=== PATIENT | male | born 1940 | race Caucasian/White ===

== ENCOUNTER 2022-08-26 10:56 | Outpatient (OUT) | payer MEDICARE, SELFPAY | END 2022-08-26 10:57 | LOC: WC 10:56 | PROVIDERS: PCP Internal Medicine; Visit Provider Physician Assistant | DX: L60.3 Nail dystrophy (principal) | CPT/HCPCS: 11721 ==

== ENCOUNTER 2022-11-02 18:17 | Emergency (ER) | payer MEDICARE, SELFPAY ==
[2022-11-02 18:14] VITALS: BP 105/51; PULSE 68; RESP 20; TEMP 36.9; O2SAT 97; BMI 35.4
[2022-11-02 18:19] VITALS: O2SAT 98
--- NOTE | 2022-11-02 18:28 | CT_ITS ---
The [address] [address] Patient Name: NAT MOORE MRN: [id number] date: 1940 Sex: M Assigned Patient Location: ER Current Patient Location: ED.MAIN Accession/Order Number: [id number] Exam Date: 11/02/2022 18:40 Report Date: 11/02/2022 19:11 At the request of: SUJIT GR Procedure: CT lumbar spine wo con EXAM: CT lumbar spine wo con HISTORY: fall, low back pain COMPARISON: Lumbar spine CT 09/03/2021 TECHNIQUE: Axial CT imaging is performed. Sagittal and coronal reformatted/reconstructed sequences were additionally performed. FINDINGS: Again demonstrated is multilevel intervertebral disc space narrowing, endplate and facet arthrosis. Multilevel vacuum disc. Vertebral body heights and alignments are unremarkable with no acute change compared with the prior study. Age-related changes of the sacroiliac joints. No visualized prevertebral or paraspinal edema or collection. No visualized muscle hematoma. Age-related muscle atrophy. The superficial subcutaneous soft tissues are free of acute edema, hematoma, mass or cyst. Atherosclerosis of the vascular structures. No visualized intra-abdominal fluid. The kidneys are atrophic. CT/CT lumbar spine wo con IMPRESSION: No visualized acute abnormality Electronically authenticated by: ELIUD KAUR Date: 11/02/2022 19:11
--- NOTE | 2022-11-02 18:28 | ED.BACK1 ---
HPI - Back Pain/Injury General Chief Complaint: Back Pain/Injury Stated Complaint: BACK PAIN Time Seen by Provider: 11/02/22 18:17 Source: patient Mode of arrival: ambulance Limitations: no limitations History of Present Illness HPI Narrative: The patient was feeding the birds at his house, lost his footing and fell back, landing onto his buttocks and developing pain to the low back. No head injury or LOC. He could not get up so EMS was called. No injuries to any of the extremities. he denies any chesk pain, neck pain, headache, mid or upper back pain, pain in the hips or pelvis. Related Data Allergies Allergy/AdvReac Type Severity Reaction Status Date / Time Penicillins Allergy Intermediate Verified 11/02/22 18:13 Exam Narrative Exam Narrative: Nurses note and vital signs reviewed and patient is not hypoxic. General: The patient appears well and in no apparent distress. Patient is resting comfortably on cart. GCS = 15. Skin: Warm, dry, no pallor noted. Head: Normocephalic, atraumatic Neck: Supple, trachea mid-line. Full ROM and no cervical spinal tenderness. Eyes: PERRLA, EOMI ENT: TMs clear, no hemotympanum detected, no blood in posterior oropharynx Cardiovascular: Regular Rate and Rhythm Respiratory: Patient is in no distress, no accessory muscle use, lungs are clear to auscultation, no wheezing, rales or rhonchi Chest Wall: no tenderness, no flail chest, contusion, abrasion, or signs of trauma. Back: No thoracic tenderness to palpation. Midline lumbar tenderness to palpation without step-off. No abrasions or ecchymosis noted to the back or buttocks. Musculoskeletal: no sign of long bone fracture, no tenderness, no swelling. Pulses at femoral, DP, PT, and popliteal were 2+ bilaterally. Moves all four extremities in all modalities with 5/5 strength. 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 Psychiatric: Cooperative Constitutional Vital Signs, click to edit/add: Last Vital Signs Temp 98.5 F 11/02/22 18:14 Pulse 68 11/02/22 18:14 Resp 20 11/02/22 18:14 BP 105/51 11/02/22 18:14 Pulse Ox 98 11/02/22 18:19 O2 Del Method Room Air 11/02/22 18:19 Course Vital Signs Vital signs: Vital Signs Temperature 98.5 F 11/02/22 18:14 Pulse Rate 68 11/02/22 18:14 Respiratory Rate 20 11/02/22 18:14 Blood Pressure 105/51 11/02/22 18:14 Pulse Oximetry 97 11/02/22 18:14 Oxygen Delivery Method Room Air 11/02/22 18:14 Temperature 98.5 F 11/02/22 18:14 Pulse Rate 68 11/02/22 18:14 Respiratory Rate 20 11/02/22 18:14 Blood Pressure 105/51 11/02/22 18:14 Pulse Oximetry 98 11/02/22 18:19 Oxygen Delivery Method Room Air 11/02/22 18:19 MDM - Back Pain/Injury MDM Narrative Medical decision making narrative: Patient sent for CT scanning of the lumber spine. He was ordered to receive Tylenol for the pain. CT pending. Patient signed out to Dr Welch at shift change to review CT result and determine appropriate disposition. Discharge Plan Discharge Chief Complaint: Back Pain/Injury Clinical Impression: Low back pain Patient Disposition: Still a Patient Referrals: JASON CRUZ [Primary Care Provider] - 1 week
[2022-11-02] MEDS: ACETAMINOPHEN 500 MG TABLET 1000 MG PO (18:59)
--- NOTE | 2022-11-02 19:20 | PC.NURSE ---
States chronic back pain but today worse since fall. Tender with palpation at nap of neck and low sacral area.
[2022-11-02 19:22] VITALS: BP 130/54; PULSE 55; RESP 18; O2SAT 100
[2022-11-02 20:16] VITALS: BP 118/54; PULSE 58; RESP 20; O2SAT 100
== END 2022-11-02 23:25 | disposition home or self-care (01) ==
PROVIDERS: Emergency Provider Emergency Medicine; PCP Internal Medicine
DX: M54.50 Low back pain, unspecified (principal); Z91.81 History of falling
CPT/HCPCS: 72131; 99284

== ENCOUNTER 2022-11-04 12:54 | Outpatient (OUT) | payer MEDICARE, SELFPAY | END 2022-11-04 12:55 | disposition home or self-care (01) | LOC: WC 12:54 | PROVIDERS: PCP Internal Medicine; Visit Provider Physician Assistant | DX: L60.3 Nail dystrophy (principal) | CPT/HCPCS: 11721 ==

== ENCOUNTER 2023-01-21 13:59 | Outpatient (OUT) | payer MEDICARE, SELFPAY | END 2023-01-21 14:00 | disposition home or self-care (01) | LOC: WC 13:59 | PROVIDERS: PCP Internal Medicine; Visit Provider Physician Assistant | DX: E11.40 Type 2 diabetes mellitus with diabetic neuropathy, unspecified (principal); E11.65 Type 2 diabetes mellitus with hyperglycemia; L60.3 Nail dystrophy | CPT/HCPCS: 11721 ==

== ENCOUNTER 2023-04-09 13:29 | Outpatient (OUT) | payer MEDICARE, SELFPAY ==
--- OUTSIDE RECORDS SUMMARY | 2023-04-09 13:33 | XMS_ITS | CCD ---
Author Name Unknown Address [id number] [place] [address] Organization [facility] Team Providers Care Vp Platforms Name Role Phone JUAN PABLO ALANIZ Primary Care Physician DR JUAN PABLO ALANIZ Primary Care Unavailable LUCIAN ., AI Admitting Unavailable LUCIAN ., AI Attending Unavailable KOBY ., ADELAIDA MORGAN Consulting UnavailMANDIE Burdick Attending Unavailable MANDIE NOBLE Admitting Unavailable ANTHONY, DR GOMEZ Primary Care Unavailable MANDIE NOBLE Admitting Unavailable MANDIE NOBLE Attending Unavailable ANTHONY, DR GOMEZ Primary Care Unavailable OMAR, DR SPARKLE Schultz Consulting Unavailable MAILE ., DR BECKETT Admitting Unavailable MAILE ., DR BECKETT Attending Unavailable ANTHONY, DR GOMEZ Primary Care Unavailable ANTHONY, DR GOMEZ Primary Care Unavailable CARMINE, DR YAKELIN Lucas Consulting Unavailabl e CARMINE, DR YAKELIN Lucas Admitting Unavailabl e CARMINE, DR YAKELIN Lucas Attending Unavailabl e MAYITO ., CAROLIN Consulting Unavailable SHELLIE GIBSON Consulting Unavailable ZHANG ., DR VINH Freeman Attending Unavailable ANTHONY, DR GOMEZ Primary Care Unavailable ZHANG ., DR VINH Freeman Admitting Unavailable MANDIE NOBLE Attending Unavailable MANDIE NOBLE Admitting Unavailable ANTHONY, DR GOMEZ Primary Care Unavailable ZHANG ., DR VINH Freeman Attending Unavailable ANTHONY, DR GOMEZ Primary Care Unavailable ZHANG ., DR VINH Freeman Admitting Unavailable ZHANG ., DR VINH Freeman Consulting Unavailable ZHANG ., DR VINH Freeman Consulting Unavailable ZHANG ., DR VINH Freeman Admitting Unavailable HOLCOMB ., DR VINH Freeman Attending Unavailable ANTHONY, DR GOMEZ Primary Care Unavailable ZHANG ., DR VINH Freeman Admitting Unavailable ZHANG ., DR VINH Freeman Attending Unavailable SHELLIE GIBSON Consulting Unavailable ANTHONY, DR GOMEZ Primary Care Unavailable ALANIZ, DR GOMEZ Primary Care Unavailable HOLCOMB ., DR VINH Freeman Attending Unavailable HOLCOMB ., DR VINH Freeman Consulting Unavailable HOLCOMB ., DR VINH Freeman Admitting Unavailable ALANIZ, DR GOMEZ Primary Care Unavailable ROJAS ., SHELLIE Consulting Unavailable HOLCOMB ., DR VINH Freeman Admitting Unavailable HOLCOMB ., DR VINH Freeman Attending Unavailable HOLCOMB ., DR VINH Freeman Consulting Unavailable HOLCOMB ., DR VINH Freeman Admitting Unavailable HOLCOMB ., DR VINH Freeman Attending Unavailable ALANIZ, DR GOMEZ Primary Care Unavailable ALANIZ, DR GOMEZ Consulting Unavailable HOLCOMB ., DR VINH Freeman Admitting Unavailable HOLCOMB ., DR VINH Freeman Attending Unavailable ALANIZ, DR GOMEZ Primary Care Unavailable HOLCOMB ., DR VINH Freeman Consulting Unavailable ROJAS ., SHELLIE Consulting Unavailable HOLCOMB ., DR VINH Freeman Consulting Unavailable HOLCOMB ., DR VINH Freeman Admitting Unavailable HOLCOMB ., DR VINH Freeman Attending Unavailable ALANIZ, DR GOMEZ Primary Care Unavailable HAY ., DR BECKETT Consulting Unavailable HAY ., DR BECKETT Admitting Unavailable HAY ., DR BECKETT Attending Unavailable ALANIZ, DR GOMEZ Primary Care Unavailable HOLCOMB ., DR VINH Freeman Attending Unavailable ALANIZ, DR GOMEZ Primary Care Unavailable HOLCOMB ., DR VINH Freeman Admitting Unavailable ALANIZ, DR GOMEZ Primary Care Unavailable ALANIZ, DR GOMEZ Primary Care Unavailable LUCIAN ., AI Admitting Unavailable LUCIAN ., AI Attending Unavailable LUCIAN ., AI Consulting Unavailable ELIUD KAUR Consulting Unavailable ANTHONY, DR GOMEZ Primary Care Unavailable AIDE, MANDIE Goodman Admitting Unavailable AIDE, MANDIE Goodman Attending Unavailable ANTHONY, DR GOMEZ Primary Care Unavailable SAMANTHA, DR SAURABH Schultz Consulting Unavailable OMAR, DR SPARKLE Schultz Admitting Unavailable OMAR, DR SPARKLE Schultz Attending Unavailable LUCIAN ., AI Consulting Unavailable HOLCOMB ., DR VINH Freeman Admitting Unavailable HOLCOMB ., DR VINH Freeman Attending Unavailable ALANIZ, DR GOMEZ Primary Care Unavailable HOLCOMB ., DR VINH Freeman Attending Unavailable ALANIZ, DR GOMEZ Primary Care Unavailable HOLCOMB ., DR VINH Freeman Consulting Unavailable HOLCOMB ., DR VINH Freeman Admitting Unavailable ALANIZ, DR GOMEZ Primary Care Unavailable LAKSHMIPATHY ., NARENDRANATH Admitting Yasmeen vailable LAKSHMIPATHY ., NARANAATH Attending Yasmeen vailable ANTHONY, DR GOMEZ Primary Care Unavailable AIDE, MANDIE Goodman Admitting Unavailable AIDE, MANDIE Goodman Attending Unavailable ANTHONY, JUAN PABLO Basilio Attending Unavailable CHET SANDOVAL Attending Unavailable Umer RUFFIN Attending Unavailable Umer RUFFIN Attending Unavailable JONATHAN PINTO Attending Unavailable Umer RUFFIN Attending Unavailable JONATHAN PINTO Attending Unavailable Allergies Allergy Classification Reported Allergen(s) Allergy Type Date of Onset Reaction(s) Facility (7 sources) Penicillin; Translations: [penicillin] Drug Allergy 12-01-2021 Hives [facility] (2 sources) Penicillins Drug allergy (disorder) [facility] Repository Medications Current Medications Medication Drug Class(es) Dates Sig (Normalized) Sig (Original) allopurinol 300 mg oral tablet (5 sources) Xanthine Oxidase Inhibitor Start: 01-17-2021 take 1 mg by mouth once daily allopurinol 300 mg Tab mg tab(s), Oral, Daily, Refills(s) 0 Start Date: 01/17/21 Status: Ordered dicyclomine hydrochloride 20 mg oral tablet (5 sources) Anticholinergic Start: 01-17-2021 take 1 mg by mouth four times daily dicyclomine 20 mg Tab mg tab(s), Oral, QID, Refills(s) 0 Start Date: 01/17/21 Status: Ordered Docusate (5 sources) Start: 01-17-2021 docusate sodium Refills(s) 0 Start Date: 01/17/21 Status: Ordered donepezil hydrochloride 5 mg oral tablet (5 sources) Start: 01-17-2021 take 1 mg by mouth once daily at bedtime donepezil 5 mg Tab mg tab(s), Oral, Once a day (at bedtime), Refills(s) 0 Start Date: 01/17/21 Status: Ordered empagliflozin 10 mg / linagliptin 5 mg oral tablet (5 sources) Dipeptidyl Peptidase 4 Inhibitor, Sodium-Glucose Cotransporter 2 Inhibitor Start: 01-17-2021 take 1 tablet by mouth once daily in the morning Glyxambi 10 mg-5 mg oral tablet tab(s), Oral, qAM, Refill(s) 0 Start Date: 01/17/21 Status: Ordered gabapentin 100 mg oral capsule (5 sources) Anti-epileptic Agent Start: 01-17-2021 take 1 mg by mouth three times daily gabapentin 100 mg Cap mg cap(s), Oral, TID, Refills(s) 0 Start Date: 01/17/21 Status: Ordered glipiZIDE 10 mg oral tablet (5 sources) Sulfonylurea Start: 01-17-2021 take 1 mg by mouth once daily glipiZIDE 10 mg Tab mg tab(s), Oral, Daily, Refills(s) 0 Start Date: 01/17/21 Status: Ordered 24 hr metoprolol succinate 100 mg extended release oral tablet (5 sources) beta-Adrenergic Callum Start: 01-17-2021 take 1 mg by mouth once daily metoprolol 100 mg ER Tab mg tab(s), Oral, Daily, Refills(s) 0 Start Date: 01/17/21 Status: Ordered solifenacin succinate 10 mg oral tablet (2 sources) Cholinergic Muscarinic Antagonist Start: 09-16-2022 End: 09-11-2023 take 1 tablet by mouth once daily Vesicare 10 mg Tab 10 mg = 1 tab(s), Oral, Daily, X 30 day(s), # 30 tab(s), Refills(s) 11, Pharmacy: [facility], 167, cm, 09/16/22 15:10:00 EDT, Height/Length Dosing, 120, kg, 09/16/22 15:10:00 EDT, Weight Dosing Start Date: 09/16/22 Stop Date: 09/11/23 Status: Ordered Start: 04-26-2022 take 1 tablet by shannon th once daily Vesicare 5 mg Tab 5 mg = 1 tab(s), Oral, Daily, # 30 tab(s), Refills(s) 11, Pharmacy: [facility], 174, cm, 12/03/21 13:40:00 EDT, Height/Length Dosing, 112, kg, 12/03/21 13:40:00 EDT, Weight Dosing Start Date: 04/26/22 Status: Ordered tamsulosin hydrochloride 0.4 mg oral capsule (5 sources) alpha-Adrenergic Callum Start: 10-25-2021 take 1 capsule by mouth once daily Flomax 0.4 mg Cap 0.4 mg = 1 cap(s), Oral, Daily, # 90 cap(s), Refills(s) 3, Pharmacy: [facility], 174, cm, 09/03/21 13:40:00 EDT, Height/Length Dosing, 112.5, kg, 09/03/21 13:40:00 EDT, Weight Dosing Start Date: 10/25/21 Status: Ordered Start: 07-03-2021 take 1 capsule by mo uth once daily Flomax 0.4 mg Cap 0.4 mg = 1 cap(s), Oral, Daily, # 30 cap(s), Refills(s) 3, Pharmacy: [facility], 174, cm, 07/17/20 5:39:00 EDT, Height/Length Dosing, 112.5, kg, 07/17/20 5:39:00 EDT, Weight Dosing Start Date: 07/03/21 Status: Ordered 24 hr tolterodine tartrate 4 mg extended release oral capsule (4 sources) Cholinergic Muscarinic Antagonist Start: 01-17-2021 take 1 capsule by mouth once daily tolterodine 4 mg Cap-ER 4 mg = 1 cap(s), Oral, Daily, # 30 cap(s), Refills(s) 11, Pharmacy: [facility], 174, cm, 09/03/21 13:40:00 EDT, Height/Length Dosing, 112.5, kg, 09/03/21 13:40:00 EDT, Weight Dosing Start Date: 09/03/21 Status: Ordered Problems Active Problems Problem Classification Problem Date Documented Date Episodic/Chronic Acute and unspecified renal failure (1 source) Acute kidney failure, unspecified; Translations: [ACUTE KIDNEY FAILURE UNSPECIFIED] Onset: 07-31-2022 Episodic Chronic obstructive pulmonary disease and bronchiectasis (1 source) Chronic obstructive pulmonary disease, unspecified; Translations: [COPD UNSPECIFIED] Onset: 03-06-2022 Chronic Diabetes mellitus with complications (4 sources) Type 2 diabetes mellitus with diabetic neuropathy, unspecified; Translations: [Type 2 diabetes mellitus with other circulatory complications] Onset: 10-04-2021 Chronic Diabetes mellitus without complication (6 sources) Diabetes mellitus; Translations: [Type 2 diabetes mellitus without complications] Onset: 07-31-2022 07-17-2020 Chronic Diverticulosis and diverticulitis (5 sources) Diverticulitis 01-17-2021 Chronic Esophageal disorders (1 source) Gastro-esophageal reflux disease without esophagitis; Translations: [GERD WITHOUT ESOPHAGITIS] Onset: 12-11-2021 Chronic Essential hypertension (6 sources) Hypertensive disorder; Translations: [Essential (primary) hypertension] Onset: 03-06-2022 01-17-2021 Chronic Genitourinary symptoms and ill-defined conditions (8 sources) Urge incontinence; Translations: [Urge incontinence of urine] Onset: 12-03-2021 Chronic Genitourinary symptoms and ill-defined conditions (20 sources) Increased frequency of urination; Translations: [Frequency of micturition] Onset: 09-03-2021 Episodic Hyperplasia of prostate (13 sources) Benign prostatic hypertrophy with outflow obstruction; Translations: [Benign prostatic hyperplasia with lower urinary tract symptoms] Onset: 09-03-2021 Chronic Other aftercare (1 source) Other retirement (current) drug therapy; Translations: [OTH HALFWAY CURRENT DRUG THERAPY] Onset: 07-31-2022 Episodic Other aftercare (1 source) 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 terminal 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 controller (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) use of oral hypoglycemic drugs; Translations: [CERAMICS INSTRUCTOR USE ORAL HYPOGLYCEMIC DX] Onset: 07-31-2022 Episodic Other connective tissue disease (5 sources) Calcaneal spur 01-17-2021 Episodic Other connective tissue disease (4 sources) Other muscle spasm; Translations: [OTHER MUSCLE SPASM] Onset: 05-23-2022 Episodic Other diseases of veins and lymphatics (1 source) Lymphedema, not elsewhere classified; Translations: [LYMPHEDEMA NOT ELSEWHERE CLASSIFIED] Onset: 12-11-2021 Chronic Other lower respiratory disease (5 sources) Nodule of lung 01-17-2021 Episodic Other lower respiratory disease (1 source) Shortness of breath; Translations: [SHORTNESS OF BREATH] Onset: 07-31-2022 Episodic Other nervous system disorders (5 sources) Neuropathy 01-17-2021 Chronic Other nervous system disorders (1 source) Other chronic pain; Translations: [OTHER CHRONIC PAIN] Onset: 04-18-2022 Chronic Other skin disorders (5 sources) Nail dystrophy; Translations: [NAIL DYSTROPHY] Onset: 04-30-2022 Episodic Residual codes; unclassified (5 sources) Amnesia 01-17-2021 Episodic Residual codes; unclassified (5 sources) Swelling - edema - symptom 01-17-2021 Episodic Screening and history of mental health and substance abuse codes (1 source) Personal history of nicotine dependence; Translations: [PERSONAL HISTORY OF NICOTINE DEPEND] Onset: 07-31-2022 Episodic Spondylosis; intervertebral disc disorders; other back problems (10 sources) Other intervertebral disc degeneration, lumbar region; Translations: [Spondylosis without myelopathy or radiculopathy, lumbar region] Onset: 12-13-2021 Chronic Substance-related disorders (5 sources) Smoker 01-19-2021 Chronic Comment on above: Added secondary to d ocumentation in Social History. Unclassified (5 sources) Finding of sensation of bladder 01-19-2021 Unclassified (3 sources) COUGH, UNSPECIFIED; Translations: [COUGH, UNSPECIFIED] Onset: 07-31-2022 Unclassified (1 source) ACIDOSIS UNSPECIFIED; Translations: [ACIDOSIS UNSPECIFIED] Onset: 07-31-2022 Unclassified (1 source) CONTACT W/AND (SUSP) EXPOS COVID-19; Translations: [CONTACT W/AND (SUSP) EXPOS COVID-19] Onset: 07-31-2022 Unclassified (4 sources) LOW BACK PAIN, UNSPECIFIED; Translations: [LOW BACK PAIN, UNSPECIFIED] Onset: 01-25-2022 Unclassified (1 source) PERSONAL HISTORY OF COVID-19; Translations: [PERSONAL HISTORY OF COVID-19] Onset: 03-06-2022 Unclassified (1 source) CERAMICS INSTRUCTOR INJECT NONINSULN ANTIDIAB; Translations: [CERAMICS INSTRUCTOR INJECT NONINSULN ANTIDIAB] Onset: 03-02-2022 Past or Other Problems Problem Classification Problem Date Documented Date Episodic/Chronic Mycoses (5 sources) Tinea unguium; Translations: [TINEA UNGUIUM] Onset: 11-29-2021 Episodic Other connective tissue disease (1 source) Muscle wasting and atrophy, not elsewhere classified, unspecified site; Translations: [MUSCLE WASTING ATROPHY NEC UNS SITE] Onset: 10-04-2021 Episodic Other diseases of veins and lymphatics (1 source) Venous insufficiency (chronic) (peripheral); Translations: [VENOUS INSUFF CHRONIC PERIPHERAL] Onset: 12-11-2021 Episodic Other skin disorders (5 sources) Corns and callosities; Translations: [CORNS AND CALLOSITIES] Onset: 12-11-2021 Episodic Other skin disorders (1 source) Other specified disorders of the skin and subcutaneous tissue; Translations: [OTH SPEC D/O SKIN AND SUBQ TISSUE] Onset: 04-30-2022 Episodic Other skin disorders (1 source) Other nail disorders; Translations: [OTHER NAIL DISORDERS] Onset: 03-02-2022 Episodic Other skin disorders (1 source) Xerosis cutis; Translations: [XEROSIS CUTIS] Onset: 03-02-2022 Episodic Other skin disorders (1 source) Other disorders of skin and subcutaneous tissue in diseases classified elsewhere; Translations: [OTH D/O SKN SUBQ TISS DZ CLASS ELSW] Onset: 12-11-2021 Episodic Other upper respiratory infections (5 sources) Acute laryngitis; Translations: [Acute upper respiratory infection, unspecified] Onset: 03-03-2022 Episodic Residual codes; unclassified (1 source) Localized edema; Translations: [LOCALIZED EDEMA] Onset: 04-30-2022 Episodic Spondylosis; intervertebral disc disorders; other back problems (10 sources) Muscle spasm of back; Translations: [Intervertebral disc disorders with radiculopathy, lumbar region] Onset: 09-15-2021 Episodic Unclassified (1 source) COUGH, UNSPECIFIED; Translations: [COUGH, UNSPECIFIED] Onset: 07-26-2022 Unclassified (1 source) LOW BACK PAIN, UNSPECIFIED; Translations: [LOW BACK PAIN, UNSPECIFIED] Onset: 01-22-2022 Results Test Name Value Interpretation Reference Range Facility Ambulatory Visit Summaryon 0 09-16-2022 Ambulatory Visit Summary ANT MALONE :1940 Visit Date:09/16/2022 Ambulatory Visit Instructions Your Diagnosis Urge incontinence BPH with obstruction/lower urinary tract symptoms Your Care Team Attending Physician - ERIK MENG, Umer Schultz Primary Care Physician - ANTHONY MENG, JUAN PABLO Basilio This Is Your Medications List solifenacin (Vesicare 10 mg Tab) tamsulosin (Flomax 0.4 mg Cap) Contact prescribing physician if questions or concerns allopurinol (allopurinol 300 mg Tab) dicyclomine (dicyclomine 20 mg Tab) docusate (docusate sodium) donepezil (donepezil 5 mg Tab) empagliflozin-linaglipti n (Glyxambi 10 mg-5 mg oral tablet) gabapentin (gabapentin 100 mg Cap) glipiZIDE (glipiZIDE 10 mg Tab) metoprolol (metoprolol 100 mg ER Tab) Procedures Performed EGD - Esophagogastroduodenosco py. Discharge Vitals Heart Rate (Peripheral) 70 Respiratory Rate 16 Blood Pressure 130/74 Height 167 cm Height 66 in Weight 120 kg Weight 264 lb BMI 43.03 What to do next Scheduled Follow-Up Appointments Friday 8:30 AM EDT With: ERIK MENG, Umer Schultz Where: [facility] [place] [facility] Patient Educationon 09-17-19 Patient Education Obstetrics and Gynecology Overactive Bladder, Adult Overactive bladder is a condition in which a person has a sudden and frequent need to urinate. A person might also leak urine if he or she cannot get to the bathroom fast enough (urinary incontinence). Sometimes, symptoms can interfere with work or social activities. What are the causes? Overactive bladder is associated with poor nerve signals between your bladder and your brain. Your bladder may get the signal to empty before it is full. You may also have very sensitive muscles that make your bladder squeeze too soon. This condition may also be caused by other factors, such as: ? Medical conditions: ? Urinary tract infection. ? Infection of nearby tissues. ? Prostate enlargement. ? Bladder stones, inflammation, or tumors. ? Diabetes. ? Muscle or nerve weakness, especially from these conditions: ? A spinal cord injury. ? Stroke. ? Multiple sclerosis. ? Parkinson's disease. ? Other causes: ? Surgery on the uterus or urethra. ? Drinking too much caffeine or alcohol. ? Certain medicines, especially those that eliminate extra fluid in the body (diuretics). ? Constipation. What increases the risk? You may be at greater risk for overactive bladder if you: ? Are an older adult. ? Smoke. ? Are going through menopause. ? Have prostate problems. ? Have a neurological disease, such as stroke, dementia, Parkinson's disease, or multiple sclerosis (MS). ? Eat or drink alcohol, spicy food, caffeine, and other things that irritate the bladder. ? Are overweight or obese. What are the signs or symptoms? Symptoms of this condition include a sudden, strong urge to urinate. Other symptoms include: ? Leaking urine. ? Urinating 8 or more times a day. ? Waking up to urinate 2 or more times overnight. How is this diagnosed? This condition may be diagnosed based on: ? Your symptoms and medical history. ? A physical exam. ? Blood or urine tests to check for possible causes, such as infection. You may also need to see a health care provider who specializes in urinary tract problems. This is called a urologist. How is this treated? Treatment for overactive bladder depends on the cause of your condition and whether it is mild or severe. Treatment may include: ? Bladder training, such as: ? Learning to control the urge to urinate by following a schedule to urinate at regular intervals. ? Doing Kegel exercises to strengthen the pelvic floor muscles that support your bladder. ? Special devices, such as: ? Biofeedback. This uses sensors to help you become aware of your body's signals. ? Electrical stimulation. This uses electrodes placed inside the body (implanted) or outside the body. These electrodes send gentle pulses of electricity to strengthen the nerves or muscles that control the bladder. ? Women may use a plastic device, called a pessary, that fits into the vagina and supports the bladder. ? Medicines, such as: ? Antibiotics to treat bladder infection. ? Antispasmodics to stop the bladder from releasing urine at the wrong time. ? Tricyclic antidepressants to relax bladder muscles. ? Injections of botulinum toxin type A directly into the bladder tissue to relax bladder muscles. ? Surgery, such as: ? A device may be implanted to help manage the nerve signals that control urination. ? An electrode may be implanted to stimulate electrical signals in the bladder. ? A procedure may be done to change the shape of the bladder. This is done only in very severe cases. Follow these instructions at home: Eating and drinking ? Make diet or lifestyle changes recommended by your health care provider. These may include: ? Drinking fluids throughout the day and not only with meals. ? Cutting down on caffeine or alcohol. ? Eating a healthy and balanced diet to prevent constipation. This may include: ? Choosing foods that are high in fiber, such as beans, whole grains, and fresh fruits and vegetables. ? Limiting foods that are high in fat and processed sugars, such as fried and sweet foods. Lifestyle ? Lose weight if needed. ? Do not use any products that contain nicotine or tobacco. These include cigarettes, chewing tobacco, and vaping devices, such as e-cigarettes. If you need help quitting, ask your health care provider. General instructions ? Take [id number] and prescription medicines only as told by your health care provider. ? If you were prescribed an antibiotic medicine, take it as told by your health care provider. Do not stop taking the antibiotic even if you start to feel better. ? Use any implants or pessary as told by your health care provider. ? If needed, wear pads to absorb urine leakage. ? Keep a log to track how much and when you drink, and when you need to urinate. This will help your health care provider monitor yo (more content not included)... [facility] Urology Office/Clinic Noteon 09-16-2022 Urology Office/Clinic Note Chief Complaint 4 month f/u HPI Staff 4 month f/u. Previous dx of BPH with urinary obstruction, feeling of incomplete bladder emptying and urge incontinence. Pt continues taking Tamsulosin 0.4mg QD and Solifenacin 5mg QD. Dysuria: no Incomplete bladder emptying: states he feels empty Hematuria: no Frequency: states yes Urgency: no Nocturia: 2x Stream: good stream Leaking: no Post void dripping: yes Wearing pads/ Depends: no Urge incontinence: no Stress incontinence: no Incontinence without Sensory Awareness: no Abdominal pain: no Flank pain: no Sexual complaints: no History of Present Illness Tests reviewed: reviewed UA. I have reviewed the previous health record information and history for this patient from Dr. Ruffin. I have reviewed and verified the staff HPI to be accurate for this encounter. There have been no associated fever, chills, flank pain, or blood in the urine. Denies any urinary infections since last encounter. Review of Systems PHQ Score Initial Depression Screen Score: 0 ROS - Provider Constitutional: denies weight loss, denies hot flashes. Eyes: denies eye problems. Gastrointestinal: denies nausea, denies vomiting. Cardiovascular: denies chest pain or angina. Integumentary: no dryness Musculoskeletal: denies musculoskeletal symptoms. ENMT: denies otolaryngeal symptoms. Respiratory: no shortness of breath. Heme/Lymph: denies easy bleeding tendency, denies easy bruising tendency. Psychiatric: no confusion, no anxiety. Genitourinary: See HPI. Physical Exam Vitals & Measurements HR: 70(Peripheral) RR: 16 BP: 130/74 HT: 66 in HT: 167 cm WT: 120 kg WT: 264 lb BMI: 43.03 General Appearance: alert, no distress, well nourished, well developed male. Genitourinary: normal scrotum, normal testes, normal urethra, normal epididymis, normal vas deferens/spermatic cord. Flank Pain: none. Bladder: nonpalpable. Assessment/Plan Pt here with today. 1. Urge incontinence (N39.41: Urge incontinence) Tolterodine was cost prohibitive. Started Vesicare 5 mg qd at prior OV. Still having UUI. Does not feel he has had any improvement with med. States he has bad memory and does not recall what meds he is taking. Follow up 3 mos no labs or sooner if needed. Pt understands and agrees with plan. -Increase Vesicare from 5 mg to 10 mg qd. 2. BPH with obstruction/lower urinary tract symptoms (N40.1: Benign prostatic hyperplasia with lower urinary tract symptoms) No sample provided for UA today. Taking Flomax 0.4 mg qd. Typically does not have difficult with urination. Nocturia 1-2x/night. Follow-up With When Contact Information ERIK MENG, Umer Schultz, [facility] [address], [place] [address]- Additional Instructions: 3 mos to increasing vesicare Patient Education Overactive Bladder, Adult I, Fawn Yost, personally scribed for Dr. Ruffin on 09/16/2022 15:39:58. . Documentation recorded by the scribe, Fawn Yost, accurately reflects the services(s) I performed and decisions made by me. Authenticated by Dr. Ruffin on 09/16/2022 15:42:30. Problem List/Past Medical History Ongoing BPH with obstruction/lower urinary tract symptoms Calcaneal spur Diverticulitis Edema Feeling of incomplete bladder emptying Hypertension Lung nodule Memory loss Neuropathy Nocturia Smoker Urge incontinence Urinary frequency Urinary urgency Historical Diabetes mellitus Procedure/Surgical History EGD - Esophagogastroduodenosco py. Medications allopurinol 300 mg Tab, Oral, Daily dicyclomine 20 mg Tab, Oral, QID docusate sodium donepezil 5 mg Tab, Oral, Once a day (at bedtime) Flomax 0.4 mg Cap, 0.4 mg= 1 cap(s), Oral, Daily, 3 refills gabapentin 100 mg Cap, Oral, TID glipiZIDE 10 mg Tab, Oral, Daily Glyxambi 10 mg-5 mg oral tablet, Oral, qAM metoprolol 100 mg ER Tab, Oral, Daily Vesicare 5 mg Tab, 5 mg= 1 tab(s), Oral, Daily, 11 refills Allergies penicillin (Hives) Social History Alcohol - Denies Alcohol Use, 01/19/2021 Tobacco Never (less than 100 in lifetime), Former smoker, quit more than 30 days ago Tobacco Use:. Never Smokeless Tobacco Use:., 04/26/2022 Family History Primary malignant neoplasm of lung: Father. Immunizations Vaccine Date Status influenza virus vaccine, inactivated 02/22/2022 Recorded SARS-CoV-2 (COVID-19) mRNA BNT-162b2 vax 12/21/2020 Recorded SARS-CoV-2 (COVID-19) mRNA BNT-162b2 vax 11/30/2020 Recorded influenza virus vaccine, inactivated 01/24/2020 Recorded influenza virus vaccine, inactivated 03/04/2019 Recorded pneumococcal 23-valent vaccine 08/05/2018 Recorded influenza virus vaccine, inactivated 12/18/2016 Recorded influenza virus vaccine, inactivated 12/06/2015 Recorded influenza virus vaccine, inactivated 12/21/2014 Recorded Normal [facility] Comment on above: Result Comment: Elec tronically Signed By: Umer RUFFIN MD\.br\Date and Time Signed: 09/16/22 15:42 EDT\.br\Electronically Co-Signed By: Fawn Yost\.br\Date and Time Co-Signed: 09/16/22 15:41 EDT BNPon 07-27-2022 Natriuretic peptide B (Bld) [Mass/Vol] 178.0 pg/mL Normal <=1,800.0 [facility] Comment on above: Performed By: #### C MP, BNP, CMADM #### [facility] [address] [address] [address] Loyd Parks CARDIAC SPARKLE ADMITon 023 CK [Catalytic activity/Vol] 50 U/L Normal 39-308 [facility] Comment on above: Performed By: #### C MP, BNP, CMADM #### [facility] [address] [address] [address] Loyd Parks CK.MB [Mass/Vol] 0.83 ng/mL Normal <=3.60 [facility] Comment on above: Performed By: #### C MP, BNP, CMADM #### [facility] [address] [address] [address] Loyd Parks HSTROP 6.3 pg/mL Normal 4.0-76.1 [facility] Comment on above: Result Comment: CUT- OFF POINTS HAVE BEEN ESTABLISHED BASED ON THE FOURTH UNIVERSAL DEFINITIONS OF MYOCARDIAL INFARCTION. THE UPPER REFERENCE LIMIT (URL) OF TROPONIN, DEFINED THE 99TH PERCENTILE OF cTnI DISTRIBUTION IN A REFERENCE POPULATION, HAS BEEN CONFIRMED THE DECISION THRESHOLD FOR ID DIAGNOSIS. Performed By: #### C MP, BNP, CMADM #### [facility] [address] [place] [address] Dr. Loyd Parks WM 121 ng/mL Critically high 16-96 [facility] Comment on above: Performed By: #### C MP, BNP, CMADM #### [facility] [address] [address] [address] Loyd Parks CBC AUTO DIFFon 07-27-2022 BASO # 0.1 103/ul Normal 0.0-0.1 [facility] Comment on above: Performed By: #### C BC #### [facility] [address] [address] [address] Loyd Parks Basophils/100 WBC (Bld) 0.6 % Normal 0.2-2.0 [facility] Comment on above: Performed By: #### C BC #### [facility] [address] [address] [address] Loyd Parks EO # 0.5 103/ul Normal 0.0-0.7 [facility] Comment on above: Performed By: #### C BC #### [facility] [address] [address] [address] Loyd Parks Eosinophils/100 WBC (Bld) 4.8 % Normal 0.9-7.0 [facility] Comment on above: Performed By: #### C BC #### [facility] [address] [place] [address] Dr. Loyd Parks Erythrocyte distribution width (RBC) [Ratio] 13.5 % Normal 11.0-15.0 [facility] Comment on above: Performed By: #### C BC #### [facility] [address] [place] [address] Dr. Loyd Parks Hematocrit (Bld) [Volume fraction] 39.7 % Critically low 42.0-54.0 [facility] Comment on above: Performed By: #### C BC #### [facility] [address] [place] [address] Dr. Loyd Parks Hemoglobin (Bld) [Mass/Vol] 13.1 g/dL Critically low 14.0-18.0 [facility] Comment on above: Performed By: #### C BC #### [facility] [address] [place] [address] Dr. Loyd Parks IG # 0.05 10e3/ul Critically high 0.00-0.03 [facility] Comment on above: Performed By: #### C BC #### [facility] [address] [place] [address] Dr. Loyd Parks IG % 0.5 % Normal 0.0-0.5 [facility] Comment on above: Performed By: #### C BC #### [facility] [address] [place] [address] Dr. Loyd Parks LYMPH # 1.4 103/ul Normal 1.2-3.8 [facility] Comment on above: Performed By: #### C BC #### [facility] [address] [place] [address] Dr. Loyd Pakrs Lymphocytes/100 WBC (Bld) 14.1 % Critically low 20.5-60.0 [facility] Comment on above: Performed By: #### C BC #### [facility] [address] [place] [address] Dr. Loyd Parks MANUAL DIFF REQ NO Normal [facility] Comment on above: Performed By: #### C BC #### [facility] [address] [address] [address] Loyd Parks MCH (RBC) [Entitic mass] 31.6 pg Normal 25.9-34.0 [facility] Comment on above: Performed By: #### C BC #### [facility] [address] [place] [address] Dr. Loyd Parks MCHC (RBC) [Mass/Vol] 33.0 g/dL Normal 29.9-35.2 [facility] Comment on above: Performed By: #### C BC #### [facility] [address] [place] [address] Dr. Loyd Parks MCV (RBC) [Entitic vol] 95.7 fL Critically high 80.0-94.0 [facility] Comment on above: Performed By: #### C BC #### [facility] [address] [place] [address] Dr. Loyd Parks MONO # 1.0 103/ul Critically high 0.3-0.8 [facility] Comment on above: Performed By: #### C BC #### [facility] [address] [place] [address] Dr. Loyd Parks Monocytes/100 WBC (Bld) 9.7 % Normal 1.7-12.0 [facility] Comment on above: Performed By: #### C BC #### [facility] [address] [place] [address] Dr. Loyd Parks NEUT # 7.2 103/ul Critically high 1.4-6.5 [facility] Comment on above: Performed By: #### C BC #### [facility] [address] [place] [address] Dr. Loyd Parks Neutrophils/100 WBC (Bld) 70.3 % Normal 43.0-75.0 [facility] Comment on above: Performed By: #### C BC #### [facility] [address] [place] [address] Dr. Loyd Parks Platelet mean volume (Bld) [Entitic vol] 10.8 fL Normal 9.5-13.5 [facility] Comment on above: Performed By: #### C BC #### [facility] [address] [address] [address] Loyd Parks PLT 199 103/ul Normal 150-450 [facility] Comment on above: Performed By: #### C BC #### [facility] [address] [id number] Loyd Parks RBC 4.15 106/ul Critically low 4.70-6.10 [facility] Comment on above: Performed By: #### C BC #### [facility] [address] [address] [address] Loyd Parks WBC 10.2 103/ul Normal 4.0-11.0 [facility] Comment on above: Performed By: #### C BC #### [facility] [address] [place] [address] Dr. Loyd Parks CULTURE BLOODon 07-27-2022 Microscopic examination of blood, culture Culture Observations: NO GROWTH AT 5 DAYS. Normal [facility] Comment on above: Performed By: #### E RUR #### [facility] [address] [place] [address] Dr. Loyd Parks [facility]on SARS-CoV-2 (COVID-19) RNA SAUNDRA+probe Ql (Unsp spec) Not detected Normal NOT DETECTED [facility] Comment on above: Result Comment: This test is not yet approved or cleared by the [place] FDA. When there are no FDA-approved or cleared tests available, and other criteria are met, FDA can make tests available under an emergency access mechanism called an Emergency Use Authorization (EUA). The EUA for this test is supported by the [employer] of Health and Human Service's (HHS's) declaration that circumstances exist to justify the emergency use of in vitro diagnostics for the detection and/or diagnosis of the virus that causes COVID-19. This EUA will remain in effect (meaning this test can be used) for the duration of the COVID-19 declaration justifying emergency of IVDs, unless it is terminated or revoked by FDA (after which the test may no longer be used). When diagnostic testing is negative, the possibility of a false negative should be considered in the context of a patient's recent exposures and the presence of clinical signs and symptoms consistent with SARS-CoV-2. Performed By: #### E RUR #### [facility] [address] [place] [address] Dr. Loyd Parks LACTATE/LACTIC ACIDon 2022 Lactate [Moles/Vol] 2.2 mmol/L Critically high 0.4-2.0 [facility] Comment on above: Performed By: #### C MP, BNP, CMADM #### [facility] [address] [place] [address] Dr. Loyd Parks PROF 14(COMP METB)on 023 Albumin [Mass/Vol] 3.3 g/dL Critically low 3.4-5.0 [facility] Comment on above: Performed By: #### C MP, BNP, CMADM #### [facility] [address] [place] [address] Dr. Loyd Parks Albumin/Globulin [Mass ratio] 0.9 {ratio} Normal [facility] Comment on above: Performed By: #### C MP, BNP, CMADM #### [facility] [address] [place] [address] Dr. Loyd Parks ALP [Catalytic activity/Vol] 91 U/L Normal 46-116 [facility] Comment on above: Performed By: #### C MP, BNP, CMADM #### [facility] [address] [place] [address] Dr. Loyd Parks ALT [Catalytic activity/Vol] 18 U/L Normal 16-63 [facility] Comment on above: Performed By: #### C MP, BNP, CMADM #### [facility] [address] [place] [address] Dr. Loyd Parks Anion gap [Moles/Vol] 12.2 mmol/L Normal [facility] Comment on above: Performed By: #### C MP, BNP, CMADM #### [facility] [address] [place] [address] Dr. Loyd Parks AST [Catalytic activity/Vol] 15 U/L Normal 15-37 [facility] Comment on above: Performed By: #### C MP, BNP, CMADM #### [facility] [address] [address] [address] Loyd Parks Bilirubin [Mass/Vol] 0.4 mg/dL Normal 0.2-1.0 [facility] Comment on above: Performed By: #### C MP, BNP, CMADM #### [facility] [address] [place] [address] Dr. Loyd Parks Calcium [Mass/Vol] 8.7 mg/dL Normal 8.5-10.1 [facility] Comment on above: Performed By: #### C MP, BNP, CMADM #### [facility] [address] [place] [address] Dr. Loyd Parks Chloride [Moles/Vol] 105 mmol/L Normal 98-107 [facility] Comment on above: Performed By: #### C MP, BNP, CMADM #### [facility] [address] [place] [address] Dr. Loyd Parks CO2 [Moles/Vol] 28.0 mmol/L Normal 21.0-32.0 [facility] Comment on above: Performed By: #### C MP, BNP, CMADM #### [facility] [address] [place] [address] Dr. Loyd Parks Creatinine [Mass/Vol] 2.25 mg/dL Critically high 0.70-1.30 [facility] Comment on above: Performed By: #### C MP, BNP, CMADM #### [facility] [address] [place] [address] Dr. Loyd Parks EGFR-[place]IZ[place] 34 mL/min/1.73m2 Critically low >=60 [facility] Comment on above: Performed By: #### C MP, BNP, CMADM #### [facility] [address] [place] [address] Dr. Loyd Parks EGFR-NON AF CITIZEN [place] 28 mL/min/1.73m2 Critically low >=60 [facility] Comment on above: Performed By: #### C MP, BNP, CMADM #### [facility] [address] [address] [address] Loyd Parks Globulin (S) [Mass/Vol] 3.8 g/dL Normal [facility] Comment on above: Performed By: #### C MP, BNP, CMADM #### [facility] [address] [address] [address] Loyd Parks Glucose [Mass/Vol] 88 mg/dL Normal 74-106 [facility] Comment on above: Performed By: #### C MP, BNP, CMADM #### [facility] [address] [address] [address] Loyd Parks Potassium [Moles/Vol] 4.2 mmol/L Normal 3.5-5.1 [facility] Comment on above: Performed By: #### C MP, BNP, CMADM #### [facility] [address] [address] [address] Loyd Parks Protein [Mass/Vol] 7.1 g/dL Normal 6.4-8.2 [facility] Comment on above: Performed By: #### C MP, BNP, CMADM #### [facility] [address] [address] [address] Loyd Parks Sodium [Moles/Vol] 141 mmol/L Normal 136-145 [facility] Comment on above: Performed By: #### C MP, BNP, CMADM #### [facility] [address] [address] [address] Loyd Parks Urea nitrogen [Mass/Vol] 36.0 mg/dL Critically high 7.0-18.0 [facility] Comment on above: Performed By: #### C MP, BNP, CMADM #### [facility] [address] [address] [address] Loyd Parks Urea nitrogen/Creatinine [Mass ratio] 16.0 mg/mg Normal [facility] Comment on above: Performed By: #### C MP, BNP, CMADM #### [facility] [address] [address] [address] Loyd Parks PROTIMEon 07-27-2022 INR Coag (PPP) [Relative time] 0.95 {INR} Normal [facility] Comment on above: Performed By: #### P T, PTT #### [facility] [address] [place] [address] Dr. Loyd Parks INR GUIDELINES SEE BELOW Normal [facility] Comment on above: Result Comment: MARIE RED INR: 2.0 - 3.0 CONDITIONS NOT LISTED BELOW 2.5 - 3.5 FOR PROSTHETIC HEART VALVE REPLACEMENT 2.5 - 3.5 RECURRENT THROMBOSIS Performed By: #### P T, PTT #### [facility] [address] [place] [address] Dr. Loyd Parks PT Coag (PPP) [Time] 10.1 s Normal 9.0-11.6 [facility] Comment on above: Performed By: #### P T, PTT #### [facility] [address] [place] [address] Dr. Loyd Parks PTTon 07-27-2022 aPTT Coag (Bld) [Time] 27.3 s Normal 22.3-36.2 [facility] Comment on above: Performed By: #### P T, PTT #### [facility] [address] [place] [address] Dr. Loyd Parks SYMPTOMATIC COVID-19 ANTIGEN on 07-27-2022 EUA Statement SEE BELOW Normal [facility] Comment on above: Result Comment: This test has not been FDA cleared or approved, but has been authorized by the FDA under an Emergency Use Authorization (EUA) for use by authorized laboratories certified under CLIA that meet the requirements to perform moderate or high complexity testing. This test has been authorized only for the detection of proteins from SARS-CoV-2, not for any other viruses or pathogens. The emergency use of this test is authorized for the duration of the declaration that circumstances exist justifying the authorization of emergency use of in vitro diagnostic tests for detection and/or diagnosis of Covid-19 under section 564(b)(1) of the Act, 21 U.S.C. 360bbb-3(b)(1), unless the declaration is terminated or authorization is revoked sooner. Performed By: #### C VDAGS #### [facility] [address] [address] [address] Loyd Parks SARS-CoV-2 (COVID-19) RNA SAUNDRA+probe Ql (Unsp spec) Negative Normal NEGATIVE [facility] Comment on above: Performed By: #### C VDAGS #### [facility] [address] [address] [address] Loyd Parks XR CHEST 2 Von 07-27-2022 XR CHEST 2 V EXAMINATION: XR CHES T 2 V HISTORY: Productive cough for one month COMPARISON: Portable chest 04/09/2021 TECHNIQUE: PA and lateral chest x-rays FINDINGS: The lung parenchyma is free of consolidation or infiltrate. No pneumothorax or pleural effusion. The cardiac, mediastinal and hilar contours are normal. The visualized osseous structures exhibit no gross abnormality. IMPRESSION: No acute cardiopulmonary abnormality. Electronically authenticated by: ELIUD KAUR Date: 2022-07-26 22:19 Normal [facility] Provider Letteron 06-25-2022 Provider Letter (Inserted Image. Yasmeen ble to display) June 25, 2022 [address]ONE [address] [place] [address] NAT MALONE 1940 Dear Mr. Malone , We have been trying to reach you with no success. You have an appointment with Dr Ruffin on July 22 at 8:45am which will need to be rescheduled since he will be out of the office that day. Please contact the office at the number listed below to get this appointment rescheduled at your earliest convenience. Thank you for your prompt attention to this matter. Please call [phone] as soon as able. Sincerely, [facility] [address], [place] [address] Normal [facility] Ambulatory Visit Summaryon 0 04-26-2022 Ambulatory Visit Summary NAT MALONE :1940 Visit Date:04/26/2022 Ambulatory Visit Instructions Your Diagnosis BPH with obstruction/lower urinary tract symptoms Feeling of incomplete bladder emptying Urge incontinence Tests Performed Urnls Dip Stick Auto w/o Microscopy POC [address] Your Care Team Attending Physician - ERIK MENG, Umer R Primary Care Physician - JUAN PABLO ALANIZ MD This Is Your Medications List solifenacin (Vesicare 5 mg Tab) tamsulosin (Flomax 0.4 mg Cap) Contact prescribing physician if questions or concerns allopurinol (allopurinol 300 mg Tab) dicyclomine (dicyclomine 20 mg Tab) docusate (docusate sodium) donepezil (donepezil 5 mg Tab) empagliflozin-linaglipti n (Glyxambi 10 mg-5 mg oral tablet) gabapentin (gabapentin 100 mg Cap) glipiZIDE (glipiZIDE 10 mg Tab) metoprolol (metoprolol 100 mg ER Tab) [Image Removed: STOP]Stop taking these medications tolterodine (tolterodine 4 mg Cap-ER) Procedures Performed EGD - Esophagogastroduodenosco py. Discharge Vitals Heart Rate (Peripheral) 62 Respiratory Rate 16 Blood Pressure 134/78 What to do next Scheduled Follow-Up Appointments Friday. 2022 8:45 AM EDT With: Umer RUFFIN MD Where: [facility] Patient Educationon 04-26-19 Patient Education Urology Benign Prostatic Hyperplasia Benign prostatic hyperplasia (BPH) is an enlarged prostate gland that is caused by the normal aging process and not by cancer. The prostate is a walnut-sized gland that is involved in the production of semen. It is located in front of the rectum and below the bladder. The bladder stores urine and the urethra is the tube that carries the urine out of the body. The prostate may get bigger as a man gets older. An enlarged prostate can press on the urethra. This can make it harder to pass urine. The build-up of urine in the bladder can cause infection. Back pressure and infection may progress to bladder damage and kidney (renal) failure. What are the causes? This condition is part of a normal aging process. However, not all men develop problems from this condition. If the prostate enlarges away from the urethra, urine flow will not be blocked. If it enlarges toward the urethra and compresses it, there will be problems passing urine. What increases the risk? This condition is more likely to develop in men over the age of 50 years. What are the signs or symptoms? Symptoms of this condition include: ? Getting up often during the night to urinate. ? Needing to urinate frequently during the day. ? Difficulty starting urine flow. ? Decrease in size and strength of your urine stream. ? Leaking (dribbling) after urinating. ? Inability to pass urine. This needs immediate treatment. ? Inability to completely empty your bladder. ? Pain when you pass urine. This is more common if there is also an infection. ? Urinary tract infection (UTI). How is this diagnosed? This condition is diagnosed based on your medical history, a physical exam, and your symptoms. Tests will also be done, such as: ? A post-void bladder scan. This measures any amount of urine that may remain in your bladder after you finish urinating. ? A digital rectal exam. In a rectal exam, your health care provider checks your prostate by putting a lubricated, gloved finger into your rectum to feel the back of your prostate gland. This exam detects the size of your gland and any abnormal lumps or growths. ? An exam of your urine (urinalysis). ? A prostate specific antigen (PSA) screening. This is a blood test used to screen for prostate cancer. ? An ultrasound. This test uses sound waves to electronically produce a picture of your prostate gland. Your health care provider may refer you to a specialist in kidney and prostate diseases (urologist). How is this treated? Once symptoms begin, your health care provider will monitor your condition (active surveillance or watchful waiting). Treatment for this condition will depend on the severity of your condition. Treatment may include: ? Observation and yearly exams. This may be the only treatment needed if your condition and symptoms are mild. ? Medicines to relieve your symptoms, including: ? Medicines to shrink the prostate. ? Medicines to relax the muscle of the prostate. ? Surgery in severe cases. Surgery may include: ? Prostatectomy. In this procedure, the prostate tissue is removed completely through an open incision or with a laparoscope or robotics. ? Transurethral resection of the prostate (TURP). In this procedure, a tool is inserted through the opening at the tip of the penis (urethra). It is used to cut away tissue of the inner core of the prostate. The pieces are removed through the same opening of the penis. This removes the blockage. ? Transurethral incision (TUIP). In this procedure, small cuts are made in the prostate. This lessens the prostate's pressure on the urethra. ? Transurethral microwave thermotherapy (TUMT). This procedure uses microwaves to create heat. The heat destroys and removes a small amount of prostate tissue. ? Transurethral needle ablation (TUNA). This procedure uses radio frequencies to destroy and remove a small amount of prostate tissue. ? Interstitial laser coagulation (ILC). This procedure uses a laser to destroy and remove a small amount of prostate tissue. ? Transurethral electrovaporization (TUVP). This procedure uses electrodes to destroy and remove a small amount of prostate tissue. ? Prostatic urethral lift. This procedure inserts an implant to push the lobes of the prostate away from the urethra. Follow these instructions at home: ? Take lqht-jyp-hjtbjxa and prescription medicines only as told by your health care provider. ? Monitor your symptoms for any changes. Contact your health care provider with any changes. ? Avoid drinking large amounts of liquid before going to bed or out in public. ? Avoid or reduce how much caffeine or alcohol you drink. ? Give yourself time when you urinate. ? Keep all follow-up visits as told by your health care provider. This is important. Contact a health care provider if: ? You have unexplained back pain. ? Your symptoms do not get better with treatment. ? You d (more content not included)... [facility] Office/Clinic Noteon 04-26-2022 Urology Office/Clinic Note Chief Complaint 4m PVR HPI Staff 4m PVR due to Incomplete Bladder Emptying. Additional DX: BPH, Nocturia and Urge Incontinence. *Tamsulosin & Tolterodine therapy- pt thinks he is still taking. Getting up 2x during the night still. Voiding q2hrs during the day. Good stream, thinks he is done then starts to urinate again. Occasional post void dribbling. Urgency with occasional leaking. PVR today 50ml History of Present Illness Tests reviewed: reviewed UA. I have reviewed the previous health record information and history for this patient from Dr. Ruffin. I have reviewed and verified the staff HPI to be accurate for this encounter. There have been no associated fever, chills, flank pain, or blood in the urine. Denies any urinary infections since last encounter. Review of Systems PHQ Score Initial Depression Screen Score: 0 ROS - Provider Constitutional: denies weight loss, denies hot flashes. Eyes: denies eye problems. Gastrointestinal: denies nausea, denies vomiting. Cardiovascular: denies chest pain or angina. Integumentary: no dryness Musculoskeletal: denies musculoskeletal symptoms. ENMT: denies otolaryngeal symptoms. Respiratory: no shortness of breath. Heme/Lymph: denies easy bleeding tendency, denies easy bruising tendency. Psychiatric: no confusion, no anxiety. Genitourinary: denies dysuria, denies hematuria, denies discharge, denies urinary frequency, denies urinary hesitancy, denies nocturia, denies incontinence, denies genital sores, denies decreased libido, and denies erectile dysfunction. Physical Exam Vitals & Measurements HR: 62(Peripheral) RR: 16 BP: 134/78 General Appearance: alert, no distress, well nourished, well developed male. Genitourinary: normal scrotum, normal testes, normal urethra, normal epididymis, normal vas deferens/spermatic cord. Flank Pain: none. Bladder: nonpalpable. Assessment/Plan 1. BPH with obstruction/lower urinary tract symptoms (N40.1: Benign prostatic hyperplasia with lower urinary tract symptoms) Tamsulosin 0.4mg daily. phoned in recently stating Tolterodine was too expensive. Will start VESIcare 4mg daily. Discussed the medication side effects, and the patient will monitor closely for these, as well as for symptom improvement. If severe side effects occur, the medication should be stopped and the office notified.Pt shares he is experiencing post void dribbling. Advised pt to wick the end of his penis to absorb any remaining urine in the channel. Reports he is still getting up twice during the night. Follow up within 3 months. All questions/concerns were discussed. Pt. to call the office if heencounters any issues prior. Pt. acknowledges understanding. 2. Feeling of incomplete bladder emptying (R39.14: Feeling of incomplete bladder emptying) PVR today 50 mL. 3. Urge incontinence (N39.41: Urge incontinence) this is a problem for him daily. he is not on any med for this now due to high cost of previous med. Will start VESIcare 5mg daily. Follow-up With When Contact Information ERIK MENG, Umer Schultz, [address] [place] [address]- Additional Instructions: 3 months Patient Education Benign Prostatic Hyperplasia I, Jacquelyn Fontana, personally scribed for Dr. Ruffin on 04/26/2022 11:35:37. . Documentation recorded by the scribe, Jacquelyn Fontana, accurately reflects the services(s) I performed and decisions made by me. Authenticated by Dr. Ruffin on 04/26/2022 11:36:56. 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 Medications allopurinol 300 mg Tab, Oral, Daily, Unable to obtain dicyclomine 20 mg Tab, Oral, QID, Unable to obtain docusate sodium, Unable to obtain donepezil 5 mg Tab, Oral, Once a day (at bedtime), Unable to obtain Flomax 0.4 mg Cap, 0.4 mg= 1 cap(s), Oral, Daily, 3 refills, Unable to obtain gabapentin 100 mg Cap, Oral, TID, Unable to obtain glipiZIDE 10 mg Tab, Oral, Daily, Unable to obtain Glyxambi 10 mg-5 mg oral tablet, Oral, qAM, Unable to obtain metoprolol 100 mg ER Tab, Oral, Daily, Unable to obtain tolterodine 4 mg Cap-ER, 4 mg= 1 cap(s), Oral, Daily, 11 refills, Unable to obtain Allergies penicillin (Hives) Social History Alcohol - Denies Alcohol Use, 01/19/2021 Tobacco Never (less than 100 in lifetime), Former smoker, quit more than 30 days ago Tobacco Use:. Never Smokeless Tobacco Use:., 04/26/2022 Family History Primary malignant neoplasm of lung: Father. Immunizations Vaccine Date Status influenza virus vaccine, (more content not included)... [facility] Comment on above: Result Comment: Elec tronically Signed By: ERIK MENG, Umer Schultz\.georges\Date and Time Signed: 04/26/22 11:37 EST\.br\Electronically Co-Signed By: Jacquelyn Fontana\.br\Date and Time Co-Signed: 04/26/22 11:35 EST POINT OF CARE GLUCOSEon 03-25 Glucose [Mass/Vol] 102 mg/dL Normal 74-106 [facility] Comment on above: Performed By: #### C MP, BNP, CMADM #### [facility] [address] [address] [address] Loyd Parks Patient Educationon 04-08-19 Patient Education Urology Benign Prostatic Hyperplasia Benign prostatic hyperplasia (BPH) is an enlarged prostate gland that is caused by the normal aging process and not by cancer. The prostate is a walnut-sized gland that is involved in the production of semen. It is located in front of the rectum and below the bladder. The bladder stores urine and the urethra is the tube that carries the urine out of the body. The prostate may get bigger as a man gets older. An enlarged prostate can press on the urethra. This can make it harder to pass urine. The build-up of urine in the bladder can cause infection. Back pressure and infection may progress to bladder damage and kidney (renal) failure. What are the causes? This condition is part of a normal aging process. However, not all men develop problems from this condition. If the prostate enlarges away from the urethra, urine flow will not be blocked. If it enlarges toward the urethra and compresses it, there will be problems passing urine. What increases the risk? This condition is more likely to develop in men over the age of 50 years. What are the signs or symptoms? Symptoms of this condition include: ? Getting up often during the night to urinate. ? Needing to urinate frequently during the day. ? Difficulty starting urine flow. ? Decrease in size and strength of your urine stream. ? Leaking (dribbling) after urinating. ? Inability to pass urine. This needs immediate treatment. ? Inability to completely empty your bladder. ? Pain when you pass urine. This is more common if there is also an infection. ? Urinary tract infection (UTI). How is this diagnosed? This condition is diagnosed based on your medical history, a physical exam, and your symptoms. Tests will also be done, such as: ? A post-void bladder scan. This measures any amount of urine that may remain in your bladder after you finish urinating. ? A digital rectal exam. In a rectal exam, your health care provider checks your prostate by putting a lubricated, gloved finger into your rectum to feel the back of your prostate gland. This exam detects the size of your gland and any abnormal lumps or growths. ? An exam of your urine (urinalysis). ? A prostate specific antigen (PSA) screening. This is a blood test used to screen for prostate cancer. ? An ultrasound. This test uses sound waves to electronically produce a picture of your prostate gland. Your health care provider may refer you to a specialist in kidney and prostate diseases (urologist). How is this treated? Once symptoms begin, your health care provider will monitor your condition (active surveillance or watchful waiting). Treatment for this condition will depend on the severity of your condition. Treatment may include: ? Observation and yearly exams. This may be the only treatment needed if your condition and symptoms are mild. ? Medicines to relieve your symptoms, including: ? Medicines to shrink the prostate. ? Medicines to relax the muscle of the prostate. ? Surgery in severe cases. Surgery may include: ? Prostatectomy. In this procedure, the prostate tissue is removed completely through an open incision or with a laparoscope or robotics. ? Transurethral resection of the prostate (TURP). In this procedure, a tool is inserted through the opening at the tip of the penis (urethra). It is used to cut away tissue of the inner core of the prostate. The pieces are removed through the same opening of the penis. This removes the blockage. ? Transurethral incision (TUIP). In this procedure, small cuts are made in the prostate. This lessens the prostate's pressure on the urethra. ? Transurethral microwave thermotherapy (TUMT). This procedure uses microwaves to create heat. The heat destroys and removes a small amount of prostate tissue. ? Transurethral needle ablation (TUNA). This procedure uses radio frequencies to destroy and remove a small amount of prostate tissue. ? Interstitial laser coagulation (ILC). This procedure uses a laser to destroy and remove a small amount of prostate tissue. ? Transurethral electrovaporization (TUVP). This procedure uses electrodes to destroy and remove a small amount of prostate tissue. ? Prostatic urethral lift. This procedure inserts an implant to push the lobes of the prostate away from the urethra. Follow these instructions at home: ? Take pnus-ixf-ikdkcbj and prescription medicines only as told by your health care provider. ? Monitor your symptoms for any changes. Contact your health care provider with any changes. ? Avoid drinking large amounts of liquid before going to bed or out in public. ? Avoid or reduce how much caffeine or alcohol you drink. ? Give yourself time when you urinate. ? Keep all follow-up visits as told by your health care provider. This is important. Contact a health care provider if: ? You have unexplained back pain. ? Your symptoms do not get better with treatment. ? You d (more content not included)... [facility] ER URINE PROFILEon 2 Bilirubin Ql (U) Negative Normal NEGATIVE [facility] Comment on above: Performed By: #### E RUR #### [facility] [address] [place] [address] Dr. Loyd Parks Clarity (U) CLEAR Normal CLEAR [facility] Comment on above: Performed By: #### E RUR #### [facility] [address] [place] [address] Dr. Loyd Parks Color (U) LT. YELLOW Normal YELLOW [facility] Comment on above: Performed By: #### E RUR #### [facility] [address] [place] [address] Dr. Loyd Parks ERUAMARJITD A micrscopic examina tion will be performed if indicated. Normal [facility] Comment on above: Performed By: #### E RUR #### [facility] [address] [place] [address] Dr. Lody Parks Glucose Ql (U) 100 mg/dl Abnormal NEGATIVE [facility] Comment on above: Performed By: #### E RUR #### [facility] [address] [place] [address] Dr. Loyd Parks Hemoglobin Ql (U) Negative Normal NEGATIVE [facility] Comment on above: Performed By: #### E RUR #### [facility] [address] [place] [address] Dr. Loyd Parks Ketones Ql (U) Negative Normal NEGATIVE [facility] Comment on above: Performed By: #### E RUR #### [facility] [address] [place] [address] Dr. Loyd Parks LEUKOCYTES Negative Normal NEGATIVE [facility] Comment on above: Performed By: #### E RUR #### [facility] [address] [place] [address] Dr. Loyd Parks Nitrite Ql (U) Negative Normal NEGATIVE [facility] Comment on above: Performed By: #### E RUR #### [facility] [address] [place] [address] Dr. Loyd Parks pH (U) 5.5 [pH] Normal 5-9 [facility] Comment on above: Performed By: #### E RUR #### [facility] [address] [place] [address] Dr. Loyd Parks SPEC GRAVITY 1.015 Normal 1.005-<=1.025 [facility] Comment on above: Performed By: #### E RUR #### [facility] [address] [place] [address] Dr. Loyd Parks UA PROTEIN Negative Normal NEGATIVE/ TRACE [facility] Comment on above: Performed By: #### E RUR #### [facility] [address] [place] [address] Dr. Loyd Parks UR MICRO IND NOT INDICATED Normal [facility] Comment on above: Performed By: #### E RUR #### [facility] [address] [place] [address] Dr. Loyd Parks Urobilinogen Qn (U) 0.2 {Malcolm'U}/dL Normal 0.2 - 1. 0 [facility] Comment on above: Performed By: #### E RUR #### [facility] [address] [place] [address] Dr. Loyd Parks GROUP A STREP CULTUREon 02-21 S. pyogenes Ag Ql (Unsp spec) Culture Observations: NEGATIVE FOR GROUP A STREPTOCOCCUS. Normal [facility] Comment on above: Performed By: #### S SCRN, GRASTCX #### [facility] [address] [place] [address] Dr. Loyd Parks STREPT SCREENon 03-03-2022 STREP SCREEN A Negative Normal NEGATIVE [facility] Comment on above: Performed By: #### S SCRN GRASTCX #### [facility] [address] [place] [address] Dr. Loyd Parks [facility]on SARS-CoV-2 (COVID-19) RNA SAUNDRA+probe Ql (Unsp spec) Not detected Normal NOT DETECTED [facility] Comment on above: Result Comment: This test is not yet approved or cleared by the [place] FDA. When there are no FDA-approved or cleared tests available, and other criteria are met, FDA can make tests available under an emergency access mechanism called an Emergency Use Authorization (EUA). The EUA for this test is supported by the [place] of Health and Human Service's (HHS's) declaration that circumstances exist to justify the emergency use of in vitro diagnostics for the detection and/or diagnosis of the virus that causes COVID-19. This EUA will remain in effect (meaning this test can be used) for the duration of the COVID-19 declaration justifying emergency of IVDs, unless it is terminated or revoked by FDA (after which the test may no longer be used). When diagnostic testing is negative, the possibility of a false negative should be considered in the context of a patient's recent exposures and the presence of clinical signs and symptoms consistent with SARS-CoV-2. Performed By: #### C MP, BNP, CMADM #### [facility] [address] [place] [address] Dr. Loyd Parks POINT OF CARE GLUCOSEon 12-22 Glucose [Mass/Vol] 133 mg/dL Critically high 74-106 [facility] Comment on above: Performed By: #### E RUR #### [facility] [address] [place] [address] Dr. Loyd Parks POINT OF CARE GLUCOSEon - Glucose [Mass/Vol] 75 mg/dL Normal 74-106 [facility] Comment on above: Performed By: #### E RUR #### [facility] [id number] Loyd Parks CT ABD/PELVIS WO CONon 09-03 CT ABD/PELVIS WO CON EXAMINATION: CT ABD/PELVIS WO CON, CT LSPINE WO CON HISTORY: UNSPECIFIED ABDOMINAL PAIN , low back pain increasing in severity since exercising 5 days ago; difficulty walking COMPARISON: CT abdomen pelvis 05/03/2021, 02/28/2020, CT lumbar spine 05/04/2021 TECHNIQUE: Axial, Coronal, and Sagittal images were created without IV contrast. Dose reduction techniques were achieved by using automated exposure control and/or adjustment of mA and/or kV according to patient size and/or use of iterative reconstruction technique. FINDINGS: LUNG BASES: Stable 8 mm nodule within left posterior costophrenic angle. LIVER: No enlargement, atrophy, suspicious density, or significant focal lesion. BILIARY: A few tiny granular size stones within noninflamed gallbladder. PANCREAS: No lesion, fluid collection, or abnormal duct dilatation. SPLEEN: No enlargement or focal lesion. ADRENALS: No mass or enlargement. KIDNEYS: Grossly stable renal cysts and mild cortical thinning. No mass, obstruction, or calcification. BOWEL/MESENTERY: Marked diverticulosis of the sigmoid colon without acute inflammatory changes. No visible mass, obstruction, or bowel wall thickening. Normal appendix. AORTA/VASCULAR: No aneurysm or dissection. RETROPERITONEUM: No mass or adenopathy. LYMPH NODES: No adenopathy. URINARY BLADDER: No visible focal wall thickening, lesion, or calculus. PELVIC ORGANS: No visible mass. Pelvic organs appropriate for patient age. ABDOMINAL WALL: No mass or hernia. BONES: L2-L3: marked central canal and moderate-marked bilateral foramen narrowing bilaterally secondary to prominent posterior disc bulging and marked degenerative facet arthropathy. Moderate disc height reduction. L3-L4: moderate central canal and left foramen narrowing secondary to moderate diffuse disc bulging without disc height reduction. Mild degenerative facet arthropathy. L4-L5: marked central canal and bilateral foramen narrowing secondary to large posterior disc-osteophyte complex, complete loss of disc space, and marked degenerative facet arthropathy. L5-S1: Marked central canal and bilateral foramen narrowing secondary to large posterior disc-osteophyte complex and complete loss of disc space. Marked degenerative facet arthropathy. OTHER: Negative. IMPRESSION: 1. Multilevel marked central canal and foraminal narrowing of the lumbar spine secondary to advanced degenerative disc disease and marked degenerative facet arthropathy; stable to slightly progressed compared to prior study. 2. No compression fracture or appreciable acute abnormality. 3. Cholelithiasis. 4. Colonic diverticulosis. Electronically authenticated by: SAURABH SINGH Date: 2021-09-03 08:35 Normal [facility] ER URINE PROFILEon 2 Bilirubin Ql (U) Negative Normal NEGATIVE [facility] Comment on above: Performed By: #### E RUR #### [facility] [address] [place] [address] Dr. Loyd Parks Clarity (U) CLEAR Normal CLEAR [facility] Comment on above: Performed By: #### E RUR #### [facility] [address] [place] [address] Dr. Loyd Parks Color (U) LT. YELLOW Normal YELLOW [facility] Comment on above: Performed By: #### E RUR #### [facility] [address] [place] [address] Dr. Loyd Parks ERUAHD A micrscopic examina tion will be performed if indicated. Normal [facility] Comment on above: Performed By: #### E RUR #### [facility] [address] [place] [address] Dr. Loyd Parks Glucose Ql (U) >1000 Abnormal NEGATIVE [facility] Comment on above: Performed By: #### E RUR #### [facility] [address] [place] [address] Dr. Loyd Parks Hemoglobin Ql (U) Negative Normal NEGATIVE [facility] Comment on above: Performed By: #### E RUR #### [facility] [address] [place] [address] Dr. Loyd Parks Ketones Ql (U) Negative Normal NEGATIVE [facility] Comment on above: Performed By: #### E RUR #### [facility] [address] [place] [address] Dr. Loyd Parks LEUKOCYTES Negative Normal NEGATIVE [facility] Comment on above: Performed By: #### E RUR #### [facility] [address] [place] [address] Dr. Loyd Parks Nitrite Ql (U) Negative Normal NEGATIVE [facility] Comment on above: Performed By: #### E RUR #### [facility] [address] [place] [address] Dr. Loyd Parks pH (U) 6.0 [pH] Normal 5-9 [facility] Comment on above: Performed By: #### E RUR #### [facility] [address] [place] [address] Dr. Loyd Parks SPEC GRAVITY 1.010 Normal 1.005-<=1.025 [facility] Comment on above: Performed By: #### E RUR #### [facility] [address] [place] [address] Dr. Loyd Parks UA PROTEIN Negative Normal NEGATIVE/ TRACE [facility] Comment on above: Performed By: #### E RUR #### [facility] [address] [place] [address] Dr. Loyd Parks UR MICRO IND NOT INDICATED Normal [facility] Comment on above: Performed By: #### E RUR #### [facility] [address] [place] [address] Dr. Loyd Parks Urobilinogen Qn (U) 0.2 {Malcolm'U}/dL Normal 0.2 - 1. 0 [facility] Comment on above: Performed By: #### E RUR #### [facility] [address] [place] [address] Dr. Loyd Parks ALCOHOLon 07-31-2020 Ethanol [Mass/Vol] mg/dL Normal [facility] Comment on above: Result Comment: FOR MEDICAL USE ONLY. . REF VALUES <10 Performed By: #### A LC ####[facility] [place] [address] CBC AND DIFFERENTIALon 07-31 % AUTOMATED IMMATURE GRAN 0.4 % Normal 0.0 - 0.9 [facility] Comment on above: Result Comment: Rylie ture Granulocyte Count (IG) includes promyelocytes, myelocytes and metamyelocytes but does not include bands. Percent differential counts (%) should be interpreted in the context of the absolute cell counts (cells/L). Performed By: #### C BCDF #### [facility] [address] [address] [address] Basophils (Bld) [#/Vol] 0.05 10*3/uL Normal 0.00 - 0.10 [facility] Comment on above: Performed By: #### C BCDF #### [facility] [address] [place] [address] Basophils/100 WBC (Bld) 0.6 % Normal 0.0 - 2.0 [facility] Comment on above: Performed By: #### C BCDF #### [facility] [id number] [place] [address] Eosinophils (Bld) [#/Vol] 0.21 10*3/uL Normal 0.00 - 0.40 [facility] Comment on above: Performed By: #### C BCDF #### [facility] [id number] [place] [address] Eosinophils/100 WBC (Bld) 2.4 % Normal 0.0 - 6.0 [facility] Comment on above: Performed By: #### C BCDF #### [facility] [id number] [place] [address] Erythrocyte distribution width (RBC) [Ratio] 13.2 % Normal 11.5 - 14.5 [facility] Comment on above: Performed By: #### C BCDF #### [facility] [id number] [place] [address] Hematocrit (Bld) [Volume fraction] 50.0 % Normal 41.0 - 52.0 [facility] Comment on above: Performed By: #### C BCDF #### [facility] [address] [place] [address] Hemoglobin (Bld) [Mass/Vol] 17.3 g/dL Normal 13.5 - 17.5 [facility] Comment on above: Performed By: #### C BCDF #### [facility] [address] [place] [address] Lymphocytes (Bld) [#/Vol] 1.59 10*3/uL Normal 0.80 - 3.00 [facility] Comment on above: Performed By: #### C BCDF #### [facility] [address] [place] [address] Lymphocytes/100 WBC (Bld) 17.9 % Normal 13.0 - 44.0 [facility] Comment on above: Performed By: #### C BCDF #### [facility] [address] [place] [address] MCHC (RBC) [Mass/Vol] 34.6 g/dL Normal 32.0 - 36.0 [facility] Comment on above: Performed By: #### C BCDF #### [facility] [address] [place] [address] MCV (RBC) [Entitic vol] 89 fL Normal 80 - 100 [facility] Comment on above: Performed By: #### C BCDF #### [facility] [address] [place] [address] Monocytes (Bld) [#/Vol] 0.82 10*3/uL High 0.05 - 0.80 [facility] Comment on above: Performed By: #### C BCDF #### [facility] [address] [place] [address] Monocytes/100 WBC (Bld) 9.2 % Normal 2.0 - 10.0 [facility] Comment on above: Performed By: #### C BCDF #### [facility] [address] [place] [address] Neutrophils (Bld) [#/Vol] 6.18 10*3/uL High 1.60 - 5.50 [facility] Comment on above: Performed By: #### C BCDF #### [facility] [address] [place] [address] Neutrophils/100 WBC (Bld) 69.5 % Normal 40.0 - 80.0 [facility] Comment on above: Performed By: #### C BCDF #### [facility] [address] [place] [address] Platelets (Bld) [#/Vol] 215 10*3/uL Normal 150 - 450 [facility] Comment on above: Performed By: #### C BCDF #### [facility] [address] [place] [address] RBC 5.59 x10E12/L Normal 4.50 - 5.90 [facility] Comment on above: Performed By: #### C BCDF #### [facility] [address] [place] [address] WBC (Bld) [#/Vol] 8.9 10*3/uL Normal 4.4 - 11.3 [facility] Comment on above: Performed By: #### C BCDF #### [facility] [address] [place] [address] CHEST 1 VIEWon 07-31-2020 CHEST 1 VIEW STUDY: Chest Radiograph; 07/30/2020 10:53 PM INDICATION: Shortness of breath. COMPARISON: None available. ACCESSION NUMBER(S): [id number] ORDERING CLINICIAN: ZAID YU DO TECHNIQUE: Frontal chest was obtained at 2355 hours. FINDINGS: CARDIOMEDIASTINAL SILHOUETTE: Cardiomediastinal silhouette is normal in size and configuration. LUNGS: Lungs are clear. ABDOMEN: No remarkable upper abdominal findings. BONES: No acute osseous changes. IMPRESSION: No acute pulmonary abnormality. Signed by Rodrick Anna MD Electronically signed by: RODRICK ANNA MD Normal [facility] COMPREHENSIVE PANELon 2020 Albumin [Mass/Vol] 3.7 g/dL Normal 3.4 - 5.0 [facility] Comment on above: Performed By: #### C MP ####[facility] [place] [address] ALP [Catalytic activity/Vol] 80 U/L Normal 33 - 136 [facility] Comment on above: Performed By: #### C MP ####[facility] [place] [address] ALT [Catalytic activity/Vol] 12 U/L Normal 10 - 52 [facility] Comment on above: Result Comment: Jade ents treated with Sulfasalazine may generate falsely decreased results for ALT. Performed By: #### C MP ####[facility] [place] [address] Anion gap [Moles/Vol] 13 mmol/L Normal 10 - 20 [facility] Comment on above: Performed By: #### C MP ####[facility] [place] [address] AST [Catalytic activity/Vol] 12 U/L Normal 9 - 39 [facility] Comment on above: Performed By: #### C MP ####[facility] [place] [address] Bilirubin [Mass/Vol] 0.7 mg/dL Normal 0.0 - 1.2 [facility] Comment on above: Performed By: #### C MP ####[place] [id number] [facility] [address] Calcium [Mass/Vol] 9.2 mg/dL Normal 8.6 - 10.3 [facility] Comment on above: Performed By: #### C MP ####[facility] [facility] [address] Chloride [Moles/Vol] 101 mmol/L Normal 98 - 107 [facility] Comment on above: Performed By: #### C MP ####[facility] [place] [address] Creatinine [Mass/Vol] 1.36 mg/dL High 0.50 - 1.30 [facility] Comment on above: Performed By: #### C MP ####[facility] [place], [place] [address], [place] [address] GFR- AM. 61 mL/min/1.73m2 Normal >60 [facility] Comment on above: Result Comment: CALC ULATIONS OF ESTIMATED GFR ARE PERFORMED USING THE MDRD STUDY EQUATION FOR THE IDMS-TRACEABLE CREATININE METHODS. CLIN CHEM 2007;53:766-72 Performed By: #### C MP ####[facility] [place] [address] GFR-NON AM. 50 mL/min/1.73m2 Abnormal >60 [facility] Comment on above: Performed By: #### C MP ####[facility] [place] [address] Glucose [Mass/Vol] 390 mg/dL High 74 - 99 [facility] Comment on above: Performed By: #### C MP ####[facility] [place] [address] HCO3 (Bld) [Moles/Vol] 27 mmol/L Normal 21 - 32 [facility] Comment on above: Performed By: #### C MP ####[facility] [place] [address] Potassium [Moles/Vol] 4.1 mmol/L Normal 3.5 - 5.3 [facility] Comment on above: Performed By: #### C MP ####[facility] [place] [address] Protein [Mass/Vol] 6.8 g/dL Normal 6.4 - 8.2 [facility] Comment on above: Performed By: #### C MP ####[facility] [place] [address] Sodium [Moles/Vol] 137 mmol/L Normal 136 - 145 [facility] Comment on above: Performed By: #### C MP ####[facility] [place] [address] Urea nitrogen [Mass/Vol] 27 mg/dL High 6 - 23 [facility] Comment on above: Performed By: #### C MP ####[facility] [place] [address] CT HEAD WO CONTRASTon 2020 CT HEAD WO CONTRAST STUDY: CT Head without IV Contrast; 07/30/2020, 11:52 PM. INDICATION: Confusion, disorientation. COMPARISON: None Available. ACCESSION NUMBER(S): [id number] ORDERING CLINICIAN: ZAID YU DO TECHNIQUE: Noncontrast axial CT scan of head was performed. Angled reformats in brain and bone windows were generated. The images were reviewed in bone, brain, blood and soft tissue windows. Automated mA/kV exposure control was utilized and patient examination was performed in strict accordance with principles of ALARA. FINDINGS: CSF Spaces: The ventricles, sulci and basal cisterns are within normal limits for age. There is no extraaxial fluid collection. Mild patchy areas of low-attenuation are seen in the subcortical and deep periventricular white matter suggesting areas of chronic microvascular ischemia. Parenchyma: The mayen-white differentiation is intact. There is no mass effect or midline shift. There is no intracranial hemorrhage. Calvarium: The calvarium is unremarkable. Paranasal sinuses and mastoids: Visualized paranasal sinuses and mastoids are clear. IMPRESSION: No acute intracranial findings. Signed by Rodrick Anna MD Electronically signed by: RODRICK ANNA MD Normal [facility] MAGNESIUMon 07-31-2020 Magnesium [Mass/Vol] 2.04 mg/dL Normal 1.60 - 2.40 [facility] Comment on above: Performed By: #### M G #### [facility] [address] [place] [address] PT/INRon 07-31-2020 PT Coag (PPP) [Time] 12.0 s Normal 10.1 - 13.3 [facility] Comment on above: Performed By: #### P TINR #### [facility] [address] [place] [address] PT, INR 1.0 Normal 0.9 - 1.1 [facility] Comment on above: Performed By: #### P TINR #### [facility] [address] [place] [address] Provider Note - ED v2on 07-22 Provider Note - ED v2 Provider Note - ED v2: Chart Review: ED NOTES ED NOTES: History: This is an 80-year-old male presenting from the [facility] by [facility] for chief complaint of a medical evaluation. Patient left his home in [place] 3 days ago because he got into an argument with his and he has not been back since. He was finally located at a [facility] down the street when family called. 911 was somehow called the patient was brought here. He is not suicidal or homicidal. He remembers the events well. He states his and him do not get along and he wanted to get away for a little bit. Past Medical History Including but not limited to diabetes and gout Social Hx: denies smoking, alcohol, or street drugs. Family Hx: denies any pertinent family history. ROS: Review of systems is otherwise negative unless stated above or in history of present illness. Physical Exam Appearance: Alert, oriented , cooperative, in no acute distress. Well nourished & well hydrated. Skin: Intact, dry skin, no lesions, rash, petechiae or purpura. Eyes: PERRLA, EOMs intact, Conjunctiva pink with no redness or exudates. Eyelids without lesions. No scleral icterus. ENT: Hearing grossly intact. External auditory canals patent, tympanic membranes intact with visible landmarks. Nares patent, mucus membranes moist. Dentition without lesions. Pharynx clear, uvula midline. Neck: Supple, without meningismus. Thyroid not palpable. Trachea at midline. No lymphadenopathy. Pulmonary: Clear bilaterally with good chest wall excursion. No rales, rhonchi or wheezing. No accessory muscle use or stridor. Cardiac: Normal S1, S2 without murmur, rub, gallop or extrasystole. No JVD, Carotids without bruits. Abdomen: Soft, nontender, active bowel sounds. No palpable organomegaly. No rebound or guarding. No CVA tenderness. Genitourinary: Exam deferred. Musculoskeletal: Full range of motion. no pain, edema, or deformity. Pulses full and equal. No cyanosis, clubbing, or edema. Neurological: Cranial nerves II through XII are grossly intact, finger-nose touch is normal, normal sensation, no weakness, no focal findings identified. Psychiatric: Appropriate mood and affect. Medical Decision Making: Workup reveals no real acute process and patient's family is here to take him home. He is not confused, knows where he's at and what happened these last few days. He will be discharged with close pcp follow up. HISTORY OF PRESENTING ILLNESS NAT is a 80 year old Male and was seen by me at 30-Jul-2020 22:56 for a chief complaint of altered mental status . Triage Information: Most recent Vital Sign Value Date Temp (F): 96.8 07-30-2020 23:17 Temp (C): 36 07-30-2020 23:17 Heart Rate (beats/min): 94 07-30-2020 23:17 Respirations (breaths/min): 18 07-30-2020 23:17 SpO2 (%): 97 07-30-2020 23:17 BP Systolic (mm Hg): 166 07-30-2020 23:17 BP Diastolic (mm Hg): 103 07-30-2020 23:17 PAST MEDICAL HISTORY ATTESTATION: I have reviewed and confirmed nurse's/medic's notes for patient's medications, allergies, and medical, surgical, family and social history ALLERGIES/INTOLERANCES: Allergy Allergen: penicillin Type: Drug Reaction: Unknown HEALTH HISTORY: No documented data. OUTPATIENT MEDICATIONS: Home Medications Review Status for Reconciliation: N/A Med Status: N/A No documented data. SIGNIFICANT EVENTS: No documented data. RESULTS/VITAL SIGNS EKG INTERPRETATION #1: Impression: Heart rate is 94 normal sinus rhythm with a left axis deviation and normal intervals. CLINICAL IMPRESSION Diagnosis/Annotation: ED Dx Name:Normal exam Code:Z00.00 Disposition: discharged ATTESTATION CRITICAL CARE TIME Is this a critically ill patient: no Electronic Signatures: Zaid Yu () (Signed 11-Aug-2020 11:59) Authored: ED Notes, HPI, PMH, EKG, Clinical Impression, Attestation, Chart Review, Scores Last Updated: 11-Aug-2020 11:59 by Zaid Yu () References: 1. Data Referenced From Triage - ED 30-Jul-2020 23:17 Normal [facility] Risk Screen - Adult Emergenc yon 07-31-2020 Risk Screen - Adult Emergency Preferred Language: Preferred Language: Preferred Language for Discussing Health Care (patient/designee)Swati stewart Advanced Directives: Advance Directive/DNRno Advance Directive Information Givenpatient/family declined Family Violence Adult: Abuse Screen: Are you or have you been threatened or abused physically, emotionally, or sexually by anyoneno Learning Assessment (Patient): Learning Assessment (Patient): Patient is Able to be Assessed for Learningyes Factors Influencing Readiness to Learnacuteness of illness Factors that Impact Ability to Learnacuteness of illness Devices/Methods Used to Communicatenone Learning Preferencesverbal instruction; written material Cultural Considerationsnone Developmental Considerationsnone Episcopalian Considerationsnone Learning Assessment (Other Learner): Learning Assessment (Other Learner): Other learner availableno Pressure Injury/TB/Substance: Pressure Injury: Do you have a coughno Substance Use Current or Former Historynever: Cigarette/Tobacco, e-Cigarette/Vaping, Alcohol, Street Drugs Admission Risk Screen: Significant IndicatorsComplete CAGE: CAGE: Is this an injured patient at a Trauma Center ([facility]/[place] /[place]): no Electronic Signatures: Elizabeth Ivan (RN) (Signed 30-Jul-2020 23:24) Authored: Preferred Language, Advanced Directives, Family Violence Adult, Learning Assessment (Patient), Learning Assessment (Other Learner), Pressure Injury/TB/Substance, Pressure Injury, CAGE Last Updated: 30-Jul-2020 23:24 by Elizabeth Ivan (RN) Normal [facility] TROPONIN Ion 07-31-2020 Troponin I.cardiac [Mass/Vol] ng/mL Normal 0.00 - 0.03 [facility] Comment on above: Result Comment: LESS THAN 0.04 NG/ML: NEGATIVE REPEAT TESTING IN THREE TO SIX HOURS IF CLINICALLY INDICATED. 0.04 - 0.5 NG/ML: CONSISTENT WITH POSSIBLE CARDIAC DAMAGE AND POSSIBLE INCREASED CLINICAL RISK. SERIAL MEASUREMENTS MAY HELP ASSESS EXTENT OF MYOCARDIAL DAMAGE. >0.5 NG/ML: CONSISTENT WITH CARDIAC DAMAGE, INCREASED CLINICAL RISK AND MYOCARDIAL INFARCTION. SERIAL MEASUREMENTS MAY HELP ASSESS EXTENT OF MYOCARDIAL DAMAGE. . Note: Troponin I testing is performed using different testing methodology at [facility] than at other [facility]. Direct result comparisons should only be made within the same method. Performed By: #### T ROP2 #### [facility] [address] [place] [address] Triage - EDon 07-31-2020 Triage - ED Quick Triage: The patient and/or guardian verbally acknowledges placement for services into the following (when Urgent Care Service hours are operating):emergency department Chart Review: PRIMARY ASSESSMENT NAT MALONE's primary assessment is Within Defined Limits. The airway is open and patent. Breathing spontaneous and unlabored with clear breath sounds bilaterally. Circulation is normal with good peripheral pulses. Skin is warm and dry and color is normal for race. ARRIVAL INFORMATION Means of Arrival: stretcher Mode of Arrival: ambulance Agency: City Agency Name: [facility] Accompanied By: concession worker Language: Spoken Language Preferred: Tristanian Reading Language Preferred: Tristanian CHIEF COMPLAINT NAT MALONE is a Male patient with a chief complaint of altered mental status. Triage Date/Time: 30-Jul-2020 22:50 LAILA: 3 Pain Rating (0-10): 0 = None Vital Signs: Temperature: 96.8F ( 36.0C) taken temporal Blood Pressure: 166/103 Mean: Heart Rate: 94 Respiratory Rate: 18 Pulse Oximetry: 97% on room air, no respiratory support. Weight: 230.3 pounds. Calculated 104.5 kg. (stated) Rosamond Coma Scale: Best Eye Response: (E4) spontaneous Best Motor Response: (M6) obeys commands Best Verbal Response: (V5) oriented Peyton Score: 15 Allergies: yes Patient has homicidal thoughts: no Symptoms Are POSITIVE For: confusion. Symptoms Are Negative For: aphasia, ataxia, diaphoresis, facial droop, headache, numbness, seizure and vomiting. Last Known Well: known Time Last Known Well Date/Time: 30-Jul-2020 Risk Screens Suicide Risk Screen In the Past Month: Have you wished you were or wished you could go to sleep and not wake up no In the Past Month: Have you had any actual thoughts of killing yourself no In Your Lifetime: Have you ever done anything, started to do anything, or prepared to do anything to end your life no Matson Fall Scale Screening Has the patient fallen before (or is the patient in the ED as a result of a fall) has not had a fall Does the patient have an impaired gait has impaired gait Is the patient cognitively impaired cognitively impaired Matson Fall Scale History of falling (immediate or previous) no (0) Secondary Diagnosis yes (15) Intravenous Therapy/ Heparin/Saline Lock yes (20) Gait/Transferring weak (10) Ambulatory Aids crutches/walker/cane (15) Mental Status overestimates/forgets limitations (15) Matson Fall Risk Score: 75 Interventions: Matson Fall Interventions: HIGH INTERVENTIONS *Low and Moderate Interventions Plus: * supervised toileting at all times TRAVEL HISTORY Travel History Coronavirus Screening: no exposure or symptoms PAIN Pain Scale Used: MILES Pain Rating (0-10): 0 = None Past Medical History: Past Medical History Reviewedno Electronic Signatures: Elizabeth Ivan) (Signed 30-Jul-2020 23:23) Authored: Quick Triage, Risk Screens, Pain, Arrival, ABCD, Chart Review, Scores, Past Medical History Last Updated: 30-Jul-2020 23:23 by Elizabeth Ivan (RN) Normal [facility] UA MICROSCOPICon 07-31-2020 RBC 1 /HPF Normal 0-5 [facility] Comment on above: Performed By: #### U AMIC #### [facility] [address] [place] [address] SQUAMOUS EPITH. CELLS <1 Normal [facility] Comment on above: Performed By: #### U AMIC #### [facility] [address] [place] [address] WBC 22 /HPF Abnormal 0-5 [facility] Comment on above: Performed By: #### U AMIC #### [facility] [address] [place] [address] URINALYSISon 07-31-2020 Appearance (U) CLEAR Normal CLEAR [facility] Comment on above: Performed By: #### U A #### [facility] [address] [place] [address] Bilirubin Ql (U) Negative Normal NEGATIVE [facility] Comment on above: Performed By: #### U A #### [facility] [address] [place] [address] Color (U) STRAW Normal STRAW,YELLOW [facility] Comment on above: Performed By: #### U A #### [facility] [address] [place] [address] Glucose Ql (U) >=500(3+) Abnormal NEGATIVE [facility] Comment on above: Performed By: #### U A #### [facility] [address] [place] [address] Hemoglobin Ql (U) SMALL(1+) Abnormal NEGATIVE [facility] Comment on above: Performed By: #### U A #### [facility] [address] [place] [address] Ketones Ql (U) Negative Normal NEGATIVE [facility] Comment on above: Performed By: #### U A #### [facility] [address] [place] [address] Leukocyte esterase Test strip Ql (U) TRACE Abnormal NEGATIVE [facility] Comment on above: Performed By: #### U A #### [facility] [address] [facility] [place] [address] Nitrite Ql (U) Negative Normal NEGATIVE [facility] Comment on above: Performed By: #### U A #### [facility] [address] [facility] [place] [address] pH (U) 6.0 [pH] Normal 5.0 - 8.0 [facility] Comment on above: Performed By: #### U A #### [facility] [address] [place] [address] Protein Ql (U) 100(2+) Abnormal NEGATIVE [facility] Comment on above: Performed By: #### U A #### [facility] [address] [place] [address] Specific gravity (U) [Rel density] 1.025 Normal 1.005 - 1.035 [facility] Comment on above: Performed By: #### U A #### [facility] [address] [place] [address] Urobilinogen (U) [Mass/Vol] mg/dL Normal 0.0 - 1.9 [facility] Comment on above: Performed By: #### U A #### [facility] [address] [place] [address] Vital Signs Date Time Vital Sign Value Performing Clinician Dontae fuentes 09-16-2022 14:48-0400 Blood Pressure Location Umer RUFFIN [facility] 09-16-2022 14:48-0400 Diastolic blood pressure 74 mm[Hg] Umer RUFFIN [facility] 09-16-2022 14:48-0400 Heart rate 70 /min Umer RUFFIN [facility] 09-16-2022 14:48-0400 Respiratory rate 16 /min Umer RUFFIN [facility] 09-16-2022 14:48-0400 Systolic blood pressure 130 mm[Hg] Umer RUFFIN [facility] 04-26-2022 11:04-0500 Blood Pressure Location Umer RUFFIN [facility] 04-26-2022 11:04-0500 Diastolic blood pressure 78 mm[Hg] Umer RUFFIN [facility] 04-26-2022 11:04-0500 Heart rate 62 /min Umer RUFFIN [facility] 04-26-2022 11:04-0500 Respiratory rate 16 /min Uemr RUFFIN [facility] 04-26-2022 11:04-0500 Systolic blood pressure 134 mm[Hg] Umer RUFFIN [facility] 12-03-2021 13:08-0400 Blood Pressure Location Umer RUFFIN [facility] 12-03-2021 13:08-0400 Diastolic blood pressure 70 mm[Hg] Umer RUFFIN [facility] 12-03-2021 13:08-0400 Heart rate 65 /min Umer RUFFIN [facility] 12-03-2021 13:08-0400 Respiratory rate 16 /min Umer RUFFIN [facility] 12-03-2021 13:08-0400 Systolic blood pressure 109 mm[Hg] Umer RUFFIN [facility] 09-03-2021 13:39-0400 Blood Pressure Location Umer RUFFIN [facility] 09-03-2021 13:39-0400 Diastolic blood pressure 67 mm[Hg] [facility] 09-03-2021 13:39-0400 Heart rate 68 /min [facility] RUFF[facility] 09-03-2021 13:39-0400 Respiratory rate 16 /min [facility] RUFF[facility] 09-03-2021 13:39-0400 Systolic blood pressure 102 mm[Hg] [facility] En[facility]ters Encounter Date Encounter Type Care Provider Facility Start: 05-13-2023 ambulatory JONATHAN Louisi ty:[facility] Start: 03-26-2023 End: 03-26-2023 ambulatory JUAN PABLO ALANIZ Not Available Start: 02-27-2023 End: 02-27-2023 ambulatory CHET SANDOVAL Not Available Start: 12-18-2022 End: 12-19-2022 ambulatory JONATHAN PINTO Facility:[facility] [place] Start: 09-16-2022 End: 09-17-2022 ambulatory Umer RUFFIN Facility:[facility] Start: 09-16-2022 End: 09-16-2022 Patient encounter procedure Umer RUFFIN [facility] Start: 07-26-2022 End: 07-27-[address] JUAN PABLO ALANIZ Facility: Start: 06-26-2022 End: 06-27-[address] JUAN PABLO ALANIZ Facility:[facility] Start: 05-23-2022 End: 05-24-[address] JUAN PABLO ALANIZ Facility:[facility] Start: 04-26-2022 End: 04-27-2022 ambulatory Umer RUFFIN Facility:[facility] Start: 04-26-2022 End: 04-26-2022 Patient encounter procedure Umer RUFFIN [facility] Start: 04-22-2022 End: 04-23-[address] JUAN PABLO ALANIZ Facility:[facility] Start: 04-16-2022 End: 04-16-[address] JUAN PABLO ALANIZ Facility:[facility] Start: 04-08-2022 End: 04-09-2022 ambulatory Umer RUFFIN Facility:[facility] Start: 04-08-2022 End: 04-08-2022 Patient encounter procedure Umer RUFFIN [facility] Start: 04-04-2022 ambulatory SHELLIE ROJAS . Facility: 1 Start: 03-08-2022 End: 03-08-[address] JUAN PABLO ALANIZ Facility:[facility] Start: 03-04-2022 Encounter for preprocedural cardiovascular examination DR VINH HOLCOMB . [facility] Start: 03-04-2022 Encounter for preprocedural laboratory examination DR VINH HOLCOMB . [facility] Start: 03-03-2022 End: 03-03-[address] JUAN PABLO ALANIZ Facility:[facility] Start: 03-02-2022 Encounter for preprocedural cardiovascular examination DR VINH HOLCOMB . [facility] Start: 02-26-[address] VINH HOLCOMB . Faci lity:[facility]1 Start: 02-22-2022 End: 02-23-2022 Encounter for preprocedural cardiovascular examination DR VINH HOLCOMB . Facility:[facility] Start: 02-22-2022 End: 02-23-[address] VINH HOLCOMB . Facility:[facility] Start: 02-22-2022 End: 02-23-2022 Encounter for preprocedural laboratory examination DR VINH HOLCOMB . Facility:[facility] Start: 02-19-2022 End: 02-20-2022 ambulatory [facility] Maxine [facility] Facility:[facility] Start: 02-04-[address] VINH HOLCOMB . Faci lity:[facility]1 Start: 01-22-2022 End: 01-23-[address] JUAN PABLO ALANIZ Facility:[facility] Start: 01-01-2022 End: 01-01-[address] VINH HOLCOMB . Facility:[facility] Start: 12-13-2021 End: 12-14-[address] VINH HOLCOMB . Facility:[facility] Start: 12-03-2021 End: 12-03-2021 Patient encounter procedure Umer RUFFIN [facility] Start: 11-29-2021 End: 11-30-2021 ambulatory [facility] Facility:[facility] Start: 11-27-2021 End: 11-27-[address] VINH HOLCOMB . Facility:[facility] Start: 10-02-2021 End: 10-03-[address] VINH HOLCOMB . Facility:[facility] Start: 09-21-2021 End: 09-21-[address] SUJIT GR . Facility:[facility] Start: 09-19-2021 End: 09-20-2021 ambulatory [facility] Facility:[facility] Start: 09-15-2021 End: 09-16-[address] SPARKLE NELSON Facility:[facility] Start: 09-03-2021 End: 09-03-2021 Patient encounter procedure Umer RUFFIN [facility] Start: 09-03-2021 End: 09-03-[address] JUAN PALBO ALANIZ Facility:[facility] Procedures Date Procedure Procedure Detail Performing Clinician Esophagogastroduodenoscopy Goldie RUFFIN Plan of Treatment Date Care Activity Detail Author Start: 08-22-2022 ambulatory Ambulatory Facility:[facility] 1 Immunizations Immunization Date Immunization Notes Care Provider Fa cility 02-22-2022 influenza virus vacc ine, unspecified formulation Umer RUFFIN [facility] 12-21-2020 SARS-CoV-2 (COVID-19 ) mRNA BNT-162z1 vax Umer RUFFIN [facility] 11-30-2020 SARS-CoV-2 (COVID-19 ) mRNA BNT-162c6 vax Umer RUFFIN [facility] 01-24-2020 influenza virus vacc ine, unspecified formulation Umer [employer]clusively[facility] 03-04-2019 influenza virus vacc ine, unspecified formulation [place] [facility] 08-05-2018 pneumococcal polysaccharide vaccine, 23 valent Umer RUFFIN [facility] 12-18-2016 influenza virus vacc ine, unspecified formulation Umer [employer] 12-06-2015 influenza virus vacc ine, unspecified formulation Umer RUFFIN [facility] 12-21-2014 influenza virus vacc ine, unspecified formulation [place] [facility] Payers Date Payer Category Payer Unknown [id number] 1961 Unknown [id number] 1938 Unknown [id number] 2.16.84 0.1.846750.3.579.2.593 1938 Unknown [id number] 2.16.84 0.1.985674.3.579.2.593 1938 Unknown [id number] 2.16.84 0.1.745350.3.579.2.593 1938 Unknown [id number] 2.16.84 0.1.328679.3.579.2.593 1938 Unknown [id number] 2.16.84 0.1.610140.3.579.2.593 1938 Unknown [id number] 2.16.84 0.1.023418.3.579.2.593 1938 Unknown [id number] 2.16.84 0.1.206494.3.579.2.593 1938 Unknown [id number] 2.16.84 0.1.630561.3.579.2.593 1938 Unknown [id number] 2.16.84 0.1.206176.3.579.2.593 1938 Unknown [id number] 2.16.84 0.1.076447.3.579.2.593 1938 Unknown [id number] 2.16.84 0.1.394406.3.579.2.593 1938 Unknown [id number] 2.16.84 0.1.591173.3.579.2.593 1938 Unknown [id number] 2.16.84 0.1.119413.3.579.2.593 1938 Unknown [id number] 2.16.84 0.1.951226.3.579.2.593 1938 Unknown [id number] 2.16.84 0.1.733694.3.579.2.593 1938 Unknown [id number] 2.16.84 0.1.724259.3.579.2.593 1938 Unknown [id number] 2.16.84 0.1.488902.3.579.2.593 1938 Unknown [id number] 2.16.84 0.1.110142.3.579.2.593 1938 Unknown [id number] 2.16.84 0.1.414774.3.579.2.593 1938 Unknown [id number] 2.16.84 0.1.391003.3.579.2.593 1938 Unknown [id number] 2.16.84 0.1.642130.3.579.2.593 1938 Unknown [id number] 2.16.84 0.1.823007.3.579.2.593 1938 Unknown [id number] 2.16.84 0.1.329750.3.579.2.593 1938 Unknown [id number] 2.16.84 0.1.296811.3.579.2.593 1938 Unknown [id number] 2.16.840 .1.793436.3.579.2.1259 1938 Unknown [id number] 2.16.840 .1.666607.3.579.2.1259 1938 Unknown [id number] 2.16.8 40.1.200134.3.579.2.727 1938 Unknown [id number] 2.16.8 40.1.059870.3.579.2.727 1938 Unknown [id number] 2.16.8 40.1.715611.3.579.2.727 1938 Unknown [id number] 2.16.8 40.1.580741.3.579.2.727 1938 Unknown [id number] 2.16.8 40.1.842741.3.579.2.727 Social History Date Type Detail Facility Start: 09-03-2021 Tobacco smoking status Ex-smoker (fi nding) [facility] Sex Assigned At Male [facility] Start: 04-26-2022 Tobacco smoking status Never s moked tobacco (finding) [facility] Tobacco smoking status Never [facility] Functional Status Date Assessment Result Facility 09-16-2022 Functional Status N/A [facility] 04-26-2022 Functional Status N/A [facility] 12-03-2021 Functional Status N/A [facility] 09-03-2021 Functional Status N/A [facility] Clinical Notes 09-03-2021 to 09-16-2022 Note Date & Type Note Facility 09-16-2022 Hospital Discharge instructions Patient Education 09/16/2022 15:39:44 Overactive Bladder, Adult Overactive Bladder, Adult Overactive bladder is a condition in which a person has a sudden and frequent need to urinate. A person might also leak urine if he or she cannot get to the bathroom fast enough (urinary incontinence). Sometimes, symptoms can interfere with work or social activities. What are the causes? Overactive bladder is associated with poor nerve signals between your bladder and your brain. Your bladder may get the signal to empty before it is full. You may also have very sensitive muscles that make your bladder squeeze too soon. This condition may also be caused by other factors, such as: Medical conditions: ?Urinary tract infection. ?Infection of nearby tissues. ?Prostate enlargement. ?Bladder stones, inflammation, or tumors. ?Diabetes. ?Muscle or nerve weakness, especially from these conditions: ?A spinal cord injury. ?Stroke. ?Multiple sclerosis. ?Parkinson's disease. Other causes: ?Surgery on the uterus or urethra. ?Drinking too much caffeine or alcohol. ?Certain medicines, especially those that eliminate extra fluid in the body (diuretics). ?Constipation. What increases the risk? You may be at greater risk for overactive bladder if you: Are an older adult. Smoke. Are going through menopause. Have prostate problems. Have a neurological disease, such as stroke, dementia, Parkinson's disease, or multiple sclerosis (MS). Eat or drink alcohol, spicy food, caffeine, and other things that irritate the bladder. Are overweight or obese. What are the signs or symptoms? Symptoms of this condition include a sudden, strong urge to urinate. Other symptoms include: Leaking urine. Urinating 8 or more times a day. Waking up to urinate 2 or more times overnight. How is this diagnosed? This condition may be diagnosed based on: Your symptoms and medical history. A physical exam. Blood or urine tests to check for possible causes, such as infection. You may also need to see a health care provider who specializes in urinary tract problems. This is called a urologist. How is this treated? Treatment for overactive bladder depends on the cause of your condition and whether it is mild or severe. Treatment may include: Bladder training, such as: ?Learning to control the urge to urinate by following a schedule to urinate at regular intervals. ?Doing Kegel exercises to strengthen the pelvic floor muscles that support your bladder. Special devices, such as: ?Biofeedback. This uses sensors to help you become aware of your body's signals. ?Electrical stimulation. This uses electrodes placed inside the body (implanted) or outside the body. These electrodes send gentle pulses of electricity to strengthen the nerves or muscles that control the bladder. ?Women may use a plastic device, called a pessary, that fits into the vagina and supports the bladder. Medicines, such as: ?Antibiotics to treat bladder infection. ?Antispasmodics to stop the bladder from releasing urine at the wrong time. ?Tricyclic antidepressants to relax bladder muscles. ?Injections of botulinum toxin type A directly into the bladder tissue to relax bladder muscles. Surgery, such as: ?A device may be implanted to help manage the nerve signals that control urination. ?An electrode may be implanted to stimulate electrical signals in the bladder. ?A procedure may be done to change the shape of the bladder. This is done only in very severe cases. Follow these instructions at home: Eating and drinking Make diet or lifestyle changes recommended by your health care provider. These may include: ?Drinking fluids throughout the day and not only with meals. ?Cutting down on caffeine or alcohol. ?Eating a healthy and balanced diet to prevent constipation. This may include: ?Choosing foods that are high in fiber, such as beans, whole grains, and fresh fruits and vegetables. ?Limiting foods that are high in fat and processed sugars, such as fried and sweet foods. Lifestyle Lose weight if needed. Do not use any products that contain nicotine or tobacco. These include cigarettes, chewing tobacco, and vaping devices, such as e-cigarettes. If you need help quitting, ask your health care provider. General instructions Take rwwb-zcf-lfngsar and prescription medicines only as told by your health care provider. If you were prescribed an antibiotic medicine, take it as told by your health care provider. Do not stop taking the antibiotic even if you start to feel better. Use any implants or pessary as told by your health care provider. If needed, wear pads to absorb urine leakage. Keep a log to track how much and when you drink, and when you need to urinate. This will help your health care provider monitor your condition. Keep all follow-up visits. This is important. Contact a health care provider if: You have a fever or chills. Your symptoms do not get better with treatment. Your pain and discomfort get worse. You have more frequent urges to urinate. Get help right away if: You are not able to control your bladder. Summary Overactive bladder refers to a condition in which a person has a sudden and frequent need to urinate. Several conditions may lead to an overactive bladder. Treatment for overactive bladder depends on the cause and severity of your condition. Making lifestyle changes, doing Kegel exercises, keeping a log, and taking medicines can help with this condition. This information is not intended to replace advice given to you by your health care provider. Make sure you discuss any questions you have with your health care provider. Document Revised: 11/27/2020 Document Reviewed: 11/27/2020 [employer] Patient Education 2022 [employer]. Follow Up Care 04/26/2022 11:39:09 With:ERIK MENG, Umer Schultz, URL Address: [facility] [address], [place] [address]- When: Unknown [facility] 05-23-2022 Note CONSULTATION CONSULTATION DATE: 05/23/2022 HISTORY: This is a very pleasant, 82-year-old gentleman, accompanied by his to the clinic, status post bilateral RFA of L2, L3 and L4, L5 completed on 04/16/2022. Thus far, the patient states he has received 50% improvement. His pain today, he does rate 6/10. He states the pain wakes him up at night and he has trouble getting out of bed. He does have trouble bending forward to put on his socks and pants. He says he has a deep ache in his lower back, primarily to his left lumbar area. He currently does not use any heat, participate in stretches or use a topical heat rub. Other medications include Robaxin 250 mg q.h.s. and Tylenol #3 p.r.n. Patient's REVIEW OF SYSTEMS / PAST MEDICAL HISTORY / ALLERGIES and IMAGES have been reviewed and noted on the chart. PHYSICAL EXAM: VITAL SIGNS: Blood pressure is 164/76. Heart rate is 95. Temperature is 96.8. He is 5'9 and weighs 114 kg. GENERAL IMPRESSION: Pleasant, appropriate, in no acute distress. FOCUSED EXAM - BACK: Range of motion is guarded in lateral rotation and flexion/extension. Paravertebral muscles bilaterally are spasmodic with a trigger point identified to the left erector spinae muscle. Compression reproduces the patient's pain symptomatology. No spinal axial pain upon compression of the lumbar facets. Genny's point non-tender bilaterally. MUSCULOSKELETAL: Diffuse muscle atrophy noted bilateral lower extremities. He does walk unassisted with a slow, antalgic gait. 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 Patellar reflexes are blunted bilaterally. Patient is cognitively intact. DIAGNOSIS: Lumbar spasms, lumbar spondylosis, lumbar degenerative disc disease. PLAN: We discussed the patient's medication regimen with his pharmacy to square away exactly what he is taking. He is currently not on an anti-inflammatory and will be started on Mobic 15 mg daily. His Robaxin will be increased to 500 mg q.h.s. Education was given in regards to a topical heat rub and heat application up to three times a day. We will see him in three months' time, unless otherwise indicated. Patient agrees with this plan. [facility] 04-26-2022 Hospital Discharge instructions Patient Education 04/26/2022 11:21:01 Benign Prostatic Hyperplasia Benign Prostatic Hyperplasia Benign prostatic hyperplasia (BPH) is an enlarged prostate gland that is caused by the normal aging process and not by cancer. The prostate is a walnut-sized gland that is involved in the production of semen. It is located in front of the rectum and below the bladder. The bladder stores urine and the urethra is the tube that carries the urine out of the body. The prostate may get bigger as a man gets older. An enlarged prostate can press on the urethra. This can make it harder to pass urine. The build-up of urine in the bladder can cause infection. Back pressure and infection may progress to bladder damage and kidney (renal) failure. What are the causes? This condition is part of a normal aging process. However, not all men develop problems from this condition. If the prostate enlarges away from the urethra, urine flow will not be blocked. If it enlarges toward the urethra and compresses it, there will be problems passing urine. What increases the risk? This condition is more likely to develop in men over the age of 50 years. What are the signs or symptoms? Symptoms of this condition include: Getting up often during the night to urinate. Needing to urinate frequently during the day. Difficulty starting urine flow. Decrease in size and strength of your urine stream. Leaking (dribbling) after urinating. Inability to pass urine. This needs immediate treatment. Inability to completely empty your bladder. Pain when you pass urine. This is more common if there is also an infection. Urinary tract infection (UTI). How is this diagnosed? This condition is diagnosed based on your medical history, a physical exam, and your symptoms. Tests will also be done, such as: A post-void bladder scan. This measures any amount of urine that may remain in your bladder after you finish urinating. A digital rectal exam. In a rectal exam, your health care provider checks your prostate by putting a lubricated, gloved finger into your rectum to feel the back of your prostate gland. This exam detects the size of your gland and any abnormal lumps or growths. An exam of your urine (urinalysis). A prostate specific antigen (PSA) screening. This is a blood test used to screen for prostate cancer. An ultrasound. This test uses sound waves to electronically produce a picture of your prostate gland. Your health care provider may refer you to a specialist in kidney and prostate diseases (urologist). How is this treated? Once symptoms begin, your health care provider will monitor your condition (active surveillance or watchful waiting). Treatment for this condition will depend on the severity of your condition. Treatment may include: Observation and yearly exams. This may be the only treatment needed if your condition and symptoms are mild. Medicines to relieve your symptoms, including: ?Medicines to shrink the prostate. ?Medicines to relax the muscle of the prostate. Surgery in severe cases. Surgery may include: ?Prostatectomy. In this procedure, the prostate tissue is removed completely through an open incision or with a laparoscope or robotics. ?Transurethral resection of the prostate (TURP). In this procedure, a tool is inserted through the opening at the tip of the penis (urethra). It is used to cut away tissue of the inner core of the prostate. The pieces are removed through the same opening of the penis. This removes the blockage. ?Transurethral incision (TUIP). In this procedure, small cuts are made in the prostate. This lessens the prostate's pressure on the urethra. ?Transurethral microwave thermotherapy (TUMT). This procedure uses microwaves to create heat. The heat destroys and removes a small amount of prostate tissue. ?Transurethral needle ablation (TUNA). This procedure uses radio frequencies to destroy and remove a small amount of prostate tissue. ?Interstitial laser coagulation (ILC). This procedure uses a laser to destroy and remove a small amount of prostate tissue. ?Transurethral electrovaporization (TUVP). This procedure uses electrodes to destroy and remove a small amount of prostate tissue. ?Prostatic urethral lift. This procedure inserts an implant to push the lobes of the prostate away from the urethra. Follow these instructions at home: Take petb-lbz-bnspphz and prescription medicines only as told by your health care provider. Monitor your symptoms for any changes. Contact your health care provider with any changes. Avoid drinking large amounts of liquid before going to bed or out in public. Avoid or reduce how much caffeine or alcohol you drink. Give yourself time when you urinate. Keep all follow-up visits as told by your health care provider. This is important. Contact a health care provider if: You have unexplained back pain. Your symptoms do not get better with treatment. You develop side effects from the medicine you are taking. Your urine becomes very dark or has a bad smell. Your lower abdomen becomes distended and you have trouble passing your urine. Get help right away if: You have a fever or chills. You suddenly cannot urinate. You feel lightheaded, or very dizzy, or you faint. There are large amounts of blood or clots in the urine. Your urinary problems become hard to manage. You develop moderate to severe low back or flank pain. The flank is the side of your body between the ribs and the hip. These symptoms may represent a serious problem that is an emergency. Do not wait to see if the symptoms will go away. Get medical help right away. Call your local emergency services (911 in the [place] Do not drive yourself to the hospital. Summary Benign prostatic hyperplasia (BPH) is an enlarged prostate that is caused by the normal aging process and not by cancer. An enlarged prostate can press on the urethra. This can make it hard to pass urine. This condition is part of a normal aging process and is more likely to develop in men over the age of 50 years. Get help right away if you suddenly cannot urinate. This information is not intended to replace advice given to you by your health care provider. Make sure you discuss any questions you have with your health care provider. Document Released: 03/10/2006 Document Revised: 02/02/2019 Document Reviewed: 04/14/2017 [employer] Patient Education 2020 [employer]. Follow Up Care 04/08/2022 14:01:00 With:ERIK MENG, Umer Schultz, URL Address: [address] [place] [address]- When: Unknown [facility] 04-08-2022 Hospital Discharge instructions Patient Education 04/08/2022 08:30:52 Benign Prostatic Hyperplasia Benign Prostatic Hyperplasia Benign prostatic hyperplasia (BPH) is an enlarged prostate gland that is caused by the normal aging process and not by cancer. The prostate is a walnut-sized gland that is involved in the production of semen. It is located in front of the rectum and below the bladder. The bladder stores urine and the urethra is the tube that carries the urine out of the body. The prostate may get bigger as a man gets older. An enlarged prostate can press on the urethra. This can make it harder to pass urine. The build-up of urine in the bladder can cause infection. Back pressure and infection may progress to bladder damage and kidney (renal) failure. What are the causes? This condition is part of a normal aging process. However, not all men develop problems from this condition. If the prostate enlarges away from the urethra, urine flow will not be blocked. If it enlarges toward the urethra and compresses it, there will be problems passing urine. What increases the risk? This condition is more likely to develop in men over the age of 50 years. What are the signs or symptoms? Symptoms of this condition include: Getting up often during the night to urinate. Needing to urinate frequently during the day. Difficulty starting urine flow. Decrease in size and strength of your urine stream. Leaking (dribbling) after urinating. Inability to pass urine. This needs immediate treatment. Inability to completely empty your bladder. Pain when you pass urine. This is more common if there is also an infection. Urinary tract infection (UTI). How is this diagnosed? This condition is diagnosed based on your medical history, a physical exam, and your symptoms. Tests will also be done, such as: A post-void bladder scan. This measures any amount of urine that may remain in your bladder after you finish urinating. A digital rectal exam. In a rectal exam, your health care provider checks your prostate by putting a lubricated, gloved finger into your rectum to feel the back of your prostate gland. This exam detects the size of your gland and any abnormal lumps or growths. An exam of your urine (urinalysis). A prostate specific antigen (PSA) screening. This is a blood test used to screen for prostate cancer. An ultrasound. This test uses sound waves to electronically produce a picture of your prostate gland. Your health care provider may refer you to a specialist in kidney and prostate diseases (urologist). How is this treated? Once symptoms begin, your health care provider will monitor your condition (active surveillance or watchful waiting). Treatment for this condition will depend on the severity of your condition. Treatment may include: Observation and yearly exams. This may be the only treatment needed if your condition and symptoms are mild. Medicines to relieve your symptoms, including: ?Medicines to shrink the prostate. ?Medicines to relax the muscle of the prostate. Surgery in severe cases. Surgery may include: ?Prostatectomy. In this procedure, the prostate tissue is removed completely through an open incision or with a laparoscope or robotics. ?Transurethral resection of the prostate (TURP). In this procedure, a tool is inserted through the opening at the tip of the penis (urethra). It is used to cut away tissue of the inner core of the prostate. The pieces are removed through the same opening of the penis. This removes the blockage. ?Transurethral incision (TUIP). In this procedure, small cuts are made in the prostate. This lessens the prostate's pressure on the urethra. ?Transurethral microwave thermotherapy (TUMT). This procedure uses microwaves to create heat. The heat destroys and removes a small amount of prostate tissue. ?Transurethral needle ablation (TUNA). This procedure uses radio frequencies to destroy and remove a small amount of prostate tissue. ?Interstitial laser coagulation (ILC). This procedure uses a laser to destroy and remove a small amount of prostate tissue. ?Transurethral electrovaporization (TUVP). This procedure uses electrodes to destroy and remove a small amount of prostate tissue. ?Prostatic urethral lift. This procedure inserts an implant to push the lobes of the prostate away from the urethra. Follow these instructions at home: Take lfrq-cpi-cockgbe and prescription medicines only as told by your health care provider. Monitor your symptoms for any changes. Contact your health care provider with any changes. Avoid drinking large amounts of liquid before going to bed or out in public. Avoid or reduce how much caffeine or alcohol you drink. Give yourself time when you urinate. Keep all follow-up visits as told by your health care provider. This is important. Contact a health care provider if: You have unexplained back pain. Your symptoms do not get better with treatment. You develop side effects from the medicine you are taking. Your urine becomes very dark or has a bad smell. Your lower abdomen becomes distended and you have trouble passing your urine. Get help right away if: You have a fever or chills. You suddenly cannot urinate. You feel lightheaded, or very dizzy, or you faint. There are large amounts of blood or clots in the urine. Your urinary problems become hard to manage. You develop moderate to severe low back or flank pain. The flank is the side of your body between the ribs and the hip. These symptoms may represent a serious problem that is an emergency. Do not wait to see if the symptoms will go away. Get medical help right away. Call your local emergency services (911 in the [place] Do not drive yourself to the hospital. Summary Benign prostatic hyperplasia (BPH) is an enlarged prostate that is caused by the normal aging process and not by cancer. An enlarged prostate can press on the urethra. This can make it hard to pass urine. This condition is part of a normal aging process and is more likely to develop in men over the age of 50 years. Get help right away if you suddenly cannot urinate. This information is not intended to replace advice given to you by your health care provider. Make sure you discuss any questions you have with your health care provider. Document Released: 03/10/2006 Document Revised: 02/02/2019 Document Reviewed: 04/14/2017 [employer] Patient Education 2020 [employer]. Follow Up Care 12/03/2021 14:11:02 With:ERIK MENG, Umer Schultz, URL Address: [facility] [address], [place] [address]- When: Unknown [facility] 01-22-2022 Note CONSULTATION CONSULTATION DATE: 01/22/2022 CHIEF COMPLAINT: Low back pain. HISTORY OF PRESENT ILLNESS: This is a very pleasant, 81-year-old gentleman who is status post diagnostic #2 medial branch block at the level of L2-3 and L4-5. This afforded the patient 80+% improvement. Recently, the pain has been increasing, given the change in weather. He describes the pain as a 6/10. Sitting too long aggravates the patient's pain as does lying down too long. Climbing stairs, bending forward, ADLs, activities aggravate the patient's pain. The patient continues to do physical therapy and in-home exercises. The patient currently takes Tylenol #3 on a b.i.d basis, gabapentin 200 mg t.i.d., nabumetone 750 mg daily. The patient's daughter manages his medications. The patient's PAST MEDICAL HISTORY / SURGICAL HISTORY / REVIEW OF SYSTEMS are noted on the chart, along with the MEDICATION LIST / ALLERGIES and RADIOLOGICAL IMAGES. PHYSICAL EXAMINATION: Upon physical examination, this is a pleasant, cooperative gentleman, who does not appear to be in any acute distress. The patient uses a walking cane for ambulation. VITAL SIGNS: 106/65 with a heart rate of 92. At a height of 5'9 , the patient weighs 110 kg. HEAD: Atraumatic, normocephalic. NECK: Crepitus is present. HEART: No orthopnea. LUNGS: Non-labored breathing. ABDOMEN: Protuberant, distended. BACK: Tenderness is noted along the posterior elements. The patient has heavy dense musculatures; however, the patient has full muscles along the lumbar paravertebrals. The paravertebral spasming appears to have decreased. EXTREMITIES: Vasomotor changes are noted in the lower extremities bilaterally. Slight pedal edema. MUSCULOSKELETAL: Intact in the lower extremities. NEUROLOGICALLY: Polyneuropathy of the lower extremities bilaterally. PSYCHIATRICALLY: Affect is appropriate. IMPRESSION: Low back pain, lumbar degenerative disc disease, lumbar spondylosis. PLAN: Given that the patient has had successful diagnostic medial branch block on two separate occasions, we will look to proceed with a rhizotomy radiofrequency ablation of the dorsal rami at the level of L2-3 and L4-5. The patient will also attend aquatic therapy to help improve his functionality. The patient understands and would like to proceed. CC: Juan Pablo Alaniz M.D. [facility] 12-13-2021 Note CONSULTATION CONSULTATION DATE: 12/13/2021 HISTORY OF PRESENT ILLNESS: This is an 81-year-old gentleman who returns to the clinic status post #1 bilateral MBB of L2, L3 and L4, L5 completed on 11/27/2021 that afforded him 100% relief for two hours. During the time of greatest relief, the patient states he was able to walk around the yard and the house with less pain, and he felt he had a more upright posture. Today, he feels he is near baseline, rating 10/10 pain. Patient is visually in no acute distress. 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 He does not use heat or ice to his back at this time. Current medications include gabapentin 200 mg t.i.d., nabumetone 750 mg b.i.d., [place] 5/325 t.i.d. Patient does use a walking stick to ambulate as needed. He does have diffuse neuropathy bilateral lower extremities. He does not report any new vasomotor changes or recent falls. Patient's REVIEW OF SYSTEMS / PAST MEDICAL HISTORY / ALLERGIES and IMAGES have been reviewed and they are noted on the chart. PHYSICAL EXAM: VITAL SIGNS: Blood pressure is 153/81. Heart rate is 73. Temperature is 97.3. He is 5'9 and weighs 110 kg. GENERAL IMPRESSION: Pleasant, appropriate, no acute distress. FOCUSED EXAM - BACK: Range of motion is guarded in lateral rotation and flexion/extension. Paravertebral muscles are non-spasmodic. Genny's point is non-tender bilaterally with negative FABERs and compression test. Reproduction of patient's pain symptomatology to direct compression along the posterior elements of the lumbar facets that radiate below his knees. Fullness is palpated and indicative of facet arthropathy, lumbar spondylosis. MUSCULOSKELETAL: Diffuse muscle atrophy noted to bilateral lower extremities. Patient uses a walking stick and walks with a steady but antalgic gait. Lower extremity sclerosis noted as well. NEUROLOGICAL: Diffuse polyneuropathy bilateral lower extremities. Blunted patellar reflexes bilaterally. DIAGNOSIS: Lumbar spondylosis, lumbar degenerative disc disease and lumbar radiculitis, spinal axial lower back pain. PLAN: We will move forward with authorizing #2 bilateral MBB of L2, L3 and L4, L5. A refill for [place] 5/325 t.i.d. will be sent today. He will receive an oral U-Tox in the office today. Supportive measures such as stretching, a menthol heat rub and heat application to his back were discussed. I did recommend a Boost supplement daily. Patient will be followed up in the office post procedure and agrees to move forward. [facility] 12-03-2021 Hospital Discharge instructions Patient Education 12/03/2021 13:45:30 Benign Prostatic Hyperplasia Benign Prostatic Hyperplasia Benign prostatic hyperplasia (BPH) is an enlarged prostate gland that is caused by the normal aging process and not by cancer. The prostate is a walnut-sized gland that is involved in the production of semen. It is located in front of the rectum and below the bladder. The bladder stores urine and the urethra is the tube that carries the urine out of the body. The prostate may get bigger as a man gets older. An enlarged prostate can press on the urethra. This can make it harder to pass urine. The build-up of urine in the bladder can cause infection. Back pressure and infection may progress to bladder damage and kidney (renal) failure. What are the causes? This condition is part of a normal aging process. However, not all men develop problems from this condition. If the prostate enlarges away from the urethra, urine flow will not be blocked. If it enlarges toward the urethra and compresses it, there will be problems passing urine. What increases the risk? This condition is more likely to develop in men over the age of 50 years. What are the signs or symptoms? Symptoms of this condition include: Getting up often during the night to urinate. Needing to urinate frequently during the day. Difficulty starting urine flow. Decrease in size and strength of your urine stream. Leaking (dribbling) after urinating. Inability to pass urine. This needs immediate treatment. Inability to completely empty your bladder. Pain when you pass urine. This is more common if there is also an infection. Urinary tract infection (UTI). How is this diagnosed? This condition is diagnosed based on your medical history, a physical exam, and your symptoms. Tests will also be done, such as: A post-void bladder scan. This measures any amount of urine that may remain in your bladder after you finish urinating. A digital rectal exam. In a rectal exam, your health care provider checks your prostate by putting a lubricated, gloved finger into your rectum to feel the back of your prostate gland. This exam detects the size of your gland and any abnormal lumps or growths. An exam of your urine (urinalysis). A prostate specific antigen (PSA) screening. This is a blood test used to screen for prostate cancer. An ultrasound. This test uses sound waves to electronically produce a picture of your prostate gland. Your health care provider may refer you to a specialist in kidney and prostate diseases (urologist). How is this treated? Once symptoms begin, your health care provider will monitor your condition (active surveillance or watchful waiting). Treatment for this condition will depend on the severity of your condition. Treatment may include: Observation and yearly exams. This may be the only treatment needed if your condition and symptoms are mild. Medicines to relieve your symptoms, including: ?Medicines to shrink the prostate. ?Medicines to relax the muscle of the prostate. Surgery in severe cases. Surgery may include: ?Prostatectomy. In this procedure, the prostate tissue is removed completely through an open incision or with a laparoscope or robotics. ?Transurethral resection of the prostate (TURP). In this procedure, a tool is inserted through the opening at the tip of the penis (urethra). It is used to cut away tissue of the inner core of the prostate. The pieces are removed through the same opening of the penis. This removes the blockage. ?Transurethral incision (TUIP). In this procedure, small cuts are made in the prostate. This lessens the prostate's pressure on the urethra. ?Transurethral microwave thermotherapy (TUMT). This procedure uses microwaves to create heat. The heat destroys and removes a small amount of prostate tissue. ?Transurethral needle ablation (TUNA). This procedure uses radio frequencies to destroy and remove a small amount of prostate tissue. ?Interstitial laser coagulation (ILC). This procedure uses a laser to destroy and remove a small amount of prostate tissue. ?Transurethral electrovaporization (TUVP). This procedure uses electrodes to destroy and remove a small amount of prostate tissue. ?Prostatic urethral lift. This procedure inserts an implant to push the lobes of the prostate away from the urethra. Follow these instructions at home: Take gltz-cbu-persnfr and prescription medicines only as told by your health care provider. Monitor your symptoms for any changes. Contact your health care provider with any changes. Avoid drinking large amounts of liquid before going to bed or out in public. Avoid or reduce how much caffeine or alcohol you drink. Give yourself time when you urinate. Keep all follow-up visits as told by your health care provider. This is important. Contact a health care provider if: You have unexplained back pain. Your symptoms do not get better with treatment. You develop side effects from the medicine you are taking. Your urine becomes very dark or has a bad smell. Your lower abdomen becomes distended and you have trouble passing your urine. Get help right away if: You have a fever or chills. You suddenly cannot urinate. You feel lightheaded, or very dizzy, or you faint. There are large amounts of blood or clots in the urine. Your urinary problems become hard to manage. You develop moderate to severe low back or flank pain. The flank is the side of your body between the ribs and the hip. These symptoms may represent a serious problem that is an emergency. Do not wait to see if the symptoms will go away. Get medical help right away. Call your local emergency services (911 in the [place] Do not drive yourself to the hospital. Summary Benign prostatic hyperplasia (BPH) is an enlarged prostate that is caused by the normal aging process and not by cancer. An enlarged prostate can press on the urethra. This can make it hard to pass urine. This condition is part of a normal aging process and is more likely to develop in men over the age of 50 years. Get help right away if you suddenly cannot urinate. This information is not intended to replace advice given to you by your health care provider. Make sure you discuss any questions you have with your health care provider. Document Released: 03/10/2006 Document Revised: 02/02/2019 Document Reviewed: 04/14/2017 [employer] Patient Education 2020 [employer]. Follow Up Care 09/03/2021 14:17:23 With:ERIK MENG, Umer Schultz, URL Address: [facility] [address], [place] [address]- [phone] When:04/04/2022 Comments:PVR [facility] 10-02-2021 Note CONSULTATION PROCEDURE DATE: 10/02/2021 PREOPERATIVE DIAGNOSIS: Lumbar paravertebral spasm. POSTOPERATIVE DIAGNOSIS: Lumbar paravertebral spasm. PROCEDURE: Lumbar trigger point injection bilaterally x4. Subsequent to obtaining informed consent, the patient was placed in the prone position. Alcohol prep was used to sterilize the site. A 25 gauge needle was advanced and it comes to rest along trigger zones along the erector spinae muscle bilaterally. Marcaine 0.125% along with Kenalog 10 mg are placed on four separate sites. Negative heme. The patient tolerates the procedure well, without any overt complication. Post procedurally, he reports mitigation of his pain symptomatology. [facility] Signed and Approved by: DR VINH HOLCOMB . 10/09/2021 09:28:00 [facility] 10-02-2021 Note CONSULTATION CONSULTATION DATE: 10/02/2021 CHIEF COMPLAINT: Low back pain increasing over the last six months, bilateral lower extremity pain. HISTORY OF PRESENT ILLNESS: This is an 81-year-old gentleman who is referred to us by Dr. Alaniz. The patient has had chronic low back pain radiating into his legs bilaterally. The patient reports it a . The patient has had a CT of his lumbar spine which was reviewed in office today which shows significant degenerative disc disease, lumbar spondylosis, lumbar stenosis. The patient states any activity such as twisting, pushing, standing, walking, laying down aggravate the pain. The patient has difficulty in the evening compared to the daytime. The patient takes ibuprofen 1000 mg three times a day, gabapentin 200 mg three times a day, methocarbamol 75 mg q. 6 hours as per the patient, allopurinol 300 mg daily, oxybutynin and fluoxetine. The patient also is taking Jardiance and glipizide for diabetes. The patient's PAST MEDICAL HISTORY / SURGICAL HISTORY / REVIEW OF SYSTEMS are noted on the chart, along with the MEDICATION LIST / ALLERGIES and the CT mentioned above. The patient's report is noted. PHYSICAL EXAMINATION: GENERAL: Upon physical examination, this is a pleasant, cooperative gentleman who ambulates with a walking stick. VITAL SIGN: Stable at 118/67 with a heart rate of 76. At a height of 5'9 , the patient weighs 110 kg. FOCUSED EVALUATION OF THE LOWER EXTREMITIES: The patient has lymphedema in the lower extremities bilaterally. Polyneuropathy of the legs is present bilaterally. Poor muscle tone is present in his lower extremities. EXTREMITIES: Pedal edema/sarcopenia is present. MUSCULOSKELETAL: Intact; however, the quality of the muscles are poor. Iliopsoas, quads, anterior tibial, extensor hallucis, extensor digitorum are within functional limits. NEUROLOGICALLY: No radicular symptomatology. Polyneuropathy of the lower extremities are present to the knee. BACK: With regards to the low back, extension, compression, direct palpation along the lumbar spine. Significant jump response is noted concordant with facet arthropathy, lumbar spondylosis. The patient has lumbar paravertebral spasming. 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 PLAN: Education was done with regards to the patient decreasing his ibuprofen to 200 mg three times a day. We will re-prescribe [place] 5/325 t.i.d. which he had received from the emergency room. We will add Mirapex 0.25 mg q.p.m. The patient will be scheduled for a lumbar diagnostic medial branch block at the level of L2-3 and L4-5. In the interim, the patient will receive lumbar trigger point injections in the office today for his lumbar paravertebral spasm. The patient understands and would like to proceed. CC: Juan Pablo Alaniz M.D. [facility] Signed and Approved by: DR VINH HOLCOMB . 10/09/2021 09:28:00 [facility] 09-03-2021 Hospital Discharge instructions Patient Education 09/03/2021 13:53:17 Calorie Counting for Weight Loss Calorie Counting for Weight Loss Calories are units of energy. Your body needs a certain amount of calories from food to keep you going throughout the day. When you eat more calories than your body needs, your body stores the extra calories as fat. When you eat fewer calories than your body needs, your body tineo fat to get the energy it needs. Calorie counting means keeping track of how many calories you eat and drink each day. Calorie counting can be helpful if you need to lose weight. If you make sure to eat fewer calories than your body needs, you should lose weight. Ask your health care provider what a healthy weight is for you. For calorie counting to work, you will need to eat the right number of calories in a day in order to lose a healthy amount of weight per week. A dietitian can help you determine how many calories you need in a day and will give you suggestions on how to reach your calorie goal. A healthy amount of weight to lose per week is usually 1 2 lb (0.5 0.9 kg). This usually means that your daily calorie intake should be reduced by 500 750 calories. Eating 1,200 1,500 calories per day can help most women lose weight. Eating 1,500 1,800 calories per day can help most men lose weight. What is my plan? My goal is to have calories per day. If I have this many calories per day, I should lose around pounds per week. What do I need to know about calorie counting? In order to meet your daily calorie goal, you will need to: Find out how many calories are in each food you would like to eat. Try to do this before you eat. Decide how much of the food you plan to eat. Write down what you ate and how many calories it had. Doing this is called keeping a food log. To successfully lose weight, it is important to balance calorie counting with a healthy lifestyle that includes regular activity. Aim for 150 minutes of moderate exercise (such as walking) or 75 minutes of vigorous exercise (such as running) each week. Where do I find calorie information? The number of calories in a food can be found on a Nutrition Facts label. If a food does not have a Nutrition Facts label, try to look up the calories online or ask your dietitian for help. Remember that calories are listed per serving. If you choose to have more than one serving of a food, you will have to multiply the calories per serving by the amount of servings you plan to eat. For example, the label on a package of bread might say that a serving size is 1 slice and that there are 90 calories in a serving. If you eat 1 slice, you will have eaten 90 calories. If you eat 2 slices, you will have eaten 180 calories. How do I keep a food log? Immediately after each meal, record the following information in your food log: What you ate. Don't forget to include toppings, sauces, and other extras on the food. How much you ate. This can be measured in cups, ounces, or number of items. How many calories each food and drink had. The total number of calories in the meal. Keep your food log near you, such as in a small notebook in your pocket, or use a mobile fely or website. Some programs will calculate calories for you and show you how many calories you have left for the day to meet your goal. What are some calorie counting tips? Use your calories on foods and drinks that will fill you up and not leave you hungry: ?Some examples of foods that fill you up are nuts and nut butters, vegetables, lean proteins, and high-fiber foods like whole grains. High-fiber foods are foods with more than 5 g fiber per serving. ?Drinks such as sodas, specialty coffee drinks, alcohol, and juices have a lot of calories, yet do not fill you up. Eat nutritious foods and avoid empty calories. Empty calories are calories you get from foods or beverages that do not have many vitamins or protein, such as candy, sweets, and soda. It is better to have a nutritious high-calorie food (such as an avocado) than a food with few nutrients (such as a bag of chips). Know how many calories are in the foods you eat most often. This will help you calculate calorie counts faster. Pay attention to calories in drinks. Low-calorie drinks include water and unsweetened drinks. Pay attention to nutrition labels for low fat or fat free foods. These foods sometimes have the same amount of calories or more calories than the full fat versions. They also often have added sugar, starch, or salt, to make up for flavor that was removed with the fat. Find a way of tracking calories that works for you. Get creative. Try different apps or programs if writing down calories does not work for you. What are some portion control tips? Know how many calories are in a serving. This will help you know how many servings of a certain food you can have. Use a measuring cup to measure serving sizes. You could also try weighing out portions on a kitchen scale. With time, you will be able to estimate serving sizes for some foods. Take some time to put servings of different foods on your favorite plates, bowls, and cups so you know what a serving looks like. Try not to eat straight from a bag or box. Doing this can lead to overeating. Put the amount you would like to eat in a cup or on a plate to make sure you are eating the right portion. Use smaller plates, glasses, and bowls to prevent overeating. Try not to multitask (for example, watch TV or use your computer) while eating. If it is time to eat, sit down at a table and enjoy your food. This will help you to know when you are full. It will also help you to be aware of what you are eating and how much you are eating. What are tips for following this plan? Reading food labels Check the calorie count compared to the serving size. The serving size may be smaller than what you are used to eating. Check the source of the calories. Make sure the food you are eating is high in vitamins and protein and low in saturated and trans fats. Shopping Read nutrition labels while you shop. This will help you make healthy decisions before you decide to purchase your food. Make a grocery list and stick to it. Cooking Try to cook your favorite foods in a healthier way. For example, try baking instead of frying. Use low-fat dairy products. Meal planning Use more fruits and vegetables. Half of your plate should be fruits and vegetables. Include lean proteins like poultry and fish. How do I count calories when eating out? Ask for smaller portion sizes. Consider sharing an entree and sides instead of getting your own entree. If you get your own entree, eat only half. Ask for a box at the beginning of your meal and put the rest of your entree in it so you are not tempted to eat it. If calories are listed on the menu, choose the lower calorie options. Choose dishes that include vegetables, fruits, whole grains, low-fat dairy products, and lean protein. Choose items that are boiled, broiled, grilled, or steamed. Stay away from items that are buttered, battered, fried, or served with cream sauce. Items labeled crispy are usually fried, unless stated otherwise. Choose water, low-fat milk, unsweetened iced tea, or other drinks without added sugar. If you want an alcoholic beverage, choose a lower calorie option such as a glass of wine or light beer. Ask for dressings, sauces, and syrups on the side. These are usually high in calories, so you should limit the amount you eat. If you want a salad, choose a garden salad and ask for grilled meats. Avoid extra toppings like madrid, cheese, or fried items. Ask for the dressing on the side, or ask for olive oil and vinegar or lemon to use as dressing. Estimate how many servings of a food you are given. For example, a serving of cooked rice is cup or about the size of half a baseball. Knowing serving sizes will help you be aware of how much food you are eating at restaurants. The list below tells you how big or small some common portion sizes are based on everyday objects: ?1 oz 4 stacked dice. ?3 oz 1 deck of cards. ?1 tsp 1 . ?1 Tbsp a ping-pong ball. ?2 Tbsp 1 ping-pong ball. ? cup baseball. ?1 cup 1 baseball. Summary Calorie counting means keeping track of how many calories you eat and drink each day. If you eat fewer calories than your body needs, you should lose weight. A healthy amount of weight to lose per week is usually 1 2 lb (0.5 0.9 kg). This usually means reducing your daily calorie intake by 500 750 calories. The number of calories in a food can be found on a Nutrition Facts label. If a food does not have a Nutrition Facts label, try to look up the calories online or ask your dietitian for help. Use your calories on foods and drinks that will fill you up, and not on foods and drinks that will leave you hungry. Use smaller plates, glasses, and bowls to prevent overeating. This information is not intended to replace advice given to you by your health care provider. Make sure you discuss any questions you have with your health care provider. Document Released: 03/10/2006 Document Revised: 11/27/2018 Document Reviewed: 02/07/2017 [employer] Patient Education 2020 [employer] 09/03/2021 13:53:06 Benign Prostatic Hyperplasia Benign Prostatic Hyperplasia Benign prostatic hyperplasia (BPH) is an enlarged prostate gland that is caused by the normal aging process and not by cancer. The prostate is a walnut-sized gland that is involved in the production of semen. It is located in front of the rectum and below the bladder. The bladder stores urine and the urethra is the tube that carries the urine out of the body. The prostate may get bigger as a man gets older. An enlarged prostate can press on the urethra. This can make it harder to pass urine. The build-up of urine in the bladder can cause infection. Back pressure and infection may progress to bladder damage and kidney (renal) failure. What are the causes? This condition is part of a normal aging process. However, not all men develop problems from this condition. If the prostate enlarges away from the urethra, urine flow will not be blocked. If it enlarges toward the urethra and compresses it, there will be problems passing urine. What increases the risk? This condition is more likely to develop in men over the age of 50 years. What are the signs or symptoms? Symptoms of this condition include: Getting up often during the night to urinate. Needing to urinate frequently during the day. Difficulty starting urine flow. Decrease in size and strength of your urine stream. Leaking (dribbling) after urinating. Inability to pass urine. This needs immediate treatment. Inability to completely empty your bladder. Pain when you pass urine. This is more common if there is also an infection. Urinary tract infection (UTI). How is this diagnosed? This condition is diagnosed based on your medical history, a physical exam, and your symptoms. Tests will also be done, such as: A post-void bladder scan. This measures any amount of urine that may remain in your bladder after you finish urinating. A digital rectal exam. In a rectal exam, your health care provider checks your prostate by putting a lubricated, gloved finger into your rectum to feel the back of your prostate gland. This exam detects the size of your gland and any abnormal lumps or growths. An exam of your urine (urinalysis). A prostate specific antigen (PSA) screening. This is a blood test used to screen for prostate cancer. An ultrasound. This test uses sound waves to electronically produce a picture of your prostate gland. Your health care provider may refer you to a specialist in kidney and prostate diseases (urologist). How is this treated? Once symptoms begin, your health care provider will monitor your condition (active surveillance or watchful waiting). Treatment for this condition will depend on the severity of your condition. Treatment may include: Observation and yearly exams. This may be the only treatment needed if your condition and symptoms are mild. Medicines to relieve your symptoms, including: ?Medicines to shrink the prostate. ?Medicines to relax the muscle of the prostate. Surgery in severe cases. Surgery may include: ?Prostatectomy. In this procedure, the prostate tissue is removed completely through an open incision or with a laparoscope or robotics. ?Transurethral resection of the prostate (TURP). In this procedure, a tool is inserted through the opening at the tip of the penis (urethra). It is used to cut away tissue of the inner core of the prostate. The pieces are removed through the same opening of the penis. This removes the blockage. ?Transurethral incision (TUIP). In this procedure, small cuts are made in the prostate. This lessens the prostate's pressure on the urethra. ?Transurethral microwave thermotherapy (TUMT). This procedure uses microwaves to create heat. The heat destroys and removes a small amount of prostate tissue. ?Transurethral needle ablation (TUNA). This procedure uses radio frequencies to destroy and remove a small amount of prostate tissue. ?Interstitial laser coagulation (ILC). This procedure uses a laser to destroy and remove a small amount of prostate tissue. ?Transurethral electrovaporization (TUVP). This procedure uses electrodes to destroy and remove a small amount of prostate tissue. ?Prostatic urethral lift. This procedure inserts an implant to push the lobes of the prostate away from the urethra. Follow these instructions at home: Take [id number] and prescription medicines only as told by your health care provider. Monitor your symptoms for any changes. Contact your health care provider with any changes. Avoid drinking large amounts of liquid before going to bed or out in public. Avoid or reduce how much caffeine or alcohol you drink. Give yourself time when you urinate. Keep all follow-up visits as told by your health care provider. This is important. Contact a health care provider if: You have unexplained back pain. Your symptoms do not get better with treatment. You develop side effects from the medicine you are taking. Your urine becomes very dark or has a bad smell. Your lower abdomen becomes distended and you have trouble passing your urine. Get help right away if: You have a fever or chills. You suddenly cannot urinate. You feel lightheaded, or very dizzy, or you faint. There are large amounts of blood or clots in the urine. Your urinary problems become hard to manage. You develop moderate to severe low back or flank pain. The flank is the side of your body between the ribs and the hip. These symptoms may represent a serious problem that is an emergency. Do not wait to see if the symptoms will go away. Get medical help right away. Call your local emergency services (911 in the [place] Do not drive yourself to the hospital. Summary Benign prostatic hyperplasia (BPH) is an enlarged prostate that is caused by the normal aging process and not by cancer. An enlarged prostate can press on the urethra. This can make it hard to pass urine. This condition is part of a normal aging process and is more likely to develop in men over the age of 50 years. Get help right away if you suddenly cannot urinate. This information is not intended to replace advice given to you by your health care provider. Make sure you discuss any questions you have with your health care provider. Document Released: 03/10/2006 Document Revised: 02/02/2019 Document Reviewed: 04/14/2017 [employer] Patient Education 2020 [employer]. Follow Up Care 07/03/2021 15:21:16 With:ERIK MENG, KAYLYN Fox Address: [facility] [address] , [place] [phone]- [phone] When:Within 3 Month(s) Comments:f/u in 3 months with PVR scan [facility] Evaluation + Plan note Future Appointments Appointment Date:12/03/2021 01:15:00 PM Scheduled Provider:Umer RUFFIN MD Location:[facility] Appointment Type:URO Office Visit [facility] Evaluation + Plan note Future Appointments Appointment Date:04/08/2022 12:45:00 PM Scheduled Provider:Umer RUFFIN MD Location:[facility] Appointment Type:URO Office Visit [facility] Evaluation + Plan note Future Appointments Appointment Date:04/26/2022 10:15:00 AM Scheduled Provider:Umer RUFFIN MD Location:[facility] Appointment Type:URO Office Visit [facility] Evaluation + Plan note Future Appointments Appointment Date:07/22/2022 08:45:00 AM Scheduled Provider:Umer RUFFIN MD Location:[facility] Appointment Type:URO Office Visit [facility] Evaluation + Plan note Future Appointments Appointment Date:12/20/2022 08:30:00 AM Scheduled Provider:Umer RUFFIN MD Location:[facility] Appointment Type:URO Office Visit [facility] Hospital course Narrative No data available for this section [facility] Progress note No data available for this section [facility] Summary Purpose Family History No Family History Records FoundNo Family History Records FoundNo Family History Records FoundNo Family History Records Found Advance Directives No Advanced Directives Records FoundNo Advanced Directives Records FoundNo Advanced Directives Records FoundNo Advanced Directives Records Found Additional Source Comments (unrecognized sect ion and content) No Status Records FoundNo Status Records FoundNo Status Records FoundNo Status Records Found INFORMATION SOURCE (unrecogn ized section and content) DATE CREATED AUTHOR 11/14/2020 [facility] DATE CREATED AUTHOR AUTHOR'S ORGANIZ ATION 08/02/2022 [facility] DATE CREATED AUTHOR AUTHOR'S ORGANIZ ATION 03/27/2023 [facility] EPIC DATE CREATED AUTHOR AUTHOR'S ORGANIZ ATION 04/01/2023 [facility] Care Team (unrecognized sect ion and content) Personnel Name: JUAN PABLO ALANIZ MD Address: [address] [place] [address] Personnel Name: JUAN PABLO ALANIZ MD Address: [address] [place] [address] Personnel Name: JUAN PABLO ALANIZ MD Address: Address: [address] [place] [address] Personnel Name: JUAN PABLO ALANIZ MD Address: Address: [address] [place] [address] Personnel Name: JUAN PABLO ALANIZ MD Address: Address: [address] [place] [address] FOR RECORDS PERTAINING TO PATIENTS WHO ARE OR HAVE BEEN ENROLLED IN A CHEMICAL DEPENDENCY/SUBSTANCEABUSE PROGRAM, SOME INFORMATION MAY BE OMITTED. This clinical summary was aggregated from multiple sources. Caution should be exercised in using it in the provision of clinical care. This summary normalizes information from multiple sources, and as a consequence, information in this document may materially change the coding, format and clinical context of patient data. In addition, data may be omitted in some cases. CLINICAL DECISIONS SHOULD BE BASED ON THE PRIMARY CLINICAL RECORDS. [employer] provides no warranty or guarantee of the accuracy or completeness of information in this document.
== END 2023-04-09 13:30 | disposition home or self-care (01) ==
LOC: WC 13:29
PROVIDERS: PCP Internal Medicine; Visit Provider Podiatrist Foot & Ankle Surgery
DX: E11.40 Type 2 diabetes mellitus with diabetic neuropathy, unspecified (principal); E11.65 Type 2 diabetes mellitus with hyperglycemia; L60.3 Nail dystrophy; R60.0 Localized edema
CPT/HCPCS: 11721

== ENCOUNTER 2023-04-26 00:49 | Emergency (ER) | payer MEDICARE, SELFPAY ==
[2023-04-26 00:47] VITALS: BP 163/94; PULSE 61; RESP 20; TEMP 36.4; O2SAT 97
--- NOTE | 2023-04-26 00:51 | ED_ITS ---
HPI - Back Pain/Injury General Chief Complaint: Back Pain/Injury Stated Complaint: BACK PAIN Time Seen by Provider: 04/26/23 00:51 Source: patient Mode of arrival: ambulance Limitations: no limitations History of Present Illness HPI Narrative: has chronic back pain. Increasing pain over the past few days. Worsening pain tonight. pain of his lower back. Pain does not radiate to his lower extremities. No loss of control or bowel or bladder. Spasmodic pain. Given Fentanyl x 2 en route by [facility]. Denies injury MD elicited complaint: Reports back pain Related Data Allergies Allergy/AdvReac Type Severity Reaction Status Date / Time Penicillins Allergy Intermediate Verified 04/26/23 00:51 Review of Systems ROS Status of ROS 10 or more systems reviewed and unremark able except as noted in history and below Exam Constitutional Vital Signs, click to edit/add: Last Vital Signs Temp 97.6 F 04/26/23 00:47 Pulse 70 04/26/23 06:25 Resp 16 04/26/23 06:25 BP 150/75 H 04/26/23 06:25 Pulse Ox 96 04/26/23 06:25 O2 Del Method Room Air 04/26/23 00:47 Common normals: oriented x3, alert and well nourished Eye Common normals: EOMs intact bilaterally and conjunctivae normal Respiratory Common normals: normal respiratory effort, no retractions, no use of accessory muscles and clear to auscultation bilaterally Cardio Common normals: regular rate, regular rhythm, S1 normal heart sound and S2 normal heart sound GI Common normals: Normal to inspection, nondistended, normoactive bowel sounds present, soft to palpation and non-tender Back & Pelvis Other: tenderness L-spine Extremity Common normals: normal to inspection Other: edema bilat lower ext. Neuro Common normals: oriented x3, CN's II-XII intact bilaterally and moves all extremities Psych Appearance: grossly normal Course Vital Signs Vital signs: Vital Signs Temperature 97.6 F 04/26/23 00:47 Pulse Rate 61 04/26/23 00:47 Respiratory Rate 20 04/26/23 00:47 Blood Pressure 163/94 H 04/26/23 00:47 Pulse Oximetry 97 04/26/23 00:47 Oxygen Delivery Method Room Air 04/26/23 00:47 Temperature 97.6 F 04/26/23 00:47 Pulse Rate 70 04/26/23 06:25 Respiratory Rate 16 04/26/23 06:25 Blood Pressure 150/75 H 04/26/23 06:25 Pulse Oximetry 96 04/26/23 06:25 Oxygen Delivery Method Room Air 04/26/23 00:47 MDM - Back Pain/Injury MDM Narrative Medical decision making narrative: patient has past history of chronic back pain. Presents with acute on chronic lower back pain. Transferred to the ED via [facility]. Exam without neuro deficits. Pain improved and patient ambulatory with a cane in the department. Feeling better and discharged with a prescription of [place] and zanaflex Lab Data Labs: Lab Results 04/26/23 Range/Units 01:04 WBC 9.7 (4.0-11.0) 10^3/uL RBC 3.81 L (4.70-6.10) 10^6/uL Hgb 12.0 L (14.0-18.0) g/dL Hct 37.7 L (42.0-54.0) % MCV 99.0 H (80.0-94.0) fL MCH 31.5 (25.9-34.0) pg MCHC 31.8 (29.9-35.2) g/dL RDW 13.9 (11.0-15.0) % Plt Count 182 (150-450) 10^3/uL MPV 10.9 (9.5-13.5) fL Neut % (Auto) 74.7 (43.0-75.0) % Lymph % (Auto) 11.5 L (20.5-60.0) % [place] % (Auto) 8.0 (1.7-12.0) % Eos % (Auto) 4.7 (0.9-7.0) % Baso % (Auto) 0.8 (0.2-2.0) % Neut # (Auto) 7.2 H (1.4-6.5) 10^3/uL Lymph # (Auto) 1.1 L (1.2-3.8) 10^3/uL [place] # (Auto) 0.8 (0.3-0.8) 10^3/uL Eos # (Auto) 0.5 (0.0-0.7) 10^3/uL Baso # (Auto) 0.1 (0.0-0.1) 10^3/uL Abs Immat Gran (auto) 0.03 (0.00-0.03) 10^3/uL Imm/Tot Granulo (auto) 0.3 (0.0-0.5) % ESR 59 H (<=20) mm/hr Sodium 137 (136-145) mmol/L Potassium 4.8 (3.5-5.1) mmol/L Chloride 105 (98-107) mmol/L Carbon Dioxide 32.0 (21.0-32.0) mmol/L Anion Gap 4.8 BUN 38.0 H (7.0-18.0) mg/dL Creatinine 1.82 H (0.70-1.30) mg/dL Est GFR ( Amer) 43 L (>=60) Est GFR (Non-Af Amer) 36 L (>=60) BUN/Creatinine Ratio 20.9 Glucose 220 H (74-106) mg/dL Calcium 8.3 L (8.5-10.1) mg/dL C-Reactive Protein 0.65 H (<=0.50) mg/dL Imaging Data Chest x-ray: Radiologist's impression: ITS Impressions Lumbar Spine CT 04/26/23 00:54 IMPRESSION: 1. Multilevel degenerative changes superimposed upon a developmentally small canal with multilevel stenosis. Please see the detailed discussion of the individual levels in the body of this report. The appearance is similar to the prior examination. 2. No acute fracture or vertebral body collapse. Electronically authenticated by: RODRIGUEZ MATHEW Date: 04/26/2023 01:41 Discharge Plan Discharge Chief Complaint: Back Pain/Injury Clinical Impression: Low back pain Patient Disposition: Home, Self-Care Mode of Transportation: Private Vehicle Instructions: Acute Low Back Pain (ED) Additional Instructions: follow up with your doctor next week Stand Alone Forms: Portal Instructions Referrals: JASON CRUZ [Primary Care Provider] - 1 week Discharge Date/Time: 04/26/23 07:26
--- NOTE | 2023-04-26 00:54 | CT_ITS ---
The [address] [address] Patient Name: NAT MOORE MRN: [id number] date: 1940 Sex: M Assigned Patient Location: ER Current Patient Location: Accession/Order Number: [id number] Exam Date: 04/26/2023 01:10 Report Date: 04/26/2023 01:41 At the request of: LC VALLE Procedure: CT lumbar spine wo con CT lumbar spine wo con INDICATION: 82 years old; Male. Chronic back pain with recent worsening. Recent fall. TECHNIQUE: CT of the lumbar spine.Contrast None. Sagittal and coronal images as well as axial reconstructions through the disc spaces were produced. 3-D reformats were created and reviewed for better evaluation of the lumbar spine alignment. Ionizing radiation dose reduced via iterative reconstruction/FBP blend and body size kV/mA adjustment. COMPARISON: Lumbar CT dated 11/02/2022. FINDINGS: POSTOPERATIVE CHANGES: None ALIGNMENT AND LORDOSIS: Loss of normal lumbar lordosis. Scoliosis concave to the right centered at the L2-L3 level. VERTEBRAE: No fracture or vertebral body collapse is seen. No bone displacement is seen. No asymmetric widening of the facets. No spondylolysis or spondylolisthesis. No lytic or blastic lesions. DISC LEVELS: L1-L2: Disc space narrowing posteriorly. Endplate osteophyte formation and disc bulging. Facet degeneration. Central canal, neural foramina, and lateral recesses are patent. L2-L3: Vacuum disc degeneration. Disc space narrowing, disc bulging, endplate osteophyte formation, facet degeneration, ligamentous thickening. 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 There is severe circumferential compression of the thecal sac. Mild to moderate lateral recess stenosis is present. Moderate right-sided foraminal stenosis. L3-L4: Vacuum disc degeneration. Disc space narrowing posteriorly. Disc bulging and endplate osteophyte formation with facet degeneration ligamentous thickening superimposed upon a developmentally small canal. There is severe central canal stenosis. Neural foramina are patent. Lateral recesses are patent. L4-L5: Vacuum disc degeneration. Disc space narrowing, disc bulging, endplate osteophyte formation, vertebral endplate degeneration, and facet degeneration. Severe central canal stenosis is noted. Circumferential compression of the thecal sac is present. There is moderate to severe left and moderate right-sided foraminal stenosis. L5-S1: Disc space narrowing with xfbc-[id number]-wcan appearance and partial trabeculated fusion across the disc space. Endplate osteophyte formation and findings consistent with disc space height OPLL noted posteriorly. Moderate central canal stenosis. Facet degeneration. Moderate right and severe left foraminal stenosis. LOWER THORACIC DISCS: Disc space narrowing with anterior osteophyte formation at T11-T12 and T12-L1. The study does not visualize the distal cord or conus. The central canal is patent. OTHER: Posterior paraspinal muscle atrophy. Psoas muscles intact. Vascular calcifications. CT/CT lumbar spine wo con IMPRESSION: 1. Multilevel degenerative changes superimposed upon a developmentally small canal with multilevel stenosis. Please see the detailed discussion of the individual levels in the body of this report. The appearance is similar to the prior examination. 2. No acute fracture or vertebral body collapse. Electronically authenticated by: RODRIGUEZ MATHEW Date: 04/26/2023 01:41
--- OUTSIDE RECORDS SUMMARY | 2023-04-26 00:54 | XMS_ITS | CCD ---
Author Name Unknown Address [address] [place] [address] Organization [facility] Care Team Providers Care Song Writer Name Role Phone JUAN PABLO ALANIZ Primary [...] Unavailable ALANIZ, DR GOMEZ Primary Care Unavailable ROJSA ., SHELLIE Consulting Unavailable HOLCOMB ., DR [...] ANTHONY, DR GOMEZ Primary Care Unavailable AIDE, PETER D Admitting Unavailable EMILYANDER, MANDIE Goodman Attending Unavailable ERIK, Umer Schultz Attending Unavailable ERIKUmer Attending Unavailable JONATHAN PINTO Attending Unavailable Umer RUFFIN Attending Unavailable JONATHAN PINTO Attending Unavailable JUAN PABLO ALANIZ Attending Unavailable JUAN PABLO ALANIZ Attending Unavailable CHET SANDOVAL Attending Unavailable Allergies Allergy Classification Reported Allergen(s) Allergy Type Date of Onset Reaction(s) Facility (7 sources) Penicillin; Translations: [penicillin] Drug Allergy 12-01-2021 Hives [facility] (2 sources) Penicillins Drug allergy (disorder) [facility] Repository Medications Current Medications Medication Drug Class(es) [...] day(s), # 30 tab(s), Refills(s) 11, Pharmacy: FP Complete 1155, 167, cm, 09/16/22 15:10:00 EDT, Height/Length Dosing, 120, kg, 09/16/22 15:10:00 EDT, Weight Dosing Start Date: 09/16/22 Stop Date: 09/11/23 Status: Ordered Start: 04-26-2022 take 1 tablet by shannon th once daily Vesicare 5 mg Tab 5 mg = 1 tab(s), Oral, Daily, # 30 tab(s), Refills(s) 11, Pharmacy: [facility] Complete 1155, 174, cm, 12/03/21 13:40:00 EDT, Height/Length Dosing, 112, kg, 12/03/21 13:40:00 EDT, Weight Dosing Start Date: 04/26/22 Status: Ordered tamsulosin hydrochloride 0.4 mg oral capsule (5 sources) alpha-Adrenergic Callum Start: 10-25-2021 take 1 capsule by mouth once daily Flomax 0.4 mg Cap 0.4 mg = 1 cap(s), Oral, Daily, # 90 cap(s), Refills(s) 3, Pharmacy: FP Complete 1155, 174, cm, 09/03/21 13:40:00 EDT, Height/Length Dosing, 112.5, kg, 09/03/21 13:40:00 EDT, Weight Dosing Start Date: 10/25/21 Status: Ordered Start: 07-03-2021 take 1 capsule by mo uth once daily Flomax 0.4 mg Cap 0.4 mg = 1 cap(s), Oral, Daily, # 30 cap(s), Refills(s) 3, Pharmacy: FP Complete 1155, 174, cm, 07/17/20 5:39:00 EDT, Height/Length Dosing, 112.5, kg, 07/17/20 5:39:00 EDT, Weight Dosing Start Date: 07/03/21 Status: Ordered 24 hr tolterodine tartrate 4 mg extended release oral capsule (4 sources) Cholinergic Muscarinic Antagonist Start: 01-17-2021 take 1 capsule by mouth once daily tolterodine 4 mg Cap-ER 4 mg = 1 cap(s), Oral, Daily, # 30 cap(s), Refills(s) 11, Pharmacy: FP Complete 1155, 174, cm, 09/03/21 13:40:00 EDT, Height/Length [...] 09-03-2021 Chronic Other aftercare (1 source) Other manager wealth management (current) drug therapy; Translations: [OTH LONGTERM CURRENT DRUG THERAPY] Onset: 07-31-2022 Episodic Other aftercare (1 source) custodial (current) use of oral hypoglycemic drugs; Translations: [LONGTERM USE ORAL HYPOGLYCEMIC DX] Onset: 07-31-2022 Episodic [...] OF COVID-19] Onset: 03-06-2022 Unclassified (1 source) LONGTERM INJECT NONINSULN ANTIDIAB; Translations: [EVP [employer] LEADERSHIP INJECT NONINSULN ANTIDIAB] Onset: 03-02-2022 Past or [...] Visit Summaryon 0 09-16-2022 Ambulatory Visit Summary NAT MALONE :1940 Visit Date:09/16/2022 Ambulatory Visit Instructions Your Diagnosis Urge incontinence BPH with obstruction/lower urinary tract symptoms Your Care Team Attending Physician - ERIK MENG, Umer Schultz Primary Care Physician - JUAN PABLO ALANIZ [...] MENG, Umer Schultz Where: [facility] Normal [facility] Patient Educationon 09-17-19 23 Patient Education Obstetrics and Gynecology Overactive Bladder, [...] health care provider. General instructions ? Take depq-tnn-lospcey and prescription medicines only as told by [...] monitor yo (more content not included)... Normal [facility] Office/Clinic Noteon 09-16-2022 Urology Office/Clinic Note [...] Schultz, UR [facility] [address], [place] [address]- Additional Instructions: 3 mos to increasing vesicare Patient Education Overactive Bladder, Adult I, Fawn Yost, personally scribed for Dr. Ruffin on 09/16/2022 15:39:58. . Documentation recorded by the scribeFawn, accurately reflects the services(s) I performed and [...] virus vaccine, inactivated 12/21/2014 Recorded Normal [facility] Comment on above: Result Comment: Elec tronically Signed By: Umer RUFFIN MD\.br\Date and Time Signed: 09/16/22 15:42 EDT\.br\Electronically Co-Signed By: Fawn Yost\.br\Date and Time Co-Signed: 09/16/22 15:41 EDT BNPon 07-27-2022 Natriuretic peptide B (Bld) [Mass/Vol] 178.0 pg/mL Normal <=1,800.0 [facility] Comment on above: Performed By: #### C MP, BNP, CMADM #### [facility] [address] [place] [address] Dr. Loyd Parks CARDIAC SPARKLE ADMITon 023 CK [Catalytic activity/Vol] 50 U/L Normal 39-308 [facility] Comment on above: Performed By: #### C MP, BNP, CMADM #### [facility] [address] [address] [address] Loyd Parks CK.MB [Mass/Vol] 0.83 ng/mL Normal <=3.60 [facility] Comment on above: Performed By: #### C MP, BNP, CMADM #### [facility] [address] [address] [address] Loyd Parks HSTROP 6.3 pg/mL Normal 4.0-76.1 [facility] Comment on above: Result Comment: CUT- OFF POINTS HAVE BEEN ESTABLISHED BASED ON THE FOURTH UNIVERSAL DEFINITIONS OF MYOCARDIAL INFARCTION. THE UPPER REFERENCE LIMIT (URL) OF TROPONIN, DEFINED THE 99TH PERCENTILE OF cTnI DISTRIBUTION IN A REFERENCE POPULATION, HAS BEEN CONFIRMED THE DECISION THRESHOLD FOR ME DIAGNOSIS. Performed By: #### C MP, BNP, CMADM #### [facility] [address] [address] [address] Loyd Parks WM 121 ng/mL Critically high 16-96 [facility] Comment on above: Performed By: #### C MP, BNP, CMADM #### [facility] [address] [address] [address] Loyd Parks CBC AUTO DIFFon 07-27-2022 BASO # 0.1 103/ul Normal 0.0-0.1 [facility] Comment on above: Performed By: #### C BC #### [facility] [address] [address] [address] Loyd Parks Basophils/100 WBC (Bld) 0.6 % Normal 0.2-2.0 [facility] Comment on above: Performed By: #### C BC #### [facility] [address] [address] [address] Loyd Parks EO # 0.5 103/ul Normal 0.0-0.7 [facility] Comment on above: Performed By: #### C BC #### [facility] [address] [address] [address] Loyd Parks Eosinophils/100 WBC (Bld) 4.8 % Normal 0.9-7.0 [facility] Comment on above: Performed By: #### C BC #### [facility] [address] [place] [address] Dr. Loyd Parks Erythrocyte distribution width (RBC) [Ratio] 13.5 % Normal 11.0-15.0 [facility] Comment on above: Performed By: #### C BC #### [facility] [address] [place] [address] Dr. Loyd Parks Hematocrit (Bld) [Volume fraction] 39.7 % Critically low 42.0-54.0 [facility] Comment on above: Performed By: #### C BC #### [facility] [address] [place] [address] Dr. Loyd Parks Hemoglobin (Bld) [Mass/Vol] 13.1 g/dL Critically low 14.0-18.0 [facility] Comment on above: Performed By: #### C BC #### [facility] [address] [place] [address] Dr. Loyd Parks IG # 0.05 10e3/ul Critically high 0.00-0.03 [facility] Comment on above: Performed By: #### C BC #### [facility] [address] [place] [address] Dr. Loyd Parks IG % 0.5 % Normal 0.0-0.5 [facility] Comment on above: Performed By: #### C BC #### [facility] [address] [place] [address] Dr. Loyd Parks LYMPH # 1.4 103/ul Normal 1.2-3.8 [facility] Comment on above: Performed By: #### C BC #### [facility] [address] [place] [address] Dr. Loyd Parks Lymphocytes/100 WBC (Bld) 14.1 % Critically low 20.5-60.0 [facility] Comment on above: Performed By: #### C BC #### [facility] [address] [place] [address] Dr. Loyd Parks MANUAL DIFF REQ NO Normal [facility] Comment on above: Performed By: #### C BC #### [facility] [address] [address] [address] Loyd Parks MCH (RBC) [Entitic mass] 31.6 pg Normal 25.9-34.0 [facility] Comment on above: Performed By: #### C BC #### [facility] [address] [place] [address] Dr. Loyd Parks MCHC (RBC) [Mass/Vol] 33.0 g/dL Normal 29.9-35.2 [facility] Comment on above: Performed By: #### C BC #### [facility] [address] [place] [address] Dr. Loyd Parks MCV (RBC) [Entitic vol] 95.7 fL Critically high 80.0-94.0 [facility] Comment on above: Performed By: #### C BC #### [facility] [address] [place] [address] Dr. Loyd Parks MONO # 1.0 103/ul Critically high 0.3-0.8 [facility] Comment on above: Performed By: #### C BC #### [facility] [address] [place] [address] Dr. Loyd Parks Monocytes/100 WBC (Bld) 9.7 % Normal 1.7-12.0 [facility] Comment on above: Performed By: #### C BC #### [facility] [address] [place] [address] Dr. Loyd Parks NEUT # 7.2 103/ul Critically high 1.4-6.5 [facility] Comment on above: Performed By: #### C BC #### [facility] [address] [place] [address] Dr. Loyd Parks Neutrophils/100 WBC (Bld) 70.3 % Normal 43.0-75.0 [facility] Comment on above: Performed By: #### C BC #### [facility] [address] [place] [address] Dr. Loyd Parks Platelet mean volume (Bld) [Entitic vol] 10.8 fL Normal 9.5-13.5 [facility] Comment on above: Performed By: #### C BC #### [facility] [address] [address] [address] Loyd Parks PLT 199 103/ul Normal 150-450 [facility] Comment on above: Performed By: #### C BC #### [facility] [address] [id number] [address] Loyd Parks RBC 4.15 106/ul Critically low 4.70-6.10 [facility] Comment on above: Performed By: #### C BC #### [facility] [address] [address] [address] Loyd Parks WBC 10.2 103/ul Normal 4.0-11.0 [facility] Comment on above: Performed By: #### C BC #### [facility] [address] [place] [address] Dr. Loyd Parks CULTURE BLOODon 07-27-2022 Microscopic examination of blood, culture Culture Observations: NO GROWTH AT 5 DAYS. Normal [facility] Comment on above: Performed By: #### E RUR #### [facility] [address] [address] [address] Loyd Parks [facility]on SARS-CoV-2 (COVID-19) RNA SAUNDRA+probe Ql (Unsp spec) Not detected Normal NOT DETECTED [facility] Comment on above: Result Comment: This test is not yet approved or cleared by the [place] FDA. When there are no FDA-approved or cleared tests available, and other criteria are met, FDA can make tests available under an emergency access mechanism called an Emergency Use Authorization (EUA). The EUA for this test is supported by the [place] of Health and Human Service's (HHS's) declaration [...] SARS-CoV-2. Performed By: #### E RUR #### [facility] [address] [place] [address] Dr. Loyd Parks LACTATE/LACTIC ACIDon 2022 Lactate [Moles/Vol] 2.2 mmol/L Critically high 0.4-2.0 [facility] Comment on above: Performed By: #### C MP, BNP, CMADM #### [facility] [address] [place] [address] Dr. Loyd Parks PROF 14(COMP METB)on 023 Albumin [Mass/Vol] 3.3 g/dL Critically low 3.4-5.0 [facility] Comment on above: Performed By: #### C MP, BNP, CMADM #### [facility] [address] [place] [address] Dr. Loyd Parks Albumin/Globulin [Mass ratio] 0.9 {ratio} Normal [facility] Comment on above: Performed By: #### C MP, BNP, CMADM #### [facility] [address] [place] [address] Dr. Loyd Parks ALP [Catalytic activity/Vol] 91 U/L Normal 46-116 [facility] Comment on above: Performed By: #### C MP, BNP, CMADM #### [facility] [address] [place] [address] Dr. Loyd Parks ALT [Catalytic activity/Vol] 18 U/L Normal 16-63 [facility] Comment on above: Performed By: #### C MP, BNP, CMADM #### [facility] [address] [place] [address] Dr. Loyd Parks Anion gap [Moles/Vol] 12.2 mmol/L Normal [facility] Comment on above: Performed By: #### C MP, BNP, CMADM #### [facility] [address] [place] [address] Dr. Loyd Parks AST [Catalytic activity/Vol] 15 U/L Normal 15-37 [facility] Comment on above: Performed By: #### C MP, BNP, CMADM #### [facility] [address] [place] [address] Dr. Loyd Parks Bilirubin [Mass/Vol] 0.4 mg/dL Normal 0.2-1.0 [facility] Comment on above: Performed By: #### C MP, BNP, CMADM #### [facility] [address] [place] [address] Dr. Loyd Parks Calcium [Mass/Vol] 8.7 mg/dL Normal 8.5-10.1 [facility] Comment on above: Performed By: #### C MP, BNP, CMADM #### [facility] [address] [place] [address] Dr. Loyd Parks Chloride [Moles/Vol] 105 mmol/L Normal 98-107 [facility] Comment on above: Performed By: #### C MP, BNP, CMADM #### [facility] [address] [place] [address] Dr. Loyd Parks CO2 [Moles/Vol] 28.0 mmol/L Normal 21.0-32.0 [facility] Comment on above: Performed By: #### C MP, BNP, CMADM #### [facility] [address] [place] [address] Dr. Loyd Parks Creatinine [Mass/Vol] 2.25 mg/dL Critically high 0.70-1.30 [facility] Comment on above: Performed By: #### C MP, BNP, CMADM #### [facility] [address] [place] [address] Dr. Loyd Parks EGFR-AF IRAQI 34 mL/min/1.73m2 Critically low >=60 [facility] Comment on above: Performed By: #### C MP, BNP, CMADM #### [facility] [address] [place] [address] Dr. Loyd Parks EGFR-NON AF IRAQI 28 mL/min/1.73m2 Critically low >=60 [facility] Comment on above: Performed By: #### C MP, BNP, CMADM #### [facility] [address] [address] [address] Loyd Parks Globulin (S) [Mass/Vol] 3.8 g/dL Normal [facility] Comment on above: Performed By: #### C MP, BNP, CMADM #### [facility] [address] [address] [address] Loyd Parks Glucose [Mass/Vol] 88 mg/dL Normal 74-106 [facility] Comment on above: Performed By: #### C MP, BNP, CMADM #### [facility] [address] [address] [address] Loyd Parks Potassium [Moles/Vol] 4.2 mmol/L Normal 3.5-5.1 [facility] Comment on above: Performed By: #### C MP, BNP, CMADM #### [facility] [address] [address] [address] Loyd Parks Protein [Mass/Vol] 7.1 g/dL Normal 6.4-8.2 [facility] Comment on above: Performed By: #### C MP, BNP, CMADM #### [facility] [address] [address] [address] Loyd Parks Sodium [Moles/Vol] 141 mmol/L Normal 136-145 [facility] Comment on above: Performed By: #### C MP, BNP, CMADM #### [facility] [address] [address] [address] Loyd Parks Urea nitrogen [Mass/Vol] 36.0 mg/dL Critically high 7.0-18.0 [facility] Comment on above: Performed By: #### C MP, BNP, CMADM #### [facility] [address] [address] [address] Loyd Parks Urea nitrogen/Creatinine [Mass ratio] 16.0 mg/mg Normal [facility] Comment on above: Performed By: #### C MP, BNP, CMADM #### [facility] [address] [address] [address] Loyd Parks PROTIMEon 05-06-2023 INR Coag (PPP) [Relative time] 0.95 {INR} Normal [facility] Comment on above: Performed By: #### P T, PTT #### [facility] [address] [place] [address] Dr. Loyd Parks INR GUIDELINES SEE BELOW Normal [facility] Comment on above: Result Comment: MARIE RED INR: 2.0 - 3.0 CONDITIONS NOT LISTED BELOW 2.5 - 3.5 FOR PROSTHETIC HEART VALVE REPLACEMENT 2.5 - 3.5 RECURRENT THROMBOSIS Performed By: #### P T, PTT #### [facility] [address] [place] [address] Dr. Loyd Parks PT Coag (PPP) [Time] 10.1 s Normal 9.0-11.6 [facility] Comment on above: Performed By: #### P T, PTT #### [facility] [address] [place] [address] Dr. Loyd Parks PTTon 07-27-2022 aPTT Coag (Bld) [Time] 27.3 s Normal 22.3-36.2 [facility] Comment on above: Performed By: #### P T, PTT #### [facility] [address] [place] [address] Dr. Loyd Parks SYMPTOMATIC COVID-19 ANTIGEN on 07-27-2022 EUA Statement SEE BELOW Normal [facility] Comment on above: Result Comment: This test [...] sooner. Performed By: #### C VDAGS #### [facility] [address] [address] [address] Loyd Parks SARS-CoV-2 (COVID-19) RNA SAUNDRA+probe Ql (Unsp spec) Negative Normal NEGATIVE [facility] Comment on above: Performed By: #### C VDAGS #### [facility] [address] [address] [address] Loyd Parks XR CHEST 2 Von [...] ELIUD KAUR Date: 2022-07-26 22:19 Normal [facility] Provider Letteron 06-25-2022 Provider Letter (Inserted Image. Yasmeen ble to display) June 25, 2022 NAT MALONE [address] [place] [address] NAT MALONE 1940 Dear Mr. Malone , [...] prompt attention to this matter. Please call [phone] as soon as able. Sincerely, [facility] [address], [place] [address] Normal [facility] Ambulatory Visit Summaryon 0 04-26-2022 Ambulatory Visit Summary NAT MALONE :1940 Visit Date:04/26/2022 Ambulatory Visit Instructions Your Diagnosis BPH with obstruction/lower urinary tract symptoms Feeling of incomplete bladder emptying Urge incontinence Tests Performed Urnls Dip Stick Auto w/o Microscopy POC 10824 Your Care Team Attending Physician - Umer RUFFIN MD Primary Care Physician - JUAN PABLO ALANIZ [...] Umer RUFFIN MD Where: [facility] Patient Educationon 04-26-19 Patient Education Urology Benign [...] Follow these instructions at home: ? Take sruc-byw-hkffyru and prescription medicines only as told by [...] You d (more content not included)... Normal [facility] Office/Clinic Noteon 04-26-2022 Urology Office/Clinic Note [...] Contact Information ERIK MENG, Umer Schultz, [address] [place] [address]- Additional Instructions: 3 months Patient Education Benign [...] virus vaccine, (more content not included)... Normal [facility] Comment on above: Result Comment: Elec tronically Signed By: ERIK MENG, Umer Powell\Date and Time Signed: 04/26/22 11:37 EST\.br\Electronically Co-Signed By: Jacquelyn Fontana\.br\Date and Time Co-Signed: 04/26/22 11:35 EST POINT OF CARE GLUCOSEon 03-25 Glucose [Mass/Vol] 102 mg/dL Normal 74-106 [facility] Comment on above: Performed By: #### C MP, BNP, CMADM #### [facility] [address] [address] [address] Loyd Parks Patient Educationon 04-08-19 Patient [...] Follow these instructions at home: ? Take jkde-zyr-xacawsk and prescription medicines only as told by [...] You d (more content not included)... Normal [facility] ER URINE PROFILEon 2 Bilirubin Ql (U) Negative Normal NEGATIVE [facility] Comment on above: Performed By: #### E RUR #### [facility] [address] [place] [address] Dr. Loyd Parks Clarity (U) CLEAR Normal CLEAR [facility] Comment on above: Performed By: #### E RUR #### [facility] [address] [place] [address] Dr. Loyd Parks Color (U) LT. YELLOW Normal YELLOW [facility] Comment on above: Performed By: #### E RUR #### [facility] [address] [place] [address] Dr. Loyd CONWAY A micrscopic examina tion will be performed if indicated. Normal [facility] Comment on above: Performed By: #### E RUR #### [facility] [address] [place] [address] Dr. Loyd Parks Glucose Ql (U) 100 mg/dl Abnormal NEGATIVE [facility] Comment on above: Performed By: #### E RUR #### [facility] [address] [place] [address] Dr. Loyd Parks Hemoglobin Ql (U) Negative Normal NEGATIVE [facility] Comment on above: Performed By: #### E RUR #### [facility] [address] [place] [address] Dr. Loyd Parks Ketones Ql (U) Negative Normal NEGATIVE [facility] Comment on above: Performed By: #### E RUR #### [facility] [address] [place] [address] Dr. Loyd Parks LEUKOCYTES Negative Normal NEGATIVE [facility] Comment on above: Performed By: #### E RUR #### [facility] [address] [place] [address] Dr. Loyd Parks Nitrite Ql (U) Negative Normal NEGATIVE [facility] Comment on above: Performed By: #### E RUR #### [facility] [address] [place] [address] Dr. Loyd Parks pH (U) 5.5 [pH] Normal 5-9 [facility] Comment on above: Performed By: #### E RUR #### [facility] [address] [place] [address] Dr. Loyd Parks SPEC GRAVITY 1.015 Normal 1.005-<=1.025 [facility] Comment on above: Performed By: #### E RUR #### [facility] [address] [place] [address] Dr. Loyd Parks UA PROTEIN Negative Normal NEGATIVE/ TRACE [facility] Comment on above: Performed By: #### E RUR #### [facility] [address] [place] [address] Dr. Loyd Parks UR MICRO IND NOT INDICATED Normal [facility] Comment on above: Performed By: #### E RUR #### [facility] [address] [place] [address] Dr. Loyd Parks Urobilinogen Qn (U) 0.2 {Malcolm'U}/dL Normal 0.2 - 1. 0 [facility] Comment on above: Performed By: #### E RUR #### [facility] [address] [place] [address] Dr. Loyd Parks GROUP A STREP CULTUREon 02-21 S. pyogenes Ag Ql (Unsp spec) Culture Observations: NEGATIVE FOR GROUP A STREPTOCOCCUS. Normal [facility] Comment on above: Performed By: #### S SCRN, GRASTCX #### [facility] [address] [place] [address] Dr. Loyd Parks STREPT SCREENon 03-03-2022 STREP SCREEN A Negative Normal NEGATIVE [facility] Comment on above: Performed By: #### S SCRN GRASTCX #### [facility] [address] [address] [address] Loyd Parks [facility]on SARS-CoV-2 (COVID-19) RNA SAUNDRA+probe Ql (Unsp spec) Not detected Normal NOT DETECTED [facility] Comment on above: Result Comment: This test is not yet approved or cleared by the [place] FDA. When there are no FDA-approved or cleared tests available, and other criteria are met, FDA can make tests available under an emergency access mechanism called an Emergency Use Authorization (EUA). The EUA for this test is supported by the Silver Service Waiter of Health and Human Service's (HHS's) declaration [...] By: #### C MP, BNP, CMADM #### [facility] [address] [address] [address] Loyd Parks POINT OF CARE GLUCOSEon 10- Glucose [Mass/Vol] 133 mg/dL Critically high 74-106 [facility] Comment on above: Performed By: #### E RUR #### [facility] [address] [place] [address] Dr. Loyd Parks POINT OF CARE GLUCOSEon 09-0 Glucose [Mass/Vol] 75 mg/dL Normal 74-106 [facility] Comment on above: Performed By: #### E RUR #### [facility] [address] ABD/PELVIS WO CONon 09-03 CT [...] SAURABH SINGH Date: 2021-09-03 08:35 Normal [facility] ER URINE PROFILEon 2 Bilirubin Ql (U) Negative Normal NEGATIVE [facility] Comment on above: Performed By: #### E RUR #### [facility] [address] [place] [address] Dr. Loyd Parks Clarity (U) CLEAR Normal CLEAR [facility] Comment on above: Performed By: #### E RUR #### [facility] [address] [place] [address] Dr. Loyd Parks Color (U) LT. YELLOW Normal YELLOW [facility] Comment on above: Performed By: #### E RUR #### [facility] [address] [place] [address] Dr. Lyod Parks ERUAHD A micrscopic examina tion will be performed if indicated. Normal [facility] Comment on above: Performed By: #### E RUR #### [facility] [address] [place] [address] Dr. Loyd Parks Glucose Ql (U) >1000 Abnormal NEGATIVE [facility] Comment on above: Performed By: #### E RUR #### [facility] [address] [place] [address] Dr. Loyd Parks Hemoglobin Ql (U) Negative Normal NEGATIVE [facility] Comment on above: Performed By: #### E RUR #### [facility] [address] [place] [address] Dr. Loyd Parks Ketones Ql (U) Negative Normal NEGATIVE [facility] Comment on above: Performed By: #### E RUR #### [facility] [address] [place] [address] Dr. Loyd Parks LEUKOCYTES Negative Normal NEGATIVE [facility] Comment on above: Performed By: #### E RUR #### [facility] [address] [place] [address] Dr. Loyd Parks Nitrite Ql (U) Negative Normal NEGATIVE [facility] Comment on above: Performed By: #### E RUR #### [facility] [address] [place] [address] Dr. Loyd Parks pH (U) 6.0 [pH] Normal 5-9 [facility] Comment on above: Performed By: #### E RUR #### [facility] [address] [place] [address] Dr. Loyd Parks SPEC GRAVITY 1.010 Normal 1.005-<=1.025 [facility] Comment on above: Performed By: #### E RUR #### [facility] [address] [place] [address] Dr. Loyd Parks UA PROTEIN Negative Normal NEGATIVE/ TRACE [facility] Comment on above: Performed By: #### E RUR #### [facility] [address] [place] [address] Dr. Loyd Parks UR MICRO IND NOT INDICATED Normal [facility] Comment on above: Performed By: #### E RUR #### [facility] [address] [place] [address] Dr. Loyd Parks Urobilinogen Qn (U) 0.2 {Malclom'U}/dL Normal 0.2 - 1. 0 [facility] Comment on above: Performed By: #### E RUR #### [facility] [address] [place] [address] Dr. Loyd Parks ALCOHOLon 07-31-2020 Ethanol [Mass/Vol] mg/dL Normal [facility] Comment on above: Result Comment: FOR MEDICAL USE ONLY. . REF VALUES <10 Performed By: #### A LC ####[facility] [place] [address] CBC AND DIFFERENTIALon 07-31 % AUTOMATED IMMATURE GRAN 0.4 % Normal 0.0 - 0.9 [facility] Comment on above: Result Comment: Rylie ture Granulocyte Count (IG) includes promyelocytes, myelocytes and metamyelocytes but does not include bands. Percent differential counts (%) should be interpreted in the context of the absolute cell counts (cells/L). Performed By: #### C BCDF #### [facility] [address] [place] [address] Basophils (Bld) [#/Vol] 0.05 10*3/uL Normal 0.00 - 0.10 [facility] Comment on above: Performed By: #### C BCDF #### [facility] [id number] [place] [address] Basophils/100 WBC (Bld) 0.6 % Normal 0.0 - 2.0 [facility] Comment on above: Performed By: #### C BCDF #### [facility] [id number] [place] [address] Eosinophils (Bld) [#/Vol] 0.21 10*3/uL Normal 0.00 - 0.40 [facility] Comment on above: Performed By: #### C BCDF #### [address] [address] Eosinophils/100 WBC (Bld) 2.4 % Normal 0.0 - 6.0 [facility] Comment on above: Performed By: #### C BCDF #### [facility] [id number] [place] [address] Erythrocyte distribution width (RBC) [Ratio] 13.2 % Normal 11.5 - 14.5 [facility] Comment on above: Performed By: #### C BCDF #### [facility] [id number] [place] [address] Hematocrit (Bld) [Volume fraction] 50.0 % Normal 41.0 - 52.0 [facility] Comment on above: Performed By: #### C BCDF #### [facility] [id number] [place] [address] Hemoglobin (Bld) [Mass/Vol] 17.3 g/dL Normal 13.5 - 17.5 [facility] Comment on above: Performed By: #### C BCDF #### [facility] [id number] [place] [address] Lymphocytes (Bld) [#/Vol] 1.59 10*3/uL Normal 0.80 - 3.00 [facility] Comment on above: Performed By: #### C BCDF #### [facility] [address] [place] [address] Lymphocytes/100 WBC (Bld) 17.9 % Normal 13.0 - 44.0 [facility] Comment on above: Performed By: #### C BCDF #### [facility] [address] [place] [address] MCHC (RBC) [Mass/Vol] 34.6 g/dL Normal 32.0 - 36.0 [facility] Comment on above: Performed By: #### C BCDF #### [facility] [address] [place] [address] MCV (RBC) [Entitic vol] 89 fL Normal 80 - 100 [facility] Comment on above: Performed By: #### C BCDF #### [facility] [address] [facility] [place] [address] Monocytes (Bld) [#/Vol] 0.82 10*3/uL High 0.05 - 0.80 [facility] Comment on above: Performed By: #### C BCDF #### [facility] [address] [facility] [place] [place] [address] Monocytes/100 WBC (Bld) 9.2 % Normal 2.0 - 10.0 [facility] Comment on above: Performed By: #### C BCDF #### [facility] [address] [facility] [place] [place] [address] Neutrophils (Bld) [#/Vol] 6.18 10*3/uL High 1.60 - 5.50 [facility] Comment on above: Performed By: #### C BCDF #### [facility] [address] [facility] [place] [place] [address] Neutrophils/100 WBC (Bld) 69.5 % Normal 40.0 - 80.0 [facility] Comment on above: Performed By: #### C BCDF #### [facility] [address] [facility] [place] [place] [address] Platelets (Bld) [#/Vol] 215 10*3/uL Normal 150 - 450 [facility] Comment on above: Performed By: #### C BCDF #### [facility] [address] [facility] [place] [place] [address] RBC 5.59 x10E12/L Normal 4.50 - 5.90 [facility] Comment on above: Performed By: #### C BCDF #### [facility] [address] [facility] [place] [place] [address] WBC (Bld) [#/Vol] 8.9 10*3/uL Normal 4.4 - 11.3 [facility] Comment on above: Performed By: #### C BCDF #### [facility] [address] [place] [address] CHEST 1 VIEWon 07-31-2020 CHEST 1 VIEW STUDY: Chest Radiograph; 07/30/2020 10:53 PM INDICATION: Shortness of breath. COMPARISON: None available. ACCESSION NUMBER(S): [id number] ORDERING CLINICIAN: ZAID YU DO TECHNIQUE: Frontal chest was obtained at 2355 hours. FINDINGS: CARDIOMEDIASTINAL SILHOUETTE: Cardiomediastinal silhouette is normal in size and configuration. LUNGS: Lungs are clear. ABDOMEN: No remarkable upper abdominal findings. BONES: No acute osseous changes. IMPRESSION: No acute pulmonary abnormality. Signed by Rodrick Anna MD Electronically signed by: RODRICK ANNA MD Normal [facility] COMPREHENSIVE PANELon 2020 Albumin [Mass/Vol] 3.7 g/dL Normal 3.4 - 5.0 [facility] Comment on above: Performed By: #### C MP ####[facility] [place] [address] ALP [Catalytic activity/Vol] 80 U/L Normal 33 - 136 [facility] Comment on above: Performed By: #### C MP ####[facility] [facility] [place] [address] ALT [Catalytic activity/Vol] 12 U/L Normal 10 - 52 [facility] Comment on above: Result Comment: Jade ents treated with Sulfasalazine may generate falsely decreased results for ALT. Performed By: #### C MP ####[facility] [place] [address] Anion gap [Moles/Vol] 13 mmol/L Normal 10 - 20 [facility] Comment on above: Performed By: #### C MP ####[facility] [place] [address] AST [Catalytic activity/Vol] 12 U/L Normal 9 - 39 [facility] Comment on above: Performed By: #### C MP ####[facility] [place] [address] Bilirubin [Mass/Vol] 0.7 mg/dL Normal 0.0 - 1.2 [facility] Comment on above: Performed By: #### C MP ####[facility] [place] [address] Calcium [Mass/Vol] 9.2 mg/dL Normal 8.6 - 10.3 [facility] Comment on above: Performed By: #### C MP ####[facility] [place] [address] Chloride [Moles/Vol] 101 mmol/L Normal 98 - 107 [facility] Comment on above: Performed By: #### C MP ####[facility] [place] [address] Creatinine [Mass/Vol] 1.36 mg/dL High 0.50 - 1.30 [facility] Comment on above: Performed By: #### C MP ####[facility] [place] [address] GFR- AM. 61 mL/min/1.73m2 Normal >60 [facility] Comment on above: Result Comment: CALC ULATIONS OF ESTIMATED GFR ARE PERFORMED USING THE MDRD STUDY EQUATION FOR THE IDMS-TRACEABLE CREATININE METHODS. CLIN CHEM 2007;53:766-72 Performed By: #### C MP ####[facility] [place] [address] GFR-NON AM. 50 mL/min/1.73m2 Abnormal >60 [facility] Comment on above: Performed By: #### C MP ####[facility] [place] [address] Glucose [Mass/Vol] 390 mg/dL High 74 - 99 [facility] Comment on above: Performed By: #### C MP ####[facility] [place] [address] HCO3 (Bld) [Moles/Vol] 27 mmol/L Normal 21 - 32 [facility] Comment on above: Performed By: #### C MP ####[facility] [place] [address] Potassium [Moles/Vol] 4.1 mmol/L Normal 3.5 - 5.3 [facility] Comment on above: Performed By: #### C MP ####[facility] [place] [address] Protein [Mass/Vol] 6.8 g/dL Normal 6.4 - 8.2 [facility] Comment on above: Performed By: #### C MP ####[facility] [place] [address] Sodium [Moles/Vol] 137 mmol/L Normal 136 - 145 [facility] Comment on above: Performed By: #### C MP ####[facility] [place] [address] Urea nitrogen [Mass/Vol] 27 mg/dL High 6 - 23 [facility] Comment on above: Performed By: #### C MP ####[facility] [place] [address] CT HEAD WO CONTRASTon 2020 CT HEAD WO CONTRAST STUDY: CT Head without IV Contrast; 07/30/2020, 11:52 PM. INDICATION: Confusion, disorientation. COMPARISON: None Available. ACCESSION NUMBER(S): [id number] ORDERING CLINICIAN: ZAID YU DO TECHNIQUE: Noncontrast [...] Electronically signed by: RODRICK ANNA MD Normal [facility] MAGNESIUMon 07-31-2020 Magnesium [Mass/Vol] 2.04 mg/dL Normal 1.60 - 2.40 [facility] Comment on above: Performed By: #### M G #### [facility] [address] [place] [address] PT/INRon 07-31-2020 PT Coag (PPP) [Time] 12.0 s Normal 10.1 - 13.3 [facility] Comment on above: Performed By: #### P TINR #### [facility] [address] [place] [address] PT, INR 1.0 Normal 0.9 - 1.1 [facility] Comment on above: Performed By: #### P TINR #### [facility] [address] [place] [address] Provider Note - ED v2on 07-22 Provider Note - ED v2 Provider Note - ED v2: Chart Review: ED NOTES ED NOTES: History: This is an 80-year-old male presenting from the [facility] by [facility] for chief complaint of a medical evaluation. Patient left his home in [place] 3 days ago because he got into an argument with his and he has not been back since. He was finally located at a [facility] down the street when family called. 911 [...] From Triage - ED 30-Jul-2020 23:17 Normal [facility] Risk Screen - Adult Emergenc yon [...] instruction; written material Cultural Considerationsnone Developmental Considerationsnone Jehovah'S Witness Considerationsnone Learning Assessment (Other Learner): Learning Assessment (Other Learner): Other learner availableno Pressure Injury/TB/Substance: Pressure Injury: Do you have a coughno Substance Use Current or Former Historynever: Cigarette/Tobacco, e-Cigarette/Vaping, Alcohol, Street Drugs Admission Risk Screen: Significant IndicatorsComplete CAGE: CAGE: Is this an injured patient at a Trauma Center ([facility]): no Electronic Signatures: Elizabeth Ivan (RN) (Signed 30-Jul-2020 23:24) Authored: Preferred Language, Advanced Directives, Family Violence Adult, Learning Assessment (Patient), Learning Assessment (Other Learner), Pressure Injury/TB/Substance, Pressure Injury, CAGE Last Updated: 30-Jul-2020 23:24 by Elizabeth Ivan (RN) Normal [facility] TROPONIN Ion 07-31-2020 Troponin I.cardiac [Mass/Vol] ng/mL Normal 0.00 - 0.03 [facility] Comment on above: Result Comment: LESS [...] is performed using different testing methodology at [facility] than at other [facility] hospital. Direct result comparisons should only be made within the same method. Performed By: #### T ROP2 #### [facility] [address] [place] [address] Triage - EDon 07-31-2020 Triage - ED Quick Triage: The patient and/or guardian verbally acknowledges placement for services into the following (when Urgent Care Service hours are operating):emergency department Chart Review: PRIMARY ASSESSMENT NAT MALONE'tyson primary assessment is Within Defined Limits. The airway is open and patent. Breathing spontaneous and unlabored with clear breath sounds bilaterally. Circulation is normal with good peripheral pulses. Skin is warm and dry and color is normal for race. ARRIVAL INFORMATION Means of Arrival: stretcher Mode of Arrival: ambulance Agency: City Agency Name: [facility] Accompanied By: deputy fire chief Language: Spoken Language Preferred: Danish Reading Language Preferred: Danish CHIEF COMPLAINT NAT MALONE is a Male patient with a chief complaint of altered mental status. Triage Date/Time: 30-Jul-2020 22:50 LAILA: 3 Pain Rating (0-10): 0 = None Vital Signs: Temperature: 96.8F ( 36.0C) taken temporal Blood Pressure: 166/103 Mean: Heart Rate: 94 Respiratory Rate: 18 Pulse Oximetry: 97% on room air, no respiratory support. Weight: 230.3 pounds. Calculated 104.5 kg. (stated) [place] Coma Scale: Best Eye Response: (E4) spontaneous Best Motor Response: (M6) obeys commands Best Verbal Response: (V5) oriented [place] Score: 15 Allergies: yes Patient has homicidal [...] Is the patient cognitively impaired cognitively impaired Mtason Fall Scale History of falling (immediate or [...] 30-Jul-2020 23:23 by Elizabeth Ivan (RN) Normal [facility] UA MICROSCOPICon 07-31-2020 RBC 1 /HPF Normal 0-5 [facility] Comment on above: Performed By: #### U AMIC #### [facility] [address] [place] [address] SQUAMOUS EPITH. CELLS <1 Normal [facility] Comment on above: Performed By: #### U AMIC #### [facility] [address] [place] [address] WBC 22 /HPF Abnormal 0-5 [facility] Comment on above: Performed By: #### U AMIC #### [facility] [address] [place] [address] URINALYSISon 07-31-2020 Appearance (U) CLEAR Normal CLEAR [facility] Comment on above: Performed By: #### U A #### [facility] [address] [place] [address] Bilirubin Ql (U) Negative Normal NEGATIVE [facility] Comment on above: Performed By: #### U A #### [facility] [address] [place] [address] Color (U) STRAW Normal STRAW,YELLOW [facility] Comment on above: Performed By: #### U A #### [facility] [address] [place] [address] Glucose Ql (U) >=500(3+) Abnormal NEGATIVE [facility] Comment on above: Performed By: #### U A #### [facility] [address] [place] [address] Hemoglobin Ql (U) SMALL(1+) Abnormal NEGATIVE [facility] Comment on above: Performed By: #### U A #### [facility] [address] [place] [address] Ketones Ql (U) Negative Normal NEGATIVE [facility] Comment on above: Performed By: #### U A #### [facility] [address] [place] [address] Leukocyte esterase Test strip Ql (U) TRACE Abnormal NEGATIVE [facility] Comment on above: Performed By: #### U A #### [facility] [address] [place] [address] Nitrite Ql (U) Negative Normal NEGATIVE [facility] Comment on above: Performed By: #### U A #### [facility] [address] [place] [address] pH (U) 6.0 [pH] Normal 5.0 - 8.0 [facility] Comment on above: Performed By: #### U A #### [facility] [address] [place] [address] Protein Ql (U) 100(2+) Abnormal NEGATIVE [facility] Comment on above: Performed By: #### U A #### [facility] [address] [place] [address] Specific gravity (U) [Rel density] 1.025 Normal 1.005 - 1.035 [facility] Comment on above: Performed By: #### U A #### [facility] [address] [place] [address] Urobilinogen (U) [Mass/Vol] mg/dL Normal 0.0 - 1.9 [facility] Comment on above: Performed By: #### U A #### [facility] [address] [place] [address] Vital Signs Date Time Vital Sign Value Performing Clinician Dontae fuentes 09-16-2022 14:48-0400 Blood Pressure Location Umer RUFFIN [facility] 09-16-2022 14:48-0400 Diastolic blood pressure 74 mm[Hg] Umer RUFFIN [facility] 09-16-2022 14:48-0400 Heart rate 70 /min Umer RUFFIN [facility] 09-16-2022 14:48-0400 Respiratory rate 16 /min Umer RUFFIN [facility] 09-16-2022 14:48-0400 Systolic blood pressure 130 mm[Hg] Umer RUFFIN [facility] 04-26-2022 11:04-0500 Blood Pressure Location Umer RUFFIN [facility] 04-26-2022 11:04-0500 Diastolic blood pressure 78 mm[Hg] Umer RUFFIN [facility] 04-26-2022 11:04-0500 Heart rate 62 /min Umer RUFFIN [facility] 04-26-2022 11:04-0500 Respiratory rate 16 /min Umer RUFFIN [facility] 04-26-2022 11:04-0500 Systolic blood pressure 134 mm[Hg] Umer RUFFIN [facility] 12-03-2021 13:08-0400 Blood Pressure Location Umer RUFFIN [facility] 12-03-2021 13:08-0400 Diastolic blood pressure 70 mm[Hg] Umer RUFFIN [facility] 12-03-2021 13:08-0400 Heart rate 65 /min Umer RUFFIN [facility] 12-03-2021 13:08-0400 Respiratory rate 16 /min Umer RUFFIN [facility] 12-03-2021 13:08-0400 Systolic blood pressure 109 mm[Hg] Umer RUFFIN [facility] 09-03-2021 13:39-0400 Blood Pressure Location [facility]FF[facility] 09-03-2021 13:39-0400 Diastolic blood pressure 67 mm[Hg] Umer RUFFIN [facility] [place] 09-03-2021 13:39-0400 Heart rate 68 /min [facility] RUFF[facility] 09-03-2021 13:39-0400 Respiratory rate 16 /min Umer RUFFIN [facility] [place] 09-03-2021 13:39-0400 Systolic blood pressure 102 mm[Hg] Umer RUFFIN [facility] [place] Encounters Encounter Date Encounter Type Care Provider Facility Start: 05-13-2023 ambulatory JONATHAN PINTO [facility] ty:[facility] [place] Start: 04-23-2023 End: 04-23-2023 ambulatory JUAN PABLO ALANIZ Not Available Start: 03-26-2023 End: 03-26-2023 ambulatory JUAN PABLO ALANIZ Not Available Start: 02-27-2023 End: 02-27-2023 ambulatory CHET SANDOVAL Not Available Start: 12-18-2022 End: 12-19-2022 ambulatory JONATHAN PINTO Facility:[facility] Start: 09-16-2022 End: 09-17-2022 ambulatory Umer RUFFIN Facility:[facility] Start: 09-16-2022 End: 09-16-2022 Patient encounter procedure Umer RUFFIN [facility] Start: 07-26-2022 End: 07-27-[address] JUAN PABLO ALANIZ Facility:[facility] Start: 06-26-2022 End: 06-27-[address] JUAN PABLO ALANIZ Facility:[facility] Start: 05-23-2022 End: 05-24-[address] JUAN PABLO ALANIZ Facility:[facility] Start: 04-26-2022 End: 04-27-2022 ambulatory Umer RUFFIN Facility:[facility] Start: 04-26-2022 End: 04-26-2022 Patient encounter procedure Umer RUFFIN [facility] Start: 04-22-2022 End: 04-23-[address] JUAN PABLO ALANIZ Facility:[facility] Start: 04-16-2022 End: 04-16-[address] JUAN PABLO ALANIZ Facility:[facility] Start: 04-08-2022 End: 04-09-2022 ambulatory Umer RUFFIN Facility:[facility] Start: 04-08-2022 End: 04-08-2022 Patient encounter procedure Umer Schultz RUFF[facility] Start: 04-04-2022 ambulatory SHELLIE ROJAS . Facility:[facility] Start: 03-08-2022 End: 03-08-[address] JUAN PABLO ALANIZ Facility:[facility] Start: 03-04-2022 Encounter for preprocedural cardiovascular examination DR VINH HOLCOMB . [facility] Start: 03-04-2022 Encounter for preprocedural laboratory examination DR VINH HOLCOMB . [facility] Start: 03-03-2022 End: 03-03-[address] JUAN PABLO ALANIZ Facility:H1 Start: 03-02-2022 Encounter for preprocedural cardiovascular examination DR VINH HOLCOMB . [facility] Start: 02-26-[address] VINH HOLCOMB . Faci lity:H1 Start: 02-22-2022 End: 02-23-2022 Encounter for preprocedural cardiovascular examination DR VINH HOLCOMB . Facility:[facility]1 Start: 02-22-2022 End: 02-23-[address] VINH HOLCOMB . Facility:[facility]1 Start: 02-22-2022 End: 02-23-2022 Encounter for preprocedural laboratory examination DR VINH HOLCOMB . Facility:[facility]1 Start: 02-19-2022 End: 02-20-2022 ambulatory [facility] Facility:[facility]1 Start: 02-04-[address] VINH HOLCOMB . Faci lity:H1 Start: 01-22-2022 End: 01-23-[address] JUAN PABLO ALANIZ Facility:[facility]1 Start: 01-01-2022 End: 01-01-[address] VINH HOLCOMB . Facility:[facility]1 Start: 12-13-2021 End: 12-14-[address] VINH HOLCOMB . Facility:[facility]1 Start: 12-03-2021 End: 12-03-2021 Patient encounter procedure Umer RUFFIN [facility] Start: 11-29-2021 End: 11-30-2021 ambulatory [facility] Facility:[facility]1 Start: 11-27-2021 End: 11-27-[address] VINH HOLCOMB . Facility:[facility]1 Start: 10-02-2021 End: 10-03-[address] VINH HOLCOMB . Facility:[facility]1 Start: 09-21-2021 End: 09-21-[address] USJIT GR . Facility:[facility]1 Start: 09-19-2021 End: 09-20-2021 ambulatory [facility] Facility:[facility]1 Start: 09-15-2021 End: 09-16-[address] SPARKLE NELSON Facility:[facility]1 Start: 09-03-2021 End: 09-03-2021 Patient encounter procedure Umer RUFFIN [facility] Start: 09-03-2021 End: 09-03-[address] JUAN PABLO ALANIZ Facility:[facility]1 Procedures Date Procedure Procedure Detail Performing Clinician Esophagogastroduodenoscopy Goldie RUFFIN Plan of Treatment Date Care Activity Detail Author Start: 08-22-2022 ambulatory Ambulatory Facility:H 1 Immunizations Immunization Date Immunization Notes Care Provider Fa elity 02-22-2022 influenza virus vacc ine, unspecified formulation Umer RUFFIN [facility] 12-21-2020 SARS-CoV-2 (COVID-19 ) mRNA BNT-162b2 vax ROBA[facility]O [facility] 11-30-2020 SARS-CoV-2 (COVID-19 ) mRNA BNT-162u7 vax [facility] 01-24-2020 influenza virus vacc ine, unspecified formulation [facility] 03-04-2019 influenza virus vacc ine, unspecified formulation [facility] 08-05-2018 pneumococcal polysaccharide vaccine, 23 valent [facility]O [facility] 12-18-2016 influenza virus vacc ine, unspecified formulation [facility] 12-06-2015 influenza virus vacc ine, unspecified formulation [facility] 12-21-2014 influenza virus vacc ine, unspecified formulation [facility] Payers Date Payer Category Payer Unknown [id number] 1961 Unknown [id number] 1940 Unknown [id number] 2.16.84 0.1.505703.3.579.2.593 1940 Unknown [id number] 2.16.84 0.1.512280.3.579.2.593 1938 Unknown [id number] 2.16.84 0.1.744817.3.579.2.593 1938 Unknown [id number] 2.16.84 0.1.379003.3.579.2.593 1938 Unknown [id number] 2.16.84 0.1.298028.3.579.2.593 1938 Unknown [id number] 2.16.84 0.1.138005.3.579.2.593 1938 Unknown [id number] 2.16.84 0.1.719254.3.579.2.593 1938 Unknown [id number] 2.16.84 0.1.486571.3.579.2.593 1938 Unknown [id number] 2.16.84 0.1.643148.3.579.2.593 1938 Unknown [id number] 2.16.84 0.1.363498.3.579.2.593 1938 Unknown [id number] 2.16.84 0.1.534509.3.579.2.593 1938 Unknown [id number] 2.16.84 0.1.571969.3.579.2.593 1938 Unknown [id number] 2.16.84 0.1.134856.3.579.2.593 1938 Unknown [id number] 2.16.84 0.1.067749.3.579.2.593 1938 Unknown [id number] 2.16.84 0.1.375548.3.579.2.593 1938 Unknown [id number] 2.16.84 0.1.255595.3.579.2.593 1938 Unknown [id number] 2.16.84 0.1.773871.3.579.2.593 1938 Unknown [id number] 2.16.84 0.1.842365.3.579.2.593 1938 Unknown [id number] 2.16.84 0.1.352464.3.579.2.593 1938 Unknown [id number] 2.16.84 0.1.508272.3.579.2.593 1938 Unknown [id number] 2.16.84 0.1.583806.3.579.2.593 1938 Unknown [id number] 2.16.84 0.1.827076.3.579.2.593 1938 Unknown [id number] 2.16.84 0.1.526495.3.579.2.593 1938 Unknown [id number] 2.16.84 0.1.955859.3.579.2.593 1938 Unknown [id number] 2.16.8 40.1.845152.3.579.2.727 1938 Unknown [id number] 2.16.8 40.1.143959.3.579.2.727 1938 Unknown [id number] 2.16.8 40.1.748155.3.579.2.727 1938 Unknown [id number] 2.16.8 40.1.086957.3.579.2.727 1938 Unknown [id number] 2.16.8 40.1.127485.3.579.2.727 1938 Unknown [id number] 2.16.84 0.1.514622.3.579.2.1259 1938 Unknown [id number] 2.16.840 .1.197200.3.579.2.1259 1938 Unknown [id number] 2.16.840 .1.698853.3.579.2.1259 Social History Date Type Detail Facility Start: 09-03-2021 Tobacco smoking status Ex-smoker (fi nding) [facility] Sex Assigned At Male [facility] Start: 04-26-2022 Tobacco smoking status Never s moked tobacco (finding) [facility] Tobacco smoking status Never [facility] Functional Status Date Assessment Result Facility 09-16-2022 Functional Status N/A [facility] 04-26-2022 Functional Status N/A [facility] 12-03-2021 Functional Status N/A [facility] 09-03-2021 Functional Status N/A [facility] Clinical Notes 09-03-2021 to 09-16-2022 Note Date [...] your health care provider. General instructions Take mmsu-sms-vaedqiz and prescription medicines only as told by [...] provider. Document Revised: 11/27/2020 Document Reviewed: 11/27/2020 [employer] Patient Education 2022 [employer]. Follow Up Care 04/26/2022 11:39:09 With:ERIK MENG, Umer Schultz, URL Address: [facility] [address] , [place] [address]- When: Unknown [facility] 05-23-2022 Note CONSULTATION CONSULTATION DATE: 05/23/2022 [...] indicated. Patient agrees with this plan. [facility] 04-26-2022 Hospital Discharge instructions Patient Education 04/26/2022 [...] urethra. Follow these instructions at home: Take gdme-vjj-tdpzyld and prescription medicines only as told by [...] 03/10/2006 Document Revised: 02/02/2019 Document Reviewed: 04/14/2017 [employer] Patient Education 2020 [employer]. Follow Up Care 04/08/2022 14:01:00 With:ERIK MENG, Umer Schultz, URL Address: [address] [place], [place] [id number]- When: Unknown [facility] 04-08-2022 Hospital Discharge instructions Patient Education [...] urethra. Follow these instructions at home: Take eclt-wvp-ylkdigw and prescription medicines only as told by [...] 03/10/2006 Document Revised: 02/02/2019 Document Reviewed: 04/14/2017 [employer] Patient Education Age of Learning. Follow Up Care 12/03/2021 14:11:02 With:ERIK MENG, Umer Schultz, URL Address: [facility] [address] , [place] [address]- When: Unknown [facility] 01-22-2022 Note CONSULTATION CONSULTATION DATE: 01/22/2022 [...] proceed. CC: Juan Pablo Alaniz M.D. 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 He does not use heat or ice to his back at this time. Current medications include gabapentin 200 mg t.i.d., nabumetone 750 mg b.i.d., Kevin 5/325 t.i.d. Patient does use a walking [...] L3 and L4, L5. A refill for Kevin 5/325 t.i.d. will be sent today. He will receive an oral U-Tox in the office today. Supportive measures such as stretching, a menthol heat rub and heat application to his back were discussed. I did recommend a Boost supplement daily. Patient will be followed up in the office post procedure and agrees to move forward. [facility] 12-03-2021 Hospital Discharge instructions Patient Education 12/03/2021 [...] urethra. Follow these instructions at home: Take dads-zan-sbvzewb and prescription medicines only as told by [...] 03/10/2006 Document Revised: 02/02/2019 Document Reviewed: 04/14/2017 [employer] Patient Education 2020 [employer]. Follow Up Care 09/03/2021 14:17:23 With:ERIK MENG, Umer Schultz, URL Address: [facility] [address] [place] [phone] When:04/04/2022 Comments:PVR [facility] 10-02-2021 Note CONSULTATION PROCEDURE DATE: 10/02/2021 [...] he reports mitigation of his pain symptomatology. [facility] Signed and Approved by: DR VINH HOLCOMB . 10/09/2021 09:28:00 [facility] 10-02-2021 Note CONSULTATION CONSULTATION DATE: 10/02/2021 CHIEF [...] three times a day. We will re-prescribe Kevin 5/325 t.i.d. which he had received from [...] to proceed. CC: Juan Pablo Alaniz M.D. [facility] Signed and Approved by: DR VINH HOLCOMB . 10/09/2021 09:28:00 [facility] 09-03-2021 Hospital Discharge instructions Patient Education 09/03/2021 [...] 03/10/2006 Document Revised: 11/27/2018 Document Reviewed: 02/07/2017 [employer] Patient Education 2020 [employer]. 09/03/2021 13:53:06 Benign Prostatic Hyperplasia Benign Prostatic [...] urethra. Follow these instructions at home: Take vqbk-jsw-ezgyrws and prescription medicines only as told by [...] 03/10/2006 Document Revised: 02/02/2019 Document Reviewed: 04/14/2017 [employer] Patient Education 2020 [employer] Follow Up Care 07/03/2021 15:21:16 With:Umer RUFFIN MD, URL Address: [facility] [address], [place] [phone] When:Within 3 Month(s) Comments:f/u in 3 months with PVR scan [facility] Evaluation + Plan note Future Appointments Appointment Date:12/03/2021 01:15:00 PM Scheduled Provider:Umer RUFFIN MD Location:[facility] Appointment Type:URO Office Visit [facility] Evaluation + Plan note Future Appointments Appointment Date:04/08/2022 12:45:00 PM Scheduled Provider:Umer RUFFIN MD Location:[facility] Appointment Type:URO Office Visit [facility] Evaluation + Plan note Future Appointments Appointment Date:04/26/2022 10:15:00 AM Scheduled Provider:Umer RUFFIN MD Location:[facility] Appointment Type:URO Office Visit [facility] Evaluation + Plan note Future Appointments Appointment Date:07/22/2022 08:45:00 AM Scheduled Provider:Umer RUFFIN MD Location:[facility] Appointment Type:URO Office Visit [facility] Evaluation + Plan note Future Appointments Appointment Date:12/20/2022 08:30:00 AM Scheduled Provider:Umer RUFFIN MD Location:[facility] Appointment Type:URO Office Visit [facility] Hospital course Narrative No data available for this section [facility] Progress note No data available for this section [facility] Summary Purpose Family History No Family History [...] section and content) DATE CREATED AUTHOR 11/14/2020 [facility] DATE CREATED AUTHOR AUTHOR'S ORGANIZ ATION 08/02/2022 [facility] DATE CREATED AUTHOR AUTHOR'S ORGANIZ ATION 04/01/2023 [facility] DATE CREATED AUTHOR AUTHOR'S ORGANIZ ATION 04/24/2023 [facility] EPIC Care Team (unrecognized sect ion and content) Personnel Name: JUAN PABLO ALANIZ MD Address: [address] [place] [address] Personnel Name: JUAN PABLO ALANIZ MD Address: [address] [place] [address] Personnel Name: JUAN PABLO ALANIZ MD Address: Address: [address] [place] [address] Personnel Name: JUAN PABLO ALANIZ MD Address: Address: [address] [place] [address] Personnel Name: JUAN PABLO ALANIZ MD Address: Address: [address] [place] [address] FOR RECORDS PERTAINING TO PATIENTS WHO ARE [...] BE BASED ON THE PRIMARY CLINICAL RECORDS. [facility] [employer] provides no warranty or guarantee of the accuracy or completeness of information in this document.
[2023-04-26 01:10] LABS: Basophils Absolute Auto 0.1 10^3/uL (0.0-0.1); Basophils Percent Auto 0.8 % (0.2-2.0); Eosinophils Absolute Auto 0.5 10^3/uL (0.0-0.7); Eosinophils Percent Auto 4.7 % (0.9-7.0); Hematocrit 37.7 % (42.0-54.0); Immature Granulocytes Abs Auto 0.03 10^3/uL (0.00-0.03); Immature Granulocytes Pct Auto 0.3 % (0.0-0.5); Lymphocytes Absolute Auto 1.1 10^3/uL (1.2-3.8); Lymphocytes Percent Auto 11.5 % (20.5-60.0); Mean Corpuscular HGB Conc 31.8 g/dL (29.9-35.2); Mean Corpuscular Hemoglobin 31.5 pg (25.9-34.0); Mean Platelet Volume 10.9 fL (9.5-13.5); Monocytes Absolute Auto 0.8 10^3/uL (0.3-0.8); Neutrophils Absolute Auto 7.2 10^3/uL (1.4-6.5); Neutrophils Percent Auto 74.7 % (43.0-75.0); Platelet Count 182 10^3/uL (150-450); Red Blood Count 3.81 10^6/uL (4.70-6.10); Red Cell Distribution Width 13.9 % (11.0-15.0); White Blood Count 9.7 10^3/uL (4.0-11.0)
--- NOTE | 2023-04-26 01:10 | PC.NURSE ---
patient arrived via ems for home for uncontrollable back pain. patient states he has chronic back pain but it has been increasing for approx 1 week. patient has been taken an unknown medication for pain at home with no relief. patient his poor hx states he is very forgetful. alert and oriented x3. unable to state what year it is or what medications he takes. patient has seen in ER last october for a backwards fall onto back and buttocks. patient given 4zofran and 100mcg of fentanyl in route. states pain is much better. patient was writhing in bed prior to fentanyl administration. lives at home with . ems states is not coming in, did not appear to ambulate well.
[2023-04-26 01:15] LABS: Erythrocyte Sedimentation Rate 59 mm/hr (<=20)
[2023-04-26 01:22] LABS: Anion Gap 4.8; BUN Creatinine Ratio 20.9; C Reactive Protein 0.65 mg/dL (<=0.50); Calcium 8.3 mg/dL (8.5-10.1); Chloride 105 mmol/L (98-107); Estimated GFR (African America 43 (>=60); Estimated GFR (Non-African Ame 36 (>=60); Glucose 220 mg/dL (74-106); Potassium 4.8 mmol/L (3.5-5.1); Sodium 137 mmol/L (136-145)
[2023-04-26] MEDS: METHYLPREDNISOLONE SOD SUCC PF 125 MG/2 ML VIAL IVP (01:23)
[2023-04-26] MEDS: LORAZEPAM 2 MG/ML 1 ML VIAL 1 MG IV (01:24)
[2023-04-26] MEDS: MAGNESIUM SULFATE IN WATER 2 GM/50 ML PREMIX IV (01:24)
[2023-04-26 02:17] VITALS: BP 128/71; PULSE 71; RESP 20; O2SAT 94
[2023-04-26] MEDS: HYDROCODONE/ACET 5-325 MG TABLET 2 TAB PO (03:23)
[2023-04-26 03:32] VITALS: BP 141/74; PULSE 77; RESP 16; O2SAT 96
[2023-04-26 06:25] VITALS: BP 150/75; PULSE 70; RESP 16; O2SAT 96
== END 2023-04-26 07:26 | disposition home or self-care (01) ==
PROVIDERS: Internal Medicine; Emergency Provider Emergency Medicine; PCP Internal Medicine
DX: M54.50 Low back pain, unspecified (principal); G89.29 Other chronic pain; S39.92XA Unspecified injury of lower back, initial encounter; X58.XXXA Exposure to other specified factors, initial encounter; M51.36 Other intervertebral disc degeneration, lumbar region; M48.061 Spinal stenosis, lumbar region without neurogenic claudication
CPT/HCPCS: 36415; 72131; 80048; 85025; 85652; 86140; 96365; 96375; 99284; J2060; J2930; J3475

== ENCOUNTER 2023-07-14 14:51 | Outpatient (OUT) | payer MEDICARE, SELFPAY | END 2023-07-14 14:52 | disposition home or self-care (01) | LOC: WC 14:51 | PROVIDERS: PCP Internal Medicine; Visit Provider Podiatrist Foot & Ankle Surgery | DX: E11.40 Type 2 diabetes mellitus with diabetic neuropathy, unspecified (principal); E11.65 Type 2 diabetes mellitus with hyperglycemia; L60.3 Nail dystrophy | CPT/HCPCS: 11721 ==

== ENCOUNTER 2023-07-26 06:28 | Observation (INO) | payer MEDICARE, SELFPAY ==
[2023-07-26 06:33] VITALS: BP 177/72; PULSE 69; TEMP 36.6; O2SAT 99; BMI 38.4
--- NOTE | 2023-07-26 06:42 | CT_ITS ---
The [address] [address] Patient Name: NAT MOORE MRN: [id number] date: 1940 Sex: M Assigned Patient Location: ED.MAIN Current Patient Location: ER Accession/Order Number: [id number] Exam Date: 07/26/2023 07:26 Report Date: 07/26/2023 08:15 At the request of: LALO CHANEY Procedure: CT head/brain wo con HEAD CT WITHOUT CONTRAST: 07/26/2023 7:26 AM EDT Clinical Data: Altered mental status Comparison: No previous Unenhanced axial data from base to vertex. INTRA-AXIAL: No acute hemorrhage. No distinct evidence of acute infarction. Symmetric moderate supratentorial white matter disease EXTRA-AXIAL: No acute hemorrhage. No focal fluid collection. BRAIN VOLUME: Modest cerebral atrophy. VENTRICLES: No hydrocephalus PARANASAL SINUSES: Significant opacification of the ethmoids bilaterally. Some disease inferior aspects both frontal sinuses. Included aspects maxillary antra are clear. Sphenoids are clear. MASTOIDS: Clear. CALVARIUM: No acute finding. EXTRACALVARIAL: No acute findings CT/CT head/brain wo con IMPRESSION: 1. No evidence of acute intracranial process on this unenhanced study as described. 2. Significant bilateral ethmoid sinus opacification. All CT scans at this facility use dose modulation, iterative reconstruction, and/or weight based dosing when appropriate to reduce radiation dose to as low as reasonably achievable. Electronically authenticated by: NATALI RHOADES Date: 07/26/2023 08:15
--- NOTE | 2023-07-26 06:42 | XR_ITS ---
The [address] [address] Patient Name: NAT MOORE MRN: [id number] date: 1940 Sex: M Assigned Patient Location: ER Current Patient Location: ER Accession/Order Number: [id number] Exam Date: 07/26/2023 07:24 Report Date: 07/26/2023 07:45 At the request of: LALO CHANEY Procedure: XR chest 1V EXAM: XR chest 1V , 07/12/2023 HISTORY: Altered mental status COMPARISON: Previous x-ray from 07/26/2022 TECHNIQUE: Portable AP view x-ray of the chest. FINDINGS: Mild enlargement of the cardiac silhouette. Low lung volumes. Mild left basal atelectasis. No focal consolidation or pulmonary. Mild sclerotic calcification of the aortic arch. No hilar enlargement. Right lung is clear. No acute osseous findings. XR/XR chest 1V IMPRESSION: Mild cardiac silhouette enlargement. No focal consolidation or pulmonary edema. Electronically authenticated by: VINEET GORDON Date: 07/26/2023 07:45
--- NOTE | 2023-07-26 06:42 | ECG_ITS ---
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
--- NOTE | 2023-07-26 06:43 | ED.AMS1 ---
HPI - Altered Mental Status General Chief Complaint: Altered Mental Status Stated Complaint: confusion Time Seen by Provider: 07/26/23 06:42 Source: patient Mode of arrival: ambulance Limitations: no limitations History of Present Illness HPI narrative: 83-year-old male presents to the emergency department for altered mental status. He is unable to provide any history but he does not seem to have any physical complaints such as headache. The paramedics brought him in from home, his did not accompany him. They had limited information. The patient is talking about a former boss that wanted him to come back to work but this does not appear to actually be true Related Data Allergies Allergy/AdvReac Type Severity Reaction Status Date / Time Penicillins Allergy Intermediate Verified 07/26/23 06:38 Review of Systems ROS Narrative Not obtainable, altered mental status Exam Narrative Exam Narrative: Nurses note and vital signs reviewed and patient is not hypoxic. General: The patient appears well and in no apparent distress. Patient is resting comfortably on cart. Skin: Warm, dry, no pallor noted. There is no rash noted. Head: Normocephalic, atraumatic Eye: Normal conjunctiva, no drainage, EOMI. PERRL Ears, Nose, Mouth, and Throat: oral mucosa is moist. Nares patent. Cardiovascular: Regular Rate and Rhythm Respiratory: Patient is in no distress, no accessory muscle use, lungs are clear to auscultation, no wheezing, rales or rhonchi Back: non-tender GI: Soft and nontender Musculoskeletal: The patient has no evidence of calf tenderness, no pitting edema, symmetrical pulses noted bilaterally Neurological: Awake and alert. He can tell me his name and that he is in the hospital but does not know the name of the hospital. He does not know the current year or why he is here. Psychiatric: Cooperative Constitutional Vital Signs, click to edit/add: Last Vital Signs Temp 97.8 F 07/26/23 06:33 Pulse 69 07/26/23 06:33 Resp 20 07/26/23 06:33 BP 177/72 H 07/26/23 06:33 Pulse Ox 99 07/26/23 06:33 O2 Del Method Room Air 07/26/23 06:33 Course Vital Signs Vital signs: Vital Signs Temperature 97.8 F 07/26/23 06:33 Pulse Rate 69 07/26/23 06:33 Respiratory Rate 20 07/26/23 06:33 Blood Pressure 177/72 H 07/26/23 06:33 Pulse Oximetry 99 07/26/23 06:33 Oxygen Delivery Method Room Air 07/26/23 06:33 Temperature 97.8 F 07/26/23 06:33 Pulse Rate 69 07/26/23 06:33 Respiratory Rate 20 07/26/23 06:33 Blood Pressure 177/72 H 07/26/23 06:33 Pulse Oximetry 99 07/26/23 06:33 Oxygen Delivery Method Room Air 07/26/23 06:33 MDM - Altered Mental Status MDM Narrative Medical decision making narrative: Tests are ordered and the patient is signed out to Dr. Miranda. Differential Diagnosis Differential diagnosis: Likely alcoholic intoxication, altered mental status, delirium, dementia, hypoglycemia and hyponatremia Discharge Plan Discharge Chief Complaint: Altered Mental Status Print Language: Lebanese
--- OUTSIDE RECORDS SUMMARY | 2023-07-26 06:46 | XMS_ITS | CCD ---
Author Organization [facility] Care Team Providers Care Precision Instrument Maker Name Role Phone JUAN PABLO ALANIZ Primary Care Physician DR JUAN PABLO ALANIZ Primary Care Unavailable ULCIAN ., AI Admitting Unavailable LUCIAN ., AI Attending Unavailable KOBY ., ADELAIDA MORGAN Consulting UnavailMANDIE Burdick Attending Unavailable MANDIE NOBLE Admitting Unavailable ANTHONY, DR GOMEZ Primary Care Unavailable MANDIE NOBLE Admitting Unavailable MANDIE NOBLE Attending Unavailable ANTHONY, DR GOMEZ Primary Care Unavailable OMAR, DR SPARKLE Schultz Consulting Unavailable MAILE ., DR BECKETT Admitting Unavailable HAY ., DR BECKETT Attending Unavailable ANTHONY, DR GOMEZ Primary Care Unavailable ANTHONY, DR GOMEZ Primary Care Unavailable CARMINE, DR YAKELIN Lucas Consulting Unavailabl e CARMINE, DR YAKELIN Lucas Admitting Unavailabl e REINFAISAL, DR YAKELIN Lucas Attending Unavailabl e MAYITO ., CAROLIN Consulting Unavailable CRYSTAL .SHELLIE Consulting Unavailable ZHANG ., DR VINH Freeman Attending Unavailable ANTHONY, DR GOMEZ Primary Care Unavailable ZHANG ., DR VINH Freeman Admitting Unavailable MANDIE NOBLE Attending Unavailable MANDIE NOBLE Admitting Unavailable ANTHONY, DR GOMEZ Primary Care Unavailable ZHANG ., DR VINH Freeman Attending Unavailable ANTHONY, DR GOMEZ Primary Care Unavailable ZHANG ., DR VINH Freeman Admitting Unavailable HOLCOMB ., DR VINH Freeman Consulting Unavailable ZHANG ., DR VINH Freeman Consulting Unavailable HOLCOMB ., DR VINH Freeman Admitting Unavailable HOLCOMB ., DR VINH Freeman Attending Unavailable ANTHONY, DR GOMEZ Primary Care Unavailable HOLCOMB ., DR VINH Freeman Admitting Unavailable HOLCOMB ., DR VINH Freeman Attending Unavailable CRYSTAL .SHELLIE Consulting Unavailable ANTHONY, DR GOMEZ Primary Care Unavailable ANTHONY, DR GOMEZ Primary Care Unavailable HOLCOMB ., [...] VINH Freeman Admitting Unavailable HOLCOMB ., DR VNIH Freeman Attending Unavailable ALANIZ, DR GOMEZ Primary [...] Unavailable ANTHONY, DR GOMEZ Primary Care Unavailable HOLCOMB ., DR VINH Freeman Admitting Unavailable ALANIZ, DR GOMEZ Primary Care Unavailable ALANIZ, DR GOMEZ Primary Care Unavailable LUCIAN ., AI Admitting Unavailable LUCIAN ., AI Attending Unavailable LUCIAN ., AI Consulting Unavailable ELIUD KAUR Consulting Unavailable ANTHONY, DR GOMEZ Primary Care Unavailable AIDE, PETER D Admitting Unavailable HIGHLANDER, PETER D Attending Unavailable ALANIZ, DR GOMEZ Primary Care Unavailable ZIEBER, DR SAURABH Schultz Consulting Unavailable OMAR, DR SPARKLE Schultz Admitting Unavailable OMAR, DR SPARKLE Schultz Attending Unavailable LUCIAN ., AI Consulting Unavailable HOLCOMB ., DR VINH Freeman Admitting Unavailable HOLCOMB ., DR VINH Freeamn Attending Unavailable ALANIZ, DR GOMEZ Primary Care Unavailable HOLCOMB ., DR VINH Freeman Attending Unavailable ALANIZ, DR GOMEZ Primary Care Unavailable HOLCOMB ., DR VINH Freeman Consulting Unavailable HOLCOMB ., DR VINH Freeman Admitting Unavailable ANTHONY, DR GOMEZ Primary Care Unavailable LAKSHMIPATHY ., NARENDRANATH Admitting Yasmeen vailable LAKSHMIPATHY ., NARENDAMANDAATH Attending Yasmeen vailable ANTHONY, DR GOMEZ Primary Care Unavailable HIGHLANDER, PETER D Admitting Unavailable HIGHLANDER, PETER D Attending Unavailable RUFFIN, Umer Schultz Attending Unavailable BLAIR, CAIT Chang Attending Unavailable BLAIR, CAIT Chang Attending Unavailable JUAN PABLO ALANIZ Attending Unavailable JUAN PABLO ALANIZ Attending Unavailable CHET SANDOVAL Attending Unavailable JUAN PABLO ALANIZ Attending Unavailable Allergies Allergy Classification Reported Allergen(s) Allergy Type Date of Onset Reaction(s) Facility (8 sources) Penicillin; Translations: [penicillin] Drug Allergy 12-01-2021 Hives [facility] (2 sources) Penicillins Drug allergy (disorder) [facility] Medications Current Medications Medication Drug Class(es) Dates Sig (Normalized) Sig (Original) allopurinol 300 mg oral tablet (6 sources) Xanthine Oxidase Inhibitor Start: 01-17-2021 take 1 mg by mouth once daily allopurinol 300 mg Tab mg tab(s), Oral, Daily, Refills(s) 0 Start Date: 01/17/21 Status: Ordered dicyclomine hydrochloride 20 mg oral tablet (6 sources) Anticholinergic Start: 01-17-2021 take 1 mg by mouth four times daily dicyclomine 20 mg Tab mg tab(s), Oral, QID, Refills(s) 0 Start Date: 01/17/21 Status: Ordered Docusate (6 sources) Start: 01-17-2021 docusate sodium Refills(s) 0 Start Date: 01/17/21 Status: Ordered donepezil hydrochloride 5 mg oral tablet (6 sources) Start: 01-17-2021 take 1 mg by mouth once daily at bedtime donepezil 5 mg Tab mg tab(s), Oral, Once a day (at bedtime), Refills(s) 0 Start Date: 01/17/21 Status: Ordered empagliflozin 10 mg / linagliptin 5 mg oral tablet (6 sources) Dipeptidyl Peptidase 4 Inhibitor, Sodium-Glucose Cotransporter 2 Inhibitor Start: 01-17-2021 take 1 tablet by mouth once daily in the morning Glyxambi 10 mg-5 mg oral tablet tab(s), Oral, qAM, Refill(s) 0 Start Date: 01/17/21 Status: Ordered gabapentin 100 mg oral capsule (6 sources) Anti-epileptic Agent Start: 01-17-2021 take 1 mg by mouth three times daily gabapentin 100 mg Cap mg cap(s), Oral, TID, Refills(s) 0 Start Date: 01/17/21 Status: Ordered glipiZIDE 10 mg oral tablet (6 sources) Sulfonylurea Start: 01-17-2021 take 1 mg by mouth once daily glipiZIDE 10 mg Tab mg tab(s), Oral, Daily, Refills(s) 0 Start Date: 01/17/21 Status: Ordered 24 hr metoprolol succinate 100 mg extended release oral tablet (6 sources) beta-Adrenergic Callum Start: 01-17-2021 take 1 mg by mouth once daily metoprolol 100 mg ER Tab mg tab(s), Oral, Daily, Refills(s) 0 Start Date: 01/17/21 Status: Ordered solifenacin succinate 10 mg oral tablet (3 sources) Cholinergic Muscarinic Antagonist Start: 09-16-2022 End: 09-11-2023 take 1 tablet by mouth once daily Vesicare 10 mg Tab 10 mg = 1 tab(s), Oral, Daily, X 30 day(s), # 30 tab(s), Refills(s) 11, Pharmacy: [facility], 167, cm, 09/16/22 15:10:00 EDT, Height/Length Dosing, 120, kg, 09/16/22 15:10:00 EDT, Weight Dosing Start Date: 09/16/22 Stop Date: 09/11/23 Status: Ordered Start: 04-26-2022 take 1 tablet by [facility] once daily Vesicare 5 mg Tab 5 mg = 1 tab(s), Oral, Daily, # 30 tab(s), Refills(s) 11, Pharmacy: [facility], 174, cm, 12/03/21 13:40:00 EDT, Height/Length Dosing, 112, kg, 12/03/21 13:40:00 EDT, Weight Dosing Start Date: 04/26/22 Status: Ordered tamsulosin hydrochloride 0.4 mg oral capsule (6 sources) alpha-Adrenergic Callum Start: 10-09-2022 take 1 capsule by mouth once daily Flomax 0.4 mg Cap 0.4 mg = 1 cap(s), Oral, Daily, # 30 cap(s), Refills(s) 11, called to pharmacy (Rx) Start Date: 10/09/22 Status: Ordered Start: 10-25-2021 take 1 capsule by [facility] once daily Flomax 0.4 mg Cap 0.4 mg = 1 cap(s), Oral, Daily, # 90 cap(s), Refills(s) 3, Pharmacy: [facility], 174, cm, 09/03/21 13:40:00 EDT, Height/Length Dosing, 112.5, kg, 09/03/21 13:40:00 EDT, Weight Dosing Start Date: 10/25/21 Status: Ordered Start: 07-03-2021 take 1 capsule by mo [facility] once daily Flomax 0.4 mg Cap 0.4 mg = 1 cap(s), Oral, Daily, # 30 cap(s), Refills(s) 3, Pharmacy: [facility], 174, cm, 07/17/20 5:39:00 EDT, Height/Length Dosing, 112.5, kg, 07/17/20 5:39:00 EDT, Weight Dosing Start Date: 07/03/21 Status: Ordered 24 hr tolterodine tartrate 4 mg extended release oral capsule (4 sources) Cholinergic Muscarinic Antagonist Start: 01-17-2021 take 1 capsule by mouth once daily tolterodine 4 mg Cap-ER 4 mg = 1 cap(s), Oral, Daily, # 30 cap(s), Refills(s) 11, Pharmacy: [facility], 174, cm, 09/03/21 13:40:00 EDT, Height/Length [...] Onset: 10-04-2021 Chronic Diabetes mellitus without complication (7 sources) Diabetes mellitus; Translations: [Type 2 diabetes mellitus without complications] Onset: 07-31-2022 07-17-2020 Chronic Diverticulosis and diverticulitis (6 sources) Diverticulitis 01-17-2021 Chronic Esophageal disorders (1 source) Gastro-esophageal reflux disease without esophagitis; Translations: [GERD WITHOUT ESOPHAGITIS] Onset: 12-11-2021 Chronic Essential hypertension (7 sources) Hypertensive disorder; Translations: [Essential (primary) hypertension] Onset: 03-06-2022 01-17-2021 Chronic Genitourinary symptoms and ill-defined conditions (9 sources) Urge incontinence; Translations: [Urge incontinence of urine] Onset: 12-03-2021 Chronic Genitourinary symptoms and ill-defined conditions (20 sources) Increased frequency of urination; Translations: [Frequency of micturition] Onset: 09-03-2021 Episodic Hyperplasia of prostate (14 sources) Benign prostatic hypertrophy with outflow obstruction; Translations: [Benign prostatic hyperplasia with lower urinary tract symptoms] Onset: 09-03-2021 Chronic Other aftercare (1 source) Other continuous churn buttermaker (current) drug therapy; Translations: [OTH SENIOR LIVING CURRENT DRUG THERAPY] Onset: 07-31-2022 Episodic Other aftercare (1 source) buttermaker (current) use of oral hypoglycemic drugs; Translations: [CLINICAL ASST USE ORAL HYPOGLYCEMIC DX] Onset: 07-31-2022 Episodic Other connective tissue disease (6 sources) Calcaneal spur 01-17-2021 Episodic Other connective tissue disease (4 sources) Other muscle spasm; Translations: [OTHER MUSCLE SPASM] Onset: 05-23-2022 Episodic Other diseases of veins and lymphatics (1 source) Lymphedema, not elsewhere classified; Translations: [LYMPHEDEMA NOT ELSEWHERE CLASSIFIED] Onset: 12-11-2021 Chronic Other lower respiratory disease (6 sources) Nodule of lung 01-17-2021 Episodic Other lower respiratory disease (1 source) Shortness of breath; Translations: [SHORTNESS OF BREATH] Onset: 07-31-2022 Episodic Other nervous system disorders (6 sources) Neuropathy 01-17-2021 Chronic Other nervous system disorders (1 source) Other chronic pain; Translations: [OTHER CHRONIC PAIN] Onset: 04-18-2022 Chronic Other skin disorders (5 sources) Nail dystrophy; Translations: [NAIL DYSTROPHY] Onset: 04-30-2022 Episodic Residual codes; unclassified (6 sources) Amnesia 10-27-2021 Episodic Residual codes; unclassified (6 sources) Swelling - edema - symptom 01-17-2021 Episodic Screening and history of mental health and substance abuse codes (1 source) Personal history of nicotine dependence; Translations: [PERSONAL HISTORY OF NICOTINE DEPEND] Onset: 07-31-2022 Episodic Spondylosis; intervertebral disc disorders; other back problems (10 sources) Other intervertebral disc degeneration, lumbar region; Translations: [Spondylosis without myelopathy or radiculopathy, lumbar region] Onset: 12-13-2021 Chronic Substance-related disorders (6 sources) Smoker 01-19-2021 Chronic Comment on above: Added secondary to d ocumentation in Social History. Unclassified (6 sources) Finding of sensation of bladder 01-19-2021 [...] OF COVID-19] Onset: 03-06-2022 Unclassified (1 source) CLINICAL ASST INJECT NONINSULN ANTIDIAB; Translations: [SENIOR LIVING INJECT NONINSULN ANTIDIAB] Onset: 03-02-2022 Past or [...] Test Name Value Interpretation Reference Range [facility] (Inserted Image. Yasmeen ble to display) May 13, 2023 NAT MALONE [address] [place] [address] [address] [place] [address] : 1940 Dear Nat, You missed your scheduled appointment on April with Cait Pinto PA-C, . Please note our appointment slots fill quickly. When you fail to cancel or reschedule an appointment the office is unable to fill the appointment slot that was reserved for you. In the future, we ask that you call 24 hours in advance to cancel your appointment. Our current reminder system gives you the opportunity to cancel by responding to our reminder text, phone call or email. You can also call the office to reschedule during normal business hours or use our on-line scheduling portal at your convenience. Our goal is to provide convenient and quality care to all of our patients. We appreciate your consideration regarding any future cancellations. Sincerely, [facility] [address], [place] [address] [facility] Ambulatory Visit Summaryon 0 09-16-2022 Ambulatory Visit [...] (docusate sodium) donepezil (donepezil 5 mg Tab) empagliflozin-linaglipt in (Glyxambi 10 mg-5 mg oral tablet) gabapentin (gabapentin 100 mg Cap) glipiZIDE (glipiZIDE 10 mg Tab) metoprolol (metoprolol 100 mg ER Tab) Procedures Performed EGD - Esophagogastroduodenosc opy. Discharge Vitals Heart Rate (Peripheral) 70 Respiratory Rate 16 Blood Pressure 130/74 Height 167 cm Height 66 in Weight 120 kg Weight 264 lb BMI 43.03 What to do next Scheduled Follow-Up Appointments Friday 8:30 AM EDT With: ERIK MENG, Umer Schultz Where: [facility] Patient Educationon 09-17-19 23 Patient Education Obstetrics [...] health care provider. General instructions ? Take [id number] and prescription medicines only as told by [...] monitor yo (more content not included)... Normal [facility] Urology Office/Clinic Noteon 09-16-2022 Urology Office/Clinic Note [...] and history for this patient from Dr. Rfufin. I have reviewed and verified the staff [...] Contact Information ERIK MENG, Umer Schultz, URL [facility] [address], [place] [address]- Additional Instructions: 3 mos to increasing vesicare [...] Historical Diabetes mellitus Procedure/Surgical History EGD - Esophagogastroduodenosc opy. Medications allopurinol 300 mg Tab, Oral, Daily [...] influenza virus vaccine, inactivated 12/21/2014 Recorded Normal [facility] Comment on above: Result Comment: Elec tronically Signed By: ERIK MENG, Umer Schultz\.br\Date and Time Signed: 09/16/22 15:42 EDT\.br\Electronically Co-Signed By: Fawn Yost\.br\Date and Time Co-Signed: 09/16/22 15:41 EDT BNPon 07-27-2022 Natriuretic peptide B (Bld) [Mass/Vol] 178.0 pg/mL Normal <=1,800.0 [facility] Comment on above: Performed By: #### C MP, BNP, CMADM #### [facility] [address] [address] [address] Loyd Parks CARDIAC SPARKLE ADMITon 023 CK [Catalytic activity/Vol] 50 U/L Normal 39-308 [facility] Comment on above: Performed By: #### C MP, BNP, CMADM #### [facility] [address] [address] [address] Loyd Parks CK.MB [Mass/Vol] 0.83 ng/mL Normal <=3.60 [facility] Comment on above: Performed By: #### C MP, BNP, CMADM #### [facility] [address] [address] [address] Loyd Parks HSTROP 6.3 pg/mL Normal 4.0-76.1 [facility] Comment on above: Result Comment: CUT- OFF POINTS HAVE BEEN ESTABLISHED BASED ON THE FOURTH UNIVERSAL DEFINITIONS OF MYOCARDIAL INFARCTION. THE UPPER REFERENCE LIMIT (URL) OF TROPONIN, DEFINED THE 99TH PERCENTILE OF cTnI DISTRIBUTION IN A REFERENCE POPULATION, HAS BEEN CONFIRMED THE DECISION THRESHOLD FOR [place] DIAGNOSIS. Performed By: #### C MP, BNP, CMADM #### [facility] [address] [address] [address] Loyd Parks WM 121 ng/mL Critically high 16-96 [facility] Comment on above: Performed By: #### C MP, BNP, CMADM #### [facility] [address] [place] [address] Dr. Loyd Parks CBC AUTO DIFFon 07-27-2022 BASO # 0.1 103/ul Normal 0.0-0.1 [facility] Comment on above: Performed By: #### C BC #### [facility] [address] [address] [address] Loyd Parks Basophils/100 WBC (Bld) 0.6 % Normal 0.2-2.0 [facility] Comment on above: Performed By: #### C BC #### [facility] [address] [place] [address] Dr. Loyd Parks EO # 0.5 103/ul Normal 0.0-0.7 [facility] Comment on above: Performed By: #### C BC #### [facility] [address] [place] [address] Dr. Lody Parks Eosinophils/100 WBC (Bld) 4.8 % Normal 0.9-7.0 [facility] Comment on above: Performed By: #### C BC #### [facility] [address] [place] [address] Dr. Loyd Parks Erythrocyte distribution width (RBC) [Ratio] 13.5 % Normal 11.0-15.0 [facility] Comment on above: Performed By: #### C BC #### [facility] [address] [place] [address] Dr. Loyd Parks Hematocrit (Bld) [Volume fraction] 39.7 % Critically low 42.0-54.0 [facility] Comment on above: Performed By: #### C BC #### [facility] [address] [place] [address] Dr. Loyd Parks Hemoglobin (Bld) [Mass/Vol] 13.1 g/dL Critically low 14.0-18.0 [facility] Comment on above: Performed By: #### C BC #### [facility] [address] [address] [address] Loyd Parks IG # 0.05 10e3/ul Critically high 0.00-0.03 [facility] Comment on above: Performed By: #### C BC #### [facility] [address] [address] [address] Loyd Parks IG % 0.5 % Normal 0.0-0.5 [facility] Comment on above: Performed By: #### C BC #### [facility] [address] [place] [address] Dr. Loyd Parks LYMPH # 1.4 103/ul Normal 1.2-3.8 [facility] Comment on above: Performed By: #### C BC #### [facility] [address] [place] [address] Dr. Loyd Parks Lymphocytes/100 WBC (Bld) 14.1 % Critically low 20.5-60.0 [facility] Comment on above: Performed By: #### C BC #### [facility] [address] [place] [address] Dr. Loyd Parks MANUAL DIFF REQ NO Normal [facility] Comment on above: Performed By: #### C BC #### [facility] [address] [place] [address] Dr. Loyd Parks MCH (RBC) [Entitic mass] 31.6 pg Normal 25.9-34.0 [facility] Comment on above: Performed By: #### C BC #### [facility] [address] [place] [address] Dr. Loyd Parks MCHC (RBC) [Mass/Vol] 33.0 g/dL Normal 29.9-35.2 [facility] Comment on above: Performed By: #### C BC #### [facility] [address] [place] [address] Dr. Loyd Parks MCV (RBC) [Entitic vol] 95.7 fL Critically high 80.0-94.0 [facility] Comment on above: Performed By: #### C BC #### [facility] [id number] Loyd Parks MONO # 1.0 103/ul Critically high 0.3-0.8 [facility] Comment on above: Performed By: #### C BC #### [facility] [address] [place] [address] Dr. Loyd Parks Monocytes/100 WBC (Bld) 9.7 % Normal 1.7-12.0 [facility] Comment on above: Performed By: #### C BC #### [facility] [address] [place] [address] Dr. Loyd Parks NEUT # 7.2 103/ul Critically high 1.4-6.5 [facility] Comment on above: Performed By: #### C BC #### [facility] [address] [place] [address] Dr. Loyd Parks Neutrophils/100 WBC (Bld) 70.3 % Normal 43.0-75.0 [facility] Comment on above: Performed By: #### C BC #### [facility] [address] [place] [address] Dr. Loyd Parks Platelet mean volume (Bld) [Entitic vol] 10.8 fL Normal 9.5-13.5 [facility] Comment on above: Performed By: #### C BC #### [facility] [address] [place] [address] Dr. Loyd Parks PLT 199 103/ul Normal 150-450 [facility] Comment on above: Performed By: #### C BC #### [facility] [address] [place] [address] Dr. Loyd Parks RBC 4.15 106/ul Critically low 4.70-6.10 [facility] Comment on above: Performed By: #### C BC #### [facility] [address] [place] [address] Dr. Loyd Parks WBC 10.2 103/ul Normal 4.0-11.0 [facility] Comment on above: Performed By: #### C BC #### [facility] [address] [place] [address] Dr. Loyd Parks CULTURE BLOODon 07-27-2022 Microscopic examination of blood, culture Culture Observations: NO GROWTH AT 5 DAYS. Normal [facility] Comment on above: Performed By: #### E RUR #### [facility] [address] [place] [address] Dr. Loyd Parks [facility]on SARS-CoV-2 (COVID-19) RNA SAUNDRA+probe Ql (Unsp spec) Not detected Normal NOT DETECTED [facility] Comment on above: Result Comment: This test is not yet approved or cleared by the [place] FDA. When there are no FDA-approved or cleared tests available, and other criteria are met, FDA can make tests available under an emergency access mechanism called an Emergency Use Authorization (EUA). The EUA for this test is supported by the Supervisor Hand Silvering of Health and Human Service's (HHS's) declaration [...] SARS-CoV-2. Performed By: #### E RUR #### [facility] [address] [place] [address] Dr. Loyd Parks LACTATE/LACTIC ACIDon 2022 Lactate [Moles/Vol] 2.2 mmol/L Critically high 0.4-2.0 [facility] Comment on above: Performed By: #### C MP, BNP, CMADM #### [facility] [address] [place] [address] Dr. Loyd Parks PROF 14(COMP METB)on 023 Albumin [Mass/Vol] 3.3 g/dL Critically low 3.4-5.0 [facility] Comment on above: Performed By: #### C MP, BNP, CMADM #### [facility] [address] [address] [address] Loyd Parks Albumin/Globulin [Mass ratio] 0.9 {ratio} Normal [facility] Comment on above: Performed By: #### C MP, BNP, CMADM #### [facility] [address] [address] [address] Loyd Parks ALP [Catalytic activity/Vol] 91 U/L Normal 46-116 [facility] Comment on above: Performed By: #### C MP, BNP, CMADM #### [facility] [address] [address] [address] Loyd Parks ALT [Catalytic activity/Vol] 18 U/L Normal 16-63 [facility] Comment on above: Performed By: #### C MP, BNP, CMADM #### [facility] [address] [place] [address] Dr. Loyd Parks Anion gap [Moles/Vol] 12.2 mmol/L Normal [facility] Comment on above: Performed By: #### C MP, BNP, CMADM #### [facility] [address] [place] [address] Dr. Loyd Parks AST [Catalytic activity/Vol] 15 U/L Normal 15-37 [facility] Comment on above: Performed By: #### C MP, BNP, CMADM #### [facility] [address] [place] [address] Dr. Loyd Parks Bilirubin [Mass/Vol] 0.4 mg/dL Normal 0.2-1.0 [facility] Comment on above: Performed By: #### C MP, BNP, CMADM #### [facility] [address] [place] [address] Dr. Loyd Parks Calcium [Mass/Vol] 8.7 mg/dL Normal 8.5-10.1 [facility] Comment on above: Performed By: #### C MP, BNP, CMADM #### [facility] [address] [address] [address] Loyd Parks Chloride [Moles/Vol] 105 mmol/L Normal 98-107 [facility] Comment on above: Performed By: #### C MP, BNP, CMADM #### [facility] [address] [address] [address] Loyd Parks CO2 [Moles/Vol] 28.0 mmol/L Normal 21.0-32.0 [facility] Comment on above: Performed By: #### C MP, BNP, CMADM #### [facility] [address] [place] [address] Dr. Loyd Parks Creatinine [Mass/Vol] 2.25 mg/dL Critically high 0.70-1.30 [facility] Comment on above: Performed By: #### C MP, BNP, CMADM #### [facility] [address] [place] [address] Dr. Loyd Parks EGFR-AF GUYANESE 34 mL/min/1.73m2 Critically low >=60 [facility] Comment on above: Performed By: #### C MP, BNP, CMADM #### [facility] Laboratory [address] [place] [address] Dr. Loyd Parks EGFR-NON AF GUYANESE 28 mL/min/1.73m2 Critically low >=60 [facility] Comment on above: Performed By: #### C MP, BNP, CMADM #### [facility] [address] [place] [address] Dr. Loyd Parks Globulin (S) [Mass/Vol] 3.8 g/dL Normal [facility] Comment on above: Performed By: #### C MP, BNP, CMADM #### [facility] [address] [place] [address] Dr. Loyd Parks Glucose [Mass/Vol] 88 mg/dL Normal 74-106 [facility] Comment on above: Performed By: #### C MP, BNP, CMADM #### [facility] [address] [place] [address] Dr. Loyd Parks Potassium [Moles/Vol] 4.2 mmol/L Normal 3.5-5.1 [facility] Comment on above: Performed By: #### C MP, BNP, CMADM #### [facility] [address] [place] [address] Dr. Loyd Parks Protein [Mass/Vol] 7.1 g/dL Normal 6.4-8.2 [facility] Comment on above: Performed By: #### C MP, BNP, CMADM #### [facility] [address] [address] [address] Loyd Parks Sodium [Moles/Vol] 141 mmol/L Normal 136-145 [facility] Comment on above: Performed By: #### C MP, BNP, CMADM #### [facility] [address] [address] [address] Loyd Parks Urea nitrogen [Mass/Vol] 36.0 mg/dL Critically high 7.0-18.0 [facility] Comment on above: Performed By: #### C MP, BNP, CMADM #### [facility] [address] [place] [address] Dr. Loyd Parks Urea nitrogen/Creatinine [Mass ratio] 16.0 mg/mg Normal [facility] Comment on above: Performed By: #### C MP, BNP, CMADM #### [facility] [address] [place] [address] Dr. Loyd Parks PROTIMEon 07-27-2022 INR Coag (PPP) [Relative time] 0.95 {INR} Normal [facility] Comment on above: Performed By: #### P T, PTT #### [facility] [address] [place] [address] Dr. Loyd Parks INR GUIDELINES SEE BELOW Normal [facility] Comment on above: Result Comment: MARIE RED INR: 2.0 - 3.0 CONDITIONS NOT LISTED BELOW 2.5 - 3.5 FOR PROSTHETIC HEART VALVE REPLACEMENT 2.5 - 3.5 RECURRENT THROMBOSIS Performed By: #### P T, PTT #### [facility] [address] [place] [address] Dr. Loyd Parks PT Coag (PPP) [Time] 10.1 s Normal 9.0-11.6 [facility] Comment on above: Performed By: #### P T, PTT #### [facility] [address] [place] [address] Dr. Loyd Parks PTTon 07-27-2022 aPTT Coag (Bld) [Time] 27.3 s Normal 22.3-36.2 [facility] Comment on above: Performed By: #### P T, PTT #### [facility] [address] [place] [address] Dr. Loyd Parks SYMPTOMATIC COVID-19 ANTIGEN on 07-27-2022 EUA Statement SEE BELOW Normal [facility] Comment on above: Result Comment: This [...] sooner. Performed By: #### C VDAGS #### [facility] [address] [place] [address] Dr. Loyd Parks SARS-CoV-2 (COVID-19) RNA SAUNDRA+probe Ql (Unsp spec) Negative Normal NEGATIVE [facility] Comment on above: Performed By: #### C VDAGS #### [facility] [address] [address] [address] Loyd Parks XR CHEST 2 Von [...] ELIUD KAUR Date: 2022-07-26 22:19 Normal [facility] Provider Letteron 06-25-2022 Provider Letter (Inserted Image. Yasmeen ble to display) June 25, 20[address] NAT MALONE [address] [place] [address] [place] NAT Ramírez 1940 Dear Mr. Malone , We have [...] prompt attention to this matter. Please call [phone] as soon as able. Sincerely, [facility] [address], [place] [address] Normal [facility] POINT OF CARE GLUCOSEon 03-25 Glucose [Mass/Vol] 102 mg/dL Normal 74-106 [facility] Comment on above: Performed By: #### C MP, BNP, CMADM #### [facility] [address] [place] [address] Dr. Loyd Parks ER URINE PROFILEon 2 Bilirubin Ql (U) Negative Normal NEGATIVE [facility] Comment on above: Performed By: #### E RUR #### [facility] [address] [place] [address] Dr. Loyd Parks Clarity (U) CLEAR Normal CLEAR [facility] Comment on above: Performed By: #### E RUR #### [facility] [address] [place] [address] Dr. Loyd Parks Color (U) LT. YELLOW Normal YELLOW [facility] Comment on above: Performed By: #### E RUR #### [facility] [address] [place] [address] Dr. Loyd Parks ERUTHANG A micrscopic examination will be performed if indicated. Normal [facility] Comment on above: Performed By: #### E RUR #### [facility] [address] [place] [address] Dr. Loyd Parks Glucose Ql (U) 100 mg/dl Abnormal NEGATIVE [facility] Comment on above: Performed By: #### E RUR #### [facility] [address] [place] [address] Dr. Loyd Parks Hemoglobin Ql (U) Negative Normal NEGATIVE [facility] Comment on above: Performed By: #### E RUR #### [facility] [address] [place] [address] Dr. Loyd Parks Ketones Ql (U) Negative Normal NEGATIVE [facility] Comment on above: Performed By: #### E RUR #### [facility] [address] [place] [address] Dr. Loyd Parks LEUKOCYTES Negative Normal NEGATIVE [facility] Comment on above: Performed By: #### E RUR #### [facility] [address] [place] [address] Dr. Loyd Parks Nitrite Ql (U) Negative Normal NEGATIVE [facility] Comment on above: Performed By: #### E RUR #### [facility] [address] [place] [address] Dr. Loyd Parks pH (U) 5.5 [pH] Normal 5-9 [facility] Comment on above: Performed By: #### E RUR #### [facility] [address] [place] [address] Dr. Loyd Parks SPEC GRAVITY 1.015 Normal 1.005-<=1.025 [facility] Comment on above: Performed By: #### E RUR #### [facility] [address] [place] [address] Dr. Loyd Parks UA PROTEIN Negative Normal NEGATIVE/ TRACE [facility] Comment on above: Performed By: #### E RUR #### [facility] [address] [place] [address] Dr. Loyd Parks UR MICRO IND NOT INDICATED Normal [facility] Comment on above: Performed By: #### E RUR #### [facility] [address] [place] [address] Dr. Loyd Parks Urobilinogen Qn (U) 0.2 {Malcolm'U}/dL Normal 0.2 - 1. 0 [facility] Comment on above: Performed By: #### E RUR #### [facility] [address] [address] [address] Loyd Parks GROUP A STREP CULTUREon 02-21 S. pyogenes Ag Ql (Unsp spec) Culture Observations: NEGATIVE FOR GROUP A STREPTOCOCCUS. Normal [facility] Comment on above: Performed By: #### S SCRN, GRASTCX #### [facility] [address] [address] [address] Loyd Parks STREPT SCREENon 03-03-2022 STREP SCREEN A Negative Normal NEGATIVE [facility] Comment on above: Performed By: #### S SCRN, GRASTCX #### [facility] [address] [address] [address] Loyd Parks Covid-19 PCR ([facility])on SARS-CoV-2 (COVID-19) RNA SAUNDRA+probe Ql (Unsp spec) Not detected Normal NOT DETECTED [facility] Comment on above: Result Comment: This test is not yet approved or cleared by the [place] FDA. When there are no FDA-approved or cleared tests available, and other criteria are met, FDA can make tests available under an emergency access mechanism called an Emergency Use Authorization (EUA). The EUA for this test is supported by the Supervisor Hand Silvering of Health and Human Service's (HHS's) declaration [...] By: #### C MP, BNP, CMADM #### [facility] [address] [address] [address] Loyd Parks POINT OF CARE GLUCOSEon 12-22 Glucose [Mass/Vol] 133 mg/dL Critically high 74-106 [facility] Comment on above: Performed By: #### E RUR #### [facility] [address] [place], [place] [address] Dr. Loyd Parks POINT OF CARE GLUCOSEon 09-0 Glucose [Mass/Vol] 75 mg/dL Normal 74-106 [facility] Comment on above: Performed By: #### E RUR #### [facility] [address] [place], [place] [address] ABD/PELVIS WO CONon [...] SAURABH SINGH Date: 2021-09-03 08:35 Normal [facility] ER URINE PROFILEon 2 Bilirubin Ql (U) Negative Normal NEGATIVE [facility] Comment on above: Performed By: #### E RUR #### [facility] [address] [place] [address] Dr. Loyd Parks Clarity (U) CLEAR Normal CLEAR [facility] Comment on above: Performed By: #### E RUR #### [facility] [address] [place] [address] Dr. Loyd Parks Color (U) LT. YELLOW Normal YELLOW [facility] Comment on above: Performed By: #### E RUR #### [facility] [address] [place] [address] Dr. Loyd SNELLMaxine A micrscopic examination will be performed if indicated. Normal [facility] Comment on above: Performed By: #### E RUR #### [facility] [address] [place] [address] Dr. Loyd Parks Glucose Ql (U) >1000 Abnormal NEGATIVE [facility] Comment on above: Performed By: #### E RUR #### [facility] [address] [place] [address] Dr. Loyd Parks Hemoglobin Ql (U) Negative Normal NEGATIVE [facility] Comment on above: Performed By: #### E RUR #### [facility] [address] [address] [address] Loyd Parks Ketones Ql (U) Negative Normal NEGATIVE [facility] Comment on above: Performed By: #### E RUR #### [facility] [address] [place] [address] Dr. Loyd Parks LEUKOCYTES Negative Normal NEGATIVE [facility] Comment on above: Performed By: #### E RUR #### [facility] [address] [place] [address] Dr. Loyd Parks Nitrite Ql (U) Negative Normal NEGATIVE [facility] Comment on above: Performed By: #### E RUR #### [facility] [address] [place] [address] Dr. Loyd Parks pH (U) 6.0 [pH] Normal 5-9 [facility] Comment on above: Performed By: #### E RUR #### [facility] [address] [place] [address] Dr. Loyd Parks SPEC GRAVITY 1.010 Normal 1.005-<=1.025 [facility] Comment on above: Performed By: #### E RUR #### [facility] [address] [place] [address] Dr. Loyd Parks UA PROTEIN Negative Normal NEGATIVE/ TRACE [facility] Comment on above: Performed By: #### E RUR #### [facility] [address] [place] [address] Dr. Loyd Parks UR MICRO IND NOT INDICATED Normal [facility] Comment on above: Performed By: #### E RUR #### [facility] [address] [place] [address] Dr. Loyd Parks Urobilinogen Qn (U) 0.2 {Malcolm'U}/dL Normal 0.2 - 1. 0 [facility] Comment on above: Performed By: #### E RUR #### [facility] [address] [place] [address] Dr. Loyd Parks ALCOHOLon 07-31-2020 Ethanol [Mass/Vol] mg/dL Normal [facility] Comment on above: Result Comment: FOR MEDICAL USE ONLY. . REF VALUES <10 Performed By: #### A LC ####[facility] [facility] [place] [address] CBC AND DIFFERENTIALon 07-31 % AUTOMATED IMMATURE GRAN 0.4 % Normal 0.0 - 0.9 [facility] Comment on above: Result Comment: Rylie ture Granulocyte Count (IG) includes promyelocytes, myelocytes and metamyelocytes but does not include bands. Percent differential counts (%) should be interpreted in the context of the absolute cell counts (cells/L). Performed By: #### C BCDF #### [facility] [address] [place] [address] Basophils (Bld) [#/Vol] 0.05 10*3/uL Normal 0.00 - 0.10 [facility] Comment on above: Performed By: #### C BCDF #### [facility] [address] [place] [address] Basophils/100 WBC (Bld) 0.6 % Normal 0.0 - 2.0 [facility] Comment on above: Performed By: #### C BCDF #### [facility] [address] [place] [address] Eosinophils (Bld) [#/Vol] 0.21 10*3/uL Normal 0.00 - 0.40 [facility] Comment on above: Performed By: #### C BCDF #### [facility] [address] [place] [address] Eosinophils/100 WBC (Bld) 2.4 % Normal 0.0 - 6.0 [facility] Comment on above: Performed By: #### C BCDF #### [facility] [address] [place] [address] Erythrocyte distribution width (RBC) [Ratio] 13.2 % Normal 11.5 - 14.5 [facility] Comment on above: Performed By: #### C BCDF #### [facility] [address] [place] [address] Hematocrit (Bld) [Volume fraction] 50.0 % Normal 41.0 - 52.0 [facility] Comment on above: Performed By: #### C BCDF #### [facility] [address] [place] [address] Hemoglobin (Bld) [Mass/Vol] 17.3 g/dL Normal 13.5 - 17.5 [facility] Comment on above: Performed By: #### C BCDF #### [facility] [address] [place] [address] Lymphocytes (Bld) [#/Vol] 1.59 10*3/uL Normal 0.80 - 3.00 [facility] Comment on above: Performed By: #### C BCDF #### [facility] [address] [facility] [place] [address] Lymphocytes/100 WBC (Bld) 17.9 % Normal 13.0 - 44.0 [facility] Comment on above: Performed By: #### C BCDF #### [facility] [address] [facility] [place] [address] MCHC (RBC) [Mass/Vol] 34.6 g/dL Normal 32.0 - 36.0 [facility] Comment on above: Performed By: #### C BCDF #### [facility] [address] [facility] [place] [address] MCV (RBC) [Entitic vol] 89 fL Normal 80 - 100 [facility] Comment on above: Performed By: #### C BCDF #### [facility] [address] [place] [address] Monocytes (Bld) [#/Vol] 0.82 10*3/uL High 0.05 - 0.80 [facility] Comment on above: Performed By: #### C BCDF #### [facility] [address] [facility] [place] [address] Monocytes/100 WBC (Bld) 9.2 % Normal 2.0 - 10.0 [facility] Comment on above: Performed By: #### C BCDF #### [facility] [address] [facility] [place] [address] Neutrophils (Bld) [#/Vol] 6.18 10*3/uL High 1.60 - 5.50 [facility] Comment on above: Performed By: #### C BCDF #### [facility] [address] [facility] [place] [place] [address] Neutrophils/100 WBC (Bld) 69.5 % Normal 40.0 - 80.0 [facility] Comment on above: Performed By: #### C BCDF #### [facility] [address] [facility] [place] [address] Platelets (Bld) [#/Vol] 215 10*3/uL Normal 150 - 450 [facility] Comment on above: Performed By: #### C BCDF #### [facility] [address] [place] [address] RBC 5.59 x10E12/L Normal 4.50 - 5.90 [facility] Comment on above: Performed By: #### C BCDF #### [facility] [address] [place] [address] WBC (Bld) [#/Vol] 8.9 10*3/uL Normal 4.4 - 11.3 [facility] Comment on above: Performed By: #### C BCDF #### [facility] [address] [place] [address] CHEST 1 VIEWon 07-31-2020 CHEST 1 VIEW STUDY: Chest Radiograph; 07/30/2020 10:53 PM INDICATION: Shortness of breath. COMPARISON: None available. ACCESSION NUMBER(S): [id number] ORDERING CLINICIAN: ZAID CUELLAR DO TECHNIQUE: Frontal chest was obtained at 2355 hours. FINDINGS: CARDIOMEDIASTINAL SILHOUETTE: Cardiomediastinal silhouette is normal in size and configuration. LUNGS: Lungs are clear. ABDOMEN: No remarkable upper abdominal findings. BONES: No acute osseous changes. IMPRESSION: No acute pulmonary abnormality. Signed by Rodrick Anna MD Electronically signed by: RODRICK ANNA MD Normal [facility] COMPREHENSIVE PANELon 2020 Albumin [Mass/Vol] 3.7 g/dL Normal 3.4 - 5.0 [facility] Comment on above: Performed By: #### C MP ####[facility] [place] [address] ALP [Catalytic activity/Vol] 80 U/L Normal 33 - 136 [facility] Comment on above: Performed By: #### C MP ####[facility] [place] [address] ALT [Catalytic activity/Vol] 12 U/L Normal 10 - 52 [facility] Comment on above: Result Comment: Jade ents treated with Sulfasalazine may generate falsely decreased results for ALT. Performed By: #### C MP ####[facility] [place] [address] Anion gap [Moles/Vol] 13 mmol/L Normal 10 - 20 [facility] Comment on above: Performed By: #### C MP ####[facility] [place] [address] AST [Catalytic activity/Vol] 12 U/L Normal 9 - 39 [facility] Comment on above: Performed By: #### C MP ####[facility] [place] [address] Bilirubin [Mass/Vol] 0.7 mg/dL Normal 0.0 - 1.2 [facility] Comment on above: Performed By: #### C MP ####[facility] [place] [address] Calcium [Mass/Vol] 9.2 mg/dL Normal 8.6 - 10.3 [facility] Comment on above: Performed By: #### C MP ####[facility] [place] [address] Chloride [Moles/Vol] 101 mmol/L Normal 98 - 107 [facility] Comment on above: Performed By: #### C MP ####[facility] [place] [address] Creatinine [Mass/Vol] 1.36 mg/dL High 0.50 - 1.30 [facility] Comment on above: Performed By: #### C MP ####[facility] [place] [address] GFR- AM. 61 mL/min/1.73m2 Normal >60 [facility] Comment on above: Result Comment: CALC ULATIONS OF ESTIMATED GFR ARE PERFORMED USING THE MDRD STUDY EQUATION FOR THE IDMS-TRACEABLE CREATININE METHODS. CLIN CHEM 2007;53:766-72 Performed By: #### C MP ####[facility] [facility] [place] [place] [address] GFR-NON AM. 50 mL/min/1.73m2 Abnormal >60 [facility] Comment on above: Performed By: #### C MP ####[facility] [facility] [place] [address] Glucose [Mass/Vol] 390 mg/dL High 74 - 99 [facility] Comment on above: Performed By: #### C MP ####[facility] [place] [address] HCO3 (Bld) [Moles/Vol] 27 mmol/L Normal 21 - 32 [facility] Comment on above: Performed By: #### C MP ####[facility] [place] [address] Potassium [Moles/Vol] 4.1 mmol/L Normal 3.5 - 5.3 [facility] Comment on above: Performed By: #### C MP ####[facility] [place] [address] Protein [Mass/Vol] 6.8 g/dL Normal 6.4 - 8.2 [facility] Comment on above: Performed By: #### C MP ####[facility] [place] [address] Sodium [Moles/Vol] 137 mmol/L Normal 136 - 145 [facility] Comment on above: Performed By: #### C MP ####[facility] [place] [address] Urea nitrogen [Mass/Vol] 27 mg/dL High 6 - 23 [facility] Comment on above: Performed By: #### C MP ####[facility] [place] [address] CT HEAD WO CONTRASTon 2020 CT HEAD WO CONTRAST STUDY: CT Head without IV Contrast; 07/30/2020, 11:52 PM. INDICATION: Confusion, disorientation. COMPARISON: None Available. ACCESSION NUMBER(S): [id number] ORDERING CLINICIAN: ZAID CUELLAR DO TECHNIQUE: Noncontrast axial CT scan of [...] Electronically signed by: RODRICK ANNA MD Normal [facility] MAGNESIUMon 07-31-2020 Magnesium [Mass/Vol] 2.04 mg/dL Normal 1.60 - 2.40 [facility] Comment on above: Performed By: #### M G #### [facility] [address] [place] [address] PT/INRon 07-31-2020 PT Coag (PPP) [Time] 12.0 s Normal 10.1 - 13.3 [facility] Comment on above: Performed By: #### P TINR #### [facility] [address] [place] [address] PT, INR 1.0 Normal 0.9 - 1.1 [facility] Comment on above: Performed By: #### P TINR #### [facility] [address] [place] [address] Provider Note - ED v2on 07-22 Provider Note - ED v2 Provider Note - ED v2: Chart Review: ED NOTES ED NOTES: History: This is an 80-year-old male presenting from the [facility] by [facility] for chief complaint of a medical evaluation. Patient left his home in [place] 3 days ago because he got into an argument with his and he has not been back since. He was finally located at a [employer] down the street when family called. 911 [...] critically ill patient: no Electronic Signatures: Zaid Cuellar () (Signed 11-Aug-2020 11:59) Authored: ED Notes, HPI, PMH, EKG, Clinical Impression, Attestation, Chart Review, Scores Last Updated: 11-Aug-2020 11:59 by Zaid Cuellar () References: 1. Data Referenced From Triage - ED 30-Jul-2020 23:17 Normal [facility] Risk Screen - Adult Emergenc yon 07-31-2020 Risk Screen - Adult Emergency Preferred Language: Preferred Language: Preferred Language for Discussing Health Care (patient/designee)Lucina najera Advanced Directives: Advance Directive/DNRno Advance Directive Information [...] instruction; written material Cultural Considerationsnone Developmental Considerationsnone Religion Considerationsnone Learning Assessment (Other Learner): Learning Assessment (Other Learner): Other learner availableno Pressure Injury/TB/Substance: Pressure Injury: Do you have a coughno Substance Use Current or Former Historynever: Cigarette/Tobacco, e-Cigarette/Vaping, Alcohol, Street Drugs Admission Risk Screen: Significant IndicatorsComplete CAGE: CAGE: Is this an injured patient at a Trauma Center ([facility]/[place]/[facility]/[place]): no Electronic Signatures: Elizabeth Ivan (MIGUEL) (Signed 30-Jul-2020 23:24) Authored: Preferred Language, Advanced Directives, Family Violence Adult, Learning Assessment (Patient), Learning Assessment (Other Learner), Pressure Injury/TB/Substance, Pressure Injury, CAGE Last Updated: 30-Jul-2020 23:24 by Elizabeth Ivan (MIGUEL) Normal [facility] TROPONIN Ion 07-31-2020 Troponin I.cardiac [Mass/Vol] ng/mL Normal 0.00 - 0.03 [facility] Comment on above: Result Comment: LESS [...] is performed using different testing methodology at [facility] than at other [facility] hospitals. Direct result comparisons should only be made within the same method. Performed By: #### T ROP2 #### [facility] [address] [facility] [place] [address] Triage - EDon 07-31-2020 Triage - ED [...] Arrival: stretcher Mode of Arrival: ambulance Agency: [facility] Agency Name: Monica Accompanied By: buckle coverer Language: Spoken Language Preferred: Frisian Reading Language Preferred: Frisian CHIEF COMPLAINT NAT MALONE is a Male patient with a chief complaint of altered mental status. Triage Date/Time: 30-Jul-2020 22:50 LAILA: 3 Pain Rating (0-10): 0 = None Vital Signs: Temperature: 96.8F ( 36.0C) taken temporal Blood Pressure: 166/103 Mean: Heart Rate: 94 Respiratory Rate: 18 Pulse Oximetry: 97% on room air, no respiratory support. Weight: 230.3 pounds. Calculated 104.5 kg. (stated) Benson Coma Scale: Best Eye Response: (E4) spontaneous Best Motor Response: (M6) obeys commands Best Verbal Response: (V5) oriented Benson Score: 15 Allergies: yes Patient has homicidal [...] Past Medical History Reviewedno Electronic Signatures: Elizabeth Ivan (RN) (Signed 30-Jul-2020 23:23) Authored: Quick Triage, Risk Screens, Pain, Arrival, ABCD, Chart Review, Scores, Past Medical History Last Updated: 30-Jul-2020 23:23 by Elizabeth Ivan (RN) Normal [facility] UA MICROSCOPICon 07-31-2020 RBC 1 /HPF Normal 0-5 [facility] Comment on above: Performed By: #### U AMIC #### [facility] [address] [place] [address] SQUAMOUS EPITH. CELLS <1 Normal [facility] Comment on above: Performed By: #### U AMIC #### [facility] [address] [place] [address] WBC 22 /HPF Abnormal 0-5 [facility] Comment on above: Performed By: #### U AMIC #### [facility] [address] [place] [address] URINALYSISon 07-31-2020 Appearance (U) CLEAR Normal CLEAR [facility] Comment on above: Performed By: #### U A #### [facility] [address] [place] [address] Bilirubin Ql (U) Negative Normal NEGATIVE [facility] Comment on above: Performed By: #### U A #### [facility] [address] [place] [address] Color (U) STRAW Normal STRAW,YELLOW [facility] Comment on above: Performed By: #### U A #### [facility] [address] [place] [address] Glucose Ql (U) >=500(3+) Abnormal NEGATIVE [facility] Comment on above: Performed By: #### U A #### [facility] [address] [place] [address] Hemoglobin Ql (U) SMALL(1+) Abnormal NEGATIVE [facility] Comment on above: Performed By: #### U A #### [facility] [address] [place] [address] Ketones Ql (U) Negative Normal NEGATIVE [facility] Comment on above: Performed By: #### U A #### [facility] [address] [facility] [place] [address] Leukocyte esterase Test strip Ql (U) TRACE Abnormal NEGATIVE [facility] Comment on above: Performed By: #### U A #### [facility] [address] [facility] [place] [address] Nitrite Ql (U) Negative Normal NEGATIVE [facility] Comment on above: Performed By: #### U A #### [facility] [address] [facility] [place] [address] pH (U) 6.0 [pH] Normal 5.0 - 8.0 [facility] Comment on above: Performed By: #### U A #### [facility] [address] [place] [address] Protein Ql (U) 100(2+) Abnormal NEGATIVE [facility] Comment on above: Performed By: #### U A #### [facility] [address] [facility] [place] [address] Specific gravity (U) [Rel density] 1.025 Normal 1.005 - 1.035 [facility] Comment on above: Performed By: #### U A #### [facility] [address] [place] [address] Urobilinogen (U) [Mass/Vol] mg/dL Normal 0.0 - 1.9 [facility] Comment on above: Performed By: #### U A #### [facility] [address] [place] [address] Vital Signs Date Time Vital Sign Value Performing Clinician Dontae fuentes 09-16-2022 14:48-0400 Blood Pressure Location Umer RUFFIN [facility] 09-16-2022 14:48-0400 Diastolic blood pressure 74 mm[Hg] Umer RUFFIN [facility] 09-16-2022 14:48-0400 Heart rate 70 /min Umer RUFFIN [facility] 09-16-2022 14:48-0400 Respiratory rate 16 /min Umer RUFFIN [facility] 09-16-2022 14:48-0400 Systolic blood pressure 130 mm[Hg] Umer RUFFIN [facility] 04-26-2022 11:04-0500 Blood Pressure Location Umer RFUFIN [facility] 04-26-2022 11:04-0500 Diastolic blood pressure 78 mm[Hg] Umer RUFFIN [facility] 04-26-2022 11:04-0500 Heart rate 62 /min Umer RUFFIN [facility] 04-26-2022 11:04-0500 Respiratory rate 16 /min Umer RUFFIN [facility] 04-26-2022 11:04-0500 Systolic blood pressure 134 mm[Hg] Umer RUFFIN [facility] 12-03-2021 13:08-0400 Blood Pressure Location Umer RUFFIN [facility] 12-03-2021 13:08-0400 Diastolic blood pressure 70 mm[Hg] Umer RUFFIN [facility] 12-03-2021 13:08-0400 Heart rate 65 /min Umer RUFFIN [facility] 12-03-2021 13:08-0400 Respiratory rate 16 /min Umer RUFFIN [facility] 12-03-2021 13:08-0400 Systolic blood pressure 109 mm[Hg] Umer RUFFIN [facility] 09-03-2021 13:39-0400 Blood Pressure Location [employer] [facility] 09-03-2021 13:39-0400 Diastolic blood pressure 67 mm[Hg] Umer RUFFIN [facility] 09-03-2021 13:39-0400 Heart rate 68 /min Umer RUFFIN [facility] 09-03-2021 13:39-0400 Respiratory rate 16 /min [employer] [facility] 09-03-2021 13:39-0400 Systolic blood pressure 102 mm[Hg] [employer] [facility] Encounters Encounter Date Encounter Type Care Provider Facility Start: 06-19-2023 End: 06-19-2023 ambulatory JUAN PABLO ALANIZ Not Available Start: 05-13-2023 End: 05-14-2023 ambulatory CAIT PINTO Facility:[facility] Start: 05-13-2023 End: 05-13-2023 Patient encounter procedure CAIT PINTO [facility] Start: 04-23-2023 End: 04-23-2023 ambulatory JUAN PABLO ALANIZ Not Available Start: 03-26-2023 End: 03-26-2023 ambulatory JUAN PABLO ALANIZ Not Available Start: 02-27-2023 End: 02-27-2023 ambulatory CHET Burr LORI Not Available Start: 12-18-2022 End: 12-19-2022 ambulatory CAIT PINTO Facility:[facility] Start: 09-16-2022 End: 09-17-2022 ambulatory Umer RUFFIN Facility:[facility] Start: 09-16-2022 End: 09-16-2022 Patient encounter procedure Umer RUFFIN [facility] Start: 07-26-2022 End: 07-27-[address] JUAN PABLO ALANIZ Facility:[facility] Start: 06-26-2022 End: 06-27-[address] JUAN PABLO ALANIZ Facility:[facility] Start: 05-23-2022 End: 05-24-[address] JUAN PABLO ALANIZ Facility:[facility] Start: 04-26-2022 End: 04-26-2022 Patient encounter procedure Umer RUFFIN [facility] Start: 04-22-2022 End: 04-23-[address] JUAN PABLO ALANIZ Facility:[facility] Start: 04-16-2022 End: 04-16-[address] JUAN PABLO ALANIZ Facility:[facility] Start: 04-08-2022 End: 04-08-2022 Patient encounter procedure Umer RUFFIN [facility] Start: 04-04-2022 ambulatory SHELLIE ROJAS . Facility:[facility] Start: 03-08-2022 End: 03-08-[address] JUAN PABLO ALANIZ Facility:[facility] Start: 03-04-2022 Encounter for preprocedural cardiovascular examination DR VINH HOLCOMB . [facility] Start: 03-04-2022 Encounter for preprocedural laboratory examination DR VINH HOLCOMB . [facility] Start: 03-03-2022 End: 03-03-[address] JUAN PABLO ALANIZ Facility:[facility] Start: 03-02-2022 Encounter for preprocedural cardiovascular examination DR VINH HOLCOMB . [facility] Start: 02-26-[address] VINH HOLCOMB . Faci lity:[facility] Start: 02-22-2022 End: 02-23-2022 Encounter for preprocedural cardiovascular examination DR VINH HOLCOMB . Facility:[facility] Start: 02-22-2022 End: 02-23-[address] VINH HOLCOMB . Facility:[facility] Start: 02-22-2022 End: 02-23-2022 Encounter for preprocedural laboratory examination DR VINH HOLCOMB . Facility:[facility] Start: 02-19-2022 End: 02-20-2022 ambulatory MANDIE Goodman [facility] Facility:[facility] Start: 02-04-[address] VINH HOLCOMB . Faci lity:[facility] Start: 01-22-2022 End: 01-23-[address] JUAN PABLO ALANIZ Facility:[facility] Start: 01-01-2022 End: 01-01-[address] VINH HOLCOMB . Facility:[facility] Start: 12-13-2021 End: 12-14-[address] VINH HOLCOMB . Facility:[facility] Start: 12-03-2021 End: 12-03-2021 Patient encounter procedure Umer RUFFIN [facility] Start: 11-29-2021 End: 11-30-2021 ambulatory MANDIE Goodman [facility] Facility:[facility] Start: 11-27-2021 End: 11-27-[address] VINH HOLCOMB . Facility:[facility] Start: 10-02-2021 End: 10-03-[address] VINH HOLCOMB . Facility:[facility] Start: 09-21-2021 End: 09-21-[address] SUJIT GR . Facility:[facility] Start: 09-19-2021 End: 09-20-2021 ambulatory [facility] Maxine [facility] Facility:[facility] Start: 09-15-2021 End: 09-16-[address] SPARKLE NELSON Facility:[facility] Start: 09-03-2021 End: 09-03-2021 Patient encounter procedure Umer RUFFIN [facility] Start: 09-03-2021 End: 09-03-[address] JUAN PABLO ALANIZ Facility:[facility] Procedures Date Procedure Procedure Detail Performing Clinician Esophagogastroduodenoscopy Goldie RUFFIN Plan of Treatment Date Care Activity Detail Author Start: 08-22-2022 ambulatory Ambulatory Facility:[facility] Immunizations Immunization Date Immunization Notes Care Provider Fa liv 02-22-2022 influenza virus vacc ine, unspecified formulation Umer RUFFIN [facility] 12-21-2020 SARS-CoV-2 (COVID-19 ) mRNA BNT-162b2 vax Umer RUFFIN [facility] 11-30-2020 SARS-CoV-2 (COVID-19 ) mRNA BNT-162w4 vax Umer RUFFIN [facility] 01-24-2020 influenza virus vacc ine, unspecified formulation Umer RUFFIN [facility] 03-04-2019 influenza virus vacc ine, unspecified formulation Umer RUFFIN [facility] 08-05-2018 pneumococcal polysaccharide vaccine, 23 valent Umer RUFFIN [facility] 12-18-2016 influenza virus vacc ine, unspecified formulation Umer RUFFIN [facility] 12-06-2015 influenza virus vacc ine, unspecified formulation Umer RUFFIN [facility] 12-21-2014 influenza virus vacc ine, unspecified formulation Umer RUFFIN [facility] Payers Date Payer Category Payer Unknown [id number] 1959 Unknown [id number] 1938 Unknown [id number] 2.16.84 0.1.505358.3.579.2.593 1938 Unknown [id number] 2.16.84 0.1.013623.3.579.2.593 1938 Unknown [id number] 2.16.84 0.1.442781.3.579.2.593 1938 Unknown [id number] 2.16.84 0.1.593952.3.579.2.593 1938 Unknown [id number] 2.16.84 0.1.937726.3.579.2.593 1938 Unknown [id number] 2.16.84 0.1.396497.3.579.2.593 1938 Unknown [id number] 2.16.84 0.1.911814.3.579.2.593 1938 Unknown [id number] 2.16.84 0.1.216656.3.579.2.593 1938 Unknown [id number] 2.16.84 0.1.054063.3.579.2.593 1938 Unknown [id number] 2.16.84 0.1.902079.3.579.2.593 1938 Unknown [id number] 2.16.84 0.1.996271.3.579.2.593 1938 Unknown [id number] 2.16.84 0.1.477325.3.579.2.593 1938 Unknown [id number] 2.16.84 0.1.645038.3.579.2.593 1938 Unknown [id number] 2.16.84 0.1.433089.3.579.2.593 1938 Unknown [id number] 2.16.84 0.1.959902.3.579.2.593 1938 Unknown [id number] 2.16.84 0.1.863455.3.579.2.593 1938 Unknown [id number] 2.16.84 0.1.164283.3.579.2.593 1938 Unknown [id number] 2.16.84 0.1.338699.3.579.2.593 1938 Unknown [id number] 2.16.84 0.1.895276.3.579.2.593 1938 Unknown [id number] 2.16.84 0.1.981368.3.579.2.593 1938 Unknown [id number] 2.16.84 0.1.361856.3.579.2.593 1938 Unknown [id number] 2.16.84 0.1.960359.3.579.2.593 1938 Unknown [id number] 2.16.84 0.1.245539.3.579.2.593 1938 Unknown [id number] 2.16.84 0.1.799796.3.579.2.593 1938 Unknown [id number] 2.16.8 40.1.402626.3.579.2.727 1938 Unknown [id number] 2.16.8 40.1.705063.3.579.2.727 1938 Unknown [id number] 2.16.8 40.1.958295.3.579.2.727 1938 Unknown [id number] 2.16.84 0.1.655101.3.579.2.1259 1938 Unknown [id number] 2.16.84 0.1.459655.3.579.2.1259 1938 Unknown [id number] 2.16.840 .1.497577.3.579.2.1259 1938 Unknown [id number] 2.16.840 .1.304982.3.579.2.1259 Social History Date Type Detail Facility Start: 09-03-2021 Tobacco smoking status Ex-smoker (fi nding) [facility] Sex Assigned At Male [facility] Start: 04-26-2022 Tobacco smoking status Never s moked tobacco (finding) [facility] Tobacco smoking status Never [facility] Functional Status Date Assessment Result Facility 09-16-2022 Functional Status N/A [facility] 04-26-2022 Functional Status N/A [facility] 12-03-2021 Functional Status N/A [facility] 09-03-2021 Functional Status N/A [facility] Clinical Notes 09-03-2021 to 09-16-2022 Note [...] your health care provider. General instructions Take cntk-nnm-mhvmsjn and prescription medicines only as told by [...] provider. Document Revised: 11/27/2020 Document Reviewed: 11/27/2020 [employer] Patient Education 2022 [employer]. Follow Up Care 04/26/2022 11:39:09 With:ERIK MENG, Umer Schultz, URL Address: [facility] [address] , [place] [address]- When: Unknown [facility] [place] 05-23-2022 Note CONSULTATION CONSULTATION DATE: 05/23/2022 HISTORY: [...] indicated. Patient agrees with this plan. [facility] 04-26-2022 Hospital Discharge instructions Patient Education [...] urethra. Follow these instructions at home: Take olti-wfp-hnkbqqc and prescription medicines only as told by [...] 03/10/2006 Document Revised: 02/02/2019 Document Reviewed: 04/14/2017 [employer] Patient Education 2020 [employer] [facility] [employer] Follow Up Care 04/08/2022 14:01:00 With:ERIK MENG, Umer Schultz, URL Address: [address] [place] [address]- When: Unknown [facility] 04-08-2022 Hospital Discharge instructions Patient Education 04/08/2022 [...] urethra. Follow these instructions at home: Take ahea-anc-ykdrlug and prescription medicines only as told by [...] 03/10/2006 Document Revised: 02/02/2019 Document Reviewed: 04/14/2017 [employer] [facility] [employer] Patient Education 2020 [employer]. Follow Up Care 12/03/2021 14:11:02 With:ERIK MENG, Umer Schultz, URL Address: [facility] [address] , [place] [address]- When: Unknown [facility] 01-22-2022 Note CONSULTATION CONSULTATION DATE: 01/22/2022 CHIEF [...] proceed. CC: Juan Pablo Alaniz M.D. 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 He does not use heat or ice to his back at this time. Current medications include gabapentin 200 mg t.i.d., nabumetone 750 mg b.i.d., Calhoun 5/325 t.i.d. Patient does use a walking [...] L3 and L4, L5. A refill for Calhoun 5/325 t.i.d. will be sent today. He will receive an oral U-Tox in the office today. Supportive measures such as stretching, a menthol heat rub and heat application to his back were discussed. I did recommend a Boost supplement daily. Patient will be followed up in the office post procedure and agrees to move forward. [facility] 12-03-2021 Hospital Discharge instructions Patient Education [...] urethra. Follow these instructions at home: Take hyrx-gpu-lpwuxxv and prescription medicines only as told by [...] 03/10/2006 Document Revised: 02/02/2019 Document Reviewed: 04/14/2017 [employer] [facility] [employer] Patient Education 2020 [employer]. Follow Up Care 09/03/2021 14:17:23 With:ERIK MENG, Umer Schultz, EDDIEL Address: [facility] [address] , [place] [address]- [phone] When:04/04/2022 Comments:PVR [facility] [place] 10-02-2021 Note CONSULTATION PROCEDURE DATE: 10/02/2021 PREOPERATIVE [...] he reports mitigation of his pain symptomatology. [facility] Signed and Approved by: DR VINH HOLCOMB . 10/09/2021 09:28:00 [facility] 10-02-2021 Note CONSULTATION CONSULTATION DATE: 10/02/2021 CHIEF [...] three times a day. We will re-prescribe Calhoun 5/325 t.i.d. which he had received from [...] to proceed. CC: Juan Pablo Alaniz M.D. [facility] Signed and Approved by: DR VINH HOLCOMB . 10/09/2021 09:28:00 [facility] 09-03-2021 Hospital Discharge instructions Patient Education 09/03/2021 [...] 03/10/2006 Document Revised: 11/27/2018 Document Reviewed: 02/07/2017 [employer] Patient Education 2020 [employer]. 09/03/2021 13:53:06 Benign Prostatic Hyperplasia Benign Prostatic [...] urethra. Follow these instructions at home: Take omiu-die-nypgvfn and prescription medicines only as told by [...] 03/10/2006 Document Revised: 02/02/2019 Document Reviewed: 04/14/2017 [employer] Patient Education 2019 [employer]. Follow Up Care 07/03/2021 15:21:16 With:Umer RUFFIN MD, URL Address: [facility] [address], [place] [address]- [phone] When:Within 3 Month(s) Comments:f/u in 3 months with PVR scan [facility] Evaluation + Plan note Future Appointments Appointment Date:12/03/2021 01:15:00 PM Scheduled Provider:Umer RUFFIN MD Location:[facility] Appointment Type:URO Office Visit [facility] Evaluation + Plan note Future Appointments Appointment Date:04/08/2022 12:45:00 PM Scheduled Provider:Umer RUFFIN MD Location:[facility] Appointment Type:URO Office Visit [facility] Evaluation + Plan note Future Appointments Appointment Date:04/26/2022 10:15:00 AM Scheduled Provider:Umer RUFFIN MD [facility] Appointment Type:URO Office Visit [facility] Evaluation + Plan note Future Appointments Appointment Date:07/22/2022 08:45:00 AM Scheduled Provider:Umer RUFFIN MD [facility] Appointment Type:URO Office Visit [facility] Evaluation + Plan note Future Appointments Appointment Date:12/20/2022 08:30:00 AM Scheduled Provider:Umer RUFFIN MD Location:[facility] Appointment Type:URO Office Visit [facility] Hospital course Narrative No data available for this section [facility] Hospital Discharge instructions No data available for this section [facility] Progress note No data available for this section [facility] Summary Purpose Family History No Family History Records FoundNo Family History Records Found No data available for this section No Family History Records FoundNo Family History Records Found Advance Directives No Advanced Directives Records FoundNo Advanced Directives Records FoundNo Advanced Directives Records FoundNo Advanced Directives Records Found Additional Source Comments (unrecognized sect ion and content) No Status Records FoundNo Status Records FoundNo Status Records FoundNo Status Records Found INFORMATION SOURCE (unrecogn ized section and content) DATE CREATED AUTHOR 11/14/2020 [facility] DATE CREATED AUTHOR AUTHOR'S ORGANIZ ATION [facility]20[facility] DATE CREATED AUTHOR AUTHOR'S ORGANIZ ATION 05/20/2023 [facility] DATE CREATED AUTHOR AUTHOR'S ORGANIZ ATION 06/20/2023 [facility] EPIC Care Team (unrecognized sect ion and content) Personnel Name: JUAN PABLO ALANIZ MD Address: [address] [place] [address] Personnel Name: JUAN PABLO ALANIZ MD Address: [address] [place] [address] Personnel Name: JUAN PABLO ALANIZ MD Address: Address: [address] [place] [address] Personnel Name: JUAN PABLO ALANIZ MD Address: Address: [address] [place] [address] Personnel Name: JUAN PABLO ALANIZ MD Address: Address: [address] [place] [address] Personnel Name: JUAN PABLO ALANIZ MD Address: Address: [address] [place] [address] FOR RECORDS PERTAINING TO PATIENTS WHO ARE [...] BE BASED ON THE PRIMARY CLINICAL RECORDS. [facility] [employer] [facility]. provides no warranty or guarantee of the accuracy or completeness of information in this document.
[2023-07-26 06:49] LABS: Glucometer 129 mg/dL (74-106)
--- NOTE | 2023-07-26 07:01 | PC.NURSE ---
Per , she woke to find him dressed and when asked he stated he was going to work. She stated she told him he was retired but he still insisted his boss called him to work
[2023-07-26 07:09] LABS: Basophils Absolute Auto 0.1 10^3/uL (0.0-0.1); Basophils Percent Auto 0.8 % (0.2-2.0); Eosinophils Absolute Auto 0.6 10^3/uL (0.0-0.7); Eosinophils Percent Auto 6.6 % (0.9-7.0); Hematocrit 37.9 % (42.0-54.0); Hemoglobin 12.4 g/dL (14.0-18.0); Immature Granulocytes Abs Auto 0.02 10^3/uL (0.00-0.03); Immature Granulocytes Pct Auto 0.2 % (0.0-0.5); Lymphocytes Absolute Auto 1.7 10^3/uL (1.2-3.8); Lymphocytes Percent Auto 19.7 % (20.5-60.0); Mean Corpuscular HGB Conc 32.7 g/dL (29.9-35.2); Mean Corpuscular Volume 97.9 fL (80.0-94.0); Mean Platelet Volume 10.7 fL (9.5-13.5); Monocytes Absolute Auto 0.8 10^3/uL (0.3-0.8); Monocytes Percent Auto 9.4 % (1.7-12.0); Neutrophils Absolute Auto 5.4 10^3/uL (1.4-6.5); Neutrophils Percent Auto 63.3 % (43.0-75.0); Platelet Count 176 10^3/uL (150-450); Red Blood Count 3.87 10^6/uL (4.70-6.10); Red Cell Distribution Width 13.6 % (11.0-15.0); White Blood Count 8.6 10^3/uL (4.0-11.0)
[2023-07-26 07:31] LABS: Anion Gap 10.3; BUN Creatinine Ratio 20.9; Calcium 8.5 mg/dL (8.5-10.1); Carbon Dioxide 29.9 mmol/L (21.0-32.0); Chloride 106 mmol/L (98-107); Estimated GFR (African America 40 (>=60); Estimated GFR (Non-African Ame 33 (>=60); Ethanol <3 mg/dL; Glucose 139 mg/dL (74-106); Potassium 4.2 mmol/L (3.5-5.1); Sodium 142 mmol/L (136-145)
[2023-07-26 08:37] LABS: Bilirubin Urine NEGATIVE (NEGATIVE); Blood Urine SMALL (NEGATIVE); Clarity Urine CLEAR (CLEAR); Color Urine LT. YELLOW (YELLOW); Glucose Urine UA NEGATIVE (NEGATIVE); Ketones Urine NEGATIVE (NEGATIVE); Leukocyte Esterase Urine NEGATIVE (NEGATIVE); Nitrite Urine NEGATIVE (NEGATIVE); Protein Urine TRACE mg/dL (NEG/TRACE); Specific Gravity Urine 1.015 (1.005-1.025); Urobilinogen Urine 0.2 EU/dL (0.2-1.0)
[2023-07-26 08:46] LABS: Amphetamine Screen Urine NEGATIVE (NEGATIVE); Barbiturates Screen Urine NEGATIVE (NEGATIVE); Benzodiazepines Screen Urine NEGATIVE (NEGATIVE); Buprenorphine Screen Urine NEGATIVE (NEGATIVE); Cannabinoid Screen Urine NEGATIVE (NEGATIVE); Cocaine Screen Urine NEGATIVE (NEGATIVE); Methadone Screen Urine NEGATIVE (NEGATIVE); Methamphetamines Screen Urine NEGATIVE (NEGATIVE); Opiate Screen Urine NEGATIVE (NEGATIVE); Oxycodone Screen Urine NEGATIVE (NEGATIVE); Phencyclidine Screen Urine NEGATIVE (NEGATIVE); Tricyclic Antidepressant Urine NEGATIVE (NEGATIVE)
[2023-07-26 08:54] LABS: Bacteria Urine NONE SEEN #/HPF (NONE SEEN); Cast Seen? NONE SEEN #/LPF (NONE SEEN); Crystals Seen? None Seen #/HPF (None Seen); Mucus Urine NONE SEEN (NONE SEEN); RBC Urine 0-2 #/HPF (0-2); Squamous Epithelial Cell Urine NONE SEEN #/LPF (NONE/RARE); WBC Urine 0-2 #/HPF (NONE SEEN)
[2023-07-26 10:55] VITALS: BP 128/84; PULSE 84; O2SAT 99
[2023-07-26] MEDS: DIPHENHYDRAMINE HCL 50 MG/ML (1ML) VIAL 25 MG IM (11:52)
[2023-07-26] MEDS: HALOPERIDOL LACTATE 5 MG/ML VIAL IM (11:54)
[2023-07-26 11:59] VITALS: BP 175/67; PULSE 82; O2SAT 99
[2023-07-26 12:57] LABS: Glucometer 146 mg/dL (74-106)
--- OUTSIDE RECORDS SUMMARY | 2023-07-26 13:07 | XMS_ITS | CCD ---
Author Organization [facility] Care Team Providers Care Airfield Manager Name Role Phone JUAN PABLO ALANIZ Primary [...] ZHANG ., DR VINH Freeman Admitting Unavailable HLOCOMB ., DR VINH Freeman Consulting Unavailable ZHNAG ., DR VINH Freeman Consulting Unavailable HOLCOMB [...] BLAIR, CAIT Chang Attending Unavailable BLAIR, CAIT hCang Attending Unavailable JUAN PABLO ALANIZ Attending Unavailable JUAN PABLO ALANIZ Attending Unavailable CHET SANDOVAL Attending Unavailable JUAN PABLO ALANIZ Attending Unavailable Allergies Allergy Classification Reported Allergen(s) Allergy Type Date of Onset Reaction(s) Facility (8 sources) Penicillin; Translations: [penicillin] Drug Allergy 12-01-2021 Hives [facility] (2 sources) Penicillins Drug allergy (disorder) [facility] Medications Current Medications Medication Drug [...] # 30 tab(s), Refills(s) 11, Pharmacy: [facility], 167, cm, 09/16/22 15:10:00 EDT, Height/Length Dosing, 120, kg, 09/16/22 15:10:00 EDT, Weight Dosing Start Date: 09/16/22 Stop Date: 09/11/23 Status: Ordered Start: 04-26-2022 take 1 tablet by [facility] once daily Vesicare 5 mg Tab 5 mg = 1 tab(s), Oral, Daily, # 30 tab(s), Refills(s) 11, Pharmacy: [facility], 174, cm, 12/03/21 13:40:00 EDT, Height/Length [...] Start: 10-25-2021 take 1 capsule by mo [facility] once daily Flomax 0.4 mg Cap 0.4 mg = 1 cap(s), Oral, Daily, # 90 cap(s), Refills(s) 3, Pharmacy: [facility], 174, cm, 09/03/21 13:40:00 EDT, Height/Length Dosing, 112.5, kg, 09/03/21 13:40:00 EDT, Weight Dosing Start Date: 10/25/21 Status: Ordered Start: 07-03-2021 take 1 capsule by mo [facility] once daily Flomax 0.4 mg Cap 0.4 mg = 1 cap(s), Oral, Daily, # 30 cap(s), Refills(s) 3, Pharmacy: [facility], 174, cm, 07/17/20 5:39:00 EDT, Height/Length Dosing, 112.5, kg, 07/17/20 5:39:00 EDT, Weight Dosing Start Date: 07/03/21 Status: Ordered 24 hr tolterodine tartrate 4 mg extended release oral capsule (4 sources) Cholinergic Muscarinic Antagonist Start: 01-17-2021 take 1 capsule by mouth once daily tolterodine 4 mg Cap-ER 4 mg = 1 cap(s), Oral, Daily, # 30 cap(s), Refills(s) 11, Pharmacy: [facility], 174, cm, 09/03/21 13:40:00 EDT, Height/Length [...] 09-03-2021 Chronic Other aftercare (1 source) 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; Translations: [OTH [facility] CURRENT DRUG THERAPY] Onset: 07-31-2022 Episodic Other aftercare (1 source) 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 Yasmeen ble to display) May 13, 2023 NAT MALONE [address] [place] [address] [address] [place] [address] : 1940 Dear Nat, You missed your [...] [facility] [address], [place] [address] [facility] Ambulatory Visit Summaryon 0 09-16-2022 Ambulatory Visit [...] ERIK MENG, Umer Schultz Where: [facility] Patient Educationon 09-17-19 23 Patient Education Obstetrics [...] health care provider. General instructions ? Take [id number] and prescription medicines only as told by [...] monitor yo (more content not included)... Normal [facility] Urology Office/Clinic Noteon 09-16-2022 Urology Office/Clinic Note [...] [facility]rology [address], [place] [address]- Additional Instructions: 3 mos to increasing vesicare [...] influenza virus vaccine, inactivated 12/21/2014 Recorded Normal [facility] Comment on above: Result Comment: Elec tronically Signed By: ERIK MENG, Umer Schultz\.br\Date and Time Signed: 09/16/22 15:42 EDT\.br\Electronically Co-Signed By: Fawn Yost\.br\Date and Time Co-Signed: 09/16/22 15:41 EDT BNPon 07-27-2022 Natriuretic peptide B (Bld) [Mass/Vol] 178.0 pg/mL Normal <=1,800.0 [facility] Comment on above: Performed By: #### C MP, BNP, CMADM #### [facility] [address] [address] [address] Loyd Parks CARDIAC SPARKLE ADMITon 023 CK [Catalytic activity/Vol] 50 U/L Normal 39-308 [facility] Comment on above: Performed By: #### C MP, BNP, CMADM #### [facility] [address] [address] [address] Loyd Parks CK.MB [Mass/Vol] 0.83 ng/mL Normal <=3.60 [facility] Comment on above: Performed By: #### C MP, BNP, CMADM #### [facility] [address] [address] [address] Loyd Parks HSTROP 6.3 pg/mL Normal 4.0-76.1 [facility] Comment on above: Result Comment: CUT- OFF POINTS HAVE BEEN ESTABLISHED BASED ON THE FOURTH UNIVERSAL DEFINITIONS OF MYOCARDIAL INFARCTION. THE UPPER REFERENCE LIMIT (URL) OF TROPONIN, DEFINED THE 99TH PERCENTILE OF cTnI DISTRIBUTION IN A REFERENCE POPULATION, HAS BEEN CONFIRMED THE DECISION THRESHOLD FOR MO DIAGNOSIS. Performed By: #### C MP, BNP, CMADM #### [facility] [address] [address] [address] Loyd Parks WM 121 ng/mL Critically high 16-96 [facility] Comment on above: Performed By: #### C MP, BNP, CMADM #### [facility] [address] [place] [address] Dr. Loyd Parks CBC AUTO DIFFon 07-27-2022 BASO # 0.1 103/ul Normal 0.0-0.1 [facility] Comment on above: Performed By: #### C BC #### [facility] [address] [address] [address] Loyd Parks Basophils/100 WBC (Bld) 0.6 % Normal 0.2-2.0 [facility] Comment on above: Performed By: #### C BC #### [facility] [address] [place] [address] Dr. Lody Parks EO # 0.5 103/ul Normal 0.0-0.7 [facility] Comment on above: Performed By: #### C BC #### [facility] [address] [place] [address] Dr. Loyd Parks Eosinophils/100 WBC (Bld) 4.8 % Normal 0.9-7.0 [facility] Comment on above: Performed By: #### C BC #### [facility] [address] [place] [address] Dr. Loyd Parks Erythrocyte distribution width (RBC) [Ratio] 13.5 % Normal 11.0-15.0 [facility] Comment on above: Performed By: #### C BC #### [facility] [address] [place] [address] Dr. Loyd Parks Hematocrit (Bld) [Volume fraction] 39.7 % Critically low 42.0-54.0 [facility] Comment on above: Performed By: #### C BC #### [facility] [address] [place] [address] Dr. Loyd Parks Hemoglobin (Bld) [Mass/Vol] 13.1 g/dL Critically low 14.0-18.0 [facility] Comment on above: Performed By: #### C BC #### [facility] [address] [address] [address] Loyd Parks IG # 0.05 10e3/ul Critically high 0.00-0.03 [facility] Comment on above: Performed By: #### C BC #### [facility] [address] [address] [address] Loyd Parks IG % 0.5 % Normal 0.0-0.5 [facility] Comment on above: Performed By: #### C BC #### [facility] [address] [place] [address] Dr. Loyd Parks LYMPH # 1.4 103/ul Normal 1.2-3.8 [facility] Comment on above: Performed By: #### C BC #### [facility] [address] [place] [address] Dr. Loyd Parks Lymphocytes/100 WBC (Bld) 14.1 % Critically low 20.5-60.0 [facility] Comment on above: Performed By: #### C BC #### [facility] [address] [place] [address] Dr. Loyd Parks MANUAL DIFF REQ NO Normal [facility] Comment on above: Performed By: #### C BC #### [facility] [address] [place] [address] Dr. Loyd Parks MCH (RBC) [Entitic mass] 31.6 pg Normal 25.9-34.0 [facility] Comment on above: Performed By: #### C BC #### [facility] [address] [place] [address] Dr. Loyd Parks MCHC (RBC) [Mass/Vol] 33.0 g/dL Normal 29.9-35.2 [facility] Comment on above: Performed By: #### C BC #### [facility] [address] [place] [address] Dr. Loyd Parks MCV (RBC) [Entitic vol] 95.7 fL Critically high 80.0-94.0 [facility] Comment on above: Performed By: #### C BC #### [facility] [id number] Loyd Parks MONO # 1.0 103/ul Critically high 0.3-0.8 [facility] Comment on above: Performed By: #### C BC #### [facility] [address] [place] [address] Dr. Loyd Parks Monocytes/100 WBC (Bld) 9.7 % Normal 1.7-12.0 [facility] Comment on above: Performed By: #### C BC #### [facility] [address] [place] [address] Dr. Loyd Parks NEUT # 7.2 103/ul Critically high 1.4-6.5 [facility] Comment on above: Performed By: #### C BC #### [facility] [address] [place] [address] Dr. Loyd Parks Neutrophils/100 WBC (Bld) 70.3 % Normal 43.0-75.0 [facility] Comment on above: Performed By: #### C BC #### [facility] [address] [place] [address] Dr. Loyd Parks Platelet mean volume (Bld) [Entitic vol] 10.8 fL Normal 9.5-13.5 [facility] Comment on above: Performed By: #### C BC #### [facility] [address] [place] [address] Dr. Loyd Parks PLT 199 103/ul Normal 150-450 [facility] Comment on above: Performed By: #### C BC #### [facility] [address] [place] [address] Dr. Loyd Parks RBC 4.15 106/ul Critically low 4.70-6.10 [facility] Comment on above: Performed By: #### C BC #### [facility] [address] [place] [address] Dr. Loyd Parks WBC 10.2 103/ul Normal 4.0-11.0 [facility] Comment on above: Performed By: #### C BC #### [facility] [address] [place] [address] Dr. Loyd Parks CULTURE BLOODon 07-27-2022 Microscopic examination of blood, culture Culture Observations: NO GROWTH AT 5 DAYS. Normal [facility] Comment on above: Performed By: #### E RUR #### [facility] [address] [place] [address] Dr. Loyd Parks [facility] SARS-CoV-2 (COVID-19) RNA SAUNDRA+probe Ql (Unsp spec) Not detected Normal NOT DETECTED [facility] Comment on above: Result Comment: This test is not yet approved or cleared by the [place] FDA. When there are no FDA-approved or cleared tests available, and other criteria are met, FDA can make tests available under an emergency access mechanism called an Emergency Use Authorization (EUA). The EUA for this test is supported by the Associate Media Director of Health and Human Service's (HHS's) declaration [...] SARS-CoV-2. Performed By: #### E RUR #### [facility] [address] [place] [address] Dr. Loyd Parks LACTATE/LACTIC ACIDon 2022 Lactate [Moles/Vol] 2.2 mmol/L Critically high 0.4-2.0 [facility] Comment on above: Performed By: #### C MP, BNP, CMADM #### [facility] [address] [place] [address] Dr. Loyd Parks PROF 14(COMP METB)on 023 Albumin [Mass/Vol] 3.3 g/dL Critically low 3.4-5.0 [facility] Comment on above: Performed By: #### C MP, BNP, CMADM #### [facility] [address] [address] [address] Loyd Parks Albumin/Globulin [Mass ratio] 0.9 {ratio} Normal [facility] Comment on above: Performed By: #### C MP, BNP, CMADM #### [facility] [address] [address] [address] Loyd Parks ALP [Catalytic activity/Vol] 91 U/L Normal 46-116 [facility] Comment on above: Performed By: #### C MP, BNP, CMADM #### [facility] [address] [address] [address] Loyd Parks ALT [Catalytic activity/Vol] 18 U/L Normal 16-63 [facility] Comment on above: Performed By: #### C MP, BNP, CMADM #### [facility] [address] [place] [address] Dr. Loyd Parks Anion gap [Moles/Vol] 12.2 mmol/L Normal [facility] Comment on above: Performed By: #### C MP, BNP, CMADM #### [facility] [address] [place] [address] Dr. Loyd Parks AST [Catalytic activity/Vol] 15 U/L Normal 15-37 [facility] Comment on above: Performed By: #### C MP, BNP, CMADM #### [facility] [address] [place] [address] Dr. Loyd Parks Bilirubin [Mass/Vol] 0.4 mg/dL Normal 0.2-1.0 [facility] Comment on above: Performed By: #### C MP, BNP, CMADM #### [facility] [address] [place] [address] Dr. Loyd Parks Calcium [Mass/Vol] 8.7 mg/dL Normal 8.5-10.1 [facility] Comment on above: Performed By: #### C MP, BNP, CMADM #### [facility] [address] [address] [address] Loyd Parks Chloride [Moles/Vol] 105 mmol/L Normal 98-107 [facility] Comment on above: Performed By: #### C MP, BNP, CMADM #### [facility] [address] [address] [address] Loyd Parks CO2 [Moles/Vol] 28.0 mmol/L Normal 21.0-32.0 [facility] Comment on above: Performed By: #### C MP, BNP, CMADM #### [facility] [address] [place] [address] Dr. Loyd Parks Creatinine [Mass/Vol] 2.25 mg/dL Critically high 0.70-1.30 [facility] Comment on above: Performed By: #### C MP, BNP, CMADM #### [facility] [address] [place] [address] Dr. Loyd Parks EGFR-AF SRI LANKAN 34 mL/min/1.73m2 Critically low >=60 [facility] Comment on above: Performed By: #### C MP, BNP, CMADM #### [facility] [address] [place] [address] Dr. Loyd Parks EGFR-NON AF SRI LANKAN 28 mL/min/1.73m2 Critically low >=60 [facility] Comment on above: Performed By: #### C MP, BNP, CMADM #### [facility] [address] [place] [address] Dr. Loyd Parks Globulin (S) [Mass/Vol] 3.8 g/dL Normal [facility] Comment on above: Performed By: #### C MP, BNP, CMADM #### [facility] [address] [place] [address] Dr. Loyd Parks Glucose [Mass/Vol] 88 mg/dL Normal 74-106 [facility] Comment on above: Performed By: #### C MP, BNP, CMADM #### [facility] [address] [place] [address] Dr. Loyd Parks Potassium [Moles/Vol] 4.2 mmol/L Normal 3.5-5.1 [facility] Comment on above: Performed By: #### C MP, BNP, CMADM #### [facility] [address] [place] [address] Dr. Loyd Parks Protein [Mass/Vol] 7.1 g/dL Normal 6.4-8.2 [facility] Comment on above: Performed By: #### C MP, BNP, CMADM #### [facility] [address] [address] [address] Loyd Parks Sodium [Moles/Vol] 141 mmol/L Normal 136-145 [facility] Comment on above: Performed By: #### C MP, BNP, CMADM #### [facility] [address] [address] [address] Loyd Parks Urea nitrogen [Mass/Vol] 36.0 mg/dL Critically high 7.0-18.0 [facility] Comment on above: Performed By: #### C MP, BNP, CMADM #### [facility] [address] [place] [address] Dr. Loyd Parks Urea nitrogen/Creatinine [Mass ratio] 16.0 mg/mg Normal [facility] Comment on above: Performed By: #### C MP, BNP, CMADM #### [facility] [address] [place] [address] Dr. Loyd Parks PROTIMEon 07-27-2022 INR Coag (PPP) [Relative time] 0.95 {INR} Normal [facility] Comment on above: Performed By: #### P T, PTT #### [facility] [address] [place] [address] Dr. Loyd Parks INR GUIDELINES SEE BELOW Normal [facility] Comment on above: Result Comment: MARIE RED INR: 2.0 - 3.0 CONDITIONS NOT LISTED BELOW 2.5 - 3.5 FOR PROSTHETIC HEART VALVE REPLACEMENT 2.5 - 3.5 RECURRENT THROMBOSIS Performed By: #### P T, PTT #### [facility] [address] [place] [address] Dr. Loyd Parks PT Coag (PPP) [Time] 10.1 s Normal 9.0-11.6 [facility] Comment on above: Performed By: #### P T, PTT #### [facility] [address] [place] [address] Dr. Loyd Parks PTTon 07-27-2022 aPTT Coag (Bld) [Time] 27.3 s Normal 22.3-36.2 [facility] Comment on above: Performed By: #### P T, PTT #### [facility] [address] [place] [address] Dr. Loyd Parks SYMPTOMATIC COVID-19 ANTIGEN on 07-27-2022 EUA Statement SEE BELOW Normal [facility] Comment on above: Result Comment: [...] sooner. Performed By: #### C VDAGS #### [facility] [address] [place] [address] Dr. Loyd Parks SARS-CoV-2 (COVID-19) RNA SAUNDRA+probe Ql (Unsp spec) Negative Normal NEGATIVE [facility] Comment on above: Performed By: #### C VDAGS #### [facility] [address] [address] [address] Loyd Parks XR CHEST 2 Von [...] ELIUD KAUR Date: 2022-07-26 22:19 Normal [facility] Provider Letteron 06-25-2022 Provider Letter (Inserted Image. Yasmeen ble to display) June 25, 20[address] MALONE [address] [place] [address] [place] NAT Ramírez 1940 Dear Mr. Malone [...] prompt attention to this matter. Please call [phone] as soon as able. Sincerely, [facility] [address], [place] [address] Normal [facility] POINT OF CARE GLUCOSEon 03-25 Glucose [Mass/Vol] 102 mg/dL Normal 74-106 [facility] Comment on above: Performed By: #### C MP, BNP, CMADM #### [facility] [address] [place] [address] Dr. Loyd Parks ER URINE PROFILEon 2 Bilirubin Ql (U) Negative Normal NEGATIVE [facility] Comment on above: Performed By: #### E RUR #### [facility] [address] [place] [address] Dr. Loyd Parks Clarity (U) CLEAR Normal CLEAR [facility] Comment on above: Performed By: #### E RUR #### [facility] [address] [place] [address] Dr. Loyd Parks Color (U) LT. YELLOW Normal YELLOW [facility] Comment on above: Performed By: #### E RUR #### [facility] [address] [place] [address] Dr. Loyd Parks ERUTHANG A micrscopic examination will be performed if indicated. Normal [facility] Comment on above: Performed By: #### E RUR #### [facility] [address] [place] [address] Dr. Loyd Parks Glucose Ql (U) 100 mg/dl Abnormal NEGATIVE [facility] Comment on above: Performed By: #### E RUR #### [facility] [address] [place] [address] Dr. Loyd Parks Hemoglobin Ql (U) Negative Normal NEGATIVE [facility] Comment on above: Performed By: #### E RUR #### [facility] [address] [place] [address] Dr. Loyd Parks Ketones Ql (U) Negative Normal NEGATIVE [facility] Comment on above: Performed By: #### E RUR #### [facility] [address] [place] [address] Dr. Loyd Parks LEUKOCYTES Negative Normal NEGATIVE [facility] Comment on above: Performed By: #### E RUR #### [facility] [address] [place] [address] Dr. Loyd Parks Nitrite Ql (U) Negative Normal NEGATIVE [facility] Comment on above: Performed By: #### E RUR #### [facility] [address] [place] [address] Dr. Loyd Parks pH (U) 5.5 [pH] Normal 5-9 [facility] Comment on above: Performed By: #### E RUR #### [facility] [address] [place] [address] Dr. Loyd Parks SPEC GRAVITY 1.015 Normal 1.005-<=1.025 [facility] Comment on above: Performed By: #### E RUR #### [facility] [address] [place] [address] Dr. Loyd Parks UA PROTEIN Negative Normal NEGATIVE/ TRACE [facility] Comment on above: Performed By: #### E RUR #### [facility] [address] [place] [address] Dr. Loyd Parks UR MICRO IND NOT INDICATED Normal [facility] Comment on above: Performed By: #### E RUR #### [facility] [address] [place] [address] Dr. Loyd Parks Urobilinogen Qn (U) 0.2 {Malcolm'U}/dL Normal 0.2 - 1. 0 [facility] Comment on above: Performed By: #### E RUR #### [facility] [address] [address] [address] Loyd Parks GROUP A STREP CULTUREon 02-21 S. pyogenes Ag Ql (Unsp spec) Culture Observations: NEGATIVE FOR GROUP A STREPTOCOCCUS. Normal [facility] Comment on above: Performed By: #### S SCRN, GRASTCX #### [facility] [address] [address] [address] Loyd Parks STREPT SCREENon 03-03-2022 STREP SCREEN A Negative Normal NEGATIVE [facility] Comment on above: Performed By: #### S SCRN, GRASTCX #### [facility] [address] [address] [address] Loyd Parks Covid-19 PCR ([facility])on SARS-CoV-2 (COVID-19) RNA SAUNDRA+probe Ql (Unsp spec) Not detected Normal NOT DETECTED [facility] Comment on above: Result Comment: This test is not yet approved or cleared by the [place] FDA. When there are no FDA-approved or cleared tests available, and other criteria are met, FDA can make tests available under an emergency access mechanism called an Emergency Use Authorization (EUA). The EUA for this test is supported by the Associate Media Director of Health and Human Service's (HHS's) declaration [...] By: #### C MP, BNP, CMADM #### [facility] [address] [address] [address] Loyd Parks POINT OF CARE GLUCOSEon 12-22 Glucose [Mass/Vol] 133 mg/dL Critically high 74-[address] [facility] Comment on above: Performed By: #### E RUR #### [facility] [address] [place], [place] [address] Dr. Loyd Parks POINT OF CARE GLUCOSEon 09-0 Glucose [Mass/Vol] 75 mg/dL Normal 74-106 [facility] Comment on above: Performed By: #### E RUR #### [facility] [address] [place], [place] [address] ABD/PELVIS WO CONon [...] SAURABH SINGH Date: 2021-09-03 08:35 Normal [facility] ER URINE PROFILEon 2 Bilirubin Ql (U) Negative Normal NEGATIVE [facility] Comment on above: Performed By: #### E RUR #### [facility] [address] [place] [address] Dr. Loyd Parks Clarity (U) CLEAR Normal CLEAR [facility] Comment on above: Performed By: #### E RUR #### [facility] [address] [place] [address] Dr. Loyd Parks Color (U) LT. YELLOW Normal YELLOW [facility] Comment on above: Performed By: #### E RUR #### [facility] [address] [place] [address] Dr. Loyd SNELLMaxine A micrscopic examination will be performed if indicated. Normal [facility] Comment on above: Performed By: #### E RUR #### [facility] [address] [place] [address] Dr. Loyd Parks Glucose Ql (U) >1000 Abnormal NEGATIVE [facility] Comment on above: Performed By: #### E RUR #### [facility] [address] [place] [address] Dr. Loyd Parks Hemoglobin Ql (U) Negative Normal NEGATIVE [facility] Comment on above: Performed By: #### E RUR #### [facility] [address] [address] [address] Loyd Parks Ketones Ql (U) Negative Normal NEGATIVE [facility] Comment on above: Performed By: #### E RUR #### [facility] [address] [place] [address] Dr. Loyd Parks LEUKOCYTES Negative Normal NEGATIVE [facility] Comment on above: Performed By: #### E RUR #### [facility] [address] [place] [address] Dr. Loyd Parks Nitrite Ql (U) Negative Normal NEGATIVE [facility] Comment on above: Performed By: #### E RUR #### [facility] [address] [place] [address] Dr. Loyd Parks pH (U) 6.0 [pH] Normal 5-9 [facility] Comment on above: Performed By: #### E RUR #### [facility] [address] [place] [address] Dr. Loyd Parks SPEC GRAVITY 1.010 Normal 1.005-<=1.025 [facility] Comment on above: Performed By: #### E RUR #### [facility] [address] [place] [address] Dr. Loyd Parks UA PROTEIN Negative Normal NEGATIVE/ TRACE [facility] Comment on above: Performed By: #### E RUR #### [facility] [address] [place] [address] Dr. Loyd Parks UR MICRO IND NOT INDICATED Normal [facility] Comment on above: Performed By: #### E RUR #### [facility] [address] [place] [address] Dr. Loyd Parks Urobilinogen Qn (U) 0.2 {Malcolm'U}/dL Normal 0.2 - 1. 0 [facility] Comment on above: Performed By: #### E RUR #### [facility] [address] [place] [address] Dr. Loyd Parks ALCOHOLon 07-31-2020 Ethanol [Mass/Vol] mg/dL Normal [facility] Comment on above: Result Comment: FOR MEDICAL USE ONLY. . REF VALUES <10 Performed By: #### A LC ####[facility] [place] [address] CBC AND DIFFERENTIALon 07-31 % AUTOMATED IMMATURE GRAN 0.4 % Normal 0.0 - 0.9 [facility] Comment on above: Result Comment: Rylie ture Granulocyte Count (IG) includes promyelocytes, myelocytes and metamyelocytes but does not include bands. Percent differential counts (%) should be interpreted in the context of the absolute cell counts (cells/L). Performed By: #### C BCDF #### [facility] [address] [place] [address] Basophils (Bld) [#/Vol] 0.05 10*3/uL Normal 0.00 - 0.10 [facility] Comment on above: Performed By: #### C BCDF #### [facility] [address] [place] [address] Basophils/100 WBC (Bld) 0.6 % Normal 0.0 - 2.0 [facility] Comment on above: Performed By: #### C BCDF #### [facility] [address] [place] [address] Eosinophils (Bld) [#/Vol] 0.21 10*3/uL Normal 0.00 - 0.40 [facility] Comment on above: Performed By: #### C BCDF #### [facility] [address] [place] [address] Eosinophils/100 WBC (Bld) 2.4 % Normal 0.0 - 6.0 [facility] Comment on above: Performed By: #### C BCDF #### [facility] [address] [place] [address] Erythrocyte distribution width (RBC) [Ratio] 13.2 % Normal 11.5 - 14.5 [facility] Comment on above: Performed By: #### C BCDF #### [facility] [address] [place] [address] Hematocrit (Bld) [Volume fraction] 50.0 % Normal 41.0 - 52.0 [facility] Comment on above: Performed By: #### C BCDF #### [facility] [address] [place] [address] Hemoglobin (Bld) [Mass/Vol] 17.3 g/dL Normal 13.5 - 17.5 [facility] Comment on above: Performed By: #### C BCDF #### [facility] [address] [address] [place] [address] Lymphocytes (Bld) [#/Vol] 1.59 10*3/uL Normal 0.80 - 3.00 [facility] Comment on above: Performed By: #### C BCDF #### [facility] [address] [facility] [place] [address] Lymphocytes/100 WBC (Bld) 17.9 % Normal 13.0 - 44.0 [facility] Comment on above: Performed By: #### C BCDF #### [facility] [address] [facility] [place] [address] MCHC (RBC) [Mass/Vol] 34.6 g/dL Normal 32.0 - 36.0 [facility] Comment on above: Performed By: #### C BCDF #### [facility] [address] [facility] [place] [address] MCV (RBC) [Entitic vol] 89 fL Normal 80 - 100 [facility] Comment on above: Performed By: #### C BCDF #### [facility] [address] [place] [address] Monocytes (Bld) [#/Vol] 0.82 10*3/uL High 0.05 - 0.80 [facility] Comment on above: Performed By: #### C BCDF #### [facility] [address] [facility] [place] [address] Monocytes/100 WBC (Bld) 9.2 % Normal 2.0 - 10.0 [facility] Comment on above: Performed By: #### C BCDF #### [facility] [address] [facility] [place] [address] Neutrophils (Bld) [#/Vol] 6.18 10*3/uL High 1.60 - 5.50 [facility] Comment on above: Performed By: #### C BCDF #### [facility] [address] [facility] [place] [address] Neutrophils/100 WBC (Bld) 69.5 % Normal 40.0 - 80.0 [facility] Comment on above: Performed By: #### C BCDF #### [facility] [address] [facility] [place] [address] Platelets (Bld) [#/Vol] 215 10*3/uL Normal 150 - 450 [facility] Comment on above: Performed By: #### C BCDF #### [facility] [address] [address] [place] [address] RBC 5.59 x10E12/L Normal 4.50 - 5.90 [facility] Comment on above: Performed By: #### C BCDF #### [facility] [address] [address] [place] [address] WBC (Bld) [#/Vol] 8.9 10*3/uL Normal 4.4 - 11.3 [facility] Comment on above: Performed By: #### C BCDF #### [facility] [address] [address] [place] [address] CHEST 1 VIEWon 07-31-2020 CHEST 1 VIEW STUDY: Chest Radiograph; 07/30/2020 10:53 PM INDICATION: Shortness of breath. COMPARISON: None available. ACCESSION NUMBER(S): [id number] ORDERING CLINICIAN: ZAID CUELLAR DO TECHNIQUE: Frontal chest was obtained at 2355 hours. FINDINGS: CARDIOMEDIASTINAL SILHOUETTE: Cardiomediastinal silhouette is normal in size and configuration. LUNGS: Lungs are clear. ABDOMEN: No remarkable upper abdominal findings. BONES: No acute osseous changes. IMPRESSION: No acute pulmonary abnormality. Signed by Rodrick Anna MD Electronically signed by: RODRICK ANNA MD Normal [facility] COMPREHENSIVE PANELon 2020 Albumin [Mass/Vol] 3.7 g/dL Normal 3.4 - 5.0 [facility] Comment on above: Performed By: #### C MP ####[facility] [place] [address] ALP [Catalytic activity/Vol] 80 U/L Normal 33 - 136 [facility] Comment on above: Performed By: #### C MP ####[facility] [place] [address] ALT [Catalytic activity/Vol] 12 U/L Normal 10 - 52 [facility] Comment on above: Result Comment: Jade ents treated with Sulfasalazine may generate falsely decreased results for ALT. Performed By: #### C MP ####[facility] [place] [address] Anion gap [Moles/Vol] 13 mmol/L Normal 10 - 20 [facility] Comment on above: Performed By: #### C MP ####[facility] [place] [address] AST [Catalytic activity/Vol] 12 U/L Normal 9 - 39 [facility] Comment on above: Performed By: #### C MP ####[facility] [place] [address] Bilirubin [Mass/Vol] 0.7 mg/dL Normal 0.0 - 1.2 [facility] Comment on above: Performed By: #### C MP ####[facility] [place] [address] Calcium [Mass/Vol] 9.2 mg/dL Normal 8.6 - 10.3 [facility] Comment on above: Performed By: #### C MP ####[facility] [place] [address] Chloride [Moles/Vol] 101 mmol/L Normal 98 - 107 [facility] Comment on above: Performed By: #### C MP ####[facility] [place] [address] Creatinine [Mass/Vol] 1.36 mg/dL High 0.50 - 1.30 [facility] Comment on above: Performed By: #### C MP ####[facility] [place] [address] GFR- AM. 61 mL/min/1.73m2 Normal >60 [facility] Comment on above: Result Comment: CALC ULATIONS OF ESTIMATED GFR ARE PERFORMED USING THE MDRD STUDY EQUATION FOR THE IDMS-TRACEABLE CREATININE METHODS. CLIN CHEM 2007;53:766-72 Performed By: #### C MP ####[facility] [facility] [place] [address] GFR-NON AM. 50 mL/min/1.73m2 Abnormal >60 [facility] Comment on above: Performed By: #### C MP ####[facility] [place] [place] [address] Glucose [Mass/Vol] 390 mg/dL High 74 - 99 [facility] Comment on above: Performed By: #### C MP ####[facility] [place] [address] HCO3 (Bld) [Moles/Vol] 27 mmol/L Normal 21 - 32 [facility] Comment on above: Performed By: #### C MP ####[facility] [place] [address] Potassium [Moles/Vol] 4.1 mmol/L Normal 3.5 - 5.3 [facility] Comment on above: Performed By: #### C MP ####[facility] [place] [address] Protein [Mass/Vol] 6.8 g/dL Normal 6.4 - 8.2 [facility] Comment on above: Performed By: #### C MP ####[facility] [place] [address] Sodium [Moles/Vol] 137 mmol/L Normal 136 - 145 [facility] Comment on above: Performed By: #### C MP ####[facility] [place] [address] Urea nitrogen [Mass/Vol] 27 mg/dL High 6 - 23 [facility] Comment on above: Performed By: #### C MP ####[facility] [place] [address] CT HEAD WO CONTRASTon 2020 CT HEAD WO CONTRAST STUDY: CT Head without IV Contrast; 07/30/2020, 11:52 PM. INDICATION: Confusion, disorientation. COMPARISON: None Available. ACCESSION NUMBER(S): [id number] ORDERING CLINICIAN: ZAID CUELLAR DO TECHNIQUE: Noncontrast [...] Electronically signed by: RODRICK ANNA MD Normal [facility] MAGNESIUMon 07-31-2020 Magnesium [Mass/Vol] 2.04 mg/dL Normal 1.60 - 2.40 [facility] Comment on above: Performed By: #### M G #### [facility] [address] [place] [address] PT/INRon 07-31-2020 PT Coag (PPP) [Time] 12.0 s Normal 10.1 - 13.3 [facility] Comment on above: Performed By: #### P TINR #### [facility] [address] [place] [address] PT, INR 1.0 Normal 0.9 - 1.1 [facility] Comment on above: Performed By: #### P TINR #### [facility] [address] [place] [address] Provider Note - ED v2on 07-22 Provider Note - ED v2 Provider Note - ED v2: Chart Review: ED NOTES ED NOTES: History: This is an 80-year-old male presenting from the [facility] for chief complaint of a medical evaluation. Patient left his home in [place] 3 days ago because he got into [...] From Triage - ED 30-Jul-2020 23:17 Normal [facility] Risk Screen - Adult Emergenc yon 07-31-2020 [...] instruction; written material Cultural Considerationsnone Developmental Considerationsnone Yazdanism Considerationsnone Learning Assessment (Other Learner): Learning Assessment (Other Learner): Other learner availableno Pressure Injury/TB/Substance: Pressure Injury: Do you have a coughno Substance Use Current or Former Historynever: Cigarette/Tobacco, e-Cigarette/Vaping, Alcohol, Street Drugs Admission Risk Screen: Significant IndicatorsComplete CAGE: CAGE: Is this an injured patient at a Trauma Center ([facility]/[place]/[facility]/[place]): no Electronic Signatures: Elizabeth Ivan (MIGUEL) (Signed 30-Jul-2020 23:24) Authored: Preferred Language, Advanced Directives, Family Violence Adult, Learning Assessment (Patient), Learning Assessment (Other Learner), Pressure Injury/TB/Substance, Pressure Injury, CAGE Last Updated: 30-Jul-2020 23:24 by Elizabeth Ivan (MIGUEL) Normal [facility] TROPONIN Ion 07-31-2020 Troponin I.cardiac [Mass/Vol] ng/mL Normal 0.00 - 0.03 [facility] Comment on above: Result Comment: LESS THAN [...] is performed using different testing methodology at [facility] than at other [facility] hospitals. Direct result comparisons should only be made within the same method. Performed By: #### T ROP2 #### [facility] [address] [address] [facility] [address] Triage - EDon 07-31-2020 Triage - ED [...] Arrival: stretcher Mode of Arrival: ambulance Agency: [facility] Agency Name: Monica Accompanied By: tile trimmer Language: Spoken Language Preferred: Slovak Reading Language Preferred: Slovak CHIEF COMPLAINT NAT MALONE is a Male patient with a chief complaint of altered mental status. Triage Date/Time: 30-Jul-2020 22:50 LAILA: 3 Pain Rating (0-10): 0 = None Vital Signs: Temperature: 96.8F ( 36.0C) taken temporal Blood Pressure: 166/103 Mean: Heart Rate: 94 Respiratory Rate: 18 Pulse Oximetry: 97% on room air, no respiratory support. Weight: 230.3 pounds. Calculated 104.5 kg. (stated) [place] Coma Scale: Best Eye Response: (E4) spontaneous Best Motor Response: (M6) obeys commands Best Verbal Response: (V5) oriented [place] Score: 15 Allergies: yes Patient has homicidal [...] 30-Jul-2020 23:23 by Elizabeth Ivan (RN) Normal [facility] UA MICROSCOPICon 07-31-2020 RBC 1 /HPF Normal 0-5 [facility] Comment on above: Performed By: #### U AMIC #### [facility] [address] [place] [address] SQUAMOUS EPITH. CELLS <1 Normal [facility] Comment on above: Performed By: #### U AMIC #### [facility] [address] [place] [address] WBC 22 /HPF Abnormal 0-5 [facility] Comment on above: Performed By: #### U AMIC #### [facility] [address] [place] [address] URINALYSISon 07-31-2020 Appearance (U) CLEAR Normal CLEAR [facility] Comment on above: Performed By: #### U A #### [facility] [address] [place] [address] Bilirubin Ql (U) Negative Normal NEGATIVE [facility] Comment on above: Performed By: #### U A #### [facility] [address] [place] [address] Color (U) STRAW Normal STRAW,YELLOW [facility] Comment on above: Performed By: #### U A #### [facility] [address] [place] [address] Glucose Ql (U) >=500(3+) Abnormal NEGATIVE [facility] Comment on above: Performed By: #### U A #### [facility] [address] [place] [address] Hemoglobin Ql (U) SMALL(1+) Abnormal NEGATIVE [facility] Comment on above: Performed By: #### U A #### [facility] [address] [facility] [place] [address] Ketones Ql (U) Negative Normal NEGATIVE [facility] Comment on above: Performed By: #### U A #### [facility] [address] [facility] [place] [address] Leukocyte esterase Test strip Ql (U) TRACE Abnormal NEGATIVE [facility] Comment on above: Performed By: #### U A #### [facility] [address] [facility] [place] [address] Nitrite Ql (U) Negative Normal NEGATIVE [facility] Comment on above: Performed By: #### U A #### [facility] [address] [facility] [place] [address] pH (U) 6.0 [pH] Normal 5.0 - 8.0 [facility] Comment on above: Performed By: #### U A #### [facility] [address] [place] [address] Protein Ql (U) 100(2+) Abnormal NEGATIVE [facility] Comment on above: Performed By: #### U A #### [facility] [address] [facility] [place] [address] Specific gravity (U) [Rel density] 1.025 Normal 1.005 - 1.035 [facility] Comment on above: Performed By: #### U A #### [facility] [address] [place] [address] Urobilinogen (U) [Mass/Vol] mg/dL Normal 0.0 - 1.9 [facility] Comment on above: Performed By: #### U A #### [facility] [address] [place] [address] Vital Signs Date Time Vital Sign Value Performing Clinician Dontae fuentes 09-16-2022 14:48-0400 Blood Pressure Location Umer RUFFIN [facility] 09-16-2022 14:48-0400 Diastolic blood pressure 74 mm[Hg] Umer RUFFIN [facility] 09-16-2022 14:48-0400 Heart rate 70 /min Umer RUFFIN [facility] 09-16-2022 14:48-0400 Respiratory rate 16 /min Umer RUFFIN [facility] 09-16-2022 14:48-0400 Systolic blood pressure 130 mm[Hg] Umer RUFFIN [facility] 04-26-2022 11:04-0500 Blood Pressure Location Umer RUFFIN [facility] 04-26-2022 11:04-0500 Diastolic blood pressure 78 mm[Hg] Umer RUFFIN [facility] 04-26-2022 11:04-0500 Heart rate 62 /min Umer RUFFIN [facility] 04-26-2022 11:04-0500 Respiratory rate 16 /min Umer RUFFIN [facility] 04-26-2022 11:04-0500 Systolic blood pressure 134 mm[Hg] Umer RUFFIN [facility] 12-03-2021 13:08-0400 Blood Pressure Location Umer RUFFIN [facility] 12-03-2021 13:08-0400 Diastolic blood pressure 70 mm[Hg] Umer RUFFIN [facility] 12-03-2021 13:08-0400 Heart rate 65 /min Umer RUFFIN [facility] 12-03-2021 13:08-0400 Respiratory rate 16 /min Umer RUFFIN [facility] 12-03-2021 13:08-0400 Systolic blood pressure 109 mm[Hg] Umer RUFFIN [facility] 09-03-2021 13:39-0400 Blood Pressure Location Umer [employer] [facility] 09-03-2021 13:39-0400 Diastolic blood pressure 67 mm[Hg] Umer RUFFIN [facility] 09-03-2021 13:39-0400 Heart rate 68 /min Umer RUFFIN [facility] 09-03-2021 13:39-0400 Respiratory rate 16 /min [employer] [facility] 09-03-2021 13:39-0400 Systolic blood pressure 102 mm[Hg] [employer]mer [employer] [facility] Encounters Encounter Date Encounter Type Care Provider Facility Start: 06-19-2023 End: 06-19-2023 ambulatory JUAN PABLO ALANIZ Not Available Start: 05-13-2023 End: 05-14-2023 ambulatory CAIT PINTO Facility:[facility] Start: 05-13-2023 End: 05-13-2023 Patient encounter procedure CAIT PINTO [facility] Start: 04-23-2023 End: 04-23-2023 ambulatory JUAN PABLO ALANIZ Not Available Start: 03-26-2023 End: 03-26-2023 ambulatory JUAN PABLO ALANIZ Not Available Start: 02-27-2023 End: 02-27-2023 ambulatory CHET Burr LORI Not Available Start: 12-18-2022 End: 12-19-2022 ambulatory CAIT PINTO Facility:[facility] Start: 09-16-2022 End: 09-17-2022 ambulatory Umer RUFFIN Facility:[facility] Start: 09-16-2022 End: 09-16-2022 Patient encounter procedure Umer RUFFIN [facility] Start: 07-26-2022 End: 07-27-[address] JUAN PABLO ALANIZ Facility:[facility] Start: 06-26-2022 End: 06-27-[address] JUAN PABLO ALANIZ Facility:[facility] Start: 05-23-2022 End: 05-24-[address] JUAN PABLO ALANIZ Facility:[facility] Start: 04-26-2022 End: 04-26-2022 Patient encounter procedure Umer RUFFIN [facility] Start: 04-22-2022 End: 04-23-[address] JUAN PABLO ALANIZ Facility:[facility] Start: 04-16-2022 End: 04-16-[address] JUAN PABLO ALANIZ Facility:[facility] Start: 04-08-2022 End: 04-08-2022 Patient encounter procedure Umer RUFFIN [facility] Start: 04-04-2022 ambulatory SHELLIE ROJAS . Facility:[facility] Start: 03-08-2022 End: 03-08-[address] JUAN PABLO ALANIZ Facility:[facility] Start: 03-04-2022 Encounter for preprocedural cardiovascular examination DR VINH HOLCOMB . [facility] Start: 03-04-2022 Encounter for preprocedural laboratory examination DR VINH HOLCOMB . [facility] Start: 03-03-2022 End: 03-03-[address] JUAN PABLO ALANIZ Facility:[facility] Start: 03-02-2022 Encounter for preprocedural cardiovascular examination DR VINH HOLCOMB . [facility] Start: 02-26-[address] VINH HOLCOMB . Faci lity:[facility] Start: 02-22-2022 End: 02-23-2022 Encounter for preprocedural cardiovascular examination DR VINH HOLCOMB . Facility:[facility] Start: 02-22-2022 End: 02-23-[address] VINH HOLCOMB . Facility:[facility] Start: 02-22-2022 End: 02-23-2022 Encounter for preprocedural laboratory examination DR VINH HOLCOMB . Facility:[facility] Start: 02-19-2022 End: 02-20-2022 ambulatory MANDIE Goodman [facility] Facility:[facility] Start: 02-04-[address] VINH HOLCOMB . Faci lity:[facility] Start: 01-22-2022 End: 01-23-[address] JUAN PABLO ALANIZ Facility:[facility] Start: 01-01-2022 End: 01-01-[address] VINH HOLCOMB . Facility:[facility] Start: 12-13-2021 End: 12-14-[address] VINH HOLCOMB . Facility:[facility] Start: 12-03-2021 End: 12-03-2021 Patient encounter procedure Umer RUFFIN [facility] Start: 11-29-2021 End: 11-30-2021 ambulatory MANDIE Goodman [facility] Facility:[facility] Start: 11-27-2021 End: 11-27-[address] VINH HOLCOMB . Facility:[facility] Start: 10-02-2021 End: 10-03-[address] VINH HOLCOMB . Facility:[facility] Start: 09-21-2021 End: 09-21-[address] SUJIT GR . Facility:[facility] Start: 09-19-2021 End: 09-20-2021 ambulatory [facility] [facility] Maxine [facility] Facility:H1 Start: 09-15-2021 End: 09-16-[address] SPARKLE NELSON Facility:H1 Start: 09-03-2021 End: 09-03-2021 Patient encounter procedure Umer RUFFIN [facility] Start: 09-03-2021 End: 09-03-[address] JUAN PABLO ALANIZ Facility:H1 Procedures Date Procedure Procedure Detail Performing Clinician Esophagogastroduodenoscopy Goldie RUFFIN Plan of Treatment Date Care Activity Detail Author Start: 08-22-2022 ambulatory Ambulatory Facility:H 1 Immunizations Immunization Date Immunization Notes Care Provider Fa liv 02-22-2022 influenza virus vacc ine, unspecified formulation Umre RUFFIN [facility] 12-21-2020 SARS-CoV-2 (COVID-19 ) mRNA BNT-162b2 vax Umer RUFFIN [facility] 11-30-2020 SARS-CoV-2 (COVID-19 ) mRNA BNT-162b5 vax Umer RUFFIN [facility] 01-24-2020 influenza virus vacc ine, unspecified formulation Umer RUFFIN [facility] 03-04-2019 influenza virus vacc ine, unspecified formulation Umer RUFFIN [facility] 08-05-2018 pneumococcal polysaccharide vaccine, 23 valent Umer RUFFIN [facility] 12-18-2016 influenza virus vacc ine, unspecified formulation Umer RUFFIN [facility] 12-06-2015 influenza virus vacc ine, unspecified formulation Umer RUFFIN [facility] 12-21-2014 influenza virus vacc ine, unspecified formulation Umer RUFFIN [facility] Payers Date Payer Category Payer Unknown [id number] 1961 Unknown [id number] 1940 Unknown [id number] 2.16.84 0.1.350912.3.579.2.593 1940 Unknown [id number] 2.16.84 0.1.998035.3.579.2.593 1940 Unknown [id number] 2.16.84 0.1.161857.3.579.2.593 1938 Unknown [id number] 2.16.84 0.1.801414.3.579.2.593 1938 Unknown [id number] 2.16.84 0.1.974112.3.579.2.593 1938 Unknown [id number] 2.16.84 0.1.214801.3.579.2.593 1938 Unknown [id number] 2.16.84 0.1.202070.3.579.2.593 1940 Unknown [id number] 2.16.84 0.1.565228.3.579.2.593 1938 Unknown [id number] 2.16.84 0.1.996821.3.579.2.593 1938 Unknown [id number] 2.16.84 0.1.690242.3.579.2.593 1938 Unknown [id number] 2.16.84 0.1.849239.3.579.2.593 1938 Unknown [id number] 2.16.84 0.1.784498.3.579.2.593 1938 Unknown [id number] 2.16.84 0.1.354455.3.579.2.593 1938 Unknown [id number] 2.16.84 0.1.395037.3.579.2.593 1938 Unknown [id number] 2.16.84 0.1.298157.3.579.2.593 1938 Unknown [id number] 2.16.84 0.1.877088.3.579.2.593 1938 Unknown [id number] 2.16.84 0.1.377003.3.579.2.593 1938 Unknown [id number] 2.16.84 0.1.694346.3.579.2.593 1938 Unknown [id number] 2.16.84 0.1.698406.3.579.2.593 1938 Unknown [id number] 2.16.84 0.1.901718.3.579.2.593 1938 Unknown [id number] 2.16.84 0.1.699236.3.579.2.593 1938 Unknown [id number] 2.16.84 0.1.429298.3.579.2.593 1938 Unknown [id number] 2.16.84 0.1.444785.3.579.2.593 1938 Unknown [id number] 2.16.84 0.1.778873.3.579.2.593 1938 Unknown [id number] 2.16.8 40.1.801721.3.579.2.727 1938 Unknown [id number] 2.16.8 40.1.607141.3.579.2.727 1938 Unknown [id number] 2.16.8 40.1.460429.3.579.2.727 1938 Unknown [id number] 2.16.84 0.1.138042.3.579.2.1259 1938 Unknown [id number] 2.16.84 0.1.700287.3.579.2.1259 1938 Unknown [id number] 2.16.840 .1.693066.3.579.2.1259 1938 Unknown [id number] 2.16.840 .1.259544.3.579.2.1259 Social History Date Type Detail Facility Start: 09-03-2021 Tobacco smoking status Ex-smoker (fi nding) [facility] Sex Assigned At Male [facility] Start: 04-26-2022 Tobacco smoking status Never s moked tobacco (finding) [facility] Tobacco smoking status Never [facility] Functional Status Date Assessment Result Facility 09-16-2022 Functional Status N/A [facility] 04-26-2022 Functional Status N/A [facility] 12-03-2021 Functional Status N/A [facility] 09-03-2021 Functional Status N/A [facility] Clinical Notes 09-03-2021 to 09-16-2022 Note Date [...] your health care provider. General instructions Take drrx-ede-vkosytg and prescription medicines only as told by [...] provider. Document Revised: 11/27/2020 Document Reviewed: 11/27/2020 [employer] Patient Education 2022 [employer]. Follow Up Care 04/26/2022 11:39:09 With:ERIK MENG, Umer Schultz, URL Address: [facility] [address] , [place] [address]- When: Unknown [facility] [place] 05-23-2022 Note CONSULTATION CONSULTATION DATE: 05/23/2022 [...] indicated. Patient agrees with this plan. [facility] 04-26-2022 Hospital Discharge instructions Patient Education [...] urethra. Follow these instructions at home: Take bena-slv-grsxqak and prescription medicines only as told by [...] Document Reviewed: 04/14/2017 Elsevier Patient Education 2020 [employer] Follow Up Care 04/08/2022 14:01:00 With:ERIK MENG, Umer Schultz, URL Address: [address] [place] [address]- When: Unknown [facility] 04-08-2022 Hospital Discharge instructions Patient Education 04/08/2022 [...] urethra. Follow these instructions at home: Take rvqx-fxt-tklqzjz and prescription medicines only as told by [...] 03/10/2006 Document Revised: 02/02/2019 Document Reviewed: 04/14/2017 [employer] Patient Education 2020 [employer]. Follow Up Care 12/03/2021 14:11:02 With:ERIK MENG, Umer Schultz, URL Address: [facility] [address] , [place] [address]- When: Unknown [facility] 01-22-2022 Note CONSULTATION CONSULTATION DATE: 01/22/2022 CHIEF [...] proceed. CC: Juan Pablo Alaniz M.D. 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 He does not use heat or ice to his back at this time. Current medications include gabapentin 200 mg t.i.d., nabumetone 750 mg b.i.d., [place] 5/325 t.i.d. Patient does use a walking [...] L3 and L4, L5. A refill for [place] 5/325 t.i.d. will be sent today. He will receive an oral U-Tox in the office today. Supportive measures such as stretching, a menthol heat rub and heat application to his back were discussed. I did recommend a Boost supplement daily. Patient will be followed up in the office post procedure and agrees to move forward. [facility] 12-03-2021 Hospital Discharge instructions Patient Education [...] urethra. Follow these instructions at home: Take qhke-upo-qsdbapq and prescription medicines only as told by [...] 03/10/2006 Document Revised: 02/02/2019 Document Reviewed: 04/14/2017 [employer] Patient Education 2020 [employer]. Follow Up Care 09/03/2021 14:17:23 With:ERIK MENG, Umer Schultz, EDDIEL Address: [facility] [address] , [place] [address]- [phone] When:04/04/2022 Comments:PVR [facility] [place] 10-02-2021 Note CONSULTATION PROCEDURE DATE: 10/02/2021 [...] he reports mitigation of his pain symptomatology. [facility] Signed and Approved by: DR VINH HOLCOMB . 10/09/2021 09:28:00 [facility] 10-02-2021 Note CONSULTATION CONSULTATION DATE: 10/02/2021 CHIEF [...] three times a day. We will re-prescribe [place] 5/325 t.i.d. which he had received from [...] to proceed. CC: Juan Pablo Alaniz M.D. [facility] Signed and Approved by: DR VINH HOLCOMB . 10/09/2021 09:28:00 [facility] 09-03-2021 Hospital Discharge instructions Patient Education 09/03/2021 [...] 03/10/2006 Document Revised: 11/27/2018 Document Reviewed: 02/07/2017 [employer] Patient Education 2020 [employer]. 09/03/2021 13:53:06 Benign Prostatic Hyperplasia Benign Prostatic [...] urethra. Follow these instructions at home: Take oxpv-ryb-qlobmya and prescription medicines only as told by [...] 03/10/2006 Document Revised: 02/02/2019 Document Reviewed: 04/14/2017 [employer] Patient Education 2019 [employer]. Follow Up Care 07/03/2021 15:21:16 With:Umer RUFFIN MD, URL Address: [facility] [address], [place] [phone] When:Within 3 Month(s) Comments:f/u in 3 months with PVR scan [facility] Evaluation + Plan note Future Appointments Appointment Date:12/03/2021 01:15:00 PM Scheduled Provider:Umer RUFFIN MD Location:[facility] Appointment Type:URO Office Visit [facility] Evaluation + Plan note Future Appointments Appointment Date:04/08/2022 12:45:00 PM Scheduled Provider:Umer RUFFIN MD Location:[facility] Appointment Type:URO Office Visit [facility] Evaluation + Plan note Future Appointments Appointment Date:04/26/2022 10:15:00 AM Scheduled Provider:[facility]mer [facility]FFIN [facility] Type[facility] Office Visit [facility] Evaluation + Plan note Future Appointments Appointment Date:07/22/2022 08:45:00 AM Scheduled Provider:Umer RUFFIN [facility] Type:[facility] Office Visit [facility] Evaluation + Plan note Future Appointments Appointment Date:12/20/2022 08:30:00 AM Scheduled Provider:Umer RUFFIN MD Location:[facility] Appointment Type:URO Office Visit [facility] Hospital course Narrative No data available for this section [facility] Hospital Discharge instructions No data available for this section [facility] Progress note No data available for this section [facility] Summary Purpose Family History No Family History [...] section and content) DATE CREATED AUTHOR 11/14/2020 [facility] DATE CREATED AUTHOR AUTHOR'S ORGANIZ ATION [facility]/02/20[facility] DATE CREATED AUTHOR AUTHOR'S ORGANIZ ATION 05/20/2023 [facility] Center DATE CREATED AUTHOR AUTHOR'S ORGANIZ ATION 06/20/2023 [facility] Special[facility] EPIC Care Team (unrecognized sect ion and content) Personnel Name: JUAN PABLO ALANIZ MD Address: [address] [place] [address] Personnel Name: JUAN PABLO ALANIZ MD Address: [address] [place] [address] Personnel Name: JUAN PABLO ALANIZ MD Address: Address: [address] [place] [address] Personnel Name: JUAN PABLO ALANIZ MD Address: Address: [address] [place] [address] Personnel Name: JUAN PABLO ALANIZ MD Address: Address: [address] [place] [address] Personnel Name: JUAN PABLO ALANIZ MD Address: Address: [address] [place] [address] FOR RECORDS PERTAINING TO PATIENTS WHO ARE [...] BE BASED ON THE PRIMARY CLINICAL RECORDS. [facility] [employer] [facility]. provides no warranty or guarantee of the accuracy or completeness of information in this document.
[2023-07-26 13:25] VITALS: BP 181/81; PULSE 57; TEMP 36.6; O2SAT 97
--- NOTE | 2023-07-26 14:52 | PM.HP ---
HPI H&P: HPI History of Present Illness Chief complaint: confusion, ALTERED MENTAL STATUS Narrative: HPI and Hospital Course 83 y o male with hx of dementia was brought over by EMS for change in mental status. He was admitted for observation. W/u in ED was unremarkable with no metabolic or infectious etiology noted on work up except for sinusitis noted on CTH. He apparently believed that his old boss wanted him to return to work and this was not true. His and daughter were present during exam and his said that patient is experiencing depressive symptoms. Denies SI/HI. Patient still drives and manages bills and bank accounts. He seemed to be at his baseline and had no active complaints to offer. I feel he is medically stable for discharge and does not require inpatient w/u and can be followed up as outpatient by his PCP who he has has an appt with in 3 days Opioid HPI Opioid Management Most Recent Opioid Data: Last Pain Scale 3 04/26/23 06:44 Ur Phencyclidine Scrn Negative (NEGATIVE) 07/26/23 08:10 Review of Systems ROS Status of ROS 10 or more systems reviewed and unremarkable except as noted in history and below PFSH PFSH Medical History (Updated 07/26/23 @ 14:58 by Shaikh Maritza MD) Dementia ?F03.90 - Unspecified dementia, unspecified severity, without behavioral disturbance, psychotic disturbance, mood disturbance, and anxiety (ICD-10) Depression ?F32.A - Depression, unspecified (ICD-10) Hyperuricemia ?E79.0 - Hyperuricemia without signs of inflammatory arthritis and tophaceous disease (ICD-10) HLD (hyperlipidemia) ?E78.5 - Hyperlipidemia, unspecified (ICD-10) Type 2 diabetes mellitus ?E11.9 - Type 2 diabetes mellitus without complications (ICD-10) HTN (hypertension) ?I10 - Essential (primary) hypertension (ICD-10) Social History (Updated 07/26/23 @ 14:57 by Shaikh Maritza MD) Within the past year, how often did you have a drink containing alcohol: never Within the past year, how many standard drinks containing alcohol did you have on a typical day: 1 or 2 Within the past year, how often did you have six or more drinks on one occasion: never Total score: 0 Score interpretation: A score less than 4 is consistent with normal alcohol consumption. Smoking status: Never smoker Non-prescribed substance use: denies use Meds Home Medications and Allergies Home Medications ?Medication ?Instructions ?Recorded ?Confirmed ?Type allopurinol 300 mg tablet 300 mg PO DAILY 07/26/23 07/26/23 History candesartan 32 1 tab PO DAILY 07/26/23 07/26/23 History mg-hydrochlorothiazide 25 mg tablet docusate sodium 100 mg capsule 100 mg PO DAILY PRN constipation 07/26/23 07/26/23 History donepezil 10 mg tablet 10 mg PO BEDTIME 07/26/23 07/26/23 History fluoxetine 20 mg capsule 20 mg PO DAILY 07/26/23 07/26/23 History furosemide 20 mg tablet 20 mg PO DAILY PRN edema 07/26/23 07/26/23 History gabapentin 100 mg capsule 200 mg PO TID 07/26/23 07/26/23 History glipizide 10 mg tablet 10 mg PO BID 07/26/23 07/26/23 History lidocaine 5 % topical patch 1 patch topical Q24H 07/26/23 07/26/23 History meloxicam 15 mg tablet 15 mg PO BEDTIME 07/26/23 07/26/23 History methocarbamol 500 mg tablet 500 mg PO BEDTIME 07/26/23 07/26/23 History omeprazole 40 mg capsule,delayed 40 mg PO DAILY 07/26/23 07/26/23 History release solifenacin 10 mg tablet 10 mg PO DAILY 07/26/23 07/26/23 History tamsulosin 0.4 mg capsule 0.4 mg PO DAILY 07/26/23 07/26/23 History Allergies Allergy/AdvReac Type Severity Reaction Status Date / Time Penicillins Allergy Intermediate Verified 07/26/23 06:38 Exam Constitutional Vital Signs, click to edit/add: Last Vital Signs Temp 97.9 F 07/26/23 13:25 Pulse 57 L 07/26/23 13:25 Resp 18 07/26/23 13:25 BP 181/81 H 07/26/23 13:25 Pulse Ox 97 07/26/23 13:25 O2 Del Method Room Air 07/26/23 13:25 Documenting provider has reviewed patient's vital signs: yes Common normals: no apparent distress and oriented x3 General appearance: cooperative HENMT Common normals: normocephalic and head/scalp atraumatic Head and scalp: normocephalic and atraumatic Eye Common normals: conjunctivae normal and no scleral icterus Conjunctiva: conjunctiva(e) normal Respiratory Common normals: normal respiratory effort and clear to auscultation bilaterally Effort & inspection: able to speak in complete sentences Auscultation: clear to auscultation bilaterally Cardio Common normals: regular rate, S1 normal heart sound and S2 normal heart sound Rate: regular rate Heart sounds: S1 normal and S2 normal GI Common normals: Normal to inspection, nondistended, normoactive bowel sounds present, soft to palpation, non-tender and no hepatosplenomegaly Palpation: soft and no hepatosplenomegaly Extremity Common normals: no clubbing, cyanosis or edema Neuro Common normals: oriented x3, moves all extremities and no focal motor deficits Psych Common normals: mental status grossly normal, denies hallucinations, denies homicidal ideation and denies suicidal ideation Results Labs Labs: Short CBC 07/26/23 Range/Units 07:03 WBC 8.6 (4.0-11.0) 10^3/uL Hgb 12.4 L (14.0-18.0) g/dL Hct 37.9 L (42.0-54.0) % Plt Count 176 (150-450) 10^3/uL BMP 07/26/23 07:03 Sodium 142 Potassium 4.2 Chloride 106 Carbon Dioxide 29.9 BUN 41.0 H Creatinine 1.96 H Glucose 139 H Calcium 8.5 Urine 07/26/23 Range/Units 08:10 Urine Color Lt. yellow (YELLOW) Urine Clarity Clear (CLEAR) Urine pH 6.0 (5.0-9.0) Ur Specific [place] 1.015 (1.005-1.025) Urine Protein Trace (NEG/TRACE) mg/dL Urine Glucose (UA) Negative (NEGATIVE) mg/dL Assessment and Plan Assessment and Plan (1) Delirium: Assessment and Plan: Acute confusional state - resolved. Likely due to dementia. No reversible metabolic/infectious etiology noted. No active complaints to offer. Work up unremarkable except for ethmoid sinusitis. Will call in PO azithromycin (2) Dementia: Assessment and Plan: Dementia with depression and behavioral disturbances. 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 Will need adjustment in his meds. 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 Defer to PCP Qualifiers: Hyperlipidemia type: unspecified Qualified Code(s): E78.5 - Hyperlipidemia, unspecified Plan Stable for discharge. No medical reason to require inpatient work up or treatment. Patient will follow up with PCP next week. Will treat for sinusitis with oral azithromycin. Normal CTH otherwise. Normal CXR and UA
== END 2023-07-26 15:54 | disposition home or self-care (01) ==
LOC: ER 11:49 → MS 13:19
PROVIDERS: Emergency Medicine; Admitting Provider Internal Medicine; Emergency Provider Student in an Organized Health Care Education/Training Program; PCP Internal Medicine; Visit Provider Internal Medicine
DX: R41.0 Disorientation, unspecified (principal); G30.1 Alzheimer's disease with late onset; F02.A3 Dementia in other diseases classified elsewhere, mild, with mood disturbance; E11.9 Type 2 diabetes mellitus without complications; I10 Essential (primary) hypertension; F32.A Depression, unspecified; E78.5 Hyperlipidemia, unspecified; J32.2 Chronic ethmoidal sinusitis; Z79.899 Other long term (current) drug therapy; Z79.4 Long term (current) use of insulin
CPT/HCPCS: 36415; 70450; 71045; 80048; 80307; 80320; 81001; 85025; 93005; 96372; 99285; G0378

== ENCOUNTER 2023-10-06 13:29 | Observation (INO) | payer MEDICARE, SELFPAY ==
[2023-10-06] VITALS (13 sets, daily range): BP systolic 108–150; BP diastolic 57–95; PULSE 60–74; TEMP 36.4–36.6; O2SAT 94–97; BMI 33.0; BMI 38.5
--- NOTE | 2023-10-06 13:43 | ECG_ITS ---
The [facility] Test Date: 2023-10-06 Pat Name: NAT MOORE Department: Room: - Gender: Male Search Lead: : 1940 Requested By: JASON CRUZ Order Number: [id number] Reading MD: GUY KAPOOR Measurements Intervals [place] Rate: 69 P: 30 SD: 250 QRS: -51 QRSD: 98 T: 30 QT: 400 QTc: 419 Interpretive Statements 1100 Sinus rhythm 2231 First degree AV block 3634 Inferior myocardial infarction, age undetermined 8102 Low QRS voltage in chest leads 9150 abnormal ECG Compared to ECG 07/26/2023 06:34:59 No significant changes Electronically Signed On 10-07-2023 5:25:12 EDT by GUY KAPOOR
--- NOTE | 2023-10-06 13:43 | XR_ITS ---
The [address] [address] Patient Name: NAT MOORE MRN: [id number] date: 1940 Sex: M Assigned Patient Location: ER Current Patient Location: ER Accession/Order Number: [id number] Exam Date: 10/06/2023 13:58 Report Date: 10/06/2023 14:24 At the request of: DANNY VIDAL Procedure: XR chest 1V EXAM: XR chest 1V HISTORY: AMS COMPARISON: 07/26/2023 TECHNIQUE: AP portable FINDINGS: LUNGS: Low lung volumes. The lungs are clear VASCULATURE: No increased pulmonary vasculature. PLEURA: No pneumothorax, effusion, or pleural thickening. CARDIAC: No cardiomegaly or cardiac silhouette abnormality. MEDIASTINUM: No visible mass or adenopathy. BONES: No fracture or visible bone lesion. OTHER: Negative. XR/XR chest 1V IMPRESSION: Low volume exam, grossly clear lungs Electronically authenticated by: ELIUD PIERSON Date: 10/06/2023 14:24
--- NOTE | 2023-10-06 13:44 | CT_ITS ---
[address] [address] Patient Name: NAT MOORE MRN: [facility]:[id number] date: 1940 Sex: M Assigned Patient Location: ER Current Patient Location: .[facility] Accession/Order Number: [id number] Exam Date: 10/06/2023 14:02 Report Date: 10/06/2023 14:48 At the request of: DANNY VIDAL Procedure: CT stroke head/brain wo con EXAM: CT stroke head/brain wo con, CT facial bones wo con, CT cervical spine wo con HISTORY: Altered Mental Status COMPARISON: None available at the time of dictation. TECHNIQUE: Axial unenhanced CT images were obtained through the brain. Individualized dose optimization technique was used for the performed procedure by employing the following: Automated exposure control, adjustment of the mA and/or kV according to patient's size, and/or the use of the iterative construction technique. Coronal and sagittal reformats were performed. Noncontrast CT images of the facial bones and cervical spine were obtained. FINDINGS: No acute intracranial abnormality. No acute infarct, hemorrhage or mass. Moderate cerebral volume loss. 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 Mild cerebral volume loss. No acute osseous abnormality. Mucosal thickening of the bilateral maxillary sinuses. Mucosal thickening of the ethmoid air cells. Mild mucosal thickening of the sphenoid sinus. Mastoid air cells are open. Orbits are normal. No acute fracture of the facial bones. CERVICAL SPINE: Moderate to advanced degeneration at the atlantodental interval. Moderate to advanced degeneration at C4-C5, C5-C6 and C6-C7 disc spaces. Mild posterior disc ossific complex at C4-C5, C5-C6 and C6-C7. Thyroid gland is normal. CT/CT stroke head/brain wo con IMPRESSION: 1. No acute intracranial abnormality. No acute intracranial infarct visualized by this modality. (MRI is more sensitive). No acute intracranial hemorrhage 2. No acute fractures of the facial bones. 3. No acute fracture of the cervical spine. Electronically authenticated by: JOAO DIALLO Date: 10/06/2023 14:48
--- NOTE | 2023-10-06 13:45 | CT_ITS ---
[address] [address] Patient Name: NAT MOORE MRN: [id number] date: 1940 Sex: M Assigned Patient Location: ER Current Patient Location: .[facility] Accession/Order Number: [id number] Exam Date: 10/06/2023 14:02 Report Date: 10/06/2023 14:48 At the request of: DANNY VIDAL Procedure: CT facial bones wo con EXAM: CT stroke head/brain wo con, CT facial bones wo con, CT cervical spine wo con HISTORY: Altered Mental Status COMPARISON: None available at the time of dictation. TECHNIQUE: Axial unenhanced CT images were obtained through the brain. Individualized dose optimization technique was used for the performed procedure by employing the following: Automated exposure control, adjustment of the mA and/or kV according to patient's size, and/or the use of the iterative construction technique. Coronal and sagittal reformats were performed. Noncontrast CT images of the facial bones and cervical spine were obtained. FINDINGS: No acute intracranial abnormality. No acute infarct, hemorrhage or mass. Moderate cerebral volume loss. 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 Mild cerebral volume loss. No acute osseous abnormality. Mucosal thickening of the bilateral maxillary sinuses. Mucosal thickening of the ethmoid air cells. Mild mucosal thickening of the sphenoid sinus. Mastoid air cells are open. Orbits are normal. No acute fracture of the facial bones. CERVICAL SPINE: Moderate to advanced degeneration at the atlantodental interval. Moderate to advanced degeneration at C4-C5, C5-C6 and C6-C7 disc spaces. Mild posterior disc ossific complex at C4-C5, C5-C6 and C6-C7. Thyroid gland is normal. CT/CT facial bones wo con IMPRESSION: 1. No acute intracranial abnormality. No acute intracranial infarct visualized by this modality. (MRI is more sensitive). No acute intracranial hemorrhage 2. No acute fractures of the facial bones. 3. No acute fracture of the cervical spine. Electronically authenticated by: JOAO DIALLO Date: 10/06/2023 14:48
--- NOTE | 2023-10-06 13:45 | CT_ITS ---
[address] [address] Patient Name: NAT MOORE MRN: [id number] date: 1940 Sex: M Assigned Patient Location: ER Current Patient Location: .[facility] Accession/Order Number: [id number] Exam Date: 10/06/2023 14:02 Report Date: 10/06/2023 14:48 At the request of: DANNY VIDAL Procedure: CT cervical spine wo con EXAM: CT stroke head/brain wo con, CT facial bones wo con, CT cervical spine wo con HISTORY: Altered Mental Status COMPARISON: None available at the time of dictation. TECHNIQUE: Axial unenhanced CT images were obtained through the brain. Individualized dose optimization technique was used for the performed procedure by employing the following: Automated exposure control, adjustment of the mA and/or kV according to patient's size, and/or the use of the iterative construction technique. Coronal and sagittal reformats were performed. Noncontrast CT images of the facial bones and cervical spine were obtained. FINDINGS: No acute intracranial abnormality. No acute infarct, hemorrhage or mass. Moderate cerebral volume loss. 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 Mild cerebral volume loss. No acute osseous abnormality. Mucosal thickening of the bilateral maxillary sinuses. Mucosal thickening of the ethmoid air cells. Mild mucosal thickening of the sphenoid sinus. Mastoid air cells are open. Orbits are normal. No acute fracture of the facial bones. CERVICAL SPINE: Moderate to advanced degeneration at the atlantodental interval. Moderate to advanced degeneration at C4-C5, C5-C6 and C6-C7 disc spaces. Mild posterior disc ossific complex at C4-C5, C5-C6 and C6-C7. Thyroid gland is normal. CT/CT cervical spine wo con IMPRESSION: 1. No acute intracranial abnormality. No acute intracranial infarct visualized by this modality. (MRI is more sensitive). No acute intracranial hemorrhage 2. No acute fractures of the facial bones. 3. No acute fracture of the cervical spine. Electronically authenticated by: JOAO DIALLO Date: 10/06/2023 14:48
--- NOTE | 2023-10-06 13:45 | CT_ITS ---
[address] [address] Patient Name: NAT MOORE MRN: [id number] date: 1940 Sex: M Assigned Patient Location: ER Current Patient Location: ED.MAIN Accession/Order Number: [id number] Exam Date: 10/06/2023 14:15 Report Date: 10/06/2023 14:57 At the request of: DANNY VIDAL Procedure: CT abdomen pelvis w con EXAMINATION: CT abdomen pelvis w con HISTORY: AMS, Pain, Vomiting COMPARISON: 09/03/2021 TECHNIQUE: CT images were created with IV contrast. Axial, Coronal, and Sagittal images. Dose reduction techniques were achieved by using automated exposure control and/or adjustment of mA and/or kV according to patient size and/or use of iterative reconstruction technique. FINDINGS: LUNG BASES: No visible pulmonary or pleural disease. LIVER: No enlargement, atrophy, abnormal density, or significant focal lesion. BILIARY: Minimal gallbladder sludge/cholelithiasis without evidence of acute cholecystitis PANCREAS: Diffuse pancreatic atrophy SPLEEN: No enlargement or focal lesion. ADRENALS: No mass or enlargement. KIDNEYS: Bilateral renal cortical atrophy.] Renal cortical cyst. No hydronephrosis or obstructing nephrolithiasis BOWEL/MESENTERY: Moderate colonic diverticulosis. Nonobstructive bowel gas pattern. Normal appendix AORTA/VASCULAR: No aortic aneurysm. Moderate calcific atherosclerosis RETROPERITONEUM: No mass or adenopathy. LYMPH NODES: No adenopathy. URINARY BLADDER: No visible focal wall thickening, lesion, or calculus. PELVIC ORGANS: Mildly prominent prostate gland ABDOMINAL WALL: No mass or hernia. BONES: No bony lesion or fracture. OTHER: Negative. CT/CT abdomen pelvis w con IMPRESSION: No acute intraperitoneal abnormality Electronically authenticated by: ELIUD PIERSON Date: 10/06/2023 14:57
[2023-10-06 13:51] LABS: Glucometer 258 mg/dL (74-106)
[2023-10-06 13:58] LABS: Basophils Percent Auto 0.2 % (0.2-2.0); Eosinophils Percent Auto 0.1 % (0.9-7.0); Hematocrit 37.3 % (42.0-54.0); Hemoglobin 12.7 g/dL (14.0-18.0); Immature Granulocytes Abs Auto 0.03 10^3/uL (0.00-0.03); Immature Granulocytes Pct Auto 0.3 % (0.0-0.5); Lymphocytes Absolute Auto 0.9 10^3/uL (1.2-3.8); Lymphocytes Percent Auto 8.3 % (20.5-60.0); Mean Corpuscular Hemoglobin 32.5 pg (25.9-34.0); Mean Corpuscular Volume 95.4 fL (80.0-94.0); Mean Platelet Volume 11.7 fL (9.5-13.5); Monocytes Absolute Auto 0.6 10^3/uL (0.3-0.8); Monocytes Percent Auto 5.4 % (1.7-12.0); Neutrophils Absolute Auto 8.8 10^3/uL (1.4-6.5); Neutrophils Percent Auto 85.7 % (43.0-75.0); Platelet Count 168 10^3/uL (150-450); Red Blood Count 3.91 10^6/uL (4.70-6.10); Red Cell Distribution Width 13.7 % (11.0-15.0); White Blood Count 10.3 10^3/uL (4.0-11.0)
[2023-10-06 14:19] LABS: INR 1.03; Prothrombin Time 10.9 sec (9.0-11.6)
[2023-10-06 14:24] LABS: Alanine Aminotransferase 16 U/L (16-63); Albumin Globulin Ratio 0.9; Albumin Level 3.2 g/dL (3.4-5.0); Alkaline Phosphatase 87 U/L (46-116); Anion Gap 12.4; Aspartate Amino Transferase 13 U/L (15-37); BUN Creatinine Ratio 23.8; Bilirubin Total 0.7 mg/dL (0.2-1.0); Calcium 8.8 mg/dL (8.5-10.1); Carbon Dioxide 25.5 mmol/L (21.0-32.0); Chloride 105 mmol/L (98-107); Estimated GFR (African America 37 (>=60); Estimated GFR (Non-African Ame 30 (>=60); Ethanol <3 mg/dL; Globulin 3.4 g/dL; Glucose 254 mg/dL (74-106); Potassium 3.9 mmol/L (3.5-5.1); Sodium 139 mmol/L (136-145); Total Protein 6.6 g/dL (6.4-8.2); Troponin I High Sensitivity 7.3 pg/mL (4.0-76.1)
[2023-10-06 14:47] LABS: Lactate/Lactic Acid 2.7 mmol/L (0.4-2.0)
[2023-10-06 15:43] LABS: Bilirubin Urine NEGATIVE (NEGATIVE); Blood Urine TRACE-I (NEGATIVE); Clarity Urine CLEAR (CLEAR); Color Urine LT. YELLOW (YELLOW); Glucose Urine UA NEGATIVE (NEGATIVE); Ketones Urine NEGATIVE (NEGATIVE); Leukocyte Esterase Urine NEGATIVE (NEGATIVE); Nitrite Urine NEGATIVE (NEGATIVE); Protein Urine NEGATIVE (NEG/TRACE); Urobilinogen Urine 0.2 EU/dL (0.2-1.0); pH Urine 5.5 (5.0-9.0)
[2023-10-06 15:46] LABS: Urine Microscopic Indicated NO
[2023-10-06] MEDS: 0.9 % SODIUM CHLORIDE 1,000 ML 100 ML IV (17:08)
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
[2023-10-06 17:39] LABS: Lactate/Lactic Acid 2.1 mmol/L (0.4-2.0)
--- NOTE | 2023-10-06 18:18 | PC.NURSE ---
1745 dr wray made aware of admission and need for orders. pts at bedside, pt confused, poor historian. pts does not drive and does not have a ride home. bed alarm activated. meals at bedside.
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
[2023-10-06 19:12] LABS: Basophils Percent Auto 0.3 % (0.2-2.0); Eosinophils Percent Auto 0.2 % (0.9-7.0); Hematocrit 38.8 % (42.0-54.0); Hemoglobin 12.7 g/dL (14.0-18.0); Immature Granulocytes Abs Auto 0.03 10^3/uL (0.00-0.03); Immature Granulocytes Pct Auto 0.3 % (0.0-0.5); Lymphocytes Absolute Auto 1.2 10^3/uL (1.2-3.8); Lymphocytes Percent Auto 11.8 % (20.5-60.0); Mean Corpuscular HGB Conc 32.7 g/dL (29.9-35.2); Mean Corpuscular Hemoglobin 31.6 pg (25.9-34.0); Mean Corpuscular Volume 96.5 fL (80.0-94.0); Mean Platelet Volume 11.4 fL (9.5-13.5); Monocytes Absolute Auto 0.7 10^3/uL (0.3-0.8); Monocytes Percent Auto 6.6 % (1.7-12.0); Neutrophils Absolute Auto 8.1 10^3/uL (1.4-6.5); Neutrophils Percent Auto 80.8 % (43.0-75.0); Platelet Count 166 10^3/uL (150-450); Red Blood Count 4.02 10^6/uL (4.70-6.10); Red Cell Distribution Width 13.8 % (11.0-15.0)
[2023-10-06 19:25] LABS: ABG PCO2 43.5 mmHg (35.0-45.0); PO2 ABG 75.8 mmHg (80.0-100.0); pH ABG 7.384 (7.350-7.450)
[2023-10-06 19:26] LABS: Allen Test POSITIVE (POSITIVE); Base Excess ABG 0.9 mmol/L (-2.0-2.0); Oxygen Saturation ABG 94.7 %
[2023-10-06 19:27] LABS: O2 Mode ROOM AIR; Puncture Site RR
[2023-10-06 19:33] LABS: Alanine Aminotransferase 17 U/L (16-63); Albumin Globulin Ratio 0.9; Albumin Level 3.2 g/dL (3.4-5.0); Alkaline Phosphatase 86 U/L (46-116); Aspartate Amino Transferase 12 U/L (15-37); BUN Creatinine Ratio 23.7; Bilirubin Total 0.6 mg/dL (0.2-1.0); Calcium 8.7 mg/dL (8.5-10.1); Chloride 104 mmol/L (98-107); Estimated GFR (African America 37 (>=60); Estimated GFR (Non-African Ame 31 (>=60); Globulin 3.5 g/dL; Glucose 208 mg/dL (74-106); Sodium 139 mmol/L (136-145); Total Protein 6.7 g/dL (6.4-8.2)
[2023-10-06 19:39] LABS: Amylase 82 U/L (25-115)
[2023-10-06 19:47] LABS: Glucometer 245 mg/dL (74-106)
[2023-10-06] MEDS: LACTATED RINGER'S SOLUTION 1,000 ML 100 ML IV (22:05)
[2023-10-06] MEDS: PANTOPRAZOLE SODIUM 40 MG VIAL IV (22:05)
[2023-10-06] MEDS: ONDANSETRON PF 4 MG/2 ML VIAL IV (22:06)
[2023-10-06] MEDS: HYOSCYAMINE SULFATE 0.125 MG TAB.SUBL SL (22:06)
[2023-10-06] MEDS: TEMAZEPAM 15 MG CAPSULE PO (22:06)
[2023-10-06] MEDS: GABAPENTIN 100 MG CAPSULE 200 MG PO (22:06)
[2023-10-06] MEDS: DONEPEZIL HCL 10 MG TABLET PO (22:06)
[2023-10-06] MEDS: METHOCARBAMOL 500 MG TABLET PO (22:06)
[2023-10-06] MEDS: MELOXICAM 7.5 MG TABLET 15 MG PO (22:06)
[2023-10-06] MEDS: INSULIN ASPART 300 UNIT/3 ML PEN SUBQ (22:58)
[2023-10-07] VITALS (7 sets, daily range): BP systolic 111–170; BP diastolic 64–82; PULSE 48–60; TEMP 36.4–36.5; O2SAT 94–99
[2023-10-07] MEDS: CEFTRIAXONE 1,000 MG in 0.9 % SODIUM CHLORIDE 50 ML 100 MG IV (03:39)
[2023-10-07 07:57] LABS: Glucometer 76 mg/dL (74-106)
--- NOTE | 2023-10-07 08:41 | CM.NOTE ---
Rounds made with Dr. Anglin. Potential discharge later today if tolerates a diet. Follow up with PCP in ~1 week.
--- NOTE | 2023-10-07 08:42 | P.DS_ITS ---
DS: Providers Provider Date of admission: 10/06/23 17:38 Primary care physician: JASON CRUZ Consults: 10/06/23 18:18 Occupational Therapy Eval and Treat Routine Reason for consultation: Only if needed for Rehab Has provider been notified: No Physical Therapy Eval and Treat Routine Reason for consultation: Eval and Treat Has provider been notified: No DS: Diagnosis Discharge Diagnosis (1) Vomiting: (2) Acute metabolic encephalopathy: (3) Ethmoidal sinusitis: (4) Low back pain: Plan Acute elevation in creatinine, 125% above baseline, positive lactate consistent with dehydration. Improving at the time of discharge Iron deficiency anemia-stable at the time of discharge Altered mental status secondary to metabolic encephalopathy secondary to the above with dehydration versus sinusitis as the etiology. [place] Hypertension by history-stable at the time of discharge Dementia-continue with home medications BPH-continue with home medications GERD-IV Protonix Inpatient status: Patient only finding really is dehydration. IV hydration overnight. Medically necessary treatment likely only span 1 midnight. Observation status. ? DS: Summary Hospital Course Hospital Course: Patient mated with current nausea vomiting and some mild alteration in his mental status. When I saw him up on the medical surgical floor, he was back to his baseline from a mental status standpoint per his . At that point also he was eating dinner, without any difficulties. So far he has tolerated breakfast, lab results essentially unchanged, kidney function slightly improved, if maintains back to baseline from a mental status and point, he can be discharged home in improved condition. Medications see list. Follow-up with his PCP in the next week. Will hold off on diuretics as kidney function not back to baseline Time Spent with Patient Time attestation: Total time spent providing and/or coordinating discharge services: Exam Constitutional Vital Signs, click to edit/add: Last Vital Signs Temp 97.6 F 10/07/23 08:14 Pulse 60 10/07/23 08:14 Resp 18 10/07/23 08:14 BP 152/82 H 10/07/23 08:14 Pulse Ox 99 07/16/24 08:14 O2 Del Method Room Air 10/07/23 08:14 Documenting provider has reviewed patient's vital signs: yes Common normals: no apparent distress HENMT Common normals: normocephalic; oropharynx not normal (Dry mucous membranes) Chest Common normals: inspection of chest normal and palpation of chest normal Respiratory Common normals: normal respiratory effort, no retractions, no use of accessory muscles and clear to auscultation bilaterally Cardio Common normals: regular rate and regular rhythm GI Common normals: Normal to inspection, nondistended, normoactive bowel sounds present, soft to palpation and non-tender Neuro Common normals: moves all extremities and no focal motor deficits; not oriented x3 (Not oriented to place) DS: Data Data Completed and Pending Labs on day of discharge: Labs from last 24 hours 10/07/23 10/06/23 10/06/23 07:55 19:31 19:07 WBC RBC Hgb Hct MCV MCH MCHC RDW Plt Count MPV Neut % (Auto) Lymph % (Auto) [place] % (Auto) Eos % (Auto) Baso % (Auto) Neut # (Auto) Lymph # (Auto) [place] # (Auto) Eos # (Auto) Baso # (Auto) Abs Immat Gran (auto) Imm/Tot Granulo (auto) PT INR Puncture Site Rr ABG pH 7.384 ABG pCO2 43.5 ABG pO2 75.8 L ABG HCO3 26.0 ABG O2 Saturation 94.7 ABG Base Excess 0.9 Bobby Test Positive Sodium Potassium Chloride Carbon Dioxide Anion Gap BUN Creatinine Est GFR ( Amer) Est GFR (Non-Af Amer) BUN/Creatinine Ratio Glucose Lactate Calcium Total Bilirubin AST ALT Alkaline Phosphatase Troponin I High Sens NT-Pro-B Natriuret Pep Total Protein Albumin Globulin Albumin/Globulin Ratio Amylase Lipase Urine Color Urine Clarity Urine pH Ur Specific [place] Urine Protein Urine Glucose (UA) Urine Ketones Urine Occult Blood Urine Nitrite Urine Bilirubin Urine Urobilinogen Ur Leukocyte Esterase Ethanol Quant POC Glucose 76 245 H 10/06/23 10/06/23 10/06/23 18:50 16:49 15:25 WBC 10.0 RBC 4.02 L Hgb 12.7 L Hct 38.8 L MCV 96.5 H MCH 31.6 MCHC 32.7 RDW 13.8 Plt Count 166 MPV 11.4 Neut % (Auto) 80.8 H Lymph % (Auto) 11.8 L [place] % (Auto) 6.6 Eos % (Auto) 0.2 L Baso % (Auto) 0.3 Neut # (Auto) 8.1 H Lymph # (Auto) 1.2 [place] # (Auto) 0.7 Eos # (Auto) 0.0 Baso # (Auto) 0.0 Abs Immat Gran (auto) 0.03 Imm/Tot Granulo (auto) 0.3 PT INR Puncture Site ABG pH ABG pCO2 ABG pO2 ABG HCO3 ABG O2 Saturation ABG Base Excess Bobby Test Sodium 139 Potassium 4.0 Chloride 104 Carbon Dioxide 30.0 Anion Gap 9.0 BUN 49.0 H Creatinine 2.07 H Est GFR ( Amer) 37 L Est GFR (Non-Af Amer) 31 L BUN/Creatinine Ratio 23.7 Glucose 208 H Lactate 2.1 H Calcium 8.7 Total Bilirubin 0.6 AST 12 L ALT 17 Alkaline Phosphatase 86 Troponin I High Sens 8.0 NT-Pro-B Natriuret Pep 429.0 Total Protein 6.7 Albumin 3.2 L Globulin 3.5 Albumin/Globulin Ratio 0.9 Amylase 82 Lipase 14.0 L Urine Color Lt. yellow Urine Clarity Clear Urine pH 5.5 Ur Specific [place] 1.010 Urine Protein Negative Urine Glucose (UA) Negative Urine Ketones Negative Urine Occult Blood Trace-i Urine Nitrite Negative Urine Bilirubin Negative Urine Urobilinogen 0.2 Ur Leukocyte Esterase Negative Ethanol Quant POC Glucose 10/06/23 10/06/23 13:47 13:45 WBC 10.3 RBC 3.91 L Hgb 12.7 L Hct 37.3 L MCV 95.4 H MCH 32.5 MCHC 34.0 RDW 13.7 Plt Count 168 MPV 11.7 Neut % (Auto) 85.7 H Lymph % (Auto) 8.3 L [place] % (Auto) 5.4 Eos % (Auto) 0.1 L Baso % (Auto) 0.2 Neut # (Auto) 8.8 H Lymph # (Auto) 0.9 L [place] # (Auto) 0.6 Eos # (Auto) 0.0 Baso # (Auto) 0.0 Abs Immat Gran (auto) 0.03 Imm/Tot Granulo (auto) 0.3 PT 10.9 INR 1.03 Puncture Site ABG pH ABG pCO2 ABG pO2 ABG HCO3 ABG O2 Saturation ABG Base Excess Bobby Test Sodium 139 Potassium 3.9 Chloride 105 Carbon Dioxide 25.5 Anion Gap 12.4 BUN 50.0 H Creatinine 2.10 H Est GFR ( Amer) 37 L Est GFR (Non-Af Amer) 30 L BUN/Creatinine Ratio 23.8 Glucose 254 H Lactate 2.7 H* Calcium 8.8 Total Bilirubin 0.7 AST 13 L ALT 16 Alkaline Phosphatase 87 Troponin I High Sens 7.3 NT-Pro-B Natriuret Pep Total Protein 6.6 Albumin 3.2 L Globulin 3.4 Albumin/Globulin Ratio 0.9 Amylase Lipase Urine Color Urine Clarity Urine pH Ur Specific [place] Urine Protein Urine Glucose (UA) Urine Ketones Urine Occult Blood Urine Nitrite Urine Bilirubin Urine Urobilinogen Ur Leukocyte Esterase Ethanol Quant <3 POC Glucose 258 H Discharge Plan Discharge Disposition: Home, Self-Care Condition: Fair Discharge Medications: New candesartan [Atacand] 32 mg tablet 32 mg PO DAILY Qty: 30 11RF Continued allopurinol 300 mg tablet 300 mg PO DAILY docusate sodium 100 mg capsule 100 mg PO DAILY PRN (Reason: constipation) donepezil 10 mg tablet 10 mg PO BEDTIME fluoxetine 20 mg capsule 20 mg PO DAILY gabapentin 100 mg capsule 200 mg PO TID glipizide 10 mg tablet 10 mg PO BID lidocaine 5 % adhesive patch,medicated 1 patch topical Q24H Rx Instructions: BACK meloxicam 15 mg tablet 15 mg PO BEDTIME methocarbamol 500 mg tablet 500 mg PO BEDTIME omeprazole 40 mg capsule,delayed release(DR/EC) 40 mg PO DAILY solifenacin 10 mg tablet 10 mg PO DAILY tamsulosin 0.4 mg capsule 0.4 mg PO DAILY Discontinued candesartan-hydrochlorothiazid 32-25 mg tablet 1 tab PO DAILY furosemide 20 mg tablet 20 mg PO DAILY PRN (Reason: edema) Print Language: German Forms: Portal Instructions Follow Up Appointments: October 13 @ 10am with Darcy Gandhi NP at Dr. Cruz's office [phone]
--- NOTE | 2023-10-07 09:36 | SWNOTE1 ---
SW spoke with pt's on the phone. Pt does have intermittent confusion. Pt does drive still, and the gives him directions. Pt's is aware he is returning home today and has no concerns about discharge at this time. Pt has his car here, but is not able to get here to help drive home. Pt's is alright with SW setting up trips. will figure out how to get the car home later. Pt was walking halls with therapy, unsure if she uses a walker or not. SW reviewed Medicare Outpatient Observation Notice reviewed and discussed with patient's . Pt's verbalized understanding and signed the form. Original placed in patient's room and copy placed in patient?s chart.
--- NOTE | 2023-10-07 09:41 | SWNOTE1 ---
SW called and set up trips and they will be here between 11&11:30. SW to call back and let her know time. SW notified nurse of time.
[2023-10-07] MEDS: GLIPIZIDE 10 MG TABLET PO (09:44)
[2023-10-07] MEDS: ALLOPURINOL 300 MG TABLET PO (09:44)
[2023-10-07] MEDS: SOLIFENACIN SUCCINATE 10 MG TABLET PO (09:44)
[2023-10-07] MEDS: FLUOXETINE HCL 20 MG CAPSULE PO (09:44)
[2023-10-07] MEDS: TAMSULOSIN HCL 0.4 MG CAPSULE PO (09:44)
[2023-10-07] MEDS: GABAPENTIN 100 MG CAPSULE 200 MG PO (09:45)
[2023-10-07 09:48] LABS: Basophils Absolute Auto 0.1 10^3/uL (0.0-0.1); Basophils Percent Auto 0.5 % (0.2-2.0); Eosinophils Absolute Auto 0.4 10^3/uL (0.0-0.7); Eosinophils Percent Auto 3.7 % (0.9-7.0); Hematocrit 38.2 % (42.0-54.0); Hemoglobin 12.7 g/dL (14.0-18.0); Immature Granulocytes Abs Auto 0.02 10^3/uL (0.00-0.03); Immature Granulocytes Pct Auto 0.2 % (0.0-0.5); Lymphocytes Absolute Auto 1.8 10^3/uL (1.2-3.8); Mean Corpuscular HGB Conc 33.2 g/dL (29.9-35.2); Mean Corpuscular Hemoglobin 32.2 pg (25.9-34.0); Mean Corpuscular Volume 96.7 fL (80.0-94.0); Mean Platelet Volume 11.4 fL (9.5-13.5); Monocytes Absolute Auto 0.8 10^3/uL (0.3-0.8); Monocytes Percent Auto 8.4 % (1.7-12.0); Neutrophils Absolute Auto 6.9 10^3/uL (1.4-6.5); Neutrophils Percent Auto 69.2 % (43.0-75.0); Platelet Count 154 10^3/uL (150-450); Red Blood Count 3.95 10^6/uL (4.70-6.10); Red Cell Distribution Width 13.9 % (11.0-15.0)
[2023-10-07] MEDS: LOSARTAN POTASSIUM 50 MG TABLET 100 MG PO (09:48)
[2023-10-07] MEDS: HYDROCHLOROTHIAZIDE 25 MG TABLET PO (09:48)
[2023-10-07 10:12] LABS: Alanine Aminotransferase 17 U/L (16-63); Albumin Globulin Ratio 0.9; Albumin Level 3.1 g/dL (3.4-5.0); Alkaline Phosphatase 78 U/L (46-116); Anion Gap 11.8; Aspartate Amino Transferase 16 U/L (15-37); BUN Creatinine Ratio 23.6; Bilirubin Total 0.5 mg/dL (0.2-1.0); Calcium 8.5 mg/dL (8.5-10.1); Carbon Dioxide 28.3 mmol/L (21.0-32.0); Chloride 106 mmol/L (98-107); Estimated GFR (African America 40 (>=60); Estimated GFR (Non-African Ame 33 (>=60); Globulin 3.3 g/dL; Glucose 119 mg/dL (74-106); Potassium 4.1 mmol/L (3.5-5.1); Sodium 142 mmol/L (136-145); Total Protein 6.4 g/dL (6.4-8.2)
--- NOTE | 2023-10-07 10:18 | SWNOTE1 ---
SW called and let know time and that a script was sent to [facility] to be picked up.
--- NOTE | 2023-10-08 11:26 | CM.DCFOLLOWU ---
1st attemt 10/08/23
--- NOTE | 2023-10-10 11:35 | CM.DCFOLLOWU ---
2nd attempt 10/10/23
--- NOTE | 2023-10-13 13:07 | CM.DCFOLLOWU ---
3rd attempt 10/13/23
== END 2023-10-07 10:33 | disposition home or self-care (01) ==
LOC: ER 16:47 → MS 17:45
PROVIDERS: Admitting Provider Family Medicine; Emergency Provider Student in an Organized Health Care Education/Training Program; PCP Internal Medicine; Visit Provider Family Medicine
DX: E86.0 Dehydration (principal); D50.9 Iron deficiency anemia, unspecified; G93.41 Metabolic encephalopathy; R41.82 Altered mental status, unspecified; I10 Essential (primary) hypertension; F03.90 Unspecified dementia, unspecified severity, without behavioral disturbance, psychotic disturbance, mood disturbance, and anxiety; N40.0 Benign prostatic hyperplasia without lower urinary tract symptoms; K21.9 Gastro-esophageal reflux disease without esophagitis; J32.2 Chronic ethmoidal sinusitis; M54.50 Low back pain, unspecified; R79.89 Other specified abnormal findings of blood chemistry; Z79.899 Other long term (current) drug therapy
CPT/HCPCS: 36415; 36600; 70450; 70486; 71045; 72125; 74177; 80053; 80320; 81003; 82150; 82805; 82948; 83605; 83690; 83880; 84484; 85025; 85610; 87040; 93005; 94667; 94761; 96361; 96365; 96375; 97161; 97165; 99285; G0378; J0696; J2405; Q9966

== ENCOUNTER 2023-10-11 13:58 | Emergency (ER) | payer MEDICARE, SELFPAY ==
[2023-10-11 14:04] VITALS: BP 144/86; PULSE 67; TEMP 36.8; O2SAT 98; BMI 32.9
--- OUTSIDE RECORDS SUMMARY | 2023-10-11 14:05 | XMS_ITS | CCD ---
Author Organization [facility] Care Team Providers Care Certified Dietary Manager Name Role Phone JUAN PABLO ALANIZ Primary Care Physician [phone] DR JUAN PABLO ALANIZ Primary Care Unavailable [...] DR GOMEZ Primary Care Unavailable ANTHONY, DR GOEMZ Primary Care Unavailable CARMINE, DR YAKELIN Lucas Consulting Unavailabl e CARMINE, DR YAKELIN Lucas Admitting Unavailabl e REINFAISAL, DR YAKELIN Lucas Attending Unavailabl e MAYITO ., CAROLIN Consulting Unavailable ROJAS .SHELLIE Consulting Unavailable ZHANG ., DR VINH [...] ZHANG ., DR VINH Freeman Attending Unavailable HOLCOMB [...] DR BECKETT Consulting Unavailable HAY ., DR BCEKETT Admitting Unavailable HAY ., DR BECKETT Attending [...] Unavailable ANTHONY, DR GOMEZ Primary Care Unavailable EMILYANDER, PETER D Admitting Unavailable HIGHLANDER, PETER D Attending Unavailable ALANIZ, DR GOMEZ Primary Care Unavailable ZIEBDEMARCUS, DR SAURABH Schultz Consulting Unavailable OMAR, DR [...] ., NARENDRANATH Admitting Yasmeen vailable LAKSHMIPATHY ., NARENDRANATH Attending Yasmeen vailable ANTHONY, DR GOMEZ Primary Care Unavailable HIGHLANDER, PETER D Admitting Unavailable HIGHLANDER, PETER D Attending Unavailable ANTHONY, JUAN PABLO Basilio Attending Unavailable ANTHONY, JUAN PABLO Basilio Attending Unavailable CHET SANDOVAL Attending Unavailable JUAN PABLO ALANIZ Attending Unavailable JUAN PABLO ALANIZ Attending Unavailable Marianela Ingram Attending Unavailable CAIT PINTO Attending Unavailable CAIT PINTO Attending Unavailable Allergies Allergy Classification Reported Allergen(s) Allergy Type Date of Onset Reaction(s) Facility (8 sources) Penicillin; Translations: [penicillin] Drug Allergy 12-01-2021 Hives [facility] (2 sources) Penicillins Drug allergy (disorder) [facility] Repository Medications Current Medications Medication Drug [...] day(s), # 30 tab(s), Refills(s) 11, Pharmacy: [facility], 167, cm, 09/16/22 15:10:00 EDT, Height/Length Dosing, 120, kg, 09/16/22 15:10:00 EDT, Weight Dosing Start Date: 09/16/22 Stop Date: 09/11/23 Status: Ordered Start: 04-26-2022 take 1 tablet by [facility] once daily Vesicare 5 mg Tab 5 mg = 1 tab(s), Oral, Daily, # 30 tab(s), Refills(s) 11, Pharmacy: [facility], 174, cm, 12/03/21 13:40:00 EDT, Height/Length [...] Start: 10-25-2021 take 1 capsule by [facility] once daily Flomax 0.4 mg Cap 0.4 mg = 1 cap(s), Oral, Daily, # 90 cap(s), Refills(s) 3, Pharmacy: [facility], 174, cm, 09/03/21 13:40:00 EDT, Height/Length Dosing, 112.5, kg, 09/03/21 13:40:00 EDT, Weight Dosing Start Date: 10/25/21 Status: Ordered Start: 07-03-2021 take 1 capsule by [facility] once daily Flomax 0.4 mg Cap 0.4 mg = 1 cap(s), Oral, Daily, # 30 cap(s), Refills(s) 3, Pharmacy: [facility]5, 174, cm, 07/17/20 5:39:00 EDT, Height/Length Dosing, 112.5, kg, 07/17/20 5:39:00 EDT, Weight Dosing Start Date: 07/03/21 Status: Ordered 24 hr tolterodine tartrate 4 mg extended release oral capsule (4 sources) Cholinergic Muscarinic Antagonist Start: 01-17-2021 take 1 capsule by mouth once daily tolterodine 4 mg Cap-ER 4 mg = 1 cap(s), Oral, Daily, # 30 cap(s), Refills(s) 11, Pharmacy: [facility], 174, cm, 09/03/21 13:40:00 EDT, Height/Length [...] 09-03-2021 Chronic Other aftercare (1 source) Other [employer] (current) drug therapy; Translations: [OTH CUSTOMER SUCCESS ADVOCATE CURRENT DRUG THERAPY] Onset: 07-31-2022 Episodic Other aftercare (1 source) [facility] (current) use of oral hypoglycemic drugs; Translations: [CUSTOMER SUCCESS ADVOCATE USE ORAL HYPOGLYCEMIC DX] Onset: 07-31-2022 Episodic [...] Episodic Residual codes; unclassified (6 sources) Amnesia 01-17-2021 Episodic Residual codes; unclassified (6 sources) Swelling [...] OF COVID-19] Onset: 03-06-2022 Unclassified (1 source) CUSTOMER SUCCESS ADVOCATE INJECT NONINSULN ANTIDIAB; Translations: [USP INJECT NONINSULN ANTIDIAB] Onset: 03-02-2022 Past or [...] Value Interpretation Reference Range Facility [facility] (Inserted Image. Yasmeen ble to display) May 13, 2023 NAT MOORE [address] [address] [address] [place] [address] : 1940 Dear Nat, You missed your [...] [facility] [address], [place] [address] Normal [facility] BNPon 07-27-2022 Natriuretic peptide B (Bld) [Mass/Vol] 178.0 pg/mL Normal <=1,800.0 [facility] Comment on above: Performed By: #### C MP, BNP, CMADM #### [facility] [address] [place] [address] Dr. Loyd Parks CARDIAC SPARKLE ADMITon 023 CK [Catalytic activity/Vol] 50 U/L Normal 39-308 [facility] Comment on above: Performed By: #### C MP, BNP, CMADM #### [facility] [address] [place] [address] Dr. Loyd Parks CK.MB [Mass/Vol] 0.83 ng/mL Normal <=3.60 [facility] Comment on above: Performed By: #### C MP, BNP, CMADM #### [facility] [address] [place] [address] Dr. Loyd Parks HSTROP 6.3 pg/mL Normal 4.0-76.1 [facility] Comment on above: Result Comment: CUT- OFF POINTS HAVE BEEN ESTABLISHED BASED ON THE FOURTH UNIVERSAL DEFINITIONS OF MYOCARDIAL INFARCTION. THE UPPER REFERENCE LIMIT (URL) OF TROPONIN, DEFINED THE 99TH PERCENTILE OF cTnI DISTRIBUTION IN A REFERENCE POPULATION, HAS BEEN CONFIRMED THE DECISION THRESHOLD FOR DE DIAGNOSIS. Performed By: #### C MP, BNP, CMADM #### [facility] [address] [place] [address] Dr. Loyd Parks WM 121 ng/mL Critically high 16-96 [facility] Comment on above: Performed By: #### C MP, BNP, CMADM #### [facility] [address] [place] [address] Dr. Loyd Parks CBC AUTO DIFFon 07-27-2022 BASO # 0.1 103/ul Normal 0.0-0.1 [facility] Comment on above: Performed By: #### C BC #### [facility] [address] [address] [address] Loyd Parks Basophils/100 WBC (Bld) 0.6 % Normal 0.2-2.0 [facility] Comment on above: Performed By: #### C BC #### [facility] [address] [address] [address] Loyd Parks EO # 0.5 103/ul Normal 0.0-0.7 [facility] Comment on above: Performed By: #### C BC #### [facility] [address] [place] [address] Dr. Loyd Parks Eosinophils/100 WBC (Bld) 4.8 % Normal 0.9-7.0 [facility] Comment on above: Performed By: #### C BC #### [facility] [address] [place] [address] Dr. Loyd Parks Erythrocyte distribution width (RBC) [Ratio] 13.5 % Normal 11.0-15.0 [facility] Comment on above: Performed By: #### C BC #### [facility] [address] [place] [address] Dr. Loyd Parks Hematocrit (Bld) [Volume fraction] 39.7 % Critically low 42.0-54.0 [facility] Comment on above: Performed By: #### C BC #### [facility] [address] [place] [address] Dr. Loyd Parks Hemoglobin (Bld) [Mass/Vol] 13.1 g/dL Critically low 14.0-18.0 [facility] Comment on above: Performed By: #### C BC #### [facility] [address] [place] [address] Dr. Loyd Parks IG # 0.05 10e3/ul Critically high 0.00-0.03 [facility] Comment on above: Performed By: #### C BC #### [facility] [address] [place] [address] Dr. Loyd Parks IG % 0.5 % Normal 0.0-0.5 [facility] Comment on above: Performed By: #### C BC #### [facility] [address] [place] [address] Dr. Loyd Parks LYMPH # 1.4 103/ul Normal 1.2-3.8 [facility] Comment on above: Performed By: #### C BC #### [facility] [address] [place] [address] Dr. Loyd Parks Lymphocytes/100 WBC (Bld) 14.1 % Critically low 20.5-60.0 [facility] Comment on above: Performed By: #### C BC #### [facility] [address] [place] [address] Dr. Loyd Parks MANUAL DIFF REQ NO Normal [facility] Comment on above: Performed By: #### C BC #### [facility] [address] [place] [address] Dr. Loyd Parks MCH (RBC) [Entitic mass] 31.6 pg Normal 25.9-34.0 [facility] Comment on above: Performed By: #### C BC #### [facility] [address] [place] [address] Dr. Loyd Parks MCHC (RBC) [Mass/Vol] 33.0 g/dL Normal 29.9-35.2 [facility] Comment on above: Performed By: #### C BC #### [facility] [address] [place] [address] Dr. Loyd Parks MCV (RBC) [Entitic vol] 95.7 fL Critically high 80.0-94.0 [facility] Comment on above: Performed By: #### C BC #### [facility] [address] [place] [address] Dr. Loyd Parks MONO # 1.0 103/ul Critically high 0.3-0.8 [facility] Comment on above: Performed By: #### C BC #### [facility] [address] [place] [address] Dr. Loyd Parks Monocytes/100 WBC (Bld) 9.7 % Normal 1.7-12.0 [facility] Comment on above: Performed By: #### C BC #### [facility] [address] [place] [address] Dr. Loyd Parks NEUT # 7.2 103/ul Critically high 1.4-6.5 [facility] Comment on above: Performed By: #### C BC #### [facility] [address] [place] [address] Dr. Loyd Parks Neutrophils/100 WBC (Bld) 70.3 % Normal 43.0-75.0 [facility] Comment on above: Performed By: #### C BC #### [facility] [address] [place] [address] Dr. Loyd Parks Platelet mean volume (Bld) [Entitic vol] 10.8 fL Normal 9.5-13.5 [facility] Comment on above: Performed By: #### C BC #### [facility] [address] [place] [address] Dr. Loyd Parks PLT 199 103/ul Normal 150-450 [facility] Comment on above: Performed By: #### C BC #### [facility] [address] [place] [address] Dr. Loyd Parks RBC 4.15 106/ul Critically low 4.70-6.10 [facility] Comment on above: Performed By: #### C BC #### [facility] [address] [place] [address] Dr. Loyd Parks WBC 10.2 103/ul Normal 4.0-11.0 [facility] Comment on above: Performed By: #### C BC #### [facility] [address] [place] [address] Dr. Loyd Parks CULTURE BLOODon 07-27-2022 Microscopic examination of blood, culture Culture Observations: NO GROWTH AT 5 DAYS. Normal [facility] Comment on above: Performed By: #### E RUR #### [facility] [address] [place] [address] Dr. Loyd Parks Covid-19 PCR (CVDTBH)on SARS-CoV-2 (COVID-19) RNA SAUNDRA+probe Ql (Unsp spec) Not detected Normal NOT DETECTED [facility] Comment on above: Result Comment: This test is not yet approved or cleared by the [place] FDA. When there are no FDA-approved or cleared tests available, and other criteria are met, FDA can make tests available under an emergency access mechanism called an Emergency Use Authorization (EUA). The EUA for this test is supported by the [place] of Health and Human Service's (HHS's) declaration [...] SARS-CoV-2. Performed By: #### E RUR #### [facility] [address] [place] [address] Dr. Loyd Parks LACTATE/LACTIC ACIDon 2022 Lactate [Moles/Vol] 2.2 mmol/L Critically high 0.4-2.0 [facility] Comment on above: Performed By: #### C MP, BNP, CMADM #### [facility] [address] [place] [address] Dr. Loyd Parks PROF 14(COMP METB)on 023 Albumin [Mass/Vol] 3.3 g/dL Critically low 3.4-5.0 [facility] Comment on above: Performed By: #### C MP, BNP, CMADM #### [facility] [address] [place] [address] Dr. Loyd Parks Albumin/Globulin [Mass ratio] 0.9 {ratio} Normal [facility] Comment on above: Performed By: #### C MP, BNP, CMADM #### [facility] [address] [address] [address] Loyd Parks ALP [Catalytic activity/Vol] 91 U/L Normal 46-116 [facility] Comment on above: Performed By: #### C MP, BNP, CMADM #### [facility] [address] [place] [address] Dr. Loyd Parks ALT [Catalytic activity/Vol] 18 U/L Normal 16-63 [facility] Comment on above: Performed By: #### C MP, BNP, CMADM #### [facility] [address] [place] [address] Dr. Loyd Parks Anion gap [Moles/Vol] 12.2 mmol/L Normal [facility] Comment on above: Performed By: #### C MP, BNP, CMADM #### [facility] [address] [place] [address] Dr. Loyd Parks AST [Catalytic activity/Vol] 15 U/L Normal 15-37 [facility] Comment on above: Performed By: #### C MP, BNP, CMADM #### [facility] [address] [place] [address] Dr. Loyd Parks Bilirubin [Mass/Vol] 0.4 mg/dL Normal 0.2-1.0 [facility] Comment on above: Performed By: #### C MP, BNP, CMADM #### [facility] [address] [place] [address] Dr. Loyd Parks Calcium [Mass/Vol] 8.7 mg/dL Normal 8.5-10.1 [facility] Comment on above: Performed By: #### C MP, BNP, CMADM #### [facility] [address] [place] [address] Dr. Loyd Parks Chloride [Moles/Vol] 105 mmol/L Normal 98-107 [facility] Comment on above: Performed By: #### C MP, BNP, CMADM #### [facility] [address] [place] [address] Dr. Loyd Parks CO2 [Moles/Vol] 28.0 mmol/L Normal 21.0-32.0 [facility] Comment on above: Performed By: #### C MP, BNP, CMADM #### [facility] [address] [place] [address] Dr. Loyd Parks Creatinine [Mass/Vol] 2.25 mg/dL Critically high 0.70-1.30 [facility] Comment on above: Performed By: #### C MP, BNP, CMADM #### [facility] [address] [place] [address] Dr. Loyd Parks EGFR-AF [place]ER 34 mL/min/1.73m2 Critically low >=60 [facility] Comment on above: Performed By: #### C MP, BNP, CMADM #### [facility] [address] [place] [address] Dr. Loyd Parks EGFR-NON AF [place] 28 mL/min/1.73m2 Critically low >=60 [facility] Comment on above: Performed By: #### C MP, BNP, CMADM #### [facility] [address] [place] [address] Dr. Loyd Parks Globulin (S) [Mass/Vol] 3.8 g/dL Normal [facility] Comment on above: Performed By: #### C MP, BNP, CMADM #### [facility] [address] [place] [address] Dr. Loyd Parks Glucose [Mass/Vol] 88 mg/dL Normal 74-106 [facility] Comment on above: Performed By: #### C MP, BNP, CMADM #### [facility] [address] [place] [address] Dr. Loyd Parks Potassium [Moles/Vol] 4.2 mmol/L Normal 3.5-5.1 [facility] Comment on above: Performed By: #### C MP, BNP, CMADM #### [facility] [address] [place] [address] Dr. Loyd Parks Protein [Mass/Vol] 7.1 g/dL Normal 6.4-8.2 [facility] Comment on above: Performed By: #### C MP, BNP, CMADM #### [facility] [address] [place] [address] Dr. Loyd Parks Sodium [Moles/Vol] 141 mmol/L Normal 136-145 [facility] Comment on above: Performed By: #### C MP, BNP, CMADM #### [facility] [address] [place] [address] Dr. Loyd Parks Urea nitrogen [Mass/Vol] 36.0 mg/dL Critically high 7.0-18.0 [facility] Comment on above: Performed By: #### C MP, BNP, CMADM #### [facility] [address] [place] [address] Dr. Loyd Parks Urea nitrogen/Creatinine [Mass ratio] 16.0 mg/mg Normal [facility] Comment on above: Performed By: #### C MP, BNP, CMADM #### [facility] [address] [place] [address] Dr. Loyd Parks PROTIMEon 07-27-2022 INR Coag (PPP) [Relative time] 0.95 {INR} Normal [facility] Comment on above: Performed By: #### P T, PTT #### [facility] [address] [place] [address] Dr. Loyd Parks INR GUIDELINES SEE BELOW Normal [facility] Comment on above: Result Comment: MARIE RED INR: 2.0 - 3.0 CONDITIONS NOT LISTED BELOW 2.5 - 3.5 FOR PROSTHETIC HEART VALVE REPLACEMENT 2.5 - 3.5 RECURRENT THROMBOSIS Performed By: #### P T, PTT #### [facility] [address] [place] [address] Dr. Loyd Parks PT Coag (PPP) [Time] 10.1 s Normal 9.0-11.6 [facility] Comment on above: Performed By: #### P T, PTT #### [facility] [address] [place] [address] Dr. Loyd Parks PTTon 07-27-2022 aPTT Coag (Bld) [Time] 27.3 s Normal 22.3-36.2 [facility] Comment on above: Performed By: #### P T, PTT #### [facility] [address] [place] [address] Dr. Loyd Parks SYMPTOMATIC COVID-19 ANTIGEN on 07-27-2022 EUA Statement SEE BELOW Normal [facility] Comment on above: Result Comment: This [...] sooner. Performed By: #### C VDAGS #### [facility] [address] [place] [address] Dr. Loyd Parks SARS-CoV-2 (COVID-19) RNA SAUNDRA+probe Ql (Unsp spec) Negative Normal NEGATIVE [facility] Comment on above: Performed By: #### C VDAGS #### [facility] [address] [place] [address] Dr. Loyd Parks XR CHEST 2 Von [...] ELIUD KAUR Date: 2022-07-26 22:19 Normal [facility] POINT OF CARE GLUCOSEon 03-25 Glucose [Mass/Vol] 102 mg/dL Normal 74-106 [facility] Comment on above: Performed By: #### C MP, BNP, CMADM #### [facility] [address] [place] [address] [address] [address] Loyd Parks ER URINE PROFILEon 2 Bilirubin Ql (U) Negative Normal NEGATIVE [facility] Comment on above: Performed By: #### E RUR #### [facility] [address] [place] [address] Dr. Loyd Parks Clarity (U) CLEAR Normal CLEAR [facility] Comment on above: Performed By: #### E RUR #### [facility] [address] [place] [address] Dr. Loyd Parks Color (U) LT. YELLOW Normal YELLOW [facility] Comment on above: Performed By: #### E RUR #### [facility] [address] [place] [address] Dr. Loyd CONWAY A micrscopic examination will be performed if indicated. Normal [facility] Comment on above: Performed By: #### E RUR #### [facility] [address] [place] [address] Dr. Loyd Parks Glucose Ql (U) 100 mg/dl Abnormal NEGATIVE [facility] Comment on above: Performed By: #### E RUR #### [facility] [address] [place] [address] Dr. Loyd Parks Hemoglobin Ql (U) Negative Normal NEGATIVE [facility] Comment on above: Performed By: #### E RUR #### [facility] [address] [place] [address] Dr. Loyd Parks Ketones Ql (U) Negative Normal NEGATIVE [facility] Comment on above: Performed By: #### E RUR #### [facility] [address] [place] [address] Dr. Loyd Parks LEUKOCYTES Negative Normal NEGATIVE [facility] Comment on above: Performed By: #### E RUR #### [facility] [address] [place] [address] Dr. Loyd Parks Nitrite Ql (U) Negative Normal NEGATIVE [facility] Comment on above: Performed By: #### E RUR #### [facility] [address] [place] [address] Dr. Loyd Parks pH (U) 5.5 [pH] Normal 5-9 [facility] Comment on above: Performed By: #### E RUR #### [facility] [address] [place] [address] Dr. Loyd Parks SPEC GRAVITY 1.015 Normal 1.005-<=1.025 [facility] Comment on above: Performed By: #### E RUR #### [facility] [address] [place] [address] Dr. Loyd Parks UA PROTEIN Negative Normal NEGATIVE/ TRACE [facility] Comment on above: Performed By: #### E RUR #### [facility] [address] [place] [address] Dr. Loyd Parks UR MICRO IND NOT INDICATED Normal [facility] Comment on above: Performed By: #### E RUR #### [facility] [address] [place] [address] Dr. Loyd Parks Urobilinogen Qn (U) 0.2 {Malcolm'U}/dL Normal 0.2 - 1. 0 [facility] Comment on above: Performed By: #### E RUR #### [facility] [address] [place] [address] Dr. Loyd Parks GROUP A STREP CULTUREon 02-21 S. pyogenes Ag Ql (Unsp spec) Culture Observations: NEGATIVE FOR GROUP A STREPTOCOCCUS. Normal [facility] Comment on above: Performed By: #### S SCRN, GRASTCX #### [facility] [address] [place] [id number] Dr. Loyd Parks STREPT SCREENon 03-03-2022 STREP SCREEN A Negative Normal NEGATIVE [facility] Comment on above: Performed By: #### S SCRN, GRASTCX #### [facility] [address] [place] [address] Dr. Loyd Parks Covid-19 PCR ([facility])on SARS-CoV-2 (COVID-19) RNA SAUNDRA+probe Ql (Unsp spec) Not detected Normal NOT DETECTED [facility] Comment on above: Result Comment: This test is not yet approved or cleared by the [place] FDA. When there are no FDA-approved or cleared tests available, and other criteria are met, FDA can make tests available under an emergency access mechanism called an Emergency Use Authorization (EUA). The EUA for this test is supported by the [place] of Health and Human Service's (HHS's) declaration [...] By: #### C MP, BNP, CMADM #### [facility] [address] [place] [address] Dr. Loyd Parks POINT OF CARE GLUCOSEon 12-22 Glucose [Mass/Vol] 133 mg/dL Critically high 74-106 [facility] Comment on above: Performed By: #### E RUR #### [facility] [address] [place] [address] Dr. Loyd Parks POINT OF CARE GLUCOSEon 09-0 Glucose [Mass/Vol] 75 mg/dL Normal 74-106 [facility] Comment on above: Performed By: #### E RUR #### [facility] [address] [place] [address] ABD/PELVIS WO CONon [...] 4. Colonic diverticulosis. Electronically authenticated by: SAURABH SIGNH Date: 2021-09-03 08:35 Normal [facility] ER URINE PROFILEon 2 Bilirubin Ql (U) Negative Normal NEGATIVE The [facility] Comment on above: Performed By: #### E RUR #### [facility] [address] [place] [address] Dr. Loyd Parks Clarity (U) CLEAR Normal CLEAR [facility] Comment on above: Performed By: #### E RUR #### [facility] [address] [place] [address] Dr. Loyd Parks Color (U) LT. YELLOW Normal YELLOW [facility] Comment on above: Performed By: #### E RUR #### [facility] [address] [place] [address] Dr. Loyd CONWAY A micrscopic examination will be performed if indicated. Normal [facility] Comment on above: Performed By: #### E RUR #### [facility] [address] [place] [address] Dr. Loyd Parks Glucose Ql (U) >1000 Abnormal NEGATIVE [facility] Comment on above: Performed By: #### E RUR #### [facility] [address] [place] [address] Dr. Loyd Parks Hemoglobin Ql (U) Negative Normal NEGATIVE [facility] Comment on above: Performed By: #### E RUR #### [facility] [address] [place] [address] Dr. Loyd Parks Ketones Ql (U) Negative Normal NEGATIVE [facility] Comment on above: Performed By: #### E RUR #### [facility] [address] [place] [address] Dr. Loyd Parks LEUKOCYTES Negative Normal NEGATIVE [facility] Comment on above: Performed By: #### E RUR #### [facility] [address] [place] [address] Dr. Loyd Parks Nitrite Ql (U) Negative Normal NEGATIVE [facility] Comment on above: Performed By: #### E RUR #### [facility] [address] [place] [address] Dr. Loyd Parks pH (U) 6.0 [pH] Normal 5-9 [facility] Comment on above: Performed By: #### E RUR #### [facility] [address] [place] [address] Dr. Loyd Parks SPEC GRAVITY 1.010 Normal 1.005-<=1.025 [facility] Comment on above: Performed By: #### E RUR #### [facility] [address] [place] [address] Dr. Loyd Parks UA PROTEIN Negative Normal NEGATIVE/ TRACE [facility] Comment on above: Performed By: #### E RUR #### [facility] [address] [place] [address] Dr. Loyd Parks UR MICRO IND NOT INDICATED Normal [facility] Comment on above: Performed By: #### E RUR #### [facility] [address] [place] [address] Dr. Loyd Parks Urobilinogen Qn (U) 0.2 {Malcolm'U}/dL Normal 0.2 - 1. 0 [facility] Comment on above: Performed By: #### E RUR #### [facility] [address] [place] [address] Dr. Loyd Parks ALCOHOLon 07-31-2020 Ethanol [Mass/Vol] mg/dL Normal [facility] Comment on above: Result Comment: FOR MEDICAL USE ONLY. . REF VALUES <10 Performed By: #### A LC ####[facility] [place] [address] CBC AND DIFFERENTIALon 07-31 % AUTOMATED IMMATURE GRAN 0.4 % Normal 0.0 - 0.9 [facility] Comment on above: Result Comment: Rylie ture Granulocyte Count (IG) includes promyelocytes, myelocytes and metamyelocytes but does not include bands. Percent differential counts (%) should be interpreted in the context of the absolute cell counts (cells/L). Performed By: #### C BCDF #### [facility] [address] [place] [address] Basophils (Bld) [#/Vol] 0.05 10*3/uL Normal 0.00 - 0.10 [facility] Comment on above: Performed By: #### C BCDF #### [facility] [address] [place] [address] Basophils/100 WBC (Bld) 0.6 % Normal 0.0 - 2.0 [facility] Comment on above: Performed By: #### C BCDF #### [facility] [address] [place] [address] Eosinophils (Bld) [#/Vol] 0.21 10*3/uL Normal 0.00 - 0.40 [facility] Comment on above: Performed By: #### C BCDF #### [facility] [address] [place] [address] Eosinophils/100 WBC (Bld) 2.4 % Normal 0.0 - 6.0 [facility] Comment on above: Performed By: #### C BCDF #### [facility] [address] [place] [address] Erythrocyte distribution width (RBC) [Ratio] 13.2 % Normal 11.5 - 14.5 [facility] Comment on above: Performed By: #### C BCDF #### [facility] [id number] [place] [address] Hematocrit (Bld) [Volume fraction] 50.0 % Normal 41.0 - 52.0 [facility] Comment on above: Performed By: #### C BCDF #### [facility] [id number] [place] [address] Hemoglobin (Bld) [Mass/Vol] 17.3 g/dL Normal 13.5 - 17.5 [facility] Comment on above: Performed By: #### C BCDF #### [facility] [id number] [place] [address] Lymphocytes (Bld) [#/Vol] 1.59 10*3/uL Normal 0.80 - 3.00 [facility] Comment on above: Performed By: #### C BCDF #### [facility] [id number] [place] [address] Lymphocytes/100 WBC (Bld) 17.9 % Normal 13.0 - 44.0 [facility] Comment on above: Performed By: #### C BCDF #### [facility] [address] [place] [address] MCHC (RBC) [Mass/Vol] 34.6 g/dL Normal 32.0 - 36.0 [facility] Comment on above: Performed By: #### C BCDF #### [facility] [address] [place] [address] MCV (RBC) [Entitic vol] 89 fL Normal 80 - 100 [facility] Comment on above: Performed By: #### C BCDF #### [facility] [address] [place] [address] Monocytes (Bld) [#/Vol] 0.82 10*3/uL High 0.05 - 0.80 [facility] Comment on above: Performed By: #### C BCDF #### [facility] [id number] [place] [address] [place] [address] Monocytes/100 WBC (Bld) 9.2 % Normal 2.0 - 10.0 [facility] Comment on above: Performed By: #### C BCDF #### [facility] [id number] [place] [address] [place] [address] Neutrophils (Bld) [#/Vol] 6.18 10*3/uL High 1.60 - 5.50 [facility] Comment on above: Performed By: #### C BCDF #### [facility] [id number] [place] [address] [place] [address] Neutrophils/100 WBC (Bld) 69.5 % Normal 40.0 - 80.0 [facility] Comment on above: Performed By: #### C BCDF #### [facility] [id number] [place] [address] [place] [address] Platelets (Bld) [#/Vol] 215 10*3/uL Normal 150 - 450 [facility] Comment on above: Performed By: #### C BCDF #### [facility] [id number] [place] [address] [place] [address] RBC 5.59 x10E12/L Normal 4.50 - 5.90 [facility] Comment on above: Performed By: #### C BCDF #### [facility] [id number] [place] [address] [place] [address] WBC (Bld) [#/Vol] 8.9 10*3/uL Normal 4.4 - 11.3 [facility] Comment on above: Performed By: #### C BCDF #### [facility] [id number] [place] [address] [place] [address] CHEST 1 VIEWon 07-31-2020 CHEST 1 VIEW STUDY: Chest Radiograph; 07/30/2020 10:53 PM INDICATION: Shortness of breath. COMPARISON: None available. ACCESSION NUMBER(S): [id number] ORDERING CLINICIAN: ZAID CUELLAR DO TECHNIQUE: Frontal chest was obtained at 2355 hours. FINDINGS: CARDIOMEDIASTINAL SILHOUETTE: Cardiomediastinal silhouette is normal in size and configuration. LUNGS: Lungs are clear. ABDOMEN: No remarkable upper abdominal findings. BONES: No acute osseous changes. IMPRESSION: No acute pulmonary abnormality. Signed by Rodrick Anna MD Electronically signed by: RODRICK ANNA MD Normal [facility] COMPREHENSIVE PANELon 2020 Albumin [Mass/Vol] 3.7 g/dL Normal 3.4 - 5.0 [facility] Comment on above: Performed By: #### C MP ####[facility] [place] [address] ALP [Catalytic activity/Vol] 80 U/L Normal 33 - 136 [facility] Comment on above: Performed By: #### C MP ####[facility] [place] [address] ALT [Catalytic activity/Vol] 12 U/L Normal 10 - 52 [facility] Comment on above: Result Comment: Jade ents treated with Sulfasalazine may generate falsely decreased results for ALT. Performed By: #### C MP ####[facility] [place] [address] Anion gap [Moles/Vol] 13 mmol/L Normal 10 - 20 [facility] Comment on above: Performed By: #### C MP ####[facility] [place] [address] AST [Catalytic activity/Vol] 12 U/L Normal 9 - 39 [facility] Comment on above: Performed By: #### C MP ####[facility] [place] [address] Bilirubin [Mass/Vol] 0.7 mg/dL Normal 0.0 - 1.2 [facility] Comment on above: Performed By: #### C MP ####[facility] [place] [address] Calcium [Mass/Vol] 9.2 mg/dL Normal 8.6 - 10.3 [facility] Comment on above: Performed By: #### C MP ####[facility] [place] [address] Chloride [Moles/Vol] 101 mmol/L Normal 98 - 107 [facility] Comment on above: Performed By: #### C MP ####[facility] [place] [address] Creatinine [Mass/Vol] 1.36 mg/dL High 0.50 - 1.30 [facility] Comment on above: Performed By: #### C MP ####[facility] [place] [address] GFR- AM. 61 mL/min/1.73m2 Normal >60 [facility] Comment on above: Result Comment: CALC ULATIONS OF ESTIMATED GFR ARE PERFORMED USING THE MDRD STUDY EQUATION FOR THE IDMS-TRACEABLE CREATININE METHODS. CLIN CHEM 2007;53:766-72 Performed By: #### C MP ####[facility] [place] [address] GFR-NON AM. 50 mL/min/1.73m2 Abnormal >60 [facility] Comment on above: Performed By: #### C MP ####[facility] [place] [address] Glucose [Mass/Vol] 390 mg/dL High 74 - 99 [facility] Comment on above: Performed By: #### C MP ####[facility] [place] [address] HCO3 (Bld) [Moles/Vol] 27 mmol/L Normal 21 - 32 [facility] Comment on above: Performed By: #### C MP ####[facility] [place] [address] Potassium [Moles/Vol] 4.1 mmol/L Normal 3.5 - 5.3 [facility] Comment on above: Performed By: #### C MP ####[facility] [place] [address] Protein [Mass/Vol] 6.8 g/dL Normal 6.4 - 8.2 [facility] Comment on above: Performed By: #### C MP ####[facility] [place] [address] Sodium [Moles/Vol] 137 mmol/L Normal 136 - 145 [facility] Comment on above: Performed By: #### C MP ####[facility] [place] [address] Urea nitrogen [Mass/Vol] 27 mg/dL High 6 - 23 [facility] Comment on above: Performed By: #### C MP ####[facility] [place] [address] CT HEAD WO CONTRASTon 2020 CT HEAD WO CONTRAST STUDY: CT Head without IV Contrast; 07/30/2020, 11:52 PM. INDICATION: Confusion, disorientation. COMPARISON: None Available. ACCESSION NUMBER(S): [id number] ORDERING CLINICIAN: ZAID CUELLAR DO TECHNIQUE: Noncontrast [...] Electronically signed by: RODRICK ANNA MD Normal [facility] MAGNESIUMon 07-31-2020 Magnesium [Mass/Vol] 2.04 mg/dL Normal 1.60 - 2.40 [facility] Comment on above: Performed By: #### M G #### [facility] [address] [place] [address] PT/INRon 07-31-2020 PT Coag (PPP) [Time] 12.0 s Normal 10.1 - 13.3 [facility] Comment on above: Performed By: #### P TINR #### [facility] [address] [place] [address] PT, INR 1.0 Normal 0.9 - 1.1 [facility] Comment on above: Performed By: #### P TINR #### [facility] [address] [place] [address] Provider Note - ED v2on 07-22 Provider Note - ED v2 Provider Note - ED v2: Chart Review: ED NOTES ED NOTES: History: This is an 80-year-old male presenting from the [facility] by [facility] for chief complaint of a medical evaluation. Patient left his home in [place] 3 days ago because he got into an argument with his and he has not been back since. He was finally located at a [facility] down the street when family called. [...] From Triage - ED 30-Jul-2020 23:17 Normal [facility] Risk Screen - Adult Emergenc yon 07-31-2020 [...] instruction; written material Cultural Considerationsnone Developmental Considerationsnone Yazidi Considerationsnone Learning Assessment (Other Learner): Learning Assessment (Other Learner): Other learner availableno Pressure Injury/TB/Substance: Pressure Injury: Do you have a coughno Substance Use Current or Former Historynever: Cigarette/Tobacco, e-Cigarette/Vaping, Alcohol, Street Drugs Admission Risk Screen: Significant IndicatorsComplete CAGE: CAGE: Is this an injured patient at a Trauma Center ([facility]/[place]): no Electronic Signatures: Elizabeth Ivan) (Signed 30-Jul-2020 23:24) Authored: Preferred Language, Advanced Directives, Family Violence Adult, Learning Assessment (Patient), Learning Assessment (Other Learner), Pressure Injury/TB/Substance, Pressure Injury, CAGE Last Updated: 30-Jul-2020 23:24 by Elizabeth Ivan) Normal [facility] TROPONIN Ion 07-31-2020 Troponin I.cardiac [Mass/Vol] ng/mL Normal 0.00 - 0.03 [facility] Comment on above: Result Comment: LESS THAN [...] is performed using different testing methodology at [facility] than at other [facility]. Direct result comparisons should only be made within the same method. Performed By: #### T ROP2 #### [facility] [address] [place] [address] Triage - EDon 07-31-2020 Triage - ED Quick Triage: The patient and/or guardian verbally acknowledges placement for services into the following (when Urgent Care Service hours are operating):emergency department Chart Review: PRIMARY ASSESSMENT NAT MOORE's primary assessment is Within Defined Limits. The airway is open and patent. Breathing spontaneous and unlabored with clear breath sounds bilaterally. Circulation is normal with good peripheral pulses. Skin is warm and dry and color is normal for race. ARRIVAL INFORMATION Means of Arrival: stretcher Mode of Arrival: ambulance Agency: 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 [address] [place] [address] SQUAMOUS EPITH. CELLS <1 Normal [facility] Comment on above: Performed By: #### U AMIC #### [facility] [address] [place] [address] WBC 22 /HPF Abnormal 0-5 [facility] Comment on above: Performed By: #### U AMIC #### [facility] [address] [place] [address] URINALYSISon 07-31-2020 Appearance (U) CLEAR Normal CLEAR [facility] Comment on above: Performed By: #### U A #### [facility] [address] [place] [address] Bilirubin Ql (U) Negative Normal NEGATIVE [facility] Comment on above: Performed By: #### U A #### [facility] [address] [place] [address] Color (U) STRAW Normal STRAW,YELLOW [facility] Comment on above: Performed By: #### U A #### [facility] [address] [place] [address] Glucose Ql (U) >=500(3+) Abnormal NEGATIVE [facility] Comment on above: Performed By: #### U A #### [facility] [address] [place] [address] Hemoglobin Ql (U) SMALL(1+) Abnormal NEGATIVE [facility] Comment on above: Performed By: #### U A #### [facility] [address] [place] [address] Ketones Ql (U) Negative Normal NEGATIVE [facility] Comment on above: Performed By: #### U A #### [facility] [address] [place] [address] Leukocyte esterase Test strip Ql (U) TRACE Abnormal NEGATIVE [facility] Comment on above: Performed By: #### U A #### [facility] [address] [place] [address] Nitrite Ql (U) Negative Normal NEGATIVE [facility] Comment on above: Performed By: #### U A #### [facility] [address] [place] [address] pH (U) 6.0 [pH] Normal 5.0 - 8.0 [facility] Comment on above: Performed By: #### U A #### [facility] [address] [place] [address] Protein Ql (U) 100(2+) Abnormal NEGATIVE [facility] Comment on above: Performed By: #### U A #### [facility] [address] [place] [address] Specific gravity (U) [Rel density] 1.025 Normal 1.005 - 1.035 [facility] Comment on above: Performed By: #### U A #### [facility] [address] [place] [address] Urobilinogen (U) [Mass/Vol] mg/dL Normal 0.0 - 1.9 [facility] Comment on above: Performed By: #### U A #### [facility] [address] [place] [address] Vital Signs Date Time Vital Sign Value Performing Clinician Dontae fuentes 09-16-2022 14:48-0400 Blood Pressure Location Umer VALENCIA [facility] 09-16-2022 14:48-0400 Diastolic blood pressure 74 mm[Hg] Umer VALENCIA [facility] 09-16-2022 14:48-0400 Heart rate 70 /min Umer VALENCIA [facility] 09-16-2022 14:48-0400 Respiratory rate 16 /min Umer VALENCIA [facility] 09-16-2022 14:48-0400 Systolic blood pressure 130 mm[Hg] Umer VALENCIA [facility] 04-26-2022 11:04-0500 Blood Pressure Location Umer VALENCIA [facility] 04-26-2022 11:04-0500 Diastolic blood pressure 78 mm[Hg] Umer VALENCIA [facility] 04-26-2022 11:04-0500 Heart rate 62 /min Umer VALENCIA [facility] 04-26-2022 11:04-0500 Respiratory rate 16 /min Umer VALENCIA [facility] 04-26-2022 11:04-0500 Systolic blood pressure 134 mm[Hg] Umer VALENCIA [facility] 12-03-2021 13:08-0400 Blood Pressure Location Umer VALENCIA [facility] 12-03-2021 13:08-0400 Diastolic blood pressure 70 mm[Hg] Umer VALENCIA [facility] 12-03-2021 13:08-0400 Heart rate 65 /min Umer VALENCIA [facility] 12-03-2021 13:08-0400 Respiratory rate 16 /min Umer VALENCIA [facility] 12-03-2021 13:08-0400 Systolic blood pressure 109 mm[Hg] Umer VALENCIA [facility] 09-03-2021 13:39-0400 Blood Pressure Location Umer VALENCIA [facility] 09-03-2021 13:39-0400 Diastolic blood pressure 67 mm[Hg] Umer VALENCIA [facility] 09-03-2021 13:39-0400 Heart rate 68 /min Umer VALENCIA [facility] 09-03-2021 13:39-0400 Respiratory rate 16 /min Umer VALENCIA [facility] 09-03-2021 13:39-0400 Systolic blood pressure 102 mm[Hg] Umer VALENCIA [facility] Encounters Encounter Date Encounter Type Care Provider Facility Start: 10-14-2023 ambulatory Marianela X Orzech Facilit y:[facility] Start: 08-01-2023 End: 08-01-2023 ambulatory JUAN PABLO ALANIZ Not Available Start: 06-19-2023 End: 06-19-2023 ambulatory JUAN PABLO ALANIZ Not Available Start: 05-13-2023 End: 05-13-2023 ambulatory CAIT PINTO Facility:[facility] Start: 05-13-2023 End: 05-13-2023 Patient encounter procedure CAIT PINTO [facility] Start: 04-23-2023 End: 04-23-2023 ambulatory JUAN PABLO ALANIZ Not Available Start: 03-26-2023 End: 03-26-2023 ambulatory JUAN PABLO ALANIZ Not Available Start: 02-27-2023 End: 02-27-2023 ambulatory CHET SANDOVAL Not Available Start: 12-18-2022 End: 12-18-2022 ambulatory CAIT PINTO Facility:[facility] Start: 09-16-2022 End: 09-16-2022 Patient encounter procedure Umer VALENCIA [facility] Start: 07-26-2022 End: 07-27-[address] JUAN PABLO ALANIZ Facility:[facility] Start: 06-26-2022 End: 06-27-[address] JUAN PABLO ALANIZ Facility:[facility] Start: 05-23-2022 End: 05-24-[address] JUAN PABLO ALANIZ Facility:[facility] Start: 04-26-2022 End: 04-26-2022 Patient encounter procedure Umer VALENCIA [facility] Start: 04-22-2022 End: 04-23-[address] JUAN PABLO ALANIZ Facility:[facility] Start: 04-16-2022 End: 04-16-[address] JUAN PABLO ALANIZ Facility:[facility] Start: 04-08-2022 End: 04-08-2022 Patient encounter procedure Umer VALENCIA [facility] Start: 04-04-2022 ambulatory SHELLIE ROJAS . Facility:[facility] 1 Start: 03-08-2022 End: 03-08-[address] JUAN PABLO ALANIZ Facility:[facility] Start: 03-04-2022 Encounter for preprocedural cardiovascular examination DR VINH HOLCOMB . [facility] Start: 03-04-2022 Encounter for preprocedural laboratory examination DR VINH HOLCOMB . [facility] Start: 03-03-2022 End: 03-03-[address] JUAN PABLO ALANIZ Facility:[facility] Start: 03-02-2022 Encounter for preprocedural cardiovascular examination DR VINH HOLCOMB . [facility] Start: 02-26-[address] VINH HOLCOMB . Faci lity:[facility]1 Start: 02-22-2022 End: 02-23-2022 Encounter for preprocedural cardiovascular examination DR VINH HOLCOMB . Facility:[facility] Start: 02-22-2022 End: 02-23-[address] VINH HOLCOMB . Facility:[facility] Start: 02-22-2022 End: 02-23-2022 Encounter for preprocedural laboratory examination DR VINH HOLCOMB . Facility:[facility] Start: 02-19-2022 End: 02-20-2022 ambulatory MANDIE NOBLE Facility:[facility] Start: 02-04-[address] VINH HOLCOMB . Faci lity:[facility]1 Start: 01-22-2022 End: 01-23-[address] JUAN PABLO ALANIZ Facility:[facility] Start: 01-01-2022 End: 01-01-[address] VINH HOLCOMB . Facility:[facility] Start: 12-13-2021 End: 12-14-[address] VINH HOLCOMB . Facility:[facility] Start: 12-03-2021 End: 12-03-2021 Patient encounter procedure Umer VALENCIA [facility] Start: 11-29-2021 End: 11-30-2021 ambulatory MANDIE Goodman [facility] Facility:[facility]1 Start: 11-27-2021 End: 11-27-[address] VINH HOLCOMB . Facility:[facility] Start: 10-02-2021 End: 10-03-[address] VINH HOLCOMB . Facility:[facility] Start: 09-21-2021 End: 09-21-[address] SUJIT GR . Facility:[facility] Start: 09-19-2021 End: 09-20-2021 ambulatory MANDIE Goodman [facility] Facility:[facility] Start: 09-15-2021 End: 09-16-[address] SPARKLE NELSON Facility:[facility] Start: 09-03-2021 End: 09-03-2021 Patient encounter procedure Umer VALENCIA [facility] Start: 09-03-2021 End: 09-03-[address] JUAN PABLO ALANIZ Facility:[facility] Procedures Date Procedure Procedure Detail Performing Clinician Esophagogastroduodenoscopy P federico VALENCIA Plan of Treatment Date Care Activity Detail Author Start: 08-22-2022 ambulatory Ambulatory Facility:[facility] Immunizations Immunization Date Immunization Notes Care Provider Fa cility 02-22-2022 influenza virus vacc ine, unspecified formulation Umer VALENCIA [facility] 12-21-2020 SARS-CoV-2 (COVID-19 ) mRNA BNT-162b2 vax Umer VALENCIA [facility] 11-30-2020 SARS-CoV-2 (COVID-19 ) mRNA BNT-162b2 vax Umer VALENCIA [facility] 01-24-2020 influenza virus vacc ine, unspecified formulation Umer VALENCIA [facility] 03-04-2019 influenza virus vacc ine, unspecified formulation Umer VALENCIA [facility] 08-05-2018 pneumococcal polysaccharide vaccine, 23 valent Umer VALENCIA [facility] 12-18-2016 influenza virus vacc ine, unspecified formulation Umer VALENCIA [facility] 12-06-2015 influenza virus vacc ine, unspecified formulation Umer VALENCIA [facility] 12-21-2014 influenza virus vacc ine, unspecified formulation Umer VALENCIA [facility] Payers Date Payer Category Payer Unknown [id number] 1961 Unknown [id number] 1938 Unknown [id number] 2.16.84 0.1.851336.3.579.2.593 1938 Unknown [id number] 2.16.84 0.1.456697.3.579.2.593 1938 Unknown [id number] 2.16.84 0.1.591505.3.579.2.593 1938 Unknown [id number] 2.16.84 0.1.852701.3.579.2.593 1938 Unknown [id number] 2.16.84 0.1.892209.3.579.2.593 1938 Unknown [id number] 2.16.84 0.1.592307.3.579.2.593 1938 Unknown [id number] 2.16.84 0.1.619018.3.579.2.593 1938 Unknown [id number] 2.16.84 0.1.846251.3.579.2.593 1938 Unknown [id number] 2.16.84 0.1.124062.3.579.2.593 1938 Unknown [id number] 2.16.84 0.1.020716.3.579.2.593 1938 Unknown [id number] 2.16.84 0.1.868388.3.579.2.593 1938 Unknown [id number] 2.16.84 0.1.621963.3.579.2.593 1938 Unknown [id number] 2.16.84 0.1.287841.3.579.2.593 1938 Unknown [id number] 2.16.84 0.1.913916.3.579.2.593 1938 Unknown [id number] 2.16.84 0.1.238251.3.579.2.593 1938 Unknown [id number] 2.16.84 0.1.882512.3.579.2.593 1938 Unknown [id number] 2.16.84 0.1.293325.3.579.2.593 1938 Unknown [id number] 2.16.84 0.1.159552.3.579.2.593 1938 Unknown [id number] 2.16.84 0.1.746982.3.579.2.593 1938 Unknown [id number] 2.16.84 0.1.052035.3.579.2.593 1938 Unknown [id number] 2.16.84 0.1.497620.3.579.2.593 1938 Unknown [id number] 2.16.84 0.1.220712.3.579.2.593 1938 Unknown [id number] 2.16.84 0.1.147346.3.579.2.593 1938 Unknown [id number] 2.16.84 0.1.164675.3.579.2.593 1938 Unknown [id number] 2.16.84 0.1.212710.3.579.2.1259 1938 Unknown [id number] 2.16.84 0.1.973268.3.579.2.1259 1938 Unknown [id number] 2.16.84 0.1.914762.3.579.2.1259 1938 Unknown [id number] 2.16.840 .1.458586.3.579.2.1259 1938 Unknown [id number] 2.16.840 .1.366444.3.579.2.1259 1938 Unknown [id number] 2.16.8 40.1.779406.3.579.2.727 1938 Unknown [id number] 2.16.8 40.1.364162.3.579.2.727 1938 Unknown [id number] 2.16.8 40.1.851846.3.579.2.727 Social History Date Type Detail Facility Start: 09-03-2021 Tobacco smoking status Ex-smoker (fi nding) [facility] Sex Assigned At Male [facility] Start: 04-26-2022 Tobacco smoking status Never s moked tobacco (finding) [facility] Tobacco smoking status Never [facility] Functional Status Date Assessment Result Facility 09-16-2022 Functional Status N/A [facility] 04-26-2022 Functional Status N/A [facility] 12-03-2021 Functional Status N/A [facility] 09-03-2021 Functional Status N/A [facility] Clinical Notes 09-03-2021 to 09-16-2022 Note [...] your health care provider. General instructions Take aucq-eha-hobohgp and prescription medicines only as told by [...] provider. Document Revised: 11/27/2020 Document Reviewed: 11/27/2020 [employer] Patient Education 2022 Mindie. Follow Up Care 04/26/2022 11:39:09 With:ERIK MENG, Umer Schultz, URL Address: [facility] [address] , [place] [address]- When: Unknown [facility] 05-23-2022 Note CONSULTATION CONSULTATION DATE: 05/23/2022 [...] indicated. Patient agrees with this plan. [facility] 04-26-2022 Hospital Discharge instructions Patient Education [...] urethra. Follow these instructions at home: Take fmuc-wfz-drzjmsh and prescription medicines only as told by [...] 03/10/2006 Document Revised: 02/02/2019 Document Reviewed: 04/14/2017 [employer] Patient Education [employer]. Follow Up Care 04/08/2022 14:01:00 With:ERIK MENG, Umer Schultz, URL Address: [address] [place] [address]- When: Unknown [facility] 04-08-2022 Hospital Discharge instructions Patient Education [...] urethra. Follow these instructions at home: Take jfbv-fpw-sskxupa and prescription medicines only as told by [...] 03/10/2006 Document Revised: 02/02/2019 Document Reviewed: 04/14/2017 [employer] Patient Education 2020 Mindie. Follow Up Care 12/03/2021 14:11:02 With:ERIK MENG, Umer Schultz, URL Address: [facility] [address], [place] [address]- When: Unknown [facility] 01-22-2022 Note CONSULTATION CONSULTATION DATE: 01/22/2022 CHIEF [...] proceed. CC: Juan Pablo Alaniz M.D. 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 He does not use heat or ice to his back at this time. Current medications include gabapentin 200 mg t.i.d., nabumetone 750 mg b.i.d., [place] 5/325 t.i.d. Patient does use a walking [...] L3 and L4, L5. A refill for [place] 5/325 t.i.d. will be sent today. He will receive an oral U-Tox in the office today. Supportive measures such as stretching, a menthol heat rub and heat application to his back were discussed. I did recommend a Boost supplement daily. Patient will be followed up in the office post procedure and agrees to move forward. [facility] 12-03-2021 Hospital Discharge instructions Patient Education [...] urethra. Follow these instructions at home: Take ywzx-jqf-aqxxptg and prescription medicines only as told by [...] 03/10/2006 Document Revised: 02/02/2019 Document Reviewed: 04/14/2017 [employer] Patient Education 2020 Mindie. Follow Up Care 09/03/2021 14:17:23 With:ERIK MENG, KAYLYN Fox Address: [facility] [address], [place] [address]- [phone] When:04/04/2022 Comments:PVR [facility] 10-02-2021 Note CONSULTATION PROCEDURE DATE: 10/02/2021 [...] he reports mitigation of his pain symptomatology. [facility] Signed and Approved by: DR VINH HOLCOMB . 10/09/2021 09:28:00 [facility] 10-02-2021 Note CONSULTATION CONSULTATION DATE: 10/02/2021 [...] three times a day. We will re-prescribe [place] 5/325 t.i.d. which he had received from [...] to proceed. CC: Juan Pablo Alaniz M.D. [facility] Signed and Approved by: DR VINH HOLCOMB . 10/09/2021 09:28:00 [facility] 09-03-2021 Hospital Discharge instructions Patient Education [...] 03/10/2006 Document Revised: 11/27/2018 Document Reviewed: 02/07/2017 [employer] Patient Education 2020 Mindie. 09/03/2021 13:53:06 Benign Prostatic Hyperplasia Benign Prostatic [...] urethra. Follow these instructions at home: Take ztvq-qlv-mpqkydh and prescription medicines only as told by [...] 03/10/2006 Document Revised: 02/02/2019 Document Reviewed: 04/14/2017 [employer] Patient Education 2020 Mindie. Follow Up Care 07/03/2021 15:21:16 With:Umer VALENCIA MD, URL Address: [facility] [address] , [place] [address]- [phone] When:Within 3 Month(s) Comments:f/u in 3 months with PVR scan [facility] Evaluation + Plan note Future Appointments Appointment Date:12/03/2021 01:15:00 PM Scheduled Provider:Umer VALENCIA MD Location:[facility] Appointment Type:URO Office Visit [facility] Evaluation + Plan note Future Appointments Appointment Date:04/08/2022 12:45:00 PM Scheduled Provider:Umer VALENCIA MD Location:[facility] Appointment Type:URO Office Visit [facility] Evaluation + Plan note Future Appointments Appointment Date:04/26/2022 10:15:00 AM Scheduled Provider:Umer VALENCIA MD Location:[facility] Appointment Type:URO Office Visit [facility] Evaluation + Plan note Future Appointments Appointment Date:07/22/2022 08:45:00 AM Scheduled Provider:Umer VALENCIA MD Location:[facility] Appointment Type:URO Office Visit [facility] Evaluation + Plan note Future Appointments Appointment Date:12/20/2022 08:30:00 AM Scheduled Provider:Umer VALENCIA MD Location:[facility] Appointment Type:URO Office Visit [facility] Hospital course Narrative No data available for this section [facility] Hospital Discharge instructions No data available for this section [facility] Progress note No data available for this section [facility] picoChip Summary Purpose Family History No Family History [...] section and content) DATE CREATED AUTHOR [facility]/14/2020 [facility] DATE CREATED AUTHOR AUTHOR'S ORGANIZ ATION 08/02/2022 [facility] [place] [facility] DATE CREATED AUTHOR AUTHOR'S ORGANIZ ATION 08/03/2023 [facility] EPIC DATE CREATED AUTHOR AUTHOR'S ORGANIZ ATION 10/07/2023 [facility] Care Team (unrecognized sect ion and content) Personnel Name: JUAN PABLO ALANIZ MD Address: [address] [place] [address] Personnel Name: JUAN PABLO ALANIZ MD Address: [address] [place] [address] Personnel Name: JUAN PABLO ALANIZ MD Address: Address: [address] [place] [address] Personnel Name: JUAN PABLO ALANIZ MD Address: Address: [address] [place] [address] Personnel Name: JUAN PABLO ALANIZ MD Address: Address: [address] [place] [address] Personnel Name: JUAN PABLO ALANIZ MD Address: Address: [address] [place] [address] FOR RECORDS PERTAINING TO PATIENTS WHO ARE [...] THE PRIMARY CLINICAL RECORDS. [facility] [employer] provides no warranty or guarantee of the accuracy or completeness of information in this document.
[2023-10-11 14:32] LABS: Basophils Absolute Auto 0.1 10^3/uL (0.0-0.1); Basophils Percent Auto 0.6 % (0.2-2.0); Eosinophils Absolute Auto 0.3 10^3/uL (0.0-0.7); Eosinophils Percent Auto 3.1 % (0.9-7.0); Hematocrit 36.6 % (42.0-54.0); Hemoglobin 11.9 g/dL (14.0-18.0); Immature Granulocytes Abs Auto 0.04 10^3/uL (0.00-0.03); Immature Granulocytes Pct Auto 0.4 % (0.0-0.5); Lymphocytes Absolute Auto 1.4 10^3/uL (1.2-3.8); Lymphocytes Percent Auto 14.3 % (20.5-60.0); Mean Corpuscular HGB Conc 32.5 g/dL (29.9-35.2); Mean Corpuscular Hemoglobin 31.9 pg (25.9-34.0); Mean Corpuscular Volume 98.1 fL (80.0-94.0); Mean Platelet Volume 11.1 fL (9.5-13.5); Monocytes Absolute Auto 0.7 10^3/uL (0.3-0.8); Monocytes Percent Auto 7.1 % (1.7-12.0); Neutrophils Absolute Auto 7.2 10^3/uL (1.4-6.5); Neutrophils Percent Auto 74.5 % (43.0-75.0); Platelet Count 157 10^3/uL (150-450); Red Blood Count 3.73 10^6/uL (4.70-6.10); White Blood Count 9.6 10^3/uL (4.0-11.0)
--- NOTE | 2023-10-11 14:39 | ED_ITS ---
HPI HPI - General Adult General Chief complaint: Wound/Laceration Stated complaint: bruising Time Seen by Provider: 10/11/23 14:14 Source: patient and family Mode of arrival: Wheelchair Limitations: no limitations History of Present Illness HPI narrative: Patient is coming to the ER concern for this ecchymosis for the left side of the neck that he noticed when he was in the hospital 4 days ago before getting discharged, after he was admitted for hepatic encephalopathy, the at the bedside mentioned that she is here today because nobody addressed it when he was in the hospital, but the patient right now does not have any complain no dizziness no headache no nausea no vomiting no difficulty swallowing or any other concerns of weakness or fall At that time the patient had nausea and vomiting when he was in the hospital, but he just came from the restaurant he have no symptoms Related Data Home Medications ?Medication ?Instructions ?Recorded ?Confirmed allopurinol 300 mg tablet 300 mg PO DAILY 07/26/23 10/06/23 docusate sodium 100 mg capsule 100 mg PO DAILY PRN constipation 07/26/23 10/06/23 donepezil 10 mg tablet 10 mg PO BEDTIME 07/26/23 10/06/23 fluoxetine 20 mg capsule 20 mg PO DAILY 07/26/23 10/06/23 gabapentin 100 mg capsule 200 mg PO TID 07/26/23 10/06/23 glipizide 10 mg tablet 10 mg PO BID 07/26/23 10/06/23 lidocaine 5 % topical patch 1 patch topical Q24H 07/26/23 10/06/23 meloxicam 15 mg tablet 15 mg PO BEDTIME 07/26/23 10/06/23 methocarbamol 500 mg tablet 500 mg PO BEDTIME 07/26/23 10/06/23 omeprazole 40 mg capsule,delayed 40 mg PO DAILY 07/26/23 10/06/23 release solifenacin 10 mg tablet 10 mg PO DAILY 07/26/23 10/06/23 tamsulosin 0.4 mg capsule 0.4 mg PO DAILY 07/26/23 10/06/23 Previous Rx's ?Medication ?Instructions ?Recorded candesartan 32 mg tablet (Atacand) 32 mg PO DAILY #30 tabs 10/07/23 Allergies Allergy/AdvReac Type Severity Reaction Status Date / Time Penicillins Allergy Intermediate Unknown Verified 10/06/23 13:41 Opioid HPI Opioid Management Most Recent Opioid Data: Last Pain Scale 0 10/07/23 08:14 Last Pain Assessment 10/07/23 10:17 Last ORT Total Score 0 10/06/23 17:50 Last ORT Risk Category Low Risk 10/06/23 17:50 Ur Phencyclidine Scrn Negative (NEGATIVE) 07/26/23 08:10 Review of Systems ROS Status of ROS 10 or more systems reviewed and unremark able except as noted in history and below 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 (ICD-10) Low back pain ?M54.50 - Low back pain, unspecified (ICD-10) Dementia ?F03.90 - Unspecified dementia, unspecified severity, without behavioral disturbance, psychotic disturbance, mood disturbance, and anxiety (ICD-10) Depression ?F32.A - Depression, unspecified (ICD-10) Hyperuricemia ?E79.0 - Hyperuricemia without signs of inflammatory arthritis and tophaceous disease (ICD-10) HLD (hyperlipidemia) ?E78.5 - Hyperlipidemia, unspecified (ICD-10) Type 2 diabetes mellitus ?E11.9 - Type 2 diabetes mellitus without complications (ICD-10) HTN (hypertension) ?I10 - Essential (primary) hypertension (ICD-10) Social History (Updated 07/26/23 @ 14:57 by Shaikh Maritza MD) Within the past year, how often did you have a drink containing alcohol: never Within the past year, how many standard drinks containing alcohol did you have on a typical day: 1 or 2 Within the past year, how often did you have six or more drinks on one occasion: never Total score: 0 Score interpretation: A score less than 4 is consistent with normal alcohol consumption. Smoking status: Never smoker Non-prescribed substance use: denies use Highest level of school completed/degree received: high school graduate Exam Narrative Exam Narrative: Nurses notes and vital signs reviewed and patient is not hypoxic. General: Well-appearing and in no apparent distress. Skin: Warm, dry, no pallor noted. No rash. Head: Normocephalic, atraumatic. Neck: Supple, non-tender. The patient have ecchymosis to the left side of the neck there is fluctuation and there is no specific skin induration but there is a hematoma extending from the mid anterior cervical line to almost the jugular area mostly external jugular, with discoloration that is between green and purple, there is no open wound there is no pulsation , and there is no thrill Eye: Pupils are equal, round and EOMI. No scleral icterus. Ears, Nose, Mouth, and Throat: TM are clear, no nasal mucosal hypertrophy. Oral mucosa is moist, no posterior oropharynx erythema, uvula is mid-line Cardiovascular: Regular Rate and Rhythm without murmur, gallop or rub. Respiratory: No accessory muscle use or respiratory distress. Lungs are clear to auscultation, no wheezing, rales or rhonchi Chest Wall: no tenderness Back: No midline thoracic or lumbar vertebral tenderness. No CVA tenderness Musculoskeletal: normal ROM, no calf or popliteal tenderness, no lower extremity edema/swelling GI: Abdomen is soft, non-distended. Normal bowel sounds. No masses appreciated. No tenderness to palpation. No rebound, guarding, or rigidity noted. Neurological: A&O x4. No cranial nerve dysfunction observed. No truncal ataxia. Moves all extremities. Sensation intact. Psychiatric: Cooperative and interactive. Normal mood and affect. Skin examination showed that the patient have multiple ecchymosis to his right forearm due to IV access few days ago when he was in the hospital Constitutional Vital Signs, click to edit/add: Last Vital Signs Temp 98.2 F 10/11/23 14:04 Pulse 60 10/11/23 16:55 Resp 14 10/11/23 16:55 BP 152/75 H 10/11/23 16:55 Pulse Ox 99 10/11/23 16:55 O2 Del Method Room Air 10/11/23 16:55 Course Vital Signs Vital signs: Vital Signs Temperature 98.2 F 10/11/23 14:04 Pulse Rate 67 10/11/23 14:04 Respiratory Rate 18 10/11/23 14:04 Blood Pressure 144/86 H 10/11/23 14:04 Pulse Oximetry 98 10/11/23 14:04 Temperature 98.2 F 10/11/23 14:04 Pulse Rate 60 10/11/23 16:55 Respiratory Rate 14 10/11/23 16:55 Blood Pressure 152/75 H 10/11/23 16:55 Pulse Oximetry 99 10/11/23 16:55 Oxygen Delivery Method Room Air 10/11/23 16:55 Medical Decision Making MDM Narrative Medical decision making narrative: The patient CBC and chemistry showed no acute pathology and a CAT scan that was done without contrast with a history of kidney disease that was resolving showed no acute pathology that is significant for the patient current presentation The patient bruises mostly resolving and right now there is no further finding on the CAT scan the patient will just continue supportive care The patient is to follow up with primary care physician in next 2-3 days or to return to the emergency department should any of the signs or symptoms worsen or new symptoms develop. The patient agrees with the following Diagnosis and Treatment plan and the patient will be discharged home. Lab Data Labs: Lab Results 10/11/23 Range/Units 14:25 WBC 9.6 (4.0-11.0) 10^3/uL RBC 3.73 L (4.70-6.10) 10^6/uL Hgb 11.9 L (14.0-18.0) g/dL Hct 36.6 L (42.0-54.0) % MCV 98.1 H (80.0-94.0) fL MCH 31.9 (25.9-34.0) pg MCHC 32.5 (29.9-35.2) g/dL RDW 14.0 (11.0-15.0) % Plt Count 157 (150-450) 10^3/uL MPV 11.1 (9.5-13.5) fL Neut % (Auto) 74.5 (43.0-75.0) % Lymph % (Auto) 14.3 L (20.5-60.0) % [place] % (Auto) 7.1 (1.7-12.0) % Eos % (Auto) 3.1 (0.9-7.0) % Baso % (Auto) 0.6 (0.2-2.0) % Neut # (Auto) 7.2 H (1.4-6.5) 10^3/uL Lymph # (Auto) 1.4 (1.2-3.8) 10^3/uL [place] # (Auto) 0.7 (0.3-0.8) 10^3/uL Eos # (Auto) 0.3 (0.0-0.7) 10^3/uL Baso # (Auto) 0.1 (0.0-0.1) 10^3/uL Abs Immat Gran (auto) 0.04 H (0.00-0.03) 10^3/uL Imm/Tot Granulo (auto) 0.4 (0.0-0.5) % PT 10.8 (9.0-11.6) sec INR 1.02 Sodium 142 (136-145) mmol/L Potassium 4.0 (3.5-5.1) mmol/L Chloride 107 (98-107) mmol/L Carbon Dioxide 31.4 (21.0-32.0) mmol/L Anion Gap 7.6 BUN 30.0 H (7.0-18.0) mg/dL Creatinine 1.63 H (0.70-1.30) mg/dL Est GFR ( Amer) 49 L (>=60) Est GFR (Non-Af Amer) 40 L (>=60) BUN/Creatinine Ratio 18.4 Glucose 199 H (74-106) mg/dL Calcium 8.1 L (8.5-10.1) mg/dL Total Bilirubin 0.7 (0.2-1.0) mg/dL AST 12 L (15-37) U/L ALT 24 (16-63) U/L Alkaline Phosphatase 82 (46-116) U/L Total Protein 6.1 L (6.4-8.2) g/dL Albumin 2.9 L (3.4-5.0) g/dL Globulin 3.2 g/dL Albumin/Globulin Ratio 0.9 Discharge Plan Discharge Stand Alone Forms: Portal Instructions Chief Complaint: Wound/Laceration Clinical Impression: Ecchymosis Patient Disposition: Home, Self-Care Time of Disposition Decision: 16:34 Condition: Good Prescriptions / Home Meds: No Action allopurinol 300 mg tablet 300 mg PO DAILY docusate sodium 100 mg capsule 100 mg PO DAILY PRN (Reason: constipation) donepezil 10 mg tablet 10 mg PO BEDTIME fluoxetine 20 mg capsule 20 mg PO DAILY gabapentin 100 mg capsule 200 mg PO TID glipizide 10 mg tablet 10 mg PO BID lidocaine 5 % adhesive patch,medicated 1 patch topical Q24H Rx Instructions: BACK meloxicam 15 mg tablet 15 mg PO BEDTIME methocarbamol 500 mg tablet 500 mg PO BEDTIME omeprazole 40 mg capsule,delayed release(DR/EC) 40 mg PO DAILY solifenacin 10 mg tablet 10 mg PO DAILY tamsulosin 0.4 mg capsule 0.4 mg PO DAILY candesartan [Atacand] 32 mg tablet 32 mg PO DAILY Qty: 30 11RF Print Language: Lithuanian Instructions: Ecchymosis (ED) Referrals: JASON CRUZ [Primary Care Provider] - 1 week Discharge Date/Time: 10/11/23 17:07
[2023-10-11 14:47] LABS: Alanine Aminotransferase 24 U/L (16-63); Albumin Globulin Ratio 0.9; Albumin Level 2.9 g/dL (3.4-5.0); Alkaline Phosphatase 82 U/L (46-116); Anion Gap 7.6; Aspartate Amino Transferase 12 U/L (15-37); BUN Creatinine Ratio 18.4; Bilirubin Total 0.7 mg/dL (0.2-1.0); Calcium 8.1 mg/dL (8.5-10.1); Carbon Dioxide 31.4 mmol/L (21.0-32.0); Chloride 107 mmol/L (98-107); Estimated GFR (African America 49 (>=60); Estimated GFR (Non-African Ame 40 (>=60); Globulin 3.2 g/dL; Glucose 199 mg/dL (74-106); Sodium 142 mmol/L (136-145); Total Protein 6.1 g/dL (6.4-8.2)
[2023-10-11 14:48] LABS: INR 1.02; Prothrombin Time 10.8 sec (9.0-11.6)
--- NOTE | 2023-10-11 15:08 | CT_ITS ---
[address] [address] Patient Name: NAT MOORE MRN: [id number] date: 1940 Sex: M Assigned Patient Location: ER Current Patient Location: Accession/Order Number: [id number] Exam Date: 10/11/2023 15:16 Report Date: 10/11/2023 16:25 At the request of: NOEL LAINEZ Procedure: CT soft tissue neck wo con EXAM: CT soft tissue neck wo con HISTORY: left neck ecchymosis COMPARISON: CT C-spine 10/06/2023. TECHNIQUE: CT soft tissue neck without contrast. Axial scans with reformatted coronal sagittal images. Individualized dose reduction used for this exam. FINDINGS: [Left parotid gland slightly larger right and there is stranding of the adjacent subcutaneous tissues without discrete subcutaneous fluid collection or hematoma. No calcification within the gland or along the course of the duct. Thickening of the adjacent skin and muscle noted. Findings most likely inflammatory, correlate clinically. Could be parotiditis. Soft tissues otherwise unremarkable including tongue, nasopharynx and right neck. Normal-appearing epiglottis. No prevertebral edema or airway encroachment. Normal-appearing submandibular glands. Small lymph nodes without adenopathy. Lower neck including larynx and thyroid unremarkable. Apices and upper mediastinum unremarkable. Degenerative changes throughout the cervical spine most prominent C4-5 C5-6 C6-7 unchanged. No suspicious bone lesion. Mild carotid arterial vascular calcification. Visualized brain unremarkable. Mastoid middle ear cavities clear. Small amount of mucosal thickening in the inferior anterior left maxillary sinus is new. Ethmoid thickening unchanged. CT/CT soft tissue neck wo con IMPRESSION: 1. Subcutaneous stranding superficial to left parotid gland which is mildly prominent and heterogeneous. Nonspecific but could be due to parotiditis. I do not see calcification within the gland or along the duct. There is no dominant fluid collection or hematoma. 2. Other soft tissue findings unremarkable. No adenopathy. Normal-appearing submandibular gland and right parotid gland. Electronically authenticated by: ESPERANZA COLON Date: 10/11/2023 16:25
[2023-10-11 16:55] VITALS: BP 152/75; PULSE 60; O2SAT 99
== END 2023-10-11 17:07 | disposition home or self-care (01) ==
PROVIDERS: Emergency Provider Emergency Medicine; PCP Internal Medicine
DX: R58 Hemorrhage, not elsewhere classified (principal)
CPT/HCPCS: 36415; 70490; 80053; 85025; 85610; 99284

== ENCOUNTER 2023-10-26 13:11 | Emergency (ER) | payer MEDICARE, SELFPAY ==
[2023-10-26] VITALS (15 sets, daily range): BP systolic 150–190; BP diastolic 72–85; PULSE 51–68; TEMP 36.4; O2SAT 98–100; BMI 36.9
--- OUTSIDE RECORDS SUMMARY | 2023-10-26 13:22 | XMS_ITS | CCD ---
Author Organization [facility] Care Team Providers Care Marketing Administrator Name Role Phone JUAN PABLO ALANIZ Primary Care Physician [phone] DR JUAN PABLO ALANIZ Primary Care Unavailable [...] VINH Freeman Admitting Unavailable HOLCOMB ., DR VIHN Freeman Attending Unavailable ALANIZ, DR GOMEZ Primary [...] Unavailable ANTHONY, DR GOMEZ Primary Care Unavailable HIGHLANDER, PETER D Admitting Unavailable HIGHLANDER, PETER D Attending Unavailable ALANIZ, DR GOMEZ Primary Care Unavailable ZIAMOL, DR SAURABH Schultz Consulting Unavailable OMAR, DR [...] Admitting Unavailable HIGHLANDER, PETER D Attending Unavailable Orzefausto, Marianela Rodriguez Attending Unavailable Orzech, Marianela X Attending Unavailable CAIT PINOT Attending Unavailable CAIT PINTO Attending Unavailable JUAN PABLO ALANIZ Attending Unavailable JUAN PABLO ALANIZ Attending Unavailable JUAN PABLO ALANIZ Attending Unavailable JUAN PABLO ALANIZ Attending Unavailable JEFFREY GABRIEL Attending Unavailable CHET SANDOVAL Attending Unavailable CHET SANDOVAL Attending Unavailable Allergies Allergy Classification Reported Allergen(s) Allergy Type Date of Onset Reaction(s) Facility (9 sources) Penicillin; Translations: [penicillin] Drug Allergy 12-01-2021 Hives [facility] (2 sources) Penicillins Drug allergy (disorder) [facility] Repository Medications Current Medications Medication Drug Class(es) Dates Sig (Normalized) Sig (Original) allopurinol 300 mg oral tablet (7 sources) Xanthine Oxidase Inhibitor Start: 01-17-2021 take 1 mg by mouth once daily allopurinol 300 mg Tab mg tab(s), Oral, Daily, Refills(s) 0 Start Date: 01/17/21 Status: Ordered dicyclomine hydrochloride 20 mg oral tablet (6 sources) Anticholinergic Start: 01-17-2021 take 1 mg by mouth four times daily dicyclomine 20 mg Tab mg tab(s), Oral, QID, Refills(s) 0 Start Date: 01/17/21 Status: Ordered Docusate (7 sources) Start: 01-17-2021 docusate sodium Refills(s) 0 Start Date: 01/17/21 Status: Ordered donepezil hydrochloride 5 mg oral tablet (7 sources) Start: 01-17-2021 take 1 mg by mouth once daily at bedtime donepezil 5 mg Tab mg tab(s), Oral, Once a day (at bedtime), Refills(s) 0 Start Date: 01/17/21 Status: Ordered empagliflozin 10 mg / linagliptin 5 mg oral tablet (7 sources) Dipeptidyl Peptidase 4 Inhibitor, Sodium-Glucose Cotransporter 2 Inhibitor Start: 01-17-2021 take 1 tablet by mouth once daily in the morning Glyxambi 10 mg-5 mg oral tablet tab(s), Oral, qAM, Refill(s) 0 Start Date: 01/17/21 Status: Ordered gabapentin 100 mg oral capsule (7 sources) Anti-epileptic Agent Start: 01-17-2021 take 1 mg by mouth three times daily gabapentin 100 mg Cap mg cap(s), Oral, TID, Refills(s) 0 Start Date: 01/17/21 Status: Ordered glipiZIDE 10 mg oral tablet (7 sources) Sulfonylurea Start: 01-17-2021 take 1 mg by mouth once daily glipiZIDE 10 mg Tab mg tab(s), Oral, Daily, Refills(s) 0 Start Date: 01/17/21 Status: Ordered 24 hr metoprolol succinate 100 mg extended release oral tablet (7 sources) beta-Adrenergic Callum Start: 01-17-2021 take 1 mg by mouth once daily metoprolol 100 mg ER Tab mg tab(s), Oral, Daily, Refills(s) 0 Start Date: 01/17/21 Status: Ordered solifenacin succinate 10 mg oral tablet (4 sources) Cholinergic Muscarinic Antagonist Start: 10-01-2023 take 1 tablet by mouth once daily solifenacin 10 mg Tab 10 mg = 1 tab(s), Oral, Daily, # 30 tab(s), Refills(s) 11, Pharmacy: [email or web address], 167, cm, 09/16/22 15:10:00 EDT, Height/Length Dosing, 120, kg, 09/16/22 15:10:00 EDT, Weight Dosing Start Date: 10/01/23 Status: Ordered Start: 09-16-2022 End: 09-11-2023 take 1 tablet by mouth once daily Vesicare 10 mg Tab 10 mg = 1 tab(s), Oral, Daily, X 30 day(s), # 30 tab(s), Refills(s) 11, Pharmacy: [email or web address], 167, cm, 09/16/22 15:10:00 EDT, Height/Length Dosing, 120, kg, 09/16/22 15:10:00 EDT, Weight Dosing Start Date: 09/16/22 Stop Date: 09/11/23 Status: Ordered Start: 04-26-2022 take 1 tablet by shannon th once daily Vesicare 5 mg Tab 5 mg = 1 tab(s), Oral, Daily, # 30 tab(s), Refills(s) 11, Pharmacy: [email or web address], 174, cm, 12/03/21 13:40:00 EDT, Height/Length Dosing, 112, kg, 12/03/21 13:40:00 EDT, Weight Dosing Start Date: 04/26/22 Status: Ordered tamsulosin hydrochloride 0.4 mg oral capsule (7 sources) alpha-Adrenergic Callum Start: 10-01-2023 take 1 capsule by mouth once daily Flomax 0.4 mg Cap 0.4 mg = 1 cap(s), Oral, Daily, # 30 cap(s), Refills(s) 11, Pharmacy: [facility], 167, cm, 09/16/22 15:10:00 EDT, Height/Length Dosing, 120, kg, 09/16/22 15:10:00 EDT, Weight Dosing Start Date: 10/01/23 Status: Ordered Start: 10-09-2022 take 1 capsule by [facility] once daily Flomax 0.4 mg Cap 0.4 mg = 1 cap(s), Oral, Daily, # 30 cap(s), Refills(s) 11, called to pharmacy (Rx) Start Date: 10/09/22 Status: Ordered Start: 10-25-2021 take 1 capsule by [facility] once daily Flomax 0.4 mg Cap 0.4 mg = 1 cap(s), Oral, Daily, # 90 cap(s), Refills(s) 3, Pharmacy: [facility], 174, cm, 09/03/21 13:40:00 EDT, Height/Length Dosing, 112.5, kg, 09/03/21 13:40:00 EDT, Weight Dosing Start Date: 10/25/21 Status: Ordered Start: 07-03-2021 take 1 capsule by [facility] once daily Flomax 0.4 mg Cap 0.4 mg = 1 cap(s), Oral, Daily, # 30 cap(s), Refills(s) 3, Pharmacy: [facility], 174, cm, 07/17/20 5:39:00 EDT, Height/Length Dosing, 112.5, kg, 07/17/20 5:39:00 EDT, Weight Dosing Start Date: 07/03/21 Status: Ordered 24 hr tolterodine tartrate 4 mg extended release oral capsule (4 sources) Cholinergic Muscarinic Antagonist Start: 01-17-2021 take 1 capsule by mouth once daily tolterodine 4 mg Cap-ER 4 mg = 1 cap(s), Oral, Daily, # 30 cap(s), Refills(s) 11, Pharmacy: [facility], 174, cm, 09/03/21 13:40:00 EDT, Height/Length [...] Onset: 10-04-2021 Chronic Diabetes mellitus without complication (8 sources) Diabetes mellitus; Translations: [Type 2 diabetes mellitus without complications] Onset: 07-31-2022 07-17-2020 Chronic Diverticulosis and diverticulitis (7 sources) Diverticulitis 01-17-2021 Chronic Esophageal disorders (1 source) Gastro-esophageal reflux disease without esophagitis; Translations: [GERD WITHOUT ESOPHAGITIS] Onset: 12-11-2021 Chronic Essential hypertension (8 sources) Hypertensive disorder; Translations: [Essential (primary) hypertension] Onset: 03-06-2022 01-17-2021 Chronic Genitourinary symptoms and ill-defined conditions (10 sources) Urge incontinence; Translations: [Urge incontinence of urine] Onset: 12-03-2021 Chronic Genitourinary symptoms and ill-defined conditions (20 sources) Increased frequency of urination; Translations: [Frequency of micturition] Onset: 09-03-2021 Episodic Hyperplasia of prostate (15 sources) Benign prostatic hypertrophy with outflow obstruction; Translations: [Benign prostatic hyperplasia with lower urinary tract symptoms] Onset: 09-03-2021 Chronic Other aftercare (1 source) Other halfway (current) drug therapy; Translations: [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] Onset: 07-31-2022 Episodic Other aftercare (1 source) 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; Translations: [RESIDENTIAL USE ORAL HYPOGLYCEMIC DX] Onset: 07-31-2022 Episodic Other connective tissue disease (7 sources) Calcaneal spur 01-17-2021 Episodic Other connective tissue disease (4 sources) Other muscle spasm; Translations: [OTHER MUSCLE SPASM] Onset: 05-23-2022 Episodic Other diseases of veins and lymphatics (1 source) Lymphedema, not elsewhere classified; Translations: [LYMPHEDEMA NOT ELSEWHERE CLASSIFIED] Onset: 12-11-2021 Chronic Other lower respiratory disease (7 sources) Nodule of lung 01-17-2021 Episodic Other lower respiratory disease (1 source) Shortness of breath; Translations: [SHORTNESS OF BREATH] Onset: 07-31-2022 Episodic Other nervous system disorders (7 sources) Neuropathy 01-17-2021 Chronic Other nervous system disorders (1 source) Other chronic pain; Translations: [OTHER CHRONIC PAIN] Onset: 04-18-2022 Chronic Other skin disorders (5 sources) Nail dystrophy; Translations: [NAIL DYSTROPHY] Onset: 04-30-2022 Episodic Residual codes; unclassified (7 sources) Amnesia 01-17-2021 Episodic Residual codes; unclassified (7 sources) Swelling - edema - symptom 01-17-2021 Episodic Screening and history of mental health and substance abuse codes (1 source) Personal history of nicotine dependence; Translations: [PERSONAL HISTORY OF NICOTINE DEPEND] Onset: 07-31-2022 Episodic Spondylosis; intervertebral disc disorders; other back problems (10 sources) Other intervertebral disc degeneration, lumbar region; Translations: [Spondylosis without myelopathy or radiculopathy, lumbar region] Onset: 12-13-2021 Chronic Substance-related disorders (7 sources) Smoker 01-19-2021 Chronic Comment on above: Added secondary to d ocumentation in Social History. Unclassified (7 sources) Finding of sensation of bladder 01-19-2021 [...] OF COVID-19] Onset: 03-06-2022 Unclassified (1 source) RESIDENTIAL INJECT NONINSULN ANTIDIAB; Translations: [RESIDENTIAL INJECT NONINSULN ANTIDIAB] Onset: 03-02-2022 Past or [...] Value Interpretation Reference Range Facility Patient Letter FTon 2023 Patient Letter FT Patient Letter FT October 14, [address] [place] [address] : 1940 Dear Nat, You missed your scheduled appointment on: October 14, 2023. Please note our appointment slots fill quickly. [...] any future cancellations. Sincerely, [facility] [address], [place] [address] [facility] Patient Letter FTon 2023 Patient Letter [facility] (Inserted Image. Yasmeen ble to display) May 13, 2023 NAT Tran [facility] [address] [place] [address] : 1940 Dear Nat, You missed your [...] [facility] [address], [place] [address] Normal [facility] BNPon 07-27-2022 Natriuretic peptide B (Bld) [Mass/Vol] 178.0 pg/mL Normal <=1,800.0 [facility] Comment on above: Performed By: #### C MP, BNP, CMADM #### [facility] [address] [address] [address] Loyd Parks CARDIAC SPARKLE ADMITon 023 CK [Catalytic activity/Vol] 50 U/L Normal 39-308 [facility] Comment on above: Performed By: #### C MP, BNP, CMADM #### [facility] [address] [place] [address] Dr. Loyd Parks CK.MB [Mass/Vol] 0.83 ng/mL Normal <=3.60 [facility] Comment on above: Performed By: #### C MP, BNP, CMADM #### [facility] [address] [place] [address] Dr. Loyd Parks HSTROP 6.3 pg/mL Normal 4.0-76.1 [facility] Comment on above: Result Comment: CUT- OFF POINTS HAVE BEEN ESTABLISHED BASED ON THE FOURTH UNIVERSAL DEFINITIONS OF MYOCARDIAL INFARCTION. THE UPPER REFERENCE LIMIT (URL) OF TROPONIN, DEFINED THE 99TH PERCENTILE OF cTnI DISTRIBUTION IN A REFERENCE POPULATION, HAS BEEN CONFIRMED THE DECISION THRESHOLD FOR CT DIAGNOSIS. Performed By: #### C MP, BNP, CMADM #### [facility] [address] [place] [address] Dr. Loyd Parks WM 121 ng/mL Critically high 16-96 [facility] Comment on above: Performed By: #### C MP, BNP, CMADM #### [facility] [address] [place] [address] Dr. Loyd Parks CBC AUTO DIFFon 07-27-2022 BASO # 0.1 103/ul Normal 0.0-0.1 [facility] Comment on above: Performed By: #### C BC #### [facility] [address] [place] [address] Dr. Loyd Parks Basophils/100 WBC (Bld) 0.6 % Normal 0.2-2.0 [facility] Comment on above: Performed By: #### C BC #### [facility] [address] [place] [address] Dr. Loyd Parks EO # 0.5 103/ul Normal 0.0-0.7 [facility] Comment on above: Performed By: #### C BC #### [facility] [address] [place] [address] Dr. Loyd Parks Eosinophils/100 WBC (Bld) 4.8 % Normal 0.9-7.0 [facility] Comment on above: Performed By: #### C BC #### [facility] [address] [place] [address] Dr. Loyd Parks Erythrocyte distribution width (RBC) [Ratio] 13.5 % Normal 11.0-15.0 [facility] Comment on above: Performed By: #### C BC #### [facility] [address] [place] [address] Dr. Loyd Parks Hematocrit (Bld) [Volume fraction] 39.7 % Critically low 42.0-54.0 [facility] Comment on above: Performed By: #### C BC #### [facility] [address] [place] [address] Dr. Loyd Parks Hemoglobin (Bld) [Mass/Vol] 13.1 g/dL Critically low 14.0-18.0 [facility] Comment on above: Performed By: #### C BC #### [facility] [address] [place] [address] Dr. Loyd Parks IG # 0.05 10e3/ul Critically high 0.00-0.03 [facility] Comment on above: Performed By: #### C BC #### [facility] [address] [place] [address] Dr. Loyd Parks IG % 0.5 % Normal 0.0-0.5 [facility] Comment on above: Performed By: #### C BC #### [facility] [address] [place] [address] Dr. Loyd Parks LYMPH # 1.4 103/ul Normal 1.2-3.8 [facility] Comment on above: Performed By: #### C BC #### [facility] [address] [place] [address] Dr. oLyd Parks Lymphocytes/100 WBC (Bld) 14.1 % Critically low 20.5-60.0 [facility] Comment on above: Performed By: #### C BC #### [facility] [address] [place] [address] Dr. Loyd Parks MANUAL DIFF REQ NO Normal [facility] Comment on above: Performed By: #### C BC #### [facility] [address] [place] [address] Dr. Loyd Parks MCH (RBC) [Entitic mass] 31.6 pg Normal 25.9-34.0 [facility] Comment on above: Performed By: #### C BC #### [facility] [address] [place] [address] Dr. Loyd Parks MCHC (RBC) [Mass/Vol] 33.0 g/dL Normal 29.9-35.2 [facility] Comment on above: Performed By: #### C BC #### [facility] [address] [place] [address] Dr. Loyd Parks MCV (RBC) [Entitic vol] 95.7 fL Critically high 80.0-94.0 [facility] Comment on above: Performed By: #### C BC #### [facility] [address] [place] [address] Dr. Loyd Parks MONO # 1.0 103/ul Critically high 0.3-0.8 [facility] Comment on above: Performed By: #### C BC #### [facility] [address] [place] [address] Dr. Loyd Parks Monocytes/100 WBC (Bld) 9.7 % Normal 1.7-12.0 [facility] Comment on above: Performed By: #### C BC #### [facility] [address] [place] [address] Dr. Loyd Parks NEUT # 7.2 103/ul Critically high 1.4-6.5 [facility] Comment on above: Performed By: #### C BC #### [facility] [address] [place] [address] Dr. Loyd Parks Neutrophils/100 WBC (Bld) 70.3 % Normal 43.0-75.0 [facility] Comment on above: Performed By: #### C BC #### [facility] [address] [place] [address] Dr. Loyd Parks Platelet mean volume (Bld) [Entitic vol] 10.8 fL Normal 9.5-13.5 [facility] Comment on above: Performed By: #### C BC #### [facility] [address] [place] [address] Dr. Loyd Parks PLT 199 103/ul Normal 150-450 [facility] Comment on above: Performed By: #### C BC #### [facility] [address] [place] [address] Dr. Loyd Parks RBC 4.15 106/ul Critically low 4.70-6.10 [facility] Comment on above: Performed By: #### C BC #### [facility] [address] [place] [address] Dr. Loyd Parks WBC 10.2 103/ul Normal 4.0-11.0 [facility] Comment on above: Performed By: #### C BC #### [facility] [address] [place] [address] Dr. Loyd Parks CULTURE BLOODon 07-27-2022 Microscopic examination of blood, culture Culture Observations: NO GROWTH AT 5 DAYS. Normal [facility] Comment on above: Performed By: #### E RUR #### [facility] [address] [place] [address] Dr. Loyd Parks [facility]on SARS-CoV-2 (COVID-19) RNA SAUNDRA+probe Ql (Unsp spec) Not detected Normal NOT DETECTED [facility] Comment on above: Result Comment: This test is not yet approved or cleared by the [place] FDA. When there are no FDA-approved or cleared tests available, and other criteria are met, FDA can make tests available under an emergency access mechanism called an Emergency Use Authorization (EUA). The EUA for this test is supported by the Senior Market Research Analyst of Health and Human Service's (HHS's) declaration [...] SARS-CoV-2. Performed By: #### E RUR #### [facility] [address] [place] [address] Dr. Loyd Parks LACTATE/LACTIC ACIDon 2022 Lactate [Moles/Vol] 2.2 mmol/L Critically high 0.4-2.0 [facility] Comment on above: Performed By: #### C MP, BNP, CMADM #### [facility] [address] [place] [address] Dr. Loyd Parks PROF 14(COMP METB)on 023 Albumin [Mass/Vol] 3.3 g/dL Critically low 3.4-5.0 [facility] Comment on above: Performed By: #### C MP, BNP, CMADM #### [facility] [address] [place] [address] Dr. Loyd Parks Albumin/Globulin [Mass ratio] 0.9 {ratio} Normal [facility] Comment on above: Performed By: #### C MP, BNP, CMADM #### [facility] [address] [place] [address] Dr. Loyd Parks ALP [Catalytic activity/Vol] 91 U/L Normal 46-116 [facility] Comment on above: Performed By: #### C MP, BNP, CMADM #### [facility] [address] [place] [address] Dr. Loyd Parks ALT [Catalytic activity/Vol] 18 U/L Normal 16-63 [facility] Comment on above: Performed By: #### C MP, BNP, CMADM #### [facility] [address] [place] [address] Dr. Loyd Parks Anion gap [Moles/Vol] 12.2 mmol/L Normal [facility] Comment on above: Performed By: #### C MP, BNP, CMADM #### [facility] [address] [place] [address] Dr. Loyd Parks AST [Catalytic activity/Vol] 15 U/L Normal 15-37 [facility] Comment on above: Performed By: #### C MP, BNP, CMADM #### [facility] [address] [place] [address] Dr. Loyd Parks Bilirubin [Mass/Vol] 0.4 mg/dL Normal 0.2-1.0 [facility] Comment on above: Performed By: #### C MP, BNP, CMADM #### [facility] [address] [place] [address] Dr. Loyd Parks Calcium [Mass/Vol] 8.7 mg/dL Normal 8.5-10.1 [facility] Comment on above: Performed By: #### C MP, BNP, CMADM #### [facility] [address] [place] [address] Dr. Loyd Parks Chloride [Moles/Vol] 105 mmol/L Normal 98-107 [facility] Comment on above: Performed By: #### C MP, BNP, CMADM #### [facility] [address] [place] [address] Dr. Loyd Parks CO2 [Moles/Vol] 28.0 mmol/L Normal 21.0-32.0 [facility] Comment on above: Performed By: #### C MP, BNP, CMADM #### [facility] [address] [address] [address] Loyd Parks Creatinine [Mass/Vol] 2.25 mg/dL Critically high 0.70-1.30 [facility] Comment on above: Performed By: #### C MP, BNP, CMADM #### [facility] [address] [address] [address] Loyd Parks EGFR-AF OMANI 34 mL/min/1.73m2 Critically low >=60 [facility] Comment on above: Performed By: #### C MP, BNP, CMADM #### [facility] [address] [address] [address] Loyd Parks EGFR-NON AF OMANI 28 mL/min/1.73m2 Critically low >=60 [facility] Comment on above: Performed By: #### C MP, BNP, CMADM #### [facility] [address] [address] [address] Loyd Parks Globulin (S) [Mass/Vol] 3.8 g/dL Normal [facility] Comment on above: Performed By: #### C MP, BNP, CMADM #### [facility] [address] [address] [address] Loyd Parks Glucose [Mass/Vol] 88 mg/dL Normal 74-106 [facility] Comment on above: Performed By: #### C MP, BNP, CMADM #### [facility] [address] [address] [address] Loyd Parks Potassium [Moles/Vol] 4.2 mmol/L Normal 3.5-5.1 [facility] Comment on above: Performed By: #### C MP, BNP, CMADM #### [facility] [address] [address] [address] Loyd Parks Protein [Mass/Vol] 7.1 g/dL Normal 6.4-8.2 [facility] Comment on above: Performed By: #### C MP, BNP, CMADM #### [facility] [address] [address] [address] Loyd Parks Sodium [Moles/Vol] 141 mmol/L Normal 136-145 [facility] Comment on above: Performed By: #### C MP, BNP, CMADM #### [facility] [address] [place] [address] Dr. Loyd Parks Urea nitrogen [Mass/Vol] 36.0 mg/dL Critically high 7.0-18.0 [facility] Comment on above: Performed By: #### C MP, BNP, CMADM #### [facility] [address] [place] [address] Dr. Loyd Parks Urea nitrogen/Creatinine [Mass ratio] 16.0 mg/mg Normal [facility] Comment on above: Performed By: #### C MP, BNP, CMADM #### [facility] [address] [place] [address] Dr. Loyd Parks PROTIMEon 07-27-2022 INR Coag (PPP) [Relative time] 0.95 {INR} Normal [facility] Comment on above: Performed By: #### P T, PTT #### [facility] [address] [place] [address] Dr. Loyd Parks INR GUIDELINES SEE BELOW Normal [facility] Comment on above: Result Comment: MARIE RED INR: 2.0 - 3.0 CONDITIONS NOT LISTED BELOW 2.5 - 3.5 FOR PROSTHETIC HEART VALVE REPLACEMENT 2.5 - 3.5 RECURRENT THROMBOSIS Performed By: #### P T, PTT #### [facility] [facility] [address] [place] [address] Dr. Loyd Parks PT Coag (PPP) [Time] 10.1 s Normal 9.0-11.6 [facility] Comment on above: Performed By: #### P T, PTT #### [facility] [address] [place] [address] Dr. Loyd Parks PTTon 07-27-2022 aPTT Coag (Bld) [Time] 27.3 s Normal 22.3-36.2 [facility] Comment on above: Performed By: #### P T, PTT #### [facility] [address] [place] [address] Dr. Loyd Parks SYMPTOMATIC COVID-19 ANTIGEN on 07-27-2022 EUA Statement SEE BELOW Normal [facility] Comment on above: Result Comment: This [...] sooner. Performed By: #### C VDAGS #### [facility] [address] [place] [address] Dr. Loyd Parks SARS-CoV-2 (COVID-19) RNA SAUNDRA+probe Ql (Unsp spec) Negative Normal NEGATIVE [facility] Comment on above: Performed By: #### C VDAGS #### [facility] [address] [address] [address] Loyd Parks XR CHEST 2 Von [...] ELIUD KAUR Date: 2022-07-26 22:19 Normal [facility] POINT OF CARE GLUCOSEon 03-25 Glucose [Mass/Vol] 102 mg/dL Normal 74-106 [facility] Comment on above: Performed By: #### C MP, BNP, CMADM #### [facility] [address] [place], [place] [address] Dr. Loyd Parks ER URINE PROFILEon 2 Bilirubin Ql (U) Negative Normal NEGATIVE [facility] Comment on above: Performed By: #### E RUR #### [facility] [address] [place] [address] Dr. Loyd Parks Clarity (U) CLEAR Normal CLEAR [facility] Comment on above: Performed By: #### E RUR #### [facility] [address] [place] [address] Dr. Loyd Parks Color (U) LT. YELLOW Normal YELLOW [facility] Comment on above: Performed By: #### E RUR #### [facility] [address] [place] [address] Dr. Loyd CONWAY A micrscopic examination will be performed if indicated. Normal [facility] Comment on above: Performed By: #### E RUR #### [facility] [address] [place] [address] Dr. Loyd Parks Glucose Ql (U) 100 mg/dl Abnormal NEGATIVE [facility] Comment on above: Performed By: #### E RUR #### [facility] [address] [place] [address] Dr. Loyd Parks Hemoglobin Ql (U) Negative Normal NEGATIVE [facility] Comment on above: Performed By: #### E RUR #### [facility] [address] [place] [address] Dr. Loyd Parks Ketones Ql (U) Negative Normal NEGATIVE [facility] Comment on above: Performed By: #### E RUR #### [facility] [address] [place] [address] Dr. Loyd Parks LEUKOCYTES Negative Normal NEGATIVE [facility] Comment on above: Performed By: #### E RUR #### [facility] [address] [place] [address] Dr. Loyd Parks Nitrite Ql (U) Negative Normal NEGATIVE [facility] Comment on above: Performed By: #### E RUR #### [facility] [address] [place] [address] Dr. Loyd Parks pH (U) 5.5 [pH] Normal 5-9 [facility] Comment on above: Performed By: #### E RUR #### [facility] [address] [place] [address] Dr. Loyd Parks SPEC GRAVITY 1.015 Normal 1.005-<=1.025 [facility] Comment on above: Performed By: #### E RUR #### [facility] [address] [place] [address] Dr. Loyd Parks UA PROTEIN Negative Normal NEGATIVE/ TRACE [facility] Comment on above: Performed By: #### E RUR #### [facility] [address] [place] [address] Dr. Loyd Parks UR MICRO IND NOT INDICATED Normal [facility] Comment on above: Performed By: #### E RUR #### [facility] [address] [place] [address] Dr. Loyd Parks Urobilinogen Qn (U) 0.2 {Malcolm'U}/dL Normal 0.2 - 1. 0 [facility] Comment on above: Performed By: #### E RUR #### [facility] [address] [place] [address] Dr. Loyd Parks GROUP A STREP CULTUREon 02-21 S. pyogenes Ag Ql (Unsp spec) Culture Observations: NEGATIVE FOR GROUP A STREPTOCOCCUS. Normal [facility] Comment on above: Performed By: #### S SCRN, GRASTCX #### [facility] [address] [place] [address] Dr. Loyd Parks STREPT SCREENon 03-03-2022 STREP SCREEN A Negative Normal NEGATIVE [facility] Comment on above: Performed By: #### S SCRN, GRASTCX #### [facility] [address] [place] [address] Dr. Loyd Parks [facility]on SARS-CoV-2 (COVID-19) RNA SAUNDRA+probe Ql (Unsp spec) Not detected Normal NOT DETECTED [facility] Comment on above: Result Comment: This test is not yet approved or cleared by the [place] FDA. When there are no FDA-approved or cleared tests available, and other criteria are met, FDA can make tests available under an emergency access mechanism called an Emergency Use Authorization (EUA). The EUA for this test is supported by the Senior Market Research Analyst of Health and Human Service's (HHS's) declaration [...] By: #### C MP, BNP, CMADM #### [facility] [address] [place] [address] Dr. Loyd Parks POINT OF CARE GLUCOSEon - Glucose [Mass/Vol] 133 mg/dL Critically high 74-106 [facility] Comment on above: Performed By: #### E RUR #### [facility] [address] [address] [address] Loyd Parks POINT OF CARE GLUCOSEon 09-0 Glucose [Mass/Vol] 75 mg/dL Normal 74-106 [facility] Comment on above: Performed By: #### E RUR #### [facility] [address] [place] [address] ABD/PELVIS WO CONon [...] SAURABH SINGH Date: 2021-09-03 08:35 Normal [facility] ER URINE PROFILEon 2 Bilirubin Ql (U) Negative Normal NEGATIVE [facility] Comment on above: Performed By: #### E RUR #### [facility] [address] [place], [place] [address] Dr. Loyd Parks Clarity (U) CLEAR Normal CLEAR [facility] Comment on above: Performed By: #### E RUR #### [facility] [address] [address] [address] Loyd Parks Color (U) LT. YELLOW Normal YELLOW [facility] Comment on above: Performed By: #### E RUR #### [facility] [address] [place] [address] Dr. Loyd CONWAY A micrscopic examination will be performed if indicated. Normal [facility] Comment on above: Performed By: #### E RUR #### [facility] [address] [place] [address] Dr. Loyd Parks Glucose Ql (U) >1000 Abnormal NEGATIVE [facility] Comment on above: Performed By: #### E RUR #### [facility] [address] [place] [address] Dr. Loyd Parks Hemoglobin Ql (U) Negative Normal NEGATIVE [facility] Comment on above: Performed By: #### E RUR #### [facility] [address] [place] [address] Dr. Loyd Parks Ketones Ql (U) Negative Normal NEGATIVE [facility] Comment on above: Performed By: #### E RUR #### [facility] [address] [place] [address] Dr. Loyd Parks LEUKOCYTES Negative Normal NEGATIVE [facility] Comment on above: Performed By: #### E RUR #### [facility] [address] [place] [address] Dr. Loyd Parks Nitrite Ql (U) Negative Normal NEGATIVE [facility] Comment on above: Performed By: #### E RUR #### [facility] [address] [place] [address] Dr. Loyd Parks pH (U) 6.0 [pH] Normal 5-9 [facility] Comment on above: Performed By: #### E RUR #### [facility] [address] [place] [address] Dr. Loyd Parks SPEC GRAVITY 1.010 Normal 1.005-<=1.025 [facility] Comment on above: Performed By: #### E RUR #### [facility] [address] [place] [address] Dr. Loyd Parks UA PROTEIN Negative Normal NEGATIVE/ TRACE [facility] Comment on above: Performed By: #### E RUR #### [facility] [address] [place] [address] Dr. Loyd Parks UR MICRO IND NOT INDICATED Normal [facility] Comment on above: Performed By: #### E RUR #### [facility] [address] [address] [address] Loyd Parks Urobilinogen Qn (U) 0.2 {Malcolm'U}/dL Normal 0.2 - 1. 0 [facility] Comment on above: Performed By: #### E RUR #### [facility] [address] [place] [address] Dr. Loyd Parks ALCOHOLon 07-31-2020 Ethanol [Mass/Vol] mg/dL Normal [facility] Comment on above: Result Comment: FOR MEDICAL USE ONLY. . REF VALUES <10 Performed By: #### A LC ####[facility] [place] [address] CBC AND DIFFERENTIALon 07-31 % AUTOMATED IMMATURE GRAN 0.4 % Normal 0.0 - 0.9 [facility] Comment on above: Result Comment: Rylie ture Granulocyte Count (IG) includes promyelocytes, myelocytes and metamyelocytes but does not include bands. Percent differential counts (%) should be interpreted in the context of the absolute cell counts (cells/L). Performed By: #### C BCDF #### [facility] [address] [place] [address] Basophils (Bld) [#/Vol] 0.05 10*3/uL Normal 0.00 - 0.10 [facility] Comment on above: Performed By: #### C BCDF #### [facility] [address] [place] [address] Basophils/100 WBC (Bld) 0.6 % Normal 0.0 - 2.0 [facility] Comment on above: Performed By: #### C BCDF #### [facility] [address] [place] [address] Eosinophils (Bld) [#/Vol] 0.21 10*3/uL Normal 0.00 - 0.40 [facility] Comment on above: Performed By: #### C BCDF #### [facility] [address] [facility] [address] Eosinophils/100 WBC (Bld) 2.4 % Normal 0.0 - 6.0 [facility] Comment on above: Performed By: #### C BCDF #### [facility] [address] [place] [address] Erythrocyte distribution width (RBC) [Ratio] 13.2 % Normal 11.5 - 14.5 [facility] Comment on above: Performed By: #### C BCDF #### [facility] [id number] [place] [address] [place] [address] Hematocrit (Bld) [Volume fraction] 50.0 % Normal 41.0 - 52.0 [facility] Comment on above: Performed By: #### C BCDF #### [facility] [id number] [place] [address] [place] [address] Hemoglobin (Bld) [Mass/Vol] 17.3 g/dL Normal 13.5 - 17.5 [facility] Comment on above: Performed By: #### C BCDF #### [facility] [id number] [place] [address] [place] [address] Lymphocytes (Bld) [#/Vol] 1.59 10*3/uL Normal 0.80 - 3.00 [facility] Comment on above: Performed By: #### C BCDF #### [facility] [address] [place] [address] Lymphocytes/100 WBC (Bld) 17.9 % Normal 13.0 - 44.0 [facility] Comment on above: Performed By: #### C BCDF #### [facility] [address] [place] [address] MCHC (RBC) [Mass/Vol] 34.6 g/dL Normal 32.0 - 36.0 [facility] Comment on above: Performed By: #### C BCDF #### [facility] [address] [place] [address] MCV (RBC) [Entitic vol] 89 fL Normal 80 - 100 [facility] Comment on above: Performed By: #### C BCDF #### [facility] [address] [facility] [address] Monocytes (Bld) [#/Vol] 0.82 10*3/uL High 0.05 - 0.80 [facility] Comment on above: Performed By: #### C BCDF #### [facility] [address] [place] [address] Monocytes/100 WBC (Bld) 9.2 % Normal 2.0 - 10.0 [facility] Comment on above: Performed By: #### C BCDF #### [facility] [address] [place] [address] Neutrophils (Bld) [#/Vol] 6.18 10*3/uL High 1.60 - 5.50 [facility] Comment on above: Performed By: #### C BCDF #### [facility] [id number] [place] [address] [place] [address] Neutrophils/100 WBC (Bld) 69.5 % Normal 40.0 - 80.0 [facility] Comment on above: Performed By: #### C BCDF #### [facility] [id number] [place] [address] [place] [address] Platelets (Bld) [#/Vol] 215 10*3/uL Normal 150 - 450 [facility] Comment on above: Performed By: #### C BCDF #### [facility] [id number] [place] [address] [place] [address] RBC 5.59 x10E12/L Normal 4.50 - 5.90 [facility] Comment on above: Performed By: #### C BCDF #### [facility] [address] [facility] [place] [address] WBC (Bld) [#/Vol] 8.9 10*3/uL Normal 4.4 - 11.3 [facility] Comment on above: Performed By: #### C BCDF #### [facility] [address] [facility] [place] [address] CHEST 1 VIEWon 07-31-2020 CHEST 1 VIEW STUDY: Chest Radiograph; 07/30/2020 10:53 PM INDICATION: Shortness of breath. COMPARISON: None available. ACCESSION NUMBER(S): [id number] ORDERING CLINICIAN: ZAID CUELLAR DO TECHNIQUE: Frontal chest was obtained at 2355 hours. FINDINGS: CARDIOMEDIASTINAL SILHOUETTE: Cardiomediastinal silhouette is normal in size and configuration. LUNGS: Lungs are clear. ABDOMEN: No remarkable upper abdominal findings. BONES: No acute osseous changes. IMPRESSION: No acute pulmonary abnormality. Signed by Rodrick Anna MD Electronically signed by: RODRICK ANNA MD Normal [facility] COMPREHENSIVE PANELon 2020 Albumin [Mass/Vol] 3.7 g/dL Normal 3.4 - 5.0 [facility] Comment on above: Performed By: #### C MP ####[facility] [facility] [place] [address] ALP [Catalytic activity/Vol] 80 U/L Normal 33 - 136 [facility] Comment on above: Performed By: #### C MP ####[facility] [place] [address] ALT [Catalytic activity/Vol] 12 U/L Normal 10 - 52 [facility] Comment on above: Result Comment: Jade ents treated with Sulfasalazine may generate falsely decreased results for ALT. Performed By: #### C MP ####[facility] [place] [address] Anion gap [Moles/Vol] 13 mmol/L Normal 10 - 20 [facility] Comment on above: Performed By: #### C MP ####[facility] [place] [address] AST [Catalytic activity/Vol] 12 U/L Normal 9 - 39 [facility] Comment on above: Performed By: #### C MP ####[facility] [place] [address] Bilirubin [Mass/Vol] 0.7 mg/dL Normal 0.0 - 1.2 [facility] Comment on above: Performed By: #### C MP ####[facility] [place] [address] Calcium [Mass/Vol] 9.2 mg/dL Normal 8.6 - 10.3 [facility] Comment on above: Performed By: #### C MP ####[facility] [place] [address] Chloride [Moles/Vol] 101 mmol/L Normal 98 - 107 [facility] Comment on above: Performed By: #### C MP ####[facility] [place] [address] Creatinine [Mass/Vol] 1.36 mg/dL High 0.50 - 1.30 [facility] Comment on above: Performed By: #### C MP ####[facility] [place] [address] GFR- AM. 61 mL/min/1.73m2 Normal >60 [facility] Comment on above: Result Comment: CALC ULATIONS OF ESTIMATED GFR ARE PERFORMED USING THE MDRD STUDY EQUATION FOR THE IDMS-TRACEABLE CREATININE METHODS. CLIN CHEM 2007;53:766-72 Performed By: #### C MP ####[facility] [place] [address] GFR-NON AM. 50 mL/min/1.73m2 Abnormal >60 [facility] Comment on above: Performed By: #### C MP ####[facility] [place] [address] Glucose [Mass/Vol] 390 mg/dL High 74 - 99 [facility] Comment on above: Performed By: #### C MP ####[facility] [place] [address] HCO3 (Bld) [Moles/Vol] 27 mmol/L Normal 21 - 32 [facility] Comment on above: Performed By: #### C MP ####[facility] [place] [address] Potassium [Moles/Vol] 4.1 mmol/L Normal 3.5 - 5.3 [facility] Comment on above: Performed By: #### C MP ####[facility] [place] [address] Protein [Mass/Vol] 6.8 g/dL Normal 6.4 - 8.2 [facility] Comment on above: Performed By: #### C MP ####[facility] [place] [address] Sodium [Moles/Vol] 137 mmol/L Normal 136 - 145 [facility] Comment on above: Performed By: #### C MP ####[facility] [place] [address] Urea nitrogen [Mass/Vol] 27 mg/dL High 6 - 23 [facility] Comment on above: Performed By: #### C MP ####[facility] [place] [address] CT HEAD WO CONTRASTon 2020 CT HEAD WO CONTRAST STUDY: CT Head without IV Contrast; 07/30/2020, 11:52 PM. INDICATION: Confusion, disorientation. COMPARISON: None Available. ACCESSION NUMBER(S): [id number] ORDERING CLINICIAN: ZAID CUELLAR DO TECHNIQUE: Noncontrast [...] Electronically signed by: RODRICK ANNA MD Normal [facility] MAGNESIUMon 07-31-2020 Magnesium [Mass/Vol] 2.04 mg/dL Normal 1.60 - 2.40 [facility] Comment on above: Performed By: #### M G #### [facility] [address] [place] [address] PT/INRon 07-31-2020 PT Coag (PPP) [Time] 12.0 s Normal 10.1 - 13.3 [facility] Comment on above: Performed By: #### P TINR #### [facility] [address] [place] [address] PT, INR 1.0 Normal 0.9 - 1.1 [facility] Comment on above: Performed By: #### P TINR #### [facility] [address] [place] [address] Provider Note - ED v2on 07-22 Provider Note - ED v2 Provider Note - ED v2: Chart Review: ED NOTES ED NOTES: History: This is an 80-year-old male presenting from the [facility] by [facility] for chief complaint of a medical evaluation. Patient left his home in [place] 3 days ago because he got into an argument with his and he has not been back since. He was finally located at a [facility] down the street when family called. [...] From Triage - ED 30-Jul-2020 23:17 Normal [facility] Risk Screen - Adult Emergenc yon 07-31-2020 [...] instruction; written material Cultural Considerationsnone Developmental Considerationsnone Anabaptist Considerationsnone Learning Assessment (Other Learner): Learning Assessment (Other Learner): Other learner availableno Pressure Injury/TB/Substance: Pressure Injury: Do you have a coughno Substance Use Current or Former Historynever: Cigarette/Tobacco, e-Cigarette/Vaping, Alcohol, Street Drugs Admission Risk Screen: Significant IndicatorsComplete CAGE: CAGE: Is this an injured patient at a Trauma Center ([facility]/[place] a/[place]): no Electronic Signatures: Elizabeth Ivan) (Signed 30-Jul-2020 23:24) Authored: Preferred Language, Advanced Directives, Family Violence Adult, Learning Assessment (Patient), Learning Assessment (Other Learner), Pressure Injury/TB/Substance, Pressure Injury, CAGE Last Updated: 30-Jul-2020 23:24 by Elizabeth Ivan) Normal [facility] TROPONIN Ion 07-31-2020 Troponin I.cardiac [Mass/Vol] ng/mL Normal 0.00 - 0.03 [facility] Comment on above: Result Comment: LESS THAN [...] is performed using different testing methodology at [facility] than at other [facility]. Direct result comparisons should only be made within the same method. Performed By: #### T ROP2 #### 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 Language: Spoken Language Preferred: Armenian Reading Language Preferred: Armenian CHIEF COMPLAINT NAT MOORE is a Male [...] obeys commands Best Verbal Response: (V5) oriented Foley Score: 15 Allergies: yes Patient has homicidal [...] Medical History Reviewedno Electronic Signatures: Elizabeth Ivan (MIGUEL) (Signed 30-Jul-2020 23:23) Authored: Quick Triage, Risk Screens, Pain, Arrival, ABCD, Chart Review, Scores, Past Medical History Last Updated: 30-Jul-2020 23:23 by Elizabeth Ivan (MIGUEL) Normal [facility] UA MICROSCOPICon 07-31-2020 RBC 1 /HPF Normal 0-5 [facility] Comment on above: Performed By: #### U AMIC #### [facility] [address] [place] [address] SQUAMOUS EPITH. CELLS <1 Normal [facility] Comment on above: Performed By: #### U AMIC #### [facility] [address] [place] [address] WBC 22 /HPF Abnormal 0-5 [facility] Comment on above: Performed By: #### U AMIC #### [facility] [address] [place] [place] [address] URINALYSISon 07-31-2020 Appearance (U) CLEAR Normal CLEAR [facility] Comment on above: Performed By: #### U A #### [facility] [address] [facility] [place] [address] Bilirubin Ql (U) Negative Normal NEGATIVE [facility] Comment on above: Performed By: #### U A #### [facility] [address] [facility] [place] [address] Color (U) STRAW Normal STRAW,YELLOW [facility] Comment on above: Performed By: #### U A #### [facility] [id number] [place] [address] Glucose Ql (U) >=500(3+) Abnormal NEGATIVE [facility] Comment on above: Performed By: #### U A #### [facility] [id number] [place] [address] Hemoglobin Ql (U) SMALL(1+) Abnormal NEGATIVE [facility] Comment on above: Performed By: #### U A #### [facility] [address] [place] [address] Ketones Ql (U) Negative Normal NEGATIVE [facility] Comment on above: Performed By: #### U A #### [facility] [address] [place] [address] Leukocyte esterase Test strip Ql (U) TRACE Abnormal NEGATIVE [facility] Comment on above: Performed By: #### U A #### [facility] [id number] [place] [address] Nitrite Ql (U) Negative Normal NEGATIVE [facility] Comment on above: Performed By: #### U A #### [facility] [address] [place] [address] pH (U) 6.0 [pH] Normal 5.0 - 8.0 [facility] Comment on above: Performed By: #### U A #### [facility] [address] [place] [address] Protein Ql (U) 100(2+) Abnormal NEGATIVE [facility] Comment on above: Performed By: #### U A #### [facility] [address] [place] [address] Specific gravity (U) [Rel density] 1.025 Normal 1.005 - 1.035 [facility] Comment on above: Performed By: #### U A #### [facility] [address] [place] [address] Urobilinogen (U) [Mass/Vol] mg/dL Normal 0.0 - 1.9 [facility] Comment on above: Performed By: #### U A #### [facility] [address] [place] [address] Vital Signs Date Time Vital Sign Value Performing Clinician Dontae fuentes 09-16-2022 14:48-0400 Blood Pressure Location Umer VALENCIA [facility] 09-16-2022 14:48-0400 Diastolic blood pressure 74 mm[Hg] Umer VALENCIA [facility] 09-16-2022 14:48-0400 Heart rate 70 /min Umer VALENCIA [facility] 09-16-2022 14:48-0400 Respiratory rate 16 /min Umer VALENCIA [facility] 09-16-2022 14:48-0400 Systolic blood pressure 130 mm[Hg] Umer VALENCIA [facility] 04-26-2022 11:04-0500 Blood Pressure Location Umer VALENCIA [facility] 04-26-2022 11:04-0500 Diastolic blood pressure 78 mm[Hg] Umer VALENCIA [facility] 04-26-2022 11:04-0500 Heart rate 62 /min Umer VALENCIA [facility] 04-26-2022 11:04-0500 Respiratory rate 16 /min Umer VALENCIA [facility] 04-26-2022 11:04-0500 Systolic blood pressure 134 mm[Hg] Umer VALENCIA [facility] 12-03-2021 13:08-0400 Blood Pressure Location Umer VALENCIA [facility] 12-03-2021 13:08-0400 Diastolic blood pressure 70 mm[Hg] Umer VALENCIA [facility] 12-03-2021 13:08-0400 Heart rate 65 /min Umer VALENCIA [facility] 12-03-2021 13:08-0400 Respiratory rate 16 /min Umer VALENCIA [facility] 12-03-2021 13:08-0400 Systolic blood pressure 109 mm[Hg] Umer VALENCIA [facility] 09-03-2021 13:39-0400 Blood Pressure Location Umer VALENCIA [facility] 09-03-2021 13:39-0400 Diastolic blood pressure 67 mm[Hg] Umer VALENCIA [facility] 09-03-2021 13:39-0400 Heart rate 68 /min Umer VALENCIA [facility] 09-03-2021 13:39-0400 Respiratory rate 16 /min Umer VALENCIA [facility] [place] 09-03-2021 13:39-0400 Systolic blood pressure 102 mm[Hg] Umer VALENCIA [facility] Encounters Encounter Date Encounter Type Care Provider Facility Start: 11-11-2023 ambulatory Marianela X Orzech Facilit y:MANUEL [place] Start: 10-23-2023 End: 10-23-2023 ambulatory CHET SANDOVAL Not Available Start: 10-14-2023 End: 10-14-2023 ambulatory Marianela X Orzech Facility: [place] Start: 10-14-2023 End: 10-14-2023 Patient encounter procedure Marianela X Orzech [facility] Start: 10-09-2023 End: 10-09-2023 ambulatory JEFFREY GABRIEL Not Available Start: 08-01-2023 End: 08-01-2023 ambulatory JUAN PABLO B ALANIZ Not Available Start: 06-19-2023 End: 06-19-2023 ambulatory JUAN PABLO B ALANIZ Not Available Start: 05-13-2023 End: 05-13-2023 ambulatory CAIT PINTO Facility:[facility] Start: 05-13-2023 End: 05-13-2023 Patient encounter procedure CAIT PINTO [facility] [place] Start: 04-23-2023 End: 04-23-2023 ambulatory JUAN PABLO B ALANIZ Not Available Start: 03-26-2023 End: 03-26-2023 ambulatory JUNA PABLO B ALANIZ Not Available Start: 02-27-2023 End: 02-27-2023 ambulatory CHET SANDOVAL Not Available Start: 12-18-2022 End: 12-18-2022 ambulatory CIAT PINTO Facility:[facility] Start: 09-16-2022 End: 09-16-2022 Patient encounter procedure Umer VALENCIA [facility] Start: 07-26-2022 End: 07-27-[address] JUAN PABLO ALANIZ Facility:[facility] Start: 06-26-2022 End: 06-27-[address] JUAN PABLO ALANIZ Facility:[facility] Start: 05-23-2022 End: 05-24-[address] JUAN PABLO ALANIZ Facility:[facility] Start: 04-26-2022 End: 04-26-2022 Patient encounter procedure Umer VALENCIA [facility] Start: 04-22-2022 End: 04-23-[address] JUAN PABLO ALANIZ Facility:[facility] Start: 04-16-2022 End: 04-16-[address] JUAN PALBO ALANIZ Facility:[facility] Start: 04-08-2022 End: 04-08-2022 Patient encounter procedure Umer VALENCIA [facility] Start: 04-04-2022 ambulatory SHELLIEVANESSA OLIVASIS . Facility:[facility] Start: 03-08-2022 End: 03-08-[address] JUAN PABLO ALANIZ Facility:[facility] Start: 03-04-2022 Encounter for preprocedural cardiovascular examination DR VINH HOLCOMB . [facility] Start: 03-04-2022 Encounter for preprocedural laboratory examination DR VINH HOLCOMB . [facility] Start: 03-03-2022 End: 03-03-[address] JUAN PABLO ALANIZ Facility:[facility] Start: 03-02-2022 Encounter for preprocedural cardiovascular examination DR VINH HOLCOMB . [facility] Start: 02-26-[address] VINH HOLCOMB . Faci lity:[facility] Start: 02-22-2022 End: 02-23-2022 Encounter for preprocedural cardiovascular examination DR VINH HOLCOMB . Facility:[facility] Start: 02-22-2022 End: 02-23-[address] VINH HOLCOMB . Facility:[facility] Start: 02-22-2022 End: 02-23-2022 Encounter for preprocedural laboratory examination DR VINH HOLCOMB . Facility:[facility] Start: 02-19-2022 End: 02-20-2022 ambulatory [facility] Facility:[facility] Start: 02-04-[address] VINH HOLCOMB . Faci lity:[facility] Start: 01-22-2022 End: 01-23-[address] JUAN PABLO ALANIZ Facility:[facility] Start: 01-01-2022 End: 01-01-[address] VINH HOLCOMB . Facility:[facility] Start: 12-13-2021 End: 12-14-[address] VINH HOLCOMB . Facility:[facility] Start: 12-03-2021 End: 12-03-2021 Patient encounter procedure Umer VALENCIA [facility] Start: 11-29-2021 End: 11-30-2021 ambulatory [facility] Facility:[facility] Start: 11-27-2021 End: 11-27-[address] VINH HOLCOMB . Facility:[facility] Start: 10-02-2021 End: 10-03-[address] VINH HOLCOMB . Facility:[facility] Start: 09-21-2021 End: 09-21-[address] SUJIT GR . Facility:[facility] Start: 09-19-2021 End: 09-20-2021 ambulatory [facility] Facility:[facility] Start: 09-15-2021 End: 09-16-[address] SPARKLE NELSON Facility:[facility] Start: 09-03-2021 End: 09-03-2021 Patient encounter procedure Umer VALENCIA [facility] Start: 09-03-2021 End: 09-03-[address] JUAN PABLO ALANIZ Facility:[facility] Procedures Date Procedure Procedure Detail Performing Clinician Esophagogastroduodenoscopy Goldie VALENCIA Plan of Treatment Date Care Activity Detail Author Start: 08-22-2022 ambulatory Ambulatory Facility:[facility] 1 Immunizations Immunization Date Immunization Notes Care Provider Walt peck 01-13-2023 influenza virus vacc ine, unspecified formulation Marianela Ingram [facility] 02-22-2022 influenza virus vacc ine, unspecified formulation Umer [employer] [facility] 12-21-2020 SARS-CoV-2 (COVID-19 ) mRNA [id number] vax [employer] [facility] 11-30-2020 SARS-CoV-2 (COVID-19 ) mRNA [id number] vax [employer] [facility] 01-24-2020 influenza virus vacc ine, unspecified formulation [employer]mer [employer] [facility] 03-04-2019 influenza virus vacc ine, unspecified formulation [employer] [facility] 08-05-2018 pneumococcal polysaccharide vaccine, 23 valent [employer] [facility] 12-18-2016 influenza virus vacc ine, unspecified formulation [employer]mer [employer] [facility] 12-06-2015 influenza virus vacc ine, unspecified formulation [employer] [facility] 12-21-2014 influenza virus vacc ine, unspecified formulation [employer] [facility] Payers Date Payer Category Payer Unknown [id number] 1961 Unknown [id number] 1940 Unknown [id number] 2.16.84 0.1.112511.3.579.2.593 1940 Unknown [id number] 2.16.84 0.1.983328.3.579.2.593 1938 Unknown [id number] 2.16.84 0.1.902116.3.579.2.593 1938 Unknown [id number] 2.16.84 0.1.695942.3.579.2.593 1938 Unknown [id number] 2.16.84 0.1.947979.3.579.2.593 1938 Unknown [id number] 2.16.84 0.1.244286.3.579.2.593 1938 Unknown [id number] 2.16.84 0.1.519582.3.579.2.593 1938 Unknown [id number] 2.16.84 0.1.582296.3.579.2.593 1938 Unknown [id number] 2.16.84 0.1.404385.3.579.2.593 1938 Unknown [id number] 2.16.84 0.1.963675.3.579.2.593 1938 Unknown [id number] 2.16.84 0.1.212886.3.579.2.593 1938 Unknown [id number] 2.16.84 0.1.503103.3.579.2.593 1938 Unknown [id number] 2.16.84 0.1.559788.3.579.2.593 1938 Unknown [id number] 2.16.84 0.1.117779.3.579.2.593 1938 Unknown [id number] 2.16.84 0.1.486418.3.579.2.593 1938 Unknown [id number] 2.16.84 0.1.073070.3.579.2.593 1938 Unknown [id number] 2.16.84 0.1.109861.3.579.2.593 1938 Unknown [id number] 2.16.84 0.1.727573.3.579.2.593 1938 Unknown [id number] 2.16.84 0.1.572713.3.579.2.593 1938 Unknown [id number] 2.16.84 0.1.639894.3.579.2.593 1938 Unknown [id number] 2.16.84 0.1.653933.3.579.2.593 1938 Unknown [id number] 2.16.84 0.1.225384.3.579.2.593 1938 Unknown [id number] 2.16.84 0.1.087441.3.579.2.593 1938 Unknown [id number] 2.16.84 0.1.554491.3.579.2.593 1938 Unknown [id number] 2.16.8 40.1.856835.3.579.2.727 1938 Unknown [id number] 2.16.8 40.1.705523.3.579.2.727 1938 Unknown [id number] 2.16.8 40.1.848850.3.579.2.727 1938 Unknown [id number] 2.16.8 40.1.721011.3.579.2.727 1938 Unknown [id number] 2.16.84 0.1.802874.3.579.2.1259 1938 Unknown [id number] 2.16.84 0.1.253896.3.579.2.1259 1938 Unknown [id number] 2.16.84 0.1.516520.3.579.2.1259 1938 Unknown [id number] 2.16.84 0.1.885474.3.579.2.1259 1938 Unknown [id number] 2.16.84 0.1.480265.3.579.2.1259 1938 Unknown [id number] 2.16.840 .1.950021.3.579.2.1259 1938 Unknown [id number] 2.16.840 .1.505475.3.579.2.1259 Social History Date Type Detail Facility Start: 09-03-2021 Tobacco smoking status Ex-smoker (fi nding) [facility] Sex Assigned At Male [facility] Start: 04-26-2022 Tobacco smoking status Never s moked tobacco (finding) [facility] Tobacco smoking status Never [facility] Functional Status Date Assessment Result Facility 09-16-2022 Functional Status N/A [facility] 04-26-2022 Functional Status N/A [facility] 12-03-2021 Functional Status N/A [facility] 09-03-2021 Functional Status N/A [facility] Clinical Notes 09-03-2021 to 09-16-2022 [...] your health care provider. General instructions Take jklc-lqr-ejbznmv and prescription medicines only as told by [...] provider. Document Revised: 11/27/2020 Document Reviewed: 11/27/2020 [employer] Patient Education 2022 [place]. Follow Up Care 04/26/2022 11:39:09 With:ERIK MENG, Umer Schultz, URL Address: [facility] [address], [place] [address]- When: Unknown [facility] [place] 05-23-2022 Note CONSULTATION CONSULTATION DATE: 05/23/2022 HISTORY: [...] indicated. Patient agrees with this plan. [facility] 04-26-2022 Hospital Discharge instructions Patient Education 04/26/2022 [...] urethra. Follow these instructions at home: Take nqyt-gcn-oiewoqx and prescription medicines only as told by [...] 03/10/2006 Document Revised: 02/02/2019 Document Reviewed: 04/14/2017 [employer] Patient Education 2020 [employer] [place]. Follow Up Care 04/08/2022 14:01:00 With:ERIK MENG, Umer Schultz, URL Address: [address] [place] [address]- When: Unknown [facility] [place] 04-08-2022 Hospital Discharge instructions Patient Education 04/08/2022 [...] urethra. Follow these instructions at home: Take vpnb-jwh-wrucqfy and prescription medicines only as told by [...] 03/10/2006 Document Revised: 02/02/2019 Document Reviewed: 04/14/2017 [employer] Patient Education 2020 [place]. Follow Up Care 12/03/2021 14:11:02 With:ERIK MENG, Umer Schultz, URL Address: [facility] [address] , [place] [address]- When: Unknown [facility] 01-22-2022 Note CONSULTATION CONSULTATION DATE: 01/22/2022 CHIEF [...] to proceed. CC: Juan Pablo Alaniz M.D. 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 He does not use heat or ice to his back at this time. Current medications include gabapentin 200 mg t.i.d., nabumetone 750 mg b.i.d., [place] 5/325 t.i.d. Patient does use a walking [...] L3 and L4, L5. A refill for [place] 5/325 t.i.d. will be sent today. He will receive an oral U-Tox in the office today. Supportive measures such as stretching, a menthol heat rub and heat application to his back were discussed. I did recommend a Boost supplement daily. Patient will be followed up in the office post procedure and agrees to move forward. [facility] 12-03-2021 Hospital Discharge instructions Patient Education 12/03/2021 [...] urethra. Follow these instructions at home: Take yeyg-ekg-fkqhbmx and prescription medicines only as told by [...] 03/10/2006 Document Revised: 02/02/2019 Document Reviewed: 04/14/2017 [employer] Patient Education 2019 [place]. Follow Up Care 09/03/2021 14:17:23 With:ERIK MENG, Umer Schultz, URL Address: [facility] [address] [place] [address]- [phone] When:04/04/2022 Comments:PVR [facility] [place] 10-02-2021 Note CONSULTATION PROCEDURE DATE: [...] he reports mitigation of his pain symptomatology. [facility] Signed and Approved by: DR VINH HOLCOMB . 10/09/2021 09:28:00 [facility] 10-02-2021 Note CONSULTATION CONSULTATION DATE: 10/02/2021 CHIEF [...] three times a day. We will re-prescribe [place] 5/325 t.i.d. which he had received from [...] to proceed. CC: Juan Pablo Alaniz M.D. [facility] Signed and Approved by: DR VINH HOLCOMB . 10/09/2021 09:28:00 [facility] 09-03-2021 Hospital Discharge instructions Patient [...] 03/10/2006 Document Revised: 11/27/2018 Document Reviewed: 02/07/2017 [employer] Patient Education 2020 [place]. 09/03/2021 13:53:06 Benign Prostatic Hyperplasia Benign Prostatic [...] urethra. Follow these instructions at home: Take oprd-cxj-fqvzsjg and prescription medicines only as told by [...] 03/10/2006 Document Revised: 02/02/2019 Document Reviewed: 04/14/2017 [employer] Patient Education 2020 [place]. Follow Up Care 07/03/2021 15:21:16 With:Umer VALENCIA MD, URL Address: [facility] [address], [place] [phone] When:Within 3 Month(s) Comments:f/u in 3 months with PVR scan [facility] Evaluation + Plan note Future Appointments Appointment Date:12/03/2021 01:15:00 PM Scheduled Provider:Umer VALENCIA MD Location:[facility] Appointment Type:URO Office Visit [facility] Evaluation + Plan note Future Appointments Appointment Date:04/08/2022 12:45:00 PM Scheduled Provider:Umer VALENCIA MD Location:[facility] Appointment Type:URO Office Visit [facility] Evaluation + Plan note Future Appointments Appointment Date:04/26/2022 10:15:00 AM Scheduled Provider:Umer VALENCIA MD Location:[facility] Appointment Type:URO Office Visit [facility] Evaluation + Plan note Future Appointments Appointment Date:07/22/2022 08:45:00 AM Scheduled Provider:Umer VALENCIA MD Location:[facility] Appointment Type:URO Office Visit [facility] Evaluation + Plan note Future Appointments Appointment Date:12/20/2022 08:30:00 AM Scheduled Provider:Umer VALENCIA MD Location:[facility] Appointment Type:URO Office Visit [facility] Evaluation + Plan note Future Appointments Appointment Date:11/11/2023 01:00:00 PM Scheduled Provider:RAUL Ingram APRN, [place] [facility] Location:[facility] Appointment Type:URO Office Visit [facility] Hospital course Narrative No data available for this section [facility] Hospital Discharge instructions No data available for this section [facility] Progress note No data available for this section [facility] Summary Purpose Family History No Family History Records FoundNo Family History Records Found No data available for this section No data available for this section No [...] section and content) DATE CREATED AUTHOR 11/14/2020 [facility] DATE CREATED AUTHOR AUTHOR'S ORGANIZ ATION 08/02/2022 [facility] DATE CREATED AUTHOR AUTHOR'S ORGANIZ ATION 10/17/2023 [facility] DATE CREATED AUTHOR AUTHOR'S ORGANIZ ATION 10/26/2023 [facility] EPIC Care Team (unrecognized sect ion and content) Personnel Name: JUAN PABLO ALANIZ MD Address: [address] [place] [address] Personnel Name: JUAN PABLO ALANIZ MD Address: [address] [place] [address] Personnel Name: JUAN PABLO ALANIZ MD Address: Address: [address] [place] [address] Personnel Name: JUAN PABLO ALANIZ MD Address: Address: [address] [place] [address] Personnel Name: JUAN PABLO ALANIZ MD Address: Address: [address] [place] [address] Personnel Name: JUAN PABLO ALANIZ MD Address: Address: [address] [place] [address] Personnel Name: JUAN PABLO ALANIZ MD Address: Address: [address] [place] [address] FOR RECORDS PERTAINING TO PATIENTS WHO ARE [...] BE BASED ON THE PRIMARY CLINICAL RECORDS. [facility]. provides no warranty or guarantee of the accuracy or completeness of information in this document.
--- NOTE | 2023-10-26 13:32 | XR_ITS ---
The [address] [address] Patient Name: NAT MOORE MRN: [id number] date: 1940 Sex: M Assigned Patient Location: ER Current Patient Location: ED.MAIN Accession/Order Number: [id number] Exam Date: 10/26/2023 14:25 Report Date: 10/26/2023 15:05 At the request of: MAGED SANDOVAL Procedure: XR chest 1V EXAM: XR chest 1V HISTORY: sob COMPARISON: 10/06/2023 TECHNIQUE: Chest X-ray AP, 1 view FINDINGS: Support devices: None. Lungs/pleura: Right basilar opacity, may represent atelectasis and/or consolidation. No effusion, or pneumothorax. Heart and mediastinum: Normal contours. Bones: No acute abnormality identified. XR/XR chest 1V Impression: Right basilar opacity, may represent atelectasis and/or consolidation. Electronically authenticated by: GOVIND KURTZ Date: 10/26/2023 15:05
--- NOTE | 2023-10-26 13:32 | ECG_ITS ---
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
[2023-10-26] MEDS: 0.9 % SODIUM CHLORIDE 500 ML IV (13:43)
[2023-10-26 13:54] LABS: Basophils Percent Auto 0.6 % (0.2-2.0); Eosinophils Absolute Auto 0.2 10^3/uL (0.0-0.7); Eosinophils Percent Auto 3.3 % (0.9-7.0); Hematocrit 37.7 % (42.0-54.0); Hemoglobin 12.3 g/dL (14.0-18.0); Immature Granulocytes Abs Auto 0.03 10^3/uL (0.00-0.03); Immature Granulocytes Pct Auto 0.4 % (0.0-0.5); Lymphocytes Absolute Auto 0.9 10^3/uL (1.2-3.8); Lymphocytes Percent Auto 13.1 % (20.5-60.0); Mean Corpuscular HGB Conc 32.6 g/dL (29.9-35.2); Mean Corpuscular Hemoglobin 32.1 pg (25.9-34.0); Mean Corpuscular Volume 98.4 fL (80.0-94.0); Monocytes Absolute Auto 0.5 10^3/uL (0.3-0.8); Monocytes Percent Auto 7.5 % (1.7-12.0); Neutrophils Absolute Auto 5.3 10^3/uL (1.4-6.5); Neutrophils Percent Auto 75.1 % (43.0-75.0); Platelet Count 168 10^3/uL (150-450); Red Blood Count 3.83 10^6/uL (4.70-6.10); Red Cell Distribution Width 14.6 % (11.0-15.0)
--- NOTE | 2023-10-26 14:09 | ED_ITS ---
HPI HPI - General Adult General Chief complaint: Nausea/Vomiting/Diarrhea Stated complaint: GENERAL WEAKNESS Time Seen by Provider: 10/26/23 13:13 Source: patient, family and medical record Mode of arrival: ambulance Limitations: no limitations History of Present Illness HPI narrative: Patient presents ED complaining of not feeling well. When asked what is wrong to bring him into the emergency room today he just says a lot of things are wrong. He said he is just feeling weak and rundown and slightly dizzy and just overall not well. He says he feels like his age is catching up to him. No chest pain but he does report some shortness of breath. He does have leg swelling which is chronic but he says it seems a little bit worse. He denies any UTI symptoms. He denies any confusion but his reports that maybe he has been a little bit confused. He is alert and oriented here in no acute distress. Vital signs are stable. He denies any cough Related Data Home Medications ?Medication ?Instructions ?Recorded ?Confirmed allopurinol 300 mg tablet 300 mg PO DAILY 07/26/23 10/06/23 docusate sodium 100 mg capsule 100 mg PO DAILY PRN constipation 07/26/23 10/06/23 donepezil 10 mg tablet 10 mg PO BEDTIME 07/26/23 10/06/23 fluoxetine 20 mg capsule 20 mg PO DAILY 07/26/23 10/06/23 gabapentin 100 mg capsule 200 mg PO TID 07/26/23 10/06/23 glipizide 10 mg tablet 10 mg PO BID 07/26/23 10/06/23 lidocaine 5 % topical patch 1 patch topical Q24H 07/26/23 10/06/23 meloxicam 15 mg tablet 15 mg PO BEDTIME 07/26/23 10/06/23 methocarbamol 500 mg tablet 500 mg PO BEDTIME 07/26/23 10/06/23 omeprazole 40 mg capsule,delayed 40 mg PO DAILY 07/26/23 10/06/23 release solifenacin 10 mg tablet 10 mg PO DAILY 07/26/23 10/06/23 tamsulosin 0.4 mg capsule 0.4 mg PO DAILY 07/26/23 10/06/23 Previous Rx's ?Medication ?Instructions ?Recorded candesartan 32 mg tablet (Atacand) 32 mg PO DAILY #30 tabs 10/07/23 Allergies Allergy/AdvReac Type Severity Reaction Status Date / Time Penicillins Allergy Intermediate Unknown Verified 10/26/23 13:16 Opioid HPI Opioid Management Most Recent Opioid Data: Last Pain Scale 0 10/07/23 08:14 Last ORT Total Score 0 10/06/23 17:50 Last ORT Risk Category Low Risk 10/06/23 17:50 Ur Phencyclidine Scrn Negative (NEGATIVE) 07/26/23 08:10 Review of Systems ROS Status of ROS 10 or more systems reviewed and unremark able except as noted in history and below PFSH PFS Medical History (Updated 10/26/23 @ 15:35 by Lianne Lieberman DO) Vomiting ?R11.10 - Vomiting, unspecified (ICD-10) Acute metabolic encephalopathy ?G93.41 - Metabolic encephalopathy (ICD-10) 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 (ICD-10) Low back pain ?M54.50 - Low back pain, unspecified (ICD-10) Dementia ?F03.90 - Unspecified dementia, unspecified severity, without behavioral disturbance, psychotic disturbance, mood disturbance, and anxiety (ICD-10) Depression ?F32.A - Depression, unspecified (ICD-10) Hyperuricemia ?E79.0 - Hyperuricemia without signs of inflammatory arthritis and tophaceous disease (ICD-10) HLD (hyperlipidemia) ?E78.5 - Hyperlipidemia, unspecified (ICD-10) Type 2 diabetes mellitus ?E11.9 - Type 2 diabetes mellitus without complications (ICD-10) HTN (hypertension) ?I10 - Essential (primary) hypertension (ICD-10) Social History (Updated 07/26/23 @ 14:57 by Shaikh Maritza MD) Within the past year, how often did you have a drink containing alcohol: never Within the past year, how many standard drinks containing alcohol did you have on a typical day: 1 or 2 Within the past year, how often did you have six or more drinks on one occasion: never Total score: 0 Score interpretation: A score less than 4 is consistent with normal alcohol consumption. Smoking status: Never smoker Non-prescribed substance use: denies use Highest level of school completed/degree received: high school graduate Exam Narrative Exam Narrative: Time Seen: [] Vital Signs: [Per nurse's notes.] General: [Alert] Skin: [Warm, dry, no rash.] Head: [Normocephalic, atraumatic.] Neck: [Supple, trachea midline.] Eye: [Pupils are equal, round and reactive to light, extraocular movements are intact, normal conjunctiva.] Ears, nose, mouth and throat: oral mucosa moist. Cardiovascular: [Regular rate and rhythm, no murmur.] Respiratory: [Lungs are clear to auscultation, respirations are non-labored, breath sounds are equal.] Chest wall: [No tenderness, no deformity.] Gastrointestinal: [Soft, nontender, non distended, normal bowel sounds.] MSK: 5 out of 5 muscle strength x 4 extremities Mild tenderness bilateral lower extremities with edema Lymphatics: [No lymphadenopathy.] Psychiatric: [Cooperative, appropriate mood & affect.] Neurological: [Alert and oriented to person, place, time, and situation, no focal neurological deficit observed.] Constitutional Vital Signs, click to edit/add: Last Vital Signs Temp 97.5 F L 10/26/23 13:13 Pulse 52 L 10/26/23 15:40 Resp 16 10/26/23 15:40 BP 150/84 H 10/26/23 15:53 Pulse Ox 99 10/26/23 15:40 O2 Del Method Room Air 10/26/23 13:13 Course Vital Signs Vital signs: Vital Signs Temperature 97.5 F L 10/26/23 13:13 Pulse Rate 68 10/26/23 13:13 Respiratory Rate 18 10/26/23 13:13 Blood Pressure 190/81 H 10/26/23 13:13 Pulse Oximetry 98 10/26/23 13:13 Oxygen Delivery Method Room Air 10/26/23 13:13 Temperature 97.5 F L 10/26/23 13:13 Pulse Rate 52 L 10/26/23 15:40 Respiratory Rate 16 10/26/23 15:40 Blood Pressure 150/84 H 10/26/23 15:53 Pulse Oximetry 99 10/26/23 15:40 Oxygen Delivery Method Room Air 10/26/23 13:13 Medical Decision Making MDM Narrative Medical decision making narrative: Patient's labs are relatively nonacute. He is alert and in no acute distress. Chest x-ray shows questionable pneumonia however he is not tachypneic tachycardic febrile, he does not have an elevated white blood cell count or cough. No UTI. Labs are otherwise stable. I do not see an indication for admission at this time to the Hospital. Patient and are comfortable with care plan for home. Return to ED if worsening symptoms or any further concerns. Differential Diagnosis Differential Diagnosis: Viral syndrome, UTI, electrolyte abnormality, congestive heart failure Medical Records Medical records reviewed: Yes I reviewed the patient's medical records Lab Data Lab results reviewed: Yes I reviewed the patient's lab results Labs: Lab Results 10/26/23 10/26/23 Range/Units 13:47 14:55 WBC 7.0 (4.0-11.0) 10^3/uL RBC 3.83 L (4.70-6.10) 10^6/uL Hgb 12.3 L (14.0-18.0) g/dL Hct 37.7 L (42.0-54.0) % MCV 98.4 H (80.0-94.0) fL MCH 32.1 (25.9-34.0) pg MCHC 32.6 (29.9-35.2) g/dL RDW 14.6 (11.0-15.0) % Plt Count 168 (150-450) 10^3/uL MPV 11.0 (9.5-13.5) fL Neut % (Auto) 75.1 H (43.0-75.0) % Lymph % (Auto) 13.1 L (20.5-60.0) % [place] % (Auto) 7.5 (1.7-12.0) % Eos % (Auto) 3.3 (0.9-7.0) % Baso % (Auto) 0.6 (0.2-2.0) % Neut # (Auto) 5.3 (1.4-6.5) 10^3/uL Lymph # (Auto) 0.9 L (1.2-3.8) 10^3/uL [place] # (Auto) 0.5 (0.3-0.8) 10^3/uL Eos # (Auto) 0.2 (0.0-0.7) 10^3/uL Baso # (Auto) 0.0 (0.0-0.1) 10^3/uL Abs Immat Gran (auto) 0.03 (0.00-0.03) 10^3/uL Imm/Tot Granulo (auto) 0.4 (0.0-0.5) % Sodium 142 (136-145) mmol/L Potassium 4.1 (3.5-5.1) mmol/L Chloride 107 (98-107) mmol/L Carbon Dioxide 31.2 (21.0-32.0) mmol/L Anion Gap 7.9 BUN 29.0 H (7.0-18.0) mg/dL Creatinine 1.48 H (0.70-1.30) mg/dL Est GFR ( Amer) 55 L (>=60) Est GFR (Non-Af Amer) 45 L (>=60) BUN/Creatinine Ratio 19.6 Glucose 66 L (74-106) mg/dL Lactate 0.7 (0.4-2.0) mmol/L Calcium 8.4 L (8.5-10.1) mg/dL Total Bilirubin 0.6 (0.2-1.0) mg/dL AST 17 (15-37) U/L ALT 16 (16-63) U/L Alkaline Phosphatase 87 (46-116) U/L Troponin I High Sens <4.0 L (4.0-76.1) pg/mL NT-Pro-B Natriuret Pep 248.0 (<=1800.0) pg/mL Total Protein 6.2 L (6.4-8.2) g/dL Albumin 2.9 L (3.4-5.0) g/dL Globulin 3.3 g/dL Albumin/Globulin Ratio 0.9 Urine Color Yellow (YELLOW) Urine Clarity Clear (CLEAR) Urine pH 6.0 (5.0-9.0) Ur Specific [place] 1.020 (1.005-1.025) Urine Protein 30 A (NEG/TRACE) mg/dL Urine Glucose (UA) Negative (NEGATIVE) mg/dL Urine Ketones Trace A (NEGATIVE) mg/dL Urine Occult Blood Small A (NEGATIVE) Urine Nitrite Negative (NEGATIVE) Urine Bilirubin Negative (NEGATIVE) Urine Urobilinogen 1.0 (0.2-1.0) EU/dL Ur Leukocyte Esterase Negative (NEGATIVE) Urine RBC 0-2 (0-2) #/HPF Urine WBC 0-2 A (NONE SEEN) #/HPF Ur Squamous Epith Cells Few A (NONE/RARE) #/LPF Urine Crystals None seen (None Seen) #/HPF Urine Bacteria Trace A (NONE SEEN) #/HPF Urine Casts None seen (NONE SEEN) #/LPF Urine Mucus Trace A (NONE SEEN) Ur Culture Indicated? No Imaging Data Chest x-ray: Radiologist's impression: ITS Impressions Chest X-Ray 10/26/23 13:32 Impression: Right basilar opacity, may represent atelectasis and/or consolidation. Electronically authenticated by: GOVIND KURTZ Date: 10/26/2023 15:05 ECG Data Attestation: I personally reviewed and interpreted this ECG as follows: Interpretation: EKG INTERPRETATION Time: []1321 Rate: []60 Rhythm: _ []Sinus rhythm with first-degree AV block ST segments: _ []No acute ST elevation or depression T waves: _ [] Ectopy: _ [] P wave/DE interval: _ [] QRS interval: _ [] QT interval: _ [] Comparison: _ [] Comparison EKG date: [] Performed by: [self] Discharge Plan Discharge Stand Alone Forms: Portal Instructions Chief Complaint: Nausea/Vomiting/Diarrhea Clinical Impression: Acute viral syndrome Patient Disposition: Home, Self-Care Time of Disposition Decision: 15:35 Condition: Fair Mode of Transportation: Private Vehicle Prescriptions / Home Meds: No Action allopurinol 300 mg tablet 300 mg PO DAILY docusate sodium 100 mg capsule 100 mg PO DAILY PRN (Reason: constipation) donepezil 10 mg tablet 10 mg PO BEDTIME fluoxetine 20 mg capsule 20 mg PO DAILY gabapentin 100 mg capsule 200 mg PO TID glipizide 10 mg tablet 10 mg PO BID lidocaine 5 % adhesive patch,medicated 1 patch topical Q24H Rx Instructions: BACK meloxicam 15 mg tablet 15 mg PO BEDTIME methocarbamol 500 mg tablet 500 mg PO BEDTIME omeprazole 40 mg capsule,delayed release(DR/EC) 40 mg PO DAILY solifenacin 10 mg tablet 10 mg PO DAILY tamsulosin 0.4 mg capsule 0.4 mg PO DAILY candesartan [Atacand] 32 mg tablet 32 mg PO DAILY Qty: 30 11RF Print Language: Estonian Instructions: Viral Syndrome (ED) Referrals: JASON CRUZ [Primary Care Provider] - 1 week
[2023-10-26 14:20] LABS: Lactate/Lactic Acid 0.7 mmol/L (0.4-2.0)
[2023-10-26 14:36] LABS: Alanine Aminotransferase 16 U/L (16-63); Albumin Globulin Ratio 0.9; Albumin Level 2.9 g/dL (3.4-5.0); Alkaline Phosphatase 87 U/L (46-116); Anion Gap 7.9; Aspartate Amino Transferase 17 U/L (15-37); BUN Creatinine Ratio 19.6; Bilirubin Total 0.6 mg/dL (0.2-1.0); Calcium 8.4 mg/dL (8.5-10.1); Carbon Dioxide 31.2 mmol/L (21.0-32.0); Chloride 107 mmol/L (98-107); Estimated GFR (African America 55 (>=60); Estimated GFR (Non-African Ame 45 (>=60); Globulin 3.3 g/dL; Glucose 66 mg/dL (74-106); Potassium 4.1 mmol/L (3.5-5.1); Sodium 142 mmol/L (136-145); Total Protein 6.2 g/dL (6.4-8.2); Troponin I High Sensitivity <4.0 pg/mL (4.0-76.1)
[2023-10-26] MEDS: ACETAMINOPHEN 325 MG TABLET 650 MG PO (15:09)
[2023-10-26 15:21] LABS: Bilirubin Urine NEGATIVE (NEGATIVE); Blood Urine SMALL (NEGATIVE); Clarity Urine CLEAR (CLEAR); Color Urine YELLOW (YELLOW); Glucose Urine UA NEGATIVE (NEGATIVE); Ketones Urine TRACE mg/dL (NEGATIVE); Leukocyte Esterase Urine NEGATIVE (NEGATIVE); Nitrite Urine NEGATIVE (NEGATIVE); Protein Urine 30 mg/dL (NEG/TRACE)
[2023-10-26 15:30] LABS: Urine Microscopic Indicated YES
[2023-10-26 15:38] LABS: Bacteria Urine TRACE #/HPF (NONE SEEN); Cast Seen? NONE SEEN #/LPF (NONE SEEN); Crystals Seen? None Seen #/HPF (None Seen); Mucus Urine TRACE (NONE SEEN); RBC Urine 0-2 #/HPF (0-2); Squamous Epithelial Cell Urine FEW #/LPF (NONE/RARE); WBC Urine 0-2 #/HPF (NONE SEEN)
[2023-10-26 15:39] LABS: Urine Culture Indicated NO
== END 2023-10-26 16:06 | disposition home or self-care (01) ==
PROVIDERS: Emergency Provider Emergency Medicine; PCP Internal Medicine
DX: B34.9 Viral infection, unspecified (principal); R06.02 Shortness of breath
CPT/HCPCS: 36415; 71045; 80053; 81001; 83605; 83880; 84484; 85025; 93005; 99285

== ENCOUNTER 2023-11-15 08:56 | Emergency (ER) | payer MEDICARE, SELFPAY ==
[2023-11-15] VITALS (37 sets, daily range): BP systolic 156–202; BP diastolic 64–95; PULSE 63–156; TEMP 36.4; O2SAT 94–100; BMI 35.9
--- NOTE | 2023-11-15 09:02 | ECG_ITS ---
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
--- NOTE | 2023-11-15 09:05 | CT_ITS ---
[address] [address] Patient Name: NAT MOORE MRN: [id number] date: 1940 Sex: M Assigned Patient Location: ER Current Patient Location: ED.MAIN Accession/Order Number: [id number] Exam Date: 11/15/2023 09:27 Report Date: 11/15/2023 10:15 At the request of: NOEL LAINEZ Procedure: CT abdomen pelvis wo con EXAM: CT abdomen pelvis wo con HISTORY: small bowel obstruction symptoms COMPARISON: CT abdomen/pelvis dated 10/06/[address] abdomen/pelvis dated 09/03/2021. TECHNIQUE: Routine CT abdomen/pelvis without intravenous contrast. Dose reduction techniques were achieved by using automated exposure control and/or adjustment of mA and/or kV according to patient size and/or use of iterative reconstruction technique. FINDINGS: Lung bases: Stable 7.2 mm noncalcified left lower lobe nodule (series 3 image 12). Liver: Unremarkable. Gallbladder/biliary tree: Cholelithiasis without secondary findings of acute cholecystitis or biliary dilatation. Pancreas: Fatty infiltrated however otherwise unremarkable. Spleen: Unremarkable. Adrenal glands: Unremarkable. Kidneys: Mild cortical scarring along the contour of both kidneys. Stable right renal cysts measuring 2.1 cm and 1.5 cm. Stable mild to moderate stranding density within both perinephric spaces. Bowel: Nonobstructive bowel gas pattern with a small amount of stool within the colon. There are colonic diverticula, most numerous along the sigmoid colon and descending colon without diverticulitis. The appendix is unremarkable. The distal esophagus and stomach are unremarkable. The small bowel is normal caliber. Inflammation: There is no free air, free fluid or abscess. Vasculature: Moderate atheromatous calcification descending thoracic and abdominal aorta. Moderately severe atheromatous calcification iliac, common femoral, femoral and profunda femoral arteries. Mild atheromatous calcification at the origin of both main renal arteries and a small atheromatous calcification along the distal splenic artery. The IVC is unremarkable. Lymphadenopathy: There are no pathologically enlarged lymph nodes within the abdomen/pelvis. Pelvis: The urinary bladder is unopacified and underdistended with resultant mild circumferential wall thickening. No other abnormality of the urinary bladder is seen. The prostate gland is moderately enlarged. There are pelvic phleboliths. Musculoskeletal: There is a small amount of fat extending into the umbilicus. The bony structures are osteopenic. There are discogenic degenerative changes and facet arthritis at numerous levels along the spine. There is spinal canal stenosis along the lumbar spine. There are mild degenerative changes at both hip joints. CT/CT abdomen pelvis wo con IMPRESSION: Nonobstructive bowel gas pattern with a small amount of stool within the colon. Numerous diverticula along the sigmoid and descending colon without diverticulitis. There is no free air, free fluid or abscess. Stable 7.2 mm noncalcified left lower lobe nodule (series 3 image 12). Cholelithiasis without secondary findings of acute cholecystitis or biliary dilatation. Stable right renal cysts measuring 2.1 cm and 1.5 cm. Atherosclerotic disease as described in the body the report. The urinary bladder is unopacified and underdistended with resultant mild circumferential wall thickening. The prostate gland is moderately enlarged. Additional findings as described in the body the report. Electronically authenticated by: MANDIE POSADA Date: 11/15/2023 10:15
--- NOTE | 2023-11-15 09:10 | ED.GENADUL1 ---
HPI HPI - General Adult General Chief complaint: Nausea/Vomiting/Diarrhea Stated complaint: NAUSEA Time Seen by Provider: 11/15/23 09:01 Source: patient, medical record and other Source information: EMS Mode of arrival: ambulance Limitations: no limitations History of Present Illness HPI narrative: The patient is coming to us with nausea vomiting and left lower abdominal pain that started at night, mentioned that he went to sleep with no acute complaint but he woke up in the middle of the night throwing up, he had to be provided with Zofran twice by the EMS before arrival to resolve his symptoms, the patient had diarrhea yesterday once according to his symptoms he did not have any bowel movement today, he also denies any chest pain, The patient denies any fever When asked about abdominal surgery the patient mentioned that he have a history of surgeries but he did not mention in details what are the surgeries done Related Data Home Medications ?Medication ?Instructions ?Recorded ?Confirmed allopurinol 300 mg tablet 300 mg PO DAILY 07/26/23 11/15/23 docusate sodium 100 mg capsule 100 mg PO DAILY PRN constipation 07/26/23 11/15/23 donepezil 10 mg tablet 10 mg PO BEDTIME 07/26/23 11/15/23 fluoxetine 20 mg capsule 20 mg PO DAILY 07/26/23 11/15/23 gabapentin 100 mg capsule 200 mg PO TID 07/26/23 11/15/23 glipizide 10 mg tablet 10 mg PO BID 07/26/23 11/15/23 meloxicam 15 mg tablet 15 mg PO BEDTIME 07/26/23 11/15/23 methocarbamol 500 mg tablet 500 mg PO BEDTIME 07/26/23 11/15/23 omeprazole 40 mg capsule,delayed 40 mg PO DAILY 07/26/23 11/15/23 release solifenacin 10 mg tablet 10 mg PO DAILY 07/26/23 11/15/23 tamsulosin 0.4 mg capsule 0.4 mg PO DAILY 07/26/23 11/15/23 furosemide 20 mg tablet 20 mg PO DAILY 11/15/23 11/15/23 furosemide 40 mg tablet 40 mg PO DAILY 11/15/23 11/15/23 potassium chloride 20 mEq 20 meq PO DAILY 11/15/23 11/15/23 tablet,extended release(part/cryst) trospium 60 mg capsule,extended 60 mg PO DAILY 11/15/23 11/15/23 release 24 hr Previous Rx's ?Medication ?Instructions ?Recorded candesartan 32 mg tablet (Atacand) 32 mg PO DAILY #30 tabs 10/07/23 Allergies Allergy/AdvReac Type Severity Reaction Status Date / Time Penicillins Allergy Intermediate Unknown Verified 11/15/23 09:03 Opioid HPI Opioid Management Most Recent Opioid Data: Last Pain Scale 0 10/07/23 08:14 Last ORT Total Score 0 10/06/23 17:50 Last ORT Risk Category Low Risk 10/06/23 17:50 Ur Phencyclidine Scrn Negative (NEGATIVE) 07/26/23 08:10 Review of Systems ROS Status of ROS 10 or more systems reviewed and unremarkable except as noted in history and below [facility] Medical History (Updated 11/15/23 @ 11:54 by Charo Welch MD) Vomiting ?R11.10 - Vomiting, unspecified (ICD-10) Acute metabolic encephalopathy ?G93.41 - Metabolic encephalopathy (ICD-10) 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 (ICD-10) Low back pain ?M54.50 - Low back pain, unspecified (ICD-10) Dementia ?F03.90 - Unspecified dementia, unspecified severity, without behavioral disturbance, psychotic disturbance, mood disturbance, and anxiety (ICD-10) Depression ?F32.A - Depression, unspecified (ICD-10) Hyperuricemia ?E79.0 - Hyperuricemia without signs of inflammatory arthritis and tophaceous disease (ICD-10) HLD (hyperlipidemia) ?E78.5 - Hyperlipidemia, unspecified (ICD-10) Type 2 diabetes mellitus ?E11.9 - Type 2 diabetes mellitus without complications (ICD-10) HTN (hypertension) ?I10 - Essential (primary) hypertension (ICD-10) Social History (Updated 07/26/23 @ 14:57 by Shaikh Maritza MD) Within the past year, how often did you have a drink containing alcohol: never Within the past year, how many standard drinks containing alcohol did you have on a typical day: 1 or 2 Within the past year, how often did you have six or more drinks on one occasion: never Total score: 0 Score interpretation: A score less than 4 is consistent with normal alcohol consumption. Smoking status: Never smoker Non-prescribed substance use: denies use Highest level of school completed/degree received: high school graduate Exam Narrative Exam Narrative: Nurses notes and vital signs reviewed and patient is not hypoxic. General: Well-appearing and in no apparent distress. Skin: Warm, dry, no pallor noted. No rash. Head: Normocephalic, atraumatic. Neck: Supple, non-tender. Eye: Pupils are equal, round and EOMI. No scleral icterus. Ears, Nose, Mouth, and Throat: TM are clear, no nasal mucosal hypertrophy. Oral mucosa is moist, no posterior oropharynx erythema, uvula is mid-line Cardiovascular: Regular Rate and Rhythm without murmur, gallop or rub. Respiratory: No accessory muscle use or respiratory distress. Lungs are clear to auscultation, no wheezing, rales or rhonchi Chest Wall: no tenderness Back: No midline thoracic or lumbar vertebral tenderness. No CVA tenderness Musculoskeletal: normal ROM, no calf or popliteal tenderness, no lower extremity edema/swelling GI: Abdomen is soft, non-distended. Normal bowel sounds. There is a reducible abdominal wall hernia that is large with a large neck and also noted left lower quadrant abdominal pain Neurological: A&O x4. No cranial nerve dysfunction observed. No truncal ataxia. Moves all extremities. Sensation intact. Psychiatric: Cooperative and interactive. Normal mood and affect. Constitutional Vital Signs, click to edit/add: Last Vital Signs Temp 97.6 F 11/15/23 09:01 Pulse 70 11/15/23 11:10 Resp 14 11/15/23 11:10 BP 178/82 H 11/15/23 11:00 Pulse Ox 100 11/15/23 11:10 O2 Del Method Room Air 11/15/23 09:01 Course Vital Signs Vital signs: Vital Signs Temperature 97.6 F 11/15/23 09:01 Pulse Rate 75 11/15/23 09:01 Respiratory Rate 18 11/15/23 09:01 Blood Pressure 167/71 H 11/15/23 09:01 Pulse Oximetry 98 11/15/23 09:01 Oxygen Delivery Method Room Air 11/15/23 09:01 Temperature 97.6 F 11/15/23 09:01 Pulse Rate 70 11/15/23 11:10 Respiratory Rate 14 11/15/23 11:10 Blood Pressure 178/82 H 11/15/23 11:00 Pulse Oximetry 100 11/15/23 11:10 Oxygen Delivery Method Room Air 11/15/23 09:01 Medical Decision Making [facility] Narrative Medical decision making narrative: EKG showing sinus rhythm with a heart rate of [address] elevation or depression The patient CBC and chemistry showed no acute significant pathology with history of chronic kidney disease creatinine is 1.5 around his baseline and GFR is 43 The patient while awaiting the workup to be done had an episode during which the telemonitor was showing a systolic and epic pause of almost 20 seconds, by the time the patient was started to be evaluated he was pale not responding by the time the effort for CPR started the patient woke up. He was nauseous and vomiting again The patient EKG is sinus rhythm after the episode but the tracing showing a pause almost 20 seconds preceded by bradycardia CT abdomen pelvis showed no acute pathology The patient case was discussed with Dr. Alcaraz in cardiology service and she recommended the patient get CT PE I did explain to her that the patient have a chronic kidney disease and he will be provided with IV fluid as his GFR is above 40 and then will do the CT PE and she is agreeable with the plan The patient did not have any shortness of breath although he does have bilateral leg edema The patient CAT scan is pending and after discussing the case with Dr. Alcaraz she recommended that the patient be transferred for possible pacemaker in [facility] Dr Zimmer accepted the patient to be transferred to [facility] Meanwhile the patient being on potline monitor he does not have any episodes after that 1 episode that he had initially Lab Data Labs: Lab Results 11/15/23 11/15/23 Range/Units 09:12 10:38 WBC 6.8 (4.0-11.0) 10^3/uL RBC 3.79 L (4.70-6.10) 10^6/uL Hgb 12.3 L (14.0-18.0) g/dL Hct 37.1 L (42.0-54.0) % MCV 97.9 H (80.0-94.0) fL MCH 32.5 (25.9-34.0) pg MCHC 33.2 (29.9-35.2) g/dL RDW 14.6 (11.0-15.0) % Plt Count 165 (150-450) 10^3/uL MPV 11.0 (9.5-13.5) fL Seg Neuts % (Manual) 88.0 H (43.0-75.0) Lymphocytes % (Manual) 8.0 L (20.5-60.0) % Monocytes % (Manual) 3.0 (1.7-12.0) % Eosinophils % (Manual) 1.0 (0.9-7.0) % Basophils % (Manual) 0.0 L (0.2-2.0) % Neutrophils # (Manual) 5.98 (1.4-6.5) 10^3/uL Lymphocytes # (Manual) 0.54 L (1.20-3.80) 10^3/uL Monocytes # (Manual) 0.20 L (0.30-0.80) 10^3/uL Eosinophils # (Manual) 0.06 (0.00-0.70) 10^3/uL Basophils # (Manual) 0.00 (0.00-0.10) 10^3/uL VBG pH 7.338 (7.330-7.430) VBG pCO2 52.5 H (40.0-52.0) mmHg Sodium 141 (136-145) mmol/L Potassium 4.3 (3.5-5.1) mmol/L Chloride 105 (98-107) mmol/L Carbon Dioxide 30.4 (21.0-32.0) mmol/L Anion Gap 9.9 BUN 27.0 H (7.0-18.0) mg/dL Creatinine 1.53 H (0.70-1.30) mg/dL Est GFR ( Amer) 53 L (>=60) Est GFR (Non-Af Amer) 43 L (>=60) BUN/Creatinine Ratio 17.6 Glucose 146 H (74-106) mg/dL Calcium 8.3 L (8.5-10.1) mg/dL Magnesium 1.8 (1.8-2.4) mg/dL Total Bilirubin 0.5 (0.2-1.0) mg/dL AST 11 L (15-37) U/L ALT 14 L (16-63) U/L Alkaline Phosphatase 83 (46-116) U/L Troponin I High Sens 6.2 (4.0-76.1) pg/mL Total Protein 6.2 L (6.4-8.2) g/dL Albumin 2.9 L (3.4-5.0) g/dL Globulin 3.3 g/dL Albumin/Globulin Ratio 0.9 Lipase 13.0 L (16.0-77.0) U/L Discharge Plan Discharge Chief Complaint: Nausea/Vomiting/Diarrhea Clinical Impression: Sinus pause Syncope Qualifiers: Syncope type: unspecified Qualified Code(s): R55 - Syncope and collapse Patient Disposition: [facility] Time of Disposition Decision: 11:54 Discharge location: [facility]
--- OUTSIDE RECORDS SUMMARY | 2023-11-15 09:22 | XMS_ITS | CCD ---
Author Organization [facility] Care Team Providers Care Punch Out Crew Member Name Role Phone JUAN PABLO ALANIZ Primary [...] Unavailable EMILYANDER, PETER D Admitting Unavailable HIGHLANDER, MANDIE D Attending Unavailable LAANIZ, DR GOMEZ Primary Care Unavailable ZIEBER, DR [...] Admitting Unavailable HIGHLANDER, PETER D Attending Unavailable JUAN PABLO ALANIZ B Attending Unavailable ANTHONY, JUAN PABLO Basilio Attending Unavailable JUAN PABLO ALANIZ Attending Unavailable ALANIZJUAN PABLO Attending Unavailable JEFFREY GABRIEL Attending Unavailable CHET SANDOVAL Attending Unavailable CHET SANDOVAL Attending Unavailable CAIT PINTO Attending Unavailable CAIT PINTO Attending Unavailable Marianela Ingram Attending Unavailable Marianela Ingram Attending Unavailable Marianela Ingram Attending Unavailable Allergies Allergy Classification Reported Allergen(s) Allergy Type Date of Onset Reaction(s) Facility (10 sources) Penicillin; Translations: [penicillin] Drug Allergy 12-01-2021 Hives [facility] (2 sources) Penicillins Drug allergy (disorder) [facility] Repository Medications Current Medications Medication Drug Class(es) Dates Sig (Normalized) Sig (Original) allopurinol 300 mg oral tablet (8 sources) Xanthine Oxidase Inhibitor Start: 01-17-2021 take 1 mg by mouth once daily allopurinol 300 mg Tab mg tab(s), Oral, Daily, Refills(s) 0 Start Date: 01/17/21 Status: Ordered dicyclomine hydrochloride 20 mg oral tablet (6 sources) Anticholinergic Start: 01-17-2021 take 1 mg by mouth four times daily dicyclomine 20 mg Tab mg tab(s), Oral, QID, Refills(s) 0 Start Date: 01/17/21 Status: Ordered Docusate (8 sources) Start: 01-17-2021 docusate sodium Refills(s) 0 Start Date: 01/17/21 Status: Ordered donepezil hydrochloride 5 mg oral tablet (8 sources) Start: 01-17-2021 take 1 mg by mouth once daily at bedtime donepezil 5 mg Tab mg tab(s), Oral, Once a day (at bedtime), Refills(s) 0 Start Date: 01/17/21 Status: Ordered empagliflozin 10 mg / linagliptin 5 mg oral tablet (8 sources) Dipeptidyl Peptidase 4 Inhibitor, Sodium-Glucose Cotransporter 2 Inhibitor Start: 01-17-2021 take 1 tablet by mouth once daily in the morning Glyxambi 10 mg-5 mg oral tablet tab(s), Oral, qAM, Refill(s) 0 Start Date: 01/17/21 Status: Ordered gabapentin 100 mg oral capsule (8 sources) Anti-epileptic Agent Start: 01-17-2021 take 1 mg by mouth three times daily gabapentin 100 mg Cap mg cap(s), Oral, TID, Refills(s) 0 Start Date: 01/17/21 Status: Ordered glipiZIDE 10 mg oral tablet (8 sources) Sulfonylurea Start: 01-17-2021 take 1 mg by mouth once daily glipiZIDE 10 mg Tab mg tab(s), Oral, Daily, Refills(s) 0 Start Date: 01/17/21 Status: Ordered 24 hr metoprolol succinate 100 mg extended release oral tablet (8 sources) beta-Adrenergic Callum Start: 01-17-2021 take 1 [...] Daily, # 30 tab(s), Refills(s) 11, Pharmacy: [facility], 167, cm, 09/16/22 15:10:00 EDT, Height/Length Dosing, 120, kg, 09/16/22 15:10:00 EDT, Weight Dosing Start Date: 10/01/23 Status: Ordered Start: 09-16-2022 End: 09-11-2023 take 1 tablet by mouth once daily Vesicare 10 mg Tab 10 mg = 1 tab(s), Oral, Daily, X 30 day(s), # 30 tab(s), Refills(s) 11, Pharmacy: [facility], 167, cm, 09/16/22 15:10:00 EDT, Height/Length Dosing, 120, kg, 09/16/22 15:10:00 EDT, Weight Dosing Start Date: 09/16/22 Stop Date: 09/11/23 Status: Ordered Start: 04-26-2022 take 1 tablet by shannon th once daily Vesicare 5 mg Tab 5 mg = 1 tab(s), Oral, Daily, # 30 tab(s), Refills(s) 11, Pharmacy: [facility], 174, cm, 12/03/21 13:40:00 EDT, Height/Length Dosing, 112, kg, 12/03/21 13:40:00 EDT, Weight Dosing Start Date: 04/26/22 Status: Ordered tamsulosin hydrochloride 0.4 mg oral capsule (8 sources) alpha-Adrenergic Callum Start: 10-01-2023 take 1 capsule by mouth once daily Flomax 0.4 mg Cap 0.4 mg = 1 cap(s), Oral, Daily, # 30 cap(s), Refills(s) 11, Pharmacy: [facility], 167, cm, 09/16/22 15:10:00 EDT, Height/Length Dosing, 120, kg, 09/16/22 15:10:00 EDT, Weight Dosing Start Date: 10/01/23 Status: Ordered Start: 10-09-2022 take 1 capsule by [facility] once daily Flomax 0.4 mg Cap 0.4 mg = 1 cap(s), Oral, Daily, # 30 cap(s), Refills(s) 11, called to pharmacy (Rx) Start Date: 10/09/22 Status: Ordered Start: 10-25-2021 take 1 capsule by [facility] once daily Flomax 0.4 mg Cap 0.4 mg = 1 cap(s), Oral, Daily, # 90 cap(s), Refills(s) 3, Pharmacy: [facility], 174, cm, 09/03/21 13:40:00 EDT, Height/Length Dosing, 112.5, kg, 09/03/21 13:40:00 EDT, Weight Dosing Start Date: 10/25/21 Status: Ordered Start: 07-03-2021 take 1 capsule by [facility] once daily Flomax 0.4 mg Cap 0.4 mg = 1 cap(s), Oral, Daily, # 30 cap(s), Refills(s) 3, Pharmacy: [facility], 174, cm, 07/17/20 5:39:00 EDT, Height/Length Dosing, 112.5, kg, 07/17/20 5:39:00 EDT, Weight Dosing Start Date: 07/03/21 Status: Ordered 24 hr tolterodine tartrate 4 mg extended release oral capsule (4 sources) Cholinergic Muscarinic Antagonist Start: 01-17-2021 take 1 capsule by mouth once daily tolterodine 4 mg Cap-ER 4 mg = 1 cap(s), Oral, Daily, # 30 cap(s), Refills(s) 11, Pharmacy: [facility], 174, cm, 09/03/21 13:40:00 EDT, Height/Length Dosing, 112.5, kg, 09/03/21 13:40:00 EDT, Weight Dosing Start Date: 09/03/21 Status: Ordered vibegron 75 MG Oral Tablet [Gemtesa] (1 source) Start: 11-11-2023 take 1 tablet by mouth once daily Gemtesa 75 mg oral tablet 75 mg = 1 tab(s), Oral, Daily, # 30 tab(s), Refills(s) 3, Pharmacy: [facility], 167, cm, 11/11/23 13:29:00 EDT, Height/Length Dosing, 120, kg, 11/11/23 13:29:00 EDT, Weight Dosing Start Date: 11/11/23 Status: Ordered Problems Active Problems Problem Classification [...] Onset: 10-04-2021 Chronic Diabetes mellitus without complication (9 sources) Diabetes mellitus; Translations: [Type 2 diabetes mellitus without complications] Onset: 07-31-2022 07-17-2020 Chronic Diverticulosis and diverticulitis (8 sources) Diverticulitis 01-17-2021 Chronic Esophageal disorders (1 source) Gastro-esophageal reflux disease without esophagitis; Translations: [GERD WITHOUT ESOPHAGITIS] Onset: 12-11-2021 Chronic Essential hypertension (9 sources) Hypertensive disorder; Translations: [Essential (primary) hypertension] Onset: 03-06-2022 01-17-2021 Chronic Genitourinary symptoms and ill-defined conditions (12 sources) Urge incontinence; Translations: [Urge incontinence of urine] Onset: 12-03-2021 Chronic Genitourinary symptoms and ill-defined conditions (20 sources) Increased frequency of urination; Translations: [Frequency of micturition] Onset: 09-03-2021 Episodic Hyperplasia of prostate (17 sources) Benign prostatic hypertrophy with outflow obstruction; Translations: [Benign prostatic hyperplasia with lower urinary tract symptoms] Onset: 09-03-2021 Chronic Other aftercare (1 source) Other joint terminal attack controller (current) drug therapy; Translations: [OTH RIGGING MAN CURRENT DRUG THERAPY] Onset: 07-31-2022 Episodic Other aftercare (1 source) intermediate (current) use of oral hypoglycemic drugs; Translations: [NURSING HOME USE ORAL HYPOGLYCEMIC DX] Onset: 07-31-2022 Episodic Other connective tissue disease (8 sources) Calcaneal spur 01-17-2021 Episodic Other connective tissue disease (4 sources) Other muscle spasm; Translations: [OTHER MUSCLE SPASM] Onset: 05-23-2022 Episodic Other diseases of veins and lymphatics (1 source) Lymphedema, not elsewhere classified; Translations: [LYMPHEDEMA NOT ELSEWHERE CLASSIFIED] Onset: 12-11-2021 Chronic Other lower respiratory disease (8 sources) Nodule of lung 01-17-2021 Episodic Other lower respiratory disease (1 source) Shortness of breath; Translations: [SHORTNESS OF BREATH] Onset: 07-31-2022 Episodic Other nervous system disorders (8 sources) Neuropathy 01-17-2021 Chronic Other nervous system disorders (1 source) Other chronic pain; Translations: [OTHER CHRONIC PAIN] Onset: 04-18-2022 Chronic Other skin disorders (5 sources) Nail dystrophy; Translations: [NAIL DYSTROPHY] Onset: 04-30-2022 Episodic Residual codes; unclassified (8 sources) Amnesia 01-17-2021 Episodic Residual codes; unclassified (8 sources) Swelling - edema - symptom 01-17-2021 Episodic Screening and history of mental health and substance abuse codes (1 source) Personal history of nicotine dependence; Translations: [PERSONAL HISTORY OF NICOTINE DEPEND] Onset: 07-31-2022 Episodic Spondylosis; intervertebral disc disorders; other back problems (10 sources) Other intervertebral disc degeneration, lumbar region; Translations: [Spondylosis without myelopathy or radiculopathy, lumbar region] Onset: 12-13-2021 Chronic Substance-related disorders (8 sources) Smoker 01-19-2021 Chronic Comment on above: Added secondary to d ocumentation in Social History. Unclassified (8 sources) Finding of sensation of bladder 01-19-2021 [...] OF COVID-19] Onset: 03-06-2022 Unclassified (1 source) NURSING HOME INJECT NONINSULN ANTIDIAB; Translations: [RIGGING MAN INJECT NONINSULN ANTIDIAB] Onset: 03-02-2022 Past or [...] Test Name Value Interpretation Reference Range Facility Urology Office/Clinic Noteon 11-12-2023 Urology Office/Clinic Note Urology Office/Clinic Note Chief Complaint 1 year HPI Staff 83 year old male here for 1 f/u DX: urge incontinence and BPH with obstruction/LUTS Flomax 0.4mg qd and VESIcare 10mg qd Dysuria: no Incomplete bladder emptying: no, PVR 113mL Hematuria: no Frequency: every 2 hours or longer Urgency: yes Nocturia: 2-3x's Stream: good stream Post void dripping: mild Wearing pads/ Depends: yes, Pt. wears Depends Urge incontinence: no Stress incontinence: no Incontinence without Sensory Awareness: mild Abdominal pain: no Flank pain: no History of Present Illness Tests reviewed: reviewed UA I have reviewed the previous health record information and history for this patient from Dr. Ruffin. I have reviewed and verified the staff HPI to be accurate for this encounter. Review of Systems PHQ Score Initial Depression Screen Score: 0 SCORE ROS - Provider Constitutional: denies weight loss, denies hot flashes. Eyes: denies eye problems. Gastrointestinal: denies nausea, denies vomiting. Cardiovascular: denies chest pain or angina. Integumentary: no dryness Musculoskeletal: denies musculoskeletal symptoms. ENMT: denies otolaryngeal symptoms. Respiratory: no shortness of breath. Heme/Lymph: denies easy bleeding tendency, denies easy bruising tendency. Psychiatric: no confusion, no anxiety. Genitourinary: See HPI. Physical Exam Vitals & Measurements HT: 66 in HT: 167 cm WT: 120 kg WT: 264 lb BMI: 43.03 General Appearance: alert, no distress, well nourished, well developed male. assists in providing much of pt's hx, as she states he tends to be very forgetful. Assessment/Plan Pt is accompanied by his today. 1. Urge incontinence (N39.41: Urge incontinence) Tolterodine was cost prohibitive. Increased Vesicare to 10mg qd at last OV. Pt & states they are not sure he has had any improvement with increasing the dosage of Vesicare. Admits to having to change his depends about once per day. Feels the urgency is still the same. Admits to drinking about 2-3 cups of coffee per day and decaf at night. Denies drinking water, minimal other fluids. Educated pt and his how this can contribute to UUI sxs being a bladder irritant. Offered pt to try a different medication, like Myrbetriq or Gemtesa to help improve urinary sxs. SEs dicussed with pt and his . -d/c Vesicare -Initiate Gemtesa 75mg daily, pt is to call if too cost prohibitive, [facility] -f/up in 3 mos 2. BPH with obstruction/lower urinary tract symptoms (N40.1: Benign prostatic hyperplasia with lower urinary tract symptoms) PVR (cc): 11/11/23 - 110 (last voided approx 1 hr before appt) IPSS 17. Pt unable to provide urine sample today. Taking Flomax 0.4 mg qd. States he goes to the restroom every 2 hours or more, nocturia 2-3x per night & wears a depends. -See #1 -Cont flomax 0.4mg daily wo changes Follow-up With When Contact Information RAUL Ingram APRN, RIANNA Abad, URL Additional Instructions: f/up in 3 mos Patient Education Overactive Bladder, Adult I, Absity White, personally scribed for RAUL Salmon on 11/11/2023 13:54:07. . Documentation recorded by the triston Cordova accurately reflects the services(s) I performed and decisions made by me. Authenticated by Marianela Ingram APRN, FNP-C on 11/12/2023 21:45:44. Problem List/Past Medical History Ongoing BPH with obstruction/lower urinary tract symptoms Calcaneal spur Diverticulitis Edema Feeling of incomplete bladder emptying Hypertension Lung nodule Memory loss Neuropathy Nocturia Smoker Urge incontinence Urinary frequency Urinary urgency Historical Diabetes mellitus Procedure/Surgical History EGD - Esophagogastroduodenosc opy. Medications allopurinol 300 mg Tab, Oral, Daily docusate sodium donepezil 5 mg Tab, Oral, Once a day (at bedtime) Flomax 0.4 mg Cap, 0.4 mg= 1 cap(s), Oral, Daily, 11 refills gabapentin 100 mg Cap, Oral, TID glipiZIDE 10 mg Tab, Oral, Daily Glyxambi 10 mg-5 mg oral tablet, Oral, qAM metoprolol 100 mg ER Tab, Oral, Daily solifenacin 10 mg Tab, 10 mg= 1 tab(s), Oral, Daily, 11 refills Allergies penicillin (Hives) Social History Alcohol - Denies Alcohol Use, 01/19/2021 Tobacco Never (less than 100 in lifetime), Former smoker, quit more than 30 days ago Tobacco Use:. Never Smokeless Tobacco Use:., 11/11/2023 Family History Primary malignant neoplasm of lung: Father. Immunizations Vaccine Date Status influenza virus vaccine, inactivated 01/13/2023 Recorded influenza virus vaccine, inactivated 02/22/2022 Recorded SARS-CoV-2 (COVID-19) mRNA BNT-162b2 vax 12/21/2020 Recorded SARS-CoV-2 (COVID-19) mRNA BNT-162b2 vax 11/30/2020 Recorded influenza virus vaccine, inactivated 01/24/2020 Recorded influenza virus vaccine, inactivated 03/04/2019 Recorded pneumococcal 23-valent vac (more content not included)... Normal [place] Comment on above: Result Comment: Elec tronically Signed By: RAUL Ingram APRN, Marianela Rodriguez\.br\Date and Time Signed: 11/12/23 21:46 EDT\.br\Electronically Co-Signed By: Bob Cordova\.br\Date and Time Co-Signed: 11/11/23 13:54 EDT Ambulatory Visit Summaryon 0 11-11-2023 Ambulatory Visit Summary Ambulatory Visit Summary NAT MOORE :1940 Visit Date:11/11/2023 Ambulatory Visit Instructions Your Diagnosis Urge incontinence BPH with obstruction/lower urinary tract symptoms Your Care Team Attending Physician - RAUL Ingram APRN, [place] X Primary Care Physician - JUAN PABLO ALANIZ MD This Is Your Medications List solifenacin (solifenacin 10 mg Tab) Contact prescribing physician if questions or concerns allopurinol (allopurinol 300 mg Tab) docusate (docusate sodium) donepezil (donepezil 5 mg Tab) empagliflozin-linaglipt in (Glyxambi 10 mg-5 mg oral tablet) gabapentin (gabapentin 100 mg Cap) glipiZIDE (glipiZIDE 10 mg Tab) metoprolol (metoprolol 100 mg ER Tab) tamsulosin (Flomax 0.4 mg Cap) Procedures Performed EGD - Esophagogastroduodenosc opy. Discharge Vitals Height 167 cm Height 66 in Weight 120 kg Weight 264 lb BMI 43.03 What to do next Scheduled Follow-Up Appointments Friday 12:30 PM EST With: RAUL Ingram APRN, [place] X Where: [facility] [address] [place] [address]- You Need to Schedule the Following Appointments Follow Up with RAUL Ingram APRN, [place] X, RIANNA, URL When: Comments: f/up in 3 mos Where: Medications What How Much When Instructions Unchanged solifenacin (solifenacin 10 mg Tab) 1 Tablets By Mouth Every day Unchanged allopurinol (allopurinol 300 mg Tab) By Mouth Every day Contact prescribing physician if questions or concerns Unchanged docusate (docusate sodium) Contact prescribing physician if questions or concerns Unchanged donepezil (donepezil 5 mg Tab) By Mouth Once a day (at bedtime) Contact prescribing physician if questions or concerns Unchanged empagliflozin-linaglipt in (Glyxambi 10 mg-5 mg oral tablet) By Mouth Once a day (in the morning) Contact prescribing physician if questions or concerns Unchanged gabapentin (gabapentin 100 mg Cap) By Mouth 3 times a day Contact prescribing physician if questions or concerns Unchanged glipiZIDE (glipiZIDE 10 mg Tab) By Mouth Every day Contact prescribing physician if questions or concerns Unchanged metoprolol (metoprolol 100 mg ER Tab) By Mouth Every day Contact prescribing physician if questions or concerns Unchanged tamsulosin (Flomax 0.4 mg Cap) 1 Capsules By Mouth Every day Contact prescribing physician if questions or concerns Allergies penicillin (Hives) Problems Ongoing - Any problem that you are currently receiving treatment for. BPH with obstruction/lower urinary tract symptoms Calcaneal spur Diverticulitis Edema Feeling of incomplete bladder emptying Hypertension Lung nodule Memory loss Neuropathy Nocturia Smoker Urge incontinence Urinary frequency Urinary urgency Historical - Any problem that you are no longer receiving treatment for. Diabetes mellitus Patient Survey You may receive a survey via text or e-mail asking about your office visit. Please share your experience with us by completing your survey. We appreciate your feedback and thank you for choosing us for your care. Education Materials Overactive Bladder, Adult Overactive bladder is a [...] to urinate. Other symptoms include: ? Leaking ur (more content not included)... [facility] Patient Letter FTon 2023 Patient Letter [facility] Patient Letter FT October 14, 2023 NAT Tran [facility] [address] [place] [address] : 1940 Dear Nat, You missed your [...] any future cancellations. Sincerely, [facility] [address], [place] [address] [facility] Patient Letter FTon 2023 Patient Letter [facility] (Inserted Image. Yasmeen ble to display) May 13, 2023 NAT Tran [facility] [address] [place] [address] : 1940 Dear Nat, You missed your [...] [facility] [address], [place] [address] Normal [place] BNPon 07-27-2022 Natriuretic peptide B (Bld) [Mass/Vol] 178.0 pg/mL Normal <=1,800.[address] [facility] Comment on above: Performed By: #### C MP, BNP, CMADM #### [facility] [address] [place] [address] Dr. Loyd Parks CARDIAC SPARKLE ADMITon 023 CK [Catalytic activity/Vol] 50 U/L Normal 39-[address] [facility] Comment on above: Performed By: #### C MP, BNP, CMADM #### [facility] [address] [address] [address] Loyd Parks CK.MB [Mass/Vol] 0.83 ng/mL Normal <=3.60 [facility] Comment on above: Performed By: #### C MP, BNP, CMADM #### [facility] [address] [place] [address] Dr. Loyd Parks HSTROP 6.3 pg/mL Normal 4.0-76.[address] [facility] Comment on above: Result Comment: CUT- OFF POINTS HAVE BEEN ESTABLISHED BASED ON THE FOURTH UNIVERSAL DEFINITIONS OF MYOCARDIAL INFARCTION. THE UPPER REFERENCE LIMIT (URL) OF TROPONIN, DEFINED THE 99TH PERCENTILE OF cTnI DISTRIBUTION IN A REFERENCE POPULATION, HAS BEEN CONFIRMED THE DECISION THRESHOLD FOR OR DIAGNOSIS. Performed By: #### C MP, BNP, CMADM #### [facility] [address] [place] [address] Dr. Loyd Parks WM 121 ng/mL Critically high 16-96 [facility] Comment on above: Performed By: #### C MP, BNP, CMADM #### [facility] [address] [address] [address] Loyd Parks CBC AUTO DIFFon 07-27-2022 BASO # 0.1 103/ul Normal 0.0-0.[address] [facility] Comment on above: Performed By: #### C BC #### [facility] [address] [address] [address] Loyd Parks Basophils/100 WBC (Bld) 0.6 % Normal 0.2-2.[address] [facility] Comment on above: Performed By: #### C BC #### [facility] [address] [address] [address] Loyd Parks EO # 0.5 103/ul Normal 0.0-0.[address] [facility] Comment on above: Performed By: #### C BC #### [facility] [address] [place] [address] Dr. Loyd Parks Eosinophils/100 WBC (Bld) 4.8 % Normal 0.9-7.[address] [facility] Comment on above: Performed By: #### C BC #### [facility] [address] [place] [address] Dr. Loyd Parks Erythrocyte distribution width (RBC) [Ratio] 13.5 % Normal 11.0-15.[address] [facility] Comment on above: Performed By: #### C BC #### [facility] [address] [place] [address] Dr. Loyd Parks Hematocrit (Bld) [Volume fraction] 39.7 % Critically low 42.0-54.[address] [facility] Comment on above: Performed By: #### C BC #### [facility] [address] [place] [address] Dr. Loyd Parks Hemoglobin (Bld) [Mass/Vol] 13.1 g/dL Critically low 14.0-18.[address] [facility] Comment on above: Performed By: #### C BC #### [facility] [address] [place] [address] Dr. Loyd Parks IG # 0.05 10e3/ul Critically high 0.00-0.03 [facility] Comment on above: Performed By: #### C BC #### [facility] [address] [place] [address] Dr. Loyd Parks IG % 0.5 % Normal 0.0-0.[address] [facility] Comment on above: Performed By: #### C BC #### [facility] [address] [place] [address] Dr. Loyd Parks LYMPH # 1.4 103/ul Normal 1.2-3.[address] [facility] Comment on above: Performed By: #### C BC #### [facility] [address] [place] [address] Dr. Loyd Parks Lymphocytes/100 WBC (Bld) 14.1 % Critically low 20.5-60.[address] [facility] Comment on above: Performed By: #### C BC #### [facility] [address] [place] [address] Dr. Loyd Parks MANUAL DIFF REQ NO Normal [facility] Comment on above: Performed By: #### C BC #### [facility] [address] [place] [address] Dr. Loyd Parks MCH (RBC) [Entitic mass] 31.6 pg Normal 25.9-34.[address] [facility] Comment on above: Performed By: #### C BC #### [facility] [address] [place] [address] Dr. Loyd Parks MCHC (RBC) [Mass/Vol] 33.0 g/dL Normal 29.9-35.[address] [facility] Comment on above: Performed By: #### C BC #### [facility] [address] [place] [address] Dr. Loyd Parks MCV (RBC) [Entitic vol] 95.7 fL Critically high 80.0-94.[address] [facility] Comment on above: Performed By: #### C BC #### [facility] [address] [place] [address] Dr. Loyd Parks MONO # 1.0 103/ul Critically high 0.3-0.[address] [facility] Comment on above: Performed By: #### C BC #### [facility] [address] [address] [address] Loyd Parks Monocytes/100 WBC (Bld) 9.7 % Normal 1.7-12.[address] [facility] Comment on above: Performed By: #### C BC #### [facility] [address] [address] [address] Loyd Parks NEUT # 7.2 103/ul Critically high 1.4-6.5 [facility] Comment on above: Performed By: #### C BC #### [facility] [address] [address] [address] Loyd Parks Neutrophils/100 WBC (Bld) 70.3 % Normal 43.0-75.[address] [facility] Comment on above: Performed By: #### C BC #### [facility] [address] [place] [address] Dr. Loyd Parks Platelet mean volume (Bld) [Entitic vol] 10.8 fL Normal 9.5-13.[address] [facility] Comment on above: Performed By: #### C BC #### [facility] [address] [place] [address] Dr. Loyd Parks PLT 199 103/ul Normal 150-[address] [facility] [address] [facility] Comment on above: Performed By: #### C BC #### [facility] [address] [address] [address] Loyd Parks RBC 4.15 106/ul Critically low 4.70-6.10 [facility] Comment on above: Performed By: #### C BC #### [facility] [address] [place] [address] Dr. Loyd Parks WBC 10.2 103/ul Normal 4.0-11.[address] [facility] Comment on above: Performed By: #### C BC #### [facility] [address] [place] [address] Dr. Loyd Parks CULTURE BLOODon 07-27-2022 Microscopic examination of blood, culture Culture Observations: NO GROWTH AT 5 DAYS. Normal [facility] Comment on above: Performed By: #### E RUR #### [facility] [address] [place] [address] Dr. Loyd Parks Covid-19 PCR (CVDTB)on SARS-CoV-2 (COVID-19) RNA SAUNDRA+probe Ql (Unsp spec) Not detected Normal NOT DETECTED [facility] Comment on above: Result Comment: This test is not yet approved or cleared by the [place] FDA. When there are no FDA-approved or cleared tests available, and other criteria are met, FDA can make tests available under an emergency access mechanism called an Emergency Use Authorization (EUA). The EUA for this test is supported by the [place] of Health and Human Service's (HHS's) declaration [...] SARS-CoV-2. Performed By: #### E RUR #### [facility] [address] [place] [address] Dr. Loyd Parks LACTATE/LACTIC ACIDon 2022 Lactate [Moles/Vol] 2.2 mmol/L Critically high 0.4-2.[address] [facility] Comment on above: Performed By: #### C MP, BNP, CMADM #### [facility] [address] [place] [address] Dr. Loyd Parks PROF 14(COMP METB)on 023 Albumin [Mass/Vol] 3.3 g/dL Critically low 3.4-5.0 [facility] Comment on above: Performed By: #### C MP, BNP, CMADM #### [facility] [address] [place] [address] Dr. Loyd Parks Albumin/Globulin [Mass ratio] 0.9 {ratio} Normal [facility] Comment on above: Performed By: #### C MP, BNP, CMADM #### [facility] [address] [address] [address] Loyd Parks ALP [Catalytic activity/Vol] 91 U/L Normal 46-[address] [facility] Comment on above: Performed By: #### C MP, BNP, CMADM #### [facility] [address] [address] [address] Loyd Parks ALT [Catalytic activity/Vol] 18 U/L Normal 16-[address] [facility] Comment on above: Performed By: #### C MP, BNP, CMADM #### [facility] [address] [address] [address] Loyd Parks Anion gap [Moles/Vol] 12.2 mmol/L Normal [facility] Comment on above: Performed By: #### C MP, BNP, CMADM #### [facility] [address] [address] [address] Loyd Parks AST [Catalytic activity/Vol] 15 U/L Normal 15-[address] [facility] Comment on above: Performed By: #### C MP, BNP, CMADM #### [facility] [address] [address] [address] Loyd Parks Bilirubin [Mass/Vol] 0.4 mg/dL Normal 0.2-1.[address] [facility] Comment on above: Performed By: #### C MP, BNP, CMADM #### [facility] [address] [address] [address] Loyd Parks Calcium [Mass/Vol] 8.7 mg/dL Normal 8.5-10.1 [facility] Comment on above: Performed By: #### C MP, BNP, CMADM #### [facility] [address] [address] [address] Loyd Parks Chloride [Moles/Vol] 105 mmol/L Normal 98-[address] [facility] Comment on above: Performed By: #### C MP, BNP, CMADM #### [facility] [address] [address] [address] Loyd Parks CO2 [Moles/Vol] 28.0 mmol/L Normal 21.0-32.0 [facility] Comment on above: Performed By: #### C MP, BNP, CMADM #### [facility] [address] [place] [address] Dr. Loyd Parks Creatinine [Mass/Vol] 2.25 mg/dL Critically high 0.70-1.[address] [facility] Comment on above: Performed By: #### C MP, BNP, CMADM #### [facility] [address] [place] [address] Dr. Loyd Parks EGFR-AF BURMESE 34 mL/min/1.73m2 Critically low >=[address] [facility] Comment on above: Performed By: #### C MP, BNP, CMADM #### [facility] [address] [place] [address] Dr. Loyd Parks EGFR-NON AF BURMESE 28 mL/min/1.73m2 Critically low >=[address] [facility] Comment on above: Performed By: #### C MP, BNP, CMADM #### [facility] [address] [place] [address] Dr. Loyd Parks Globulin (S) [Mass/Vol] 3.8 g/dL Normal [facility] Comment on above: Performed By: #### C MP, BNP, CMADM #### [facility] [address] [place] [address] Dr. Loyd Parks Glucose [Mass/Vol] 88 mg/dL Normal 74-106 [facility] Comment on above: Performed By: #### C MP, BNP, CMADM #### [facility] [address] [place] [address] Dr. Loyd Parks Potassium [Moles/Vol] 4.2 mmol/L Normal 3.5-5.[address] [facility] Comment on above: Performed By: #### C MP, BNP, CMADM #### [facility] [address] [place] [address] Dr. Loyd Parks Protein [Mass/Vol] 7.1 g/dL Normal 6.4-8.2 [facility] Comment on above: Performed By: #### C MP, BNP, CMADM #### [facility] [address] [place] [address] Dr. Loyd Parks Sodium [Moles/Vol] 141 mmol/L Normal 136-145 [facility] Comment on above: Performed By: #### C MP, BNP, CMADM #### [facility] [address] [place] [address] Dr. Loyd Parks Urea nitrogen [Mass/Vol] 36.0 mg/dL Critically high 7.0-18.[address] [facility] Comment on above: Performed By: #### C MP, BNP, CMADM #### [facility] [address] [place] [address] Dr. Loyd Parks Urea nitrogen/Creatinine [Mass ratio] 16.0 mg/mg Normal [facility] Comment on above: Performed By: #### C MP, BNP, CMADM #### [facility] [address] [place] [address] Dr. Loyd Parks PROTIMEon 07-27-2022 INR Coag (PPP) [Relative time] 0.95 {INR} Normal [facility] Comment on above: Performed By: #### P T, PTT #### [facility] [address] [place] [address] Dr. Loyd Parks INR GUIDELINES SEE BELOW Normal [facility] Comment on above: Result Comment: MARIE RED INR: 2.0 - 3.0 CONDITIONS NOT LISTED BELOW 2.5 - 3.5 FOR PROSTHETIC HEART VALVE REPLACEMENT 2.5 - 3.5 RECURRENT THROMBOSIS Performed By: #### P T, PTT #### [facility] [address] [place] [address] Dr. Loyd Parks PT Coag (PPP) [Time] 10.1 s Normal 9.0-11.[address] [facility] Comment on above: Performed By: #### P T, PTT #### [facility] [address] [place] [address] Dr. Loyd Parks PTTon 07-27-2022 aPTT Coag (Bld) [Time] 27.3 s Normal 22.3-36.[address] [facility] Comment on above: Performed By: #### P T, PTT #### [facility] [address] [place] [address] Dr. Loyd Parks SYMPTOMATIC COVID-19 ANTIGEN on 07-27-2022 EUA Statement SEE BELOW Normal [facility] Comment on above: Result Comment: This test [...] sooner. Performed By: #### C VDAGS #### [facility] [address] [place] [address] Dr. Loyd Parks SARS-CoV-2 (COVID-19) RNA SAUNDRA+probe Ql (Unsp spec) Negative Normal NEGATIVE [facility] Comment on above: Performed By: #### C VDAGS #### [facility] [address] [place] [address] Dr. Loyd Parks XR CHEST 2 Von [...] ELIUD KAUR Date: 2022-07-26 22:19 Normal [facility] POINT OF CARE GLUCOSEon - Glucose [Mass/Vol] 102 mg/dL Normal 74-106 [facility] Comment on above: Performed By: #### C MP, BNP, CMADM #### [facility] [address] [place] [address] Dr. Loyd Parks ER URINE PROFILEon 2 Bilirubin Ql (U) Negative Normal NEGATIVE [facility] Comment on above: Performed By: #### E RUR #### [facility] [address] [place] [address] Dr. Loyd Parks Clarity (U) CLEAR Normal CLEAR [facility] Comment on above: Performed By: #### E RUR #### [facility] [address] [place] [address] Dr. Loyd Parks Color (U) LT. YELLOW Normal YELLOW [facility] Comment on above: Performed By: #### E RUR #### [facility] [address] [place] [address] Dr. Loyd CONWAY A micrscopic examination will be performed if indicated. Normal [facility] Comment on above: Performed By: #### E RUR #### [facility] [address] [place] [address] Dr. Loyd Parks Glucose Ql (U) 100 mg/dl Abnormal NEGATIVE [facility] Comment on above: Performed By: #### E RUR #### [facility] [address] [place] [address] Dr. Loyd Parks Hemoglobin Ql (U) Negative Normal NEGATIVE [facility] Comment on above: Performed By: #### E RUR #### [facility] [address] [place] [address] Dr. Loyd Parks Ketones Ql (U) Negative Normal NEGATIVE [facility] Comment on above: Performed By: #### E RUR #### [facility] [address] [place] [address] Dr. Loyd Parks LEUKOCYTES Negative Normal NEGATIVE [facility] Comment on above: Performed By: #### E RUR #### [facility] [address] [place] [address] Dr. Loyd Parks Nitrite Ql (U) Negative Normal NEGATIVE [facility] Comment on above: Performed By: #### E RUR #### [facility] [address] [place] [address] Dr. Loyd Parks pH (U) 5.5 [pH] Normal 5-[address] [facility] Comment on above: Performed By: #### E RUR #### [facility] [address] [place] [address] Dr. Loyd Parks SPEC GRAVITY 1.015 Normal 1.005-<=1.025 [facility] Comment on above: Performed By: #### E RUR #### [facility] [address] [place] [address] Dr. Loyd Parks UA PROTEIN Negative Normal NEGATIVE/ TRACE [facility] Comment on above: Performed By: #### E RUR #### [facility] [address] [place] [address] Dr. Loyd Parks UR MICRO IND NOT INDICATED Normal [facility] Comment on above: Performed By: #### E RUR #### [facility] [address] [place] [address] Dr. Loyd Parks Urobilinogen Qn (U) 0.2 {Malcolm'U}/dL Normal 0.2 - 1. [address] [facility] Comment on above: Performed By: #### E RUR #### [facility] [address] [place] [address] Dr. Loyd Parks GROUP A STREP CULTUREon 02-21 S. pyogenes Ag Ql (Unsp spec) Culture Observations: NEGATIVE FOR GROUP A STREPTOCOCCUS. Normal [facility] Comment on above: Performed By: #### S IGNACIA GRASTCX #### [facility] [address] [place] [address] Dr. Loyd Parks STREPT SCREENon 03-03-2022 STREP SCREEN A Negative Normal NEGATIVE [facility] Comment on above: Performed By: #### S IGNACIA GRASTCX #### [facility] [address] [place] [address] Dr. Loyd Parks Covid-19 PCR (CVDTB)on SARS-CoV-2 (COVID-19) RNA SAUNDRA+probe Ql (Unsp spec) Not detected Normal NOT DETECTED [facility] Comment on above: Result Comment: This test is not yet approved or cleared by the [place] FDA. When there are no FDA-approved or cleared tests available, and other criteria are met, FDA can make tests available under an emergency access mechanism called an Emergency Use Authorization (EUA). The EUA for this test is supported by the [place] of Health and Human Service's (HHS's) declaration [...] By: #### C MP, BNP, CMADM #### [facility] [address] [place] [address] Dr. Loyd Parks POINT OF CARE GLUCOSEon 10- Glucose [Mass/Vol] 133 mg/dL Critically high 74-106 [facility] Comment on above: Performed By: #### E RUR #### [facility] [address] [address] [address] Loyd Parks POINT OF CARE GLUCOSEon 09-0 Glucose [Mass/Vol] 75 mg/dL Normal 74-106 [facility] Comment on above: Performed By: #### E RUR #### [facility] [address] [place] [address] ABD/PELVIS WO CONon [...] SAURABH SINGH Date: 2021-09-03 08:35 Normal [facility] ER URINE PROFILEon 2 Bilirubin Ql (U) Negative Normal NEGATIVE [facility] Comment on above: Performed By: #### E RUR #### [facility] [address] [place] [address] Dr. Loyd Parks Clarity (U) CLEAR Normal CLEAR [facility] Comment on above: Performed By: #### E RUR #### [facility] [address] [place] [address] Dr. Loyd Parks Color (U) LT. YELLOW Normal YELLOW [facility] Comment on above: Performed By: #### E RUR #### [facility] [address] [place] [address] Dr. Loyd Parks ERUAHD A micrscopic examination will be performed if indicated. Normal [facility] Comment on above: Performed By: #### E RUR #### [facility] [address] [place] [address] Dr. Loyd Parks Glucose Ql (U) >1000 Abnormal NEGATIVE [facility] Comment on above: Performed By: #### E RUR #### [facility] [address] [place] [address] Dr. Loyd Parks Hemoglobin Ql (U) Negative Normal NEGATIVE [facility] Comment on above: Performed By: #### E RUR #### [facility] [address] [place] [address] Dr. Loyd Parks Ketones Ql (U) Negative Normal NEGATIVE [facility] Comment on above: Performed By: #### E RUR #### [facility] [address] [place] [address] Dr. Loyd Parks LEUKOCYTES Negative Normal NEGATIVE [facility] Comment on above: Performed By: #### E RUR #### [facility] [address] [place] [address] Dr. Loyd Parks Nitrite Ql (U) Negative Normal NEGATIVE [facility] Comment on above: Performed By: #### E RUR #### [facility] [address] [place] [address] Dr. Loyd Parks pH (U) 6.0 [pH] Normal 5-[address] [facility] Comment on above: Performed By: #### E RUR #### [facility] [address] [place] [address] Dr. Loyd Parks SPEC GRAVITY 1.010 Normal 1.005-<=1.[address] [facility] Comment on above: Performed By: #### E RUR #### [facility] [address] [address] [address] Loyd Parks UA PROTEIN Negative Normal NEGATIVE/ TRACE [facility] Comment on above: Performed By: #### E RUR #### [facility] [address] [address] [address] Loyd Parks UR MICRO IND NOT INDICATED Normal [facility] Comment on above: Performed By: #### E RUR #### [facility] [address] [address] [address] Loyd Parks Urobilinogen Qn (U) 0.2 {Malcolm'U}/dL Normal 0.2 - 1. [address] [facility] Comment on above: Performed By: #### E RUR #### [facility] [address] [place] [address] Dr. Loyd Parks ALCOHOLon 07-31-2020 Ethanol [Mass/Vol] mg/dL Normal [facility] Comment on above: Result Comment: FOR MEDICAL USE ONLY. . REF VALUES <10 Performed By: #### A LC ####[facility] [place] [address] CBC AND DIFFERENTIALon 07-31 % AUTOMATED IMMATURE GRAN 0.4 % Normal 0.0 - 0.9 [facility] Comment on above: Result Comment: Rylie ture Granulocyte Count (IG) includes promyelocytes, myelocytes and metamyelocytes but does not include bands. Percent differential counts (%) should be interpreted in the context of the absolute cell counts (cells/L). Performed By: #### C BCDF #### [facility] [address] [place] [address] Basophils (Bld) [#/Vol] 0.05 10*3/uL Normal 0.00 - 0.10 [facility] Comment on above: Performed By: #### C BCDF #### [facility] [address] [place] [address] Basophils/100 WBC (Bld) 0.6 % Normal 0.0 - 2.0 [facility] Comment on above: Performed By: #### C BCDF #### [facility] [address] [place] [address] Eosinophils (Bld) [#/Vol] 0.21 10*3/uL Normal 0.00 - 0.40 [facility] Comment on above: Performed By: #### C BCDF #### [facility] [address] [place] [address] Eosinophils/100 WBC (Bld) 2.4 % Normal 0.0 - 6.0 [facility] Comment on above: Performed By: #### C BCDF #### [facility] [address] [facility] [place] [place] [address] Erythrocyte distribution width (RBC) [Ratio] 13.2 % Normal 11.5 - 14.5 [facility] Comment on above: Performed By: #### C BCDF #### [facility] [address] [place] [address] Hematocrit (Bld) [Volume fraction] 50.0 % Normal 41.0 - 52.0 [facility] Comment on above: Performed By: #### C BCDF #### [facility] [address] [facility] [place] [address] Hemoglobin (Bld) [Mass/Vol] 17.3 g/dL Normal 13.5 - 17.5 [facility] Comment on above: Performed By: #### C BCDF #### [facility] [address] [place] [address] Lymphocytes (Bld) [#/Vol] 1.59 10*3/uL Normal 0.80 - 3.00 [facility] Comment on above: Performed By: #### C BCDF #### [facility] [address] [place] [address] Lymphocytes/100 WBC (Bld) 17.9 % Normal 13.0 - 44.0 [facility] Comment on above: Performed By: #### C BCDF #### [facility] [address] [place] [address] MCHC (RBC) [Mass/Vol] 34.6 g/dL Normal 32.0 - 36.0 [facility] Comment on above: Performed By: #### C BCDF #### [facility] [address] [place] [address] MCV (RBC) [Entitic vol] 89 fL Normal 80 - 100 [facility] Comment on above: Performed By: #### C BCDF #### [facility] [address] [place] [address] Monocytes (Bld) [#/Vol] 0.82 10*3/uL High 0.05 - 0.80 [facility] Comment on above: Performed By: #### C BCDF #### [facility] [address] [place] [address] Monocytes/100 WBC (Bld) 9.2 % Normal 2.0 - 10.0 [facility] Comment on above: Performed By: #### C BCDF #### [facility] [address] [place] [address] Neutrophils (Bld) [#/Vol] 6.18 10*3/uL High 1.60 - 5.50 [facility] Comment on above: Performed By: #### C BCDF #### [facility] [address] [place] [address] Neutrophils/100 WBC (Bld) 69.5 % Normal 40.0 - 80.0 [facility] Comment on above: Performed By: #### C BCDF #### [facility] [address] [place] [address] Platelets (Bld) [#/Vol] 215 10*3/uL Normal 150 - 450 [facility] Comment on above: Performed By: #### C BCDF #### [facility] [address] [place] [address] RBC 5.59 x10E12/L Normal 4.50 - 5.90 [facility] Comment on above: Performed By: #### C BCDF #### [facility] [address] [place] [address] WBC (Bld) [#/Vol] 8.9 10*3/uL Normal 4.4 - 11.3 [facility] Comment on above: Performed By: #### C BCDF #### [facility] [address] [place] [address] CHEST 1 VIEWon 07-31-2020 CHEST 1 VIEW STUDY: Chest Radiograph; 07/30/2020 10:53 PM INDICATION: Shortness of breath. COMPARISON: None available. ACCESSION NUMBER(S): [id number] ORDERING CLINICIAN: ZAID CUELLAR DO TECHNIQUE: Frontal chest was obtained at 2355 hours. FINDINGS: CARDIOMEDIASTINAL SILHOUETTE: Cardiomediastinal silhouette is normal in size and configuration. LUNGS: Lungs are clear. ABDOMEN: No remarkable upper abdominal findings. BONES: No acute osseous changes. IMPRESSION: No acute pulmonary abnormality. Signed by Rodrick Anna MD Electronically signed by: RODRICK ANNA MD Normal [facility] COMPREHENSIVE PANELon 2020 Albumin [Mass/Vol] 3.7 g/dL Normal 3.4 - 5.0 [facility] Comment on above: Performed By: #### C MP ####[facility] [place] [address] ALP [Catalytic activity/Vol] 80 U/L Normal 33 - 136 [facility] Comment on above: Performed By: #### C MP ####[facility] [place] [address] ALT [Catalytic activity/Vol] 12 U/L Normal 10 - 52 [facility] Comment on above: Result Comment: Jade ents treated with Sulfasalazine may generate falsely decreased results for ALT. Performed By: #### C MP ####[facility] [place] [address] Anion gap [Moles/Vol] 13 mmol/L Normal 10 - 20 [facility] Comment on above: Performed By: #### C MP ####[facility] [place] [address] AST [Catalytic activity/Vol] 12 U/L Normal 9 - 39 [facility] Comment on above: Performed By: #### C MP ####[facility] [facility] [place] [address] Bilirubin [Mass/Vol] 0.7 mg/dL Normal 0.0 - 1.2 [facility] Comment on above: Performed By: #### C MP ####[facility] [place] [address] Calcium [Mass/Vol] 9.2 mg/dL Normal 8.6 - 10.3 [facility] Comment on above: Performed By: #### C MP ####[facility] [place] [address] Chloride [Moles/Vol] 101 mmol/L Normal 98 - 107 [facility] Comment on above: Performed By: #### C MP ####[facility] [facility] [place] [address] Creatinine [Mass/Vol] 1.36 mg/dL High 0.50 - 1.30 [facility] Comment on above: Performed By: #### C MP ####[id number] [place] [address] GFR- AM. 61 mL/min/1.73m2 Normal >60 [facility] Hospital Comment on above: Result Comment: CALC ULATIONS OF ESTIMATED GFR ARE PERFORMED USING THE MDRD STUDY EQUATION FOR THE IDMS-TRACEABLE CREATININE METHODS. CLIN CHEM 2007;53:766-72 Performed By: #### C MP ####[facility] [place] [address] GFR-NON AM. 50 mL/min/1.73m2 Abnormal >60 [facility] Comment on above: Performed By: #### C MP ####[facility] [place] [address] Glucose [Mass/Vol] 390 mg/dL High 74 - 99 [facility] Comment on above: Performed By: #### C MP ####[facility] [place] [address] HCO3 (Bld) [Moles/Vol] 27 mmol/L Normal 21 - 32 [facility] Comment on above: Performed By: #### C MP ####[facility] [place] [address] Potassium [Moles/Vol] 4.1 mmol/L Normal 3.5 - 5.3 [facility] Comment on above: Performed By: #### C MP ####[facility] [facility] [address] Protein [Mass/Vol] 6.8 g/dL Normal 6.4 - 8.2 [facility] Comment on above: Performed By: #### C MP ####[facility] [facility] [address] Sodium [Moles/Vol] 137 mmol/L Normal 136 - 145 [facility] Comment on above: Performed By: #### C MP ####[facility] [facility] [place] [address] Urea nitrogen [Mass/Vol] 27 mg/dL High 6 - 23 [facility] Comment on above: Performed By: #### C MP ####[facility] [facility] [place] [address] CT HEAD WO CONTRASTon 2020 CT HEAD WO CONTRAST STUDY: CT Head without IV Contrast; 07/30/2020, 11:52 PM. INDICATION: Confusion, disorientation. COMPARISON: None Available. ACCESSION NUMBER(S): [id number] ORDERING CLINICIAN: ZAID CUELLAR DO TECHNIQUE: Noncontrast [...] MD Electronically signed by: RODRICK ANNA MD [facility] MAGNESIUMon 07-31-2020 Magnesium [Mass/Vol] 2.04 mg/dL Normal 1.60 - 2.40 [facility] Comment on above: Performed By: #### M G #### [facility] [address] [place] [address] PT/INRon 07-31-2020 PT Coag (PPP) [Time] 12.0 s Normal 10.1 - 13.3 [facility] Comment on above: Performed By: #### P TINR #### [facility] [address] [place] [address] PT, INR 1.0 Normal 0.9 - 1.1 [facility] Comment on above: Performed By: #### P TINR #### [facility] [address] [place] [address] Provider Note - ED v2on 07-22 Provider Note - ED v2 Provider Note - ED v2: Chart Review: ED NOTES ED NOTES: History: This is an 80-year-old male presenting from the [facility] by [facility] for chief complaint of a medical evaluation. Patient left his home in [place] 3 days ago because he got into an argument with his and he has not been back since. He was finally located at a [facility] down the street when family called. [...] From Triage - ED 30-Jul-2020 23:17 Normal [facility] Risk Screen - Adult Emergenc yon [...] instruction; written material Cultural Considerationsnone Developmental Considerationsnone Mandaeism Considerationsnone Learning Assessment (Other Learner): Learning Assessment (Other Learner): Other learner availableno Pressure Injury/TB/Substance: Pressure Injury: Do you have a coughno Substance Use Current or Former Historynever: Cigarette/Tobacco, e-Cigarette/Vaping, Alcohol, Street Drugs Admission Risk Screen: Significant IndicatorsComplete CAGE: CAGE: Is this an injured patient at a Trauma Center ([facility]/[place]/[place]): no Electronic Signatures: Elizabeth Ivan (MIGUEL) (Signed 30-Jul-2020 23:24) Authored: Preferred Language, Advanced Directives, Family Violence Adult, Learning Assessment (Patient), Learning Assessment (Other Learner), Pressure Injury/TB/Substance, Pressure Injury, CAGE Last Updated: 30-Jul-2020 23:24 by Elizabeth Ivan (RN) Normal [facility] TROPONIN Ion 07-31-2020 Troponin I.cardiac [Mass/Vol] ng/mL Normal 0.00 - 0.03 [facility] Comment on above: Result Comment: LESS [...] is performed using different testing methodology at [facility] than at other [facility]. Direct result comparisons should only be made within the same method. Performed By: #### T ROP2 #### [facility] [address] [place] [address] Triage - EDon 07-31-2020 Triage - ED [...] Arrival: stretcher Mode of Arrival: ambulance Agency: [facility] Agency Name: Monica Accompanied By: engagement director Language: Spoken Language Preferred: Tongan Reading Language Preferred: Tongan CHIEF COMPLAINT NAT MOORE is a Male [...] obeys commands Best Verbal Response: (V5) oriented [place] Score: 15 Allergies: yes Patient has homicidal [...] 30-Jul-2020 23:23 by Elizabeth Ivan (MIGUEL) Normal [facility] UA MICROSCOPICon 07-31-2020 RBC 1 /HPF Normal 0-5 [facility] Comment on above: Performed By: #### U AMIC #### [facility] [address] [place] [address] SQUAMOUS EPITH. CELLS <1 Normal [facility] Comment on above: Performed By: #### U AMIC #### [facility] [address] [place] [address] WBC 22 /HPF Abnormal 0-5 [facility] Comment on above: Performed By: #### U AMIC #### [facility] [address] [place] [address] URINALYSISon 07-31-2020 Appearance (U) CLEAR Normal CLEAR [facility] Comment on above: Performed By: #### U A #### [facility] [address] [place] [address] Bilirubin Ql (U) Negative Normal NEGATIVE [facility] Comment on above: Performed By: #### U A #### [facility] [address] [place] [address] Color (U) STRAW Normal STRAW,YELLOW [facility] Comment on above: Performed By: #### U A #### [facility] [address] [place] [address] Glucose Ql (U) >=500(3+) Abnormal NEGATIVE [facility] Comment on above: Performed By: #### U A #### [facility] [address] [place] [address] Hemoglobin Ql (U) SMALL(1+) Abnormal NEGATIVE [facility] Comment on above: Performed By: #### U A #### [facility] [address] [place] [address] Ketones Ql (U) Negative Normal NEGATIVE [facility] Comment on above: Performed By: #### U A #### [facility] [address] [place] [address] Leukocyte esterase Test strip Ql (U) TRACE Abnormal NEGATIVE [facility] Comment on above: Performed By: #### U A #### [facility] [address] [place] [address] Nitrite Ql (U) Negative Normal NEGATIVE [facility] Comment on above: Performed By: #### U A #### [facility] [address] [place] [address] pH (U) 6.0 [pH] Normal 5.0 - 8.0 [facility] Comment on above: Performed By: #### U A #### [facility] [address] [place] [address] Protein Ql (U) 100(2+) Abnormal NEGATIVE [facility] Comment on above: Performed By: #### U A #### [facility] [address] [place] [address] Specific gravity (U) [Rel density] 1.025 Normal 1.005 - 1.035 [facility] Comment on above: Performed By: #### U A #### [facility] [address] [place] [address] Urobilinogen (U) [Mass/Vol] mg/dL Normal 0.0 - 1.9 [facility] Comment on above: Performed By: #### U A #### [facility] [address] [place] [address] Vital Signs Date Time Vital Sign Value Performing Clinician Dontae fuentes 09-16-2022 14:48-0400 Blood Pressure Location Umer RUFFIN [facility] 09-16-2022 14:48-0400 Diastolic blood pressure 74 mm[Hg] Umer RUFFIN [facility] 09-16-2022 14:48-0400 Heart rate 70 /min Umer RUFFIN [facility] 09-16-2022 14:48-0400 Respiratory rate 16 /min Umer RUFFIN [facility] 09-16-2022 14:48-0400 Systolic blood pressure 130 mm[Hg] Umer RUFFIN [facility] 04-26-2022 11:04-0500 Blood Pressure Location Umer RUFFIN [facility] 04-26-2022 11:04-0500 Diastolic blood pressure 78 mm[Hg] Umer RUFFIN [facility] 04-26-2022 11:04-0500 Heart rate 62 /min Umer RUFFIN [facility] 04-26-2022 11:04-0500 Respiratory rate 16 /min Umer RUFFIN [facility] 04-26-2022 11:04-0500 Systolic blood pressure 134 mm[Hg] Umer RUFFIN [facility] 12-03-2021 13:08-0400 Blood Pressure Location Umer RUFFIN [facility] 12-03-2021 13:08-0400 Diastolic blood pressure 70 mm[Hg] Umer RUFFIN [facility] 12-03-2021 13:08-0400 Heart rate 65 /min Umer RUFFIN [facility] 12-03-2021 13:08-0400 Respiratory rate 16 /min Umer RUFFIN [facility] 12-03-2021 13:08-0400 Systolic blood pressure 109 mm[Hg] Umer RUFFIN [facility] 09-03-2021 13:39-0400 Blood Pressure Location Umer RUFFIN [facility] 09-03-2021 13:39-0400 Diastolic blood pressure 67 mm[Hg] Umer RUFFIN [facility] 09-03-2021 13:39-0400 Heart rate 68 /min [facility] RUFFIN [facility] 09-03-2021 13:39-0400 Respiratory rate 16 /min Umer RUFFIN [facility] [place] 09-03-2021 13:39-0400 Systolic blood pressure 102 mm[Hg] [facility]mer RUFFIN [facility] En[facility] Encounter Date Encounter Type Care Provider Facility Start: 02-10-2024 ambulatory Marianela X Orzech Facilit y:[facility] Start: 11-11-2023 End: 11-11-2023 ambulatory Marianela X Orzech Facility: [facility] Start: 11-11-2023 End: 11-11-2023 Patient encounter procedure [facility]zech [facility] Start: 10-23-2023 End: 10-23-2023 ambulatory CHET SANDOVAL Not Available Start: 10-14-2023 End: 10-14-2023 ambulatory Marianela X Orzech Facility: [facility] Start: 10-14-2023 End: 10-14-2023 Patient encounter procedure Marianela X Orzech [facility] Start: 10-09-2023 End: 10-09-2023 ambulatory JEFFREY GABRIEL Not Available Start: 08-01-2023 End: 08-01-2023 ambulatory JUAN PABLO ALANIZ Not Available Start: 06-19-2023 End: 06-19-2023 ambulatory JUAN PABLO ALANIZ Not Available Start: 05-13-2023 End: 05-13-2023 ambulatory CAIT PINTO Facility: [place] Start: 05-13-2023 End: 05-13-2023 Patient encounter procedure CAIT PINTO [facility] Start: 04-23-2023 End: 04-23-2023 ambulatory JUAN PABLO ALANIZ Not Available Start: 03-26-2023 End: 03-26-2023 ambulatory JUAN PABLO ALANIZ Not Available Start: 02-27-2023 End: 02-27-2023 ambulatory CHET SANDOVAL Not Available Start: 12-18-2022 End: 12-18-2022 ambulatory CAIT PINTO Facility:[facility] Start: 09-16-2022 End: 09-16-2022 Patient encounter procedure Umer RUFFIN [facility] Start: 07-26-2022 End: 07-27-[address] JUAN PABLO ALANIZ Facility:[facility] Start: 06-26-2022 End: 06-27-[address] JUAN PABLO ALANIZ Facility:[facility] Start: 05-23-2022 End: 05-24-[address] JUAN PABLO ALANIZ Facility:[facility] Start: 04-26-2022 End: 04-26-2022 Patient encounter procedure Umer RUFFIN [facility] Start: 04-22-2022 End: 04-23-[address] JUAN PABLO ALANIZ Facility:[facility] Start: 04-16-2022 End: 04-16-[address] JUAN PABLO ALANIZ Facility:[facility] Start: 04-08-2022 End: 04-08-2022 Patient encounter procedure Umer RUFFIN [facility] Start: 04-04-2022 ambulatory SHELLIE ROJAS . Facility:[facility] Start: 03-08-2022 End: 03-08-[address] JUAN PABLO ALANIZ Facility:[facility] Start: 03-04-2022 Encounter for preprocedural cardiovascular examination DR VINH HOLCOMB . [facility] Start: 03-04-2022 Encounter for preprocedural laboratory examination DR VINH HOLCOMB . [facility] Start: 03-03-2022 End: 03-03-[address] JUAN PABLO ALANIZ Facility:[facility] Start: 03-02-2022 Encounter for preprocedural cardiovascular examination DR VINH HOLCOMB . [facility] Start: 02-26-[address] VINH HOLCOMB . Faci lity:[facility] Start: 02-22-2022 End: 02-23-2022 Encounter for preprocedural cardiovascular examination DR VINH HOLCOMB . Facility:[facility] Start: 02-22-2022 End: 02-23-[address] VINH HOLCOMB . Facility:[facility] Start: 02-22-2022 End: 02-23-2022 Encounter for preprocedural laboratory examination DR VINH HOLCOMB . Facility:[facility] Start: 02-19-2022 End: 02-20-2022 ambulatory MANDIE Goodman [facility] Facility:[facility] Start: 02-04-[address] VINH HOLCOMB . Faci lity:[facility] Start: 01-22-2022 End: 01-23-[address] JUAN PABLO ALANIZ Facility:[facility] Start: 01-01-2022 End: 01-01-[address] VINH HOLCOMB . Facility:[facility] Start: 12-13-2021 End: 12-14-[address] VINH HOLCOMB . Facility:[facility] Start: 12-03-2021 End: 12-03-2021 Patient encounter procedure Umer RUFFIN [facility] Start: 11-29-2021 End: 11-30-2021 ambulatory MANDIE Goodman [facility] Facility:[facility] Start: 11-27-2021 End: 11-27-[address] VINH HOLCOMB . Facility:[facility] Start: 10-02-2021 End: 10-03-[address] VINH HOLCOMB . Facility:[facility] Start: 09-21-2021 End: 09-21-[address] SUJIT GR . Facility:[facility] Start: 09-19-2021 End: 09-20-2021 ambulatory MANDIE Goodman [facility] Facility:[facility] Start: 09-15-2021 End: 09-16-[address] SPARKLE NELSON Facility:[facility] Start: 09-03-2021 End: 09-03-2021 Patient encounter procedure Umer RUFFIN [facility] Start: 09-03-2021 End: 09-03-[address] JUAN PABLO ALANIZ Facility:[facility] Procedures Date Procedure Procedure Detail Performing Clinician Esophagogastroduodenoscopy Goldie RUFFIN Plan of Treatment Date Care Activity Detail Author Start: 08-22-2022 ambulatory Ambulatory Facility:[facility] 1 Immunizations Immunization Date Immunization Notes Care Provider Fa [facility] 01-13-2023 influenza virus vacc ine, unspecified formulation Marianela Ingram [facility] 02-22-2022 influenza virus vacc ine, unspecified formulation Umer RUFFIN [facility] 12-21-2020 SARS-CoV-2 (COVID-19 ) mRNA BNT-162b2 vax Umer RUFFIN [facility] 11-30-2020 SARS-CoV-2 (COVID-19 ) mRNA BNT-162b2 vax Umer RUFFIN [facility] 01-24-2020 influenza virus vacc ine, unspecified formulation Umer RUFFIN [facility] 03-04-2019 influenza virus vacc ine, unspecified formulation Umer RUFFIN [facility] 08-05-2018 pneumococcal polysaccharide vaccine, 23 valent Umer RUFFIN [facility] 12-18-2016 influenza virus vacc ine, unspecified formulation Umer RUFFIN [facility] 12-06-2015 influenza virus vacc ine, unspecified formulation Umer RUFFIN [facility] 12-21-2014 influenza virus vacc ine, unspecified formulation Umer RUFFIN [facility] Payers Date Payer Category Payer Unknown [id number] 1959 Unknown [id number] 1938 Unknown [id number] 2.16.84 0.1.863886.3.579.2.593 1938 Unknown [id number] 2.16.84 0.1.909413.3.579.2.593 1938 Unknown [id number] 2.16.84 0.1.061297.3.579.2.593 1938 Unknown [id number] 2.16.84 0.1.863370.3.579.2.593 1938 Unknown [id number] 2.16.84 0.1.489563.3.579.2.593 1938 Unknown [id number] 2.16.84 0.1.219692.3.579.2.593 1938 Unknown [id number] 2.16.84 0.1.149075.3.579.2.593 1938 Unknown [id number] 2.16.84 0.1.214615.3.579.2.593 1938 Unknown [id number] 2.16.84 0.1.961559.3.579.2.593 1938 Unknown [id number] 2.16.84 0.1.841980.3.579.2.593 1938 Unknown [id number] 2.16.84 0.1.471591.3.579.2.593 1938 Unknown [id number] 2.16.84 0.1.712708.3.579.2.593 1938 Unknown [id number] 2.16.84 0.1.878632.3.579.2.593 1938 Unknown [id number] 2.16.84 0.1.793626.3.579.2.593 1938 Unknown [id number] 2.16.84 0.1.748786.3.579.2.593 1938 Unknown [id number] 2.16.84 0.1.761465.3.579.2.593 1938 Unknown [id number] 2.16.84 0.1.747946.3.579.2.593 1938 Unknown [id number] 2.16.84 0.1.575368.3.579.2.593 1938 Unknown [id number] 2.16.84 0.1.694813.3.579.2.593 1938 Unknown [id number] 2.16.84 0.1.276078.3.579.2.593 1938 Unknown [id number] 2.16.84 0.1.717118.3.579.2.593 1938 Unknown [id number] 2.16.84 0.1.357501.3.579.2.593 1938 Unknown [id number] 2.16.84 0.1.274009.3.579.2.593 1938 Unknown [id number] 2.16.84 0.1.793065.3.579.2.593 1938 Unknown [id number] 2.16.84 0.1.411197.3.579.2.1259 1938 Unknown [id number] 2.16.84 0.1.141400.3.579.2.1259 1938 Unknown [id number] 2.16.84 0.1.194090.3.579.2.1259 1938 Unknown [id number] 2.16.84 0.1.103536.3.579.2.1259 1938 Unknown [id number] 2.16.84 0.1.268901.3.579.2.1259 1938 Unknown [id number] 2.16.840 .1.710723.3.579.2.1259 1938 Unknown [id number] 2.16.840 .1.323221.3.579.2.1259 1938 Unknown [id number] 2.16.8 40.1.843817.3.579.2.727 1938 Unknown [id number] 2.16.8 40.1.263236.3.579.2.727 1938 Unknown [id number] 2.16.8 40.1.723961.3.579.2.727 1938 Unknown [id number] 2.16.8 40.1.166539.3.579.2.727 1938 Unknown [id number] 2.16.8 40.1.885052.3.579.2.727 Social History Date Type Detail Facility Start: 09-03-2021 Tobacco smoking status Ex-smoker (fi nding) [facility] Sex Assigned At Male [facility] Start: 04-26-2022 End: 11-11-2023 Tobacco smoking status Never smoked tobacco (finding) [facility] Tobacco smoking status Never [facility] Functional Status Date Assessment Result Facility 11-11-2023 Functional Status N/A [facility] 09-16-2022 Functional Status N/A [facility] 04-26-2022 Functional Status N/A [facility] 12-03-2021 Functional Status N/A [facility] 09-03-2021 Functional Status N/A [facility] Clinical Notes 09-03-2021 to 11-11-2023 Note Date & Type Note Facility 11-11-2023 Hospital Discharge instructions Patient Education 11/11/2023 13:51:14 Overactive Bladder, Adult Overactive Bladder, Adult Overactive [...] your health care provider. General instructions Take egux-nqx-idczifl and prescription medicines only as told by [...] provider. Document Revised: 11/27/2020 Document Reviewed: 11/27/2020 [employer] Patient Education 2022 ezCater. Follow Up Care 10/14/2023 13:29:56 With:RAUL Ingram APRN, RIANNA Abad, URL Address: When: Unknown Comments:f/up in 3 mos [facility] 11-11-2023 Note Patient Education Obstetrics and Gynecology Overactive Bladder, [...] health care provider. General instructions ? Take sxro-gsz-afydduu and prescription medicines only as told by [...] urinate. This will help your health care (more content not included)... [place] 09-16-2022 Hospital Discharge instructions Patient Education 09/16/2022 [...] your health care provider. General instructions Take lgpe-ryf-oofcgzr and prescription medicines only as told by [...] provider. Document Revised: 11/27/2020 Document Reviewed: 11/27/2020 [employer] Patient Education 2022 [employer]ater. Follow Up Care 04/26/2022 11:39:09 With:ERIK MENG, Umer Schultz, URL Address: [facility] [address], [place] [address]- When: Unknown [facility] [place] 05-23-2022 Note CONSULTATION CONSULTATION DATE: 05/23/2022 [...] indicated. Patient agrees with this plan. [facility] 04-26-2022 Hospital Discharge instructions Patient Education [...] urethra. Follow these instructions at home: Take fovw-khk-fwblpbs and prescription medicines only as told by [...] 03/10/2006 Document Revised: 02/02/2019 Document Reviewed: 04/14/2017 [employer] Patient Education 2020 [employer]ater. Follow Up Care 04/08/2022 14:01:00 With:ERIK MENG, Umer Schultz, URL Address: [address] [place] [address]- When: Unknown [facility] 04-08-2022 Hospital Discharge instructions Patient Education 04/08/2022 [...] urethra. Follow these instructions at home: Take honh-apl-idrsfhn and prescription medicines only as told by [...] 03/10/2006 Document Revised: 02/02/2019 Document Reviewed: 04/14/2017 [employer] Patient Education 2020 e[employer]Cater. Follow Up Care 12/03/2021 14:11:02 With:ERIK MENG, Umer Schultz, EDDIEL Address: [facility] [address] , [place] [address]- When: Unknown [facility] 01-22-2022 Note CONSULTATION CONSULTATION DATE: 01/22/2022 CHIEF [...] proceed. CC: Juan Pablo Alaniz M.D. 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 He does not use heat or ice to his back at this time. Current medications include gabapentin 200 mg t.i.d., nabumetone 750 mg b.i.d., [place] 5/325 t.i.d. Patient does use a walking [...] L3 and L4, L5. A refill for Joel[place] 5/325 t.i.d. will be sent today. He will receive an oral U-Tox in the office today. Supportive measures such as stretching, a menthol heat rub and heat application to his back were discussed. I did recommend a Boost supplement daily. Patient will be followed up in the office post procedure and agrees to move forward. [facility] 12-03-2021 Hospital Discharge instructions Patient Education [...] urethra. Follow these instructions at home: Take etzf-mfx-fieyjqz and prescription medicines only as told by [...] 03/10/2006 Document Revised: 02/02/2019 Document Reviewed: 04/14/2017 [employer] Patient Education 2020 [employer]ater. Follow Up Care 09/03/2021 14:17:23 With:ERIK MENG, Umer Schultz, URL Address: [facility] [address] [place] [address]- [phone] When:04/04/2022 Comments:PVR [facility] [place] 10-02-2021 Note CONSULTATION PROCEDURE DATE: 10/02/2021 [...] he reports mitigation of his pain symptomatology. [facility] Signed and Approved by: DR VINH HOLCOMB . 10/09/2021 09:28:[address] [facility] 10-02-2021 Note CONSULTATION CONSULTATION DATE: 10/02/2021 [...] three times a day. We will re-prescribe [place] 5/325 t.i.d. which he had received from [...] to proceed. CC: Juan Pablo Alaniz M.D. [facility] Signed and Approved by: DR VINH HOLCOMB . 10/09/2021 09:28:[address] [facility] 09-03-2021 Hospital Discharge instructions Patient Education [...] 03/10/2006 Document Revised: 11/27/2018 Document Reviewed: 02/07/2017 [employer] Patient Education 2020 [employer]. 09/03/2021 13:53:06 Benign Prostatic Hyperplasia Benign Prostatic [...] urethra. Follow these instructions at home: Take iida-iyx-lcfllej and prescription medicines only as told by [...] 03/10/2006 Document Revised: 02/02/2019 Document Reviewed: 04/14/2017 [employer] Patient Education 2020 [employer]. Follow Up Care 07/03/2021 15:21:16 With:Umer RUFFIN MD, URL Address: [facility] [address], [place] [address]- [phone] When:Within 3 Month(s) Comments:f/u in 3 months with PVR scan [facility] Evaluation + Plan note Future Appointments Appointment Date:12/03/2021 01:15:00 PM Scheduled Provider:Umer RUFFIN MD Location:[facility] Appointment Type:URO Office Visit [facility] Evaluation + Plan note Future Appointments Appointment Date:04/08/2022 12:45:00 PM Scheduled Provider:Umer RUFFIN MD [facility] Appointment Type:URO Office Visit [facility] Evaluation + Plan note Future Appointments Appointment Date:04/26/2022 10:15:00 AM Scheduled Provider:Umer RUFFIN MD Location:[facility] Appointment Type:URO Office Visit [facility] Evaluation + Plan note Future Appointments Appointment Date:07/22/2022 08:45:00 AM Scheduled Provider:Umer RUFFIN MD [facility] Appointment Type:URO Office Visit [facility] Evaluation + Plan note Future Appointments Appointment Date:12/20/2022 08:30:00 AM Scheduled Provider:Umer RUFFIN MD Location[facility] Appointment Type:URO Office Visit [facility] Evaluation + Plan note Future Appointments Appointment Date:11/11/2023 01:00:00 PM Scheduled Provider:RAUL Ingram APRN, [place] [facility] Location:[facility] Appointment Type:URO Office Visit [facility] Evaluation + Plan note Future Appointments Appointment Date:02/10/2024 12:30:00 PM Scheduled Provider:RAUL Ingram APRN, [place] [facility] Location:[facility] Appointment Type:URO Office Visit [facility] Hospital course Narrative No data available for this section [facility] Discharge instructions No data available for this section [facility] Progress note No data available for this section [facility] Summary Purpose Family History No Family History Records FoundNo Family History Records Found No data available for this section No data available for this section No Family History Records Found No data available for this section No Family History Records Found Advance Directives No Advanced Directives Records FoundNo Advanced Directives Records FoundNo Advanced Directives Records FoundNo Advanced Directives Records Found Additional Source Comments (unrecognized sect ion and content) No Status Records FoundNo Status Records FoundNo Status Records FoundNo Status Records Found INFORMATION SOURCE (unrecogn ized section and content) DATE CREATED AUTHOR [facility]14/2020 [facility] DATE CREATED AUTHOR AUTHOR'S ORGANIZ ATION 08/02/2022 [facility] DATE CREATED AUTHOR AUTHOR'S ORGANIZ ATION 10/26/2023 [facility] EPIC DATE CREATED AUTHOR AUTHOR'S ORGANIZ ATION 11/13/2023 [facility] Care Team (unrecognized sect ion and content) Personnel Name: JUAN PABLO ALANIZ MD Address: [address] [place] [address] Personnel Name: JUAN PABLO ALANIZ MD Address: [address] [place] [address] Personnel Name: JUAN PABLO ALANIZ MD Address: Address: [address] [place] [address] Personnel Name: JUAN PABLO ALANIZ MD Address: Address: [address] [place] [address] Personnel Name: JUAN PABLO ALANIZ MD Address: Address: [address] [place] [address] Personnel Name: JUAN PABLO ALANIZ MD Address: Address: [address] [place] [address] Personnel Name: JUAN PABLO ALANIZ MD Address: Address: [address] [place] [address] Personnel Name: JUAN PABLO ALANIZ MD Address: Address: [address] [place] [address] FOR RECORDS PERTAINING TO PATIENTS WHO ARE [...] BE BASED ON THE PRIMARY CLINICAL RECORDS. [employer] provides no warranty or guarantee of the accuracy or completeness of information in this document.
[2023-11-15 09:33] LABS: Hematocrit 37.1 % (42.0-54.0); Hemoglobin 12.3 g/dL (14.0-18.0); Mean Corpuscular HGB Conc 33.2 g/dL (29.9-35.2); Mean Corpuscular Hemoglobin 32.5 pg (25.9-34.0); Mean Corpuscular Volume 97.9 fL (80.0-94.0); Platelet Count 165 10^3/uL (150-450); Red Blood Count 3.79 10^6/uL (4.70-6.10); Red Cell Distribution Width 14.6 % (11.0-15.0); White Blood Count 6.8 10^3/uL (4.0-11.0)
[2023-11-15 09:46] LABS: Alanine Aminotransferase 14 U/L (16-63); Albumin Globulin Ratio 0.9; Albumin Level 2.9 g/dL (3.4-5.0); Alkaline Phosphatase 83 U/L (46-116); Anion Gap 9.9; Aspartate Amino Transferase 11 U/L (15-37); BUN Creatinine Ratio 17.6; Bilirubin Total 0.5 mg/dL (0.2-1.0); Calcium 8.3 mg/dL (8.5-10.1); Carbon Dioxide 30.4 mmol/L (21.0-32.0); Chloride 105 mmol/L (98-107); Estimated GFR (African America 53 (>=60); Estimated GFR (Non-African Ame 43 (>=60); Globulin 3.3 g/dL; Glucose 146 mg/dL (74-106); Potassium 4.3 mmol/L (3.5-5.1); Sodium 141 mmol/L (136-145); Total Protein 6.2 g/dL (6.4-8.2); Troponin I High Sensitivity 6.2 pg/mL (4.0-76.1)
[2023-11-15 10:22] LABS: Eosinophils Absolute Manual 0.06 10^3/uL (0.00-0.70); Lymphocytes Absolute Manual 0.54 10^3/uL (1.20-3.80); Segmented Neut Absolute Manual 5.98 10^3/uL (1.4-6.5)
--- NOTE | 2023-11-15 10:26 | ECG_ITS ---
The 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
--- NOTE | 2023-11-15 10:27 | XR_ITS ---
The [address] [address] Patient Name: NAT MOORE MRN: [id number] date: 1940 Sex: M Assigned Patient Location: ER Current Patient Location: ED.MAIN Accession/Order Number: [id number] Exam Date: 11/15/2023 10:40 Report Date: 11/15/2023 11:56 At the request of: NOEL LAINEZ Procedure: XR chest 1V FRONTAL CHEST; 11/15/2023 10:40 AM EDT Clinical History:syncope Comparison: 10/26/2023 . AP portable upright film. External pacemaking/defibrillating pads are present obscures some detail. Osseous structures are without significant change. No significant change cardiac and mediastinal silhouettes or nevaeh. No interval failure pattern. Again, mild increased peribronchial markings at the right base. No pleural effusion. XR/XR chest 1V IMPRESSION: 1. No significant interval change as described. Electronically authenticated by: NATALI RHOADES Date: 11/15/2023 11:56
--- NOTE | 2023-11-15 10:28 | ECG_ITS ---
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
[2023-11-15] MEDS: PROCHLORPERAZINE 10 MG/2 ML VIAL 5 MG IV (10:31)
--- NOTE | 2023-11-15 10:32 | PC.NURSE ---
Pt became chioma cardiac, then asystole, pt was pale and diaphoretic and appeared not breathing nurse yelled his name and tried stimulating, pt opened eyes and rhythm returned, pt moved to rm 5 and quick patched in place. pt became nauseated and vomited. Pt states something happened . Dr byrd and orders received.
[2023-11-15] MEDS: 0.9 % SODIUM CHLORIDE 1,000 ML 1000 ML IV (10:41)
[2023-11-15 10:51] LABS: PCO2 VBG 52.5 mmHg (40.0-52.0); pH VBG 7.338 (7.330-7.430)
--- NOTE | 2023-11-15 11:03 | PC.NURSE ---
spoke to pt's , Donna, and informed her of pt's plan of care. She states she doesn't drive anymore so she will be finding a ride to hospital
[2023-11-15 11:22] LABS: Magnesium 1.8 mg/dL (1.8-2.4)
--- NOTE | 2023-11-15 11:54 | CT_ITS ---
The [address] [address] Patient Name: NAT MOORE MRN: [id number] date: 1940 Sex: M Assigned Patient Location: ER Current Patient Location: Accession/Order Number: [id number] Exam Date: 11/15/2023 11:40 Report Date: 11/15/2023 13:06 At the request of: NOEL LAINEZ Procedure: CT angio chest EXAM: CT angio chest HISTORY: syncope hypoxemia COMPARISON: Chest x-ray 11/15/2023 and earlier. No prior chest CT. CT abdomen pelvis including the lung bases 11/15/2023 and earlier. TECHNIQUE: CTA chest axial scans with reformatted coronal and sagittal images including MIP images. Individualized dose reduction used for this exam. Contrast: 100 mL Visipaque [id number] FINDINGS: Pulmonary arteries: Normal enhancement without thrombus or embolus. Normal sized pulmonary outflow tract. Lungs/pleura: No consolidation or edema or other acute process. Peripheral linear densities felt to be mild scarring. 7.7 mm circumscribed nodule left lung base lower lobe posteriorly pleural base chronic and unchanged felt to be benign. No new or suspicious focal lung lesion. Negative for pleural effusion or pneumothorax. Cardiac/vascular: Normal aortic enhancement with minor plaque. No dissection seen. Normal branches off the arch with minor plaque. Minimal aortic valve calcification. Coronary artery calcification. Normal heart size. No evidence of right ventricular strain. No pericardial effusion. No lower neck or axillary mass or adenopathy. No acute upper abdominal abnormality. No suspicious bone lesion. CT/CT angio chest IMPRESSION: Next line 1. Negative for pulmonary embolus or other acute abnormality. 2. Minor peripheral scarring in the lungs. Chronic stable benign-appearing nodule left lung base. Electronically authenticated by: ESPERANZA COLON Date: 11/15/2023 13:06
[2023-11-15] MEDS: HYDRALAZINE HCL 20 MG/ML VIAL 10 MG IVP (12:06)
[2023-11-15] MEDS: ONDANSETRON PF 4 MG/2 ML VIAL IV (12:58)
--- NOTE | 2023-11-15 13:04 | ECG_ITS ---
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
--- NOTE | 2023-11-15 13:30 | PC.NURSE ---
called pt Donna to let her know pt's going to be life-flighted. tried calling pt's son, Otis, and he did not answer. ANGELICA.
== END 2023-11-15 14:11 | disposition short-term general hospital (02) ==
PROVIDERS: Emergency Provider Emergency Medicine; PCP Internal Medicine
DX: I45.5 Other specified heart block (principal); R55 Syncope and collapse; N18.9 Chronic kidney disease, unspecified
CPT/HCPCS: 36415; 71045; 71275; 74176; 80053; 82800; 83690; 83735; 84484; 85007; 85027; 93005; 96361; 96374; 96375; 99285; J0360; J0780; J2405; Q9966

== ENCOUNTER 2023-12-26 21:55 | Emergency (ER) | payer MEDICARE, SELFPAY ==
[2023-12-26 22:00] VITALS: BP 148/75; PULSE 75; TEMP 36.3; O2SAT 99
[2023-12-26 22:02] VITALS: PULSE 73
--- OUTSIDE RECORDS SUMMARY | 2023-12-26 22:03 | XMS_ITS | CCD ---
Author Organization [facility] Care Team Providers Care Manager Civil Name Role Phone JUAN PABLO ALANIZ Primary Care Physician [phone] DR JUAN PABLO ALANIZ Primary Care Unavailable LUCIAN ., AI Admitting Unavailable LUCIAN ., AI Attending Unavailable KOBY ., ADELAIDA MORGAN Consulting UnavailMANDIE Burdick Attending Unavailable MANDIE NOBLE Admitting Unavailable CORBIN, DR GOMEZ Primary Care Unavailable MANDIE NOBLE Admitting Unavailable MANDIE NOBLE Attending Unavailable CORBIN, DR GOMEZ Primary Care Unavailable OMAR, DR SPARKLE Schultz Consulting Unavailable MAILE ., DR BECKETT Admitting Unavailable HAY ., DR BECKETT Attending Unavailable CORBIN, DR GOMEZ Primary Care Unavailable CORBIN, DR GOMEZ Primary Care Unavailable CARMINE, DR YAKELIN Lucas Consulting Unavailabl e CARMINE, DR YAKELIN Lucas Admitting Unavailabl e CARMINE, DR YAKELIN Lucas Attending Unavailabl e MAYITO ., CAROLIN Consulting Unavailable CRYSTAL .SHELLIE Consulting Unavailable ZHANG ., DR VINH Freeman Attending Unavailable CORBIN, DR GOMEZ Primary Care Unavailable ZHANG ., DR VINH Freeman Admitting Unavailable MANDIE NOBLE Attending Unavailable MANDIE NOBLE Admitting Unavailable CORBIN, DR GOMEZ Primary Care Unavailable ZHANG ., DR VINH Freeman Attending Unavailable CORBIN, DR GOMEZ Primary Care Unavailable ZHANG ., DR VINH Freeman Admitting Unavailable ZHANG ., DR VINH Freeman Consulting Unavailable HOLCOMB ., DR VINH Freeman Consulting Unavailable HOLCOMB ., DR VINH Freeman Admitting Unavailable HOLCOMB ., DR VINH Freeman Attending Unavailable CORBIN, DR GOMEZ Primary Care Unavailable HOLCOMB ., DR VINH Freeman Admitting Unavailable HOLCOMB ., DR VINH Freeman Attending Unavailable ROJAS .SHELLIE Consulting Unavailable CORBIN, DR GOMEZ Primary Care Unavailable CORBIN, DR GOMEZ Primary Care Unavailable HOLCOMB ., [...] Unavailable ALANIZ, DR GOMEZ Primary Care Unavailable HOLOCMB ., DR VINH Freeman Attending Unavailable ALANIZ, DR GOMEZ Primary Care Unavailable HOLCOMB ., DR VINH Freeman Admitting Unavailable ALANIZ, DR GOMEZ Primary Care Unavailable ALANIZ, DR GOMEZ Primary Care Unavailable LUCIAN ., AI Admitting Unavailable LUCIAN ., AI Attending Unavailable LUCIAN ., AI Consulting Unavailable ELIUD KAUR Consulting Unavailable CORBIN, DR GOMEZ Primary Care Unavailable EMILYANDER, PETER D Admitting Unavailable HIGHLANDER, PETER D Attending Unavailable ALANIZ, DR GOMEZ Primary Care Unavailable ZIAMOL, DR SAURABH Schultz Consulting Unavailable OMAR, DR SPARKLE Schultz Admitting Unavailable NELSON, DR SPARKLE Schultz Attending Unavailable LUCIAN ., AI Consulting Unavailable HOLCOMB ., DR VINH Freeman Admitting Unavailable HOLCOMB ., DR VINH Freeman Attending Unavailable ALANIZ, DR GOMEZ Primary Care Unavailable HOLCOMB ., DR VINH Freeman Attending Unavailable ALANIZ, DR GOMEZ Primary Care Unavailable HOLCOMB ., DR VINH Freeman Consulting Unavailable HOLCOMB ., DR VINH Freeman Admitting Unavailable CORBIN, DR GOMEZ Primary Care Unavailable LAKSHMIPATHY ., NARENDRANATH Admitting Yasmeen vailable LAKSHMIPATHY ., NARENDRANATH Attending Yasmeen vailable ALANIZ, DR GOMEZ Primary Care Unavailable HIGHLANDER, PETER D Admitting Unavailable HIGHLANDER, PETER D Attending Unavailable CAIT DUNHAM Attending Unavailable BLAIR, CAIT Chang Attending Unavailable Orzech, Marianela X Attending Unavailable Orzech, Marianela X Attending Unavailable Orzech, Marianela X Attending Unavailable JUAN PABLO ALANIZ Attending Unavailable JUAN PABLO ALANIZ Attending Unavailable JUAN PABLO ALANIZ Attending Unavailable JUAN PABLO ALANIZ Attending Unavailable JEFFREY GABRIEL Attending Unavailable CHET SANDOVAL Attending Unavailable LORI, CHET Burr Attending Unavailable LORICHET Attending Unavailable PROVIDER, UNKNOWN Admitting Unavailable PROVIDER, UNKNOWN Attending Unavailable GERARDO, ART Referring Unavailable GARCIA, SAM Referring Unavailable DIAB, CHAKA Referring Unavailable HORANI, GILES Admitting Unavailable GILES, BANG Attending Unavailable HORANI, GILES Referring Unavailable HORANI, GILES Referring Unavailable PIRKL, ANUEL Referring Unavailable HORANI, GILES Referring Unavailable HORANI, GILES Referring Unavailable GERARDO, ART Referring Unavailable GERARDO, ART Referring Unavailable RAJRENE M Referring Unavailable AHMED, IRFAN Primary Care Unavailable LORI, CHET Referring Unavailable AHMED, IRFAN Primary Care Unavailable JUAN DAVID LUI Attending Unavailable [facility] Unavailable Allergies Allergy Classification Reported Allergen(s) Allergy Type Date of Onset Reaction(s) Facility (10 sources) Penicillin; Translations: [penicillin] Drug Allergy 12-01-2021 [facility] (3 sources) Penicillins; Translations: [PENICILLINS] Drug allergy (disorder) 11-15-2023 [facility] Medications Current Medications Medication Drug Class(es) [...] extended release oral tablet (8 sources) beta-Adrenergic Levi Start: 01-17-2021 take 1 mg by mouth once daily metoprolol 100 mg ER Tab mg tab(s), Oral, Daily, Refills(s) 0 Start Date: 01/17/21 Status: Ordered solifenacin succinate 10 mg oral tablet (4 sources) Cholinergic Muscarinic Antagonist Start: 10-01-2023 take 1 tablet by mouth once daily solifenacin 10 mg Tab 10 mg = 1 tab(s), Oral, Daily, # 30 tab(s), Refills(s) 11, Pharmacy: [facility], 167, cm, 09/16/22 15:10:00 EDT, Height/Length Dosing, 120, kg, 09/16/22 15:10:00 EDT, Weight Dosing Start Date: 10/01/23 Status: Ordered Start: 09-16-2022 End: 09-11-2023 take 1 tablet by mouth once daily Vesicare 10 mg Tab 10 mg = 1 tab(s), Oral, Daily, X 30 day(s), # 30 tab(s), Refills(s) 11, Pharmacy: [facility], 167, cm, 09/16/22 15:10:00 EDT, Height/Length Dosing, 120, kg, 09/16/22 15:10:00 EDT, Weight Dosing Start Date: 09/16/22 Stop Date: 09/11/23 Status: Ordered Start: 04-26-2022 take 1 tablet by [facility] once daily Vesicare 5 mg Tab 5 mg = 1 tab(s), Oral, Daily, # 30 tab(s), Refills(s) 11, Pharmacy: [facility], 174, cm, 12/03/21 13:40:00 EDT, Height/Length Dosing, 112, kg, 12/03/21 13:40:00 EDT, Weight Dosing Start Date: 04/26/22 Status: Ordered tamsulosin hydrochloride 0.4 mg oral capsule (8 sources) alpha-Adrenergic Levi Start: 10-01-2023 take 1 capsule by mouth once daily Flomax 0.4 mg Cap 0.4 mg = 1 cap(s), Oral, Daily, # 30 cap(s), Refills(s) 11, Pharmacy: [facility], 167, cm, 09/16/22 15:10:00 EDT, Height/Length Dosing, 120, kg, 09/16/22 15:10:00 EDT, Weight Dosing Start Date: 10/01/23 Status: Ordered Start: 10-09-2022 take 1 capsule by [facility] once daily Flomax 0.4 mg Cap 0.4 mg = 1 cap(s), Oral, Daily, # 30 cap(s), Refills(s) 11, called to pharmacy (Rx) Start Date: 10/09/22 Status: Ordered Start: 10-25-2021 take 1 capsule by [facility] once daily Flomax 0.4 mg Cap 0.4 mg = 1 cap(s), Oral, Daily, # 90 cap(s), Refills(s) 3, Pharmacy: [facility], 174, cm, 09/03/21 13:40:00 EDT, Height/Length Dosing, 112.5, kg, 09/03/21 13:40:00 EDT, Weight Dosing Start Date: 10/25/21 Status: Ordered Start: 07-03-2021 take 1 capsule by [facility] once daily Flomax 0.4 mg Cap 0.4 mg = 1 cap(s), Oral, Daily, # 30 cap(s), Refills(s) 3, Pharmacy: [facility], 174, cm, 07/17/20 5:39:00 EDT, Height/Length Dosing, 112.5, kg, 07/17/20 5:39:00 EDT, Weight Dosing Start Date: 07/03/21 Status: Ordered 24 hr tolterodine tartrate 4 mg extended release oral capsule (4 sources) Cholinergic Muscarinic Antagonist Start: 01-17-2021 take 1 capsule by mouth once daily tolterodine 4 mg Cap-ER 4 mg = 1 cap(s), Oral, Daily, # 30 cap(s), Refills(s) 11, Pharmacy: [facility], 174, cm, 09/03/21 13:40:00 EDT, Height/Length Dosing, 112.5, kg, 09/03/21 13:40:00 EDT, Weight Dosing Start Date: 09/03/21 Status: Ordered vibegron 75 MG Oral Tablet [Gemtesa] (1 source) Start: 11-11-2023 take 1 tablet by mouth once daily Gemtesa 75 mg oral tablet 75 mg = 1 tab(s), Oral, Daily, # 30 tab(s), Refills(s) 3, Pharmacy: [facility], 167, cm, 11/11/23 13:29:00 EDT, Height/Length [...] unspecified; Translations: [COPD UNSPECIFIED] Onset: 03-06-2022 Chronic Conduction disorders (4 sources) Other specified heart block; Translations: [Presence of cardiac pacemaker] Onset: 11-15-2023 Chronic Coronary atherosclerosis and other heart disease (2 sources) Atherosclerotic heart disease of [place] coronary artery with unspecified angina pectoris; Translations: [Atherosclerotic heart disease of [place] coronary artery with unspecified angina pectoris] Onset: 11-15-2023 Chronic Diabetes mellitus with complications (4 sources) [...] WITHOUT ESOPHAGITIS] Onset: 12-11-2021 Chronic Essential hypertension (11 sources) Hypertensive disorder; Translations: [Essential (primary) hypertension] [...] 09-03-2021 Chronic Other aftercare (1 source) Other usp (current) drug therapy; Translations: [OTH NURSING HOME CURRENT DRUG THERAPY] Onset: 07-31-2022 Episodic Other aftercare (1 source) terminologist (current) use of oral hypoglycemic drugs; Translations: [NURSING HOME USE ORAL HYPOGLYCEMIC DX] Onset: 07-31-2022 Episodic Other connective tissue disease (8 sources) Calcaneal spur 01-17-2021 Episodic Other connective tissue disease (4 sources) Other muscle spasm; Translations: [OTHER MUSCLE SPASM] Onset: 05-23-2022 Episodic Other diseases of bladder and urethra (2 sources) Other specified disorders of bladder; Translations: [Other specified disorders of bladder] Onset: 11-15-2023 Chronic Other diseases of veins and lymphatics (1 source) Lymphedema, not elsewhere classified; Translations: [LYMPHEDEMA NOT ELSEWHERE CLASSIFIED] Onset: 12-11-2021 Chronic Other injuries and conditions due to external causes (1 source) Unspecified injury of head, initial encounter; Translations: [Unspecified injury of head, initial encounter] Onset: 11-28-2023 Episodic Other lower respiratory disease (8 sources) Nodule [...] Swelling - edema - symptom 01-17-2021 Episodic Residual codes; unclassified (2 sources) Edema, unspecified; Translations: [Edema, unspecified] Onset: 12-05-2023 Episodic Screening and history of mental health [...] secondary to d ocumentation in Social History. 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 [address] Hydrology Technician: Eliud Leonard MD BUN/CRE Ratio 20 Normal - [facility] Comment on above: Performed By: #### B MP #### [facility] [address] [place], [place] [id number] Hydrology Technician: Eliud Leonard MD Calcium [Mass/Vol] 8.5 mg/dL Low 8.6-10.4 [facility] Comment on above: Performed By: #### B MP #### [facility] [address] [place], [place] [id number] Hydrology Technician: Eliud Leonard MD Chloride [Moles/Vol] 108 mmol/L High 98-107 [facility] Comment on above: Performed By: #### B MP #### [facility] [address] [place] [address] Hydrology Technician: Eliud Leonard MD CO2 [Moles/Vol] 26 mmol/L Normal - [facility] Comment on above: Performed By: #### B MP #### [facility] [address] [place] [address] Hydrology Technician: Eliud Leonard MD Creatinine [Mass/Vol] 1.6 mg/dL High 0.70-1.20 [facility] Comment on above: Performed By: #### B MP #### [facility] [address] [place] [address] Hydrology Technician: Eliud Leonard MD GFR/1.73 sq M.predicted among non-blacks MDRD (S/P/Bld) [Vol rate/Area] 41 mL/min/{1.73_m2} Low >60 [facility] Comment on above: Result Comment: These results are not intended for use in patients <18 years of age. eGFR results are calculated without a race factor using the 2020 CKD-EPI equation. Careful clinical correlation is recommended, particularly when comparing to results calculated using previous equations. The CKD-EPI equation is less accurate in patients with extremes of muscle mass, extra-renal metabolism of creatine, excessive creatine ingestion, or following therapy that affects renal tubular secretion. Performed By: #### B MP #### [facility] [address] [place], [place] [id number] Hydrology Technician: Eliud Leonard MD Glucose [Mass/Vol] 66 mg/dL Low 74-99 [facility] Comment on above: Performed By: #### B MP #### [address] [place], [place] [id number] Hydrology Technician: Eliud Leonard MD Potassium [Moles/Vol] 4.3 mmol/L Normal 3.7-5.3 [facility] Comment on above: Performed By: #### B MP #### [facility] [address] [place], [place] [id number] Hydrology Technician: Eliud Leonard MD Sodium [Moles/Vol] 143 mmol/L Normal 136-145 [facility] Comment on above: Performed By: #### B MP #### [facility] [address] [place], [place] [id number] Hydrology Technician: Eliud Leonard MD Urea nitrogen [Mass/Vol] 32 mg/dL High 8-23 [facility] Comment on above: Performed By: #### B MP #### [facility] [address] [place] [address] Hydrology Technician: Eliud Leonard MD Cult,Urineon 12-01-2023 Cult,Urine Specimen Description .CLEAN CATCH URINE Culture NO SIGNIFICANT GROWTH Report Status FINAL 12/01/2023 Normal [facility] Comment on above: Performed By: #### U RC #### [facility] [address] [place], [place] [id number] Hydrology Technician: Darien Colorado MD [facility] [address] [place] [address] [place] [address] Hydrology Technician: Eliud Leonard MD Urinalysis, Routineon 2023 Bilirubin, SemiQt,Ur Negative Normal NEG [facility] Comment on above: Performed By: #### U A #### [address] [place], [facility] Hydrology Technician: Eliud Leonard MD Blood, Urine Negative Normal NEG [facility] Comment on above: Performed By: #### U A #### [address] [place] [address] Hydrology Technician: Eliud Leonard MD Clarity (U) Clear Normal CLEAR [facility] Comment on above: Performed By: #### U A #### [facility] [address] [place] [address] Dr. [place], [facility] Hydrology Technician: Eliud Leonard MD Color (U) Yellow Normal YEL [facility] Comment on above: Performed By: #### U A #### [facility] [address] [place] [address] [place] [address] Hydrology Technician: Eliud Leonard MD Glucose Ql (U) Negative Normal NEG [facility] Comment on above: Performed By: #### U A #### [facility] [address] [place] [address] [place], [place] [id number] Hydrology Technician: Eliud Leonard MD Ketones Ql (U) Negative Normal NEG [facility] Comment on above: Performed By: #### U A #### [facility] [address] [place] [address] Dr[place], [place] [id number] Hydrology Technician: Eliud Leonard MD Leukocyte esterase Test strip Ql (U) Negative Normal NEG [facility] Comment on above: Performed By: #### U A #### [facility] [address] [place] [address] [place], [place] [id number] Hydrology Technician: lEiud Leonard MD Nitrite,Ur Negative Normal NEG [facility] Comment on above: Performed By: #### U A #### [facility] [address] [place] [address] [place], [place] [id number] Hydrology Technician: Eliud Leonard MD PH,Ur 6.0 Normal 5.0-9.0 [facility] Comment on above: Performed By: #### U A #### [facility] [address] [place] [address] Dr. [place], [facility] Hydrology Technician: Eliud Leonard MD Protein Ql (U) Negative Normal NEG [facility] Comment on above: Performed By: #### U A #### [facility] [address] [place] [address] Dr. [place], [place] [id number] Hydrology Technician: Eliud Leonard MD Spec. [place],Ur 1.020 Normal 1.010-1.020 [facility] Comment on above: Performed By: #### U A #### [facility] [address] [place] [address] Dr. [place], [place] [id number] Hydrology Technician: Eliud Leonard MD Urobilinogen,Ur Normal Normal 0.0-1.0 [facility] Comment on above: Performed By: #### U A #### [facility] [address] [place] [address] [place] [address] Hydrology Technician: Eliud Leonard MD CT CERVICAL SPINE WO CONTRAS Ton 11-28-2023 CT CERVICAL SPINE WO CONTRAST EXAMINATION: CT OF THE HEAD WITHOUT CONTRAST; CT OF THE CERVICAL SPINE WITHOUT CONTRAST 11/28/2023 1:23 pm; 11/28/2023 1:28 pm TECHNIQUE: CT of the head was performed without the administration of intravenous contrast. Automated exposure control, iterative reconstruction, and/or weight based adjustment of the mA/kV was utilized to reduce the radiation dose to as low as reasonably achievable.; CT of the cervical spine was performed without the administration of intravenous contrast. Multiplanar reformatted images are provided for review. Automated exposure control, iterative reconstruction, and/or weight based adjustment of the mA/kV was utilized to reduce the radiation dose to as low as reasonably achievable. COMPARISON: None. HISTORY: ORDERING SYSTEM PROVIDED HISTORY: fall; head injury TECHNOLOGIST PROVIDED HISTORY: fall; head injury Decision Support Exception - unselect if not a suspected or confirmed emergency medical condition->Emergency Medical Condition (MA); ORDERING SYSTEM PROVIDED HISTORY: fall TECHNOLOGIST PROVIDED HISTORY: fall Decision Support Exception - unselect if not a suspected or confirmed emergency medical condition->Emergency Medical Condition ([place]) CT BRAIN FINDINGS: BRAIN/VENTRICLES: The cerebral hemispheres, brainstem, and cerebellum have a normal appearance for the patient's age. The falx is midline. The ventricles and peripheral sulci are [id number] dilated. There is decreased attenuation in the periventricular white matter. There is no sign of a space occupying lesion, infarction, or hemorrhage. Orbits: Portion of the orbits demonstrate no acute abnormality. SINUSES: . The imaged portions of the paranasal sinuses are clear. The mastoids and the middle ear chambers are clear. SOFT TISSUES/SKULL: No acute abnormality of the visualized skull or soft tissues.Vascular calcifications are seen compatible with atherosclerotic disease. CT CERVICAL SPINE FINDINGS: The cervical spine demonstrates decreased mineralization with straightening of the cervical lordosis. There is no evidence of fracture or subluxation. There is loss of disc height with erosive changes of the vertebral endplates at the C3-4, C4-5, C5-6, C6-7 levels. There are anterior and posterior marginal osteophytes at multiple levels. Mild spinal stenosis at C3-4 and C4-5. There is mild facet hypertrophy at multiple levels throughout the cervical spine. The pedicles and posterior elements are otherwise intact. The prevertebral and paravertebral soft tissues are unremarkable. The atlanto-dens interval and dens are intact. The visualized lung apices are clear. Vascular calcifications are seen compatible with atherosclerotic disease. IMPRESSION: Mild to moderate central and cortical cerebral atrophy. Moderate chronic deep white matter ischemic changes No acute intracranial abnormalities are noted. Multilevel cervical spondylosis and degenerative disc disease. Evidence of paracervical spasm. No acute bony abnormalities are noted in the cervical spine RECOMMENDATIONS: Further evaluation of the cervical spine should be obtained with MR imaging if clinically indicated. Interpreted by: Deacon Justice MD Signed by: Deacon Justice MD 11/28/23 Final result Normal [facility] CT HEAD WO CONTRASTon 2023 CT HEAD WO CONTRAST EXAMINATION: CT OF THE HEAD WITHOUT CONTRAST; CT OF THE CERVICAL SPINE WITHOUT CONTRAST 11/28/2023 1:23 pm; 11/28/2023 1:28 pm TECHNIQUE: CT of the head was performed without the administration of intravenous contrast. Automated exposure control, iterative reconstruction, and/or weight based adjustment of the mA/kV was utilized to reduce the radiation dose to as low as reasonably achievable.; CT of the cervical spine was performed without the administration of intravenous contrast. Multiplanar reformatted images are provided for review. Automated exposure control, iterative reconstruction, and/or weight based adjustment of the mA/kV was utilized to reduce the radiation dose to as low as reasonably achievable. COMPARISON: None. HISTORY: ORDERING SYSTEM PROVIDED HISTORY: fall; head injury TECHNOLOGIST PROVIDED HISTORY: fall; head injury Decision Support Exception - unselect if not a suspected or confirmed emergency medical condition->Emergency Medical Condition (MA); ORDERING SYSTEM PROVIDED HISTORY: fall TECHNOLOGIST PROVIDED HISTORY: fall Decision Support Exception - unselect if not a suspected or confirmed emergency medical condition->Emergency Medical Condition ([place]) CT BRAIN FINDINGS: BRAIN/VENTRICLES: The cerebral hemispheres, brainstem, and cerebellum have a normal appearance for the patient's age. The falx is midline. The ventricles and peripheral sulci are [id number] dilated. There is decreased attenuation in the periventricular white matter. There is no sign of a space occupying lesion, infarction, or hemorrhage. Orbits: Portion of the orbits demonstrate no acute abnormality. SINUSES: . The imaged portions of the paranasal sinuses are clear. The mastoids and the middle ear chambers are clear. SOFT TISSUES/SKULL: No acute abnormality of the visualized skull or soft tissues.Vascular calcifications are seen compatible with atherosclerotic disease. CT CERVICAL SPINE FINDINGS: The cervical spine demonstrates decreased mineralization with straightening of the cervical lordosis. There is no evidence of fracture or subluxation. There is loss of disc height with erosive changes of the vertebral endplates at the C3-4, C4-5, C5-6, C6-7 levels. There are anterior and posterior marginal osteophytes at multiple levels. Mild spinal stenosis at C3-4 and C4-5. There is mild facet hypertrophy at multiple levels throughout the cervical spine. The pedicles and posterior elements are otherwise intact. The prevertebral and paravertebral soft tissues are unremarkable. The atlanto-dens interval and dens are intact. The visualized lung apices are clear. Vascular calcifications are seen compatible with atherosclerotic disease. IMPRESSION: Mild to moderate central and cortical cerebral atrophy. Moderate chronic deep white matter ischemic changes No acute intracranial abnormalities are noted. Multilevel cervical spondylosis and degenerative disc disease. Evidence of paracervical spasm. No acute bony abnormalities are noted in the cervical spine RECOMMENDATIONS: Further evaluation of the cervical spine should be obtained with MR imaging if clinically indicated. Interpreted by: Deacon Justice MD Signed by: Deacon Justice MD 11/28/23 Final result Normal [facility] 30on 11-22-2023 30 The patient is Moderately Stable - Low risk of patient condition declining or worsening The patient's goals for the shift include rest/comfort The clinical goals for the shift include VSS Over the shift, the patient did not make progress toward the following goals. Barriers to progression include confusion. Recommendations to address these barriers include reorientation. Problem: Safety - Adult Goal: Free from fall injury Outcome: Progressing Problem: Chronic Conditions and Co-morbidities Goal: Patient's chronic conditions and co-morbidity symptoms are monitored and maintained or improved Outcome: Progressing Normal [facility] BASIC METABOLIC PANELon 08-3 Anion gap [Moles/Vol] 10 mmol/L Normal 7-20 [facility] Comment on above: Performed By: #### L [id number] ####[facility] (BEAKER)[address] [place] [address] Calcium [Mass/Vol] 8.0 mg/dL Low 8.6-10.3 [facility] Comment on above: Performed By: #### L [id number] ####[facility] (BEAKER)[address] [place] [address] Chloride [Moles/Vol] 111 mmol/L High 98-107 [facility] Comment on above: Performed By: #### L [id number] ####[facility] (BEAKER)[address] [place] [address] CO2 [Moles/Vol] 29 mmol/L Normal 21-31 [facility] Comment on above: Performed By: #### L [id number] ####[facility] [place] [address] Creatinine [Mass/Vol] 1.36 mg/dL High 0.70-1.30 [facility] Comment on above: Performed By: #### L [id number] ####[facility] ([facility] [place] [address] GLOMERULAR FILTRATION RATE ML/MIN/1.73 SQ M.PREDICTED 51.0 mL/min/1.73m*2 Low >60.0 [facility] Comment on above: Result Comment: The [facility]???s estimated glomerular filtration rate (eGFR) will no longer include consideration of race in its calculation. The National Kidney Foundation???s eGFR Task Force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 #### [facility] ([facility]) [address] [place] [address] PLATELETS (10*3/UL) IN BLOOD AUTOMATED COUNT 148 10*3/uL Low 150-400 [facility] Comment on above: Performed By: #### L [id number] #### [facility] ([facility]) [address] [place] [address] RBC (Bld) [#/Vol] 3.99 10*6/uL Low 4.20-5.70 [facility] Comment on above: Performed By: #### L [id number] #### [facility] ([facility]) [address] [place] [address] WBC (Bld) [#/Vol] 7.82 10*3/uL Normal 4.00-10.60 [facility] Comment on above: Performed By: #### L [id number] #### [facility] ([facility]) [address] [place] [address] Marian 11-17-2023 ANES -- Attestation signed by Sam Zelaya MD at 11/18/2023 7:19 AM By using the attestations below, the signing clinician agrees that I have read and verify that the documentation has been personally reviewed by me and ensure that the documentation accurately reflects the encounter. GC: I personally saw this patient on the day of the encounter, performed the ba portion(s) of the service and participated in the management and confirm the resident's documentation. Please note there may be an additional personal documentation from me. Patient: Nat Moore Procedure Information Date: 11/17/23 Procedure: Implant PPM Location: [facility] (Cath) Providers: Nora Rivera MD Clinical information reviewed: Allergies Meds Physical Exam Airway Mallampati: III Cardiovascular Rhythm: regular Rate: normal Dental Pulmonary Breath sounds clear to auscultation Abdominal Abdomen: soft Anesthesia Plan Additional Equipment Requests Normal [facility] BASIC METABOLIC PANELon 10-23 Anion gap [Moles/Vol] 11 mmol/L Normal 7-20 [facility] Comment on above: Performed By: #### L [id number] #### [facility] (BEAKER) [address] [place] [address] Calcium [Mass/Vol] 8.0 mg/dL Low 8.6-10.3 [facility] Comment on above: Performed By: #### L [id number] #### [facility] (BEAKER) [address] [place] [address] Chloride [Moles/Vol] 109 mmol/L High 98-107 [facility] Comment on above: Performed By: #### L [id number] #### [facility] (BEAKER) [address] [place] [address] CO2 [Moles/Vol] 25 mmol/L Normal 21-31 [facility] Comment on above: Performed By: #### L [id number] #### [facility] (BEAKER) [address] [place] [address] Creatinine [Mass/Vol] 1.42 mg/dL High 0.70-1.30 [facility] Comment on above: Performed By: #### L [id number] #### [facility] (BEAKER) [address] [place] [address] GLOMERULAR FILTRATION RATE ML/MIN/1.73 SQ M.PREDICTED 48.4 mL/min/1.73m*2 Low >60.0 [facility] Comment on above: Result Comment: The [facility]???s estimated glomerular filtration rate (eGFR) will no longer include consideration of race in its calculation. The National Kidney Foundation???s eGFR Task Force developed new recommendations for the estimation of the glomerular filtration rate in the [place] They recommend immediate implementation of the new equation refit without the race variable in all laboratories because the calculation does not include race. In addition to not including race in the calculation and reporting, it included diversity in its development, and has acceptable performance characteristics and potential consequences that do not disproportionately affect any one group of individuals. Performed By: #### L [id number] #### [facility] ([facility]) [address] [place] [address] Glucose [Mass/Vol] 169 mg/dL High 70-100 [facility] Comment on above: Performed By: #### L [id number] #### [facility] ([facility]) [address] [place] [address] Potassium [Moles/Vol] 4.3 mmol/L Normal 3.5-5.1 [facility] Comment on above: Performed By: #### L [id number] #### [facility] ([facility]) [address] [place] [address] Sodium [Moles/Vol] 141 mmol/L Normal 136-145 [facility] Comment on above: Performed By: #### L [id number] #### [facility] ([facility]) [address] [place] [address] Urea nitrogen [Mass/Vol] 33 mg/dL High 7-25 [facility] Comment on above: Performed By: #### L [id number] #### [facility] ([facility]) [address] [place] [address] UREA NITROGEN/CREATININ E (MASS RATIO) IN SER/PLAS 23.2 Normal [facility] Comment on above: Performed By: #### L [id number] #### [facility] ([facility]) [address] [facility] [place] [address] CBCon 11-17-2023 Erythrocyte distribution width (RBC) [Ratio] 14.9 % Normal 11.5-15.0 [facility] Comment on above: Performed By: #### L [id number] #### [facility] ([facility] [address] [place] [address] ERYTHROCYTE MEAN CORPUSCULAR HEMOGLOBIN CONCENTRATION (G/DL) BY AUTOMATED 32.2 g/dL Normal 32.0-35.0 [facility] Comment on above: Performed By: #### L [id number] #### [facility] ([facility]) [address] [place] [address] Hematocrit (Bld) [Volume fraction] 39.5 % Normal 39.0-55.0 [facility] Comment on above: Performed By: #### L [id number] #### [facility] ([facility]) [address] [place] [address] Hemoglobin (Bld) [Mass/Vol] 12.7 g/dL Low 13.0-17.0 [facility] Comment on above: Performed By: #### L [id number] #### [facility] ([facility]) [address] [place] [address] MCH (RBC) [Entitic mass] 31.8 pg Normal 27.0-33.0 [facility] Comment on above: Performed By: #### L [id number] #### [facility] (BEAKER) [address] [place] [address] MCV (RBC) [Entitic vol] 99.0 fL High 82.0-98.0 [facility] Comment on above: Performed By: #### L [id number] #### [facility] (BEAKER) [address] [place] [address] PLATELETS (10*3/UL) IN BLOOD AUTOMATED COUNT 157 10*3/uL Normal 150-400 [facility] Comment on above: Performed By: #### L [id number] #### [facility] (BEAKER) [address] [place] [address] RBC (Bld) [#/Vol] 3.99 10*6/uL Low 4.20-5.70 [facility] Comment on above: Performed By: #### L [id number] #### [facility] ([facility]) [address] [place] [address] WBC (Bld) [#/Vol] 9.04 10*3/uL Normal 4.00-10.60 [facility] Comment on above: Performed By: #### L [id number] #### [facility] ([facility]) [address] [place] [address] HEMOGLOBIN A1Con 11-17-2023 Glucose [Mass/Vol] 114 mg/dL Normal [facility] Comment on above: Order Comment: NO VA RIANT Performed By: #### L [id number] ####[facility] ([facility])[address] [place] [address] HbA1c (Bld) [Mass fraction] 5.6 % Normal 4.0-6.0 [facility] Comment on above: Order Comment: NO VA RIANT Performed By: #### L [id number] ####[facility] ([facility])[address] [place] [address] HPon 11-17-2023 HP -- Attestation signed by Sam Zelaya MD at 11/18/2023 7:18 AM I discussed the procedure in length with figures to the patient and went over the risks, benefits and alternatives of the PPM implantation procedure. I stated to the patient that the risk can be classified as major and minor complications. The minor include discomfort over the incision site, erythema. The major complications include pneumothorax, hemothorax, thromboembolism including DVT stroke systemic emboli endorgan damage and even . We also discussed the possibility of lead perforation leading to pericardial effusion or tamponade which may or may not require surgical intervention as well as the possibility of valve damage. Overall the risk of these complications ranged anywhere from 1-5%. Patient verbalized understanding and have agreed to proceed with the procedure. H&P reviewed. The patient was examined and there are no changes to the H&P. Proceed with placement of PPM in the AM. Normal [facility] LIPID PANELon 11-17-2023 CHOL/HDL 3.8 mg/dL Normal [facility] Comment on above: Performed By: #### L [id number] ####[facility] ([facility])[address] [place] [address] Cholesterol [Mass/Vol] 127 mg/dL Normal 120-200 [facility] Comment on above: Performed By: #### L [id number] ####[facility] ([facility])[address] [place] [address] Magnesium [Mass/Vol] 81 mg/dL Normal 40-149 [facility] Comment on above: Result Comment: TRIG LYCERIDE REFERENCE RANGE: 20 YEARS AND OLDER CARDIOVASCULAR RISK LESS THAN 150 mg/dL LOW RISK 150 TO 199 mg/dL BORDERLINE RISK 200 mg/dL AND GREATER HIGH RISK Performed By: #### L [id number] ####[facility] ([facility])[address] [facility] [place] [address] Magnesium [Mass/Vol] 78 mg/dL Normal 0-160 [facility] Comment on above: Performed By: #### L [id number] ####[facility] ([facility])[address] [facility] [place] [address] Magnesium [Mass/Vol] 33 mg/dL Normal 23-92 [facility] Comment on above: Performed By: #### L [id number] ####[facility] ([facility])[address] [place] [address] NON HDL CHOL. (LDL+VLDL) 94 Normal [facility] Comment on above: Performed By: #### L [id number] ####[facility] ([facility])[address] [place] [address] TOTAL VLDL-C 16 mg/dL Normal 0-40 [facility] Comment on above: Performed By: #### L [id number] ####[facility] ([facility])[address] [place] [address] LIPOPROTEIN A (LPA)on 2023 Magnesium [Mass/Vol] 23 mg/dL Normal <=29 [facility] Comment on above: Result Comment: Perf ormed By: [facility] [address] [place] [id number] Direct Marketing Specialist: Rivas Castillo MD, PhD CLIA Number: [id number] Performed By: #### L [id number] #### [facility] ([facility]) [address] [facility] [place] [address] MAGNESIUMon 11-17-2023 Magnesium [Mass/Vol] 2.0 mg/dL Normal 1.9-2.7 [facility] Comment on above: Performed By: #### L [id number] ####[facility] ([facility])[address] [place] [address] PHOSPHORUSon 11-17-2023 Magnesium [Mass/Vol] 3.1 mg/dL Normal 2.5-5.0 [facility] Comment on above: Performed By: #### L [id number] #### [facility] ([facility]) [address] [facility] [place] [address] 30on 11-16-2023 30 The patient is Moderately Unstable - Medium risk of patient condition declining or worsening The patient's goals for the shift include get restraints off The clinical goals for the shift include HR /needing less pacing Over the shift, the patient did not make progress toward the following goals. Barriers to progression include cont periods of low HR requiring pacing. Recommendations to address these barriers include cont plan of care. Problem: Cardiovascular - Adult Goal: Absence of cardiac dysrhythmias or at baseline Outcome: Not Progressing Normal [facility] ANESon 11-16-2023 ANES Patient: Nat Moore Choose an anesthesia record to view details Clinical information reviewed: Allergies Meds Physical Exam Airway Mallampati: III TM distance: >3 FB Neck ROM: full Cardiovascular Rhythm: regular Rate: normal Dental Pulmonary Breath sounds clear to auscultation Abdominal (+) obese Anesthesia Plan (Conscious sedation) Anesthetic plan and risks discussed with patient. Use of blood products discussed with patient who. Additional Equipment Requests Jovita Sanchez MD, MPH, [facility], [facility], [facility] Interventional Cardiology Pager Email: [email or web address] Normal [facility] B-TYPE NATRIURETIC PEPTIDEon 11-16-2023 Natriuretic peptide B (Bld) [Mass/Vol] 103 pg/mL High 0-100 [facility] Comment on above: Performed By: #### L [id number] #### [facility] (BEAKER) [address] [place] [address] BASIC METABOLIC PANELon 10-23 Anion gap [Moles/Vol] 10 mmol/L Normal 7-20 [facility] Comment on above: Performed By: #### L [id number] #### [facility] (BEAKER) [address] [place] [address] Calcium [Mass/Vol] 8.2 mg/dL Low 8.6-10.3 [facility] Comment on above: Performed By: #### L [id number] #### [facility] (BEAKER) [address] [place] [address] Chloride [Moles/Vol] 108 mmol/L High 98-107 [facility] Comment on above: Performed By: #### L [id number] #### [facility] (BEAKER) [address] [place] [address] CO2 [Moles/Vol] 27 mmol/L Normal 21-31 [facility] Comment on above: Performed By: #### L [id number] #### [facility] (BEAKER) [address] [place] [address] Creatinine [Mass/Vol] 1.53 mg/dL High 0.70-1.30 [facility] Comment on above: Performed By: #### L [id number] #### [facility] ([facility]) [address] [place] [address] GLOMERULAR FILTRATION RATE ML/MIN/1.73 SQ M.PREDICTED 44.3 mL/min/1.73m*2 Low >60.0 [facility] Comment on above: Result Comment: [facility]???s estimated glomerular filtration rate (eGFR) will no longer include consideration of race in its calculation. The National Kidney Foundation???s eGFR Task Force developed new recommendations for the estimation of the glomerular filtration rate in the [place] They recommend immediate implementation of the new equation refit without the race variable in all laboratories because the calculation does not include race. In addition to not including race in the calculation and reporting, it included diversity in its development, and has acceptable performance characteristics and potential consequences that do not disproportionately affect any one group of individuals. Performed By: #### L [id number] #### [facility] ([facility]) [address] [place] [address] Glucose [Mass/Vol] 124 mg/dL High 70-100 [facility] Comment on above: Performed By: #### L [id number] #### [facility] ([facility]) [address] [place] [address] Potassium [Moles/Vol] 4.3 mmol/L Normal 3.5-5.1 [facility] Comment on above: Performed By: #### L [id number] #### [facility] ([facility]) [address] [place] [address] Sodium [Moles/Vol] 141 mmol/L Normal 136-145 [facility] Comment on above: Performed By: #### L [id number] #### [facility] ([facility]) [address] [facility] [place] [address] Urea nitrogen [Mass/Vol] 31 mg/dL High 7-25 [facility] Comment on above: Performed By: #### L [id number] #### [facility] ([facility]) [address] [facility] [place] [address] UREA NITROGEN/CREATININ E (MASS RATIO) IN SER/PLAS 20.3 Normal [facility] Comment on above: Performed By: #### L [id number] #### [facility] [address] [place] [address] Anion gap [Moles/Vol] 10 mmol/L Normal 7-20 [facility] Comment on above: Performed By: #### L [id number] #### [facility] [address] [place] [address] Calcium [Mass/Vol] 8.1 mg/dL Low 8.6-10.3 [facility] Comment on above: Performed By: #### L [id number] #### [facility] (BEAKER) [address] [place] [address] Chloride [Moles/Vol] 108 mmol/L High 98-107 [facility] Comment on above: Performed By: #### L [id number] #### [facility] (BEAKER) [address] [place] [address] CO2 [Moles/Vol] 27 mmol/L Normal 21-31 [facility] Comment on above: Performed By: #### L [id number] #### [facility] (BEAKER) [address] [place] [address] Creatinine [Mass/Vol] 1.40 mg/dL High 0.70-1.30 [facility] Comment on above: Performed By: #### L [id number] #### [facility] ([facility] [address] [place] [address] GLOMERULAR FILTRATION RATE ML/MIN/1.73 SQ M.PREDICTED 49.3 mL/min/1.73m*2 Low >60.0 [facility] Comment on above: Result Comment: [facility]???s estimated glomerular filtration rate (eGFR) will no longer include consideration of race in its calculation. The National Kidney Foundation???s eGFR Task Force developed new recommendations for the estimation of the glomerular filtration rate in the [place] They recommend immediate implementation of the new equation refit without the race variable in all laboratories because the calculation does not include race. In addition to not including race in the calculation and reporting, it included diversity in its development, and has acceptable performance characteristics and potential consequences that do not disproportionately affect any one group of individuals. Performed By: #### L [id number] #### [facility] ([facility]) [address] [place] [address] Glucose [Mass/Vol] 136 mg/dL High 70-100 [facility] Comment on above: Performed By: #### L [id number] #### [facility] ([facility]) [address] [place] [address] Potassium [Moles/Vol] 4.3 mmol/L Normal 3.5-5.1 [facility] Comment on above: Performed By: #### L [id number] #### [facility] ([facility]) [address] [place] [address] Sodium [Moles/Vol] 141 mmol/L Normal 136-145 [facility] Comment on above: Performed By: #### L [id number] #### [facility] ([facility]) [address] [place] [address] Urea nitrogen [Mass/Vol] 27 mg/dL High 7-25 [facility] Comment on above: Performed By: #### L [id number] #### [facility] ([facility]) [address] [place] [address] UREA NITROGEN/CREATININ E (MASS RATIO) IN SER/PLAS 19.3 Normal [facility] Comment on above: Performed By: #### L [id number] #### [facility] ([facility]) [address] [place] [address] CBCon 11-16-2023 Erythrocyte distribution width (RBC) [Ratio] 15.1 % High 11.5-15.0 [facility] Comment on above: Performed By: #### L [id number] #### [facility] ([facility]) [address] [place] [address] ERYTHROCYTE MEAN CORPUSCULAR HEMOGLOBIN CONCENTRATION (G/DL) BY AUTOMATED 32.4 g/dL Normal 32.0-35.0 [facility] Comment on above: Performed By: #### L [id number] #### [facility] ([facility]) [address] [place] [address] Hematocrit (Bld) [Volume fraction] 36.7 % Low 39.0-55.0 [facility] Comment on above: Performed By: #### L [id number] #### [facility] ([facility]) [address] [place] [address] Hemoglobin (Bld) [Mass/Vol] 11.9 g/dL Low 13.0-17.0 [facility] Comment on above: Performed By: #### L [id number] #### [facility] ([facility]) [address] [place] [address] MCH (RBC) [Entitic mass] 32.0 pg Normal 27.0-33.0 [facility] Comment on above: Performed By: #### L [id number] #### [facility] ([facility]) [address] [place] [address] MCV (RBC) [Entitic vol] 98.7 fL High 82.0-98.0 [facility] Comment on above: Performed By: #### L [id number] #### [facility] ([facility]) [address] [place] [address] PLATELETS (10*3/UL) IN BLOOD AUTOMATED COUNT 157 10*3/uL Normal 150-400 [facility] Comment on above: Performed By: #### L [id number] #### [facility] ([facility]) [address] [place] [address] RBC (Bld) [#/Vol] 3.72 10*6/uL Low 4.20-5.70 [facility] Comment on above: Performed By: #### L [id number] #### [facility] [address] [place] [address] WBC (Bld) [#/Vol] 8.83 10*3/uL Normal 4.00-10.60 [facility] Comment on above: Performed By: #### L [id number] #### [facility] ([facility]) [address] [place] [address] on 11-16-2023 H&P reviewed. Apparently this morning, the patient continued to have long pauses of up to 7 seconds with seizure-like activity. He required transcutaneous pacing at 40 bpm multiple times. Given the above, and the original plan, we will proceed with temporary transvenous pacemaker placement. In addition, given his risk factor profile and complaints of chest pain, we will perform coronary angiography via the left radial approach. Risks, benefits, and alternatives were discussed with the patient; he understands and wishes to proceed. Jovita Sanchez MD, MPH, FACC, [facility], [facility] Interventional Cardiology Pager Email: [email or web address] .[facility] HP -- Attestation signed by Art Mckoy MD at 11/24/2023 1:40 PM (Updated) I reviewed the salient portions of the patient history. I have seen and examined the patient during rounds with the resident/fellow MICU team on 11/15. I repeated the ba components of the exam. Agree with the noted assessment and plan of Dr. Alcantar. Heart block/bradyarrhythmias causing hemodynamic instability requiring external transcutaneous pacing, coordination of care with cardiology, planned for transvenous pacing followed by PPM, monitored vital signs very closely in the ICU. Metabolic encephalopathy, use antipsychotics with caution and avoid QT prolonging medications The patient is critically ill and requires high complexity decision making for assessment and support including: frequent evaluation and titration of therapies; extensive interpretation of multiple databases; application of advanced monitoring technologies and assessment and treatment of complex metabolic derangement. Time spent in providing critical care services was 35 minutes excluding updating family members and performing procedures which are billed separately. Art Mckoy MD [facility] Pulmonary and Critical Care Medicine Adult ICU History & Physical Patient - Nat Moore Age - 83 y[facility]. [facility] 1940 [id number] Date of Admission - 11/15/2023 2:42 PM Chief Complaint Syncope History of Present Illness Nat Moore is a an 83-year-old gentleman with PMH significant for type 2 diabetes mellitus, essential hypertension, hyperlipidemia, CKD stage IIIa, bilateral lower extremity edema on diuretic therapy, osteoarthritis, depression and mild cognitive impairment was initially admitted to the hospitalist service from [place] due to recurrent episodes of syncope secondary to spontaneous prolonged sinus pauses. Over the last 3 hours the patient had progressively increasing sinus pauses and a CODE BLUE was called. By the time ICU team went to evaluate the patient and the patient had regained consciousness and was noted to be in first-degree AV block with heart rate in the 70s. The patient however was nauseated and confused unable to answer most questions appropriately hence remaining HPI has been collected through chart review. Over the past few months he has been having bilateral lower extremity edema for which he was started on diuretic therapy with only minimal improvement. Per ED note he had an episode of diarrhea last night and also had some intractable nausea with the left lower abdominal pain as a part of his presenting complaints. During his stay in [place] ED he suddenly developed bradycardia prolonged sinus pause up to 18 seconds and became unresponsive. Code was activated and at the beginning of CPR he had regained his consciousness. He had another episode of sinus pause of about 12 seconds prior to transfer, however did not lose his consciousness at this time. On arrival to this facility blood pressure was 158/72 mmHg, pulse rate 78 bpm, regular, SpO2 100% on room air, respiratory rate 20/min, temperature 97.2. 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 CT of the abdomen with contrast done at [place] ED showed nonobstructive bowel gas pattern with a small amount of stool within the colon, numerous diverticula along the sigmoid and descending colon without diverticulitis, no free air or free fluid or abscess noted. CTA of the chest was done which showed no evidence of PE or dissection. Basic labs notable for WBC 6.8, hemoglobin 12.3 g/dL, platelet 165. Showed a pH of 7.33, VBG pCO2 52. BMP showed sodium 141 mEq percent, potassium 4.3 mEq per 3, chloride 105, bicarb 30, creatinine 1.53 mg/dL, glucose 146, calcium 8.3, magnesium 1.8,, high sensitive troponin normal, albumin low lipase normal. Cardiology evaluated the patient on arrival. A stat transthoracic echocardiogram was done which showed normal LV function with a EF 60%, no wall motion abnormalities noted, no significant valvular abnormalities except for mild calcified aortic valve.. Today's event cardiology was reached out over the phone and they are currently planning on taking the patient to the Assistant Financial Accountant tomorrow for possible transvenous pacemaker placement. PMH: Patient has no past medical history on file. PSH: Patient has no past surgical history on file. SH: Patient reports that he has never smoked. He has never used smokeless tobacco. Alc/Tobacco/Drug: Patient has no history on file for alcohol use. reports that he has never smoked. He has never used smokeless tobacco. has no history on file for drug use. Medications: Patient Current Facility-Administered Medications: docusate sodium (C (more content not included)... Normal [facility] LACTIC ACID WITH 4 HOUR REFL EXon 11-16-2023 LACTATE (MMOL/L) IN SER/PLAS 1.2 mmol/L Normal 0.5-2.2 [facility] Comment on above: Performed By: #### L [id number] #### [facility] ([facility]) [address] [place] [address] MAGNESIUMon 11-16-2023 Magnesium [Mass/Vol] 2.1 mg/dL Normal 1.9-2.7 [facility] Comment on above: Performed By: #### L [id number] #### [facility] ([facility]) [address] [place] [address] Magnesium [Mass/Vol] 1.7 mg/dL Low 1.9-2.7 [facility] Comment on above: Performed By: #### L [id number] #### [facility] ([facility]) [address] [place] [address] PRO-BNPon 11-16-2023 Natriuretic peptide B (Bld) [Mass/Vol] 576 pg/mL High 0-300 [facility] Comment on above: Result Comment: An a ge-independent cutoff point of 300 pg/ml has a 98% negative predictive value excluding acute heart failure. Test Performed by [facility] [address] [place] [address] - Released 11/16/2023 20:27 Performed By: #### L [id number] ####[employer] [id number] [place] [address] TSH3 REFLEX TO FT4on 024 THYROTROPIN (MIU/L) IN SER/PLAS BY DETECTION LIMIT <= 0.05 MIU/L 1.67 mIU/L Normal 0.34-5.60 [facility] Comment on above: Performed By: #### L [id number] #### [facility] ([facility]) [address] [place] [address] 30on 11-15-2023 30 The patient is Moderately Stable - Low risk of patient condition declining or worsening The patient's goals for the shift include The clinical goals for the shift include Problem: Pain - Adult Goal: Verbalizes/displays adequate comfort level or baseline comfort level Outcome: Progressing Problem: Safety - Adult Goal: Free from fall injury Outcome: Progressing Problem: Chronic Conditions and Co-morbidities Goal: Patient's chronic conditions and co-morbidity symptoms are monitored and maintained or improved Outcome: Progressing Normal [facility] CBCon 11-15-2023 Erythrocyte distribution width (RBC) [Ratio] 15.2 % High 11.5-15.0 [facility] Comment on above: Performed By: #### L [id number] ####[facility] ([facility])[address] [place] [address] ERYTHROCYTE MEAN CORPUSCULAR HEMOGLOBIN CONCENTRATION (G/DL) BY AUTOMATED 32.8 g/dL Normal 32.0-35.0 [facility] Comment on above: Performed By: #### L [id number] ####[facility] ([facility])[address] [place] [address] Hematocrit (Bld) [Volume fraction] 37.8 % Low 39.0-55.0 [facility] Comment on above: Performed By: #### L [id number] ####[facility] ([facility] [place] [address] Hemoglobin (Bld) [Mass/Vol] 12.4 g/dL Low 13.0-17.0 [facility] Comment on above: Performed By: #### L [id number] ####[facility] ([facility] [place] [address] MCH (RBC) [Entitic mass] 31.9 pg Normal 27.0-33.0 [facility] Comment on above: Performed By: #### L [id number] ####[facility] ([facility] [place] [address] MCV (RBC) [Entitic vol] 97.2 fL Normal 82.0-98.0 [facility] Comment on above: Performed By: #### L [id number] ####[facility] ([facility])[address] [place] [address] PLATELETS (10*3/UL) IN BLOOD AUTOMATED COUNT 172 10*3/uL Normal 150-400 [facility] Comment on above: Performed By: #### L [id number] ####[facility] ([facility])[address] [place] [address] RBC (Bld) [#/Vol] 3.89 10*6/uL Low 4.20-5.70 [facility] Comment on above: Performed By: #### L [id number] ####[facility] ([facility])[address] [place] [address] WBC (Bld) [#/Vol] 8.89 10*3/uL Normal 4.00-10.60 [facility] Comment on above: Performed By: #### L [id number] ####[facility] ([facility])[address] [place] [address] COMPREHENSIVE METABOLIC PANE Dmitri 11-15-2023 Albumin [Mass/Vol] 3.7 g/dL Normal 3.5-5.7 [facility] Comment on above: Performed By: #### L [id number] #### [facility] ([facility]) [address] [place] [address] ALP [Catalytic activity/Vol] 70 U/L Normal 34-104 [facility] Comment on above: Performed By: #### L [id number] #### [facility] ([facility]) [address] [place] [address] ALT [Catalytic activity/Vol] 7 U/L Normal 7-52 [facility] Comment on above: Performed By: #### L [id number] #### [facility] ([facility]) [address] [place] [address] Anion gap [Moles/Vol] 9 mmol/L Normal 7-20 [facility] Comment on above: Performed By: #### L [id number] #### [facility] ([facility]) [address] [place] [address] AST [Catalytic activity/Vol] 11 U/L Low 13-39 [facility] Comment on above: Performed By: #### L [id number] #### [facility] ([facility]) [address] [place] [address] Bilirubin [Mass/Vol] 0.6 mg/dL Normal 0.3-1.0 [facility] Comment on above: Performed By: #### L [id number] #### [facility] ([facility]) [address] [place] [address] Calcium [Mass/Vol] 8.2 mg/dL Low 8.6-10.3 [facility] Comment on above: Performed By: #### L [id number] #### [facility] ([facility]) [address] [place] [address] Chloride [Moles/Vol] 107 mmol/L Normal 98-107 [facility] Comment on above: Performed By: #### L [id number] #### [facility] ([facility]) [address] [place] [address] CO2 [Moles/Vol] 29 mmol/L Normal 21-31 [facility] Comment on above: Performed By: #### L [id number] #### [facility] ([facility]) [address] [place] [address] Creatinine [Mass/Vol] 1.37 mg/dL High 0.70-1.30 [facility] Comment on above: Performed By: #### L [id number] #### [facility] ([facility]) [address] [place] [address] GLOMERULAR FILTRATION RATE ML/MIN/1.73 SQ M.PREDICTED 50.6 mL/min/1.73m*2 Low >60.0 [facility] Comment on above: Result Comment: The [facility]???s estimated glomerular filtration rate (eGFR) will no longer include consideration of race in its calculation. The [employer]???s eGFR Task Force developed new recommendations for the estimation of the glomerular filtration rate in the [place] They recommend immediate implementation of the new equation refit without the race variable in all laboratories because the calculation does not include race. In addition to not including race in the calculation and reporting, it included diversity in its development, and has acceptable performance characteristics and potential consequences that do not disproportionately affect any one group of individuals. Performed By: #### L [id number] #### [facility] ([facility]) [address] [place] [address] Glucose [Mass/Vol] 120 mg/dL High 70-100 [facility] Comment on above: Performed By: #### L [id number] #### [facility] ([facility]) [address] [place] [address] Potassium [Moles/Vol] 4.1 mmol/L Normal 3.5-5.1 [facility] Comment on above: Performed By: #### L [id number] #### [facility] ([facility]) [address] [place] [address] Protein [Mass/Vol] 6.0 g/dL Normal 6.0-8.3 [facility] Comment on above: Performed By: #### L [id number] #### [facility] ([facility]) [address] [place] [address] Sodium [Moles/Vol] 141 mmol/L Normal 136-145 [facility] Comment on above: Performed By: #### L [id number] #### [facility] ([facility]) [address] [place] [address] Urea nitrogen [Mass/Vol] 26 mg/dL High 7-25 [facility] Comment on above: Performed By: #### L [id number] #### [facility] ([facility]) [address] [place] [address] UREA NITROGEN/CREATININ E (MASS RATIO) IN SER/PLAS 19.0 Normal [facility] Comment on above: Performed By: #### L [id number] #### [facility] ([facility]) [address] [facility] [place] [address] CONSULTon 11-15-2023 CONSULT Division of Cardiovascular Medicine Interventional Cardiology Consult Chief Complaint: Transfer from [place] HPI: 83 yo with h/o HTN, CKD, dyslipidemia presented to [facility] with c/o chest and back pain. While being evaluated he had episodes of prolonged sinus pauses (12-18 sec?) with loss of consciousness and vomiting. He was Life flighted to [facility]. On arrival , I evaluated him at around 3pm; he was asymptomatic. His vital signs were normal. Telemetry showed sinus rhythm. He has been complaining of lighheadedness recently. Denies syncope. He also complains of chest pain with exertion and at rest. He denies orthopnea, or PND but has had worsening lower extremity edema. No know h/o CAD, prior myocardial infarctions or CHF. Does not see a pump rebuilder. Patient Active Problem List Diagnosis Syncope and collapse No family history on file. Social History Tobacco Use Smoking status: Never Smokeless tobacco: Never Past Medical History He has no past medical history on file. Surgical History He has no past surgical history on file. Family History No family history on file. Allergies Penicillins Medications Current Facility-Administered Medications: docusate sodium (Colace) capsule 100 mg, 100 mg, oral, Daily, Nils Zimmer MD, 100 mg at 11/15/231824 FLUoxetine (PROzac) capsule 20 mg, 20 mg, oral, Daily, Nils Zimmer MD, 20 mg at 11/15/231824 melatonin tablet 5 mg, 5 mg, oral, Nightly PRN, Nils Zimmer MD methocarbamol (Robaxin) tablet 500 mg, 500 mg, oral, Nightly, Nils Zimmer MD nystatin (Mycostatin) 100,000 unit/gram powder, , Topical, BID, Giles Altman MD ondansetron ODT (Zofran-ODT) disintegrating tablet 4 mg, 4 mg, oral, q8h PRN OR ondansetron HCl (PF) (Zofran) injection 4 mg, 4 mg, intravenous, q6h PRN, Nils Zimmer MD oxybutynin XL (Ditropan-XL) 24 hr tablet 5 mg, 5 mg, oral, Nightly, Nils Zimmer MD pantoprazole (ProtoNix) EC tablet 40 mg, 40 mg, oral, Daily, Nils Zimmer MD, 40 mg at 11/15/231824 sennosides-docusate sodium (Brittney-Colace) 8.6-50 mg per tablet 1 tablet, 1 tablet, oral, Daily PRN, Nils Zimmer MD sodium chloride 0.9 % infusion, 50 mL/hr, intravenous, Continuous, Nils Zimmer MD, Last Rate: 50 mL/hr at 11/15/23 1800, 50 mL/hr at 11/15/23 1800 Insert peripheral IV, , , Once AND Saline lock IV, , , Once AND sodium chloride flush 10 mL, 10 mL, intravenous, q8h PRN, Nils Zimmer MD sulfur hexafluoride microsphr (Lumason) injection 24.28 mg, 2 mL, intravenous, Once in imaging, Giles Altman MD tamsulosin (Flomax) 24 hr capsule 0.4 mg, 0.4 mg, oral, Daily, Nils Zimmer MD, 0.4 mg at 11/15/23 1825 Last Recorded Vitals Patient Vitals for the past 24 hrs: BP Temp Temp src Pulse Resp SpO2 Height Weight 11/15/23 1500 158/72 36.2 ???C (97.2 ???F) Temporal 78 22 100 % 1.651 m (5' 5 ) 108 kg (238 lb) Physical Examination: GENERAL: alert and oriented x3, well developed, in no acute distress. HEAD: atraumatic, normocephalic. EYES: JOE, EOMI. NECK: trachea midline, no JVD present, no carotid bruits present. CARDIAC: S1, S2 present. RRR. No murmur, rubs, or gallops. RESPIRATORY: CTAB, no increased effort of breathing, no rales, rhonchi, or wheezing. ABDOMEN: soft, nontender, nondistended. EXTREMITIES: no lower extremity edema, peripheral pulses are 2+ bilaterally. No rash/skin discoloration present. NEURO: strength/sensation equal and symmetric in bilateral upper and lower extremities. PSYCH: appropriate mood, affect, and judgement. 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) Anterior infarct (cited on or before 06-AUG-2012) Abnormal ECG When compared with ECG of 15-NOV-2023 15:06, (unconfirmed) No significant change was found Assessment: Prolonged sinus pauses Syncopal episodes Abnormal EKG: bifascicular block Coronary calcification on chest CT scan Chest pain - tenderness on palpation Exertional chest pain Chronic kidney disease stage IIIb Intractable nausea Essential hypertension Mixed hyperlipidemia Chronic osteoarthritis Plan: Investigations for potential causes for bradyarrhythmias; TSH, free T4, check electrolytes, trend Troponins, rule out abdominal or cranial etiologies for increased vagal tone Given current hemodynamic stability, and no further sinus pauses will defer any urgent interventions including temporary transvenous pacemaker Transcutaneous pacemaker in place to be utilized as needed Should the patient experience further sinus pauses with hemodynamic instability, will place a temporary transvenous pacemaker If remains stable, will likely plan on (more content not included)... Normal [facility] CT HEAD WO IV CONTRASTon CT HEAD WO IV CONTRAST Nonenhanced CT of the brain dated 11/15/2023 INDICATION: Nausea and vomiting, dizziness, arrhythmia. PROCEDURE: Automatic radiation exposure lowering techniques were utilized. All CT scans in this facility use dose modulation, iterative reconstruction, and/or weight based dosing when appropriate to reduce radiation dose to as low as reasonably achievable. An unenhanced CT of the brain and sagittal and coronal reformats obtained. FINDINGS: Comparison is 07/21/2012. No intracranial bleed. No mass, mass effect, or midline shift. No abnormal extra-axial fluid collections. The ventricles and sulci are within normal limits. Patchy low attenuation in the periventricular white matter, likely due to chronic small vessel ischemic disease. No CT evidence of acute stroke, if this is clinically suspected, an MRI could be obtained. IMPRESSION: 1. Chronic small vessel ischemic disease. 2. No acute intracranial abnormality seen. Electronically signed: GAGANDEEP CLAUDIO MD. 3 Invalid Interpretation Code [facility] HPon 11-15-2023 Division of Cardiovascular Medicine Interventional Cardiology Consult Chief Complaint: Transfer from [place] HPI: 83 yo with h/o HTN, CKD, dyslipidemia presented to [facility] with c/o chest and back pain. While being evaluated he had episodes of prolonged sinus pauses (12-18 sec?) with loss of consciousness and vomiting. He was Life flighted to [facility]. On arrival , I evaluated him at around 3pm; he was asymptomatic. His vital signs were normal. Telemetry showed sinus rhythm. He has been complaining of lighheadedness recently. Denies syncope. He also complains of chest pain with exertion and at rest. He denies orthopnea, or PND but has had worsening lower extremity edema. No know h/o CAD, prior myocardial infarctions or CHF. Does not see a pump rebuilder. Patient Active Problem List Diagnosis Syncope and collapse No family history on file. Social History Tobacco Use Smoking status: Never Smokeless tobacco: Never Past Medical History He has no past medical history on file. Surgical History He has no past surgical history on file. Family History No family history on file. Allergies Penicillins Medications Current Facility-Administered Medications: docusate sodium (Colace) capsule 100 mg, 100 mg, oral, Daily, Nils Zimmer MD, 100 mg at 11/15/231824 FLUoxetine (PROzac) capsule 20 mg, 20 mg, oral, Daily, Nils Zimmer MD, 20 mg at 11/15/231824 melatonin tablet 5 mg, 5 mg, oral, Nightly PRN, Nils Zimmer MD methocarbamol (Robaxin) tablet 500 mg, 500 mg, oral, Nightly, Nils Zimmer MD nystatin (Mycostatin) 100,000 unit/gram powder, , Topical, BID, Giles Altman MD ondansetron ODT (Zofran-ODT) disintegrating tablet 4 mg, 4 mg, oral, q8h PRN OR ondansetron HCl (PF) (Zofran) injection 4 mg, 4 mg, intravenous, q6h PRN, Nils Zimmer MD oxybutynin XL (Ditropan-XL) 24 hr tablet 5 mg, 5 mg, oral, Nightly, Nils Zimmer MD pantoprazole (ProtoNix) EC tablet 40 mg, 40 mg, oral, Daily, Nils Zimmer MD, 40 mg at 11/15/231824 sennosides-docusate sodium (Brittney-Colace) 8.6-50 mg per tablet 1 tablet, 1 tablet, oral, Daily PRN, Nils Zimmer MD sodium chloride 0.9 % infusion, 50 mL/hr, intravenous, Continuous, Nils Zimmer MD, Last Rate: 50 mL/hr at 11/15/23 1800, 50 mL/hr at 11/15/23 1800 Insert peripheral IV, , , Once AND Saline lock IV, , , Once AND sodium chloride flush 10 mL, 10 mL, intravenous, q8h PRN, Nils Zimmer MD sulfur hexafluoride microsphr (Lumason) injection 24.28 mg, 2 mL, intravenous, Once in imaging, Giles Altman MD tamsulosin (Flomax) 24 hr capsule 0.4 mg, 0.4 mg, oral, Daily, Nils Zimmer MD, 0.4 mg at 11/15/23 1825 Last Recorded Vitals Patient Vitals for the past 24 hrs: BP Temp Temp src Pulse Resp SpO2 Height Weight 11/15/23 1500 158/72 36.2 ???C (97.2 ???F) Temporal 78 22 100 % 1.651 m (5' 5 ) 108 kg (238 lb) Physical Examination: GENERAL: alert and oriented x3, well developed, in no acute distress. HEAD: atraumatic, normocephalic. EYES: JOE, EOMI. NECK: trachea midline, no JVD present, no carotid bruits present. CARDIAC: S1, S2 present. RRR. No murmur, rubs, or gallops. RESPIRATORY: CTAB, no increased effort of breathing, no rales, rhonchi, or wheezing. ABDOMEN: soft, nontender, nondistended. EXTREMITIES: no lower extremity edema, peripheral pulses are 2+ bilaterally. No rash/skin discoloration present. NEURO: strength/sensation equal and symmetric in bilateral upper and lower extremities. PSYCH: appropriate mood, affect, and judgement. 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) Anterior infarct (cited on or before 06-AUG-2012) Abnormal ECG When compared with ECG of 15-NOV-2023 15:06, (unconfirmed) No significant change was found Assessment: Prolonged sinus pauses Syncopal episodes Abnormal EKG: bifascicular block Coronary calcification on chest CT scan Chest pain - tenderness on palpation Exertional chest pain Chronic kidney disease stage IIIb Intractable nausea Essential hypertension Mixed hyperlipidemia Chronic osteoarthritis Plan: Investigations for potential causes for bradyarrhythmias; TSH, free T4, check electrolytes, trend Troponins, rule out abdominal or cranial etiologies for increased vagal tone Given current hemodynamic stability, and no further sinus pauses will defer any urgent interventions including temporary transvenous pacemaker Transcutaneous pacemaker in place to be utilized as needed Should the patient experience further sinus pauses with hemodynamic instability, will place a temporary transvenous pacemaker If remains stable, will likely plan on (more content not included)... Normal [facility] MAGNESIUMon 11-15-2023 Magnesium [Mass/Vol] 1.7 mg/dL Low 1.9-2.7 [facility] Comment on above: Performed By: #### L [id number] #### [facility] ([facility]) [address] [place] [address] NURSNOTEon 11-15-2023 ELIEL Factorer reach out to Cardiology (Dr. Figueroa) to notify her of the pt transferring to MICU due to change in condition and code blue being called. She asked if the patient was paced at bedside and nurse replied no but pt was transferred and will be paced in MICU. Normal [facility] ELIEL Factorer attempted to reach out to family via home number in chart and it wasn't in service. Charge nurse MIGUEL Lloyd was notified and MICU was notified as well by MIGUEL Lloyd. Normal [facility] ELIEL Bedside report given to MIGUEL Ghosh prior to transfer to MICU due to change in condition and code blue being called for asystole lasting 10.19 seconds. Normal [facility] ELIEL Spoke with Dr. Wendy dominguez via telephone about patient having asystole for 7.72 seconds accompanied with nausea and vomiting and she stated no interventions to be done at this time but would like a CT head w/o contrast and labs. Orders from Hospitalist were placed while on the phone with Sofia. Sofia stated get lab work and imaging done and we'll go from there. Normal [facility] TROPONIN Ion 11-15-2023 Troponin I.cardiac [Mass/Vol] 0.01 ng/mL Normal 0.00-0.04 [facility] Comment on above: Performed By: #### L [id number] #### [facility] ([facility]) [address] [place] [address] Urology Office/Clinic Noteon 11-12-2023 Urology Office/Clinic Note [...] and history for this patient from Dr. Valencia. I have reviewed and verified the staff [...] or Gemtesa to help improve urinary sxs. Antonio dicussed with pt and his . -d/c Vesicare -Initiate Gemtesa 75mg daily, pt is to call if too cost prohibitive, sent to [facility] Jillian Hutchins -f/up in 3 mos 2. BPH with [...] With When Contact Information RAUL Ingram APRN, Marianela Rodriguez, RIANNA, URL Additional Instructions: f/up in 3 mos Patient Education Overactive Bladder, Adult I, Bob Cordova, personally scribed for RAUL Salmon on 11/11/2023 [...] Historical Diabetes mellitus Procedure/Surgical History EGD - Esophagogastroduodenos copy. Medications allopurinol 300 mg Tab, Oral, Daily [...] 23-valent vac (more content not included)... Normal [facility] Comment on above: Result Comment: Elec tronically Signed By: RAUL Ingram APRN, Aurora X\.br\Date and Time Signed: 11/12/23 21:46 EDT\.br\Electronically Co-Signed By: Bob Cordova\.br\Date and Time Co-Signed: 11/11/23 13:54 EDT Ambulatory Visit Summaryon 0 11-11-2023 Ambulatory Visit Summary Ambulatory Visit Summary HUGOYESSYFelix NAT Ramírez :1940 Visit Date:11/11/2023 Ambulatory Visit Instructions Your Diagnosis Urge incontinence BPH with obstruction/lower urinary tract symptoms Your Care Team Attending Physician - RAUL nIgram APRN, [place] X Primary Care Physician - JUAN PABLO ALANIZ MD This Is Your Medications List solifenacin (solifenacin 10 mg Tab) Contact prescribing physician if questions or concerns allopurinol (allopurinol 300 mg Tab) docusate (docusate sodium) donepezil (donepezil 5 mg Tab) empagliflozin-linaglip tin (Glyxambi 10 mg-5 mg oral tablet) gabapentin (gabapentin 100 mg Cap) glipiZIDE (glipiZIDE 10 mg Tab) metoprolol (metoprolol 100 mg ER Tab) tamsulosin (Flomax 0.4 mg Cap) Procedures Performed EGD - Esophagogastroduodenos copy. Discharge Vitals Height 167 cm Height 66 in Weight 120 kg Weight 264 lb BMI 43.03 What to do next Scheduled Follow-Up Appointments Friday 12:30 PM EST With: RAUL Ingram APRN, [facility] X Where: [facility] [address] [address]- You Need to Schedule the Following Appointments Follow Up with RAUL Ingram APRN, [place] X, KAYLYN BLANCA When: Comments: f/up in 3 mos Where: [...] prescribing physician if questions or concerns Unchanged empagliflozin-linaglip tin (Glyxambi 10 mg-5 mg oral tablet) By [...] ? Leaking ur (more content not included)... Normal [facility] October 14, 2023 NAT MOORE [address] [place] [address] [address] [place] [address] : 1940 Dear Nat, You missed your [...] your consideration regarding any future cancellations. Sincerely, [facility] [address] [facility], [place] [address] [facility] Patient Letter FTon 2023 Patient Letter [facility] May 13, 2023 NAT NATARAJANFelix [address] [facility] [address] [place] [address] : 1940 Dear Nat, You missed your scheduled appointment on April with Cait Dunham PA-C, . Please note our appointment slots [...] your consideration regarding any future cancellations. Sincerely, [facility] [address] [facility], [place] [address] [facility] BNPon 07-27-2022 Natriuretic peptide B (Bld) [Mass/Vol] 178.0 pg/mL Normal <=1,800.0 [facility] Comment on above: Performed By: #### C MP, BNP, CMADM #### [facility] [address] [place], [place] [address] Dr. Loyd Parks CARDIAC SPARKLE ADMITon 023 CK [Catalytic activity/Vol] 50 U/L Normal 39-308 [facility] Comment on above: Performed By: #### C MP, BNP, CMADM #### [facility] [address] [place] [address] [address] Loyd Parks CK.MB [Mass/Vol] 0.83 ng/mL Normal <=3.60 [facility] Comment on above: Performed By: #### C MP, BNP, CMADM #### [facility] [address] [place] [address] [address] Loyd Parks HSTROP 6.3 pg/mL Normal 4.0-76.1 [facility] Comment on above: Result Comment: CUT- OFF POINTS HAVE BEEN ESTABLISHED BASED ON THE FOURTH UNIVERSAL DEFINITIONS OF MYOCARDIAL INFARCTION. THE UPPER REFERENCE LIMIT (URL) OF TROPONIN, DEFINED THE 99TH PERCENTILE OF cTnI DISTRIBUTION IN A REFERENCE POPULATION, HAS BEEN CONFIRMED THE DECISION THRESHOLD FOR FL DIAGNOSIS. Performed By: #### C MP, BNP, CMADM #### [facility] [address] [place] [address] [address] Loyd Parks WM 121 ng/mL Critically high 16-96 [facility] Comment on above: Performed By: #### C MP, BNP, CMADM #### [facility] [address] [place] [address] Dr. Loyd Parks CBC AUTO DIFFon 07-27-2022 BASO # 0.1 103/ul Normal 0.0-0.1 [facility] Comment on above: Performed By: #### C BC #### [facility] [address] [place] [address] Dr. Loyd Parks Basophils/100 WBC (Bld) 0.6 % Normal 0.2-2.0 [facility] Comment on above: Performed By: #### C BC #### [facility] [address] [place] [address] Dr. Loyd Parks EO # 0.5 103/ul Normal 0.0-0.7 [facility] Comment on above: Performed By: #### C BC #### [facility] [address] [place] [address] Dr. Loyd Parks Eosinophils/100 WBC (Bld) 4.8 % Normal 0.9-7.0 [facility] Comment on above: Performed By: #### C BC #### [facility] [address] [place] [address] Dr. Loyd Parks Erythrocyte distribution width (RBC) [Ratio] 13.5 % Normal 11.0-15.0 [facility] Comment on above: Performed By: #### C BC #### [facility] [address] [place] [address] Dr. Loyd Parks Hematocrit (Bld) [Volume fraction] 39.7 % Critically low 42.0-54.0 [facility] Comment on above: Performed By: #### C BC #### [facility] [address] [place] [address] Dr. Loyd Parks Hemoglobin (Bld) [Mass/Vol] 13.1 g/dL Critically low 14.0-18.0 [facility] Comment on above: Performed By: #### C BC #### [facility] [address] [place] [address] Dr. Loyd Parks IG # 0.05 10e3/ul Critically high 0.00-0.03 [facility] Comment on above: Performed By: #### C BC #### [facility] [address] [place] [address] Dr. Loyd Parks IG % 0.5 % Normal 0.0-0.5 [facility] Comment on above: Performed By: #### C BC #### [facility] [address] [place] [address] Dr. Loyd Parks LYMPH # 1.4 103/ul Normal 1.2-3.8 [facility] Comment on above: Performed By: #### C BC #### [facility] [address] [place] [address] Dr. Loyd Parks Lymphocytes/100 WBC (Bld) 14.1 % Critically low 20.5-60.0 [facility] Comment on above: Performed By: #### C BC #### [facility] [address] [place] [address] Dr. Loyd Parks MANUAL DIFF REQ NO Normal [facility] Comment on above: Performed By: #### C BC #### [facility] [address] [place] [address] [address] Loyd Parks MCH (RBC) [Entitic mass] 31.6 pg Normal 25.9-34.0 [facility] Comment on above: Performed By: #### C BC #### [facility] [address] [place] [address] Dr. Loyd Parks MCHC (RBC) [Mass/Vol] 33.0 g/dL Normal 29.9-35.2 [facility] Comment on above: Performed By: #### C BC #### [facility] [address] [place] [address] Dr. Loyd Parks MCV (RBC) [Entitic vol] 95.7 fL Critically high 80.0-94.0 [facility] Comment on above: Performed By: #### C BC #### [facility] [address] [place] [address] Dr. Loyd Parks MONO # 1.0 103/ul Critically high 0.3-0.8 [facility] Comment on above: Performed By: #### C BC #### [facility] [address] [place] [address] Dr. Loyd Parks Monocytes/100 WBC (Bld) 9.7 % Normal 1.7-12.0 [facility] Comment on above: Performed By: #### C BC #### [facility] [address] [place] [address] Dr. Loyd Parks NEUT # 7.2 103/ul Critically high 1.4-6.[address] [facility] Comment on above: Performed By: #### C BC #### [facility] [address] [place] [address] Dr. Loyd Parks Neutrophils/100 WBC (Bld) 70.3 % Normal 43.0-75.0 [facility] Comment on above: Performed By: #### C BC #### [facility] [address] [place] [address] Dr. Loyd Parks Platelet mean volume (Bld) [Entitic vol] 10.8 fL Normal 9.5-13.5 [facility] Comment on above: Performed By: #### C BC #### [facility] [address] [place] [address] [address] Loyd Parks PLT 199 103/ul Normal 150-450 [facility] Comment on above: Performed By: #### C BC #### [facility] [address] [address] [address] Loyd Parks RBC 4.15 106/ul Critically low 4.70-6.10 [facility] Comment on above: Performed By: #### C BC #### [facility] [address] [place] [address] [address] Loyd Parks WBC 10.2 103/ul Normal 4.0-11.0 [facility] Comment on above: Performed By: #### C BC #### [facility] [address] [place] [address] Dr. Loyd Parks CULTURE BLOODon 07-27-2022 Microscopic examination of blood, culture Culture Observations: NO GROWTH AT 5 DAYS. Normal [facility] Comment on above: Performed By: #### E RUR #### [facility] [address] [place] [address] [address] Loyd Parks [facility] SARS-CoV-2 (COVID-19) RNA SAUNDRA+probe Ql (Unsp spec) Not detected Normal NOT DETECTED [facility] Comment on above: Result Comment: This test is not yet approved or cleared by the [place] FDA. When there are no FDA-approved or cleared tests available, and other criteria are met, FDA can make tests available under an emergency access mechanism called an Emergency Use Authorization (EUA). The EUA for this test is supported by the [employer] Supervisor of Health and Human Service's (HHS's) declaration [...] SARS-CoV-2. Performed By: #### E RUR #### [facility] [address] [place] [address] Dr. Loyd Parks LACTATE/LACTIC ACIDon 2022 Lactate [Moles/Vol] 2.2 mmol/L Critically high 0.4-2.0 [facility] Comment on above: Performed By: #### C MP, BNP, CMADM #### [facility] [address] [place] [address] Dr. Loyd Parks PROF 14(COMP METB)on 023 Albumin [Mass/Vol] 3.3 g/dL Critically low 3.4-5.0 [facility] Comment on above: Performed By: #### C MP, BNP, CMADM #### [facility] [address] [place] [address] Dr. Loyd Parks Albumin/Globulin [Mass ratio] 0.9 {ratio} Normal [facility] Comment on above: Performed By: #### C MP, BNP, CMADM #### [facility] [address] [place] [address] Dr. Loyd Parks ALP [Catalytic activity/Vol] 91 U/L Normal 46-116 [facility] Comment on above: Performed By: #### C MP, BNP, CMADM #### [facility] [address] [place] [address] Dr. Loyd Parks ALT [Catalytic activity/Vol] 18 U/L Normal 16-63 [facility] Comment on above: Performed By: #### C MP, BNP, CMADM #### [facility] [address] [place] [address] Dr. Loyd Parks Anion gap [Moles/Vol] 12.2 mmol/L Normal [facility] Comment on above: Performed By: #### C MP, BNP, CMADM #### [facility] [address] [place] [address] Dr. Lody Parks AST [Catalytic activity/Vol] 15 U/L Normal 15-37 [facility] Comment on above: Performed By: #### C MP, BNP, CMADM #### [facility] [address] [place] [address] Dr. Loyd Parks Bilirubin [Mass/Vol] 0.4 mg/dL Normal 0.2-1.0 [facility] Comment on above: Performed By: #### C MP, BNP, CMADM #### [facility] [address] [place] [address] [address] Loyd Parks Calcium [Mass/Vol] 8.7 mg/dL Normal 8.5-10.1 [facility] Comment on above: Performed By: #### C MP, BNP, CMADM #### [facility] [address] [place] [address] Dr. Loyd Parks Chloride [Moles/Vol] 105 mmol/L Normal 98-107 [facility] Comment on above: Performed By: #### C MP, BNP, CMADM #### [facility] [address] [place] [address] Dr. Loyd Parks CO2 [Moles/Vol] 28.0 mmol/L Normal 21.0-32.0 [facility] Comment on above: Performed By: #### C MP, BNP, CMADM #### [facility] [address] [place] [address] Dr. Loyd Parks Creatinine [Mass/Vol] 2.25 mg/dL Critically high 0.70-1.30 [facility] Comment on above: Performed By: #### C MP, BNP, CMADM #### [facility] [address] [place] [address] Dr. Loyd Parks EGFR-AF LIBYAN 34 mL/min/1.73m2 Critically low >=60 [facility] Comment on above: Performed By: #### C MP, BNP, CMADM #### [facility] [address] [place] [address] Dr. Loyd Parks EGFR-NON AF LIBYAN 28 mL/min/1.73m2 Critically low >=60 [facility] Comment on above: Performed By: #### C MP, BNP, CMADM #### [facility] [address] [place] [address] [address] Loyd Parks Globulin (S) [Mass/Vol] 3.8 g/dL Normal [facility] Comment on above: Performed By: #### C MP, BNP, CMADM #### [facility] [address] [place] [address] [address] Loyd Parks Glucose [Mass/Vol] 88 mg/dL Normal 74-106 [facility] Comment on above: Performed By: #### C MP, BNP, CMADM #### [facility] [address] [address] [address] Loyd Parks Potassium [Moles/Vol] 4.2 mmol/L Normal 3.5-5.1 [facility] Comment on above: Performed By: #### C MP, BNP, CMADM #### [facility] [address] [place] [address] Dr. Loyd Parks Protein [Mass/Vol] 7.1 g/dL Normal 6.4-8.2 [facility] Comment on above: Performed By: #### C MP, BNP, CMADM #### [facility] [address] [address] [address] Loyd Parks Sodium [Moles/Vol] 141 mmol/L Normal 136-145 [facility] Comment on above: Performed By: #### C MP, BNP, CMADM #### [facility] [address] [address] [address] Loyd Parks Urea nitrogen [Mass/Vol] 36.0 mg/dL Critically high 7.0-18.0 [facility] Comment on above: Performed By: #### C MP, BNP, CMADM #### [facility] [address] [place] [address] Dr. Loyd Parks Urea nitrogen/Creatinin e [Mass ratio] 16.0 mg/mg Normal [facility] Comment on above: Performed By: #### C MP, BNP, CMADM #### [facility] [address] [address] [address] Loyd Parks PROTIMEon 07-27-2022 INR Coag (PPP) [Relative time] 0.95 {INR} Normal [facility] Comment on above: Performed By: #### P T, PTT #### [facility] [address] [place] [address] Dr. Loyd Parks INR GUIDELINES SEE BELOW Normal The [facility] Comment on above: Result Comment: MARIE RED INR: 2.0 - 3.0 CONDITIONS NOT LISTED BELOW 2.5 - 3.5 FOR PROSTHETIC HEART VALVE REPLACEMENT 2.5 - 3.5 RECURRENT THROMBOSIS Performed By: #### P T, PTT #### [facility] [address] [place] [address] Dr. Loyd Parks PT Coag (PPP) [Time] 10.1 s Normal 9.0-11.6 [facility] Comment on above: Performed By: #### P T, PTT #### [facility] [address] [place] [address] Dr. Loyd Parks PTTon 07-27-2022 aPTT Coag (Bld) [Time] 27.3 s Normal 22.3-36.2 [facility] Comment on above: Performed By: #### P T, PTT #### [facility] [address] [place] [address] Dr. Loyd Parks SYMPTOMATIC COVID-19 ANTIGEN on 07-27-2022 EUA Statement SEE BELOW Normal [facility] [place] Comment on above: Result Comment: This test [...] sooner. Performed By: #### C VDAGS #### [facility] [address] [place] [address] Dr. Loyd Parks SARS-CoV-2 (COVID-19) RNA SAUNDRA+probe Ql (Unsp spec) Negative Normal NEGATIVE [facility] Comment on above: Performed By: #### C VDAGS #### [facility] [address] [place] [address] Dr. Loyd Parks XR CHEST 2 Von [...] ELIUD KAUR Date: 2022-07-26 22:19 Normal [facility] POINT OF CARE GLUCOSEon 03-25 Glucose [Mass/Vol] 102 mg/dL Normal 74-106 [facility] Comment on above: Performed By: #### C MP, BNP, CMADM #### [facility] [address] [place] [address] Dr. Loyd Parks ER URINE PROFILEon 2 Bilirubin Ql (U) Negative Normal NEGATIVE [facility] Comment on above: Performed By: #### E RUR #### [facility] [address] [place] [address] Dr. Loyd Parks Clarity (U) CLEAR Normal CLEAR [facility] Comment on above: Performed By: #### E RUR #### [facility] [address] [place] [address] Dr. Loyd Parks Color (U) LT. YELLOW Normal YELLOW [facility] Comment on above: Performed By: #### E RUR #### [facility] [address] [place] [address] Dr. Loyd Parks ERUAHD A micrscopic examination will be performed if indicated. Normal [facility] Comment on above: Performed By: #### E RUR #### [facility] [address] [place] [address] Dr. Loyd Parks Glucose Ql (U) 100 mg/dl Abnormal NEGATIVE [facility] Comment on above: Performed By: #### E RUR #### [facility] [address] [place] [address] Dr. Loyd Parks Hemoglobin Ql (U) Negative Normal NEGATIVE [facility] Comment on above: Performed By: #### E RUR #### [facility] [address] [place] [address] Dr. Loyd Parks Ketones Ql (U) Negative Normal NEGATIVE [facility] Comment on above: Performed By: #### E RUR #### [facility] [address] [place] [address] Dr. Loyd Parks LEUKOCYTES Negative Normal NEGATIVE [facility] Comment on above: Performed By: #### E RUR #### [facility] [address] [place] [address] Dr. Loyd Parks Nitrite Ql (U) Negative Normal NEGATIVE [facility] Comment on above: Performed By: #### E RUR #### [facility] [address] [place] [address] Dr. Loyd Parks pH (U) 5.5 [pH] Normal 5-9 [facility] Comment on above: Performed By: #### E RUR #### [facility] [address] [place] [address] Dr. Loyd Parks SPEC GRAVITY 1.015 Normal 1.005-<=1.[address] [facility] Comment on above: Performed By: #### E RUR #### [facility] [address] [place] [address] Dr. Loyd Parks UA PROTEIN Negative Normal NEGATIVE/ TRACE [facility] Comment on above: Performed By: #### E RUR #### [facility] [address] [place] [address] Dr. Loyd Parks UR MICRO IND NOT INDICATED Normal [facility] Comment on above: Performed By: #### E RUR #### [facility] [address] [place] [address] Dr. Loyd Parks Urobilinogen Qn (U) 0.2 {Malcolm'U}/dL Normal 0.2 - 1.0 [facility] Comment on above: Performed By: #### E RUR #### [facility] [address] [place] [address] Dr. Loyd Parks GROUP A STREP CULTUREon 02-21 S. pyogenes Ag Ql (Unsp spec) Culture Observations: NEGATIVE FOR GROUP A STREPTOCOCCUS. Normal [facility] Comment on above: Performed By: #### S SCRN, GRASTCX #### [facility] [address] [address] [address] Loyd Parks STREPT SCREENon 03-03-2022 STREP SCREEN A Negative Normal NEGATIVE [facility] Comment on above: Performed By: #### S SCRN, GRASTCX #### [facility] [address] [place] [address] Dr. Loyd Parks Covid-19 PCR ([facility])on SARS-CoV-2 (COVID-19) RNA SAUNDRA+probe Ql (Unsp spec) Not detected Normal NOT DETECTED [facility] Comment on above: Result Comment: This test is not yet approved or cleared by the [place] FDA. When there are no FDA-approved or cleared tests available, and other criteria are met, FDA can make tests available under an emergency access mechanism called an Emergency Use Authorization (EUA). The EUA for this test is supported by the [place] of Health and Human Service's (HHS's) declaration [...] By: #### C MP, BNP, CMADM #### [facility] [address] [address] [address] Loyd Parks POINT OF CARE GLUCOSEon 10-1 Glucose [Mass/Vol] 133 mg/dL Critically high 74-106 [facility] Comment on above: Performed By: #### E RUR #### [facility] [address] [place], [place] [address] Dr. Loyd Parks POINT OF CARE GLUCOSEon 09-0 Glucose [Mass/Vol] 75 mg/dL Normal 74-106 [facility] Comment on above: Performed By: #### E RUR #### [facility] [address] ABD/PELVIS WO CONon [...] SAURABH SINGH Date: 2021-09-03 08:35 Normal [facility] ER URINE PROFILEon 2 Bilirubin Ql (U) Negative Normal NEGATIVE [facility] Comment on above: Performed By: #### E RUR #### [facility] [address] [place] [address] Dr. Loyd Parks Clarity (U) CLEAR Normal CLEAR [facility] Comment on above: Performed By: #### E RUR #### [facility] [address] [place] [address] Dr. Loyd Parks Color (U) LT. YELLOW Normal YELLOW [facility] Comment on above: Performed By: #### E RUR #### [facility] [address] [place] [address] Dr. Loyd SNELLMaxine A micrscopic examination will be performed if indicated. Normal [facility] Comment on above: Performed By: #### E RUR #### [facility] [address] [place] [address] Dr. Loyd Parks Glucose Ql (U) >1000 Abnormal NEGATIVE [facility] Comment on above: Performed By: #### E RUR #### [facility] [address] [place] [address] Dr. Loyd Parks Hemoglobin Ql (U) Negative Normal NEGATIVE [facility] Comment on above: Performed By: #### E RUR #### [facility] [address] [place] [address] Dr. Loyd Parks Ketones Ql (U) Negative Normal NEGATIVE [facility] Comment on above: Performed By: #### E RUR #### [facility] [address] [place] [address] Dr. Loyd Parks LEUKOCYTES Negative Normal NEGATIVE [facility] Comment on above: Performed By: #### E RUR #### [facility] [address] [place] [address] Dr. Loyd Parks Nitrite Ql (U) Negative Normal NEGATIVE [facility] Comment on above: Performed By: #### E RUR #### [facility] [address] [place] [address] Dr. Loyd Parks pH (U) 6.0 [pH] Normal 5-9 [facility] Comment on above: Performed By: #### E RUR #### [facility] [address] [place] [address] Dr. Loyd Parks SPEC GRAVITY 1.010 Normal 1.005-<=1.025 [facility] Comment on above: Performed By: #### E RUR #### [facility] [address] [place] [address] Dr. Loyd Parks UA PROTEIN Negative Normal NEGATIVE/ TRACE [facility] Comment on above: Performed By: #### E RUR #### [facility] [address] [place] [address] Dr. Loyd Parks UR MICRO IND NOT INDICATED Normal [facility] Comment on above: Performed By: #### E RUR #### [facility] [address] [place] [address] Dr. Loyd Parks Urobilinogen Qn (U) 0.2 {Malcolm'U}/dL Normal 0.2 - 1.0 [facility] Comment on above: Performed By: #### E RUR #### [facility] [address] [place] [address] Dr. Loyd Parks ALCOHOLon 07-31-2020 Ethanol [Mass/Vol] mg/dL Normal [facility] Comment on above: Result Comment: FOR MEDICAL USE ONLY. . REF VALUES <10 Performed By: #### A LC ####[facility] [place] [address] CBC AND DIFFERENTIALon 07-31 % AUTOMATED IMMATURE GRAN 0.4 % Normal 0.0 - 0.9 [facility] Comment on above: Result Comment: Rylie ture Granulocyte Count (IG) includes promyelocytes, myelocytes and metamyelocytes but does not include bands. Percent differential counts (%) should be interpreted in the context of the absolute cell counts (cells/L). Performed By: #### C BCDF #### [facility] [address] [place] [address] Basophils (Bld) [#/Vol] 0.05 10*3/uL Normal 0.00 - 0.10 [facility] Comment on above: Performed By: #### C BCDF #### [facility] [id number] [place] [address] Basophils/100 WBC (Bld) 0.6 % Normal 0.0 - 2.0 [facility] Comment on above: Performed By: #### C BCDF #### [facility] [address] [place] [address] Eosinophils (Bld) [#/Vol] 0.21 10*3/uL Normal 0.00 - 0.40 [facility] Comment on above: Performed By: #### C BCDF #### [facility] [id number] [place] [address] Eosinophils/100 WBC (Bld) 2.4 % Normal 0.0 - 6.0 [facility] Comment on above: Performed By: #### C BCDF #### [facility] [address] [place] [address] Erythrocyte distribution width (RBC) [Ratio] 13.2 % Normal 11.5 - 14.5 [facility] Comment on above: Performed By: #### C BCDF #### [facility] [address] [place] [address] Hematocrit (Bld) [Volume fraction] 50.0 % Normal 41.0 - 52.0 [facility] Comment on above: Performed By: #### C BCDF #### [facility] [address] [facility] [place] [address] Hemoglobin (Bld) [Mass/Vol] 17.3 g/dL Normal 13.5 - 17.5 [facility] Comment on above: Performed By: #### C BCDF #### [facility] [address] [place] [place] [address] Lymphocytes (Bld) [#/Vol] 1.59 10*3/uL Normal 0.80 - 3.00 [facility] Comment on above: Performed By: #### C BCDF #### [facility] [id number] [place], [place] [address] [address] Lymphocytes/100 WBC (Bld) 17.9 % Normal 13.0 - 44.0 [facility] Comment on above: Performed By: #### C BCDF #### [facility] [address] [place] [address] MCHC (RBC) [Mass/Vol] 34.6 g/dL Normal 32.0 - 36.0 [facility] Comment on above: Performed By: #### C BCDF #### [facility] [id number] [place], [place] [address] [address] MCV (RBC) [Entitic vol] 89 fL Normal 80 - 100 [facility] Comment on above: Performed By: #### C BCDF #### [facility] [id number] [place] [address] Monocytes (Bld) [#/Vol] 0.82 10*3/uL High 0.05 - 0.80 [facility] Comment on above: Performed By: #### C BCDF #### [facility] [id number] [place] [address] Monocytes/100 WBC (Bld) 9.2 % Normal 2.0 - 10.0 [facility] Comment on above: Performed By: #### C BCDF #### [facility] [id number] [place] [address] Neutrophils (Bld) [#/Vol] 6.18 10*3/uL High 1.60 - 5.50 [facility] Comment on above: Performed By: #### C BCDF #### [facility] [address] [place] [address] Neutrophils/100 WBC (Bld) 69.5 % Normal 40.0 - 80.0 [facility] Comment on above: Performed By: #### C BCDF #### [facility] [address] [place] [address] Platelets (Bld) [#/Vol] 215 10*3/uL Normal 150 - 450 [facility] Comment on above: Performed By: #### C BCDF #### [facility] [address] [facility] [address] RBC 5.59 x10E12/L Normal 4.50 - 5.90 [facility] Comment on above: Performed By: #### C BCDF #### [facility] [address] [facility] [place] [address] WBC (Bld) [#/Vol] 8.9 10*3/uL Normal 4.4 - 11.3 [facility] Comment on above: Performed By: #### C BCDF #### [facility] [address] [place] [address] CHEST 1 VIEWon 07-31-2020 CHEST 1 VIEW STUDY: Chest Radiograph; 07/30/2020 10:53 PM INDICATION: Shortness of breath. COMPARISON: None available. ACCESSION NUMBER(S): [id number] ORDERING CLINICIAN: ZAID CUELLAR DO TECHNIQUE: Frontal chest was obtained at 2355 hours. FINDINGS: CARDIOMEDIASTINAL SILHOUETTE: Cardiomediastinal silhouette is normal in size and configuration. LUNGS: Lungs are clear. ABDOMEN: No remarkable upper abdominal findings. BONES: No acute osseous changes. IMPRESSION: No acute pulmonary abnormality. Signed by Rodrick Anna MD Electronically signed by: RODRICK ANNA MD Normal [facility] COMPREHENSIVE PANELon 2020 Albumin [Mass/Vol] 3.7 g/dL Normal 3.4 - 5.0 [facility] Comment on above: Performed By: #### C MP ####[facility] [place] [address] ALP [Catalytic activity/Vol] 80 U/L Normal 33 - 136 [facility] Comment on above: Performed By: #### C MP ####[facility] [place] [address] ALT [Catalytic activity/Vol] 12 U/L Normal 10 - 52 [facility] Comment on above: Result Comment: Jade ents treated with Sulfasalazine may generate falsely decreased results for ALT. Performed By: #### C MP ####[facility] [place] [address] Anion gap [Moles/Vol] 13 mmol/L Normal 10 - 20 [facility] Comment on above: Performed By: #### C MP ####[facility] [place] [address] AST [Catalytic activity/Vol] 12 U/L Normal 9 - 39 [facility] Comment on above: Performed By: #### C MP ####[facility] [place] [address] Bilirubin [Mass/Vol] 0.7 mg/dL Normal 0.0 - 1.2 [facility] Comment on above: Performed By: #### C MP ####[facility] [place] [address] Calcium [Mass/Vol] 9.2 mg/dL Normal 8.6 - 10.3 [facility] Comment on above: Performed By: #### C MP ####[facility] [place] [address] Chloride [Moles/Vol] 101 mmol/L Normal 98 - 107 [facility] Comment on above: Performed By: #### C MP ####[facility] [place] [address] Creatinine [Mass/Vol] 1.36 mg/dL High 0.50 - 1.30 [facility] Comment on above: Performed By: #### C MP ####[facility] [place] [address] GFR- AM. 61 mL/min/1.73m2 Normal >60 [facility] Comment on above: Result Comment: CALC ULATIONS OF ESTIMATED GFR ARE PERFORMED USING THE MDRD STUDY EQUATION FOR THE IDMS-TRACEABLE CREATININE METHODS. CLIN CHEM 2007;53:766-72 Performed By: #### C MP ####[facility] [place] [address] GFR-NON AM. 50 mL/min/1.73m2 Abnormal >60 [facility] Comment on above: Performed By: #### C MP ####[facility] [facility] [place] [address] Glucose [Mass/Vol] 390 mg/dL High 74 - 99 [facility] Comment on above: Performed By: #### C MP ####[facility] [place] [address] HCO3 (Bld) [Moles/Vol] 27 mmol/L Normal 21 - 32 [facility] Comment on above: Performed By: #### C MP ####[facility] [place] [address] Potassium [Moles/Vol] 4.1 mmol/L Normal 3.5 - 5.3 [facility] Comment on above: Performed By: #### C MP ####[facility] [facility] [place] [address] Protein [Mass/Vol] 6.8 g/dL Normal 6.4 - 8.2 [facility] Comment on above: Performed By: #### C MP ####[facility] [place] [address] Sodium [Moles/Vol] 137 mmol/L Normal 136 - 145 [facility] Comment on above: Performed By: #### C MP ####[facility] [place] [address] Urea nitrogen [Mass/Vol] 27 mg/dL High 6 - 23 [facility] Comment on above: Performed By: #### C MP ####[facility] [place] [address] CT HEAD WO CONTRASTon 05-10- 2021 CT HEAD WO CONTRAST STUDY: CT Head without IV Contrast; 07/30/2020, 11:52 PM. INDICATION: Confusion, disorientation. COMPARISON: None Available. ACCESSION NUMBER(S): [id number] ORDERING CLINICIAN: ZAID CUELLAR DO TECHNIQUE: Noncontrast [...] Electronically signed by: RODRICK ANNA MD Normal [facility] MAGNESIUMon 07-31-2020 Magnesium [Mass/Vol] 2.04 mg/dL Normal 1.60 - 2.40 [facility] Comment on above: Performed By: #### M G #### [facility] [address] [place] [address] PT/INRon 07-31-2020 PT Coag (PPP) [Time] 12.0 s Normal 10.1 - 13.3 [facility] Comment on above: Performed By: #### P TINR #### [facility] [address] [place] [address] PT, INR 1.0 Normal 0.9 - 1.1 [facility] Comment on above: Performed By: #### P TINR #### [facility] [address] [facility] [place] [address] Provider Note - ED v2on 07-22 Provider Note - ED v2 Provider Note - ED v2: Chart Review: ED NOTES ED NOTES: History: This is an 80-year-old male presenting from the [facility] by [facility] for chief complaint of a medical evaluation. Patient left his home in [place] 3 days ago because he got into an argument with his and he has not been back since. He was finally located at a [facility] down the street when family called. [...] and medical, surgical, family and social history ALLERGIES/INTOLERANCES : Allergy Allergen: penicillin Type: Drug Reaction: Unknown [...] From Triage - ED 30-Jul-2020 23:17 Normal [facility] Risk Screen - Adult Emergenc yon 07-31-2020 Risk Screen - Adult Emergency Preferred Language: Preferred Language: Preferred Language for Discussing Health Care (patient/designee)Engl vance Advanced Directives: Advance Directive/DNRno Advance Directive Information [...] instruction; written material Cultural Considerationsnone Developmental Considerationsnone Holiness Considerationsnone Learning Assessment (Other Learner): Learning Assessment (Other Learner): Other learner availableno Pressure Injury/TB/Substance: Pressure Injury: Do you have a coughno Substance Use Current or Former Historynever: Cigarette/Tobacco, e-Cigarette/Vaping, Alcohol, Street Drugs Admission Risk Screen: Significant IndicatorsComplete CAGE: CAGE: Is this an injured patient at a Trauma Center ([facility] [place] [place]/[facility]/[place]/[place]): no Electronic Signatures: Elizabeth Ivan (MIGUEL) (Signed 30-Jul-2020 23:24) Authored: Preferred Language, Advanced Directives, Family Violence Adult, Learning Assessment (Patient), Learning Assessment (Other Learner), Pressure Injury/TB/Substance, Pressure Injury, CAGE Last Updated: 30-Jul-2020 23:24 by Elizabeth Ivan (MIGUEL) Normal [facility] TROPONIN Ion 07-31-2020 Troponin I.cardiac [Mass/Vol] ng/mL Normal 0.00 - 0.03 [facility] Comment on above: Result Comment: LESS THAN [...] is performed using different testing methodology at [facility] than at other [facility]. Direct result comparisons should only be made within the same method. Performed By: #### T ROP2 #### [facility] [address] [place] [address] Triage - EDon 07-31-2020 Triage - ED [...] Arrival: stretcher Mode of Arrival: ambulance Agency: [facility] Agency Name: Monica Accompanied By: physical optics teacher Language: Spoken Language Preferred: Uzbek Reading Language Preferred: Uzbek CHIEF COMPLAINT NAT MOORE is a Male patient with a chief complaint of altered mental status. Triage Date/Time: 30-Jul-2020 22:50 LAILA: 3 Pain Rating (0-10): 0 = None Vital Signs: Temperature: 96.8F ( 36.0C) taken temporal Blood Pressure: 166/103 Mean: Heart Rate: 94 Respiratory Rate: 18 Pulse Oximetry: 97% on room air, no respiratory support. Weight: 230.3 pounds. Calculated 104.5 kg. (stated) Brewster Coma Scale: Best Eye Response: (E4) spontaneous [...] 30-Jul-2020 23:23 by Elizabeth Ivan (RN) Normal [facility] UA MICROSCOPICon 07-31-2020 RBC 1 /HPF Normal 0-5 [facility] Comment on above: Performed By: #### U AMIC #### [facility] [address] [place] [address] SQUAMOUS EPITH. CELLS <1 Normal [facility] Comment on above: Performed By: #### U AMIC #### [facility] [address] [place] [address] WBC 22 /HPF Abnormal 0-5 [facility] Comment on above: Performed By: #### U AMIC #### [facility] [address] [place] [address] URINALYSISon 07-31-2020 Appearance (U) CLEAR Normal CLEAR [facility] Comment on above: Performed By: #### U A #### [facility] [address] [place] [address] Bilirubin Ql (U) Negative Normal NEGATIVE [facility] Comment on above: Performed By: #### U A #### [facility] [address] [place] [address] Color (U) STRAW Normal STRAW,YELLOW [facility] Comment on above: Performed By: #### U A #### [facility] [address] [place] [address] Glucose Ql (U) >=500(3+) Abnormal NEGATIVE [facility] Comment on above: Performed By: #### U A #### [facility] [address] [facility] [address] Hemoglobin Ql (U) SMALL(1+) Abnormal NEGATIVE [facility] Comment on above: Performed By: #### U A #### [facility] [address] [place] [address] Ketones Ql (U) Negative Normal NEGATIVE [facility] Comment on above: Performed By: #### U A #### [facility] [address] [place] [address] Leukocyte esterase Test strip Ql (U) TRACE Abnormal NEGATIVE [facility] Comment on above: Performed By: #### U A #### [facility] [address] [place] [address] Nitrite Ql (U) Negative Normal NEGATIVE [facility] Comment on above: Performed By: #### U A #### [facility] [address] [place] [address] pH (U) 6.0 [pH] Normal 5.0 - 8.0 [facility] Comment on above: Performed By: #### U A #### [facility] [address] [place] [address] Protein Ql (U) 100(2+) Abnormal NEGATIVE [facility] Comment on above: Performed By: #### U A #### [facility] [address] [place] [address] Specific gravity (U) [Rel density] 1.025 Normal 1.005 - 1.035 [facility] Comment on above: Performed By: #### U A #### [facility] [address] [place] [address] Urobilinogen (U) [Mass/Vol] mg/dL Normal 0.0 - 1.9 [facility] Comment on above: Performed By: #### U A #### [facility] [address] [place] [address] Vital Signs Date Time Vital Sign Value Performing Clinician Dontae fuentes 09-16-2022 14:48-0400 Blood Pressure Location Umer VALENCIA [facility] 09-16-2022 14:48-0400 Diastolic blood pressure 74 mm[Hg] Umer VALENCIA [facility] 09-16-2022 14:48-0400 Heart rate 70 /min Umer VALENCIA [facility] 09-16-2022 14:48-0400 Respiratory rate 16 /min Umer VALENCIA [facility] 09-16-2022 14:48-0400 Systolic blood pressure 130 mm[Hg] Umer VALENCIA [facility] 04-26-2022 11:04-0500 Blood Pressure Location Umer VALENCIA [facility] 04-26-2022 11:04-0500 Diastolic blood pressure 78 mm[Hg] Umer VALENCIA [facility] 04-26-2022 11:04-0500 Heart rate 62 /min Umer VALENCIA [facility] 04-26-2022 11:04-0500 Respiratory rate 16 /min Umer VALENCIA [facility] 04-26-2022 11:04-0500 Systolic blood pressure 134 mm[Hg] Umer VALENCIA [facility] 12-03-2021 13:08-0400 Blood Pressure Location Umer VALENCIA [facility] 12-03-2021 13:08-0400 Diastolic blood pressure 70 mm[Hg] Umer VALENCIA [facility] 12-03-2021 13:08-0400 Heart rate 65 /min Umer VALENCIA [facility] 12-03-2021 13:08-0400 Respiratory rate 16 /min Umer VALENCIA [facility] 12-03-2021 13:08-0400 Systolic blood pressure 109 mm[Hg] Umer VALENCIA [facility] 09-03-2021 13:39-0400 Blood Pressure Location [employer] [facility] 09-03-2021 13:39-0400 Diastolic blood pressure 67 mm[Hg] Umer VALENCIA [facility] 09-03-2021 13:39-0400 Heart rate 68 /min Umer VALENCIA [facility] 09-03-2021 13:39-0400 Respiratory rate 16 /min Umer VALENCIA [facility] 09-03-2021 13:39-0400 Systolic blood pressure 102 mm[Hg] [employer] [facility] Encounters Encounter Date Encounter Type Care Provider Facility Start: 02-10-2024 ambulatory Marianela X Nataly Sorensen y:MANUEL Walsh Start: 12-05-2023 End: 12-05-2023 ambulatory CHET SANDOVAL [facility] Start: 11-30-2023 End: 11-30-2023 ambulatory RENE ANTHONY [facility] Start: 11-28-2023 End: 11-28-2023 Emergency department patient visit JUAN DAVID Ramírez [facility] Start: 11-21-2023 Evaluation and manag ement of inpatient SAM ZELAYA [facility] Start: 11-18-2023 Evaluation and manag ement of inpatient ART [facility] Start: 11-17-2023 Evaluation and manag ement of inpatient ART [facility] Start: 11-15-2023 Evaluation and manag ement of inpatient [facility] Start: 11-15-2023 Evaluation and manag ement of inpatient [facility] Start: 11-15-2023 [facility]: 11-15-2023 Evaluation and manag ement of inpatient [facility] Start: 11-15-2023 End: 11-15-2023 ambulatory UNKNOWN PROVIDER Facility:[facility] Start: 11-15-2023 End: 11-22-2023 Evaluation and management of inpatient CHAKA [facility] Start: 11-13-2023 End: 11-13-2023 ambulatory CHET SANDOVAL Not Available Start: 11-11-2023 End: 11-11-2023 ambulatory Marianela X Orzech Facility:MANUEL [facility] Start: 11-11-2023 End: 11-11-2023 Patient encounter procedure Marianela X Orzech [facility] Start: 10-23-2023 End: 10-23-2023 ambulatory CHET SANDOVAL Not Available Start: 10-14-2023 End: 10-14-2023 ambulatory Marianela X Orzech [facility] Start: 10-14-2023 End: 10-14-2023 Patient encounter procedure [facility]ela X Orzech [facility] Start: 10-09-2023 End: 10-09-2023 ambulatory JEFFREY GABRIEL Not Available Start: 08-01-2023 End: 08-01-2023 ambulatory JUAN PABLO ALANIZ Not Available Start: 06-19-2023 End: 06-19-2023 ambulatory JUAN PABLO ALANIZ Not Available Start: 05-13-2023 End: 05-13-2023 ambulatory CAIT DUNHAM Facility:[facility] Start: 05-13-2023 End: 05-13-2023 Patient encounter procedure CAIT DUNHAM [facility] Start: 04-23-2023 End: 04-23-2023 ambulatory JUAN PABLO ALANIZ Not Available Start: 03-26-2023 End: 03-26-2023 ambulatory JUAN PABLO ALANIZ Not Available Start: 02-27-2023 End: 02-27-2023 ambulatory CHET SANDOVAL Not Available Start: 12-18-2022 End: 12-18-2022 ambulatory CAIT DUNHAM Facility:[facility] Start: 09-16-2022 End: 09-16-2022 Patient encounter procedure Umer VALENCIA [facility] Start: 07-26-2022 End: 07-27-[address] JUAN PABLO ALANIZ Facility:[facility] Start: 06-26-2022 End: 06-27-[address] JUAN PABLO ALANIZ Facility:[facility] Start: 05-23-2022 End: 05-24-[address] JUAN PABLO ALANIZ Facility:[facility] Start: 04-26-2022 End: 04-26-2022 Patient encounter procedure Umer VALENCIA [facility] Start: 04-22-2022 End: 04-23-[address] JUAN PABLO ALANIZ Facility:[facility] Start: 04-16-2022 End: 04-16-[address] JUAN PABLO ALANIZ Facility:[facility] Start: 04-08-2022 End: 04-08-2022 Patient encounter procedure Umer VALENCIA [facility] Start: 04-04-2022 ambulatory SHELLIE ROJAS . Facility:[facility] Start: 03-08-2022 End: 03-08-[address] JUAN PABLO ALANIZ Facility:[facility] Start: 03-04-2022 Encounter for preprocedural cardiovascular examination DR VINH HOLCOMB . [facility] Start: 03-04-2022 Encounter for preprocedural laboratory examination DR VINH HOLCOMB . [facility] Start: 03-03-2022 End: 03-03-[address] JUAN PABLO ALANIZ Facility:[facility] Start: 03-02-2022 Encounter for preprocedural cardiovascular examination DR VINH HOLCOMB . [facility] Start: 02-26-[address] VINH HOLCOMB . [...] 12-03-2021 End: 12-03-2021 Patient encounter procedure Umer Schultz VALENCIA [facility] Start: 11-29-2021 End: 11-30-2021 ambulatory MANDIE NOBLE Facility:[facility] Start: 11-27-2021 End: 11-27-[address] VINH HOLCOMB . Facility:[facility] Start: 10-02-2021 End: 10-03-[address] VINH HOLCOMB . Facility:[facility] Start: 09-21-2021 End: 09-21-[address] SUJIT GR . Facility:[facility] Start: 09-19-2021 End: 09-20-2021 ambulatory MANDIE NOBLE Facility:[facility] Start: 09-15-2021 End: 09-16-[address] SPARKLE NELSON Facility:[facility] Start: 09-03-2021 End: 09-03-2021 Patient encounter procedure Umer VALENCIA [facility] Start: 09-03-2021 End: 09-03-[address] JUAN PABLO ALANIZ Facility:[facility] Procedures Date Procedure Procedure Detail Performing Clinician Esophagogastroduodenoscopy Goldie VALENCIA Plan of Treatment Date Care Activity Detail Author Start: 08-22-2022 ambulatory Ambulatory Facility:[facility] Immunizations Immunization Date Immunization Notes Care Provider Fa [facility] 01-13-2023 influenza virus vacc ine, unspecified formulation Marianela Ingram [facility] 02-22-2022 influenza virus vacc ine, unspecified formulation Umer VALENCIA [facility] 12-21-2020 SARS-CoV-2 (COVID-19 ) mRNA BNT-162b2 vax Umer VALENCIA [facility] 11-30-2020 SARS-CoV-2 (COVID-19 ) mRNA BNT-162q8 vax Umer VALENCIA [facility] 01-24-2020 influenza virus vacc ine, unspecified formulation Umer VALENCIA [facility] 03-04-2019 influenza virus vacc ine, unspecified formulation Umer VALENCIA [facility] 08-05-2018 pneumococcal polysaccharide vaccine, 23 valent Umer ERIK [facility] 12-18-2016 influenza virus vacc ine, unspecified formulation Umer VALENCIA [facility] 12-06-2015 influenza virus vacc ine, unspecified formulation Umer VALENCIA [facility] 12-21-2014 influenza virus vacc ine, unspecified formulation Umer VALENCIA [facility] Payers Date Payer Category Payer Unknown [id number] 1961 Unknown [id number] 1940 Unknown [id number] 2.16.84 0.1.264995.3.579.2.593 1940 Unknown [id number] 2.16.84 0.1.040911.3.579.2.593 1940 Unknown [id number] 2.16.84 0.1.090172.3.579.2.593 1938 Unknown [id number] 2.16.84 0.1.182147.3.579.2.593 1938 Unknown [id number] 2.16.84 0.1.120783.3.579.2.593 1938 Unknown [id number] 2.16.84 0.1.373760.3.579.2.593 1938 Unknown [id number] 2.16.84 0.1.587924.3.579.2.593 1938 Unknown [id number] 2.16.84 0.1.612850.3.579.2.593 1938 Unknown [id number] 2.16.84 0.1.892060.3.579.2.593 1938 Unknown [id number] 2.16.84 0.1.970377.3.579.2.593 1938 Unknown [id number] 2.16.84 0.1.186497.3.579.2.593 1938 Unknown [id number] 2.16.84 0.1.197359.3.579.2.593 1938 Unknown [id number] 2.16.84 0.1.750230.3.579.2.593 1938 Unknown [id number] 2.16.84 0.1.694892.3.579.2.593 1938 Unknown [id number] 2.16.84 0.1.124103.3.579.2.593 1938 Unknown [id number] 2.16.84 0.1.850014.3.579.2.593 1938 Unknown [id number] 2.16.84 0.1.831258.3.579.2.593 1938 Unknown [id number] 2.16.84 0.1.519852.3.579.2.593 1938 Unknown [id number] 2.16.84 0.1.554743.3.579.2.593 1938 Unknown [id number] 2.16.84 0.1.045614.3.579.2.593 1938 Unknown [id number] 2.16.84 0.1.181183.3.579.2.593 1938 Unknown [id number] 2.16.84 0.1.750218.3.579.2.593 1938 Unknown [id number] 2.16.84 0.1.026875.3.579.2.593 1938 Unknown [id number] 2.16.84 0.1.785593.3.579.2.593 1938 Unknown [id number] 2.16.8 40.1.822386.3.579.2.727 1938 Unknown [id number] 2.16.8 40.1.119383.3.579.2.727 1938 Unknown [id number] 2.16.8 40.1.136168.3.579.2.727 1938 Unknown [id number] 2.16.8 40.1.607258.3.579.2.727 1938 Unknown [id number] 2.16.8 40.1.199287.3.579.2.727 1938 Unknown [id number] 2.16.84 0.1.072872.3.579.2.1259 1938 Unknown [id number] 2.16.84 0.1.542970.3.579.2.1259 1938 Unknown [id number] 2.16.84 0.1.884794.3.579.2.1259 1938 Unknown [id number] 2.16.84 0.1.027313.3.579.2.1259 1938 Unknown [id number] 2.16.84 0.1.647924.3.579.2.1259 1938 Unknown [id number] 2.16.84 0.1.276374.3.579.2.1259 1938 Unknown [id number] 2.16.840 .1.911268.3.579.2.1259 1938 Unknown [id number] 2.16.840 .1.466873.3.579.2.1259 1938 Unknown [id number] 2.16. 840.1.854886.3.579.2.732 1938 Unknown [id number] 2.16.8 40.1.030352.3.579.2.173 Social History Date Type Detail Facility Start: 09-03-2021 Tobacco smoking status Ex-smoker (fi nding) [facility] Sex Assigned At Male [facility] Start: 04-26-2022 End: 11-11-2023 Tobacco smoking status Never smoked tobacco (finding) [facility] Tobacco smoking status Never [facility] Functional Status Date Assessment Result Facility 11-11-2023 Functional Status N/A [facility] 09-16-2022 Functional Status N/A [facility] 04-26-2022 Functional Status N/A [facility] 12-03-2021 Functional Status N/A [facility] 09-03-2021 Functional Status N/A [facility] Clinical Notes 09-03-2021 to 11-22-2023 Note Date & Type Note Facility 11-22-2023 Note Hospital Medicine Discharge Summary Final Discharge Diagnosis: Episodes of sinus pauses/asystole requiring external pacing maker s/p permanent dual-chamber pacemaker on 11/18/2023 Recurrent syncope Acute encephalopathy Coronary artery disease, Coronary calcification, [facility] 11/15 LAD: prox 40%, mid 60-70%. 80% D1, 70% ostium D2 LCX: 50% RCA: mid 30%, prox PDA 70-80% Chronic kidney disease stage III Essential hypertension Hyperlipidemia Chronic osteoarthritis Obesity Hyponatremia Hypokalemia normocytic anemia Admission Diagnosis: Syncope and collapse [R55] Hospital course: Nat Moore is a an 83-year-old gentleman with PMH significant for type 2 diabetes mellitus, essential hypertension, hyperlipidemia, CKD stage IIIa, bilateral lower extremity edema on diuretic therapy, osteoarthritis, depression and mild cognitive impairment was initially admitted to the hospitalist service from [place] due to recurrent episodes of syncope secondary to spontaneous prolonged sinus pauses. He had progressively increasing sinus pauses and a CODE BLUE was called. By the time ICU team went to evaluate the patient and the patient had regained consciousness and was noted to be in first-degree AV block with heart rate in the 70s. Over the past few months he has been having bilateral lower extremity edema for which he was started on diuretic therapy with only minimal improvement. Per ED note he had an episode of diarrhea last night and also had some intractable nausea with the left lower abdominal pain as a part of his presenting complaints. During his stay in [place] ED he suddenly developed bradycardia prolonged sinus pause up to 18 seconds and became unresponsive. Code was activated and at the beginning of CPR he had regained his consciousness. He had another episode of sinus pause of about 12 seconds prior to transfer, however did not lose his consciousness at this time. On arrival to [facility] blood pressure was 158/72 mmHg, pulse rate 78 bpm, regular, SpO2 100% on room air, respiratory rate 20/min, temperature 97.2. 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 CT of the abdomen with contrast done at [place] ED showed nonobstructive bowel gas pattern with a small amount of stool within the colon, numerous diverticula along the sigmoid and descending colon without diverticulitis, no free air or free fluid or abscess noted. CTA of the chest was done which showed no evidence of PE or dissection. Basic labs notable for WBC 6.8, hemoglobin 12.3 g/dL, platelet 165. Showed a pH of 7.33, VBG pCO2 52. BMP showed sodium 141 mEq percent, potassium 4.3 mEq per 3, chloride 105, bicarb 30, creatinine 1.53 mg/dL, glucose 146, calcium 8.3, magnesium 1.8, high sensitive troponin normal, albumin low lipase normal. Cardiology evaluated the patient on arrival. A stat transthoracic echocardiogram was done which showed normal LV function with a EF 60%, no wall motion abnormalities noted, no significant valvular abnormalities except for mild calcified aortic valve. Patient underwent permanent pacemaker on 11/18/2023. He was deemed safe to be discharged out of the ICU by Cardiology. Patient also had a left heart cath on 825:C 11/15 LAD: prox 40%, mid 60-70%. 80% D1, 70% ostium D2 LCX: 50% RCA: mid 30%, prox PDA 70-80% They opted for medical management at this time. If patient becomes symptomatic may need intervention. Recommended to continue aspirin and statin. LDL was 78 A1c was 5.6. During the hospital course, he was delirious requiring scheduled Seroquel, hydroxyzine, and haloperidol as need. This could be secondary to hospital acquired delirium. Psychiatry also saw the patient during the hospitalization. Patient improved significantly. Daily evaluated the patient on 11/21/2023. [place] slip was removed and they deemed patient safe to transfer to SNF. No psychiatric admission was deemed necessary Patient's blood pressure was elevated, amlodipine 10 mg was added on discharge. Patient needs to be followed up in the SNF to adjust blood pressure medications if needed. He is also being discharged on doxycycline 100 mg twice daily for 14 days Surgical, Invasive or Diagnostic Procedures Done During Admission: Coronary angiogram, permanent pacemaker placement Consultations During Admission: cardiology, ICU, psychiatry Dear Dr. Corbin MD, Nat is advised to follow up with you within 1-2 weeks. Follow-up with: primary care, electrophysiology Scheduled appointments: Future Appointments Date Time Provider Department Center 12/02/2023 2:20 PM Liu Henning MD [facility] Your medication list START taking these medications Instructions Last Dose Given Next Dose Due amLODIPine 10 mg tablet Commonly known as: Norvasc Start taking on: November 23, 2023 Take 1 tablet (10 mg) by mouth in the morning. Do not start bef (more content not included)... [facility] 11-22-2023 Note Physical Therapy Name: Nat Moore Date of : 1940 Today's Date: 11/22/23 Pt is unable to be seen for therapy at this time secondary to pt to discharge @ 2:00 PM today. Check No Charge Time attempted: 1405 [facility] 11-22-2023 Note Pt originally set fo r 9am BLS transport to [facility] but per MD we will push back to 2pm transport due to high blood pressures. UPDATE 1:15PM- Per pt can still discharge today. Transport set for 2pm via [facility]. Assembled transfer packet and placed by chart. Sent final AVS and discharge orders via [facility]. Notified RN and pt's is aware of transport time. [facility] 11-21-2023 Note Attestation signed by Juan Pablo Liz MD at 11/24/2023 11:13 AM Documentation as noted above. Plan of Care: This afternoon the patient's (Donna Tony) and Daughter (Aye) were at the patient's bedside. We discussed that the patient's agitation has greatly improved, however he remains confused. Patient is alert and oriented x 1 to self and this is reported to be his baseline. Patient has diagnosed major neurocognitive disorder. Clarified who has been making the patient's medical decisions. Patient's , Donna Tony, is making his medical decisions while he is hospitalized. Her preference that she discussed with the primary team is for the patient to go to [facility] Discussed with the family that our strong recommendation is to make arrangements for the patient to have a medical POA and/or legal guardian for future decisions. The family confirmed their preferences for disposition plans to SNF. The Loxapine (10 mg nightly) has helped the patient with his agitation. Discussed with family and primary team that this will be discontinued once he is discharged, as he is back to his baseline. Patient's (Donna Tony) and daughter (Aye) understood and voiced their agreement with the current plan. Risks, alternatives and benefits were discussed. The patient's emergency application was removed. Psychiatry will sign off now. Thank you for the consult. Discussed with Dr. Liz. Melva Recinos MD PGY2 [facility] 11-21-2023 Note Hospital Medicine Daily Progress Note - 11/21/2023 2:13 PM; Room: [facility]/3102-01 Admission: 11/15/2023 2:42 PM; Length of stay: 6 days THE HOSPITALIST TEAM PREFERS TO USE [employer] CHAT FOR COMMUNICATION 7AM-7PM. IF I DO NOT RESPOND WITHIN 15 MINUTES, PLEASE PAGE ME/CALL THROUGH THE PAINTER SHIPYARD. FROM 7PM-7AM, PLEASE PAGE [phone](COVR) Code Status: Full Code Barriers to Discharge: SNF placement Expected Discharge Date: Today Discharge Destination: [facility]pc facility Overview Patient is seen for evaluation and management of syncope secondary to heart block. Status post permanent pacemaker placement.. Subjective Patient was seen and evaluated at bedside. He was transferred out of the ICU yesterday. He appears comfortable. Denies headache vision changes chest pain nausea vomiting. He was able to hold a normal conversation. He is oriented to self only. He is not sure where he is what month or what the president is. Otherwise he denies lower extremity swelling tenderness. He does not know why he is in the hospital Physical Exam Visit Vitals BP 169/74 (BP Location: Right arm, Patient Position: Lying) Pulse 81 Temp 36.8 ???C (98.2 ???F) (Temporal) Resp 20 Intake/Output Summary (Last 24 hours) at 11/21/2023 1413 Last data filed at 11/20/2023 1854 Gross per 24 hour Intake 367.5 ml Output 225 ml Net 142.5 ml Estimated body mass index is 45.49 kg/m??? as calculated from the following: Height as of this encounter: 1.651 m (5' 5 ). Weight as of this encounter: 124 kg (273 lb 5.9 oz). GENERAL: The patient is well developed and nontoxic. Sittng in bed. No apparent distress. VITAL SIGNS: Reviewed in the EMR. HEENT: Nonicteric sclerae, EOMI. Oropharynx clear. Moist mucous membranes. Conjunctivae appear well perfused. Chest: Pacemaker pocket looks fine no overlying tenderness HEART: Regular rate and rhythm without murmurs. LUNGS: Clear to auscultation bilaterally. No wheezing and crackles. ABDOMEN: Soft, positive bowel sounds, nontender, no organomegaly. SKIN: No rash, no excessive bruising, petechiae, or purpura. NEUROLOGIC: Cranial nerves II-XII intact without motor/sensory deficit. MSK: 1+ lower extremity edema Active Inpatient Problems Principal Problem: Syncope and collapse Active Problems: Status post cardiac pacemaker procedure Primary hypertension Acute metabolic encephalopathy Coronary artery disease involving [place] coronary artery of [place] heart with angina pectoris (CMS/HCC) Hypokalemia Hypernatremia Obesity due to excess calories without serious comorbidity Sinus pause Assessment and Plan Episodes of sinus pauses/asystole requiring external pacing maker s/p permanent dual-chamber pacemaker on 11/18/2023 Recurrent syncope Acute encephalopathy Coronary artery disease Chronic kidney disease stage III Essential hypertension Hyperlipidemia Chronic osteoarthritis Obesity Hyponatremia Hypokalemia normocytic anemia Plan Continue inpatient cares Psych following. [place] slip removed. No need for psych admission. Discussed with them For blood pressure continue amlodipine 5 mg daily, Lasix 40 mg daily, Cozaar 50 mg daily. Blood pressure running on the higher side. Continue aspirin 81 mg 40 mg. Doxycycline twice daily for 14 days post pacemaker procedure. Continue rest of the medications. Will discontinue Protonix. Will discontinue normal saline, encourage oral intake. Replace electrolytes as needed. Daily labs DVT prophylaxis with subcu heparin. Patient is full code. Scheduled Meds amLODIPine, 5 mg, oral, Daily aspirin, 81 mg, oral, Daily atorvastatin, 40 mg, oral, Nightly docusate sodium, 100 mg, oral, Daily donepezil, 10 mg, oral, Nightly doxycycline, 100 mg, oral, BID FLUoxetine, 20 mg, oral, Daily furosemide, 40 mg, oral, Daily heparin (porcine), 5,000 Units, subcutaneous, BID losartan, 50 mg, oral, Daily methocarbamol, 500 mg, oral, Nightly nystatin, , Topical, BID oxybutynin XL, 5 mg, oral, Nightly Oxygen Therapy, , inhalation, Continuous pantoprazole, 40 mg, intravenous, q AM Or pantoprazole, 40 mg, oral, q AM sulfur hexafluoride microsphr, 2 mL, intravenous, Once in imaging tamsulosin, 0.4 mg, oral, Daily sodium chloride, 75 mL/hr, Last Rate: 75 mL/hr (11/20/23 4922) Pertinent Investigations Hematology: Results from last 7 days Lab Units 11/21/23 0904 11/19/23 1756 WBC AUTO 10*3/uL 9.67 7.82 HEMOGLOBIN g/dL 12.6* 12.7* HEMATOCRIT % 38.5* 38.7* MCV fL 98.2* 97.0 PLATELETS AUTO 10*3/uL 172 148* Chemistry: Results from last 7 days Lab Units 11/21/23 0904 11/19/23 1756 11/17/23 0603 11/16/23 2146 SODIUM mmol/L 146* 145 141 141 POTASSIUM mmol/L 3.3* 3.5 4.3 4.3 CHLORIDE mmol/L 113* 112* 109* 108* CO2 mmol/L 27 26 25 27 BUN mg/dL 35* 49* 33* 31* CREATININE mg/dL 1.47* 1.69* 1.42* 1.53* GLUCOSE mg/dL 135* 122* 169* 124* MAGNESIUM mg/dL -- -- 2.0 2.1 CALCIUM mg/dL 8. (more content not included)... [facility] 11-21-2023 Note Physical Therapy Physical Therapy Treatment Patient Name: Nat Moore : 1940 Today's Date: 11/21/2023 Patient Active Problem List Diagnosis Syncope and collapse Sinus pause Objective General Visit Information: PT Last Visit PT Received On: 11/21/23 Response to Previous Treatment: Patient with no complaints from previous session. General Family/Caregiver Present: No Subjective: Pt. seen bedside for PT session this a.m. Upon entry, pt in bed. This ECG TECHNICIAN introduces herself and intention for session. Per MIGUEL Jones pt is pleasant but overall confused. She okays session, including up to bedside chair with chair alarm, he no longer has roll belt. Pt. currently denies pain and is agreeable to activities as able. Activity Tolerance Activity Tolerance Ambulation comments: Pt. ambulates within his room and sits in bedside chair. Pt. ambulates ~14' with Min. A x 2, no AD used. (Please see Ambulation Section for further details). Endurance: Stage II Activity Tolerance Comments: Pt. limited at this time by overall confusion. Increased fatigue is noted during ambulation, but no SOB. Precautions Precautions UE Weight Bearing Status: (S) Left (Pacer precautions, pt requires frequent reminders during session regarding precautions) Medical Precautions: fall risk, bed/chair alarm, telemetry, condom cath Post-Surgical Precautions: pacer precautions Pain Pain Assessment Pain Assessment: No/denies pain Cognition Cognition Overall Cognitive Status: Impaired Arousal/Alertness: Generalized responses Orientation Level: Oriented to person, Disoriented to time, Disoriented to situation (Stated month to be April and year to be 2029 . He was unable to state President. Did state he was at [facility] .) Following Commands: Follows one step commands with increased time, Follows one step commands with repetition Safety Judgment: Decreased awareness of need for assistance, Decreased awareness of need for safety, Impulsive Awareness of Errors: Decreased awareness of errors Deficits: Decreased awareness of deficits Attention Span: Attends with cues to redirect Memory: Decreased short term memory, Decreased recall of biographical information Problem Solving: Assistance required to identify errors made, Assistance required to generate solutions, Assistance required to implement solutions Communication: Intact General Assessment General Assessment Hearing: Hard of hearing - hearing aides not present Hand Dominance: Right Static Sitting Balance Static Sitting Balance Static Sitting-Balance Support: No upper extremity supported, Feet supported Static Sitting-Level of Assistance: Close supervision Dynamic Sitting Balance Dynamic Sitting Balance Dynamic Sitting-Balance Support: Feet supported, Right upper extremity supported Dynamic Sitting Balance-Level of Assistance: Minimum assistance Dynamic Sitting-Comments: scooting forward to EOB Static Standing Balance Static Standing Balance Static Standing-Balance Support: Right upper extremity supported Static Standing-Level of Assistance: Minimum assistance Static Standing-Comment/Number of Minutes: static stand at EOB Dynamic Standing Balance Dynamic Standing Balance Dynamic Standing-Balance Support: Right upper extremity supported Dynamic Standing Balance-Level of Assistance: (Min. A x 2) Dynamic Standing-Comments: during ambulation Treatment: Ambulation Ambulation: Yes Ambulation 1 Surface 1: Level tile Device 1: No device Assistance 1: (Min. A x 2) Quality of Gait 1: Due to overall confusion, unilateral device is not attempted instead A x 2 is given. Gait belt is donned, CHANNEL SALES MANAGER is given on the right side and gait belt is used on the left . Pt. with short, shuffling steps to advance gait. Mild to moderate instability is noted, but no LOB. Fwd flexed posture persists with fwd head requiring verbal cues to increase upright gaze. Comments/Distance (ft) 1: ~14' Stairs Stairs: No Bed Mobility Bed Mobility: Yes Bed Mobility 1 Bed Mobility From 1: Supine Bed Mobility Type 1: To Bed Mobility to 1: Short sit Level of Assistance 1: Minimum assistance Bed Mobility Comments 1: HOB elevated, bedrail raised. Pt. exits bed on left side. He was able to advance BLEs to EOB but uses ECG TECHNICIAN's hand with his right hand to assist in raising upper body from bed. Bed Mobility 2 Bed Mobility From 2: Scooting Bed Mobility Type 2: To Bed Mobility to 2: (EOB in sitting) Level of Assistance 2: Minimum assistance Bed Mobility Comments 2: Pt uses ECG TECHNICIAN's hand with his right hand to assist in scooting hips to EOB Transfers Transfer: Yes Transfer 1 Transfer From 1: Sit Transfer Type 1: To and from Transfer to 1: Stand Transfer Device 1: none (ECG TECHNICIAN and aide on either side of pt) Transfer Level of Assistance 1: Minimum assistance, x2 Trials/Comments 1: Pt. instructed to (more content not included)... [facility] 11-21-2023 Note Attestation signed by Juan Pablo Liz MD at 11/21/2023 12:47 PM Very pleasant moderately demented elderly man. He is cooperative now and has no complaints. His family will need to be involved in determining his disposition plans. The Loxapine has helped considerably and may not be needed once he is discharged. It can always be restarted if he becomes delusional, aggressive or otherwise psychotic. Psychiatry Service - Followup Note Patient Name: Nat Moore MRN / CSN: [id number] Date of / Age: 2 1940 / 83 y.o. / male Encounter Date: 11/21/23 Primary Care Physician: Juan Pablo Alaniz MD Nat Moore is an 83 y.o. male with psychiatric diagnoses of: major depressive disorder and pertinent medical history of type 2 diabetes mellitus, essential hypertension, hyperlipidemia, CKD stage IIIa, bilateral lower extremity edema on diuretic therapy, osteoarthritis, coronary calcifications, and mild cognitive impairment originally presenting to the [facility] Emergency Room on 11/15/2023 for evaluation of recurrent episodes of syncope secondary to spontaneous prolonged sinus pause. The patient was transferred via air ambulance from the [facility]. Psychiatry was consulted for management of agitation secondary to dementia . Summary Medical Course: The patient was admitted medically for management of syncope and collapse. Other medical conditions include prolonged sinus pauses, abnormal EKG: bifascicular block, coronary calcification on chest CT scan, chest pain - tenderness on palpation, exertional chest pain, chronic kidney disease stage IIIb, intractable nausea, essential hypertension, mixed hyperlipidemia, and chronic osteoarthritis. 11/16/2023 - Per Intensive Care note, the patient had progressively increasing sinus pauses and a CODE BLUE was called. By the time ICU team went to evaluate the patient and the patient had regained consciousness and was noted to be in first-degree AV block with heart rate in the 70s. Episodes of sinus pauses/asystole required temporary transvenous pacemaker placement on 11/16/2023 and permanent pacemaker placed on 11/18/2023. Psychiatric Course: Per the nursing staff, the patient has been agitated, paranoid and physically combative for the past few days. The patient constantly tries to get out of bed and has needed restraints. The primary team started the patient on Seroquel and the dose was increased over the past couple of days because of increased confusion and agitation. The patient has become physical with the staff and reportedly ripped the monitor off the wall. The patient has reportedly been better on the higher doses of Seroquel, but still requires restraints. The patient is stable to transfer out of ICU but is still too agitated to do so. The agitation is reported to occur at all times of the day and at night. Psychiatry was consulted on 11/20/2023 for agitation and confusion overnight. The patient has dementia, depression, and cognitive decline at baseline. The patient was laying peacefully in bed with wrist restraints intact. The patient was not agitated throughout the encounter. The patient reports he is doing rough and feels dreary. He describes himself as being depressed with feelings of helplessness and hopelessness with decreased energy. He also reports feeling anxious but not about anything specific. He also reports feeling frustrated and angry at times that he attributes to having headaches. The patient does not recall any agitated episodes. The patient describes his memory as bad and at one point claimed I don't know what's right and wrong. Throughout the encounter, the patient would constantly bring up the weather and how it looked outside. He describes his mood like the weather was today, dreary. 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 The patient reports being to his , Donna, and having 4 children. He reports he came from [place] where he lives, but was not able to describe why he came to hospital or where he is now. 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 Reported Behavior: Combative and agitated PRN Medications Administered: Seroquel 25 mg, PRN, oral, q8h last dose 11/20/2023 @ 1000 Current Psychiatric Medications: Fluoxetine 20 mg, every day, oral Donepezil 10 mg, nightly, oral Previous Psychiatric Medications while hospitalized: Seroquel 50 mg, nightly, oral Seroquel 25 mg, oral, nightly Seroquel 25 mg, oral, BID Vistaril 25 mg, oral, every day Haloperidol 1 mg, IV, every day Midazolam injection PRN 8/ (more content not included)... [facility] 11-20-2023 Note 11/20/23 7146 Referral Data Referral Source Physician Referral Reason Placement Patient Information Primary Caregiver Self Accompanied by/Relationship Phone call with via phone Activities of Daily Living Assistive Device Cane Living Arrangement (Current/Prior to Hospitalization) Private residence (mobile home with ramp) Ambulation Independent Dressing Independent Feeding Independent Behavior Oriented (oreinted at baseline per however delium/confused here in ICU.) Discharge Planning Support Systems Spouse/significant other Type of Residence [facility] facility Will patient need Precert for Post Acute needs? Yes Patient's goal for discharge would like the facility in [place] for rehab 1. [facility] 2. [facility] 3. (if not accepted in [place]) she is ok with [facility]. Does the patient need discharge transport arranged? Yes SW called patient to discuss consult for SNF placement for rehab. Patient is currently confused and not able to answer questions. SW discussed network provider list. would like provider in [place] with [facility] [place] as 1st choice. She would [facility] as 2nd and she is ok if neither can accept for [facility] as 3rd choice. Referrals made as requested. Precert will be needed. SW following. [facility] 11-20-2023 Note Attestation signed by William Feldman MD at 11/20/2023 2:20 PM I reviewed the salient portions of the patient history. I have seen and examined the patient during rounds with the resident/fellow .. I repeated the ba components of the exam. Agree with the noted assessment and plan. Severe delirium likely multifactorial including ICU psychosis, low cardiac output state however patient had placement of functional pacemaker however the patient was placed on dopamine for 24 hours before the pacemaker was placed. No evidence of active infection patient currently is on Seroquel which was increased suggest psych consult William Feldman MD Pulmonary Progress Note Patient - Nat Moore Age - 83 y.o. - 1940 [facility] # - [id number] Date of Admission - 11/15/2023 2:42 PM HPI/Hospital Course Nat Moore is a an 83-year-old gentleman with PMH significant for type 2 diabetes mellitus, essential hypertension, hyperlipidemia, CKD stage IIIa, bilateral lower extremity edema on diuretic therapy, osteoarthritis, depression and mild cognitive impairment was initially admitted to the hospitalist service from [place] due to recurrent episodes of syncope secondary to spontaneous prolonged sinus pauses. Over the last 3 hours the patient had progressively increasing sinus pauses and a CODE BLUE was called. By the time ICU team went to evaluate the patient and the patient had regained consciousness and was noted to be in first-degree AV block with heart rate in the 70s. The patient however was nauseated and confused unable to answer most questions appropriately hence remaining HPI has been collected through chart review. Over the past few months he has been having bilateral lower extremity edema for which he was started on diuretic therapy with only minimal improvement. Per ED note he had an episode of diarrhea last night and also had some intractable nausea with the left lower abdominal pain as a part of his presenting complaints. During his stay in [place] ED he suddenly developed bradycardia prolonged sinus pause up to 18 seconds and became unresponsive. Code was activated and at the beginning of CPR he had regained his consciousness. He had another episode of sinus pause of about 12 seconds prior to transfer, however did not lose his consciousness at this time. On arrival to this facility blood pressure was 158/72 mmHg, pulse rate 78 bpm, regular, SpO2 100% on room air, respiratory rate 20/min, temperature 97.2. 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 CT of the abdomen with contrast done at [place] ED showed nonobstructive bowel gas pattern with a small amount of stool within the colon, numerous diverticula along the sigmoid and descending colon without diverticulitis, no free air or free fluid or abscess noted. CTA of the chest was done which showed no evidence of PE or dissection. Basic labs notable for WBC 6.8, hemoglobin 12.3 g/dL, platelet 165. Showed a pH of 7.33, VBG pCO2 52. BMP showed sodium 141 mEq percent, potassium 4.3 mEq per 3, chloride 105, bicarb 30, creatinine 1.53 mg/dL, glucose 146, calcium 8.3, magnesium 1.8, high sensitive troponin normal, albumin low lipase normal. Cardiology evaluated the patient on arrival. A stat transthoracic echocardiogram was done which showed normal LV function with a EF 60%, no wall motion abnormalities noted, no significant valvular abnormalities except for mild calcified aortic valve. Patient underwent permanent pacemaker on 11/18/2023. He was deemed safe to be discharged out of the ICU by Cardiology. During the hospital course, he was delirious requiring scheduled Seroquel, hydroxyzine, and haloperidol as need. This could be secondary to hospital acquired delirium SUBJECTIVE Patient was seen and examined at bedside this morning. Overnight, he received Hydroxyzine 25 mg. He was alert, oriented to person only. He kept saying 'want to make sure I am covered'. He denies chest pain, shortness of breath, abdominal pain, nausea, or vomiting. OBJECTIVE Vitals height is 1.651 m (5' 5 ) and weight is 121 kg (267 lb 13.7 oz). His temporal temperature is 36.4 ???C (97.5 ???F). His blood pressure is 171/68 and his pulse is 65. His respiration is 12 and oxygen saturation is 95%. Temp: [36 ???C (96.8 ???F)-36.5 ???C (97.7 ???F)] 36.4 ???C (97.5 ???F) Heart Rate: [65-110] 65 Resp: [7-20] 12 BP: (139-184)/(55-169) 171/68 Physical Exam: General: alert, oriented to person HEENT: Atraumatic, normocephalic, PERRLA Neck: Supple neck. Respiratory: Clear breathing sound bilaterally, no crackles, bilateral rales Heart: Regular rhythm, no murmur, no rub. Neurology: Can move all extremities, no focal deficit (more content not included)... 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 Crush meds in puree 1:1 direct supervision at meals Baseline Assessment Temperature Spikes Noted: Not applicable Respiratory Status: Room air History of Intubation: No Behavior/Cognition: Alert, Confused, Distractible, Doesn't follow directions Dentition: Adequate Vision: Functional for self-feeding Patient Positioning: Upright in bed (but was constantly wiggling to try to get out of bed) Baseline Vocal Quality: Normal Volitional Cough: Strong Volitional Swallow: Within Functional Limits Diet level prior to exam: Dyspahgia II with thin liquids No family present Order received per MIGUEL Feliciano with concerns that pt had increased pocketing while eating soft foods and was concerned for choking per his confusion. SUBJECTIVE HPI: Nat Moore is a 83 y.o. male with PMHx significant for HTN/HLD, CKD 3A, dementia, obesity, coronary calcifications who presented via air ambulance from [facility] due to recurrent episodes of syncope secondary to spontaneous prolonged sinus pause. He had initially presented for worsening midsternal chest pain lower back pain located in his mid chest aching in nature, 6 out of 10 on intensity scale, nonradiating associated with SOB. During his stay at [place] he developed bradycardia prolonged sinus pause up to 18 seconds and became unresponsive. A CODE BLUE was called however at the beginning of CPR he had regained consciousness. Prior to transfer he had another sinus pause of about 12 seconds however did not lose consciousness. Laryngeal Function Vocal Quality: Within Functional Limits Vocal Intensity: No impairment Apraxia: None present Intelligibility: Intelligible Intelligibility Ratin%-99% Dysarthria : Unable to assess Consistencies Assessed Consistencies Assessed: Yes Thin Presentation: Straw (pt not able to follow the directions) Oral: Within functional limits Pharyngeal: Within Functional Limits Puree Presentation: Spoon Oral: Within functional limits Pharyngeal: Within Functional Limits Solid Presentation: Spoon (noodles, bread and butter and peaches) Oral: Impaired Mastication, Pocketing Left, Pocketing Right, Increased Anterior to Posterior Transit (pt had a difficult time chewing the solid bolus and required max assist to ensure he chewed and swallowed it- there was noted oral stasis on tongue and both sides of cheeks. His decreased cognition prevented him from being aware of oral stasis.) Pharyngeal: Within Functional Limits Aspiration Risk Risk for Aspiration: Yes (at high risk for choking due to confusion while eating) Diet Solids Recommendation: Pureed Diet Liquids Recommendations: Thin liquids Compensatory Swallowing Strategies: Upright as possible for all oral intake, Full supervision with meals, One to one assist with meals Recommended Form of Medications: Crushed (in puree) Recommendations Duration of Treatment: 15 [facility] 11-19-2023 Note Attestation signed by William Feldman MD at 11/19/2023 5:04 PM I reviewed the salient portions of the patient history. I have seen and examined the patient during rounds with the resident/fellow Tahira . I repeated the ba components of the exam. Agree with the noted assessment and plan. Patient became perfused the reason why was started on Seroquel and now increased the Seroquel 25 twice daily. Dopamine was weaned and currently is discontinued. Pacemaker is in place and functioning William Feldman MD Pulmonary Progress Note Patient - Nat Moore Age - 83 y.o. - 1940 Date of Admission - 11/15/2023 2:42 PM HPI/Hospital Course Nat Moore is a an 83-year-old gentleman with PMH significant for type 2 diabetes mellitus, essential hypertension, hyperlipidemia, CKD stage IIIa, bilateral lower extremity edema on diuretic therapy, osteoarthritis, depression and mild cognitive impairment was initially admitted to the hospitalist service from [place] due to recurrent episodes of syncope secondary to spontaneous prolonged sinus pauses. Over the last 3 hours the patient had progressively increasing sinus pauses and a CODE BLUE was called. By the time ICU team went to evaluate the patient and the patient had regained consciousness and was noted to be in first-degree AV block with heart rate in the 70s. The patient however was nauseated and confused unable to answer most questions appropriately hence remaining HPI has been collected through chart review. Over the past few months he has been having bilateral lower extremity edema for which he was started on diuretic therapy with only minimal improvement. Per ED note he had an episode of diarrhea last night and also had some intractable nausea with the left lower abdominal pain as a part of his presenting complaints. During his stay in [place] ED he suddenly developed bradycardia prolonged sinus pause up to 18 seconds and became unresponsive. Code was activated and at the beginning of CPR he had regained his consciousness. He had another episode of sinus pause of about 12 seconds prior to transfer, however did not lose his consciousness at this time. On arrival to this facility blood pressure was 158/72 mmHg, pulse rate 78 bpm, regular, SpO2 100% on room air, respiratory rate 20/min, temperature 97.2. 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 CT of the abdomen with contrast done at [place] ED showed nonobstructive bowel gas pattern with a small amount of stool within the colon, numerous diverticula along the sigmoid and descending colon without diverticulitis, no free air or free fluid or abscess noted. CTA of the chest was done which showed no evidence of PE or dissection. Basic labs notable for WBC 6.8, hemoglobin 12.3 g/dL, platelet 165. Showed a pH of 7.33, VBG pCO2 52. BMP showed sodium 141 mEq percent, potassium 4.3 mEq per 3, chloride 105, bicarb 30, creatinine 1.53 mg/dL, glucose 146, calcium 8.3, magnesium 1.8, high sensitive troponin normal, albumin low lipase normal. Cardiology evaluated the patient on arrival. A stat transthoracic echocardiogram was done which showed normal LV function with a EF 60%, no wall motion abnormalities noted, no significant valvular abnormalities except for mild calcified aortic valve. Patient underwent permanent pacemaker on 11/18/2023. SUBJECTIVE Patient was seen and examined at bedside this morning. He remains hemodynamically stable, saturating well on room air. He remains off vasopressors and sedation. He was alert, oriented to place only. OBJECTIVE Vitals height is 1.651 m (5' 5 ) and weight is 121 kg (267 lb 13.7 oz). His temperature is 36 ???C (96.8 ???F). His blood pressure is 150/63 and his pulse is 80. His respiration is 18 and oxygen saturation is 99%. Temp: [35.9 ???C (96.6 ???F)-36.2 ???C (97.2 ???F)] 36 ???C (96.8 ???F) Heart Rate: [60-102] 80 Resp: [4-23] 18 BP: (124-158)/(54-113) 150/63 Physical Exam: General: alert, oriented to place HEENT: Atraumatic, normocephalic, PERRLA Neck: Supple neck. Respiratory: Clear breathing sound bilaterally, no crackles, bilateral rales Heart: Regular rhythm, no murmur, no rub. Neurology: Can move all extremities, no focal deficit. Abdomen: Soft, not distended, not tender, Alford sign is negative. Extremities: No cyanosis, no edema. Skin: Warm and dry. Weight: Admission weight: 108 kg (238 lb) Wt Readings from Last 1 Encounters: 11/17/23 121 kg (267 lb 13.7 oz) Input/Output: Intake/Output Summary (Last 24 hours) at 11/19/2023 1449 Last data filed at 11/18/2023 1623 Gross per 24 hour Intake 19.02 ml Output -- Net 19.02 ml Lab Results CBC: Result (more content not included)... [facility] 11-19-2023 Note Attestation signed by Nora Rivera MD at 11/19/2023 3:06 PM GC: I saw this patient. I personally performed the critical/ba portions that determines the level of service. I was directly involved in the management and treatment plan of the patient. I reviewed fellow Dr. Sims's note and agree with the documentation Cardiology Progress Note REASON FOR CONSULT Reason for Consult: Sinus Pauses SUBJECTIVE HPI: Nat Moore is a 83 y.o. male with PMHx significant for HTN/HLD, CKD 3A, dementia, obesity, coronary calcifications who presented via air ambulance from [facility] due to recurrent episodes of syncope secondary to spontaneous prolonged sinus pause. He had initially presented for worsening midsternal chest pain lower back pain located in his mid chest aching in nature, 6 out of 10 on intensity scale, nonradiating associated with SOB. During his stay at [place] he developed bradycardia prolonged sinus pause up to 18 seconds and became unresponsive. A CODE BLUE was called however at the beginning of CPR he had regained consciousness. Prior to transfer he had another sinus pause of about 12 seconds however did not lose consciousness. Upon arrival, HR 78, BP 158/72, 100% on room air, stat EKG showed SR with first-degree AV block, and left anterior fascicular block. Cardiology consulted for bradycardia/sinus pauses Interval History: Patient seen and examined at bedside. In NAD. Resting comfortably. Still in restraints. S/p [employer] DC-PPM yesterday, tolerated well. OBJECTIVE Objective Objective: Visit Vitals BP (!) 140/113 Pulse 83 Temp 36.2 ???C (97.2 ???F) (Temporal) Resp 18 Physical Examination: Physical Exam Vitals reviewed. Constitutional: Appearance: Normal appearance. He is obese. He is ill-appearing. HENT: Head: Normocephalic and atraumatic. Eyes: General: No scleral icterus. Extraocular Movements: Extraocular movements intact. Cardiovascular: Rate and Rhythm: Normal rate and regular rhythm. Pulses: Normal pulses. Heart sounds: Normal heart sounds. No murmur heard. No friction rub. No gallop. Comments: Paced intermittent 60bpm Pulmonary: Effort: Pulmonary effort is normal. Breath sounds: Normal breath sounds. No stridor. No wheezing, rhonchi or rales. Abdominal: General: Bowel sounds are normal. Palpations: Abdomen is soft. There is no mass. Tenderness: There is no abdominal tenderness. There is no guarding. Hernia: No hernia is present. Musculoskeletal: Right lower leg: Edema present. Left lower leg: Edema present. Skin: Capillary Refill: Capillary refill takes less than 2 seconds. Neurological: Mental Status: He is disoriented. Psychiatric: Mood and Affect: Mood normal. Behavior: Behavior normal. Current Meds: Current Facility-Administered Medications: aspirin EC tablet 81 mg, 81 mg, oral, Daily, Kulwinder Figueroa MD, 81 mg at 11/19/23 1007 atorvastatin (Lipitor) tablet 40 mg, 40 mg, oral, Nightly, Kulwinder Figueroa MD, 40 mg at 11/18/23 2101 dexmedeTOMIDine (Precedex) 4 mcg/mL in sodium chloride 0.9 % 250 mL infusion, 0.2-1.5 mcg/kg/hr, intravenous, Continuous, Art Mckoy MD, Stopped at 11/18/23 1623 docusate sodium (Colace) capsule 100 mg, 100 mg, oral, Daily, Nils Zimmer MD, 100 mg at 11/18/23 1106 donepezil (Aricept) tablet 10 mg, 10 mg, oral, Nightly, Gurdeep Obrien MD FLUoxetine (PROzac) capsule 20 mg, 20 mg, oral, Daily, Nils Zimmer MD, 20 mg at 11/19/23 1007 heparin (porcine) injection 5,000 Units, 5,000 Units, subcutaneous, BID, Watson Alcantar MD, 5,000 Units at 11/19/23 1007 hydrALAZINE (Apresoline) injection 10 mg, 10 mg, intravenous, q6h PRN, Gurdeep Obrien MD, 10 mg at 11/18/23 0911 HYDROmorphone (Dilaudid) injection 0.5 mg, 0.5 mg, intravenous, q3h PRN, Gurdeep Obrien MD, 0.5 mg at 11/19/23 0347 melatonin tablet 5 mg, 5 mg, oral, Nightly PRN, Nils Zimmer MD methocarbamol (Robaxin) tablet 500 mg, 500 mg, oral, Nightly, Nils Zimmer MD, 500 mg at 11/18/232100 nystatin (Mycostatin) 100,000 unit/gram powder, , Topical, BID, Giles Altman MD, Given at 11/19/23 1007 oxybutynin XL (Ditropan-XL) 24 hr tablet 5 mg, 5 mg, oral, Nightly, Nils Zimmer MD, 5 mg at 11/18/23 2100 Oxygen Therapy, , inhalation, Continuous, Art Mckoy MD, Stopped at 11/19/23 0905 pantoprazole (ProtoNix) injection 40 mg, 40 mg, intravenous, Daily, Watson Alcantar MD, 40 mg at 11/19/23 1007 QUEtiapine (SEROquel) tablet 25 mg, 25 mg, oral, BID, Suzanna Hoffmann MD sennosides-docusate sodium (Brittney-Colace) 8.6-50 mg per tablet 1 tablet, 1 tablet, oral, Daily PRN, Nils Zimmer MD Insert peripheral IV, , , Once (more content not included)... [facility] 11-19-2023 Note 11/19/23 1125 Admission Assessment Questions Verify insurance with patient Yes (with family) Do you understand medical disease or what brought you into the hospital? No Who is your current PCP? Juan Pablo Alaniz MD Can I schedule a follow up appointment for you at the time of discharge? Yes Do you understand why you are taking your current medications? No Are you taking your medications as prescribed? Yes Did patient provide teach back? No Pharmacy Bedside Delivery Status Interested Does the patient have a child welfare caseworker assigned to them through their insurance? No Living Arrangement (Current/Prior to Hospitalization) Private residence (with ) Does the patient have history of HHC or SNF? No Assistive Device Cane Patient's goal for discharge likely snf Was patient reminded that goal for discharge is 11am? No Does the patient have transportation at discharge? No Type of Residence [facility] facility Is PT/OT appropriate? Yes Is PT/OT ordered? Yes Is SW consult appropriate? Yes Is SW consult ordered? Yes Do you understand the benefits of MyChart? No Were you able to send link and activate MyChart? No [facility] 11-19-2023 Note Consult rec'd for SN F. PT/OT recommend SNF. No family at bedside at this time. SW to try again later. [facility] 11-19-2023 Note Physical Therapy Physical Therapy Evaluation Patient Name: Nat Moore : 1940 Today's Date: 11/19/2023 Patient is a 83 y/o male presenting from OSH with syncope and sinus pauses. Noted to be in first-degree AV block. Underwent pacemaker placement 11/18/23. Noted significant increased confusion this morning, unable to provide home set up for insight into PLOF. Max (A) for most mobility, difficulty maintaining pacer precautions due to cognition Discharge: SNF General Subjective: RN approved PT session and OOB activity. Patient sitting EOB with nursing staff upon arrival. Upon completion, patient left in chair with alarm ON, roll belt in place, BLE feet elevated. PT Diagnosis: Impaired functional independence/activity tolerance Patient Active Problem List Diagnosis Syncope and collapse Sinus pause No past medical history on file. No past surgical history on file. Precautions Precautions UE Weight Bearing Status: Left (Pacer Precautions) Medical Precautions: pacemaker, telemetry, fall risk, chair alarm (roll belt) Pain Pain Assessment Pain Assessment: No/denies pain Pain Score: 0 - No pain Cognition Cognition Overall Cognitive Status: Impaired Arousal/Alertness: Generalized responses Orientation Level: Oriented to person, Disoriented to place, Disoriented to time, Disoriented to situation Following Commands: Follows one step commands with increased time, Follows one step commands with repetition General Assessment General Assessment Hearing: Hard of hearing - hearing aides not present Skin Integrity: Pacemaker siite not visualized Home Living Home Living Lives With: Spouse (Lives with - unable to obtain further home set-up from patient at this time.) Home Adaptive Equipment: Cane (Unknown if patient has other DME - unable to state) Prior Level of Function Prior Function Level of [place]: Independent with ADLs and functional transfers, Needs assistance with homemaking Prior Functional Mobility: Independent with cane (RN reports that family states patient was fairly independent with use of cane at home. Patient unable to provide intel on PLOF) Vision Basic Assessment Vision - Basic Assessment Current Vision: Wears glasses all the time Activity Tolerance Activity Tolerance Endurance: Stage II General Assessments Activity Tolerance Endurance: Stage II Sensation Light Touch: No apparent deficits Coordination Movements are Fluid and Coordinated: Yes Postural Control Postural Control: Deficits on evaluation Static Sitting Balance Static Sitting-Balance Support: Feet supported Static Sitting-Level of Assistance: Close supervision Dynamic Sitting Balance Dynamic Sitting-Balance Support: Feet supported, Right upper extremity supported, Left upper extremity supported Dynamic Sitting-Balance: Forward lean, Lateral lean Dynamic Sitting Balance-Level of Assistance: Moderate assistance Static Standing Balance Static Standing-Balance Support: With device (RW) Static Standing-Level of Assistance: Maximum assistance Dynamic Standing Balance Dynamic Standing-Balance Support: With device (RW) Dynamic Standing Balance-Level of Assistance: Maximum assistance Functional Assessments Bed Mobility Bed Mobility: No (No bed mobilitiy observed this session - patient EOB upon arrival) Transfers Transfer: Yes Transfer 1 Transfer From 1: Bed Transfer Type 1: To Transfer to 1: Toilet Technique 1: Stand pivot, Sit to stand, Stand to sit Transfer Device 1: rolling walker Transfer Level of Assistance 1: Maximum assistance, x2 Trials/Comments 1: Patient completed sit to stand from EOB with Max (A) x1, 2nd person assist required to take steps to toilet with RW as well as max verbal cues for sequencingn. Then able to pivot from toilet to bedside chair without RW, Max (A) X2 as well. . Ambulation Ambulation: Yes Ambulation 1 Surface 1: Level tile Device 1: Rolling walker Assistance 1: Maximum assistance Quality of Gait 1: Fwd flexed posture throughout standing/attempted ambulation, fwd flexed BLE, max verbal cues for adequate sequencing. Comments/Distance (ft) 1: 7 ft Extremity Assessments RUE Assessment RUE Assessment: Exceptions to WFL (BUE observed grossly antigravity though not following commands well enough for accurate assessment) LUE Assessment LUE Assessment: Exceptions to WFL (BUE observed grossly antigravity though not following commands well enough for accurate assessment) RLE Assessment RLE Assessment: Exceptions to WFL (Not following commands well enough for MMT - grossly leg strength observed to be antigravity though patient with difficulty standing upright with flexed knees/hips in standing) LLE Assessment LLE Assessment: Exceptions to WFL (Not following commands well enough for MMT - grossly leg strength observed to be antigravity though patient with difficul (more content not included)... [facility] 11-19-2023 Note Occupational Therapy Occupational Therapy Evaluation Patient Name: Nat Moore : 1940 Today's Date: 11/19/2023 Time In: 941 Time Out: 1005 admitted to the hospitalist service from [place] due to recurrent episodes of syncope secondary to spontaneous prolonged sinus pauses. Episodes of sinus pauses/asystole requiring external pacing status post transvenous pacemaker on 11/16/2023 and permanent dual chamber pacemaker on 11/18/2023 Symptomatic 1st degree AV block bradycardia Bifascicular block noted on EKG Recurrent syncope Acute encephalopathy (CT is without contrast negative) General Subjective: cooperative with gentle encouragement Patient Active Problem List Diagnosis Syncope and collapse Sinus pause No past medical history on file. No past surgical history on file. Precautions Precautions Medical Precautions: chair alarm, fall risk, pacemaker (nsg to order new sling/no sling ON at time of eval, nursing applied waist belt restraint, poor ability to follow pacer precautions) Pain Pain Assessment Pain Score: (unable to answer when asked) Cognition Cognition Overall Cognitive Status: Impaired Arousal/Alertness: Generalized responses Orientation Level: Oriented to person, Disoriented to place, Disoriented to time, Disoriented to situation Following Commands: Follows one step commands with increased time, Follows one step commands with repetition (with mod VC/PC) Safety Judgment: Decreased awareness of need for safety Attention Span: Difficulty attending to directions Memory: Decreased short term memory, 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 helper 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, Decreased recall of precautions, Decreased recall of biographical information, Decreased recall of recent events Communication: (labored , dysarthic) General Assessment General Assessment Hearing: ([place], hearing aids not observed but has them per nsg) Hand Dominance: Right Home Living Home Living Type of Home: (patient unable to report consistantly) Prior Level of Function Prior Function Level of [place]: (reports indep and drives) Prior Functional Mobility: Independent with cane Static Sitting Balance Static Sitting Balance Static Sitting-Level of Assistance: Independent Dynamic Sitting Balance Dynamic Sitting Balance Dynamic Sitting Balance-Level of Assistance: Moderate assistance Static Standing Balance Static Standing Balance Static Standing-Level of Assistance: Maximum assistance ADL ADL LE Dressing Assistance: Total Toileting Assistance with Device: Total Transfers Transfers Transfer: (max A Supine to sit EOB, max A X2:: sit to stand , eight feet to toilet/sit/stand , pivot to chair and sit) Objective General Assessments Activity Tolerance Endurance: Stage II Vision - Basic Assessment Current Vision: No visual deficits Sensation Light Touch: No apparent deficits (BUE) Coordination Movements are Fluid and Coordinated: No Coordination and Movement Description: (decrease speed and accuracy) Hand Function Gross Grasp: Functional Extremity Assessments RUE Assessment RUE Assessment: (BUE observed antigravity to 3// MMT deferred) Outcome Assessments AM-PAC 6 Clicks Putting on and taking off regular lower body clothing?: Unable (Total Assist) Bathing(Including washing,rinsing,drying)?: Unable (Total Assist) Toileting, which includes using the toilet,bedpan,or urinal?: Unable (Total Assist) Putting on and taking off regular upper body clothing?: Unable (Total Assist) Taking care of personal grooming such as brushing teeth?: Unable (Total Assist) Eating meals?: A Little (Min Assist/Contact Guard/Supervision) Total Score OT [facility]: 8 Assessment/Plan OT Assessment OT Impairments: Decreased ADL status, Decreased cognition, Decreased endurance, Decreased functional mobility OT Assessment/HEAD LOADER Summary: (needs skilled OT due to weakness and fatigue) Prognosis: Good Evaluation/Treatment Tolerance: Patient limited by fatigue, Other (Comment) (cognition) Medical Staff Made Aware: Yes OT Education/Comments: (bed mob , adl transfers, pacer handout issued and discussed all with poor return demo) Plan Level of assist: 2 assist Treatment Interventions: ADL retraining, Functional transfer training, Endurance training, Patient/family training, Neuromuscular reeducation, Compensatory technique education OT Plan: Skilled OT OT Frequency: 5 times per week until discharge & PRN OT Discharge Recommendations: [facility] facility placement OT - Discharge Recommendations Placed: Yes OT Goals Multi-Disciplinary Problems (from Occupational Therapy) Active Problems Problem: Balance Start Date: 11/19/23 Goal Start Date Expected End Date End Date LTG - Patient will maintain stand balance to allow for safe mobility 11/19/23 12/17/23 -- Problem: Bathing Start Date: 11/19/23 Goal Start Date Expected End Date End Date LTG (more content not included)... [facility] 11-18-2023 Note Attestation signed by William Feldman MD at 11/18/2023 6:35 PM I reviewed the salient portions of the patient history. I have seen and examined the patient during rounds with the resident/fellow Robin. I repeated the ba components of the exam. Agree with the noted assessment and plan. William Feldman MD Pulmonary Progress Note Patient - Nat Moore Age - 83 y.o. - 1940 Date of Admission - 11/15/2023 2:42 PM HPI/Hospital Course Nat Moore is a an 83-year-old gentleman with PMH significant for type 2 diabetes mellitus, essential hypertension, hyperlipidemia, CKD stage IIIa, bilateral lower extremity edema on diuretic therapy, osteoarthritis, depression and mild cognitive impairment was initially admitted to the hospitalist service from [place] due to recurrent episodes of syncope secondary to spontaneous prolonged sinus pauses. Over the last 3 hours the patient had progressively increasing sinus pauses and a CODE BLUE was called. By the time ICU team went to evaluate the patient and the patient had regained consciousness and was noted to be in first-degree AV block with heart rate in the 70s. The patient however was nauseated and confused unable to answer most questions appropriately hence remaining HPI has been collected through chart review. Over the past few months he has been having bilateral lower extremity edema for which he was started on diuretic therapy with only minimal improvement. Per ED note he had an episode of diarrhea last night and also had some intractable nausea with the left lower abdominal pain as a part of his presenting complaints. During his stay in [place] ED he suddenly developed bradycardia prolonged sinus pause up to 18 seconds and became unresponsive. Code was activated and at the beginning of CPR he had regained his consciousness. He had another episode of sinus pause of about 12 seconds prior to transfer, however did not lose his consciousness at this time. On arrival to this facility blood pressure was 158/72 mmHg, pulse rate 78 bpm, regular, SpO2 100% on room air, respiratory rate 20/min, temperature 97.2. 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 CT of the abdomen with contrast done at [place] ED showed nonobstructive bowel gas pattern with a small amount of stool within the colon, numerous diverticula along the sigmoid and descending colon without diverticulitis, no free air or free fluid or abscess noted. CTA of the chest was done which showed no evidence of PE or dissection. Basic labs notable for WBC 6.8, hemoglobin 12.3 g/dL, platelet 165. Showed a pH of 7.33, VBG pCO2 52. BMP showed sodium 141 mEq percent, potassium 4.3 mEq per 3, chloride 105, bicarb 30, creatinine 1.53 mg/dL, glucose 146, calcium 8.3, magnesium 1.8, high sensitive troponin normal, albumin low lipase normal. Cardiology evaluated the patient on arrival. A stat transthoracic echocardiogram was done which showed normal LV function with a EF 60%, no wall motion abnormalities noted, no significant valvular abnormalities except for mild calcified aortic valve. Patient underwent permanent pacemaker on 11/18/2023. SUBJECTIVE Patient was seen and examined at bedside this morning. No acute overnight events. He was sedated with Precedex 1.4 mcg/kg/hr. He did not respond to commands. Patient underwent permanent dual pacemaker placement earlier today. OBJECTIVE Vitals height is 1.651 m (5' 5 ) and weight is 121 kg (267 lb 13.7 oz). His temporal temperature is 35.9 ???C (96.6 ???F). His blood pressure is 153/76 and his pulse is 60. His respiration is 8 (abnormal) and oxygen saturation is 100%. Temp: [35.9 ???C (96.6 ???F)-36.7 ???C (98.1 ???F)] 35.9 ???C (96.6 ???F) Heart Rate: [60] 60 Resp: [8-19] 8 BP: (114-190)/(65-101) 153/76 Physical Exam: General: Not responding to commands HEENT: Atraumatic, normocephalic, PERRLA Neck: Supple neck. Respiratory: Clear breathing sound bilaterally, no crackles, bilateral rales Heart: Regular rhythm, no murmur, no rub. Neurology: Can move all extremities, no focal deficit. Abdomen: Soft, not distended, not tender, Alford sign is negative. Extremities: No cyanosis, no edema. Skin: Warm and dry. Weight: Admission weight: 108 kg (238 lb) Wt Readings from Last 1 Encounters: 11/17/23 121 kg (267 lb 13.7 oz) Input/Output: Intake/Output Summary (Last 24 hours) at 11/18/2023 1249 Last data filed at 11/18/2023 1200 Gross per 24 hour Intake 1073.57 ml Output 1460 ml Net -386.43 ml Lab Results CBC: Results from last 7 days Lab Units 11/17/23 0603 11/16/23 0356 11/15/23 2125 WBC AUTO 10*3/uL 9.04 8.83 8.89 HEMOGLOBIN g/dL 12.7* 11.9* 12.4* HE (more content not included)... [facility] 11-18-2023 Note Attestation signed by Nora Rivera MD at 11/18/2023 3:43 PM GC: I saw this patient. I personally performed the critical/ba portions that determines the level of service. I was directly involved in the management and treatment plan of the patient. I reviewed resident Dr Amato's note and agree with the documentation Cardiology Progress Note REASON FOR CONSULT Reason for Consult: Sinus Pauses SUBJECTIVE HPI: Nat Moore is a 83 y.o. male with PMHx significant for HTN/HLD, CKD 3A, dementia, obesity, coronary calcifications who presented via air ambulance from [facility] due to recurrent episodes of syncope secondary to spontaneous prolonged sinus pause. He had initially presented for worsening midsternal chest pain lower back pain located in his mid chest aching in nature, 6 out of 10 on intensity scale, nonradiating associated with SOB. During his stay at [place] he developed bradycardia prolonged sinus pause up to 18 seconds and became unresponsive. A CODE BLUE was called however at the beginning of CPR he had regained consciousness. Prior to transfer he had another sinus pause of about 12 seconds however did not lose consciousness. Upon arrival, HR 78, BP 158/72, 100% on room air, stat EKG showed SR with first-degree AV block, and left anterior fascicular block. Cardiology consulted for bradycardia/sinus pauses Interval History: Patient seen and examined at bedside. In NAD. Resting comfortably. Still in restraints. S/p [employer] DC-PPM this morning, tolerated well. OBJECTIVE Objective Objective: Visit Vitals BP 153/76 Pulse 60 Temp 35.9 ???C (96.6 ???F) (Temporal) Resp 10 Physical Examination: Physical Exam Vitals reviewed. Constitutional: Appearance: Normal appearance. He is obese. He is ill-appearing. HENT: Head: Normocephalic and atraumatic. Eyes: General: No scleral icterus. Extraocular Movements: Extraocular movements intact. Cardiovascular: Rate and Rhythm: Normal rate and regular rhythm. Pulses: Normal pulses. Heart sounds: Normal heart sounds. No murmur heard. No friction rub. No gallop. Comments: Paced intermittent 60bpm Pulmonary: Effort: Pulmonary effort is normal. Breath sounds: Normal breath sounds. No stridor. No wheezing, rhonchi or rales. Abdominal: General: Bowel sounds are normal. Palpations: Abdomen is soft. There is no mass. Tenderness: There is no abdominal tenderness. There is no guarding. Hernia: No hernia is present. Musculoskeletal: Right lower leg: Edema present. Left lower leg: Edema present. Skin: Capillary Refill: Capillary refill takes less than 2 seconds. Neurological: Mental Status: He is disoriented. Psychiatric: Mood and Affect: Mood normal. Behavior: Behavior normal. Current Meds: Current Facility-Administered Medications: aspirin EC tablet 81 mg, 81 mg, oral, Daily, Kulwinder Figueroa MD, 81 mg at 11/18/23 1107 atorvastatin (Lipitor) tablet 40 mg, 40 mg, oral, Nightly, Kulwinder Figueroa MD, 40 mg at 11/17/232123 dexmedeTOMIDine (Precedex) 4 mcg/mL in sodium chloride 0.9 % 250 mL infusion, 0.2-1.5 mcg/kg/hr, intravenous, Continuous, Art Mckoy MD, Last Rate: 21.5 mL/hr at 11/18/23 1201, 0.7 mcg/kg/hr at 11/18/23 1201 docusate sodium (Colace) capsule 100 mg, 100 mg, oral, Daily, Nils Zimmer MD, 100 mg at 11/18/23 1106 FLUoxetine (PROzac) capsule 20 mg, 20 mg, oral, Daily, Nils Zimmer MD, 20 mg at 11/18/23 1106 heparin (porcine) injection 5,000 Units, 5,000 Units, subcutaneous, BID, Watson Alcantar MD, 5,000 Units at 11/18/23 1000 hydrALAZINE (Apresoline) injection 10 mg, 10 mg, intravenous, q6h PRN, Gurdeep Obrien MD, 10 mg at 11/18/23 0911 melatonin tablet 5 mg, 5 mg, oral, Nightly PRN, Nils Zimmer MD methocarbamol (Robaxin) tablet 500 mg, 500 mg, oral, Nightly, Nils Zimmer MD, 500 mg at 11/17/23 2124 nystatin (Mycostatin) 100,000 unit/gram powder, , Topical, BID, Giles Altman MD, Given at 11/18/23 1156 oxybutynin XL (Ditropan-XL) 24 hr tablet 5 mg, 5 mg, oral, Nightly, Nils Zmimer MD, 5 mg at 11/17/232123 Oxygen Therapy, , inhalation, Continuous, Art Mckoy MD, Given at 11/18/23 0900 pantoprazole (ProtoNix) injection 40 mg, 40 mg, intravenous, Daily, Watson Alcantar MD, 40 mg at 11/18/23 1107 QUEtiapine (SEROquel) tablet 25 mg, 25 mg, oral, Nightly, Gurdeep Obrien MD, 25 mg at 11/17/232123 sennosides-docusate sodium (Brittney-Colace) 8.6-50 mg per tablet 1 tablet, 1 tablet, oral, Daily PRN, Nils Zimmer MD Insert peripheral IV, , , Once AND Saline lock IV, , , Once AND sodium chloride flush 10 mL, 10 mL, intravenous, q8h PRN, Nils Lam (more content not included)... [facility] 11-18-2023 Note DUAL CHAMBER PACEMAK ER IMPLANT PROCEDURE NOTE DATE OF PROCEDURE: 11/18/23 PERFORMING PHYSICIAN: Dr. Sam Zelaya CONSENT: Patient LOCATION: EP Lab PROCEDURE PERFORMED: 1. Implantation of pacemaker ([employer]) 2. Ultrasound guided venous access INDICATIONS: 1. Sinus node dysfunction. 2. Sinus pause leading to syncope PROCEDURAL SEDATION: Versed and Fentanyl. Moderate sedation was administered by the sedation nurse under my supervision and noted in the CVL log. Intraprocedural face to face sedation time: 53min. Monitoring: Cardiac telemetry, Blood pressure, continuous pulse oxymetry. FLUOROSCOPY TIME: 2.6min/ 15mGray. EBL: 15cc SPECIMEN REMOVED: None PROCEDURAL DETAILS: Patient was placed in trendelenberg position and ultrasound was used to evaluate the patency of left axillary vein and for venous access. Left axillary venous access was obtained using modified seldinger technique using a 5 [place] micro-puncture needle on two occasions and 0.35 wires were placed. Local infiltration of 1% Lidocaine was performed, and an incision was created in the left upper chest. Dissection was then performed using cautery down to the fascial plane above the muscle. The belly of the pectoralis was identified and with gentle blunt dissection a small pocket was created for the device above the muscle. 6 [place] Safesheaths were placed over the wire. An active fixation [employer] pacing lead was then delivered through the 6Fsheath to the right ventricle. After confirmation of lead position on orthogonal views (WILKINSON and SINHALA) to confirm septal position, the screw was activated, and the lead was placed in the right ventricular mid cavity towards the septum. After confirmation of good sensing parameters, injury pattern and pacing thresholds, 10V pacing was done and no diaphragmatic stimulation was noted. It was then secured in the pocket using three 1-0 Silk sutures. Under fluoroscopy, the temporary lead was then removed. Then an active fixation [employer] lead was delivered through the 6Fsheath to the right atrial appendage. After confirmation of lead position on orthogonal views (WILKINSON and SINHALA), the screw was activated. Good sensing parameters, injury pattern and pacing thresholds, the lead was then tested using Lambert's maneuver. 10V pacing was done and no diaphragmatic stimulation was noted. It was then secured in the pocket using three 1-0 Silk sutures. Pocket hemostasis was secured, and it was then copiously and vigorously irrigated with antibiotic solution. The leads were attached to the generator and then wrapped under the device and the device was tacked to underlying muscle and placed in the pocket. The pocket was closed in layers: subcutaneous layer using 2-0 Vicryl; skin using 3-0 absorbable monofilament suture. Glue was applied and Tegaderm dressing was placed on top. Lead parameters were then rechecked through the device as noted below. The patient was returned to the short stay room for post procedural observation. No immediate procedural complications were noted. POST PROCEDURE EXAM: Patient was hemodynamically stable. COMPLICATIONS: None. IMPRESSION: 1. Successful dual chamber pacemaker with excellent pacing and sensing parameters. RECOMMENDATIONS: 1. Occlusive dressing to be removed after 2 weeks. 2. Do not wet the incision for 7 days. 3. No lifting heavy weights using arm on the same side x 3weeks 4. Do not lift elbow above the shoulder on the same side for 4-6 weeks. 5. No driving for 1 month. 6. F/u in device clinic 1 week from discharge or sooner for any concerns. Sam Zelaya MD Cardiac Electrophysiology [facility] 11-17-2023 Note Attestation signed by Nora Rivera MD at 11/17/2023 5:59 PM GC: I saw this patient. I personally performed the critical/ba portions that determines the level of service. I was directly involved in the management and treatment plan of the patient. I reviewed resident Dr. mAato's note and agree with the documentation Cardiology Progress Note REASON FOR CONSULT Reason for Consult: Sinus Pauses SUBJECTIVE HPI: Nat Moore is a 83 y.o. male with PMHx significant for HTN/HLD, CKD 3A, dementia, obesity, coronary calcifications who presented via air ambulance from [facility] due to recurrent episodes of syncope secondary to spontaneous prolonged sinus pause. He had initially presented for worsening midsternal chest pain lower back pain located in his mid chest aching in nature, 6 out of 10 on intensity scale, nonradiating associated with SOB. During his stay at [facility] he developed bradycardia prolonged sinus pause up to 18 seconds and became unresponsive. A CODE BLUE was called however at the beginning of CPR he had regained consciousness. Prior to transfer he had another sinus pause of about 12 seconds however did not lose consciousness. Upon arrival, HR 78, BP 158/72, 100% on room air, stat EKG showed SR with first-degree AV block, and left anterior fascicular block. Cardiology consulted for bradycardia/sinus pauses Interval History: Patient seen and examined at bedside. In NAD. S/p Temp Transvenous PPM placement. He is in restraints due to agitation on precedex. He is AAOx1. Delirious. OBJECTIVE Objective Objective: Visit Vitals BP (!) 149/93 Pulse 60 Temp 36.8 ???C (98.2 ???F) Resp 21 Physical Examination: Physical Exam Vitals reviewed. Constitutional: Appearance: Normal appearance. He is obese. He is ill-appearing. HENT: Head: Normocephalic and atraumatic. Eyes: General: No scleral icterus. Extraocular Movements: Extraocular movements intact. Cardiovascular: Rate and Rhythm: Normal rate and regular rhythm. Pulses: Normal pulses. Heart sounds: Normal heart sounds. No murmur heard. No friction rub. No gallop. Comments: Paced intermittent 60bpm Pulmonary: Effort: Pulmonary effort is normal. Breath sounds: Normal breath sounds. No stridor. No wheezing, rhonchi or rales. Abdominal: General: Bowel sounds are normal. Palpations: Abdomen is soft. There is no mass. Tenderness: There is no abdominal tenderness. There is no guarding. Hernia: No hernia is present. Musculoskeletal: Right lower leg: Edema present. Left lower leg: Edema present. Skin: Capillary Refill: Capillary refill takes less than 2 seconds. Neurological: Mental Status: He is disoriented. Psychiatric: Mood and Affect: Mood normal. Behavior: Behavior normal. Current Meds: Current Facility-Administered Medications: aspirin EC tablet 81 mg, 81 mg, oral, Daily, Kulwinder Figueroa MD, 81 mg at 11/17/23 1009 atorvastatin (Lipitor) tablet 40 mg, 40 mg, oral, Nightly, Kulwinder Figueroa MD dexmedeTOMIDine (Precedex) 4 mcg/mL in sodium chloride 0.9 % 250 mL infusion, 0.2-1.5 mcg/kg/hr, intravenous, Continuous, Art Mckoy MD, Last Rate: 33.8 mL/hr at 11/17/23 1200, 1.1 mcg/kg/hr at 11/17/23 1200 docusate sodium (Colace) capsule 100 mg, 100 mg, oral, Daily, Nils Zimmer MD, 100 mg at 11/17/23 1008 FLUoxetine (PROzac) capsule 20 mg, 20 mg, oral, Daily, Nils Zimmer MD, 20 mg at 11/16/23 1052 heparin (porcine) injection 5,000 Units, 5,000 Units, subcutaneous, BID, Watson Alcantar MD, 5,000 Units at 11/17/23 1009 hydrALAZINE (Apresoline) injection 10 mg, 10 mg, intravenous, q6h PRN, Gurdeep Obrien MD melatonin tablet 5 mg, 5 mg, oral, Nightly PRN, Nils Zimmer MD methocarbamol (Robaxin) tablet 500 mg, 500 mg, oral, Nightly, Nils Zimmer MD nystatin (Mycostatin) 100,000 unit/gram powder, , Topical, BID, Giles Altman MD, Given at 11/16/23 2154 oxybutynin XL (Ditropan-XL) 24 hr tablet 5 mg, 5 mg, oral, Nightly, Nils Zimmer MD Oxygen Therapy, , inhalation, Continuous, Art Mckoy MD, Given at 11/17/23 1000 pantoprazole (ProtoNix) injection 40 mg, 40 mg, intravenous, Daily, Watson Alcantar MD, 40 mg at 11/17/23 1009 sennosides-docusate sodium (Brittney-Colace) 8.6-50 mg per tablet 1 tablet, 1 tablet, oral, Daily PRN, Nils Zimmer MD Insert peripheral IV, , , Once AND Saline lock IV, , , Once AND sodium chloride flush 10 mL, 10 mL, intravenous, q8h PRN, Nils Zimmer MD sulfur hexafluoride microsphr (Lumason) injection 24.28 mg, 2 mL, intravenous, Once in imaging, Giles Altman MD tamsulosin (Flomax) 24 hr capsule 0.4 mg, 0.4 mg, oral, Daily, [place] (more content not included)... [facility] 11-17-2023 Note Attestation signed by William Feldman MD at 11/18/2023 5:36 PM I reviewed the salient portions of the patient history. I have seen and examined the patient during rounds with the resident/fellow Gurdeep. I repeated the ba components of the exam. Agree with the noted assessment and plan And add patient admitted with symptomatic bradycardia with multiple syncope was found to have sick sinus disease requiring pacemaker. Patient is scheduled to have his pacemaker in the morning meanwhile patient patient is on transvenous pacer until the permanent wound is replaced. William Feldman MD Pulmonary Progress Note Patient - Nat Moore Age - 83 y.o. - 1940 Date of Admission - 11/15/2023 2:42 PM HPI/Hospital Course Nat Moore is a an 83-year-old gentleman with PMH significant for type 2 diabetes mellitus, essential hypertension, hyperlipidemia, CKD stage IIIa, bilateral lower extremity edema on diuretic therapy, osteoarthritis, depression and mild cognitive impairment was initially admitted to the hospitalist service from [place] due to recurrent episodes of syncope secondary to spontaneous prolonged sinus pauses. Over the last 3 hours the patient had progressively increasing sinus pauses and a CODE BLUE was called. By the time ICU team went to evaluate the patient and the patient had regained consciousness and was noted to be in first-degree AV block with heart rate in the 70s. The patient however was nauseated and confused unable to answer most questions appropriately hence remaining HPI has been collected through chart review. Over the past few months he has been having bilateral lower extremity edema for which he was started on diuretic therapy with only minimal improvement. Per ED note he had an episode of diarrhea last night and also had some intractable nausea with the left lower abdominal pain as a part of his presenting complaints. During his stay in [place] ED he suddenly developed bradycardia prolonged sinus pause up to 18 seconds and became unresponsive. Code was activated and at the beginning of CPR he had regained his consciousness. He had another episode of sinus pause of about 12 seconds prior to transfer, however did not lose his consciousness at this time. On arrival to this facility blood pressure was 158/72 mmHg, pulse rate 78 bpm, regular, SpO2 100% on room air, respiratory rate 20/min, temperature 97.2. 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 CT of the abdomen with contrast done at [facility] ED showed nonobstructive bowel gas pattern with a small amount of stool within the colon, numerous diverticula along the sigmoid and descending colon without diverticulitis, no free air or free fluid or abscess noted. CTA of the chest was done which showed no evidence of PE or dissection. Basic labs notable for WBC 6.8, hemoglobin 12.3 g/dL, platelet 165. Showed a pH of 7.33, VBG pCO2 52. BMP showed sodium 141 mEq percent, potassium 4.3 mEq per 3, chloride 105, bicarb 30, creatinine 1.53 mg/dL, glucose 146, calcium 8.3, magnesium 1.8,, high sensitive troponin normal, albumin low lipase normal. Cardiology evaluated the patient on arrival. A stat transthoracic echocardiogram was done which showed normal LV function with a EF 60%, no wall motion abnormalities noted, no significant valvular abnormalities except for mild calcified aortic valve.. Today's event cardiology was reached out over the phone and they are currently planning on taking the patient to the [facility] tomorrow for possible transvenous pacemaker placement SUBJECTIVE Patient seen and examined at bedside. S/p transvenous PM placement yesterday. Plan for PPM tomorrow. Remains altered. Has mittens on. OBJECTIVE Vitals height is 1.651 m (5' 5 ) and weight is 121 kg (267 lb 13.7 oz). His temporal temperature is 36.3 ???C (97.3 ???F). His blood pressure is 170/90 and his pulse is 60. His respiration is 13 and oxygen saturation is 100%. Temp: [36.3 ???C (97.3 ???F)-36.8 ???C (98.2 ???F)] 36.3 ???C (97.3 ???F) Heart Rate: [60-67] 60 Resp: [8-21] 13 BP: (114-187)/(72-101) 170/90 Physical Exam: General: AAOx1 HEENT: Atraumatic, normocephalic, PERRLA Neck: Supple neck. Respiratory: Clear breathing sound bilaterally, no wheezing no crackles. Heart: Regular rhythm, no murmur, no rub. Neurology: Can move all extremities, no focal deficit. Abdomen: Soft, not distended, not tender, Alford sign is negative. Extremities: No cyanosis, no edema. Skin: Warm and dry. Weight: Admission weight: 108 kg (238 lb) Wt Readings from Last 1 Encounters: 11/17/23 121 kg (267 lb 13.7 oz) Input/Output: Intake/Output Summary (Last 24 hours) at 11/17/2023 (more content not included)... [facility] 11-16-2023 Note Cardiovascular Labor atory Report FINAL IMPRESSIONS: Successful, percutaneous placement of a temporary transvenous pacemaker via right internal jugular approach Moderate to severe disease of the mid left anterior descending coronary artery Severe disease of the first and second diagonal branches of the left anterior descending coronary artery Severe disease of the proximal portion of the posterior descending branch of the right coronary Moderate disease of the left circumflex coronary artery Normal global left ventricular systolic function by noninvasive imaging RECOMMENDATIONS: Close monitoring for development of postprocedural complications Pacemaker settings may be adjusted as needed to assure appropriate capture and an appropriate rate Given the prolonged, symptomatic sinus pauses, and evidence of conduction disease, a permanent pacemaker is indicated Aggressive cardiovascular risk factor modification Optimal medical therapy for coronary artery disease should include aspirin, moderate intensity statin therapy, beta-levi as tolerated +/- a RAAS inhibitor Given his age, comorbidities, and paucity of anginal symptoms, would recommend a conservative approach for his coronary artery disease at this juncture; should the patient experience significant angina, revascularization of the posterior descending branch and/or mid left anterior descending may be considered Further recommendations deferred to the inpatient services PROCEDURES: Ultrasound-guided access to the right internal jugular vein, placement of a temporary transvenous pacemaker, ultrasound-guided access to the left radial artery, bilateral selective coronary angiography METHODS: After risks, benefits, and alternatives were explained, written informed consent was obtained. The patient was prepped and draped in usual sterile fashion over the right neck and left radial regions. Using 1% lidocaine solution, local infiltration anesthesia was achieved. Using a modified Seldinger technique, a micropuncture kit, and under ultrasound guidance, access to the right internal jugular vein was obtained. Difficulty advancing the venous sheath was encountered; therefore an Amplatz Super Stiff wire was used through the dilator. A transvenous pacemaker sheath was inserted without difficulty. The balloontipped transvenous pacemaker was advanced through the sheath, and advanced into the right ventricle. When opposed to the interventricular septum, the balloon was deflated. Capture was assured; the pacer was set at 70 bpm with a threshold of 5 mA. The sheath was sutured in place and a Tegaderm used to secure the pacemaker wire. Local infiltration anesthesia was achieved of the left wrist. Using a micropuncture kit, and under ultrasound-guided access of the left radial artery was obtained. A 6 [place] glide sheath was inserted without difficulty. Difficulty advancing the Ramachandran wire was encountered. Therefore this was removed and angiography via the JR catheter revealed significant tortuosity. A soft angled Glidewire was used to traverse the tortuosity Bilateral selective coronary angiography was performed using JL4 and JR4 catheters. After reviewing the images, it was elected to conclude the procedure. All catheters were removed. The radial sheath was removed with application of a TR band per protocol to achieve optimal hemostasis. Overall the patient tolerated the procedure well. There were no overt complications. He was to be transferred to the holding area in stable condition. FINDINGS: Hemodynamics: AO 138/85 [98] TRANSVENOUS PACEMAKER: This appears to be positioned against the interventricular septum. Capture was assured. LEFT VENTRICULOGRAPHY: This was not performed; ejection fraction is normal by echocardiography. CORONARY ARTERIES: Left main coronary artery: This arises from the left coronary cusp and bifurcates into the left anterior descending and left circumflex coronary arteries. It is free of significant stenoses. Left anterior descending coronary artery: This shows significant calcific plaque throughout particular in the proximal portion. There is a proximal 40% stenosis. The midportion shows a 60 to 70% stenosis adjacent to a small to moderate-sized first diagonal that shows an ostial to proximal 80% stenosis. A second diagonal branch shows an ostial 60 to 70% stenosis. Left circumflex coronary artery: This gives rise to a large branching first obtuse marginal. The inferior branch shows a 50% stenosis. The superior branch shows luminal irregularities and a mid vessel 30% stenosis. The circumflex continues as a relatively small caliber AV groove branch with diffuse disease and caliber reduction. Right coronary artery: This arises from the right coronary cusp and is a dominant vessel giving rise to the posterior descending and posterolateral branches. It shows calcific plaque throughout with a mid v (more content not included)... [facility] 11-16-2023 Note Attestation signed by Salena Alcaraz MD at 11/16/2023 4:24 PM I personally saw and examined the patient on the same date of service as resident/fellow Dr Figueroa. I discussed the findings and therapeutic plan with the resident/fellow Dr Figueroa. I agree with the documentation, except for any edits/updates below. Teaching Physician's Revisions: None Patient had many episodes of asystole during the night required external pacing, he was symptomatic with those episodes. That was discussed with Dr. Sanchez and the patient is going to have a temporary pacemaker placed today. At the same time he will undergo coronary angiogram to evaluate for underlying coronary artery disease. Hopefully permanent pacemaker implantation tomorrow Salena Alcaraz MD, [facility] Cardiology Progress Note Subjective Subjective: Patient had a sinus pause of 7sec, transferred to the ICU for external pacing. Patient was seen and examined today. He denies any dizziness or chest pain. Objective Objective: Patient Vitals for the past 24 hrs: BP Temp Temp src Pulse Resp SpO2 Height Weight 11/16/23 1000 147/63 -- -- 66 12 100 % -- -- 11/16/23 0900 (!) 155/91 -- -- 75 16 99 % -- -- 11/16/23 0800 148/65 36.6 ???C (97.9 ???F) -- 92 23 95 % -- -- 11/16/23 0742 -- -- -- -- -- 96 % -- -- 11/16/23 0700 152/65 -- -- 84 15 97 % -- -- 11/16/23 0600 (!) 143/98 -- -- 65 16 99 % -- 123 kg (270 lb 4.5 oz) 11/16/23 0500 126/53 -- -- 61 16 95 % -- -- 11/16/23 0400 153/75 -- -- 89 15 99 % -- -- 11/16/23 0300 149/55 -- -- 77 13 93 % -- -- 11/16/23 0200 (!) 105/37 -- -- 59 17 97 % -- -- 11/16/23 0100 129/51 -- -- 89 13 91 % -- -- 11/16/23 0000 141/69 36.5 ???C (97.7 ???F) Temporal 65 15 -- -- -- 11/15/23 2339 143/57 -- -- 69 15 96 % -- -- 11/15/23 2308 139/51 36.5 ???C (97.7 ???F) Temporal 74 17 98 % -- -- 11/15/232244 (!) 130/99 -- -- 78 15 96 % -- -- 11/15/232229 -- -- -- 68 12 100 % -- -- 11/15/232214 -- -- -- 72 12 97 % -- -- 11/15/232199 -- -- -- 79 15 100 % -- -- 11/15/232144 -- -- -- 73 12 97 % -- -- 11/15/232129 -- -- -- 73 18 99 % -- -- 11/15/232114 -- -- -- 73 13 99 % -- -- 11/15/232014 165/78 -- -- 81 17 99 % -- -- 11/15/231999 154/69 -- -- 85 15 98 % -- -- 11/15/231944 154/66 -- -- 82 13 100 % -- -- 11/15/23 193 157/77 36.9 ???C (98.4 ???F) Temporal 75 16 100 % -- -- 11/15/231929 -- -- -- 73 14 100 % -- -- 11/15/231914 -- -- -- 77 12 99 % -- -- 11/15/231899 -- -- -- 72 17 100 % -- -- 11/15/23 1500 158/72 36.2 ???C (97.2 ???F) Temporal 78 22 100 % 1.651 m (5' 5 ) 108 kg (238 lb) Physical Examination: GENERAL: AOx3, in no acute distress. HEAD: Atraumatic, normocephalic. EYES: JOE, EOMI. NECK: No JVD present. CARDIAC: RRR. No murmur, rubs, or gallops. RESPIRATORY: CTAB, no increased effort of breathing. ABDOMEN: Soft, nontender, nondistended. EXTREMITIES: No lower extremity edema, peripheral pulses are 2+ bilaterally. Relevant Lab Results Encounter Date: 11/15/23 ECG 12 lead Result Value Ventricular Rate 85 Atrial Rate 85 NC Interval 266 QRS DURATION 104 QT Interval 390 QTC CALCULATION(BAZETT) 464 P [place] 71 R-[place] -60 T Wave [place] 49 Impression Sinus rhythm with 1st degree A-V block Left axis deviation Inferior infarct (cited on or before 21-JUL-2012) Cannot rule out Anterior infarct (cited on or before 15-NOV-2023) Abnormal ECG When compared with ECG of 15-NOV-2023 19:56, (unconfirmed) No significant change was found Lab Results Component Value Date TROPONINI 0.01 11/15/2023 Transthoracic echo (TTE) complete Result Date: 11/15/2023 1 1 [facility] Heart [facility] [address] [place] [address] [phone] (fax) Echocardiogram-[facility] Name: NAT MOORE Study Date: 11/15/2023 05:06 PM B/P: 158 mmHg/72 mmHg HR: Date of : 1940 Location: [facility] Height: 65 in. Age: 83 year(s) Patient Room: 3225 Weight: 238 lb. Gender: Male Patient Status: InPt BSA: 2.13 m2 Indication: Dizziness, Bradycardia, leg edema Examination: Echocardiogram (Complete), Lumason Contrast Image Quality: Technically Difficult study Patient Consent: Procedure explained to patient Exam Details Contrast: I.V. dose of Lumason Conclusions Left Ventricle: The left ventricle is normal size. Global left ventricular systolic function is normal. The EF is 65 % visually. Left ventricular wall thickness is normal. No regional wall motion abnormality. Normal diastolic function. Right Ventricle: The right ventricle appears normal in size. Right ventricular systolic function appears normal. Unable to assess right sided pressures due to lack of measurable tricuspid regurgitation. Left Atrium: The left atrium is normal in sizeNo significant v (more content not included)... [facility] 11-15-2023 Note CODE BLUE was called on this patient after he sustained a 10 the second sinus pause and then a 7-second sinus pause. Patient with brief LOC. Patient with multiple episodes of nausea and vomiting. MICU fellow at bedside who states he will transfer patient to MICU for transcutaneous pacing. [facility] 11-15-2023 Note Hospital Medicine History and Physical 11/15/2023 5:58 PM THE HOSPITALIST TEAM PREFERS TO USE [employer] CH[employer] FOR COMMUNICATION 7AM-7PM. IF I DO NOT RESPOND WITHIN 15 MINUTES, PLEASE PAGE ME/CALL THROUGH THE PAINTER SHIPYARD. FROM 7PM-7AM, PLEASE PAGE [phone](COVR) Chief Complaint No chief complaint on file. History of Present Illness Nat Moore is an 83 y.o. severely obese male with a medical history significant for type 2 diabetes mellitus, essential hypertension, hyperlipidemia, CKD stage IIIa, bilateral lower extremity edema on diuretic therapy, osteoarthritis, coronary calcifications, depression, mild cognitive impairment, who was transferred via air ambulance from the [facility] due to recurrent episodes of syncope secondary to spontaneous prolonged sinus pause. Patient states that he presented to the [place] ED due to worsening midsternal chest pain and lower back pain. His pain is located over the mid chest, aching in nature, intensity 6/10, nonradiating, associated with some shortness of breath. He also felt a worsening of his chronic back pain. Over the past few months he has been having bilateral lower extremity edema for which he was started on diuretic therapy with only minimal improvement. Per ED note he had an episode of diarrhea last night and also had some intractable nausea with the left lower abdominal pain as a part of his presenting complaints. During his stay in [place] ED he suddenly developed bradycardia prolonged sinus pause up to 18 seconds and became unresponsive. Code was activated and at the beginning of CPR he had regained his consciousness. He had another episode of sinus pause of about 12 seconds prior to transfer, however did not lose his consciousness at this time. On arrival here his blood pressure was 158/72 mmHg, pulse rate 78 bpm, regular, SpO2 100% on room air, respiratory rate 20/min, temperature 97.2. 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 CT of the abdomen with contrast done at [facility] ED showed nonobstructive bowel gas pattern with a small amount of stool within the colon, numerous diverticula along the sigmoid and descending colon without diverticulitis, no free air or free fluid or abscess noted. CTA of the chest was done which showed no evidence of PE or dissection. Basic labs notable for WBC 6.8, hemoglobin 12.3 g/dL, platelet 165. Showed a pH of 7.33, VBG pCO2 52. BMP showed sodium 141 mEq percent, potassium 4.3 mEq per 3, chloride 105, bicarb 30, creatinine 1.53 mg/dL, glucose 146, calcium 8.3, magnesium 1.8,, high sensitive troponin normal, albumin low lipase normal. Cardiology evaluated the patient on arrival. A stat transthoracic echocardiogram was done which showed normal LV function with a EF 60%, no wall motion abnormalities noted, no significant valvular abnormalities except for mild calcified aortic valve. Review of System and Physical Exam Temp: [36.2 ???C (97.2 ???F)] 36.2 ???C (97.2 ???F) Heart Rate: [78] 78 Resp: [22] 22 BP: (158)/(72) 158/72 Physical Exam: Constitutional: General: He is obese male lying supine in the bed, Eyes: bilateral pupils equally reacting to light and accommodation, extraocular movements intact, bilateral conjunctiva clear, no pallor, HENT: Head: Normocephalic and atraumatic. Right Ear: External ear normal. Left Ear: External ear normal. Nose: Nose normal. Mouth/Throat: Dentition regular Mouth: Mucous membranes are moist. Neck: No tenderness on C spine, thyroid normal, trachea midline, no carotid bruit Cardiovascular: Rate and Rhythm: Normal rate and regular rhythm. Pulses: Normal pulses. JVD not visible, Heart sounds: S1S2 heard, Normal heart sounds. 2+ edema noted in both legs Peripheral pulses: 2+ bilateral radial, 2+ dorsalis pedis/posterior tibial, carotid pulse volume good bilaterally Pulmonary: Effort: Pulmonary effort is normal. No respiratory distress. Breath sounds: Normal breath sounds. Abdomen: Soft, no tenderness, bowel sounds active, no masses palpable, Musculoskeletal: General: Normal range of motion. Cervical back: Normal range of motion Lymphadenopathy: Cervical: No cervical adenopathy. Neurological: Mental Status: He is alert. Clinically no focal deficits, no change in sensation Psychiatric: Mood and Affect: Mood normal. Behavior: Behavior normal. Thought Content: Thought content normal. Review of Systems: Constitutional: no fever, no night sweats, no significant weight changes, no chills, fatigue Eyes: No change in vision, photophobia, no recent eye infection ENMT- Ears: no difficulty hearing, no ear pain, no tinnitus Nose: no frequent nosebleeds, no nose/sinus problems, no sinus problems, no nasal discharge, no change in taste, no change in voice Mouth/Throat: no sore throat, no bleeding gums, no snoring, no dry mouth, no mouth ulcers, no oral abnorma (more content not included)... [facility] 11-11-2023 Hospital Discharge instructions Patient Education 11/11/2023 [...] your health care provider. General instructions Take brwh-kfw-vzeworc and prescription medicines only as told by [...] provider. Document Revised: 11/27/2020 Document Reviewed: 11/27/2020 [employer] Patient Education 2022 [employer]. Follow Up Care 10/14/2023 13:29:56 With:RAUL Ingram APRN, Marianela Rodriguez, RIANNA, URL Address: When: Unknown Comments:f/up in 3 mos [facility] 11-11-2023 Note Patient Education Obstetrics and Gynecology [...] health care provider. General instructions ? Take xcfm-wyx-birxwiq and prescription medicines only as told by [...] your health care (more content not included)... [facility] 09-16-2022 Hospital Discharge instructions Patient Education 09/16/2022 [...] your health care provider. General instructions Take konv-klx-nbqffrg and prescription medicines only as told by [...] provider. Document Revised: 11/27/2020 Document Reviewed: 11/27/2020 [employer] Patient Education 2022 [employer]. Follow Up Care 04/26/2022 11:39:09 With:ERIK MENG, Umer Schultz, URL Address: [facility] [address], [place] [address]- When: Unknown [facility] 05-23-2022 Note CONSULTATION CONSULTATION DATE: 05/23/2022 [...] indicated. Patient agrees with this plan. [facility] 04-26-2022 Hospital Discharge instructions Patient Education 04/26/2022 [...] urethra. Follow these instructions at home: Take vriy-vlp-hjjibae and prescription medicines only as told by [...] 03/10/2006 Document Revised: 02/02/2019 Document Reviewed: 04/14/2017 [employer] Patient Education [employer] Follow Up Care 04/08/2022 14:01:00 With:ERIK MENG, Umer Schultz, URL Address: [address] [place] [address]- When: Unknown [facility] 04-08-2022 Hospital Discharge instructions Patient Education [...] urethra. Follow these instructions at home: Take mxpw-sqc-rvbsceo and prescription medicines only as told by [...] [place] Do not drive yourself to the [facility]. Summary Benign prostatic hyperplasia (BPH) is [...] 03/10/2006 Document Revised: 02/02/2019 Document Reviewed: 04/14/2017 [employer] Patient Education 2020 [employer]. Follow Up Care 12/03/2021 14:11:02 With:ERIK MENG, Umer Schultz, URL Address: [facility] [address], [place] [address]- When: Unknown [facility] 01-22-2022 Note CONSULTATION CONSULTATION DATE: 01/22/2022 [...] proceed. CC: Juan Pablo Alaniz M.D. 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 He does not use heat or ice to his back at this time. Current medications include gabapentin 200 mg t.i.d., nabumetone 750 mg b.i.d., Warsaw 5/325 t.i.d. Patient does use a walking [...] L3 and L4, L5. A refill for Warsaw 5/325 t.i.d. will be sent today. He will receive an oral U-Tox in the office today. Supportive measures such as stretching, a menthol heat rub and heat application to his back were discussed. I did recommend a Boost supplement daily. Patient will be followed up in the office post procedure and agrees to move forward. [facility] 12-03-2021 Hospital Discharge instructions Patient Education 12/03/2021 [...] urethra. Follow these instructions at home: Take ylbi-kib-admlgzj and prescription medicines only as told by [...] 03/10/2006 Document Revised: 02/02/2019 Document Reviewed: 04/14/2017 [employer] Patient Education [employer] Follow Up Care 09/03/2021 14:17:23 With:ERIK MENG, Umer Schultz, URL Address: [facility] [address] [place] [address]- [phone] When:04/04/2022 Comments:PVR [facility] 10-02-2021 Note CONSULTATION PROCEDURE DATE: 10/02/2021 [...] he reports mitigation of his pain symptomatology. [facility] Signed and Approved by: DR VINH HOLCOMB . 10/09/2021 09:28:00 [facility] 10-02-2021 Note CONSULTATION CONSULTATION DATE: 10/02/2021 CHIEF [...] three times a day. We will re-prescribe Warsaw 5/325 t.i.d. which he had received from [...] to proceed. CC: Juan Pablo Alaniz M.D. [facility] Signed and Approved by: DR VINH HOLCOMB . 10/09/2021 09:28:00 [facility] 09-03-2021 Hospital Discharge instructions Patient Education [...] 03/10/2006 Document Revised: 11/27/2018 Document Reviewed: 02/07/2017 [employer] Patient Education 2020 [employer]. 09/03/2021 13:53:06 Benign Prostatic Hyperplasia Benign Prostatic [...] urethra. Follow these instructions at home: Take crnw-nio-mtjcgad and prescription medicines only as told by [...] 03/10/2006 Document Revised: 02/02/2019 Document Reviewed: 04/14/2017 [employer] Patient Education 2020 [employer]. Follow Up Care 07/03/2021 15:21:16 With:ERIK MENG, Umer Schultz, EDDIEL Address: [facility] [address] , [place] [address]- [phone] When:Within 3 Month(s) Comments:f/u in 3 months with PVR scan [facility] Evaluation + Plan note Future Appointments Appointment Date:12/03/2021 01:15:00 PM Scheduled Provider:Umer VALENCIA MD Location:[facility] Appointment Type:URO Office Visit [facility] [employer] Evaluation + Plan note Future Appointments Appointment Date:04/08/2022 12:45:00 PM Scheduled Provider:Umer VALENCIA MD Location:[facility] Appointment Type:URO Office Visit [facility] Evaluation + Plan note Future Appointments Appointment Date:04/26/2022 10:15:00 AM Scheduled Provider:Umer VALENCIA MD Location:[facility] Appointment Type:URO Office Visit [facility] Evaluation + Plan note Future Appointments Appointment Date:07/22/2022 08:45:00 AM Scheduled Provider:Umer VALENCIA MD Location:[facility] Appointment Type:URO Office Visit [facility] [employer] Evaluation + Plan note Future Appointments Appointment Date:12/20/2022 08:30:00 AM Scheduled Provider:Umer VALENCIA MD Location:[facility] Appointment Type:URO Office Visit [facility] Evaluation + Plan note Future Appointments Appointment Date:11/11/2023 01:00:00 PM Scheduled Provider:RAUL Ingram APRN Marianela X Location:[facility] Appointment Type:URO Office Visit [facility] Evaluation + Plan note Future Appointments Appointment Date:02/10/2024 12:30:00 PM Scheduled Provider:RAUL Ingram APRN, Marianela X Location:[facility] Appointment Type:URO Office Visit [facility] Hospital course Narrative No data available for this section [facility] Hospital Discharge instructions No data available for this section [facility] Progress note No data available for this section [facility] Summary Purpose Family History No Family [...] and content) DATE CREATED AUTHOR [facility]14/2020 [facility] DATE CREATED AUTHOR AUTHOR'S ORGANIZ ATION 08/02/2022 [facility] DATE CREATED AUTHOR AUTHOR'S ORGANIZ ATION 11/13/2023 [facility] DATE CREATED AUTHOR AUTHOR'S ORGANIZ ATION 11/15/2023 [facility] DATE CREATED AUTHOR AUTHOR'S ORGANIZ ATION 11/17/2023 [facility] DATE CREATED AUTHOR AUTHOR'S ORGANIZ ATION 11/24/2023 [facility] DATE CREATED AUTHOR AUTHOR'S ORGANIZ ATION 12/07/2023 [facility] pital Care Team (unrecognized sect ion and content) Personnel Name: JUAN PABLO ALANIZ MD Address: [address] [place] [address] Personnel Name: JUAN PABLO ALANIZ MD Address: [address] [place] [address] Personnel Name: JUAN PABLO ALANIZ MD Address: Address: [address] [place] [address] Personnel Name: JUAN PABLO ALANIZ MD Address: Address: [address] [place] [address] Personnel Name: JUAN PABLO ALANIZ MD Address: Address: [address] [place] [address] Personnel Name: JUAN PABLO ALANIZ MD Address: Address: [address] [place] [address] Personnel Name: JUAN PABLO ALANIZ MD Address: Address: [address] [place] [address] Personnel Name: JUAN PABLO ALANIZ MD Address: Address: [address] [place] [address] FOR RECORDS PERTAINING TO PATIENTS WHO ARE [...] BE BASED ON THE PRIMARY CLINICAL RECORDS. [facility] [email or web address] [facility]. provides no warranty or guarantee of the accuracy or completeness of information in this document.
--- NOTE | 2023-12-26 22:29 | ED.FALL1 ---
HPI HPI - Fall General Chief Complaint: Fall Stated Complaint: FALL Time Seen by Provider: 12/26/23 22:25 Source: patient Mode of arrival: ambulance Limitations: no limitations History of Present Illness HPI Narrative: patient presents after head injury. Believes he lost his balance and fell backwards. Struck the back of his head. Believes he may have possibly loss consciousness. Denies injury to his back or hip. no complaint of injury to his upper or lower extremities. No dizziness or nausea. Transferred to the ER via Squad Related Data Home Medications ?Medication ?Instructions ?Recorded ?Confirmed allopurinol 300 mg tablet 300 mg PO DAILY 07/26/23 11/15/23 docusate sodium 100 mg capsule 100 mg PO DAILY PRN constipation 07/26/23 11/15/23 donepezil 10 mg tablet 10 mg PO BEDTIME 07/26/23 11/15/23 fluoxetine 20 mg capsule 20 mg PO DAILY 07/26/23 11/15/23 gabapentin 100 mg capsule 200 mg PO TID 07/26/23 11/15/23 glipizide 10 mg tablet 10 mg PO BID 07/26/23 11/15/23 meloxicam 15 mg tablet 15 mg PO BEDTIME 07/26/23 11/15/23 methocarbamol 500 mg tablet 500 mg PO BEDTIME 07/26/23 11/15/23 omeprazole 40 mg capsule,delayed 40 mg PO DAILY 07/26/23 11/15/23 release solifenacin 10 mg tablet 10 mg PO DAILY 07/26/23 11/15/23 tamsulosin 0.4 mg capsule 0.4 mg PO DAILY 07/26/23 11/15/23 furosemide 20 mg tablet 20 mg PO DAILY 11/15/23 11/15/23 furosemide 40 mg tablet 40 mg PO DAILY 11/15/23 11/15/23 potassium chloride 20 mEq 20 meq PO DAILY 11/15/23 11/15/23 tablet,extended release(part/cryst) trospium 60 mg capsule,extended 60 mg PO DAILY 11/15/23 11/15/23 release 24 hr Previous Rx's ?Medication ?Instructions ?Recorded candesartan 32 mg tablet (Atacand) 32 mg PO DAILY #30 tabs 10/07/23 Allergies Allergy/AdvReac Type Severity Reaction Status Date / Time Penicillins Allergy Intermediate Unknown Verified 11/15/23 09:03 Opioid HPI Opioid Management Most Recent Pain and Opioid Data: Last Pain Scale 0 10/07/23 08:14 Last ORT Total Score 0 10/06/23 17:50 Last ORT Risk Category Low Risk 10/06/23 17:50 Ur Phencyclidine Scrn Negative (NEGATIVE) 07/26/23 08:10 Review of Systems ROS Status of ROS 10 or more systems reviewed and unremarkable except as noted in history and below [facility] Medical History (Updated 12/27/23 @ 00:19 by Ryan Prasad MD) Vomiting ?R11.10 - Vomiting, unspecified (ICD-10) Acute metabolic encephalopathy ?G93.41 - Metabolic encephalopathy (ICD-10) 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 (ICD-10) Low back pain ?M54.50 - Low back pain, unspecified (ICD-10) Dementia ?F03.90 - Unspecified dementia, unspecified severity, without behavioral disturbance, psychotic disturbance, mood disturbance, and anxiety (ICD-10) Depression ?F32.A - Depression, unspecified (ICD-10) Hyperuricemia ?E79.0 - Hyperuricemia without signs of inflammatory arthritis and tophaceous disease (ICD-10) HLD (hyperlipidemia) ?E78.5 - Hyperlipidemia, unspecified (ICD-10) Type 2 diabetes mellitus ?E11.9 - Type 2 diabetes mellitus without complications (ICD-10) HTN (hypertension) ?I10 - Essential (primary) hypertension (ICD-10) Social History (Updated 07/26/23 @ 14:57 by Shaikh Maritza MD) Within the past year, how often did you have a drink containing alcohol: never Within the past year, how many standard drinks containing alcohol did you have on a typical day: 1 or 2 Within the past year, how often did you have six or more drinks on one occasion: never Total score: 0 Score interpretation: A score less than 4 is consistent with normal alcohol consumption. Smoking status: Never smoker Non-prescribed substance use: denies use Highest level of school completed/degree received: high school graduate Exam Constitutional Vital Signs, click to edit/add: Last Vital Signs Temp 97.4 F L 12/26/23 22:00 Pulse 73 12/26/23 23:32 Resp 16 12/26/23 23:32 BP 145/72 H 12/26/23 23:32 Pulse Ox 98 12/26/23 23:32 O2 Del Method Room Air 12/26/23 23:32 Common normals: no apparent distress, average body habitus, healthy appearing, alert and well nourished [facility] Head images: 1. mild occipital contusion Eye Common normals: EOMs intact bilaterally and conjunctivae normal Respiratory Common normals: normal respiratory effort, no retractions, no use of accessory muscles and clear to auscultation bilaterally Cardio Common normals: regular rate, regular rhythm, S1 normal heart sound and S2 normal heart sound GI Common normals: Normal to inspection, nondistended, normoactive bowel sounds present, soft to palpation and non-tender Back & Pelvis Common normals: thoracic and lumbar spine normal to inspection and no thoracic nor lumbar tenderness Extremity Common normals: normal to inspection Other: hips nontender Neuro Common normals: CN's II-XII intact bilaterally, moves all extremities and no focal motor deficits Psych Appearance: grossly normal Course Vital Signs Vital signs: Vital Signs Temperature 97.4 F L 12/26/23 22:00 Pulse Rate 75 12/26/23 22:00 Respiratory Rate 18 12/26/23 22:00 Blood Pressure 148/75 H 12/26/23 22:00 Pulse Oximetry 99 12/26/23 22:00 Oxygen Delivery Method Room Air 12/26/23 22:00 Temperature 97.4 F L 12/26/23 22:00 Pulse Rate 73 12/26/23 23:32 Respiratory Rate 16 12/26/23 23:32 Blood Pressure 145/72 H 12/26/23 23:32 Pulse Oximetry 98 12/26/23 23:32 Oxygen Delivery Method Room Air 12/26/23 23:32 MDM - Fall MDM Narrative Medical decision making narrative: patient loss his balance and fell back striking his head. ? LOC. No neuro deficits. CT C-spine and brain without acute findings. Patient discharged home Discharge Plan Discharge Chief Complaint: Fall Clinical Impression: Concussion with loss of consciousness Patient Disposition: Home, Self-Care Prescriptions / Home Meds: No Action allopurinol 300 mg tablet 300 mg PO DAILY docusate sodium 100 mg capsule 100 mg PO DAILY PRN (Reason: constipation) donepezil 10 mg tablet 10 mg PO BEDTIME fluoxetine 20 mg capsule 20 mg PO DAILY gabapentin 100 mg capsule 200 mg PO TID glipizide 10 mg tablet 10 mg PO BID meloxicam 15 mg tablet 15 mg PO BEDTIME methocarbamol 500 mg tablet 500 mg PO BEDTIME omeprazole 40 mg capsule,delayed release(DR/EC) 40 mg PO DAILY solifenacin 10 mg tablet 10 mg PO DAILY tamsulosin 0.4 mg capsule 0.4 mg PO DAILY furosemide 20 mg tablet 20 mg PO DAILY furosemide 40 mg tablet 40 mg PO DAILY potassium chloride 20 mEq tablet,ER particles/crystals 20 meq PO DAILY trospium 60 mg capsule,extended release 24hr 60 mg PO DAILY candesartan [Atacand] 32 mg tablet 32 mg PO DAILY Qty: 30 11RF Print Language: Slovenian Instructions: Concussion (ED) Referrals: JASON CRUZ [Primary Care Provider] - 1 week
--- NOTE | 2023-12-26 22:32 | CT_ITS ---
The [address] [address] Patient Name: NAT MOORE MRN: [id number] date: 1940 Sex: M Assigned Patient Location: ER Current Patient Location: ER Accession/Order Number: [id number] Exam Date: 12/26/2023 23:16 Report Date: 12/26/2023 23:44 At the request of: LC VALLE Procedure: CT head/brain wo con EXAM: CT head/brain wo con HISTORY: injury COMPARISON: CT brain 10/06/2023. TECHNIQUE: Axial CT scans through the head were obtained without IV contrast administration. Dose reduction techniques were achieved by using: automated exposure control and/or adjustment of mA and /or kV according to patient size and/or use of iterative reconstruction technique. FINDINGS: There is no evidence of acute intracranial hemorrhage or abnormal extra-axial fluid collection. No mass effect or midline shift is seen. There is no evidence of large acute territorial infarction. There is no hydrocephalus. There is moderate cerebral atrophy. Moderate decreased attenuation of the supratentorial white matter, likely represents chronic microvascular ischemia. To the limit of CT, the posterior fossa appears unremarkable. There are atherosclerotic calcifications of anterior and posterior circulations. No definite acute fracture is identified. Soft tissues are unremarkable. The visualized orbits show no abnormality. The visualized paranasal sinuses show no air-fluid level. Mastoid air cells are clear. CT/CT head/brain wo con IMPRESSION: No CT evidence of acute intracranial abnormality. Stable chronic changes, as described. Electronically authenticated by: RICHAR FERREIRA Date: 12/26/2023 23:44
--- NOTE | 2023-12-26 22:32 | CT_ITS ---
[address] [address] Patient Name: NAT MOORE MRN: [id number] date: 1940 Sex: M Assigned Patient Location: ER Current Patient Location: Accession/Order Number: [id number] Exam Date: 12/26/2023 23:16 Report Date: 12/27/2023 00:06 At the request of: LC VALLE Procedure: CT cervical spine wo con EXAMINATION: CT Cervical Spine without IV Contrast TECHNIQUE: Standard protocol axial Cervical spine CT was performed without intravenous contrast. Multiplanar reformatted images were created according to the routine protocol. QPP DOCUMENTATION: At least one of the following dose reduction techniques was utilized: Iterative reconstruction, and/or Automatic Exposure Control, and/or mA/kV adjustment based on body size. INDICATION: . fall. head injury COMPARISON: 10/06/2023 FINDINGS: Segmentation: There are 7 cervical vertebrae. Alignment: There is grade 1 anterolisthesis of C7 on T1 and T1 on T2. Vertebrae: No fractures or significant losses of vertebral body heights. Intervertebral Discs: Multilevel degenerative disc disease. This is most notable at C4-C5 through C7-T1. C2-C3: There is bilateral facet arthropathy. No spinal canal stenosis. Mild foraminal narrowing. C3-C4: Small disc bulge. Mild spinal canal narrowing. Mild uncovertebral facet arthropathy. Mild narrowing of the left neural foramen. Right neural foramen is patent. C4-C5: There is a posterior disc osteophyte complex that mildly to moderately narrows the spinal canal. Mild uncovertebral facet joint arthropathy. Mild foraminal narrowing. C5-C6: There is a posterior disc osteophyte complex that effaces the thecal sac and moderately narrows the spinal canal. Bilateral uncovertebral and facet joint arthropathy. Moderate foraminal narrowing. C6-C7: Posterior disc osteophyte complex. Mild spinal canal narrowing. Mild uncovertebral and facet joint arthropathy. Mild foraminal narrowing. C7-T1: Bilateral facet arthropathy. Minimal anterolisthesis of C7 on T1. No spinal canal stenosis. Mild narrowing of the left neural foramen. The right neural foramen is patent. Paraspinal Tissues: Unremarkable. Additional Findings: None. CT/CT cervical spine wo con IMPRESSION: 1. No CT evidence of acute abnormalities throughout the cervical spine. 2. Multilevel degenerative changes. Electronically authenticated by: JC DUPONT Date: 12/27/2023 00:06
--- NOTE | 2023-12-26 23:22 | ECG_ITS ---
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
[2023-12-26 23:32] VITALS: BP 145/72; PULSE 73; O2SAT 98
[2023-12-27 01:05] VITALS: BP 130/58; PULSE 73; O2SAT 99
== END 2023-12-27 01:09 | disposition home or self-care (01) ==
PROVIDERS: Emergency Provider Internal Medicine; PCP Internal Medicine
DX: S06.0X9A Concussion with loss of consciousness of unspecified duration, initial encounter (principal); W19.XXXA Unspecified fall, initial encounter
CPT/HCPCS: 70450; 72125; 93005; 99285

== ENCOUNTER 2024-01-22 14:49 | Observation (INO) | payer MEDICARE, SELFPAY ==
[2024-01-22] VITALS (16 sets, daily range): BP systolic 80–138; BP diastolic 48–75; PULSE 76–100; TEMP 36.4–36.7; O2SAT 93–99; BMI 42.3; BMI 35.8
--- NOTE | 2024-01-22 14:59 | XR_ITS ---
The [address] [address] Patient Name: NAT MOORE MRN: [id number] date: 1940 Sex: M Assigned Patient Location: ED.MAIN Current Patient Location: ER Accession/Order Number: [id number] Exam Date: 01/22/2024 15:51 Report Date: 01/22/2024 17:12 At the request of: CATHY WHALEN Procedure: XR chest 1V EXAM: XR chest 1V HISTORY: Syncope/unresponsive COMPARISON: 11/15/2023. TECHNIQUE: AP view. FINDINGS: Stable mild cardiac enlargement. Left subclavian pacer leads extend into the right atrium and right ventricle. Atherosclerotic calcification of the thoracic aorta. Pulmonary vascularity is within normal limits. The lungs and the costophrenic angles are clear. XR/XR chest 1V IMPRESSION: Stable mild cardiac enlargement. No acute cardiopulmonary disease. Electronically authenticated by: GT LIZ Date: 01/22/2024 17:12
--- NOTE | 2024-01-22 14:59 | CT_ITS ---
The [address] [address] Patient Name: NAT MOORE MRN: [id number] date: 1940 Sex: M Assigned Patient Location: ER Current Patient Location: Accession/Order Number: [id number] Exam Date: 01/22/2024 15:51 Report Date: 01/22/2024 16:45 At the request of: CATHY WHALEN Procedure: CT head/brain wo con CT HEAD WITHOUT CONTRAST, 01/22/2024. HISTORY: CVA. Unresponsive. COMPARISON: CT head without contrast, 12/26/2023. TECHNIQUE: Noncontrast axial CT images obtained through the head. Reconstructions obtained in the sagittal and coronal planes. Dose reduction techniques were achieved by using automated exposure control and/or adjustment of mA and/or kV according to patient size and/or use of iterative reconstruction technique. FINDINGS: The paranasal sinuses are clear. The middle ear cavities and mastoid air cells are clear. The skull base is intact. Prior cataract surgery. Nasopharynx normal. Teacher Lip Reading spaces normal. Moderate brain atrophy. No hydrocephalus. No mass effect. No shift of midline. Large amount of chronic microvascular ischemic changes. No extra-axial fluid collection. No acute hemorrhage. No masses. CT/CT head/brain wo con IMPRESSION: Stable CT of the head. No acute findings. No hemorrhage. Brain atrophy and chronic microvascular ischemic changes stable. No hydrocephalus. Electronically authenticated by: STEPHANIE CHINO Date: 01/22/2024 16:45
--- NOTE | 2024-01-22 14:59 | ECG_ITS ---
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
--- NOTE | 2024-01-22 15:00 | CT_ITS ---
The [address] [address] Patient Name: NAT MOORE MRN: [id number] date: 1940 Sex: M Assigned Patient Location: ER Current Patient Location: [facility] Accession/Order Number: [id number] Exam Date: 01/22/2024 15:51 Report Date: 01/22/2024 17:38 At the request of: CATHY WHALEN Procedure: CT cervical spine wo con EXAM: CT cervical spine wo con HISTORY: The patient is an 83-year-old male, Syncope COMPARISON: 12/26/2023. TECHNIQUE: CT images were obtained through the cervical spine without intravenous contrast and reformatted in 2 dimensions. Dose reduction techniques were achieved by using automated exposure control and/or adjustment of mA and/or kV according to patient size and/or use of iterative reconstruction technique. FINDINGS: The axial images demonstrate no fractures or cortical discontinuities throughout the cervical spine. The coronal and sagittal reformatted images demonstrate no fractures or loss of vertebral body height throughout the cervical line. There is no significant malalignment. There is severe disc space narrowing at all levels between C4 and C7, and this is unchanged since the prior CT scan from 12/26/2023. The soft tissue images demonstrate a disc herniation at the C4-C5 level and disc osteophyte complexes at the C5-C6 and C6-C7 levels. These appear to contact the ventral spinal cord and are unchanged since the recent CT scan from 12/26/2023. There is no new findings. CT/CT cervical spine wo con IMPRESSION: 1. No fractures or loss of vertebral body height throughout the cervical spine. 2. 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 Electronically authenticated by: JESSY PENA Date: 01/22/2024 17:38
--- NOTE | 2024-01-22 15:02 | ED_ITS ---
HPI HPI - General Adult General Chief complaint: Altered Mental Status Stated complaint: UNRESPONSIVE Time Seen by Provider: 01/22/24 14:56 Source: patient Mode of arrival: ambulance Limitations: altered mental status History of Present Illness HPI narrative: Patient is an 83-year-old male who presents to the emergency department for the evaluation of an unresponsive episode in his home. EMS reports that the patient's found him sitting in a chair unresponsive, she was not sure if he was breathing so she called 911. Patient was breathing and arousable to painful stimuli on police arrival, awake and alert by the time EMS arrived. He did not require any CPR or Narcan. Patient is well-known to this emergency department, he was recently seen in this ER for head injury and at the end of October was seen in this ER and found to have sick sinus syndrome with a syncopal episode and was sent to tertiary care for pacemaker placement. Today the patient denies any focal medical complaints other than chronic neck pain. He denies any recent illness or chest pain. He states he is feeling well at this time. He is awake and alert to person and place on arrival to the ER. He is confused to month and year. Related Data Home Medications ?Medication ?Instructions ?Recorded ?Confirmed allopurinol 300 mg tablet 300 mg PO DAILY 07/26/23 01/22/24 docusate sodium 100 mg capsule 100 mg PO DAILY PRN constipation 07/26/23 01/22/24 donepezil 10 mg tablet 10 mg PO BEDTIME 07/26/23 01/22/24 fluoxetine 20 mg capsule 20 mg PO DAILY 07/26/23 01/22/24 gabapentin 100 mg capsule 200 mg PO TID 07/26/23 01/22/24 glipizide 10 mg tablet 10 mg PO BID 07/26/23 01/22/24 meloxicam 15 mg tablet 15 mg PO BEDTIME 07/26/23 01/22/24 methocarbamol 500 mg tablet 500 mg PO BEDTIME 07/26/23 01/22/24 omeprazole 40 mg capsule,delayed 40 mg PO DAILY 07/26/23 01/22/24 release tamsulosin 0.4 mg capsule 0.4 mg PO DAILY 07/26/23 01/22/24 furosemide 40 mg tablet 40 mg PO DAILY 11/15/23 01/22/24 potassium chloride 20 mEq 20 meq PO DAILY 11/15/23 01/22/24 tablet,extended release(part/cryst) trospium 60 mg capsule,extended 60 mg PO DAILY 11/15/23 01/22/24 release 24 hr fluoxetine 10 mg capsule 10 mg PO DAILY 01/22/24 01/22/24 oxybutynin chloride 5 mg 5 mg PO DAILY 01/22/24 01/22/24 tablet,extended release 24 hr quetiapine 25 mg tablet 25 mg PO BID 01/22/24 01/22/24 trazodone 100 mg tablet 100 mg PO DAILY 01/22/24 01/22/24 Previous Rx's ?Medication ?Instructions ?Recorded candesartan 32 mg tablet (Atacand) 32 mg PO DAILY #30 tabs 10/07/23 Allergies Allergy/AdvReac Type Severity Reaction Status Date / Time Penicillins Allergy Intermediate Unknown Verified 11/15/23 09:03 Opioid HPI Opioid Management Most Recent Opioid Data: Last Pain Scale 0 10/07/23 08:14 10/07/23 Last ORT Total Score 0 10/06/23 17:50 10/06/23 Last ORT Risk Category Low Risk 10/06/23 17:50 10/06/23 Ur Phencyclidine Scrn Negative (NEGATIVE) 07/26/23 08:10 05/0 07/15 Review of Systems ROS Constitutional Denies: fever or chills Ears, nose, mouth, and throat Denies: throat pain or nasal congestion Cardiovascular Denies: chest pain Respiratory Denies: shortness of breath Gastrointestinal Denies: nausea or vomiting Musculoskeletal Reports: neck pain and extremity swelling; Denies: back pain or extremity pain Integumentary/Breast Denies: rash Neurological Denies: numbness in extremities or weakness in extremities Hematologic/Lymphatic Denies: easy bruising or easy bleeding [facility] Medical History (Updated 01/22/24 @ 17:22 by ADELAIDA Paredes) History of pacemaker ?Z95.0 - Presence of cardiac pacemaker (ICD-10) Vomiting ?R11.10 - Vomiting, unspecified (ICD-10) Acute metabolic encephalopathy ?G93.41 - Metabolic encephalopathy (ICD-10) 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 (ICD-10) Low back pain ?M54.50 - Low back pain, unspecified (ICD-10) Dementia ?F03.90 - Unspecified dementia, unspecified severity, without behavioral disturbance, psychotic disturbance, mood disturbance, and anxiety (ICD-10) Depression ?F32.A - Depression, unspecified (ICD-10) Hyperuricemia ?E79.0 - Hyperuricemia without signs of inflammatory arthritis and tophaceous disease (ICD-10) HLD (hyperlipidemia) ?E78.5 - Hyperlipidemia, unspecified (ICD-10) Type 2 diabetes mellitus ?E11.9 - Type 2 diabetes mellitus without complications (ICD-10) HTN (hypertension) ?I10 - Essential (primary) hypertension (ICD-10) Social History Within the past year, how often did you have a drink containing alcohol: never Within the past year, how many standard drinks containing alcohol did you have on a typical day: 1 or 2 Within the past year, how often did you have six or more drinks on one occasion: never Total score: 0 Score interpretation: A score less than 4 is consistent with normal alcohol consumption. Smoking status: Never smoker Non-prescribed substance use: denies use Highest level of school completed/degree received: high school graduate Exam Narrative Exam Narrative: Gen.: Awake, alert, in no distress Head: Normocephalic, atraumatic ENT: Moist mucous membranes, no facial or dental injury Respiratory: No respiratory distress, lungs clear bilaterally Cardio: Regular rate and rhythm Gastrointestinal: Abdomen is soft, nondistended and nontender to palpation Extremities: Moves extremities equally, no injuries noted Psych: Normal mood and affect Neuro: No focal neuro deficit Skin: Warm, dry, intact Constitutional Vital Signs, click to edit/add: Last Vital Signs Temp 98.1 F 01/22/24 14:52 Pulse 76 01/22/24 16:33 Resp 14 01/22/24 16:33 BP 127/66 01/22/24 16:33 Pulse Ox 96 01/22/24 15:31 O2 Del Method Room Air 01/22/24 14:52 Course Vital Signs Vital signs: Vital Signs Temperature 98.1 F 01/22/24 14:52 Pulse Rate 86 01/22/24 14:52 Respiratory Rate 16 01/22/24 14:52 Blood Pressure 80/50 L 01/22/24 14:52 Pulse Oximetry 97 01/22/24 14:52 Oxygen Delivery Method Room Air 01/22/24 14:52 Temperature 98.1 F 01/22/24 14:52 Pulse Rate 76 01/22/24 16:33 Respiratory Rate 14 01/22/24 16:33 Blood Pressure 127/66 01/22/24 16:33 Pulse Oximetry 96 01/22/24 15:31 Oxygen Delivery Method Room Air 01/22/24 14:52 Medical Decision Making MDM Narrative Medical decision making narrative: Patient was treated with IV fluids, he was found to have stable cardiac monitoring, unremarkable EKG and blood pressure improved with IV fluid bolus. BNP is normal so the patient is not fluid overloaded at this time. His blood pressure responded and he rested comfortably in the ER. CT of the brain and chest x-ray are unremarkable, CT of the cervical spine was also obtained although the patient did not have any fall or injury. He is at his mental baseline at this time with no focal neurodeficits other than some baseline confusion. He will be admitted for IV fluids, dehydration and monitoring with a syncopal episode. Stable at time of admission to the hospitalist. SUPERVISED APC VISIT, PHYSICIAN ATTESTATION: Based on the medical record the care appears appropriate. ? Medical Records Medical records reviewed: Yes I reviewed the patient's medical records Lab Data Lab results reviewed: Yes I reviewed the patient's lab results Labs: Lab Results 01/22/24 01/22/24 Range/Units 14:57 16:46 WBC 9.3 (4.0-11.0) 10^3/uL RBC 3.41 L (4.70-6.10) 10^6/uL Hgb 11.0 L (14.0-18.0) g/dL Hct 33.6 L (42.0-54.0) % MCV 98.5 H (80.0-94.0) fL MCH 32.3 (25.9-34.0) pg MCHC 32.7 (29.9-35.2) g/dL RDW 14.1 (11.0-15.0) % Plt Count 145 L (150-450) 10^3/uL MPV 11.2 (9.5-13.5) fL Neut % (Auto) 75.0 (43.0-75.0) % Lymph % (Auto) 14.9 L (20.5-60.0) % [place] % (Auto) 4.9 (1.7-12.0) % Eos % (Auto) 4.7 (0.9-7.0) % Baso % (Auto) 0.3 (0.2-2.0) % Neut # (Auto) 7.0 H (1.4-6.5) 10^3/uL Lymph # (Auto) 1.4 (1.2-3.8) 10^3/uL [place] # (Auto) 0.5 (0.3-0.8) 10^3/uL Eos # (Auto) 0.4 (0.0-0.7) 10^3/uL Baso # (Auto) 0.0 (0.0-0.1) 10^3/uL Abs Immat Gran (auto) 0.02 (0.00-0.03) 10^3/uL Imm/Tot Granulo (auto) 0.2 (0.0-0.5) % PT 11.7 H (9.0-11.6) sec INR 1.12 Sodium 147 H (136-145) mmol/L Potassium 3.8 (3.5-5.1) mmol/L Chloride 109 H (98-107) mmol/L Carbon Dioxide 26.5 (21.0-32.0) mmol/L Anion Gap 15.3 BUN 34.0 H (7.0-18.0) mg/dL Creatinine 2.31 H (0.70-1.30) mg/dL Est GFR ( Amer) 33 L (>=60 mL/min/1.73m^2) Est GFR (Non-Af Amer) 27 L (>=60 mL/min/1.73m^2) BUN/Creatinine Ratio 14.7 Glucose 116 H (74-106) mg/dL Lactate 3.5 H* (0.4-2.0) mmol/L Calcium 8.9 (8.5-10.1) mg/dL Magnesium 1.4 L (1.8-2.4) mg/dL Total Bilirubin 0.6 (0.2-1.0) mg/dL AST 14 L (15-37) U/L ALT 13 L (16-63) U/L Alkaline Phosphatase 82 (46-116) U/L Troponin I High Sens 6.9 (4.0-76.1) pg/mL NT-Pro-B Natriuret Pep 218.0 (<=1800.0) pg/mL Total Protein 6.4 (6.4-8.2) g/dL Albumin 3.0 L (3.4-5.0) g/dL Globulin 3.4 g/dL Albumin/Globulin Ratio 0.9 TSH 1.870 (0.358-3.740) uIU/mL Urine Color Lt. yellow (YELLOW) Urine Clarity Clear (CLEAR) Urine pH 5.5 (5.0-9.0) Ur Specific [place] 1.010 (1.005-1.025) Urine Protein Negative (NEG/TRACE) mg/dL Urine Glucose (UA) Negative (NEGATIVE) mg/dL Urine Ketones Negative (NEGATIVE) mg/dL Urine Occult Blood Negative (NEGATIVE) Urine Nitrite Negative (NEGATIVE) Urine Bilirubin Negative (NEGATIVE) Urine Urobilinogen 0.2 (0.2-1.0) EU/dL Ur Leukocyte Esterase Negative (NEGATIVE) Imaging Data Chest x-ray: Attestation: I have reviewed the pertinent imaging results. Radiologist's impression: ITS Impressions Chest X-Ray 01/22/24 14:59 IMPRESSION: Stable mild cardiac enlargement. No acute cardiopulmonary disease. Electronically authenticated by: GT LIZ Date: 01/22/2024 17:[address] 01/22/24 14:59 IMPRESSION: Stable CT of the head. No acute findings. No hemorrhage. Brain atrophy and chronic microvascular ischemic changes stable. No hydrocephalus. Electronically authenticated by: STEPHANIE CHINO Date: 01/22/2024 16:45 ECG Data Attestation: I personally reviewed and interpreted this ECG as follows: (Normal sinus rhythm at a rate of 84, occasional PVC with no acute ST elevation. EKG reviewed by attending physician) Discharge Plan Discharge Chief Complaint: Altered Mental Status Patient Disposition: Admitted as Observation Time of Disposition Decision: 17:22 Prescriptions / Home Meds: No Action allopurinol 300 mg tablet 300 mg PO DAILY docusate sodium 100 mg capsule 100 mg PO DAILY PRN (Reason: constipation) donepezil 10 mg tablet 10 mg PO BEDTIME fluoxetine 20 mg capsule 20 mg PO DAILY gabapentin 100 mg capsule 200 mg PO TID glipizide 10 mg tablet 10 mg PO BID meloxicam 15 mg tablet 15 mg PO BEDTIME methocarbamol 500 mg tablet 500 mg PO BEDTIME omeprazole 40 mg capsule,delayed release(DR/EC) 40 mg PO DAILY tamsulosin 0.4 mg capsule 0.4 mg PO DAILY furosemide 40 mg tablet 40 mg PO DAILY potassium chloride 20 mEq tablet,ER particles/crystals 20 meq PO DAILY trospium 60 mg capsule,extended release 24hr 60 mg PO DAILY candesartan [Atacand] 32 mg tablet 32 mg PO DAILY Qty: 30 11RF fluoxetine 10 mg capsule 10 mg PO DAILY oxybutynin chloride 5 mg tablet extended release 24hr 5 mg PO DAILY quetiapine 25 mg tablet 25 mg PO BID trazodone 100 mg tablet 100 mg PO DAILY Print Language: Tunisian Referrals: JASON CRUZ [Primary Care Provider] - 1 week
[2024-01-22 15:07] LABS: Basophils Percent Auto 0.3 % (0.2-2.0); Eosinophils Absolute Auto 0.4 10^3/uL (0.0-0.7); Eosinophils Percent Auto 4.7 % (0.9-7.0); Hematocrit 33.6 % (42.0-54.0); Immature Granulocytes Abs Auto 0.02 10^3/uL (0.00-0.03); Immature Granulocytes Pct Auto 0.2 % (0.0-0.5); Lymphocytes Absolute Auto 1.4 10^3/uL (1.2-3.8); Lymphocytes Percent Auto 14.9 % (20.5-60.0); Mean Corpuscular HGB Conc 32.7 g/dL (29.9-35.2); Mean Corpuscular Hemoglobin 32.3 pg (25.9-34.0); Mean Corpuscular Volume 98.5 fL (80.0-94.0); Mean Platelet Volume 11.2 fL (9.5-13.5); Monocytes Absolute Auto 0.5 10^3/uL (0.3-0.8); Monocytes Percent Auto 4.9 % (1.7-12.0); Platelet Count 145 10^3/uL (150-450); Red Blood Count 3.41 10^6/uL (4.70-6.10); Red Cell Distribution Width 14.1 % (11.0-15.0); White Blood Count 9.3 10^3/uL (4.0-11.0)
--- OUTSIDE RECORDS SUMMARY | 2024-01-22 15:17 | XMS_ITS | CCD ---
Author Organization [facility] Care Team Providers Care Business Development Engineer Name Role Phone JUAN PABLO ALANIZ Primary Care Physician DR JUAN PABLO ALANIZ Primary Care Unavailable LUCIAN ., AI Admitting Unavailable LUCIAN ., AI Attending Unavailable KOBY ., ADELAIDA MORGAN Consulting Unavailabl e MANDIE NOBLE Attending Unavailable MANDIE NOBLE Admitting [...] Freeman Attending Unavailable CRYSTAL .SHELLIE Consulting Unavailable CORBIN, DR GOMEZ Primary [...] Unavailable CORBIN, DR GOMEZ Primary Care Unavailable AIDE, PETER D Admitting Unavailable HIGHLANDER, PETER Maxine Attending Unavailable ALANIZ, DR GOMEZ Primary Care [...] vailable LAKSHMIPATHY ., NARENDAMANDAATH Attending Yasmeen vailable CORBIN, DR GOMEZ Primary Care Unavailable HIGHLANDER, PETER D Admitting Unavailable HIGHLANDER, PETER D Attending Unavailable BLAIR, CAIT Chang Attending Unavailable BLAIR, CAIT Chang Attending Unavailable Orzech, Marianela Rodriguez Attending Unavailable Orzech, Marianela X Attending Unavailable Orzech, Marianela X Attending Unavailable PROVIDER, UNKNOWN Admitting Unavailable PROVIDER, UNKNOWN Attending Unavailable GERARDO, ART Referring Unavailable SAM ZELAYA Referring Unavailable DIAB, CHAKA Referring Unavailable HORANI, GILES Admitting Unavailable GILESLUPILLOD Attending Unavailable HORANI, GILES Referring Unavailable HORANI, GILES Referring Unavailable PIRKLANUEL Referring Unavailable HORANI, GILES Referring Unavailable HORANI, GILES Referring Unavailable GERARDO, ART Referring Unavailable GERARDO, ART Referring Unavailable RENE ANTHONY M Referring Unavailable AHMED, IRFAN Primary Care Unavailable LORI DARCY Referring Unavailable AHMED, IRFAN Primary Care Unavailable JUAN DAVID LUI Attending Unavailable AHMED, IRFAN Primary Care Unavailable Juan Pablo Alaniz MD Unavailable [phone] Juan Pablo Alaniz MD Primary Care Provider JUAN PABLO ALANIZ Attending Unavailable JUAN PABLO ALANIZ Attending Unavailable JUAN PABLO ALANIZ Attending Unavailable JUAN PABLO ALANIZ Attending Unavailable TOMMY GABRIEL Attending Unavailable DARCY SANDOVAL Attending Unavailable LORIDARCY Attending Unavailable LORIDARCY Attending Unavailable LORIDARCY Attending Unavailable LORIDARCY Attending Unavailable Allergies Allergy Classification Reported Allergen(s) Allergy Type Date of Onset Reaction(s) Facility (10 sources) Penicillin; Translations: [penicillin] Drug Allergy 12-01-2021 [facility] [place] (3 sources) Penicillins; Translations: [PENICILLINS] Drug allergy (disorder) 11-15-2023 [facility] (6 sources) Penicillin G Drug Allergy 11-01-2022 Unknown [facility] Work Phone: (5 sources) Codeine Drug Allergy 12-25-2023 [facility] Medications Current Medications Medication Drug Class(es) Dates Sig (Normalized) Sig (Original) allopurinol 300 mg oral tablet (14 sources) Xanthine Oxidase Inhibitor Start: 01-17-2021 take 1 tablet by mouth once daily allopurinol (Zyloprim) 300 MG tablet Indications: Essential hypertension (CMS/HCC) TAKE ONE TABLET BY MOUTH DAILY 100 tablet 3 03/13/2023 Active amLODIPine 5 mg oral tablet (5 sources) Dihydropyridine Calcium Channel Levi take 1 tablet by mouth once daily for hypertension amLODIPine (Norvasc) 5 MG tablet TAKE ONE TABLET BY MOUTH DAILY FOR HYPERTENSION Active aspirin 81 mg delayed release oral tablet (5 sources) Platelet Aggregation Inhibitor, Nonsteroidal Anti-inflammatory Drug take 1 tablet by mouth once daily aspirin 81 MG EC tablet Take 1 tablet by mouth Daily Active atorvastatin 40 mg oral tablet (5 sources) HMG-CoA Reductase Inhibitor take 1 capsule by mouth at bedtime for hyperlipidemia atorvastatin (Lipitor) 40 MG tablet TAKE ONE CAPSULE BY MOUTH AT BEDTIME FOR CHOLESTEROL CONTROL Active candesartan cilexetil 32 mg oral tablet (6 sources) Angiotensin 2 Receptor Levi Start: 10-07-2023 take 1 tablet by mouth once daily candesartan (Atacand) 32 MG tablet Take 32 mg by mouth Daily 10/07/2023 Active dicyclomine hydrochloride 20 mg oral tablet (6 sources) Anticholinergic Start: 01-17-2021 take 1 mg by mouth four times daily dicyclomine 20 mg Tab mg tab(s), Oral, QID, Refills(s) 0 Start Date: 01/17/21 Status: Ordered docusate sodium 100 mg oral capsule (14 sources) Start: 01-16-2023 take 1 capsule by mouth once daily as needed docusate sodium (Colace) 100 MG capsule Indications: Constipation, unspecified constipation type TAKE ONE CAPSULE BY MOUTH DAILY NEEDED 28 capsule 11 01/16/2023 Active Start: 01-17-2021 docusate sodiu m Refills(s) 0 Start Date: 01/17/21 Status: Ordered donepezil hydrochloride 10 mg oral tablet (14 sources) Start: 10-23-2023 take 1 tablet by mouth once daily at bedtime donepezil (Aricept) 10 MG tablet Indications: Cognitive impairment TAKE ONE TABLET BY MOUTH DAILY AT BEDTIME 28 tablet 11 10/23/2023 Active Start: 01-17-2021 take 1 mg by mouth o nce daily at bedtime donepezil 5 mg Tab mg tab(s), Oral, Once a day (at bedtime), Refills(s) 0 Start Date: 01/17/21 Status: Ordered doxycycline hyclate 100 mg oral tablet (5 sources) Tetracycline-class Drug take 1 tablet by mouth in the morning doxycycline (Vibra-Tabs) 100 MG tablet Take 1 tablet by mouth in the morning and 1 tablet before bedtime. Active empagliflozin 10 mg / linagliptin 5 mg oral tablet (8 sources) Dipeptidyl Peptidase 4 Inhibitor, Sodium-Glucose Cotransporter 2 Inhibitor Start: 2020 take 1 tablet by mouth once daily in the morning Glyxambi 10 mg-5 mg oral tablet tab(s), Oral, qAM, Refill(s) 0 Start Date: 01/17/21 Status: Ordered FLUoxetine 10 mg oral capsule (11 sources) Serotonin Reuptake Inhibitor Start: 2023 take 1 capsule by mouth once daily for depression FLUoxetine (PROzac) 10 MG capsule TAKE ONE CAPSULE BY MOUTH DAILY FOR DEPRESSION WITH 20MG TO EQUAL 30MG TOTAL 12/08/2023 Active Start: 11-28-2022 take 1 capsule by [facility] once daily FLUoxetine (PROzac) 20 MG capsule Indications: Seasonal affective disorder (CMS/HCC) TAKE ONE CAPSULE BY MOUTH ONCE DAILY 28 capsule 11 11/28/2022 Active furosemide 40 mg oral tablet (6 sources) Loop Diuretic Start: 11-13-2023 End: 11-12-2024 take 1 tablet by mouth once daily furosemide (Lasix) 40 MG tablet Indications: Bilateral lower extremity edema Take 1 tablet (40 mg) by mouth Daily 30 tablet 11 11/13/2023 11/12/2024 Active gabapentin 100 mg oral capsule (14 sources) Anti-epileptic Agent Start: 10-01-2023 take 2 capsules by mouth in the morning, then take 2 capsules by mouth in the evening, then take 2 capsules by mouth at bedtime gabapentin (Neurontin) 100 MG capsule Indications: Chronic low back pain with right-sided sciatica, unspecified back pain laterality TAKE 2 CAPSULES BY MOUTH IN THE MORNING, 2 CAPSULES IN THE EVENING, AND 2 CAPSULES BEFORE BEDTIME 168 capsule 11 10/01/2023 Active Start: 01-17-2021 take 1 mg by mouth t hree times daily gabapentin 100 mg Cap mg cap(s), Oral, TID, Refills(s) 0 Start Date: 01/17/21 Status: Ordered glipiZIDE 10 mg oral tablet (14 sources) Sulfonylurea Start: 03-13-2023 take 1 tablet by mouth twice daily glipiZIDE (Glucotrol) 10 MG tablet Indications: Type 2 diabetes mellitus with other specified complication, without long-term current use of insulin (CMS/HCC) TAKE ONE TABLET BY MOUTH TWICE A DAY 200 tablet 3 03/13/2023 Active Start: 01-17-2021 take 1 mg by mouth once daily glipiZIDE 10 mg Tab mg tab(s), Oral, Daily, Refills(s) 0 Start Date: 01/17/21 Status: Ordered hydrOXYzine hydrochloride 25 mg oral tablet (5 sources) Antihistamine Start: 12-08-2023 take 1 tablet by mouth every eight hours as needed for anxiety hydrOXYzine HCl (Atarax) 25 MG tablet Take 25 mg by mouth every 8 (eight) hours if needed for anxiety 12/08/2023 Active lidocaine 0.05 mg/mg medicated patch (6 sources) Antiarrhythmic, Amide Local Anesthetic Start: 01-13-2023 End: 01-13-2024 apply 1 dose transdermal route every twelve hours in the morning, then apply 1 dose transdermal route every twelve hours lidocaine (Lidoderm) 5 % patch Indications: Spinal stenosis of lumbar region with neurogenic claudication Apply 1 patch over 12 hours topically in the morning. Remove & discard patch within 12 hours or as directed by MD.. 30 patch 11 01/13/2023 01/13/2024 Active meloxicam 15 mg oral tablet (6 sources) Nonsteroidal Anti-inflammatory Drug Start: 10-23-2023 take 1 tablet by mouth at bedtime meloxicam (Mobic) 15 MG tablet Indications: Spinal stenosis of lumbar region, unspecified whether neurogenic claudication present TAKE ONE TABLET BY MOUTH AT BEDTIME 28 tablet 11 10/23/2023 Active methocarbamol 500 mg oral tablet (6 sources) Muscle Relaxant Start: 12-30-2023 take 1 tablet by mouth once daily at bedtime methocarbamol (Robaxin) 500 MG tablet Indications: Spinal stenosis of lumbar region, unspecified whether neurogenic claudication present TAKE ONE TABLET BY MOUTH DAILY AT BEDTIME 28 tablet 11 12/30/2023 Active Start: 01-16-2023 take 1 tablet by shannon th at bedtime methocarbamol (Robaxin) 500 MG tablet Indications: Spinal stenosis of lumbar region, unspecified whether neurogenic claudication present TAKE 1 TABLET (500 MG) BY MOUTH AT BEDTIME. 28 tablet 11 01/16/2023 Active metOLazone 5 mg oral tablet (5 sources) Thiazide-like Diuretic Start: 12-25-2023 End: 12-30-2023 take 1 tablet by mouth once daily metOLazone (Zaroxolyn) 5 MG tablet Indications: Localized edema Take 1 tablet (5 mg) by mouth Daily for 5 days Give 1/2 hour before Lasix 5 tablet 12/25/2023 Active 24 hr metoprolol succinate 100 mg extended release oral tablet (8 sources) beta-Adrenergic Levi Start: 01-17-2021 take 1 mg by mouth once daily metoprolol 100 mg ER Tab mg tab(s), Oral, Daily, Refills(s) 0 Start Date: 01/17/21 Status: Ordered omeprazole 40 mg delayed release oral capsule (6 sources) Proton Pump Inhibitor Start: 12-30-2023 take 1 capsule by mouth once daily at breakfast omeprazole (PriLOSEC) [address] capsule Indications: GERD without esophagitis TAKE ONE CAPSULE BY MOUTH DAILY BEFORE MORNING MEAL 28 capsule 11 12/30/2023 Active Start: 01-16-2023 omeprazole (Pr iLOSEC) [address] capsule Indications: GERD without esophagitis TAKE ONE CAPSULE BY MOUTH ONCE DAILY 30 MINUTES BEFORE MORNING MEAL 90 28 capsule 11 01/16/2023 Active 24 hr oxybutynin chloride 5 mg extended release oral tablet (5 sources) Cholinergic Muscarinic Antagonist take 1 tablet by mouth every twenty-four hours at bedtime oxybutynin XL (Ditropan-XL) 5 MG 24 hr tablet TAKE ONE TABLET BY MOUTH AT BEDTIME FOR OVERACTIVE BLADDER Active microencapsulated potassium chloride 20 meq extended release oral tablet (6 sources) Start: 2023 End: 2024 take 1 tablet by mouth once daily potassium chloride CR (Klor-Con M20) 20 MEQ ER tablet Indications: Hypokalemia Take 1 tablet (20 mEq) by mouth Daily Do not crush or chew. 30 tablet 11 11/13/2023 11/12/2024 Active QUEtiapine 25 mg oral tablet (5 sources) Atypical Antipsychotic take 1 tablet by mouth twice daily QUEtiapine (SEROquel) 25 MG tablet TAKE ONE TABLET BY MOUTH TWICE A DAY FOR DELUSIONS Active solifenacin succinate 10 mg oral tablet (10 sources) Cholinergic Muscarinic Antagonist Start: 2023 take 1 tablet by mouth once daily solifenacin 10 mg Tab 10 mg = 1 tab(s), Oral, Daily, # 30 tab(s), Refills(s) 11, Pharmacy: [facility], 167, cm, 09/16/22 15:10:00 EDT, Height/Length Dosing, 120, kg, 09/16/22 15:10:00 EDT, Weight Dosing Start Date: 10/01/23 Status: Ordered Start: 09-16-2022 End: 09-11-2023 take 1 tablet by mouth once daily Vesicare 10 mg Tab 10 mg = 1 tab(s), Oral, Daily, X 30 day(s), # 30 tab(s), Refills(s) 11, Pharmacy: [facility], 167, cm, 09/16/22 15:10:00 EDT, Height/Length Dosing, 120, kg, 09/16/22 15:10:00 EDT, Weight Dosing Start Date: 09/16/22 Stop Date: 09/11/23 Status: Ordered Start: 04-26-2022 take 1 tablet [facility] once daily Vesicare 5 mg Tab 5 mg = 1 tab(s), Oral, Daily, # 30 tab(s), Refills(s) 11, Pharmacy: [facility], 174, cm, 12/03/21 13:40:00 EDT, Height/Length Dosing, 112, kg, 12/03/21 13:40:00 EDT, Weight Dosing Start Date: 04/26/22 Status: Ordered tamsulosin hydrochloride 0.4 mg oral capsule (14 sources) alpha-Adrenergic Levi Start: 10-01-2023 take 1 capsule by mouth once daily Flomax 0.4 mg Cap 0.4 mg = 1 cap(s), Oral, Daily, # 30 cap(s), Refills(s) 11, Pharmacy: [facility], 167, cm, 09/16/22 15:10:00 EDT, Height/Length Dosing, 120, kg, 09/16/22 15:10:00 EDT, Weight Dosing Start Date: 10/01/23 Status: Ordered Start: 10-31-2022 take 1 capsule by [facility] every twenty-four hours in the morning tamsulosin (Flomax) 0.4 MG 24 hr capsule Take 0.4 mg by mouth in the morning. 10/31/2022 Active Start: 10-09-2022 take 1 capsule by mouth once d aily Flomax 0.4 mg Cap 0.4 mg = 1 cap(s), Oral, Daily, # 30 cap(s), Refills(s) 11, called to pharmacy (Rx) Start Date: 10/09/22 Status: Ordered Start: 10-25-2021 take 1 capsule by mouth once d aily Flomax 0.4 mg Cap 0.4 mg = 1 cap(s), Oral, Daily, # 90 cap(s), Refills(s) 3, Pharmacy: [facility], 174, cm, 09/03/21 13:40:00 EDT, Height/Length Dosing, 112.5, kg, 09/03/21 13:40:00 EDT, Weight Dosing Start Date: 10/25/21 Status: Ordered Start: 07-03-2021 take 1 capsule by mouth once d aily Flomax 0.4 mg Cap 0.4 mg = 1 cap(s), Oral, Daily, # 30 cap(s), Refills(s) 3, Pharmacy: [facility], 174, cm, 07/17/20 5:39:00 EDT, Height/Length Dosing, 112.5, kg, 07/17/20 5:39:00 EDT, Weight Dosing Start Date: 07/03/21 Status: Ordered 24 hr tolterodine tartrate 4 mg extended release oral capsule (4 sources) Cholinergic Muscarinic Antagonist Start: 01-17-2021 take 1 capsule by mouth once daily tolterodine 4 mg Cap-ER 4 mg = 1 cap(s), Oral, Daily, # 30 cap(s), Refills(s) 11, Pharmacy: [facility], 174, cm, 09/03/21 13:40:00 EDT, Height/Length Dosing, 112.5, kg, 09/03/21 13:40:00 EDT, Weight Dosing Start Date: 09/03/21 Status: Ordered traZODone hydrochloride 100 mg oral tablet (5 sources) Serotonin Reuptake Inhibitor take 1 capsule by mouth at bedtime for depression traZODone (Desyrel) 100 MG tablet TAKE ONE CAPSULE BY MOUTH AT BEDTIME FOR DEPRESSION Active 24 hr trospium chloride 60 mg extended release oral capsule (5 sources) Cholinergic Muscarinic Antagonist Start: 12-08-2023 trospium (Sanctura XR) 60 MG 24 hour capsule Take by mouth Daily 12/08/2023 Active vibegron 75 MG Oral Tablet [Gemtesa] (1 source) Start: 11-11-2023 take 1 tablet by mouth once daily Gemtesa 75 mg oral tablet 75 mg = 1 tab(s), Oral, Daily, # 30 tab(s), Refills(s) 3, Pharmacy: [facility], 167, cm, 11/11/23 13:29:00 EDT, Height/Length Dosing, 120, kg, 11/11/23 13:29:00 EDT, Weight Dosing Start Date: 11/11/23 Status: Ordered Completed/Discontinued Medications Medication Drug Class(es) Dates Sig (Normalized) Sig (Original) candesartan cilexetil 32 mg / hydroCHLOROthiazide 25 mg oral tablet (3 sources) Thiazide Diuretic, Angiotensin 2 Receptor Levi Start: 05-13-2023 End: 12-25-2023 take 1 tablet by mouth in the morning Candesartan Cilexetil-HCTZ 32-25 MG tablet Indications: Essential hypertension (CMS/HCC) Take 1 tablet by mouth in the morning. 100 tablet 2 05/13/2023 12/25/2023 Discontinued Problems Active Problems Problem Classification Problem Date Documented Date Episodic/Chronic Acute and unspecified renal failure (1 source) Acute kidney failure, unspecified; Translations: [ACUTE KIDNEY FAILURE UNSPECIFIED] Onset: 07-31-2022 Episodic Chronic kidney disease (6 sources) Chronic kidney disease stage 3A ; Translations: [Stage 3a chronic kidney disease (HCC)] Onset: 11-21-2023 12-02-2023 Chronic Chronic obstructive pulmonary disease and bronchiectasis (1 source) Chronic obstructive pulmonary disease, unspecified; Translations: [COPD UNSPECIFIED] Onset: 03-06-2022 Chronic Conduction disorders (16 sources) Other specified heart block; Translations: [Presence of cardiac pacemaker] Onset: 11-15-2023 Chronic Coronary atherosclerosis and other heart disease (8 sources) Atherosclerotic heart disease of [place] coronary artery with unspecified angina pectoris; Translations: [Coronary arteriosclerosis] Onset: 11-15-2023 Chronic Diabetes mellitus with complications (20 sources) Type 2 diabetes mellitus with diabetic neuropathy, unspecified; Translations: [Type 2 diabetes mellitus with other circulatory complications] Onset: 09-04-2016 Resolved: 11-19-2022 11-19-2022 Chronic Diabetes mellitus without complication (15 sources) Diabetes mellitus; Translations: [Type 2 diabetes mellitus without complications] Onset: 07-31-2022 07-17-2020 Chronic Diverticulosis and diverticulitis (14 sources) Diverticulitis; Translations: [Diverticulosis of sigmoid colon] Onset: 10-07-2022 01-17-2021 Chronic Esophageal disorders (7 sources) Gastro-esophageal reflux disease without esophagitis; Translations: [Gastroesophageal reflux disease without esophagitis] Onset: 12-11-2021 10-07-2022 Chronic Essential hypertension (17 sources) Hypertensive disorder; Translations: [Essential (primary) hypertension] Onset: 03-06-2022 01-17-2021 Chronic Fluid and electrolyte disorders (12 sources) Hypernatremia; Translations: [Hyperosmolality and hypernatremia] Onset: 11-21-2023 12-02-2023 Episodic Gastritis and duodenitis (6 sources) Atrophic gastritis; 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] Onset: 10-07-2022 10-07-2022 Chronic Genitourinary symptoms and ill-defined conditions (12 sources) Urge incontinence; Translations: [Urge incontinence of urine] Onset: 12-03-2021 Chronic Genitourinary symptoms and ill-defined conditions (20 sources) Increased frequency of urination; Translations: [Frequency of micturition] Onset: 09-03-2021 Episodic Hyperplasia of prostate (17 sources) Benign prostatic hypertrophy with outflow obstruction; Translations: [Benign prostatic hyperplasia with lower urinary tract symptoms] Onset: 09-03-2021 Chronic Mood disorders (6 sources) Seasonal affective disorder; Translations: [Other recurrent depressive disorders] Onset: 10-07-2022 10-07-2022 Chronic Mycoses (11 sources) Tinea unguium; Translations: [Onychomycosis due to dermatophyte ] Onset: 11-29-2021 Episodic Other aftercare (1 source) Other long-term (current) drug therapy; Translations: [OTH SHELTER CURRENT DRUG THERAPY] Onset: 07-31-2022 Episodic Other aftercare (1 source) terminal clerk (current) use of oral hypoglycemic drugs; Translations: [SHELTER USE ORAL HYPOGLYCEMIC DX] Onset: 07-31-2022 Episodic Other connective tissue disease (4 sources) Other muscle spasm; Translations: [OTHER MUSCLE SPASM] Onset: 05-23-2022 Episodic Other connective tissue disease (6 sources) Pain in toe; Translations: [Pain in unspecified toe(s)] Onset: 12-02-2023 12-02-2023 Episodic Other connective tissue disease (6 sources) Swelling of bilateral feet; Translations: [Other specified soft tissue disorders] Onset: 12-02-2023 12-02-2023 Episodic Other diseases of bladder and urethra (2 sources) Other specified disorders of bladder; Translations: [Other specified disorders of bladder] Onset: 11-15-2023 Chronic Other diseases of bladder and urethra (6 sources) Overactive bladder; Translations: [Overactive bladder] Onset: 10-07-2022 10-07-2022 Chronic Other diseases of veins and lymphatics (1 source) Lymphedema, not elsewhere classified; Translations: [LYMPHEDEMA NOT ELSEWHERE CLASSIFIED] Onset: 12-11-2021 Chronic Other injuries and conditions due to external causes (1 source) Unspecified injury of head, initial encounter; Translations: [Unspecified injury of head, initial encounter] Onset: 11-28-2023 Episodic Other lower respiratory disease (1 source) Shortness of breath; Translations: [SHORTNESS OF BREATH] Onset: 07-31-2022 Episodic Other lower respiratory disease (2 sources) Cough; Translations: [Acute cough] 12-25-2023 Episodic Other male genital disorders (6 sources) Secondary erectile dysfunction; Translations: [Male erectile dysfunction, unspecified] Onset: 09-30-2017 11-19-2022 Chronic Other nervous system disorders (8 sources) Neuropathy 01-17-2021 Chronic Other nervous system disorders (1 source) Other chronic pain; Translations: [OTHER CHRONIC PAIN] Onset: 04-18-2022 Chronic Other nervous system disorders (6 sources) Metabolic encephalopathy; Translations: [Metabolic encephalopathy] Onset: 11-21-2023 12-02-2023 Chronic Other nutritional; endocrine; and metabolic disorders (6 sources) Obesity caused by energy imbalance; Translations: [Other obesity due to excess calories] Onset: 11-21-2023 12-02-2023 Chronic Other skin disorders (5 sources) Nail dystrophy; Translations: [NAIL DYSTROPHY] Onset: 04-30-2022 Episodic Residual codes; unclassified (8 sources) Amnesia 01-17-2021 Episodic Residual codes; unclassified (8 sources) Swelling - edema - symptom 01-17-2021 Episodic Residual codes; unclassified (2 sources) Edema, unspecified; Translations: [Edema, unspecified] Onset: 12-05-2023 Episodic Residual codes; unclassified (2 sources) Edema; Translations: [Edema, unspecified] 01-08-2024 Episodic Residual codes; unclassified (2 sources) Altered mental status; Translations: [Altered mental status, unspecified] 01-08-2024 Episodic Screening and history of mental health and substance abuse codes (1 source) Personal history of nicotine dependence; Translations: [PERSONAL HISTORY OF NICOTINE DEPEND] Onset: 07-31-2022 Episodic Spondylosis; intervertebral disc disorders; other back problems (16 sources) Other intervertebral disc degeneration, lumbar region; Translations: [Spondylosis without myelopathy or radiculopathy, lumbar region] Onset: 12-13-2021 Chronic Substance-related disorders (8 sources) Smoker 01-19-2021 Chronic Comment on above: Added secondary to d ocumentation in Social History. Syncope (8 sources) Syncope and collapse; Translations: [Syncope and [...] OF COVID-19] Onset: 03-06-2022 Unclassified (1 source) YARN WEIGHER INJECT NONINSULN ANTIDIAB; Translations: [YARN WEIGHER INJECT NONINSULN ANTIDIAB] Onset: 03-02-2022 Unclassified (2 sources) Admission Requirement; Translations: [Admission Requirement] Onset: 11-30-2023 Past or Other Problems Problem Classification Problem Date Documented Da te Episodic/Chronic Biliary tract disease (6 sources) Cholelithiasis without obstruction; Translations: [Calculus of gallbladder without cholecystitis without obstruction] Onset: 10-07-2022 10-07-2022 Episodic Mood disorders (6 sources) Mood disorders Onset: 04-23-2023 04-23-2023 Other aftercare (6 sources) Long-term current use of insulin; Translations: [terminal clerk (current) use of insulin] Onset: 07-23-2017 Resolved: 04-23-2023 04-23-2023 Episodic Other connective tissue disease (14 sources) Calcaneal spur; Translations: [Calcaneal spur, unspecified foot] Onset: 09-04-2016 01-17-2021 Episodic Other connective tissue disease (1 source) Muscle wasting and atrophy, not elsewhere classified, unspecified site; Translations: [MUSCLE WASTING ATROPHY NEC UNS SITE] Onset: 10-04-2021 Episodic Other diseases of veins and lymphatics (1 source) Venous insufficiency (chronic) (peripheral); Translations: [VENOUS INSUFF CHRONIC PERIPHERAL] Onset: 12-11-2021 Episodic Other gastrointestinal disorders (6 sources) Constipation; Translations: [Constipation, unspecified] Onset: 01-31-2020 11-19-2022 Episodic Other lower respiratory disease (14 sources) Nodule of lung; Translations: [Solitary pulmonary nodule] Onset: 10-07-2022 01-17-2021 Episodic Other nervous system disorders (6 sources) Impaired cognition; Translations: [Other symptoms and signs involving cognitive functions and awareness] Onset: 10-07-2022 10-07-2022 Episodic Other nervous system disorders (6 sources) Ataxic gait; Translations: [Ataxic gait] Onset: 10-07-2022 10-07-2022 Episodic Other skin disorders (5 sources) Corns [...] edema; Translations: [LOCALIZED EDEMA] Onset: 04-30-2022 Episodic Residual codes; unclassified (6 sources) Insomnia; Translations: [Insomnia, unspecified] Onset: 10-07-2022 10-07-2022 Episodic Residual codes; unclassified (8 sources) Localized edema; Translations: [Localized edema] Onset: 10-07-2022 10-07-2022 Episodic Spondylosis; intervertebral disc disorders; other back problems (20 sources) Muscle spasm of back; Translations: [Intervertebral disc disorders with radiculopathy, lumbar region] Onset: 09-15-2021 Episodic Unclassified (1 source) COUGH, UNSPECIFIED; Translations: [COUGH, UNSPECIFIED] Onset: 07-26-2022 Unclassified (1 source) LOW BACK PAIN, UNSPECIFIED; Translations: [LOW BACK PAIN, UNSPECIFIED] Onset: 01-22-2022 Results Test Name Value Interpretation Reference Range Facility Basic Metabolic Profon 12-04 Anion gap [Moles/Vol] 9 mmol/L Normal 12-07 [facility] Comment on above: Performed By: #### B MP #### [facility] [address] [place] [address] Credit Card Specialist: Eliud Leonard MD BUN/CRE Ratio 20 Normal 12-11 [facility] Comment on above: Performed By: #### B MP #### [facility] [address] [place] [address] Credit Card Specialist: Eliud Leonard MD Calcium [Mass/Vol] 8.5 mg/dL Low 8.6-10.4 [facility] Comment on above: Performed By: #### B MP #### [facility] [address] [place] [address] Credit Card Specialist: Eliud Leonard MD Chloride [Moles/Vol] 108 mmol/L High 98-107 [facility] Comment on above: Performed By: #### B MP #### [facility] [address] [place], [place] [id number] Credit Card Specialist: Eliud Leonard MD CO2 [Moles/Vol] 26 mmol/L Normal 20-31 [facility] Comment on above: Performed By: #### B MP #### [facility] [address] [place] [address] Credit Card Specialist: Eliud Leonard MD Creatinine [Mass/Vol] 1.6 mg/dL High 0.70-1.20 [facility] Comment on above: Performed By: #### B MP #### [facility] [address] [place] [address] Credit Card Specialist: Eliud Leonard MD GFR/1.73 sq M.predicted among non-blacks MDRD (S/P/Bld) [Vol rate/Area] 41 mL/min/{1.73_m2} Low >60 [facility] Comment on above: Result Comment: These [...] secretion. Performed By: #### B MP #### [facility] [address] [place] [address] Credit Card Specialist: Eliud Leonard MD Glucose [Mass/Vol] 66 mg/dL Low 74-99 [facility] Comment on above: Performed By: #### B MP #### [facility] [address] [place] [address] Credit Card Specialist: Eliud Leonard MD Potassium [Moles/Vol] 4.3 mmol/L Normal 3.7-5.3 [facility] Comment on above: Performed By: #### B MP #### [facility] [address] [place] [address] Credit Card Specialist: Eliud Leonard MD Sodium [Moles/Vol] 143 mmol/L Normal 136-145 [facility] Comment on above: Performed By: #### B MP #### [address] [place] [address] Credit Card Specialist: Eliud Leonard MD Urea nitrogen [Mass/Vol] 32 mg/dL High 8-23 [facility] Comment on above: Performed By: #### B MP #### [facility] [address] [place] [address] [place] [address] Credit Card Specialist: Eliud Leonard MD Cult,Urineon 12-01-2023 Cult,Urine Specimen Description .CLEAN CATCH URINE Culture NO SIGNIFICANT GROWTH Report Status FINAL 12/01/2023 Normal [facility] Comment on above: Performed By: #### U RC #### [address] [id number] Credit Card Specialist: [place] MD [facility] [address] [place] [address] [place] [address] Credit Card Specialist: Eliud Leonard MD Urinalysis, Routineon 2023 Bilirubin, SemiQt,Ur Negative Normal NEG [facility] Comment on above: Performed By: #### U A #### [address] [place] [address] Credit Card Specialist: Eliud Leonard MD Blood, Urine Negative Normal NEG [facility] Comment on above: Performed By: #### U A #### [facility] [address] [place] [address] Credit Card Specialist: lEiud Leonard MD Clarity (U) Clear Normal CLEAR [facility] Comment on above: Performed By: #### U A #### [facility] [address] [place] [address] Credit Card Specialist: Eliud Leonard MD Color (U) Yellow Normal YEL [facility] Comment on above: Performed By: #### U A #### [facility] [address] [place], [place] [id number] Credit Card Specialist: Eliud Leonard MD Glucose Ql (U) Negative Normal NEG [facility] Comment on above: Performed By: #### U A #### [facility] [address] [place] [address] [place] [address] Credit Card Specialist: Eliud Leonard MD Ketones Ql (U) Negative Normal NEG [facility] Comment on above: Performed By: #### U A #### [facility] [address] [place] [address] [place], [place] [id number] Credit Card Specialist: Eliud Leonard MD Leukocyte esterase Test strip Ql (U) Negative Normal NEG [facility] Comment on above: Performed By: #### U A #### [facility] [address] [place] [address] [place] [address] Credit Card Specialist: Eliud Leonard MD Nitrite,Ur Negative Normal NEG [facility] Comment on above: Performed By: #### U A #### [facility] [address] [place], [place] [id number] Credit Card Specialist: Eliud Leonard MD PH,Ur 6.0 Normal 5.0-9.0 [facility] Comment on above: Performed By: #### U A #### [facility] [address] [place], [place] [id number] Credit Card Specialist: Eliud Leonard MD Protein Ql (U) Negative Normal NEG [facility] Comment on above: Performed By: #### U A #### [facility] [address] [place], [place] [address]83 Credit Card Specialist: Eliud Leonard MD Spec. [place],Ur 1.020 Normal 1.010-1.020 [facility] Comment on above: Performed By: #### U A #### [facility] [address] [place], [place] 127[address]83 Credit Card Specialist: Eliud Leonard MD Urobilinogen,Ur Normal Normal 0.0-1.0 [facility] Comment on above: Performed By: #### U A #### [facility] [address] [place], [place] [id number] Credit Card Specialist: Eliud Leonard MD CT CERVICAL SPINE WO [...] midline. The ventricles and peripheral sulci are boiq-to-xqzamneeqb dilated. There is decreased attenuation in the [...] Deacon Justice MD 11/28/23 Final result Normal [facility] CT HEAD WO CONTRASTon 2023 CT [...] midline. The ventricles and peripheral sulci are jccg-zn-mzykmrdjzz dilated. There is decreased attenuation in the [...] Deacon Justice MD 11/28/23 Final result Normal [facility] 30on 11-22-2023 30 The patient is [...] and maintained or improved Outcome: Progressing Normal [facility] BASIC METABOLIC PANELon 08-3 Anion gap [Moles/Vol] 10 mmol/L Normal 7-20 [facility] Comment on above: Performed By: #### L [id number] ####[facility] ([facility])[address] [place] [address] Calcium [Mass/Vol] 8.0 mg/dL Low 8.6-10.3 [facility] Comment on above: Performed By: #### L [id number] ####[facility] ([facility])[address] [facility] [place] [address] Chloride [Moles/Vol] 111 mmol/L High 98-107 [facility] Comment on above: Performed By: #### L [id number] ####[facility] ([facility])[address] [facility] [place] [address] CO2 [Moles/Vol] 29 mmol/L Normal 21-31 [facility] Comment on above: Performed By: #### L [id number] ####[facility] ([facility])[address] [facility] [place] [address] Creatinine [Mass/Vol] 1.36 mg/dL High 0.70-1.30 [facility] Comment on above: Performed By: #### L [id number] ####[facility] ([facility])[address] [address] GLOMERULAR FILTRATION RATE ML/MIN/1.73 SQ M.PREDICTED 51.0 mL/min/1.73m*2 Low >60.0 [facility] Comment on above: Result Comment: The [facility]???s estimated glomerular filtration rate (eGFR) will [...] of individuals. Performed By: #### L [id number] ####[facility] ([facility])[address] [facility] [place] [address] Glucose [Mass/Vol] 150 mg/dL High 70-100 [facility] Comment on above: Performed By: #### L [id number] ####[facility] ([facility])[address] [address] Potassium [Moles/Vol] 3.3 mmol/L Low 3.5-5.1 [facility] Comment on above: Performed By: #### L [id number] ####[facility] ([facility])[address] [facility] [place] [address] Sodium [Moles/Vol] 147 mmol/L High 136-145 [facility] Comment on above: Performed By: #### L [id number] ####[facility] ([facility])[address] [place] [address] Urea nitrogen [Mass/Vol] 25 mg/dL Normal 7-25 [facility] Comment on above: Performed By: #### L [id number] ####[facility] ([facility])[address] [place] [address] UREA NITROGEN/CREATININ E (MASS RATIO) IN SER/PLAS 18.4 Normal [facility] Comment on above: Performed By: #### L [id number] ####[facility] ([facility])[address] [address] CBC WITH AUTO DIFFERENTIALon 11-22-2023 Basophils (Bld) [#/Vol] 0.06 10*3/uL Normal 0.00-0.20 [facility] Comment on above: Performed By: #### L [id number] ####[facility] ([facility])[address] [place] [address] Basophils/100 WBC (Bld) 0.7 % Normal 0.0-1.0 [facility] Comment on above: Performed By: #### L [id number] ####[facility] ([facility])[address] [place] [address] Eosinophils (Bld) [#/Vol] 0.37 10*3/uL Normal 0.00-0.50 [facility] Comment on above: Performed By: #### L [id number] ####[facility] ([facility])[address] [place] [address] Eosinophils/100 WBC (Bld) 4.2 % Normal 0.0-6.0 [facility] Comment on above: Performed By: #### L [id number] ####[facility] ([facility])[address] [place] [address] Erythrocyte distribution width (RBC) [Ratio] 15.2 % High 11.5-15.0 [facility] Comment on above: Performed By: #### L [id number] ####[facility] ([facility])[address] [place] [address] ERYTHROCYTE MEAN CORPUSCULAR HEMOGLOBIN CONCENTRATION (G/DL) BY AUTOMATED 32.6 g/dL Normal 32.0-35.0 [facility] Comment on above: Performed By: #### L [id number] ####[facility] ([facility])[address] [place] [address] Hematocrit (Bld) [Volume fraction] 38.3 % Low 39.0-55.0 [facility] Comment on above: Performed By: #### L [id number] ####[facility] ([facility])[address] [place] [address] Hemoglobin (Bld) [Mass/Vol] 12.5 g/dL Low 13.0-17.0 [facility] Comment on above: Performed By: #### L [id number] ####[facility] ([facility])[address] [place] [address] Immature granulocytes (Bld) [#/Vol] 0.15 10*3/uL Normal 0.00-0.20 [facility] Comment on above: Performed By: #### L [id number] ####[facility] ([facility])[address] [place] [address] Immature granulocytes/100 WBC (Bld) 1.7 % High 0.0-1.0 [facility] Comment on above: Performed By: #### L [id number] ####[facility] ([facility])[address] [place] [address] Lymphocytes (Bld) [#/Vol] 1.19 10*3/uL Low 1.20-4.00 [facility] Comment on above: Performed By: #### L [id number] ####[facility] ([facility])[address] [place] [address] Lymphocytes/100 WBC (Bld) 13.6 % Low 20.0-45.0 [facility] Comment on above: Performed By: #### L [id number] ####[facility] ([facility])[address] [place] [address] MCH (RBC) [Entitic mass] 32.4 pg Normal 27.0-33.0 [facility] Comment on above: Performed By: #### L [id number] ####[facility] ([facility])[address] [place] [address] MCV (RBC) [Entitic vol] 99.2 fL High 82.0-98.0 [facility] Comment on above: Performed By: #### L [id number] ####[facility] ([facility])[address] [place] [address] Monocytes (Bld) [#/Vol] 0.93 10*3/uL Normal 0.10-1.00 [facility] Comment on above: Performed By: #### L [id number] ####[facility] ([facility])[address] [place] [address] Monocytes/100 WBC (Bld) 10.6 % Normal 5.0-12.0 [facility] Comment on above: Performed By: #### L [id number] ####[facility] [place] [address] Neutrophils (Bld) [#/Vol] 6.06 10*3/uL Normal 1.60-7.60 [facility] Comment on above: Performed By: #### L [id number] ####[facility] [place] [address] Neutrophils/100 WBC (Bld) 69.2 % Normal 40.0-72.0 [facility] Comment on above: Performed By: #### L [id number] ####[facility] [place] [address] NRBC (PER 100 WBCS) BY AUTOMATED COUNT 0.0 % Normal 0 [facility] Comment on above: Performed By: #### L [id number] ####[facility] ([facility])[address] [place] [address] PLATELETS (10*3/UL) IN BLOOD AUTOMATED COUNT 167 10*3/uL Normal 150-400 [facility] Comment on above: Performed By: #### L [id number] ####[facility] [place] [address] RBC (Bld) [#/Vol] 3.86 10*6/uL Low 4.20-5.70 [facility] Comment on above: Performed By: #### L [id number] ####[facility] ([facility])[address] [place] [address] WBC (Bld) [#/Vol] 8.76 10*3/uL Normal 4.00-10.60 [facility] Comment on above: Performed By: #### L [id number] ####[facility] ([facility])[address] [place] [address] 30on 11-21-2023 30 The patient is Moderately Stable - Low risk of patient condition declining or worsening The patient's goals for the shift include rest/comfort The clinical goals for the shift include VSS Problem: Pain - Adult Goal: Verbalizes/displays adequate comfort level or baseline comfort level Outcome: Progressing Problem: Safety - Adult Goal: Free from fall injury Outcome: Progressing Normal [facility] 30 The patient is Moderately Stable [...] and maintained or improved Outcome: Progressing Normal [facility] BASIC METABOLIC PANELon 08-3 Anion gap [Moles/Vol] 9 mmol/L Normal 7- [facility] Comment on above: Performed By: #### L [id number] ####[facility] ([facility])[address] [facility] [place] [address] Calcium [Mass/Vol] 8.0 mg/dL Low 8.6-10.3 [facility] Comment on above: Performed By: #### L [id number] ####[facility] ([facility])[address] [facility] [place] [address] Chloride [Moles/Vol] 113 mmol/L High 98-107 [facility] Comment on above: Performed By: #### L [id number] ####[facility] ([facility])[address] [facility] [place] [address] CO2 [Moles/Vol] 27 mmol/L Normal - [facility] Comment on above: Performed By: #### L [id number] ####[facility] ([facility])[address] [facility] [place] [address] Creatinine [Mass/Vol] 1.47 mg/dL High 0.70-1.30 [facility] Comment on above: Performed By: #### L [id number] ####[facility] ([facility])[address] [place] [address] GLOMERULAR FILTRATION RATE ML/MIN/1.73 SQ M.PREDICTED 46.5 mL/min/1.73m*2 Low >60.0 [facility] Comment on above: Result Comment: The [facility]???s estimated glomerular filtration rate (eGFR) will [...] of individuals. Performed By: #### L [id number] ####[facility] ([facility])[address] [place] [address] Glucose [Mass/Vol] 135 mg/dL High 70-100 [facility] Comment on above: Performed By: #### L [id number] ####[facility] ([facility])[address] [place] [address] Potassium [Moles/Vol] 3.3 mmol/L Low 3.5-5.1 [facility] Comment on above: Performed By: #### L [id number] ####[facility] ([facility])[address] [place] [address] Sodium [Moles/Vol] 146 mmol/L High 136-145 [facility] Comment on above: Performed By: #### L [id number] ####[facility] ([facility])[address] [facility] [place] [address] Urea nitrogen [Mass/Vol] 35 mg/dL High 7-25 [facility] Comment on above: Performed By: #### L [id number] ####[facility] ([facility])[address] [facility] [place] [address] UREA NITROGEN/CREATININ E (MASS RATIO) IN SER/PLAS 23.8 Normal [facility] Comment on above: Performed By: #### L [id number] ####[facility] [place] [address] CBCon 11-21-2023 Erythrocyte distribution width (RBC) [Ratio] 15.3 % High 11.5-15.0 [facility] Comment on above: Performed By: #### L [id number] ####[facility] ([facility])[address] [place] [address] ERYTHROCYTE MEAN CORPUSCULAR HEMOGLOBIN CONCENTRATION (G/DL) BY AUTOMATED 32.7 g/dL Normal 32.0-35.0 [facility] Comment on above: Performed By: #### L [id number] ####[facility] ([facility])[address] [place] [address] Hematocrit (Bld) [Volume fraction] 38.5 % Low 39.0-55.0 [facility] Comment on above: Performed By: #### L [id number] ####[facility] [place] [address] Hemoglobin (Bld) [Mass/Vol] 12.6 g/dL Low 13.0-17.0 [facility] Comment on above: Performed By: #### L [id number] ####[facility] ([facility])[address] [place] [address] MCH (RBC) [Entitic mass] 32.1 pg Normal 27.0-33.0 [facility] Comment on above: Performed By: #### L [id number] ####[facility] ([facility])[address] [place] [address] MCV (RBC) [Entitic vol] 98.2 fL High 82.0-98.0 [facility] Comment on above: Performed By: #### L [id number] ####[facility] ([facility])[address] [place] [address] PLATELETS (10*3/UL) IN BLOOD AUTOMATED COUNT 172 10*3/uL Normal 150-400 [facility] Comment on above: Performed By: #### L [id number] ####[facility] ([facility])[address] [place] [address] RBC (Bld) [#/Vol] 3.92 10*6/uL Low 4.20-5.70 [facility] Comment on above: Performed By: #### L [id number] ####[facility] ([facility])[address] [place] [address] WBC (Bld) [#/Vol] 9.67 10*3/uL Normal 4.00-10.60 [facility] Comment on above: Performed By: #### L [id number] ####[facility] ([facility])[address] [place] [address] 30on 11-20-2023 30 The patient is Moderately Stable - Low risk of patient condition declining or worsening The patient's goals for the shift include restraints off The clinical goals for the shift include stable hemodynamics Over the shift, the patient did not make progress toward the following goals. Normal [facility] 30 Daily Case Managemen t Update [...] OT Six Click Score: 8 PT Recommendations: residential facility placement OT Recommendations: residential facility placement New Consults: Ancillary Consults (From admission, onward) Start Ordered 11/19/23 0924 Inpatient consult to Social Work Once Provider: (Not yet assigned) Question Answer Comment Select all services needed for the patient [facility] (30 day convalescent stay) Please indicate [...] OT? Answer: eval and treat 11/19/[address] [facility] CONSULTon 11-20-2023 CONSULT -- Attestation signed by Juan Pablo Liz MD at 11/21/2023 12:08 PM As noted. Patient to be staffed in person on 11/20 Psychiatry Consultation Service - New Assessment Patient Name: Nat Moore MRN / CSN: [id number] Date of / Age: 2 1940 / [...] mild cognitive impairment originally presenting to the [facility] Emergency Room on 11/15/2023 for evaluation of recurrent episodes of syncope secondary to spontaneous prolonged sinus pause. The patient was transferred via air ambulance from the [facility]. Psychiatry was consulted for management of agitation secondary to dementia . Emergency Room Course: Imaging/Workup: On arrival to [facility] the patient's blood pressure was 158/72 mmHg, pulse rate 78 bpm, regular, SpO2 100% on room air, respiratory rate 20/min, temperature 97.2. 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 CT of the abdomen with contrast done at [place] [facility] showed nonobstructive bowel gas pattern with [...] would con (more content not included)... Normal [facility] NURSNOTEon 11-20-2023 NURSNOTE Patient Name: Nat [...] voiced no concerns at this time. The commercial insurance underwriter urged the primary RN to call the rapid team if any concerns arise overnight. Chevy Hines RN Rapid Response Team Nurse [phone] 11/20/2023 11:34 PM Normal [facility] 30on 11-19-2023 30 Daily Case Managemen t Update Multidisciplinary rounds have been completed. Barriers to Discharge: 11/18- patient here from [facility] for recurrent episodes of syncope secondary to spontaneous prolonged sinus pauses. During his stay in [place] ED he suddenly developed bradycardia prolonged sinus [...] Select all services needed for the patient [facility] (30 day convalescent stay) Please indicate your approval for this care by adding your name here: REBECAKINGSTONGURDEEP [place] 11/19/23 0924 Therapy Orders (From admission, onward) Start Ordered 11/19/23 0757 PT eval and treat Until therapy completed Question: Reason for PT? Answer: eval and treat 11/19/23 0756 11/19/23 0757 OT eval and treat Until therapy completed Question: Reason for OT? Answer: eval and treat 11/19/23 0756 Normal [facility] BASIC METABOLIC PANELon 10-23 Anion gap [Moles/Vol] 11 mmol/L Normal 7-20 [facility] Comment on above: Performed By: #### L [id number] ####[facility] [place] [address] Calcium [Mass/Vol] 8.0 mg/dL Low 8.6-10.3 [facility] Comment on above: Performed By: #### L [id number] ####[facility] [place] [address] Chloride [Moles/Vol] 112 mmol/L High 98-107 [facility] Comment on above: Performed By: #### L [id number] ####[facility] [place] [address] CO2 [Moles/Vol] 26 mmol/L Normal 21-31 [facility] [facility] Comment on above: Performed By: #### L [id number] ####[facility] ([facility] [place] [address] Creatinine [Mass/Vol] 1.69 mg/dL High 0.70-1.30 [facility] Comment on above: Performed By: #### L [id number] ####[facility] ([facility])[address] [place] [address] GLOMERULAR FILTRATION RATE ML/MIN/1.73 SQ M.PREDICTED 39.3 mL/min/1.73m*2 Low >60.0 [facility] Comment on above: Result Comment: The [facility]???s estimated glomerular filtration rate (eGFR) will [...] of individuals. Performed By: #### L [id number] ####[facility] ([facility] [place] [address] Glucose [Mass/Vol] 122 mg/dL High 70-100 [facility] Comment on above: Performed By: #### L [id number] ####[facility] ([facility])[address] [place] [address] Potassium [Moles/Vol] 3.5 mmol/L Normal 3.5-5.1 [facility] Comment on above: Performed By: #### L [id number] ####[facility] ([facility])[address] [place] [address] Sodium [Moles/Vol] 145 mmol/L Normal 136-145 [facility] Comment on above: Performed By: #### L [id number] ####[facility] ([facility])[address] [place] [address] Urea nitrogen [Mass/Vol] 49 mg/dL High 7-25 [facility] Comment on above: Performed By: #### L [id number] ####[facility] ([facility])[address] [place] [address] UREA NITROGEN/CREATININ E (MASS RATIO) IN SER/PLAS 29.0 Normal [facility] Comment on above: Performed By: #### L [id number] ####[facility] ([facility])[address] [place] [address] CBCon 11-19-2023 Erythrocyte distribution width (RBC) [Ratio] 15.0 % Normal 11.5-15.0 [facility] Comment on above: Performed By: #### L [id number] #### [facility] ([facility]) [address] [place] [address] ERYTHROCYTE MEAN CORPUSCULAR HEMOGLOBIN CONCENTRATION (G/DL) BY AUTOMATED 32.8 g/dL Normal 32.0-35.0 [facility] Comment on above: Performed By: #### L [id number] #### [facility] ([facility] [address] [place] [address] Hematocrit (Bld) [Volume fraction] 38.7 % Low 39.0-55.0 [facility] Comment on above: Performed By: #### L [id number] #### [facility] ([facility]) [address] [place] [address] Hemoglobin (Bld) [Mass/Vol] 12.7 g/dL Low 13.0-17.0 [facility] Comment on above: Performed By: #### L [id number] #### [facility] ([facility]) [address] [place] [address] MCH (RBC) [Entitic mass] 31.8 pg Normal 27.0-33.0 [facility] Comment on above: Performed By: #### L [id number] #### [facility] ([facility]) [address] [address] MCV (RBC) [Entitic vol] 97.0 fL Normal 82.0-98.0 [facility] Comment on above: Performed By: #### L [id number] #### [facility] ([facility]) [address] [place] [address] PLATELETS (10*3/UL) IN BLOOD AUTOMATED COUNT 148 10*3/uL Low 150-400 [facility] Comment on above: Performed By: #### L [id number] #### [facility] ([facility]) [address] [place] [address] RBC (Bld) [#/Vol] 3.99 10*6/uL Low 4.20-5.70 [facility] Comment on above: Performed By: #### L [id number] #### [facility] ([facility]) [address] [place] [address] WBC (Bld) [#/Vol] 7.82 10*3/uL Normal 4.00-10.60 [facility] Comment on above: Performed By: #### L [id number] #### [facility] ([facility]) [address] [address] Marian 11-17-2023 ANES -- Attestation signed by [...] Information Date: 11/17/23 Procedure: Implant PPM Location: [facility] (Cath) Providers: Nora Rivera MD Clinical information reviewed: Allergies Meds Physical Exam Airway Mallampati: III Cardiovascular Rhythm: regular Rate: normal Dental Pulmonary Breath sounds clear to auscultation Abdominal Abdomen: soft Anesthesia Plan Additional Equipment Requests Normal [facility] BASIC METABOLIC PANELon - Anion gap [Moles/Vol] 11 mmol/L Normal 7-20 [facility] Comment on above: Performed By: #### L [id number] #### [facility] ([facility]) [address] [place] [address] Calcium [Mass/Vol] 8.0 mg/dL Low 8.6-10.3 [facility] Comment on above: Performed By: #### L [id number] #### [facility] ([facility]) [address] [place] [address] Chloride [Moles/Vol] 109 mmol/L High 98-107 [facility] Comment on above: Performed By: #### L [id number] #### [facility] ([facility]) [address] [place] [address] CO2 [Moles/Vol] 25 mmol/L Normal 21-31 [facility] Comment on above: Performed By: #### L [id number] #### [facility] ([facility]) [address] [place] [address] Creatinine [Mass/Vol] 1.42 mg/dL High 0.70-1.30 [facility] Comment on above: Performed By: #### L [id number] #### [facility] ([facility]) [address] [place] [address] GLOMERULAR FILTRATION RATE ML/MIN/1.73 SQ M.PREDICTED 48.4 mL/min/1.73m*2 Low >60.0 [facility] Comment on above: Result Comment: The [facility]???s estimated glomerular filtration rate (eGFR) will [...] individuals. Performed By: #### L [id number] #### [facility] ([facility]) [address] [place] [address] Glucose [Mass/Vol] 169 mg/dL High 70-100 [facility] Comment on above: Performed By: #### L [id number] #### [facility] ([facility]) [address] [place] [address] Potassium [Moles/Vol] 4.3 mmol/L Normal 3.5-5.1 [facility] Comment on above: Performed By: #### L [id number] #### [facility] ([facility]) [address] [place] [address] Sodium [Moles/Vol] 141 mmol/L Normal 136-145 [facility] Comment on above: Performed By: #### L [id number] #### [facility] ([facility]) [address] [place] [address] Urea nitrogen [Mass/Vol] 33 mg/dL High 7-25 [facility] Comment on above: Performed By: #### L [id number] #### [facility] ([facility]) [address] [place] [address] UREA NITROGEN/CREATININ E (MASS RATIO) IN SER/PLAS 23.2 Normal [facility] Comment on above: Performed By: #### L [id number] #### [facility] ([facility]) [address] [place] [address] CBCon 11-17-2023 Erythrocyte distribution width (RBC) [Ratio] 14.9 % Normal 11.5-15.0 [facility] Comment on above: Performed By: #### L [id number] #### [facility] ([facility]) [address] [place] [address] ERYTHROCYTE MEAN CORPUSCULAR HEMOGLOBIN CONCENTRATION (G/DL) BY AUTOMATED 32.2 g/dL Normal 32.0-35.0 [facility] Comment on above: Performed By: #### L [id number] #### [facility] ([facility]) [address] [place] [address] Hematocrit (Bld) [Volume fraction] 39.5 % Normal 39.0-55.0 [facility] Comment on above: Performed By: #### L [id number] #### [facility] ([facility]) [address] [place] [address] Hemoglobin (Bld) [Mass/Vol] 12.7 g/dL Low 13.0-17.0 [facility] Comment on above: Performed By: #### L [id number] #### [facility] ([facility]) [address] [place] [address] MCH (RBC) [Entitic mass] 31.8 pg Normal 27.0-33.0 [facility] Comment on above: Performed By: #### L [id number] #### [facility] ([facility]) [address] [place] [address] MCV (RBC) [Entitic vol] 99.0 fL High 82.0-98.0 [facility] Comment on above: Performed By: #### L [id number] #### [facility] ([facility]) [address] [place] [address] PLATELETS (10*3/UL) IN BLOOD AUTOMATED COUNT 157 10*3/uL Normal 150-400 [facility] Comment on above: Performed By: #### L [id number] #### [facility] ([facility]) [address] [place] [address] RBC (Bld) [#/Vol] 3.99 10*6/uL Low 4.20-5.70 [facility] Comment on above: Performed By: #### L [id number] #### [facility] ([facility]) [address] [place] [address] WBC (Bld) [#/Vol] 9.04 10*3/uL Normal 4.00-10.60 [facility] Comment on above: Performed By: #### L [id number] #### [facility] ([facility]) [address] [place] [address] HEMOGLOBIN A1Con 11-17-2023 Glucose [Mass/Vol] 114 mg/dL Normal [facility] Comment on above: Order Comment: NO [facility]ANT Performed By: #### L [id number] ####[facility] ([facility])[address] [place] [address] HbA1c (Bld) [Mass fraction] 5.6 % Normal 4.0-6.0 [facility] Comment on above: Order Comment: NO [facility] RIANT Performed By: #### L [id number] ####[facility] ([facility])[address] [place] [address] HPon 11-17-2023 HP -- Attestation signed by [...] placement of PPM in the AM. Normal [facility] LIPID PANELon 11-17-2023 CHOL/HDL 3.8 mg/dL Normal [facility] Comment on above: Performed By: #### L [id number] ####[facility] ([employer])[address] [place] [address] Cholesterol [Mass/Vol] 127 mg/dL Normal 120-200 [facility] Comment on above: Performed By: #### L [id number] ####[facility] [employer])[address] [place] [address] Magnesium [Mass/Vol] 81 mg/dL Normal 40-149 [facility] Comment on above: Result Comment: TRIG LYCERIDE REFERENCE RANGE: 20 YEARS AND OLDER CARDIOVASCULAR RISK LESS THAN 150 mg/dL LOW RISK 150 TO 199 mg/dL BORDERLINE RISK 200 mg/dL AND GREATER HIGH RISK Performed By: #### L [id number] ####[facility] (BEAKER)[address] [place] [address] Magnesium [Mass/Vol] 78 mg/dL Normal 0-160 [facility] Comment on above: Performed By: #### L [id number] ####[facility] ([facility] [place] [address] Magnesium [Mass/Vol] 33 mg/dL Normal 23-92 [facility] Comment on above: Performed By: #### L [id number] ####[facility] ([facility] [place] [address] NON HDL CHOL. (LDL+VLDL) 94 Normal [facility] Comment on above: Performed By: #### L [id number] ####[facility] ([facility])[address] [facility] [place] [address] TOTAL VLDL-C 16 mg/dL Normal 0-40 [facility] Comment on above: Performed By: #### L [id number] ####[facility] ([facility])[address] [place] [address] LIPOPROTEIN A (LPA)on 2023 Magnesium [Mass/Vol] 23 mg/dL Normal <=29 [facility] Comment on above: Result Comment: Perf ormed By: [employer] [address] [place] [id number] Plasterer Spot: Rivas Castillo MD, PhD CLIA Number: [id number] Performed By: #### L [id number] #### [facility] ([facility]) [address] [place] [address] MAGNESIUMon 11-17-2023 Magnesium [Mass/Vol] 2.0 mg/dL Normal 1.9-2.7 [facility] Comment on above: Performed By: #### L [id number] ####[facility] ([facility] [place] [address] PHOSPHORUSon 11-17-2023 Magnesium [Mass/Vol] 3.1 mg/dL Normal 2.5-5.0 [facility] Comment on above: Performed By: #### L [id number] #### [facility] ([facility]) [address] [place] [address] 30on 11-16-2023 30 The patient is Moderately [...] or at baseline Outcome: Not Progressing Normal [facility] ANESon 11-16-2023 ANES Patient: Nat Moore [...] Additional Equipment Requests Jovita Sanchez MD, MPH, FACC, [facility], [facility] Interventional Cardiology Pager Email: [email or web address] Normal [facility] B-TYPE NATRIURETIC PEPTIDEon 11-16-2023 Natriuretic peptide B (Bld) [Mass/Vol] 103 pg/mL High 0-100 [facility] Comment on above: Performed By: #### L [id number] #### [facility] ([facility]) [address] [place] [address] BASIC METABOLIC PANELon 10-23 Anion gap [Moles/Vol] 10 mmol/L Normal 7-20 [facility] Comment on above: Performed By: #### L [id number] #### [facility] ([facility]) [address] [place] [address] Calcium [Mass/Vol] 8.2 mg/dL Low 8.6-10.3 [facility] Comment on above: Performed By: #### L [id number] #### [facility] ([facility]) [address] [place] [address] Chloride [Moles/Vol] 108 mmol/L High 98-107 [facility] Comment on above: Performed By: #### L [id number] #### [facility] ([facility]) [address] [place] [address] CO2 [Moles/Vol] 27 mmol/L Normal 21-31 [facility] Comment on above: Performed By: #### L [id number] #### [facility] ([facility]) [address] [place] [address] Creatinine [Mass/Vol] 1.53 mg/dL High 0.70-1.30 [facility] Comment on above: Performed By: #### L [id number] #### [facility] ([facility]) [address] [place] [address] GLOMERULAR FILTRATION RATE ML/MIN/1.73 SQ M.PREDICTED 44.3 mL/min/1.73m*2 Low >60.0 [facility] Comment on above: Result Comment: [facility]???s estimated glomerular filtration rate (eGFR) will [...] individuals. Performed By: #### L [id number] #### [facility] ([facility]) [address] [place] [address] Glucose [Mass/Vol] 124 mg/dL High 70-100 [facility] Comment on above: Performed By: #### L [id number] #### [facility] ([facility]) [address] [place] [address] Potassium [Moles/Vol] 4.3 mmol/L Normal 3.5-5.1 [facility] Comment on above: Performed By: #### L [id number] #### [facility] ([facility]) [address] [place] [address] Sodium [Moles/Vol] 141 mmol/L Normal 136-145 [facility] Comment on above: Performed By: #### L [id number] #### [facility] ([facility]) [address] [place] [address] Urea nitrogen [Mass/Vol] 31 mg/dL High 7-25 [facility] Comment on above: Performed By: #### L [id number] #### [facility] ([facility] [address] [place] [address] UREA NITROGEN/CREATININ E (MASS RATIO) IN SER/PLAS 20.3 Normal [facility] Comment on above: Performed By: #### L [id number] #### [facility] ([facility]) [address] [place] [address] Anion gap [Moles/Vol] 10 mmol/L Normal 7-20 [facility] Comment on above: Performed By: #### L [id number] #### [facility] ([facility]) [address] [place] [address] Calcium [Mass/Vol] 8.1 mg/dL Low 8.6-10.3 [facility] Comment on above: Performed By: #### L [id number] #### [facility] ([facility]) [address] [place] [address] Chloride [Moles/Vol] 108 mmol/L High 98-107 [facility] Comment on above: Performed By: #### L [id number] #### [facility] ([facility]) [address] [place] [address] CO2 [Moles/Vol] 27 mmol/L Normal 21-31 [facility] Comment on above: Performed By: #### L [id number] #### [facility] ([facility]) [address] [place] [address] Creatinine [Mass/Vol] 1.40 mg/dL High 0.70-1.30 [facility] Comment on above: Performed By: #### L [id number] #### [facility] ([facility]) [address] [place] [address] GLOMERULAR FILTRATION RATE ML/MIN/1.73 SQ M.PREDICTED 49.3 mL/min/1.73m*2 Low >60.0 [facility] Comment on above: Result Comment: [facility]???s estimated glomerular filtration rate (eGFR) will [...] individuals. Performed By: #### L [id number] #### [facility] ([facility]) [address] [place] [address] Glucose [Mass/Vol] 136 mg/dL High 70-100 [facility] Comment on above: Performed By: #### L [id number] #### [facility] ([facility]) [address] [place] [address] Potassium [Moles/Vol] 4.3 mmol/L Normal 3.5-5.1 [facility] Comment on above: Performed By: #### L [id number] #### [facility] ([facility]) [address] [place] [address] Sodium [Moles/Vol] 141 mmol/L Normal 136-145 [facility] Comment on above: Performed By: #### L [id number] #### [facility] ([facility]) [address] [place] [address] Urea nitrogen [Mass/Vol] 27 mg/dL High 7-25 [facility] Comment on above: Performed By: #### L [id number] #### [facility] [address] [place] [address] UREA NITROGEN/CREATININ E (MASS RATIO) IN SER/PLAS 19.3 Normal [facility] Comment on above: Performed By: #### L [id number] #### [facility] ([facility]) [address] [place] [address] CBCon 11-16-2023 Erythrocyte distribution width (RBC) [Ratio] 15.1 % High 11.5-15.0 [facility] Comment on above: Performed By: #### L [id number] #### [facility] ([facility]) [address] [place] [address] ERYTHROCYTE MEAN CORPUSCULAR HEMOGLOBIN CONCENTRATION (G/DL) BY AUTOMATED 32.4 g/dL Normal 32.0-35.0 [facility] Comment on above: Performed By: #### L [id number] #### [facility] ([facility]) [address] [place] [address] Hematocrit (Bld) [Volume fraction] 36.7 % Low 39.0-55.0 [facility] Comment on above: Performed By: #### L [id number] #### [facility] [address] [place] [address] Hemoglobin (Bld) [Mass/Vol] 11.9 g/dL Low 13.0-17.0 [facility] Comment on above: Performed By: #### L [id number] #### [facility] [address] [place] [address] MCH (RBC) [Entitic mass] 32.0 pg Normal 27.0-33.0 [facility] Comment on above: Performed By: #### L [id number] #### [facility] ([facility]AKER) [address] [place] [address] MCV (RBC) [Entitic vol] 98.7 fL High 82.0-98.0 [facility] Comment on above: Performed By: #### L [id number] #### [facility] ([facility]) [address] [place] [address] PLATELETS (10*3/UL) IN BLOOD AUTOMATED COUNT 157 10*3/uL Normal 150-400 [facility] Comment on above: Performed By: #### L [id number] #### [facility] ([facility]) [address] [place] [address] RBC (Bld) [#/Vol] 3.72 10*6/uL Low 4.20-5.70 [facility] Comment on above: Performed By: #### L [id number] #### [facility] ([facility]) [address] [place] [address] WBC (Bld) [#/Vol] 8.83 10*3/uL Normal 4.00-10.60 [facility] Comment on above: Performed By: #### L [id number] #### [facility] ([facility]) [address] [place] [address] on 11-16-2023 H&P reviewed. Apparently this morning, [...] wishes to proceed. Jovita Sanchez MD, MPH, [facility], [facility], [facility] Interventional Cardiology Pager Email: [email or web address] Normal [facility] HP -- Attestation signed by Art Mckoy [...] which are billed separately. Art Mckoy MD [facility] Pulmonary and Critical Care Medicine Adult ICU History & Physical Patient - Nat Moore Age - 83 y.o. - 1940 [facility] # - [id number] Date of Admission - 11/15/2023 2:42 PM Chief Complaint Syncope History of Present Illness Nat Moore is a an 83-year-old gentleman with PMH significant for type 2 diabetes mellitus, essential hypertension, hyperlipidemia, CKD stage IIIa, bilateral lower extremity edema on diuretic therapy, osteoarthritis, depression and mild cognitive impairment was initially admitted to the hospitalist service from [place] due to recurrent episodes of syncope secondary [...] his presenting complaints. During his stay in [place] ED he suddenly developed bradycardia prolonged sinus [...] of the abdomen with contrast done at [place] ED showed nonobstructive bowel gas pattern with [...] planning on taking the patient to the [facility] tomorrow for possible transvenous pacemaker placement. PMH: [...] sodium (C (more content not included)... Normal [facility] LACTIC ACID WITH 4 HOUR REFL EXon 11-16-2023 LACTATE (MMOL/L) IN SER/PLAS 1.2 mmol/L Normal 0.5-2.2 [facility] Comment on above: Performed By: #### L [id number] #### [facility] ([facility]) [address] [place] [address] MAGNESIUMon 11-16-2023 Magnesium [Mass/Vol] 2.1 mg/dL Normal 1.9-2.7 [facility] Comment on above: Performed By: #### L [id number] #### [facility] ([facility]) [address] [place] [address] Magnesium [Mass/Vol] 1.7 mg/dL Low 1.9-2.7 [facility] Comment on above: Performed By: #### L [id number] #### [facility] ([facility]) [address] [place] [address] PRO-BNPon 11-16-2023 Natriuretic peptide B (Bld) [Mass/Vol] 576 pg/mL High 0-300 [facility] Comment on above: Result Comment: An a ge-independent cutoff point of 300 pg/ml has a 98% negative predictive value excluding acute heart failure. Test Performed by [facility] [address] [place] [address] - Released 11/16/2023 20:27 Performed By: #### L [id number] ####[facility] [id number] [place] [address] TSH3 REFLEX TO FT4on 024 THYROTROPIN (MIU/L) IN SER/PLAS BY DETECTION LIMIT <= 0.05 MIU/L 1.67 mIU/L Normal 0.34-5.60 [facility] Comment on above: Performed By: #### L [id number] #### [facility] (BEAKER) [address] [place] [address] 30on 11-15-2023 30 The patient is Moderately [...] and maintained or improved Outcome: Progressing Normal [facility] CBCon 11-15-2023 Erythrocyte distribution width (RBC) [Ratio] 15.2 % High 11.5-15.0 [facility] Comment on above: Performed By: #### L [id number] ####[facility] ([facility] [place] [address] ERYTHROCYTE MEAN CORPUSCULAR HEMOGLOBIN CONCENTRATION (G/DL) BY AUTOMATED 32.8 g/dL Normal 32.0-35.0 [facility] Comment on above: Performed By: #### L [id number] ####[facility] (BEAKER)[address] [place] [address] Hematocrit (Bld) [Volume fraction] 37.8 % Low 39.0-55.0 [facility] Comment on above: Performed By: #### L [id number] ####[facility] (BEAKER)[address] [place] [address] Hemoglobin (Bld) [Mass/Vol] 12.4 g/dL Low 13.0-17.0 [facility] Comment on above: Performed By: #### L [id number] ####[facility] (BEAKER)[address] [place] [address] MCH (RBC) [Entitic mass] 31.9 pg Normal 27.0-33.0 [facility] Comment on above: Performed By: #### L [id number] ####[facility] (BEAKER)[address] [place] [address] MCV (RBC) [Entitic vol] 97.2 fL Normal 82.0-98.0 [facility] Comment on above: Performed By: #### L [id number] ####[facility] ([facility])[address] [place] [address] PLATELETS (10*3/UL) IN BLOOD AUTOMATED COUNT 172 10*3/uL Normal 150-400 [facility] Comment on above: Performed By: #### L [id number] ####[facility] ([facility])[address] [place] [address] RBC (Bld) [#/Vol] 3.89 10*6/uL Low 4.20-5.70 [facility] Comment on above: Performed By: #### L [id number] ####[facility] ([facility])[address] [place] [address] WBC (Bld) [#/Vol] 8.89 10*3/uL Normal 4.00-10.60 [facility] Comment on above: Performed By: #### L [id number] ####[facility] ([facility])[address] [place] [address] COMPREHENSIVE METABOLIC PANE Dmitri 11-15-2023 Albumin [Mass/Vol] 3.7 g/dL Normal 3.5-5.7 [facility] Comment on above: Performed By: #### L [id number] #### [facility] ([facility]) [address] [place] [address] ALP [Catalytic activity/Vol] 70 U/L Normal 34-104 [facility] Comment on above: Performed By: #### L [id number] #### [facility] [address] [place] [address] ALT [Catalytic activity/Vol] 7 U/L Normal 7-52 [facility] Comment on above: Performed By: #### L [id number] #### [facility] [address] [place] [address] Anion gap [Moles/Vol] 9 mmol/L Normal 7-20 [facility] Comment on above: Performed By: #### L [id number] #### [facility] (BEAKER) [address] [place] [address] AST [Catalytic activity/Vol] 11 U/L Low 13-39 [facility] Comment on above: Performed By: #### L [id number] #### [facility] (BEAKER) [address] [place] [address] Bilirubin [Mass/Vol] 0.6 mg/dL Normal 0.3-1.0 [facility] Comment on above: Performed By: #### L [id number] #### [facility] (BEAKER) [address] [place] [address] Calcium [Mass/Vol] 8.2 mg/dL Low 8.6-10.3 [facility] Comment on above: Performed By: #### L [id number] #### [facility] (BEAKER) [address] [place] [address] Chloride [Moles/Vol] 107 mmol/L Normal 98-107 [facility] Comment on above: Performed By: #### L [id number] #### [facility] (BEAKER) [address] [place] [address] CO2 [Moles/Vol] 29 mmol/L Normal 21-31 [facility] Comment on above: Performed By: #### L [id number] #### [facility] (BEAKER) [address] [place] [address] Creatinine [Mass/Vol] 1.37 mg/dL High 0.70-1.30 [facility] Comment on above: Performed By: #### L [id number] #### [facility] (BEAKER) [address] [place] [address] GLOMERULAR FILTRATION RATE ML/MIN/1.73 SQ M.PREDICTED 50.6 mL/min/1.73m*2 Low >60.0 [facility] Comment on above: Result Comment: The [facility]???s estimated glomerular filtration rate (eGFR) will [...] individuals. Performed By: #### L [id number] #### [facility] ([facility]) [address] [place] [address] Glucose [Mass/Vol] 120 mg/dL High 70-100 [facility] Comment on above: Performed By: #### L [id number] #### [facility] ([facility]) [address] [place] [address] Potassium [Moles/Vol] 4.1 mmol/L Normal 3.5-5.1 [facility] Comment on above: Performed By: #### L [id number] #### [facility] ([facility]) [address] [place] [address] Protein [Mass/Vol] 6.0 g/dL Normal 6.0-8.3 [facility] Comment on above: Performed By: #### L [id number] #### [facility] ([facility]) [address] [place] [address] Sodium [Moles/Vol] 141 mmol/L Normal 136-145 [facility] Comment on above: Performed By: #### L [id number] #### [facility] ([facility]) [address] [place] [address] Urea nitrogen [Mass/Vol] 26 mg/dL High 7-25 [facility] Comment on above: Performed By: #### L [id number] #### [facility] ([facility]) [address] [place] [address] UREA NITROGEN/CREATININ E (MASS RATIO) IN SER/PLAS 19.0 Normal [facility] Comment on above: Performed By: #### L [id number] #### [facility] (BEAKER) [address] [place] [address] CONSULTon 11-15-2023 CONSULT Division of Cardiovascular Medicine Interventional Cardiology Consult Chief Complaint: Transfer from [place] HPI: 83 yo with h/o HTN, CKD, dyslipidemia presented to [facility] with c/o chest and back pain. While being evaluated he had episodes of prolonged sinus pauses (12-18 sec?) with loss of consciousness and vomiting. He was Life flighted to [facility]. On arrival , I evaluated him at [...] infarctions or CHF. Does not see a crown wheel assembler. Patient Active Problem List Diagnosis Syncope and [...] Daily, Nils Zimmer MD, 40 mg at 11/15/23 182 sennosides-docusate sodium (Brittney-Colace) 8.6-50 mg per tablet [...] Daily, Nils Zimmer MD, 0.4 mg at 11/15/231824 Last Recorded Vitals Patient Vitals for the [...] plan on (more content not included)... Normal [facility] CT HEAD WO IV CONTRASTon CT [...] GAGANDEEP CLAUDIO MD. 3 Invalid Interpretation Code [facility] HPon 11-15-2023 Division of Cardiovascular Medicine Interventional Cardiology Consult Chief Complaint: Transfer from [place] HPI: 83 yo with h/o HTN, CKD, dyslipidemia presented to [facility] with c/o chest and back pain. While being evaluated he had episodes of prolonged sinus pauses (12-18 sec?) with loss of consciousness and vomiting. He was Life flighted to [facility]. On arrival , I evaluated him at [...] infarctions or CHF. Does not see a crown wheel assembler. Patient Active Problem List Diagnosis Syncope and [...] Daily, Nils Zimmer MD, 0.4 mg at 11/15/231824 Last Recorded Vitals Patient Vitals for the [...] plan on (more content not included)... Normal [facility] MAGNESIUMon 11-15-2023 Magnesium [Mass/Vol] 1.7 mg/dL Low 1.9-2.7 [facility] Comment on above: Performed By: #### L [id number] #### [facility] (BEAKER) [address] [place] [address] NURSNOTEon 11-15-2023 NURSNOTE Medical Claims Manager reach out to Cardiology (Dr. Figueroa) to notify her of the pt transferring to MICU due to change in condition and code blue being called. She asked if the patient was paced at bedside and nurse replied no but pt was transferred and will be paced in MICU. Normal [facility] NURSNOTE Medical Claims Manager attempted to reach out to family via home number in chart and it wasn't in service. Charge nurse MIGUEL Lloyd was notified and MICU was notified as well by MIGUEL Lloyd. Normal [facility] NURSNOTE Bedside report given to MIGUEL Ghosh prior to transfer to MICU due to change in condition and code blue being called for asystole lasting 10.19 seconds. Normal [facility] ELIEL Spoke with Dr. Wendy dominguez [...] done and we'll go from there. Normal [facility] TROPONIN Ion 11-15-2023 Troponin I.cardiac [Mass/Vol] 0.01 ng/mL Normal 0.00-0.04 [facility] Comment on above: Performed By: #### L [id number] #### [facility] (BEAKER) [address] [place] [address] Urology Office/Clinic Noteon 11-12-2023 Urology Office/Clinic Note [...] call if too cost prohibitive, sent to [employer] Jillian Hutchins -f/up in 3 mos 2. [...] 23-valent vac (more content not included)... Normal [facility] Comment on [...] APRN, [place] [facility] Where: [facility] [place] [address] [place] [address]- You Need to Schedule the Following Appointments Follow Up with RAUL Ingram APRN, [place] [facility], FAM, URL When: Comments: f/up in 3 mos [...] Leaking ur (more content not included)... Normal [facility] Patient Letter FTon 2023 [place] [facility] [place] October 14, [address] [place] [address] : 1940 Dear Nat, You missed your [...] any future cancellations. Sincerely, [facility] [address] [facility], [place] [address] [facility] Patient Letter FTon 2023 Patient Letter FT May 13, 2023 NAT Tran [facility] [address] [place] [address] : 1940 Dear Nat, You missed your [...] [facility] [address], [place] [address] Normal [facility] BNPon 07-27-2022 Natriuretic peptide B (Bld) [Mass/Vol] 178.0 pg/mL Normal <=1,800.0 [facility] Comment on above: Performed By: #### C MP, BNP, CMADM #### [facility] [address] [place] [address] Dr. Loyd Parks CARDIAC SPARKLE ADMITon 023 CK [Catalytic activity/Vol] 50 U/L Normal 39-308 [facility] Comment on above: Performed By: #### C MP, BNP, CMADM #### [facility] [address] [place] [address] Dr. Loyd Parks CK.MB [Mass/Vol] 0.83 ng/mL Normal <=3.60 [facility] Comment on above: Performed By: #### C MP, BNP, CMADM #### [facility] [address] [place] [address] Dr. Loyd Parks HSTROP 6.3 pg/mL Normal 4.0-76.1 [facility] Comment on above: Result Comment: CUT- OFF POINTS HAVE BEEN ESTABLISHED BASED ON THE FOURTH UNIVERSAL DEFINITIONS OF MYOCARDIAL INFARCTION. THE UPPER REFERENCE LIMIT (URL) OF TROPONIN, DEFINED THE 99TH PERCENTILE OF cTnI DISTRIBUTION IN A REFERENCE POPULATION, HAS BEEN CONFIRMED THE DECISION THRESHOLD FOR DC DIAGNOSIS. Performed By: #### C MP, BNP, CMADM #### [facility] [address] [place] [address] Dr. Loyd Parks WM 121 ng/mL Critically high 16-96 [facility] Comment on above: Performed By: #### C MP, BNP, CMADM #### [facility] [address] [place] [address] Dr. Loyd Parks CBC AUTO DIFFon 07-27-2022 BASO # 0.1 103/ul Normal 0.0-0.1 [facility] Comment on above: Performed By: #### C BC #### [facility] [address] [address] [address] Loyd Parks Basophils/100 WBC (Bld) 0.6 % Normal 0.2-2.0 [facility] Comment on above: Performed By: #### C BC #### [facility] [address] [address] [address] Loyd Parks EO # 0.5 103/ul Normal 0.0-0.7 [facility] Comment on above: Performed By: #### C BC #### [facility] [address] [address] [address] Loyd Parks Eosinophils/100 WBC (Bld) 4.8 % Normal 0.9-7.0 [facility] Comment on above: Performed By: #### C BC #### [facility] [address] [address] [address] Loyd Parks Erythrocyte distribution width (RBC) [Ratio] 13.5 % Normal 11.0-15.0 [facility] Comment on above: Performed By: #### C BC #### [facility] [address] [address] [address] Loyd Parks Hematocrit (Bld) [Volume fraction] 39.7 % Critically low 42.0-54.0 [facility] Comment on above: Performed By: #### C BC #### [facility] [address] [address] [address] Loyd Parks Hemoglobin (Bld) [Mass/Vol] 13.1 g/dL Critically low 14.0-18.0 [facility] Comment on above: Performed By: #### C BC #### [facility] [address] [address] [address] Loyd Parks IG # 0.05 10e3/ul Critically high 0.00-0.03 [facility] Comment on above: Performed By: #### C BC #### [facility] [address] [place] [address] Dr. Loyd Parks IG % 0.5 % Normal 0.0-0.5 [facility] Comment on above: Performed By: #### C BC #### [facility] [address] [place] [address] Dr. Loyd Parks LYMPH # 1.4 103/ul Normal 1.2-3.8 [facility] Comment on above: Performed By: #### C BC #### [facility] [address] [place] [address] Dr. Loyd Parks Lymphocytes/100 WBC (Bld) 14.1 % Critically low 20.5-60.0 [facility] Comment on above: Performed By: #### C BC #### [facility] [address] [place] [address] Dr. Loyd Parks MANUAL DIFF REQ NO Normal [facility] Comment on above: Performed By: #### C BC #### [facility] [address] [place] [address] Dr. Loyd Parks MCH (RBC) [Entitic mass] 31.6 pg Normal 25.9-34.0 [facility] Comment on above: Performed By: #### C BC #### [facility] [address] [place] [address] Dr. Loyd Parks MCHC (RBC) [Mass/Vol] 33.0 g/dL Normal 29.9-35.2 [facility] Comment on above: Performed By: #### C BC #### [facility] [address] [place] [address] Dr. Loyd Parks MCV (RBC) [Entitic vol] 95.7 fL Critically high 80.0-94.0 [facility] Comment on above: Performed By: #### C BC #### [facility] [address] [place] [address] Dr. Loyd Parks MONO # 1.0 103/ul Critically high 0.3-0.8 [facility] Comment on above: Performed By: #### C BC #### [facility] [address] [place] [address] Dr. Loyd Parks Monocytes/100 WBC (Bld) 9.7 % Normal 1.7-12.0 [facility] Comment on above: Performed By: #### C BC #### [facility] [address] [place] [address] Dr. Loyd Parks NEUT # 7.2 103/ul Critically high 1.4-6.5 [facility] Comment on above: Performed By: #### C BC #### [facility] [address] [place] [address] Dr. Loyd Parks Neutrophils/100 WBC (Bld) 70.3 % Normal 43.0-75.0 [facility] Comment on above: Performed By: #### C BC #### [facility] [address] [place] [address] Dr. Loyd Parks Platelet mean volume (Bld) [Entitic vol] 10.8 fL Normal 9.5-13.5 [facility] Comment on above: Performed By: #### C BC #### [facility] [address] [place] [address] Dr. Loyd Parks PLT 199 103/ul Normal 150-450 [facility] Comment on above: Performed By: #### C BC #### [facility] [address] [place] [address] Dr. Loyd Parks RBC 4.15 106/ul Critically low 4.70-6.10 [facility] Comment on above: Performed By: #### C BC #### [facility] [address] [place] [address] Dr. Loyd Parks WBC 10.2 103/ul Normal 4.0-11.0 [facility] Comment on above: Performed By: #### C BC #### [facility] [address] [place] [address] Dr. Loyd Parks CULTURE BLOODon 07-27-2022 Microscopic examination of blood, culture Culture Observations: NO GROWTH AT 5 DAYS. Normal [facility] Comment on above: Performed By: #### E RUR #### [facility] [address] [place] [address] Dr. Loyd Parks Covid-19 PCR (CVDTB)on SARS-CoV-2 (COVID-19) RNA SAUNDRA+probe Ql (Unsp spec) Not detected Normal NOT DETECTED [facility] Comment on above: Result Comment: This test is not yet approved or cleared by the [place] FDA. When there are no FDA-approved or cleared tests available, and other criteria are met, FDA can make tests available under an emergency access mechanism called an Emergency Use Authorization (EUA). The EUA for this test is supported by the [place] of Health and Human Service's (HHS's) declaration [...] [facility] [address] [place] [address] Dr. Loyd Parks LACTATE/LACTIC ACIDon 2022 Lactate [Moles/Vol] 2.2 mmol/L Critically high 0.4-2.0 [facility] Comment on above: Performed By: #### C MP, BNP, CMADM #### [facility] [address] [place] [address] Dr. Loyd Parks PROF 14(COMP METB)on 023 Albumin [Mass/Vol] 3.3 g/dL Critically low 3.4-5.0 [facility] Comment on above: Performed By: #### C MP, BNP, CMADM #### [facility] [address] [place] [address] Dr. Loyd Parks Albumin/Globulin [Mass ratio] 0.9 {ratio} Normal [facility] Comment on above: Performed By: #### C MP, BNP, CMADM #### [facility] [address] [address] [address] Loyd Parks ALP [Catalytic activity/Vol] 91 U/L Normal 46-116 [facility] Comment on above: Performed By: #### C MP, BNP, CMADM #### [facility] [address] [address] [address] Loyd Parks ALT [Catalytic activity/Vol] 18 U/L Normal 16-63 [facility] Comment on above: Performed By: #### C MP, BNP, CMADM #### [facility] [address] [address] [address] Loyd Parks Anion gap [Moles/Vol] 12.2 mmol/L Normal [facility] Comment on above: Performed By: #### C MP, BNP, CMADM #### [facility] [address] [place] [address] Dr. Loyd Parks AST [Catalytic activity/Vol] 15 U/L Normal 15-37 [facility] Comment on above: Performed By: #### C MP, BNP, CMADM #### [facility] [address] [place] [address] Dr. Loyd Parks Bilirubin [Mass/Vol] 0.4 mg/dL Normal 0.2-1.0 [facility] Comment on above: Performed By: #### C MP, BNP, CMADM #### [facility] [address] [place] [address] Dr. Loyd Parks Calcium [Mass/Vol] 8.7 mg/dL Normal 8.5-10.1 [facility] Comment on above: Performed By: #### C MP, BNP, CMADM #### [facility] [address] [place] [address] Dr. Loyd Parks Chloride [Moles/Vol] 105 mmol/L Normal 98-107 [facility] Comment on above: Performed By: #### C MP, BNP, CMADM #### [facility] [address] [place] [address] Dr. Loyd Parks CO2 [Moles/Vol] 28.0 mmol/L Normal 21.0-32.0 [facility] Comment on above: Performed By: #### C MP, BNP, CMADM #### [facility] [address] [address] [address] Loyd Parks Creatinine [Mass/Vol] 2.25 mg/dL Critically high 0.70-1.30 [facility] Comment on above: Performed By: #### C MP, BNP, CMADM #### [facility] [address] [address] [address] Loyd Parks EGFR-AF MEXICAN 34 mL/min/1.73m2 Critically low >=60 [facility] Comment on above: Performed By: #### C MP, BNP, CMADM #### [facility] [address] [place] [address] Dr. Loyd Parks EGFR-NON AF MEXICAN 28 mL/min/1.73m2 Critically low >=60 [facility] Comment on above: Performed By: #### C MP, BNP, CMADM #### [facility] [address] [place] [address] Dr. Loyd Parks Globulin (S) [Mass/Vol] 3.8 g/dL Normal [facility] Comment on above: Performed By: #### C MP, BNP, CMADM #### [facility] [address] [place] [address] Dr. Loyd Parks Glucose [Mass/Vol] 88 mg/dL Normal 74-106 [facility] Comment on above: Performed By: #### C MP, BNP, CMADM #### [facility] [address] [place] [address] Dr. Loyd Parks Potassium [Moles/Vol] 4.2 mmol/L Normal 3.5-5.1 [facility] Comment on above: Performed By: #### C MP, BNP, CMADM #### [facility] [address] [place] [address] Dr. Loyd Parks Protein [Mass/Vol] 7.1 g/dL Normal 6.4-8.2 [facility] Comment on above: Performed By: #### C MP, BNP, CMADM #### [facility] [address] [place] [address] Dr. Loyd Parks Sodium [Moles/Vol] 141 mmol/L Normal 136-145 [facility] Comment on above: Performed By: #### C MP, BNP, CMADM #### [facility] Laboratory [address] [place] [address] Dr. Loyd Parks Urea nitrogen [Mass/Vol] 36.0 mg/dL Critically high 7.0-18.0 [facility] Comment on above: Performed By: #### C MP, BNP, CMADM #### [facility] Laboratory [address] [place] [address] Dr. Loyd Parks Urea nitrogen/Creatinin e [Mass ratio] 16.0 mg/mg Normal [facility] Comment on above: Performed By: #### C MP, BNP, CMADM #### [facility] Laboratory [address] [place] [address] Dr. Loyd Parks PROTIMEon 07-27-2022 INR Coag (PPP) [Relative time] 0.95 {INR} Normal [facility] Comment on above: Performed By: #### P T, PTT #### [facility] Laboratory [address] [place] [address] Dr. Loyd Parks INR GUIDELINES SEE BELOW Normal [facility] Comment on above: Result Comment: MARIE RED INR: 2.0 - 3.0 CONDITIONS NOT LISTED BELOW 2.5 - 3.5 FOR PROSTHETIC HEART VALVE REPLACEMENT 2.5 - 3.5 RECURRENT THROMBOSIS Performed By: #### P T, PTT #### [facility] Laboratory [address] [place] [address] Dr. Loyd Parks PT Coag (PPP) [Time] 10.1 s Normal 9.0-11.6 [facility] Comment on above: Performed By: #### P T, PTT #### [facility] Laboratory [address] [place] [address] Dr. Loyd Parks PTTon 07-27-2022 aPTT Coag (Bld) [Time] 27.3 s Normal 22.3-36.2 [facility] Comment on above: Performed By: #### P T, PTT #### [facility] Laboratory [address] [place] [address] Dr. Loyd Parks SYMPTOMATIC COVID-19 ANTIGEN on 07-27-2022 EUA Statement SEE BELOW Normal [facility] Comment on above: Result Comment: [...] [facility] [address] [place] [address] Dr. Loyd Parks SARS-CoV-2 (COVID-19) RNA SAUNDRA+probe Ql (Unsp spec) Negative Normal NEGATIVE [facility] Comment on above: Performed By: #### C OGAGS #### [facility] Laboratory [address] [place] [address] Dr. Loyd Parks XR CHEST 2 Von [...] 03-25 Glucose [Mass/Vol] 102 mg/dL Normal 74-106 [facility] Comment on above: Performed By: #### C MP, BNP, CMADM #### [facility] Laboratory [address] [place] [address] Dr. Loyd Parks ER URINE PROFILEon 2 Bilirubin Ql (U) Negative Normal NEGATIVE [facility] Comment on above: Performed By: #### E RUR #### [facility] Laboratory [address] [place] [address] Dr. Loyd Parks Clarity (U) CLEAR Normal CLEAR [facility] Comment on above: Performed By: #### E RUR #### [facility] [address] [place] [address] Dr. Loyd Parks Color (U) LT. YELLOW Normal YELLOW [facility] Comment on above: Performed By: #### E RUR #### [facility] Laboratory [address] [place] [address] Dr. Loyd CONWAY A micrscopic examination will be performed if indicated. Normal The [facility] Comment on above: Performed By: #### E RUR #### [facility] Laboratory [address] [place] [address] Dr. Loyd Parks Glucose Ql (U) 100 mg/dl Abnormal NEGATIVE [facility] Comment on above: Performed By: #### E RUR #### [facility] Laboratory [address] [place] [address] Dr. Loyd Parks Hemoglobin Ql (U) Negative Normal NEGATIVE The [facility] Comment on above: Performed By: #### E RUR #### [facility] Laboratory [address] [place] [address] Dr. Loyd Parks Ketones Ql (U) Negative Normal NEGATIVE [facility] Comment on above: Performed By: #### E RUR #### [facility] Laboratory [address] [place] [address] Dr. Loyd Parks LEUKOCYTES Negative Normal NEGATIVE The [facility] Comment on above: Performed By: #### E RUR #### [facility] Laboratory [address] [place] [address] Dr. Loyd Parks Nitrite Ql (U) Negative Normal NEGATIVE [facility] Comment on above: Performed By: #### E RUR #### [facility] Laboratory [address] [place] [address] Dr. Loyd Parks pH (U) 5.5 [pH] Normal 5-9 [facility] Comment on above: Performed By: #### E RUR #### [facility] [address] [place] [address] Dr. Loyd Parks SPEC GRAVITY 1.015 Normal 1.005-<=1.025 [facility] Comment on above: Performed By: #### E RUR #### [facility] Laboratory [address] [place] [address] Dr. Loyd Parks UA PROTEIN Negative Normal NEGATIVE/ TRACE The [facility] Comment on above: Performed By: #### E RUR #### [facility] Laboratory [address] [place] [address] Dr. Loyd Parks UR MICRO IND NOT INDICATED Normal [facility] Comment on above: Performed By: #### E RUR #### [facility] Laboratory [address] [place] [address] Dr. Loyd Parks Urobilinogen Qn (U) 0.2 {Malcolm'U}/dL Normal 0.2 - 1.0 [facility] Comment on above: Performed By: #### E RUR #### [facility] [address] [place] [address] Dr. Loyd Parks GROUP A STREP CULTUREon 02-21 S. pyogenes Ag Ql (Unsp spec) Culture Observations: NEGATIVE FOR GROUP A STREPTOCOCCUS. Normal [facility] Comment on above: Performed By: #### S IGNACIA GRASTCX #### [facility] Laboratory [address] [place] [address] Dr. Loyd Parks STREPT SCREENon 03-03-2022 STREP SCREEN A Negative Normal NEGATIVE [facility] Comment on above: Performed By: #### S IGNACIA GRASTCX #### [facility] Laboratory [address] [place] [address] Dr. Loyd Parks Covid-19 PCR (CVDTB)on SARS-CoV-2 [...] for this test is supported by the [place] of Health and Human Service's (HHS's) declaration [...] [facility] [address] [place] [address] Dr. Loyd Parks POINT OF CARE GLUCOSEon 12-22 Glucose [Mass/Vol] 133 mg/dL Critically high 74-106 [facility] Comment on above: Performed By: #### E RUR #### [facility] Laboratory [address] [place] [address] Dr. Loyd Parks POINT OF CARE GLUCOSEon Glucose [Mass/Vol] 75 mg/dL Normal 74-106 [facility] Comment on above: Performed By: #### E RUR #### [facility] Laboratory [address] [place] [address] ABD/PELVIS WO CONon [...] SAURABH SINGH Date: 2021-09-03 08:35 Normal The [facility] ER URINE PROFILEon 2 Bilirubin Ql (U) Negative Normal NEGATIVE [facility] Comment on above: Performed By: #### E RUR #### [facility] Laboratory [address] [place] [address] Dr. Loyd Parks Clarity (U) CLEAR Normal CLEAR The [facility] Comment on above: Performed By: #### E RUR #### [facility] [address] [place] [address] Dr. Loyd Parks Color (U) LT. YELLOW Normal YELLOW [facility] Comment on above: Performed By: #### E RUR #### [facility] Laboratory [address] [place] [address] Dr. Loyd CONWAY A micrscopic examination will be performed if indicated. Normal [facility] Comment on above: Performed By: #### E RUR #### [facility] [address] [place] [address] Dr. Loyd Parks Glucose Ql (U) >1000 Abnormal NEGATIVE [facility] Comment on above: Performed By: #### E RUR #### [facility] [address] [place] [address] Dr. Loyd Parks Hemoglobin Ql (U) Negative Normal NEGATIVE [facility] Comment on above: Performed By: #### E RUR #### [facility] [address] [place] [address] Dr. Loyd Parks Ketones Ql (U) Negative Normal NEGATIVE [facility] Comment on above: Performed By: #### E RUR #### [facility] [address] [place] [address] Dr. Loyd Parks LEUKOCYTES Negative Normal NEGATIVE [facility] Comment on above: Performed By: #### E RUR #### [facility] [address] [place] [address] Dr. Loyd Parks Nitrite Ql (U) Negative Normal NEGATIVE [facility] Comment on above: Performed By: #### E RUR #### [facility] [address] [place] [address] Dr. Loyd Parks pH (U) 6.0 [pH] Normal 5-9 [facility] Comment on above: Performed By: #### E RUR #### [facility] Laboratory [address] [place] [address] Dr. Loyd Parks SPEC GRAVITY 1.010 Normal 1.005-<=1.025 [facility] Comment on above: Performed By: #### E RUR #### [facility] Laboratory [address] [address] [address] Loyd Parks UA PROTEIN Negative Normal NEGATIVE/ TRACE [facility] Comment on above: Performed By: #### E RUR #### [facility] Laboratory [address] [place] [address] Dr. Lody Parks UR MICRO IND NOT INDICATED Normal [facility] Comment on above: Performed By: #### E RUR #### [facility] [address] [address] [address] Loyd Parks Urobilinogen Qn (U) 0.2 {Malcolm'U}/dL Normal 0.2 - 1.0 [facility] Comment on above: Performed By: #### E RUR #### [facility] Laboratory [address] [place] [address] Dr. Loyd Parks ALCOHOLon 07-31-2020 Ethanol [Mass/Vol] mg/dL Normal [facility] Comment on above: Result Comment: FOR MEDICAL USE ONLY. . REF VALUES <10 Performed By: #### A LC ####[facility] [place] [address] CBC AND DIFFERENTIALon 07-31 % AUTOMATED IMMATURE GRAN 0.4 % Normal 0.0 - 0.9 [facility] Comment on above: Result Comment: Rylie ture Granulocyte Count (IG) includes promyelocytes, myelocytes and metamyelocytes but does not include bands. Percent differential counts (%) should be interpreted in the context of the absolute cell counts (cells/L). Performed By: #### C BCDF #### [facility] [address] [place] [address] Basophils (Bld) [#/Vol] 0.05 10*3/uL Normal 0.00 - 0.10 [facility] Comment on above: Performed By: #### C BCDF #### [facility] [address] [place] [address] Basophils/100 WBC (Bld) 0.6 % Normal 0.0 - 2.0 [facility] Comment on above: Performed By: #### C BCDF #### [facility] [address] [place] [address] Eosinophils (Bld) [#/Vol] 0.21 10*3/uL Normal 0.00 - 0.40 [facility] Comment on above: Performed By: #### C BCDF #### [facility] [address] [place] [address] Eosinophils/100 WBC (Bld) 2.4 % Normal 0.0 - 6.0 [facility] Comment on above: Performed By: #### C BCDF #### [facility] [address] [place] [address] Erythrocyte distribution width (RBC) [Ratio] 13.2 % Normal 11.5 - 14.5 [facility] Comment on above: Performed By: #### C BCDF #### [facility] [address] [facility] [place] [address] Hematocrit (Bld) [Volume fraction] 50.0 % Normal 41.0 - 52.0 [facility] Comment on above: Performed By: #### C BCDF #### [facility] [address] [facility] [place] [address] Hemoglobin (Bld) [Mass/Vol] 17.3 g/dL Normal 13.5 - 17.5 [facility] Comment on above: Performed By: #### C BCDF #### [facility] [address] [place] [address] Lymphocytes (Bld) [#/Vol] 1.59 10*3/uL Normal 0.80 - 3.00 [facility] Comment on above: Performed By: #### C BCDF #### [facility] [address] [place] [address] Lymphocytes/100 WBC (Bld) 17.9 % Normal 13.0 - 44.0 [facility] Comment on above: Performed By: #### C BCDF #### [facility] [address] [facility] [place] [address] MCHC (RBC) [Mass/Vol] 34.6 g/dL Normal 32.0 - 36.0 [facility] Comment on above: Performed By: #### C BCDF #### [facility] [address] [place] [address] MCV (RBC) [Entitic vol] 89 fL Normal 80 - 100 [facility] Comment on above: Performed By: #### C BCDF #### [facility] [address] [place] [address] Monocytes (Bld) [#/Vol] 0.82 10*3/uL High 0.05 - 0.80 [facility] Comment on above: Performed By: #### C BCDF #### [facility] [address] [place] [address] Monocytes/100 WBC (Bld) 9.2 % Normal 2.0 - 10.0 [facility] Comment on above: Performed By: #### C BCDF #### [facility] [address] [facility] [place] [address] Neutrophils (Bld) [#/Vol] 6.18 10*3/uL High 1.60 - 5.50 [facility] Comment on above: Performed By: #### C BCDF #### [facility] [id number] [place] [address] [place] [address] Neutrophils/100 WBC (Bld) 69.5 % Normal 40.0 - 80.0 [facility] Comment on above: Performed By: #### C BCDF #### [facility] [id number] [place] [address] [place] [address] Platelets (Bld) [#/Vol] 215 10*3/uL Normal 150 - 450 [facility] Comment on above: Performed By: #### C BCDF #### [facility] [address] [facility] [place] [address] RBC 5.59 x10E12/L Normal 4.50 - 5.90 [facility] Comment on above: Performed By: #### C BCDF #### [facility] [address] [facility] [place] [address] WBC (Bld) [#/Vol] 8.9 10*3/uL Normal 4.4 - 11.3 [facility] Comment on above: Performed By: #### C BCDF #### [facility] [address] [place] [address] CHEST 1 VIEWon 07-31-2020 CHEST 1 VIEW STUDY: Chest Radiograph; 07/30/2020 10:53 PM INDICATION: Shortness of breath. COMPARISON: None available. ACCESSION NUMBER(S): [id number] ORDERING CLINICIAN: ZAID CUELLAR DO TECHNIQUE: Frontal chest was obtained at 2355 hours. FINDINGS: CARDIOMEDIASTINAL SILHOUETTE: Cardiomediastinal silhouette is normal in size and configuration. LUNGS: Lungs are clear. ABDOMEN: No remarkable upper abdominal findings. BONES: No acute osseous changes. IMPRESSION: No acute pulmonary abnormality. Signed by Rodrick Anna MD Electronically signed by: RODRICK ANNA MD Normal [facility] COMPREHENSIVE PANELon 2020 Albumin [Mass/Vol] 3.7 g/dL Normal 3.4 - 5.0 [facility] Comment on above: Performed By: #### C MP ####[facility] [place] [address] ALP [Catalytic activity/Vol] 80 U/L Normal 33 - 136 [facility] Comment on above: Performed By: #### C MP ####[facility] [place] [address] ALT [Catalytic activity/Vol] 12 U/L Normal 10 - 52 [facility] Comment on above: Result Comment: Jade ents treated with Sulfasalazine may generate falsely decreased results for ALT. Performed By: #### C MP ####[facility] [place] [address] Anion gap [Moles/Vol] 13 mmol/L Normal 10 - 20 [facility] Comment on above: Performed By: #### C MP ####[facility] [place] [address] AST [Catalytic activity/Vol] 12 U/L Normal 9 - 39 [facility] Comment on above: Performed By: #### C MP ####[facility] [place] [address] Bilirubin [Mass/Vol] 0.7 mg/dL Normal 0.0 - 1.2 [facility] Comment on above: Performed By: #### C MP ####[facility] [place] [address] Calcium [Mass/Vol] 9.2 mg/dL Normal 8.6 - 10.3 [facility] Comment on above: Performed By: #### C MP ####[facility] [place] [address] Chloride [Moles/Vol] 101 mmol/L Normal 98 - 107 [facility] Comment on above: Performed By: #### C MP ####[facility] [place] [address] Creatinine [Mass/Vol] 1.36 mg/dL High 0.50 - 1.30 [facility] Comment on above: Performed By: #### C MP ####[facility] [place] [address] GFR- AM. 61 mL/min/1.73m2 Normal >60 [facility] Comment on above: Result Comment: CALC ULATIONS OF ESTIMATED GFR ARE PERFORMED USING THE MDRD STUDY EQUATION FOR THE IDMS-TRACEABLE CREATININE METHODS. CLIN CHEM 2007;53:766-72 Performed By: #### C MP ####[facility] [facility] [place] [address] GFR-NON AM. 50 mL/min/1.73m2 Abnormal >60 [facility] Comment on above: Performed By: #### C MP ####[facility] [place] [address] Glucose [Mass/Vol] 390 mg/dL High 74 - 99 [facility] Comment on above: Performed By: #### C MP ####[facility] [place] [address] HCO3 (Bld) [Moles/Vol] 27 mmol/L Normal 21 - 32 [facility] Comment on above: Performed By: #### C MP ####[facility] [place] [address] Potassium [Moles/Vol] 4.1 mmol/L Normal 3.5 - 5.3 [facility] Comment on above: Performed By: #### C MP ####[facility] [place] [address] Protein [Mass/Vol] 6.8 g/dL Normal 6.4 - 8.2 [facility] Comment on above: Performed By: #### C MP ####[facility] [facility] [address] Sodium [Moles/Vol] 137 mmol/L Normal 136 - 145 [facility] Comment on above: Performed By: #### C MP ####[facility] [place] [address] Urea nitrogen [Mass/Vol] 27 mg/dL High 6 - 23 [facility] Comment on above: Performed By: #### C MP ####[facility] [place] [address] CT HEAD WO CONTRASTon 2020 CT HEAD WO CONTRAST STUDY: CT Head without IV Contrast; 07/30/2020, 11:52 PM. INDICATION: Confusion, disorientation. COMPARISON: None Available. ACCESSION NUMBER(S): [id number] ORDERING CLINICIAN: ZAID CUELLAR DO TECHNIQUE: Noncontrast [...] Electronically signed by: RODRICK ANNA MD Normal [facility] MAGNESIUMon 07-31-2020 Magnesium [Mass/Vol] 2.04 mg/dL Normal 1.60 - 2.40 [facility] Comment on above: Performed By: #### M G #### [facility] [address] [place] [address] PT/INRon 07-31-2020 PT Coag (PPP) [Time] 12.0 s Normal 10.1 - 13.3 [facility] Comment on above: Performed By: #### P TINR #### [facility] [address] [place] [address] PT, INR 1.0 Normal 0.9 - 1.1 [facility] Comment on above: Performed By: #### P TINR #### [facility] [address] [place] [address] Provider Note - ED v2on 07-22 Provider Note - ED v2 Provider Note - ED v2: Chart Review: ED NOTES ED NOTES: History: This is an 80-year-old male presenting from the [facility] by [facility] for chief complaint of a medical evaluation. Patient left his home in [place] 3 days ago because he got into an argument with his and he has not been back since. He was finally located at a [facility] down the street when family called. [...] From Triage - ED 30-Jul-2020 23:17 Normal [facility] Risk Screen - Adult Emergenc [...] instruction; written material Cultural Considerationsnone Developmental Considerationsnone Judaism Considerationsnone Learning Assessment (Other Learner): Learning Assessment (Other Learner): Other learner availableno Pressure Injury/TB/Substance: Pressure Injury: Do you have a coughno Substance Use Current or Former Historynever: Cigarette/Tobacco, e-Cigarette/Vaping, Alcohol, Street Drugs Admission Risk Screen: Significant IndicatorsComplete CAGE: CAGE: Is this an injured patient at a Trauma Center ([facility]/[place]): no Electronic Signatures: Elizabeth Ivan) (Signed 30-Jul-2020 23:24) Authored: Preferred Language, Advanced Directives, Family Violence Adult, Learning Assessment (Patient), Learning Assessment (Other Learner), Pressure Injury/TB/Substance, Pressure Injury, CAGE Last Updated: 30-Jul-2020 23:24 by Elizabeth Ivan (RN) Normal [facility] TROPONIN Ion 07-31-2020 Troponin I.cardiac [Mass/Vol] ng/mL Normal 0.00 - 0.03 [facility] Comment on above: Result Comment: [...] is performed using different testing methodology at [facility] than at other [facility]. Direct result comparisons should only be made within the same method. 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 Triage Date/Time: 30-Jul-2020 22:50 LAILA: 3 Pain Rating (0-10): 0 = None Vital Signs: Temperature: 96.8F ( 36.0C) taken temporal Blood Pressure: 166/103 Mean: Heart Rate: 94 Respiratory Rate: 18 Pulse Oximetry: 97% on room air, no respiratory support. Weight: 230.3 pounds. Calculated 104.5 kg. (stated) S[place]ry Coma Scale: Best Eye Response: (E4) spontaneous Best Motor Response: (M6) obeys commands Best Verbal Response: (V5) oriented Sperry Score: 15 Allergies: yes Patient has homicidal [...] 30-Jul-2020 23:23 by Elizabeth Ivan (MIGUEL) Normal [facility] UA MICROSCOPICon 07-31-2020 RBC 1 /HPF Normal 0-5 [facility] Comment on above: Performed By: #### U AMIC #### [facility] [address] [place] [address] SQUAMOUS EPITH. CELLS <1 Normal [facility] Comment on above: Performed By: #### U AMIC #### [facility] [address] [place] [address] WBC 22 /HPF Abnormal 0-5 [facility] Comment on above: Performed By: #### U AMIC #### [facility] [address] [facility] [place] [address] URINALYSISon 07-31-2020 Appearance (U) CLEAR Normal CLEAR [facility] Comment on above: Performed By: #### U A #### [facility] [address] [facility] [place] [address] Bilirubin Ql (U) Negative Normal NEGATIVE [facility] Comment on above: Performed By: #### U A #### [facility] [address] [facility] [place] [address] Color (U) STRAW Normal STRAW,YELLOW [facility] Comment on above: Performed By: #### U A #### [facility] [address] [facility] [place] [address] Glucose Ql (U) >=500(3+) Abnormal NEGATIVE [facility] Comment on above: Performed By: #### U A #### [facility] [id number] [place] [address], [place] [address] Hemoglobin Ql (U) SMALL(1+) Abnormal NEGATIVE [facility] Comment on above: Performed By: #### U A #### [facility] [address] [facility] [place] [address] Ketones Ql (U) Negative Normal NEGATIVE [facility] Comment on above: Performed By: #### U A #### [facility] [address] [facility] [address] Leukocyte esterase Test strip Ql (U) TRACE Abnormal NEGATIVE [facility] Comment on above: Performed By: #### U A #### [facility] [address] [facility] [address] Nitrite Ql (U) Negative Normal NEGATIVE [facility] Comment on above: Performed By: #### U A #### [facility] [address] [facility] [place] [address] pH (U) 6.0 [pH] Normal 5.0 - 8.0 [facility] Comment on above: Performed By: #### U A #### [facility] [address] [facility] [place] [address] Protein Ql (U) 100(2+) Abnormal NEGATIVE [facility] Comment on above: Performed By: #### U A #### [facility] [address] [facility] [place] [address] Specific gravity (U) [Rel density] 1.025 Normal 1.005 - 1.035 [facility] Comment on above: Performed By: #### U A #### [facility] [address] [place] [address] Urobilinogen (U) [Mass/Vol] mg/dL Normal 0.0 - 1.9 [facility] Comment on above: Performed By: #### U A #### [facility] [address] [place] [address] Vital Signs Date Time Vital Sign Value Performing Clinician Facility 01-08-2024 14: Body height 172.7 cm Darcy Sandoval [employer] Work Phone: [facility] 01-08-2024 14:17040 Body mass index (BMI) [Ratio] 37.56 kg/m2 Darcy Sandoval [employer] Work Phone: [facility] 01-08-2024 14:17040 Body weight 112.04 kg Darcy Sandoval [employer] Work Phone: [facility] 01-08-2024 14:17-040 Diastolic blood pressure 84 mm[Hg] Darcy Sandoval [employer] Work Phone: [facility] 01-08-2024 14:17-040 Heart rate 92 /min Darcy Sandoval [employer] Work Phone: [facility] 01-08-2024 14:17-0400 SaO2% (BldA) [Mass fraction] 98 % Darcy Sandoval [employer] Work Phone: [facility] 01-08-2024 14:17040 Systolic blood pressure 124 mm[Hg] Darcy Sandoval [employer] Work Phone: [facility] 12-25-2023 14:040 Body height 172.7 cm Darcy Sandoval [employer] Work Phone: [facility] 12-25-2023 14:-0400 Body mass index (BMI) [Ratio] 38.32 kg/m2 Darcy Snadoval [employer] Work Phone: [facility] 12-25-2023 14:28-0400 Body weight 114.31 kg Darcy Sandoval [employer] Work Phone: [facility] 12-25-2023 14:28-0400 Diastolic blood pressure 68 mm[Hg] Darcy Campavely [employer] Work Phone: [facility] 12-25-2023 14:28-0400 Heart rate 88 /min Darcy Frederic [employer] Work Phone: [facility] 12-25-2023 14:28-0400 SaO2% (BldA) [Mass fraction] 97 % Darcy Lori [employer] Work Phone: [facility] 12-25-2023 14:28-0400 Systolic blood pressure 128 mm[Hg] Darcy Sandoval [employer] Work Phone: [facility] 09-16-2022 14:48-0400 Blood Pressure Location Umer VALENCIA [facility] 09-16-2022 14:48-0400 Diastolic blood pressure 74 mm[Hg] Umer VALENCIA [facility] 09-16-2022 14:48-0400 Heart rate 70 /min Umer VALENCIA [facility] 09-16-2022 14:48-0400 Respiratory rate 16 /min Umer VALENCIA [facility] 09-16-2022 14:48-0400 Systolic blood pressure 130 mm[Hg] Umer VALENCIA [facility] 04-26-2022 11:04-0500 Blood Pressure Location Umer VALENCIA [facility] 04-26-2022 11:04-0500 Diastolic blood pressure 78 mm[Hg] Umer VALENCIA [facility] 04-26-2022 11:04-0500 Heart rate 62 /min Umer VALENCIA [facility] 04-26-2022 11:04-0500 Respiratory rate 16 /min Umer VALENCIA [facility] 04-26-2022 11:04-0500 Systolic blood pressure 134 mm[Hg] Umer VALENCIA [facility] 12-03-2021 13:08-0400 Blood Pressure Location Umer VALENCIA [facility] 12-03-2021 13:08-0400 Diastolic blood pressure 70 mm[Hg] Umer VALENCIA [facility] 12-03-2021 13:08-0400 Heart rate 65 /min Umer VALENCIA [facility] 12-03-2021 13:08-0400 Respiratory rate 16 /min Umer VALENCIA [facility] 12-03-2021 13:08-0400 Systolic blood pressure 109 mm[Hg] Umer VALENCIA [facility] 09-03-2021 13:39-0400 Blood Pressure Location Umer VALENCIA [facility] 09-03-2021 13:39-0400 Diastolic blood pressure 67 mm[Hg] Umer VALENCIA [facility] 09-03-2021 13:39-0400 Heart rate 68 /min Umer VALENCIA [facility] 09-03-2021 13:39-0400 Respiratory rate 16 /min Umer VALENCIA [facility] 09-03-2021 13:39-0400 Systolic blood pressure 102 mm[Hg] Umer VALENCIA [facility] Encounters Encounter Date Encounter Type Care Provider Facility Start: 02-10-2024 ambulatory Marianela X Orzech Facilit y:[facility] Start: 01-08-2024 End: 01-08-2024 ambulatory DARCY SANDOVAL Not Available Start: 01-08-2024 End: 01-08-2024 Bamboo flowsheet Darcy Sandoval [employer] Work Phone: [facility] Start: 01-08-2024 End: 01-08-2024 Bamboo flowsheet Darcy Sandoval [employer] Work Phone: [facility] Start: 01-08-2024 End: 01-08-2024 Office outpatient visit 25 minutes Darcy Sandoval [employer] Work Phone: [facility] Comment on above: Edema, unspecified t ype (Primary Dx); Altered mental status, unspecified altered mental status type Start: 12-25-2023 End: 12-25-2023 Office outpatient visit 25 minutes Darcy Sandoval [employer] Work Phone: [facility] Comment on above: Localized edema (Leslee jazmine Dx); Acute cough Start: 12-25-2023 End: 12-25-2023 ambulatory DARCY SANDOVAL Not Available Start: 12-25-2023 End: 12-25-2023 Bamboo flowsheet Darcy Sandoval [employer] Work Phone: [facility] Start: 12-25-2023 End: 12-25-2023 Bamboo flowsheet Darcy Sandoval [employer] Work Phone: [facility] Start: 12-05-2023 End: 12-05-2023 ambulatory DARCY SANDOVAL [facility] Start: 11-30-2023 End: 11-30-2023 ambulatory RENE ANTHONY [facility] Start: 11-28-2023 End: 11-28-2023 [facility]: 11-21-2023 Evaluation and manag ement of inpatient [facility] Start: 11-18-2023 Evaluation and manag ement of inpatient [facility] Start: 11-17-2023 Evaluation and manag ement of inpatient [facility] Start: 11-15-2023 Evaluation and manag ement of inpatient [facility] Start: 11-15-2023 Evaluation and manag ement of inpatient [facility] Start: 11-15-2023 Evaluation and manag ement of inpatient [facility] Start: 11-15-2023 Evaluation and manag ement of inpatient [facility] Start: 11-15-2023 End: 11-15-2023 ambulatory UNKNOWN PROVIDER Facility:[facility] Start: 11-15-2023 End: 11-22-2023 Evaluation and management of inpatient [facility] Start: 11-13-2023 End: 11-13-2023 ambulatory DARCY SANDOVAL Not Available Start: 11-11-2023 End: 11-11-2023 ambulatory Marianela Ingram Facility:[facility] Start: 11-11-2023 End: 11-11-2023 Patient encounter procedure Marianela Ingram [facility] Start: 10-23-2023 End: 10-23-2023 ambulatory DARCY SANDOVAL Not Available Start: 10-14-2023 End: 10-14-2023 ambulatory Marianela X Orzech Facility:[facility] Start: 10-14-2023 End: 10-14-2023 Patient encounter procedure Marianela Jennifer Dowellzech [facility] Start: 10-09-2023 End: 10-09-2023 ambulatory TOMMY GABRIEL Not Available Start: 08-01-2023 End: 08-01-2023 ambulatory JUAN PABLO ALANIZ Not Available Start: 06-19-2023 End: 06-19-2023 ambulatory JUAN PABLO ALANIZ Not Available Start: 05-13-2023 End: 05-13-2023 ambulatory CAIT DUNHAM Facility:[facility] Start: 05-13-2023 End: 05-13-2023 Patient encounter procedure CAIT DUNHAM [facility] Start: 04-23-2023 End: 04-23-2023 ambulatory JUAN PABLO ALANIZ Not Available Start: 03-26-2023 End: 03-26-2023 ambulatory JUAN PABLO ALANIZ Not Available Start: 02-27-2023 End: 02-27-2023 ambulatory DARCY SANDOVAL Not Available Start: 12-18-2022 End: 12-18-2022 ambulatory CAIT DUNHAM Facility:[facility] Start: 09-16-2022 End: 09-16-2022 Patient encounter procedure Umer VALENCIA [facility] Start: 07-26-2022 End: 07-27-[address] JUAN PABLO ALANIZ Facility:[facility] Start: 06-26-2022 End: 06-27-[address] JUAN PABLO ALANIZ Facility:[facility] Start: 05-23-2022 End: 05-24-[address] JUAN PABLO ALANIZ Facility:[facility] Start: 04-26-2022 End: 04-26-2022 Patient encounter procedure Umer VALENCIA [facility] Start: 04-22-2022 End: 04-23-[address] JUAN PABLO ALANIZ Facility:[facility] Start: 04-16-2022 End: 04-16-[address] JUAN PABLO ALANIZ Facility:[facility] Start: 04-08-2022 End: 04-08-2022 Patient encounter procedure Umer VALENCIA [facility] Start: 04-04-2022 ambulatory SHELLIE ROJAS . Facility:[facility] [...] encounter procedure Umer VALENCIA [facility] Start: 11-29-2021 End: 11-30-2021 ambulatory MANDIE Goodman [facility] Facility:[facility] Start: 11-27-2021 End: 11-27-[address] VINH HOLCOMB . Facility:[facility] Start: 10-02-2021 End: 10-03-[address] VINH HOLCOMB . Facility:[facility] Start: 09-21-2021 End: 09-21-[address] SUJIT GR . Facility:[facility] Start: 09-19-2021 End: 09-20-2021 ambulatory MANDIE Goodman [facility] Facility:[facility] Start: 09-15-2021 End: 09-16-[address] SPARKLE NELSON Facility:[facility] Start: 09-03-2021 End: 09-03-2021 Patient encounter procedure Umer VALENCIA [facility] Start: 09-03-2021 End: 09-03-[address] JUAN PABLO ALANIZ Facility:[facility] Procedures Date Procedure Procedure Detail Performing Clinician Esophagogastroduodenoscopy Goldie VALENCIA Plan of Treatment Date Care Activity Detail Author Start: 12-04-2024 Urine screening for protein Diabetes: Urine Protein Screening [facility] Start: 02-17-2024 Hemoglobin A1c measurement Diabetes: Hemoglobin A1C [facility] Start: 01-29-2024 End: 01-29-2024 Patient encounter procedure 01/29/2024 1:20 PM EST Procedure Visit [facility] [address] [facility] [address] [place] [address] Tommy Gabriel DPM [address] [facility] [address] [place] [address] [facility] Start: 01-08-2024 End: 01-07-2025 Basic metabolic 1998 panel - Serum or Plasma Basic metabolic panel Lab Routine Edema, unspecified type Expected: 01/08/2024 (Approximate), Expires: 01/07/2025 [facility] Work Phone: Comment on above: Expected: 01/08/2024 (Approximate), Expires: 01/07/2025 Start: 01-08-2024 End: 01-07-2025 CBC panel - Blood by Automated count CBC Lab Routine Altered mental status, unspecified altered mental status type Expected: 01/08/2024 (Approximate), Expires: 01/07/2025 [facility] Comment on above: Expected: 01/08/2024 (Approximate), Expires: 01/07/2025 Start: 01-08-2024 End: 01-08-2024 Patient encounter procedure 01/08/2024 1:00 PM EDT Office Visit [facility] [address] [facility] [address] [place] [address] Darcy Sandoval NP [address] [place] [address] [facility] Start: 12-25-2023 End: 12-25-2023 Patient encounter procedure 12/25/2023 2:30 PM EDT Office Visit [facility] [address] [place] [address] Darcy Sandoval NP [address] [place] [address] Arrived [facility] Comment on above: Arrived Start: 11-23-2023 Influenza vaccination Influenza Vacc ine (#1) [facility] Start: 08-22-2022 ambulatory Ambulatory Facility:[facility] Start: 08-06-2019 Pneumococcal Vaccine : 65+ Years (2 of 2 - PCV) Pneumococcal Vaccine: 65+ Years (2 of 2 - PCV) [facility] Start: 1950 Glaucoma screening Diabetes: R etinopathy Screening [facility] Immunizations Immunization Date Immunization Notes Care Provider Fa cility 01-13-2023 influenza virus vacc ine, unspecified formulation Marianela Ingram [facility] 01-13-2023 Influenza, High-dose Seasonal, Quadrivalent, Preservative Free Darcy Lori [employer] Work Phone: [facility] 02-22-2022 influenza virus vacc ine, unspecified formulation Umer VALENCIA [facility] 02-22-2022 influenza, high dose seasonal, preservative-free Darcy Frederic [employer] Work Phone: [facility] 12-21-2020 SARS-CoV-2 (COVID-19 ) mRNA BNT-162b2 vax Umer VALENCIA [facility] 11-30-2020 SARS-CoV-2 (COVID-19 ) mRNA BNT-162b2 vax Umer VALENCIA [facility] 01-24-2020 influenza virus vacc ine, unspecified formulation Umer VALENCIA [facility] 01-24-2020 influenza, high dose seasonal, preservative-free Darcy Frederic [employer] Work Phone: [facility] 03-04-2019 influenza virus vacc ine, unspecified formulation Umer VALENCIA [facility] 03-04-2019 influenza, high dose seasonal, preservative-free Darcy Lori [employer] Work Phone: [facility] 08-05-2018 pneumococcal polysaccharide vaccine, 23 valent Umer VALENCIA [facility] 12-18-2016 influenza virus vacc ine, unspecified formulation Umer VALENCIA [facility] 12-18-2016 influenza, high dose seasonal, preservative-free Darcy Frederic [employer] Work Phone: [facility] 12-06-2015 influenza virus vacc ine, unspecified formulation Umer VALENCIA [facility] 12-06-2015 influenza, high dose seasonal, preservative-free Darcy Frederic [employer] Work Phone: [facility] 12-21-2014 influenza virus vacc ine, unspecified formulation Umer VALENCIA [facility] 12-21-2014 influenza, high dose seasonal, preservative-free Darcy Frederic [employer] Work Phone: [facility] Payers Date Payer Category Payer Medicare [facility] MEDICARE ADVANTAGE [facility] MEDICARE ADVANTAGE [id number] 2021-Present [address] [place] [id number] 2021 Medicare (Managed Care) [facility] ADVANTAGE [id number] 1959 Unknown [id number] 1959 Unknown [id number] 1938 Unknown [id number] 2.16.840.1.806784.3.579.2 .593 1938 Unknown [id number] 2.840.1.619175.3.579.2 .593 1938 Unknown [id number] 2.16.840.1.650393.3.579.2 .593 1938 Unknown [id number] 2.16.840.1.362307.3.579.2 .593 1938 Unknown [id number] 2.16.840.1.180941.3.579.2 .593 1938 Unknown [id number] 2.16.840.1.805801.3.579.2 .593 1938 Unknown [id number] 2.16.840.1.479157.3.579.2 .593 1938 Unknown [id number] 2.16.840.1.405594.3.579.2 .593 1938 Unknown [id number] 2.16840.1.231242.3.579.2 .593 1938 Unknown [id number] 2.16.840.1.241140.3.579.2 .593 1938 Unknown [id number] 2.16840.1.872138.3.579.2 .593 1938 Unknown [id number] 2.16840.1.381690.3.579.2 .593 1938 Unknown [id number] 2.16840.1.319027.3.579.2 .593 1938 Unknown [id number] 2.16.840.1.746068.3.579.2 .593 1938 Unknown [id number] 2.16.840.1.448800.3.579.2 .593 1938 Unknown [id number] 2.16.840.1.914954.3.579.2 .593 1938 Unknown [id number] 2.16.840.1.670542.3.579.2 .593 1938 Unknown [id number] 2.16.840.1.267342.3.579.2 .593 1938 Unknown [id number] 2.16.840.1.564188.3.579.2 .593 1938 Unknown [id number] 2.16.840.1.663855.3.579.2 .593 1938 Unknown [id number] 2.16.840.1.318673.3.579.2 .593 1938 Unknown [id number] 2.16.840.1.923659.3.579.2 .593 1938 Unknown [id number] 2.16.840.1.317000.3.579.2 .593 1938 Unknown [id number] 2.16.840.1.140038.3.579.2 .593 1938 Unknown [id number] 2.16.840.1.919454.3.579.2 .727 1938 Unknown [id number] 2.16.840.1.170412.3.579.2 .727 1938 Unknown [id number] 2.16.840.1.407034.3.579.2 .727 1938 Unknown [id number] 2.16.840.1.174511.3.579.2 .727 1938 Unknown [id number] 2.16.840.1.566068.3.579.2 .727 1938 Unknown [id number] 2.16.840.1.238187.3.579.2 .732 1938 Unknown [id number] 2.16.840.1.621626.3.579.2 .173 1938 Unknown [id number] 2.16.840.1.354620.3.579.2 .1259 1938 Unknown [id number] 2.16.840.1.649909.3.579.2 .1259 1938 Unknown [id number] 2.16.840.1.041017.3.579.2 .1258 1938 Unknown [id number] 2.16.840.1.162990.3.579.2 .9 1938 Unknown [id number] 2.16.840.1.274196.3.579.2 .1258 1938 Unknown [id number] 2.16.840.1.528778.3.579.2 .1258 1938 Unknown [id number] 2.16.840.1.256812.3.579.2 .1258 1938 Unknown [id number] 2.16.840.1.000860.3.579.2 .1258 1938 Unknown [id number] 2.16.840.1.180578.3.579.2 .1258 1938 Unknown [id number] 2.16.840.1.026418.3.579.2 .1259 Social History Date Type Detail Facility Start: 09-03-2021 Tobacco smoking status Ex-smoker (fi nding) [facility] Start: 11-01-2022 End: 12-11-2023 Sex Assigned At Male [facility] Start: 04-26-2022 End: 11-14-2022 Tobacco smoking status Never smoked tobacco (finding) [facility] Tobacco smoking status Never [facility] Start: 11-14-2022 Tobacco use and exposure Smokeless tobacco non-user [facility] Start: 11-13-2023 End: 01-08-2024 Alcoholic beverage intake Ex-drinker (finding) [facility] Start: 11-01-2022 End: 12-11-2023 History of Social function [facility] Within the last year , have you been afraid of your partner or ex-partner? No [facility] Are you now , , , , never or living with a partner? Living with partner [facility] How often to you hav e a drink containing alcohol? Never [facility] Do you feel stress - tense, restless, nervous, or anxious, or unable to sleep at night because your mind is troubled all the time - these days [OSQ] Not at all [facility] (I/We) worried wheth er (my/our) food would run out before (I/we) got money to buy more. Never true [facility] Start: 1940 Sex assigned at Not on file [facility] Functional Status Date Assessment Result Facility 11-11-2023 Functional Status N/A [facility] 09-16-2022 Functional Status N/A [facility] 04-26-2022 Functional Status N/A [facility] 12-03-2021 Functional Status N/A [facility] 09-03-2021 Functional Status N/A [facility] Clinical Notes 09-03-2021 to 01-08-2024 Darcy Sandoval, RADHA - 01/08/2024 2:00 PM EDTSjayda Sandoval NP - 12/25/2023 2:30 PM EDT Note Date & Type Note Facility 01-08-2024 History of Present illness Narrative Images from the original note were not included. Subjective Patient ID: Nat Moore is a 83 y.o. male who presents for Edema. Pt still has swelling on his left lower leg, pt did take the one pill for 5 days Pt is also complaining of having burning with urination , pt does drink lots of water Edema Presents with chronic edema. The current episode started more than 1 year ago. The onset of the episode was undetermined. These episodes happen throughout the day. The problem presents itself constantly. The problem has been stable. The edema is present on the both side(s). Risk factors: Lymphedema. Associated agents include no associated agents. Treatments tried include diuretics, elevating limb(s) and low salt diet. There has been none improvement on treatment(s). Current Outpatient Medications on File Prior to Visit Medication Sig Dispense Refill methocarbamol (Robaxin) 500 MG tablet TAKE ONE TABLET BY MOUTH DAILY AT BEDTIME 28 tablet 11 omeprazole (PriLOSEC) [address] capsule TAKE ONE CAPSULE BY MOUTH DAILY BEFORE MORNING MEAL 28 capsule 11 allopurinol (Zyloprim) 300 MG tablet TAKE ONE TABLET BY MOUTH DAILY 100 tablet 3 amLODIPine (Norvasc) 5 MG tablet TAKE ONE TABLET BY MOUTH DAILY FOR HYPERTENSION aspirin 81 MG EC tablet Take 1 tablet by mouth Daily atorvastatin (Lipitor) 40 MG tablet TAKE ONE CAPSULE BY MOUTH AT BEDTIME FOR CHOLESTEROL CONTROL candesartan (Atacand) 32 MG tablet Take 32 mg by mouth Daily docusate sodium (Colace) 100 MG capsule TAKE ONE CAPSULE BY MOUTH DAILY NEEDED 28 capsule 11 donepezil (Aricept) 10 MG tablet TAKE ONE TABLET BY MOUTH DAILY AT BEDTIME 28 tablet 11 doxycycline (Vibra-Tabs) 100 MG tablet Take 1 tablet by mouth in the morning and 1 tablet before bedtime. FLUoxetine (PROzac) 10 MG capsule TAKE ONE CAPSULE BY MOUTH DAILY FOR DEPRESSION WITH 20MG TO EQUAL 30MG TOTAL FLUoxetine (PROzac) 20 MG capsule TAKE ONE CAPSULE BY MOUTH ONCE DAILY 28 capsule 11 furosemide (Lasix) 40 MG tablet Take 1 tablet (40 mg) by mouth Daily 30 tablet 11 gabapentin (Neurontin) 100 MG capsule TAKE 2 CAPSULES BY MOUTH IN THE MORNING, 2 CAPSULES IN THE EVENING, AND 2 CAPSULES BEFORE BEDTIME 168 capsule 11 glipiZIDE (Glucotrol) 10 MG tablet TAKE ONE TABLET BY MOUTH TWICE A DAY 200 tablet 3 hydrOXYzine HCl (Atarax) 25 MG tablet Take 25 mg by mouth every 8 (eight) hours if needed for anxiety lidocaine (Lidoderm) 5 % patch Apply 1 patch over 12 hours topically in the morning. Remove & discard patch within 12 hours or as directed by MD.. 30 patch 11 meloxicam (Mobic) 15 MG tablet TAKE ONE TABLET BY MOUTH AT BEDTIME 28 tablet 11 metOLazone (Zaroxolyn) 5 MG tablet Take 1 tablet (5 mg) by mouth Daily for 5 days Give 1/2 hour before Lasix 5 tablet 0 oxybutynin XL (Ditropan-XL) 5 MG 24 hr tablet TAKE ONE TABLET BY MOUTH AT BEDTIME FOR OVERACTIVE BLADDER potassium chloride CR (Klor-Con M20) 20 MEQ ER tablet Take 1 tablet (20 mEq) by mouth Daily Do not crush or chew. 30 tablet 11 QUEtiapine (SEROquel) 25 MG tablet TAKE ONE TABLET BY MOUTH TWICE A DAY FOR DELUSIONS solifenacin (VESIcare) 10 MG tablet Take 10 mg by mouth in the morning. Swallow tablet whole; do not crush, chew, or split.. tamsulosin (Flomax) 0.4 MG 24 hr capsule Take 0.4 mg by mouth in the morning. traZODone (Desyrel) 100 MG tablet TAKE ONE CAPSULE BY MOUTH AT BEDTIME FOR DEPRESSION trospium (Sanctura XR) 60 MG 24 hour capsule Take by mouth Daily No current facility-administered medications on file prior to visit. I have reviewed and reconciled the history and medication list with the patient today. Allergies Allergen Reactions Codeine Other Reaction(s): Unknown Penicillin G Unknown Social History Tobacco Use Smoking status: Never Smokeless tobacco: Never Substance Use Topics Alcohol use: Not Currently Drug use: Never Family History Problem Relation Name Age of Onset Lung cancer Father Past Medical History: Diagnosis Date Diabetes mellitus ([facility]) Diverticulosis History of being hospitalized 10/07/2023 Acute Metabolic Encephalopathy Hypertension (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) 09/04/2016 Past Surgical History: Procedure Laterality Date EGD with dilation Visit Vitals Smoking Status Never Review of Systems Constitutional: Negative. HENT: Negative. Respiratory: Negative. Cardiovascular: Negative. Gastrointestinal: Negative. Genitourinary: Negative. Musculoskeletal: Edema Skin: Negative. Neurological: Negative. Psychiatric/Behavioral: Negative. Objective Physical Exam Vitals reviewed. Constitutional: Appearance: Normal appearance. Comments: Altered mental status from previous visit HENT: Head: Normocephalic. Right Ear: Tympanic membrane normal. Left Ear: Tympanic membrane normal. Mouth/Throat: Mouth: Mucous membranes are moist. Pharynx: Oropharynx is clear. Cardiovascular: Rate and Rhythm: Normal rate and regular rhythm. Pulmonary: Effort: Pulmonary effort is normal. Breath sounds: Normal breath sounds. Musculoskeletal: Right lower leg: Edema present. Left lower leg: Edema present. Comments: Lymphedema Skin: General: Skin is warm and dry. Neurological: Mental Status: He is alert. Motor: Weakness present. Psychiatric: Mood and Affect: Mood normal. Assessment/Plan Diagnoses and all orders for this visit: Edema, unspecified type - Basic metabolic panel; Future Check lab following treatment with Zaroxolyn. There was no improvement in edema with the addition of the zaroxolyn. Encouraged to zacarias wrap legs. ACO to notify home health to educate on zacarias wraps. Altered mental status, unspecified altered mental status type - CBC; Future Await results of lab. Pt unable to urinate in a cup during his appointment. A cup was sent home with pt and pt will bring in a sample. educated on keeping urine in refrigerator until she can get it back to office. No follow-ups on file. documented in this encounter [facility] 12-25-2023 History of Present illness Narrative Images from the original note were not included. Subjective Patient ID: Nat Moore is a 83 y.o. male who presents for Hospital Follow-up. [facility]23 to 12/08/23 pt was put on new meds Pt is doing better and he has been coughing sleeping a lot Pt is having a lot of swelling in his lowers legs Current Outpatient Medications on File Prior to Visit Medication Sig Dispense Refill FLUoxetine (PROzac) 10 MG capsule TAKE ONE CAPSULE BY MOUTH DAILY FOR DEPRESSION WITH 20MG TO EQUAL 30MG TOTAL hydrOXYzine HCl (Atarax) 25 MG tablet Take 25 mg by mouth every 8 (eight) hours if needed for anxiety trospium (Sanctura XR) 60 MG 24 hour capsule Take by mouth Daily allopurinol (Zyloprim) 300 MG tablet TAKE ONE TABLET BY MOUTH DAILY 100 tablet 3 amLODIPine (Norvasc) 5 MG tablet TAKE ONE TABLET BY MOUTH DAILY FOR HYPERTENSION aspirin 81 MG EC tablet Take 1 tablet by mouth Daily atorvastatin (Lipitor) 40 MG tablet TAKE ONE CAPSULE BY MOUTH AT BEDTIME FOR CHOLESTEROL CONTROL candesartan (Atacand) 32 MG tablet Take 32 mg by mouth Daily Candesartan Cilexetil-HCTZ 32-25 MG tablet Take 1 tablet by mouth in the morning. 100 tablet 2 docusate sodium (Colace) 100 MG capsule TAKE ONE CAPSULE BY MOUTH DAILY NEEDED 28 capsule 11 donepezil (Aricept) 10 MG tablet TAKE ONE TABLET BY MOUTH DAILY AT BEDTIME 28 tablet 11 doxycycline (Vibra-Tabs) 100 MG tablet Take 1 tablet by mouth in the morning and 1 tablet before bedtime. FLUoxetine (PROzac) 20 MG capsule TAKE ONE CAPSULE BY MOUTH ONCE DAILY 28 capsule 11 furosemide (Lasix) 40 MG tablet Take 1 tablet (40 mg) by mouth Daily 30 tablet 11 gabapentin (Neurontin) 100 MG capsule TAKE 2 CAPSULES BY MOUTH IN THE MORNING, 2 CAPSULES IN THE EVENING, AND 2 CAPSULES BEFORE BEDTIME 168 capsule 11 glipiZIDE (Glucotrol) 10 MG tablet TAKE ONE TABLET BY MOUTH TWICE A DAY 200 tablet 3 lidocaine (Lidoderm) 5 % patch Apply 1 patch over 12 hours topically in the morning. Remove & discard patch within 12 hours or as directed by MD.. 30 patch 11 meloxicam (Mobic) 15 MG tablet TAKE ONE TABLET BY MOUTH AT BEDTIME 28 tablet 11 methocarbamol (Robaxin) 500 MG tablet TAKE 1 TABLET (500 MG) BY MOUTH AT BEDTIME. 28 tablet 11 omeprazole (PriLOSEC) [address] capsule TAKE ONE CAPSULE BY MOUTH ONCE DAILY 30 MINUTES BEFORE MORNING MEAL 90 28 capsule 11 oxybutynin XL (Ditropan-XL) 5 MG 24 hr tablet TAKE ONE TABLET BY MOUTH AT BEDTIME FOR OVERACTIVE BLADDER potassium chloride CR (Klor-Con M20) 20 MEQ ER tablet Take 1 tablet (20 mEq) by mouth Daily Do not crush or chew. 30 tablet 11 QUEtiapine (SEROquel) 25 MG tablet TAKE ONE TABLET BY MOUTH TWICE A DAY FOR DELUSIONS solifenacin (VESIcare) 10 MG tablet Take 10 mg by mouth in the morning. Swallow tablet whole; do not crush, chew, or split.. tamsulosin (Flomax) 0.4 MG 24 hr capsule Take 0.4 mg by mouth in the morning. traZODone (Desyrel) 100 MG tablet TAKE ONE CAPSULE BY MOUTH AT BEDTIME FOR DEPRESSION No current facility-administered medications on file prior to visit. I have reviewed and reconciled the history and medication list with the patient today. Allergies Allergen Reactions Codeine Other Reaction(s): Unknown Penicillin G Unknown Social History Tobacco Use Smoking status: Never Smokeless tobacco: Never Substance Use Topics Alcohol use: Not Currently Drug use: Never Family History Problem Relation Name Age of Onset Lung cancer Father Past Medical History: Diagnosis Date Diabetes mellitus (CMS/HCC) Diverticulosis History of being hospitalized 10/07/2023 Acute Metabolic Encephalopathy Hypertension (CMS/HCC) Lung nodule Memory loss Neuropathy Renal cyst 2021 rt cortical Ulcer of foot due to type 2 diabetes mellitus (CMS/HCC) 09/04/2016 Past Surgical History: Procedure Laterality Date EGD with dilation Visit Vitals Smoking Status Never Review of Systems Constitutional: Negative. HENT: Negative. Eyes: Negative. Respiratory: Positive for cough. Cardiovascular: Positive for leg swelling. Gastrointestinal: Negative. Genitourinary: Negative. Musculoskeletal: Negative. Skin: Negative. Neurological: Negative. Psychiatric/Behavioral: Negative. All other systems reviewed and are negative. Endocrine: Negative. Objective Physical Exam Vitals reviewed. Constitutional: Appearance: Normal appearance. HENT: Head: Normocephalic. Nose: Nose normal. Mouth/Throat: Mouth: Mucous membranes are moist. Pharynx: Oropharynx is clear. Cardiovascular: Rate and Rhythm: Normal rate and regular rhythm. Pulmonary: Effort: Pulmonary effort is normal. Breath sounds: Normal breath sounds. Abdominal: General: Bowel sounds are normal. Palpations: Abdomen is soft. Skin: General: Skin is warm and dry. Neurological: General: No focal deficit present. Mental Status: He is alert and oriented to person, place, and time. Psychiatric: Mood and Affect: Mood normal. Behavior: Behavior normal. Assessment/Plan Diagnoses and all orders for this visit: Localized edema - metOLazone (Zaroxolyn) 5 MG tablet; Take 1 tablet (5 mg) by mouth Daily for 5 days Give 1/2 hour before Lasix. Follow up in 1-2 weeks. You will need blood work at that time. Acute cough You can take cough syrup with DM in it. You can also use warm drinks, cough drops, etc. No follow-ups on file. documented in this encounter [facility] 11-22-2023 Note Hospital Medicine Discharge Summary Final Discharge Diagnosis: Episodes of sinus pauses/asystole requiring external pacing maker s/p permanent dual-chamber pacemaker on 11/18/2023 Recurrent syncope Acute encephalopathy Coronary artery disease, Coronary calcification, [facility] 11/15 LAD: prox 40%, mid 60-70%. 80% [...] initially admitted to the hospitalist service from [place] due to recurrent episodes of syncope secondary [...] his presenting complaints. During his stay in [place] ED he suddenly developed bradycardia prolonged sinus pause up to 18 seconds and became unresponsive. Code was activated and at the beginning of CPR he had regained his consciousness. He had another episode of sinus pause of about 12 seconds prior to transfer, however did not lose his consciousness at this time. On arrival to [facility] blood pressure was 158/72 mmHg, pulse rate 78 bpm, regular, SpO2 100% on room air, respiratory rate 20/min, temperature 97.2. 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 CT of the abdomen with contrast done at [place] ED showed nonobstructive bowel gas pattern with [...] also had a left heart cath on 825:[facility] 11/15 LAD: prox 40%, mid 60-70%. 80% [...] significantly. Daily evaluated the patient on 11/21/2023. [place] slip was removed and they deemed patient [...] cardiology, ICU, psychiatry Dear Dr. Corbin MD, Pavon is advised to follow up with you within 1-2 weeks. Follow-up with: primary care, electrophysiology Scheduled appointments: Future Appointments Date Time Provider Department Center 12/02/2023 2:20 PM Liu Henning MD [facility] Your medication list START taking these medications Instructions Last Dose Given Next Dose Due amLODIPine 10 mg tablet Commonly known as: Norvasc Start taking on: November 23, 2023 Take 1 tablet (10 mg) by mouth in the morning. Do not start bef (more content not included)... [facility] 11-22-2023 Note Physical Therapy Name: Nat Moore Date of : 1940 Today's Date: 11/22/23 Pt is unable to be seen for therapy at this time secondary to pt to discharge @ 2:00 PM today. Check No Charge Time attempted: 1405 [facility] 11-22-2023 Note Pt originally set fo r 9am BLS transport to [facility] but per MD we will push back to 2pm transport due to high blood pressures. UPDATE 1:15PM- Per MD pt can still discharge today. Transport set for 2pm via [facility]. Assembled transfer packet and placed by chart. Sent final AVS and discharge orders via [employer]. Notified RN and pt's is aware of transport time. [facility] 11-21-2023 Note Attestation signed by Juan [...] is for the patient to go to [facility]. Discussed with the family that our strong [...] with Dr. Liz. Melva Recinos MD PGY2 [facility] 11-21-2023 Note Hospital Medicine Daily Progress Note - 11/21/2023 2:13 PM; Room: [address] [place] [address] Admission: 11/15/2023 2:42 PM; Length of stay: 6 days THE HOSPITALIST TEAM PREFERS TO USE [employer] CHAT FOR COMMUNICATION 7AM-7PM. IF I DO NOT RESPOND WITHIN 15 MINUTES, PLEASE PAGE ME/CALL THROUGH THE CRIME INVESTIGATOR SPECIAL AGENT. 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 [place] slip removed. No need for psych admission. [...] 75 mL/hr, Last Rate: 75 mL/hr (11/20/23 1854) Pertinent Investigations Hematology: Results from last 7 [...] CALCIUM mg/dL 8. (more content not included)... [facility] 11-21-2023 Note Physical Therapy Physical Therapy [...] a.m. Upon entry, pt in bed. This FILM VAULT SUPERVISOR introduces herself and intention for session. Per Karen RN pt is pleasant but overall confused. She [...] state President. Did state he was at [facility] .) Following Commands: Follows one step commands [...] 2 is given. Gait belt is donned, LONG TERM is given on the right side and [...] to advance BLEs to EOB but uses FILM VAULT SUPERVISOR's hand with his right hand to assist in raising upper body from bed. Bed Mobility 2 Bed Mobility From 2: Scooting Bed Mobility Type 2: To Bed Mobility to 2: (EOB in sitting) Level of Assistance 2: Minimum assistance Bed Mobility Comments 2: Pt uses FILM VAULT SUPERVISOR's hand with his right hand to assist in scooting hips to EOB Transfers Transfer: Yes Transfer 1 Transfer From 1: Sit Transfer Type 1: To and from Transfer to 1: Stand Transfer Device 1: none (FILM VAULT SUPERVISOR and aide on either side of pt) Transfer Level of Assistance 1: Minimum assistance, x2 Trials/Comments 1: Pt. instructed to (more content not included)... [facility] 11-21-2023 Note Attestation signed by Juan [...] Patient Name: Nat Moore MRN / CSN: [id number] Date of / Age: 2 1940 / [...] mild cognitive impairment originally presenting to the [facility] Emergency Room on 11/15/2023 for evaluation of recurrent episodes of syncope secondary to spontaneous prolonged sinus pause. The patient was transferred via air ambulance from the [facility]. 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 The patient reports being to his , Donna, and having 4 children. He reports he came from [place] where he lives, but was not able to describe why he came to hospital or where he is now. 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 Reported Behavior: Combative and agitated PRN Medications [...] injection PRN 8/ (more content not included)... [facility] 11-20-2023 Note 11/20/23 1730 Referral Data Referral Source Physician Referral Reason [...] Support Systems Spouse/significant other Type of Residence residential facility Will patient need Precert for Post Acute needs? Yes Patient's goal for discharge would like the facility in [place] for rehab 1. [facility] 2. [place] [facility] 3. (if not accepted in [place]) she is ok with [facility]. Does the patient need discharge transport arranged? Yes SW called patient to discuss consult for SNF placement for rehab. Patient is currently confused and not able to answer questions. SW discussed network provider list. would like provider in [place] with [facility] [place] as 1st choice. She would [place] [facility] as 2nd and she is ok [facility]. Referrals made as requested. Precert will be needed. SW following. [facility] 11-20-2023 Note Attestation signed by William [...] Moore Age - 83 y.o. - 1940 [facility] # - [id number] Date of Admission - 11/15/2023 2:42 PM HPI/Hospital Course Nat Moore is a an 83-year-old gentleman with PMH significant for type 2 diabetes mellitus, essential hypertension, hyperlipidemia, CKD stage IIIa, bilateral lower extremity edema on diuretic therapy, osteoarthritis, depression and mild cognitive impairment was initially admitted to the hospitalist service from [place] due to recurrent episodes of syncope secondary [...] his presenting complaints. During his stay in [place] ED he suddenly developed bradycardia prolonged sinus [...] of the abdomen with contrast done at [place] ED showed nonobstructive bowel gas pattern with [...] no focal deficit (more content not included)... [facility] 11-19-2023 Note Speech Watchmaker Apprentice ology Speech/Language Pathology Clinical Swallow Assessment Rx: [...] calcifications who presented via air ambulance from [facility] due to recurrent episodes of syncope secondary to spontaneous prolonged sinus pause. He had initially presented for worsening midsternal chest pain lower back pain located in his mid chest aching in nature, 6 out of 10 on intensity scale, nonradiating associated with SOB. During his stay at [place] he developed bradycardia prolonged sinus pause up [...] (in puree) Recommendations Duration of Treatment: 15 [facility] 11-19-2023 Note Attestation signed by William [...] Moore Age - 83 y.o. - 1940 [facility] # - [id number] Date of Admission - 11/15/2023 2:42 PM HPI/Hospital Course Nat Moore is a an 83-year-old gentleman with PMH significant for type 2 diabetes mellitus, essential hypertension, hyperlipidemia, CKD stage IIIa, bilateral lower extremity edema on diuretic therapy, osteoarthritis, depression and mild cognitive impairment was initially admitted to the hospitalist service from [place] due to recurrent episodes of syncope secondary [...] his presenting complaints. During his stay in [place] ED he suddenly developed bradycardia prolonged sinus [...] of the abdomen with contrast done at [place] ED showed nonobstructive bowel gas pattern with [...] Results CBC: Result (more content not included)... [facility] 11-19-2023 Note Attestation signed by Nora [...] calcifications who presented via air ambulance from [facility] due to recurrent episodes of syncope secondary to spontaneous prolonged sinus pause. He had initially presented for worsening midsternal chest pain lower back pain located in his mid chest aching in nature, 6 out of 10 on intensity scale, nonradiating associated with SOB. During his stay at [place] he developed bradycardia prolonged sinus pause up [...] NAD. Resting comfortably. Still in restraints. S/p [employer] DC-PPM yesterday, tolerated well. OBJECTIVE Objective [...] Nightly, Nils Zimmer MD, 500 mg at 11/18/23 210 nystatin (Mycostatin) 100,000 unit/gram powder, , Topical, [...] , , Once (more content not included)... [facility] 11-19-2023 Note 11/19/23 1125 Admission Assessment [...] Interested Does the patient have a child support case officer assigned to them through their insurance? No Living Arrangement (Current/Prior to Hospitalization) Private residence (with ) Does the patient have history of HHC or SNF? No Assistive Device Cane Patient's goal for discharge likely snf Was patient reminded that goal for discharge is 11am? No Does the patient have transportation at discharge? No Type of Residence residential facility Is PT/OT appropriate? Yes Is PT/OT ordered? Yes Is SW consult appropriate? Yes Is SW consult ordered? Yes Do you understand the benefits of MyChart? No Were you able to send link and activate MyChart? No [facility] 11-19-2023 Note Consult rec'd for SN F. PT/OT recommend SNF. No family at bedside at this time. SW to try again later. [facility] 11-19-2023 Note Physical Therapy Physical Therapy [...] Level of Function Prior Function Level of [place]: Independent with ADLs and functional transfers, Needs [...] patient with difficul (more content not included)... [facility] 11-19-2023 Note Occupational Therapy Occupational Therapy Evaluation Patient Name: Nat Moore : 1940 Today's Date: 11/19/2023 Time In: 941 Time Out: 1005 admitted to the hospitalist service from [place] due to recurrent episodes of syncope secondary [...] directions Memory: Decreased short term memory, Decreased bed bug exterminator memory, Decreased recall of precautions, Decreased recall of biographical information, Decreased recall of recent events Communication: (labored , dysarthic) General Assessment General Assessment Hearing: ([place], hearing aids not observed but has them per nsg) Hand Dominance: Right Home Living Home Living Type of Home: (patient unable to report consistantly) Prior Level of Function Prior Function Level of [place]: (reports indep and drives) Prior Functional Mobility: [...] Little (Min Assist/Contact Guard/Supervision) Total Score OT AMPAC: 8 Assessment/Plan OT Assessment OT Impairments: Decreased ADL status, Decreased cognition, Decreased endurance, Decreased functional mobility OT Assessment/OTTO Summary: (needs skilled OT due to weakness [...] until discharge & PRN OT Discharge Recommendations: residential facility placement OT - Discharge Recommendations Placed: Yes OT Goals Multi-Disciplinary Problems (from Occupational Therapy) Active Problems Problem: Balance Start Date: 11/19/23 Goal Start Date Expected End Date End Date LTG - Patient will maintain stand balance to allow for safe mobility 11/19/23 12/17/23 -- Problem: Bathing Start Date: 11/19/23 Goal Start Date Expected End Date End Date LTG (more content not included)... [facility] 11-18-2023 Note Attestation signed by William [...] Moore Age - 83 y.o. - 1940 [facility] # - [id number] Date of Admission - 11/15/2023 2:42 PM HPI/Hospital Course Nat Moore is a an 83-year-old gentleman with PMH significant for type 2 diabetes mellitus, essential hypertension, hyperlipidemia, CKD stage IIIa, bilateral lower extremity edema on diuretic therapy, osteoarthritis, depression and mild cognitive impairment was initially admitted to the hospitalist service from [place] due to recurrent episodes of syncope secondary [...] his presenting complaints. During his stay in [place] ED he suddenly developed bradycardia prolonged sinus [...] of the abdomen with contrast done at [place] ED showed nonobstructive bowel gas pattern with [...] 11.9* 12.4* HE (more content not included)... [facility] 11-18-2023 Note Attestation signed by Nora [...] calcifications who presented via air ambulance from [facility] due to recurrent episodes of syncope secondary to spontaneous prolonged sinus pause. He had initially presented for worsening midsternal chest pain lower back pain located in his mid chest aching in nature, 6 out of 10 on intensity scale, nonradiating associated with SOB. During his stay at [place] he developed bradycardia prolonged sinus pause up [...] NAD. Resting comfortably. Still in restraints. S/p [employer] DC-PPM this morning, tolerated well. OBJECTIVE [...] Kulwinder Figueroa MD, 81 mg at 11/18/23 110 atorvastatin (Lipitor) tablet 40 mg, 40 mg, [...] Nightly, Nils Zimmer MD, 500 mg at 11/17/232123 nystatin (Mycostatin) 100,000 unit/gram powder, , Topical, BID, Giles Altman MD, Given at 11/18/23 1156 oxybutynin XL (Ditropan-XL) 24 hr tablet 5 mg, 5 mg, oral, Nightly, Nils Zimmer MD, 5 mg at 11/17/232123 Oxygen Therapy, , inhalation, Continuous, Art Mckoy MD, Given at 11/18/23 0900 pantoprazole (ProtoNix) injection 40 mg, 40 mg, intravenous, Daily, Watson Alcantar MD, 40 mg at 11/18/23 110 QUEtiapine (SEROquel) tablet 25 mg, 25 mg, oral, Nightly, Gurdeep Obrien MD, 25 mg at 11/17/232123 sennosides-docusate sodium (Brittney-Colace) 8.6-50 mg per tablet 1 tablet, 1 tablet, oral, Daily PRN, Nils Zimmer MD Insert peripheral IV, , , Once AND Saline lock IV, , , Once AND sodium chloride flush 10 mL, 10 mL, intravenous, q8h PRN, Nils Lam (more content not included)... [facility] 11-18-2023 Note DUAL CHAMBER PACEMAK ER IMPLANT PROCEDURE NOTE DATE OF PROCEDURE: 11/18/23 PERFORMING PHYSICIAN: Dr. Sam Zelaya CONSENT: Patient LOCATION: EP Lab PROCEDURE PERFORMED: 1. Implantation of pacemaker ([employer]) 2. Ultrasound guided venous access INDICATIONS: [...] using modified seldinger technique using a 5 Cymraes micro-puncture needle on two occasions and 0.35 [...] for the device above the muscle. 6 Cym[employer]es Safesheaths were placed over the wire. An active fixation [employer] pacing lead was then delivered through the 6Fsheath to the right ventricle. After confirmation of lead position on orthogonal views (WILKINSON and MALTESE) to confirm septal position, the screw was [...] was then removed. Then an active fixation [employer] lead was delivered through the 6Fsheath to the right atrial appendage. After confirmation of lead position on orthogonal views (WILKINSON and MALTESE), the screw was activated. Good sensing parameters, [...] any concerns. Sam Zelaya MD Cardiac Electrophysiology [facility] 11-17-2023 Note Attestation signed by Nora Rivera MD at 11/17/2023 5:59 PM GC: I saw this patient. I personally performed the critical/ba portions that determines the level of service. I was directly involved in the management and treatment plan of the patient. I reviewed resident Dr. Amato's note and agree with the documentation Cardiology Progress Note REASON FOR CONSULT Reason for Consult: Sinus Pauses SUBJECTIVE HPI: Nat Moore is a 83 y.o. male with PMHx significant for HTN/HLD, CKD 3A, dementia, obesity, coronary calcifications who presented via air ambulance from [facility] due to recurrent episodes of syncope secondary to spontaneous prolonged sinus pause. He had initially presented for worsening midsternal chest pain lower back pain located in his mid chest aching in nature, 6 out of 10 on intensity scale, nonradiating associated with SOB. During his stay at [place] he developed bradycardia prolonged sinus pause up [...] tablet 40 mg, 40 mg, oral, Nightly, Kuwlinder Figueroa MD dexmedeTOMIDine (Precedex) 4 mcg/mL in [...] BID, Giles Altman MD, Given at 11/16/23 215 oxybutynin XL (Ditropan-XL) 24 hr tablet 5 [...] oral, Daily, [place] (more content not included)... [facility] 11-17-2023 Note Attestation signed by William [...] initially admitted to the hospitalist service from [place] due to recurrent episodes of syncope secondary [...] his presenting complaints. During his stay in [place] ED he suddenly developed bradycardia prolonged sinus [...] of the abdomen with contrast done at [place] ED showed nonobstructive bowel gas pattern with [...] planning on taking the patient to the [facility] tomorrow for possible transvenous pacemaker placement SUBJECTIVE [...] hours) at 11/17/2023 (more content not included)... [facility] 11-16-2023 Note Cardiovascular Labor atory Report [...] left radial artery was obtained. A 6 Cymraes glide sheath was inserted without difficulty. Difficulty [...] a mid v (more content not included)... [facility] 11-16-2023 Note Attestation signed by Salena [...] permanent pacemaker implantation tomorrow Salena Alcaraz MD, [facility] Cardiology Progress Note Subjective Subjective: Patient had [...] -- 85 15 98 % -- -- 11/15/23 194 154/66 -- -- 82 13 100 % -- -- 11/15/23 1935 157/77 36.9 ???C (98.4 ???F) Temporal 75 16 100 % -- -- 11/15/23 193 -- -- -- 73 14 100 % -- -- 11/15/23 191 -- -- -- 77 12 99 % [...] Value Ventricular Rate 85 Atrial Rate 85 LA Interval 266 QRS DURATION 104 QT Interval 390 QTC CALCULATION(BAZETT) 464 P [place] 71 R-[place] -60 T Wave [place] 49 Impression Sinus rhythm with 1st degree A-V block Left axis deviation Inferior infarct (cited on or before 21-JUL-2012) Cannot rule out Anterior infarct (cited on or before 15-NOV-2023) Abnormal ECG When compared with ECG of 15-NOV-2023 19:56, (unconfirmed) No significant change was found Lab Results Component Value Date TROPONINI 0.01 11/15/2023 Transthoracic echo (TTE) complete Result Date: 11/15/2023 1 1 [facility] Heart Station [address] [place] [address] [phone] (fax) Echocardiogram-[facility] Name: NAT MOORE Study Date: 11/15/2023 05:06 PM B/P: 158 mmHg/72 mmHg HR: Date of : 1940 Location: [facility] Height: 65 in. Age: 83 year(s) Patient [...] sizeNo significant v (more content not included)... [facility] 11-15-2023 Note CODE BLUE was called on this patient after he sustained a 10 the second sinus pause and then a 7-second sinus pause. Patient with brief LOC. Patient with multiple episodes of nausea and vomiting. MICU fellow at bedside who states he will transfer patient to MICU for transcutaneous pacing. [facility] 11-15-2023 Note Hospital Medicine History and Physical 11/15/2023 5:58 PM THE HOSPITALIST TEAM PREFERS TO USE [employer] CHAT FOR COMMUNICATION 7AM-7PM. IF I DO NOT RESPOND WITHIN 15 MINUTES, PLEASE PAGE ME/CALL THROUGH THE [employer] INVESTIGATOR SPECIAL AGENT. FROM 7PM-7AM, PLEASE PAGE [phone](COVR) Chief Complaint No chief complaint on file. History of Present Illness Nat Moore is an 83 y.o. severely obese male with a medical history significant for type 2 diabetes mellitus, essential hypertension, hyperlipidemia, CKD stage IIIa, bilateral lower extremity edema on diuretic therapy, osteoarthritis, coronary calcifications, depression, mild cognitive impairment, who was transferred via air ambulance from the [facility] due to recurrent episodes of syncope secondary to spontaneous prolonged sinus pause. Patient states that he presented to the [place] ED due to worsening midsternal chest pain [...] his presenting complaints. During his stay in [place] ED he suddenly developed bradycardia prolonged sinus [...] of the abdomen with contrast done at [place] ED showed nonobstructive bowel gas pattern with [...] no oral abnorma (more content not included)... [facility] 11-11-2023 Hospital Discharge instructions Patient Education [...] your health care provider. General instructions Take aybh-nvz-mzbfgul and prescription medicines only as told by [...] provider. Document Revised: 11/27/2020 Document Reviewed: 11/27/2020 [employer] Patient Education 2022 Optimus3. Follow Up Care 10/14/2023 13:29:56 With:RAUL Ingram APRN, RIANNA Abad, URL Address: When: Unknown Comments:f/up in 3 mos [facility] 11-11-2023 Note Patient Education Obstetrics and Gynecology [...] health care provider. General instructions ? Take xzip-lvk-siprafy and prescription medicines only as told by [...] your health care (more content not included)... [facility] 09-16-2022 Hospital Discharge instructions Patient Education 09/16/2022 [...] your health care provider. General instructions Take kzcj-dwn-nhntlxi and prescription medicines only as told by [...] provider. Document Revised: 11/27/2020 Document Reviewed: 11/27/2020 [employer] Patient Education 2022 Optimus3. Follow Up Care 04/26/2022 11:39:09 With:ERIK MENG, Umer Schultz, URL Address: [facility] [address], [place] [address]- When: Unknown [facility] Jillian 05-23-2022 Note CONSULTATION CONSULTATION DATE: [...] urethra. Follow these instructions at home: Take stht-lkr-vtcybqs and prescription medicines only as told by [...] 03/10/2006 Document Revised: 02/02/2019 Document Reviewed: 04/14/2017 [email or web address] Patient Education 2020 Optimus3. Follow Up Care 04/08/2022 14:01:00 With:ERIK MENG, Umer Schultz, URL Address: [address] [place] [address] [place] [address]- When: Unknown [facility] 04-08-2022 Hospital Discharge instructions Patient Education 04/08/2022 [...] urethra. Follow these instructions at home: Take dhkw-ram-zwgfdqo and prescription medicines only as told by [...] 03/10/2006 Document Revised: 02/02/2019 Document Reviewed: 04/14/2017 [employer] Patient Education 2020 Optimus3. 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 He does not use heat or ice to his back at this time. Current medications include gabapentin 200 mg t.i.d., nabumetone 750 mg b.i.d., [place] 5/325 t.i.d. Patient does use a walking [...] L3 and L4, L5. A refill for [place] 5/325 t.i.d. will be sent today. He [...] urethra. Follow these instructions at home: Take bpjm-uik-celvkwi and prescription medicines only as told by [...] 03/10/2006 Document Revised: 02/02/2019 Document Reviewed: 04/14/2017 [employer] Patient Education 2020 Optimus3. Follow Up Care 09/03/2021 14:17:23 With:ERIK MENG, Umer Schultz, URL Address: [facility] [address] [place] [address]- [phone] When:04/04/2022 Comments:PVR [facility] Jillian 10-02-2021 Note CONSULTATION PROCEDURE DATE: [...] he reports mitigation of his pain symptomatology. [facility] Signed and Approved by: DR VINH HOLCOMB . 10/09/2021 09:28:00 [facility] 10-02-2021 Note CONSULTATION CONSULTATION DATE: [...] three times a day. We will re-prescribe [place] 5/325 t.i.d. which he had received from [...] to proceed. CC: Juan Pablo Alaniz M.D. [facility] Signed and Approved by: DR VINH HOLCOMB . 10/09/2021 09:28:00 [facility] 09-03-2021 Hospital Discharge instructions Patient [...] 03/10/2006 Document Revised: 11/27/2018 Document Reviewed: 02/07/2017 [employer] Patient Education 2020 Optimus3. 09/03/2021 13:53:06 Benign Prostatic Hyperplasia Benign Prostatic [...] urethra. Follow these instructions at home: Take weei-gct-ohezery and prescription medicines only as told by [...] 03/10/2006 Document Revised: 02/02/2019 Document Reviewed: 04/14/2017 [employer] Patient Education 2020 Optimus3. Follow Up Care 07/03/2021 15:21:16 With:Umer VALENCIA MD, URL Address: [facility] [address], [place] [address]- [phone] When:Within 3 Month(s) Comments:f/u in 3 months with PVR scan [facility] Evaluation + Plan note Future Appointments Appointment Date:12/03/2021 01:15:00 PM Scheduled Provider:Umer VALENCIA MD Location:[facility] Appointment Type:URO Office Visit [facility] Evaluation + Plan note Future Appointments Appointment Date:04/08/2022 12:45:00 PM Scheduled Provider:[facility] MD [facility] Office [facility] Evaluation + Plan note Future Appointments Appointment Date:04/26/2022 10:15:00 AM Scheduled Provider:Umer VALENCIA MD [facility] App[facility] Type:[facility]O Office Visit [facility] Evaluation + Plan note Future Appointments Appointment Date:07/22/2022 08:45:00 AM Scheduled Provider:[facility]IA [facility] Office Visit [facility] Evaluation + Plan note Future Appointments Appointment Date:12/20/2022 08:30:00 AM Scheduled Provider:Umer VALENCIA MD [facility] Future Appointments Appointment Date:11/11/2023 01:00:00 PM Scheduled Provider:RAUL Ingram APRN Marianela X Location:[facility] Appointment Type:URO Office Visit [facility] [employer] Evaluation + Plan note Future Appointments Appointment Date:02/10/2024 12:30:00 PM Scheduled Provider:RAUL Ingram APRN Marianela X Location:[facility] Appointment Type:URO Office Visit [facility] [employer] Evaluation note Diagnosis Localized edema- Primary Edema Acute cough [facility] Diagnosis Edema, unspecified type- Primary Altered mental status, unspecified altered mental status type [facility] Narrative No data available for this section [facility] [employer] Hospital Discharge instructions No data available for this section [facility] [employer] progress note No data available for this section [facility] [employer] Summary Purpose Family History No Family History [...] and content) DATE CREATED AUTHOR 11/14/2020 [facility] DATE CREATED AUTHOR AUTHOR'S ORGANIZ ATION 08/02/2022 [facility] [place] [facility] DATE CREATED AUTHOR AUTHOR'S ORGANIZ ATION 11/13/2023 [facility] DATE CREATED AUTHOR AUTHOR'S ORGANIZ ATION 11/17/2023 [facility] DATE CREATED AUTHOR AUTHOR'S ORGANIZ ATION 11/24/2023 [facility] DATE CREATED AUTHOR AUTHOR'S ORGANIZ ATION 12/07/2023 [facility] DATE CREATED AUTHOR AUTHOR'S ORGANIZ ATION 01/11/2024 [facility] Care Team (unrecognized sect ion and content) 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 Start Date End Date Juan Pablo Alaniz MD [address] [place] [address] PCP - Peg CHURCH[place] 03/24/21 Juan Pablo Alaniz MD [address] [place] [address] PCP - General Internal Medicine 07/30/22 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 Start Date End Date Juan Pablo Alaniz MD [address] [place] [address] PCP - Peg [place] 03/24/21 Juan Pablo Alaniz MD [address] [place] [address] PCP - General Internal Medicine 07/30/22 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 [facility] [employer] [facility]. provides no warranty or guarantee of the accuracy or completeness of information in this document.
--- NOTE | 2024-01-22 15:18 | PC.NURSE ---
per squad, found pt unresponsive. pt became alert after painful stimuli. pt a&ox2 rr even unlabored skin pwd.
[2024-01-22 15:20] LABS: INR 1.12; Prothrombin Time 11.7 sec (9.0-11.6)
[2024-01-22 15:31] LABS: Alanine Aminotransferase 13 U/L (16-63); Albumin Globulin Ratio 0.9; Alkaline Phosphatase 82 U/L (46-116); Anion Gap 15.3; Aspartate Amino Transferase 14 U/L (15-37); BUN Creatinine Ratio 14.7; Bilirubin Total 0.6 mg/dL (0.2-1.0); Calcium 8.9 mg/dL (8.5-10.1); Carbon Dioxide 26.5 mmol/L (21.0-32.0); Chloride 109 mmol/L (98-107); Estimated GFR (African America 33 (>=60 mL/min/1.73m^2); Estimated GFR (Non-African Ame 27 (>=60 mL/min/1.73m^2); Globulin 3.4 g/dL; Glucose 116 mg/dL (74-106); Potassium 3.8 mmol/L (3.5-5.1); Sodium 147 mmol/L (136-145); Total Protein 6.4 g/dL (6.4-8.2); Troponin I High Sensitivity 6.9 pg/mL (4.0-76.1)
[2024-01-22 15:34] LABS: Lactate/Lactic Acid 3.5 mmol/L (0.4-2.0); Magnesium 1.4 mg/dL (1.8-2.4)
[2024-01-22 16:51] LABS: Bilirubin Urine NEGATIVE (NEGATIVE); Blood Urine NEGATIVE (NEGATIVE); Clarity Urine CLEAR (CLEAR); Color Urine LT. YELLOW (YELLOW); Glucose Urine UA NEGATIVE (NEGATIVE); Ketones Urine NEGATIVE (NEGATIVE); Leukocyte Esterase Urine NEGATIVE (NEGATIVE); Nitrite Urine NEGATIVE (NEGATIVE); Protein Urine NEGATIVE (NEG/TRACE); Urobilinogen Urine 0.2 EU/dL (0.2-1.0); pH Urine 5.5 (5.0-9.0)
[2024-01-22 16:52] LABS: Urine Microscopic Indicated NO
[2024-01-22 18:19] LABS: Lactate/Lactic Acid 1.2 mmol/L (0.4-2.0)
--- OUTSIDE RECORDS SUMMARY | 2024-01-22 18:38 | XMS_ITS | CCD ---
Author Organization [facility] Care Team Providers Care Scheduling Clerk Name Role Phone JUAN PABLO ALANIZ Primary [...] Unavailable ZIAMOL, DR SAURABH Schultz Consulting Unavailable OAMR, DR SPARKLE Schultz Admitting Unavailable OMAR, DR [...] Care Unavailable Juan Pablo Alaniz MD Unavailable [phone] Juan Pablo Alaniz MD Primary Care Provider [phone] JUAN PABLO ALANIZ Attending Unavailable JUAN PABLO ALANIZ Attending Unavailable JUAN PABLO ALANIZ Attending Unavailable JUAN PABLO ALANIZ Attending Unavailable TOMMY GABRIEL Attending Unavailable DARCY SANDOVAL Attending Unavailable LORIDARCY Attending Unavailable LORIDARCY Attending Unavailable LORIDARCY Attending Unavailable LORIDARCY Attending Unavailable Allergies Allergy Classification Reported Allergen(s) Allergy Type Date of Onset Reaction(s) Facility (10 sources) Penicillin; Translations: [penicillin] Drug Allergy 12-01-2021 [facility] (3 sources) Penicillins; Translations: [PENICILLINS] Drug allergy (disorder) 11-15-2023 [facility] (6 sources) Penicillin G Drug Allergy 11-01-2022 Unknown [facility] Healthcare Work Phone: (5 sources) Codeine Drug Allergy 12-25-2023 [facility] Healthcare Medications Current Medications [...] Active Start: 11-28-2022 take 1 capsule by [facility] once daily FLUoxetine (PROzac) 20 MG capsule [...] Daily, # 30 tab(s), Refills(s) 11, Pharmacy: [facility] 1155, 167, cm, 09/16/22 15:10:00 EDT, Height/Length Dosing, 120, kg, 09/16/22 15:10:00 EDT, Weight Dosing Start Date: 10/01/23 Status: Ordered Start: 09-16-2022 End: 09-11-2023 take 1 tablet by mouth once daily Vesicare 10 mg Tab 10 mg = 1 tab(s), Oral, Daily, X 30 day(s), # 30 tab(s), Refills(s) 11, Pharmacy: [facility] 1155, 167, cm, 09/16/22 15:10:00 EDT, Height/Length Dosing, 120, kg, 09/16/22 15:10:00 EDT, Weight Dosing Start Date: 09/16/22 Stop Date: 09/11/23 Status: Ordered Start: 04-26-2022 [facility] Vesicare 5 mg Tab 5 mg = 1 tab(s), Oral, Daily, # 30 tab(s), Refills(s) 11, Pharmacy: [facility] 1155, 174, cm, 12/03/21 13:40:00 EDT, Height/Length Dosing, 112, kg, 12/03/21 13:40:00 EDT, Weight Dosing Start Date: 04/26/22 Status: Ordered tamsulosin hydrochloride 0.4 mg oral capsule (14 sources) alpha-Adrenergic Levi Start: 10-01-2023 take 1 capsule by mouth once daily Flomax 0.4 mg Cap 0.4 mg = 1 cap(s), Oral, Daily, # 30 cap(s), Refills(s) 11, Pharmacy: [facility] 1155, 167, cm, 09/16/22 15:10:00 EDT, Height/Length Dosing, 120, kg, 09/16/22 15:10:00 EDT, Weight Dosing Start Date: 10/01/23 Status: Ordered Start: 10-31-2022 take 1 capsule by mo [facility] every twenty-four hours in the morning [...] # 90 cap(s), Refills(s) 3, [facility], 174, cm, 09/03/21 13:40:00 EDT, Height/Length Dosing, 112.5, kg, 09/03/21 13:40:00 EDT, Weight Dosing Start Date: 10/25/21 Status: Ordered Start: 07-03-2021 take 1 capsule by mouth once d aily Flomax 0.4 mg Cap 0.4 mg = 1 cap(s), Oral, Daily, # 30 cap(s), Refills(s) 3, [facility], 174, cm, 07/17/20 5:39:00 EDT, Height/Length Dosing, 112.5, kg, 07/17/20 5:39:00 EDT, Weight Dosing Start Date: 07/03/21 Status: Ordered 24 hr tolterodine tartrate 4 mg extended release oral capsule (4 sources) Cholinergic Muscarinic Antagonist Start: 01-17-2021 take 1 capsule by mouth once daily tolterodine 4 mg Cap-ER 4 mg = 1 cap(s), Oral, Daily, # 30 cap(s), Refills(s) 11, Pharmacy: [facility], 174, cm, 09/03/21 13:40:00 EDT, Height/Length [...] disease (8 sources) Atherosclerotic heart disease of [place] coronary artery with unspecified angina pectoris; Translations: [...] 11-29-2021 Episodic Other aftercare (1 source) Other detention (current) drug therapy; Translations: [OTH HALFWAY CURRENT DRUG THERAPY] Onset: 07-31-2022 Episodic Other aftercare (1 source) 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; Translations: [HALFWAY USE ORAL HYPOGLYCEMIC DX] Onset: 07-31-2022 Episodic [...] OF COVID-19] Onset: 03-06-2022 Unclassified (1 source) 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 [address] Vertical Borer: Eliud Leonard MD BUN/CRE Ratio 20 Normal 12-11 [facility] Comment on above: Performed By: #### B MP #### [facility] [address] [place] [address] Vertical Borer: Eliud Leonard MD Calcium [Mass/Vol] 8.5 mg/dL Low 8.6-10.4 [facility] Comment on above: Performed By: #### B MP #### [facility] [address] [place] [address] Vertical Borer: Eliud Leonard MD Chloride [Moles/Vol] 108 mmol/L High 98-107 [facility] Comment on above: Performed By: #### B MP #### [facility] [address] [place], [place] [id number] Vertical Borer: Eliud Leonard MD CO2 [Moles/Vol] 26 mmol/L Normal 20-31 [facility] Comment on above: Performed By: #### B MP #### [facility] [address] [place] [address] Vertical Borer: Eliud Leonard MD Creatinine [Mass/Vol] 1.6 mg/dL High 0.70-1.20 [facility] Comment on above: Performed By: #### B MP #### [facility] [address] [place] [address] Vertical Borer: Eliud Leonard MD GFR/1.73 sq M.predicted among non-blacks MDRD (S/P/Bld) [Vol rate/Area] 41 mL/min/{1.73_m2} Low >60 [facility] Comment on above: Result Comment: These results [...] secretion. Performed By: #### B MP #### [facility] [address] [place] [address] Vertical Borer: Eliud Leonard MD Glucose [Mass/Vol] 66 mg/dL Low 74-99 [facility] Comment on above: Performed By: #### B MP #### [facility] [address] [place] [address] Vertical Borer: Eliud Leonard MD Potassium [Moles/Vol] 4.3 mmol/L Normal 3.7-5.3 [facility] Comment on above: Performed By: #### B MP #### [facility] [address] [place] [address] Vertical Borer: Eliud Leonard MD Sodium [Moles/Vol] 143 mmol/L Normal 136-145 [facility] Comment on above: Performed By: #### B MP #### [address] [place] [address] Vertical Borer: Eliud Leonard MD Urea nitrogen [Mass/Vol] 32 mg/dL High 8-23 [facility] Comment on above: Performed By: #### B MP #### [facility] [address] [place] [address] [place] [address] Vertical Borer: Eliud Leonard MD Cult,Urineon 12-01-2023 Cult,Urine Specimen Description .CLEAN CATCH URINE Culture NO SIGNIFICANT GROWTH Report Status FINAL 12/01/2023 Normal [facility] Comment on above: Performed By: #### U RC #### [address] [id number] Vertical Borer: [place] MD [facility] [address] [place] [address] [place] [address] Vertical Borer: Eliud Leonard MD Urinalysis, Routineon 2023 Bilirubin, SemiQt,Ur Negative Normal NEG [facility] Comment on above: Performed By: #### U A #### [address] [place] [address] Vertical Borer: Eliud Leonard MD Blood, Urine Negative Normal NEG [facility] Comment on above: Performed By: #### U A #### [facility] [address] [place] [address] Vertical Borer: Eliud Leonard MD Clarity (U) Clear Normal CLEAR [facility] Comment on above: Performed By: #### U A #### [facility] [address] [place] [address] Vertical Borer: Eliud Leonard MD Color (U) Yellow Normal YEL [facility] Comment on above: Performed By: #### U A #### [facility] [address] [place], [place] [id number] Vertical Borer: Eliud Leonard MD Glucose Ql (U) Negative Normal NEG [facility] Comment on above: Performed By: #### U A #### [facility] [address] [place] [address] [place] [address] Vertical Borer: Eliud Leonard MD Ketones Ql (U) Negative Normal NEG [facility] Comment on above: Performed By: #### U A #### [facility] [address] [place] [address] [place], [place] [phone] Vertical Borer: Eliud Leonard MD Leukocyte esterase Test strip Ql (U) Negative Normal NEG [facility] Comment on above: Performed By: #### U A #### [facility] [address] [place] [address] [place] [address] Vertical Borer: Eliud Leonard MD Nitrite,Ur Negative Normal NEG [facility] Comment on above: Performed By: #### U A #### [facility] [address] [place], [place] [phone] Vertical Borer: Eliud Leonard MD PH,Ur 6.0 Normal 5.0-9.0 [facility] Comment on above: Performed By: #### U A #### [facility] [address] [place], [place] [id number] Vertical Borer: Eliud Leonard MD Protein Ql (U) Negative Normal NEG [facility] Comment on above: Performed By: #### U A #### [facility] [address] [place], [place] [phone] Vertical Borer: Eliud Leonard MD Spec. Pana,Ur 1.020 Normal 1.010-1.020 [facility] Comment on above: Performed By: #### U A #### [facility] [address] [place], [place] [phone] Vertical Borer: Eliud Leonard MD Urobilinogen,Ur Normal Normal 0.0-1.0 [facility] Comment on above: Performed By: #### U A #### [facility] [address] [place], [place] [phone] Vertical Borer: Eliud Leonard MD CT CERVICAL SPINE WO [...] midline. The ventricles and peripheral sulci are qccd-[id number] dilated. There is decreased attenuation in the [...] Deacon Justice MD 11/28/23 Final result Normal [facility] CT HEAD WO CONTRASTon 2023 CT HEAD [...] midline. The ventricles and peripheral sulci are [id number] dilated. There is decreased attenuation in the [...] Deacon Justice MD 11/28/23 Final result Normal [facility] 30on 11-22-2023 30 The patient is Moderately [...] and maintained or improved Outcome: Progressing Normal [facility] BASIC METABOLIC PANELon 08-3 Anion gap [Moles/Vol] 10 mmol/L Normal 7-20 [facility] Comment on above: Performed By: #### L [id number] ####[facility] ([facility])[address] [place] [address] Calcium [Mass/Vol] 8.0 mg/dL Low 8.6-10.3 [facility] Comment on above: Performed By: #### L [id number] ####[facility] ([facility])[address] [place] [address] Chloride [Moles/Vol] 111 mmol/L High 98-107 [facility] Comment on above: Performed By: #### L [id number] ####[facility] ([facility])[address] [place] [address] CO2 [Moles/Vol] 29 mmol/L Normal 21-31 [facility] Comment on above: Performed By: #### L [id number] ####[facility] ([facility])[address] [place] [address] Creatinine [Mass/Vol] 1.36 mg/dL High 0.70-1.30 [facility] Comment on above: Performed By: #### L [id number] ####[facility] ([facility])[address] [place] [address] GLOMERULAR FILTRATION RATE ML/MIN/1.73 SQ M.PREDICTED 51.0 mL/min/1.73m*2 Low >60.0 [facility] Comment on above: Result Comment: The [facility]???s estimated glomerular filtration rate (eGFR) will [...] of individuals. Performed By: #### L [id number] ####[facility] ([facility])[address] [place] [address] Glucose [Mass/Vol] 150 mg/dL High 70-100 [facility] Comment on above: Performed By: #### L [id number] ####[facility] ([facility])[address] [place] [address] Potassium [Moles/Vol] 3.3 mmol/L Low 3.5-5.1 [facility] Comment on above: Performed By: #### L [id number] ####[facility] ([facility])[address] [place] [address] Sodium [Moles/Vol] 147 mmol/L High 136-145 [facility] Comment on above: Performed By: #### L [id number] ####[facility] ([facility])[address] [place] [address] Urea nitrogen [Mass/Vol] 25 mg/dL Normal 7-25 [facility] Comment on above: Performed By: #### L [id number] ####[facility] ([facility])[address] [place] [address] UREA NITROGEN/CREATININ E (MASS RATIO) IN SER/PLAS 18.4 Normal [facility] Comment on above: Performed By: #### L [id number] ####[facility] ([facility])[address] [place] [address] CBC WITH AUTO DIFFERENTIALon 11-22-2023 Basophils (Bld) [#/Vol] 0.06 10*3/uL Normal 0.00-0.20 [facility] Comment on above: Performed By: #### L [id number] ####[facility] ([facility])[address] [place] [address] Basophils/100 WBC (Bld) 0.7 % Normal 0.0-1.0 [facility] Comment on above: Performed By: #### L [id number] ####[facility] ([facility])[address] [place] [address] Eosinophils (Bld) [#/Vol] 0.37 10*3/uL Normal 0.00-0.50 [facility] Comment on above: Performed By: #### L [id number] ####[facility] ([facility])[address] [place] [address] Eosinophils/100 WBC (Bld) 4.2 % Normal 0.0-6.0 [facility] Comment on above: Performed By: #### L [id number] ####[facility] ([facility])[address] [place] [address] Erythrocyte distribution width (RBC) [Ratio] 15.2 % High 11.5-15.0 [facility] Comment on above: Performed By: #### L [id number] ####[facility] ([facility])[address] [place] [address] ERYTHROCYTE MEAN CORPUSCULAR HEMOGLOBIN CONCENTRATION (G/DL) BY AUTOMATED 32.6 g/dL Normal 32.0-35.0 [facility] Comment on above: Performed By: #### L [id number] ####[facility] ([facility])[address] [place] [address] Hematocrit (Bld) [Volume fraction] 38.3 % Low 39.0-55.0 [facility] Comment on above: Performed By: #### L [id number] ####[facility] ([facility])[address] [place] [address] Hemoglobin (Bld) [Mass/Vol] 12.5 g/dL Low 13.0-17.0 [facility] Comment on above: Performed By: #### L [id number] ####[facility] ([facility])[address] [place] [address] Immature granulocytes (Bld) [#/Vol] 0.15 10*3/uL Normal 0.00-0.20 [facility] Comment on above: Performed By: #### L [id number] ####[facility] ([facility])[address] [place] [address] Immature granulocytes/100 WBC (Bld) 1.7 % High 0.0-1.0 [facility] Comment on above: Performed By: #### L [id number] ####[facility] ([facility])[address] [place] [address] Lymphocytes (Bld) [#/Vol] 1.19 10*3/uL Low 1.20-4.00 [facility] Comment on above: Performed By: #### L [id number] ####[facility] ([facility])[address] [place] [address] Lymphocytes/100 WBC (Bld) 13.6 % Low 20.0-45.0 [facility] Comment on above: Performed By: #### L [id number] ####[facility] ([facility])[address] [place] [address] MCH (RBC) [Entitic mass] 32.4 pg Normal 27.0-33.0 [facility] Comment on above: Performed By: #### L [id number] ####[facility] ([facility])[address] [place] [address] MCV (RBC) [Entitic vol] 99.2 fL High 82.0-98.0 [facility] Comment on above: Performed By: #### L [id number] ####[facility] ([facility])[address] [place] [address] Monocytes (Bld) [#/Vol] 0.93 10*3/uL Normal 0.10-1.00 [facility] Comment on above: Performed By: #### L [id number] ####[facility] ([facility])[address] [place] [address] Monocytes/100 WBC (Bld) 10.6 % Normal 5.0-12.0 [facility] Comment on above: Performed By: #### L [id number] ####[facility] [place] [address] Neutrophils (Bld) [#/Vol] 6.06 10*3/uL Normal 1.60-7.60 [facility] Comment on above: Performed By: #### L [id number] ####[facility] [place] [address] Neutrophils/100 WBC (Bld) 69.2 % Normal 40.0-72.0 [facility] Comment on above: Performed By: #### L [id number] ####[facility] [place] [address] NRBC (PER 100 WBCS) BY AUTOMATED COUNT 0.0 % Normal 0 [facility] Comment on above: Performed By: #### L [id number] ####[facility] ([facility])[address] [place] [address] PLATELETS (10*3/UL) IN BLOOD AUTOMATED COUNT 167 10*3/uL Normal 150-400 [facility] Comment on above: Performed By: #### L [id number] ####[facility] ([facility])[address] [place] [address] RBC (Bld) [#/Vol] 3.86 10*6/uL Low 4.20-5.70 [facility] Comment on above: Performed By: #### L [id number] ####[facility] ([facility])[address] [place] [address] WBC (Bld) [#/Vol] 8.76 10*3/uL Normal 4.00-10.60 [facility] Comment on above: Performed By: #### L [id number] ####[facility] ([facility])[address] [place] [address] 30on 11-21-2023 30 The patient is Moderately Stable - Low risk of patient condition declining or worsening The patient's goals for the shift include rest/comfort The clinical goals for the shift include VSS Problem: Pain - Adult Goal: Verbalizes/displays adequate comfort level or baseline comfort level Outcome: Progressing Problem: Safety - Adult Goal: Free from fall injury Outcome: Progressing Normal [facility] 30 The patient is Moderately Stable [...] and maintained or improved Outcome: Progressing Normal [facility] BASIC METABOLIC PANELon 08-3 Anion gap [Moles/Vol] 9 mmol/L Normal 7- [facility] Comment on above: Performed By: #### L [id number] ####[facility] ([facility])[address] [place] [address] Calcium [Mass/Vol] 8.0 mg/dL Low 8.6-10.3 [facility] Comment on above: Performed By: #### L [id number] ####[facility] ([facility])[address] [place] [address] Chloride [Moles/Vol] 113 mmol/L High 98-107 [facility] Comment on above: Performed By: #### L [id number] ####[facility] ([facility])[address] [place] [address] CO2 [Moles/Vol] 27 mmol/L Normal - [facility] Comment on above: Performed By: #### L [id number] ####[facility] ([facility])[address] [place] [address] Creatinine [Mass/Vol] 1.47 mg/dL High 0.70-1.30 [facility] Comment on above: Performed By: #### L [id number] ####[facility] ([facility])[address] [place] [address] GLOMERULAR FILTRATION RATE ML/MIN/1.73 SQ M.PREDICTED 46.5 mL/min/1.73m*2 Low >60.0 [facility] Comment on above: Result Comment: The [facility]???s estimated glomerular filtration rate (eGFR) will [...] of individuals. Performed By: #### L [id number] ####[facility] ([facility])[address] [place] [address] Glucose [Mass/Vol] 135 mg/dL High 70-100 [facility] Comment on above: Performed By: #### L [id number] ####[facility] ([facility])[address] [place] [address] Potassium [Moles/Vol] 3.3 mmol/L Low 3.5-5.1 [facility] Comment on above: Performed By: #### L [id number] ####[facility] ([facility])[address] [place] [address] Sodium [Moles/Vol] 146 mmol/L High 136-145 [facility] Comment on above: Performed By: #### L [id number] ####[facility] ([facility])[address] [place] [address] Urea nitrogen [Mass/Vol] 35 mg/dL High 7-25 [facility] Comment on above: Performed By: #### L [id number] ####[facility] ([facility])[address] [place] [address] UREA NITROGEN/CREATININ E (MASS RATIO) IN SER/PLAS 23.8 Normal [facility] Comment on above: Performed By: #### L [id number] ####[facility] ([facility])[address] [place] [address] CBCon 11-21-2023 Erythrocyte distribution width (RBC) [Ratio] 15.3 % High 11.5-15.0 [facility] Comment on above: Performed By: #### L [id number] ####[facility] ([facility])[address] [place] [address] ERYTHROCYTE MEAN CORPUSCULAR HEMOGLOBIN CONCENTRATION (G/DL) BY AUTOMATED 32.7 g/dL Normal 32.0-35.0 [facility] Comment on above: Performed By: #### L [id number] ####[facility] ([facility])[address] [place] [address] Hematocrit (Bld) [Volume fraction] 38.5 % Low 39.0-55.0 [facility] Comment on above: Performed By: #### L [id number] ####[facility] ([facility] [place] [address] Hemoglobin (Bld) [Mass/Vol] 12.6 g/dL Low 13.0-17.0 [facility] Comment on above: Performed By: #### L [id number] ####[facility] ([facility])[address] [place] [address] MCH (RBC) [Entitic mass] 32.1 pg Normal 27.0-33.0 [facility] Comment on above: Performed By: #### L [id number] ####[facility] ([facility])[address] [place] [address] MCV (RBC) [Entitic vol] 98.2 fL High 82.0-98.0 [facility] Comment on above: Performed By: #### L [id number] ####[facility] ([facility])[address] [place] [address] PLATELETS (10*3/UL) IN BLOOD AUTOMATED COUNT 172 10*3/uL Normal 150-400 [facility] Comment on above: Performed By: #### L [id number] ####[facility] ([facility])[address] [place] [address] RBC (Bld) [#/Vol] 3.92 10*6/uL Low 4.20-5.70 [facility] Comment on above: Performed By: #### L [id number] ####[facility] ([facility])[address] [place] [address] WBC (Bld) [#/Vol] 9.67 10*3/uL Normal 4.00-10.60 [facility] Comment on above: Performed By: #### L [id number] ####[facility] ([facility])[address] [place] [address] 30on 11-20-2023 30 The patient is Moderately Stable - Low risk of patient condition declining or worsening The patient's goals for the shift include restraints off The clinical goals for the shift include stable hemodynamics Over the shift, the patient did not make progress toward the following goals. Normal [facility] 30 Daily Case Managemen t Update [...] OT Six Click Score: 8 PT Recommendations: group home facility placement OT Recommendations: group home facility placement New Consults: Ancillary Consults (From admission, onward) Start Ordered 11/19/23 0924 Inpatient consult to Social Work Once Provider: (Not yet assigned) Question Answer Comment Select all services needed for the patient [facility] (30 day convalescent stay) Please indicate [...] OT? Answer: eval and treat 11/19/23 0756 [facility] CONSULTon 11-20-2023 CONSULT -- Attestation signed by Juan Pablo Liz MD at 11/21/2023 12:08 PM As noted. Patient to be staffed in person on 11/20 Psychiatry Consultation Service - New Assessment Patient Name: Nat Moore MRN / CSN: [id number] Date of / Age: 2 1940 / [...] mild cognitive impairment originally presenting to the [facility] Emergency Room on 11/15/2023 for evaluation of recurrent episodes of syncope secondary to spontaneous prolonged sinus pause. The patient was transferred via air ambulance from the [facility]. Psychiatry was consulted for management of agitation secondary to dementia . Emergency Room Course: Imaging/Workup: On arrival to [facility] the patient's blood pressure was 158/72 mmHg, pulse rate 78 bpm, regular, SpO2 100% on room air, respiratory rate 20/min, temperature 97.2. 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 CT of the abdomen with contrast done at [facility] showed nonobstructive bowel gas pattern with [...] would con (more content not included)... Normal [facility] NURSNOTEon 11-20-2023 NURSNOTE Patient Name: Nat [...] voiced no concerns at this time. The technical writer urged the primary RN to call the rapid team if any concerns arise overnight. Chevy Hines RN Rapid Response Team Nurse [phone] 11/20/2023 11:34 PM Normal [facility] 30on 11-19-2023 30 Daily Case Managemen t Update Multidisciplinary rounds have been completed. Barriers to Discharge: 11/18- patient here from [facility] for recurrent episodes of syncope secondary to spontaneous prolonged sinus pauses. During his stay in [facility] he suddenly developed bradycardia prolonged sinus [...] Select all services needed for the patient [facility] (30 day convalescent stay) Please indicate [...] Answer: eval and treat 11/19/23 0756 Normal [facility] BASIC METABOLIC PANELon 10-23 Anion gap [Moles/Vol] 11 mmol/L Normal 7-20 [facility] Comment on above: Performed By: #### L [id number] ####[facility] ([facility])[address] [place] [address] Calcium [Mass/Vol] 8.0 mg/dL Low 8.6-10.3 [facility] Comment on above: Performed By: #### L [id number] ####[facility] ([facility])[address] [place] [address] Chloride [Moles/Vol] 112 mmol/L High 98-107 [facility] Comment on above: Performed By: #### L [id number] ####[facility] ([facility])[address] [place] [address] CO2 [Moles/Vol] 26 mmol/L Normal 21-31 [facility] Comment on above: Performed By: #### L [id number] ####[facility] ([facility])[address] [place] [address] Creatinine [Mass/Vol] 1.69 mg/dL High 0.70-1.30 [facility] Comment on above: Performed By: #### L [id number] ####[facility] ([facility])[address] [address] [facility] [address] GLOMERULAR FILTRATION RATE ML/MIN/1.73 SQ M.PREDICTED 39.3 mL/min/1.73m*2 Low >60.0 [facility] Comment on above: Result Comment: The [facility]???s estimated glomerular filtration rate (eGFR) will [...] of individuals. Performed By: #### L [id number] ####[facility] ([facility])[address] [place] [address] Glucose [Mass/Vol] 122 mg/dL High 70-100 [facility] Comment on above: Performed By: #### L [id number] ####[facility] ([facility])[address] [place] [address] Potassium [Moles/Vol] 3.5 mmol/L Normal 3.5-5.1 [facility] Comment on above: Performed By: #### L [id number] ####[facility] ([facility])[address] [place] [address] Sodium [Moles/Vol] 145 mmol/L Normal 136-145 [facility] Comment on above: Performed By: #### L [id number] ####[facility] ([facility])[address] [place] [address] Urea nitrogen [Mass/Vol] 49 mg/dL High 7-25 [facility] Comment on above: Performed By: #### L [id number] ####[facility] ([facility])[address] [place] [address] UREA NITROGEN/CREATININ E (MASS RATIO) IN SER/PLAS 29.0 Normal [facility] Comment on above: Performed By: #### L [id number] ####[facility] ([facility])[address] [place] [address] CBCon 11-19-2023 Erythrocyte distribution width (RBC) [Ratio] 15.0 % Normal 11.5-15.0 [facility] Comment on above: Performed By: #### L [id number] #### [facility] ([facility]) [address] [place] [address] ERYTHROCYTE MEAN CORPUSCULAR HEMOGLOBIN CONCENTRATION (G/DL) BY AUTOMATED 32.8 g/dL Normal 32.0-35.0 [facility] Comment on above: Performed By: #### L [id number] #### [facility] ([facility]) [address] [place] [address] Hematocrit (Bld) [Volume fraction] 38.7 % Low 39.0-55.0 [facility] Comment on above: Performed By: #### L [id number] #### [facility] ([facility]) [address] [place] [address] Hemoglobin (Bld) [Mass/Vol] 12.7 g/dL Low 13.0-17.0 [facility] Comment on above: Performed By: #### L [id number] #### [facility] ([facility]) [address] [place] [address] MCH (RBC) [Entitic mass] 31.8 pg Normal 27.0-33.0 [facility] Comment on above: Performed By: #### L [id number] #### [facility] ([facility]) [address] [place] [address] MCV (RBC) [Entitic vol] 97.0 fL Normal 82.0-98.0 [facility] Comment on above: Performed By: #### L [id number] #### [facility] ([facility]) [address] [place] [address] PLATELETS (10*3/UL) IN BLOOD AUTOMATED COUNT 148 10*3/uL Low 150-400 [facility] Comment on above: Performed By: #### L [id number] #### [facility] ([facility]) [address] [place] [address] RBC (Bld) [#/Vol] 3.99 10*6/uL Low 4.20-5.70 [facility] Comment on above: Performed By: #### L [id number] #### [facility] ([facility]) [address] [place] [address] WBC (Bld) [#/Vol] 7.82 10*3/uL Normal 4.00-10.60 [facility] Comment on above: Performed By: #### L [id number] #### [facility] ([facility]) [address] [address] [place] 11-17-2023 ANES -- Attestation signed by [...] Information Date: 11/17/23 Procedure: Implant PPM Location: [facility] ([facility]) Providers: Nora Rivera MD Clinical information reviewed: Allergies Meds Physical Exam Airway Mallampati: III Cardiovascular Rhythm: regular Rate: normal Dental Pulmonary Breath sounds clear to auscultation Abdominal Abdomen: soft Anesthesia Plan Additional Equipment Requests Normal [facility] BASIC METABOLIC PANELon - Anion gap [Moles/Vol] 11 mmol/L Normal 7-20 [facility] Comment on above: Performed By: #### L [id number] #### [facility] ([facility]) [address] [place] [address] Calcium [Mass/Vol] 8.0 mg/dL Low 8.6-10.3 [facility] Comment on above: Performed By: #### L [id number] #### [facility] ([facility]) [address] [place] [address] Chloride [Moles/Vol] 109 mmol/L High 98-107 [facility] Comment on above: Performed By: #### L [id number] #### [facility] ([facility]) [address] [address] CO2 [Moles/Vol] 25 mmol/L Normal 21-31 [facility] Comment on above: Performed By: #### L [id number] #### [facility] ([facility]) [address] [place] [address] Creatinine [Mass/Vol] 1.42 mg/dL High 0.70-1.30 [facility] Comment on above: Performed By: #### L [id number] #### [facility] ([facility]) [address] [place] [address] GLOMERULAR FILTRATION RATE ML/MIN/1.73 SQ M.PREDICTED 48.4 mL/min/1.73m*2 Low >60.0 [facility] Comment on above: Result Comment: The [facility]???s estimated glomerular filtration rate (eGFR) will [...] individuals. Performed By: #### L [id number] #### [facility] ([facility]) [address] [place] [address] Glucose [Mass/Vol] 169 mg/dL High 70-100 [facility] Comment on above: Performed By: #### L [id number] #### [facility] ([facility]) [address] [place] [address] Potassium [Moles/Vol] 4.3 mmol/L Normal 3.5-5.1 [facility] Comment on above: Performed By: #### L [id number] #### [facility] ([facility]) [address] [place] [address] Sodium [Moles/Vol] 141 mmol/L Normal 136-145 [facility] Comment on above: Performed By: #### L [id number] #### [facility] ([facility]) [address] [place] [address] Urea nitrogen [Mass/Vol] 33 mg/dL High 7-25 [facility] Comment on above: Performed By: #### L [id number] #### [facility] ([facility]) [address] [place] [address] UREA NITROGEN/CREATININ E (MASS RATIO) IN SER/PLAS 23.2 Normal [facility] Comment on above: Performed By: #### L [id number] #### [facility] ([facility]) [address] [place] [address] CBCon 11-17-2023 Erythrocyte distribution width (RBC) [Ratio] 14.9 % Normal 11.5-15.0 [facility] Comment on above: Performed By: #### L [id number] #### [facility] ([facility]) [address] [address] ERYTHROCYTE MEAN CORPUSCULAR HEMOGLOBIN CONCENTRATION (G/DL) BY AUTOMATED 32.2 g/dL Normal 32.0-35.0 [facility] Comment on above: Performed By: #### L [id number] #### [facility] ([facility]) [address] [place] [address] Hematocrit (Bld) [Volume fraction] 39.5 % Normal 39.0-55.0 [facility] Comment on above: Performed By: #### L [id number] #### [facility] ([facility]) [address] [place] [address] Hemoglobin (Bld) [Mass/Vol] 12.7 g/dL Low 13.0-17.0 [facility] Comment on above: Performed By: #### L [id number] #### [facility] ([facility]) [address] [place] [address] MCH (RBC) [Entitic mass] 31.8 pg Normal 27.0-33.0 [facility] Comment on above: Performed By: #### L [id number] #### [facility] ([facility]) [address] [place] [address] MCV (RBC) [Entitic vol] 99.0 fL High 82.0-98.0 [facility] Comment on above: Performed By: #### L [id number] #### [facility] ([facility]) [address] [place] [address] PLATELETS (10*3/UL) IN BLOOD AUTOMATED COUNT 157 10*3/uL Normal 150-400 [facility] Comment on above: Performed By: #### L [id number] #### [facility] ([facility]) [address] [place] [address] RBC (Bld) [#/Vol] 3.99 10*6/uL Low 4.20-5.70 [facility] Comment on above: Performed By: #### L [id number] #### [facility] ([facility]) [address] [place] [address] WBC (Bld) [#/Vol] 9.04 10*3/uL Normal 4.00-10.60 [facility] Comment on above: Performed By: #### L [id number] #### [facility] ([facility]) [address] [place] [address] HEMOGLOBIN A1Con 11-17-2023 Glucose [Mass/Vol] 114 mg/dL Normal [facility] Comment on above: Order Comment: NO [facility] RIANT Performed By: #### L [id number] ####[facility] ([facility])[address] [place] [address] HbA1c (Bld) [Mass fraction] 5.6 % Normal 4.0-6.0 [facility] Comment on above: Order Comment: NO VA RIANT Performed By: #### L [id number] ####[facility] ([facility])[address] [place] [address] HPon 11-17-2023 HP -- Attestation signed by [...] placement of PPM in the AM. Normal [facility] LIPID PANELon 11-17-2023 CHOL/HDL 3.8 mg/dL Normal [facility] Comment on above: Performed By: #### L [id number] ####[facility] ([employer])[address] [place] [address] Cholesterol [Mass/Vol] 127 mg/dL Normal 120-200 [facility] Comment on above: Performed By: #### L [id number] ####[facility] [employer])[address] [place] [address] Magnesium [Mass/Vol] 81 mg/dL Normal 40-149 [facility] Comment on above: Result Comment: TRIG LYCERIDE REFERENCE RANGE: 20 YEARS AND OLDER CARDIOVASCULAR RISK LESS THAN 150 mg/dL LOW RISK 150 TO 199 mg/dL BORDERLINE RISK 200 mg/dL AND GREATER HIGH RISK Performed By: #### L [id number] ####[facility] ([facility])[address] [place] [address] Magnesium [Mass/Vol] 78 mg/dL Normal 0-160 [facility] Comment on above: Performed By: #### L [id number] ####[facility] ([facility])[address] [place] [address] Magnesium [Mass/Vol] 33 mg/dL Normal 23-92 [facility] Comment on above: Performed By: #### L [id number] ####[facility] ([facility])[address] [place] [address] NON HDL CHOL. (LDL+VLDL) 94 Normal [facility] Comment on above: Performed By: #### L [id number] ####[facility] ([facility])[address] [place] [address] TOTAL VLDL-C 16 mg/dL Normal 0-40 [facility] Comment on above: Performed By: #### L [id number] ####[facility] ([facility])[address] [place] [address] LIPOPROTEIN A (LPA)on 2023 Magnesium [Mass/Vol] 23 mg/dL Normal <=29 [facility] Comment on above: Result Comment: Perf ormed By: [employer] [address] [place] [id number] Leather Sprayer: Rivas Castillo MD, PhD CLIA Number: [id number] Performed By: #### L [id number] #### [facility] ([facility]) [address] [place] [address] MAGNESIUMon 11-17-2023 Magnesium [Mass/Vol] 2.0 mg/dL Normal 1.9-2.7 [facility] Comment on above: Performed By: #### L [id number] ####[facility] ([facility])[address] [place] [address] PHOSPHORUSon 11-17-2023 Magnesium [Mass/Vol] 3.1 mg/dL Normal 2.5-5.0 [facility] Comment on above: Performed By: #### L [id number] #### [facility] ([facility]) [address] [place] [address] 30on 11-16-2023 30 The patient is Moderately [...] or at baseline Outcome: Not Progressing Normal [facility] ANESon 11-16-2023 ANES Patient: Nat Moore [...] Equipment Requests Jovita Sanchez MD, MPH, FACC, [facility], [facility] Interventional Cardiology Pager Email: [email or web address] Normal [facility] B-TYPE NATRIURETIC PEPTIDEon 11-16-2023 Natriuretic peptide B (Bld) [Mass/Vol] 103 pg/mL High 0-100 [facility] Comment on above: Performed By: #### L [id number] #### [facility] ([facility]) [address] [place] [address] BASIC METABOLIC PANELon 10-23 Anion gap [Moles/Vol] 10 mmol/L Normal 7-20 [facility] Comment on above: Performed By: #### L [id number] #### [facility] ([facility]) [address] [place] [address] Calcium [Mass/Vol] 8.2 mg/dL Low 8.6-10.3 [facility] Comment on above: Performed By: #### L [id number] #### [facility] ([facility]) [address] [place] [address] Chloride [Moles/Vol] 108 mmol/L High 98-107 [facility] Comment on above: Performed By: #### L [id number] #### [facility] ([facility]) [address] [place] [address] CO2 [Moles/Vol] 27 mmol/L Normal 21-31 [facility] Comment on above: Performed By: #### L [id number] #### [facility] ([facility]) [address] [address] Creatinine [Mass/Vol] 1.53 mg/dL High 0.70-1.30 [facility] Comment on above: Performed By: #### L [id number] #### [facility] ([facility]) [address] [place] [address] GLOMERULAR FILTRATION RATE ML/MIN/1.73 SQ M.PREDICTED 44.3 mL/min/1.73m*2 Low >60.0 [facility] Comment on above: Result Comment: The [facility]???s estimated glomerular filtration rate (eGFR) will [...] individuals. Performed By: #### L [id number] #### [facility] ([facility]) [address] [place] [address] Glucose [Mass/Vol] 124 mg/dL High 70-100 [facility] Comment on above: Performed By: #### L [id number] #### [facility] ([facility]) [address] [place] [address] Potassium [Moles/Vol] 4.3 mmol/L Normal 3.5-5.1 [facility] Comment on above: Performed By: #### L [id number] #### [facility] ([facility]) [address] [place] [address] Sodium [Moles/Vol] 141 mmol/L Normal 136-145 [facility] Comment on above: Performed By: #### L [id number] #### [facility] ([facility]) [address] [place] [address] Urea nitrogen [Mass/Vol] 31 mg/dL High 7-25 [facility] Comment on above: Performed By: #### L [id number] #### [facility] ([facility]) [address] [place] [address] UREA NITROGEN/CREATININ E (MASS RATIO) IN SER/PLAS 20.3 Normal [facility] Comment on above: Performed By: #### L [id number] #### [facility] ([facility]) [address] [place] [address] Anion gap [Moles/Vol] 10 mmol/L Normal 7-20 [facility] Comment on above: Performed By: #### L [id number] #### [facility] ([facility]) [address] [place] [address] Calcium [Mass/Vol] 8.1 mg/dL Low 8.6-10.3 [facility] Comment on above: Performed By: #### L [id number] #### [facility] ([facility]) [address] [place] [address] Chloride [Moles/Vol] 108 mmol/L High 98-107 [facility] Comment on above: Performed By: #### L [id number] #### [facility] ([facility]) [address] [place] [address] CO2 [Moles/Vol] 27 mmol/L Normal 21-31 [facility] Comment on above: Performed By: #### L [id number] #### [facility] ([facility]) [address] [place] [address] Creatinine [Mass/Vol] 1.40 mg/dL High 0.70-1.30 [facility] Comment on above: Performed By: #### L [id number] #### [facility] ([facility]) [address] [place] [address] GLOMERULAR FILTRATION RATE ML/MIN/1.73 SQ M.PREDICTED 49.3 mL/min/1.73m*2 Low >60.0 [facility] Comment on above: Result Comment: The [facility]???s estimated glomerular filtration rate (eGFR) will [...] individuals. Performed By: #### L [id number] #### [facility] ([facility]) [address] [place] [address] Glucose [Mass/Vol] 136 mg/dL High 70-100 [facility] Comment on above: Performed By: #### L [id number] #### [facility] ([facility]) [address] [place] [address] Potassium [Moles/Vol] 4.3 mmol/L Normal 3.5-5.1 [facility] Comment on above: Performed By: #### L [id number] #### [facility] ([facility]) [address] [place] [address] Sodium [Moles/Vol] 141 mmol/L Normal 136-145 [facility] Comment on above: Performed By: #### L [id number] #### [facility] ([facility]) [address] [place] [address] Urea nitrogen [Mass/Vol] 27 mg/dL High 7-25 [facility] Comment on above: Performed By: #### L [id number] #### [facility] ([facility]) [address] [place] [address] UREA NITROGEN/CREATININ E (MASS RATIO) IN SER/PLAS 19.3 Normal [facility] Comment on above: Performed By: #### L [id number] #### [facility] ([facility]) [address] [place] [address] CBCon 11-16-2023 Erythrocyte distribution width (RBC) [Ratio] 15.1 % High 11.5-15.0 [facility] Comment on above: Performed By: #### L [id number] #### [facility] ([facility]) [address] [place] [address] ERYTHROCYTE MEAN CORPUSCULAR HEMOGLOBIN CONCENTRATION (G/DL) BY AUTOMATED 32.4 g/dL Normal 32.0-35.0 [facility] Comment on above: Performed By: #### L [id number] #### [facility] ([facility]) [address] [place] [address] Hematocrit (Bld) [Volume fraction] 36.7 % Low 39.0-55.0 [facility] Comment on above: Performed By: #### L [id number] #### [facility] ([facility]) [address] [place] [address] Hemoglobin (Bld) [Mass/Vol] 11.9 g/dL Low 13.0-17.0 [facility] Comment on above: Performed By: #### L [id number] #### [facility] ([facility]) [address] [place] [address] MCH (RBC) [Entitic mass] 32.0 pg Normal 27.0-33.0 [facility] Comment on above: Performed By: #### L [id number] #### [facility] ([facility]) [address] [place] [address] MCV (RBC) [Entitic vol] 98.7 fL High 82.0-98.0 [facility] Comment on above: Performed By: #### L [id number] #### [facility] ([facility]) [address] [place] [address] PLATELETS (10*3/UL) IN BLOOD AUTOMATED COUNT 157 10*3/uL Normal 150-400 [facility] Comment on above: Performed By: #### L [id number] #### [facility] ([facility]) [address] [place] [address] RBC (Bld) [#/Vol] 3.72 10*6/uL Low 4.20-5.70 [facility] Comment on above: Performed By: #### L [id number] #### [facility] ([facility]) [address] [place] [address] WBC (Bld) [#/Vol] 8.83 10*3/uL Normal 4.00-10.60 [facility] Comment on above: Performed By: #### L [id number] #### [facility] ([facility]) [address] [place] [address] on 11-16-2023 H&P reviewed. Apparently this morning, [...] wishes to proceed. Jovita Sanchez MD, MPH, [facility], [facility], [facility] Interventional Cardiology Pager Email: [email or web address] Normal [facility] HP -- Attestation signed by Art [...] which are billed separately. Art Mckoy MD [facility] Pulmonary and Critical Care Medicine Adult ICU History & Physical Patient - Nat Moore Age - 83 y.o. - 1940 [facility] # - [id number] Date of Admission - 11/15/2023 2:42 PM Chief Complaint Syncope History of Present Illness Nat Moore is a an 83-year-old gentleman with PMH significant for type 2 diabetes mellitus, essential hypertension, hyperlipidemia, CKD stage IIIa, bilateral lower extremity edema on diuretic therapy, osteoarthritis, depression and mild cognitive impairment was initially admitted to the hospitalist service from [facility] due to recurrent episodes of syncope secondary [...] his presenting complaints. During his stay in [facility] he suddenly developed bradycardia prolonged sinus [...] of the abdomen with contrast done at [facility] showed nonobstructive bowel gas pattern with [...] planning on taking the patient to the [facility] tomorrow for possible transvenous pacemaker placement. PMH: [...] sodium (C (more content not included)... Normal [facility] LACTIC ACID WITH 4 HOUR REFL EXon 11-16-2023 LACTATE (MMOL/L) IN SER/PLAS 1.2 mmol/L Normal 0.5-2.2 [facility] Comment on above: Performed By: #### L [id number] #### [facility] ([facility]) [address] [place] [address] MAGNESIUMon 11-16-2023 Magnesium [Mass/Vol] 2.1 mg/dL Normal 1.9-2.7 [facility] Comment on above: Performed By: #### L [id number] #### [facility] ([facility]) [address] [place] [address] Magnesium [Mass/Vol] 1.7 mg/dL Low 1.9-2.7 [facility] Comment on above: Performed By: #### L [id number] #### [facility] ([facility]) [address] [place] [address] PRO-BNPon 11-16-2023 Natriuretic peptide B (Bld) [Mass/Vol] 576 pg/mL High 0-300 [facility] Comment on above: Result Comment: An a ge-independent cutoff point of 300 pg/ml has a 98% negative predictive value excluding acute heart failure. Test Performed by [facility] [address] [place] [address] - Released 11/16/2023 20:27 Performed By: #### L [id number] ####[facility] [id number] [place] [address] TSH3 REFLEX TO FT4on 024 THYROTROPIN (MIU/L) IN SER/PLAS BY DETECTION LIMIT <= 0.05 MIU/L 1.67 mIU/L Normal 0.34-5.60 [facility] Comment on above: Performed By: #### L [id number] #### [facility] ([facility]) [address] [place] [address] 30on 11-15-2023 30 The patient is Moderately [...] and maintained or improved Outcome: Progressing Normal [facility] CBCon 11-15-2023 Erythrocyte distribution width (RBC) [Ratio] 15.2 % High 11.5-15.0 [facility] Comment on above: Performed By: #### L [id number] ####[facility] ([facility] [place] [address] ERYTHROCYTE MEAN CORPUSCULAR HEMOGLOBIN CONCENTRATION (G/DL) BY AUTOMATED 32.8 g/dL Normal 32.0-35.0 [facility] Comment on above: Performed By: #### L [id number] ####[facility] ([facility])[address] [place] [address] Hematocrit (Bld) [Volume fraction] 37.8 % Low 39.0-55.0 [facility] Comment on above: Performed By: #### L [id number] ####[facility] ([facility])[address] [place] [address] Hemoglobin (Bld) [Mass/Vol] 12.4 g/dL Low 13.0-17.0 [facility] Comment on above: Performed By: #### L [id number] ####[facility] ([facility])[address] [place] [address] MCH (RBC) [Entitic mass] 31.9 pg Normal 27.0-33.0 [facility] Comment on above: Performed By: #### L [id number] ####[facility] ([facility])[address] [place] [address] MCV (RBC) [Entitic vol] 97.2 fL Normal 82.0-98.0 [facility] Comment on above: Performed By: #### L [id number] ####[facility] ([facility])[address] [place] [address] PLATELETS (10*3/UL) IN BLOOD AUTOMATED COUNT 172 10*3/uL Normal 150-400 [facility] Comment on above: Performed By: #### L [id number] ####[facility] ([facility])[address] [place] [address] RBC (Bld) [#/Vol] 3.89 10*6/uL Low 4.20-5.70 [facility] Comment on above: Performed By: #### L [id number] ####[facility] ([facility])[address] [place] [address] WBC (Bld) [#/Vol] 8.89 10*3/uL Normal 4.00-10.60 [facility] Comment on above: Performed By: #### L [id number] ####[facility] ([facility])[address] [place] [address] COMPREHENSIVE METABOLIC PANE Dmitri 11-15-2023 Albumin [Mass/Vol] 3.7 g/dL Normal 3.5-5.7 [facility] Comment on above: Performed By: #### L [id number] #### [facility] ([facility]) [address] [place] [address] ALP [Catalytic activity/Vol] 70 U/L Normal 34-104 [facility] Comment on above: Performed By: #### L [id number] #### [facility] ([facility]) [address] [place] [address] ALT [Catalytic activity/Vol] 7 U/L Normal 7-52 [facility] Comment on above: Performed By: #### L [id number] #### [facility] ([facility]) [address] [place] [address] Anion gap [Moles/Vol] 9 mmol/L Normal 7-20 [facility] Comment on above: Performed By: #### L [id number] #### [facility] ([facility]) [address] [place] [address] AST [Catalytic activity/Vol] 11 U/L Low 13-39 [facility] Comment on above: Performed By: #### L [id number] #### [facility] ([facility]) [address] [place] [address] Bilirubin [Mass/Vol] 0.6 mg/dL Normal 0.3-1.0 [facility] Comment on above: Performed By: #### L [id number] #### [facility] ([facility]) [address] [place] [address] Calcium [Mass/Vol] 8.2 mg/dL Low 8.6-10.3 [facility] Comment on above: Performed By: #### L [id number] #### [facility] ([facility]) [address] [place] [address] Chloride [Moles/Vol] 107 mmol/L Normal 98-107 [facility] Comment on above: Performed By: #### L [id number] #### [facility] ([facility]) [address] [place] [address] CO2 [Moles/Vol] 29 mmol/L Normal 21-31 [facility] Comment on above: Performed By: #### L [id number] #### [facility] ([facility]) [address] [place] [address] Creatinine [Mass/Vol] 1.37 mg/dL High 0.70-1.30 [facility] Comment on above: Performed By: #### L [id number] #### [facility] ([facility]) [address] [place] [address] GLOMERULAR FILTRATION RATE ML/MIN/1.73 SQ M.PREDICTED 50.6 mL/min/1.73m*2 Low >60.0 [facility] Comment on above: Result Comment: The [facility]???s estimated glomerular filtration rate (eGFR) will [...] individuals. Performed By: #### L [id number] #### [facility] ([facility]) [address] [place] [address] Glucose [Mass/Vol] 120 mg/dL High 70-100 [facility] Comment on above: Performed By: #### L [id number] #### [facility] ([facility]) [address] [place] [address] Potassium [Moles/Vol] 4.1 mmol/L Normal 3.5-5.1 [facility] Comment on above: Performed By: #### L [id number] #### [facility] ([facility]) [address] [place] [address] Protein [Mass/Vol] 6.0 g/dL Normal 6.0-8.3 [facility] Comment on above: Performed By: #### L [id number] #### [facility] ([facility]) [address] [place] [address] Sodium [Moles/Vol] 141 mmol/L Normal 136-145 [facility] Comment on above: Performed By: #### L [id number] #### [facility] ([facility]) [address] [place] [address] Urea nitrogen [Mass/Vol] 26 mg/dL High 7-25 [facility] Comment on above: Performed By: #### L [id number] #### [facility] ([facility]) [address] [place] [address] UREA NITROGEN/CREATININ E (MASS RATIO) IN SER/PLAS 19.0 Normal [facility] Comment on above: Performed By: #### L [id number] #### [facility] ([facility]) [address] [place] [address] CONSULTon 11-15-2023 CONSULT Division of Cardiovascular Medicine Interventional Cardiology Consult Chief Complaint: Transfer from [place] HPI: 83 yo with h/o HTN, CKD, dyslipidemia presented to [facility] with c/o chest and back pain. While being evaluated he had episodes of prolonged sinus pauses (12-18 sec?) with loss of consciousness and vomiting. He was Life flighted to [facility]. On arrival , I evaluated him [...] infarctions or CHF. Does not see a animal treatment investigator. Patient Active Problem List Diagnosis Syncope and [...] plan on (more content not included)... Normal [facility] CT HEAD WO IV CONTRASTon CT [...] GAGANDEEP CLAUDIO MD. 3 Invalid Interpretation Code [facility] HPon 11-15-2023 Division of Cardiovascular Medicine Interventional Cardiology Consult Chief Complaint: Transfer from [place]PI: 83 yo with h/o HTN, CKD, dyslipidemia presented to [facility] with c/o chest and back pain. While being evaluated he had episodes of prolonged sinus pauses (12-18 sec?) with loss of consciousness and vomiting. He was Life flighted to [facility]. On arrival , I evaluated him [...] infarctions or CHF. Does not see a animal treatment investigator. Patient Active Problem List Diagnosis Syncope and [...] plan on (more content not included)... Normal [facility] MAGNESIUMon 11-15-2023 Magnesium [Mass/Vol] 1.7 mg/dL Low 1.9-2.7 [facility] Comment on above: Performed By: #### L [id number] #### [facility] ([facility]) [address] [place] [address] NURSNOTEon 11-15-2023 NURSNOTE Manager Port reach out to Cardiology (Dr. Figueroa) to notify her of the pt transferring to MICU due to change in condition and code blue being called. She asked if the patient was paced at bedside and nurse replied no but pt was transferred and will be paced in MICU. Normal [facility] NURSNOTE Manager Port attempted to reach out to family via home number in chart and it wasn't in service. Charge nurse MIGUEL Lloyd was notified and MICU was notified as well by MIGUEL Lloyd. Normal [facility] NURSNOTE Bedside report given to MIGUEL Ghosh prior to transfer to MICU due to change in condition and code blue being called for asystole lasting 10.19 seconds. Normal [facility] ELIEL Spoke with Dr. Wendy dominguez [...] done and we'll go from there. Normal [facility] TROPONIN Ion 11-15-2023 Troponin I.cardiac [Mass/Vol] 0.01 ng/mL Normal 0.00-0.04 [facility] Comment on above: Performed By: #### L [id number] #### [facility] ([facility]) [address] [place] [address] Urology Office/Clinic Noteon 11-12-2023 Urology Office/Clinic Note [...] call if too cost prohibitive, sent to [facility] Jillian Hutchins -f/up in 3 mos 2. [...] vac (more content not included)... Normal [facility] Comment on above: Result Comment: Elec [...] APRN, [place] X Where: [facility] [address] [place] [address]- You Need to Schedule the Following Appointments [...] Leaking ur (more content not included)... Normal [facility] Patient Letter FTon 2023 Patient Letter [facility] Patient Letter FT October 14, [address] [place] [address] : 1940 Dear Nat, You missed your [...] any future cancellations. Sincerely, [facility] [address] [facility], [place] [address] [facility] Patient Letter FTon 2023 Patient Letter FT May 13, 2023 NAT Tran [facility] [address] [place] [address] : 1940 Dear Nat, You missed your [...] [facility] [address] [place] [address] Normal [facility] BNPon 07-27-2022 Natriuretic peptide B (Bld) [Mass/Vol] 178.0 pg/mL Normal <=1,800.0 [facility] Comment on above: Performed By: #### C MP, BNP, CMADM #### [facility] [address] [place] [address] Dr. Loyd Parks CARDIAC SPARKLE ADMITon 023 CK [Catalytic activity/Vol] 50 U/L Normal 39-308 [facility] Comment on above: Performed By: #### C MP, BNP, CMADM #### [facility] [address] [place] [address] Dr. Loyd Parks CK.MB [Mass/Vol] 0.83 ng/mL Normal <=3.60 [facility] Comment on above: Performed By: #### C MP, BNP, CMADM #### [facility] [address] [place] [address] Dr. Loyd Parks HSTROP 6.3 pg/mL Normal 4.0-76.1 [facility] Comment on above: Result Comment: CUT- OFF POINTS HAVE BEEN ESTABLISHED BASED ON THE FOURTH UNIVERSAL DEFINITIONS OF MYOCARDIAL INFARCTION. THE UPPER REFERENCE LIMIT (URL) OF TROPONIN, DEFINED THE 99TH PERCENTILE OF cTnI DISTRIBUTION IN A REFERENCE POPULATION, HAS BEEN CONFIRMED THE DECISION THRESHOLD FOR IN DIAGNOSIS. Performed By: #### C MP, BNP, CMADM #### [facility] [address] [place] [address] Dr. Loyd Parks WM 121 ng/mL Critically high 16-96 [facility] Comment on above: Performed By: #### C MP, BNP, CMADM #### [facility] [address] [place] [address] Dr. Loyd Parks CBC AUTO DIFFon 07-27-2022 BASO # 0.1 103/ul Normal 0.0-0.1 [facility] Comment on above: Performed By: #### C BC #### [facility] [address] [place] [address] [address] Loyd Parks Basophils/100 WBC (Bld) 0.6 % Normal 0.2-2.0 [facility] Comment on above: Performed By: #### C BC #### [facility] [address] [address] [address] Loyd Parks EO # 0.5 103/ul Normal 0.0-0.7 [facility] Comment on above: Performed By: #### C BC #### [facility] [address] [address] [address] Loyd Parks Eosinophils/100 WBC (Bld) 4.8 % Normal 0.9-7.0 [facility] Comment on above: Performed By: #### C BC #### [facility] [address] [address] [address] Loyd Parks Erythrocyte distribution width (RBC) [Ratio] 13.5 % Normal 11.0-15.0 [facility] Comment on above: Performed By: #### C BC #### [facility] [address] [address] [address] Loyd Parks Hematocrit (Bld) [Volume fraction] 39.7 % Critically low 42.0-54.0 [facility] Comment on above: Performed By: #### C BC #### [facility] [address] [address] [address] Loyd Parks Hemoglobin (Bld) [Mass/Vol] 13.1 g/dL Critically low 14.0-18.0 [facility] Comment on above: Performed By: #### C BC #### [facility] [address] [address] [address] Loyd Parks IG # 0.05 10e3/ul Critically high 0.00-0.03 [facility] Comment on above: Performed By: #### C BC #### [facility] [address] [place] [address] Dr. Loyd Parks IG % 0.5 % Normal 0.0-0.5 [facility] Comment on above: Performed By: #### C BC #### [facility] [address] [place] [address] Dr. Loyd Parks LYMPH # 1.4 103/ul Normal 1.2-3.8 [facility] Comment on above: Performed By: #### C BC #### [facility] [address] [place] [address] Dr. Loyd Parks Lymphocytes/100 WBC (Bld) 14.1 % Critically low 20.5-60.0 [facility] Comment on above: Performed By: #### C BC #### [facility] [address] [place] [address] Dr. Loyd Parks MANUAL DIFF REQ NO Normal [facility] Comment on above: Performed By: #### C BC #### [facility] [address] [place] [address] Dr. Loyd Parks MCH (RBC) [Entitic mass] 31.6 pg Normal 25.9-34.0 [facility] Comment on above: Performed By: #### C BC #### [facility] [address] [place] [address] Dr. Loyd Parks MCHC (RBC) [Mass/Vol] 33.0 g/dL Normal 29.9-35.2 [facility] Comment on above: Performed By: #### C BC #### [facility] [address] [place] [address] Dr. Loyd Parks MCV (RBC) [Entitic vol] 95.7 fL Critically high 80.0-94.0 [facility] Comment on above: Performed By: #### C BC #### [facility] [address] [place] [address] Dr. Loyd Parks MONO # 1.0 103/ul Critically high 0.3-0.8 [facility] Comment on above: Performed By: #### C BC #### [facility] [address] [place] [address] Dr. Loyd Parks Monocytes/100 WBC (Bld) 9.7 % Normal 1.7-12.0 [facility] Comment on above: Performed By: #### C BC #### [facility] [address] [place] [address] Dr. Loyd Parks NEUT # 7.2 103/ul Critically high 1.4-6.5 [facility] Comment on above: Performed By: #### C BC #### [facility] [address] [place] [address] Dr. Loyd Parks Neutrophils/100 WBC (Bld) 70.3 % Normal 43.0-75.0 [facility] Comment on above: Performed By: #### C BC #### [facility] [address] [place] [address] Dr. Loyd Parks Platelet mean volume (Bld) [Entitic vol] 10.8 fL Normal 9.5-13.5 [facility] Comment on above: Performed By: #### C BC #### [facility] [address] [place] [address] Dr. Loyd Parks PLT 199 103/ul Normal 150-450 [facility] Comment on above: Performed By: #### C BC #### [facility] [address] [place] [address] Dr. Loyd Parks RBC 4.15 106/ul Critically low 4.70-6.10 [facility] Comment on above: Performed By: #### C BC #### [facility] [address] [place] [address] Dr. Loyd Parks WBC 10.2 103/ul Normal 4.0-11.0 [facility] Comment on above: Performed By: #### C BC #### [facility] [address] [place] [address] Dr. Loyd Parks CULTURE BLOODon 07-27-2022 Microscopic examination of blood, culture Culture Observations: NO GROWTH AT 5 DAYS. Normal [facility] Comment on above: Performed By: #### E RUR #### [facility] [address] [place] [address] Dr. Loyd Parks Covid-19 PCR (CVDTB)on SARS-CoV-2 (COVID-19) RNA SAUNDRA+probe Ql (Unsp spec) Not detected Normal NOT DETECTED [facility] Comment on above: Result Comment: This test is not yet approved or cleared by the [place] FDA. When there are no FDA-approved or cleared tests available, and other criteria are met, FDA can make tests available under an emergency access mechanism called an Emergency Use Authorization (EUA). The EUA for this test is supported by the [place] of Health and Human Service's (HHS's) declaration [...] SARS-CoV-2. Performed By: #### E RUR #### [facility] [address] [place] [address] Dr. Loyd Parks LACTATE/LACTIC ACIDon 2022 Lactate [Moles/Vol] 2.2 mmol/L Critically high 0.4-2.0 [facility] Comment on above: Performed By: #### C MP, BNP, CMADM #### [facility] [address] [place] [address] Dr. Loyd Parks PROF 14(COMP METB)on 023 Albumin [Mass/Vol] 3.3 g/dL Critically low 3.4-5.0 [facility] Comment on above: Performed By: #### C MP, BNP, CMADM #### [facility] [address] [place] [address] Dr. Loyd Parks Albumin/Globulin [Mass ratio] 0.9 {ratio} Normal [facility] Comment on above: Performed By: #### C MP, BNP, CMADM #### [facility] [address] [address] [address] Loyd Parks ALP [Catalytic activity/Vol] 91 U/L Normal 46-116 [facility] Comment on above: Performed By: #### C MP, BNP, CMADM #### [facility] [address] [address] [address] Loyd Parks ALT [Catalytic activity/Vol] 18 U/L Normal 16-63 [facility] Comment on above: Performed By: #### C MP, BNP, CMADM #### [facility] [address] [address] [address] Loyd Parks Anion gap [Moles/Vol] 12.2 mmol/L Normal [facility] Comment on above: Performed By: #### C MP, BNP, CMADM #### [facility] [address] [place] [address] Dr. Loyd Parks AST [Catalytic activity/Vol] 15 U/L Normal 15-37 [facility] Comment on above: Performed By: #### C MP, BNP, CMADM #### [facility] [address] [place] [address] Dr. Loyd Parks Bilirubin [Mass/Vol] 0.4 mg/dL Normal 0.2-1.0 [facility] Comment on above: Performed By: #### C MP, BNP, CMADM #### [facility] [address] [place] [address] Dr. Loyd Parks Calcium [Mass/Vol] 8.7 mg/dL Normal 8.5-10.1 [facility] Comment on above: Performed By: #### C MP, BNP, CMADM #### [facility] [address] [place] [address] Dr. Loyd Parks Chloride [Moles/Vol] 105 mmol/L Normal 98-107 [facility] Comment on above: Performed By: #### C MP, BNP, CMADM #### [facility] [address] [place] [address] Dr. Loyd Parks CO2 [Moles/Vol] 28.0 mmol/L Normal 21.0-32.[address] [facility] Comment on above: Performed By: #### C MP, BNP, CMADM #### [facility] [address] [address] [address] Loyd Parks Creatinine [Mass/Vol] 2.25 mg/dL Critically high 0.70-1.30 [facility] Comment on above: Performed By: #### C MP, BNP, CMADM #### [facility] [address] [address] [address] Loyd Parks EGFR-AF [place] 34 mL/min/1.73m2 Critically low >=60 [facility] Comment on above: Performed By: #### C MP, BNP, CMADM #### [facility] [address] [place] [address] Dr. Loyd Parks EGFR-NON AF CITIZEN [place] 28 mL/min/1.73m2 Critically low >=60 [facility] Comment on above: Performed By: #### C MP, BNP, CMADM #### [facility] [address] [place] [address] Dr. Loyd Parks Globulin (S) [Mass/Vol] 3.8 g/dL Normal [facility] Comment on above: Performed By: #### C MP, BNP, CMADM #### [facility] [address] [place] [address] Dr. Loyd Parks Glucose [Mass/Vol] 88 mg/dL Normal 74-106 [facility] Comment on above: Performed By: #### C MP, BNP, CMADM #### [facility] [address] [place] [address] Dr. Loyd Parks Potassium [Moles/Vol] 4.2 mmol/L Normal 3.5-5.1 [facility] Comment on above: Performed By: #### C MP, BNP, CMADM #### [facility] [address] [place] [address] Dr. Loyd Parks Protein [Mass/Vol] 7.1 g/dL Normal 6.4-8.[address] [facility] Comment on above: Performed By: #### C MP, BNP, CMADM #### [facility] [address] [place] [address] Dr. Loyd Parks Sodium [Moles/Vol] 141 mmol/L Normal 136-[address] [facility] Comment on above: Performed By: #### C MP, BNP, CMADM #### [facility] [address] [place] [address] Dr. Loyd Parks Urea nitrogen [Mass/Vol] 36.0 mg/dL Critically high 7.0-18.0 [facility] Comment on above: Performed By: #### C MP, BNP, CMADM #### [facility] [address] [place] [address] Dr. Loyd Parks Urea nitrogen/Creatinin e [Mass ratio] 16.0 mg/mg Normal [facility] Comment on above: Performed By: #### C MP, BNP, CMADM #### [facility] [address] [place] [address] Dr. Loyd Parks PROTIMEon 07-27-2022 INR Coag (PPP) [Relative time] 0.95 {INR} Normal [facility] Comment on above: Performed By: #### P T, PTT #### [facility] [address] [place] [address] Dr. Loyd Parks INR GUIDELINES SEE BELOW Normal [facility] Comment on above: Result Comment: MARIE RED INR: 2.0 - 3.0 CONDITIONS NOT LISTED BELOW 2.5 - 3.5 FOR PROSTHETIC HEART VALVE REPLACEMENT 2.5 - 3.5 RECURRENT THROMBOSIS Performed By: #### P T, PTT #### [facility] [address] [place] [address] Dr. Loyd Parks PT Coag (PPP) [Time] 10.1 s Normal 9.0-11.6 [facility] Comment on above: Performed By: #### P T, PTT #### [facility] [address] [place] [address] Dr. Loyd Parks PTTon 07-27-2022 aPTT Coag (Bld) [Time] 27.3 s Normal 22.3-36.2 [facility] Comment on above: Performed By: #### P T, PTT #### [facility] [address] [place] [address] Dr. Loyd Parks SYMPTOMATIC COVID-19 ANTIGEN on 07-27-2022 EUA Statement SEE BELOW Normal [facility] Comment on above: Result Comment: [...] sooner. Performed By: #### C VDAGS #### [facility] [address] [place] [address] Dr. Loyd Parks SARS-CoV-2 (COVID-19) RNA SAUNDRA+probe Ql (Unsp spec) Negative Normal NEGATIVE [facility] Comment on above: Performed By: #### C OGAGS #### [facility] [address] [place] [address] Dr. Loyd Parks XR CHEST 2 Von [...] ELIUD KAUR Date: 2022-07-26 22:19 Normal [facility] POINT OF CARE GLUCOSEon 03-25 Glucose [Mass/Vol] 102 mg/dL Normal 74-[address] [facility] Comment on above: Performed By: #### C MP, BNP, CMADM #### [facility] [address] [place] [address] Dr. Loyd Parks ER URINE PROFILEon 2 Bilirubin Ql (U) Negative Normal NEGATIVE The [facility] Comment on above: Performed By: #### E RUR #### [facility] [address] [place] [address] Dr. oLyd Parks Clarity (U) CLEAR Normal CLEAR [facility] Comment on above: Performed By: #### E RUR #### [facility] [address] [place] [address] Dr. Loyd Parks Color (U) LT. YELLOW Normal YELLOW [facility] Comment on above: Performed By: #### E RUR #### [facility] [address] [place] [address] Dr. Loyd CONWAY A micrscopic examination will be performed if indicated. Normal [facility] Comment on above: Performed By: #### E RUR #### [facility] [address] [place] [address] Dr. Loyd Parks Glucose Ql (U) 100 mg/dl Abnormal NEGATIVE [facility] Comment on above: Performed By: #### E RUR #### [facility] [address] [place] [address] Dr. Loyd Parks Hemoglobin Ql (U) Negative Normal NEGATIVE [facility] Comment on above: Performed By: #### E RUR #### [facility] [address] [place] [address] Dr. Loyd Parks Ketones Ql (U) Negative Normal NEGATIVE [facility] Comment on above: Performed By: #### E RUR #### [facility] [address] [place] [address] Dr. Loyd Parks LEUKOCYTES Negative Normal NEGATIVE [facility] Comment on above: Performed By: #### E RUR #### [facility] [address] [place] [address] Dr. Loyd Parks Nitrite Ql (U) Negative Normal NEGATIVE [facility] Comment on above: Performed By: #### E RUR #### [facility] [address] [place] [address] Dr. Loyd Parks pH (U) 5.5 [pH] Normal 5-9 [facility] Comment on above: Performed By: #### E RUR #### [facility] [address] [place] [address] Dr. Loyd Parks SPEC GRAVITY 1.015 Normal 1.005-<=1.025 [facility] Comment on above: Performed By: #### E RUR #### [facility] [address] [place] [address] Dr. Loyd Parks UA PROTEIN Negative Normal NEGATIVE/ TRACE [facility] Comment on above: Performed By: #### E RUR #### [facility] [address] [place] [address] Dr. Loyd Parks UR MICRO IND NOT INDICATED Normal [facility] Comment on above: Performed By: #### E RUR #### [facility] [address] [place] [address] Dr. Loyd Parks Urobilinogen Qn (U) 0.2 {Malcolm'U}/dL Normal 0.2 - 1.0 [facility] Comment on above: Performed By: #### E RUR #### [facility] [address] [place] [address] Dr. Loyd Parks GROUP A STREP CULTUREon 02-21 S. pyogenes Ag Ql (Unsp spec) Culture Observations: NEGATIVE FOR GROUP A STREPTOCOCCUS. Normal [facility] Comment on above: Performed By: #### S IGNACIA GRASTCX #### [facility] [address] [place] [address] Dr. Loyd Parks STREPT SCREENon 03-03-2022 STREP SCREEN A Negative Normal NEGATIVE [facility] Comment on above: Performed By: #### S IGNACIA GRASTCX #### [facility] [address] [place] [address] Dr. Loyd Parks Covid-19 PCR (CVDTB)on SARS-CoV-2 (COVID-19) RNA SAUNDRA+probe Ql (Unsp spec) Not detected Normal NOT DETECTED [facility] Comment on above: Result Comment: This test is not yet approved or cleared by the [place] FDA. When there are no FDA-approved or cleared tests available, and other criteria are met, FDA can make tests available under an emergency access mechanism called an Emergency Use Authorization (EUA). The EUA for this test is supported by the [place] of Health and Human Service's (HHS's) declaration [...] By: #### C MP, BNP, CMADM #### [facility] [address] [place] [address] Dr. Loyd Parks POINT OF CARE GLUCOSEon 12-22 Glucose [Mass/Vol] 133 mg/dL Critically high 74-106 [facility] Comment on above: Performed By: #### E RUR #### [facility] [address] [place] [address] Dr. Loyd Parks POINT OF CARE GLUCOSEon Glucose [Mass/Vol] 75 mg/dL Normal 74-106 [facility] Comment on above: Performed By: #### E RUR #### [facility] [address] [place] [address] ABD/PELVIS WO CONon [...] SAURABH SINGH Date: 2021-09-03 08:35 Normal [facility] ER URINE PROFILEon 2 Bilirubin Ql (U) Negative Normal NEGATIVE [facility] Comment on above: Performed By: #### E RUR #### [facility] [address] [place] [address] Dr. Loyd Parks Clarity (U) CLEAR Normal CLEAR [facility] Comment on above: Performed By: #### E RUR #### [facility] [address] [place] [address] Dr. Loyd Parks Color (U) LT. YELLOW Normal YELLOW [facility] Comment on above: Performed By: #### E RUR #### [facility] [address] [place] [address] Dr. Loyd CONWAY A micrscopic examination will be performed if indicated. Normal [facility] Comment on above: Performed By: #### E RUR #### [facility] [address] [place] [address] Dr. Loyd Parks Glucose Ql (U) >1000 Abnormal NEGATIVE [facility] Comment on above: Performed By: #### E RUR #### [facility] [address] [place] [address] Dr. Loyd Parks Hemoglobin Ql (U) Negative Normal NEGATIVE [facility] Comment on above: Performed By: #### E RUR #### [facility] [address] [place] [address] Dr. Loyd Parks Ketones Ql (U) Negative Normal NEGATIVE [facility] Comment on above: Performed By: #### E RUR #### [facility] [address] [place] [address] Dr. Loyd Parks LEUKOCYTES Negative Normal NEGATIVE [facility] Comment on above: Performed By: #### E RUR #### [facility] [address] [place] [address] Dr. Loyd Parks Nitrite Ql (U) Negative Normal NEGATIVE [facility] Comment on above: Performed By: #### E RUR #### [facility] [address] [place] [address] Dr. Loyd Parks pH (U) 6.0 [pH] Normal 5-9 [facility] Comment on above: Performed By: #### E RUR #### [facility] [address] [place] [address] Dr. Loyd Parks SPEC GRAVITY 1.010 Normal 1.005-<=1.025 [facility] Comment on above: Performed By: #### E RUR #### [facility] [address] [address] [address] Loyd Parks UA PROTEIN Negative Normal NEGATIVE/ TRACE [facility] Comment on above: Performed By: #### E RUR #### [facility] [address] [place] [address] Dr. Loyd Parks UR MICRO IND NOT INDICATED Normal [facility] Comment on above: Performed By: #### E RUR #### [facility] [address] [address] [address] Loyd Parks Urobilinogen Qn (U) 0.2 {Malcolm'U}/dL Normal 0.2 - 1.0 [facility] Comment on above: Performed By: #### E RUR #### [facility] [address] [place] [address] Dr. Loyd Parks ALCOHOLon 07-31-2020 Ethanol [Mass/Vol] mg/dL Normal [facility] Comment on above: Result Comment: FOR MEDICAL USE ONLY. . REF VALUES <10 Performed By: #### A LC ####[facility] [place] [address] CBC AND DIFFERENTIALon 07-31 % AUTOMATED IMMATURE GRAN 0.4 % Normal 0.0 - 0.9 [facility] Comment on above: Result Comment: Rylie ture Granulocyte Count (IG) includes promyelocytes, myelocytes and metamyelocytes but does not include bands. Percent differential counts (%) should be interpreted in the context of the absolute cell counts (cells/L). Performed By: #### C BCDF #### [facility] [address] [place] [address] Basophils (Bld) [#/Vol] 0.05 10*3/uL Normal 0.00 - 0.10 [facility] Comment on above: Performed By: #### C BCDF #### [facility] [address] [place] [address] Basophils/100 WBC (Bld) 0.6 % Normal 0.0 - 2.0 [facility] Comment on above: Performed By: #### C BCDF #### [facility] [address] [place] [address] Eosinophils (Bld) [#/Vol] 0.21 10*3/uL Normal 0.00 - 0.40 [facility] Comment on above: Performed By: #### C BCDF #### [facility] [address] [place] [address] Eosinophils/100 WBC (Bld) 2.4 % Normal 0.0 - 6.0 [facility] Comment on above: Performed By: #### C BCDF #### [facility] [address] [place] [address] Erythrocyte distribution width (RBC) [Ratio] 13.2 % Normal 11.5 - 14.5 [facility] Comment on above: Performed By: #### C BCDF #### [facility] [address] [facility] [place] [address] Hematocrit (Bld) [Volume fraction] 50.0 % Normal 41.0 - 52.0 [facility] Comment on above: Performed By: #### C BCDF #### [facility] [address] [facility] [place] [address] Hemoglobin (Bld) [Mass/Vol] 17.3 g/dL Normal 13.5 - 17.5 [facility] Comment on above: Performed By: #### C BCDF #### [facility] [address] [place] [address] Lymphocytes (Bld) [#/Vol] 1.59 10*3/uL Normal 0.80 - 3.00 [facility] Comment on above: Performed By: #### C BCDF #### [facility] [address] [place] [address] Lymphocytes/100 WBC (Bld) 17.9 % Normal 13.0 - 44.0 [facility] Comment on above: Performed By: #### C BCDF #### [facility] [address] [facility] [place] [address] MCHC (RBC) [Mass/Vol] 34.6 g/dL Normal 32.0 - 36.0 [facility] Comment on above: Performed By: #### C BCDF #### [facility] [address] [place] [address] MCV (RBC) [Entitic vol] 89 fL Normal 80 - 100 [facility] Comment on above: Performed By: #### C BCDF #### [facility] [address] [place] [address] Monocytes (Bld) [#/Vol] 0.82 10*3/uL High 0.05 - 0.80 [facility] Comment on above: Performed By: #### C BCDF #### [facility] [address] [place] [address] Monocytes/100 WBC (Bld) 9.2 % Normal 2.0 - 10.0 [facility] Comment on above: Performed By: #### C BCDF #### [facility] [address] [facility] [place] [address] Neutrophils (Bld) [#/Vol] 6.18 10*3/uL High 1.60 - 5.50 [facility] Comment on above: Performed By: #### C BCDF #### [facility] [id number] [place] [address] [place] [address] Neutrophils/100 WBC (Bld) 69.5 % Normal 40.0 - 80.0 [facility] Comment on above: Performed By: #### C BCDF #### [facility] [id number] [place] [address] [place] [address] Platelets (Bld) [#/Vol] 215 10*3/uL Normal 150 - 450 [facility] Comment on above: Performed By: #### C BCDF #### [facility] [address] [facility] [place] [address] RBC 5.59 x10E12/L Normal 4.50 - 5.90 [facility] Comment on above: Performed By: #### C BCDF #### [facility] [address] [facility] [place] [address] WBC (Bld) [#/Vol] 8.9 10*3/uL Normal 4.4 - 11.3 [facility] Comment on above: Performed By: #### C BCDF #### [facility] [address] [place] [address] CHEST 1 VIEWon 07-31-2020 CHEST 1 VIEW STUDY: Chest Radiograph; 07/30/2020 10:53 PM INDICATION: Shortness of breath. COMPARISON: None available. ACCESSION NUMBER(S): [id number] ORDERING CLINICIAN: ZAID CUELLAR DO TECHNIQUE: Frontal chest was obtained at 2355 hours. FINDINGS: CARDIOMEDIASTINAL SILHOUETTE: Cardiomediastinal silhouette is normal in size and configuration. LUNGS: Lungs are clear. ABDOMEN: No remarkable upper abdominal findings. BONES: No acute osseous changes. IMPRESSION: No acute pulmonary abnormality. Signed by Rodrick Anna MD Electronically signed by: RODRICK ANNA MD Normal [facility] COMPREHENSIVE PANELon 2020 Albumin [Mass/Vol] 3.7 g/dL Normal 3.4 - 5.0 [facility] Comment on above: Performed By: #### C MP ####[facility] [place] [address] ALP [Catalytic activity/Vol] 80 U/L Normal 33 - 136 [facility] Comment on above: Performed By: #### C MP ####[facility] [place] [address] ALT [Catalytic activity/Vol] 12 U/L Normal 10 - 52 [facility] Comment on above: Result Comment: Jade ents treated with Sulfasalazine may generate falsely decreased results for ALT. Performed By: #### C MP ####[facility] [place] [address] Anion gap [Moles/Vol] 13 mmol/L Normal 10 - 20 [facility] Comment on above: Performed By: #### C MP ####[facility] [place] [address] AST [Catalytic activity/Vol] 12 U/L Normal 9 - 39 [facility] Comment on above: Performed By: #### C MP ####[facility] [place] [address] Bilirubin [Mass/Vol] 0.7 mg/dL Normal 0.0 - 1.2 [facility] Comment on above: Performed By: #### C MP ####[facility] [place] [address] Calcium [Mass/Vol] 9.2 mg/dL Normal 8.6 - 10.3 [facility] Comment on above: Performed By: #### C MP ####[facility] [place] [address] Chloride [Moles/Vol] 101 mmol/L Normal 98 - 107 [facility] Comment on above: Performed By: #### C MP ####[facility] [place] [address] Creatinine [Mass/Vol] 1.36 mg/dL High 0.50 - 1.30 [facility] Comment on above: Performed By: #### C MP ####[facility] [place] [address] GFR- AM. 61 mL/min/1.73m2 Normal >60 [facility] Comment on above: Result Comment: CALC ULATIONS OF ESTIMATED GFR ARE PERFORMED USING THE MDRD STUDY EQUATION FOR THE IDMS-TRACEABLE CREATININE METHODS. CLIN CHEM 2007;53:766-72 Performed By: #### C MP ####[facility] [facility] [place] [address] GFR-NON AM. 50 mL/min/1.73m2 Abnormal >60 [facility] Comment on above: Performed By: #### C MP ####[facility] [place] [address] Glucose [Mass/Vol] 390 mg/dL High 74 - 99 [facility] Comment on above: Performed By: #### C MP ####[facility] [place] [address] HCO3 (Bld) [Moles/Vol] 27 mmol/L Normal 21 - 32 [facility] Comment on above: Performed By: #### C MP ####[facility] [place] [address] Potassium [Moles/Vol] 4.1 mmol/L Normal 3.5 - 5.3 [facility] Comment on above: Performed By: #### C MP ####[facility] [place] [address] Protein [Mass/Vol] 6.8 g/dL Normal 6.4 - 8.2 [facility] Comment on above: Performed By: #### C MP ####[facility] [facility] [address] Sodium [Moles/Vol] 137 mmol/L Normal 136 - 145 [facility] Comment on above: Performed By: #### C MP ####[facility] [place] [address] Urea nitrogen [Mass/Vol] 27 mg/dL High 6 - 23 [facility] Comment on above: Performed By: #### C MP ####[facility] [place] [address] CT HEAD WO CONTRASTon 2020 CT HEAD WO CONTRAST STUDY: CT Head without IV Contrast; 07/30/2020, 11:52 PM. INDICATION: Confusion, disorientation. COMPARISON: None Available. ACCESSION NUMBER(S): [id number] ORDERING CLINICIAN: ZAID CUELLAR DO TECHNIQUE: Noncontrast [...] Electronically signed by: RODRICK ANNA MD Normal [facility] MAGNESIUMon 07-31-2020 Magnesium [Mass/Vol] 2.04 mg/dL Normal 1.60 - 2.40 [facility] Comment on above: Performed By: #### M G #### [facility] [address] [place] [address] PT/INRon 07-31-2020 PT Coag (PPP) [Time] 12.0 s Normal 10.1 - 13.3 [facility] Comment on above: Performed By: #### P TINR #### [facility] [address] [place] [address] PT, INR 1.0 Normal 0.9 - 1.1 [facility] Comment on above: Performed By: #### P TINR #### [facility] [address] [place] [address] Provider Note - ED v2on 07-22 Provider Note - ED v2 Provider Note - ED v2: Chart Review: ED NOTES ED NOTES: History: This is an 80-year-old male presenting from the [facility] by [facility] for chief complaint of a medical evaluation. Patient left his home in [place] 3 days ago because he got into an argument with his and he has not been back since. He was finally located at a [facility] down the street when family called. [...] From Triage - ED 30-Jul-2020 23:17 Normal [facility] Risk Screen - Adult Emergenc yon 07-31-2020 [...] instruction; written material Cultural Considerationsnone Developmental Considerationsnone Mandaen Considerationsnone Learning Assessment (Other Learner): Learning Assessment (Other Learner): Other learner availableno Pressure Injury/TB/Substance: Pressure Injury: Do you have a coughno Substance Use Current or Former Historynever: Cigarette/Tobacco, e-Cigarette/Vaping, Alcohol, Street Drugs Admission Risk Screen: Significant IndicatorsComplete CAGE: CAGE: Is this an injured patient at a Trauma Center ([facility]/[place]): no Electronic Signatures: Elizabeth Ivan) (Signed 30-Jul-2020 23:24) Authored: Preferred Language, Advanced Directives, Family Violence Adult, Learning Assessment (Patient), Learning Assessment (Other Learner), Pressure Injury/TB/Substance, Pressure Injury, CAGE Last Updated: 30-Jul-2020 23:24 by Elizabeth Ivan (RN) Normal [facility] TROPONIN Ion 07-31-2020 Troponin I.cardiac [Mass/Vol] ng/mL Normal 0.00 - 0.03 [facility] Comment on above: Result Comment: LESS THAN [...] is performed using different testing methodology at [facility] than at other [facility]. Direct result comparisons should only be made within the same method. Performed By: #### T ROP2 #### [facility] [address] [place] [address] Triage - EDon 07-31-2020 Triage - ED [...] Arrival: stretcher Mode of Arrival: ambulance Agency: [facility] Agency Name: Monica Accompanied By: ski patrol officer Language: Spoken Language Preferred: [place]ian Reading Language Preferred: Albanian CHIEF COMPLAINT NAT MOORE is a Male patient with a chief complaint of altered mental status. Triage Date/Time: 30-Jul-2020 22:50 LAILA: 3 Pain Rating (0-10): 0 = None Vital Signs: Temperature: 96.8F ( 36.0C) taken temporal Blood Pressure: 166/103 Mean: Heart Rate: 94 Respiratory Rate: 18 Pulse Oximetry: 97% on room air, no respiratory support. Weight: 230.3 pounds. Calculated 104.5 kg. (stated) [place] Coma Scale: Best Eye Response: (E4) spontaneous Best Motor Response: (M6) obeys commands Best Verbal Response: (V5) oriented [place] Score: 15 Allergies: yes Patient has homicidal [...] 30-Jul-2020 23:23 by Elizabeth Ivan (MIGUEL) Normal [facility] UA MICROSCOPICon 07-31-2020 RBC 1 /HPF Normal 0-5 [facility] Comment on above: Performed By: #### U AMIC #### [facility] [address] [place] [address] SQUAMOUS EPITH. CELLS <1 Normal [facility] Comment on above: Performed By: #### U AMIC #### [facility] [address] [place] [address] WBC 22 /HPF Abnormal 0-5 [facility] Comment on above: Performed By: #### U AMIC #### [facility] [address] [place] [address] URINALYSISon 07-31-2020 Appearance (U) CLEAR Normal CLEAR [facility] Comment on above: Performed By: #### U A #### [facility] [address] [place] [address] Bilirubin Ql (U) Negative Normal NEGATIVE [facility] Comment on above: Performed By: #### U A #### [facility] [address] [place] [address] Color (U) STRAW Normal STRAW,YELLOW [facility] Comment on above: Performed By: #### U A #### [facility] [address] [place] [address] Glucose Ql (U) >=500(3+) Abnormal NEGATIVE [facility] Comment on above: Performed By: #### U A #### [facility] [id number] [place] [address], [place] [address] Hemoglobin Ql (U) SMALL(1+) Abnormal NEGATIVE [facility] Comment on above: Performed By: #### U A #### [facility] [address] [place] [address] Ketones Ql (U) Negative Normal NEGATIVE [facility] Comment on above: Performed By: #### U A #### [facility] [address] [place] [address] Leukocyte esterase Test strip Ql (U) TRACE Abnormal NEGATIVE [facility] Comment on above: Performed By: #### U A #### [facility] [address] [place] [address] Nitrite Ql (U) Negative Normal NEGATIVE [facility] Comment on above: Performed By: #### U A #### [facility] [address] [place] [address] pH (U) 6.0 [pH] Normal 5.0 - 8.0 [facility] Comment on above: Performed By: #### U A #### [facility] [address] [place] [address] Protein Ql (U) 100(2+) Abnormal NEGATIVE [facility] Comment on above: Performed By: #### U A #### [facility] [address] [place] [address] Specific gravity (U) [Rel density] 1.025 Normal 1.005 - 1.035 [facility] Comment on above: Performed By: #### U A #### [facility] [address] [address] Urobilinogen (U) [Mass/Vol] mg/dL Normal 0.0 - 1.9 [facility] Comment on above: Performed By: #### U A #### [facility] [address] [place] [address] Vital Signs Date Time Vital Sign Value Performing Clinician Facility 01-08-2024 14: Body height 172.7 cm Darcy Sandoval RATE EXAMINER Work Phone: [facility] 01-08-2024 14:17040 Body mass index (BMI) [Ratio] 37.56 kg/m2 Darcy Sandoval RATE EXAMINER Work Phone: [facility] 01-08-2024 14:17040 Body weight 112.04 kg Darcy Sandoval RATE EXAMINER Work Phone: [facility] 01-08-2024 14:17-040 Diastolic blood pressure 84 mm[Hg] Darcy Sandoval RATE EXAMINER Work Phone: [facility] 01-08-2024 14:17-040 Heart rate 92 /min Darcy Sandoval RATE EXAMINER Work Phone: [facility] 01-08-2024 14:17-0400 SaO2% (BldA) [Mass fraction] 98 % Darcy Sandoval RATE EXAMINER Work Phone: [facility] 01-08-2024 14:17040 Systolic blood pressure 124 mm[Hg] Darcy Sandoval RATE EXAMINER Work Phone: [facility] 12-25-2023 14:040 Body height 172.7 cm Darcy Sandoval RATE EXAMINER Work Phone: [facility] 12-25-2023 14:-0400 Body mass index (BMI) [Ratio] 38.32 kg/m2 Darcy Sandoval RATE EXAMINER Work Phone: [facility] 12-25-2023 14:28-0400 Body weight 114.31 kg Darcy Sandoval RATE EXAMINER Work Phone: [facility] 12-25-2023 14:28-0400 Diastolic blood pressure 68 mm[Hg] Darcy Campavely RATE EXAMINER Work Phone: [facility] 12-25-2023 14:28-0400 Heart rate 88 /min Darcy [place] RATE EXAMINER Work Phone: [facility] 12-25-2023 14:28-0400 SaO2% (BldA) [Mass fraction] 97 % Darcy Lori RATE EXAMINER Work Phone: [facility] 12-25-2023 14:28-0400 Systolic blood pressure 128 mm[Hg] Darcy Sandoval RATE EXAMINER Work Phone: [facility] 09-16-2022 14:48-0400 Blood Pressure Location Umer VALENCIA [facility] 09-16-2022 14:48-0400 Diastolic blood pressure 74 mm[Hg] Umer VALENCIA [facility] 09-16-2022 14:48-0400 Heart rate 70 /min Umer VALENCIA [facility] 09-16-2022 14:48-0400 Respiratory rate 16 /min Umer VALENCIA [facility] 09-16-2022 14:48-0400 Systolic blood pressure 130 mm[Hg] Umer VALENCIA [facility] 04-26-2022 11:04-0500 Blood Pressure Location Umer VALENCIA [facility] 04-26-2022 11:04-0500 Diastolic blood pressure 78 mm[Hg] Umer VALENCIA [facility] 04-26-2022 11:04-0500 Heart rate 62 /min Umer VALENCIA [facility] 04-26-2022 11:04-0500 Respiratory rate 16 /min Umer VALENCIA [facility] 04-26-2022 11:04-0500 Systolic blood pressure 134 mm[Hg] Umer VALENCIA [facility] 12-03-2021 13:08-0400 Blood Pressure Location Umer VALENCIA [facility] 12-03-2021 13:08-0400 Diastolic blood pressure 70 mm[Hg] Umer VALENCIA [facility] 12-03-2021 13:08-0400 Heart rate 65 /min Umer VALENCIA [facility] 12-03-2021 13:08-0400 Respiratory rate 16 /min Umer VALENCIA [facility] 12-03-2021 13:08-0400 Systolic blood pressure 109 mm[Hg] Umer VALENCIA [facility] 09-03-2021 13:39-0400 Blood Pressure Location Umer VALENCIA [facility] 09-03-2021 13:39-0400 Diastolic blood pressure 67 mm[Hg] Umer VALENCIA [facility] 09-03-2021 13:39-0400 Heart rate 68 /min Umer VALENCIA [facility] 09-03-2021 13:39-0400 Respiratory rate 16 /min Umer VALENCIA [facility] 09-03-2021 13:39-0400 Systolic blood pressure 102 mm[Hg] Umer VALENCIA [facility] Encounters Encounter Date Encounter Type Care Provider Facility Start: 02-10-2024 ambulatory Marianela X Orzech Facilit y:[facility] Start: 01-08-2024 End: 01-08-2024 ambulatory DARCY SANDOVAL Not Available Start: 01-08-2024 End: 01-08-2024 Bamboo flowsheet Darcy Sandoval RATE EXAMINER Work Phone: [facility] Start: 01-08-2024 End: 01-08-2024 Bamboo flowsheet Darcy Sandoval RATE EXAMINER Work Phone: [facility] Start: 01-08-2024 End: 01-08-2024 Office outpatient visit 25 minutes Darcy Sandoval RATE EXAMINER Work Phone: [facility] Comment on above: Edema, unspecified t ype (Primary Dx); Altered mental status, unspecified altered mental status type Start: 12-25-2023 End: 12-25-2023 Office outpatient visit 25 minutes Darcy Sandoval RATE EXAMINER Work Phone: [facility] Comment on above: Localized edema (Leslee jazmine Dx); Acute cough Start: 12-25-2023 End: 12-25-2023 ambulatory DARCY SANDOVAL Not Available Start: 12-25-2023 End: 12-25-2023 Bamboo flowsheet Darcy Sandoval RATE EXAMINER Work Phone: [facility] Start: 12-25-2023 End: 12-25-2023 Bamboo flowsheet Darcy Sandoval RATE EXAMINER Work Phone: [facility] Start: 12-05-2023 End: 12-05-2023 ambulatory [facility]ARCY [facility]OVAL [facility] Start: 11-30-2023 End: 11-30-2023 ambulatory RENE ANTHONY [facility] Start: 11-28-2023 End: 11-28-2023 [facility]: 11-21-2023 Evaluation and manag ement of inpatient [facility] Start: 11-18-2023 Evaluation and manag ement of inpatient [facility] Start: 11-17-2023 Evaluation and manag ement of inpatient [facility] Start: 11-15-2023 Evaluation and manag ement of inpatient [facility] Start: 11-15-2023 Evaluation and manag ement of inpatient [facility] Start: 11-15-2023 Evaluation and manag ement of inpatient [facility]EL [facility] Start: 11-15-2023 Evaluation and manag ement of inpatient [facility] Start: 11-15-2023 End: 11-15-2023 ambulatory UNKNOWN PROVIDER Facility:[facility] Start: 11-15-2023 End: 11-22-2023 Evaluation and management of inpatient [facility] Start: 11-13-2023 End: 11-13-2023 ambulatory DARCY SANDOAVL Not Available Start: 11-11-2023 End: 11-11-2023 ambulatory Marianela Ingram Facility:[facility] Start: 11-11-2023 End: 11-11-2023 Patient encounter procedure Marianela Ingram [facility] Start: 10-23-2023 End: 10-23-2023 ambulatory DARCY SANDOVAL Not Available Start: 10-14-2023 End: 10-14-2023 ambulatory Marianela X Orzech Facility:[facility] Start: 10-14-2023 End: 10-14-2023 Patient encounter procedure Marianela Jennifer Dowellzech [facility] Start: 10-09-2023 End: 10-09-2023 ambulatory TOMMY GABRIEL Not Available Start: 08-01-2023 End: 08-01-2023 ambulatory JUAN PABLO ALANIZ Not Available Start: 06-19-2023 End: 06-19-2023 ambulatory JUAN PABLO ALANIZ Not Available Start: 05-13-2023 End: 05-13-2023 ambulatory CAIT DUNHAM Facility:[facility] Start: 05-13-2023 End: 05-13-2023 Patient encounter procedure CAIT DUNHAM [facility] Start: 04-23-2023 End: 04-23-2023 ambulatory JUAN PABLO ALANIZ Not Available Start: 03-26-2023 End: 03-26-2023 ambulatory JUAN PABLO ALANIZ Not Available Start: 02-27-2023 End: 02-27-2023 ambulatory DARCY SANDOVAL Not Available Start: 12-18-2022 End: 12-18-2022 ambulatory CAIT DUNHAM Facility:[facility] Start: 09-16-2022 End: 09-16-2022 Patient encounter procedure Umer VALENCIA [facility] Start: 07-26-2022 End: 07-27-[address] JUAN PABLO ALANIZ Facility:[facility] Start: 06-26-2022 End: 06-27-[address] JUAN PABLO ALANIZ Facility:[facility] Start: 05-23-2022 End: 05-24-[address] JUAN PABLO ALANIZ Facility:[facility] Start: 04-26-2022 End: 04-26-2022 Patient encounter procedure Umer VALENCIA [facility] Start: 04-22-2022 End: 04-23-[address] JUAN PABLO ALANIZ Facility:[facility] Start: 04-16-2022 End: 04-16-[address] JUAN PABLO ALANIZ Facility:[facility] Start: 04-08-2022 End: 04-08-2022 Patient encounter procedure Umer VALENCIA [facility] Start: 04-04-2022 ambulatory SHELLIE ROJAS . Facility:[facility] Start: 03-08-2022 End: 03-08-[address] JUAN PABLO ALANIZ Facility:[facility] Start: 03-04-2022 Encounter for preprocedural cardiovascular examination DR VINH HOLCOMB . [facility] Start: 03-04-2022 Encounter for preprocedural laboratory examination DR VINH HOLCOMB . [facility] Start: 03-03-2022 End: 03-03-[address] JUAN PABLO ALANIZ Facility:[facility] Start: 03-02-2022 Encounter for preprocedural cardiovascular examination DR VINH HOLCOMB . [facility] Start: 02-26-[address] VINH [...] encounter procedure Umer VALENCIA [facility] Start: 11-29-2021 End: 11-30-2021 ambulatory MANDIE Goodman [facility] Facility:[facility] Start: 11-27-2021 End: 11-27-[address] VINH HOLCOMB . Facility:[facility] Start: 10-02-2021 End: 10-03-[address] VINH HOLCOMB . Facility:[facility] Start: 09-21-2021 End: 09-21-[address] SUJIT GR . Facility:[facility] Start: 09-19-2021 End: 09-20-2021 ambulatory MANDIE Goodman [facility] Facility:[facility] Start: 09-15-2021 End: 09-16-[address] SPARKLE NELSON Facility:[facility] Start: 09-03-2021 End: 09-03-2021 Patient encounter procedure Umer VALENCIA [facility] Start: 09-03-2021 End: 09-03-[address] [...] EST Procedure Visit [facility] [address] [facility] [address] [place] [address] Tommy Gabriel DPM [address] [facility] [address] [place] [address] [facility] Start: 01-08-2024 End: 01-07-2025 Basic metabolic 1998 panel - Serum or Plasma Basic metabolic panel Lab Routine Edema, unspecified type Expected: 01/08/2024 (Approximate), Expires: 01/07/2025 [facility] Work Phone: Comment [...] Visit [facility] [address] [facility] [address] [place] [address] Darcy Sandoval NP [address] [place] [address] [facility] Start: 12-25-2023 End: 12-25-2023 Patient encounter procedure 12/25/2023 2:30 PM EDT Office Visit [facility] [address] [place] [address] Darcy Sandoval NP [address] [place] [address] Arrived [facility] Comment on above: Arrived Start: 11-23-2023 Influenza vaccination Influenza Vacc ine (#1) [facility] Start: 08-22-2022 ambulatory Ambulatory Facility:[facility] Start: 08-06-2019 Pneumococcal Vaccine : 65+ Years (2 of 2 - PCV) Pneumococcal Vaccine: 65+ Years (2 of 2 - PCV) [facility] Start: 1948 Glaucoma screening Diabetes: R etinopathy Screening [facility] Immunizations Immunization Date Immunization Notes Care Provider Fa cility 01-13-2023 influenza virus vacc ine, unspecified formulation Marianela Ingram [facility] 01-13-2023 Influenza, High-dose Seasonal, Quadrivalent, Preservative Free Darcy Lori RATE EXAMINER Work Phone: [facility] 02-22-2022 influenza virus vacc ine, unspecified formulation Umer VALENCIA [facility] 02-22-2022 influenza, high dose seasonal, preservative-free Darcy [place] RATE EXAMINER Work Phone: [facility] 12-21-2020 SARS-CoV-2 (COVID-19 ) mRNA BNT-162b2 vax Umer VALENCIA [facility] 11-30-2020 SARS-CoV-2 (COVID-19 ) mRNA BNT-162b2 vax Umer VALENCIA [facility] 01-24-2020 influenza virus vacc ine, unspecified formulation Umer VALENCIA [facility] 01-24-2020 influenza, high dose seasonal, preservative-free Darcy [place] RATE EXAMINER Work Phone: [facility] 03-04-2019 influenza virus vacc ine, unspecified formulation Umer VALENCIA [facility] 03-04-2019 influenza, high dose seasonal, preservative-free Darcy Lori RATE EXAMINER Work Phone: [facility] 08-05-2018 pneumococcal polysaccharide vaccine, 23 valent Umer VALENCIA [facility] 12-18-2016 influenza virus vacc ine, unspecified formulation Umer VALENCIA [facility] 12-18-2016 influenza, high dose seasonal, preservative-free Darcy [place] RATE EXAMINER Work Phone: [facility] 12-06-2015 influenza virus vacc ine, unspecified formulation Umer VALENCIA [facility] 12-06-2015 influenza, high dose seasonal, preservative-free Darcy [place] RATE EXAMINER Work Phone: [facility] 12-21-2014 influenza virus vacc ine, unspecified formulation Umer VALENCIA [facility] 12-21-2014 influenza, high dose seasonal, preservative-free Darcy [place] RATE EXAMINER Work Phone: [facility] Payers Date Payer Category Payer Medicare ON LICENSE OF [facility] MEDICARE ADVANTAGE ON LICENSE OF [facility] MEDICARE ADVANTAGE [id number] 2021-Present [address] [place] [id number] 2021 Medicare (Managed Care) [facility] ADVANTAGE [id number] 1959 Unknown [id number] 1959 Unknown [id number] 1938 Unknown [id number] 2.16.840.1.092834.3.579.2 .593 1938 Unknown [id number] 2.840.1.830391.3.579.2 .593 1938 Unknown [id number] 2.16.840.1.380100.3.579.2 .593 1938 Unknown [id number] 2.16.840.1.035418.3.579.2 .593 1938 Unknown [id number] 2.16.840.1.858836.3.579.2 .593 1938 Unknown [id number] 2.16.840.1.306788.3.579.2 .593 1938 Unknown [id number] 2.16.840.1.552925.3.579.2 .593 1938 Unknown [id number] 2.16.840.1.536430.3.579.2 .593 1938 Unknown [id number] 2.16840.1.106873.3.579.2 .593 1938 Unknown [id number] 2.16.840.1.758794.3.579.2 .593 1938 Unknown [id number] 2.16840.1.759125.3.579.2 .593 1938 Unknown [id number] 2.16840.1.690142.3.579.2 .593 1938 Unknown [id number] 2.16840.1.073534.3.579.2 .593 1938 Unknown [id number] 2.16.840.1.219531.3.579.2 .593 1938 Unknown [id number] 2.16.840.1.404089.3.579.2 .593 1938 Unknown [id number] 2.16.840.1.618477.3.579.2 .593 1938 Unknown [id number] 2.16.840.1.551342.3.579.2 .593 1938 Unknown [id number] 2.16.840.1.392937.3.579.2 .593 1938 Unknown [id number] 2.16.840.1.659186.3.579.2 .593 1938 Unknown [id number] 2.16.840.1.767649.3.579.2 .593 1938 Unknown [id number] 2.16.840.1.216401.3.579.2 .593 1938 Unknown [id number] 2.16.840.1.756919.3.579.2 .593 1938 Unknown [id number] 2.16.840.1.195606.3.579.2 .593 1938 Unknown [id number] 2.16.840.1.742158.3.579.2 .593 1938 Unknown [id number] 2.16.840.1.753767.3.579.2 .727 1938 Unknown [id number] 2.16.840.1.590236.3.579.2 .727 1938 Unknown [id number] 2.16.840.1.645090.3.579.2 .727 1938 Unknown [id number] 2.16.840.1.165235.3.579.2 .727 1938 Unknown [id number] 2.16.840.1.767284.3.579.2 .727 1938 Unknown [id number] 2.16.840.1.961837.3.579.2 .732 1938 Unknown [id number] 2.16.840.1.433702.3.579.2 .173 1938 Unknown [id number] 2.16.840.1.067741.3.579.2 .1259 1938 Unknown [id number] 2.16.840.1.081373.3.579.2 .1259 1938 Unknown [id number] 2.16.840.1.813558.3.579.2 .1258 1938 Unknown [id number] 2.16.840.1.500765.3.579.2 .9 1938 Unknown [id number] 2.16.840.1.957156.3.579.2 .1258 1938 Unknown [id number] 2.16.840.1.406539.3.579.2 .1258 1938 Unknown [id number] 2.16.840.1.940377.3.579.2 .1258 1938 Unknown [id number] 2.16.840.1.166863.3.579.2 .1258 1938 Unknown [id number] 2.16.840.1.979471.3.579.2 .1258 1938 Unknown [id number] 2.16.840.1.819943.3.579.2 .1259 Social History Date Type Detail Facility Start: 09-03-2021 Tobacco smoking status Ex-smoker (fi nding) [facility] Start: 11-01-2022 End: 12-11-2023 Sex Assigned At Male [facility] Start: 04-26-2022 End: 11-14-2022 Tobacco smoking status Never smoked tobacco (finding) [facility] Tobacco smoking status Never [facility] Start: 11-14-2022 Tobacco use and exposure Smokeless [...] 11-11-2023 Functional Status N/A [facility] 09-16-2022 Functional Status N/A [facility] 04-26-2022 Functional Status N/A [facility] 12-03-2021 Functional Status N/A [facility] 09-03-2021 Functional Status N/A [facility] Clinical Notes 09-03-2021 to 01-08-2024 Darcy Sandoval, [...] Past Medical History: Diagnosis Date Diabetes mellitus ([facility]) Diverticulosis History of being hospitalized 10/07/2023 Acute Metabolic Encephalopathy Hypertension ([facility]) Lung nodule Memory loss Neuropathy Renal cyst 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 documented in this encounter [facility] 12-25-2023 History of Present illness Narrative Images [...] follow-ups on file. 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 80% [...] initially admitted to the hospitalist service from [place] due to recurrent episodes of syncope secondary [...] his presenting complaints. During his stay in [place] ED he suddenly developed bradycardia prolonged sinus pause up to 18 seconds and became unresponsive. Code was activated and at the beginning of CPR he had regained his consciousness. He had another episode of sinus pause of about 12 seconds prior to transfer, however did not lose his consciousness at this time. On arrival to [facility] blood pressure was 158/72 mmHg, pulse rate 78 bpm, regular, SpO2 100% on room air, respiratory rate 20/min, temperature 97.2. 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 CT of the abdomen with contrast done at [place] ED showed nonobstructive bowel gas pattern with [...] significantly. Daily evaluated the patient on 11/21/2023. Ruby slip was removed and they deemed patient [...] Center 12/02/2023 2:20 PM Liu Henning MD [facility] Heart[facility] Your medication list START taking these medications Instructions Last Dose Given Next Dose Due amLODIPine 10 mg tablet Commonly known as: Norvasc Start taking on: November 23, 2023 Take 1 tablet (10 mg) by mouth in the morning. Do not start bef (more content not included)... [facility] 11-22-2023 Note Physical Therapy Name: Nat Moore Date of : 1940 Today's Date: 11/22/23 Pt is unable to be seen for therapy at this time secondary to pt to discharge @ 2:00 PM today. Check No Charge Time attempted: 1405 [facility] 11-22-2023 Note Pt originally set fo r 9am BLS transport to [facility] but per MD we will push back to 2pm transport due to high blood pressures. UPDATE 1:15PM- Per MD pt can still discharge today. Transport set for 2pm via [facility]. Assembled transfer packet and placed by chart. Sent final AVS and discharge orders via [employer]. Notified RN and pt's is aware of transport time. [facility] 11-21-2023 Note Attestation signed by Juan [...] is for the patient to go to [facility]. Discussed with the family that our strong [...] with Dr. Liz. Melva Recinos MD PGY2 [facility] 11-21-2023 Note Hospital Medicine Daily Progress Note - 11/21/2023 2:13 PM; Room: [address] [place] [address] Admission: 11/15/2023 2:42 PM; Length of stay: 6 days THE HOSPITALIST TEAM PREFERS TO USE [facility] CHAT FOR COMMUNICATION 7AM-7PM. IF I DO NOT RESPOND WITHIN 15 MINUTES, PLEASE PAGE ME/CALL THROUGH THE [employer] LAYER. 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 Ruby slip removed. No need for psych admission. [...] CALCIUM mg/dL 8. (more content not included)... [facility] 11-21-2023 Note Physical Therapy Physical Therapy [...] a.m. Upon entry, pt in bed. This PROSPECTING OBSERVER introduces herself and intention for session. Per [...] state President. Did state he was at [facility] .) Following Commands: Follows one step commands [...] 2 is given. Gait belt is donned, UNION CONTRACT REPRESENTATIVE is given on the right side and [...] to advance BLEs to EOB but uses PROSPECTING OBSERVER's hand with his right hand to assist in raising upper body from bed. Bed Mobility 2 Bed Mobility From 2: Scooting Bed Mobility Type 2: To Bed Mobility to 2: (EOB in sitting) Level of Assistance 2: Minimum assistance Bed Mobility Comments 2: Pt uses PROSPECTING OBSERVER's hand with his right hand to assist in scooting hips to EOB Transfers Transfer: Yes Transfer 1 Transfer From 1: Sit Transfer Type 1: To and from Transfer to 1: Stand Transfer Device 1: none (PROSPECTING OBSERVER and aide on either side of pt) Transfer Level of Assistance 1: Minimum assistance, x2 Trials/Comments 1: Pt. instructed to (more content not included)... [facility] 11-21-2023 Note Attestation signed by Juan [...] Patient Name: Nat Moore MRN / CSN: [id number] Date of / Age: 1 1940 / [...] mild cognitive impairment originally presenting to the [facility] Emergency Room on 11/15/2023 for evaluation of recurrent episodes of syncope secondary to spontaneous prolonged sinus pause. The patient was transferred via air ambulance from the [facility]. 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 The patient reports being to his , Donna, and having 4 children. He reports he came from [place] where he lives, but was not able to describe why he came to hospital or where he is now. 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 Reported Behavior: Combative and agitated PRN [...] injection PRN 8/ (more content not included)... [facility] 11-20-2023 Note 11/20/23 1730 Referral Data [...] Support Systems Spouse/significant other Type of Residence group home facility Will patient need Precert for Post Acute needs? Yes Patient's goal for discharge would like the facility in [place] for rehab 1. [place] 2. [place] [facility] 3. (if not accepted in [place]) she is ok with [facility]. Does the patient need discharge transport arranged? Yes SW called patient to discuss consult for SNF placement for rehab. Patient is currently confused and not able to answer questions. SW discussed network provider list. would like provider in [place] [facility] [place] [facility] 1[facility] choice. She would [place] [facility] 2nd and [facility]. Referrals made as requested. Precert will be needed. SW following. [facility] 11-20-2023 Note Attestation signed by William [...] [facility] 83 [facility] 1940 [id number] Date of Admission - 11/15/2023 2:42 PM HPI/Hospital Course Nat Moore is a an 83-year-old gentleman with PMH significant for type 2 diabetes mellitus, essential hypertension, hyperlipidemia, CKD stage IIIa, bilateral lower extremity edema on diuretic therapy, osteoarthritis, depression and mild cognitive impairment was initially admitted to the hospitalist service from [place] due to recurrent episodes of syncope secondary [...] his presenting complaints. During his stay in [place] [facility] he suddenly developed bradycardia prolonged sinus [...] of the abdomen with contrast done at [place] [facility] showed nonobstructive bowel gas pattern with [...] no focal deficit (more content not included)... [facility] 11-19-2023 Note Speech Educational Aide ology Speech/Language Pathology Clinical Swallow Assessment Rx: [...] calcifications who presented via air ambulance from [facility] due to recurrent episodes of syncope secondary to spontaneous prolonged sinus pause. He had initially presented for worsening midsternal chest pain lower back pain located in his mid chest aching in nature, 6 out of 10 on intensity scale, nonradiating associated with SOB. During his stay at [place] he developed bradycardia prolonged sinus pause up [...] (in puree) Recommendations Duration of Treatment: 15 [facility] 11-19-2023 Note Attestation signed by William Feldman MD at 11/19/2023 5:04 PM I reviewed the salient portions of the patient history. I have seen and examined the patient during rounds with the resident/fellow Tahira . I repeated the ab components of the exam. Agree with the noted assessment and plan. Patient became perfused the reason why was started on Seroquel and now increased the Seroquel 25 twice daily. Dopamine was weaned and currently is discontinued. Pacemaker is in place and functioning William Feldman MD Pulmonary Progress Note Patient - Nat Moore Age - 83 y.o. - 1940 [facility] # - [id number] Date of Admission - 11/15/2023 2:42 PM HPI/Hospital Course Nat Moore is a an 83-year-old gentleman with PMH significant for type 2 diabetes mellitus, essential hypertension, hyperlipidemia, CKD stage IIIa, bilateral lower extremity edema on diuretic therapy, osteoarthritis, depression and mild cognitive impairment was initially admitted to the hospitalist service from [place] due to recurrent episodes of syncope secondary [...] his presenting complaints. During his stay in [place] [facility] he suddenly developed bradycardia prolonged sinus [...] of the abdomen with contrast done at [place] [facility] showed nonobstructive bowel gas pattern with [...] Results CBC: Result (more content not included)... [facility] 11-19-2023 Note Attestation signed by Nora [...] calcifications who presented via air ambulance from [facility] due to recurrent episodes of syncope secondary to spontaneous prolonged sinus pause. He had initially presented for worsening midsternal chest pain lower back pain located in his mid chest aching in nature, 6 out of 10 on intensity scale, nonradiating associated with SOB. During his stay at [place] he developed bradycardia prolonged sinus pause up [...] NAD. Resting comfortably. Still in restraints. S/p [employer] DC-PPM yesterday, tolerated well. OBJECTIVE Objective [...] , , Once (more content not included)... [facility] 11-19-2023 Note 11/19/23 1125 Admission Assessment [...] Status Interested Does the patient have a case packer assigned to them through their insurance? No Living Arrangement (Current/Prior to Hospitalization) Private residence (with ) Does the patient have history of HHC or SNF? No Assistive Device Cane Patient's goal for discharge likely snf Was patient reminded that goal for discharge is 11am? No Does the patient have transportation at discharge? No Type of Residence group home facility Is PT/OT appropriate? Yes Is PT/OT ordered? Yes Is SW consult appropriate? Yes Is SW consult ordered? Yes Do you understand the benefits of MyChart? No Were you able to send link and activate MyChart? No [facility] 11-19-2023 Note Consult rec'd for SN F. PT/OT recommend SNF. No family at bedside at this time. SW to try again later. [facility] 11-19-2023 Note Physical Therapy Physical Therapy [...] Level of Function Prior Function Level of Moody: Independent with ADLs and functional transfers, Needs [...] patient with difficul (more content not included)... [facility] 11-19-2023 Note Occupational Therapy Occupational Therapy Evaluation Patient Name: Nat Moore : 1940 Today's Date: 11/19/2023 Time In: 941 Time Out: 1005 admitted to the hospitalist service from [place] due to recurrent episodes of syncope secondary [...] directions Memory: Decreased short term memory, Decreased ocean transportation intermediary memory, Decreased recall of precautions, Decreased recall of biographical information, Decreased recall of recent events Communication: (labored , dysarthic) General Assessment General Assessment Hearing: ([place], hearing aids not observed but has them per nsg) Hand Dominance: Right Home Living Home Living Type of Home: (patient unable to report consistantly) Prior Level of Function Prior Function Level of Moody: (reports indep and drives) Prior Functional Mobility: [...] until discharge & PRN OT Discharge Recommendations: group home facility placement OT - Discharge Recommendations Placed: Yes OT Goals Multi-Disciplinary Problems (from Occupational Therapy) Active Problems Problem: Balance Start Date: 11/19/23 Goal Start Date Expected End Date End Date LTG - Patient will maintain stand balance to allow for safe mobility 11/19/23 12/17/23 -- Problem: Bathing Start Date: 11/19/23 Goal Start Date Expected End Date End Date LTG (more content not included)... [facility] 11-18-2023 Note Attestation signed by William [...] Moore [facility] - 83 [facility]. [facility] 1940 [id number] Date of Admission - 11/15/2023 2:42 PM HPI/Hospital Course Nat Moore is a an 83-year-old gentleman with PMH significant for type 2 diabetes mellitus, essential hypertension, hyperlipidemia, CKD stage IIIa, bilateral lower extremity edema on diuretic therapy, osteoarthritis, depression and mild cognitive impairment was initially admitted to the hospitalist service from [place] due to recurrent episodes of syncope secondary [...] his presenting complaints. During his stay in [place] [facility] he suddenly developed bradycardia prolonged sinus [...] of the abdomen with contrast done at [place] [facility] showed nonobstructive bowel gas pattern with [...] 11.9* 12.4* HE (more content not included)... [facility] 11-18-2023 Note Attestation signed by Nora [...] calcifications who presented via air ambulance from [facility] due to recurrent episodes of syncope secondary to spontaneous prolonged sinus pause. He had initially presented for worsening midsternal chest pain lower back pain located in his mid chest aching in nature, 6 out of 10 on intensity scale, nonradiating associated with SOB. During his stay at [place] he developed bradycardia prolonged sinus pause up [...] NAD. Resting comfortably. Still in restraints. S/p [employer] DC-PPM this morning, tolerated well. OBJECTIVE [...] PRN, Nils Lam (more content not included)... [facility] 11-18-2023 Note DUAL CHAMBER PACEMAK ER IMPLANT PROCEDURE NOTE DATE OF PROCEDURE: 11/18/23 PERFORMING PHYSICIAN: Dr. Sam Zelaya CONSENT: Patient LOCATION: EP Lab PROCEDURE PERFORMED: 1. Implantation of pacemaker ([employer]) 2. Ultrasound guided venous access INDICATIONS: [...] using modified seldinger technique using a 5 Taiwanese micro-puncture needle on two occasions and 0.35 [...] for the device above the muscle. 6 Taiwanese Safesheaths were placed over the wire. An active fixation [employer] pacing lead was then delivered through the 6Fsheath to the right ventricle. After confirmation of lead position on orthogonal views (WILKINSON and INDONESIAN) to confirm septal position, the screw was [...] was then removed. Then an active fixation [employer] lead was delivered through the 6Fsheath to the right atrial appendage. After confirmation of lead position on orthogonal views (WILKINSON and INDONESIAN), the screw was activated. Good sensing parameters, [...] any concerns. Sam Zelaya MD Cardiac Electrophysiology [facility] 11-17-2023 Note Attestation signed by Nora [...] calcifications who presented via air ambulance from [facility] due to recurrent episodes of syncope secondary to spontaneous prolonged sinus pause. He had initially presented for worsening midsternal chest pain lower back pain located in his mid chest aching in nature, 6 out of 10 on intensity scale, nonradiating associated with SOB. During his stay at [place] he developed bradycardia prolonged sinus pause up [...] oral, Daily, [place] (more content not included)... [facility] 11-17-2023 Note Attestation signed by William [...] initially admitted to the hospitalist service from [place] due to recurrent episodes of syncope secondary [...] his presenting complaints. During his stay in [place] [facility] he suddenly developed bradycardia prolonged sinus [...] of the abdomen with contrast done at [place] [facility] showed nonobstructive bowel gas pattern with [...] planning on taking the patient to the Bump Gr[facility] Operator tomorrow for possible transvenous pacemaker placement SUBJECTIVE [...] hours) at 11/17/2023 (more content not included)... [facility] 11-16-2023 Note Cardiovascular Labor atory Report [...] left radial artery was obtained. A 6 Taiwanese glide sheath was inserted without difficulty. Difficulty [...] a mid v (more content not included)... [facility] 11-16-2023 Note Attestation signed by Salena [...] permanent pacemaker implantation tomorrow Salena Alcaraz MD, [facility] Cardiology Progress Note Subjective Subjective: Patient had [...] Value Ventricular Rate 85 Atrial Rate 85 VA Interval 266 QRS DURATION 104 QT Interval 390 QTC CALCULATION(BAZETT) 464 P [place] 71 R-[place] -60 T Wave [place] 49 Impression Sinus rhythm with 1st degree A-V block Left axis deviation Inferior infarct (cited on or before 21-JUL-2012) Cannot rule out Anterior infarct (cited on or before 15-NOV-2023) Abnormal ECG When compared with ECG of 15-NOV-2023 19:56, (unconfirmed) No significant change was found Lab Results Component Value Date TROPONINI 0.01 11/15/2023 Transthoracic echo (TTE) complete Result Date: 11/15/2023 1 1 [facility] Heart Station [address] [place] [address] [phone] (fax) Echocardiogram-[facility] Name: NAT MOORE Study Date: 11/15/2023 05:06 PM B/P: 158 mmHg/72 mmHg HR: Date of : 1940 Location: [facility] Height: 65 in. Age: 83 year(s) [...] sizeNo significant v (more content not included)... [facility] 11-15-2023 Note CODE BLUE was called on this patient after he sustained a 10 the second sinus pause and then a 7-second sinus pause. Patient with brief LOC. Patient with multiple episodes of nausea and vomiting. MICU fellow at bedside who states he will transfer patient to MICU for transcutaneous pacing. [facility] 11-15-2023 Note Hospital Medicine History and Physical 11/15/2023 5:58 PM THE HOSPITALIST TEAM PREFERS TO USE [facility] CHAT FOR COMMUNICATION 7AM-7PM. IF I DO NOT RESPOND WITHIN 15 MINUTES, PLEASE PAGE ME/CALL THROUGH THE FIREBRICK LAYER. FROM 7PM-7AM, PLEASE PAGE [phone](COVR) Chief Complaint No chief complaint on file. History of Present Illness Nat Moore is an 83 y.o. severely obese male with a medical history significant for type 2 diabetes mellitus, essential hypertension, hyperlipidemia, CKD stage IIIa, bilateral lower extremity edema on diuretic therapy, osteoarthritis, coronary calcifications, depression, mild cognitive impairment, who was transferred via air ambulance from the [facility] due to recurrent episodes of syncope secondary to spontaneous prolonged sinus pause. Patient states that he presented to the [place] [facility] due to worsening midsternal chest pain [...] his presenting complaints. During his stay in [place] [facility] he suddenly developed bradycardia prolonged sinus [...] of the abdomen with contrast done at [place] [facility] showed nonobstructive bowel gas pattern with [...] no oral abnorma (more content not included)... [facility] 11-11-2023 Hospital Discharge instructions Patient Education [...] your health care provider. General instructions Take kkmc-wgk-rscolpd and prescription medicines only as told by [...] provider. Document Revised: 11/27/2020 Document Reviewed: 11/27/2020 [employer] Patient Education 2022 [employer]. Follow Up Care 10/14/2023 13:29:56 With:RAUL Ingram APRN, RIANNA Abad, URL Address: When: Unknown Comments:f/up in 3 mos [facility] 11-11-2023 Note Patient Education Obstetrics and [...] health care provider. General instructions ? Take wdwz-xet-sufdscn and prescription medicines only as told by [...] your health care (more content not included)... [facility] 09-16-2022 Hospital Discharge instructions Patient Education 09/16/2022 [...] your health care provider. General instructions Take yjsj-bfr-gbyhbek and prescription medicines only as told by [...] provider. Document Revised: 11/27/2020 Document Reviewed: 11/27/2020 [employer] Patient Education 2022 [employer]. Follow Up Care 04/26/2022 11:39:09 With:ERIK MENG, Umer Schultz, URL Address: [facility] [address], [place] [address]- When: Unknown [facility] Jillian 05-23-2022 Note CONSULTATION CONSULTATION DATE: [...] indicated. Patient agrees with this plan. [facility] 04-26-2022 Hospital Discharge instructions Patient [...] urethra. Follow these instructions at home: Take qzed-nhv-hxbaxlo and prescription medicines only as told by [...] 03/10/2006 Document Revised: 02/02/2019 Document Reviewed: 04/14/2017 Else[employer] Patient Education 2020 [employer]. Follow Up Care 04/08/2022 14:01:00 With:ERIK MENG, Umer Schultz, URL Address: [address] [place] [address] [place] [address]- When: Unknown [facility] 04-08-2022 Hospital Discharge instructions Patient Education [...] urethra. Follow these instructions at home: Take ibwp-twl-ubbxtng and prescription medicines only as told by [...] 03/10/2006 Document Revised: 02/02/2019 Document Reviewed: 04/14/2017 [employer] Patient Education 2020 [employer]. Follow Up Care 12/03/2021 14:11:02 With:ERIK MENG, Umer Schultz, URL Address: [facility] [address] , [place] [address]- When: Unknown [facility] 01-22-2022 Note CONSULTATION CONSULTATION DATE: 01/22/2022 [...] proceed. CC: Juan Pablo Alaniz M.D. 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 He does not use heat or ice to his back at this time. Current medications include gabapentin 200 mg t.i.d., nabumetone 750 mg b.i.d., [place] 5/325 t.i.d. Patient does use a walking [...] L3 and L4, L5. A refill for [place] 5/325 t.i.d. will be sent today. He will receive an oral U-Tox in the office today. Supportive measures such as stretching, a menthol heat rub and heat application to his back were discussed. I did recommend a Boost supplement daily. Patient will be followed up in the office post procedure and agrees to move forward. [facility] 12-03-2021 Hospital Discharge instructions Patient [...] urethra. Follow these instructions at home: Take sdxv-iow-jdhnzqu and prescription medicines only as told by [...] 03/10/2006 Document Revised: 02/02/2019 Document Reviewed: 04/14/2017 [employer] Patient Education 2020 [employer]. Follow Up Care 09/03/2021 14:17:23 With:ERIK MENG, Umer Schultz, URL Address: [facility] [address] [place] [address]- [phone] When:04/04/2022 Comments:PVR [facility] Jillian 10-02-2021 Note CONSULTATION PROCEDURE DATE: [...] he reports mitigation of his pain symptomatology. [facility] Signed and Approved by: DR VINH HOLCOMB . 10/09/2021 09:28:00 [facility] 10-02-2021 Note CONSULTATION CONSULTATION DATE: 10/02/2021 [...] three times a day. We will re-prescribe [place] 5/325 t.i.d. which he had received from [...] to proceed. CC: Juan Pablo Alaniz M.D. [facility] Signed and Approved by: DR VINH HOLCOMB . 10/09/2021 09:28:00 [facility] 09-03-2021 Hospital Discharge instructions Patient Education [...] 03/10/2006 Document Revised: 11/27/2018 Document Reviewed: 02/07/2017 [employer] Patient Education 2020 [employer]. 09/03/2021 13:53:06 Benign Prostatic Hyperplasia Benign Prostatic [...] urethra. Follow these instructions at home: Take smwa-klc-ixytltm and prescription medicines only as told by [...] 03/10/2006 Document Revised: 02/02/2019 Document Reviewed: 04/14/2017 [employer] Patient Education 2020 [employer]. Follow Up Care 07/03/2021 15:21:16 With:Umer VALENCIA MD, URL Address: [facility] [address], [place] [address]- [phone] When:Within 3 Month(s) Comments:f/u in 3 months with PVR scan [facility] Evaluation + Plan note Future Appointments Appointment Date:12/03/2021 01:15:00 PM Scheduled Provider:Umer VALENCIA MD Location:[facility] Appointment Type:URO Office Visit [facility] Evaluation + Plan note Future Appointments Appointment Date:04/08/2022 12:45:00 PM Scheduled Provider:Umer VALENCIA MD [facility] Appointment Type:URO Office Visit [facility] Evaluation + Plan note Future Appointments Appointment Date:04/26/2022 10:15:00 AM Scheduled Provider:Umer VALENCIA MD Location[facility] Appointment Type:URO Office Visit [facility] Evaluation + Plan note Future Appointments Appointment Date:07/22/2022 08:45:00 AM Scheduled Provider:Umer VALENCIA MD [facility] Type:[facility]O Office Visit [facility] Evaluation + Plan note Future Appointments Appointment Date:12/20/2022 08:30:00 AM Scheduled Provider:Umer VALENCIA MD [facility] note Future Appointments Appointment Date:11/11/2023 01:00:00 PM Scheduled Provider:RAUL Ingram APRN Marianela X Location:[facility] Appointment Type:URO Office Visit [facility] [employer] Evaluation + Plan note Future Appointments Appointment Date:02/10/2024 12:30:00 PM Scheduled Provider:RAUL Ingram APRN Marianela X Location:[facility] Appointment Type:URO Office Visit [facility] [employer] Evaluation note Diagnosis Localized edema- Primary Edema Acute cough [facility] this encounter [facility] Diagnosis Edema, unspecified type- Primary Altered mental status, unspecified altered mental status type documented in this encounter [facility] Narrative No data available for this section [facility] [employer] Hospital Discharge instructions No data available for this section [facility] [employer] progress note No data available for this section [facility] [employer] Summary Purpose Family History No Family History [...] and content) DATE CREATED AUTHOR 11/14/2020 [facility] DATE CREATED AUTHOR AUTHOR'S ORGANIZ ATION 08/02/2022 [facility] DATE CREATED AUTHOR AUTHOR'S ORGANIZ ATION 11/13/2023 [facility] DATE CREATED AUTHOR AUTHOR'S ORGANIZ ATION 11/17/2023 [facility] DATE CREATED AUTHOR AUTHOR'S ORGANIZ ATION 11/24/2023 [facility] DATE CREATED AUTHOR AUTHOR'S ORGANIZ ATION 12/07/2023 [facility] DATE CREATED AUTHOR AUTHOR'S ORGANIZ ATION 01/11/2024 [facility] Care Team (unrecognized sect ion and content) Scheduling Clerk Relationship Specialty Start Date End Date Juan Pablo Alaniz MD [address] [place] [address] PCP - Peg [place] 03/24/21 Juan Pablo Alaniz MD [address] [place] [address] PCP - General Internal Medicine 07/30/22 Scheduling Clerk Relationship Specialty Start Date End Date Juan Pablo Alaniz MD [address] [place] [address] PCP - Peg [place] 03/24/21 Juan Pablo Alaniz MD [address] [place] [address] PCP - General Internal Medicine 07/30/22 Scheduling Clerk Relationship Specialty Start Date End Date Juan Pablo Alaniz MD [address] [place] [address] PCP - Peg [place] 03/24/21 Juan Pablo Alaniz MD [address] [place] [address] PCP - General Internal Medicine 07/30/22 Reason [...] BE BASED ON THE PRIMARY CLINICAL RECORDS. [facility]. provides no warranty or guarantee of the accuracy or completeness of information in this document.
--- OUTSIDE RECORDS SUMMARY | 2024-01-22 18:43 | XMS_ITS | CCD ---
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 Name Role Phone JUAN PABLO ALANIZ Primary Care Physician [phone] DR JUAN PABLO ALANIZ Primary Care Unavailable [...] CARMINE, DR YAKELIN Lucas Admitting Unavailabl e REINFASIAL, DR YAKELIN Lucas Attending Unavailabl e MAYITO [...] Care Unavailable Juan Pablo Alaniz MD Unavailable [phone] Juan Pablo Alaniz MD Primary Care Provider [phone] JUAN PABLO ALANIZ Attending Unavailable JUAN PABLO ALANIZ Attending Unavailable JUAN PABLO ALANIZ Attending Unavailable JUAN PABLO ALANIZ Attending Unavailable TOMMY GABRIEL Attending Unavailable DARCY SANDOVAL Attending Unavailable LORIDARCY Attending Unavailable LORIDARCY Attending Unavailable LORIDARCY Attending Unavailable LORIDARCY Attending Unavailable Allergies Allergy Classification Reported Allergen(s) Allergy Type Date of Onset Reaction(s) Facility (10 sources) Penicillin; Translations: [penicillin] Drug Allergy 12-01-2021 [facility] (3 sources) Penicillins; Translations: [PENICILLINS] Drug allergy (disorder) 11-15-2023 [facility] (6 sources) Penicillin G Drug Allergy 11-01-2022 [facility] Work Phone: (5 sources) Codeine Drug Allergy 12-25-2023 [facility] Medications Current Medications Medication Drug Class(es) [...] # 30 tab(s), Refills(s) 11, Pharmacy: [facility], 167, cm, 09/16/22 15:10:00 EDT, Height/Length Dosing, 120, kg, 09/16/22 15:10:00 EDT, Weight Dosing Start Date: 10/01/23 Status: Ordered Start: 09-16-2022 End: 09-11-2023 take 1 tablet by mouth once daily Vesicare 10 mg Tab 10 mg = 1 tab(s), Oral, Daily, X 30 day(s), # 30 tab(s), Refills(s) 11, Pharmacy: [facility] 1155, 167, cm, 09/16/22 15:10:00 EDT, Height/Length Dosing, 120, kg, 09/16/22 15:10:00 EDT, Weight Dosing Start Date: 09/16/22 Stop Date: 09/11/23 Status: Ordered Start: 04-26-2022 [facility]are 5 mg Tab 5 mg = 1 tab(s), Oral, Daily, # 30 tab(s), Refills(s) 11, Pharmacy: [facility] 1155, 174, cm, 12/03/21 13:40:00 EDT, Height/Length Dosing, 112, kg, 12/03/21 13:40:00 EDT, Weight Dosing Start Date: 04/26/22 Status: Ordered tamsulosin hydrochloride 0.4 mg oral capsule (14 sources) alpha-Adrenergic Levi Start: 10-01-2023 take 1 capsule by mouth once daily Flomax 0.4 mg Cap 0.4 mg = 1 cap(s), Oral, Daily, # 30 cap(s), Refills(s) 11, Pharmacy: [facility] 1155, 167, cm, 09/16/22 15:10:00 EDT, Height/Length Dosing, 120, kg, 09/16/22 15:10:00 EDT, Weight Dosing Start Date: 10/01/23 Status: Ordered Start: 10-31-2022 take 1 capsule by mo [facility] every twenty-four hours in the morning [...] # 90 cap(s), Refills(s) 3, Pharmacy: [facility], 174, cm, 09/03/21 13:40:00 EDT, Height/Length Dosing, 112.5, kg, 09/03/21 13:40:00 EDT, Weight Dosing Start Date: 10/25/21 Status: Ordered Start: 07-03-2021 take 1 capsule by mouth once d aily Flomax 0.4 mg Cap 0.4 mg = 1 cap(s), Oral, Daily, # 30 cap(s), Refills(s) 3, Pharmacy: [facility], 174, cm, 07/17/20 5:39:00 EDT, Height/Length Dosing, 112.5, kg, 07/17/20 5:39:00 EDT, Weight Dosing Start Date: 07/03/21 Status: Ordered 24 hr tolterodine tartrate 4 mg extended release oral capsule (4 sources) Cholinergic Muscarinic Antagonist Start: 01-17-2021 take 1 capsule by mouth once daily tolterodine 4 mg Cap-ER 4 mg = 1 cap(s), Oral, Daily, # 30 cap(s), Refills(s) 11, [facility]: [facility], 174, cm, 09/03/21 13:40:00 EDT, Height/Length [...] disease (8 sources) Atherosclerotic heart disease of [place] coronary artery with unspecified angina pectoris; Translations: [...] 11-29-2021 Episodic Other aftercare (1 source) Other half-way (current) drug therapy; Translations: [OTH [facility] CURRENT DRUG THERAPY] Onset: 07-31-2022 Episodic Other aftercare (1 source) 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; Translations: [[facility] USE ORAL HYPOGLYCEMIC DX] Onset: 07-31-2022 Episodic [...] OF COVID-19] Onset: 03-06-2022 Unclassified (1 source) BALLOON DIPPER INJECT NONINSULN ANTIDIAB; Translations: [BALLOON DIPPER INJECT NONINSULN ANTIDIAB] Onset: 03-02-2022 Unclassified (2 [...] Long-term current use of insulin; Translations: [terminal supervisor (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 [address] [employer] Consultant: Eliud Leonard MD BUN/CRE Ratio 20 Normal 12-11 [facility] Comment on above: Performed By: #### B MP #### [facility] [address] [place] [address] [employer] Consultant: Eliud Leonard MD Calcium [Mass/Vol] 8.5 mg/dL Low 8.6-10.4 [facility] Comment on above: Performed By: #### B MP #### [facility] [address] [place] [address] [employer] Consultant: Eliud Leonard MD Chloride [Moles/Vol] 108 mmol/L High 98-107 [facility] Comment on above: Performed By: #### B MP #### [facility] [address] [place], [place] [id number] [employer] Consultant: Eliud Leonard MD CO2 [Moles/Vol] 26 mmol/L Normal 20-31 [facility] Comment on above: Performed By: #### B MP #### [facility] [address] [place] [address] [employer] Consultant: Eliud Leonard MD Creatinine [Mass/Vol] 1.6 mg/dL High 0.70-1.20 [facility] Comment on above: Performed By: #### B MP #### [facility] [address] [place] [address] [employer] Consultant: Eliud Leonard MD GFR/1.73 sq M.predicted among non-blacks MDRD (S/P/Bld) [Vol rate/Area] 41 mL/min/{1.73_m2} Low >60 [facility] Comment on above: Result Comment: [...] secretion. Performed By: #### B MP #### [facility] [address] [place] [address] [employer] Consultant: Eliud Leonard MD Glucose [Mass/Vol] 66 mg/dL Low 74-99 [facility] Comment on above: Performed By: #### B MP #### [facility] [address] [place] [address] [employer] Consultant: Eliud Leonard MD Potassium [Moles/Vol] 4.3 mmol/L Normal 3.7-5.3 [facility] Comment on above: Performed By: #### B MP #### [facility] [address] [place] [address] [employer] Consultant: Eliud Leonard MD Sodium [Moles/Vol] 143 mmol/L Normal 136-145 [facility] Comment on above: Performed By: #### B MP #### [address] [place] [address] [employer] Consultant: Eliud Leonard MD Urea nitrogen [Mass/Vol] 32 mg/dL High 8-23 [facility] Comment on above: Performed By: #### B MP #### [facility] [address] [place] [address] [place] [address] [employer] Consultant: Eliud Leonard MD Cult,Urineon 12-01-2023 Cult,Urine Specimen Description .CLEAN CATCH URINE Culture NO SIGNIFICANT GROWTH Report Status FINAL 12/01/2023 Normal [facility] Comment on above: Performed By: #### U RC #### [address] [id number] [employer] Consultant: [place] MD [facility] [address] [place] [address] [place] [address] [employer] Consultant: Eliud Leonard MD Urinalysis, Routineon 2023 Bilirubin, SemiQt,Ur Negative Normal NEG [facility] Comment on above: Performed By: #### U A #### [address] [place] [address] [employer] Consultant: Eliud Leonard MD Blood, Urine Negative Normal NEG [facility] Comment on above: Performed By: #### U A #### [facility] [address] [place] [address] [employer] Consultant: Eliud Leonard MD Clarity (U) Clear Normal CLEAR [facility] Comment on above: Performed By: #### U A #### [facility] [address] [place] [address] [employer] Consultant: Eliud Leonard MD Color (U) Yellow Normal YEL [facility] Comment on above: Performed By: #### U A #### [facility] [address] [place], [place] [id number] [employer] Consultant: Eliud Leonard MD Glucose Ql (U) Negative Normal NEG [facility] Comment on above: Performed By: #### U A #### [facility] [address] [place] [address] [place] [address] [employer] Consultant: Eliud Leonard MD Ketones Ql (U) Negative Normal NEG [facility] Comment on above: Performed By: #### U A #### [facility] [address] [place] [address] [place], [place] [id number] [employer] Consultant: Eliud Leonard MD Leukocyte esterase Test strip Ql (U) Negative Normal NEG [facility] Comment on above: Performed By: #### U A #### [facility] [address] [place] [address] [place] [address] [employer] Consultant: Eliud Leonard MD Nitrite,Ur Negative Normal NEG [facility] Comment on above: Performed By: #### U A #### [facility] [address] [place], [place] [id number] [employer] Consultant: Eliud Leonard MD PH,Ur 6.0 Normal 5.0-9.0 [facility] Comment on above: Performed By: #### U A #### [facility] [address] [place], [place] [phone] [employer] Consultant: Eliud Leonard MD Protein Ql (U) Negative Normal NEG [facility] Comment on above: Performed By: #### U A #### [facility] [address] [place], [place] [id number] [employer] Consultant: Eliud Leonard MD Spec. [place],Ur 1.020 Normal 1.010-1.020 [facility] Comment on above: Performed By: #### U A #### [facility] [address] [place], [place] [id number] [employer] Consultant: Eliud Leonard MD Urobilinogen,Ur Normal Normal 0.0-1.0 [facility] Comment on above: Performed By: #### U A #### [facility] [address] [place], [place] [id number] [employer] Consultant: Eliud Leonard MD CT CERVICAL SPINE WO [...] midline. The ventricles and peripheral sulci are ddny-kn-qlexokszab dilated. There is decreased attenuation in the [...] Deacon Justice MD 11/28/23 Final result Normal [facility] CT HEAD WO CONTRASTon 2023 [...] midline. The ventricles and peripheral sulci are lliv-uw-oaagxdkhen dilated. There is decreased attenuation in the [...] Deacon Justice MD 11/28/23 Final result Normal [facility] 30on 11-22-2023 30 The patient [...] and maintained or improved Outcome: Progressing Normal [facility] BASIC METABOLIC PANELon 08-3 Anion gap [Moles/Vol] 10 mmol/L Normal 7-20 [facility] Comment on above: Performed By: #### L [id number] ####[facility] ([facility])[address] [place] [address] Calcium [Mass/Vol] 8.0 mg/dL Low 8.6-10.3 [facility] Comment on above: Performed By: #### L [id number] ####[facility] ([facility])[address] [place] [address] Chloride [Moles/Vol] 111 mmol/L High 98-107 [facility] Comment on above: Performed By: #### L [id number] ####[facility] ([facility])[address] [place] [address] CO2 [Moles/Vol] 29 mmol/L Normal 21-31 [facility] Comment on above: Performed By: #### L [id number] ####[facility] ([facility])[address] [place] [address] Creatinine [Mass/Vol] 1.36 mg/dL High 0.70-1.30 [facility] Comment on above: Performed By: #### L [id number] ####[facility] ([facility])[address] [place] [address] GLOMERULAR FILTRATION RATE ML/MIN/1.73 SQ M.PREDICTED 51.0 mL/min/1.73m*2 Low >[address]0 [facility] Comment on above: Result Comment: The [facility]???s estimated glomerular filtration rate (eGFR) will [...] of individuals. Performed By: #### L [id number] ####[facility] ([facility])[address] [place] [address] Glucose [Mass/Vol] 150 mg/dL High 70-100 [facility] Comment on above: Performed By: #### L [id number] ####[facility] ([facility])[address] [place] [address] Potassium [Moles/Vol] 3.3 mmol/L Low 3.5-5.1 [facility] Comment on above: Performed By: #### L [id number] ####[facility] ([facility])[address] [place] [address] Sodium [Moles/Vol] 147 mmol/L High 136-145 [facility] Comment on above: Performed By: #### L [id number] ####[facility] ([facility])[address] [place] [address] Urea nitrogen [Mass/Vol] 25 mg/dL Normal 7-25 [facility] Comment on above: Performed By: #### L [id number] ####[facility] ([facility])[address] [place] [address] UREA NITROGEN/CREATININ E (MASS RATIO) IN SER/PLAS 18.4 Normal [facility] Comment on above: Performed By: #### L [id number] ####[facility] ([facility])[address] [place] [address] CBC WITH AUTO DIFFERENTIALon 11-22-2023 Basophils (Bld) [#/Vol] 0.06 10*3/uL Normal 0.00-0.20 [facility] Comment on above: Performed By: #### L [id number] ####[facility] ([facility])[address] [place] [address] Basophils/100 WBC (Bld) 0.7 % Normal 0.0-1.0 [facility] Comment on above: Performed By: #### L [id number] ####[facility] ([facility])[address] [place] [address] Eosinophils (Bld) [#/Vol] 0.37 10*3/uL Normal 0.00-0.50 [facility] Comment on above: Performed By: #### L [id number] ####[facility] ([facility])[address] [place] [address] Eosinophils/100 WBC (Bld) 4.2 % Normal 0.0-6.0 [facility] Comment on above: Performed By: #### L [id number] ####[facility] ([facility])[address] [place] [address] Erythrocyte distribution width (RBC) [Ratio] 15.2 % High 11.5-15.0 [facility] Comment on above: Performed By: #### L [id number] ####[facility] ([facility])[address] [place] [address] ERYTHROCYTE MEAN CORPUSCULAR HEMOGLOBIN CONCENTRATION (G/DL) BY AUTOMATED 32.6 g/dL Normal 32.0-35.0 [facility] Comment on above: Performed By: #### L [id number] ####[facility] ([facility])[address] [place] [address] Hematocrit (Bld) [Volume fraction] 38.3 % Low 39.0-55.0 [facility] Comment on above: Performed By: #### L [id number] ####[facility] ([facility])[address] [place] [address] Hemoglobin (Bld) [Mass/Vol] 12.5 g/dL Low 13.0-17.0 [facility] Comment on above: Performed By: #### L [id number] ####[facility] ([facility])[address] [place] [address] Immature granulocytes (Bld) [#/Vol] 0.15 10*3/uL Normal 0.00-0.20 [facility] Comment on above: Performed By: #### L [id number] ####[facility] ([facility])[address] [place] [address] Immature granulocytes/100 WBC (Bld) 1.7 % High 0.0-1.0 [facility] Comment on above: Performed By: #### L [id number] ####[facility] ([facility])[address] [place] [address] Lymphocytes (Bld) [#/Vol] 1.19 10*3/uL Low 1.20-4.00 [facility] Comment on above: Performed By: #### L [id number] ####[facility] ([facility])[address] [place] [address] Lymphocytes/100 WBC (Bld) 13.6 % Low 20.0-45.0 [facility] Comment on above: Performed By: #### L [id number] ####[facility] ([facility])[address] [place] [address] MCH (RBC) [Entitic mass] 32.4 pg Normal 27.0-33.0 [facility] Comment on above: Performed By: #### L [id number] ####[facility] ([facility])[address] [place] [address] MCV (RBC) [Entitic vol] 99.2 fL High 82.0-98.0 [facility] Comment on above: Performed By: #### L [id number] ####[facility] ([facility])[address] [place] [address] Monocytes (Bld) [#/Vol] 0.93 10*3/uL Normal 0.10-1.00 [facility] Comment on above: Performed By: #### L [id number] ####[facility] ([facility])[address] [place] [address] Monocytes/100 WBC (Bld) 10.6 % Normal 5.0-12.0 [facility] Comment on above: Performed By: #### L [id number] ####[facility] [place] [address] Neutrophils (Bld) [#/Vol] 6.06 10*3/uL Normal 1.60-7.60 [facility] Comment on above: Performed By: #### L [id number] ####[facility] ([facility] [place] [address] Neutrophils/100 WBC (Bld) 69.2 % Normal 40.0-72.0 [facility] Comment on above: Performed By: #### L [id number] ####[facility] ([facility] [place] [address] NRBC (PER 100 WBCS) BY AUTOMATED COUNT 0.0 % Normal 0 [facility] Comment on above: Performed By: #### L [id number] ####[facility] ([facility])[address] [place] [address] PLATELETS (10*3/UL) IN BLOOD AUTOMATED COUNT 167 10*3/uL Normal 150-400 [facility] Comment on above: Performed By: #### L [id number] ####[facility] ([facility] [place] [address] RBC (Bld) [#/Vol] 3.86 10*6/uL Low 4.20-5.70 [facility] Comment on above: Performed By: #### L [id number] ####[facility] ([facility])[address] [place] [address] WBC (Bld) [#/Vol] 8.76 10*3/uL Normal 4.00-10.60 [facility] Comment on above: Performed By: #### L [id number] ####[facility] ([facility])[address] [place] [address] 30on 11-21-2023 30 The patient is Moderately Stable - Low risk of patient condition declining or worsening The patient's goals for the shift include rest/comfort The clinical goals for the shift include VSS Problem: Pain - Adult Goal: Verbalizes/displays adequate comfort level or baseline comfort level Outcome: Progressing Problem: Safety - Adult Goal: Free from fall injury Outcome: Progressing Normal [facility] 30 The patient is Moderately Stable [...] and maintained or improved Outcome: Progressing Normal [facility] BASIC METABOLIC PANELon 08-3 Anion gap [Moles/Vol] 9 mmol/L Normal 7- [facility] Comment on above: Performed By: #### L [id number] ####[facility] ([facility])[address] [place] [address] Calcium [Mass/Vol] 8.0 mg/dL Low 8.6-10.3 [facility] Comment on above: Performed By: #### L [id number] ####[facility] ([facility])[address] [place] [address] Chloride [Moles/Vol] 113 mmol/L High 98-107 [facility] Comment on above: Performed By: #### L [id number] ####[facility] ([facility])[address] [place] [address] CO2 [Moles/Vol] 27 mmol/L Normal - [facility] Comment on above: Performed By: #### L [id number] ####[facility] ([facility])[address] [place] [address] Creatinine [Mass/Vol] 1.47 mg/dL High 0.70-1.30 [facility] Comment on above: Performed By: #### L [id number] ####[facility] ([facility])[address] [place] [address] GLOMERULAR FILTRATION RATE ML/MIN/1.73 SQ M.PREDICTED 46.5 mL/min/1.73m*2 Low >60.0 [facility] Comment on above: Result Comment: The [facility]???s estimated glomerular filtration rate (eGFR) will [...] of individuals. Performed By: #### L [id number] ####[facility] ([facility])[address] [place] [address] Glucose [Mass/Vol] 135 mg/dL High 70-100 [facility] Comment on above: Performed By: #### L [id number] ####[facility] ([facility])[address] [place] [address] Potassium [Moles/Vol] 3.3 mmol/L Low 3.5-5.1 [facility] Comment on above: Performed By: #### L [id number] ####[facility] ([facility])[address] [place] [address] Sodium [Moles/Vol] 146 mmol/L High 136-145 [facility] Comment on above: Performed By: #### L [id number] ####[facility] ([facility])[address] [place] [address] Urea nitrogen [Mass/Vol] 35 mg/dL High 7-25 [facility] Comment on above: Performed By: #### L [id number] ####[facility] ([facility])[address] [place] [address] UREA NITROGEN/CREATININ E (MASS RATIO) IN SER/PLAS 23.8 Normal [facility] Comment on above: Performed By: #### L [id number] ####[facility] ([facility] [place] [place] [address] CBCon 11-21-2023 Erythrocyte distribution width (RBC) [Ratio] 15.3 % High 11.5-15.0 [facility] Comment on above: Performed By: #### L [id number] ####[facility] ([facility])[address] [place] [address] ERYTHROCYTE MEAN CORPUSCULAR HEMOGLOBIN CONCENTRATION (G/DL) BY AUTOMATED 32.7 g/dL Normal 32.0-35.0 [facility] Comment on above: Performed By: #### L [id number] ####[facility] ([facility])[address] [place] [address] Hematocrit (Bld) [Volume fraction] 38.5 % Low 39.0-55.0 [facility] Comment on above: Performed By: #### L [id number] ####[facility] ([facility] [place] [place] [address] Hemoglobin (Bld) [Mass/Vol] 12.6 g/dL Low 13.0-17.0 [facility] Comment on above: Performed By: #### L [id number] ####[facility] ([facility])[address] [place] [address] MCH (RBC) [Entitic mass] 32.1 pg Normal 27.0-33.0 [facility] Comment on above: Performed By: #### L [id number] ####[facility] (BEAKER)[address] [place] [address] MCV (RBC) [Entitic vol] 98.2 fL High 82.0-98.0 [facility] Comment on above: Performed By: #### L [id number] ####[facility] (BEAKER)[address] [place] [address] PLATELETS (10*3/UL) IN BLOOD AUTOMATED COUNT 172 10*3/uL Normal 150-400 [facility] Comment on above: Performed By: #### L [id number] ####[facility] (BEAKER)[address] [place] [address] RBC (Bld) [#/Vol] 3.92 10*6/uL Low 4.20-5.70 [facility] Comment on above: Performed By: #### L [id number] ####[facility] ([facility])[address] [place] [address] WBC (Bld) [#/Vol] 9.67 10*3/uL Normal 4.00-10.60 [facility] Comment on above: Performed By: #### L [id number] ####[facility] (BEJONY)[address] [place] [address] 30on 11-20-2023 30 The patient is Moderately Stable - Low risk of patient condition declining or worsening The patient's goals for the shift include restraints off The clinical goals for the shift include stable hemodynamics Over the shift, the patient did not make progress toward the following goals. Normal [facility] 30 Daily Case Managemen t Update [...] OT Six Click Score: 8 PT Recommendations: shelter facility placement OT Recommendations: shelter facility placement New Consults: Ancillary Consults (From admission, onward) Start Ordered 11/19/23 0924 Inpatient consult to Social Work Once Provider: (Not yet assigned) Question Answer Comment Select all services needed for the patient Retirement Facility (30 day convalescent stay) Please indicate [...] OT? Answer: eval and treat 11/19/23 0756 [facility] CONSULTon 11-20-2023 CONSULT -- Attestation signed by Juan Pablo Liz MD at 11/21/2023 12:08 PM As noted. Patient to be staffed in person on 11/20 Psychiatry Consultation Service - New Assessment Patient Name: Nat Moore MRN / CSN: [id number] Date of / Age: 2 1940 / [...] mild cognitive impairment originally presenting to the [facility] Emergency Room on 11/15/2023 for evaluation of recurrent episodes of syncope secondary to spontaneous prolonged sinus pause. The patient was transferred via air ambulance from the [facility]. Psychiatry was consulted for management of agitation secondary to dementia . Emergency Room Course: Imaging/Workup: On arrival to [facility] the patient's blood pressure was 158/72 mmHg, pulse rate 78 bpm, regular, SpO2 100% on room air, respiratory rate 20/min, temperature 97.2. 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 CT of the abdomen with contrast done at [facility] showed nonobstructive bowel gas pattern with [...] would con (more content not included)... Normal [facility] NURSNOTEon 11-20-2023 NURSNOTE Patient Name: Nat [...] voiced no concerns at this time. The screenplay writer urged the primary RN to call the rapid team if any concerns arise overnight. Chevy Hines RN Rapid Response Team Nurse [phone] 11/20/2023 11:34 PM Normal [facility] 30on 11-19-2023 30 Daily Case Managemen t Update Multidisciplinary rounds have been completed. Barriers to Discharge: 11/18- patient here from [facility] for recurrent episodes of syncope secondary to spontaneous prolonged sinus pauses. During his stay in [facility] he suddenly developed bradycardia prolonged sinus [...] Select all services needed for the patient Retirement Facility (30 day convalescent stay) Please indicate [...] Answer: eval and treat 11/19/23 0756 Normal [facility] BASIC METABOLIC PANELon 10-23 Anion gap [Moles/Vol] 11 mmol/L Normal 7-20 [facility] Comment on above: Performed By: #### L [id number] ####[facility] ([facility] [place] [address] Calcium [Mass/Vol] 8.0 mg/dL Low 8.6-10.3 [facility] Comment on above: Performed By: #### L [id number] ####[facility] ([facility] [place] [address] Chloride [Moles/Vol] 112 mmol/L High 98-107 [facility] Comment on above: Performed By: #### L [id number] ####[facility] ([facility] [place] [address] CO2 [Moles/Vol] 26 mmol/L Normal 21-31 [facility] Comment on above: Performed By: #### L [id number] ####[facility] ([facility])[address] [place] [address] Creatinine [Mass/Vol] 1.69 mg/dL High 0.70-1.30 [facility] Comment on above: Performed By: #### L [id number] ####[facility] ([facility])[address] [facility] [place] [address] GLOMERULAR FILTRATION RATE ML/MIN/1.73 SQ M.PREDICTED 39.3 mL/min/1.73m*2 Low >[address]0 [facility] Comment on above: Result Comment: The [facility]???s estimated glomerular filtration rate (eGFR) will [...] of individuals. Performed By: #### L [id number] ####[facility] ([facility])[address] [place] [address] Glucose [Mass/Vol] 122 mg/dL High 70-100 [facility] Comment on above: Performed By: #### L [id number] ####[facility] ([facility])[address] [place] [address] Potassium [Moles/Vol] 3.5 mmol/L Normal 3.5-5.1 [facility] Comment on above: Performed By: #### L [id number] ####[facility] ([facility])[address] [place] [address] Sodium [Moles/Vol] 145 mmol/L Normal 136-145 [facility] Comment on above: Performed By: #### L [id number] ####[facility] ([facility])[address] [place] [address] Urea nitrogen [Mass/Vol] 49 mg/dL High 7-25 [facility] Comment on above: Performed By: #### L [id number] ####[facility] ([facility])[address] [place] [address] UREA NITROGEN/CREATININ E (MASS RATIO) IN SER/PLAS 29.0 Normal [facility] Comment on above: Performed By: #### L [id number] ####[facility] ([facility])[address] [place] [address] CBCon 11-19-2023 Erythrocyte distribution width (RBC) [Ratio] 15.0 % Normal 11.5-15.0 [facility] Comment on above: Performed By: #### L [id number] #### [facility] ([facility]) [address] [place] [address] ERYTHROCYTE MEAN CORPUSCULAR HEMOGLOBIN CONCENTRATION (G/DL) BY AUTOMATED 32.8 g/dL Normal 32.0-35.0 [facility] Comment on above: Performed By: #### L [id number] #### [facility] ([facility]) [address] [place] [address] Hematocrit (Bld) [Volume fraction] 38.7 % Low 39.0-55.0 [facility] Comment on above: Performed By: #### L [id number] #### [facility] ([facility]) [address] [place] [address] Hemoglobin (Bld) [Mass/Vol] 12.7 g/dL Low 13.0-17.0 [facility] Comment on above: Performed By: #### L [id number] #### [facility] ([facility]) [address] [place] [address] MCH (RBC) [Entitic mass] 31.8 pg Normal 27.0-33.0 [facility] Comment on above: Performed By: #### L [id number] #### [facility] ([facility]) [address] [address] MCV (RBC) [Entitic vol] 97.0 fL Normal 82.0-98.0 [facility] Comment on above: Performed By: #### L [id number] #### [facility] ([facility]) [address] [place] [address] PLATELETS (10*3/UL) IN BLOOD AUTOMATED COUNT 148 10*3/uL Low 150-400 [facility] Comment on above: Performed By: #### L [id number] #### [facility] ([facility]) [address] [place] [address] RBC (Bld) [#/Vol] 3.99 10*6/uL Low 4.20-5.70 [facility] Comment on above: Performed By: #### L [id number] #### [facility] ([facility]) [address] [place] [address] WBC (Bld) [#/Vol] 7.82 10*3/uL Normal 4.00-10.60 [facility] Comment on above: Performed By: #### L [id number] #### [facility] ([facility]) [address] [address] Marian 11-17-2023 ANES -- Attestation signed by [...] Information Date: 11/17/23 Procedure: Implant PPM Location: [facility] (Cath) Providers: Nora Rivera MD Clinical information reviewed: Allergies Meds Physical Exam Airway Mallampati: III Cardiovascular Rhythm: regular Rate: normal Dental Pulmonary Breath sounds clear to auscultation Abdominal Abdomen: soft Anesthesia Plan Additional Equipment Requests Normal [facility] BASIC METABOLIC PANELon - Anion gap [Moles/Vol] 11 mmol/L Normal 7-20 [facility] Comment on above: Performed By: #### L [id number] #### [facility] (BEAKER) [address] [place] [address] Calcium [Mass/Vol] 8.0 mg/dL Low 8.6-10.3 [facility] Comment on above: Performed By: #### L [id number] #### [facility] (BEAKER) [address] [place] [address] Chloride [Moles/Vol] 109 mmol/L High 98-107 [facility] Comment on above: Performed By: #### L [id number] #### [facility] ([facility]) [address] [facility] [place] [address] CO2 [Moles/Vol] 25 mmol/L Normal 21-31 [facility] Comment on above: Performed By: #### L [id number] #### [facility] ([facility]) [address] [place] [address] Creatinine [Mass/Vol] 1.42 mg/dL High 0.70-1.30 [facility] Comment on above: Performed By: #### L [id number] #### [facility] ([facility]) [address] [place] [address] GLOMERULAR FILTRATION RATE ML/MIN/1.73 SQ M.PREDICTED 48.4 mL/min/1.73m*2 Low >[address]0 [facility] Comment on above: Result Comment: The [facility]???s estimated glomerular filtration rate (eGFR) will [...] individuals. Performed By: #### L [id number] #### [facility] ([facility]) [address] [place] [address] Glucose [Mass/Vol] 169 mg/dL High 70-100 [facility] Comment on above: Performed By: #### L [id number] #### [facility] ([facility]) [address] [place] [address] Potassium [Moles/Vol] 4.3 mmol/L Normal 3.5-5.1 [facility] Comment on above: Performed By: #### L [id number] #### [facility] ([facility]) [address] [place] [address] Sodium [Moles/Vol] 141 mmol/L Normal 136-145 [facility] Comment on above: Performed By: #### L [id number] #### [facility] ([facility]) [address] [place] [address] Urea nitrogen [Mass/Vol] 33 mg/dL High 7-25 [facility] Comment on above: Performed By: #### L [id number] #### [facility] ([facility]) [address] [place] [address] UREA NITROGEN/CREATININ E (MASS RATIO) IN SER/PLAS 23.2 Normal [facility] Comment on above: Performed By: #### L [id number] #### [facility] ([facility]) [address] [place] [address] CBCon 11-17-2023 Erythrocyte distribution width (RBC) [Ratio] 14.9 % Normal 11.5-15.0 [facility] Comment on above: Performed By: #### L [id number] #### [facility] ([facility]) [address] [facility] [place] [address] ERYTHROCYTE MEAN CORPUSCULAR HEMOGLOBIN CONCENTRATION (G/DL) BY AUTOMATED 32.2 g/dL Normal 32.0-35.0 [facility] Comment on above: Performed By: #### L [id number] #### [facility] ([facility]) [address] [place] [address] Hematocrit (Bld) [Volume fraction] 39.5 % Normal 39.0-55.0 [facility] Comment on above: Performed By: #### L [id number] #### [facility] ([facility]) [address] [place] [address] Hemoglobin (Bld) [Mass/Vol] 12.7 g/dL Low 13.0-17.0 [facility] Comment on above: Performed By: #### L [id number] #### [facility] ([facility]) [address] [place] [address] MCH (RBC) [Entitic mass] 31.8 pg Normal 27.0-33.0 [facility] Comment on above: Performed By: #### L [id number] #### [facility] ([facility]) [address] [place] [address] MCV (RBC) [Entitic vol] 99.0 fL High 82.0-98.0 [facility] Comment on above: Performed By: #### L [id number] #### [facility] ([facility]) [address] [place] [address] PLATELETS (10*3/UL) IN BLOOD AUTOMATED COUNT 157 10*3/uL Normal 150-400 [facility] Comment on above: Performed By: #### L [id number] #### [facility] ([facility]) [address] [place] [address] RBC (Bld) [#/Vol] 3.99 10*6/uL Low 4.20-5.70 [facility] Comment on above: Performed By: #### L [id number] #### [facility] ([facility]) [address] [place] [address] WBC (Bld) [#/Vol] 9.04 10*3/uL Normal 4.00-10.60 [facility] Comment on above: Performed By: #### L [id number] #### [facility] ([facility]) [address] [place] [address] HEMOGLOBIN A1Con 11-17-2023 Glucose [Mass/Vol] 114 mg/dL Normal [facility] Comment on above: Order Comment: NO VA RIANT Performed By: #### L [id number] ####[facility] ([facility])[address] [place] [address] HbA1c (Bld) [Mass fraction] 5.6 % Normal 4.0-6.0 [facility] Comment on above: Order Comment: NO VA RIANT Performed By: #### L [id number] ####[facility] ([facility])[address] [place] [address] HPon 11-17-2023 HP -- Attestation signed by [...] placement of PPM in the AM. Normal [facility] LIPID PANELon 11-17-2023 CHOL/HDL 3.8 mg/dL Normal [facility] Comment on above: Performed By: #### L [id number] ####[facility] ([place])[address] [place] [address] Cholesterol [Mass/Vol] 127 mg/dL Normal 120-200 [facility] Comment on above: Performed By: #### L [id number] ####[facility] [employer])[address] [place] [address] Magnesium [Mass/Vol] 81 mg/dL Normal 40-149 [facility] Comment on above: Result Comment: TRIG LYCERIDE REFERENCE RANGE: 20 YEARS AND OLDER CARDIOVASCULAR RISK LESS THAN 150 mg/dL LOW RISK 150 TO 199 mg/dL BORDERLINE RISK 200 mg/dL AND GREATER HIGH RISK Performed By: #### L [id number] ####[facility] (BEAKER)[address] [place] [address] Magnesium [Mass/Vol] 78 mg/dL Normal 0-160 [facility] Comment on above: Performed By: #### L [id number] ####[facility] ([facility] [place] [place] [address] Magnesium [Mass/Vol] 33 mg/dL Normal 23-92 [facility] Comment on above: Performed By: #### L [id number] ####[facility] ([facility] [place])[address] [place] [address] NON HDL CHOL. (LDL+VLDL) 94 Normal [facility] Comment on above: Performed By: #### L [id number] ####[facility] ([facility] [place])[address] [place] [address] TOTAL VLDL-C 16 mg/dL Normal 0-40 [facility] Comment on above: Performed By: #### L [id number] ####[facility] ([facility] [place])[address] [place] [address] LIPOPROTEIN A (LPA)on 2023 Magnesium [Mass/Vol] 23 mg/dL Normal <=29 [facility] Comment on above: Result Comment: Perf ormed By: [employer] [address] [place] [id number] Crisis Counselor: Rivas Castillo MD, PhD CLIA Number: [id number] Performed By: #### L [id number] #### [facility] ([facility] [place] [address] [place] [address] MAGNESIUMon 11-17-2023 Magnesium [Mass/Vol] 2.0 mg/dL Normal 1.9-2.7 [facility] Comment on above: Performed By: #### L [id number] ####[facility] ([facility] [place])[address] [place] [address] PHOSPHORUSon 11-17-2023 Magnesium [Mass/Vol] 3.1 mg/dL Normal 2.5-5.0 [facility] Comment on above: Performed By: #### L [id number] #### [facility] ([facility]) [address] [place] [address] 30on 11-16-2023 30 The patient is Moderately [...] or at baseline Outcome: Not Progressing Normal [facility] ANESon 11-16-2023 ANES Patient: Nat Moore [...] Equipment Requests Jovita Sanchez MD, MPH, FACC, [facility], [facility] Interventional Cardiology Pager Email: [email or web address] Normal [facility] B-TYPE NATRIURETIC PEPTIDEon 11-16-2023 Natriuretic peptide B (Bld) [Mass/Vol] 103 pg/mL High 0-100 [facility] Comment on above: Performed By: #### L [id number] #### [facility] ([facility]) [address] [place] [address] BASIC METABOLIC PANELon 10-23 Anion gap [Moles/Vol] 10 mmol/L Normal 7-20 [facility] Comment on above: Performed By: #### L [id number] #### [facility] ([facility]) [address] [place] [address] Calcium [Mass/Vol] 8.2 mg/dL Low 8.6-10.3 [facility] Comment on above: Performed By: #### L [id number] #### [facility] ([facility]) [address] [place] [address] Chloride [Moles/Vol] 108 mmol/L High 98-107 [facility] Comment on above: Performed By: #### L [id number] #### [facility] ([facility]) [address] [place] [address] CO2 [Moles/Vol] 27 mmol/L Normal 21-31 [facility] Comment on above: Performed By: #### L [id number] #### [facility] ([facility]) [address] [facility] [place] [address] Creatinine [Mass/Vol] 1.53 mg/dL High 0.70-1.30 [facility] Comment on above: Performed By: #### L [id number] #### [facility] ([facility]) [address] [place] [address] GLOMERULAR FILTRATION RATE ML/MIN/1.73 SQ M.PREDICTED 44.3 mL/min/1.73m*2 Low >[address]0 [facility] Comment on above: Result Comment: The [facility]???s estimated glomerular filtration rate (eGFR) will [...] individuals. Performed By: #### L [id number] #### [facility] ([facility]) [address] [place] [address] Glucose [Mass/Vol] 124 mg/dL High 70-100 [facility] Comment on above: Performed By: #### L [id number] #### [facility] (BEAKER) [address] [place] [address] Potassium [Moles/Vol] 4.3 mmol/L Normal 3.5-5.1 [facility] Comment on above: Performed By: #### L [id number] #### [facility] (BEAKER) [address] [place] [address] Sodium [Moles/Vol] 141 mmol/L Normal 136-145 [facility] Comment on above: Performed By: #### L [id number] #### [facility] (BEAKER) [address] [place] [address] Urea nitrogen [Mass/Vol] 31 mg/dL High 7-25 [facility] Comment on above: Performed By: #### L [id number] #### [facility] ([facility] [place] [address] [place] [address] UREA NITROGEN/CREATININ E (MASS RATIO) IN SER/PLAS 20.3 Normal [facility] Comment on above: Performed By: #### L [id number] #### [facility] (BEAKER) [address] [place] [address] Anion gap [Moles/Vol] 10 mmol/L Normal 7-20 [facility] Comment on above: Performed By: #### L [id number] #### [facility] (BEAKER) [address] [place] [address] Calcium [Mass/Vol] 8.1 mg/dL Low 8.6-10.3 [facility] Comment on above: Performed By: #### L [id number] #### [facility] ([facility]ER) [address] [place] [address] Chloride [Moles/Vol] 108 mmol/L High 98-107 [facility] Comment on above: Performed By: #### L [id number] #### [facility] (BEAKER) [address] [place] [address] CO2 [Moles/Vol] 27 mmol/L Normal 21-31 [facility] Comment on above: Performed By: #### L [id number] #### [facility] ([facility]) [address] [place] [address] Creatinine [Mass/Vol] 1.40 mg/dL High 0.70-1.30 [facility] Comment on above: Performed By: #### L [id number] #### [facility] ([facility]) [address] [place] [address] GLOMERULAR FILTRATION RATE ML/MIN/1.73 SQ M.PREDICTED 49.3 mL/min/1.73m*2 Low >[address]0 [facility] Comment on above: Result Comment: The [facility]???s estimated glomerular filtration rate (eGFR) will [...] individuals. Performed By: #### L [id number] #### [facility] ([facility]) [address] [place] [address] Glucose [Mass/Vol] 136 mg/dL High 70-100 [facility] Comment on above: Performed By: #### L [id number] #### [facility] ([facility]) [address] [place] [address] Potassium [Moles/Vol] 4.3 mmol/L Normal 3.5-5.1 [facility] Comment on above: Performed By: #### L [id number] #### [facility] ([facility] [facility]) [address] [place] [address] Sodium [Moles/Vol] 141 mmol/L Normal 136-145 [facility] Comment on above: Performed By: #### L [id number] #### [facility] ([facility]) [address] [place] [address] Urea nitrogen [Mass/Vol] 27 mg/dL High 7-25 [facility] Comment on above: Performed By: #### L [id number] #### [facility] ([facility] [place]) [address] [place] [address] UREA NITROGEN/CREATININ E (MASS RATIO) IN SER/PLAS 19.3 Normal [facility] Comment on above: Performed By: #### L [id number] #### [facility] ([facility]) [address] [place] [address] CBCon 11-16-2023 Erythrocyte distribution width (RBC) [Ratio] 15.1 % High 11.5-15.0 [facility] Comment on above: Performed By: #### L [id number] #### [facility] ([facility]) [address] [place] [address] ERYTHROCYTE MEAN CORPUSCULAR HEMOGLOBIN CONCENTRATION (G/DL) BY AUTOMATED 32.4 g/dL Normal 32.0-35.0 [facility] Comment on above: Performed By: #### L [id number] #### [facility] ([facility]) [address] [place] [address] Hematocrit (Bld) [Volume fraction] 36.7 % Low 39.0-55.0 [facility] Comment on above: Performed By: #### L [id number] #### [facility] ([facility]) [address] [place] [address] Hemoglobin (Bld) [Mass/Vol] 11.9 g/dL Low 13.0-17.0 [facility] Comment on above: Performed By: #### L [id number] #### [facility] ([facility]) [address] [address] MCH (RBC) [Entitic mass] 32.0 pg Normal 27.0-33.0 [facility] Comment on above: Performed By: #### L [id number] #### [facility] ([facility]) [address] [place] [address] MCV (RBC) [Entitic vol] 98.7 fL High 82.0-98.0 [facility] Comment on above: Performed By: #### L [id number] #### [facility] ([facility]) [address] [place] [address] PLATELETS (10*3/UL) IN BLOOD AUTOMATED COUNT 157 10*3/uL Normal 150-400 [facility] Comment on above: Performed By: #### L [id number] #### [facility] ([facility]) [address] [place] [address] RBC (Bld) [#/Vol] 3.72 10*6/uL Low 4.20-5.70 [facility] Comment on above: Performed By: #### L [id number] #### [facility] ([facility]) [address] [place] [address] WBC (Bld) [#/Vol] 8.83 10*3/uL Normal 4.00-10.60 [facility] Comment on above: Performed By: #### L [id number] #### [facility] ([facility]) [address] [place] [address] on 11-16-2023 H&P reviewed. Apparently this morning, [...] wishes to proceed. Jovita Sanchez MD, MPH, [facility], [facility], [facility] Interventional Cardiology Pager Email: [email or web address] Normal [facility] HP -- Attestation signed by Art [...] which are billed separately. Art Mckoy MD [facility] Pulmonary and Critical Care Medicine Adult ICU History & Physical Patient - Nat Moore Age - 83 y.o. - 1940 [facility] # - [id number] Date of Admission - 11/15/2023 2:42 PM Chief Complaint Syncope History of Present Illness Nat Moore is a an 83-year-old gentleman with PMH significant for type 2 diabetes mellitus, essential hypertension, hyperlipidemia, CKD stage IIIa, bilateral lower extremity edema on diuretic therapy, osteoarthritis, depression and mild cognitive impairment was initially admitted to the hospitalist service from [facility] due to recurrent episodes of syncope secondary [...] his presenting complaints. During his stay in [facility] ED he suddenly developed bradycardia prolonged sinus [...] of the abdomen with contrast done at [facility] ED showed nonobstructive bowel gas pattern with [...] planning on taking the patient to the [facility] tomorrow for possible transvenous pacemaker placement. PMH: [...] sodium (C (more content not included)... Normal [facility] LACTIC ACID WITH 4 HOUR REFL EXon 11-16-2023 LACTATE (MMOL/L) IN SER/PLAS 1.2 mmol/L Normal 0.5-2.2 [facility] Comment on above: Performed By: #### L [id number] #### [facility] ([facility]) [address] [place] [address] MAGNESIUMon 11-16-2023 Magnesium [Mass/Vol] 2.1 mg/dL Normal 1.9-2.7 [facility] Comment on above: Performed By: #### L [id number] #### [facility] ([facility]) [address] [place] [address] Magnesium [Mass/Vol] 1.7 mg/dL Low 1.9-2.7 [facility] Comment on above: Performed By: #### L [id number] #### [facility] ([facility]) [address] [place] [address] PRO-BNPon 11-16-2023 Natriuretic peptide B (Bld) [Mass/Vol] 576 pg/mL High 0-300 [facility] Comment on above: Result Comment: An a ge-independent cutoff point of 300 pg/ml has a 98% negative predictive value excluding acute heart failure. Test Performed by [facility] [address] [place] [address] - Released 11/16/2023 20:27 Performed By: #### L [id number] ####[facility] [id number] [place] [address] TSH3 REFLEX TO FT4on 024 THYROTROPIN (MIU/L) IN SER/PLAS BY DETECTION LIMIT <= 0.05 MIU/L 1.67 mIU/L Normal 0.34-5.60 [facility] Comment on above: Performed By: #### L [id number] #### [facility] ([facility]) [address] [place] [address] 30on 11-15-2023 30 The patient is Moderately [...] and maintained or improved Outcome: Progressing Normal [facility] CBCon 11-15-2023 Erythrocyte distribution width (RBC) [Ratio] 15.2 % High 11.5-15.0 [facility] Comment on above: Performed By: #### L [id number] ####[facility] ([facility] [place])[address] [place] [address] ERYTHROCYTE MEAN CORPUSCULAR HEMOGLOBIN CONCENTRATION (G/DL) BY AUTOMATED 32.8 g/dL Normal 32.0-35.0 [facility] Comment on above: Performed By: #### L [id number] ####[facility] ([facility])[address] [place] [address] Hematocrit (Bld) [Volume fraction] 37.8 % Low 39.0-55.0 [facility] Comment on above: Performed By: #### L [id number] ####[facility] ([facility])[address] [place] [address] Hemoglobin (Bld) [Mass/Vol] 12.4 g/dL Low 13.0-17.0 [facility] Comment on above: Performed By: #### L [id number] ####[facility] ([facility])[address] [place] [address] MCH (RBC) [Entitic mass] 31.9 pg Normal 27.0-33.0 [facility] Comment on above: Performed By: #### L [id number] ####[facility] ([facility])[address] [place] [address] MCV (RBC) [Entitic vol] 97.2 fL Normal 82.0-98.0 [facility] Comment on above: Performed By: #### L [id number] ####[facility] ([facility])[address] [place] [address] PLATELETS (10*3/UL) IN BLOOD AUTOMATED COUNT 172 10*3/uL Normal 150-400 [facility] Comment on above: Performed By: #### L [id number] ####[facility] ([facility])[address] [place] [address] RBC (Bld) [#/Vol] 3.89 10*6/uL Low 4.20-5.70 [facility] Comment on above: Performed By: #### L [id number] ####[facility] ([facility])[address] [place] [address] WBC (Bld) [#/Vol] 8.89 10*3/uL Normal 4.00-10.60 [facility] Comment on above: Performed By: #### L [id number] ####[facility] ([facility])[address] [place] [address] COMPREHENSIVE METABOLIC PANE Dmitri 11-15-2023 Albumin [Mass/Vol] 3.7 g/dL Normal 3.5-5.7 [facility] Comment on above: Performed By: #### L [id number] #### [facility] ([facility]) [address] [place] [address] ALP [Catalytic activity/Vol] 70 U/L Normal 34-104 [facility] Comment on above: Performed By: #### L [id number] #### [facility] ([facility] [place]) [address] [place] [address] ALT [Catalytic activity/Vol] 7 U/L Normal 7-52 [facility] Comment on above: Performed By: #### L [id number] #### [facility] ([facility] [place]) [address] [place] [address] Anion gap [Moles/Vol] 9 mmol/L Normal 7-20 [facility] Comment on above: Performed By: #### L [id number] #### [facility] ([facility]) [address] [place] [address] AST [Catalytic activity/Vol] 11 U/L Low 13-39 [facility] Comment on above: Performed By: #### L [id number] #### [facility] ([facility]) [address] [place] [address] Bilirubin [Mass/Vol] 0.6 mg/dL Normal 0.3-1.0 [facility] Comment on above: Performed By: #### L [id number] #### [facility] ([facility]) [address] [place] [address] Calcium [Mass/Vol] 8.2 mg/dL Low 8.6-10.3 [facility] Comment on above: Performed By: #### L [id number] #### [facility] ([facility]) [address] [place] [address] Chloride [Moles/Vol] 107 mmol/L Normal 98-107 [facility] Comment on above: Performed By: #### L [id number] #### [facility] ([facility]) [address] [place] [address] CO2 [Moles/Vol] 29 mmol/L Normal 21-31 [facility] Comment on above: Performed By: #### L [id number] #### [facility] ([facility]) [address] [place] [address] Creatinine [Mass/Vol] 1.37 mg/dL High 0.70-1.30 [facility] Comment on above: Performed By: #### L [id number] #### [facility] ([facility]) [address] [place] [address] GLOMERULAR FILTRATION RATE ML/MIN/1.73 SQ M.PREDICTED 50.6 mL/min/1.73m*2 Low >[address]0 [facility] Comment on above: Result Comment: The [facility]???s estimated glomerular filtration rate (eGFR) will [...] individuals. Performed By: #### L [id number] #### [facility] ([facility]) [address] [place] [address] Glucose [Mass/Vol] 120 mg/dL High 70-100 [facility] Comment on above: Performed By: #### L [id number] #### [facility] ([facility]) [address] [place] [address] Potassium [Moles/Vol] 4.1 mmol/L Normal 3.5-5.1 [facility] Comment on above: Performed By: #### L [id number] #### [facility] ([facility]) [address] [place] [address] Protein [Mass/Vol] 6.0 g/dL Normal 6.0-8.3 [facility] Comment on above: Performed By: #### L [id number] #### [facility] ([facility]) [address] [place] [address] Sodium [Moles/Vol] 141 mmol/L Normal 136-145 [facility] Comment on above: Performed By: #### L [id number] #### [facility] ([facility]) [address] [place] [address] Urea nitrogen [Mass/Vol] 26 mg/dL High 7-25 [facility] Comment on above: Performed By: #### L [id number] #### [facility] ([facility]) [address] [place] [address] UREA NITROGEN/CREATININ E (MASS RATIO) IN SER/PLAS 19.0 Normal [facility] Comment on above: Performed By: #### L [id number] #### [facility] ([facility]) [address] [place] [address] CONSULTon 11-15-2023 CONSULT Division of Cardiovascular Medicine Interventional Cardiology Consult Chief Complaint: Transfer from [facility] HPI: 83 yo with h/o HTN, CKD, dyslipidemia presented to [facility] with c/o chest and back pain. While being evaluated he had episodes of prolonged sinus pauses (12-18 sec?) with loss of consciousness and vomiting. He was Life flighted to [facility]. On arrival , I evaluated [...] infarctions or CHF. Does not see a immunology specialist. Patient Active Problem List Diagnosis Syncope and [...] plan on (more content not included)... Normal [facility] CT HEAD WO IV CONTRASTon CT [...] GAGANDEEP CLAUDIO MD. 3 Invalid Interpretation Code [facility] HPon 11-15-2023 Division of Cardiovascular Medicine Interventional Cardiology Consult Chief Complaint: Transfer from [facility] HPI: 83 yo with h/o HTN, CKD, dyslipidemia presented to [facility] with c/o chest and back pain. While being evaluated he had episodes of prolonged sinus pauses (12-18 sec?) with loss of consciousness and vomiting. He was Life flighted to [facility]. On arrival , I evaluated [...] infarctions or CHF. Does not see a immunology specialist. Patient Active Problem List Diagnosis Syncope and [...] plan on (more content not included)... Normal [facility] MAGNESIUMon 11-15-2023 Magnesium [Mass/Vol] 1.7 mg/dL Low 1.9-2.7 [facility] Comment on above: Performed By: #### L [id number] #### [facility] ([facility]) [address] [place] [address] NURSNOTEon 11-15-2023 NURSNOTE Coat Tailor reach out to Cardiology (Dr. Figueroa) to notify her of the pt transferring to MICU due to change in condition and code blue being called. She asked if the patient was paced at bedside and nurse replied no but pt was transferred and will be paced in MICU. Normal [facility] NURSNOTE Coat Tailor attempted to reach out to family via home number in chart and it wasn't in service. Charge nurse MIGUEL Lloyd was notified and MICU was notified as well by MIGUEL Lloyd. Normal [facility] NURSNOTE Bedside report given to MIGUEL Ghosh prior to transfer to MICU due to change in condition and code blue being called for asystole lasting 10.19 seconds. Normal [facility] ELIEL Spoke with Dr. Wendy dominguez [...] done and we'll go from there. Normal [facility] TROPONIN Ion 11-15-2023 Troponin I.cardiac [Mass/Vol] 0.01 ng/mL Normal 0.00-0.04 [facility] Comment on above: Performed By: #### L [id number] #### [facility] ([facility]) [address] [place] [address] Urology Office/Clinic Noteon 11-12-2023 Urology Office/Clinic Note [...] call if too cost prohibitive, sent to [facility] Jillian Hutchins -f/up in 3 mos 2. [...] vac (more content not included)... Normal [facility] Comment on above: Result Comment: Elec [...] APRN, [place] [facility] Where: [facility] [address] [place] [address]- You Need to Schedule the Following Appointments [...] Leaking ur (more content not included)... Normal [facility] Patient Letter FTon 2023 Patient Letter [facility] Patient Letter FT October 14, [address] [place] [address] : 1940 Dear Nat, You missed your [...] any future cancellations. Sincerely, [facility] [address] [facility], [place] [address] [facility] Patient Letter FTon 2023 Patient Letter FT May 13, 2023 NAT Tran [facility] [address] [place] [address] : 1940 Dear Nat, You missed your [...] [facility] [address] [place] [address] Normal [facility] BNPon 07-27-2022 Natriuretic peptide B (Bld) [Mass/Vol] 178.0 pg/mL Normal <=1,800.[address] [facility] Comment on above: Performed By: #### C MP, BNP, CMADM #### [facility] [address] [place] [address] Dr. Loyd Parks CARDIAC SPARKLE ADMITon 023 CK [Catalytic activity/Vol] 50 U/L Normal 39-[address] [facility] Comment on above: Performed By: #### C MP, BNP, CMADM #### [facility] [address] [place] [address] Dr. Loyd Parks CK.MB [Mass/Vol] 0.83 ng/mL Normal <=3.60 [facility] Comment on above: Performed By: #### C MP, BNP, CMADM #### [facility] [address] [place] [address] Dr. Loyd Parks HSTROP 6.3 pg/mL Normal 4.0-76.1 [facility] Comment on above: Result Comment: CUT- OFF POINTS HAVE BEEN ESTABLISHED BASED ON THE FOURTH UNIVERSAL DEFINITIONS OF MYOCARDIAL INFARCTION. THE UPPER REFERENCE LIMIT (URL) OF TROPONIN, DEFINED THE 99TH PERCENTILE OF cTnI DISTRIBUTION IN A REFERENCE POPULATION, HAS BEEN CONFIRMED THE DECISION THRESHOLD FOR DC DIAGNOSIS. Performed By: #### C MP, BNP, CMADM #### [facility] [address] [place] [address] Dr. Loyd Parks WM 121 ng/mL Critically high 16-96 [facility] Comment on above: Performed By: #### C MP, BNP, CMADM #### [facility] [address] [place] [address] Dr. Loyd Parks CBC AUTO DIFFon 07-27-2022 BASO # 0.1 103/ul Normal 0.0-0.[address] [facility] Comment on above: Performed By: #### C BC #### [facility] [address] [address] [address] Loyd Parks Basophils/100 WBC (Bld) 0.6 % Normal 0.2-2.[address] [facility] Comment on above: Performed By: #### C BC #### [facility] [address] [address] [address] Loyd Parks EO # 0.5 103/ul Normal 0.0-0.[address] [facility] Comment on above: Performed By: #### C BC #### [facility] [address] [address] [address] Loyd Parks Eosinophils/100 WBC (Bld) 4.8 % Normal 0.9-7.[address] [facility] Comment on above: Performed By: #### C BC #### [facility] [address] [address] [address] Loyd Parks Erythrocyte distribution width (RBC) [Ratio] 13.5 % Normal 11.0-15.[address] [facility] Comment on above: Performed By: #### C BC #### [facility] [address] [address] [address] Loyd Parks Hematocrit (Bld) [Volume fraction] 39.7 % Critically low 42.0-54.[address] [facility] Comment on above: Performed By: #### C BC #### [facility] [address] [address] [address] Loyd Parks Hemoglobin (Bld) [Mass/Vol] 13.1 g/dL Critically low 14.0-18.[address] [facility] Comment on above: Performed By: #### C BC #### [facility] [address] [address] [address] Loyd Parks IG # 0.05 10e3/ul Critically high 0.00-0.[address] [facility] Comment on above: Performed By: #### C BC #### [facility] [address] [place] [address] Dr. Loyd Parks IG % 0.5 % Normal 0.0-0.[address] [facility] Comment on above: Performed By: #### C BC #### [facility] [address] [place] [address] Dr. Loyd Parks LYMPH # 1.4 103/ul Normal 1.2-3.8 [facility] Comment on above: Performed By: #### C BC #### [facility] [address] [place] [address] Dr. Loyd Parks Lymphocytes/100 WBC (Bld) 14.1 % Critically low 20.5-60.0 [facility] Comment on above: Performed By: #### C BC #### [facility] [address] [place] [address] Dr. Loyd Parks MANUAL DIFF REQ NO Normal [facility] Comment on above: Performed By: #### C BC #### [facility] [address] [place] [address] Dr. Loyd Parks MCH (RBC) [Entitic mass] 31.6 pg Normal 25.9-34.[address] [facility] Comment on above: Performed By: #### C BC #### [facility] [address] [place] [address] Dr. Loyd Parks MCHC (RBC) [Mass/Vol] 33.0 g/dL Normal 29.9-35.2 [facility] Comment on above: Performed By: #### C BC #### [facility] [address] [place] [address] Dr. Loyd Parks MCV (RBC) [Entitic vol] 95.7 fL Critically high 80.0-94.0 [facility] Comment on above: Performed By: #### C BC #### [facility] [address] [place] [address] Dr. Loyd Parks MONO # 1.0 103/ul Critically high 0.3-0.8 [facility] Comment on above: Performed By: #### C BC #### [facility] [address] [place] [address] Dr. Loyd Parks Monocytes/100 WBC (Bld) 9.7 % Normal 1.7-12.[address] [facility] Comment on above: Performed By: #### C BC #### [facility] [address] [place] [address] Dr. Loyd Parks NEUT # 7.2 103/ul Critically high 1.4-6.5 [facility] Comment on above: Performed By: #### C BC #### [facility] [address] [place] [address] Dr. Loyd Parks Neutrophils/100 WBC (Bld) 70.3 % Normal 43.0-75.[address] [facility] Comment on above: Performed By: #### C BC #### [facility] [address] [place] [address] Dr. Loyd Parks Platelet mean volume (Bld) [Entitic vol] 10.8 fL Normal 9.5-13.[address] [facility] Comment on above: Performed By: #### C BC #### [facility] [address] [place] [address] Dr. Loyd Parks PLT 199 103/ul Normal 150-[address] [facility] Comment on above: Performed By: #### C BC #### [facility] [address] [place] [address] Dr. Loyd Parks RBC 4.15 106/ul Critically low 4.70-6.10 [facility] Comment on above: Performed By: #### C BC #### [facility] [address] [place] [address] Dr. Loyd Parks WBC 10.2 103/ul Normal 4.0-11.0 [facility] Comment on above: Performed By: #### C BC #### [facility] [address] [place] [address] Dr. Loyd Parks CULTURE BLOODon 07-27-2022 Microscopic examination of blood, culture Culture Observations: NO GROWTH AT 5 DAYS. Normal [facility] Comment on above: Performed By: #### E RUR #### [facility] [address] [place] [address] Dr. Loyd Parks Covid-19 PCR (CVDTB)on SARS-CoV-2 (COVID-19) RNA SAUNDRA+probe Ql (Unsp spec) Not detected Normal NOT DETECTED [facility] Comment on above: Result Comment: This test is not yet approved or cleared by the [place] FDA. When there are no FDA-approved or cleared tests available, and other criteria are met, FDA can make tests available under an emergency access mechanism called an Emergency Use Authorization (EUA). The EUA for this test is supported by the [place] of Health and Human Service's (HHS's) declaration [...] SARS-CoV-2. Performed By: #### E RUR #### [facility] [address] [place] [address] Dr. Loyd Parks LACTATE/LACTIC ACIDon 2022 Lactate [Moles/Vol] 2.2 mmol/L Critically high 0.4-2.[address] [facility] Comment on above: Performed By: #### C MP, BNP, CMADM #### [facility] [address] [place] [address] Dr. Loyd Parks PROF 14(COMP METB)on 023 Albumin [Mass/Vol] 3.3 g/dL Critically low 3.4-5.0 Th [facility] Comment on above: Performed By: #### C MP, BNP, CMADM #### [facility] [address] [place] [address] Dr. Loyd Parks Albumin/Globulin [Mass ratio] 0.9 {ratio} Normal [facility] Comment on above: Performed By: #### C MP, BNP, CMADM #### [facility] [address] [address] [address] Loyd Parks ALP [Catalytic activity/Vol] 91 U/L Normal 46-[address] [facility] Comment on above: Performed By: #### C MP, BNP, CMADM #### [facility] [address] [address] [address] Loyd Parks ALT [Catalytic activity/Vol] 18 U/L Normal 16-[address] [facility] Comment on above: Performed By: #### C MP, BNP, CMADM #### [facility] [address] [address] [address] Loyd Parks Anion gap [Moles/Vol] 12.2 mmol/L Normal [facility] Comment on above: Performed By: #### C MP, BNP, CMADM #### [facility] [address] [place] [address] Dr. Loyd Parks AST [Catalytic activity/Vol] 15 U/L Normal 15-[address] [facility] Comment on above: Performed By: #### C MP, BNP, CMADM #### [facility] [address] [place] [address] Dr. Loyd Parks Bilirubin [Mass/Vol] 0.4 mg/dL Normal 0.2-1.[address] [facility] Comment on above: Performed By: #### C MP, BNP, CMADM #### [facility] [address] [place] [address] Dr. Loyd Parks Calcium [Mass/Vol] 8.7 mg/dL Normal 8.5-10.1 [facility] Comment on above: Performed By: #### C MP, BNP, CMADM #### [facility] [address] [place] [address] Dr. Loyd Parks Chloride [Moles/Vol] 105 mmol/L Normal 98-[address] [facility] Comment on above: Performed By: #### C MP, BNP, CMADM #### [facility] [address] [place] [address] Dr. Loyd Parks CO2 [Moles/Vol] 28.0 mmol/L Normal 21.0-32.0 [facility] Comment on above: Performed By: #### C MP, BNP, CMADM #### [facility] [address] [address] [address] Loyd Parks Creatinine [Mass/Vol] 2.25 mg/dL Critically high 0.70-1.[address] [facility] Comment on above: Performed By: #### C MP, BNP, CMADM #### [facility] [address] [address] [address] Loyd Parks EGFR-AF SLOVAK 34 mL/min/1.73m2 Critically low >=[address] [facility] Comment on above: Performed By: #### C MP, BNP, CMADM #### [facility] [address] [place] [address] Dr. Loyd Parks EGFR-NON AF [place]OVAK 28 mL/min/1.73m2 Critically low >=[address] [facility] Comment on above: Performed By: #### C MP, BNP, CMADM #### [facility] [address] [place] [address] Dr. Loyd Parks Globulin (S) [Mass/Vol] 3.8 g/dL Normal [facility] Comment on above: Performed By: #### C MP, BNP, CMADM #### [facility] [address] [place] [address] Dr. Loyd Parks Glucose [Mass/Vol] 88 mg/dL Normal 74-106 [facility] Comment on above: Performed By: #### C MP, BNP, CMADM #### [facility] [address] [place] [address] Dr. Loyd Parks Potassium [Moles/Vol] 4.2 mmol/L Normal 3.5-5.1 [facility] Comment on above: Performed By: #### C MP, BNP, CMADM #### [facility] [address] [place] [address] Dr. Loyd Parks Protein [Mass/Vol] 7.1 g/dL Normal 6.4-8.2 [facility] Comment on above: Performed By: #### C MP, BNP, CMADM #### [facility] [address] [place] [address] Dr. Loyd Parks Sodium [Moles/Vol] 141 mmol/L Normal 136-145 [facility] Comment on above: Performed By: #### C MP, BNP, CMADM #### [facility] [address] [place] [address] Dr. Loyd Parks Urea nitrogen [Mass/Vol] 36.0 mg/dL Critically high 7.0-18.[address] [facility] Comment on above: Performed By: #### C MP, BNP, CMADM #### [facility] [address] [place] [address] Dr. Loyd Parks Urea nitrogen/Creatinin e [Mass ratio] 16.0 mg/mg Normal [facility] Comment on above: Performed By: #### C MP, BNP, CMADM #### [facility] [address] [place] [address] Dr. Loyd Parks PROTIMEon 07-27-2022 INR Coag (PPP) [Relative time] 0.95 {INR} Normal [facility] Comment on above: Performed By: #### P T, PTT #### [facility] [address] [place] [address] Dr. Loyd Parks INR GUIDELINES SEE BELOW Normal [facility] Comment on above: Result Comment: MARIE RED INR: 2.0 - 3.0 CONDITIONS NOT LISTED BELOW 2.5 - 3.5 FOR PROSTHETIC HEART VALVE REPLACEMENT 2.5 - 3.5 RECURRENT THROMBOSIS Performed By: #### P T, PTT #### [facility] [address] [place] [address] Dr. Loyd Parks PT Coag (PPP) [Time] 10.1 s Normal 9.0-11.6 [facility] Comment on above: Performed By: #### P T, PTT #### [facility] [address] [place] [address] Dr. Loyd Parks PTTon 07-27-2022 aPTT Coag (Bld) [Time] 27.3 s Normal 22.3-36.[address] [facility] Comment on above: Performed By: #### P T, PTT #### [facility] [address] [place] [address] Dr. Loyd Parks SYMPTOMATIC COVID-19 ANTIGEN on 07-27-2022 EUA Statement SEE BELOW Normal [facility] Comment on above: Result Comment: This [...] sooner. Performed By: #### C VDAGS #### [facility] [address] [place] [address] Dr. Loyd Parks SARS-CoV-2 (COVID-19) RNA SAUNDRA+probe Ql (Unsp spec) Negative Normal NEGATIVE [facility] Comment on above: Performed By: #### C OGAGS #### [facility] [address] [place] [address] Dr. Loyd Parks XR CHEST 2 Von [...] ELIUD KAUR Date: 2022-07-26 22:19 Normal [facility] POINT OF CARE GLUCOSEon 03-25 Glucose [Mass/Vol] 102 mg/dL Normal 74-106 [facility] Comment on above: Performed By: #### C MP, BNP, CMADM #### [facility] [address] [place] [address] Dr. Loyd Parks ER URINE PROFILEon 2 Bilirubin Ql (U) Negative Normal NEGATIVE [facility] Comment on above: Performed By: #### E RUR #### [facility] [address] [place] [address] Dr. Loyd Parks Clarity (U) CLEAR Normal CLEAR [facility] Comment on above: Performed By: #### E RUR #### [facility] [address] [place] [address] Dr. Loyd Parks Color (U) LT. YELLOW Normal YELLOW [facility] Comment on above: Performed By: #### E RUR #### [facility] [address] [place] [address] Dr. Loyd CONWAY A micrscopic examination will be performed if indicated. Normal [facility] Comment on above: Performed By: #### E RUR #### [facility] [address] [place] [address] Dr. Loyd Parks Glucose Ql (U) 100 mg/dl Abnormal NEGATIVE [facility] Comment on above: Performed By: #### E RUR #### [facility] [address] [place] [address] Dr. Loyd Parks Hemoglobin Ql (U) Negative Normal NEGATIVE [facility] Comment on above: Performed By: #### E RUR #### [facility] [address] [place] [address] Dr. Loyd Parks Ketones Ql (U) Negative Normal NEGATIVE [facility] Comment on above: Performed By: #### E RUR #### [facility] [address] [place] [address] Dr. Loyd Parks LEUKOCYTES Negative Normal NEGATIVE [facility] Comment on above: Performed By: #### E RUR #### [facility] [address] [place] [address] Dr. Loyd Parks Nitrite Ql (U) Negative Normal NEGATIVE [facility] Comment on above: Performed By: #### E RUR #### [facility] [address] [place] [address] Dr. Loyd Parks pH (U) 5.5 [pH] Normal 5-[address] [facility] Comment on above: Performed By: #### E RUR #### [facility] [address] [place] [address] Dr. Loyd Parks SPEC GRAVITY 1.015 Normal 1.005-<=1.025 [facility] Comment on above: Performed By: #### E RUR #### [facility] [address] [place] [address] Dr. Loyd Parks UA PROTEIN Negative Normal NEGATIVE/ TRACE [facility] Comment on above: Performed By: #### E RUR #### [facility] [address] [place] [address] Dr. Loyd Parks UR MICRO IND NOT INDICATED Normal [facility] Comment on above: Performed By: #### E RUR #### [facility] [address] [place] [address] Dr. Loyd Parks Urobilinogen Qn (U) 0.2 {Malcolm'U}/dL Normal 0.2 - 1.[address] [facility] Comment on above: Performed By: #### E RUR #### [facility] [address] [place] [address] Dr. Loyd Parks GROUP A STREP CULTUREon 02-21 S. pyogenes Ag Ql (Unsp spec) Culture Observations: NEGATIVE FOR GROUP A STREPTOCOCCUS. Normal [facility] Comment on above: Performed By: #### S IGNACIA GRASTCX #### [facility] [address] [place] [address] Dr. Loyd Parks STREPT SCREENon 03-03-2022 STREP SCREEN A Negative Normal NEGATIVE [facility] Comment on above: Performed By: #### S IGNACIA GRASTCX #### [facility] [address] [place] [address] Dr. Loyd Parks Covid-19 PCR (CVDTB)on SARS-CoV-2 (COVID-19) RNA SAUNDRA+probe Ql (Unsp spec) Not detected Normal NOT DETECTED [facility] Comment on above: Result Comment: This test is not yet approved or cleared by the [place] FDA. When there are no FDA-approved or cleared tests available, and other criteria are met, FDA can make tests available under an emergency access mechanism called an Emergency Use Authorization (EUA). The EUA for this test is supported by the [place] of Health and Human Service's (HHS's) declaration [...] By: #### C MP, BNP, CMADM #### [facility] [address] [place] [address] Dr. Loyd Parks POINT OF CARE GLUCOSEon 12-22 Glucose [Mass/Vol] 133 mg/dL Critically high 74-106 [facility] Comment on above: Performed By: #### E RUR #### [facility] [address] [place] [address] Dr. Loyd Parks POINT OF CARE GLUCOSEon Glucose [Mass/Vol] 75 mg/dL Normal 74-106 [facility] Comment on above: Performed By: #### E RUR #### [facility] [address] [place] [address] ABD/PELVIS WO CONon [...] SAURABH SINGH Date: 2021-09-03 08:35 Normal [facility] ER URINE PROFILEon 2 Bilirubin Ql (U) Negative Normal NEGATIVE [facility] Comment on above: Performed By: #### E RUR #### [facility] [address] [place] [address] Dr. Loyd Parks Clarity (U) CLEAR Normal CLEAR [facility] Comment on above: Performed By: #### E RUR #### [facility] [address] [place] [address] Dr. Loyd Parks Color (U) LT. YELLOW Normal YELLOW [facility] Comment on above: Performed By: #### E RUR #### [facility] [address] [place] [address] Dr. Loyd CONWAY A micrscopic examination will be performed if indicated. Normal [facility] Comment on above: Performed By: #### E RUR #### [facility] [address] [place] [address] Dr. Loyd Parks Glucose Ql (U) >1000 Abnormal NEGATIVE [facility] Comment on above: Performed By: #### E RUR #### [facility] [address] [place] [address] Dr. Loyd Parks Hemoglobin Ql (U) Negative Normal NEGATIVE [facility] Comment on above: Performed By: #### E RUR #### [facility] [address] [place] [address] Dr. Loyd Parks Ketones Ql (U) Negative Normal NEGATIVE [facility] Comment on above: Performed By: #### E RUR #### [facility] [address] [place] [address] Dr. Loyd Parks LEUKOCYTES Negative Normal NEGATIVE [facility] Comment on above: Performed By: #### E RUR #### [facility] [address] [place] [address] Dr. Loyd Parks Nitrite Ql (U) Negative Normal NEGATIVE [facility] Comment on above: Performed By: #### E RUR #### [facility] [address] [place] [address] Dr. Loyd Parks pH (U) 6.0 [pH] Normal 5-9 [facility] Comment on above: Performed By: #### E RUR #### [facility] [address] [place] [address] Dr. Loyd Parks SPEC GRAVITY 1.010 Normal 1.005-<=1.025 [facility] Comment on above: Performed By: #### E RUR #### [facility] [address] [address] [address] Loyd Parks UA PROTEIN Negative Normal NEGATIVE/ TRACE [facility] Comment on above: Performed By: #### E RUR #### [facility] [address] [place] [address] Dr. Loyd Parks UR MICRO IND NOT INDICATED Normal [facility] Comment on above: Performed By: #### E RUR #### [facility] [address] [address] [address] Loyd Parks Urobilinogen Qn (U) 0.2 {Malcolm'U}/dL Normal 0.2 - 1.[address] [facility] Comment on above: Performed By: #### E RUR #### [facility] [address] [place] [address] Dr. Loyd Parks ALCOHOLon 07-31-2020 Ethanol [Mass/Vol] mg/dL Normal [facility] Comment on above: Result Comment: FOR MEDICAL USE ONLY. . REF VALUES <10 Performed By: #### A LC ####[facility] [place] [address] CBC AND DIFFERENTIALon 07-31 % AUTOMATED IMMATURE GRAN 0.4 % Normal 0.0 - 0.9 [facility] Comment on above: Result Comment: Rylie ture Granulocyte Count (IG) includes promyelocytes, myelocytes and metamyelocytes but does not include bands. Percent differential counts (%) should be interpreted in the context of the absolute cell counts (cells/L). Performed By: #### C BCDF #### [facility] [address] [place] [address] Basophils (Bld) [#/Vol] 0.05 10*3/uL Normal 0.00 - 0.10 [facility] Comment on above: Performed By: #### C BCDF #### [facility] [address] [place] [address] Basophils/100 WBC (Bld) 0.6 % Normal 0.0 - 2.0 [facility] Comment on above: Performed By: #### C BCDF #### [facility] [address] [place] [address] Eosinophils (Bld) [#/Vol] 0.21 10*3/uL Normal 0.00 - 0.40 [facility] Comment on above: Performed By: #### C BCDF #### [facility] [address] [place] [address] Eosinophils/100 WBC (Bld) 2.4 % Normal 0.0 - 6.0 [facility] Comment on above: Performed By: #### C BCDF #### [facility] [address] [place] [address] Erythrocyte distribution width (RBC) [Ratio] 13.2 % Normal 11.5 - 14.5 [facility] Comment on above: Performed By: #### C BCDF #### [facility] [address] [facility] [place] [address] Hematocrit (Bld) [Volume fraction] 50.0 % Normal 41.0 - 52.0 [facility] Comment on above: Performed By: #### C BCDF #### [facility] [address] [facility] [place] [address] Hemoglobin (Bld) [Mass/Vol] 17.3 g/dL Normal 13.5 - 17.5 [facility] Comment on above: Performed By: #### C BCDF #### [facility] [address] [place] [address] Lymphocytes (Bld) [#/Vol] 1.59 10*3/uL Normal 0.80 - 3.00 [facility] Comment on above: Performed By: #### C BCDF #### [facility] [address] [place] [address] Lymphocytes/100 WBC (Bld) 17.9 % Normal 13.0 - 44.0 [facility] Comment on above: Performed By: #### C BCDF #### [facility] [address] [facility] [place] [address] MCHC (RBC) [Mass/Vol] 34.6 g/dL Normal 32.0 - 36.0 [facility] Comment on above: Performed By: #### C BCDF #### [facility] [address] [place] [address] MCV (RBC) [Entitic vol] 89 fL Normal 80 - 100 [facility] Comment on above: Performed By: #### C BCDF #### [facility] [address] [place] [address] Monocytes (Bld) [#/Vol] 0.82 10*3/uL High 0.05 - 0.80 [facility] Comment on above: Performed By: #### C BCDF #### [facility] [address] [place] [address] Monocytes/100 WBC (Bld) 9.2 % Normal 2.0 - 10.0 [facility] Comment on above: Performed By: #### C BCDF #### [facility] [address] [facility] [place] [address] Neutrophils (Bld) [#/Vol] 6.18 10*3/uL High 1.60 - 5.50 [facility] Comment on above: Performed By: #### C BCDF #### [facility] [id number] [place] [address] [place] [address] Neutrophils/100 WBC (Bld) 69.5 % Normal 40.0 - 80.0 [facility] Comment on above: Performed By: #### C BCDF #### [facility] [id number] [place] [address] [place] [address] Platelets (Bld) [#/Vol] 215 10*3/uL Normal 150 - 450 [facility] Comment on above: Performed By: #### C BCDF #### [facility] [address] [facility] [place] [address] RBC 5.59 x10E12/L Normal 4.50 - 5.90 [facility] Comment on above: Performed By: #### C BCDF #### [facility] [address] [facility] [address] WBC (Bld) [#/Vol] 8.9 10*3/uL Normal 4.4 - 11.3 [facility] Comment on above: Performed By: #### C BCDF #### [facility] [address] [place] [address] CHEST 1 VIEWon 07-31-2020 CHEST 1 VIEW STUDY: Chest Radiograph; 07/30/2020 10:53 PM INDICATION: Shortness of breath. COMPARISON: None available. ACCESSION NUMBER(S): [id number] ORDERING CLINICIAN: ZAID CUELLAR DO TECHNIQUE: Frontal chest was obtained at 2355 hours. FINDINGS: CARDIOMEDIASTINAL SILHOUETTE: Cardiomediastinal silhouette is normal in size and configuration. LUNGS: Lungs are clear. ABDOMEN: No remarkable upper abdominal findings. BONES: No acute osseous changes. IMPRESSION: No acute pulmonary abnormality. Signed by Rodrick Anna MD Electronically signed by: RODRICK ANNA MD Normal [facility] COMPREHENSIVE PANELon 2020 Albumin [Mass/Vol] 3.7 g/dL Normal 3.4 - 5.0 [facility] Comment on above: Performed By: #### C MP ####[facility] [place] [address] ALP [Catalytic activity/Vol] 80 U/L Normal 33 - 136 [facility] Comment on above: Performed By: #### C MP ####[facility] [place] [address] ALT [Catalytic activity/Vol] 12 U/L Normal 10 - 52 [facility] Comment on above: Result Comment: Jade ents treated with Sulfasalazine may generate falsely decreased results for ALT. Performed By: #### C MP ####[facility] [place] [address] Anion gap [Moles/Vol] 13 mmol/L Normal 10 - 20 [facility] Comment on above: Performed By: #### C MP ####[facility] [place] [address] AST [Catalytic activity/Vol] 12 U/L Normal 9 - 39 [facility] Comment on above: Performed By: #### C MP ####[facility] [place] [address] Bilirubin [Mass/Vol] 0.7 mg/dL Normal 0.0 - 1.2 [facility] Comment on above: Performed By: #### C MP ####[facility] [place] [address] Calcium [Mass/Vol] 9.2 mg/dL Normal 8.6 - 10.3 [facility] Comment on above: Performed By: #### C MP ####[facility] [place] [address] Chloride [Moles/Vol] 101 mmol/L Normal 98 - 107 [facility] Comment on above: Performed By: #### C MP ####[facility] [place] [address] Creatinine [Mass/Vol] 1.36 mg/dL High 0.50 - 1.30 [facility] Comment on above: Performed By: #### C MP ####[facility] [place] [address] GFR- AM. 61 mL/min/1.73m2 Normal >60 [facility] Comment on above: Result Comment: CALC ULATIONS OF ESTIMATED GFR ARE PERFORMED USING THE MDRD STUDY EQUATION FOR THE IDMS-TRACEABLE CREATININE METHODS. CLIN CHEM 2007;53:766-72 Performed By: #### C MP ####[facility] [facility] [address] GFR-NON AM. 50 mL/min/1.73m2 Abnormal >60 [facility] Comment on above: Performed By: #### C MP ####[facility] [place] [address] Glucose [Mass/Vol] 390 mg/dL High 74 - 99 [facility] Comment on above: Performed By: #### C MP ####[facility] [place] [address] HCO3 (Bld) [Moles/Vol] 27 mmol/L Normal 21 - 32 [facility] Comment on above: Performed By: #### C MP ####[facility] [place] [address] Potassium [Moles/Vol] 4.1 mmol/L Normal 3.5 - 5.3 [facility] Comment on above: Performed By: #### C MP ####[facility] [place] [address] Protein [Mass/Vol] 6.8 g/dL Normal 6.4 - 8.2 [facility] Comment on above: Performed By: #### C MP ####[facility] [facility] [facility] [place] [address] Sodium [Moles/Vol] 137 mmol/L Normal 136 - 145 [facility] Comment on above: Performed By: #### C MP ####[facility] [place] [address] Urea nitrogen [Mass/Vol] 27 mg/dL High 6 - 23 [facility] Comment on above: Performed By: #### C MP ####[facility] [place] [address] CT HEAD WO CONTRASTon 2020 CT HEAD WO CONTRAST STUDY: CT Head without IV Contrast; 07/30/2020, 11:52 PM. INDICATION: Confusion, disorientation. COMPARISON: None Available. ACCESSION NUMBER(S): [id number] ORDERING CLINICIAN: ZAID CUELLAR DO TECHNIQUE: Noncontrast [...] Electronically signed by: RODRICK ANNA MD Normal [facility] MAGNESIUMon 07-31-2020 Magnesium [Mass/Vol] 2.04 mg/dL Normal 1.60 - 2.40 [facility] Comment on above: Performed By: #### M G #### [facility] [address] [place] [address] PT/INRon 07-31-2020 PT Coag (PPP) [Time] 12.0 s Normal 10.1 - 13.3 [facility] Comment on above: Performed By: #### P TINR #### [facility] [address] [place] [address] PT, INR 1.0 Normal 0.9 - 1.1 [facility] Comment on above: Performed By: #### P TINR #### [facility] [address] [place] [address] Provider Note - ED v2on 07-22 Provider Note - ED v2 Provider Note - ED v2: Chart Review: ED NOTES ED NOTES: History: This is an 80-year-old male presenting from the [facility] for chief complaint of a medical evaluation. Patient left his home in [place] 3 days ago because he got into an argument with his and he has not been back since. He was finally [facility] when family called. [...] From Triage - ED 30-Jul-2020 23:17 Normal [facility] Risk Screen - Adult Emergenc [...] instruction; written material Cultural Considerationsnone Developmental Considerationsnone Mormonism Considerationsnone Learning Assessment (Other Learner): Learning Assessment (Other Learner): Other learner availableno Pressure Injury/TB/Substance: Pressure Injury: Do you have a coughno Substance Use Current or Former Historynever: Cigarette/Tobacco, e-Cigarette/Vaping, Alcohol, Street Drugs Admission Risk Screen: Significant IndicatorsComplete CAGE: CAGE: Is this an injured patient at a Trauma Center ([facility]/[place]): no Electronic Signatures: Elizabeth Ivan) (Signed 30-Jul-2020 23:24) Authored: Preferred Language, Advanced Directives, Family Violence Adult, Learning Assessment (Patient), Learning Assessment (Other Learner), Pressure Injury/TB/Substance, Pressure Injury, CAGE Last Updated: 30-Jul-2020 23:24 by Elizabeth Ivan (RN) Normal [facility] TROPONIN Ion 07-31-2020 Troponin I.cardiac [Mass/Vol] ng/mL Normal 0.00 - 0.03 [facility] Comment on above: Result Comment: [...] is performed using different testing methodology at [facility] than at other [facility]. Direct result comparisons should only be made within the same method. Performed By: #### T ROP2 #### [facility] [address] [place] [address] Triage - EDon 07-31-2020 Triage - ED [...] Arrival: stretcher Mode of Arrival: ambulance Agency: [facility] Agency Name: Monica Accompanied By: dispatch officer Language: Spoken Language Preferred: Bulgarian Reading Language Preferred: Bulgarian CHIEF COMPLAINT NAT MOORE is a Male patient with a chief complaint of altered mental status. Triage Date/Time: 30-Jul-2020 22:50 LAILA: 3 Pain Rating (0-10): 0 = None Vital Signs: Temperature: 96.8F ( 36.0C) taken temporal Blood Pressure: 166/103 Mean: Heart Rate: 94 Respiratory Rate: 18 Pulse Oximetry: 97% on room air, no respiratory support. Weight: 230.3 pounds. Calculated 104.5 kg. (stated) [place] Coma Scale: Best Eye Response: (E4) spontaneous Best Motor Response: (M6) obeys commands Best Verbal Response: (V5) oriented [place] Score: 15 Allergies: yes Patient has homicidal [...] 30-Jul-2020 23:23 by Elizabeth Ivan (MIGUEL) Normal [facility] UA MICROSCOPICon 07-31-2020 RBC 1 /HPF Normal 0-5 [facility] Comment on above: Performed By: #### U AMIC #### [facility] [address] [place] [address] SQUAMOUS EPITH. CELLS <1 Normal [facility] Comment on above: Performed By: #### U AMIC #### [facility] [address] [place] [address] WBC 22 /HPF Abnormal 0-5 [facility] Comment on above: Performed By: #### U AMIC #### [facility] [address] [place] [address] URINALYSISon 07-31-2020 Appearance (U) CLEAR Normal CLEAR [facility] Comment on above: Performed By: #### U A #### [facility] [address] [place] [address] Bilirubin Ql (U) Negative Normal NEGATIVE [facility] Comment on above: Performed By: #### U A #### [facility] [address] [place] [address] Color (U) STRAW Normal STRAW,YELLOW [facility] Comment on above: Performed By: #### U A #### [facility] [address] [place] [address] Glucose Ql (U) >=500(3+) Abnormal NEGATIVE [facility] Comment on above: Performed By: #### U A #### [facility] [id number] [place] [address], [place] [address] Hemoglobin Ql (U) SMALL(1+) Abnormal NEGATIVE [facility] Comment on above: Performed By: #### U A #### [facility] [address] [place] [address] Ketones Ql (U) Negative Normal NEGATIVE [facility] Comment on above: Performed By: #### U A #### [facility] [address] [place] [address] Leukocyte esterase Test strip Ql (U) TRACE Abnormal NEGATIVE [facility] Comment on above: Performed By: #### U A #### [facility] [address] [place] [address] Nitrite Ql (U) Negative Normal NEGATIVE [facility] Comment on above: Performed By: #### U A #### [facility] [address] [place] [address] pH (U) 6.0 [pH] Normal 5.0 - 8.0 [facility] Comment on above: Performed By: #### U A #### [facility] [address] [place] [address] Protein Ql (U) 100(2+) Abnormal NEGATIVE [facility] Comment on above: Performed By: #### U A #### [facility] [address] [facility] [address] Specific gravity (U) [Rel density] 1.025 Normal 1.005 - 1.035 [facility] Comment on above: Performed By: #### U A #### [facility] [address] [address] Urobilinogen (U) [Mass/Vol] mg/dL Normal 0.0 - 1.9 [facility] Comment on above: Performed By: #### U A #### [facility] [address] [place] [address] Vital Signs Date Time Vital Sign Value Performing Clinician Facility 01-08-2024 14: Body height 172.7 cm Darcy Sandoval PIN SETTER Work Phone: [facility] 01-08-2024 14:17040 Body mass index (BMI) [Ratio] 37.56 kg/m2 Darcy Sandoval PIN SETTER Work Phone: [facility] 01-08-2024 14:17040 Body weight 112.04 kg Darcy Sandoval PIN SETTER Work Phone: [facility] 01-08-2024 14:17-040 Diastolic blood pressure 84 mm[Hg] Darcy Sandoval PIN SETTER Work Phone: [facility] 01-08-2024 14:17-040 Heart rate 92 /min Darcy Sandoval PIN SETTER Work Phone: [facility] 01-08-2024 14:17-0400 SaO2% (BldA) [Mass fraction] 98 % Darcy Sandoval PIN SETTER Work Phone: [facility] 01-08-2024 14:17040 Systolic blood pressure 124 mm[Hg] Darcy Sandoval PIN SETTER Work Phone: [facility] 12-25-2023 14:040 Body height 172.7 cm Darcy Sandoval PIN SETTER Work Phone: [facility] 12-25-2023 14:-0400 Body mass index (BMI) [Ratio] 38.32 kg/m2 Darcy Sandoval PIN SETTER Work Phone: [facility] 12-25-2023 14:28-0400 Body weight 114.31 kg Darcy Sandoval PIN SETTER Work Phone: [facility] 12-25-2023 14:28-0400 Diastolic blood pressure 68 mm[Hg] Darcy Campavely PIN SETTER Work Phone: [facility] 12-25-2023 14:28-0400 Heart rate 88 /min Darcy [place] PIN SETTER Work Phone: [facility] 12-25-2023 14:28-0400 SaO2% (BldA) [Mass fraction] 97 % Darcy Lori PIN SETTER Work Phone: [facility] 12-25-2023 14:28-0400 Systolic blood pressure 128 mm[Hg] Darcy Sandoval PIN SETTER Work Phone: [facility] 09-16-2022 14:48-0400 Blood Pressure Location Umer VALENCIA [facility] 09-16-2022 14:48-0400 Diastolic blood pressure 74 mm[Hg] Umer VALENCIA [facility] 09-16-2022 14:48-0400 Heart rate 70 /min Umer VALENCIA [facility] 09-16-2022 14:48-0400 Respiratory rate 16 /min Umer VALENCIA [facility] 09-16-2022 14:48-0400 Systolic blood pressure 130 mm[Hg] Umer VALENCIA [facility] 04-26-2022 11:04-0500 Blood Pressure Location Umer VALENCIA [facility] 04-26-2022 11:04-0500 Diastolic blood pressure 78 mm[Hg] Umer VALENCIA [facility] 04-26-2022 11:04-0500 Heart rate 62 /min Umer VALENCIA [facility] 04-26-2022 11:04-0500 Respiratory rate 16 /min Umer VALENCIA [facility] 04-26-2022 11:04-0500 Systolic blood pressure 134 mm[Hg] Umer VALENCIA [facility] 12-03-2021 13:08-0400 Blood Pressure Location Umer VALENCIA [facility] 12-03-2021 13:08-0400 Diastolic blood pressure 70 mm[Hg] Umer VALENCIA [facility] 12-03-2021 13:08-0400 Heart rate 65 /min Umer VALENCIA [facility] 12-03-2021 13:08-0400 Respiratory rate 16 /min Umer VALENCIA [facility] 12-03-2021 13:08-0400 Systolic blood pressure 109 mm[Hg] Umer VALENCIA [facility] 09-03-2021 13:39-0400 Blood Pressure Location Umer VALENCIA [facility] 09-03-2021 13:39-0400 Diastolic blood pressure 67 mm[Hg] Umer VALENCIA [facility] 09-03-2021 13:39-0400 Heart rate 68 /min Umer VALENCIA [facility] 09-03-2021 13:39-0400 Respiratory rate 16 /min Umer VALENCIA [facility] 09-03-2021 13:39-0400 Systolic blood pressure 102 mm[Hg] Umer VALENCIA [facility] Encounters Encounter Date Encounter Type Care Provider Facility Start: 02-10-2024 ambulatory Marianela X Orzech Facilit y:[facility] Start: 01-08-2024 End: 01-08-2024 ambulatory DARCY SANDOVAL Not Available Start: 01-08-2024 End: 01-08-2024 Bamboo flowsheet Darcy Sandoval PIN SETTER Work Phone: [facility] Start: 01-08-2024 End: 01-08-2024 Bamboo flowsheet Darcy Sandoval PIN SETTER Work Phone: [facility] Start: 01-08-2024 End: 01-08-2024 Office outpatient visit 25 minutes Darcy Sandoval PIN SETTER Work Phone: [facility] Comment on above: Edema, unspecified t ype (Primary Dx); Altered mental status, unspecified altered mental status type Start: 12-25-2023 End: 12-25-2023 Office outpatient visit 25 minutes Daryc Sandoval PIN SETTER Work Phone: [facility] Comment on above: Localized edema (Leslee jazmine Dx); Acute cough Start: 12-25-2023 End: 12-25-2023 ambulatory DARCY SANDOVAL Not Available Start: 12-25-2023 End: 12-25-2023 Bamboo flowsheet Darcy Sandoval PIN SETTER Work Phone: [facility] Start: 12-25-2023 End: 12-25-2023 Bamboo flowsheet Darcy Sandoval PIN SETTER Work Phone: [facility] Start: 12-05-2023 End: 12-05-2023 ambulatory DARCY SANDOVAL [facility] Start: 11-30-2023 End: 11-30-2023 ambulatory RENE ANTHONY [facility] Start: 11-28-2023 End: 11-28-2023 [facility] Start: 11-21-2023 Evaluation and manag ement of inpatient [facility] Start: 11-18-2023 Evaluation and manag ement of inpatient [facility] Start: 11-17-2023 Evaluation and manag ement of inpatient [facility] Start: 11-15-2023 Evaluation and manag ement of inpatient [facility] Start: 11-15-2023 Evaluation and manag ement of inpatient [facility] Start: 11-15-2023 Evaluation and manag ement of inpatient ANU[facility] Start: 11-15-2023 Evaluation and manag ement of inpatient [facility] Start: 11-15-2023 End: 11-15-2023 ambulatory UNKNOWN PROVIDER Facility:[facility] Start: 11-15-2023 End: 11-22-2023 Evaluation and management of inpatient [facility] Start: 11-13-2023 End: 11-13-2023 ambulatory DARCY ASNDOVAL Not Available Start: 11-11-2023 End: 11-11-2023 ambulatory Marianela Ingram Facility:[facility] Start: 11-11-2023 End: 11-11-2023 Patient encounter procedure Marianela Ingram [facility] Start: 10-23-2023 End: 10-23-2023 ambulatory DARCY SANDOVAL Not Available Start: 10-14-2023 End: 10-14-2023 ambulatory Marianela X Orzech Facility:[facility] Start: 10-14-2023 End: 10-14-2023 Patient encounter procedure Marianela Jennifer Dowellzech [facility] Start: 10-09-2023 End: 10-09-2023 ambulatory TOMMY GABRIEL Not Available Start: 08-01-2023 End: 08-01-2023 ambulatory JUAN PABLO ALANIZ Not Available Start: 06-19-2023 End: 06-19-2023 ambulatory JUAN PABLO ALANIZ Not Available Start: 05-13-2023 End: 05-13-2023 ambulatory CAIT DUNHAM Facility:[facility] Start: 05-13-2023 End: 05-13-2023 Patient encounter procedure CAIT DUNHAM [facility] Start: 04-23-2023 End: 04-23-2023 ambulatory JUAN PABLO ALANIZ Not Available Start: 03-26-2023 End: 03-26-2023 ambulatory JUAN PABLO ALANIZ Not Available Start: 02-27-2023 End: 02-27-2023 ambulatory DARCY SANDOVAL Not Available Start: 12-18-2022 End: 12-18-2022 ambulatory CAIT DUNHAM Facility:[facility] Start: 09-16-2022 End: 09-16-2022 Patient encounter procedure Umer VALENCIA [facility] Start: 07-26-2022 End: 07-27-[address] JUAN PABLO ALANIZ Facility:[facility] Start: 06-26-2022 End: 06-27-[address] JUAN PABLO ALANIZ Facility:[facility] Start: 05-23-2022 End: 05-24-[address] JUAN PABLO ALANIZ Facility:[facility] Start: 04-26-2022 End: 04-26-2022 Patient encounter procedure Umer VALENCIA [facility] Start: 04-22-2022 End: 04-23-[address] JUAN PABLO ALANIZ Facility:[facility] Start: 04-16-2022 End: 04-16-[address] JUAN PABLO ALANIZ Facility:[facility] Start: 04-08-2022 End: 04-08-2022 Patient encounter procedure Umer VALENCIA [facility] Start: 04-04-2022 ambulatory SHELLIE ROJAS . Facility:[facility] Start: 03-08-2022 End: 03-08-[address] JUAN PABLO ALANIZ Facility:[facility] Start: 03-04-2022 Encounter for preprocedural cardiovascular examination DR VINH HOLCOMB . [facility] Start: 03-04-2022 Encounter for preprocedural laboratory examination DR VINH HOLCOMB . [facility] Start: 03-03-2022 End: 03-03-[address] JUAN PABLO ALANIZ Facility:[facility] Start: 03-02-2022 Encounter for preprocedural cardiovascular examination DR VINH HOLCOMB . [facility] Start: 02-26-[address] VINH HOLCOMB [...] encounter procedure Umer VALENCIA [facility] Start: 11-29-2021 End: 11-30-2021 ambulatory MANDIE Goodman [facility] Facility:[facility] Start: 11-27-2021 End: 11-27-[address] VINH HOLCOMB . Facility:[facility] Start: 10-02-2021 End: 10-03-[address] VINH HOLCOMB . Facility:[facility] Start: 09-21-2021 End: 09-21-[address] SUJIT GR . Facility:[facility] Start: 09-19-2021 End: 09-20-2021 ambulatory MANDIE Goodman [facility] Facility:[facility] Start: 09-15-2021 End: 09-16-[address] SPARKLE NELSON Facility:[facility] Start: 09-03-2021 End: 09-03-2021 Patient encounter procedure Umer VALENCIA [facility] Start: 09-03-2021 End: 09-03-[address] JUAN [...] EST Procedure Visit [facility] [address] [facility] [address] [place] [address] Tommy Gabriel DPM [address] [facility] [address] [place] [address] [facility] Start: 01-08-2024 End: 01-07-2025 Basic metabolic 1998 panel - Serum or Plasma Basic metabolic panel Lab Routine Edema, unspecified type Expected: 01/08/2024 (Approximate), Expires: 01/07/2025 [facility] Work Phone: Comment on above: Expected: [...] Visit [facility] [address] [facility] [address] [place] [address] Darcy Sandoval NP [address] [place] [address] [facility] Start: 12-25-2023 End: 12-25-2023 Patient encounter procedure 12/25/2023 2:30 PM EDT Office Visit [facility] [address] [place] [address] Darcy Sandoval NP [address] [place] [address] Arrived [facility] Comment on above: Arrived Start: 11-23-2023 Influenza vaccination Influenza Vacc ine (#1) [facility] Start: 08-22-2022 ambulatory Ambulatory Facility:[facility] Start: 08-06-2019 Pneumococcal Vaccine : 65+ Years (2 of 2 - PCV) Pneumococcal Vaccine: 65+ Years (2 of 2 - PCV) [facility] Start: 1948 Glaucoma screening Diabetes: R etinopathy Screening [facility] Immunizations Immunization Date Immunization Notes Care Provider Fa cility 01-13-2023 influenza virus vacc ine, unspecified formulation Marianela Ingram [facility] 01-13-2023 Influenza, High-dose Seasonal, Quadrivalent, Preservative Free Darcy Lori PIN SETTER Work Phone: [facility] 02-22-2022 influenza virus vacc ine, unspecified formulation Umer VALENCIA [facility] 02-22-2022 influenza, high dose seasonal, preservative-free Darcy [place] PIN SETTER Work Phone: [facility] 12-21-2020 SARS-CoV-2 (COVID-19 ) mRNA BNT-162b2 vax Umer VALENCIA [facility] 11-30-2020 SARS-CoV-2 (COVID-19 ) mRNA BNT-162b2 vax Umer VALENCIA [facility] 01-24-2020 influenza virus vacc ine, unspecified formulation Umer VALENCIA [facility] 01-24-2020 influenza, high dose seasonal, preservative-free Darcy [place] PIN SETTER Work Phone: [facility] 03-04-2019 influenza virus vacc ine, unspecified formulation Umer VALENCIA [facility] 03-04-2019 influenza, high dose seasonal, preservative-free Darcy Lori PIN SETTER Work Phone: [facility] 08-05-2018 pneumococcal polysaccharide vaccine, 23 valent Umer VALENCIA [facility] 12-18-2016 influenza virus vacc ine, unspecified formulation Umer VALENCIA [facility] 12-18-2016 influenza, high dose seasonal, preservative-free Darcy [place] PIN SETTER Work Phone: [facility] 12-06-2015 influenza virus vacc ine, unspecified formulation Umer VALENCIA [facility] 12-06-2015 influenza, high dose seasonal, preservative-free Darcy [place] PIN SETTER Work Phone: [facility] 12-21-2014 influenza virus vacc ine, unspecified formulation Umer VALENCIA [facility] 12-21-2014 influenza, high dose seasonal, preservative-free Darcy [place] PIN SETTER Work Phone: [facility] Payers Date Payer Category Payer Medicare [facility] MEDICARE ADVANTAGE [facility] MEDICARE ADVANTAGE [id number] 2021-Present [address] [place] [id number] 2021 Medicare (Managed Care) [facility] ADVANTAGE [id number] 1959 Unknown [id number] 1959 Unknown [id number] 1938 Unknown [id number] 2.16.840.1.826439.3.579.2 .593 1938 Unknown [id number] 2.840.1.554630.3.579.2 .593 1938 Unknown [id number] 2.16.840.1.795873.3.579.2 .593 1938 Unknown [id number] 2.16.840.1.099527.3.579.2 .593 1938 Unknown [id number] 2.16.840.1.470151.3.579.2 .593 1938 Unknown [id number] 2.16.840.1.252054.3.579.2 .593 1938 Unknown [id number] 2.16.840.1.488997.3.579.2 .593 1938 Unknown [id number] 2.16.840.1.600392.3.579.2 .593 1938 Unknown [id number] 2.16840.1.083096.3.579.2 .593 1938 Unknown [id number] 2.16.840.1.790279.3.579.2 .593 1938 Unknown [id number] 2.16840.1.775212.3.579.2 .593 1938 Unknown [id number] 2.16840.1.990614.3.579.2 .593 1938 Unknown [id number] 2.16840.1.906305.3.579.2 .593 1938 Unknown [id number] 2.16.840.1.504748.3.579.2 .593 1938 Unknown [id number] 2.16.840.1.528533.3.579.2 .593 1938 Unknown [id number] 2.16.840.1.099086.3.579.2 .593 1938 Unknown [id number] 2.16.840.1.895813.3.579.2 .593 1938 Unknown [id number] 2.16.840.1.374389.3.579.2 .593 1938 Unknown [id number] 2.16.840.1.136097.3.579.2 .593 1938 Unknown [id number] 2.16.840.1.256344.3.579.2 .593 1938 Unknown [id number] 2.16.840.1.142486.3.579.2 .593 1938 Unknown [id number] 2.16.840.1.761494.3.579.2 .593 1938 Unknown [id number] 2.16.840.1.499364.3.579.2 .593 1938 Unknown [id number] 2.16.840.1.943339.3.579.2 .593 1938 Unknown [id number] 2.16.840.1.695623.3.579.2 .727 1938 Unknown [id number] 2.16.840.1.499373.3.579.2 .727 1938 Unknown [id number] 2.16.840.1.563363.3.579.2 .727 1938 Unknown [id number] 2.16.840.1.288891.3.579.2 .727 1938 Unknown [id number] 2.16.840.1.286351.3.579.2 .727 1938 Unknown [id number] 2.16.840.1.639408.3.579.2 .732 1938 Unknown [id number] 2.16.840.1.634661.3.579.2 .173 1938 Unknown [id number] 2.16.840.1.066195.3.579.2 .1259 1938 Unknown [id number] 2.16.840.1.911418.3.579.2 .1259 1938 Unknown [id number] 2.16.840.1.091719.3.579.2 .1258 1938 Unknown [id number] 2.16.840.1.829253.3.579.2 .9 1938 Unknown [id number] 2.16.840.1.178541.3.579.2 .1258 1938 Unknown [id number] 2.16.840.1.197247.3.579.2 .1258 1938 Unknown [id number] 2.16.840.1.805972.3.579.2 .1258 1938 Unknown [id number] 2.16.840.1.682122.3.579.2 .1258 1938 Unknown [id number] 2.16.840.1.055977.3.579.2 .1258 1938 Unknown [id number] 2.16.840.1.371043.3.579.2 .1259 Social History Date Type Detail Facility Start: 09-03-2021 Tobacco smoking status Ex-smoker (fi nding) [facility] Start: 11-01-2022 End: 12-11-2023 Sex Assigned At Male [facility] [facility] Start: 04-26-2022 End: 11-14-2022 Tobacco smoking status Never smoked tobacco (finding) [facility] Tobacco smoking status Never [facility] Start: 11-14-2022 Tobacco use and exposure Smokeless [...] 11-11-2023 Functional Status N/A [facility] 09-16-2022 Functional Status N/A [facility] 04-26-2022 Functional Status N/A [facility] 12-03-2021 Functional Status N/A [facility] 09-03-2021 Functional Status N/A [facility] Clinical Notes 09-03-2021 to 01-08-2024 Darcy Sandoval, [...] Past Medical History: Diagnosis Date Diabetes mellitus ([facility]) Diverticulosis History of being hospitalized 10/07/2023 Acute Metabolic Encephalopathy Hypertension ([facility]) Lung nodule Memory loss Neuropathy Renal cyst 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 documented in this encounter [facility] 12-25-2023 History of Present illness Narrative [...] follow-ups on file. 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 [...] initially admitted to the hospitalist service from [place] due to recurrent episodes of syncope secondary [...] his presenting complaints. During his stay in [place] ED he suddenly developed bradycardia prolonged sinus pause up to 18 seconds and became unresponsive. Code was activated and at the beginning of CPR he had regained his consciousness. He had another episode of sinus pause of about 12 seconds prior to transfer, however did not lose his consciousness at this time. On arrival to [facility] blood pressure was 158/72 mmHg, pulse rate 78 bpm, regular, SpO2 100% on room air, respiratory rate 20/min, temperature 97.2. 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 CT of the abdomen with contrast done at [place] ED showed nonobstructive bowel gas pattern with [...] significantly. Daily evaluated the patient on 11/21/2023. [place] slip was removed and they deemed patient [...] Center 12/02/2023 2:20 PM Liu Henning MD [facility] Your medication list START taking these medications Instructions Last Dose Given Next Dose Due amLODIPine 10 mg tablet Commonly known as: Norvasc Start taking on: November 23, 2023 Take 1 tablet (10 mg) by mouth in the morning. Do not start bef (more content not included)... [facility] 11-22-2023 Note Physical Therapy Name: Nat Moore Date of : 1940 Today's Date: 11/22/23 Pt is unable to be seen for therapy at this time secondary to pt to discharge @ 2:00 PM today. Check No Charge Time attempted: 1405 [facility] 11-22-2023 Note Pt originally set fo r 9am BLS transport to [facility] but per MD we will push back to 2pm transport due to high blood pressures. UPDATE 1:15PM- Per MD pt can still discharge today. Transport set for 2pm via [facility]. Assembled transfer packet and placed by chart. Sent final AVS and discharge orders via [employer]. Notified RN and pt's is aware of transport time. [facility] 11-21-2023 Note Attestation signed by Juan [...] is for the patient to go to [facility]. Discussed with the family that [...] with Dr. Liz. Melva Recinos MD PGY2 [facility] 11-21-2023 Note Hospital Medicine Daily Progress Note - 11/21/2023 2:13 PM; Room: [address] [place] [address] Admission: 11/15/2023 2:42 PM; Length of stay: 6 days THE HOSPITALIST TEAM PREFERS TO USE [employer] CHAT FOR COMMUNICATION 7AM-7PM. IF I DO NOT RESPOND WITHIN 15 MINUTES, PLEASE PAGE ME/CALL THROUGH THE DIRECTOR OF DATABASE MARKETING. FROM 7PM-7AM, PLEASE PAGE [phone](COVR) Code Status: Full Code Barriers to Discharge: SNF placement Expected Discharge Date: Today Discharge Destination: detention facility Overview Patient is seen for evaluation [...] Acute metabolic encephalopathy Coronary artery disease involving [place] coronary artery of [place] heart with angina pectoris (CMS/HCC) Hypokalemia Hypernatremia Obesity due to excess calories without serious comorbidity Sinus pause Assessment and Plan Episodes of sinus pauses/asystole requiring external pacing maker s/p permanent dual-chamber pacemaker on 11/18/2023 Recurrent syncope Acute encephalopathy Coronary artery disease Chronic kidney disease stage III Essential hypertension Hyperlipidemia Chronic osteoarthritis Obesity Hyponatremia Hypokalemia normocytic anemia Plan Continue inpatient cares Psych following. [place] slip removed. No need for psych admission. [...] CALCIUM mg/dL 8. (more content not included)... [facility] 11-21-2023 Note Physical Therapy Physical Therapy [...] a.m. Upon entry, pt in bed. This NCR OPERATOR introduces herself and intention for session. Per [...] state President. Did state he was at [facility] .) Following Commands: Follows one step [...] 2 is given. Gait belt is donned, COLLATOR HAND is given on the right side and [...] to advance BLEs to EOB but uses NCR OPERATOR's hand with his right hand to assist in raising upper body from bed. Bed Mobility 2 Bed Mobility From 2: Scooting Bed Mobility Type 2: To Bed Mobility to 2: (EOB in sitting) Level of Assistance 2: Minimum assistance Bed Mobility Comments 2: Pt uses NCR OPERATOR's hand with his right hand to assist in scooting hips to EOB Transfers Transfer: Yes Transfer 1 Transfer From 1: Sit Transfer Type 1: To and from Transfer to 1: Stand Transfer Device 1: none (NCR OPERATOR and aide on either side of pt) Transfer Level of Assistance 1: Minimum assistance, x2 Trials/Comments 1: Pt. instructed to (more content not included)... [facility] 11-21-2023 Note Attestation signed by Juan [...] Patient Name: Nat Moore MRN / CSN: [id number] Date of / Age: 2 1940 / [...] mild cognitive impairment originally presenting to the [facility] Emergency Room on 11/15/2023 for evaluation of recurrent episodes of syncope secondary to spontaneous prolonged sinus pause. The patient was transferred via air ambulance from the [facility]. 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 The patient reports being to his , Donna, and having 4 children. He reports he came from [place] where he lives, but was not able to describe why he came to hospital or where he is now. 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 Reported Behavior: Combative and agitated PRN Medications [...] injection PRN 8/ (more content not included)... [facility] 11-20-2023 Note 11/20/23 1730 Referral Data [...] Support Systems Spouse/significant other Type of Residence shelter facility Will patient need Precert for Post Acute needs? Yes Patient's goal for discharge would like the facility in [place] for rehab 1. [facility] 2. [facility] [facility] 3. (if not accepted in [place]) she is ok with [facility]. Does the patient need discharge transport arranged? Yes SW called patient to discuss consult for SNF placement for rehab. Patient is currently confused and not able to answer questions. SW discussed network provider list. would like provider in [place] with [facility] [place] as 1st choice. She would [facility] [facility] as 2nd and she [facility]. Referrals made as requested. Precert will be needed. SW following. [facility] 11-20-2023 Note Attestation signed by William [...] Moore Age - 83 y.o. - 1940 [facility] # - [id number] Date of Admission - 11/15/2023 2:42 PM HPI/Hospital Course Nat Moore is a an 83-year-old gentleman with PMH significant for type 2 diabetes mellitus, essential hypertension, hyperlipidemia, CKD stage IIIa, bilateral lower extremity edema on diuretic therapy, osteoarthritis, depression and mild cognitive impairment was initially admitted to the hospitalist service from [place] due to recurrent episodes of syncope secondary [...] his presenting complaints. During his stay in [place] ED he suddenly developed bradycardia prolonged sinus [...] of the abdomen with contrast done at [place] ED showed nonobstructive bowel gas pattern with [...] no focal deficit (more content not included)... [facility] 11-19-2023 Note Speech Risk Intern ology Speech/Language Pathology Clinical Swallow Assessment Rx: [...] calcifications who presented via air ambulance from [facility] due to recurrent episodes of syncope secondary to spontaneous prolonged sinus pause. He had initially presented for worsening midsternal chest pain lower back pain located in his mid chest aching in nature, 6 out of 10 on intensity scale, nonradiating associated with SOB. During his stay at [place] he developed bradycardia prolonged sinus pause up [...] (in puree) Recommendations Duration of Treatment: 15 [facility] 11-19-2023 Note Attestation signed by William [...] Moore Age - 83 y.o. - 1940 [facility] # - [id number] Date of Admission - 11/15/2023 2:42 PM HPI/Hospital Course Nat Moore is a an 83-year-old gentleman with PMH significant for type 2 diabetes mellitus, essential hypertension, hyperlipidemia, CKD stage IIIa, bilateral lower extremity edema on diuretic therapy, osteoarthritis, depression and mild cognitive impairment was initially admitted to the hospitalist service from [place] due to recurrent episodes of syncope secondary [...] his presenting complaints. During his stay in [place] ED he suddenly developed bradycardia prolonged sinus [...] of the abdomen with contrast done at [place] ED showed nonobstructive bowel gas pattern with [...] Results CBC: Result (more content not included)... [facility] 11-19-2023 Note Attestation signed by Nora [...] calcifications who presented via air ambulance from [facility] due to recurrent episodes of syncope secondary to spontaneous prolonged sinus pause. He had initially presented for worsening midsternal chest pain lower back pain located in his mid chest aching in nature, 6 out of 10 on intensity scale, nonradiating associated with SOB. During his stay at [place] he developed bradycardia prolonged sinus pause up [...] NAD. Resting comfortably. Still in restraints. S/p [employer] DC-PPM yesterday, tolerated well. OBJECTIVE Objective [...] , , Once (more content not included)... [facility] 11-19-2023 Note 11/19/23 1125 Admission Assessment Questions Verify insurance with patient Yes (with family) Do you understand medical disease or what brought you into the hospital? No Who is your current PCP? Jua nPablo Alaniz MD Can I schedule a follow up appointment for you at the time of discharge? Yes Do you understand why you are taking your current medications? No Are you taking your medications as prescribed? Yes Did patient provide teach back? No Pharmacy Bedside Delivery Status Interested Does the patient have a field case manager assigned to them through their insurance? No Living Arrangement (Current/Prior to Hospitalization) Private residence (with ) Does the patient have history of HHC or SNF? No Assistive Device Cane Patient's goal for discharge likely snf Was patient reminded that goal for discharge is 11am? No Does the patient have transportation at discharge? No Type of Residence shelter facility Is PT/OT appropriate? Yes Is PT/OT ordered? Yes Is SW consult appropriate? Yes Is SW consult ordered? Yes Do you understand the benefits of MyChart? No Were you able to send link and activate MyChart? No [facility] 11-19-2023 Note Consult rec'd for SN F. PT/OT recommend SNF. No family at bedside at this time. SW to try again later. [facility] 11-19-2023 Note Physical Therapy Physical Therapy [...] Level of Function Prior Function Level of Garza: Independent with ADLs and functional transfers, Needs [...] patient with difficul (more content not included)... 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, Decreased recall of precautions, Decreased recall of biographical information, Decreased recall of recent events Communication: (labored , dysarthic) General Assessment General Assessment [place] hearing aids not observed but has them per nsg) Hand Dominance: Right Home Living Home Living Type of Home: (patient unable to report consistantly) Prior Level of Function Prior Function Level of Garza: (reports indep and drives) Prior Functional Mobility: [...] until discharge & PRN OT Discharge Recommendations: shelter facility placement OT - Discharge Recommendations Placed: Yes OT Goals Multi-Disciplinary Problems (from Occupational Therapy) Active Problems Problem: Balance Start Date: 11/19/23 Goal Start Date Expected End Date End Date LTG - Patient will maintain stand balance to allow for safe mobility 11/19/23 12/17/23 -- Problem: Bathing Start Date: 11/19/23 Goal Start Date Expected End Date End Date LTG (more content not included)... [facility] 11-18-2023 Note Attestation signed by William [...] Moore Age - 83 y.o. - 1940 [facility] # - [id number] Date of Admission - 11/15/2023 2:42 PM HPI/Hospital Course Nat Moore is a an 83-year-old gentleman with PMH significant for type 2 diabetes mellitus, essential hypertension, hyperlipidemia, CKD stage IIIa, bilateral lower extremity edema on diuretic therapy, osteoarthritis, depression and mild cognitive impairment was initially admitted to the hospitalist service from [place] due to recurrent episodes of syncope secondary [...] his presenting complaints. During his stay in [place] ED he suddenly developed bradycardia prolonged sinus [...] of the abdomen with contrast done at [place] ED showed nonobstructive bowel gas pattern with [...] 11.9* 12.4* HE (more content not included)... [facility] 11-18-2023 Note Attestation signed by Nora [...] calcifications who presented via air ambulance from [facility] due to recurrent episodes of syncope secondary to spontaneous prolonged sinus pause. He had initially presented for worsening midsternal chest pain lower back pain located in his mid chest aching in nature, 6 out of 10 on intensity scale, nonradiating associated with SOB. During his stay at [place] he developed bradycardia prolonged sinus pause up [...] NAD. Resting comfortably. Still in restraints. S/p [employer] DC-PPM this morning, tolerated well. OBJECTIVE [...] PRN, Nils Lam (more content not included)... [facility] 11-18-2023 Note DUAL CHAMBER PACEMAK ER IMPLANT PROCEDURE NOTE DATE OF PROCEDURE: 11/18/23 PERFORMING PHYSICIAN: Dr. Sam Zelaya CONSENT: Patient LOCATION: EP Lab PROCEDURE PERFORMED: 1. Implantation of pacemaker ([employer]) 2. Ultrasound guided venous access INDICATIONS: [...] using modified seldinger technique using a 5 Angolan micro-puncture needle on two occasions and 0.35 [...] for the device above the muscle. 6 [place] Safesheaths were placed over the wire. An active fixation [employer] pacing lead was then delivered through the 6Fsheath to the right ventricle. After confirmation of lead position on orthogonal views (WILKINSON and SERBIAN) to confirm septal position, the screw was [...] was then removed. Then an active fixation [employer] lead was delivered through the 6Fsheath to the right atrial appendage. After confirmation of lead position on orthogonal views (WILKINSON and SERBIAN), the screw was activated. Good sensing parameters, [...] any concerns. Sam Zelaya MD Cardiac Electrophysiology [facility] 11-17-2023 Note Attestation signed by Nora [...] calcifications who presented via air ambulance from [facility] due to recurrent episodes of syncope secondary to spontaneous prolonged sinus pause. He had initially presented for worsening midsternal chest pain lower back pain located in his mid chest aching in nature, 6 out of 10 on intensity scale, nonradiating associated with SOB. During his stay at [place] he developed bradycardia prolonged sinus pause up [...] oral, Daily, [place] (more content not included)... [facility] 11-17-2023 Note Attestation signed by William [...] initially admitted to the hospitalist service from [place] due to recurrent episodes of syncope secondary [...] his presenting complaints. During his stay in [place] ED he suddenly developed bradycardia prolonged sinus [...] of the abdomen with contrast done at [place] ED showed nonobstructive bowel gas pattern with [...] planning on taking the patient to the [facility] tomorrow for possible transvenous pacemaker placement SUBJECTIVE [...] hours) at 11/17/2023 (more content not included)... [facility] 11-16-2023 Note Cardiovascular Labor atory Report [...] left radial artery was obtained. A 6 Angolan glide sheath was inserted without difficulty. Difficulty [...] a mid v (more content not included)... [facility] 11-16-2023 Note Attestation signed by Salena [...] permanent pacemaker implantation tomorrow Salena Alcaraz MD, [facility] Cardiology Progress Note Subjective Subjective: Patient [...] Value Ventricular Rate 85 Atrial Rate 85 AL Interval 266 QRS DURATION 104 QT Interval 390 QTC CALCULATION(BAZETT) 464 P Carpenter 71 R-Carpenter -60 T Wave Carpenter 49 Impression Sinus rhythm with 1st degree A-V block Left axis deviation Inferior infarct (cited on or before 21-JUL-2012) Cannot rule out Anterior infarct (cited on or before 15-NOV-2023) Abnormal ECG When compared with ECG of 15-NOV-2023 19:56, (unconfirmed) No significant change was found Lab Results Component Value Date TROPONINI 0.01 11/15/2023 Transthoracic echo (TTE) complete Result Date: 11/15/2023 1 1 [facility] Heart Station [address] [place] [address] [phone] (fax) Echocardiogram-[facility] Name: NAT MOORE Study Date: 11/15/2023 05:06 PM B/P: 158 mmHg/72 mmHg HR: Date of : 1940 Location: [facility] Height: 65 in. Age: 83 [...] sizeNo significant v (more content not included)... [facility] 11-15-2023 Note CODE BLUE was called on this patient after he sustained a 10 the second sinus pause and then a 7-second sinus pause. Patient with brief LOC. Patient with multiple episodes of nausea and vomiting. MICU fellow at bedside who states he will transfer patient to MICU for transcutaneous pacing. [facility] 11-15-2023 Note Hospital Medicine History and Physical 11/15/2023 5:58 PM THE HOSPITALIST TEAM PREFERS TO USE [employer] CHAT FOR COMMUNICATION 7AM-7PM. IF I DO NOT RESPOND WITHIN 15 MINUTES, PLEASE PAGE ME/CALL THROUGH THE DIRECTOR OF DATABASE MARKETING. FROM 7PM-7AM, PLEASE PAGE [phone](COVR) Chief Complaint No chief complaint on file. History of Present Illness Nat Moore is an 83 y.o. severely obese male with a medical history significant for type 2 diabetes mellitus, essential hypertension, hyperlipidemia, CKD stage IIIa, bilateral lower extremity edema on diuretic therapy, osteoarthritis, coronary calcifications, depression, mild cognitive impairment, who was transferred via air ambulance from the [facility] due to recurrent episodes of syncope secondary to spontaneous prolonged sinus pause. Patient states that he presented to the [place] ED due to worsening midsternal chest pain [...] his presenting complaints. During his stay in [place] ED he suddenly developed bradycardia prolonged sinus [...] of the abdomen with contrast done at [place] ED showed nonobstructive bowel gas pattern with [...] no oral abnorma (more content not included)... [facility] 11-11-2023 Hospital Discharge instructions Patient Education [...] your health care provider. General instructions Take crwu-tmb-jmtnald and prescription medicines only as told by [...] provider. Document Revised: 11/27/2020 Document Reviewed: 11/27/2020 depict Patient Education 2022 Lesson Prep. Follow Up Care 10/14/2023 13:29:56 With:RAUL Ingram APRN, RIANNA Abad, URL Address: When: Unknown Comments:f/up in 3 mos [facility] 11-11-2023 Note Patient Education Obstetrics and Gynecology [...] health care provider. General instructions ? Take ggeq-dsm-ifuweuo and prescription medicines only as told by [...] your health care (more content not included)... [facility] 09-16-2022 Hospital Discharge instructions Patient Education 09/16/2022 [...] your health care provider. General instructions Take hacf-epy-pfbbant and prescription medicines only as told by [...] provider. Document Revised: 11/27/2020 Document Reviewed: 11/27/2020 depict Patient Education 2022 Lesson Prep. Follow Up Care 04/26/2022 11:39:09 With:ERIK MENG, Umer Schultz, URL Address: [facility] [address], [place] [address]- When: Unknown [facility] Jillian 05-23-2022 Note CONSULTATION CONSULTATION DATE: [...] indicated. Patient agrees with this plan. [facility] 04-26-2022 Hospital Discharge instructions Patient Education [...] urethra. Follow these instructions at home: Take kcyz-swj-grrsruh and prescription medicines only as told by [...] 03/10/2006 Document Revised: 02/02/2019 Document Reviewed: 04/14/2017 [employer] Patient Education 2020 Lesson Prep. Follow Up Care 04/08/2022 14:01:00 With:ERIK MENG, Umer Schultz, URL Address: [address] [place] [address] [place] [address]- When: Unknown [facility] 04-08-2022 Hospital Discharge instructions Patient Education 04/08/2022 [...] urethra. Follow these instructions at home: Take notm-ahy-phviwsr and prescription medicines only as told by [...] 03/10/2006 Document Revised: 02/02/2019 Document Reviewed: 04/14/2017 depict Patient Education 2020 Lesson Prep. Follow Up Care 12/03/2021 14:11:02 With:ERIK MENG, mUer Schultz, URL Address: [facility] [address] , [place] [address]- When: Unknown [facility] 01-22-2022 Note CONSULTATION CONSULTATION DATE: [...] proceed. CC: Juan Pablo Alaniz M.D. 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 He does not use heat or ice to his back at this time. Current medications include gabapentin 200 mg t.i.d., nabumetone 750 mg b.i.d., [place] 5/325 t.i.d. Patient does use a walking [...] L3 and L4, L5. A refill for [place] 5/325 t.i.d. will be sent today. He will receive an oral U-Tox in the office today. Supportive measures such as stretching, a menthol heat rub and heat application to his back were discussed. I did recommend a Boost supplement daily. Patient will be followed up in the office post procedure and agrees to move forward. [facility] 12-03-2021 Hospital Discharge instructions Patient Education [...] urethra. Follow these instructions at home: Take fnlf-wex-vizduuk and prescription medicines only as told by [...] 03/10/2006 Document Revised: 02/02/2019 Document Reviewed: 04/14/2017 depict Patient Education 2020 Lesson Prep. Follow Up Care 09/03/2021 14:17:23 With:ERIK MENG, Umer Schultz, URL Address: [facility] [address] [place] [address]- [phone] When:04/04/2022 Comments:PVR [facility] Jillian 10-02-2021 Note CONSULTATION PROCEDURE DATE: [...] he reports mitigation of his pain symptomatology. [facility] Signed and Approved by: DR VINH HOLCOMB . 10/09/2021 09:28:[address] [facility] 10-02-2021 Note CONSULTATION CONSULTATION DATE: 10/02/2021 [...] three times a day. We will re-prescribe [place] 5/325 t.i.d. which he had received from [...] to proceed. CC: Juan Pablo Alaniz M.D. [facility] Signed and Approved by: DR VINH HOLCOMB . 10/09/2021 09:28:[address] [facility] 09-03-2021 Hospital Discharge instructions Patient Education [...] 03/10/2006 Document Revised: 11/27/2018 Document Reviewed: 02/07/2017 depict Patient Education 2020 Lesson Prep. 09/03/2021 13:53:06 Benign Prostatic Hyperplasia Benign Prostatic [...] urethra. Follow these instructions at home: Take vpcb-gur-toxylbg and prescription medicines only as told by [...] 03/10/2006 Document Revised: 02/02/2019 Document Reviewed: 04/14/2017 depict Patient Education 2020 Lesson Prep. Follow Up Care 07/03/2021 15:21:16 With:Umer VALENCIA MD, URL Address: [facility] [address], [place] [address]- [phone] When:Within 3 Month(s) Comments:f/u in 3 months with PVR scan [facility] Evaluation + Plan note Future Appointments Appointment Date:12/03/2021 01:15:00 PM Scheduled Provider:Umer VALENCIA MD Location:[facility] Appointment Type:URO Office Visit [facility] Evaluation + Plan note Future Appointments Appointment Date:04/08/2022 12:45:00 PM Scheduled Provider:Umer VALENCIA MD [facility] App[facility] Type:URO Office Visit [facility] Evaluation + Plan note Future Appointments Appointment Date:04/26/2022 10:15:00 AM Scheduled Provider:Umer VALENCIA MD [facility] Appointment Type:URO Office Visit [facility] Evaluation + Plan note Future Appointments Appointment Date:07/22/2022 08:45:00 AM Scheduled Provider:Umer VALENCIA MD [facility] Appoint[facility] Type:URO Office Visit [facility] Evaluation + Plan note Future Appointments Appointment Date:12/20/2022 08:30:00 AM Scheduled Provider:Umer VALENCIA MD [facility] App[facility] Type:[facility] Future Appointments Appointment Date:11/11/2023 01:00:00 PM Scheduled Provider:RAUL Ingram APRN Marianela X Location:[facility] Appointment Type:URO Office Visit [facility] Evaluation + Plan note Future Appointments Appointment Date:02/10/2024 12:30:00 PM Scheduled Provider:RAUL Ingram APRN Marianela X Location:[facility] Appointment Type:URO Office Visit [facility] Evaluation note Diagnosis Localized edema- Primary Edema Acute cough [facility] Diagnosis Edema, unspecified type- Primary Altered mental status, unspecified altered mental status type documented [facility] this [facility] Narrative No data available for this section [facility] Hospital Discharge instructions No data available for this section [facility] progress note No data available for this section [facility] Summary Purpose Family History No Family History [...] section and content) DATE CREATED AUTHOR [facility]/14/[facility] DATE CREATED AUTHOR AUTHOR'S ORGANIZ ATION 08/02/2022 [facility] DATE CREATED AUTHOR AUTHOR'S ORGANIZ ATION 11/13/2023 [facility] DATE CREATED AUTHOR AUTHOR'S ORGANIZ ATION 11/17/2023 [facility] DATE CREATED AUTHOR AUTHOR'S ORGANIZ ATION 11/24/[address] 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 Specialty Start Date End Date Juan Pablo Alaniz MD [address] [place] [address] PCP - Peg CHURCHILL 03/24/21 Juan Pablo Alaniz MD [address] [place] [address] PCP - General Internal Medicine 07/30/22 [employer] Operator Relationship Specialty Start Date End Date Juan Pablo Alaniz MD [address] [place] [address] PCP - Peg CHURCHILL 03/24/21 Juan Pablo Alaniz MD [address] [place] [address] PCP - General Internal Medicine 07/30/22 [employer]ing Tank Operator Relationship Specialty Start Date End Date Juan Pablo Alaniz MD [address] [place] [address] PCP - Peg CHURCHILL 03/24/21 Juan Pablo Alaniz MD [address] [place] [address] PCP - General Internal Medicine 07/30/22 Reason [...] THE PRIMARY CLINICAL RECORDS. [facility] [employer] [facility]. provides no warranty or guarantee of the accuracy or completeness of information in this document.
[2024-01-22] MEDS: LACTATED RINGER'S SOLUTION 1,000 ML 50 ML IV (20:34)
[2024-01-22] MEDS: QUETIAPINE FUMARATE 25 MG TABLET PO (20:34)
[2024-01-22] MEDS: MAGNESIUM SULFATE IN WATER 2 GM/50 ML PREMIX IV (20:36)
[2024-01-22] MEDS: ATORVASTATIN CALCIUM 40 MG TABLET PO (22:16)
[2024-01-22] MEDS: DONEPEZIL HCL 10 MG TABLET PO (22:16)
[2024-01-22] MEDS: OXYBUTYNIN CHLORIDE 5 MG TAB XL PO (22:16)
[2024-01-22] MEDS: METHOCARBAMOL 500 MG TABLET PO (22:16)
[2024-01-22] MEDS: TRAZODONE HCL 50 MG TABLET 100 MG PO (22:16)
[2024-01-22] MEDS: GABAPENTIN 100 MG CAPSULE 200 MG PO (22:16)
[2024-01-22 22:19] LABS: Glucometer 62 mg/dL (74-106)
[2024-01-23] VITALS (9 sets, daily range): BP systolic 127–139; BP diastolic 72–77; PULSE 76–94; TEMP 36.5–36.7; O2SAT 93–96
[2024-01-23] MEDS: GABAPENTIN 100 MG CAPSULE 200 MG PO (05:41)
[2024-01-23] MEDS: OMEPRAZOLE 40 MG CAPSULE.DR PO (05:41)
[2024-01-23 06:02] LABS: Basophils Absolute Auto 0.1 10^3/uL (0.0-0.1); Basophils Percent Auto 0.5 % (0.2-2.0); Eosinophils Absolute Auto 0.4 10^3/uL (0.0-0.7); Eosinophils Percent Auto 3.4 % (0.9-7.0); Hematocrit 34.5 % (42.0-54.0); Immature Granulocytes Abs Auto 0.02 10^3/uL (0.00-0.03); Immature Granulocytes Pct Auto 0.2 % (0.0-0.5); Lymphocytes Absolute Auto 1.7 10^3/uL (1.2-3.8); Lymphocytes Percent Auto 16.3 % (20.5-60.0); Mean Corpuscular HGB Conc 31.9 g/dL (29.9-35.2); Mean Corpuscular Hemoglobin 31.3 pg (25.9-34.0); Mean Platelet Volume 11.6 fL (9.5-13.5); Monocytes Absolute Auto 0.8 10^3/uL (0.3-0.8); Monocytes Percent Auto 7.9 % (1.7-12.0); Neutrophils Absolute Auto 7.6 10^3/uL (1.4-6.5); Neutrophils Percent Auto 71.7 % (43.0-75.0); Platelet Count 141 10^3/uL (150-450); Red Blood Count 3.52 10^6/uL (4.70-6.10); Red Cell Distribution Width 14.1 % (11.0-15.0); White Blood Count 10.5 10^3/uL (4.0-11.0)
[2024-01-23 06:36] LABS: Alanine Aminotransferase 13 U/L (16-63); Albumin Globulin Ratio 0.9; Alkaline Phosphatase 87 U/L (46-116); Anion Gap 13.2; Aspartate Amino Transferase 15 U/L (15-37); BUN Creatinine Ratio 15.9; Bilirubin Total 0.7 mg/dL (0.2-1.0); Calcium 8.7 mg/dL (8.5-10.1); Carbon Dioxide 28.9 mmol/L (21.0-32.0); Chloride 110 mmol/L (98-107); Estimated GFR (African America 39 (>=60 mL/min/1.73m^2); Estimated GFR (Non-African Ame 32 (>=60 mL/min/1.73m^2); Globulin 3.5 g/dL; Glucose 84 mg/dL (74-106); Potassium 4.1 mmol/L (3.5-5.1); Sodium 148 mmol/L (136-145); Thyroid Stimulating Hormone 0.861 uIU/mL (0.358-3.740); Total Protein 6.5 g/dL (6.4-8.2)
--- NOTE | 2024-01-23 08:08 | PM.HP ---
HPI H&P: HPI History of Present Illness Chief complaint: UNRESPONSIVE SYNCOPE HYPOYENSION DEHYDRATION Narrative: Patient is an 83 y.o. white male with past medical history of pacemaker, Dementia, Chronic neck pain, NIDM type 2, GERD, HLD, GOUT, hypertension who presents to the emergency department lasts night for the evaluation of an unresponsive episode in his home. EMS reports that the patient's found him sitting in a chair unresponsive, she was not sure if he was breathing so she called 911. Patient was breathing and arousable to painful stimuli on police arrival, awake and alert by the time EMS arrived. He did not require any CPR or Narcan. Patient was recently seen in October and found to have sick sinus syndrome with a syncopal episode and was sent to tertiary care for pacemaker placement. It appears he has been doing well since then. It is unknown if he truly was unresponsive or just sleeping heavily. He had some hypotension on presentation and responded well to IVF. He does take lasix diuretic. CBC, CMP was unremarkable with exception to GILBERTO with Cr. 2.31 and lactate 3.5 which also responded well to IVF. Cr this morning is 2.01 Lactate normal at 1.2. BP 139/77. Patient had normal UA, normal electrolytes. Patient was admitted to telemetry/observation for his syncopal event to the hospitalist service for further plan of care. Patient has gotten aggressive overnight and is refusing his ECHO this morning and demanding to go home. When I went in to evaluate patient is was pleasant once he was told he was going home. Opioid HPI Opioid Management Most Recent Pain and Opioid Data: Last Pain Scale 0 10/07/23 08:14 10/07/23 Last Pain Assessment 01/23/24 12:17 Last ORT Total Score 0 01/22/24 18:49 01/22/24 Last ORT Risk Category Low Risk 01/22/24 18:49 01/22/24 Ur Phencyclidine Scrn Negative (NEGATIVE) 07/26/23 08:10 07/26/23 Review of Systems ROS Status of ROS unobtainable due to medical condition [facility] Medical History (Updated 01/22/24 @ 18:41 by Kalli Middleton) History of pacemaker ?Z95.0 - Presence of cardiac pacemaker (ICD-10) Vomiting ?R11.10 - Vomiting, unspecified (ICD-10) Acute metabolic encephalopathy ?G93.41 - Metabolic encephalopathy (ICD-10) 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 (ICD-10) Low back pain ?M54.50 - Low back pain, unspecified (ICD-10) Dementia ?F03.90 - Unspecified dementia, unspecified severity, without behavioral disturbance, psychotic disturbance, mood disturbance, and anxiety (ICD-10) Depression ?F32.A - Depression, unspecified (ICD-10) Hyperuricemia ?E79.0 - Hyperuricemia without signs of inflammatory arthritis and tophaceous disease (ICD-10) HLD (hyperlipidemia) ?E78.5 - Hyperlipidemia, unspecified (ICD-10) Type 2 diabetes mellitus ?E11.9 - Type 2 diabetes mellitus without complications (ICD-10) HTN (hypertension) ?I10 - Essential (primary) hypertension (ICD-10) Surgical History Pacemaker ?Z95.0 - Presence of cardiac pacemaker (ICD-10) Social History (Updated 01/22/24 @ 18:51 by Kalli Middleton) Within the past year, how often did you have a drink containing alcohol: never Within the past year, how many standard drinks containing alcohol did you have on a typical day: 1 or 2 Within the past year, how often did you have six or more drinks on one occasion: never Total score: 0 Score interpretation: A score less than 4 is consistent with normal alcohol consumption. Smoking status: Never smoker Non-prescribed substance use: denies use Highest level of school completed/degree received: high school graduate Are you now , , , , never or living with a partner: Little interest or pleasure in doing things: not at all Feeling down, depressed, or hopeless: not at all Feel stressed/tense/nervous/anxious/difficulty sleeping: not at all Meds Home Medications and Allergies Home Medications ?Medication ?Instructions ?Recorded ?Confirmed ?Type allopurinol 300 mg tablet 300 mg PO DAILY 07/26/23 01/22/24 History docusate sodium 100 mg capsule 100 mg PO DAILY PRN constipation 07/26/23 01/22/24 History donepezil 10 mg tablet 10 mg PO BEDTIME 07/26/23 01/22/24 History fluoxetine 20 mg capsule 20 mg PO DAILY 07/26/23 01/22/24 History gabapentin 100 mg capsule 200 mg PO TID 07/26/23 01/22/24 History glipizide 10 mg tablet 10 mg PO BID 07/26/23 01/22/24 History meloxicam 15 mg tablet 15 mg PO BEDTIME 07/26/23 01/22/24 History methocarbamol 500 mg tablet 500 mg PO BEDTIME 07/26/23 01/22/24 History omeprazole 40 mg capsule,delayed 40 mg PO DAILY 07/26/23 01/22/24 History release tamsulosin 0.4 mg capsule 0.4 mg PO DAILY 07/26/23 01/22/24 History candesartan 32 mg tablet (Atacand) 32 mg PO DAILY #30 tabs 10/07/23 01/22/24 Rx furosemide 40 mg tablet 40 mg PO DAILY 11/15/23 01/22/24 History potassium chloride 20 mEq 20 meq PO DAILY 11/15/23 01/22/24 History tablet,extended release(part/cryst) trospium 60 mg capsule,extended 60 mg PO DAILY 11/15/23 01/22/24 History release 24 hr amlodipine 5 mg tablet 5 mg PO .QD 01/22/24 01/22/24 History aspirin 81 mg chewable tablet 1 tab PO .QD 01/22/24 01/22/24 History atorvastatin 40 mg tablet 40 mg PO .QHS 01/22/24 01/22/24 History fluoxetine 10 mg capsule 10 mg PO DAILY 01/22/24 01/22/24 History oxybutynin chloride 5 mg 5 mg PO .QHS 01/22/24 01/22/24 History tablet,extended release 24 hr quetiapine 25 mg tablet 25 mg PO BID 01/22/24 01/22/24 History trazodone 100 mg tablet 100 mg PO .QHS 01/22/24 01/22/24 History Allergies Allergy/AdvReac Type Severity Reaction Status Date / Time Penicillins Allergy Intermediate Unknown Verified 11/15/23 09:03 Exam Narrative Exam Narrative: General: Patient is alert, and oriented to person, not place and time Skin: no visible rashes, or ulcers Head: atraumatic, acephalic Eyes: PERRLA, no nystagmus present, conjunctiva clear, no scleral icterus Ears: diminished gross auditory acuity Nose: symmetric, no discharge, no maxillary or frontal sinus tenderness Mouth/Throat: no erythema, exudate, or tonsillar enlargement, normal dentition Neck: no masses palpated Heart: Normal rate and rhythm, no murmurs/rubs/gallops Lungs: no audible wheezes, crackles and normal breath sounds all lung german Abdomen: Normal audible bowel sounds, no distension, No palpable masses, no organomegaly, no rebound/guarding/ or rigidity Musculoskeletal: no swelling bilateral lower extremities Neuro: CN II-X grossly intact Constitutional Vital Signs, click to edit/add: Last Vital Signs Temp 97.7 F 01/23/24 04:51 Pulse 79 01/23/24 06:00 Resp 18 01/23/24 04:51 BP 139/77 01/23/24 04:51 Pulse Ox 93 L 01/23/24 04:51 O2 Del Method Room Air 01/23/24 04:51 Results Labs Labs: Short CBC 01/22/24 01/23/24 Range/Units 14:57 05:25 WBC 9.3 10.5 (4.0-11.0) 10^3/uL Hgb 11.0 L 11.0 L (14.0-18.0) g/dL Hct 33.6 L 34.5 L (42.0-54.0) % Plt Count 145 L 141 L (150-450) 10^3/uL BMP 01/22/24 01/23/24 14:57 05:25 Sodium 147 H 148 H Potassium 3.8 4.1 Chloride 109 H 110 H Carbon Dioxide 26.5 28.9 BUN 34.0 H 32.0 H Creatinine 2.31 H 2.01 H Glucose 116 H 84 Calcium 8.9 8.7 Liver Function 01/22/24 01/23/24 Range/Units 14:57 05:25 Total Bilirubin 0.6 0.7 (0.2-1.0) mg/dL AST 14 L 15 (15-37) U/L ALT 13 L 13 L (16-63) U/L Alkaline Phosphatase 82 87 (46-116) U/L Albumin 3.0 L 3.0 L (3.4-5.0) g/dL Urine 01/22/24 Range/Units 16:46 Urine Color Lt. yellow (YELLOW) Urine Clarity Clear (CLEAR) Urine pH 5.5 (5.0-9.0) Ur Specific [place] 1.010 (1.005-1.025) Urine Protein Negative (NEG/TRACE) mg/dL Urine Glucose (UA) Negative (NEGATIVE) mg/dL Assessment and Plan Assessment and Plan (1) Syncope: Assessment and Plan: Labs overall look good this morning, kidney function is improving, normal electrolytes and thyroid, Trop's and ProBNP in normal range. Vitals are stable. There were no reported overnight events on Telemetry. Patient had Carotid ultrasounds dopplers that were negative for stenosis. CT head and neck were negative for any acute findings. I think this was from overdiuresis that lead to dehydration. Echo today and will discharge home with close Cardiology follow up. Chest X-ray shows mild cardiomegaly with no acute process. Qualifiers: Syncope type: unspecified Qualified Code(s): R55 - Syncope and collapse (2) Acute dehydration: Assessment and Plan: continue gentle IVF with LR @50, patient with history of CHF. monitor for signs of fluid overload (3) History of pacemaker: Assessment and Plan: monitor on telemetry. (4) Dementia: Assessment and Plan: Patient at baseline per notes and family is not oriented to place or time. continue home medications. Qualifiers: Alzheimer's disease onset: late onset Dementia behavioral or psychological symptom: with mood disturbance Dementia severity: mild Dementia type: Alzheimer's Qualified Code(s): G30.1 - Alzheimer's disease with late onset; F02.A3 - Dementia in other diseases classified elsewhere, mild, with mood disturbance (5) Depression: Assessment and Plan: continue fluoxetine Qualifiers: Active/Remission status: currently active Depression Type: major depressive disorder Major depression episode severity: mild Major depression recurrence: recurrent Qualified Code(s): 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, recurrent, mild (6) Hyperuricemia: Assessment and Plan: continue allopurinol (7) HLD (hyperlipidemia): Assessment and Plan: continue atorvastatin and aspirin Qualifiers: Hyperlipidemia type: unspecified Qualified Code(s): E78.5 - Hyperlipidemia, unspecified (8) Type 2 diabetes mellitus: Assessment and Plan: hold glipizide, SSI as needed monitor FSBS Qualifiers: Diabetes mellitus complication status: without complication Diabetes mellitus custodial insulin use: with custodial use Qualified Code(s): E11.9 - Type 2 diabetes mellitus without complications; 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 Urinary Catheter Management Urinary Catheter Management Straight: Cath placed during this visit: yes Urethral indwelling: No Insertion date: 01/22/24 Insertion time: 16:56 Urethral: Cath placed during this visit: yes Urethral indwelling: No Insertion date: 01/23/24 Insertion time: 04:45
[2024-01-23] MEDS: ASPIRIN 81 MG TAB.CHEW PO (08:32)
[2024-01-23] MEDS: FLUOXETINE HCL 20 MG CAPSULE PO (08:32)
[2024-01-23] MEDS: FUROSEMIDE 40 MG TABLET PO (08:32)
[2024-01-23] MEDS: FLUOXETINE HCL 10 MG CAPSULE PO (08:32)
[2024-01-23] MEDS: AMLODIPINE BESYLATE 5 MG TABLET PO (08:32)
[2024-01-23] MEDS: ALLOPURINOL 300 MG TABLET PO (08:32)
[2024-01-23] MEDS: SOLIFENACIN SUCCINATE 10 MG TABLET PO (08:32)
[2024-01-23] MEDS: POTASSIUM CHLORIDE 10 MEQ ER TABLET 20 MEQ PO (08:33)
[2024-01-23] MEDS: TAMSULOSIN HCL 0.4 MG CAPSULE PO (08:33)
[2024-01-23] MEDS: QUETIAPINE FUMARATE 25 MG TABLET PO (08:33)
[2024-01-23] MEDS: LOSARTAN POTASSIUM 50 MG TABLET 100 MG PO (08:33)
--- NOTE | 2024-01-23 09:46 | SWNOTE1 ---
SW had consult that pt's wanted to speak with pt in regards to his mental health and aggression. SW called pt's Dena, had to leave message, no answer.
--- NOTE | 2024-01-23 11:21 | SWNOTE1 ---
NATALYA called pt's , Dena. Dena answered the phone this time. NAATLYA did advise Dena that pt will be discharged today as he is medically stable at this time. NATALYA spoke with her about recommendations of Home health or SNF. NATALYA explained that it may be hard to get pt into SNF for rehab due to his behaviors. NATALYA then spoke to her about the possibility of chcf placement at jail or possibly memory unit. NATALYA explained that it is out of pocket cost or possibly medicaid but not all facilities take medicaid. She voiced she can't do out of pocket and she does not want him at a jail. At this time pt's is refusing jail placement for rehab or ocean transportation intermediary. She would like pt to come home with home health. NATALYA did speak with her about pt's aggression and she wants information for them to go to counseling. NATALYA provided her with names and phone numbers for counseling in [place]. NATALYA asked about transportation home. She voiced sometimes her daughter can transport, but her foot is bothering her. NATALYA advised pt that someone will have to be home when pt comes home. She voiced she will be home, just let her know time. Pt has a ramp to get in to the home. SW to call transport. Referral sent to [facility] . Referral included face sheet, ED note, , and PTnotes.
--- NOTE | 2024-01-23 11:31 | CM.NOTE ---
Rounds made with Dr. Sommers. Plan for home today with Home Health.
--- NOTE | 2024-01-23 11:51 | SWNOTE1 ---
SW called [facility] and they voiced they have no transport available. SW called [facility] and they can be here at 3:30. SW set up [facility] transport to home for 3:30. SW notified nurse. Nurse and SW then received a call from pt's and pt's daughter will transport home. She will be here in an hour or 2. SW will cancel [facility] once daughter arrives to transport.
--- NOTE | 2024-01-23 12:03 | SWNOTE1 ---
[facility] has accepted.
--- NOTE | 2024-01-23 12:04 | SWNOTE1 ---
NATALYA faxed over tx med rec and CRF to [address], will send H&P once completed.
--- NOTE | 2024-01-23 12:08 | SWNOTE1 ---
Medicare Outpatient Observation Notice reviewed and discussed with patient's , Dena, via phone. Dena verbalized understanding and NATALYA signed the form that it was reviewed. Original placed in pt's room and copy placed on chart.
[2024-01-23 12:18] LABS: Glucometer 163 mg/dL (74-106)
--- NOTE | 2024-01-23 12:48 | P.DS_ITS ---
DS: Providers Provider Date of admission: 01/22/24 18:18 Primary care physician: JASON CRUZ Attending physician on admission: Yadira Sommers Consults: 01/22/24 17:08 Occupational Therapy Eval and Treat Routine Reason for consultation: syncope and weakness Has provider been notified: No Physical Therapy Eval and Treat Routine Reason for consultation: syncope and weakness Has provider been notified: No 01/23/24 Consult to Compensation/Benefits Specialist Routine Reason for consult:: Other Mental Health Other reason:: Pt's Donna would like to speak with SW r/t pt's MH/aggression Discharging clinician: Yadira Sommers DS: Diagnosis Discharge Diagnosis (1) Syncope: Qualifiers: Syncope type: unspecified Qualified Code(s): R55 - Syncope and collapse (2) Acute dehydration: (3) History of pacemaker: (4) Dementia: Qualifiers: Dementia type: Alzheimer's Alzheimer's disease onset: late onset Dementia severity: mild Dementia behavioral or psychological symptom: with mood disturbance Qualified Code(s): G30.1 - Alzheimer's disease with late onset; F02.A3 - Dementia in other diseases classified elsewhere, mild, with mood disturbance (5) Depression: Qualifiers: Depression Type: major depressive disorder Major depression recurrence: recurrent Active/Remission status: currently active Major depression episode severity: mild Qualified Code(s): 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, recurrent, mild (6) Hyperuricemia: (7) HLD (hyperlipidemia): Qualifiers: Hyperlipidemia type: unspecified Qualified Code(s): E78.5 - Hyperlipidemia, unspecified (8) Type 2 diabetes mellitus: Qualifiers: Diabetes mellitus prison insulin use: with continuous churn buttermaker use Diabetes mellitus complication status: without complication Qualified Code(s): E11.9 - Type 2 diabetes mellitus without complications; 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 Status at Discharge Functional status at discharge: independent ambulation Overall status at discharge: patient is back to baseline Time Spent with Patient Time attestation: Total time spent providing and/or coordinating discharge services: Time spent: greater than 30 minutes Exam Narrative Exam Narrative: no changes to exam from admission H&P dated 01/23/24 Constitutional Vital Signs, click to edit/add: Last Vital Signs Temp 98.0 F 01/23/24 08:37 Pulse 76 01/23/24 11:59 Resp 16 01/23/24 08:37 BP 127/72 01/23/24 08:37 Pulse Ox 96 01/23/24 08:37 O2 Del Method Room Air 01/23/24 08:37 DS: Data Data Completed and Pending Labs on day of discharge: Labs from last 24 hours 01/23/24 01/23/24 01/22/24 12:17 05:25 22:18 WBC 10.5 RBC 3.52 L Hgb 11.0 L Hct 34.5 L MCV 98.0 H MCH 31.3 MCHC 31.9 RDW 14.1 Plt Count 141 L MPV 11.6 Neut % (Auto) 71.7 Lymph % (Auto) 16.3 L [place] % (Auto) 7.9 Eos % (Auto) 3.4 Baso % (Auto) 0.5 Neut # (Auto) 7.6 H Lymph # (Auto) 1.7 [place] # (Auto) 0.8 Eos # (Auto) 0.4 Baso # (Auto) 0.1 Abs Immat Gran (auto) 0.02 Imm/Tot Granulo (auto) 0.2 PT INR Sodium 148 H Potassium 4.1 Chloride 110 H Carbon Dioxide 28.9 Anion Gap 13.2 BUN 32.0 H Creatinine 2.01 H Est GFR ( Amer) 39 L Est GFR (Non-Af Amer) 32 L BUN/Creatinine Ratio 15.9 Glucose 84 Lactate Calcium 8.7 Magnesium 2.0 Total Bilirubin 0.7 AST 15 ALT 13 L Alkaline Phosphatase 87 Troponin I High Sens NT-Pro-B Natriuret Pep 191.0 Total Protein 6.5 Albumin 3.0 L Globulin 3.5 Albumin/Globulin Ratio 0.9 TSH 0.861 Urine Color Urine Clarity Urine pH Ur Specific [place] Urine Protein Urine Glucose (UA) Urine Ketones Urine Occult Blood Urine Nitrite Urine Bilirubin Urine Urobilinogen Ur Leukocyte Esterase POC Glucose 163 H 62 L 01/22/24 01/22/24 01/22/24 17:56 16:46 14:57 WBC 9.3 RBC 3.41 L Hgb 11.0 L Hct 33.6 L MCV 98.5 H MCH 32.3 MCHC 32.7 RDW 14.1 Plt Count 145 L MPV 11.2 Neut % (Auto) 75.0 Lymph % (Auto) 14.9 L [place] % (Auto) 4.9 Eos % (Auto) 4.7 Baso % (Auto) 0.3 Neut # (Auto) 7.0 H Lymph # (Auto) 1.4 [place] # (Auto) 0.5 Eos # (Auto) 0.4 Baso # (Auto) 0.0 Abs Immat Gran (auto) 0.02 Imm/Tot Granulo (auto) 0.2 PT 11.7 H INR 1.12 Sodium 147 H Potassium 3.8 Chloride 109 H Carbon Dioxide 26.5 Anion Gap 15.3 BUN 34.0 H Creatinine 2.31 H Est GFR ( Amer) 33 L Est GFR (Non-Af Amer) 27 L BUN/Creatinine Ratio 14.7 Glucose 116 H Lactate 1.2 3.5 H* Calcium 8.9 Magnesium 1.4 L Total Bilirubin 0.6 AST 14 L ALT 13 L Alkaline Phosphatase 82 Troponin I High Sens 6.9 NT-Pro-B Natriuret Pep 218.0 Total Protein 6.4 Albumin 3.0 L Globulin 3.4 Albumin/Globulin Ratio 0.9 TSH 1.870 Urine Color Lt. yellow Urine Clarity Clear Urine pH 5.5 Ur Specific [place] 1.010 Urine Protein Negative Urine Glucose (UA) Negative Urine Ketones Negative Urine Occult Blood Negative Urine Nitrite Negative Urine Bilirubin Negative Urine Urobilinogen 0.2 Ur Leukocyte Esterase Negative POC Glucose Discharge Plan Discharge Disposition: Home Health Service Condition: Fair Discharge Medications: Continued allopurinol 300 mg tablet 300 mg PO DAILY docusate sodium 100 mg capsule 100 mg PO DAILY PRN (Reason: constipation) donepezil 10 mg tablet 10 mg PO BEDTIME fluoxetine 20 mg capsule 20 mg PO DAILY gabapentin 100 mg capsule 200 mg PO TID glipizide 10 mg tablet 10 mg PO BID meloxicam 15 mg tablet 15 mg PO BEDTIME methocarbamol 500 mg tablet 500 mg PO BEDTIME omeprazole 40 mg capsule,delayed release(DR/EC) 40 mg PO DAILY tamsulosin 0.4 mg capsule 0.4 mg PO DAILY furosemide 40 mg tablet 40 mg PO DAILY potassium chloride 20 mEq tablet,ER particles/crystals 20 meq PO DAILY trospium 60 mg capsule,extended release 24hr 60 mg PO DAILY candesartan [Atacand] 32 mg tablet 32 mg PO DAILY Qty: 30 11RF fluoxetine 10 mg capsule 10 mg PO DAILY oxybutynin chloride 5 mg tablet extended release 24hr 5 mg PO .QHS quetiapine 25 mg tablet 25 mg PO BID trazodone 100 mg tablet 100 mg PO .QHS amlodipine 5 mg tablet 5 mg PO .QD aspirin 81 mg tablet,chewable 1 tab PO .QD atorvastatin 40 mg tablet 40 mg PO .QHS Activity: ambulate only with your walker and increase activity as tolerated Diet: advance to your usual diet Print Language: Upper Sorbian Patient Instructions: Dehydration (DC), Hypotension (DC), Near Syncope (DC) Linen Folder/Mobile Ui Developer Instructions: Discharge with [facility], phone number is [phone], they will call within 48 hours of discharge. Forms: Portal Instructions Follow Up Appointments: Jan.28 @ 1pm with Dr. Cruz's office [phone]
--- NOTE | 2024-01-23 13:03 | SWNOTE1 ---
SW sent OT note, dc summary, and H&P to [address]
--- NOTE | 2024-01-23 13:54 | SWNOTE1 ---
SW called and cancelled [facility], pt's daughter was able to transport home.
--- NOTE | 2024-01-26 15:28 | CM.DCFOLLOWU ---
1st attempt 01/26/24, no answer
--- NOTE | 2024-01-27 15:11 | CM.NOTE ---
2nd attempt- states number disconnected.
== END 2024-01-23 13:44 | disposition home health service (06) ==
LOC: ER 17:22 → MS 18:41
PROVIDERS: Physician Assistant; Admitting Provider Family Medicine; Emergency Provider Emergency Medicine Emergency Medical Services; PCP Internal Medicine; Visit Provider Family Medicine
DX: E86.0 Dehydration (principal); Z95.0 Presence of cardiac pacemaker; M54.2 Cervicalgia; G89.29 Other chronic pain; E11.9 Type 2 diabetes mellitus without complications; N17.9 Acute kidney failure, unspecified; E78.5 Hyperlipidemia, unspecified; R55 Syncope and collapse; Z79.84 Long term (current) use of oral hypoglycemic drugs; Z79.82 Long term (current) use of aspirin; G30.1 Alzheimer's disease with late onset; F02.A3 Dementia in other diseases classified elsewhere, mild, with mood disturbance; F33.0 Major depressive disorder, recurrent, mild; E79.0 Hyperuricemia without signs of inflammatory arthritis and tophaceous disease; I11.0 Hypertensive heart disease with heart failure; I50.9 Heart failure, unspecified; I95.9 Hypotension, unspecified
CPT/HCPCS: 36415; 51702; 51798; 70450; 71045; 72125; 80053; 81003; 82948; 83605; 83735; 83880; 84443; 84484; 85025; 85610; 87040; 93005; 93880; 96361; 96365; 97163; 97165; 97535; 99285; G0378; J3475

== ENCOUNTER 2024-02-01 04:30 | Inpatient (IN) | payer MEDICARE, SELFPAY ==
[2024-02-01] VITALS (54 sets, daily range): BP systolic 100–145; BP diastolic 57–77; PULSE 71–130; TEMP 36.5–37.7; O2SAT 20–97; BMI 37.3; BMI 36.2
--- OUTSIDE RECORDS SUMMARY | 2024-02-01 04:34 | XMS_ITS | CCD ---
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 Name Role Phone JUAN PABLO ALANIZ Primary Care Physician [phone] DR JUAN PABLO ALANIZ Primary Care Unavailable [...] UNKNOWN Attending Unavailable GERARDO, ART Referring Unavailable GARCIASAM BARAKAT Referring Unavailable DIAB, CHAKA Referring Unavailable HORANI, [...] Care Unavailable Juan Pablo Alaniz MD Unavailable Juan Pablo Alaniz MD Primary Care Provider JUAN PABLO ALANIZ Attending Unavailable JUAN PABLO ALANIZ Attending Unavailable JUAN PABLO ALANIZ Attending Unavailable JUAN PABLO ALANIZ Attending Unavailable TOMMY GABRIEL Attending Unavailable DARCY SANDOVAL Attending Unavailable LORIDARCY Attending Unavailable LORIDARCY Attending Unavailable LORIDARCY Attending Unavailable LORIDARCY Attending Unavailable PERLA AGUILA Attending Unavailable Allergies Allergy Classification Reported Allergen(s) Allergy Type Date of Onset Reaction(s) Facility (10 sources) Penicillin; Translations: [penicillin] Drug Allergy 12-01-2021 [facility] (3 sources) Penicillins; Translations: [PENICILLINS] Drug allergy (disorder) 11-15-2023 [facility] (10 sources) Penicillin G Drug Allergy 11-01-2022 Unknown [facility] Work Phone: (9 sources) Codeine Drug Allergy 12-25-2023 [facility] Medications Current Medications Medication Drug Class(es) Dates Sig (Normalized) Sig (Original) acetaminophen 325 mg / chlorpheniramine maleate 2 mg oral tablet (2 sources) Histamine-1 Receptor Antagonist Start: 01-29-2024 End: 02-12-2024 take 2-325 mg by mouth every six hours Chlorpheniramine -Acetaminophen (CORICIDIN) 2-325 MG tablet Indications: Acute cough Take 2 tablets by mouth every 6 (six) hours for 14 days 112 tablet 01/29/2024 02/12/2024 Active allopurinol 300 mg oral tablet (18 sources) Xanthine Oxidase Inhibitor Start: 01-17-2021 take 1 tablet by mouth once daily allopurinol (Zyloprim) 300 MG tablet Indications: Essential hypertension (CMS/HCC) TAKE ONE TABLET BY MOUTH DAILY 100 tablet 3 03/13/2023 Active amLODIPine 5 mg oral tablet (9 sources) Dihydropyridine Calcium Channel Levi take 1 tablet by mouth once daily for hypertension amLODIPine (Norvasc) 5 MG tablet TAKE ONE TABLET BY MOUTH DAILY FOR HYPERTENSION Active aspirin 81 mg delayed release oral tablet (9 sources) Platelet Aggregation Inhibitor, Nonsteroidal Anti-inflammatory Drug take 1 tablet by mouth once daily aspirin 81 MG EC tablet Take 1 tablet by mouth Daily Active atorvastatin 40 mg oral tablet (9 sources) HMG-CoA Reductase Inhibitor take 1 capsule by mouth at bedtime for hyperlipidemia atorvastatin (Lipitor) 40 MG tablet TAKE ONE CAPSULE BY MOUTH AT BEDTIME FOR CHOLESTEROL CONTROL Active azithromycin 500 mg oral tablet (2 sources) Macrolide Antimicrobial Start: 01-29-2024 End: 02-03-2024 take 1 tablet by mouth once daily azithromycin (Zithromax) 500 MG tablet Indications: Localized edema , Acute cough Take 1 tablet (500 mg) by mouth Daily for 5 days 5 tablet 01/29/2024 02/03/2024 Active candesartan cilexetil 32 mg oral tablet (10 sources) Angiotensin 2 Receptor Levi Start: 10-07-2023 [...] Ordered docusate sodium 100 mg oral capsule (18 sources) Start: 01-16-2023 take 1 capsule by mouth once daily as needed docusate sodium (Colace) 100 MG capsule Indications: Constipation, unspecified constipation type TAKE ONE CAPSULE BY MOUTH DAILY NEEDED 28 capsule 11 01/16/2023 Active Start: 01-17-2021 docusate sodiu m Refills(s) 0 Start Date: 01/17/21 Status: Ordered donepezil hydrochloride 10 mg oral tablet (18 sources) Start: 10-23-2023 take 1 tablet by [...] Status: Ordered FLUoxetine 10 mg oral capsule (19 sources) Serotonin Reuptake Inhibitor Start: 12-08-2023 take 1 capsule by mouth once daily for depression FLUoxetine (PROzac) 10 MG capsule TAKE ONE CAPSULE BY MOUTH DAILY FOR DEPRESSION WITH 20MG TO EQUAL 30MG TOTAL 12/08/2023 Active Start: 11-28-2022 take [address] [facility] once daily FLUoxetine (PROzac) 20 MG capsule Indications: Seasonal affective disorder (CMS/HCC) TAKE ONE CAPSULE BY MOUTH ONCE DAILY 28 capsule 11 11/28/2022 Active furosemide 40 mg oral tablet (10 sources) Loop Diuretic Start: 11-13-2023 End: 11-12-2024 take 1 tablet by mouth once daily furosemide (Lasix) 40 MG tablet Indications: Bilateral lower extremity edema Take 1 tablet (40 mg) by mouth Daily 30 tablet 11 11/13/2023 11/12/2024 Active gabapentin 100 mg oral capsule (18 sources) Anti-epileptic Agent Start: 10-01-2023 take 2 [...] Status: Ordered glipiZIDE 10 mg oral tablet (18 sources) Sulfonylurea Start: 03-13-2023 take 1 tablet by mouth twice daily glipiZIDE (Glucotrol) 10 MG tablet Indications: Type 2 diabetes mellitus with other specified complication, without long-term current use of insulin ([facility]) TAKE ONE TABLET BY MOUTH TWICE A DAY 200 tablet 3 03/13/2023 Active Start: 01-17-2021 take 1 mg by mouth once daily glipiZIDE 10 mg Tab mg tab(s), Oral, Daily, Refills(s) 0 Start Date: 01/17/21 Status: Ordered hydrOXYzine hydrochloride 25 mg oral tablet (9 sources) Antihistamine Start: 12-08-2023 take 1 tablet by mouth every eight hours as needed for anxiety hydrOXYzine HCl (Atarax) 25 MG tablet Take 25 mg by mouth every 8 (eight) hours if needed for anxiety 12/08/2023 Active lidocaine 0.05 mg/mg medicated patch (10 sources) Antiarrhythmic, Amide Local Anesthetic Start: 01-21-2024 apply 1 dose transdermal route every twelve hours in the morning lidocaine (Lidoderm) 5 % patch Indications: Spinal stenosis of lumbar region with neurogenic claudication APPLY 1 PATCH TOPICALLY IN THE MORNING (12 HOURS ON, THEN 12 HOURS OFF) OR PER DIRECTED BY 30 patch 4 01/21/2024 Active Start: 01-13-2023 End: 01-13-2024 apply 1 dose transdermal route every twelve hours in the morning, then apply 1 dose transdermal route every twelve hours lidocaine (Lidoderm) 5 % patch Indications: Spinal stenosis of lumbar region with neurogenic claudication Apply 1 patch over 12 hours topically in the morning. Remove & discard patch within 12 hours or as directed by .. 30 patch 11 01/13/2023 01/13/2024 Active meloxicam 15 mg oral tablet (10 sources) Nonsteroidal Anti-inflammatory Drug Start: 10-23-2023 take 1 tablet by mouth at bedtime meloxicam (Mobic) 15 MG tablet Indications: Spinal stenosis of lumbar region, unspecified whether neurogenic claudication present TAKE ONE TABLET BY MOUTH AT BEDTIME 28 tablet 11 10/23/2023 Active methocarbamol 500 mg oral tablet (10 sources) Muscle Relaxant Start: 12-30-2023 take 1 [...] 01/16/2023 Active metOLazone 5 mg oral tablet (8 sources) Thiazide-like Diuretic Start: 12-25-2023 End: 12-30-2023 [...] omeprazole 40 mg delayed release oral capsule (10 sources) Proton Pump Inhibitor Start: 12-30-2023 take [...] chloride 5 mg extended release oral tablet (9 sources) Cholinergic Muscarinic Antagonist take 1 tablet by mouth every twenty-four hours at bedtime oxybutynin XL (Ditropan-XL) 5 MG 24 hr tablet TAKE ONE TABLET BY MOUTH AT BEDTIME FOR OVERACTIVE BLADDER Active microencapsulated potassium chloride 20 meq extended release oral tablet (10 sources) Start: 2023 End: 2024 take 1 tablet by mouth once daily potassium chloride CR (Klor-Con M20) 20 MEQ ER tablet Indications: Hypokalemia Take 1 tablet (20 mEq) by mouth Daily Do not crush or chew. 30 tablet 11 11/13/2023 11/12/2024 Active QUEtiapine 25 mg oral tablet (9 sources) Atypical Antipsychotic take 1 tablet by mouth twice daily QUEtiapine (SEROquel) 25 MG tablet TAKE ONE TABLET BY MOUTH TWICE A DAY FOR DELUSIONS Active solifenacin succinate 10 mg oral tablet (14 sources) Cholinergic Muscarinic Antagonist Start: 2023 take 1 tablet by mouth once daily solifenacin 10 mg Tab 10 mg = 1 tab(s), Oral, Daily, # 30 tab(s), Refills(s) 11, Pharmacy: [facility], 167, cm, 09/16/22 15:10:00 EDT, Height/Length Dosing, 120, kg, 09/16/22 15:10:00 EDT, Weight Dosing Start Date: 10/01/23 Status: Ordered Start: 09-16-2022 End: 09-11-2023 take 1 tablet by mouth once daily Vesicare 10 mg Tab 10 mg = 1 tab(s), Oral, Daily, X 30 day(s), # 30 tab(s), Refills(s) 11, Pharmacy: [facility], 167, cm, 09/16/22 15:10:00 EDT, Height/Length Dosing, 120, kg, 09/16/22 15:10:00 EDT, Weight Dosing Start Date: 09/16/22 Stop Date: 09/11/23 Status: Ordered Start: 04-26-2022 take 1 tablet by shannon th once daily Vesicare 5 mg Tab 5 mg = 1 tab(s), Oral, Daily, # 30 tab(s), Refills(s) 11, Pharmacy: [facility], 174, cm, 12/03/21 13:40:00 EDT, Height/Length Dosing, 112, kg, 12/03/21 13:40:00 EDT, Weight Dosing Start Date: 04/26/22 Status: Ordered tamsulosin hydrochloride 0.4 mg oral capsule (18 sources) alpha-Adrenergic Levi Start: 10-01-2023 take 1 capsule by mouth once daily Flomax 0.4 mg Cap 0.4 mg = 1 cap(s), Oral, Daily, # 30 cap(s), Refills(s) 11, Pharmacy: [facility], 167, cm, 09/16/22 15:10:00 EDT, Height/Length Dosing, 120, kg, 09/16/22 15:10:00 EDT, Weight Dosing Start Date: 10/01/23 Status: Ordered Start: 10-31-2022 take 1 capsule by mo uth every twenty-four hours in the morning tamsulosin [...] Daily, # 30 cap(s), Refills(s) 11, Pharmacy: [facility], 174, cm, 09/03/21 13:40:00 EDT, Height/Length Dosing, 112.5, kg, 09/03/21 13:40:00 EDT, Weight Dosing Start Date: 09/03/21 Status: Ordered traZODone hydrochloride 100 mg oral tablet (9 sources) Serotonin Reuptake Inhibitor take 1 capsule by mouth at bedtime for depression traZODone (Desyrel) 100 MG tablet TAKE ONE CAPSULE BY MOUTH AT BEDTIME FOR DEPRESSION Active 24 hr trospium chloride 60 mg extended release oral capsule (9 sources) Cholinergic Muscarinic Antagonist Start: 12-08-2023 trospium (Sanctura XR) 60 MG 24 hour capsule Take by mouth Daily 12/08/2023 Active vibegron 75 MG Oral Tablet [Gemtesa] (1 source) Start: 11-11-2023 take 1 tablet by mouth once daily Gemtesa 75 mg oral tablet 75 mg = 1 tab(s), Oral, Daily, # 30 tab(s), Refills(s) 3, Pharmacy: [id number], 167, cm, 11/11/23 13:29:00 EDT, Height/Length Dosing, [...] morning. 100 tablet 2 05/13/2023 12/25/2023 Discontinued doxycycline hyclate 100 mg oral tablet (9 sources) Tetracycline-cla ss Drug End: 01-29-2024 take 1 tablet by mouth in the morning doxycycline (Vibra-Tabs) 100 MG tablet Take 1 tablet by mouth in the morning and 1 tablet before bedtime. 01/29/2024 Discontinued Problems Active Problems Problem Classification Problem Date Documented Date Episodic/Chronic Acute and unspecified renal failure (1 source) Acute kidney failure, unspecified; Translations: [ACUTE KIDNEY FAILURE UNSPECIFIED] Onset: 07-31-2022 Episodic Chronic kidney disease (10 sources) Chronic kidney disease stage 3A ; Translations: [Stage 3a chronic kidney disease (HCC)] Onset: 11-21-2023 12-02-2023 Chronic Chronic obstructive pulmonary disease and bronchiectasis (1 source) Chronic obstructive pulmonary disease, unspecified; Translations: [COPD UNSPECIFIED] Onset: 03-06-2022 Chronic Conduction disorders (20 sources) Other specified heart block; Translations: [Presence of cardiac pacemaker] Onset: 11-15-2023 Chronic Coronary atherosclerosis and other heart disease (12 sources) Atherosclerotic heart disease of [place] coronary artery with unspecified angina pectoris; Translations: [Coronary arteriosclerosis] Onset: 11-15-2023 Chronic Diabetes mellitus with complications (20 sources) Type 2 diabetes mellitus with diabetic neuropathy, unspecified; Translations: [Type 2 diabetes mellitus with other circulatory complications] Onset: 09-04-2016 Resolved: 11-19-2022 11-19-2022 Chronic Diabetes mellitus without complication (19 sources) Diabetes mellitus; Translations: [Type 2 diabetes mellitus without complications] Onset: 07-31-2022 07-17-2020 Chronic Diverticulosis and diverticulitis (18 sources) Diverticulitis; Translations: [Diverticulosis of sigmoid colon] Onset: 10-07-2022 01-17-2021 Chronic Esophageal disorders (11 sources) Gastro-esophageal reflux disease without esophagitis; Translations: [Gastroesophageal reflux disease without esophagitis] Onset: 12-11-2021 10-07-2022 Chronic Essential hypertension (20 sources) Hypertensive disorder; Translations: [Essential (primary) hypertension] Onset: 03-06-2022 01-17-2021 Chronic Fluid and electrolyte disorders (20 sources) Hypernatremia; Translations: [Hyperosmolality and hypernatremia] Onset: 11-21-2023 12-02-2023 Episodic Gastritis and duodenitis (10 sources) Atrophic gastritis; Translations: [Chronic atrophic gastritis [...] tract symptoms] Onset: 09-03-2021 Chronic Mood disorders (10 sources) Seasonal affective disorder; Translations: [Other recurrent depressive disorders] Onset: 10-07-2022 10-07-2022 Chronic Mycoses (15 sources) Tinea unguium; Translations: [Onychomycosis due to dermatophyte ] Onset: 11-29-2021 Episodic Other aftercare (1 source) Other intermediate teacher (current) drug therapy; Translations: [OTH CORRECTION CURRENT DRUG THERAPY] Onset: 07-31-2022 Episodic Other aftercare (1 source) alf (current) use of oral hypoglycemic drugs; Translations: [GLASS CALIBRATOR USE ORAL HYPOGLYCEMIC DX] Onset: 07-31-2022 Episodic Other connective tissue disease (4 sources) Other muscle spasm; Translations: [OTHER MUSCLE SPASM] Onset: 05-23-2022 Episodic Other connective tissue disease (10 sources) Pain in toe; Translations: [Pain in unspecified toe(s)] Onset: 12-02-2023 12-02-2023 Episodic Other connective tissue disease (10 sources) Swelling of bilateral feet; Translations: [Other specified soft tissue disorders] Onset: 12-02-2023 12-02-2023 Episodic Other diseases of bladder and urethra (2 sources) Other specified disorders of bladder; Translations: [Other specified disorders of bladder] Onset: 11-15-2023 Chronic Other diseases of bladder and urethra (10 sources) Overactive bladder; Translations: [Overactive bladder] Onset: [...] Onset: 07-31-2022 Episodic Other lower respiratory disease (4 sources) Cough; Translations: [Acute cough] 12-25-2023 Episodic Other male genital disorders (10 sources) Secondary erectile dysfunction; Translations: [Male erectile dysfunction, unspecified] Onset: 09-30-2017 11-19-2022 Chronic Other nervous system disorders (8 sources) Neuropathy 01-17-2021 Chronic Other nervous system disorders (1 source) Other chronic pain; Translations: [OTHER CHRONIC PAIN] Onset: 04-18-2022 Chronic Other nervous system disorders (10 sources) Metabolic encephalopathy; Translations: [Metabolic encephalopathy] Onset: 11-21-2023 12-02-2023 Chronic Other nutritional; endocrine; and metabolic disorders (10 sources) Obesity caused by energy imbalance; Translations: [Other obesity due to excess calories] Onset: 11-21-2023 12-02-2023 Chronic Other skin disorders (5 sources) Nail dystrophy; Translations: [NAIL DYSTROPHY] Onset: 04-30-2022 Episodic Other upper respiratory infections (7 sources) Acute laryngitis; Translations: [Acute upper respiratory infection, unspecified] Onset: 03-03-2022 Episodic Residual codes; unclassified (8 sources) Amnesia 01-17-2021 Episodic Residual codes; unclassified (8 sources) Swelling - edema - symptom 01-17-2021 Episodic Residual codes; unclassified (2 sources) Edema, unspecified; Translations: [Edema, unspecified] Onset: 12-05-2023 Episodic Residual codes; unclassified (14 sources) Localized edema; Translations: [Localized edema] Onset: 10-07-2022 10-07-2022 Episodic Residual codes; unclassified (2 sources) Edema; Translations: [Edema, unspecified] 01-08-2024 Episodic Residual codes; unclassified (2 sources) Altered mental status; Translations: [Altered mental status, unspecified] 01-08-2024 Episodic Screening and history of mental health and substance abuse codes (1 source) Personal history of nicotine dependence; Translations: [PERSONAL HISTORY OF NICOTINE DEPEND] Onset: 07-31-2022 Episodic Spondylosis; intervertebral disc disorders; other back problems (20 sources) Other intervertebral disc degeneration, lumbar region; Translations: [Spondylosis without myelopathy or radiculopathy, lumbar region] Onset: 12-13-2021 Chronic Substance-related disorders (8 sources) Smoker 01-19-2021 Chronic Comment on above: Added secondary to d ocumentation in Social History. Syncope (12 sources) Syncope and collapse; Translations: [Syncope and [...] OF COVID-19] Onset: 03-06-2022 Unclassified (1 source) GLASS CALIBRATOR INJECT NONINSULN ANTIDIAB; Translations: [GLASS CALIBRATOR INJECT NONINSULN ANTIDIAB] Onset: 03-02-2022 Unclassified (2 sources) Admission Requirement; Translations: [Admission Requirement] Onset: 11-30-2023 Past or Other Problems Problem Classification Problem Date Documented Da te Episodic/Chronic Biliary tract disease (10 sources) Cholelithiasis without obstruction; Translations: [Calculus of gallbladder without cholecystitis without obstruction] Onset: 10-07-2022 10-07-2022 Episodic Mood disorders (10 sources) Mood disorders Onset: 04-23-2023 04-23-2023 Other aftercare (10 sources) Long-term current use of insulin; Translations: [alf (current) use of insulin] Onset: 07-23-2017 Resolved: 04-23-2023 04-23-2023 Episodic Other connective tissue disease (18 sources) Calcaneal spur; Translations: [Calcaneal spur, unspecified foot] Onset: 09-04-2016 01-17-2021 Episodic Other connective tissue disease (1 source) Muscle wasting and atrophy, not elsewhere classified, unspecified site; Translations: [MUSCLE WASTING ATROPHY NEC UNS SITE] Onset: 10-04-2021 Episodic Other diseases of veins and lymphatics (1 source) Venous insufficiency (chronic) (peripheral); Translations: [VENOUS INSUFF CHRONIC PERIPHERAL] Onset: 12-11-2021 Episodic Other gastrointestinal disorders (10 sources) Constipation; Translations: [Constipation, unspecified] Onset: 01-31-2020 11-19-2022 Episodic Other lower respiratory disease (18 sources) Nodule of lung; Translations: [Solitary pulmonary nodule] Onset: 10-07-2022 01-17-2021 Episodic Other nervous system disorders (10 sources) Impaired cognition; Translations: [Other symptoms and signs involving cognitive functions and awareness] Onset: 10-07-2022 10-07-2022 Episodic Other nervous system disorders (10 sources) Ataxic gait; Translations: [Ataxic gait] Onset: [...] TISS DZ CLASS ELSW] Onset: 12-11-2021 Episodic Residual codes; unclassified (1 source) Localized edema; Translations: [LOCALIZED EDEMA] Onset: 04-30-2022 Episodic Residual codes; unclassified (10 sources) Insomnia; Translations: [Insomnia, unspecified] Onset: 10-07-2022 10-07-2022 Episodic Spondylosis; intervertebral disc [...] Anion gap [Moles/Vol] 9 mmol/L Normal - [facility] Comment on above: Performed By: #### B MP #### [facility] [address] [place] [address] [place] [address] Ticket Dispatcher: Eliud Leonard MD BUN/CRE Ratio 20 Normal 9- [facility] Comment on above: Performed By: #### B MP #### [facility] [address] [place] [address] [place] [place], [place] [id number] Ticket Dispatcher: Eliud Leonard MD Calcium [Mass/Vol] 8.5 mg/dL Low 8.6-10.4 [facility] Comment on above: Performed By: #### B MP #### [facility] [address] [place] [address] [place] [place], [place] [id number] Ticket Dispatcher: Eliud Leonard MD Chloride [Moles/Vol] 108 mmol/L High 98-107 [facility] Comment on above: Performed By: #### B MP #### [facility] [address] [place] [address] [address] [place], [place] [id number] Ticket Dispatcher: Eliud Leonard MD CO2 [Moles/Vol] 26 mmol/L Normal - [facility] Comment on above: Performed By: #### B MP #### [facility] [address] [place] [address] [place], [place] [id number] Ticket Dispatcher: Eliud Leonard MD Creatinine [Mass/Vol] 1.6 mg/dL High 0.70-1.20 [facility] Comment on above: Performed By: #### B MP #### [facility] [address] [place] [address] Ticket Dispatcher: Eliud Leonard MD GFR/1.73 sq M.predicted among non-blacks MDRD (S/P/Bld) [Vol rate/Area] 41 mL/min/{1.73_m2} Low >60 [facility] Comment on above: Result Comment: These results [...] secretion. Performed By: #### B MP #### [facility] [address] [place] [address] [place] [address] Ticket Dispatcher: Eliud Leonard MD Glucose [Mass/Vol] 66 mg/dL Low 74-99 [facility] Comment on above: Performed By: #### B MP #### [address] [place] [address] Ticket Dispatcher: Eliud Leonard MD Potassium [Moles/Vol] 4.3 mmol/L Normal 3.7-5.3 [facility] Comment on above: Performed By: #### B MP #### [facility] [address] [place], [place] [id number] Ticket Dispatcher: Eliud Leonard MD Sodium [Moles/Vol] 143 mmol/L Normal 136-145 [facility] Comment on above: Performed By: #### B MP #### [facility] [address] [place] [address] Ticket Dispatcher: Eliud Leonard MD Urea nitrogen [Mass/Vol] 32 mg/dL High 8-23 [facility] Comment on above: Performed By: #### B MP #### [facility] [address] [place], [place] [id number] Ticket Dispatcher: Eliud Leonard MD Cult,Urineon 12-01-2023 Cult,Urine Specimen Description .CLEAN CATCH URINE Culture NO SIGNIFICANT GROWTH Report Status FINAL 12/01/2023 Normal [facility] Comment on above: Performed By: #### U RC #### [facility] [address] [place], [place] [id number] Ticket Dispatcher: [place] MD [facility] [address] [place], [place] [id number] Ticket Dispatcher: Eliud Leonard MD Urinalysis, Routineon 2023 Bilirubin, SemiQt,Ur Negative Normal NEG [facility] Comment on above: Performed By: #### U A #### [facility] [address] [place] [address] [place], [place] [phone] Ticket Dispatcher: Eliud Leonard MD Blood, Urine Negative Normal NEG [facility] Comment on above: Performed By: #### U A #### [facility] [address] [place] [address] [address] [place], [place] [id number] Ticket Dispatcher: Eliud Leonard MD Clarity (U) Clear Normal CLEAR [facility] Comment on above: Performed By: #### U A #### [facility] [address] [place] [address] [place] [place], [place] [phone] Ticket Dispatcher: Eliud Leonard MD Color (U) Yellow Normal YEL [facility] Comment on above: Performed By: #### U A #### [facility] [address] [place], [place] [id number] Ticket Dispatcher: Eliud Leonard MD Glucose Ql (U) Negative Normal NEG [facility] Comment on above: Performed By: #### U A #### [facility] [address] [place], [place] [phone] Ticket Dispatcher: Eilud Leonard MD Ketones Ql (U) Negative Normal NEG [facility] Comment on above: Performed By: #### U A #### [facility] [address] [place] [address] [address], [place] [id number] Ticket Dispatcher: Eliud Leonard MD Leukocyte esterase Test strip Ql (U) Negative Normal NEG [facility] Comment on above: Performed By: #### U A #### [facility] [address] [place] [address] [place], [place] [phone] Ticket Dispatcher: Eliud Leonard MD Nitrite,Ur Negative Normal NEG [facility] Comment on above: Performed By: #### U A #### [address] [place], [place] [id number] Ticket Dispatcher: Eliud Leonard MD PH,Ur 6.0 Normal 5.0-9.0 [facility] Comment on above: Performed By: #### U A #### [address] [place], [place] [id number] Ticket Dispatcher: Eliud Leonard MD Protein Ql (U) Negative Normal NEG [facility] Comment on above: Performed By: #### U A #### [address] [place], [place] [id number] Ticket Dispatcher: Eliud Leonard MD Spec. [place],Ur 1.020 Normal 1.010-1.020 [facility] Comment on above: Performed By: #### U A #### [address] [place], [place] [id number] Ticket Dispatcher: Eliud Leonard MD Urobilinogen,Ur Normal Normal 0.0-1.0 [facility] Comment on above: Performed By: #### U A #### [address] [place], [place] [id number] Ticket Dispatcher: Eliud Leonard MD CT CERVICAL SPINE WO [...] midline. The ventricles and peripheral sulci are fwfu-ar-izbvrqevyg dilated. There is decreased attenuation in the [...] Deacon Justice MD 11/28/23 Final result Normal [facility] CT HEAD WO CONTRASTon 2023 CT HEAD [...] midline. The ventricles and peripheral sulci are olnn-hx-pseraabcvp dilated. There is decreased attenuation in the [...] Deacon Justice MD 11/28/23 Final result Normal [facility] 30on 11-22-2023 30 The patient is Moderately [...] and maintained or improved Outcome: Progressing Normal [facility] BASIC METABOLIC PANELon 08-3 Anion gap [Moles/Vol] 10 mmol/L Normal 7-20 [facility] Comment on above: Performed By: #### L [id number] ####[facility] (BEAKER)[address] [place] [address] Calcium [Mass/Vol] 8.0 mg/dL Low 8.6-10.3 [facility] Comment on above: Performed By: #### L [id number] ####[facility] (BEAKER)[address] [place] [address] Chloride [Moles/Vol] 111 mmol/L High 98-107 [facility] Comment on above: Performed By: #### L [id number] ####[facility] ([facility])[address] [place] [address] CO2 [Moles/Vol] 29 mmol/L Normal 21-31 [facility] Comment on above: Performed By: #### L [id number] ####[facility] ([facility])[address] [place] [address] Creatinine [Mass/Vol] 1.36 mg/dL High 0.70-1.30 [facility] Comment on above: Performed By: #### L [id number] ####[facility] ([facility])[address] [place] [address] GLOMERULAR FILTRATION RATE ML/MIN/1.73 SQ M.PREDICTED 51.0 mL/min/1.73m*2 Low >60.0 [facility] Comment on above: Result Comment: The [facility]???s estimated glomerular filtration rate (eGFR) will [...] of individuals. Performed By: #### L [id number] ####[facility] ([facility])[address] [place] [address] Glucose [Mass/Vol] 150 mg/dL High 70-100 [facility] Comment on above: Performed By: #### L [id number] ####[facility] ([facility])[address] [place] [address] Potassium [Moles/Vol] 3.3 mmol/L Low 3.5-5.1 [facility] Comment on above: Performed By: #### L [id number] ####[facility] (BEAKER)[address] [place] [address] Sodium [Moles/Vol] 147 mmol/L High 136-145 [facility] Comment on above: Performed By: #### L [id number] ####[facility] (BEAKER)[address] [place] [address] Urea nitrogen [Mass/Vol] 25 mg/dL Normal 7-25 [facility] Comment on above: Performed By: #### L [id number] ####[facility] ([facility])[address] [place] [address] UREA NITROGEN/CREATININ E (MASS RATIO) IN SER/PLAS 18.4 Normal [facility] Comment on above: Performed By: #### L [id number] ####[facility] ([facility])[address] [place] [address] CBC WITH AUTO DIFFERENTIALon 11-22-2023 Basophils (Bld) [#/Vol] 0.06 10*3/uL Normal 0.00-0.20 [facility] Comment on above: Performed By: #### L [id number] ####[facility] ([facility])[address] [place] [address] Basophils/100 WBC (Bld) 0.7 % Normal 0.0-1.0 [facility] Comment on above: Performed By: #### L [id number] ####[facility] (BEAKER)[address] [place] [address] Eosinophils (Bld) [#/Vol] 0.37 10*3/uL Normal 0.00-0.50 [facility] Comment on above: Performed By: #### L [id number] ####[facility] (BEAKER)[address] [place] [address] Eosinophils/100 WBC (Bld) 4.2 % Normal 0.0-6.0 [facility] Comment on above: Performed By: #### L [id number] ####[facility] (BEAKER)[address] [place] [address] Erythrocyte distribution width (RBC) [Ratio] 15.2 % High 11.5-15.0 [facility] Comment on above: Performed By: #### L [id number] ####[facility] (BEAKER)[address] [place] [address] ERYTHROCYTE MEAN CORPUSCULAR HEMOGLOBIN CONCENTRATION (G/DL) BY AUTOMATED 32.6 g/dL Normal 32.0-35.0 [facility] Comment on above: Performed By: #### L [id number] ####[facility] (BEAKER)[address] [place] [address] Hematocrit (Bld) [Volume fraction] 38.3 % Low 39.0-55.0 [facility] Comment on above: Performed By: #### L [id number] ####[facility] (BEAKER)[address] [place] [address] Hemoglobin (Bld) [Mass/Vol] 12.5 g/dL Low 13.0-17.0 [facility] Comment on above: Performed By: #### L [id number] ####[facility] (BEAKER)[address] [place] [address] Immature granulocytes (Bld) [#/Vol] 0.15 10*3/uL Normal 0.00-0.20 [facility] Comment on above: Performed By: #### L [id number] ####[facility] (BEAKER)[address] [place] [address] Immature granulocytes/100 WBC (Bld) 1.7 % High 0.0-1.0 [facility] Comment on above: Performed By: #### L [id number] ####[facility] (BEAKER)[address] [place] [address] Lymphocytes (Bld) [#/Vol] 1.19 10*3/uL Low 1.20-4.00 [facility] Comment on above: Performed By: #### L [id number] ####[facility] (BEAKER)[address] [place] [address] Lymphocytes/100 WBC (Bld) 13.6 % Low 20.0-45.0 [facility] Comment on above: Performed By: #### L [id number] ####[facility] ([facility])[address] [place] [address] MCH (RBC) [Entitic mass] 32.4 pg Normal 27.0-33.0 [facility] Comment on above: Performed By: #### L [id number] ####[facility] ([facility])[address] [place] [address] MCV (RBC) [Entitic vol] 99.2 fL High 82.0-98.0 [facility] Comment on above: Performed By: #### L [id number] ####[facility] (BEAKER)[address] [place] [address] Monocytes (Bld) [#/Vol] 0.93 10*3/uL Normal 0.10-1.00 [facility] Comment on above: Performed By: #### L [id number] ####[facility] (BEAKER)[address] [place] [address] Monocytes/100 WBC (Bld) 10.6 % Normal 5.0-12.0 [facility] Comment on above: Performed By: #### L [id number] ####[facility] (BEAKER)[address] [place] [address] Neutrophils (Bld) [#/Vol] 6.06 10*3/uL Normal 1.60-7.60 [facility] Comment on above: Performed By: #### L [id number] ####[facility] (BEAKER)[address] [facility] [address] Neutrophils/100 WBC (Bld) 69.2 % Normal 40.0-72.0 [facility] Comment on above: Performed By: #### L [id number] ####[facility] (BEAKER)[address] [place] [address] NRBC (PER 100 WBCS) BY AUTOMATED COUNT 0.0 % Normal 0 [facility] Comment on above: Performed By: #### L [id number] ####[facility] (BEAKER)[address] [place] [address] PLATELETS (10*3/UL) IN BLOOD AUTOMATED COUNT 167 10*3/uL Normal 150-400 [facility] Comment on above: Performed By: #### L [id number] ####[facility] ([facility])[address] [place] [address] RBC (Bld) [#/Vol] 3.86 10*6/uL Low 4.20-5.70 [facility] Comment on above: Performed By: #### L [id number] ####[facility] ([facility])[address] [place] [address] WBC (Bld) [#/Vol] 8.76 10*3/uL Normal 4.00-10.60 [facility] Comment on above: Performed By: #### L [id number] ####[facility] ([facility])[address] [place] [address] 30on 11-21-2023 30 The patient is Moderately Stable - Low risk of patient condition declining or worsening The patient's goals for the shift include rest/comfort The clinical goals for the shift include VSS Problem: Pain - Adult Goal: Verbalizes/displays adequate comfort level or baseline comfort level Outcome: Progressing Problem: Safety - Adult Goal: Free from fall injury Outcome: Progressing Normal [facility] 30 The patient is Moderately Stable [...] and maintained or improved Outcome: Progressing Normal [facility] BASIC METABOLIC PANELon 10-24 Anion gap [Moles/Vol] 9 mmol/L Normal 7-20 [facility] Comment on above: Performed By: #### L [id number] ####[facility] ([facility])[address] [place] [address] Calcium [Mass/Vol] 8.0 mg/dL Low 8.6-10.3 [facility] Comment on above: Performed By: #### L [id number] ####[facility] ([facility])[address] [place] [address] Chloride [Moles/Vol] 113 mmol/L High 98-107 [facility] Comment on above: Performed By: #### L [id number] ####[facility] ([facility])[address] [place] [address] CO2 [Moles/Vol] 27 mmol/L Normal 21-31 [facility] Comment on above: Performed By: #### L [id number] ####[facility] ([facility])[address] [place] [address] Creatinine [Mass/Vol] 1.47 mg/dL High 0.70-1.30 [facility] Comment on above: Performed By: #### L [id number] ####[facility] ([facility])[address] [place] [address] GLOMERULAR FILTRATION RATE ML/MIN/1.73 SQ M.PREDICTED 46.5 mL/min/1.73m*2 Low >60.0 [facility] Comment on above: Result Comment: The [facility]???s estimated glomerular filtration rate (eGFR) will [...] of individuals. Performed By: #### L [id number] ####[facility] ([facility])[address] [place] [address] Glucose [Mass/Vol] 135 mg/dL High 70-100 [facility] Comment on above: Performed By: #### L [id number] ####[facility] ([facility])[address] [place] [address] Potassium [Moles/Vol] 3.3 mmol/L Low 3.5-5.1 [facility] Comment on above: Performed By: #### L [id number] ####[facility] ([facility])[address] [place] [address] Sodium [Moles/Vol] 146 mmol/L High 136-145 [facility] Comment on above: Performed By: #### L [id number] ####[facility] ([facility])[address] [place] [address] Urea nitrogen [Mass/Vol] 35 mg/dL High 7-25 [facility] Comment on above: Performed By: #### L [id number] ####[facility] ([facility])[address] [place] [address] UREA NITROGEN/CREATININ E (MASS RATIO) IN SER/PLAS 23.8 Normal [facility] Comment on above: Performed By: #### L [id number] ####[facility] ([facility])[address] [place] [address] CBCon 11-21-2023 Erythrocyte distribution width (RBC) [Ratio] 15.3 % High 11.5-15.0 [facility] Comment on above: Performed By: #### L [id number] ####[facility] ([facility])[address] [place] [address] ERYTHROCYTE MEAN CORPUSCULAR HEMOGLOBIN CONCENTRATION (G/DL) BY AUTOMATED 32.7 g/dL Normal 32.0-35.0 [facility] Comment on above: Performed By: #### L [id number] ####[facility] ([facility])[address] [place] [address] Hematocrit (Bld) [Volume fraction] 38.5 % Low 39.0-55.0 [facility] Comment on above: Performed By: #### L [id number] ####[facility] ([facility])[address] [place] [address] Hemoglobin (Bld) [Mass/Vol] 12.6 g/dL Low 13.0-17.0 [facility] Comment on above: Performed By: #### L [id number] ####[facility] ([facility])[address] [place] [address] MCH (RBC) [Entitic mass] 32.1 pg Normal 27.0-33.0 [facility] Comment on above: Performed By: #### L [id number] ####[facility] ([facility])[address] [place] [address] MCV (RBC) [Entitic vol] 98.2 fL High 82.0-98.0 [facility] Comment on above: Performed By: #### L [id number] ####[facility] ([facility])[address] [place] [address] PLATELETS (10*3/UL) IN BLOOD AUTOMATED COUNT 172 10*3/uL Normal 150-400 [facility] Comment on above: Performed By: #### L [id number] ####[facility] ([facility])[address] [place] [address] RBC (Bld) [#/Vol] 3.92 10*6/uL Low 4.20-5.70 [facility] Comment on above: Performed By: #### L [id number] ####[facility] ([facility])[address] [place] [address] WBC (Bld) [#/Vol] 9.67 10*3/uL Normal 4.00-10.60 [facility] Comment on above: Performed By: #### L [id number] ####[facility] ([facility])[address] [place] [address] 30on 11-20-2023 30 The patient is Moderately Stable - Low risk of patient condition declining or worsening The patient's goals for the shift include restraints off The clinical goals for the shift include stable hemodynamics Over the shift, the patient did not make progress toward the following goals. [facility] 30 Daily Case Managemen t Update [...] OT Six Click Score: 8 PT Recommendations: [facility] facility placement OT Recommendations: [facility] facility placement New Consults: Ancillary Consults (From admission, onward) Start Ordered 11/19/23 0924 Inpatient consult to Social Work Once Provider: (Not yet assigned) Question Answer Comment Select all services needed for the patient [facility] (30 day convalescent stay) Please indicate [...] OT? Answer: eval and treat 11/19/23 0756 [facility] CONSULTon 11-20-2023 CONSULT -- Attestation signed by Juan Pablo Liz MD at 11/21/2023 12:08 PM As noted. Patient to be staffed in person on 11/20 Psychiatry Consultation Service - New Assessment Patient Name: Nat Moore MRN / CSN: [id number] Date of / Age: 2 1940 / [...] mild cognitive impairment originally presenting to the [facility] Emergency Room on 11/15/2023 for evaluation of recurrent episodes of syncope secondary to spontaneous prolonged sinus pause. The patient was transferred via air ambulance from the [facility]. Psychiatry was consulted for management of agitation secondary to dementia . Emergency Room Course: Imaging/Workup: On arrival to [facility] the patient's blood pressure was 158/72 mmHg, pulse rate 78 bpm, regular, SpO2 100% on room air, respiratory rate 20/min, temperature 97.2. 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 CT of the abdomen with contrast done at [place] ED showed nonobstructive bowel gas pattern with [...] would con (more content not included)... Normal [facility] NURSNOTEon 11-20-2023 NURSNOTE Patient Name: Nat [...] voiced no concerns at this time. The editorial writer urged the primary RN to call the rapid team if any concerns arise overnight. Chevy Hines RN Rapid Response Team Nurse [phone] 11/20/2023 11:34 PM Normal [facility] 30on 11-19-2023 30 Daily Case Managemen t Update Multidisciplinary rounds have been completed. Barriers to Discharge: 11/18- patient here from [facility]SH for recurrent episodes of syncope secondary to spontaneous prolonged sinus pauses. During his stay in [place] ED he suddenly developed bradycardia prolonged sinus [...] Consults (From admission, onward) Start Ordered 11/19/23 09 Inpatient consult to Social Work Once Provider: (Not yet assigned) Question Answer Comment Select all services needed for the patient [facility] (30 day convalescent stay) Please indicate your approval for this care by adding your name here: VASILEJUAN PABLOGURDEEP [place] 11/19/23923 Therapy Orders (From admission, onward) Start Ordered 11/19/23 0757 PT eval and treat Until therapy completed Question: Reason for PT? Answer: eval and treat 11/19/23 0756 11/19/23 0757 OT eval and treat Until therapy completed Question: Reason for OT? Answer: eval and treat 11/19/23 0756 Normal [facility] BASIC METABOLIC PANELon 08- Anion gap [Moles/Vol] 11 mmol/L Normal 7-20 [facility] Comment on above: Performed By: #### L [id number] ####[facility] (BEAKER)[address] [place] [address] Calcium [Mass/Vol] 8.0 mg/dL Low 8.6-10.3 [facility] Comment on above: Performed By: #### L [id number] ####[facility] (BEAKER)[address] [place] [address] Chloride [Moles/Vol] 112 mmol/L High 98-107 [facility] Comment on above: Performed By: #### L [id number] ####[facility] (BEAKER)[address] [place] [address] CO2 [Moles/Vol] 26 mmol/L Normal 21-31 [facility] Comment on above: Performed By: #### L [id number] ####[facility] ([facility])[address] [place] [address] Creatinine [Mass/Vol] 1.69 mg/dL High 0.70-1.30 [facility] Comment on above: Performed By: #### L [id number] ####[facility] ([facility])[address] [place] [address] GLOMERULAR FILTRATION RATE ML/MIN/1.73 SQ M.PREDICTED 39.3 mL/min/1.73m*2 Low >60.0 [facility] Comment on above: Result Comment: The [facility]???s estimated glomerular filtration rate (eGFR) will [...] of individuals. Performed By: #### L [id number] ####[facility] ([facility])[address] [place] [address] Glucose [Mass/Vol] 122 mg/dL High 70-100 [facility] Comment on above: Performed By: #### L [id number] ####[facility] ([facility])[address] [place] [address] Potassium [Moles/Vol] 3.5 mmol/L Normal 3.5-5.1 [facility] Comment on above: Performed By: #### L [id number] ####[facility] ([facility])[address] [place] [address] Sodium [Moles/Vol] 145 mmol/L Normal 136-145 [facility] Comment on above: Performed By: #### L [id number] ####[facility] ([facility])[address] [place] [address] Urea nitrogen [Mass/Vol] 49 mg/dL High 7-25 [facility] Comment on above: Performed By: #### L [id number] ####[facility] ([facility])[address] [place] [address] UREA NITROGEN/CREATININ E (MASS RATIO) IN SER/PLAS 29.0 Normal [facility] Comment on above: Performed By: #### L [id number] ####[facility] ([facility])[address] [place] [address] CBCon 11-19-2023 Erythrocyte distribution width (RBC) [Ratio] 15.0 % Normal 11.5-15.0 [facility] Comment on above: Performed By: #### L [id number] #### [facility] ([facility]) [address] [place] [address] ERYTHROCYTE MEAN CORPUSCULAR HEMOGLOBIN CONCENTRATION (G/DL) BY AUTOMATED 32.8 g/dL Normal 32.0-35.0 [facility] Comment on above: Performed By: #### L [id number] #### [facility] ([facility]) [address] [place] [address] Hematocrit (Bld) [Volume fraction] 38.7 % Low 39.0-55.0 [facility] Comment on above: Performed By: #### L [id number] #### [facility] ([facility]) [address] [place] [address] Hemoglobin (Bld) [Mass/Vol] 12.7 g/dL Low 13.0-17.0 [facility] Comment on above: Performed By: #### L [id number] #### [facility] ([facility]) [address] [place] [address] MCH (RBC) [Entitic mass] 31.8 pg Normal 27.0-33.0 [facility] Comment on above: Performed By: #### L [id number] #### [facility] ([facility]) [address] [place] [address] MCV (RBC) [Entitic vol] 97.0 fL Normal 82.0-98.0 [facility] Comment on above: Performed By: #### L [id number] #### [facility] (BEAKER) [address] [place] [address] PLATELETS (10*3/UL) IN BLOOD AUTOMATED COUNT 148 10*3/uL Low 150-400 [facility] Comment on above: Performed By: #### L [id number] #### [facility] (BEAKER) [address] [place] [address] RBC (Bld) [#/Vol] 3.99 10*6/uL Low 4.20-5.70 [facility] Comment on above: Performed By: #### L [id number] #### [facility] ([facility]) [address] [facility] [place] [address] WBC (Bld) [#/Vol] 7.82 10*3/uL Normal 4.00-10.60 [facility] Comment on above: Performed By: #### L [id number] #### [facility] ([facility]) [address] [place] [address] [facility] 11-17-2023 ANES -- Attestation signed by Sam Oscar MD at 11/18/2023 7:19 AM By using [...] Information Date: 11/17/23 Procedure: Implant PPM Location: [facility] (Cath) Providers: Nora Rivera MD Clinical information reviewed: Allergies Meds Physical Exam Airway Mallampati: III Cardiovascular Rhythm: regular Rate: normal Dental Pulmonary Breath sounds clear to auscultation Abdominal Abdomen: soft Anesthesia Plan Additional Equipment Requests Normal [facility] BASIC METABOLIC PANELon 10-23 Anion gap [Moles/Vol] 11 mmol/L Normal 7-20 [facility] Comment on above: Performed By: #### L [id number] #### [facility] ([facility]AKER) [address] [place] [address] Calcium [Mass/Vol] 8.0 mg/dL Low 8.6-10.3 [facility] Comment on above: Performed By: #### L [id number] #### [facility] ([facility]ER) [address] [place] [address] Chloride [Moles/Vol] 109 mmol/L High 98-107 [facility] Comment on above: Performed By: #### L [id number] #### [facility] (BEAKER) [address] [place] [address] CO2 [Moles/Vol] 25 mmol/L Normal 21-31 [facility] Comment on above: Performed By: #### L [id number] #### [facility] ([facility]ER) [address] [place] [address] Creatinine [Mass/Vol] 1.42 mg/dL High 0.70-1.30 [facility] Comment on above: Performed By: #### L [id number] #### [facility] ([facility]AKER) [address] [place] [address] GLOMERULAR FILTRATION RATE ML/MIN/1.73 SQ M.PREDICTED 48.4 mL/min/1.73m*2 Low >60.0 [facility] Comment on above: Result Comment: [facility]???s estimated glomerular filtration rate (eGFR) will [...] individuals. Performed By: #### L [id number] #### [facility] ([facility]) [address] [place] [address] Glucose [Mass/Vol] 169 mg/dL High 70-100 [facility] Comment on above: Performed By: #### L [id number] #### [facility] ([facility]) [address] [place] [address] Potassium [Moles/Vol] 4.3 mmol/L Normal 3.5-5.1 [facility] Comment on above: Performed By: #### L [id number] #### [facility] ([facility]) [address] [place] [address] Sodium [Moles/Vol] 141 mmol/L Normal 136-145 [facility] Comment on above: Performed By: #### L [id number] #### [facility] ([facility]) [address] [place] [address] Urea nitrogen [Mass/Vol] 33 mg/dL High 7-25 [facility] Comment on above: Performed By: #### L [id number] #### [facility] ([facility]) [address] [place] [address] UREA NITROGEN/CREATININ E (MASS RATIO) IN SER/PLAS 23.2 Normal [facility] Comment on above: Performed By: #### L [id number] #### [facility] ([facility]) [address] [place] [address] CBCon 11-17-2023 Erythrocyte distribution width (RBC) [Ratio] 14.9 % Normal 11.5-15.0 [facility] Comment on above: Performed By: #### L [id number] #### [facility] ([facility]) [address] [place] [address] ERYTHROCYTE MEAN CORPUSCULAR HEMOGLOBIN CONCENTRATION (G/DL) BY AUTOMATED 32.2 g/dL Normal 32.0-35.0 [facility] Comment on above: Performed By: #### L [id number] #### [facility] ([facility]) [address] [place] [address] Hematocrit (Bld) [Volume fraction] 39.5 % Normal 39.0-55.0 [facility] Comment on above: Performed By: #### L [id number] #### [facility] ([facility]) [address] [place] [address] Hemoglobin (Bld) [Mass/Vol] 12.7 g/dL Low 13.0-17.0 [facility] Comment on above: Performed By: #### L [id number] #### [facility] ([facility]) [address] [place] [address] MCH (RBC) [Entitic mass] 31.8 pg Normal 27.0-33.0 [facility] Comment on above: Performed By: #### L [id number] #### [facility] ([facility]) [address] [place] [address] MCV (RBC) [Entitic vol] 99.0 fL High 82.0-98.0 [facility] Comment on above: Performed By: #### L [id number] #### [facility] ([facility]) [address] [place] [address] PLATELETS (10*3/UL) IN BLOOD AUTOMATED COUNT 157 10*3/uL Normal 150-400 [facility] Comment on above: Performed By: #### L [id number] #### [facility] ([facility]) [address] [place] [address] RBC (Bld) [#/Vol] 3.99 10*6/uL Low 4.20-5.70 [facility] Comment on above: Performed By: #### L [id number] #### [facility] ([facility]) [address] [place] [address] WBC (Bld) [#/Vol] 9.04 10*3/uL Normal 4.00-10.60 [facility] Comment on above: Performed By: #### L [id number] #### [facility] ([facility]) [address] [place] [address] HEMOGLOBIN A1Con 11-17-2023 Glucose [Mass/Vol] 114 mg/dL Normal [facility] Comment on above: Order Comment: NO VA RIANT Performed By: #### L [id number] ####[facility] ([facility])[address] [place] [address] HbA1c (Bld) [Mass fraction] 5.6 % Normal 4.0-6.0 [facility] Comment on above: Order Comment: NO VA RIANT Performed By: #### L [id number] ####[facility] ([facility])[address] [place] [address] HPon 11-17-2023 HP -- Attestation signed by Sam Oscar MD at 11/18/2023 7:18 AM I discussed [...] placement of PPM in the AM. Normal [facility] LIPID PANELon 11-17-2023 CHOL/HDL 3.8 mg/dL Normal [facility] Comment on above: Performed By: #### L [id number] ####[facility] ([facility])[address] [place] [address] Cholesterol [Mass/Vol] 127 mg/dL Normal 120-200 [facility] Comment on above: Performed By: #### L [id number] ####[facility] ([facility])[address] [place] [address] Magnesium [Mass/Vol] 81 mg/dL Normal 40-149 [facility] Comment on above: Result Comment: TRIG LYCERIDE REFERENCE RANGE: 20 YEARS AND OLDER CARDIOVASCULAR RISK LESS THAN 150 mg/dL LOW RISK 150 TO 199 mg/dL BORDERLINE RISK 200 mg/dL AND GREATER HIGH RISK Performed By: #### L [id number] ####[facility] ([facility])[address] [facility] [place] [address] Magnesium [Mass/Vol] 78 mg/dL Normal 0-160 [facility] Comment on above: Performed By: #### L [id number] ####[facility] ([facility])[address] [facility] [place] [address] Magnesium [Mass/Vol] 33 mg/dL Normal 23-92 [facility] Comment on above: Performed By: #### L [id number] ####[facility] ([facility])[address] [place] [address] NON HDL CHOL. (LDL+VLDL) 94 Normal [facility] Comment on above: Performed By: #### L [id number] ####[facility] ([facility])[address] [place] [address] TOTAL VLDL-C 16 mg/dL Normal 0-40 [facility] Comment on above: Performed By: #### L [id number] ####[facility] ([facility])[address] [place] [address] LIPOPROTEIN A (LPA)on 2023 Magnesium [Mass/Vol] 23 mg/dL Normal <=29 [facility] Comment on above: Result Comment: Perf ormed By: [employer] [address] [place] [address] Tile Helper: Rivas Castillo MD, PhD CLIA Number: [id number] Performed By: #### L [id number] #### [facility] ([facility]) [address] [place] [address] MAGNESIUMon 11-17-2023 Magnesium [Mass/Vol] 2.0 mg/dL Normal 1.9-2.7 [facility] Comment on above: Performed By: #### L [id number] ####[facility] ([facility])[address] [place] [address] PHOSPHORUSon 11-17-2023 Magnesium [Mass/Vol] 3.1 mg/dL Normal 2.5-5.0 [facility] Comment on above: Performed By: #### L [id number] #### [facility] ([facility]) [address] [place] [address] 30on 11-16-2023 30 The patient is Moderately [...] or at baseline Outcome: Not Progressing Normal [facility] ANESon 11-16-2023 ANES Patient: Nat Moore [...] Additional Equipment Requests Jovita Sanchez MD, MPH, [facility], [facility] Interventional Cardiology Pager Email: [email or web address] Normal [facility] B-TYPE NATRIURETIC PEPTIDEon 11-16-2023 Natriuretic peptide B (Bld) [Mass/Vol] 103 pg/mL High 0-100 [facility] Comment on above: Performed By: #### L [id number] #### [facility] ([facility]) [address] [place] [address] BASIC METABOLIC PANELon 10-23 Anion gap [Moles/Vol] 10 mmol/L Normal 7-20 [facility] Comment on above: Performed By: #### L [id number] #### [facility] ([facility]) [address] [place] [address] Calcium [Mass/Vol] 8.2 mg/dL Low 8.6-10.3 [facility] Comment on above: Performed By: #### L [id number] #### [facility] ([facility]) [address] [place] [address] Chloride [Moles/Vol] 108 mmol/L High 98-107 [facility] Comment on above: Performed By: #### L [id number] #### [facility] ([facility]) [address] [place] [address] CO2 [Moles/Vol] 27 mmol/L Normal 21-31 [facility] Comment on above: Performed By: #### L [id number] #### [facility] ([facility]) [address] [place] [address] Creatinine [Mass/Vol] 1.53 mg/dL High 0.70-1.30 [facility] Comment on above: Performed By: #### L [id number] #### [facility] ([facility]) [address] [place] [address] GLOMERULAR FILTRATION RATE ML/MIN/1.73 SQ M.PREDICTED 44.3 mL/min/1.73m*2 Low >60.0 [facility] Comment on above: Result Comment: The [facility]???s estimated glomerular filtration rate (eGFR) will [...] individuals. Performed By: #### L [id number] #### [facility] ([facility]) [address] [place] [address] Glucose [Mass/Vol] 124 mg/dL High 70-100 [facility] Comment on above: Performed By: #### L [id number] #### [facility] ([facility]) [address] [place] [address] Potassium [Moles/Vol] 4.3 mmol/L Normal 3.5-5.1 [facility] Comment on above: Performed By: #### L [id number] #### [facility] ([facility]) [address] [place] [address] Sodium [Moles/Vol] 141 mmol/L Normal 136-145 [facility] Comment on above: Performed By: #### L [id number] #### [facility] ([facility]) [address] [place] [place] [address] Urea nitrogen [Mass/Vol] 31 mg/dL High 7-25 [facility] Comment on above: Performed By: #### L [id number] #### [facility] ([facility]) [address] [place] [address] UREA NITROGEN/CREATININ E (MASS RATIO) IN SER/PLAS 20.3 Normal [facility] Comment on above: Performed By: #### L [id number] #### [facility] ([facility]) [address] [place] [address] Anion gap [Moles/Vol] 10 mmol/L Normal 7-20 [facility] Comment on above: Performed By: #### L [id number] #### [facility] ([facility]) [address] [place] [address] Calcium [Mass/Vol] 8.1 mg/dL Low 8.6-10.3 [facility] Comment on above: Performed By: #### L [id number] #### [facility] ([facility]) [address] [place] [address] Chloride [Moles/Vol] 108 mmol/L High 98-107 [facility] Comment on above: Performed By: #### L [id number] #### [facility] ([facility]) [address] [place] [address] CO2 [Moles/Vol] 27 mmol/L Normal 21-31 [facility] Comment on above: Performed By: #### L [id number] #### [facility] ([facility]) [address] [place] [address] Creatinine [Mass/Vol] 1.40 mg/dL High 0.70-1.30 [facility] Comment on above: Performed By: #### L [id number] #### [facility] ([facility]) [address] [place] [address] GLOMERULAR FILTRATION RATE ML/MIN/1.73 SQ M.PREDICTED 49.3 mL/min/1.73m*2 Low >60.0 [facility] Comment on above: Result Comment: The [facility]???s estimated glomerular filtration rate (eGFR) will [...] individuals. Performed By: #### L [id number] #### [facility] ([facility]) [address] [place] [address] Glucose [Mass/Vol] 136 mg/dL High 70-100 [facility] Comment on above: Performed By: #### L [id number] #### [facility] ([facility]) [address] [place] [address] Potassium [Moles/Vol] 4.3 mmol/L Normal 3.5-5.1 [facility] Comment on above: Performed By: #### L [id number] #### [facility] ([facility]) [address] [place] [address] Sodium [Moles/Vol] 141 mmol/L Normal 136-145 [facility] Comment on above: Performed By: #### L [id number] #### [facility] ([facility]) [address] [place] [address] Urea nitrogen [Mass/Vol] 27 mg/dL High 7-25 [facility] Comment on above: Performed By: #### L [id number] #### [facility] ([facility]) [address] [place] [address] UREA NITROGEN/CREATININ E (MASS RATIO) IN SER/PLAS 19.3 Normal [facility] Comment on above: Performed By: #### L [id number] #### [facility] ([facility]) [address] [place] [address] CBCon 11-16-2023 Erythrocyte distribution width (RBC) [Ratio] 15.1 % High 11.5-15.0 [facility] Comment on above: Performed By: #### L [id number] #### [facility] ([facility]) [address] [place] [address] ERYTHROCYTE MEAN CORPUSCULAR HEMOGLOBIN CONCENTRATION (G/DL) BY AUTOMATED 32.4 g/dL Normal 32.0-35.0 [facility] Comment on above: Performed By: #### L [id number] #### [facility] ([facility]) [address] [place] [address] Hematocrit (Bld) [Volume fraction] 36.7 % Low 39.0-55.0 [facility] Comment on above: Performed By: #### L [id number] #### [facility] ([facility]) [address] [place] [address] Hemoglobin (Bld) [Mass/Vol] 11.9 g/dL Low 13.0-17.0 [facility] Comment on above: Performed By: #### L [id number] #### [facility] ([facility]) [address] [place] [address] MCH (RBC) [Entitic mass] 32.0 pg Normal 27.0-33.0 [facility] Comment on above: Performed By: #### L [id number] #### [facility] ([facility]) [address] [place] [address] MCV (RBC) [Entitic vol] 98.7 fL High 82.0-98.0 [facility] Comment on above: Performed By: #### L [id number] #### [facility] ([facility]) [address] [place] [address] PLATELETS (10*3/UL) IN BLOOD AUTOMATED COUNT 157 10*3/uL Normal 150-400 [facility] Comment on above: Performed By: #### L [id number] #### [facility] ([facility]) [address] [place] [address] RBC (Bld) [#/Vol] 3.72 10*6/uL Low 4.20-5.70 [facility] Comment on above: Performed By: #### L [id number] #### [facility] ([facility]) [address] [place] [address] WBC (Bld) [#/Vol] 8.83 10*3/uL Normal 4.00-10.60 [facility] Comment on above: Performed By: #### L [id number] #### [facility] ([facility]) [address] [place] [address] on 11-16-2023 H&P reviewed. Apparently this morning, [...] wishes to proceed. Jovita Sanchez MD, MPH, [facility], [facility] Interventional Cardiology Pager Email: [email or web address] Normal [facility] HP -- Attestation signed by Art [...] which are billed separately. Art Mckoy MD [facility] Pulmonary and Critical Care Medicine Adult ICU History & Physical Patient - Nat Moore Age - 83 y.o. - 1940 [facility] # - [id number] Date of Admission - 11/15/2023 2:42 PM Chief Complaint Syncope History of Present Illness Nat Moore is a an 83-year-old gentleman with PMH significant for type 2 diabetes mellitus, essential hypertension, hyperlipidemia, CKD stage IIIa, bilateral lower extremity edema on diuretic therapy, osteoarthritis, depression and mild cognitive impairment was initially admitted to the hospitalist service from [place] due to recurrent episodes of syncope secondary [...] his presenting complaints. During his stay in [place] ED he suddenly developed bradycardia prolonged sinus [...] of the abdomen with contrast done at [place] ED showed nonobstructive bowel gas pattern with [...] planning on taking the patient to the [facility] tomorrow for possible transvenous pacemaker placement. PMH: [...] sodium (C (more content not included)... Normal [facility] LACTIC ACID WITH 4 HOUR REFL EXon 11-16-2023 LACTATE (MMOL/L) IN SER/PLAS 1.2 mmol/L Normal 0.5-2.2 [facility] Comment on above: Performed By: #### L [id number] #### [facility] ([facility]) [address] [place] [address] MAGNESIUMon 11-16-2023 Magnesium [Mass/Vol] 2.1 mg/dL Normal 1.9-2.7 [facility] Comment on above: Performed By: #### L [id number] #### [facility] ([facility]) [address] [place] [address] Magnesium [Mass/Vol] 1.7 mg/dL Low 1.9-2.7 [facility] Comment on above: Performed By: #### L [id number] #### [facility] ([facility]) [address] [place] [address] PRO-BNPon 11-16-2023 Natriuretic peptide B (Bld) [Mass/Vol] 576 pg/mL High 0-300 [facility] Comment on above: Result Comment: An a ge-independent cutoff point of 300 pg/ml has a 98% negative predictive value excluding acute heart failure. Test Performed by [email or web address] [id number] [place] [address] - Released 11/16/2023 20:27 Performed By: #### L [id number] ####[facility] [id number] [place] [address] TSH3 REFLEX TO FT4on 024 THYROTROPIN (MIU/L) IN SER/PLAS BY DETECTION LIMIT <= 0.05 MIU/L 1.67 mIU/L Normal 0.34-5.60 [facility] Comment on above: Performed By: #### L [id number] #### [facility] ([facility]) [address] [place] [address] 30on 11-15-2023 30 The patient is Moderately [...] and maintained or improved Outcome: Progressing Normal [facility] CBCon 11-15-2023 Erythrocyte distribution width (RBC) [Ratio] 15.2 % High 11.5-15.0 [facility] Comment on above: Performed By: #### L [id number] ####[facility] ([facility])[address] [place] [address] ERYTHROCYTE MEAN CORPUSCULAR HEMOGLOBIN CONCENTRATION (G/DL) BY AUTOMATED 32.8 g/dL Normal 32.0-35.0 [facility] Comment on above: Performed By: #### L [id number] ####[facility] ([facility])[address] [place] [address] Hematocrit (Bld) [Volume fraction] 37.8 % Low 39.0-55.0 [facility] Comment on above: Performed By: #### L [id number] ####[facility] ([facility])[address] [place] [address] Hemoglobin (Bld) [Mass/Vol] 12.4 g/dL Low 13.0-17.0 [facility] Comment on above: Performed By: #### L [id number] ####[facility] ([facility])[address] [place], [place] [address] MCH (RBC) [Entitic mass] 31.9 pg Normal 27.0-33.0 [facility] Comment on above: Performed By: #### L [id number] ####[facility] ([facility])[address] [place] [address] MCV (RBC) [Entitic vol] 97.2 fL Normal 82.0-98.0 [facility] Comment on above: Performed By: #### L [id number] ####[facility] ([facility])[address] [place] [address] PLATELETS (10*3/UL) IN BLOOD AUTOMATED COUNT 172 10*3/uL Normal 150-400 [facility] Comment on above: Performed By: #### L [id number] ####[facility] ([facility])[address] [place] [address] RBC (Bld) [#/Vol] 3.89 10*6/uL Low 4.20-5.70 [facility] Comment on above: Performed By: #### L [id number] ####[facility] ([facility])[address] [place] [address] WBC (Bld) [#/Vol] 8.89 10*3/uL Normal 4.00-10.60 [facility] Comment on above: Performed By: #### L [id number] ####[facility] ([facility])[address] [place] [address] COMPREHENSIVE METABOLIC PANE Dmitri 11-15-2023 Albumin [Mass/Vol] 3.7 g/dL Normal 3.5-5.7 [facility] Comment on above: Performed By: #### L [id number] #### [facility] ([facility]) [address] [place] [address] ALP [Catalytic activity/Vol] 70 U/L Normal 34-104 [facility] Comment on above: Performed By: #### L [id number] #### [facility] ([facility]) [address] [place] [address] ALT [Catalytic activity/Vol] 7 U/L Normal 7-52 [facility] Comment on above: Performed By: #### L [id number] #### [facility] ([facility]) [address] [place] [address] Anion gap [Moles/Vol] 9 mmol/L Normal 7-20 [facility] Comment on above: Performed By: #### L [id number] #### [facility] ([facility]) [address] [place] [address] AST [Catalytic activity/Vol] 11 U/L Low 13-39 [facility] Comment on above: Performed By: #### L [id number] #### [facility] ([facility]) [address] [place] [address] Bilirubin [Mass/Vol] 0.6 mg/dL Normal 0.3-1.0 [facility] Comment on above: Performed By: #### L [id number] #### [facility] ([facility]) [address] [place] [address] Calcium [Mass/Vol] 8.2 mg/dL Low 8.6-10.3 [facility] Comment on above: Performed By: #### L [id number] #### [facility] ([facility]) [address] [place] [address] Chloride [Moles/Vol] 107 mmol/L Normal 98-107 [facility] Comment on above: Performed By: #### L [id number] #### [facility] ([facility]) [address] [place] [address] CO2 [Moles/Vol] 29 mmol/L Normal 21-31 [facility] Comment on above: Performed By: #### L [id number] #### [facility] ([facility]) [address] [place] [address] Creatinine [Mass/Vol] 1.37 mg/dL High 0.70-1.30 [facility] Comment on above: Performed By: #### L [id number] #### [facility] ([facility]) [address] [place] [address] GLOMERULAR FILTRATION RATE ML/MIN/1.73 SQ M.PREDICTED 50.6 mL/min/1.73m*2 Low >60.0 [facility] Comment on above: Result Comment: The [facility]???s estimated glomerular filtration rate (eGFR) will [...] individuals. Performed By: #### L [id number] #### [facility] ([facility]) [address] [place] [address] Glucose [Mass/Vol] 120 mg/dL High 70-100 [facility] Comment on above: Performed By: #### L [id number] #### [facility] ([facility]) [address] [place] [address] Potassium [Moles/Vol] 4.1 mmol/L Normal 3.5-5.1 [facility] Comment on above: Performed By: #### L [id number] #### [facility] ([facility]) [address] [place] [address] Protein [Mass/Vol] 6.0 g/dL Normal 6.0-8.3 [facility] Comment on above: Performed By: #### L [id number] #### [facility] ([facility]) [address] [place] [place] [address] Sodium [Moles/Vol] 141 mmol/L Normal 136-145 [facility] Comment on above: Performed By: #### L [id number] #### [facility] ([facility]) [address] [facility] [address] Urea nitrogen [Mass/Vol] 26 mg/dL High 7-25 [facility] Comment on above: Performed By: #### L [id number] #### [facility] ([facility]) [address] [place] [address] UREA NITROGEN/CREATININ E (MASS RATIO) IN SER/PLAS 19.0 Normal [facility] Comment on above: Performed By: #### L [id number] #### [facility] ([facility]) [address] [place] [address] CONSULTon 11-15-2023 CONSULT Division of Cardiovascular Medicine Interventional Cardiology Consult Chief Complaint: Transfer from [place] HPI: 83 yo with h/o HTN, CKD, dyslipidemia presented to [facility] with c/o chest and back pain. While being evaluated he had episodes of prolonged sinus pauses (12-18 sec?) with loss of consciousness and vomiting. He was Life flighted to [facility]. On arrival , I evaluated [...] infarctions or CHF. Does not see a skein bander. Patient Active Problem List Diagnosis Syncope and [...] plan on (more content not included)... Normal [facility] CT HEAD WO IV CONTRASTon CT [...] GAGANDEEP CLAUDIO MD. 3 Invalid Interpretation Code [facility] HPon 11-15-2023 Division of Cardiovascular Medicine Interventional Cardiology Consult Chief Complaint: Transfer from [place] HPI: 83 yo with h/o HTN, CKD, dyslipidemia presented to [facility] with c/o chest and back pain. While being evaluated he had episodes of prolonged sinus pauses (12-18 sec?) with loss of consciousness and vomiting. He was Life [facility]ed to [facility]. On arrival , I evaluated [...] infarctions or CHF. Does not see a skein bander. Patient Active Problem List Diagnosis Syncope and [...] plan on (more content not included)... Normal [facility] MAGNESIUMon 11-15-2023 Magnesium [Mass/Vol] 1.7 mg/dL Low 1.9-2.7 [facility] Comment on above: Performed By: #### L [id number] #### [facility] ([facility]) [address] [place] [address] NURSNOTEon 11-15-2023 ELIEL Anesthesia Resident reach out to Cardiology (Dr. Figueroa) to notify her of the pt transferring to MICU due to change in condition and code blue being called. She asked if the patient was paced at bedside and nurse replied no but pt was transferred and will be paced in MICU. [facility] ELIEL Anesthesia Resident attempted to reach out to family via home number in chart and it wasn't in service. Charge nurse MIGUEL Lloyd was notified and MICU was notified as well by MIGUEL Lloyd. [facility] ELIEL Bedside report given to MIGUEL Ghosh prior to transfer to MICU due to change in condition and code blue being called for asystole lasting 10.19 seconds. Normal [facility] ELIEL Spoke with Dr. Wendy dominguez [...] done and we'll go from there. Normal [facility] TROPONIN Ion 11-15-2023 Troponin I.cardiac [Mass/Vol] 0.01 ng/mL Normal 0.00-0.04 [facility] Comment on above: Performed By: #### L [id number] #### [facility] ([facility]) [address] [place] [address] Urology Office/Clinic Noteon 11-12-2023 Urology Office/Clinic Note [...] call if too cost prohibitive, sent to [employer]illian sanchez -f/up in 3 mos 2. BPH [...] 3 mos Patient Education Overactive Bladder, Adult Bob Aguirre, personally scribed for RAUL Salmon on 11/11/2023 [...] 23-valent vac (more content not included)... Normal [facility] Comment on above: Result Comment: Elec [...] 12:30 PM EST With: RAUL Ingram APRN, Marianela Rodriguez Where: [facility] [address] [place] [address] You Need to Schedule the Following Appointments Follow Up with RAUL Ingram APRN, Marianela Rodriguez, RIANNA, URL When: Comments: f/up in 3 [...] Leaking ur (more content not included)... Normal [facility] Patient Letter [facility] October 14, 2023 NAT MOORE [address] [place] [address] [address] [place] [address] : 1940 Dear Nat, You missed your [...] any future cancellations. Sincerely, [facility] [address] [facility], [place] [address] [facility] Patient Letter FTMCon 2023 Patient Letter FT May 13, 2023 JOHNSASHELY MOORE [address] [facility] [address] [place] [address] : 1940 Dear Nat, You missed your [...] any future cancellations. Sincerely, [facility] [address] [facility], [place] [address] [facility] BNPon 07-27-2022 Natriuretic peptide B (Bld) [Mass/Vol] 178.0 pg/mL Normal <=1,800.0 [facility] Comment on above: Performed By: #### C MP, BNP, CMADM #### [facility] [address] [place], [place] [address] Dr. Loyd Parks CARDIAC SPARKLE ADMITon 023 CK [Catalytic activity/Vol] 50 U/L Normal 39-308 [facility] Comment on above: Performed By: #### C MP, BNP, CMADM #### [facility] [address] [place] [address] [address] Loyd Parks CK.MB [Mass/Vol] 0.83 ng/mL Normal <=3.60 [facility] Comment on above: Performed By: #### C MP, BNP, CMADM #### [facility] [address] [place] [address] Dr. Loyd Parks HSTROP 6.3 pg/mL Normal 4.0-76.1 [facility] Comment on above: Result Comment: CUT- OFF POINTS HAVE BEEN ESTABLISHED BASED ON THE FOURTH UNIVERSAL DEFINITIONS OF MYOCARDIAL INFARCTION. THE UPPER REFERENCE LIMIT (URL) OF TROPONIN, DEFINED THE 99TH PERCENTILE OF cTnI DISTRIBUTION IN A REFERENCE POPULATION, HAS BEEN CONFIRMED THE DECISION THRESHOLD FOR ND DIAGNOSIS. Performed By: #### C MP, BNP, CMADM #### [facility] [address] [place] [address] Dr. Loyd Parks WM 121 ng/mL Critically high 16-96 [facility] Comment on above: Performed By: #### C MP, BNP, CMADM #### [facility] [address] [place] [address] Dr. Loyd Parks CBC AUTO DIFFon 07-27-2022 BASO # 0.1 103/ul Normal 0.0-0.1 [facility] Comment on above: Performed By: #### C BC #### [facility] [address] [place] [address] Dr. Loyd Parks Basophils/100 WBC (Bld) 0.6 % Normal 0.2-2.0 [facility] Comment on above: Performed By: #### C BC #### [facility] [address] [place] [address] [address] Loyd Parks EO # 0.5 103/ul Normal 0.0-0.7 [facility] Comment on above: Performed By: #### C BC #### [facility] [address] [place] [address] Dr. Loyd Parks Eosinophils/100 WBC (Bld) 4.8 % Normal 0.9-7.0 [facility] Comment on above: Performed By: #### C BC #### [facility] [address] [place] [address] Dr. Loyd Parks Erythrocyte distribution width (RBC) [Ratio] 13.5 % Normal 11.0-15.0 [facility] Comment on above: Performed By: #### C BC #### [facility] [address] [place] [address] Dr. Loyd Parks Hematocrit (Bld) [Volume fraction] 39.7 % Critically low 42.0-54.0 [facility] Comment on above: Performed By: #### C BC #### [facility] [address] [place] [address] Dr. Loyd Parks Hemoglobin (Bld) [Mass/Vol] 13.1 g/dL Critically low 14.0-18.0 [facility] Comment on above: Performed By: #### C BC #### [facility] [address] [place] [address] Dr. Loyd Parks IG # 0.05 10e3/ul Critically high 0.00-0.03 [facility] Comment on above: Performed By: #### C BC #### [facility] [address] [place] [address] Dr. Loyd Parks IG % 0.5 % Normal 0.0-0.5 [facility] Comment on above: Performed By: #### C BC #### [facility] [address] [place] [address] Dr. Loyd Parks LYMPH # 1.4 103/ul Normal 1.2-3.8 [facility] Comment on above: Performed By: #### C BC #### [facility] [address] [place] [address] Dr. Loyd Parks Lymphocytes/100 WBC (Bld) 14.1 % Critically low 20.5-60.0 [facility] Comment on above: Performed By: #### C BC #### [facility] [address] [place] [address] Dr. Loyd Parks MANUAL DIFF REQ NO Normal [facility] Comment on above: Performed By: #### C BC #### [facility] [address] [place] [address] [address] Loyd Parks MCH (RBC) [Entitic mass] 31.6 pg Normal 25.9-34.0 [facility] Comment on above: Performed By: #### C BC #### [facility] [address] [place] [address] Dr. Loyd Parks MCHC (RBC) [Mass/Vol] 33.0 g/dL Normal 29.9-35.2 [facility] Comment on above: Performed By: #### C BC #### [facility] [address] [place] [address] Dr. Loyd Parks MCV (RBC) [Entitic vol] 95.7 fL Critically high 80.0-94.0 [facility] Comment on above: Performed By: #### C BC #### [facility] [address] [place] [address] Dr. Lody Parks MONO # 1.0 103/ul Critically high 0.3-0.8 [facility] Comment on above: Performed By: #### C BC #### [facility] [address] [place] [address] Dr. Loyd Parks Monocytes/100 WBC (Bld) 9.7 % Normal 1.7-12.0 [facility] Comment on above: Performed By: #### C BC #### [facility] [address] [place] [address] Dr. Loyd Parks NEUT # 7.2 103/ul Critically high 1.4-6.5 [facility] Comment on above: Performed By: #### C BC #### [facility] [address] [place] [address] Dr. Loyd Parks Neutrophils/100 WBC (Bld) 70.3 % Normal 43.0-75.0 [facility] Comment on above: Performed By: #### C BC #### [facility] [address] [place] [address] Dr. Loyd Parks Platelet mean volume (Bld) [Entitic vol] 10.8 fL Normal 9.5-13.5 [facility] Comment on above: Performed By: #### C BC #### [facility] [address] [place] [address] [address] Loyd Parks PLT 199 103/ul Normal 150-450 [facility] Comment on above: Performed By: #### C BC #### [facility] [address] [place] [id number] Loyd Parks RBC 4.15 106/ul Critically low 4.70-6.10 [facility] Comment on above: Performed By: #### C BC #### [facility] [address] [place] [address] [address] Loyd Parks WBC 10.2 103/ul Normal 4.0-11.0 [facility] Comment on above: Performed By: #### C BC #### [facility] [address] [place] [address] Dr. Loyd Parks CULTURE BLOODon 07-27-2022 Microscopic examination of blood, culture Culture Observations: NO GROWTH AT 5 DAYS. Normal [facility] Comment on above: Performed By: #### E RUR #### [facility] [address] [place] [address] [address] Loyd Parks Covid-19 PCR (CVDTB)on SARS-CoV-2 (COVID-19) RNA SAUNDRA+probe Ql (Unsp spec) Not detected Normal NOT DETECTED [facility] Comment on above: Result Comment: This test is not yet approved or cleared by the [place] FDA. When there are no FDA-approved or cleared tests available, and other criteria are met, FDA can make tests available under an emergency access mechanism called an Emergency Use Authorization (EUA). The EUA for this test is supported by the Flow Worker of Health and Human Service's (HHS's) declaration [...] SARS-CoV-2. Performed By: #### E RUR #### [facility] [address] [place] [address] Dr. Loyd Parks LACTATE/LACTIC ACIDon 2022 Lactate [Moles/Vol] 2.2 mmol/L Critically high 0.4-2.0 [facility] Comment on above: Performed By: #### C MP, BNP, CMADM #### [facility] [address] [place] [address] Dr. Loyd Parks PROF 14(COMP METB)on 023 Albumin [Mass/Vol] 3.3 g/dL Critically low 3.4-5.0 [facility] Comment on above: Performed By: #### C MP, BNP, CMADM #### [facility] [address] [place] [address] Dr. Loyd Parks Albumin/Globulin [Mass ratio] 0.9 {ratio} Normal [facility] Comment on above: Performed By: #### C MP, BNP, CMADM #### [facility] [address] [place] [address] Dr. Loyd Parks ALP [Catalytic activity/Vol] 91 U/L Normal 46-116 [facility] Comment on above: Performed By: #### C MP, BNP, CMADM #### [facility] [address] [place] [address] Dr. Loyd Praks ALT [Catalytic activity/Vol] 18 U/L Normal 16-63 [facility] Comment on above: Performed By: #### C MP, BNP, CMADM #### [facility] [address] [place] [address] Dr. Loyd Parks Anion gap [Moles/Vol] 12.2 mmol/L Normal [facility] Comment on above: Performed By: #### C MP, BNP, CMADM #### [facility] [address] [place] [address] Dr. Loyd Parks AST [Catalytic activity/Vol] 15 U/L Normal 15-37 [facility] Comment on above: Performed By: #### C MP, BNP, CMADM #### [facility] [address] [place] [address] [address] Loyd Parks Bilirubin [Mass/Vol] 0.4 mg/dL Normal 0.2-1.0 [facility] Comment on above: Performed By: #### C MP, BNP, CMADM #### [facility] [address] [place] [address] [address] Loyd Parks Calcium [Mass/Vol] 8.7 mg/dL Normal 8.5-10.1 [facility] Comment on above: Performed By: #### C MP, BNP, CMADM #### [facility] [address] [place] [address] Dr. Loyd Parks Chloride [Moles/Vol] 105 mmol/L Normal 98-107 [facility] Comment on above: Performed By: #### C MP, BNP, CMADM #### [facility] [address] [place] [address] Dr. Loyd Parks CO2 [Moles/Vol] 28.0 mmol/L Normal 21.0-32.0 [facility] Comment on above: Performed By: #### C MP, BNP, CMADM #### [facility] [address] [place] [address] Dr. Loyd Parks Creatinine [Mass/Vol] 2.25 mg/dL Critically high 0.70-1.30 [facility] Comment on above: Performed By: #### C MP, BNP, CMADM #### [facility] [address] [place] [address] Dr. Loyd Parks EGFR-AF SOUTH AFRICAN 34 mL/min/1.73m2 Critically low >=60 [facility] Comment on above: Performed By: #### C MP, BNP, CMADM #### [facility] [address] [place] [address] Dr. Loyd Parks EGFR-NON AF SOU[place]FR[place] 28 mL/min/1.73m2 Critically low >=60 [facility] Comment on above: Performed By: #### C MP, BNP, CMADM #### [facility] [address] [place] [address] [address] Loyd Parks Globulin (S) [Mass/Vol] 3.8 g/dL Normal [facility] Comment on above: Performed By: #### C MP, BNP, CMADM #### [facility] [address] [place] [address] [address] Loyd Parks Glucose [Mass/Vol] 88 mg/dL Normal 74-106 [facility] Comment on above: Performed By: #### C MP, BNP, CMADM #### [facility] [address] [place] [address] Dr. Loyd Parks Potassium [Moles/Vol] 4.2 mmol/L Normal 3.5-5.1 [facility] Comment on above: Performed By: #### C MP, BNP, CMADM #### [facility] [address] [place] [address] Dr. Loyd Parks Protein [Mass/Vol] 7.1 g/dL Normal 6.4-8.2 [facility] Comment on above: Performed By: #### C MP, BNP, CMADM #### [facility] [address] [address] [address] Loyd Parks Sodium [Moles/Vol] 141 mmol/L Normal 136-145 [facility] Comment on above: Performed By: #### C MP, BNP, CMADM #### [facility] [address] [place] [address] Dr. Loyd Parks Urea nitrogen [Mass/Vol] 36.0 mg/dL Critically high 7.0-18.0 [facility] Comment on above: Performed By: #### C MP, BNP, CMADM #### [facility] [address] [place] [address] [address] Loyd Parks Urea nitrogen/Creatinin e [Mass ratio] 16.0 mg/mg Normal [facility] Comment on above: Performed By: #### C MP, BNP, CMADM #### [facility] [address] [place] [address] Dr. Loyd Parks PROTIMEon 07-27-2022 INR Coag (PPP) [Relative time] 0.95 {INR} Normal [facility] Comment on above: Performed By: #### P T, PTT #### [facility] [address] [place] [address] Dr. Loyd Parks INR GUIDELINES SEE BELOW Normal [facility] Comment on above: Result Comment: MARIE RED INR: 2.0 - 3.0 CONDITIONS NOT LISTED BELOW 2.5 - 3.5 FOR PROSTHETIC HEART VALVE REPLACEMENT 2.5 - 3.5 RECURRENT THROMBOSIS Performed By: #### P T, PTT #### [facility] [address] [place] [address] Dr. Loyd Parks PT Coag (PPP) [Time] 10.1 s Normal 9.0-11.6 [facility] Comment on above: Performed By: #### P T, PTT #### [facility] [address] [place] [address] Dr. Loyd Parks PTTon 07-27-2022 aPTT Coag (Bld) [Time] 27.3 s Normal 22.3-36.2 [facility] Comment on above: Performed By: #### P T, PTT #### [facility] [address] [place] [address] Dr. Loyd Parks SYMPTOMATIC COVID-19 ANTIGEN on 07-27-2022 EUA Statement SEE BELOW Normal [facility] Comment on above: Result Comment: This [...] sooner. Performed By: #### C VDAGS #### [facility] [address] [place] [address] Dr. Loyd Parks SARS-CoV-2 (COVID-19) RNA SAUNDRA+probe Ql (Unsp spec) Negative Normal NEGATIVE [facility] Comment on above: Performed By: #### C VDAGS #### [facility] [address] [place] [address] Dr. Loyd Parks XR CHEST 2 Von [...] ELIUD KAUR Date: 2022-07-26 22:19 Normal [facility] POINT OF CARE GLUCOSEon 03-25 Glucose [Mass/Vol] 102 mg/dL Normal 74-106 [facility] Comment on above: Performed By: #### C MP, BNP, CMADM #### [facility] [address] [place] [address] Dr. Loyd Parks ER URINE PROFILEon 2 Bilirubin Ql (U) Negative Normal NEGATIVE [facility] Comment on above: Performed By: #### E RUR #### [facility] [address] [place] [address] Dr. Loyd Parks Clarity (U) CLEAR Normal CLEAR [facility] Comment on above: Performed By: #### E RUR #### [facility] [address] [place] [address] Dr. Loyd Parks Color (U) LT. YELLOW Normal YELLOW [facility] Comment on above: Performed By: #### E RUR #### [facility] [address] [place] [address] Dr. Loyd CONWAY A micrscopic examination will be performed if indicated. Normal [facility] Comment on above: Performed By: #### E RUR #### [facility] [address] [place] [address] Dr. Loyd Parks Glucose Ql (U) 100 mg/dl Abnormal NEGATIVE [facility] Comment on above: Performed By: #### E RUR #### [facility] [address] [place] [address] Dr. Loyd Parks Hemoglobin Ql (U) Negative Normal NEGATIVE [facility] Comment on above: Performed By: #### E RUR #### [facility] [address] [place] [address] Dr. Loyd Parks Ketones Ql (U) Negative Normal NEGATIVE [facility] Comment on above: Performed By: #### E RUR #### [facility] [address] [place] [address] Dr. Loyd Parks LEUKOCYTES Negative Normal NEGATIVE [facility] Comment on above: Performed By: #### E RUR #### [facility] [address] [place] [address] Dr. Loyd Parks Nitrite Ql (U) Negative Normal NEGATIVE [facility] Comment on above: Performed By: #### E RUR #### [facility] [address] [place] [address] Dr. Loyd Parks pH (U) 5.5 [pH] Normal 5-9 [facility] Comment on above: Performed By: #### E RUR #### [facility] [address] [place] [address] Dr. Loyd Parks SPEC GRAVITY 1.015 Normal 1.005-<=1.025 [facility] Comment on above: Performed By: #### E RUR #### [facility] [address] [place] [address] Dr. Loyd Parks UA PROTEIN Negative Normal NEGATIVE/ TRACE [facility] Comment on above: Performed By: #### E RUR #### [facility] [address] [place] [address] Dr. Loyd Parks UR MICRO IND NOT INDICATED Normal [facility] Comment on above: Performed By: #### E RUR #### [facility] [address] [place] [address] Dr. Loyd Parks Urobilinogen Qn (U) 0.2 {Malcolm'U}/dL Normal 0.2 - 1.0 [facility] Comment on above: Performed By: #### E RUR #### [facility] [address] [place] [address] Dr. Loyd Parks GROUP A STREP CULTUREon 02-21 S. pyogenes Ag Ql (Unsp spec) Culture Observations: NEGATIVE FOR GROUP A STREPTOCOCCUS. Normal [facility] Comment on above: Performed By: #### S SCRN, GRASTCX #### [facility] [address] [place] [address] Dr. Loyd Parks STREPT SCREENon 03-03-2022 STREP SCREEN A Negative Normal NEGATIVE [facility] Comment on above: Performed By: #### S SCRN, GRASTCX #### [facility] [address] [place] [address] Dr. Loyd Parks Covid-19 PCR ([facility])on SARS-CoV-2 (COVID-19) RNA SAUNDRA+probe Ql (Unsp spec) Not detected Normal NOT DETECTED [facility] Comment on above: Result Comment: This test is not yet approved or cleared by the [place] FDA. When there are no FDA-approved or cleared tests available, and other criteria are met, FDA can make tests available under an emergency access mechanism called an Emergency Use Authorization (EUA). The EUA for this test is supported by the [place] of Health and Human Service's (HHS's) declaration [...] By: #### C MP, BNP, CMADM #### [facility] [address] [place] [address] Dr. Loyd Parks POINT OF CARE GLUCOSEon 10-1 Glucose [Mass/Vol] 133 mg/dL Critically high 74-106 [facility] Comment on above: Performed By: #### E RUR #### [facility] [address] [place], [place] [address] Dr. Loyd Parks POINT OF CARE GLUCOSEon 09-0 Glucose [Mass/Vol] 75 mg/dL Normal 74-106 [facility] Comment on above: Performed By: #### E RUR #### [facility] [address] [place] [address] [address] ABD/PELVIS WO CONon [...] SAURABH SINGH Date: 2021-09-03 08:35 Normal [facility] ER URINE PROFILEon 2 Bilirubin Ql (U) Negative Normal NEGATIVE [facility] Comment on above: Performed By: #### E RUR #### [facility] [address] [place] [address] Dr. Loyd Parks Clarity (U) CLEAR Normal CLEAR [facility] Comment on above: Performed By: #### E RUR #### [facility] [address] [place] [address] Dr. Loyd Parks Color (U) LT. YELLOW Normal YELLOW [facility] Comment on above: Performed By: #### E RUR #### [facility] [address] [place] [address] Dr. Loyd CONWAY A micrscopic examination will be performed if indicated. Normal [facility] Comment on above: Performed By: #### E RUR #### [facility] [address] [address] [address] Loyd Parks Glucose Ql (U) >1000 Abnormal NEGATIVE [facility] Comment on above: Performed By: #### E RUR #### [facility] [address] [place] [address] Dr. Loyd Parks Hemoglobin Ql (U) Negative Normal NEGATIVE [facility] Comment on above: Performed By: #### E RUR #### [facility] [address] [place] [address] Dr. Loyd Parks Ketones Ql (U) Negative Normal NEGATIVE [facility] Comment on above: Performed By: #### E RUR #### [facility] [address] [place] [address] Dr. Loyd Pakrs LEUKOCYTES Negative Normal NEGATIVE [facility] Comment on above: Performed By: #### E RUR #### [facility] [address] [place] [address] Dr. Loyd Parks Nitrite Ql (U) Negative Normal NEGATIVE [facility] Comment on above: Performed By: #### E RUR #### [facility] [address] [place] [address] Dr. Loyd Parks pH (U) 6.0 [pH] Normal 5-9 [facility] Comment on above: Performed By: #### E RUR #### [facility] [address] [place] [address] Dr. Loyd Parks SPEC GRAVITY 1.010 Normal 1.005-<=1.025 [facility] Comment on above: Performed By: #### E RUR #### [facility] [address] [place] [address] Dr. Loyd Parks UA PROTEIN Negative Normal NEGATIVE/ TRACE [facility] Comment on above: Performed By: #### E RUR #### [facility] [address] [place] [address] Dr. Loyd Parks UR MICRO IND NOT INDICATED Normal [facility] Comment on above: Performed By: #### E RUR #### [facility] [address] [place] [address] Dr. Loyd Parks Urobilinogen Qn (U) 0.2 {Malcolm'U}/dL Normal 0.2 - 1.0 [facility] Comment on above: Performed By: #### E RUR #### [facility] [address] [place] [address] Dr. Loyd Parks ALCOHOLon 07-31-2020 Ethanol [Mass/Vol] mg/dL Normal [facility] Comment on above: Result Comment: FOR MEDICAL USE ONLY. . REF VALUES <10 Performed By: #### A LC ####[facility] [facility] [place] [address] CBC AND DIFFERENTIALon 07-31 % AUTOMATED IMMATURE GRAN 0.4 % Normal 0.0 - 0.9 [facility] Comment on above: Result Comment: Rylie ture Granulocyte Count (IG) includes promyelocytes, myelocytes and metamyelocytes but does not include bands. Percent differential counts (%) should be interpreted in the context of the absolute cell counts (cells/L). Performed By: #### C BCDF #### [facility] [address] [place] [address] Basophils (Bld) [#/Vol] 0.05 10*3/uL Normal 0.00 - 0.10 [facility] Comment on above: Performed By: #### C BCDF #### [facility] [address] [place] [address] Basophils/100 WBC (Bld) 0.6 % Normal 0.0 - 2.0 [facility] Comment on above: Performed By: #### C BCDF #### [facility] [address] [place] [address] Eosinophils (Bld) [#/Vol] 0.21 10*3/uL Normal 0.00 - 0.40 [facility] Comment on above: Performed By: #### C BCDF #### [facility] [address] [place] [address] Eosinophils/100 WBC (Bld) 2.4 % Normal 0.0 - 6.0 [facility] Comment on above: Performed By: #### C BCDF #### [facility] [address] [place] [address] Erythrocyte distribution width (RBC) [Ratio] 13.2 % Normal 11.5 - 14.5 [facility] Comment on above: Performed By: #### C BCDF #### [facility] [address] [place] [address] Hematocrit (Bld) [Volume fraction] 50.0 % Normal 41.0 - 52.0 [facility] Comment on above: Performed By: #### C BCDF #### [facility] [address] [facility] [address] Hemoglobin (Bld) [Mass/Vol] 17.3 g/dL Normal 13.5 - 17.5 [facility] Comment on above: Performed By: #### C BCDF #### [facility] [address] [facility] [address] Lymphocytes (Bld) [#/Vol] 1.59 10*3/uL Normal 0.80 - 3.00 [facility] Comment on above: Performed By: #### C BCDF #### [facility] [address] [facility] [address] Lymphocytes/100 WBC (Bld) 17.9 % Normal 13.0 - 44.0 [facility] Comment on above: Performed By: #### C BCDF #### [facility] [address] [place] [address] MCHC (RBC) [Mass/Vol] 34.6 g/dL Normal 32.0 - 36.0 [facility] Comment on above: Performed By: #### C BCDF #### [facility] [address] [place] [address] MCV (RBC) [Entitic vol] 89 fL Normal 80 - 100 [facility] Comment on above: Performed By: #### C BCDF #### [facility] [address] [place] [address] Monocytes (Bld) [#/Vol] 0.82 10*3/uL High 0.05 - 0.80 [facility] Comment on above: Performed By: #### C BCDF #### [facility] [address] [place] [address] Monocytes/100 WBC (Bld) 9.2 % Normal 2.0 - 10.0 [facility] Comment on above: Performed By: #### C BCDF #### [facility] [address] [place] [address] Neutrophils (Bld) [#/Vol] 6.18 10*3/uL High 1.60 - 5.50 [facility] Comment on above: Performed By: #### C BCDF #### [facility] [address] [facility] [place] [address] Neutrophils/100 WBC (Bld) 69.5 % Normal 40.0 - 80.0 [facility] Comment on above: Performed By: #### C BCDF #### [facility] [address] [place] [address] Platelets (Bld) [#/Vol] 215 10*3/uL Normal 150 - 450 [facility] Comment on above: Performed By: #### C BCDF #### [facility] [address] [place] [address] RBC 5.59 x10E12/L Normal 4.50 - 5.90 [facility] Comment on above: Performed By: #### C BCDF #### [facility] [address] [place] [address] WBC (Bld) [#/Vol] 8.9 10*3/uL Normal 4.4 - 11.3 [facility] Comment on above: Performed By: #### C BCDF #### [facility] [address] [place] [address] CHEST 1 VIEWon 07-31-2020 CHEST 1 VIEW STUDY: Chest Radiograph; 07/30/2020 10:53 PM INDICATION: Shortness of breath. COMPARISON: None available. ACCESSION NUMBER(S): [id number] ORDERING CLINICIAN: ZAID CUELLAR DO TECHNIQUE: Frontal chest was obtained at 2355 hours. FINDINGS: CARDIOMEDIASTINAL SILHOUETTE: Cardiomediastinal silhouette is normal in size and configuration. LUNGS: Lungs are clear. ABDOMEN: No remarkable upper abdominal findings. BONES: No acute osseous changes. IMPRESSION: No acute pulmonary abnormality. Signed by Rodrick Anna MD Electronically signed by: RODRICK ANNA MD Normal [facility] COMPREHENSIVE PANELon 2020 Albumin [Mass/Vol] 3.7 g/dL Normal 3.4 - 5.0 [facility] Comment on above: Performed By: #### C MP ####[facility] [place] [address] ALP [Catalytic activity/Vol] 80 U/L Normal 33 - 136 [facility] Comment on above: Performed By: #### C MP ####[facility] [place] [address] ALT [Catalytic activity/Vol] 12 U/L Normal 10 - 52 [facility] Comment on above: Result Comment: Jade ents treated with Sulfasalazine may generate falsely decreased results for ALT. Performed By: #### C MP ####[facility] [facility] [place] [address] Anion gap [Moles/Vol] 13 mmol/L Normal 10 - 20 [facility] Comment on above: Performed By: #### C MP ####[facility] [facility] [place] [address] AST [Catalytic activity/Vol] 12 U/L Normal 9 - 39 [facility] Comment on above: Performed By: #### C MP ####[facility] [facility] [address] Bilirubin [Mass/Vol] 0.7 mg/dL Normal 0.0 - 1.2 [facility] Comment on above: Performed By: #### C MP ####[facility] [place] [address] Calcium [Mass/Vol] 9.2 mg/dL Normal 8.6 - 10.3 [facility] Comment on above: Performed By: #### C MP ####[facility] [facility] [address] Chloride [Moles/Vol] 101 mmol/L Normal 98 - 107 [facility] Comment on above: Performed By: #### C MP ####[facility] [place] [address] Creatinine [Mass/Vol] 1.36 mg/dL High 0.50 - 1.30 [facility] Comment on above: Performed By: #### C MP ####[facility] [place] [address] GFR- AM. 61 mL/min/1.73m2 Normal >60 [facility] Comment on above: Result Comment: CALC ULATIONS OF ESTIMATED GFR ARE PERFORMED USING THE MDRD STUDY EQUATION FOR THE IDMS-TRACEABLE CREATININE METHODS. CLIN CHEM 2007;53:766-72 Performed By: #### C MP ####[facility] [facility] [place] [address] GFR-NON AM. 50 mL/min/1.73m2 Abnormal >60 [facility] Comment on above: Performed By: #### C MP ####[facility] [place] [address] Glucose [Mass/Vol] 390 mg/dL High 74 - 99 [facility] Comment on above: Performed By: #### C MP ####[facility] [place] [address] HCO3 (Bld) [Moles/Vol] 27 mmol/L Normal 21 - 32 [facility] Comment on above: Performed By: #### C MP ####[facility] [place] [address] Potassium [Moles/Vol] 4.1 mmol/L Normal 3.5 - 5.3 [facility] Comment on above: Performed By: #### C MP ####[facility] [place] [address] Protein [Mass/Vol] 6.8 g/dL Normal 6.4 - 8.2 [facility] Comment on above: Performed By: #### C MP ####[facility] [place] [address] Sodium [Moles/Vol] 137 mmol/L Normal 136 - 145 [facility] Comment on above: Performed By: #### C MP ####[facility] [place] [address] Urea nitrogen [Mass/Vol] 27 mg/dL High 6 - 23 [facility] Comment on above: Performed By: #### C MP ####[facility] [place] [address] CT HEAD WO CONTRASTon 2020 CT HEAD WO CONTRAST STUDY: CT Head without IV Contrast; 07/30/2020, 11:52 PM. INDICATION: Confusion, disorientation. COMPARISON: None Available. ACCESSION NUMBER(S): [id number] ORDERING CLINICIAN: ZAID CUELLAR DO TECHNIQUE: Noncontrast [...] by: RODRICK ANNA MD Normal [facility] MAGNESIUMon 07-31-2020 Magnesium [Mass/Vol] 2.04 mg/dL Normal 1.60 - 2.40 [facility] Comment on above: Performed By: #### M G #### [facility] [address] [place] [address] PT/INRon 07-31-2020 PT Coag (PPP) [Time] 12.0 s Normal 10.1 - 13.3 [facility] Comment on above: Performed By: #### P TINR #### [facility] [address] [place] [address] PT, INR 1.0 Normal 0.9 - 1.1 [facility] Comment on above: Performed By: #### P TINR #### [facility] [address] [place] [address] Provider Note - ED v2on 07-22 Provider Note - ED v2 Provider Note - ED v2: Chart Review: ED NOTES ED NOTES: History: This is an 80-year-old male presenting from the [facility] by [facility] for chief complaint of a medical evaluation. Patient left his home in [place] 3 days ago because he got into an argument with his and he has not been back since. He was finally located at a [facility] down the street when family [...] - ED 30-Jul-2020 23:17 Normal [facility] Risk Screen - Adult Emergenc yon 07-31-2020 [...] instruction; written material Cultural Considerationsnone Developmental Considerationsnone Alevism Considerationsnone Learning Assessment (Other Learner): Learning Assessment (Other Learner): Other learner availableno Pressure Injury/TB/Substance: Pressure Injury: Do you have a coughno Substance Use Current or Former Historynever: Cigarette/Tobacco, e-Cigarette/Vaping, Alcohol, Street Drugs Admission Risk Screen: Significant IndicatorsComplete CAGE: CAGE: Is this an injured patient at a Trauma Center ([facility]): no Electronic Signatures: Elizabeth Ivan (RN) (Signed 30-Jul-2020 23:24) Authored: Preferred Language, Advanced Directives, Family Violence Adult, Learning Assessment (Patient), Learning Assessment (Other Learner), Pressure Injury/TB/Substance, Pressure Injury, CAGE Last Updated: 30-Jul-2020 23:24 by Elizabeth Ivan (MIGUEL) Normal [facility] TROPONIN Ion 07-31-2020 Troponin I.cardiac [Mass/Vol] ng/mL Normal 0.00 - 0.03 [facility] Comment on above: Result Comment: LESS THAN [...] is performed using different testing methodology at [facility] than at other [facility] hospitals. Direct result comparisons should only be made within the same method. Performed By: #### T ROP2 #### [facility] [address] [place] [address] Triage - EDon 07-31-2020 Triage - ED [...] Agency: City Agency Name: Monica Accompanied By: convict guard Language: Spoken Language Preferred: British Reading Language Preferred: British CHIEF COMPLAINT NAT MOORE is a Male [...] obeys commands Best Verbal Response: (V5) oriented [place] Score: 15 Allergies: yes Patient has homicidal [...] 30-Jul-2020 23:23 by Elizabeth Ivan (RN) Normal [facility] UA MICROSCOPICon 07-31-2020 RBC 1 /HPF Normal 0-5 [facility] Comment on above: Performed By: #### U AMIC #### [facility] [address] [place] [address] SQUAMOUS EPITH. CELLS <1 Normal [facility] Comment on above: Performed By: #### U AMIC #### [facility] [address] [place] [address] WBC 22 /HPF Abnormal 0-5 [facility] Comment on above: Performed By: #### U AMIC #### [facility] [id number] [place] [address] URINALYSISon 07-31-2020 Appearance (U) CLEAR Normal CLEAR [facility] Comment on above: Performed By: #### U A #### [facility] [address] [place] [address] Bilirubin Ql (U) Negative Normal NEGATIVE [facility] Comment on above: Performed By: #### U A #### [facility] [address] [place] [address] Color (U) STRAW Normal STRAW,YELLOW [facility] Comment on above: Performed By: #### U A #### [facility] [address] [place] [address] Glucose Ql (U) >=500(3+) Abnormal NEGATIVE [facility] Comment on above: Performed By: #### U A #### [facility] [address] [place] [address] Hemoglobin Ql (U) SMALL(1+) Abnormal NEGATIVE [facility] Comment on above: Performed By: #### U A #### [facility] [address] [place] [address] Ketones Ql (U) Negative Normal NEGATIVE [facility] Comment on above: Performed By: #### U A #### [facility] [address] [facility] [place] [address] Leukocyte esterase Test strip Ql (U) TRACE Abnormal NEGATIVE [facility] Comment on above: Performed By: #### U A #### [facility] [address] [facility] [place] [address] Nitrite Ql (U) Negative Normal NEGATIVE [facility] Comment on above: Performed By: #### U A #### [facility] [address] [facility] [place] [address] pH (U) 6.0 [pH] Normal 5.0 - 8.0 [facility] Comment on above: Performed By: #### U A #### [facility] [address] [facility] [place] [address] Protein Ql (U) 100(2+) Abnormal NEGATIVE [facility] Comment on above: Performed By: #### U A #### [facility] [address] [place] [address] Specific gravity (U) [Rel density] 1.025 Normal 1.005 - 1.035 [facility] Comment on above: Performed By: #### U A #### [facility] [address] [facility] [place] [address] Urobilinogen (U) [Mass/Vol] mg/dL Normal 0.0 - 1.9 [facility] Comment on above: Performed By: #### U A #### [facility] [address] [place] [address] Vital Signs Date Time Vital Sign Value Performing Clinician Facility 01-29-2024 13:02-0500 Body height 172.7 cm Perla Aguila [employer] Work Phone: [facility] 01-29-2024 13:02-0500 Body mass index (BMI) [Ratio] 37.71 kg/m2 Perla Aguila [employer] Work Phone: [facility] 01-29-2024 13:02-0500 Body temperature 97.81 [degF] Perla Aguila [employer] Work Phone: [facility] 01-29-2024 13:02-0500 Body weight 112.49 kg Perla Aguila [employer] Work Phone: [facility] 01-29-2024 13:02-0500 Diastolic blood pressure 70 mm[Hg] Perla Aguila [employer] Work Phone: [facility] 01-29-2024 13:02-0500 Heart rate 74 /min Perla Aguila [employer] Work Phone: [facility] 01-29-2024 13:02-0500 SaO2% (BldA) [Mass fraction] 95 % Perla Aguila [employer] Work Phone: [facility] 01-29-2024 13:02-0500 Systolic blood pressure 128 mm[Hg] Perla Aguila [employer] Work Phone: [facility] 01-08-2024 14:17-0400 Body height 172.7 cm Darcy Sandoval [employer] Work Phone: [facility] 01-08-2024 14:17-0400 Body mass index (BMI) [Ratio] 37.56 kg/m2 Darcy Sandoval [employer] Work Phone: [facility] 01-08-2024 14:17-0400 Body weight 112.04 kg Darcy Sandoval [employer] Work Phone: [facility] 01-08-2024 14:17-0400 Diastolic blood pressure 84 mm[Hg] Darcy Sandoval [employer] Work Phone: [facility] 01-08-2024 14:17-0400 Heart rate 92 /min Darcy Sandoval [employer] Work Phone: [facility] 01-08-2024 14:17-0400 SaO2% (BldA) [Mass fraction] 98 % Darcy Sandoval [employer] Work Phone: [facility] 01-08-2024 14:17-0400 Systolic blood pressure 124 mm[Hg] Darcy Sandoval [employer] Work Phone: [facility] 12-25-2023 14:28-0400 Body height 172.7 cm Darcy Narcissa [employer] Work Phone: [facility] 12-25-2023 14:28-0400 Body mass index (BMI) [Ratio] 38.32 kg/m2 Darcy Lori [employer] Work Phone: [facility] 12-25-2023 14:28-0400 Body weight 114.31 kg Darcy Narcissa [employer] Work Phone: [facility] 12-25-2023 14:28-0400 Diastolic blood pressure 68 mm[Hg] Darcy Sandoval [employer] Work Phone: [facility] 12-25-2023 14:28-0400 Heart rate 88 /min Darcylenny Sandoval [employer] Work Phone: [facility] 12-25-2023 14:28-0400 SaO2% (BldA) [Mass fraction] 97 % Darcy Lori [employer] Work Phone: [facility] 12-25-2023 14:28-0400 Systolic blood pressure 128 mm[Hg] Darcy Sandoval [employer] Work Phone: [facility] 09-16-2022 14:48-0400 Blood Pressure Location Umer VALENCIA [facility] 09-16-2022 14:48-0400 Diastolic blood pressure 74 mm[Hg] Umer VALENCIA [facility] 09-16-2022 14:48-0400 Heart rate 70 /min Umer VALENCIA [facility] 09-16-2022 14:48-0400 Respiratory rate 16 /min Umer VALENCIA [facility] 09-16-2022 14:48-0400 Systolic blood pressure 130 mm[Hg] Umer VALENCIA [facility] 04-26-2022 11:04-0500 Blood Pressure Location Umer VALENCIA [facility] 04-26-2022 11:04-0500 Diastolic blood pressure 78 mm[Hg] Umer VALENCIA [facility] 04-26-2022 11:04-0500 Heart rate 62 /min Umer VALENCIA [facility] 04-26-2022 11:04-0500 Respiratory rate 16 /min Umer VALENCIA [facility] 04-26-2022 11:04-0500 Systolic blood pressure 134 mm[Hg] Umer VALENCIA [facility] 12-03-2021 13:08-0400 Blood Pressure Location Umer VALENCIA [facility] 12-03-2021 13:08-0400 Diastolic blood pressure 70 mm[Hg] Umer VALENCIA [facility] 12-03-2021 13:08-0400 Heart rate 65 /min Umer VALENCIA [facility] 12-03-2021 13:08-0400 Respiratory rate 16 /min Umer VALENCIA [facility] 12-03-2021 13:08-0400 Systolic blood pressure 109 mm[Hg] Umer VALENCIA [facility] 09-03-2021 13:39-0400 Blood Pressure Location Umer VALENCIA [facility] 09-03-2021 13:39-0400 Diastolic blood pressure 67 mm[Hg] Umer VALENCIA [facility] 09-03-2021 13:39-0400 Heart rate 68 /min Umer VALENCIA [facility] 09-03-2021 13:39-0400 Respiratory rate 16 /min Umer VALENCIA [facility] 09-03-2021 13:39-0400 Systolic blood pressure 102 mm[Hg] Umer VALENCIA [facility] Encounters Encounter Date Encounter Type Care Provider Facility Start: 02-10-2024 ambulatory Marianela X Orzech Facilit y:[facility] Start: 01-29-2024 End: 01-29-2024 Bamboo flowsheet Perla Aguila [employer] Work Phone: [facility] Start: 01-29-2024 End: 01-29-2024 Bamaudreyo flowsheet Perla Aguila [employer] Work Phone: [facility] Start: 01-29-2024 End: 01-29-2024 ambulatory PERLA AGUILA Not Available Start: 01-29-2024 End: 01-29-2024 Office outpatient visit 25 minutes Perla Aguila [employer] Work Phone: [facility] Comment on above: Acute cough (Primary Dx); Upper respiratory tract infection, unspecified type; Localized edema Start: 01-22-2024 End: 01-24-2024 Clinisync Result Encounter Generic External Data Provider [facility] External Department Unsolicited Start: 01-22-2024 End: 01-24-2024 Clinisync Result Encounter Generic External Data Provider [facility] External Department Unsolicited Start: 01-08-2024 End: 01-08-2024 ambulatory DARCY SANDOVAL Not Available Start: 01-08-2024 End: 01-08-2024 Bamboo flowsheet Darcy Sandoval [employer] Work Phone: [facility] Start: 01-08-2024 End: 01-08-2024 Bamboo flowsheet Darcy Sandoval [employer] Work Phone: [facility] Start: 01-08-2024 End: 01-08-2024 Office outpatient visit 25 minutes Darcy Sandoval [employer] Work Phone: [facility] Comment on above: Edema, unspecified t ype (Primary Dx); Altered mental status, unspecified altered mental status type Start: 12-25-2023 End: 12-25-2023 Office outpatient visit 25 minutes Darcy Sandoval [employer] Work Phone: [facility] Comment on above: Localized edema (Leslee jazmine Dx); Acute cough Start: 12-25-2023 End: 12-25-2023 ambulatory DARCY SANDOVAL Not Available Start: 12-25-2023 End: 12-25-2023 Bamboo flowsheet Darcy Sandoval [employer] Work Phone: [facility] Start: 12-25-2023 End: 12-25-2023 Bamboo flowsheet Darcy Sandoval [employer] Work Phone: [facility] Start: 12-05-2023 End: 12-05-2023 ambulatory DARCY SANDOVAL [facility] Start: 11-30-2023 End: 11-30-2023 ambulatory [facility] Start: 11-28-2023 End: 11-28-2023 [facility] Start: 11-21-2023 Evaluation and manag ement of inpatient [facility] Start: 11-18-2023 Evaluation and manag ement of inpatient [facility] Start: 11-17-2023 Evaluation and manag ement of inpatient ART MCKOY [facility] Start: 11-15-2023 Evaluation and manag ement of inpatient GILES [facility] Start: 11-15-2023 Evaluation and manag ement of inpatient [facility] Start: 11-15-2023 Evaluation and manag ement of inpatient ANUEL LO [facility] Start: 11-15-2023 Evaluation and manag ement of inpatient GILES [facility] Start: 11-15-2023 End: 11-15-2023 ambulatory UNKNOWN PROVIDER Facility:[facility] Start: 11-15-2023 End: 11-22-2023 Evaluation and management of inpatient CHAKA [facility] Start: 11-13-2023 End: 11-13-2023 ambulatory DARCY SANDOVAL Not Available Start: 11-11-2023 End: 11-11-2023 ambulatory Marianela X Orzech Facility:[facility] Start: 11-11-2023 End: 11-11-2023 Patient encounter procedure Marianela X Orzech [facility] Start: 10-23-2023 End: 10-23-2023 ambulatory DARCY SANDOVAL Not Available Start: 10-14-2023 End: 10-14-2023 ambulatory [facility] X [place] [place] [place] Start[place] 10-14-2023 End: 10-14-2023 Patient encounter procedure Marianela X Orzech [facility] [place] Start: 10-09-2023 End: 10-09-2023 ambulatory TOMMY GABRIEL Not Available Start: 08-01-2023 End: 08-01-2023 ambulatory JUAN PABLO ALANIZ Not Available Start: 06-19-2023 End: 06-19-2023 ambulatory JUAN PABLO ALANIZ Not Available Start: 05-13-2023 End: 05-13-2023 ambulatory CAIT DUNHAM Facility:[facility] Start: 05-13-2023 End: 05-13-2023 Patient encounter procedure CAIT DUNHAM [facility] Start: 04-23-2023 End: 04-23-2023 ambulatory JUAN PABLO ALANIZ Not Available Start: 03-26-2023 End: 03-26-2023 ambulatory JUAN PABLO ALANIZ Not Available Start: 02-27-2023 End: 02-27-2023 ambulatory DARCY SANDOVAL Not Available Start: 12-18-2022 End: 12-18-2022 ambulatory CAIT DUNHAM Facility:[facility] Start: 09-16-2022 End: 09-16-2022 Patient encounter procedure Umer VALENCIA [facility] Start: 07-26-2022 End: 07-27-[address] JUAN PABLO ALANIZ Facility:[facility] Start: 06-26-2022 End: 06-27-[address] JUAN PABLO ALANIZ Facility:[facility] Start: 05-23-2022 End: 05-24-[address] JUAN PABLO ALANIZ Facility:[facility] Start: 04-26-2022 End: 04-26-2022 Patient encounter procedure Umer VALENCIA [facility] Start: 04-22-2022 End: 04-23-[address] JUAN PABLO ALANIZ Facility:[facility] Start: 04-16-2022 End: 04-16-[address] JUAN PABLO ALANIZ Facility:[facility] Start: 04-08-2022 End: 04-08-2022 Patient encounter procedure Umer VALENCIA [facility] Start: 04-04-2022 ambulatory SHELLIE Sousa Facility:[facility] 1 Start: 03-08-2022 End: 03-08-[address] JUAN PABLO ALANIZ Facility:[facility] Start: 03-04-2022 Encounter for preprocedural cardiovascular examination DR VINH HOLCOMB . [facility] Start: 03-04-2022 Encounter for preprocedural laboratory examination DR VINH HOLCOMB . [facility] Start: 03-03-2022 End: 03-03-[address] JUAN PABLO ALANIZ Facility:[facility] Start: 03-02-2022 Encounter for preprocedural cardiovascular examination DR VINH HOLCOMB . [facility] Start: 02-26-[address] VINH HOLCOMB [...] encounter procedure Umer VALENCIA [facility] Start: 11-29-2021 End: 11-30-2021 ambulatory MANDIE NOBLE Facility:[facility] Start: 11-27-2021 End: 11-27-[address] VINH HOLCOMB . Facility:[facility] Start: 10-02-2021 End: 10-03-[address] VINH HOLCOMB . Facility:[facility] Start: 09-21-2021 End: 09-21-[address] SUJIT GR . Facility:[facility] Start: 09-19-2021 End: 09-20-2021 ambulatory MANDIE NOBLE Facility:[facility] Start: 09-15-2021 End: 09-16-[address] SPARKLE NELSON Facility:[facility] Start: 09-03-2021 End: 09-03-2021 Patient encounter procedure Umer Antoine VALENCIA [facility] Start: 09-03-2021 End: 09-03-[address] JUAN PABLO ALANIZ Facility:[facility] Procedures Date Procedure Procedure Detail Performing Clinician Start: 01-22-2024 BLOOD CULTURE 2 Generic External Data Provider Start: 01-22-2024 BLOOD CULTURE 1 Generic External Data Provider Esophagogastroduodenoscopy Goldie VALENCIA Plan of Treatment Date Care Activity Detail Author Start: 01-07-2025 Urine screening for protein Diabetes: Urine Protein Screening [facility] Start: 12-04-2024 Urine screening for protein Diabetes: Urine Protein Screening [facility] Start: 03-04-2024 End: 03-04-2024 Patient encounter procedure 03/04/2024 3:50 PM EST Procedure Visit [facility] [address] [place] [id number] Tommy Gabriel DPM [address] [facility] [address] [place] [address] [facility] Start: 02-17-2024 Hemoglobin A1c measurement Diabetes: Hemoglobin A1C [facility] Start: 01-29-2024 End: 01-28-2025 Basic metabolic 1998 panel - Serum or Plasma Basic metabolic panel Lab Routine Localized edema Acute cough Expected: 01/29/2024 (Approximate), Expires: 01/28/2025 [facility] Work Phone: Comment on above: Expected: 01/29/2024 (Approximate), Expires: 01/28/2025 Start: 01-29-2024 End: 01-28-2025 Natriuretic peptide B [Mass/volume] in Blood B-type natriuretic peptide Lab Routine Localized edema Acute cough Expected: 01/29/2024 (Approximate), Expires: 01/28/2025 [facility] Comment on above: Expected: 01/29/2024 (Approximate), Expires: 01/28/2025 Start: 01-29-2024 End: 01-29-2024 Patient encounter procedure [facility] Start: 01-08-2024 End: 01-07-2025 Basic metabolic 1998 panel - Serum or Plasma Basic metabolic panel Lab Routine Edema, unspecified type Expected: 01/08/2024 (Approximate), Expires: 01/07/2025 [facility] Work Phone: Comment on above: Expected: 01/08/2024 (Approximate), Expires: 01/07/2025 Start: 01-08-2024 End: 01-07-2025 CBC panel - Blood by Automated count CBC Lab Routine Altered mental status, unspecified altered mental status type Expected: 01/08/2024 (Approximate), Expires: 01/07/2025 [facility] Comment on above: Expected: 01/08/2024 (Approximate), Expires: 01/07/2025 Start: 01-08-2024 End: 01-08-2024 Patient encounter procedure 01/08/2024 1:00 PM EDT Office Visit [facility] [address] [place] [address] Darcy Sandoval NP [address] [place] [address] [facility] Start: 12-25-2023 End: 12-25-2023 Patient encounter procedure 12/25/2023 2:30 PM EDT Office Visit [facility] [address] [place] [address] Darcy Sandoval NP [address] [place] [address] Arrived [facility] Comment on above: Arrived Start: 11-23-2023 Influenza vaccination Influenza Vacc ine (#1) [facility] Start: 08-22-2022 ambulatory Ambulatory Facility:[facility] 1 Start: 08-06-2019 Pneumococcal Vaccine : 65+ Years (2 of 2 - PCV) Pneumococcal Vaccine: 65+ Years (2 of 2 - PCV) [facility] Start: 1948 Glaucoma screening Diabetes: R etinopathy Screening [facility] BLOOD CULTURE 1 BLOOD CULTURE 1 Lab Routine 01/22/2024 3:15 PM EDT [facility] BLOOD CULTURE 2 BLOOD CULTURE 2 Lab Routine 01/22/2024 3:19 PM EDT [facility] Immunizations Immunization Date Immunization Notes Care Provider Walt peck 01-13-2023 influenza virus vacc ine, unspecified formulation Marianela Ingram [facility] 01-13-2023 Influenza, High-dose Seasonal, Quadrivalent, Preservative Free Darcy Sandoval [employer] Work Phone: [facility] 02-22-2022 influenza virus vacc ine, unspecified formulation Umer VALENCIA [facility] 02-22-2022 influenza, high dose seasonal, preservative-free Darcy Lori [employer] Work Phone: [facility] 12-21-2020 SARS-CoV-2 (COVID-19 ) mRNA BNT-162b2 vax Umer BCKSTGR [facility] 11-30-2020 SARS-CoV-2 (COVID-19 ) mRNA BNT-162b2 vax Umer VALENCIA [facility] 01-24-2020 influenza virus vacc ine, unspecified formulation Umer VALENCIA [facility] 01-24-2020 influenza, high dose seasonal, preservative-free Darcy Narcissa [employer] Work Phone: [facility] 03-04-2019 influenza virus vacc ine, unspecified formulation Umer VALENCIA [facility] 03-04-2019 influenza, high dose seasonal, preservative-free Darcy Lori [employer]READ B[employer]ER Work Phone: [facility] 08-05-2018 pneumococcal polysaccharide vaccine, 23 valent Umer VALENCIA [facility] 12-18-2016 influenza virus vacc ine, unspecified formulation Umer VALENCIA [facility] 12-18-2016 influenza, high dose seasonal, preservative-free Darcy Lori [employer]READ B[employer]ER Work Phone: [facility] 12-06-2015 influenza virus vacc ine, unspecified formulation Umer VALENCIA [facility] 12-06-2015 influenza, high dose seasonal, preservative-free Darcy Narcissa [employer] Work Phone: [facility] 12-21-2014 influenza virus vacc ine, unspecified formulation Umer VALENCIA [facility] 12-21-2014 influenza, high dose seasonal, preservative-free Darcy Lori [employer]READ B[employer]ER Work Phone: [facility] Payers Date Payer Category Payer Medicare [facility] ADVANTAGE [employer] MEDICARE ADVANTAGE [id number] 2021-Present [id number] [place] [id number] 2021 Medicare (Managed Care) [facility] [id number] 1959 Unknown [id number] 1959 Unknown [id number] 1938 Unknown [id number] 2.16.840.1.196358.3.579.2 .593 1938 Unknown [id number] 2.16.840.1.003935.3.579.2 .593 1938 Unknown [id number] 2.16.840.1.467715.3.579.2 .593 1938 Unknown [id number] 2.16.840.1.302968.3.579.2 .593 1938 Unknown [id number] 2.16.840.1.999622.3.579.2 .593 1938 Unknown [id number] 2.16.840.1.121181.3.579.2 .593 1938 Unknown [id number] 2.16.840.1.357011.3.579.2 .593 1938 Unknown [id number] 2.16.840.1.822310.3.579.2 .593 1938 Unknown [id number] 2.16.840.1.007035.3.579.2 .593 1938 Unknown [id number] 2.16.840.1.885939.3.579.2 .593 1938 Unknown [id number] 2.16.840.1.105197.3.579.2 .593 1938 Unknown [id number] 2.16.840.1.873649.3.579.2 .593 1938 Unknown [id number] 2.16.840.1.583890.3.579.2 .593 1938 Unknown [id number] 2.16.840.1.283719.3.579.2 .593 1938 Unknown [id number] 2.16.840.1.928612.3.579.2 .593 1938 Unknown [id number] 2.16.840.1.380475.3.579.2 .593 1938 Unknown [id number] 2.16.840.1.060415.3.579.2 .593 1938 Unknown [id number] 2.16.840.1.626300.3.579.2 .593 1938 Unknown [id number] 2.16.840.1.096603.3.579.2 .593 1938 Unknown [id number] 2.16.840.1.022506.3.579.2 .593 1938 Unknown [id number] 2.16.840.1.698322.3.579.2 .593 1938 Unknown [id number] 2.16.840.1.005575.3.579.2 .593 1938 Unknown [id number] 2.16.840.1.496950.3.579.2 .593 1938 Unknown [id number] 2.16.840.1.392411.3.579.2 .593 1938 Unknown [id number] 2.16.840.1.220350.3.579.2 .727 1938 Unknown [id number] 2.16.840.1.219762.3.579.2 .727 1938 Unknown [id number] 2.16.840.1.902505.3.579.2 .727 1938 Unknown [id number] 2.16.840.1.099013.3.579.2 .727 1938 Unknown [id number] 2.16.840.1.346204.3.579.2 .727 1938 Unknown [id number] 2.16.840.1.233159.3.579.2 .732 1938 Unknown [id number] 2.16.840.1.604958.3.579.2 .173 1938 Unknown [id number] 2.16.840.1.146898.3.579.2 .1259 1938 Unknown [id number] 2.16.840.1.708886.3.579.2 .1259 1938 Unknown [id number] 2.16.840.1.280912.3.579.2 .1259 1938 Unknown [id number] 2.16.840.1.968466.3.579.2 .125 1938 Unknown [id number] 2.16.840.1.718934.3.579.2 .1259 1938 Unknown [id number] 2.16.840.1.718037.3.579.2 .1259 1938 Unknown [id number] 2.16.840.1.746217.3.579.2 .1259 1938 Unknown [id number] 2.16.840.1.301677.3.579.2 .1259 1938 Unknown [id number] 2.16.840.1.007576.3.579.2 .1259 1938 Unknown [id number] 2.16.840.1.349065.3.579.2 .1259 1938 Unknown [id number] 2.16.840.1.129042.3.579.2 .1259 Social History Date Type Detail Facility Start: 09-03-2021 Tobacco smoking status Ex-smoker (fi nding) [facility] Start: 11-01-2022 End: 12-11-2023 Sex Assigned At Male [facility] Start: 04-26-2022 End: 11-14-2022 Tobacco smoking status Never smoked tobacco (finding) [facility] Tobacco smoking status Never [facility] Start: 11-14-2022 Tobacco use and exposure Smokeless tobacco non-user [facility] Start: 11-13-2023 End: 01-29-2024 Alcoholic beverage intake Ex-drinker (finding) [facility] [...] Not at all [facility] (I/We) worried whe er (my/our) food would run out before (I/we) got money to buy more. Never true [facility] Start: 1940 Sex assigned at Not on file [facility] Functional Status Date Assessment Result Facility 11-11-2023 Functional Status N/A [facility] 09-16-2022 Functional Status N/A [facility] 04-26-2022 Functional Status N/A [facility] 12-03-2021 Functional Status N/A [facility] 09-03-2021 Functional Status N/A [facility] Clinical Notes 09-03-2021 to 01-29-2024 Fe Rojo LPN - 01/29/2024 1:00 PM ESTPatient Diane Sandoval NP - 01/08/2024 2:00 PM Mary Ellen Sandoval NP - 12/25/2023 2:30 PM EDT Note Date & Type Note Facility 01-29-2024 History of Present illness Narrative HPI Follow-up Additional comments: [facility] observation: admitted 01/22/24 dx: syncope,hypotension,dehydration discharged home 01/23/24 no med changes made Last edited by Fe Rojo LPN on 01/29/2024 1:07 PM. Subjective Patient ID: Nat Moore is a 83 y.o. male who presents for Follow-up ([facility] observation: admitted 01/22/24 dx: syncope,hypotension,dehydration discharged home 01/23/24 no med changes made) and URI. Patient has been doing well since hospital discharge. No medications changed during inpatient stay. He does report URI symptoms-- dry cough, nasal drainage,congestion x 1 week. URI This is a new problem. The current episode started 1 to 4 weeks ago. The problem has been waxing and waning. There has been no fever. Associated symptoms include congestion, coughing, rhinorrhea and sinus pain. He has tried nothing for the symptoms. Current Outpatient Medications on File Prior to Visit Medication Sig Dispense Refill allopurinol (Zyloprim) 300 MG tablet TAKE ONE [...] MOUTH DAILY AT BEDTIME 28 tablet 11 FLUoxetine (PROzac) 10 MG capsule TAKE ONE [...] for anxiety lidocaine (Lidoderm) 5 % patch APPLY 1 PATCH TOPICALLY IN THE MORNING (12 HOURS ON, THEN 12 HOURS OFF) OR PER DIRECTED BY 30 patch 4 meloxicam (Mobic) 15 MG tablet TAKE ONE TABLET BY MOUTH AT BEDTIME 28 tablet 11 methocarbamol (Robaxin) 500 MG tablet TAKE ONE TABLET BY MOUTH DAILY AT BEDTIME 28 tablet 11 omeprazole (PriLOSEC) [address] capsule TAKE ONE CAPSULE BY MOUTH DAILY BEFORE MORNING MEAL 28 capsule 11 oxybutynin XL (Ditropan-XL) 5 [...] 24 hour capsule Take by mouth Daily metOLazone (Zaroxolyn) 5 MG tablet Take 1 tablet (5 mg) by mouth Daily for 5 days Give 1/2 hour before Lasix 5 tablet 0 [DISCONTINUED] doxycycline (Vibra-Tabs) 100 MG tablet Take 1 tablet by mouth in the morning and 1 tablet before bedtime. No current facility-administered medications on file prior [...] Past Medical History: Diagnosis Date Diabetes mellitus (CMS/[facility]) Diverticulosis History of being hospitalized 10/07/2023 Acute Metabolic Encephalopathy Hypertension (CMS/HCC) Lung nodule Memory loss Neuropathy Renal cyst 2021 rt cortical Ulcer of foot due to type 2 diabetes mellitus (CMS/HCC) 09/04/2016 Past Surgical History: Procedure Laterality Date EGD with dilation Visit Vitals BP 128/70 Pulse 74 Temp 97.8 F Ht 5' 8 Wt 248 lb SpO2 95% BMI 37.71 kg/m Smoking Status Never BSA 2.32 m Review of Systems HENT: Positive for congestion, rhinorrhea and sinus pain. Respiratory: Positive for cough. All other systems reviewed and are negative. Objective Physical Exam Vitals and nursing note reviewed. Constitutional: Appearance: Normal appearance. He is normal weight. HENT: Head: Normocephalic and atraumatic. Right Ear: Tympanic membrane normal. Left Ear: Tympanic membrane normal. Nose: Congestion present. Mouth/Throat: Mouth: Mucous membranes are dry. Eyes: Extraocular Movements: Extraocular movements intact. Pupils: Pupils are equal, round, and reactive to light. Cardiovascular: Rate and Rhythm: Normal rate and regular rhythm. Pulses: Normal pulses. Heart sounds: Normal heart sounds. Pulmonary: Effort: Pulmonary effort is normal. Comments: Crackles in b/l lung bases Genitourinary: Comments: Incontinent Musculoskeletal: General: Normal range of motion. Cervical back: Normal range of motion. Skin: General: Skin is warm and dry. Neurological: Mental Status: He is alert. Psychiatric: Mood and Affect: Mood normal. Assessment/Plan Problem List Items Addressed This Visit Localized edema -Mr. Moore has b/l lower extremity edema 1+. He is unsure of the medications he is currently taking. Medication list reveals both furosemide and zaroxolyn. He has b/l crackles to lung bases, diminished throughout. We will update labs today. Continue furosemide and zaroxolyn as prescribed. If elevation of BNP consider increasing furosemide vs. Obtaining chest xray. Other Relevant Orders Basic metabolic panel B-type natriuretic peptide Acute cough -Mr. Moore reports dry cough and congestion x 1 week duration. Will treat with 5 day course of azithromycin and recommend OTC Coricidin HBP for cough/congestion symptoms. He will return to office if symptoms fail to improve after antibiotic finished. Relevant Medications azithromycin (Zithromax) 500 MG tablet Other Relevant Orders Basic metabolic panel B-type natriuretic peptide Follow up based on lab results--or if symptoms of URI do not improve. Melanie Boyle NP documented in this encounter [facility] 01-29-2024 Instructions Melanie Boyle NP - 01/29/2024 1:00 PM EST Start azithromycin 500 mg daily x 5 days for sinus infection. Okay to take Coricidin HBP over the counter for cough/congestion symptoms Follow up to be determined based on lab results. documented in this encounter [facility] 01-08-2024 History of Present illness Narrative Images [...] Medical History: Diagnosis Date Diabetes mellitus ([facility]) Diverticulosis History of being hospitalized 10/07/2023 Acute Metabolic Encephalopathy Hypertension ([facility]) Lung nodule Memory loss Neuropathy Renal cyst 2021 rt cortical Ulcer of foot due to type 2 diabetes mellitus ([facility]) 09/04/2016 Past Surgical History: Procedure Laterality [...] follow-ups on file. documented in this encounter [facility] 12-25-2023 History of Present illness Narrative Images [...] follow-ups on file. documented in this encounter [facility] 11-22-2023 Note Hospital Medicine Discharge Summary Final Discharge Diagnosis: Episodes of sinus pauses/asystole requiring external pacing maker s/p permanent dual-chamber pacemaker on 11/18/2023 Recurrent syncope Acute encephalopathy Coronary artery disease, Coronary calcification, C 11/15 LAD: prox 40%, mid 60-70%. 80% [...] initially admitted to the hospitalist service from [place] due to recurrent episodes of syncope secondary [...] his presenting complaints. During his stay in [place] ED he suddenly developed bradycardia prolonged sinus pause up to 18 seconds and became unresponsive. Code was activated and at the beginning of CPR he had regained his consciousness. He had another episode of sinus pause of about 12 seconds prior to transfer, however did not lose his consciousness at this time. On arrival to [facility] blood pressure was 158/72 mmHg, pulse rate 78 bpm, regular, SpO2 100% on room air, respiratory rate 20/min, temperature 97.2. 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 CT of the abdomen with contrast done at [place] ED showed nonobstructive bowel gas pattern with [...] significantly. Daily evaluated the patient on 11/21/2023. [place] slip was removed and they deemed patient [...] cardiology, ICU, psychiatry Dear Dr. Corbin MD, [place] is advised to follow up with you within 1-2 weeks. Follow-up with: primary care, electrophysiology Scheduled appointments: Future Appointments Date Time Provider Department Center 12/02/2023 2:20 PM Liu Henning MD [facility] Your medication list START taking these medications Instructions Last Dose Given Next Dose Due amLODIPine 10 mg tablet Commonly known as: Norvasc Start taking on: November 23, 2023 Take 1 tablet (10 mg) by mouth in the morning. Do not start bef (more content not included)... [facility] 11-22-2023 Note Physical Therapy Name: Nat Moore Date of : 1940 Today's Date: 11/22/23 Pt is unable to be seen for therapy at this time secondary to pt to discharge @ 2:00 PM today. Check No Charge Time attempted: 1405 [facility] 11-22-2023 Note Pt originally set fo r 9am BLS transport to [facility] but per MD we will push back to 2pm transport due to high blood pressures. UPDATE 1:15PM- Per MD pt can still discharge today. Transport set for 2pm via [facility]. Assembled transfer packet and placed by chart. Sent final AVS and discharge orders via [facility]. Notified RN and pt's is aware of transport time. [facility] 11-21-2023 Note Attestation signed by Juan [...] is for the patient to go to [place] [facility]. Discussed with the family that our strong [...] with Dr. Liz. Melva Recinos MD PGY2 [facility] 11-21-2023 Note Hospital Medicine Daily Progress Note - 11/21/2023 2:13 PM; Room: [address] [place] [address] Admission: 11/15/2023 2:42 PM; Length of stay: 6 days THE HOSPITALIST TEAM PREFERS TO USE [employer] CHAT FOR COMMUNICATION 7AM-7PM. IF I DO NOT RESPOND WITHIN 15 MINUTES, PLEASE PAGE ME/CALL THROUGH THE OTOLARYNGOLOGY REP. FROM 7PM-7AM, PLEASE PAGE [phone](COVR) Code Status: Full Code Barriers to Discharge: SNF placement Expected Discharge Date: Today Discharge Destination: care home facility Overview Patient is seen for evaluation [...] Acute metabolic encephalopathy Coronary artery disease involving [place] coronary artery of [place] heart with angina pectoris (CMS/HCC) Hypokalemia Hypernatremia Obesity due to excess calories without serious comorbidity Sinus pause Assessment and Plan Episodes of sinus pauses/asystole requiring external pacing maker s/p permanent dual-chamber pacemaker on 11/18/2023 Recurrent syncope Acute encephalopathy Coronary artery disease Chronic kidney disease stage III Essential hypertension Hyperlipidemia Chronic osteoarthritis Obesity Hyponatremia Hypokalemia normocytic anemia Plan Continue inpatient cares Psych following. [place] slip removed. No need for psych admission. [...] CALCIUM mg/dL 8. (more content not included)... [facility] 11-21-2023 Note Physical Therapy Physical Therapy [...] a.m. Upon entry, pt in bed. This GROMMET MACHINE OPERATOR introduces herself and intention for session. [...] state President. Did state he was at [facility] .) Following Commands: Follows one step [...] 2 is given. Gait belt is donned, CORPORATE DEVELOPMENT ASSOCIATE is given on the right side and [...] to advance BLEs to EOB but uses GROMMET MACHINE OPERATOR's hand with his right hand to assist in raising upper body from bed. Bed Mobility 2 Bed Mobility From 2: Scooting Bed Mobility Type 2: To Bed Mobility to 2: (EOB in sitting) Level of Assistance 2: Minimum assistance Bed Mobility Comments 2: Pt uses GROMMET MACHINE OPERATOR's hand with his right hand to assist in scooting hips to EOB Transfers Transfer: Yes Transfer 1 Transfer From 1: Sit Transfer Type 1: To and from Transfer to 1: Stand Transfer Device 1: none (GROMMET MACHINE OPERATOR and aide on either side of pt) Transfer Level of Assistance 1: Minimum assistance, x2 Trials/Comments 1: Pt. instructed to (more content not included)... [facility] 11-21-2023 Note Attestation signed by Juan [...] Patient Name: Nat Moore MRN / CSN: [id number] Date of / Age: 1 1940 / [...] mild cognitive impairment originally presenting to the [facility] Emergency Room on 11/15/2023 for evaluation of recurrent episodes of syncope secondary to spontaneous prolonged sinus pause. The patient was transferred via air ambulance from the [facility]. 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 The patient reports being to his , Donna, and having 4 children. He reports he came from [place] where he lives, but was not able to describe why he came to hospital or where he is now. 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 Reported Behavior: Combative and agitated PRN [...] injection PRN 8/ (more content not included)... [facility] 11-20-2023 Note 11/20/23 1730 Referral Data [...] Support Systems Spouse/significant other Type of Residence [facility] facility Will patient need Precert for Post Acute needs? Yes Patient's goal for discharge would like the facility in [place] for rehab 1. [facility] 2. [place] [facility] 3. (if not accepted in [place]) she is ok with [facility]. Does the patient need discharge transport arranged? Yes SW called patient to discuss consult for SNF placement for rehab. Patient is currently confused and not able to answer questions. SW discussed network provider list. would like provider in [place] with [facility] [place] [facility] 1st choice. She would [place] [facility] as 2nd and she is ok if neither can accept for [facility] as 3rd choice. Referrals made as requested. Precert will be needed. NATALYA following. [facility] 11-20-2023 Note Attestation signed by William [...] initially admitted to the hospitalist service from [place] due to recurrent episodes of syncope secondary [...] his presenting complaints. During his stay in [place] ED he suddenly developed bradycardia prolonged sinus [...] of the abdomen with contrast done at [place] ED showed nonobstructive bowel gas pattern with [...] no focal deficit (more content not included)... [facility] 11-19-2023 Note Speech Jd Edwards Developer ology Speech/Language Pathology Clinical Swallow Assessment Rx: [...] liquids No family present Order received per Jodie RN with concerns that pt had increased pocketing while eating soft foods and was concerned for choking per his confusion. SUBJECTIVE HPI: Nat Moore is a 83 y.o. male with PMHx significant for HTN/HLD, CKD 3A, dementia, obesity, coronary calcifications who presented via air ambulance from [facility] due to recurrent episodes of syncope secondary to spontaneous prolonged sinus pause. He had initially presented for worsening midsternal chest pain lower back pain located in his mid chest aching in nature, 6 out of 10 on intensity scale, nonradiating associated with SOB. During his stay at [place] he developed bradycardia prolonged sinus pause up [...] (in puree) Recommendations Duration of Treatment: 15 [facility] 11-19-2023 Note Attestation signed by William [...] Moore Age - 83 y.[facility] 1940 [id number] Date of Admission - 11/15/2023 2:42 PM HPI/Hospital Course Nat Moore is a an 83-year-old gentleman with PMH significant for type 2 diabetes mellitus, essential hypertension, hyperlipidemia, CKD stage IIIa, bilateral lower extremity edema on diuretic therapy, osteoarthritis, depression and mild cognitive impairment was initially admitted to the hospitalist service from [place] due to recurrent episodes of syncope secondary [...] his presenting complaints. During his stay in [place] ED he suddenly developed bradycardia prolonged sinus [...] of the abdomen with contrast done at [place] ED showed nonobstructive bowel gas pattern with [...] Results CBC: Result (more content not included)... [facility] 11-19-2023 Note Attestation signed by Nora [...] calcifications who presented via air ambulance from [facility] due to recurrent episodes of syncope secondary to spontaneous prolonged sinus pause. He had initially presented for worsening midsternal chest pain lower back pain located in his mid chest aching in nature, 6 out of 10 on intensity scale, nonradiating associated with SOB. During his stay at [place] he developed bradycardia prolonged sinus pause up [...] NAD. Resting comfortably. Still in restraints. S/p [employer] DC-PPM yesterday, tolerated well. OBJECTIVE Objective [...] mg, 5 mg, oral, Nightly PRN, Nils Zimemr MD methocarbamol (Robaxin) tablet 500 mg, 500 mg, oral, Nightly, Nils Zimmer MD, 500 mg at 11/18/23 2101 nystatin (Mycostatin) 100,000 unit/gram powder, , Topical, [...] , , Once (more content not included)... [facility] 11-19-2023 Note 11/19/23 1125 Admission Assessment [...] Interested Does the patient have a case work aide assigned to them through their insurance? No Living Arrangement (Current/Prior to Hospitalization) Private residence (with ) Does the patient have history of HHC or SNF? No Assistive Device Cane Patient's goal for discharge likely snf Was patient reminded that goal for discharge is 11am? No Does the patient have transportation at discharge? No Type of Residence [facility] facility Is PT/OT appropriate? Yes Is PT/OT ordered? Yes Is SW consult appropriate? Yes Is SW consult ordered? Yes Do you understand the benefits of MyChart? No Were you able to send link and activate MyChart? No [facility] 11-19-2023 Note Consult rec'd for SN F. PT/OT recommend SNF. No family at bedside at this time. SW to try again later. [facility] 11-19-2023 Note Physical Therapy Physical Therapy [...] Level of Function Prior Function Level of [place]: Independent with ADLs and functional transfers, Needs [...] patient with difficul (more content not included)... [facility] 11-19-2023 Note Occupational Therapy Occupational Therapy Evaluation Patient Name: Nat Moore : 1940 Today's Date: 11/19/2023 Time In: 941 Time Out: 1005 admitted to the hospitalist service from [place] due to recurrent episodes of syncope secondary [...] directions Memory: Decreased short term memory, Decreased senior care memory, Decreased recall of precautions, Decreased recall of biographical information, Decreased recall of recent events Communication: (labored , dysarthic) General Assessment General Assessment Hearing: ([place], hearing aids not observed but has them per nsg) Hand Dominance: Right Home Living Home Living Type of Home: (patient unable to report consistantly) Prior Level of Function Prior Function Level of [place]: (reports indep and drives) Prior Functional Mobility: [...] Assessment RUE Assessment: (BUE observed antigravity to 3/5/ MMT deferred) Outcome Assessments AM-PAC 6 Clicks [...] Little (Min Assist/Contact Guard/Supervision) Total Score OT AMPA: 8 Assessment/Plan OT Assessment OT Impairments: Decreased [...] until discharge & PRN OT Discharge Recommendations: [facility] facility placement OT - Discharge Recommendations Placed: Yes OT Goals Multi-Disciplinary Problems (from Occupational Therapy) Active Problems Problem: Balance Start Date: 11/19/23 Goal Start Date Expected End Date End Date LTG - Patient will maintain stand balance to allow for safe mobility 11/19/23 12/17/23 -- Problem: Bathing Start Date: 11/19/23 Goal Start Date Expected End Date End Date LTG (more content not included)... [facility] 11-18-2023 Note Attestation signed by William [...] Moore Age - 83 y.o. - 1940 [id number] Date of Admission - 11/15/2023 2:42 PM HPI/Hospital Course Nat Moore is a an 83-year-old gentleman with PMH significant for type 2 diabetes mellitus, essential hypertension, hyperlipidemia, CKD stage IIIa, bilateral lower extremity edema on diuretic therapy, osteoarthritis, depression and mild cognitive impairment was initially admitted to the hospitalist service from [place] due to recurrent episodes of syncope secondary [...] his presenting complaints. During his stay in [place] ED he suddenly developed bradycardia prolonged sinus [...] of the abdomen with contrast done at [place] ED showed nonobstructive bowel gas pattern with [...] 11.9* 12.4* HE (more content not included)... [facility] 11-18-2023 Note Attestation signed by Nora [...] calcifications who presented via air ambulance from [facility] due to recurrent episodes of syncope secondary to spontaneous prolonged sinus pause. He had initially presented for worsening midsternal chest pain lower back pain located in his mid chest aching in nature, 6 out of 10 on intensity scale, nonradiating associated with SOB. During his stay at [place] he developed bradycardia prolonged sinus pause up [...] NAD. Resting comfortably. Still in restraints. S/p [employer] DC-PPM this morning, tolerated well. OBJECTIVE [...] Nightly, Kulwinder Figueroa MD, 40 mg at 11/17/234 dexmedeTOMIDine (Precedex) 4 mcg/mL in sodium chloride [...] PRN, Nils Lam (more content not included)... [facility] 11-18-2023 Note DUAL CHAMBER PACEMAK ER IMPLANT PROCEDURE NOTE DATE OF PROCEDURE: 11/18/23 PERFORMING PHYSICIAN: Dr. Sam Oscar CONSENT: Patient LOCATION: EP Lab PROCEDURE PERFORMED: 1. Implantation of pacemaker ([employer]) 2. Ultrasound guided venous access INDICATIONS: [...] using modified seldinger technique using a 5 [employer] micro-puncture needle on two occasions and 0.35 [...] for the device above the muscle. 6 [place] Safesheaths were placed over the wire. An active fixation [employer] pacing lead was then delivered through the 6Fsheath to the right ventricle. After confirmation of lead position on orthogonal views (WILKINSON and UPPER SORBIAN) to confirm septal position, the screw was [...] was then removed. Then an active fixation [employer] lead was delivered through the 6Fsheath to the right atrial appendage. After confirmation of lead position on orthogonal views (WILKINSON and UPPER SORBIAN), the screw was activated. Good sensing parameters, [...] discharge or sooner for any concerns. Sam Oscar MD Cardiac Electrophysiology [facility] 11-17-2023 Note Attestation signed by Nora [...] calcifications who presented via air ambulance from [facility] due to recurrent episodes of syncope secondary to spontaneous prolonged sinus pause. He had initially presented for worsening midsternal chest pain lower back pain located in his mid chest aching in nature, 6 out of 10 on intensity scale, nonradiating associated with SOB. During his stay at [place] he developed bradycardia prolonged sinus pause up [...] oral, Daily, [place] (more content not included)... [facility] 11-17-2023 Note Attestation signed by William [...] initially admitted to the hospitalist service from [place] due to recurrent episodes of syncope secondary [...] his presenting complaints. During his stay in [place] ED he suddenly developed bradycardia prolonged sinus [...] of the abdomen with contrast done at [place] ED showed nonobstructive bowel gas pattern with [...] planning on taking the patient to the [facility] tomorrow for possible transvenous pacemaker placement SUBJECTIVE [...] hours) at 11/17/2023 (more content not included)... [facility] 11-16-2023 Note Cardiovascular Labor atory Report [...] left radial artery was obtained. A 6 [employer]ian glide sheath was inserted without difficulty. Difficulty [...] a mid v (more content not included)... [facility] 11-16-2023 Note Attestation signed by Salena [...] permanent pacemaker implantation tomorrow Salena Alcaraz MD, [facility] Cardiology Progress Note Subjective Subjective: Patient had [...] -- 73 13 99 % -- -- 11/15/23 2015 165/78 -- -- 81 17 99 % -- -- 11/15/231999 154/69 -- -- 85 15 98 % -- -- 11/15/23 1945 154/66 -- -- 82 13 100 % [...] Value Ventricular Rate 85 Atrial Rate 85 ND Interval 266 QRS DURATION 104 QT Interval 390 QTC CALCULATION(BAZETT) 464 P Delmont 71 R-Delmont -60 T Wave Delmont 49 Impression Sinus rhythm with 1st degree A-V block Left axis deviation Inferior infarct (cited on or before 21-JUL-2012) Cannot rule out Anterior infarct (cited on or before 15-NOV-2023) Abnormal ECG When compared with ECG of 15-NOV-2023 19:56, (unconfirmed) No significant change was found Lab Results Component Value Date TROPONINI 0.01 11/15/2023 Transthoracic echo (TTE) complete Result Date: 11/15/2023 1 1 [facility] Heart Station [address] [place] [address] [phone] (fax) Echocardiogram-[facility] Name: NAT MOORE Study Date: 11/15/2023 05:06 PM B/P: 158 mmHg/72 mmHg HR: Date of : 1940 Location: [facility] Height: 65 in. Age: 83 [...] sizeNo significant v (more content not included)... [facility] 11-15-2023 Note CODE BLUE was called on this patient after he sustained a 10 the second sinus pause and then a 7-second sinus pause. Patient with brief LOC. Patient with multiple episodes of nausea and vomiting. MICU fellow at bedside who states he will transfer patient to MICU for transcutaneous pacing. [facility] 11-15-2023 Note Hospital Medicine History and Physical 11/15/2023 5:58 PM THE HOSPITALIST TEAM PREFERS TO USE [employer] CHAT FOR COMMUNICATION 7AM-7PM. IF I DO NOT RESPOND WITHIN 15 MINUTES, PLEASE PAGE ME/CALL THROUGH THE OTOLARYNGOLOGY REP. FROM 7PM-7AM, PLEASE PAGE [phone](COVR) Chief Complaint No chief complaint on file. History of Present Illness Nat Moore is an 83 y.o. severely obese male with a medical history significant for type 2 diabetes mellitus, essential hypertension, hyperlipidemia, CKD stage IIIa, bilateral lower extremity edema on diuretic therapy, osteoarthritis, coronary calcifications, depression, mild cognitive impairment, who was transferred via air ambulance from the [facility] due to recurrent episodes of syncope secondary to spontaneous prolonged sinus pause. Patient states that he presented to the [place] ED due to worsening midsternal chest pain [...] his presenting complaints. During his stay in [place] ED he suddenly developed bradycardia prolonged sinus [...] of the abdomen with contrast done at [place] ED showed nonobstructive bowel gas pattern with [...] no oral abnorma (more content not included)... [facility] 11-11-2023 Hospital Discharge instructions Patient Education [...] your health care provider. General instructions Take rrwh-ybk-grpspek and prescription medicines only as told by [...] provider. Document Revised: 11/27/2020 Document Reviewed: 11/27/2020 [employer] Patient Education 2022 [employer]. Follow Up Care 10/14/2023 13:29:56 With:RAUL Ingram APRN, Marianela Rodriguez, RIANNA, URL Address: When: Unknown Comments:f/up in 3 mos [facility] 11-11-2023 Note Patient Education [...] health care provider. General instructions ? Take hmfh-ivl-zephbuj and prescription medicines only as told by [...] your health care (more content not included)... [facility] 09-16-2022 Hospital Discharge instructions Patient Education [...] your health care provider. General instructions Take jyck-dcx-ramlqfl and prescription medicines only as told by [...] provider. Document Revised: 11/27/2020 Document Reviewed: 11/27/2020 [employer] Patient Education 2022 [employer]. Follow Up Care 04/26/2022 11:39:09 With:ERIK MENG, Umer Schultz, URL Address: [facility] [address], [place] [address]- When: Unknown [facility] 05-23-2022 Note CONSULTATION CONSULTATION DATE: 05/23/2022 HISTORY: [...] indicated. Patient agrees with this plan. [facility] 04-26-2022 Hospital Discharge instructions Patient Education [...] urethra. Follow these instructions at home: Take shss-yqc-mdfmnww and prescription medicines only as told by [...] 03/10/2006 Document Revised: 02/02/2019 Document Reviewed: 04/14/2017 [employer] Patient Education 2020 [employer]. Follow Up Care 04/08/2022 14:01:00 With:ERIK MENG, Umer Schultz, URL Address: [address] [place] [address]- When: Unknown [facility] [place] 04-08-2022 Hospital Discharge instructions Patient Education [...] urethra. Follow these instructions at home: Take rzrz-vak-fmdhaon and prescription medicines only as told by [...] 03/10/2006 Document Revised: 02/02/2019 Document Reviewed: 04/14/2017 [employer] Patient Education 2019 [employer]. Follow Up Care 12/03/2021 14:11:02 With:ERIK MENG, Umer Schultz, URL Address: [facility] [address] , [place] [address]- When: Unknown [facility] 01-22-2022 Note CONSULTATION CONSULTATION [...] proceed. CC: Juan Pablo Alaniz M.D. 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 He does not use heat or ice to his back at this time. Current medications include gabapentin 200 mg t.i.d., nabumetone 750 mg b.i.d., Elkin 5/325 t.i.d. Patient does use a walking [...] L3 and L4, L5. A refill for Elkin 5/325 t.i.d. will be sent today. He will receive an oral U-Tox in the office today. Supportive measures such as stretching, a menthol heat rub and heat application to his back were discussed. I did recommend a Boost supplement daily. Patient will be followed up in the office post procedure and agrees to move forward. [facility] 12-03-2021 Hospital Discharge instructions Patient Education [...] urethra. Follow these instructions at home: Take etnf-jqe-asvulyp and prescription medicines only as told by [...] 03/10/2006 Document Revised: 02/02/2019 Document Reviewed: 04/14/2017 [employer] Patient Education 2020 [employer]. Follow Up Care 09/03/2021 14:17:23 With:ERIK MENG, Umer Schultz, URL Address: [facility] [address] [place] [address]- [phone] When:04/04/2022 Comments:PVR [facility] 10-02-2021 Note CONSULTATION PROCEDURE DATE: 10/02/2021 PREOPERATIVE [...] he reports mitigation of his pain symptomatology. [facility] Signed and Approved by: DR VINH HOLCOMB . 10/09/2021 09:28:00 [facility] 10-02-2021 Note CONSULTATION CONSULTATION DATE: [...] three times a day. We will re-prescribe Elkin 5/325 t.i.d. which he had received from [...] to proceed. CC: Juan Pablo Alaniz M.D. [facility] Signed and Approved by: DR VINH HOLCOMB . 10/09/2021 09:28:00 [facility] 09-03-2021 Hospital Discharge instructions Patient [...] 03/10/2006 Document Revised: 11/27/2018 Document Reviewed: 02/07/2017 [employer] Patient Education 2020 [employer]. 09/03/2021 13:53:06 Benign Prostatic Hyperplasia Benign Prostatic [...] urethra. Follow these instructions at home: Take ydqx-mqm-nygrtzi and prescription medicines only as told by [...] 03/10/2006 Document Revised: 02/02/2019 Document Reviewed: 04/14/2017 [employer] Patient Education 2020 Atavist. Follow Up Care 07/03/2021 15:21:16 With:Umer VALENCIA MD, URL Address: [facility] [address], [place] [address]- [phone] When:Within 3 Month(s) Comments:f/u in 3 months with PVR scan [facility] Evaluation + Plan note Future Appointments Appointment Date:12/03/2021 01:15:00 PM Scheduled Provider:Umer VALENCIA MD Location:[facility] Appointment Type:URO Office Visit [facility] Evaluation + Plan note Future Appointments Appointment Date:04/08/2022 12:45:00 PM Scheduled Provider:Umer VALENCIA MD [facility] Appointment Type:URO Office Visit [facility] Evaluation + Plan note Future Appointments Appointment Date:04/26/2022 10:15:00 AM Scheduled Provider:Umer VALENCIA MD Location:[facility] Appointment Type:URO Office Visit [facility] Evaluation + Plan note Future Appointments Appointment Date:07/22/2022 08:45:00 AM Scheduled Provider:Umer VALENCIA MD Location[facility] Appointment Type:URO Office Visit [facility] Evaluation + Plan note Future Appointments Appointment Date:12/20/2022 08:30:00 AM Scheduled Provider:Umer VALENCIA MD Location:[facility] Appointment Type:URO Office Visit [facility] Evaluation + Plan note Future Appointments Appointment Date:11/11/2023 01:00:00 PM Scheduled Provider:RAUL Ingram APRN, [place] [facility] Location:[facility] Appointment Type:URO Office Visit [facility] Evaluation + Plan note Future Appointments Appointment Date:02/10/2024 12:30:00 PM Scheduled Provider:RAUL Ingram APRN, [place] [facility] Location:[facility] Appointment Type:URO Office Visit [facility] Evaluation note Diagnosis Localized edema- Primary Edema Acute cough [facility] Diagnosis Edema, unspecified type- Primary Altered mental status, unspecified altered mental status type [facility] Diagnosis Acute cough- Primary Upper respiratory tract infection, unspecified type Localized edema Edema [facility] N[facility] No data available for this section [facility] Discharge instructions No data available for this section [facility] progress note No data available for this section [facility] Summary Purpose Family History No Family History [...] section and content) DATE CREATED AUTHOR 11/14/2020 [facility] DATE CREATED AUTHOR AUTHOR'S ORGANIZ ATION 08/02/2022 [facility] [place] [facility] DATE CREATED AUTHOR AUTHOR'S ORGANIZ ATION 11/13/2023 [facility] DATE CREATED AUTHOR AUTHOR'S ORGANIZ ATION 11/17/2023 [facility] DATE CREATED AUTHOR AUTHOR'S ORGANIZ ATION 11/24/2023 [facility] DATE CREATED AUTHOR AUTHOR'S ORGANIZ ATION 12/07/2023 [facility] DATE CREATED AUTHOR AUTHOR'S ORGANIZ ATION 01/31/2024 [facility] Care Team (unrecognized sect ion and content) [employer] Machine Operator Relationship Specialty Start Date End Date Juan Pablo Alaniz MD [address] [facility] [address] [place] [address] PCP - Peg CHURCH[place] 03/24/21 Juan Pablo Alaniz MD [address] [facility] [address] [place] [address] PCP - General Internal Medicine 07/30/22 [employer] Machine Operator Relationship Specialty Start Date End Date Juan Pablo Alaniz MD [address] [facility] [address] [place] [address] PCP - Peg CHUR[place] 03/24/21 Juan Pablo Alaniz MD [address] [facility] [address] [place] [address] PCP - General Internal Medicine 07/30/22 [employer] Machine Operator Relationship Specialty Start Date End Date Juan Pablo Alaniz MD [address] [facility] [address] [place] [address] PCP - Peg MA 03/24/21 Juan Pablo Alaniz MD [address] [place] [address] PCP - General Internal Medicine 07/30/22 [employer] Machine Operator Relationship Specialty Start Date End Date Juan Pablo Alaniz MD [address] [place] [address] PCP - Peg CHURCHILL 03/24/21 Juan Pablo Alaniz MD [address] [place] [address] PCP - General Internal Medicine 07/30/22 [employer] Operator Relationship Specialty Start Date End Date Juan Pablo Alaniz MD [address] [place] [address] PCP - Peg CHUR[place] 03/24/21 Juan Pablo Alaniz MD [address] [place] [address] PCP - General Internal Medicine 07/30/22 [employer] Operator Relationship Specialty Start Date End Date Juan Pablo Alaniz MD [address] [place] [address] PCP - Peg MA 03/24/21 Juan Pablo Alaniz MD [address] [place] [address] PCP - General Internal Medicine 07/30/22 Reason for Visit (unrecogniz ed section and content) Reason Comments Hospital Follow-up Reason Comments Edema Reason Comments Follow-up [facility] observation: adm itted 01/22/24 dx: syncope,hypotension,dehydration discharged home 01/23/24 no med changes made URI FOR RECORDS PERTAINING TO PATIENTS WHO ARE [...] BE BASED ON THE PRIMARY CLINICAL RECORDS. [facility] [facility]. provides no warranty or guarantee of the accuracy or completeness of information in this document.
--- NOTE | 2024-02-01 04:43 | XR_ITS ---
The [address] [address] Patient Name: NAT MOORE MRN: [id number] date: 1940 Sex: M Assigned Patient Location: ER Current Patient Location: ED.MAIN Accession/Order Number: [id number] Exam Date: 02/01/2024 05:55 Report Date: 02/01/2024 06:34 At the request of: DANNY VIDAL Procedure: XR pelvis 1-2V HISTORY: Status post trauma from a fall. XR pelvis 1-2V: 02/01/2024 5:55 AM EST COMPARISON: None. FINDINGS: There are degenerative changes of the visualized lower lumbar spine and sacroiliac joints. There are mild degenerative changes of the hips bilaterally. No fracture is seen. There are calcified phleboliths in the pelvis. There are vascular calcifications. XR/XR pelvis 1-2V IMPRESSION: 1. No fracture is seen. 2. There are degenerative changes as described above. Electronically authenticated by: GUY BATES Date: 02/01/2024 06:34
--- NOTE | 2024-02-01 04:43 | ECG_ITS ---
[facility] Test Date: 2024-02-01 Pat Name: NAT MOORE Department: Room: - Gender: Male Field Talent Qualification Specialist: : 1940 Requested By: JASON CRUZ Order Number: [id number] Reading MD: GUY KAPOOR Measurements Intervals Spencer Rate: 105 P: 42 NV: 212 QRS: -64 QRSD: 86 T: 66 QT: 328 QTc: 389 Interpretive Statements 1120 Sinus tachycardia 2231 First degree AV block 3634 Inferior myocardial infarction, age undetermined 8003 Consistent with pulmonary disease 8102 Low QRS voltage in chest leads 9150 abnormal ECG Electronically Signed On 02-01-2024 14:09:01 EST by GUY KAPOOR
--- NOTE | 2024-02-01 04:43 | CT_ITS ---
The [place] [id number] Patient Name: NAT MOORE MRN: [id number] date: 1940 Sex: M Assigned Patient Location: ER Current Patient Location: Accession/Order Number: [id number] Exam Date: 02/01/2024 05:55 Report Date: 02/01/2024 06:35 At the request of: DANNY VIDAL Procedure: CT cervical spine wo con EXAM: CT head/brain wo con, CT cervical spine wo con INDICATION: 83 years old; Male. Fall. TECHNIQUE: CT Head (ax/cor/sag reformats). Ionizing radiation dose reduced via iterative reconstruction/FBP blend and body size kV/mA adjustment. Comparison: Head CT dated 01/22/2024. FINDINGS: POSTOPERATIVE CHANGES: None. BRAIN PARENCHYMA: No intraparenchymal or extra-axial hemorrhage. No mass effect. No midline shift or herniation. There is patchy and confluent low-density in the white matter of the hemispheres. VENTRICLES/EXTRA-AXIAL SPACES: Enlarged, consistent with atrophy. SINUSES/MASTOIDS: Frontal, ethmoid, and sphenoid sinus thickening is present. 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 Maxillary sinuses are not completely included. Mastoids and middle ears are clear. MSK: No displaced or depressed calvarial fracture. Extracranial soft tissue swelling is seen in the posterior parietal region. No subjacent calvarial fracture. OTHER: No hyperdense intraluminal thrombus is present. Vascular calcifications are seen. TECHNIQUE: CT imaging of the cervical spine was performed. IV contrast: None. Dose reduction techniques were achieved by using automated exposure control and/or adjustment of mA and/or kV according to patient size and/or use of iterative reconstruction technique. COMPARISON: Cervical CT dated 01/22/2024. FINDINGS: POSTOPERATIVE CHANGES: None. ALIGNMENT: Nonspecific straightening of the normal cervical curve. COMPRESSION FRACTURES: No fracture or vertebral body collapse. No bone destruction. No asymmetric widening of the facets. Generalized bony demineralization is present. PREVERTEBRAL SOFT TISSUES: Normal. CRANIOCERVICAL JUNCTION: There is a normal relationship of the occipital condyles, lateral masses of C1, and articular surfaces of C2. The base of the dens and body of C2 are intact. There is narrowing of the predental space with [id number] appearance associated with spurring arising from the anterior arch of C1 and the tip of the dens. POSTERIOR FOSSA: The cerebellar tonsils are above the foramen magnum. There is thickening of the transverse ligament. Disc levels: C2-C3: No disc herniation. No spinal canal or foraminal narrowing. C3-C4: No disc herniation. No spinal canal or foraminal narrowing. C4-C5: Disc space narrowing. Central disc osteophyte complex posteriorly. Anterior osteophyte formation. Central canal is mildly narrowed. Neural foramina patent. C5-C6: Disc space narrowing. Bulky bridging anterior osteophytes. Central disc osteophyte complex projects greater to the left than the right. Mild central canal stenosis. Mild to moderate left foraminal stenosis. C6-C7: Disc space narrowing. Central and right-sided disc osteophyte complex. Anterior osteophytes. Uncovertebral joint degeneration the left. Mild left foraminal stenosis. C7-T1: Beam hardening artifacts. Facet degeneration. Central canal patent. Left neural foraminal narrowing. UPPER THORACIC SPINE: At T1-T2, Beam hardening artifacts. Facet degeneration bilaterally. There is vacuum disc material present within the neural foramina on the right. Central canal patent. Mild foraminal stenosis. OTHER: No thyroid nodule or adenopathy. CT/CT cervical spine wo con IMPRESSION: 1. No acute intracranial abnormality. No hemorrhage or mass effect. 2. Nonspecific white matter changes. 3. Atrophy. 4. Extracranial soft tissue swelling in the posterior parietal region. No calvarial fracture. 5. Vascular calcifications. 6. Multilevel cervical spondylosis. No acute fracture. Please see the detailed discussion of the individual levels in the body of this report. Electronically authenticated by: RODRIGUEZ MATHEW Date: 02/01/2024 06:35
--- NOTE | 2024-02-01 04:43 | XR_ITS ---
The [address] [address] Patient Name: NAT MOORE MRN: [id number] date: 1940 Sex: M Assigned Patient Location: ER Current Patient Location: ER Accession/Order Number: [id number] Exam Date: 02/01/2024 05:55 Report Date: 02/01/2024 06:53 At the request of: DANNY VIDAL Procedure: XR chest 1V HISTORY: Status post fall. Weakness. XR chest 1V: 02/01/2024 5:55 AM EST COMPARISON: Portable AP chest 01/22/2024. FINDINGS: The heart again appears enlarged. A dual lead left subclavian pacemaker is again seen. No focal consolidation, pleural effusion, pneumothorax or evidence of congestive heart failure is seen. XR/XR chest 1V IMPRESSION: There is a similar appearance of cardiomegaly, but there is no evidence of active pulmonary disease. Electronically authenticated by: GUY BATES Date: 02/01/2024 06:53
--- NOTE | 2024-02-01 04:43 | CT_ITS ---
The [place] [id number] Patient Name: NAT MOORE MRN: [id number] date: 1940 Sex: M Assigned Patient Location: ER Current Patient Location: Accession/Order Number: [id number] Exam Date: 02/01/2024 05:55 Report Date: 02/01/2024 06:35 At the request of: DANNY VIDAL Procedure: CT head/brain wo con EXAM: CT head/brain wo con, CT cervical spine wo con INDICATION: 83 years old; Male. Fall. TECHNIQUE: CT Head (ax/cor/sag reformats). Ionizing radiation dose reduced via iterative reconstruction/FBP blend and body size kV/mA adjustment. Comparison: Head CT dated 01/22/2024. FINDINGS: POSTOPERATIVE CHANGES: None. BRAIN PARENCHYMA: No intraparenchymal or extra-axial hemorrhage. No mass effect. No midline shift or herniation. There is patchy and confluent low-density in the white matter of the hemispheres. VENTRICLES/EXTRA-AXIAL SPACES: Enlarged, consistent with atrophy. SINUSES/MASTOIDS: Frontal, ethmoid, and sphenoid sinus thickening is present. 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 Maxillary sinuses are not completely included. Mastoids and middle ears are clear. MSK: No displaced or depressed calvarial fracture. Extracranial soft tissue swelling is seen in the posterior parietal region. No subjacent calvarial fracture. OTHER: No hyperdense intraluminal thrombus is present. Vascular calcifications are seen. TECHNIQUE: CT imaging of the cervical spine was performed. IV contrast: None. Dose reduction techniques were achieved by using automated exposure control and/or adjustment of mA and/or kV according to patient size and/or use of iterative reconstruction technique. COMPARISON: Cervical CT dated 01/22/2024. FINDINGS: POSTOPERATIVE CHANGES: None. ALIGNMENT: Nonspecific straightening of the normal cervical curve. COMPRESSION FRACTURES: No fracture or vertebral body collapse. No bone destruction. No asymmetric widening of the facets. Generalized bony demineralization is present. PREVERTEBRAL SOFT TISSUES: Normal. CRANIOCERVICAL JUNCTION: There is a normal relationship of the occipital condyles, lateral masses of C1, and articular surfaces of C2. The base of the dens and body of C2 are intact. There is narrowing of the predental space with [id number] appearance associated with spurring arising from the anterior arch of C1 and the tip of the dens. POSTERIOR FOSSA: The cerebellar tonsils are above the foramen magnum. There is thickening of the transverse ligament. Disc levels: C2-C3: No disc herniation. No spinal canal or foraminal narrowing. C3-C4: No disc herniation. No spinal canal or foraminal narrowing. C4-C5: Disc space narrowing. Central disc osteophyte complex posteriorly. Anterior osteophyte formation. Central canal is mildly narrowed. Neural foramina patent. C5-C6: Disc space narrowing. Bulky bridging anterior osteophytes. Central disc osteophyte complex projects greater to the left than the right. Mild central canal stenosis. Mild to moderate left foraminal stenosis. C6-C7: Disc space narrowing. Central and right-sided disc osteophyte complex. Anterior osteophytes. Uncovertebral joint degeneration the left. Mild left foraminal stenosis. C7-T1: Beam hardening artifacts. Facet degeneration. Central canal patent. Left neural foraminal narrowing. UPPER THORACIC SPINE: At T1-T2, Beam hardening artifacts. Facet degeneration bilaterally. There is vacuum disc material present within the neural foramina on the right. Central canal patent. Mild foraminal stenosis. OTHER: No thyroid nodule or adenopathy. CT/CT head/brain wo con IMPRESSION: 1. No acute intracranial abnormality. No hemorrhage or mass effect. 2. Nonspecific white matter changes. 3. Atrophy. 4. Extracranial soft tissue swelling in the posterior parietal region. No calvarial fracture. 5. Vascular calcifications. 6. Multilevel cervical spondylosis. No acute fracture. Please see the detailed discussion of the individual levels in the body of this report. Electronically authenticated by: RODRIGUEZ MATHEW Date: 02/01/2024 06:35
[2024-02-01 05:36] LABS: Basophils Percent Auto 0.3 % (0.2-2.0); Eosinophils Absolute Auto 0.2 10^3/uL (0.0-0.7); Eosinophils Percent Auto 1.1 % (0.9-7.0); Hemoglobin 11.4 g/dL (14.0-18.0); Immature Granulocytes Abs Auto 0.06 10^3/uL (0.00-0.03); Immature Granulocytes Pct Auto 0.4 % (0.0-0.5); Lymphocytes Absolute Auto 0.8 10^3/uL (1.2-3.8); Lymphocytes Percent Auto 5.8 % (20.5-60.0); Mean Corpuscular HGB Conc 32.6 g/dL (29.9-35.2); Mean Corpuscular Hemoglobin 31.4 pg (25.9-34.0); Mean Corpuscular Volume 96.4 fL (80.0-94.0); Mean Platelet Volume 11.4 fL (9.5-13.5); Monocytes Percent Auto 6.9 % (1.7-12.0); Neutrophils Absolute Auto 11.8 10^3/uL (1.4-6.5); Neutrophils Percent Auto 85.5 % (43.0-75.0); Platelet Count 166 10^3/uL (150-450); Red Blood Count 3.63 10^6/uL (4.70-6.10); White Blood Count 13.9 10^3/uL (4.0-11.0)
[2024-02-01 05:53] LABS: Alanine Aminotransferase 14 U/L (16-63); Albumin Globulin Ratio 0.8; Albumin Level 2.9 g/dL (3.4-5.0); Alkaline Phosphatase 103 U/L (46-116); Anion Gap 13.7; Aspartate Amino Transferase 17 U/L (15-37); BUN Creatinine Ratio 14.4; Bilirubin Total 0.5 mg/dL (0.2-1.0); Calcium 8.8 mg/dL (8.5-10.1); Carbon Dioxide 28.2 mmol/L (21.0-32.0); Chloride 105 mmol/L (98-107); Estimated GFR (African America 40 (>=60 mL/min/1.73m^2); Estimated GFR (Non-African Ame 33 (>=60 mL/min/1.73m^2); Globulin 3.7 g/dL; Glucose 144 mg/dL (74-106); Potassium 4.9 mmol/L (3.5-5.1); Sodium 142 mmol/L (136-145); Total Protein 6.6 g/dL (6.4-8.2)
--- NOTE | 2024-02-01 06:10 | ED.GENADUL1 ---
HPI HPI - General Adult General Chief complaint: Fall Stated complaint: fall Time Seen by Provider: 02/01/24 04:31 Source: patient Mode of arrival: ambulance Limitations: no limitations History of Present Illness HPI narrative: 83-year-old male to the emergency department with chief complaint of fall out of bed. Patient reports that he feels generally weak. He denies any fever, sweats, chills, chest pain, shortness of breath, abdominal pain, nausea, vomiting, diarrhea, blood in the stool or dark tarry stools. He denies any cough, rhinorrhea, sore throat. Patient does not know what happened but believes he rolled out of bed onto the ground. He is unsure if he hit his head. He reports pain in his neck. He denies any back pain. He was not able to ambulate at home so a squad was called for lift assist. Related Data Home Medications ?Medication ?Instructions ?Recorded ?Confirmed allopurinol 300 mg tablet 300 mg PO DAILY 07/26/23 01/22/24 docusate sodium 100 mg capsule 100 mg PO DAILY PRN constipation 07/26/23 01/22/24 donepezil 10 mg tablet 10 mg PO BEDTIME 07/26/23 01/22/24 fluoxetine 20 mg capsule 20 mg PO DAILY 07/26/23 01/22/24 gabapentin 100 mg capsule 200 mg PO TID 07/26/23 01/22/24 glipizide 10 mg tablet 10 mg PO BID 07/26/23 01/22/24 meloxicam 15 mg tablet 15 mg PO BEDTIME 07/26/23 01/22/24 methocarbamol 500 mg tablet 500 mg PO BEDTIME 07/26/23 01/22/24 omeprazole 40 mg capsule,delayed 40 mg PO DAILY 07/26/23 01/22/24 release tamsulosin 0.4 mg capsule 0.4 mg PO DAILY 07/26/23 01/22/24 furosemide 40 mg tablet 40 mg PO DAILY 11/15/23 01/22/24 potassium chloride 20 mEq 20 meq PO DAILY 11/15/23 01/22/24 tablet,extended release(part/cryst) trospium 60 mg capsule,extended 60 mg PO DAILY 11/15/23 01/22/24 release 24 hr amlodipine 5 mg tablet 5 mg PO .QD 01/22/24 01/22/24 aspirin 81 mg chewable tablet 1 tab PO .QD 01/22/24 01/22/24 atorvastatin 40 mg tablet 40 mg PO .QHS 01/22/24 01/22/24 fluoxetine 10 mg capsule 10 mg PO DAILY 01/22/24 01/22/24 oxybutynin chloride 5 mg 5 mg PO .QHS 01/22/24 01/22/24 tablet,extended release 24 hr quetiapine 25 mg tablet 25 mg PO BID 01/22/24 01/22/24 trazodone 100 mg tablet 100 mg PO .QHS 01/22/24 01/22/24 Previous Rx's ?Medication ?Instructions ?Recorded candesartan 32 mg tablet (Atacand) 32 mg PO DAILY #30 tabs 10/07/23 Allergies Allergy/AdvReac Type Severity Reaction Status Date / Time Penicillins Allergy Intermediate Unknown Verified 02/01/24 04:41 Opioid HPI Opioid Management Most Recent Opioid Data: Last Pain Scale 10 02/01/24 04:40 02/01/24 Last ED Pain Assessment 02/01/24 04:40 Last ORT Total Score 0 01/22/24 18:49 01/22/24 Last ORT Risk Category Low Risk 01/22/24 18:49 01/22/24 Ur Phencyclidine Scrn Negative (NEGATIVE) 07/26/23 08:10 07/26/23 Review of Systems ROS Status of ROS 10 or more systems reviewed and unremarkable except as noted in history and below [facility] Medical History (Updated 02/01/24 @ 06:15 by Bakari Miranda MD) History of pacemaker ?Z95.0 - Presence of cardiac pacemaker (ICD-10) Vomiting ?R11.10 - Vomiting, unspecified (ICD-10) Acute metabolic encephalopathy ?G93.41 - Metabolic encephalopathy (ICD-10) 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 (ICD-10) Low back pain ?M54.50 - Low back pain, unspecified (ICD-10) Dementia ?F03.90 - Unspecified dementia, unspecified severity, without behavioral disturbance, psychotic disturbance, mood disturbance, and anxiety (ICD-10) Depression ?F32.A - Depression, unspecified (ICD-10) Hyperuricemia ?E79.0 - Hyperuricemia without signs of inflammatory arthritis and tophaceous disease (ICD-10) HLD (hyperlipidemia) ?E78.5 - Hyperlipidemia, unspecified (ICD-10) Type 2 diabetes mellitus ?E11.9 - Type 2 diabetes mellitus without complications (ICD-10) HTN (hypertension) ?I10 - Essential (primary) hypertension (ICD-10) Surgical History Pacemaker ?Z95.0 - Presence of cardiac pacemaker (ICD-10) Social History (Updated 01/22/24 @ 18:51 by Kalli Middleton) Within the past year, how often did you have a drink containing alcohol: never Within the past year, how many standard drinks containing alcohol did you have on a typical day: 1 or 2 Within the past year, how often did you have six or more drinks on one occasion: never Total score: 0 Score interpretation: A score less than 4 is consistent with normal alcohol consumption. Smoking status: Never smoker Non-prescribed substance use: denies use Highest level of school completed/degree received: high school graduate Are you now , , , , never or living with a partner: Little interest or pleasure in doing things: not at all Feeling down, depressed, or hopeless: not at all Feel stressed/tense/nervous/anxious/difficulty sleeping: not at all Exam Narrative Exam Narrative: Primary Survey Airway Intact Lung sounds clear and equal bilaterally Pulses full and equal to femoral, radial, and dorsalis pedis bilaterally Heart regular rate and rhythm Skin warm, dry, pink GCS 14, confusion Movement and sensation intact to all extremities Patient Fully Exposed. No evidence of trauma Secondary Survey General: GCS 14; Alert, confused HEENT: Head atraumatic; Facial bones stable; Eyes normal inspection, Pupils round, 4-2mm blt; No evidence of oropharyngeal trauma; No blood in the nares or septal hematoma; Tympanic Membranes intact, no hemotympanum or drainage Neck: Normal inspection; no midline cervical tenderness.; No tracheal deviation; No JVD Resp: Normal breath sounds, no wheeze or crackles; No chest wall tenderness, crepitus, or subcutaneous emphysema; No visible evidence of chest wall trauma; Chest rise symmetric; No respiratory distress Heart: Heart rate and rhythm regular; Carotid, radial, femoral, dorsalis pedis pulses +2 and equal bilaterally; No Murmurs Abdomen: Soft; Non-tender No ecchymosis or visible wounds to abdominal wall; No distention, guarding, rigidity, or rebound; Pelvis stable, no pain on compression MSK: All major joints with normal ROM. No deformities. No bony tenderness. No tenderness or step-offs to palpation of thoracic or lumbar spine; No ecchymosis or wounds to upper or lower back Neuro: Alert and oriented; Sensation intact and symmetric bilaterally; muscle strengths symmetric bilaterally in the upper and lower extremities. Skin: Color normal; No rash; Warm; Dry Constitutional Vital Signs, click to edit/add: Last Vital Signs Temp 99.9 F 02/01/24 04:35 Pulse 106 H 02/01/24 04:35 Resp 20 02/01/24 04:35 BP 144/58 H 02/01/24 04:35 Pulse Ox 96 02/01/24 04:35 O2 Del Method Room Air 02/01/24 04:35 Course Vital Signs Vital signs: Vital Signs Temperature 99.9 F 02/01/24 04:35 Pulse Rate 106 H 02/01/24 04:35 Respiratory Rate 20 02/01/24 04:35 Blood Pressure 144/58 H 02/01/24 04:35 Pulse Oximetry 96 02/01/24 04:35 Oxygen Delivery Method Room Air 02/01/24 04:35 Temperature 99.9 F 02/01/24 04:35 Pulse Rate 106 H 02/01/24 04:35 Respiratory Rate 20 02/01/24 04:35 Blood Pressure 144/58 H 02/01/24 04:35 Pulse Oximetry 96 02/01/24 04:35 Oxygen Delivery Method Room Air 02/01/24 04:35 Medical Decision Making [facility] Narrative Medical decision making narrative: Confused 83-year-old male to the emergency department with chief complaint of accidental fall and generalized weakness. Vital stable, the patient is afebrile. No traumatic injuries were identified on exam. He was nonambulatory at the scene. CT head and cervical spine are ordered. Chest x-ray, pelvis x-ray. Basic labs. Lab work reviewed and noted. No major abnormalities. Care signed out to Dr. Welch with results of urinalysis and ambulatory challenge pending. Diagnosis: Accidental fall Generalized weakness Medical Records Medical records reviewed: Yes I reviewed the patient's medical records Lab Data Lab results reviewed: Yes I reviewed the patient's lab results Labs: Lab Results 02/01/24 Range/Units 05:10 WBC 13.9 H (4.0-11.0) 10^3/uL RBC 3.63 L (4.70-6.10) 10^6/uL Hgb 11.4 L (14.0-18.0) g/dL Hct 35.0 L (42.0-54.0) % MCV 96.4 H (80.0-94.0) fL MCH 31.4 (25.9-34.0) pg MCHC 32.6 (29.9-35.2) g/dL RDW 14.0 (11.0-15.0) % Plt Count 166 (150-450) 10^3/uL MPV 11.4 (9.5-13.5) fL Neut % (Auto) 85.5 H (43.0-75.0) % Lymph % (Auto) 5.8 L (20.5-60.0) % [place] % (Auto) 6.9 (1.7-12.0) % Eos % (Auto) 1.1 (0.9-7.0) % Baso % (Auto) 0.3 (0.2-2.0) % Neut # (Auto) 11.8 H (1.4-6.5) 10^3/uL Lymph # (Auto) 0.8 L (1.2-3.8) 10^3/uL [place] # (Auto) 1.0 H (0.3-0.8) 10^3/uL Eos # (Auto) 0.2 (0.0-0.7) 10^3/uL Baso # (Auto) 0.0 (0.0-0.1) 10^3/uL Abs Immat Gran (auto) 0.06 H (0.00-0.03) 10^3/uL Imm/Tot Granulo (auto) 0.4 (0.0-0.5) % Sodium 142 (136-145) mmol/L Potassium 4.9 (3.5-5.1) mmol/L Chloride 105 (98-107) mmol/L Carbon Dioxide 28.2 (21.0-32.0) mmol/L Anion Gap 13.7 BUN 28.0 H (7.0-18.0) mg/dL Creatinine 1.94 H (0.70-1.30) mg/dL Est GFR ( Amer) 40 L (>=60 mL/min/1.73m^2) Est GFR (Non-Af Amer) 33 L (>=60 mL/min/1.73m^2) BUN/Creatinine Ratio 14.4 Glucose 144 H (74-106) mg/dL Calcium 8.8 (8.5-10.1) mg/dL Total Bilirubin 0.5 (0.2-1.0) mg/dL AST 17 (15-37) U/L ALT 14 L (16-63) U/L Alkaline Phosphatase 103 (46-116) U/L Troponin I High Sens 7.0 (4.0-76.1) pg/mL Total Protein 6.6 (6.4-8.2) g/dL Albumin 2.9 L (3.4-5.0) g/dL Globulin 3.7 g/dL Albumin/Globulin Ratio 0.8 Imaging Data Imaging: Radiologist's impression: ITS Impressions Cervical Spine CT 02/01/24 04:43 IMPRESSION: 1. No acute intracranial abnormality. No hemorrhage or mass effect. 2. Nonspecific white matter changes. 3. Atrophy. 4. Extracranial soft tissue swelling in the posterior parietal region. No calvarial fracture. 5. Vascular calcifications. 6. Multilevel cervical spondylosis. No acute fracture. Please see the detailed discussion of the individual levels in the body of this report. Electronically authenticated by: RODRIGUEZ MATHEW Date: 02/01/2024 06:[address] 02/01/24 04:43 IMPRESSION: 1. No acute intracranial abnormality. No hemorrhage or mass effect. 2. Nonspecific white matter changes. 3. Atrophy. 4. Extracranial soft tissue swelling in the posterior parietal region. No calvarial fracture. 5. Vascular calcifications. 6. Multilevel cervical spondylosis. No acute fracture. Please see the detailed discussion of the individual levels in the body of this report. Electronically authenticated by: RODRIGUEZ MATHEW Date: 02/01/2024 06:35 Pelvis X-Ray 02/01/24 04:43 IMPRESSION: 1. No fracture is seen. 2. There are degenerative changes as described above. Electronically authenticated by: GUY BATES Date: 02/01/2024 06:34 ECG Data Attestation: I personally reviewed and interpreted this ECG as follows: (Sinus tachycardia at 105. No STEMI. Normal QTc.) Discharge Plan Discharge Patient Disposition: Still a Patient
[2024-02-01] MEDS: ACETAMINOPHEN 325 MG TABLET 650 MG PO (06:33)
[2024-02-01] MEDS: LIDOCAINE 2% JELLY 20 ML UR (06:33)
[2024-02-01 07:22] LABS: Bilirubin Urine NEGATIVE (NEGATIVE); Blood Urine TRACE-L (NEGATIVE); Clarity Urine CLEAR (CLEAR); Color Urine LT. YELLOW (YELLOW); Glucose Urine UA NEGATIVE (NEGATIVE); Ketones Urine NEGATIVE (NEGATIVE); Leukocyte Esterase Urine NEGATIVE (NEGATIVE); Nitrite Urine NEGATIVE (NEGATIVE); Protein Urine NEGATIVE (NEG/TRACE)
[2024-02-01 07:46] LABS: Urine Microscopic Indicated YES
[2024-02-01 07:47] LABS: Bacteria Urine NONE SEEN #/HPF (NONE SEEN); Cast Seen? NONE SEEN #/LPF (NONE SEEN); Crystals Seen? None Seen #/HPF (None Seen); Mucus Urine NONE SEEN (NONE SEEN); RBC Urine 0-2 #/HPF (0-2); Squamous Epithelial Cell Urine RARE #/LPF (NONE/RARE); Urine Culture Indicated NO; WBC Urine 0-2 #/HPF (NONE SEEN)
[2024-02-01 08:54] LABS: Glucometer 136 mg/dL (74-106)
[2024-02-01] MEDS: ONDANSETRON PF 4 MG/2 ML VIAL IV (09:00)
--- NOTE | 2024-02-01 09:00 | XR_ITS ---
The [address] [address] Patient Name: NAT MOORE MRN: [id number] date: 1940 Sex: M Assigned Patient Location: ER Current Patient Location: ER Accession/Order Number: [id number] Exam Date: 02/01/2024 09:19 Report Date: 02/01/2024 09:31 At the request of: NOEL LAINEZ Procedure: XR chest 1V EXAM: XR chest 1V INDICATION: cough. COMPARISON: Chest radiograph 01/01/2024 TECHNIQUE: Single frontal view of the chest FINDINGS: Left-sided dual-lead ICD in place. Stable enlargement of the cardiac silhouette. Normal pulmonary vasculature. No acute infiltrative process. No pleural effusion or pneumothorax. No acute osseous abnormality. XR/XR chest 1V IMPRESSION: No acute cardiopulmonary process. Electronically authenticated by: LEONEL FELIX Date: 02/01/2024 09:31
[2024-02-01] MEDS: AZITHROMYCIN 500 MG in 0.9 % SODIUM CHLORIDE 250 ML 250 MG IV (10:07)
[2024-02-01] MEDS: 0.9 % SODIUM CHLORIDE 1,000 ML 500 ML IV (10:08)
[2024-02-01] MEDS: DOXYCYCLINE HYCLATE 100 MG in 0.9 % SODIUM CHLORIDE 100 ML IV (11:16)
--- NOTE | 2024-02-01 13:11 | P.HP_ITS ---
HPI H&P: HPI History of Present Illness Chief complaint: fall, PNEUMONIA, LEFT FOOT CELLULITIS Narrative: Patient presented to the emergency room status post fall. Somewhat more confused today as well. Has had a cough the last couple of days. In the emergency room found to have significant tachycardia and respiratory distress with early left foot cellulitis but early possible left lower lobe pneumonia. Chest x-ray is unremarkable but on exam was consistent with left lower lobe pn eumonia Opioid HPI Opioid Management Most Recent Pain and Opioid Data: Last Pain Scale 10 02/01/24 04:40 02/01/24 Last Pain Assessment 02/01/24 15:00 Last ED Pain Assessment 02/01/24 04:40 Last ORT Total Score 0 01/22/24 18:49 01/22/24 Last ORT Risk Category Low Risk 01/22/24 18:49 01/22/24 Ur Phencyclidine Scrn Negative (NEGATIVE) 07/26/23 08:10 05/0 07/15 Review of Systems ROS Status of ROS 10 or more systems reviewed and unremark able except as noted in history and below [facility] Medical History History of pacemaker ?Z95.0 - Presence of cardiac pacemaker (ICD-10) Vomiting ?R11.10 - Vomiting, unspecified (ICD-10) Acute metabolic encephalopathy ?G93.41 - Metabolic encephalopathy (ICD-10) 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 (ICD-10) Low back pain ?M54.50 - Low back pain, unspecified (ICD-10) Dementia ?F03.90 - Unspecified dementia, unspecified severity, without behavioral disturbance, psychotic disturbance, mood disturbance, and anxiety (ICD-10) Depression ?F32.A - Depression, unspecified (ICD-10) Hyperuricemia ?E79.0 - Hyperuricemia without signs of inflammatory arthritis and tophaceous disease (ICD-10) HLD (hyperlipidemia) ?E78.5 - Hyperlipidemia, unspecified (ICD-10) Type 2 diabetes mellitus ?E11.9 - Type 2 diabetes mellitus without complications (ICD-10) HTN (hypertension) ?I10 - Essential (primary) hypertension (ICD-10) Surgical History Pacemaker ?Z95.0 - Presence of cardiac pacemaker (ICD-10) Social History (Updated 01/22/24 @ 18:51 by Kalli Middleton) Within the past year, how often did you have a drink containing alcohol: never Within the past year, how many standard drinks containing alcohol did you have on a typical day: 1 or 2 Within the past year, how often did you have six or more drinks on one occasion: never Total score: 0 Score interpretation: A score less than 4 is consistent with normal alcohol c onsumption. Smoking status: Never smoker Non-prescribed substance use: denies use Highest level of school completed/degree received: high school graduate Are you now , , , , never or living with a partner: Little interest or pleasure in doing things: not at all Feeling down, depressed, or hopeless: not at all Feel stressed/tense/nervous/anxious/difficulty sleeping: not at all Meds Home Medications and Allergies Home Medications ?Medication ?Instructions ?Recorded ?Confirmed ?Type allopurinol 300 mg tablet 300 mg PO DAILY 07/26/23 02/01/24 History docusate sodium 100 mg capsule 100 mg PO DAILY PRN constipation 07/26/23 02/01/24 History donepezil 10 mg tablet 10 mg PO BEDTIME 07/26/23 02/01/24 History fluoxetine 20 mg capsule 20 mg PO DAILY 07/26/23 02/01/24 History gabapentin 100 mg capsule 200 mg PO TID 07/26/23 02/01/24 History glipizide 10 mg tablet 10 mg PO BID 07/26/23 02/01/24 History meloxicam 15 mg tablet 15 mg PO BEDTIME 07/26/23 02/01/24 History methocarbamol 500 mg tablet 500 mg PO BEDTIME 07/26/23 02/01/24 History omeprazole 40 mg capsule,delayed 40 mg PO .ACB 07/26/23 02/01/24 History release tamsulosin 0.4 mg capsule 0.4 mg PO DAILY 07/26/23 02/01/24 History candesartan 32 mg tablet (Atacand) 32 mg PO DAILY #30 tabs 10/07/23 02/01/24 Rx furosemide 40 mg tablet 40 mg PO DAILY 11/15/23 02/01/24 History potassium chloride 20 mEq 20 meq PO DAILY 11/15/23 02/01/24 History tablet,extended release(part/cryst) trospium 60 mg capsule,extended 60 mg PO DAILY 11/15/23 02/01/24 History release 24 hr amlodipine 5 mg tablet 5 mg PO .QD 01/22/24 02/01/24 History aspirin 81 mg chewable tablet 1 tab PO .QD 01/22/24 02/01/24 History atorvastatin 40 mg tablet 40 mg PO .QHS 01/22/24 02/01/24 History fluoxetine 10 mg capsule 10 mg PO DAILY 01/22/24 02/01/24 History oxybutynin chloride 5 mg 5 mg PO .QHS 01/22/24 02/01/24 History tablet,extended release 24 hr quetiapine 25 mg tablet 25 mg PO BID 01/22/24 02/01/24 History trazodone 100 mg tablet 100 mg PO .QHS 01/22/24 02/01/24 History azithromycin 500 mg tablet 500 mg PO DAILY 02/01/24 02/01/24 History chlorpheniramine-acetaminophen 2 2 tab PO Q6H 02/01/24 02/01/24 History mg-325 mg tablet (Coricidin HBP Cold and Flu) lidocaine 5 % topical patch 1 patch topical QAM 02/01/24 02/01/24 History Allergies Allergy/AdvReac Type Severity Reaction Status Date / Time Penicillins Allergy Intermediate Unknown Verified 02/01/24 04:41 Exam Constitutional Vital Signs, click to edit/add: Last Vital Signs Temp 98.2 F 02/01/24 10:40 Pulse 79 02/01/24 13:00 Resp 16 02/01/24 13:00 BP 112/60 02/01/24 12:30 Pulse Ox 92 L 02/01/24 13:00 O2 Del Method Room Air 02/01/24 04:35 Documenting provider has reviewed patient's vital signs: yes Common normals: no apparent distress Chest Common normals: inspection of chest normal Respiratory Common normals: normal respiratory effort and no retractions Auscultation: rhonchi (More pronounced in left lower lobe) Cardio Common normals: regular rhythm Rate: tachycardic GI Common normals: negative for Normal to inspection, nondistended, normoactive bowel sounds present (Morbid obesity) Extremity Common normals: abnormal to inspection (Left foot mild early cellulitis) Neuro Common normals: CN's II-XII intact bilaterally and moves all extremities Other: Somewhat confused Results Labs Labs: Short CBC 02/01/24 Range/Units 05:10 WBC 13.9 H (4.0-11.0) 10^3/uL Hgb 11.4 L (14.0-18.0) g/dL Hct 35.0 L (42.0-54.0) % Plt Count 166 (150-450) 10^3/uL BMP 02/01/24 05:10 Sodium 142 Potassium 4.9 Chloride 105 Carbon Dioxide 28.2 BUN 28.0 H Creatinine 1.94 H Glucose 144 H Calcium 8.8 Liver Function 02/01/24 Range/Units 05:10 Total Bilirubin 0.5 (0.2-1.0) mg/dL AST 17 (15-37) U/L ALT 14 L (16-63) U/L Alkaline Phosphatase 103 (46-116) U/L Albumin 2.9 L (3.4-5.0) g/dL Urine 02/01/24 Range/Units 06:45 Urine Color Lt. yellow (YELLOW) Urine Clarity Clear (CLEAR) Urine pH 7.0 (5.0-9.0) Ur Specific [place] 1.010 (1.005-1.025) Urine Protein Negative (NEG/TRACE) mg/dL Urine Glucose (UA) Negative (NEGATIVE) mg/dL Assessment and Plan Assessment and Plan (1) Cellulitis: (2) Pneumonia: (3) Generalized weakness: (4) Accidental fall: Plan Admission findings: Hyperglycemia, sinus tachycardia, mild respiratory distress, mild alteration in mental status, leukocytosis, iron deficiency anemia, elevated creatinine, secondary to left lower lobe pneumonia and left foot cellulitis. Altered mental status-likely secondary to the infections as outlined above will monitor daily, on telemetry Early left lower lobe pneumonia on exam, consider repeat chest x-ray in a.m. Likely not developing secondary to mild dehydration with a mild acute kidney injury. IV antibiotics, aerosol treatments, try to obtain sputum culture Early left foot cellulitis. Will hold off on surgical intervention, continue with antibiotics for the above. Acute kidney injury-baseline creatinine 1.48, admission creatinine of 1.94 which is 131.0% above baseline-IV fluids and serial labs Mild protein calorie malnutrition-diet management Leukocytosis secondary to above-monitor daily Iron deficiency anemia-monitor daily Diabetes mellitus-insulin sliding scale Gout-not active-continue with home medications Coronary artery disease with hypercholesterolemia-continue with home medications Hypertension-continue with home medications, hold off on diuretics Mild dementia-continue with home medications Depression with anxiety and insomnia-continue with home medications Diabetic peripheral neuropathy-continue with home medications, hold off on meloxicam Bladder spasms-continue with home medications GERD-continue with home medications BPH-continue with home medications Admission status: Patient with mild alteration mental status increasing cough and weakness secondary to the left lower lobe pneumonia and also early left foot cellulitis. Starting patient on fluids for the acute kidney injury, better than 50% chance he will be discharged to home tomorrow's will start patient off in the observational time. If fails the observational time. By tomorrow, he will require inpatient status for medically necessary treatment Urinary Catheter Management Urinary Catheter Management Straight: Cath placed during this visit: yes Urethral indwelling: No Insertion time: 06:34
[2024-02-01 13:59] LABS: Lactate/Lactic Acid 1.2 mmol/L (0.4-2.0)
[2024-02-01 14:03] LABS: Magnesium 1.5 mg/dL (1.8-2.4); Thyroid Stimulating Hormone 0.507 uIU/mL (0.358-3.740)
[2024-02-01] MEDS: DEXAMETHASONE SOD PHOS 10 MG/ML VIAL 6 MG IV (14:16)
[2024-02-01] MEDS: 0.9 % SODIUM CHLORIDE 1,000 ML 75 ML IV (14:17)
--- OUTSIDE RECORDS SUMMARY | 2024-02-01 14:42 | XMS_ITS | CCD ---
Author Organization [facility] Care Team Providers Care Land Acquisition Manager Name Role Phone JUAN PABLO ALANIZ Primary Care Physician [phone] DR JUAN PABLO ALANIZ Primary Care Unavailable [...] Freeman Consulting Unavailable [place] ., DR VINH Fereman Admitting Unavailable [place] ., DR VINH Freeman [...] Care Unavailable Juan Pablo Alaniz MD Unavailable [phone] Juan Pablo Alaniz MD Primary Care Provider [...] Translations: [penicillin] Drug Allergy 12-01-[address] [facility] (3 sources) Penicillins; Translations: [PENICILLINS] Drug allergy (disorder) 11-15-2023 [facility] (10 sources) Penicillin G Drug Allergy 11-01-2022 Unknown [facility] Work Phone: (9 sources) Codeine Drug Allergy 12-25-2023 [facility] Medications Current Medications Medication Drug Class(es) [...] Start: 11-28-2022 take 1 capsule by mo [facility] once daily FLUoxetine (PROzac) 20 MG [...] complication, without long-term current use of insulin ([facility]) TAKE ONE TABLET BY MOUTH TWICE [...] Daily, # 30 tab(s), Refills(s) 11, Pharmacy: [email or web address], 167, cm, 09/16/22 15:10:00 EDT, Height/Length Dosing, 120, kg, 09/16/22 15:10:00 EDT, Weight Dosing Start Date: 10/01/23 Status: Ordered Start: 09-16-2022 End: 09-11-2023 take 1 tablet by mouth once daily Vesicare 10 mg Tab 10 mg = 1 tab(s), Oral, Daily, X 30 day(s), # 30 tab(s), Refills(s) 11, Pharmacy: [email or web address], 167, cm, 09/16/22 15:10:00 EDT, Height/Length Dosing, 120, kg, 09/16/22 15:10:00 EDT, Weight Dosing Start Date: 09/16/22 Stop Date: 09/11/23 Status: Ordered Start: 04-26-2022 take 1 tablet by shannon th once daily Vesicare 5 mg Tab 5 mg = 1 tab(s), Oral, Daily, # 30 tab(s), Refills(s) 11, Pharmacy: [facility], 174, cm, 12/03/21 13:40:00 EDT, Height/Length [...] Daily, # 30 cap(s), Refills(s) 11, Pharmacy: [facility], 174, cm, 09/03/21 13:40:00 EDT, [...] Daily, # 30 tab(s), Refills(s) 3, Pharmacy: [id number], 167, cm, 11/11/23 13:29:00 EDT, Height/Length Dosing, [...] disease (12 sources) Atherosclerotic heart disease of [place] coronary artery with unspecified angina pectoris; Translations: [...] 11-29-2021 Episodic Other aftercare (1 source) Other supervisor intermediates (current) drug therapy; Translations: [OTH SENIOR CARE CURRENT DRUG THERAPY] Onset: 07-31-2022 Episodic Other aftercare (1 source) custodial (current) use of oral hypoglycemic drugs; Translations: [AVIATION MAINTENANCE TECHNICIAN USE ORAL HYPOGLYCEMIC DX] Onset: 07-31-2022 Episodic [...] OF COVID-19] Onset: 03-06-2022 Unclassified (1 source) AVIATION MAINTENANCE TECHNICIAN INJECT NONINSULN ANTIDIAB; Translations: [AVIATION MAINTENANCE TECHNICIAN INJECT NONINSULN ANTIDIAB] Onset: 03-02-2022 Unclassified (2 [...] sources) Long-term current use of insulin; Translations: [custodial (current) use of insulin] Onset: 07-23-2017 Resolved: [...] Anion gap [Moles/Vol] 9 mmol/L Normal - [facility] Comment on above: Performed By: #### B MP #### [facility] [address] [place] [address] [place] [address] Academic Registrar: Eliud Leonard MD BUN/CRE Ratio 20 Normal 9- [facility] Comment on above: Performed By: #### B MP #### [facility] [address] [place] [address] Dr. [place], [place] [id number] Academic Registrar: Eliud Leonard MD Calcium [Mass/Vol] 8.5 mg/dL Low 8.6-10.[address] [facility] Comment on above: Performed By: #### B MP #### [facility] [address] [place] [address] Dr. [place], [place] [id number] Academic Registrar: Eliud Leonard MD Chloride [Moles/Vol] 108 mmol/L High 98-[address] [facility] Comment on above: Performed By: #### B MP #### [facility] [address] [place] [address] Dr. [place], [place] [id number] Academic Registrar: Eliud Leonard MD CO2 [Moles/Vol] 26 mmol/L Normal - [facility] Comment on above: Performed By: #### B MP #### [facility] [address] [place] [address] Dr. [place], [place] [id number] Academic Registrar: Eliud Leonard MD Creatinine [Mass/Vol] 1.6 mg/dL High 0.70-1.[address] [facility] Comment on above: Performed By: #### B MP #### [facility] [address] [place] [address] Academic Registrar: Eliud Leonard MD GFR/1.73 sq M.predicted among non-blacks MDRD (S/P/Bld) [Vol rate/Area] 41 mL/min/{1.73_m2} Low >[address] [facility] Comment on above: Result Comment: [...] Performed By: #### B MP #### [facility] [address] [place] [address] [place] [address] Academic Registrar: Eliud Leonard MD Glucose [Mass/Vol] 66 mg/dL Low 74-[address] [facility] Comment on above: Performed By: #### B MP #### [address] [place] [address] Academic Registrar: Eliud Leonard MD Potassium [Moles/Vol] 4.3 mmol/L Normal 3.7-5.[address] [facility] Comment on above: Performed By: #### B MP #### [facility] [address] [place], [place] [phone] Academic Registrar: Eliud Leonard MD Sodium [Moles/Vol] 143 mmol/L Normal 136-[address] [facility] Comment on above: Performed By: #### B MP #### [facility] [address] [place] [address] Academic Registrar: Eliud Leonard MD Urea nitrogen [Mass/Vol] 32 mg/dL High 8-[address] [facility] Comment on above: Performed By: #### B MP #### [facility] [address] [place], [place] [id number] Academic Registrar: Eliud Leonard MD Cult,Urineon 12-01-2023 Cult,Urine Specimen Description .CLEAN CATCH URINE Culture NO SIGNIFICANT GROWTH Report Status FINAL 12/01/[address] [facility] Comment on above: Performed By: #### U RC #### [facility] [address] [place], [place] [id number] Academic Registrar: [place] MD [facility] [address] [place], [place] [phone] Academic Registrar: Eliud Leonard MD Urinalysis, Routineon 2023 Bilirubin, SemiQt,Ur Negative Normal NEG [facility] Comment on above: Performed By: #### U A #### [facility] [address] [place] [address] Dr. [place], [place] [phone] Academic Registrar: Eliud Leonard MD Blood, Urine Negative Normal NEG [facility] Comment on above: Performed By: #### U A #### [facility] [address] [place] [address] Dr. [place], [place] [id number] Academic Registrar: Eliud Leonard MD Clarity (U) Clear Normal CLEAR [facility] Comment on above: Performed By: #### U A #### [facility] [address] [place] [address] Dr. [place], [place] [phone] Academic Registrar: Eliud Leonard MD Color (U) Yellow Normal YEL [facility] Comment on above: Performed By: #### U A #### [facility] [address] [place], [place] [phone] Academic Registrar: Eliud Leonard MD Glucose Ql (U) Negative Normal NEG [facility] Comment on above: Performed By: #### U A #### [facility] [address] [place], [place] [phone] Academic Registrar: Eliud Leonard MD Ketones Ql (U) Negative Normal NEG [facility] Comment on above: Performed By: #### U A #### [facility] [address] [place] [address] Dr. [place], [place] [phone] Academic Registrar: Eliud Leonard MD Leukocyte esterase Test strip Ql (U) Negative Normal NEG [facility] Comment on above: Performed By: #### U A #### [facility] [address] [place] [address] Dr. [place], [place] [phone] Academic Registrar: Eliud Leonard MD Nitrite,Ur Negative Normal NEG [facility] Comment on above: Performed By: #### U A #### [address] [place], [place] [phone] Academic Registrar: Eliud Leonard MD PH,Ur 6.0 Normal 5.0-9.[address] [facility] Comment on above: Performed By: #### U A #### [address] [place], [place] [phone] Academic Registrar: Eliud Leonard MD Protein Ql (U) Negative Normal NEG [facility] Comment on above: Performed By: #### U A #### [address] [place], [place] 4320083 Academic Registrar: Eliud Leonard MD Spec. Hitchcock,Ur 1.020 Normal 1.010-1.020 [facility] Comment on above: Performed By: #### U A #### [address] [place], [place] [id number] Academic Registrar: Eliud Leonard MD Urobilinogen,Ur Normal Normal 0.0-1.0 [facility] Comment on above: Performed By: #### U A #### [address] [place], [place] [phone] Academic Registrar: Eliud Leonard MD CT CERVICAL SPINE WO [...] midline. The ventricles and peripheral sulci are xybv-ju-omqlsfgrmd dilated. There is decreased attenuation in the [...] Deacon Justice MD 11/28/23 Final result Normal [facility] CT HEAD WO CONTRASTon 2023 [...] midline. The ventricles and peripheral sulci are yiks-sq-yjujzvqgfq dilated. There is decreased attenuation in the [...] Deacon Justice MD 11/28/23 Final result Normal [facility] 30on 11-22-2023 30 The patient [...] and maintained or improved Outcome: Progressing Normal [facility] BASIC METABOLIC PANELon 08-3 Anion gap [Moles/Vol] 10 mmol/L Normal 7-20 [facility] Comment on above: Performed By: #### L [id number] ####[facility] ([facility])[address] [place] [address] Calcium [Mass/Vol] 8.0 mg/dL Low 8.6-10.3 [facility] Comment on above: Performed By: #### L [id number] ####[facility] ([facility])[address] [place] [address] Chloride [Moles/Vol] 111 mmol/L High 98-107 [facility] Comment on above: Performed By: #### L [id number] ####[facility] ([facility] [place] [address] CO2 [Moles/Vol] 29 mmol/L Normal 21-31 [facility] Comment on above: Performed By: #### L [id number] ####[facility] ([facility])[address] [place] [address] Creatinine [Mass/Vol] 1.36 mg/dL High 0.70-1.30 [facility] Comment on above: Performed By: #### L [id number] ####[facility] ([facility])[address] [place] [address] GLOMERULAR FILTRATION RATE ML/MIN/1.73 SQ M.PREDICTED 51.0 mL/min/1.73m*2 Low >60.0 [facility] Comment on above: Result Comment: The [facility]???s estimated glomerular filtration rate (eGFR) will [...] of individuals. Performed By: #### L [id number] ####[facility] ([facility] [place] [address] Glucose [Mass/Vol] 150 mg/dL High 70-100 [facility] Comment on above: Performed By: #### L [id number] ####[facility] ([facility] [place] [address] Potassium [Moles/Vol] 3.3 mmol/L Low 3.5-5.1 [facility] Comment on above: Performed By: #### L [id number] ####[facility] ([facility])[address] [place] [address] Sodium [Moles/Vol] 147 mmol/L High 136-145 [facility] Comment on above: Performed By: #### L [id number] ####[facility] ([facility])[address] [place] [address] Urea nitrogen [Mass/Vol] 25 mg/dL Normal 7-25 [facility] Comment on above: Performed By: #### L [id number] ####[facility] ([facility] [place] [address] UREA NITROGEN/CREATININ E (MASS RATIO) IN SER/PLAS 18.4 Normal [facility] Comment on above: Performed By: #### L [id number] ####[facility] ([facility])[address] [place] [address] CBC WITH AUTO DIFFERENTIALon 11-22-2023 Basophils (Bld) [#/Vol] 0.06 10*3/uL Normal 0.00-0.20 [facility] Comment on above: Performed By: #### L [id number] ####[facility] ([facility] [place] [address] Basophils/100 WBC (Bld) 0.7 % Normal 0.0-1.0 [facility] Comment on above: Performed By: #### L [id number] ####[facility] ([facility])[address] [place] [address] Eosinophils (Bld) [#/Vol] 0.37 10*3/uL Normal 0.00-0.50 [facility] Comment on above: Performed By: #### L [id number] ####[facility] ([facility])[address] [place] [address] Eosinophils/100 WBC (Bld) 4.2 % Normal 0.0-6.0 [facility] Comment on above: Performed By: #### L [id number] ####[facility] ([facility])[address] [place] [address] Erythrocyte distribution width (RBC) [Ratio] 15.2 % High 11.5-15.0 [facility] Comment on above: Performed By: #### L [id number] ####[facility] ([facility])[address] [place] [address] ERYTHROCYTE MEAN CORPUSCULAR HEMOGLOBIN CONCENTRATION (G/DL) BY AUTOMATED 32.6 g/dL Normal 32.0-35.0 [facility] Comment on above: Performed By: #### L [id number] ####[facility] ([facility])[address] [place] [address] Hematocrit (Bld) [Volume fraction] 38.3 % Low 39.0-55.0 [facility] Comment on above: Performed By: #### L [id number] ####[facility] ([facility])[address] [place] [address] Hemoglobin (Bld) [Mass/Vol] 12.5 g/dL Low 13.0-17.0 [facility] Comment on above: Performed By: #### L [id number] ####[facility] ([facility])[address] [place] [address] Immature granulocytes (Bld) [#/Vol] 0.15 10*3/uL Normal 0.00-0.20 [facility] Comment on above: Performed By: #### L [id number] ####[facility] ([facility])[address] [place] [address] Immature granulocytes/100 WBC (Bld) 1.7 % High 0.0-1.0 [facility] Comment on above: Performed By: #### L [id number] ####[facility] ([facility])[address] [place] [address] Lymphocytes (Bld) [#/Vol] 1.19 10*3/uL Low 1.20-4.00 [facility] Comment on above: Performed By: #### L [id number] ####[facility] ([facility])[address] [place] [address] Lymphocytes/100 WBC (Bld) 13.6 % Low 20.0-45.0 [facility] Comment on above: Performed By: #### L [id number] ####[facility] ([facility] [place] [address] MCH (RBC) [Entitic mass] 32.4 pg Normal 27.0-33.0 [facility] Comment on above: Performed By: #### L [id number] ####[facility] ([facility])[address] [place] [address] MCV (RBC) [Entitic vol] 99.2 fL High 82.0-98.0 [facility] Comment on above: Performed By: #### L [id number] ####[facility] ([facility])[address] [place] [address] Monocytes (Bld) [#/Vol] 0.93 10*3/uL Normal 0.10-1.00 [facility] Comment on above: Performed By: #### L [id number] ####[facility] ([facility])[address] [place] [address] Monocytes/100 WBC (Bld) 10.6 % Normal 5.0-12.0 [facility] Comment on above: Performed By: #### L [id number] ####[facility] ([facility])[address] [place] [address] Neutrophils (Bld) [#/Vol] 6.06 10*3/uL Normal 1.60-7.60 [facility] Comment on above: Performed By: #### L [id number] ####[facility] ([facility])[address] [place] [address] Neutrophils/100 WBC (Bld) 69.2 % Normal 40.0-72.0 [facility] Comment on above: Performed By: #### L [id number] ####[facility] ([facility])[address] [place] [address] NRBC (PER 100 WBCS) BY AUTOMATED COUNT 0.0 % Normal 0 [facility] Comment on above: Performed By: #### L [id number] ####[facility] ([facility])[address] [place] [address] PLATELETS (10*3/UL) IN BLOOD AUTOMATED COUNT 167 10*3/uL Normal 150-400 [facility] Comment on above: Performed By: #### L [id number] ####[facility] ([facility] [place] [address] RBC (Bld) [#/Vol] 3.86 10*6/uL Low 4.20-5.70 [facility] Comment on above: Performed By: #### L [id number] ####[facility] ([facility])[address] [place] [address] WBC (Bld) [#/Vol] 8.76 10*3/uL Normal 4.00-10.60 [facility] Comment on above: Performed By: #### L [id number] ####[facility] ([facility])[address] [place] [address] 30on 11-21-2023 30 The patient is Moderately Stable - Low risk of patient condition declining or worsening The patient's goals for the shift include rest/comfort The clinical goals for the shift include VSS Problem: Pain - Adult Goal: Verbalizes/displays adequate comfort level or baseline comfort level Outcome: Progressing Problem: Safety - Adult Goal: Free from fall injury Outcome: Progressing Normal [facility] 30 The patient is Moderately Stable [...] and maintained or improved Outcome: Progressing Normal [facility] BASIC METABOLIC PANELon 10-24 Anion gap [Moles/Vol] 9 mmol/L Normal 7-20 [facility] Comment on above: Performed By: #### L [id number] ####[facility] ([facility] [place] [address] Calcium [Mass/Vol] 8.0 mg/dL Low 8.6-10.3 [facility] Comment on above: Performed By: #### L [id number] ####[facility] ([facility] [place] [address] Chloride [Moles/Vol] 113 mmol/L High 98-107 [facility] Comment on above: Performed By: #### L [id number] ####[facility] ([facility])[address] [place] [address] CO2 [Moles/Vol] 27 mmol/L Normal 21-31 [facility] Comment on above: Performed By: #### L [id number] ####[facility] ([facility])[address] [place] [address] Creatinine [Mass/Vol] 1.47 mg/dL High 0.70-1.30 [facility] Comment on above: Performed By: #### L [id number] ####[facility] ([facility])[address] [place] [address] GLOMERULAR FILTRATION RATE ML/MIN/1.73 SQ M.PREDICTED 46.5 mL/min/1.73m*2 Low >60.0 [facility] Comment on above: Result Comment: The [facility]???s estimated glomerular filtration rate (eGFR) will [...] of individuals. Performed By: #### L [id number] ####[facility] ([facility] [place] [address] Glucose [Mass/Vol] 135 mg/dL High 70-100 [facility] Comment on above: Performed By: #### L [id number] ####[facility] ([facility])[address] [place] [address] Potassium [Moles/Vol] 3.3 mmol/L Low 3.5-5.1 [facility] Comment on above: Performed By: #### L [id number] ####[facility] ([facility])[address] [place] [address] Sodium [Moles/Vol] 146 mmol/L High 136-145 [facility] Comment on above: Performed By: #### L [id number] ####[facility] ([facility])[address] [place] [address] Urea nitrogen [Mass/Vol] 35 mg/dL High 7-25 [facility] Comment on above: Performed By: #### L [id number] ####[facility] ([facility])[address] [place] [address] UREA NITROGEN/CREATININ E (MASS RATIO) IN SER/PLAS 23.8 Normal [facility] Comment on above: Performed By: #### L [id number] ####[facility] ([facility])[address] [place] [address] CBCon 11-21-2023 Erythrocyte distribution width (RBC) [Ratio] 15.3 % High 11.5-15.0 [facility] Comment on above: Performed By: #### L [id number] ####[facility] ([facility])[address] [place] [address] ERYTHROCYTE MEAN CORPUSCULAR HEMOGLOBIN CONCENTRATION (G/DL) BY AUTOMATED 32.7 g/dL Normal 32.0-35.0 [facility] Comment on above: Performed By: #### L [id number] ####[facility] ([facility])[address] [place] [address] Hematocrit (Bld) [Volume fraction] 38.5 % Low 39.0-55.0 [facility] Comment on above: Performed By: #### L [id number] ####[facility] ([facility])[address] [place] [address] Hemoglobin (Bld) [Mass/Vol] 12.6 g/dL Low 13.0-17.0 [facility] Comment on above: Performed By: #### L [id number] ####[facility] ([facility])[address] [place] [address] MCH (RBC) [Entitic mass] 32.1 pg Normal 27.0-33.0 [facility] Comment on above: Performed By: #### L [id number] ####[facility] ([facility])[address] [place] [address] MCV (RBC) [Entitic vol] 98.2 fL High 82.0-98.0 [facility] Comment on above: Performed By: #### L [id number] ####[facility] ([facility])[address] [place] [address] PLATELETS (10*3/UL) IN BLOOD AUTOMATED COUNT 172 10*3/uL Normal 150-400 [facility] Comment on above: Performed By: #### L [id number] ####[facility] ([facility])[address] [place] [address] RBC (Bld) [#/Vol] 3.92 10*6/uL Low 4.20-5.70 [facility] Comment on above: Performed By: #### L [id number] ####[facility] ([facility])[address] [place] [address] WBC (Bld) [#/Vol] 9.67 10*3/uL Normal 4.00-10.60 [facility] Comment on above: Performed By: #### L [id number] ####[facility] ([facility])[address] [place] [address] 30on 11-20-2023 30 The patient is Moderately Stable - Low risk of patient condition declining or worsening The patient's goals for the shift include restraints off The clinical goals for the shift include stable hemodynamics Over the shift, the patient did not make progress toward the following goals. [facility] 30 Daily Case Managemen t Update [...] OT Six Click Score: 8 PT Recommendations: halfway facility placement OT Recommendations: halfway facility placement New Consults: Ancillary Consults (From [...] OT? Answer: eval and treat 11/19/[address] [facility] CONSULTon 11-20-2023 CONSULT -- Attestation signed by Juan Pablo Liz MD at 11/21/2023 12:08 PM As noted. Patient to be staffed in person on 11/20 Psychiatry Consultation Service - New Assessment Patient Name: Nat Moore MRN / CSN: [id number] Date of / Age: 2 1940 / [...] mild cognitive impairment originally presenting to the [facility] Emergency Room on 11/15/2023 for evaluation of recurrent episodes of syncope secondary to spontaneous prolonged sinus pause. The patient was transferred via air ambulance from the [facility]. Psychiatry was consulted for management of agitation secondary to dementia . Emergency Room Course: Imaging/Workup: On arrival to [facility] the patient's blood pressure was 158/72 mmHg, pulse rate 78 bpm, regular, SpO2 100% on room air, respiratory rate 20/min, temperature 97.2. 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 CT of the abdomen with contrast done at [facility] showed nonobstructive bowel gas pattern with [...] would con (more content not included)... Normal [facility] NURSNOTEon 11-20-2023 NURSNOTE Patient Name: Nat [...] voiced no concerns at this time. The securities underwriter urged the primary RN to call the rapid team if any concerns arise overnight. Chevy Hines RN Rapid Response Team Nurse [phone] 11/20/2023 11:34 PM Normal [facility] 30on 11-19-2023 30 Daily Case Managemen t Update Multidisciplinary rounds have been completed. Barriers to Discharge: 11/18- patient here from [facility] for recurrent episodes of syncope secondary to spontaneous prolonged sinus pauses. During his stay in [facility] he suddenly developed bradycardia prolonged sinus [...] Answer: eval and treat 11/19/23 0756 Normal [facility] BASIC METABOLIC PANELon 08- Anion gap [Moles/Vol] 11 mmol/L Normal 7-20 [facility] Comment on above: Performed By: #### L [id number] ####[facility] (BEAKER)[address] [facility] [place] [address] Calcium [Mass/Vol] 8.0 mg/dL Low 8.6-10.3 [facility] Comment on above: Performed By: #### L [id number] ####[facility] (BEAKER)[address] [facility] [place] [address] Chloride [Moles/Vol] 112 mmol/L High 98-107 [facility] Comment on above: Performed By: #### L [id number] ####[facility] (BEAKER)[address] [place] [address] CO2 [Moles/Vol] 26 mmol/L Normal 21-31 [facility] Comment on above: Performed By: #### L [id number] ####[facility] ([facility] [place] [address] Creatinine [Mass/Vol] 1.69 mg/dL High 0.70-1.30 [facility] Comment on above: Performed By: #### L [id number] ####[facility] ([facility])[address] [place] [address] GLOMERULAR FILTRATION RATE ML/MIN/1.73 SQ M.PREDICTED 39.3 mL/min/1.73m*2 Low >60.0 [facility] Comment on above: Result Comment: The [facility]???s estimated glomerular filtration rate (eGFR) will [...] of individuals. Performed By: #### L [id number] ####[facility] ([facility])[address] [place] [address] Glucose [Mass/Vol] 122 mg/dL High 70-100 [facility] Comment on above: Performed By: #### L [id number] ####[facility] ([facility])[address] [place] [address] Potassium [Moles/Vol] 3.5 mmol/L Normal 3.5-5.1 [facility] Comment on above: Performed By: #### L [id number] ####[facility] ([facility])[address] [place] [address] Sodium [Moles/Vol] 145 mmol/L Normal 136-145 [facility] Comment on above: Performed By: #### L [id number] ####[facility] ([facility] [place] [address] Urea nitrogen [Mass/Vol] 49 mg/dL High 7-25 [facility] Comment on above: Performed By: #### L [id number] ####[facility] ([facility])[address] [place] [address] UREA NITROGEN/CREATININ E (MASS RATIO) IN SER/PLAS 29.0 Normal [facility] Comment on above: Performed By: #### L [id number] ####[facility] ([facility])[address] [place] [address] CBCon 11-19-2023 Erythrocyte distribution width (RBC) [Ratio] 15.0 % Normal 11.5-15.0 [facility] Comment on above: Performed By: #### L [id number] #### [facility] ([facility]) [address] [place] [address] ERYTHROCYTE MEAN CORPUSCULAR HEMOGLOBIN CONCENTRATION (G/DL) BY AUTOMATED 32.8 g/dL Normal 32.0-35.0 [facility] Comment on above: Performed By: #### L [id number] #### [facility] ([facility]) [address] [place] [address] Hematocrit (Bld) [Volume fraction] 38.7 % Low 39.0-55.0 [facility] Comment on above: Performed By: #### L [id number] #### [facility] ([facility]) [address] [place] [address] Hemoglobin (Bld) [Mass/Vol] 12.7 g/dL Low 13.0-17.0 [facility] Comment on above: Performed By: #### L [id number] #### [facility] ([facility]) [address] [place] [address] MCH (RBC) [Entitic mass] 31.8 pg Normal 27.0-33.0 [facility] Comment on above: Performed By: #### L [id number] #### [facility] ([facility]) [address] [place] [place] [address] MCV (RBC) [Entitic vol] 97.0 fL Normal 82.0-98.0 [facility] Comment on above: Performed By: #### L [id number] #### [facility] (BEAKER) [address] [place] [address] PLATELETS (10*3/UL) IN BLOOD AUTOMATED COUNT 148 10*3/uL Low 150-400 [facility] Comment on above: Performed By: #### L [id number] #### [facility] (BEAKER) [address] [place] [address] RBC (Bld) [#/Vol] 3.99 10*6/uL Low 4.20-5.70 [facility] Comment on above: Performed By: #### L [id number] #### [facility] ([facility]) [address] [place] [address] WBC (Bld) [#/Vol] 7.82 10*3/uL Normal 4.00-10.60 [facility] Comment on above: Performed By: #### L [id number] #### [facility] ([facility]) [address] [place] [address] [facility] 11-17-2023 ANES -- Attestation signed by Sam [...] Information Date: 11/17/23 Procedure: Implant PPM Location: [facility] (Cath) Providers: Nora Rivera MD Clinical information reviewed: Allergies Meds Physical Exam Airway Mallampati: III Cardiovascular Rhythm: regular Rate: normal Dental Pulmonary Breath sounds clear to auscultation Abdominal Abdomen: soft Anesthesia Plan Additional Equipment Requests Normal [facility] BASIC METABOLIC PANELon 10-23 Anion gap [Moles/Vol] 11 mmol/L Normal 7-20 [facility] Comment on above: Performed By: #### L [id number] #### [facility] (BEAKER) [address] [place] [address] Calcium [Mass/Vol] 8.0 mg/dL Low 8.6-10.3 [facility] Comment on above: Performed By: #### L [id number] #### [facility] ([facility]AKER) [address] [place] [address] Chloride [Moles/Vol] 109 mmol/L High 98-107 [facility] Comment on above: Performed By: #### L [id number] #### [facility] (BEAKER) [address] [place] [address] CO2 [Moles/Vol] 25 mmol/L Normal 21-31 [facility] Comment on above: Performed By: #### L [id number] #### [facility] ([facility]ER) [address] [place] [address] Creatinine [Mass/Vol] 1.42 mg/dL High 0.70-1.30 [facility] Comment on above: Performed By: #### L [id number] #### [facility] ([facility]AKER) [address] [place] [address] GLOMERULAR FILTRATION RATE ML/MIN/1.73 SQ M.PREDICTED 48.4 mL/min/1.73m*2 Low >60.0 [facility] Comment on above: Result Comment: The [facility]???s estimated glomerular filtration rate (eGFR) will [...] individuals. Performed By: #### L [id number] #### [facility] ([facility]) [address] [place] [address] Glucose [Mass/Vol] 169 mg/dL High 70-100 [facility] Comment on above: Performed By: #### L [id number] #### [facility] ([facility]) [address] [place] [address] Potassium [Moles/Vol] 4.3 mmol/L Normal 3.5-5.1 [facility] Comment on above: Performed By: #### L [id number] #### [facility] ([facility]) [address] [place] [address] Sodium [Moles/Vol] 141 mmol/L Normal 136-145 [facility] Comment on above: Performed By: #### L [id number] #### [facility] ([facility]) [address] [place] [address] Urea nitrogen [Mass/Vol] 33 mg/dL High 7-25 [facility] Comment on above: Performed By: #### L [id number] #### [facility] ([facility]) [address] [place] [address] UREA NITROGEN/CREATININ E (MASS RATIO) IN SER/PLAS 23.2 Normal [facility] Comment on above: Performed By: #### L [id number] #### [facility] ([facility]) [address] [place] [address] CBCon 11-17-2023 Erythrocyte distribution width (RBC) [Ratio] 14.9 % Normal 11.5-15.0 [facility] Comment on above: Performed By: #### L [id number] #### [facility] ([facility]) [address] [place] [address] ERYTHROCYTE MEAN CORPUSCULAR HEMOGLOBIN CONCENTRATION (G/DL) BY AUTOMATED 32.2 g/dL Normal 32.0-35.0 [facility] Comment on above: Performed By: #### L [id number] #### [facility] ([facility]) [address] [place] [address] Hematocrit (Bld) [Volume fraction] 39.5 % Normal 39.0-55.0 [facility] Comment on above: Performed By: #### L [id number] #### [facility] ([facility]) [address] [place] [address] Hemoglobin (Bld) [Mass/Vol] 12.7 g/dL Low 13.0-17.0 [facility] Comment on above: Performed By: #### L [id number] #### [facility] ([facility]) [address] [place] [address] MCH (RBC) [Entitic mass] 31.8 pg Normal 27.0-33.0 [facility] Comment on above: Performed By: #### L [id number] #### [facility] ([facility]) [address] [place] [address] MCV (RBC) [Entitic vol] 99.0 fL High 82.0-98.0 [facility] Comment on above: Performed By: #### L [id number] #### [facility] ([facility] [address] [place] [address] PLATELETS (10*3/UL) IN BLOOD AUTOMATED COUNT 157 10*3/uL Normal 150-400 [facility] Comment on above: Performed By: #### L [id number] #### [facility] ([facility]) [address] [place] [address] RBC (Bld) [#/Vol] 3.99 10*6/uL Low 4.20-5.70 [facility] Comment on above: Performed By: #### L [id number] #### [facility] ([facility]) [address] [place] [address] WBC (Bld) [#/Vol] 9.04 10*3/uL Normal 4.00-10.60 [facility] Comment on above: Performed By: #### L [id number] #### [facility] ([facility]) [address] [place] [address] HEMOGLOBIN A1Con 11-17-2023 Glucose [Mass/Vol] 114 mg/dL Normal [facility] Comment on above: Order Comment: NO [facility] Performed By: #### L [id number] ####[facility] ([facility])[address] [place] [address] HbA1c (Bld) [Mass fraction] 5.6 % Normal 4.0-6.0 [facility] Comment on above: Order Comment: NO [facility] Performed By: #### L [id number] ####[facility] ([facility])[address] [place] [address] HPon 11-17-2023 HP -- Attestation signed by [...] placement of PPM in the AM. Normal [facility] LIPID PANELon 11-17-2023 CHOL/HDL 3.8 mg/dL Normal [facility] Comment on above: Performed By: #### L [id number] ####[facility] ([facility])[address] [place] [address] Cholesterol [Mass/Vol] 127 mg/dL Normal 120-200 [facility] Comment on above: Performed By: #### L [id number] ####[facility] ([facility])[address] [place] [address] Magnesium [Mass/Vol] 81 mg/dL Normal 40-149 [facility] Comment on above: Result Comment: TRIG LYCERIDE REFERENCE RANGE: 20 YEARS AND OLDER CARDIOVASCULAR RISK LESS THAN 150 mg/dL LOW RISK 150 TO 199 mg/dL BORDERLINE RISK 200 mg/dL AND GREATER HIGH RISK Performed By: #### L [id number] ####[facility] ([facility])[address] [facility] [address] Magnesium [Mass/Vol] 78 mg/dL Normal 0-160 [facility] Comment on above: Performed By: #### L [id number] ####[facility] ([facility])[address] [address] Magnesium [Mass/Vol] 33 mg/dL Normal 23-92 [facility] Comment on above: Performed By: #### L [id number] ####[facility] ([facility] [place] [address] NON HDL CHOL. (LDL+VLDL) 94 Normal [facility] Comment on above: Performed By: #### L [id number] ####[facility] ([facility])[address] [place] [address] TOTAL VLDL-C 16 mg/dL Normal 0-40 [facility] Comment on above: Performed By: #### L [id number] ####[facility] ([facility])[address] [place] [address] LIPOPROTEIN A (LPA)on 2023 Magnesium [Mass/Vol] 23 mg/dL Normal <=29 [facility] Comment on above: Result Comment: Perf ormed By: [employer] [address] [place] [address] Cyber Operator: Rivas Castillo MD, PhD CLIA Number: [id number] Performed By: #### L [id number] #### [facility] ([facility]) [address] [place] [address] MAGNESIUMon 11-17-2023 Magnesium [Mass/Vol] 2.0 mg/dL Normal 1.9-2.7 [facility] Comment on above: Performed By: #### L [id number] ####[facility] ([facility])[address] [place] [address] PHOSPHORUSon 11-17-2023 Magnesium [Mass/Vol] 3.1 mg/dL Normal 2.5-5.0 [facility] Comment on above: Performed By: #### L [id number] #### [facility] ([facility]) [address] [place] [address] 30on 11-16-2023 30 The patient is Moderately [...] or at baseline Outcome: Not Progressing Normal [facility] ANESon 11-16-2023 ANES Patient: Nat Moore [...] Additional Equipment Requests Jovita Sanchez MD, MPH, [facility], [facility], [facility] Interventional Cardiology Pager Email: [email or web address] Normal [facility] B-TYPE NATRIURETIC PEPTIDEon 11-16-2023 Natriuretic peptide B (Bld) [Mass/Vol] 103 pg/mL High 0-100 [facility] Comment on above: Performed By: #### L [id number] #### [facility] ([facility]) [address] [place] [address] BASIC METABOLIC PANELon 10-23 Anion gap [Moles/Vol] 10 mmol/L Normal 7-20 [facility] Comment on above: Performed By: #### L [id number] #### [facility] ([facility] [address] [place] [address] Calcium [Mass/Vol] 8.2 mg/dL Low 8.6-10.3 [facility] Comment on above: Performed By: #### L [id number] #### [facility] (BEAKER) [address] [place] [address] Chloride [Moles/Vol] 108 mmol/L High 98-107 [facility] Comment on above: Performed By: #### L [id number] #### [facility] ([facility]ER) [address] [place] [address] CO2 [Moles/Vol] 27 mmol/L Normal 21-31 [facility] Comment on above: Performed By: #### L [id number] #### [facility] ([facility]ER) [address] [place] [address] Creatinine [Mass/Vol] 1.53 mg/dL High 0.70-1.30 [facility] Comment on above: Performed By: #### L [id number] #### [facility] ([facility]) [address] [place] [address] GLOMERULAR FILTRATION RATE ML/MIN/1.73 SQ M.PREDICTED 44.3 mL/min/1.73m*2 Low >60.0 [facility] Comment on above: Result Comment: The [facility]???s estimated glomerular filtration rate (eGFR) will [...] individuals. Performed By: #### L [id number] #### [facility] ([facility]) [address] [place] [address] Glucose [Mass/Vol] 124 mg/dL High 70-100 [facility] Comment on above: Performed By: #### L [id number] #### [facility] ([facility]) [address] [place] [address] Potassium [Moles/Vol] 4.3 mmol/L Normal 3.5-5.1 [facility] Comment on above: Performed By: #### L [id number] #### [facility] ([facility]) [address] [place] [address] Sodium [Moles/Vol] 141 mmol/L Normal 136-145 [facility] Comment on above: Performed By: #### L [id number] #### [facility] ([facility]) [address] [facility] [place] [address] Urea nitrogen [Mass/Vol] 31 mg/dL High 7-25 [facility] Comment on above: Performed By: #### L [id number] #### [facility] ([facility]) [address] [place] [address] UREA NITROGEN/CREATININ E (MASS RATIO) IN SER/PLAS 20.3 Normal [facility] Comment on above: Performed By: #### L [id number] #### [facility] ([facility]) [address] [place] [address] Anion gap [Moles/Vol] 10 mmol/L Normal 7-20 [facility] Comment on above: Performed By: #### L [id number] #### [facility] ([facility]) [address] [place] [address] Calcium [Mass/Vol] 8.1 mg/dL Low 8.6-10.3 [facility] Comment on above: Performed By: #### L [id number] #### [facility] ([facility]) [address] [place] [address] Chloride [Moles/Vol] 108 mmol/L High 98-107 [facility] Comment on above: Performed By: #### L [id number] #### [facility] ([facility]) [address] [place] [address] CO2 [Moles/Vol] 27 mmol/L Normal 21-31 [facility] Comment on above: Performed By: #### L [id number] #### [facility] ([facility]) [address] [place] [address] Creatinine [Mass/Vol] 1.40 mg/dL High 0.70-1.30 [facility] Comment on above: Performed By: #### L [id number] #### [facility] ([facility]) [address] [place] [address] GLOMERULAR FILTRATION RATE ML/MIN/1.73 SQ M.PREDICTED 49.3 mL/min/1.73m*2 Low >60.0 [facility] Comment on above: Result Comment: The [facility]???s estimated glomerular filtration rate (eGFR) will [...] individuals. Performed By: #### L [id number] #### [facility] ([facility]) [address] [place] [address] Glucose [Mass/Vol] 136 mg/dL High 70-100 [facility] Comment on above: Performed By: #### L [id number] #### [facility] ([facility]) [address] [place] [address] Potassium [Moles/Vol] 4.3 mmol/L Normal 3.5-5.1 [facility] Comment on above: Performed By: #### L [id number] #### [facility] ([facility]) [address] [place] [address] Sodium [Moles/Vol] 141 mmol/L Normal 136-145 [facility] Comment on above: Performed By: #### L [id number] #### [facility] ([facility]) [address] [place] [address] Urea nitrogen [Mass/Vol] 27 mg/dL High 7-25 [facility] Comment on above: Performed By: #### L [id number] #### [facility] ([facility]) [address] [place] [address] UREA NITROGEN/CREATININ E (MASS RATIO) IN SER/PLAS 19.3 Normal [facility] Comment on above: Performed By: #### L [id number] #### [facility] ([facility]) [address] [place] [address] CBCon 11-16-2023 Erythrocyte distribution width (RBC) [Ratio] 15.1 % High 11.5-15.0 [facility] Comment on above: Performed By: #### L [id number] #### [facility] ([facility]) [address] [place] [address] ERYTHROCYTE MEAN CORPUSCULAR HEMOGLOBIN CONCENTRATION (G/DL) BY AUTOMATED 32.4 g/dL Normal 32.0-35.0 [facility] Comment on above: Performed By: #### L [id number] #### [facility] ([facility]) [address] [place] [address] Hematocrit (Bld) [Volume fraction] 36.7 % Low 39.0-55.0 [facility] Comment on above: Performed By: #### L [id number] #### [facility] ([facility]) [address] [place] [address] Hemoglobin (Bld) [Mass/Vol] 11.9 g/dL Low 13.0-17.0 [facility] Comment on above: Performed By: #### L [id number] #### [facility] ([facility]) [address] [place] [address] MCH (RBC) [Entitic mass] 32.0 pg Normal 27.0-33.0 [facility] Comment on above: Performed By: #### L [id number] #### [facility] ([facility]) [address] [place] [address] MCV (RBC) [Entitic vol] 98.7 fL High 82.0-98.0 [facility] Comment on above: Performed By: #### L [id number] #### [facility] ([facility]) [address] [place] [address] PLATELETS (10*3/UL) IN BLOOD AUTOMATED COUNT 157 10*3/uL Normal 150-400 [facility] Comment on above: Performed By: #### L [id number] #### [facility] ([facility]) [address] [place] [address] RBC (Bld) [#/Vol] 3.72 10*6/uL Low 4.20-5.70 [facility] Comment on above: Performed By: #### L [id number] #### [facility] ([facility]) [address] [place] [address] WBC (Bld) [#/Vol] 8.83 10*3/uL Normal 4.00-10.60 [facility] Comment on above: Performed By: #### L [id number] #### [facility] ([facility]) [address] [place] [address] on 11-16-2023 H&P reviewed. Apparently this morning, [...] wishes to proceed. Jovita Sanchez MD, MPH, [facility], [facility], [facility] Interventional Cardiology Pager Email: [email or web address] Normal [facility] HP -- Attestation signed by Art [...] which are billed separately. Art Mckoy MD [facility] Pulmonary [facility] Critical Care Medicine Adult ICU History & Physical Patient - Nat Moore Age - 83 y.o. - 1940 [facility] # - [id number] Date of Admission - 11/15/2023 2:42 PM Chief Complaint Syncope History of Present Illness Nat Moore is a an 83-year-old gentleman with PMH significant for type 2 diabetes mellitus, essential hypertension, hyperlipidemia, CKD stage IIIa, bilateral lower extremity edema on diuretic therapy, osteoarthritis, depression and mild cognitive impairment was initially admitted to the hospitalist service from [place] due to recurrent episodes of syncope secondary [...] his presenting complaints. During his stay in [place] ED he suddenly developed bradycardia prolonged sinus [...] of the abdomen with contrast done at [place] ED showed nonobstructive bowel gas pattern with [...] planning on taking the patient to the [facility] tomorrow for possible transvenous pacemaker placement. [...] sodium (C (more content not included)... Normal [facility] LACTIC ACID WITH 4 HOUR REFL EXon 11-16-2023 LACTATE (MMOL/L) IN SER/PLAS 1.2 mmol/L Normal 0.5-2.2 [facility] Comment on above: Performed By: #### L [id number] #### [facility] ([facility]) [address] [place] [address] MAGNESIUMon 11-16-2023 Magnesium [Mass/Vol] 2.1 mg/dL Normal 1.9-2.7 [facility] Comment on above: Performed By: #### L [id number] #### [facility] ([facility]) [address] [place] [address] Magnesium [Mass/Vol] 1.7 mg/dL Low 1.9-2.7 [facility] Comment on above: Performed By: #### L [id number] #### [facility] ([facility]) [address] [place] [address] PRO-BNPon 11-16-2023 Natriuretic peptide B (Bld) [Mass/Vol] 576 pg/mL High 0-300 [facility] Comment on above: Result Comment: An a ge-independent cutoff point of 300 pg/ml has a 98% negative predictive value excluding acute heart failure. Test Performed by [employer] [address] [place] [address] - Released 11/16/2023 20:27 Performed By: #### L [id number] ####[facility] [id number] [place] [address] TSH3 REFLEX TO FT4on 024 THYROTROPIN (MIU/L) IN SER/PLAS BY DETECTION LIMIT <= 0.05 MIU/L 1.67 mIU/L Normal 0.34-5.60 [facility] Comment on above: Performed By: #### L [id number] #### [facility] ([facility]) [address] [place] [address] 30on 11-15-2023 30 The patient is Moderately [...] and maintained or improved Outcome: Progressing Normal [facility] CBCon 11-15-2023 Erythrocyte distribution width (RBC) [Ratio] 15.2 % High 11.5-15.0 [facility] Comment on above: Performed By: #### L [id number] ####[facility] ([facility])[address] [place] [address] ERYTHROCYTE MEAN CORPUSCULAR HEMOGLOBIN CONCENTRATION (G/DL) BY AUTOMATED 32.8 g/dL Normal 32.0-35.0 [facility] Comment on above: Performed By: #### L [id number] ####[facility] ([facility])[address] [place] [address] Hematocrit (Bld) [Volume fraction] 37.8 % Low 39.0-55.0 [facility] Comment on above: Performed By: #### L [id number] ####[facility] ([facility])[address] [place] [address] Hemoglobin (Bld) [Mass/Vol] 12.4 g/dL Low 13.0-17.0 [facility] Comment on above: Performed By: #### L [id number] ####[facility] ([facility])[address], [place] [address] MCH (RBC) [Entitic mass] 31.9 pg Normal 27.0-33.0 [facility] Comment on above: Performed By: #### L [id number] ####[facility] ([facility])[address] [place] [address] MCV (RBC) [Entitic vol] 97.2 fL Normal 82.0-98.0 [facility] Comment on above: Performed By: #### L [id number] ####[facility] ([facility])[address] [place] [address] PLATELETS (10*3/UL) IN BLOOD AUTOMATED COUNT 172 10*3/uL Normal 150-400 [facility] Comment on above: Performed By: #### L [id number] ####[facility] ([facility])[address] [place] [address] RBC (Bld) [#/Vol] 3.89 10*6/uL Low 4.20-5.70 [facility] Comment on above: Performed By: #### L [id number] ####[facility] ([facility])[address] [place] [address] WBC (Bld) [#/Vol] 8.89 10*3/uL Normal 4.00-10.60 [facility] Comment on above: Performed By: #### L [id number] ####[facility] ([facility])[address] [place] [address] COMPREHENSIVE METABOLIC PANE Dmitri 11-15-2023 Albumin [Mass/Vol] 3.7 g/dL Normal 3.5-5.7 [facility] Comment on above: Performed By: #### L [id number] #### [facility] ([facility]) [address] [place] [address] ALP [Catalytic activity/Vol] 70 U/L Normal 34-104 [facility] Comment on above: Performed By: #### L [id number] #### [facility] ([facility]) [address] [place] [address] ALT [Catalytic activity/Vol] 7 U/L Normal 7-52 [facility] Comment on above: Performed By: #### L [id number] #### [facility] ([facility]) [address] [place] [address] Anion gap [Moles/Vol] 9 mmol/L Normal 7-20 [facility] Comment on above: Performed By: #### L [id number] #### [facility] ([facility]) [address] [place] [address] AST [Catalytic activity/Vol] 11 U/L Low 13-39 [facility] Comment on above: Performed By: #### L [id number] #### [facility] ([facility]) [address] [place] [address] Bilirubin [Mass/Vol] 0.6 mg/dL Normal 0.3-1.0 [facility] Comment on above: Performed By: #### L [id number] #### [facility] ([facility]) [address] [place] [address] Calcium [Mass/Vol] 8.2 mg/dL Low 8.6-10.3 [facility] Comment on above: Performed By: #### L [id number] #### [facility] ([facility]) [address] [place] [address] Chloride [Moles/Vol] 107 mmol/L Normal 98-107 [facility] Comment on above: Performed By: #### L [id number] #### [facility] ([facility]) [address] [place] [address] CO2 [Moles/Vol] 29 mmol/L Normal 21-31 [facility] Comment on above: Performed By: #### L [id number] #### [facility] ([facility]) [address] [place] [address] Creatinine [Mass/Vol] 1.37 mg/dL High 0.70-1.30 [facility] Comment on above: Performed By: #### L [id number] #### [facility] ([facility]) [address] [place] [address] GLOMERULAR FILTRATION RATE ML/MIN/1.73 SQ M.PREDICTED 50.6 mL/min/1.73m*2 Low >60.0 [facility] Comment on above: Result Comment: The [facility]???s estimated glomerular filtration rate (eGFR) will [...] individuals. Performed By: #### L [id number] #### [facility] ([facility]) [address] [place] [address] Glucose [Mass/Vol] 120 mg/dL High 70-100 [facility] Comment on above: Performed By: #### L [id number] #### [facility] ([facility]) [address] [place] [address] Potassium [Moles/Vol] 4.1 mmol/L Normal 3.5-5.1 [facility] Comment on above: Performed By: #### L [id number] #### [facility] ([facility]) [address] [place] [address] Protein [Mass/Vol] 6.0 g/dL Normal 6.0-8.3 [facility] Comment on above: Performed By: #### L [id number] #### [facility] ([facility]) [address] [place] [address] Sodium [Moles/Vol] 141 mmol/L Normal 136-145 [facility] Comment on above: Performed By: #### L [id number] #### [facility] ([facility]) [address] [place] [address] Urea nitrogen [Mass/Vol] 26 mg/dL High 7-25 [facility] Comment on above: Performed By: #### L [id number] #### [facility] ([facility]) [address] [place] [address] UREA NITROGEN/CREATININ E (MASS RATIO) IN SER/PLAS 19.0 Normal [facility] Comment on above: Performed By: #### L [id number] #### [facility] ([facility]) [address] [place] [address] CONSULTon 11-15-2023 CONSULT Division of Cardiovascular Medicine Interventional Cardiology Consult Chief Complaint: Transfer from [place] HPI: 83 yo with h/o HTN, CKD, dyslipidemia presented to [facility] with c/o chest and back pain. While being evaluated he had episodes of prolonged sinus pauses (12-18 sec?) with loss of consciousness and vomiting. He was Life flighted to [facility]. On arrival , I evaluated [...] infarctions or CHF. Does not see a fruit room hand. Patient Active Problem List Diagnosis Syncope and [...] plan on (more content not included)... Normal [facility] CT HEAD WO IV CONTRASTon CT [...] GAGANDEEP CLAUDIO MD. 3 Invalid Interpretation Code [facility] HPon 11-15-2023 Division of Cardiovascular Medicine Interventional Cardiology Consult Chief Complaint: Transfer from [place]PI: 83 yo with h/o HTN, CKD, dyslipidemia presented to [facility] with c/o chest and back pain. While being evaluated he had episodes of prolonged sinus pauses (12-18 sec?) with loss of consciousness and vomiting. He was Life flighted to [facility]. On arrival , I evaluated [...] infarctions or CHF. Does not see a fruit room hand. Patient Active Problem List Diagnosis Syncope and [...] (Mycostatin) 100,000 unit/gram powder, , Topical, BID, Gilse Altman MD ondansetron ODT (Zofran-ODT) disintegrating tablet [...] plan on (more content not included)... Normal [facility] MAGNESIUMon 11-15-2023 Magnesium [Mass/Vol] 1.7 mg/dL Low 1.9-2.7 [facility] Comment on above: Performed By: #### L [id number] #### [facility] ([facility]) [address] [place] [address] NURSNOTEon 11-15-2023 ELIEL Spanish Interpreter reach out to Cardiology (Dr. Figueroa) to notify her of the pt transferring to MICU due to change in condition and code blue being called. She asked if the patient was paced at bedside and nurse replied no but pt was transferred and will be paced in MICU. [facility] ELIEL Spanish Interpreter attempted to reach out to family via home number in chart and it wasn't in service. Charge nurse MIGUEL Lloyd was notified and MICU was notified as well by MIGUEL Lloyd. [facility] ELIEL Bedside report given to MIGUEL Ghosh prior to transfer to MICU due to change in condition and code blue being called for asystole lasting 10.19 seconds. Normal [facility] ELIEL Spoke with Dr. Wendy dominguez [...] done and we'll go from there. Normal [facility] TROPONIN Ion 11-15-2023 Troponin I.cardiac [Mass/Vol] 0.01 ng/mL Normal 0.00-0.04 [facility] Comment on above: Performed By: #### L [id number] #### [facility] ([facility]) [address] [place] [address] Urology Office/Clinic Noteon 11-12-2023 Urology Office/Clinic Note [...] call if too cost prohibitive, sent to [facility] sanchez -f/up in 3 mos 2. BPH [...] 23-valent vac (more content not included)... Normal [facility] Comment on above: Result Comment: Elec tronically [...] APRN, Marianela Rodriguez Where: [facility] [address] [place] [address] You Need to Schedule the Following Appointments [...] Leaking ur (more content not included)... Normal [facility] Patient Letter [facility] October 14, 2023 NAT MOORE [address] [place] [address] [address] [place] [address] : 1940 Dear Nat, You missed your [...] any future cancellations. Sincerely, [facility] [address], [place] [address] [facility] Patient Letter FTMCon 2023 Patient Letter FT May 13, 2023 JOHNSASHELY MOORE [address] [facility] [address] [place] [address] : 1940 Dear Nat, You missed your [...] any future cancellations. Sincerely, [facility] [address] [facility], [place] [address] [facility] BNPon 07-27-2022 Natriuretic peptide B (Bld) [Mass/Vol] 178.0 pg/mL Normal <=1,800.0 [facility] Comment on above: Performed By: #### C MP, BNP, CMADM #### [facility] [address] [place], [place] [address] Dr. Loyd Parks CARDIAC SPARKLE ADMITon 023 CK [Catalytic activity/Vol] 50 U/L Normal 39-308 [facility] Comment on above: Performed By: #### C MP, BNP, CMADM #### [facility] [address] [place] [address] [address] Loyd Parks CK.MB [Mass/Vol] 0.83 ng/mL Normal <=3.60 [facility] Comment on above: Performed By: #### C MP, BNP, CMADM #### [facility] [address] [place] [address] Dr. Loyd Parks HSTROP 6.3 pg/mL Normal 4.0-76.1 [facility] Comment on above: Result Comment: CUT- OFF POINTS HAVE BEEN ESTABLISHED BASED ON THE FOURTH UNIVERSAL DEFINITIONS OF MYOCARDIAL INFARCTION. THE UPPER REFERENCE LIMIT (URL) OF TROPONIN, DEFINED THE 99TH PERCENTILE OF cTnI DISTRIBUTION IN A REFERENCE POPULATION, HAS BEEN CONFIRMED THE DECISION THRESHOLD FOR SC DIAGNOSIS. Performed By: #### C MP, BNP, CMADM #### [facility] [address] [place] [address] Dr. Loyd Parks WM 121 ng/mL Critically high 16-96 [facility] Comment on above: Performed By: #### C MP, BNP, CMADM #### [facility] [address] [place] [address] Dr. Loyd Parks CBC AUTO DIFFon 07-27-2022 BASO # 0.1 103/ul Normal 0.0-0.1 [facility] Comment on above: Performed By: #### C BC #### [facility] [address] [place] [address] Dr. Loyd Parks Basophils/100 WBC (Bld) 0.6 % Normal 0.2-2.0 [facility] Comment on above: Performed By: #### C BC #### [facility] [address] [address] [address] Loyd Parks EO # 0.5 103/ul Normal 0.0-0.7 [facility] Comment on above: Performed By: #### C BC #### [facility] [address] [place] [address] Dr. Loyd Parks Eosinophils/100 WBC (Bld) 4.8 % Normal 0.9-7.0 [facility] Comment on above: Performed By: #### C BC #### [facility] [address] [place] [address] Dr. Loyd Parks Erythrocyte distribution width (RBC) [Ratio] 13.5 % Normal 11.0-15.0 [facility] Comment on above: Performed By: #### C BC #### [facility] [address] [place] [address] Dr. Loyd Parks Hematocrit (Bld) [Volume fraction] 39.7 % Critically low 42.0-54.0 [facility] Comment on above: Performed By: #### C BC #### [facility] [address] [place] [address] Dr. Loyd Parks Hemoglobin (Bld) [Mass/Vol] 13.1 g/dL Critically low 14.0-18.0 [facility] Comment on above: Performed By: #### C BC #### [facility] [address] [place] [address] Dr. Loyd Parks IG # 0.05 10e3/ul Critically high 0.00-0.03 [facility] Comment on above: Performed By: #### C BC #### [facility] [address] [place] [address] Dr. Loyd Parks IG % 0.5 % Normal 0.0-0.5 [facility] Comment on above: Performed By: #### C BC #### [facility] [address] [place] [address] Dr. Loyd Parks LYMPH # 1.4 103/ul Normal 1.2-3.8 [facility] Comment on above: Performed By: #### C BC #### [facility] [address] [place] [address] Dr. Loyd Parks Lymphocytes/100 WBC (Bld) 14.1 % Critically low 20.5-60.0 [facility] Comment on above: Performed By: #### C BC #### [facility] [address] [place] [address] Dr. Loyd Parks MANUAL DIFF REQ NO Normal [facility] Comment on above: Performed By: #### C BC #### [facility] [address] [address] [address] Loyd Parks MCH (RBC) [Entitic mass] 31.6 pg Normal 25.9-34.0 [facility] Comment on above: Performed By: #### C BC #### [facility] [address] [place] [address] Dr. Loyd Parks MCHC (RBC) [Mass/Vol] 33.0 g/dL Normal 29.9-35.2 [facility] Comment on above: Performed By: #### C BC #### [facility] [address] [place] [address] Dr. Loyd Parks MCV (RBC) [Entitic vol] 95.7 fL Critically high 80.0-94.0 [facility] Comment on above: Performed By: #### C BC #### [facility] [address] [place] [address] Dr. Loyd Parks MONO # 1.0 103/ul Critically high 0.3-0.8 [facility] Comment on above: Performed By: #### C BC #### [facility] [address] [place] [address] Dr. Loyd Parks Monocytes/100 WBC (Bld) 9.7 % Normal 1.7-12.0 [facility] Comment on above: Performed By: #### C BC #### [facility] [address] [place] [address] Dr. Loyd Parks NEUT # 7.2 103/ul Critically high 1.4-6.5 [facility] Comment on above: Performed By: #### C BC #### [facility] [address] [place] [address] Dr. Loyd Parks Neutrophils/100 WBC (Bld) 70.3 % Normal 43.0-75.0 [facility] Comment on above: Performed By: #### C BC #### [facility] [address] [place] [address] Dr. Loyd Parks Platelet mean volume (Bld) [Entitic vol] 10.8 fL Normal 9.5-13.5 [facility] Comment on above: Performed By: #### C BC #### [facility] [address] [address] [address] Loyd Parks PLT 199 103/ul Normal 150-450 [facility] Comment on above: Performed By: #### C BC #### [facility] [address] [id number] Loyd Parks RBC 4.15 106/ul Critically low 4.70-6.10 [facility] Comment on above: Performed By: #### C BC #### [facility] [address] [address] [address] Loyd Parks WBC 10.2 103/ul Normal 4.0-11.0 [facility] Comment on above: Performed By: #### C BC #### [facility] [address] [place] [address] Dr. Loyd Parks CULTURE BLOODon 07-27-2022 Microscopic examination of blood, culture Culture Observations: NO GROWTH AT 5 DAYS. Normal [facility] Comment on above: Performed By: #### E RUR #### [facility] [address] [address] [address] Loyd Parks Covid-19 PCR (CVDTB)on SARS-CoV-2 (COVID-19) RNA SAUNDRA+probe Ql (Unsp spec) Not detected Normal NOT DETECTED [facility] Comment on above: Result Comment: This test is not yet approved or cleared by the [place] FDA. When there are no FDA-approved or cleared tests available, and other criteria are met, FDA can make tests available under an emergency access mechanism called an Emergency Use Authorization (EUA). The EUA for this test is supported by the [employer] of Health and Human Service's (HHS's) declaration [...] SARS-CoV-2. Performed By: #### E RUR #### [facility] [address] [place] [address] Dr. Loyd Parks LACTATE/LACTIC ACIDon 2022 Lactate [Moles/Vol] 2.2 mmol/L Critically high 0.4-2.0 [facility] Comment on above: Performed By: #### C MP, BNP, CMADM #### [facility] [address] [place] [address] Dr. Loyd Parks PROF 14(COMP METB)on 023 Albumin [Mass/Vol] 3.3 g/dL Critically low 3.4-5.0 [facility] Comment on above: Performed By: #### C MP, BNP, CMADM #### [facility] [address] [place] [address] Dr. Loyd Parks Albumin/Globulin [Mass ratio] 0.9 {ratio} Normal [facility] Comment on above: Performed By: #### C MP, BNP, CMADM #### [facility] [address] [place] [address] Dr. Loyd Parks ALP [Catalytic activity/Vol] 91 U/L Normal 46-116 [facility] Comment on above: Performed By: #### C MP, BNP, CMADM #### [facility] [address] [place] [address] Dr. Loyd Parks ALT [Catalytic activity/Vol] 18 U/L Normal 16-63 [facility] Comment on above: Performed By: #### C MP, BNP, CMADM #### [facility] [address] [place] [address] Dr. Loyd Parks Anion gap [Moles/Vol] 12.2 mmol/L Normal [facility] Comment on above: Performed By: #### C MP, BNP, CMADM #### [facility] [address] [place] [address] Dr. Loyd Parks AST [Catalytic activity/Vol] 15 U/L Normal 15-37 [facility] Comment on above: Performed By: #### C MP, BNP, CMADM #### [facility] [address] [address] [address] Loyd Parks Bilirubin [Mass/Vol] 0.4 mg/dL Normal 0.2-1.0 [facility] Comment on above: Performed By: #### C MP, BNP, CMADM #### [facility] [address] [address] [address] Loyd Parks Calcium [Mass/Vol] 8.7 mg/dL Normal 8.5-10.1 [facility] Comment on above: Performed By: #### C MP, BNP, CMADM #### [facility] [address] [place] [address] Dr. Loyd Parks Chloride [Moles/Vol] 105 mmol/L Normal 98-107 [facility] Comment on above: Performed By: #### C MP, BNP, CMADM #### [facility] [address] [place] [address] Dr. Loyd Parks CO2 [Moles/Vol] 28.0 mmol/L Normal 21.0-32.0 [facility] Comment on above: Performed By: #### C MP, BNP, CMADM #### [facility] [address] [place] [address] Dr. Loyd Parks Creatinine [Mass/Vol] 2.25 mg/dL Critically high 0.70-1.30 [facility] Comment on above: Performed By: #### C MP, BNP, CMADM #### [facility] [address] [place] [address] Dr. Loyd Parks EGFR-AF MICRONESIAN 34 mL/min/1.73m2 Critically low >=60 [facility] Comment on above: Performed By: #### C MP, BNP, CMADM #### [facility] [address] [place] [address] Dr. Loyd Parks EGFR-NON AF MICRONESIAN 28 mL/min/1.73m2 Critically low >=60 [facility] Comment on above: Performed By: #### C MP, BNP, CMADM #### [facility] [address] [address] [address] Loyd Parks Globulin (S) [Mass/Vol] 3.8 g/dL Normal [facility] Comment on above: Performed By: #### C MP, BNP, CMADM #### [facility] [address] [address] [address] Loyd Parks Glucose [Mass/Vol] 88 mg/dL Normal 74-[address] [facility] Comment on above: Performed By: #### C MP, BNP, CMADM #### [facility] [address] [place] [address] Dr. Loyd Parks Potassium [Moles/Vol] 4.2 mmol/L Normal 3.5-5.1 [facility] Comment on above: Performed By: #### C MP, BNP, CMADM #### [facility] [address] [place] [address] Dr. Loyd Parks Protein [Mass/Vol] 7.1 g/dL Normal 6.4-8.[address] [facility] Comment on above: Performed By: #### C MP, BNP, CMADM #### [facility] [address] [address] [address] Loyd Parks Sodium [Moles/Vol] 141 mmol/L Normal 136-[address] [facility] Comment on above: Performed By: #### C MP, BNP, CMADM #### [facility] [address] [place] [address] Dr. Loyd Parks Urea nitrogen [Mass/Vol] 36.0 mg/dL Critically high 7.0-18.0 [facility] Comment on above: Performed By: #### C MP, BNP, CMADM #### [facility] [address] [address] [address] Loyd Parks Urea nitrogen/Creatinin e [Mass ratio] 16.0 mg/mg Normal [facility] Comment on above: Performed By: #### C MP, BNP, CMADM #### [facility] [address] [place] [address] Dr. Loyd Parks PROTIMEon 07-27-2022 INR Coag (PPP) [Relative time] 0.95 {INR} Normal [facility] Comment on above: Performed By: #### P T, PTT #### [facility] [address] [place] [address] Dr. Loyd Parks INR GUIDELINES SEE BELOW Normal [facility] Comment on above: Result Comment: MARIE RED INR: 2.0 - 3.0 CONDITIONS NOT LISTED BELOW 2.5 - 3.5 FOR PROSTHETIC HEART VALVE REPLACEMENT 2.5 - 3.5 RECURRENT THROMBOSIS Performed By: #### P T, PTT #### [facility] [address] [place] [address] Dr. Loyd Parks PT Coag (PPP) [Time] 10.1 s Normal 9.0-11.6 [facility] Comment on above: Performed By: #### P T, PTT #### [facility] [address] [place] [address] Dr. Loyd Parks PTTon 07-27-2022 aPTT Coag (Bld) [Time] 27.3 s Normal 22.3-36.2 [facility] Comment on above: Performed By: #### P T, PTT #### [facility] [address] [place] [address] Dr. Loyd Parks SYMPTOMATIC COVID-19 ANTIGEN on 07-27-2022 EUA Statement SEE BELOW Normal [facility] Comment on above: Result Comment: This [...] sooner. Performed By: #### C VDAGS #### [facility] [address] [place] [address] Dr. Loyd Parks SARS-CoV-2 (COVID-19) RNA SAUNDRA+probe Ql (Unsp spec) Negative Normal NEGATIVE [facility] Comment on above: Performed By: #### C VDAGS #### [facility] [address] [place] [address] Dr. Loyd Parks XR CHEST 2 Von [...] ELIUD KAUR Date: 2022-07-26 22:19 Normal [facility] POINT OF CARE GLUCOSEon 03-25 Glucose [Mass/Vol] 102 mg/dL Normal 74-106 [facility] Comment on above: Performed By: #### C MP, BNP, CMADM #### [facility] [address] [place] [address] Dr. Loyd Parks ER URINE PROFILEon 2 Bilirubin Ql (U) Negative Normal NEGATIVE [facility] Comment on above: Performed By: #### E RUR #### [facility] [address] [place] [address] Dr. Loyd Parks Clarity (U) CLEAR Normal CLEAR [facility] Comment on above: Performed By: #### E RUR #### [facility] [address] [place] [address] Dr. Loyd Parks Color (U) LT. YELLOW Normal YELLOW [facility] Comment on above: Performed By: #### E RUR #### [facility] [address] [place] [address] Dr. Loyd CONWAY A micrscopic examination will be performed if indicated. Normal [facility] Comment on above: Performed By: #### E RUR #### [facility] [address] [place] [address] Dr. Loyd Parks Glucose Ql (U) 100 mg/dl Abnormal NEGATIVE [facility] Comment on above: Performed By: #### E RUR #### [facility] [address] [place] [address] Dr. Loyd Parks Hemoglobin Ql (U) Negative Normal NEGATIVE [facility] Comment on above: Performed By: #### E RUR #### [facility] [address] [place] [address] Dr. Loyd Parks Ketones Ql (U) Negative Normal NEGATIVE [facility] Comment on above: Performed By: #### E RUR #### [facility] [address] [place] [address] Dr. Loyd Parks LEUKOCYTES Negative Normal NEGATIVE [facility] Comment on above: Performed By: #### E RUR #### [facility] [address] [place] [address] Dr. Loyd Parks Nitrite Ql (U) Negative Normal NEGATIVE [facility] Comment on above: Performed By: #### E RUR #### [facility] [address] [place] [address] Dr. Loyd Parks pH (U) 5.5 [pH] Normal 5-9 [facility] Comment on above: Performed By: #### E RUR #### [facility] [address] [place] [address] Dr. Loyd Parks SPEC GRAVITY 1.015 Normal 1.005-<=1.025 [facility] Comment on above: Performed By: #### E RUR #### [facility] [address] [place] [address] Dr. Loyd Parks UA PROTEIN Negative Normal NEGATIVE/ TRACE [facility] Comment on above: Performed By: #### E RUR #### [facility] [address] [place] [address] Dr. Loyd Parks UR MICRO IND NOT INDICATED Normal [facility] Comment on above: Performed By: #### E RUR #### [facility] [address] [place] [address] Dr. Loyd Parks Urobilinogen Qn (U) 0.2 {Malcolm'U}/dL Normal 0.2 - 1.0 [facility] Comment on above: Performed By: #### E RUR #### [facility] [address] [place] [address] Dr. Loyd Parks GROUP A STREP CULTUREon 02-21 S. pyogenes Ag Ql (Unsp spec) Culture Observations: NEGATIVE FOR GROUP A STREPTOCOCCUS. Normal [facility] Comment on above: Performed By: #### S SCRN, GRASTCX #### [facility] [address] [place] [address] Dr. Loyd Parks STREPT SCREENon 03-03-2022 STREP SCREEN A Negative Normal NEGATIVE [facility] Comment on above: Performed By: #### S SCRN, GRASTCX #### [facility] [address] [place] [address] Dr. Loyd Parks Covid-19 PCR ([facility])on SARS-CoV-2 (COVID-19) RNA SAUNDRA+probe Ql (Unsp spec) Not detected Normal NOT DETECTED [facility] Comment on above: Result Comment: This test is not yet approved or cleared by the [place] FDA. When there are no FDA-approved or cleared tests available, and other criteria are met, FDA can make tests available under an emergency access mechanism called an Emergency Use Authorization (EUA). The EUA for this test is supported by the [place] of Health and Human Service's (HHS's) declaration [...] By: #### C MP, BNP, CMADM #### [facility] [address] [place] [address] Dr. Loyd Parks POINT OF CARE GLUCOSEon 10-1 Glucose [Mass/Vol] 133 mg/dL Critically high 74-106 [facility] Comment on above: Performed By: #### E RUR #### [facility] [address] [place], [place] [address] Dr. Loyd Parks POINT OF CARE GLUCOSEon 09-0 Glucose [Mass/Vol] 75 mg/dL Normal 74-106 [facility] Comment on above: Performed By: #### E RUR #### [facility] [address] [place] ABD/PELVIS WO CONon [...] SAURABH SINGH Date: 2021-09-03 08:35 Normal [facility] ER URINE PROFILEon 2 Bilirubin Ql (U) Negative Normal NEGATIVE [facility] Comment on above: Performed By: #### E RUR #### [facility] [address] [place] [address] Dr. Loyd Parks Clarity (U) CLEAR Normal CLEAR [facility] Comment on above: Performed By: #### E RUR #### [facility] [address] [place] [address] Dr. Loyd Parks Color (U) LT. YELLOW Normal YELLOW [facility] Comment on above: Performed By: #### E RUR #### [facility] [address] [place] [address] Dr. Loyd CONWAY A micrscopic examination will be performed if indicated. Normal [facility] Comment on above: Performed By: #### E RUR #### [facility] [address] [address] [address] Loyd Parks Glucose Ql (U) >1000 Abnormal NEGATIVE [facility] Comment on above: Performed By: #### E RUR #### [facility] [address] [place] [address] Dr. Loyd Parks Hemoglobin Ql (U) Negative Normal NEGATIVE [facility] Comment on above: Performed By: #### E RUR #### [facility] [address] [place] [address] Dr. Loyd Parks Ketones Ql (U) Negative Normal NEGATIVE [facility] Comment on above: Performed By: #### E RUR #### [facility] [address] [place] [address] Dr. Loyd Parks LEUKOCYTES Negative Normal NEGATIVE [facility] Comment on above: Performed By: #### E RUR #### [facility] [address] [place] [address] Dr. Loyd Parks Nitrite Ql (U) Negative Normal NEGATIVE [facility] Comment on above: Performed By: #### E RUR #### [facility] [address] [place] [address] Dr. Loyd Parks pH (U) 6.0 [pH] Normal 5-9 [facility] Comment on above: Performed By: #### E RUR #### [facility] [address] [place] [address] Dr. Loyd Parks SPEC GRAVITY 1.010 Normal 1.005-<=1.025 [facility] Comment on above: Performed By: #### E RUR #### [facility] [address] [place] [address] Dr. Loyd Parks UA PROTEIN Negative Normal NEGATIVE/ TRACE [facility] Comment on above: Performed By: #### E RUR #### [facility] [address] [place] [address] Dr. Loyd Parks UR MICRO IND NOT INDICATED Normal [facility] Comment on above: Performed By: #### E RUR #### [facility] [address] [place] [address] Dr. Loyd Parks Urobilinogen Qn (U) 0.2 {Malcolm'U}/dL Normal 0.2 - 1.0 [facility] Comment on above: Performed By: #### E RUR #### [facility] [address] [place] [address] Dr. Loyd Parks ALCOHOLon 07-31-2020 Ethanol [Mass/Vol] mg/dL Normal [facility] Comment on above: Result Comment: FOR MEDICAL USE ONLY. . REF VALUES <10 Performed By: #### A LC ####[facility] [place] [address] CBC AND DIFFERENTIALon 07-31 % AUTOMATED IMMATURE GRAN 0.4 % Normal 0.0 - 0.9 [facility] Comment on above: Result Comment: Rylie ture Granulocyte Count (IG) includes promyelocytes, myelocytes and metamyelocytes but does not include bands. Percent differential counts (%) should be interpreted in the context of the absolute cell counts (cells/L). Performed By: #### C BCDF #### [facility] [address] [place] [address] Basophils (Bld) [#/Vol] 0.05 10*3/uL Normal 0.00 - 0.10 [facility] Comment on above: Performed By: #### C BCDF #### [facility] [address] [place] [address] Basophils/100 WBC (Bld) 0.6 % Normal 0.0 - 2.0 [facility] Comment on above: Performed By: #### C BCDF #### [facility] [address] [place] [address] Eosinophils (Bld) [#/Vol] 0.21 10*3/uL Normal 0.00 - 0.40 [facility] Comment on above: Performed By: #### C BCDF #### [facility] [address] [place] [address] Eosinophils/100 WBC (Bld) 2.4 % Normal 0.0 - 6.0 [facility] Comment on above: Performed By: #### C BCDF #### [facility] [address] [place] [address] Erythrocyte distribution width (RBC) [Ratio] 13.2 % Normal 11.5 - 14.5 [facility] Comment on above: Performed By: #### C BCDF #### [facility] [address] [place] [address] Hematocrit (Bld) [Volume fraction] 50.0 % Normal 41.0 - 52.0 [facility] Comment on above: Performed By: #### C BCDF #### [facility] [address] [facility] [place] [address] Hemoglobin (Bld) [Mass/Vol] 17.3 g/dL Normal 13.5 - 17.5 [facility] Comment on above: Performed By: #### C BCDF #### [facility] [address] [facility] [place] [address] Lymphocytes (Bld) [#/Vol] 1.59 10*3/uL Normal 0.80 - 3.00 [facility] Comment on above: Performed By: #### C BCDF #### [facility] [address] [facility] [place] [address] Lymphocytes/100 WBC (Bld) 17.9 % Normal 13.0 - 44.0 [facility] Comment on above: Performed By: #### C BCDF #### [facility] [address] [place] [address] MCHC (RBC) [Mass/Vol] 34.6 g/dL Normal 32.0 - 36.0 [facility] Comment on above: Performed By: #### C BCDF #### [facility] [address] [place] [address] MCV (RBC) [Entitic vol] 89 fL Normal 80 - 100 [facility] Comment on above: Performed By: #### C BCDF #### [facility] [address] [place] [address] Monocytes (Bld) [#/Vol] 0.82 10*3/uL High 0.05 - 0.80 [facility] Comment on above: Performed By: #### C BCDF #### [facility] [address] [place] [address] Monocytes/100 WBC (Bld) 9.2 % Normal 2.0 - 10.0 [facility] Comment on above: Performed By: #### C BCDF #### [facility] [address] [place] [address] Neutrophils (Bld) [#/Vol] 6.18 10*3/uL High 1.60 - 5.50 [facility] Comment on above: Performed By: #### C BCDF #### [facility] [address] [facility] [place] [address] Neutrophils/100 WBC (Bld) 69.5 % Normal 40.0 - 80.0 [facility] Comment on above: Performed By: #### C BCDF #### [facility] [address] [place] [address] Platelets (Bld) [#/Vol] 215 10*3/uL Normal 150 - 450 [facility] Comment on above: Performed By: #### C BCDF #### [facility] [address] [place] [address] RBC 5.59 x10E12/L Normal 4.50 - 5.90 [facility] Comment on above: Performed By: #### C BCDF #### [facility] [address] [place] [address] WBC (Bld) [#/Vol] 8.9 10*3/uL Normal 4.4 - 11.3 [facility] Comment on above: Performed By: #### C BCDF #### [facility] [address] [place] [address] CHEST 1 VIEWon 07-31-2020 CHEST 1 VIEW STUDY: Chest Radiograph; 07/30/2020 10:53 PM INDICATION: Shortness of breath. COMPARISON: None available. ACCESSION NUMBER(S): [id number] ORDERING CLINICIAN: ZAID CUELLAR DO TECHNIQUE: Frontal chest was obtained at 2355 hours. FINDINGS: CARDIOMEDIASTINAL SILHOUETTE: Cardiomediastinal silhouette is normal in size and configuration. LUNGS: Lungs are clear. ABDOMEN: No remarkable upper abdominal findings. BONES: No acute osseous changes. IMPRESSION: No acute pulmonary abnormality. Signed by Rodrick Anna MD Electronically signed by: RODRICK ANNA MD Normal [facility] COMPREHENSIVE PANELon 2020 Albumin [Mass/Vol] 3.7 g/dL Normal 3.4 - 5.0 [facility] Comment on above: Performed By: #### C MP ####[facility] [place] [address] ALP [Catalytic activity/Vol] 80 U/L Normal 33 - 136 [facility] Comment on above: Performed By: #### C MP ####[facility] [place] [address] ALT [Catalytic activity/Vol] 12 U/L Normal 10 - 52 [facility] Comment on above: Result Comment: Jade ents treated with Sulfasalazine may generate falsely decreased results for ALT. Performed By: #### C MP ####[facility] [facility] [place] [place] [address] Anion gap [Moles/Vol] 13 mmol/L Normal 10 - 20 [facility] Comment on above: Performed By: #### C MP ####[facility] [facility] [place] [address] AST [Catalytic activity/Vol] 12 U/L Normal 9 - 39 [facility] Comment on above: Performed By: #### C MP ####[facility] [facility] [place] [place] [address] Bilirubin [Mass/Vol] 0.7 mg/dL Normal 0.0 - 1.2 [facility] Comment on above: Performed By: #### C MP ####[facility] [place] [address] Calcium [Mass/Vol] 9.2 mg/dL Normal 8.6 - 10.3 [facility] Comment on above: Performed By: #### C MP ####[facility] [facility] [place] [address] Chloride [Moles/Vol] 101 mmol/L Normal 98 - 107 [facility] Comment on above: Performed By: #### C MP ####[facility] [place] [address] Creatinine [Mass/Vol] 1.36 mg/dL High 0.50 - 1.30 [facility] Comment on above: Performed By: #### C MP ####[facility] [place] [address] GFR- AM. 61 mL/min/1.73m2 Normal >60 [facility] Comment on above: Result Comment: CALC ULATIONS OF ESTIMATED GFR ARE PERFORMED USING THE MDRD STUDY EQUATION FOR THE IDMS-TRACEABLE CREATININE METHODS. CLIN CHEM 2007;53:766-72 Performed By: #### C MP ####[facility] [facility] [place] [address] GFR-NON AM. 50 mL/min/1.73m2 Abnormal >60 [facility] Comment on above: Performed By: #### C MP ####[facility] [place] [address] Glucose [Mass/Vol] 390 mg/dL High 74 - 99 [facility] Comment on above: Performed By: #### C MP ####[facility] [place] [address] HCO3 (Bld) [Moles/Vol] 27 mmol/L Normal 21 - 32 [facility] Comment on above: Performed By: #### C MP ####[facility] [place] [address] Potassium [Moles/Vol] 4.1 mmol/L Normal 3.5 - 5.3 [facility] Comment on above: Performed By: #### C MP ####[facility] [place] [address] Protein [Mass/Vol] 6.8 g/dL Normal 6.4 - 8.2 [facility] Comment on above: Performed By: #### C MP ####[facility] [place] [address] Sodium [Moles/Vol] 137 mmol/L Normal 136 - 145 [facility] Comment on above: Performed By: #### C MP ####[facility] [place] [address] Urea nitrogen [Mass/Vol] 27 mg/dL High 6 - 23 [facility] Comment on above: Performed By: #### C MP ####[facility] [place] [address] CT HEAD WO CONTRASTon 2020 CT HEAD WO CONTRAST STUDY: CT Head without IV Contrast; 07/30/2020, 11:52 PM. INDICATION: Confusion, disorientation. COMPARISON: None Available. ACCESSION NUMBER(S): [id number] ORDERING CLINICIAN: ZAID CUELLAR DO TECHNIQUE: Noncontrast [...] Electronically signed by: RODRICK ANNA MD Normal [facility] MAGNESIUMon 07-31-2020 Magnesium [Mass/Vol] 2.04 mg/dL Normal 1.60 - 2.40 [facility] Comment on above: Performed By: #### M G #### [facility] [address] [place] [address] PT/INRon 07-31-2020 PT Coag (PPP) [Time] 12.0 s Normal 10.1 - 13.3 [facility] Comment on above: Performed By: #### P TINR #### [facility] [address] [place] [address] PT, INR 1.0 Normal 0.9 - 1.1 [facility] Comment on above: Performed By: #### P TINR #### [facility] [address] [place] [address] Provider Note - ED v2on 07-22 Provider Note - ED v2 Provider Note - ED v2: Chart Review: ED NOTES ED NOTES: History: This is an 80-year-old male presenting from the [facility] by [facility] for chief complaint of a medical evaluation. Patient left his home in [place] 3 days ago because he got into an argument with his and he has not been back since. He was finally located at a [facility] down the street when family [...] From Triage - ED 30-Jul-2020 23:17 Normal [facility] Risk Screen - Adult Emergenc yon 07-31-2020 [...] instruction; written material Cultural Considerationsnone Developmental Considerationsnone Denominational Considerationsnone Learning Assessment (Other Learner): Learning Assessment (Other Learner): Other learner availableno Pressure Injury/TB/Substance: Pressure Injury: Do you have a coughno Substance Use Current or Former Historynever: Cigarette/Tobacco, e-Cigarette/Vaping, Alcohol, Street Drugs Admission Risk Screen: Significant IndicatorsComplete CAGE: CAGE: Is this an injured patient at a Trauma Center ([facility]/[facility]): no Electronic Signatures: Elizabeth Ivan (RN) (Signed 30-Jul-2020 23:24) Authored: Preferred Language, Advanced Directives, Family Violence Adult, Learning Assessment (Patient), Learning Assessment (Other Learner), Pressure Injury/TB/Substance, Pressure Injury, CAGE Last Updated: 30-Jul-2020 23:24 by Elizabeth Ivan (MIGUEL) Normal [facility] TROPONIN Ion 07-31-2020 Troponin I.cardiac [Mass/Vol] ng/mL Normal 0.00 - 0.03 [facility] Comment on above: Result Comment: LESS THAN [...] is performed using different testing methodology at [facility] than at other [facility]. Direct result comparisons should only be made within the same method. Performed By: #### T ROP2 #### 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 [address] [place] [address] SQUAMOUS EPITH. CELLS <1 Normal [facility] Comment on above: Performed By: #### U AMIC #### [facility] [address] [place] [address] WBC 22 /HPF Abnormal 0-5 [facility] Comment on above: Performed By: #### U AMIC #### [facility] [id number] [place] [address] URINALYSISon 07-31-2020 Appearance (U) CLEAR Normal CLEAR [facility] Comment on above: Performed By: #### U A #### [facility] [address] [place] [address] Bilirubin Ql (U) Negative Normal NEGATIVE [facility] Comment on above: Performed By: #### U A #### [facility] [address] [place] [address] Color (U) STRAW Normal STRAW,YELLOW [facility] Comment on above: Performed By: #### U A #### [facility] [address] [place] [address] Glucose Ql (U) >=500(3+) Abnormal NEGATIVE [facility] Comment on above: Performed By: #### U A #### [facility] [address] [place] [address] Hemoglobin Ql (U) SMALL(1+) Abnormal NEGATIVE [facility] Comment on above: Performed By: #### U A #### [facility] [address] [place] [address] Ketones Ql (U) Negative Normal NEGATIVE [facility] Comment on above: Performed By: #### U A #### [facility] [address] [facility] [place] [address] Leukocyte esterase Test strip Ql (U) TRACE Abnormal NEGATIVE [facility] Comment on above: Performed By: #### U A #### [facility] [address] [facility] [place] [address] Nitrite Ql (U) Negative Normal NEGATIVE [facility] Comment on above: Performed By: #### U A #### [facility] [address] [facility] [place] [address] pH (U) 6.0 [pH] Normal 5.0 - 8.0 [facility] Comment on above: Performed By: #### U A #### [facility] [address] [facility] [place] [address] Protein Ql (U) 100(2+) Abnormal NEGATIVE [facility] Comment on above: Performed By: #### U A #### [facility] [address] [place] [address] Specific gravity (U) [Rel density] 1.025 Normal 1.005 - 1.035 [facility] Comment on above: Performed By: #### U A #### [facility] [address] [facility] [place] [address] Urobilinogen (U) [Mass/Vol] mg/dL Normal 0.0 - 1.9 [facility] Comment on above: Performed By: #### U A #### [facility] [address] [place] [address] Vital Signs Date Time Vital Sign Value Performing Clinician Facility 01-29-2024 13:02-0500 Body height 172.7 cm Perla Aguila MERCHANDISE MANAGER Work Phone: [facility] 01-29-2024 13:02-0500 Body mass index (BMI) [Ratio] 37.71 kg/m2 Perla Aguila MERCHANDISE MANAGER Work Phone: [facility] 01-29-2024 13:02-0500 Body temperature 97.81 [degF] Perla Aguila MERCHANDISE MANAGER Work Phone: [facility] 01-29-2024 13:02-0500 Body weight 112.49 kg Perla Aguila MERCHANDISE MANAGER Work Phone: [facility] 01-29-2024 13:02-0500 Diastolic blood pressure 70 mm[Hg] Perla Aguila MERCHANDISE MANAGER Work Phone: [facility] 01-29-2024 13:02-0500 Heart rate 74 /min Perla Aguila MERCHANDISE MANAGER Work Phone: [facility] 01-29-2024 13:02-0500 SaO2% (BldA) [Mass fraction] 95 % Perla Aguila MERCHANDISE MANAGER Work Phone: [facility] 01-29-2024 13:02-0500 Systolic blood pressure 128 mm[Hg] Perla Aguila MERCHANDISE MANAGER Work Phone: [facility] 01-08-2024 14:17-0400 Body height 172.7 cm Darcy Sandoval MERCHANDISE MANAGER Work Phone: [facility] 01-08-2024 14:17-0400 Body mass index (BMI) [Ratio] 37.56 kg/m2 Darcy Sandoval MERCHANDISE MANAGER Work Phone: [facility] 01-08-2024 14:17-0400 Body weight 112.04 kg Darcy Sandoval MERCHANDISE MANAGER Work Phone: [facility] 01-08-2024 14:17-0400 Diastolic blood pressure 84 mm[Hg] Darcy Sandoval MERCHANDISE MANAGER Work Phone: [facility] 01-08-2024 14:17-0400 Heart rate 92 /min Darcy Sandoval MERCHANDISE MANAGER Work Phone: [facility] 01-08-2024 14:17-0400 SaO2% (BldA) [Mass fraction] 98 % Darcy Sandoval MERCHANDISE MANAGER Work Phone: [facility] 01-08-2024 14:17-0400 Systolic blood pressure 124 mm[Hg] Darcy Sandoval MERCHANDISE MANAGER Work Phone: [facility] 12-25-2023 14:28-0400 Body height 172.7 cm Darcy [place] MERCHANDISE MANAGER Work Phone: [facility] 12-25-2023 14:28-0400 Body mass index (BMI) [Ratio] 38.32 kg/m2 Darcy Lori MERCHANDISE MANAGER Work Phone: [facility] 12-25-2023 14:28-0400 Body weight 114.31 kg Darcy [place] MERCHANDISE MANAGER Work Phone: [facility] 12-25-2023 14:28-0400 Diastolic blood pressure 68 mm[Hg] Darcy Sandoval MERCHANDISE MANAGER Work Phone: [facility] 12-25-2023 14:28-0400 Heart rate 88 /min Darcylenny Sandoval MERCHANDISE MANAGER Work Phone: [facility] 12-25-2023 14:28-0400 SaO2% (BldA) [Mass fraction] 97 % Darcy Lori MERCHANDISE MANAGER Work Phone: [facility] 12-25-2023 14:28-0400 Systolic blood pressure 128 mm[Hg] Darcy Sandoval MERCHANDISE MANAGER Work Phone: [facility] 09-16-2022 14:48-0400 Blood Pressure Location Umer VALENCIA [facility] 09-16-2022 14:48-0400 Diastolic blood pressure 74 mm[Hg] Umer VALENCIA [facility] 09-16-2022 14:48-0400 Heart rate 70 /min Umer VALENCIA [facility] 09-16-2022 14:48-0400 Respiratory rate 16 /min Umer VALENCIA [facility] 09-16-2022 14:48-0400 Systolic blood pressure 130 mm[Hg] Umer VALENCIA [facility] 04-26-2022 11:04-0500 Blood Pressure Location Umer VALENCIA [facility] 04-26-2022 11:04-0500 Diastolic blood pressure 78 mm[Hg] Umer VALENCIA [facility] 04-26-2022 11:04-0500 Heart rate 62 /min Umer VALENCIA [facility] 04-26-2022 11:04-0500 Respiratory rate 16 /min Umer VALENCIA [facility] 04-26-2022 11:04-0500 Systolic blood pressure 134 mm[Hg] Umer VALENCIA [facility] 12-03-2021 13:08-0400 Blood Pressure Location Umer VALENCIA [facility] 12-03-2021 13:08-0400 Diastolic blood pressure 70 mm[Hg] Umer VALENCIA [facility] 12-03-2021 13:08-0400 Heart rate 65 /min Umer VALENCIA [facility] 12-03-2021 13:08-0400 Respiratory rate 16 /min Umer VALENCIA [facility] 12-03-2021 13:08-0400 Systolic blood pressure 109 mm[Hg] Umer VALENCIA [facility] 09-03-2021 13:39-0400 Blood Pressure Location Umer VALENCIA [facility] 09-03-2021 13:39-0400 Diastolic blood pressure 67 mm[Hg] Umer VALENCIA [facility] 09-03-2021 13:39-0400 Heart rate 68 /min Umer VALENCIA [facility] 09-03-2021 13:39-0400 Respiratory rate 16 /min Umer VALENCIA [facility] 09-03-2021 13:39-0400 Systolic blood pressure 102 mm[Hg] Umer VALENCIA [facility] Encounters Encounter Date Encounter Type Care Provider Facility Start: 02-10-2024 ambulatory Marianela X Orzech Facilit y:EU Jillian Start: 01-29-2024 End: 01-29-2024 Bamboo flowsheet Perla Aguila MERCHANDISE MANAGER Work Phone: [facility] Start: 01-29-2024 End: 01-29-2024 Bamaudreyo flowsheet Perla Aguila MERCHANDISE MANAGER Work Phone: [facility] Start: 01-29-2024 End: 01-29-2024 ambulatory PERLA AGUILA Not Available Start: 01-29-2024 End: 01-29-2024 Office outpatient visit 25 minutes Perla gAuila MERCHANDISE MANAGER Work Phone: [facility] Comment on [...] 01-08-2024 End: 01-08-2024 Bamboo flowsheet Darcy Sandoval MERCHANDISE MANAGER Work Phone: [facility] Start: 01-08-2024 End: 01-08-2024 Bamboo flowsheet Darcy Sandoval MERCHANDISE MANAGER Work Phone: [facility] Start: 01-08-2024 End: 01-08-2024 Office outpatient visit 25 minutes Darcy Sandoval MERCHANDISE MANAGER Work Phone: [facility] Comment on above: Edema, unspecified t ype (Primary Dx); Altered mental status, unspecified altered mental status type Start: 12-25-2023 End: 12-25-2023 Office outpatient visit 25 minutes Darcy Sandoval MERCHANDISE MANAGER Work Phone: [facility] Comment on above: Localized edema (Leslee jazmine Dx); Acute cough Start: 12-25-2023 End: 12-25-2023 ambulatory DARCY SANDOVAL Not Available Start: 12-25-2023 End: 12-25-2023 Bamboo flowsheet Darcy Sandoval MERCHANDISE MANAGER Work Phone: [facility] Start: 12-25-2023 End: 12-25-2023 Bamboo flowsheet Darcy Sandoval MERCHANDISE MANAGER Work Phone: [facility] Start: 12-05-2023 End: 12-05-2023 ambulatory DARCY SANDOVAL [facility] Start: 11-30-2023 End: 11-30-2023 [facility] Start: 11-28-2023 End: 11-28-2023 [facility]: 11-21-2023 Evaluation and manag ement of inpatient [facility] Start: 11-18-2023 Evaluation and manag ement of inpatient [facility] Start: 11-17-2023 Evaluation and manag ement of inpatient ART MCKOY [facility] Start: 11-15-2023 Evaluation and manag ement of inpatient GILES [facility] Start: 11-15-2023 Evaluation and manag ement of inpatient [facility] Start: 11-15-2023 Evaluation and manag ement of inpatient ANUEL LO [facility] Start: 11-15-2023 Evaluation and manag ement of inpatient GILES [facility] Start: 11-15-2023 End: 11-15-2023 ambulatory UNKNOWN PROVIDER Facility:[facility] Start: 11-15-2023 End: 11-22-2023 Evaluation and management of inpatient CHAKA [facility] Start: 11-13-2023 End: 11-13-2023 ambulatory DARCY SANDOVAL Not Available Start: 11-11-2023 End: 11-11-2023 ambulatory Marianela X Orzech Facility:[facility] Start: 11-11-2023 End: 11-11-2023 Patient encounter procedure Marianela X Orzech [facility] [employer] Start: 10-23-2023 End: 10-23-2023 ambulatory DARCY SANDOVAL Not Available Start: 10-14-2023 End: 10-14-2023 ambulatory Marianela X Orzech [facility] Start: 10-14-2023 End: 10-14-2023 Patient encounter procedure Marianela X Orzech [facility] Start: 10-09-2023 End: 10-09-2023 ambulatory TOMMY GABRIEL Not Available Start: 08-01-2023 End: 08-01-2023 ambulatory JUAN PABLO ALANIZ Not Available Start: 06-19-2023 End: 06-19-2023 ambulatory JUAN PABLO ALANIZ Not Available Start: 05-13-2023 End: 05-13-2023 ambulatory CAIT DUNHAM Facility:[facility] Start: 05-13-2023 End: 05-13-2023 Patient encounter procedure CAIT DUNHAM [facility] Start: 04-23-2023 End: 04-23-2023 ambulatory JUAN PABLO ALANIZ Not Available Start: 03-26-2023 End: 03-26-2023 ambulatory JUAN PABLO ALANIZ Not Available Start: 02-27-2023 End: 02-27-2023 ambulatory DARCY SANDOVAL Not Available Start: 12-18-2022 End: 12-18-2022 ambulatory CAIT DUNHAM Facility:[facility] Start: 09-16-2022 End: 09-16-2022 Patient encounter procedure Umer VALENCIA [facility] Start: 07-26-2022 End: 07-27-[address] JUAN PABLO ALANIZ Facility:[facility] Start: 06-26-2022 End: 06-27-[address] JUAN PABLO ALANIZ Facility:[facility] Start: 05-23-2022 End: 05-24-[address] JUAN PABLO ALANIZ Facility:[facility] Start: 04-26-2022 End: 04-26-2022 Patient encounter procedure Umer VALENCIA [facility] Start: 04-22-2022 End: 04-23-[address] JUAN PABLO ALANIZ Facility:[facility] Start: 04-16-2022 End: 04-16-[address] JUAN PABLO ALANIZ Facility:[facility] Start: 04-08-2022 End: 04-08-2022 Patient encounter procedure Umer VALENCIA [facility] Start: 04-04-2022 ambulatory SHELLIE Sousa Facility:[facility] Start: 03-08-2022 End: 03-08-[address] JUAN PABLO ALANIZ Facility:[facility] Start: 03-04-2022 Encounter for preprocedural cardiovascular examination DR VINH HOLCOMB . [facility] Start: 03-04-2022 Encounter for preprocedural laboratory examination DR VINH HOLCOMB . [facility] Start: 03-03-2022 End: 03-03-[address] JUAN PABLO ALANIZ Facility:[facility] Start: 03-02-2022 Encounter for preprocedural cardiovascular examination DR VINH HOLCOMB . [facility] Start: 02-26-[address] VINH HOLCOMB [...] encounter procedure Umer VALENCIA [facility] Start: 11-29-2021 End: 11-30-2021 ambulatory MANDIE NOBLE [...] procedure Umer Antoine VALENCIA [facility] Start: 09-03-2021 End: 09-03-[address] JUAN PABLO ALANIZ Facility:[facility] Procedures Date Procedure Procedure Detail Performing Clinician Start: 01-22-2024 BLOOD CULTURE 2 Generic External Data Provider Start: 01-22-2024 BLOOD CULTURE 1 Generic External Data Provider Esophagogastroduodenoscopy Goldie VALENCIA Plan of Treatment Date Care Activity Detail Author Start: 01-07-2025 Urine screening for protein Diabetes: Urine Protein Screening [facility] Start: 12-04-2024 Urine screening for protein Diabetes: Urine Protein Screening [facility] Start: 03-04-2024 End: 03-04-2024 Patient encounter procedure 03/04/2024 3:50 PM EST Procedure Visit [facility] [address] [place] [id number] Tommy Gabriel DPM [address] [facility] [address] [place] [address] [facility] Start: 02-17-2024 Hemoglobin A1c [...] Acute cough Expected: 01/29/2024 (Approximate), Expires: 01/28/2025 [facility] Comment on above: Expected: 01/29/2024 (Approximate), [...] status type Expected: 01/08/2024 (Approximate), Expires: 01/07/2025 [facility] Comment on above: Expected: 01/08/2024 (Approximate), Expires: 01/07/2025 Start: 01-08-2024 End: 01-08-2024 Patient encounter procedure 01/08/2024 1:00 PM EDT Office Visit [facility] [address] [place] [phone] Darcy Sandoval NP [address] [place] [address] [facility] Start: 12-25-2023 End: 12-25-2023 Patient encounter procedure 12/25/2023 2:30 PM EDT Office Visit [facility] [address] [place] [phone] Darcy Sandoval NP [address] [place] [address] Arrived [facility] Comment on above: Arrived Start: 11-23-2023 Influenza vaccination Influenza Vacc ine (#1) [facility] Start: 08-22-2022 ambulatory Ambulatory Facility:[facility] Start: 08-06-2019 Pneumococcal Vaccine : 65+ Years (2 of 2 - PCV) Pneumococcal Vaccine: 65+ Years (2 of 2 - PCV) [facility] Start: 1950 Glaucoma screening Diabetes: R etinopathy Screening [facility] BLOOD CULTURE 1 BLOOD CULTURE 1 Lab Routine 01/22/2024 3:15 PM EDT [facility] BLOOD CULTURE 2 BLOOD CULTURE 2 Lab Routine 01/22/2024 3:19 PM EDT [facility] Immunizations Immunization Date Immunization Notes Care Provider Walt peck 01-13-2023 influenza virus vacc ine, unspecified formulation Marianela Ingram [facility] 01-13-2023 Influenza, High-dose Seasonal, Quadrivalent, Preservative Free Darcy Sandoval MERCHANDISE MANAGER Work Phone: [facility] 02-22-2022 influenza virus vacc ine, unspecified formulation Umer VALENCIA [facility] 02-22-2022 influenza, high dose seasonal, preservative-free Darcy Lori MERCHANDISE MANAGER Work Phone: [facility] 12-21-2020 SARS-CoV-2 (COVID-19 ) mRNA BNT-162b2 vax Umer [employer] [facility] 11-30-2020 SARS-CoV-2 (COVID-19 ) mRNA BNT-162b2 vax Umer VALENCIA [facility] 01-24-2020 influenza virus vacc ine, unspecified formulation Umer VALENCIA [facility] 01-24-2020 influenza, high dose seasonal, preservative-free Darcy [place] MERCHANDISE MANAGER Work Phone: [facility] 03-04-2019 influenza virus vacc ine, unspecified formulation Umer VALENCIA [facility] 03-04-2019 influenza, high dose seasonal, preservative-free Darcy Lori MERCHANDISE MANAGER Work Phone: [facility] 08-05-2018 pneumococcal polysaccharide vaccine, 23 valent Umer VALENCIA [facility] 12-18-2016 influenza virus vacc ine, unspecified formulation Umer VALENCIA [facility] 12-18-2016 influenza, high dose seasonal, preservative-free Darcy Lori MERCHANDISE MANAGER Work Phone: [facility] 12-06-2015 influenza virus vacc ine, unspecified formulation Umer VALENCIA [facility] 12-06-2015 influenza, high dose seasonal, preservative-free Darcy [place] MERCHANDISE MANAGER Work Phone: [facility] 12-21-2014 influenza virus vacc ine, unspecified formulation Umer VALENCIA [facility] 12-21-2014 influenza, high dose seasonal, preservative-free Darcy Lori MERCHANDISE MANAGER Work Phone: [facility] Payers Date Payer Category Payer Medicare [facility] MEDICARE ADVANTAGE [place] MEDICARE ADVANTAGE [id number] 2021-Present [address] [place] [id number] 2021 Medicare (Managed Care) [facility] [id number] 1959 Unknown [id number] 1959 Unknown [id number] 1938 Unknown [id number] 2.16.840.1.465933.3.579.2 .593 1938 Unknown [id number] 2.16.840.1.964368.3.579.2 .593 1938 Unknown [id number] 2.16.840.1.750409.3.579.2 .593 1938 Unknown [id number] 2.16.840.1.221199.3.579.2 .593 1938 Unknown [id number] 2.16.840.1.893981.3.579.2 .593 1938 Unknown [id number] 2.16.840.1.341650.3.579.2 .593 1938 Unknown [id number] 2.16.840.1.537472.3.579.2 .593 1938 Unknown [id number] 2.16.840.1.848710.3.579.2 .593 1938 Unknown [id number] 2.16.840.1.027039.3.579.2 .593 1938 Unknown [id number] 2.16.840.1.456399.3.579.2 .593 1938 Unknown [id number] 2.16.840.1.966370.3.579.2 .593 1938 Unknown [id number] 2.16.840.1.963815.3.579.2 .593 1938 Unknown [id number] 2.16.840.1.646977.3.579.2 .593 1938 Unknown [id number] 2.16.840.1.072247.3.579.2 .593 1938 Unknown [id number] 2.16.840.1.126863.3.579.2 .593 1938 Unknown [id number] 2.16.840.1.827374.3.579.2 .593 1938 Unknown [id number] 2.16.840.1.273947.3.579.2 .593 1938 Unknown [id number] 2.16.840.1.592751.3.579.2 .593 1938 Unknown [id number] 2.16.840.1.847473.3.579.2 .593 1938 Unknown [id number] 2.16.840.1.831562.3.579.2 .593 1938 Unknown [id number] 2.16.840.1.178653.3.579.2 .593 1938 Unknown [id number] 2.16.840.1.432767.3.579.2 .593 1938 Unknown [id number] 2.16.840.1.737841.3.579.2 .593 1938 Unknown [id number] 2.16.840.1.904182.3.579.2 .593 1938 Unknown [id number] 2.16.840.1.068316.3.579.2 .727 1938 Unknown [id number] 2.16.840.1.676026.3.579.2 .727 1938 Unknown [id number] 2.16.840.1.284490.3.579.2 .727 1938 Unknown [id number] 2.16.840.1.130181.3.579.2 .727 1938 Unknown [id number] 2.16.840.1.286979.3.579.2 .727 1938 Unknown [id number] 2.16.840.1.676987.3.579.2 .732 1938 Unknown [id number] 2.16.840.1.224052.3.579.2 .173 1938 Unknown [id number] 2.16.840.1.167193.3.579.2 .1259 1938 Unknown [id number] 2.16.840.1.291582.3.579.2 .1259 1938 Unknown [id number] 2.16.840.1.921385.3.579.2 .1259 1938 Unknown [id number] 2.16.840.1.782186.3.579.2 .125 1938 Unknown [id number] 2.16.840.1.845863.3.579.2 .1259 1938 Unknown [id number] 2.16.840.1.186099.3.579.2 .1259 1938 Unknown [id number] 2.16.840.1.757090.3.579.2 .1259 1938 Unknown [id number] 2.16.840.1.220778.3.579.2 .1259 1938 Unknown [id number] 2.16.840.1.708382.3.579.2 .1259 1938 Unknown [id number] 2.16.840.1.944796.3.579.2 .1259 1938 Unknown [id number] 2.16.840.1.847952.3.579.2 .1259 Social History Date Type Detail Facility Start: 09-03-2021 Tobacco smoking status Ex-smoker (fi nding) [facility] Start: 11-01-2022 End: 12-11-2023 Sex Assigned At Male [facility] Start: 04-26-2022 End: 11-14-2022 Tobacco smoking status Never smoked tobacco (finding) [facility] Tobacco smoking status Never [facility] Start: 11-14-2022 Tobacco use and exposure Smokeless [...] 11-11-2023 Functional Status N/A [facility] 09-16-2022 Functional Status N/A [facility] 04-26-2022 Functional Status N/A [facility] 12-03-2021 Functional Status N/A [facility] 09-03-2021 Functional Status N/A [facility] Clinical Notes 09-03-2021 to 01-29-2024 Fe Rojo LPN - 01/29/2024 1:00 PM ESTPatient Diane Sandoval NP - 01/08/2024 2:00 PM Mary Ellen Sandoval NP - 12/25/2023 2:30 PM EDT Note Date & Type Note Facility 01-29-2024 History of Present illness Narrative HPI Follow-up Additional comments: [facility] observation: admitted 01/22/24 dx: syncope,hypotension,dehydration discharged home 01/23/24 no med changes made Last edited by Fe Rojo LPN on 01/29/2024 1:07 PM. Subjective Patient ID: Nat Moore is a 83 y.o. male who presents for Follow-up ([facility] observation: admitted 01/22/24 dx: syncope,hypotension,dehydration discharged home [...] Past Medical History: Diagnosis Date Diabetes mellitus (CMS/[facility]) Diverticulosis History of being hospitalized 10/07/2023 [...] Melanie Boyle NP documented in this encounter [facility] 01-29-2024 Instructions Melanie Boyle NP - 01/29/2024 1:00 PM EST Start azithromycin 500 mg daily x 5 days for sinus infection. Okay to take Coricidin HBP over the counter for cough/congestion symptoms Follow up to be determined based on lab results. 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 documented in this encounter [facility] 12-25-2023 History of Present illness Narrative [...] follow-ups on file. documented in this encounter [facility] 11-22-2023 Note Hospital Medicine Discharge Summary [...] initially admitted to the hospitalist service from [place] due to recurrent episodes of syncope secondary [...] his presenting complaints. During his stay in [place] ED he suddenly developed bradycardia prolonged sinus pause up to 18 seconds and became unresponsive. Code was activated and at the beginning of CPR he had regained his consciousness. He had another episode of sinus pause of about 12 seconds prior to transfer, however did not lose his consciousness at this time. On arrival to [facility] blood pressure was 158/72 mmHg, pulse rate 78 bpm, regular, SpO2 100% on room air, respiratory rate 20/min, temperature 97.2. 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 CT of the abdomen with contrast done at [place] ED showed nonobstructive bowel gas pattern with [...] significantly. Daily evaluated the patient on 11/21/2023. [place] slip was removed and they deemed patient [...] cardiology, ICU, psychiatry Dear Dr. Corbin MD, [place] is advised to follow up with you within 1-2 weeks. Follow-up with: primary care, electrophysiology Scheduled appointments: Future Appointments Date Time Provider Department Center 12/02/2023 2:20 PM Liu Henning MD [facility] Your medication list START taking these medications Instructions Last Dose Given Next Dose Due amLODIPine 10 mg tablet Commonly known as: Norvasc Start taking on: November 23, 2023 Take 1 tablet (10 mg) by mouth in the morning. Do not start bef (more content not included)... [facility] 11-22-2023 Note Physical Therapy Name: Nat Moore Date of : 1940 Today's Date: 11/22/23 Pt is unable to be seen for therapy at this time secondary to pt to discharge @ 2:00 PM today. Check No Charge Time attempted: 1405 [facility] 11-22-2023 Note Pt originally set fo r 9am BLS transport to [facility] but per MD we will push back to 2pm transport due to high blood pressures. UPDATE 1:15PM- Per MD pt can still discharge today. Transport set for 2pm via [facility]. Assembled transfer packet and placed by chart. Sent final AVS and discharge orders via [facility]. Notified RN and pt's is aware of transport time. [facility] 11-21-2023 Note Attestation signed by Juan [...] is for the patient to go to [place] [facility]. Discussed with the family that our [...] with Dr. Liz. Melva Recinos MD PGY2 [facility] 11-21-2023 Note Hospital Medicine Daily Progress Note - 11/21/2023 2:13 PM; Room: [address] [place] [address] Admission: 11/15/2023 2:42 PM; Length of stay: 6 days THE HOSPITALIST TEAM PREFERS TO USE [employer] CHAT FOR COMMUNICATION 7AM-7PM. IF I DO NOT RESPOND WITHIN 15 MINUTES, PLEASE PAGE ME/CALL THROUGH THE PROCESS CONSULTANT. 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 [place] slip removed. No need for psych admission. [...] CALCIUM mg/dL 8. (more content not included)... [facility] 11-21-2023 Note Physical Therapy Physical Therapy [...] a.m. Upon entry, pt in bed. This LEATHER CRAFTSMAN introduces herself and intention for session. Per [...] Did state he was at [facility] .) Following Commands: Follows one step [...] 2 is given. Gait belt is donned, SHAPER OPERATOR is given on the right side and [...] to advance BLEs to EOB but uses LEATHER CRAFTSMAN's hand with his right hand to assist in raising upper body from bed. Bed Mobility 2 Bed Mobility From 2: Scooting Bed Mobility Type 2: To Bed Mobility to 2: (EOB in sitting) Level of Assistance 2: Minimum assistance Bed Mobility Comments 2: Pt uses LEATHER CRAFTSMAN's hand with his right hand to assist in scooting hips to EOB Transfers Transfer: Yes Transfer 1 Transfer From 1: Sit Transfer Type 1: To and from Transfer to 1: Stand Transfer Device 1: none (LEATHER CRAFTSMAN and aide on either side of pt) Transfer Level of Assistance 1: Minimum assistance, x2 Trials/Comments 1: Pt. instructed to (more content not included)... [facility] 11-21-2023 Note Attestation signed by Juan [...] Patient Name: Nat Moore MRN / CSN: [id number] Date of / Age: 1 1940 / [...] mild cognitive impairment originally presenting to the [facility] Emergency Room on 11/15/2023 for evaluation of recurrent episodes of syncope secondary to spontaneous prolonged sinus pause. The patient was transferred via air ambulance from the [facility]. 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 The patient reports being to his , Donna, and having 4 children. He reports he came from [place] where he lives, but was not able to describe why he came to hospital or where he is now. 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 Reported Behavior: Combative and agitated PRN Medications [...] injection PRN 8/ (more content not included)... [facility] 11-20-2023 Note 11/20/23 1730 Referral Data [...] Support Systems Spouse/significant other Type of Residence halfway facility Will patient need Precert for Post Acute needs? Yes Patient's goal for discharge would like the facility in [place] for rehab 1. [facility] 2. [place] 3. (if not accepted in [place]) she is ok with [facility]. Does the patient need discharge transport arranged? Yes SW called patient to discuss consult for SNF placement for rehab. Patient is currently confused and not able to answer questions. SW discussed network provider list. would like provider in [place] with [facility] [place] as 1st choice. She would [facility] as 2nd and she is ok if neither can accept for [facility] as 3rd choice. Referrals made as requested. Precert will be needed. NATALYA following. [facility] 11-20-2023 Note Attestation signed by William [...] initially admitted to the hospitalist service from [place] due to recurrent episodes of syncope secondary [...] his presenting complaints. During his stay in [place] ED he suddenly developed bradycardia prolonged sinus [...] of the abdomen with contrast done at [place] ED showed nonobstructive bowel gas pattern with [...] no focal deficit (more content not included)... [facility] 11-19-2023 Note Speech Sign Manufacturer ology Speech/Language Pathology Clinical Swallow Assessment Rx: [...] calcifications who presented via air ambulance from [facility] due to recurrent episodes of syncope secondary to spontaneous prolonged sinus pause. He had initially presented for worsening midsternal chest pain lower back pain located in his mid chest aching in nature, 6 out of 10 on intensity scale, nonradiating associated with SOB. During his stay at [place] he developed bradycardia prolonged sinus pause up [...] (in puree) Recommendations Duration of Treatment: 15 [facility] 11-19-2023 Note Attestation signed by William [...] Moore Age - 83 y[facility] 1940 [id number] Date of Admission - 11/15/2023 2:42 PM HPI/Hospital Course Nat Moore is a an 83-year-old gentleman with PMH significant for type 2 diabetes mellitus, essential hypertension, hyperlipidemia, CKD stage IIIa, bilateral lower extremity edema on diuretic therapy, osteoarthritis, depression and mild cognitive impairment was initially admitted to the hospitalist service from [place] due to recurrent episodes of syncope secondary [...] his presenting complaints. During his stay in [place] ED he suddenly developed bradycardia prolonged sinus [...] of the abdomen with contrast done at [place] ED showed nonobstructive bowel gas pattern with [...] Results CBC: Result (more content not included)... [facility] 11-19-2023 Note Attestation signed by Nora [...] calcifications who presented via air ambulance from [facility] due to recurrent episodes of syncope secondary to spontaneous prolonged sinus pause. He had initially presented for worsening midsternal chest pain lower back pain located in his mid chest aching in nature, 6 out of 10 on intensity scale, nonradiating associated with SOB. During his stay at [place] he developed bradycardia prolonged sinus pause up [...] NAD. Resting comfortably. Still in restraints. S/p Food Quality Sensor [employer] DC-PPM yesterday, tolerated well. OBJECTIVE Objective [...] , , Once (more content not included)... [facility] 11-19-2023 Note 11/19/23 1125 Admission Assessment [...] Interested Does the patient have a case investigator assigned to them through their insurance? No Living Arrangement (Current/Prior to Hospitalization) Private residence (with ) Does the patient have history of HHC or SNF? No Assistive Device Cane Patient's goal for discharge likely snf Was patient reminded that goal for discharge is 11am? No Does the patient have transportation at discharge? No Type of Residence halfway facility Is PT/OT appropriate? Yes Is PT/OT ordered? Yes Is SW consult appropriate? Yes Is SW consult ordered? Yes Do you understand the benefits of MyChart? No Were you able to send link and activate MyChart? No [facility] 11-19-2023 Note Consult rec'd for SN F. PT/OT recommend SNF. No family at bedside at this time. SW to try again later. [facility] 11-19-2023 Note Physical Therapy Physical Therapy [...] Level of Function Prior Function Level of Lane: Independent with ADLs and functional transfers, Needs [...] patient with difficul (more content not included)... [facility] 11-19-2023 Note Occupational Therapy Occupational Therapy Evaluation Patient Name: Nat Moore : 1940 Today's Date: 11/19/2023 Time In: 941 Time Out: 1005 admitted to the hospitalist service from [place] due to recurrent episodes of syncope secondary [...] directions Memory: Decreased short term memory, Decreased prison memory, Decreased recall of precautions, Decreased recall of biographical information, Decreased recall of recent events Communication: (labored , dysarthic) General Assessment General Assessment Hearing: ([place], hearing aids not observed but has them per nsg) Hand Dominance: Right Home Living Home Living Type of Home: (patient unable to report consistantly) Prior Level of Function Prior Function Level of Lane: (reports indep and drives) Prior Functional Mobility: [...] until discharge & PRN OT Discharge Recommendations: halfway facility placement OT - Discharge Recommendations Placed: Yes OT Goals Multi-Disciplinary Problems (from Occupational Therapy) Active Problems Problem: Balance Start Date: 11/19/23 Goal Start Date Expected End Date End Date LTG - Patient will maintain stand balance to allow for safe mobility 11/19/23 12/17/23 -- Problem: Bathing Start Date: 11/19/23 Goal Start Date Expected End Date End Date LTG (more content not included)... [facility] 11-18-2023 Note Attestation signed by William [...] Moore Age - 83 y.[facility]. [facility] 1940 [id number] Date of Admission - 11/15/2023 2:42 PM HPI/Hospital Course Nat Moore is a an 83-year-old gentleman with PMH significant for type 2 diabetes mellitus, essential hypertension, hyperlipidemia, CKD stage IIIa, bilateral lower extremity edema on diuretic therapy, osteoarthritis, depression and mild cognitive impairment was initially admitted to the hospitalist service from [place] due to recurrent episodes of syncope secondary [...] his presenting complaints. During his stay in [place] ED he suddenly developed bradycardia prolonged sinus [...] of the abdomen with contrast done at [place] ED showed nonobstructive bowel gas pattern with [...] 11.9* 12.4* HE (more content not included)... [facility] 11-18-2023 Note Attestation signed by Nora Rivera MD at 11/18/2023 3:43 PM GC: I saw this patient. I personally performed the critical/ab portions that determines the level of service. [...] calcifications who presented via air ambulance from [facility] due to recurrent episodes of syncope secondary to spontaneous prolonged sinus pause. He had initially presented for worsening midsternal chest pain lower back pain located in his mid chest aching in nature, 6 out of 10 on intensity scale, nonradiating associated with SOB. During his stay at [place] he developed bradycardia prolonged sinus pause up [...] NAD. Resting comfortably. Still in restraints. S/p Food Quality Sensor [employer] DC-PPM this morning, tolerated well. OBJECTIVE [...] PRN, Nils Lam (more content not included)... [facility] 11-18-2023 Note DUAL CHAMBER PACEMAK ER IMPLANT PROCEDURE NOTE DATE OF PROCEDURE: 11/18/23 PERFORMING PHYSICIAN: Dr. Sam Oscar CONSENT: Patient LOCATION: EP Lab PROCEDURE PERFORMED: 1. Implantation of pacemaker ([employer]) 2. Ultrasound guided venous access INDICATIONS: [...] using modified seldinger technique using a 5 Fijian micro-puncture needle on two occasions and 0.35 [...] for the device above the muscle. 6 Fijian Safesheaths were placed over the wire. An active fixation [employer] pacing lead was then delivered through the 6Fsheath to the right ventricle. After confirmation of lead position on orthogonal views (WILKINSON and TAMAZIGHT) to confirm septal position, the screw was [...] was then removed. Then an active fixation [employer] lead was delivered through the 6Fsheath to the right atrial appendage. After confirmation of lead position on orthogonal views (WILKINSON and TAMAZIGHT), the screw was activated. Good sensing parameters, [...] any concerns. Sam Oscar MD Cardiac Electrophysiology [facility] 11-17-2023 Note Attestation signed by Nora [...] calcifications who presented via air ambulance from [facility] due to recurrent episodes of syncope secondary to spontaneous prolonged sinus pause. He had initially presented for worsening midsternal chest pain lower back pain located in his mid chest aching in nature, 6 out of 10 on intensity scale, nonradiating associated with SOB. During his stay at [place] he developed bradycardia prolonged sinus pause up [...] oral, Daily, [place] (more content not included)... [facility] 11-17-2023 Note Attestation signed by William [...] initially admitted to the hospitalist service from [place] due to recurrent episodes of syncope secondary [...] his presenting complaints. During his stay in [place] ED he suddenly developed bradycardia prolonged sinus [...] of the abdomen with contrast done at [place] ED showed nonobstructive bowel gas pattern with [...] planning on taking the patient to the [facility] tomorrow for possible transvenous pacemaker placement [...] hours) at 11/17/2023 (more content not included)... [facility] 11-16-2023 Note Cardiovascular Labor atory Report [...] left radial artery was obtained. A 6 Fijian glide sheath was inserted without difficulty. Difficulty [...] a mid v (more content not included)... [facility] 11-16-2023 Note Attestation signed by Salena [...] permanent pacemaker implantation tomorrow Salena Alcaraz MD, [facility] Cardiology Progress Note Subjective Subjective: Patient [...] Value Ventricular Rate [address] Interval 266 QRS DURATION 104 QT Interval 390 QTC CALCULATION(BAZETT) 464 P [place] 71 R-[place] -60 T Wave [place] 49 Impression Sinus rhythm with 1st degree A-V block Left axis deviation Inferior infarct (cited on or before 21-JUL-2012) Cannot rule out Anterior infarct (cited on or before 15-NOV-2023) Abnormal ECG When compared with ECG of 15-NOV-2023 19:56, (unconfirmed) No significant change was found Lab Results Component Value Date TROPONINI 0.01 11/15/2023 Transthoracic echo (TTE) complete Result Date: 11/15/2023 1 [facility] Heart Station [address] [place] [address] [phone] (fax) Echocardiogram-[facility] Name: NAT MOORE Study Date: 11/15/2023 05:06 PM B/P: 158 mmHg/72 mmHg HR: Date of : 1940 Location: [facility] Height: 65 in. Age: 83 [...] sizeNo significant v (more content not included)... [facility] 11-15-2023 Note CODE BLUE was called on this patient after he sustained a 10 the second sinus pause and then a 7-second sinus pause. Patient with brief LOC. Patient with multiple episodes of nausea and vomiting. MICU fellow at bedside who states he will transfer patient to MICU for transcutaneous pacing. [facility] 11-15-2023 Note Hospital Medicine History and Physical 11/15/2023 5:58 PM THE HOSPITALIST TEAM PREFERS TO USE [employer] CHAT FOR COMMUNICATION 7AM-7PM. IF I DO NOT RESPOND WITHIN 15 MINUTES, PLEASE PAGE ME/CALL THROUGH THE PROCESS CONSULTANT. FROM 7PM-7AM, PLEASE PAGE [phone](COVR) Chief Complaint No chief complaint on file. History of Present Illness Nat Moore is an 83 y.o. severely obese male with a medical history significant for type 2 diabetes mellitus, essential hypertension, hyperlipidemia, CKD stage IIIa, bilateral lower extremity edema on diuretic therapy, osteoarthritis, coronary calcifications, depression, mild cognitive impairment, who was transferred via air ambulance from the [facility] due to recurrent episodes of syncope secondary to spontaneous prolonged sinus pause. Patient states that he presented to the [place] ED due to worsening midsternal chest pain [...] his presenting complaints. During his stay in [place] ED he suddenly developed bradycardia prolonged sinus [...] no oral abnorma (more content not included)... [facility] 11-11-2023 Hospital Discharge instructions Patient Education [...] your health care provider. General instructions Take pwjd-iht-zjeunju and prescription medicines only as told by [...] provider. Document Revised: 11/27/2020 Document Reviewed: 11/27/2020 Medium Patient Education 2022 Interwise. Follow Up Care 10/14/2023 13:29:56 With:RAUL Ingram APRN, Marianela Rodriguez, RIANNA, URL Address: When: Unknown Comments:f/up in 3 mos [facility] 11-11-2023 Note Patient Education Obstetrics and Gynecology [...] health care provider. General instructions ? Take alwh-kcb-sxkffhi and prescription medicines only as told by [...] your health care (more content not included)... [facility] 09-16-2022 Hospital Discharge instructions Patient Education 09/16/2022 [...] your health care provider. General instructions Take mcmo-tyv-fvbnmvp and prescription medicines only as told by [...] provider. Document Revised: 11/27/2020 Document Reviewed: 11/27/2020 Medium Patient Education 2022 Interwise. Follow Up Care 04/26/2022 11:39:09 With:ERIK MENG, Umer Schultz, URL Address: [facility] [address], [place] [address]- When: Unknown [facility] 05-23-2022 Note CONSULTATION CONSULTATION DATE: 05/23/2022 HISTORY: [...] indicated. Patient agrees with this plan. [facility] 04-26-2022 Hospital Discharge instructions Patient Education [...] urethra. Follow these instructions at home: Take bpny-nuq-shrjahg and prescription medicines only as told by [...] 03/10/2006 Document Revised: 02/02/2019 Document Reviewed: 04/14/2017 Medium Patient Education 2020 Interwise. Follow Up Care 04/08/2022 14:01:00 With:ERIK MENG, Umer Schultz, URL Address: [address] [place] [id number]- When: Unknown [facility] [place] 04-08-2022 Hospital Discharge instructions Patient [...] urethra. Follow these instructions at home: Take tvjh-wwu-nsqydro and prescription medicines only as told by [...] 03/10/2006 Document Revised: 02/02/2019 Document Reviewed: 04/14/2017 Medium Patient Education 2019 Interwise. Follow Up Care 12/03/2021 14:11:02 With:ERIK MENG, Umer Schultz, URL Address: [facility] [address] , [place] [address]- When: Unknown [facility] 01-22-2022 Note CONSULTATION CONSULTATION DATE: 01/22/2022 CHIEF [...] proceed. CC: Juan Pablo Alaniz M.D. [facility] 12-13-2021 Note CONSULTATION CONSULTATION DATE: 12/13/2021 [...] his pain are prolonged sitting, standing, walking, early interventionist hours, bending and ADLs. He does not use heat or ice to his back at this time. Current medications include gabapentin 200 mg t.i.d., nabumetone 750 mg b.i.d., [place] 5/325 t.i.d. Patient does use a walking [...] L3 and L4, L5. A refill for [place] 5/325 t.i.d. will be sent today. He will receive an oral U-Tox in the office today. Supportive measures such as stretching, a menthol heat rub and heat application to his back were discussed. I did recommend a Boost supplement daily. Patient will be followed up in the office post procedure and agrees to move forward. [facility] 12-03-2021 Hospital Discharge instructions Patient Education [...] urethra. Follow these instructions at home: Take qcec-zyv-wbebgqx and prescription medicines only as told by [...] 03/10/2006 Document Revised: 02/02/2019 Document Reviewed: 04/14/2017 Medium Patient Education 2020 Interwise. Follow Up Care 09/03/2021 14:17:23 With:ERIK MENG, Umer Schultz, URL Address: [facility] [address] [place] [address]- [phone] When:04/04/2022 Comments:PVR [facility] 10-02-2021 Note CONSULTATION PROCEDURE DATE: 10/02/2021 PREOPERATIVE [...] he reports mitigation of his pain symptomatology. [facility] Signed and Approved by: DR VINH HOLCOMB . 10/09/2021 09:28:00 [facility] 10-02-2021 Note CONSULTATION CONSULTATION DATE: [...] three times a day. We will re-prescribe [place] 5/325 t.i.d. which he had received from [...] to proceed. CC: Juan Pablo Alaniz M.D. [facility] Signed and Approved by: DR VINH HOLCOMB . 10/09/2021 09:28:00 [facility] 09-03-2021 Hospital Discharge instructions Patient [...] 03/10/2006 Document Revised: 11/27/2018 Document Reviewed: 02/07/2017 Medium Patient Education 2020 Interwise. 09/03/2021 13:53:06 Benign Prostatic Hyperplasia Benign Prostatic [...] urethra. Follow these instructions at home: Take fqel-yop-gtoriml and prescription medicines only as told by [...] 03/10/2006 Document Revised: 02/02/2019 Document Reviewed: 04/14/2017 Medium Patient Education 2020 Interwise. Follow Up Care 07/03/2021 15:21:16 With:Umer VALENCIA MD, URL Address: [facility] [address], [place] [address] [phone] When:Within 3 Month(s) Comments:f/u in 3 months with PVR scan [facility] Evaluation + Plan note Future Appointments Appointment Date:12/03/2021 01:15:00 PM Scheduled Provider:Umer VALENCIA MD Location:[facility] Appointment Type:URO Office Visit [facility] Evaluation + Plan note Future Appointments Appointment Date:04/08/2022 12:45:00 PM Scheduled Provider:Umer VALENCIA MD [facility] Type:[facility] Office Visit [facility] Evaluation + Plan note Future Appointments Appointment Date:04/26/2022 10:15:00 AM Scheduled Provider:Umer VALENCIA MD Location:[facility] Appointment Type:URO Office Visit [facility] Evaluation + Plan note Future Appointments Appointment Date:07/22/2022 08:45:00 AM Scheduled Provider:Umer VALENCIA MD [facility] App[facility] Type:URO Office Visit [facility] Evaluation + Plan note Future Appointments Appointment Date:12/20/2022 08:30:00 AM Scheduled Provider:Umer VALENCIA MD Location:[facility] Appointment Type:URO Office Visit [facility] Evaluation + Plan note Future Appointments Appointment Date:11/11/2023 01:00:00 PM Scheduled Provider:RAUL Ingram APRN, [place] [facility] Location:[facility] Appointment Type:URO Office Visit [facility] Evaluation + Plan note Future Appointments Appointment Date:02/10/2024 12:30:00 PM Scheduled Provider:RAUL Ingram APRN, [place] [facility] Location:[facility] Appointment Type:URO Office Visit [facility] Evaluation note Diagnosis Localized edema- Primary Edema [...] available for this section [facility] [employer] Hospital Discharge instructions No data available for this section [facility] progress note No data available for this section [facility] [employer] Summary Purpose Family History No Family History [...] section and content) DATE CREATED AUTHOR 11/14/2020 [facility] DATE CREATED AUTHOR AUTHOR'S ORGANIZ ATION 08/02/2022 [facility] DATE CREATED AUTHOR AUTHOR'S ORGANIZ ATION 11/13/2023 [facility] DATE CREATED AUTHOR AUTHOR'S ORGANIZ ATION 11/17/2023 [facility] DATE CREATED AUTHOR AUTHOR'S ORGANIZ ATION 11/24/2023 [facility] DATE CREATED AUTHOR AUTHOR'S ORGANIZ ATION 12/07/2023 [facility] DATE CREATED AUTHOR AUTHOR'S ORGANIZ ATION 01/31/2024 [facility] Care Team (unrecognized sect ion and content) Land Acquisition Manager Relationship Specialty Start Date End Date Juan Pablo Alaniz MD [address] [facility] [address] [place] [address] PCP - Peg CHUR[place] 03/24/21 Juan Pablo Alaniz MD [address] [facility] [address] [place] [address] PCP - General Internal Medicine 07/30/22 Land Acquisition Manager Relationship Specialty Start Date End Date Juan Pablo Alaniz MD [address] [facility] [address] [place] [address] PCP - Peg [place] 03/24/21 Juan Pablo Alaniz MD [address] [facility] [address] [place] [address] PCP - General Internal Medicine 07/30/22 Land Acquisition Manager Relationship Specialty Start Date End Date Juan Pablo Alaniz MD [address] [facility] [address] [place] [address] PCP - Peg MA 03/24/21 Juan Pablo Alaniz MD [address] [place] [address] PCP - General Internal Medicine 07/30/22 Land Acquisition Manager Relationship Specialty Start Date End Date Juan Pablo Alaniz MD [address] [place] [address] PCP - Peg [place] 03/24/21 Juan Pablo Alaniz MD [address] [place] [address] PCP - General Internal Medicine 07/30/22 Land Acquisition Manager Relationship Specialty Start Date End Date Juan Pablo Alaniz MD [address] [place] [address] PCP - Peg [place] 03/24/21 Juan Pablo Alaniz MD [address] [place] [address] PCP - General Internal Medicine 07/30/22 Land Acquisition Manager Relationship Specialty Start Date End Date Juan Pablo Alaniz MD [address] [place] [address] PCP - Peg MA 03/24/21 Juan Pablo Alaniz MD [address] [place] [address] PCP - General Internal Medicine 07/30/22 Reason [...] BE BASED ON THE PRIMARY CLINICAL RECORDS. [facility] [employer] [facility]. provides no warranty or guarantee of the accuracy or completeness of information in this document.
[2024-02-01] MEDS: CEFTRIAXONE 1,000 MG in 0.9 % SODIUM CHLORIDE 50 ML 100 MG IV (16:00)
[2024-02-01] MEDS: BENZONATATE 100 MG CAPSULE 200 MG PO ×2 (16:00→21:32)
[2024-02-01 16:02] LABS: Glucometer 91 mg/dL (74-106)
[2024-02-01] MEDS: ASPIRIN 81 MG TAB.CHEW PO (17:59)
[2024-02-01] MEDS: ATORVASTATIN CALCIUM 40 MG TABLET PO ×2 (18:00→21:31)
[2024-02-01] MEDS: DONEPEZIL HCL 10 MG TABLET PO ×2 (18:00→21:32)
[2024-02-01 20:26] LABS: Glucometer 191 mg/dL (74-106)
[2024-02-01] MEDS: MAGNESIUM OXIDE 400 MG TABLET PO (21:31)
[2024-02-01] MEDS: QUETIAPINE FUMARATE 25 MG TABLET PO (21:31)
[2024-02-01] MEDS: METHOCARBAMOL 500 MG TABLET PO (21:31)
[2024-02-01] MEDS: TRAZODONE HCL 50 MG TABLET 100 MG PO (21:31)
[2024-02-01] MEDS: OXYBUTYNIN CHLORIDE 5 MG TAB XL PO (21:31)
[2024-02-01] MEDS: GABAPENTIN 100 MG CAPSULE 200 MG PO (21:31)
[2024-02-01] MEDS: GLIPIZIDE 10 MG TABLET PO (21:32)
[2024-02-01] MEDS: INSULIN ASPART 300 UNIT/3 ML PEN SUBQ (21:32)
[2024-02-02] VITALS (22 sets, daily range): BP systolic 94–161; BP diastolic 50–88; PULSE 60–97; TEMP 36.4–37; O2SAT 91–96
[2024-02-02] MEDS: GABAPENTIN 100 MG CAPSULE 200 MG PO ×3 (05:19→22:59)
[2024-02-02] MEDS: BENZONATATE 100 MG CAPSULE 200 MG PO ×3 (05:19→23:03)
[2024-02-02] MEDS: 0.9 % SODIUM CHLORIDE 1,000 ML 75 ML IV ×2 (05:19→22:49)
--- OUTSIDE RECORDS SUMMARY | 2024-02-02 06:05 | XMS_ITS | CCD ---
Author Organization [facility] Care Team Providers Care Car Runner Name Role Phone JUAN PABLO ALANIZ Primary Care Physician [phone] DR JUAN PABLO ALANIZ Primary Care Unavailable [...] sources) Penicillin; Translations: [penicillin] Drug Allergy 12-01-2021 [facility] (3 sources) Penicillins; Translations: [PENICILLINS] Drug allergy (disorder) 11-15-2023 [facility] (10 sources) Penicillin G Drug Allergy 11-01-2022 Unknown [facility] Healthcare Work Phone: (9 sources) Codeine Drug Allergy 12-25-2023 [facility] Healthcare Medications Current Medications Medication Drug [...] Start: 11-28-2022 take 1 capsule by mo [facility] once daily FLUoxetine (PROzac) 20 MG [...] complication, without long-term current use of insulin ([facility]) TAKE ONE TABLET BY MOUTH TWICE A [...] Daily, # 30 tab(s), Refills(s) 11, Pharmacy: [facility], 167, cm, 09/16/22 15:10:00 EDT, Height/Length Dosing, 120, kg, 09/16/22 15:10:00 EDT, Weight Dosing Start Date: 10/01/23 Status: Ordered Start: 09-16-2022 End: 09-11-2023 take 1 tablet by mouth once daily Vesicare 10 mg Tab 10 mg = 1 tab(s), Oral, Daily, X 30 day(s), # 30 tab(s), Refills(s) 11, Pharmacy: [facility], 167, cm, 09/16/22 15:10:00 EDT, Height/Length Dosing, 120, kg, 09/16/22 15:10:00 EDT, Weight Dosing Start Date: 09/16/22 Stop Date: 09/11/23 Status: Ordered Start: 04-26-2022 take 1 tablet by shannon th once daily Vesicare 5 mg Tab 5 mg = 1 tab(s), Oral, Daily, # 30 tab(s), Refills(s) 11, Pharmacy: [facility], 174, cm, 12/03/21 13:40:00 EDT, Height/Length [...] Daily, # 30 cap(s), Refills(s) 11, Pharmacy: [facility], 174, cm, 09/03/21 13:40:00 EDT, [...] Daily, # 30 tab(s), Refills(s) 3, Pharmacy: [id number], 167, cm, 11/11/23 13:29:00 EDT, Height/Length Dosing, [...] disease (12 sources) Atherosclerotic heart disease of [place] coronary artery with unspecified angina pectoris; Translations: [...] 11-29-2021 Episodic Other aftercare (1 source) 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; Translations: [OTH HALF-WAY CURRENT DRUG THERAPY] Onset: 07-31-2022 Episodic Other aftercare (1 source) long-term (current) use of oral hypoglycemic drugs; Translations: [NETWORK CONTROL TECHNICIAN USE ORAL HYPOGLYCEMIC DX] Onset: 07-31-2022 [...] OF COVID-19] Onset: 03-06-2022 Unclassified (1 source) NETWORK CONTROL TECHNICIAN INJECT NONINSULN ANTIDIAB; Translations: [NETWORK CONTROL TECHNICIAN INJECT NONINSULN ANTIDIAB] Onset: 03-02-2022 Unclassified [...] sources) Long-term current use of insulin; Translations: [long-term (current) use of insulin] Onset: 07-23-2017 Resolved: [...] gap [Moles/Vol] 9 mmol/L Normal - [facility] Comment on above: Performed By: #### B MP #### [facility] [address] [place] [address] [place] [address] Car Usher: Eliud Leonard MD BUN/CRE Ratio 20 Normal 9- [facility] Comment on above: Performed By: #### B MP #### [facility] [address] [place] [address] [place], [place] [id number] Car Usher: Eliud Leonard MD Calcium [Mass/Vol] 8.5 mg/dL Low 8.6-10.4 [facility] Comment on above: Performed By: #### B MP #### [facility] [address] [place] [address] [place], [place] [phone] Car Usher: Eliud Leonadr MD Chloride [Moles/Vol] 108 mmol/L High 98-107 [facility] Comment on above: Performed By: #### B MP #### [facility] [address] [place] [address] [place], [place] [phone] Car Usher: Eliud Leonard MD CO2 [Moles/Vol] 26 mmol/L Normal - [facility] Comment on above: Performed By: #### B MP #### [facility] [address] [place] [address] Dr[place], [place] [phone] Car Usher: Eliud Leonard MD Creatinine [Mass/Vol] 1.6 mg/dL High 0.70-1.20 [facility] Comment on above: Performed By: #### B MP #### [facility] [address] [place] [address] Car Usher: Eliud Leonard MD GFR/1.73 sq M.predicted among non-blacks MDRD (S/P/Bld) [Vol rate/Area] 41 mL/min/{1.73_m2} Low >60 [facility] Comment on above: Result Comment: These [...] By: #### B MP #### [facility] [address] [place] [address] [place] [address] Car Usher: Eliud Leonard MD Glucose [Mass/Vol] 66 mg/dL Low 74-99 [facility] Comment on above: Performed By: #### B MP #### [address] [place] [address] Car Usher: Eliud Leonard MD Potassium [Moles/Vol] 4.3 mmol/L Normal 3.7-5.3 [facility] Comment on above: Performed By: #### B MP #### [facility] [address] [place], [place] [phone] Car Usher: Eliud Leonard MD Sodium [Moles/Vol] 143 mmol/L Normal 136-145 [facility] Comment on above: Performed By: #### B MP #### [facility] [address] [place] [address] Car Usher: Eliud Leonard MD Urea nitrogen [Mass/Vol] 32 mg/dL High 8-23 [facility] Comment on above: Performed By: #### B MP #### [facility] [address] [place], [place] [phone] Car Usher: Eliud Leonard MD Cult,Urineon 12-01-2023 Cult,Urine Specimen Description .CLEAN CATCH URINE Culture NO SIGNIFICANT GROWTH Report Status FINAL 12/01/2023 Normal [facility] Comment on above: Performed By: #### U RC #### [facility] [address] [place], [place] [id number] Car Usher: [place] MD [facility] [address] [place], [place] [phone] Car Usher: Eliud Leonard MD Urinalysis, Routineon 2023 Bilirubin, SemiQt,Ur Negative Normal NEG [facility] Comment on above: Performed By: #### U A #### [facility] [address] [place] [address] Dr[place], [place] [phone] Car Usher: Eliud Leonard MD Blood, Urine Negative Normal NEG [facility] Comment on above: Performed By: #### U A #### [facility] [address] [place] [address] Dr[place], [place] [phone] Car Usher: Eliud Leonard MD Clarity (U) Clear Normal CLEAR [facility] Comment on above: Performed By: #### U A #### [facility] [address] [place] [address] Dr[place], [place] [phone] Car Usher: Eliud Leonard MD Color (U) Yellow Normal YEL [facility] Comment on above: Performed By: #### U A #### [facility] [address] [place], [place] [phone] Car Usher: Eliud Leonard MD Glucose Ql (U) Negative Normal NEG [facility] Comment on above: Performed By: #### U A #### [facility] [address] [place], [place] [phone] Car Usher: Eliud Leonard MD Ketones Ql (U) Negative Normal NEG [facility] in Hospital Comment on above: Performed By: #### U A #### [facility] [address] [place] [address] Dr[place], [place] [phone] Car Usher: Eliud Leonard MD Leukocyte esterase Test strip Ql (U) Negative Normal NEG [facility] Comment on above: Performed By: #### U A #### [facility] [address] [place] [address] Dr[place], [place] [phone] Car Usher: Eliud Leonard MD Nitrite,Ur Negative Normal NEG [facility] Comment on above: Performed By: #### U A #### [address] [place], [place] [phone] Car Usher: Eliud Leonard MD PH,Ur 6.0 Normal 5.0-9.0 [facility] Comment on above: Performed By: #### U A #### [address] [place], [place] [phone] Car Usher: Eliud Leonard MD Protein Ql (U) Negative Normal NEG [facility] in Hospital Comment on above: Performed By: #### U A #### [address] [place], [place] [phone] Car Usher: Eliud Leonard MD Spec. [place],Ur 1.020 Normal 1.010-1.020 [facility] Comment on above: Performed By: #### U A #### [address] [place], [place] [phone] Car Usher: Eliud Leonard MD Urobilinogen,Ur Normal Normal 0.0-1.0 [facility] Comment on above: Performed By: #### U A #### [address] [place], [place] [phone] Car Usher: Eliud Leonard MD CT CERVICAL SPINE WO [...] midline. The ventricles and peripheral sulci are utmo-ed-jshqiyrohd dilated. There is decreased attenuation in the [...] Justice MD 11/28/23 Final result Normal [facility] CT HEAD WO CONTRASTon 2023 CT [...] midline. The ventricles and peripheral sulci are pyfm-lo-unrllbtwpi dilated. There is decreased attenuation in the [...] Justice MD 11/28/23 Final result Normal [facility] 30on 11-22-2023 30 The patient is [...] and maintained or improved Outcome: Progressing Normal [facility] BASIC METABOLIC PANELon 08-3 Anion gap [Moles/Vol] 10 mmol/L Normal 7-20 [facility] Comment on above: Performed By: #### L [id number] ####[facility] ([facility])[address] [place] [address] Calcium [Mass/Vol] 8.0 mg/dL Low 8.6-10.3 [facility] Comment on above: Performed By: #### L [id number] ####[facility] ([facility])[address] [place] [address] Chloride [Moles/Vol] 111 mmol/L High 98-107 [facility] Comment on above: Performed By: #### L [id number] ####[facility] [place] [address] CO2 [Moles/Vol] 29 mmol/L Normal 21-31 [facility] Comment on above: Performed By: #### L [id number] ####[facility] ([facility])[address] [place] [address] Creatinine [Mass/Vol] 1.36 mg/dL High 0.70-1.30 [facility] Comment on above: Performed By: #### L [id number] ####[facility] ([facility])[address] [place] [address] GLOMERULAR FILTRATION RATE ML/MIN/1.73 SQ M.PREDICTED 51.0 mL/min/1.73m*2 Low >60.0 [facility] Comment on above: Result Comment: The [facility]???s estimated glomerular filtration rate (eGFR) will [...] of individuals. Performed By: #### L [id number] ####[facility] ([facility] [place] [address] Glucose [Mass/Vol] 150 mg/dL High 70-100 [facility] Comment on above: Performed By: #### L [id number] ####[facility] ([facility] [place] [address] Potassium [Moles/Vol] 3.3 mmol/L Low 3.5-5.1 [facility] Comment on above: Performed By: #### L [id number] ####[facility] ([facility])[address] [place] [address] Sodium [Moles/Vol] 147 mmol/L High 136-145 [facility] Comment on above: Performed By: #### L [id number] ####[facility] ([facility])[address] [place] [address] Urea nitrogen [Mass/Vol] 25 mg/dL Normal 7-25 [facility] Comment on above: Performed By: #### L [id number] ####[facility] ([facility] [place] [address] UREA NITROGEN/CREATININ E (MASS RATIO) IN SER/PLAS 18.4 Normal [facility] Comment on above: Performed By: #### L [id number] ####[facility] ([facility])[address] [place] [address] CBC WITH AUTO DIFFERENTIALon 11-22-2023 Basophils (Bld) [#/Vol] 0.06 10*3/uL Normal 0.00-0.20 [facility] Comment on above: Performed By: #### L [id number] ####[facility] ([facility] [place] [address] Basophils/100 WBC (Bld) 0.7 % Normal 0.0-1.0 [facility] Comment on above: Performed By: #### L [id number] ####[facility] ([facility])[address] [place] [address] Eosinophils (Bld) [#/Vol] 0.37 10*3/uL Normal 0.00-0.50 [facility] Comment on above: Performed By: #### L [id number] ####[facility] ([facility])[address] [place] [address] Eosinophils/100 WBC (Bld) 4.2 % Normal 0.0-6.0 [facility] Comment on above: Performed By: #### L [id number] ####[facility] ([facility])[address] [place] [address] Erythrocyte distribution width (RBC) [Ratio] 15.2 % High 11.5-15.0 [facility] Comment on above: Performed By: #### L [id number] ####[facility] ([facility])[address] [place] [address] ERYTHROCYTE MEAN CORPUSCULAR HEMOGLOBIN CONCENTRATION (G/DL) BY AUTOMATED 32.6 g/dL Normal 32.0-35.0 [facility] Comment on above: Performed By: #### L [id number] ####[facility] ([facility])[address] [place] [address] Hematocrit (Bld) [Volume fraction] 38.3 % Low 39.0-55.0 [facility] Comment on above: Performed By: #### L [id number] ####[facility] ([facility])[address] [place] [address] Hemoglobin (Bld) [Mass/Vol] 12.5 g/dL Low 13.0-17.0 [facility] Comment on above: Performed By: #### L [id number] ####[facility] ([facility])[address] [place] [address] Immature granulocytes (Bld) [#/Vol] 0.15 10*3/uL Normal 0.00-0.20 [facility] Comment on above: Performed By: #### L [id number] ####[facility] ([facility])[address] [place] [address] Immature granulocytes/100 WBC (Bld) 1.7 % High 0.0-1.0 [facility] Comment on above: Performed By: #### L [id number] ####[facility] ([facility])[address] [place] [address] Lymphocytes (Bld) [#/Vol] 1.19 10*3/uL Low 1.20-4.00 [facility] Comment on above: Performed By: #### L [id number] ####[facility] ([facility])[address] [place] [address] Lymphocytes/100 WBC (Bld) 13.6 % Low 20.0-45.0 [facility] Comment on above: Performed By: #### L [id number] ####[facility] ([facility] [place] [address] MCH (RBC) [Entitic mass] 32.4 pg Normal 27.0-33.0 [facility] Comment on above: Performed By: #### L [id number] ####[facility] ([facility])[address] [place] [address] MCV (RBC) [Entitic vol] 99.2 fL High 82.0-98.0 [facility] Comment on above: Performed By: #### L [id number] ####[facility] ([facility])[address] [place] [address] Monocytes (Bld) [#/Vol] 0.93 10*3/uL Normal 0.10-1.00 [facility] Comment on above: Performed By: #### L [id number] ####[facility] ([facility])[address] [place] [address] Monocytes/100 WBC (Bld) 10.6 % Normal 5.0-12.0 [facility] Comment on above: Performed By: #### L [id number] ####[facility] ([facility])[address] [place] [address] Neutrophils (Bld) [#/Vol] 6.06 10*3/uL Normal 1.60-7.60 [facility] Comment on above: Performed By: #### L [id number] ####[facility] ([facility])[address] [facility] [place] [address] Neutrophils/100 WBC (Bld) 69.2 % Normal 40.0-72.0 [facility] Comment on above: Performed By: #### L [id number] ####[facility] ([facility])[address] [place] [address] NRBC (PER 100 WBCS) BY AUTOMATED COUNT 0.0 % Normal 0 [facility] Comment on above: Performed By: #### L [id number] ####[facility] ([facility])[address] [place] [address] PLATELETS (10*3/UL) IN BLOOD AUTOMATED COUNT 167 10*3/uL Normal 150-400 [facility] Comment on above: Performed By: #### L [id number] ####[facility] ([facility] [place] [address] RBC (Bld) [#/Vol] 3.86 10*6/uL Low 4.20-5.[address] [facility] Comment on above: Performed By: #### L [id number] ####[facility] ([facility])[address] [place] [address] WBC (Bld) [#/Vol] 8.76 10*3/uL Normal 4.00-10.[address] [facility] Comment on above: Performed By: #### L [id number] ####[facility] ([facility])[address] [place] [address] 30on 11-21-2023 30 The patient is Moderately Stable - Low risk of patient condition declining or worsening The patient's goals for the shift include rest/comfort The clinical goals for the shift include VSS Problem: Pain - Adult Goal: Verbalizes/displays adequate comfort level or baseline comfort level Outcome: Progressing Problem: Safety - Adult Goal: Free from fall injury Outcome: Progressing Normal [facility] 30 The patient is Moderately Stable [...] and maintained or improved Outcome: Progressing Normal [facility] BASIC METABOLIC PANELon 10-24 Anion gap [Moles/Vol] 9 mmol/L Normal 7-20 [facility] Comment on above: Performed By: #### L [id number] ####[facility] ([facility] [place] [address] Calcium [Mass/Vol] 8.0 mg/dL Low 8.6-10.3 [facility] Comment on above: Performed By: #### L [id number] ####[facility] ([facility] [place] [address] Chloride [Moles/Vol] 113 mmol/L High 98-107 [facility] Comment on above: Performed By: #### L [id number] ####[facility] ([facility])[address] [place] [address] CO2 [Moles/Vol] 27 mmol/L Normal 21-31 [facility] Comment on above: Performed By: #### L [id number] ####[facility] ([facility])[address] [place] [address] Creatinine [Mass/Vol] 1.47 mg/dL High 0.70-1.30 [facility] Comment on above: Performed By: #### L [id number] ####[facility] ([facility])[address] [place] [address] GLOMERULAR FILTRATION RATE ML/MIN/1.73 SQ M.PREDICTED 46.5 mL/min/1.73m*2 Low >60.0 [facility] Comment on above: Result Comment: The [facility]???s estimated glomerular filtration rate (eGFR) will [...] of individuals. Performed By: #### L [id number] ####[facility] ([facility] [place] [address] Glucose [Mass/Vol] 135 mg/dL High 70-100 [facility] Comment on above: Performed By: #### L [id number] ####[facility] ([facility])[address] [place] [address] Potassium [Moles/Vol] 3.3 mmol/L Low 3.5-5.1 [facility] Comment on above: Performed By: #### L [id number] ####[facility] ([facility])[address] [place] [address] Sodium [Moles/Vol] 146 mmol/L High 136-145 [facility] Comment on above: Performed By: #### L [id number] ####[facility] ([facility])[address] [place] [address] Urea nitrogen [Mass/Vol] 35 mg/dL High 7-25 [facility] Comment on above: Performed By: #### L [id number] ####[facility] ([facility])[address] [place] [address] UREA NITROGEN/CREATININ E (MASS RATIO) IN SER/PLAS 23.8 Normal [facility] Comment on above: Performed By: #### L [id number] ####[facility] ([facility])[address] [place] [address] CBCon 11-21-2023 Erythrocyte distribution width (RBC) [Ratio] 15.3 % High 11.5-15.0 [facility] Comment on above: Performed By: #### L [id number] ####[facility] ([facility])[address] [place] [address] ERYTHROCYTE MEAN CORPUSCULAR HEMOGLOBIN CONCENTRATION (G/DL) BY AUTOMATED 32.7 g/dL Normal 32.0-35.0 [facility] Comment on above: Performed By: #### L [id number] ####[facility] ([facility])[address] [place] [address] Hematocrit (Bld) [Volume fraction] 38.5 % Low 39.0-55.0 [facility] Comment on above: Performed By: #### L [id number] ####[facility] ([facility])[address] [place] [address] Hemoglobin (Bld) [Mass/Vol] 12.6 g/dL Low 13.0-17.0 [facility] Comment on above: Performed By: #### L [id number] ####[facility] ([facility])[address] [place] [address] MCH (RBC) [Entitic mass] 32.1 pg Normal 27.0-33.0 [facility] Comment on above: Performed By: #### L [id number] ####[facility] ([facility])[address] [place] [address] MCV (RBC) [Entitic vol] 98.2 fL High 82.0-98.0 [facility] Comment on above: Performed By: #### L [id number] ####[facility] ([facility])[address] [place] [address] PLATELETS (10*3/UL) IN BLOOD AUTOMATED COUNT 172 10*3/uL Normal 150-400 [facility] Comment on above: Performed By: #### L [id number] ####[facility] ([facility])[address] [place] [address] RBC (Bld) [#/Vol] 3.92 10*6/uL Low 4.20-5.[address] [facility] Comment on above: Performed By: #### L [id number] ####[facility] ([facility])[address] [place] [address] WBC (Bld) [#/Vol] 9.67 10*3/uL Normal 4.00-10.[address] [facility] Comment on above: Performed By: #### L [id number] ####[facility] ([facility])[address] [place] [address] 30on 11-20-2023 30 The patient is Moderately Stable - Low risk of patient condition declining or worsening The patient's goals for the shift include restraints off The clinical goals for the shift include stable hemodynamics Over the shift, the patient did not make progress toward the following goals. [facility] 30 Daily Case Managemen t Update [...] OT Six Click Score: 8 PT Recommendations: assisted facility placement OT Recommendations: assisted facility placement New Consults: Ancillary Consults (From [...] OT? Answer: eval and treat 11/19/23 0756 [facility] CONSULTon 11-20-2023 CONSULT -- Attestation signed by Juan Pablo Liz MD at 11/21/2023 12:08 PM As noted. Patient to be staffed in person on 11/20 Psychiatry Consultation Service - New Assessment Patient Name: Nat Moore MRN / CSN: [id number] Date of / Age: 2 1940 / [...] mild cognitive impairment originally presenting to the [facility] Emergency Room on 11/15/2023 for evaluation of recurrent episodes of syncope secondary to spontaneous prolonged sinus pause. The patient was transferred via air ambulance from the [facility]. Psychiatry was consulted for management of agitation secondary to dementia . Emergency Room Course: Imaging/Workup: On arrival to [facility] the patient's blood pressure was 158/72 mmHg, pulse rate 78 bpm, regular, SpO2 100% on room air, respiratory rate 20/min, temperature 97.2. 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 CT of the abdomen with contrast done at [place] [facility] showed nonobstructive bowel gas pattern with [...] would con (more content not included)... Normal [facility] NURSNOTEon 11-20-2023 NURSNOTE Patient Name: Nat [...] voiced no concerns at this time. The fha underwriter urged the primary RN to call the rapid team if any concerns arise overnight. Chevy Hines RN Rapid Response Team Nurse [phone] 11/20/2023 11:34 PM Normal [facility] 30on 11-19-2023 30 Daily Case Managemen t Update Multidisciplinary rounds have been completed. Barriers to Discharge: 11/18- patient here from OSH for recurrent episodes of syncope secondary to spontaneous prolonged sinus pauses. During his stay in [place] ED he suddenly developed bradycardia prolonged sinus [...] Answer: eval and treat 11/19/23 0756 Normal [facility] BASIC METABOLIC PANELon 08- Anion gap [Moles/Vol] 11 mmol/L Normal 7-20 [facility] Comment on above: Performed By: #### L [id number] ####[facility] (BEAKER)[address] [facility] [address] Calcium [Mass/Vol] 8.0 mg/dL Low 8.6-10.3 [facility] Comment on above: Performed By: #### L [id number] ####[facility] (BEAKER)[address] [place] [address] Chloride [Moles/Vol] 112 mmol/L High 98-107 [facility] Comment on above: Performed By: #### L [id number] ####[facility] (BEAKER)[address] [place] [address] CO2 [Moles/Vol] 26 mmol/L Normal 21-31 [facility] Comment on above: Performed By: #### L [id number] ####[facility] ([facility] [place] [address] Creatinine [Mass/Vol] 1.69 mg/dL High 0.70-1.30 [facility] Comment on above: Performed By: #### L [id number] ####[facility] ([facility])[address] [place] [address] GLOMERULAR FILTRATION RATE ML/MIN/1.73 SQ M.PREDICTED 39.3 mL/min/1.73m*2 Low >60.0 [facility] Comment on above: Result Comment: The [facility]???s estimated glomerular filtration rate (eGFR) will [...] of individuals. Performed By: #### L [id number] ####[facility] ([facility])[address] [place] [address] Glucose [Mass/Vol] 122 mg/dL High 70-100 [facility] Comment on above: Performed By: #### L [id number] ####[facility] ([facility])[address] [place] [address] Potassium [Moles/Vol] 3.5 mmol/L Normal 3.5-5.1 [facility] Comment on above: Performed By: #### L [id number] ####[facility] ([facility])[address] [place] [address] Sodium [Moles/Vol] 145 mmol/L Normal 136-145 [facility] Comment on above: Performed By: #### L [id number] ####[facility] ([facility] [place] [address] Urea nitrogen [Mass/Vol] 49 mg/dL High 7-25 [facility] Comment on above: Performed By: #### L [id number] ####[facility] ([facility])[address] [place] [address] UREA NITROGEN/CREATININ E (MASS RATIO) IN SER/PLAS 29.0 Normal [facility] Comment on above: Performed By: #### L [id number] ####[facility] ([facility])[address] [place] [address] CBCon 11-19-2023 Erythrocyte distribution width (RBC) [Ratio] 15.0 % Normal 11.5-15.0 [facility] Comment on above: Performed By: #### L [id number] #### [facility] ([facility]) [address] [place] [address] ERYTHROCYTE MEAN CORPUSCULAR HEMOGLOBIN CONCENTRATION (G/DL) BY AUTOMATED 32.8 g/dL Normal 32.0-35.0 [facility] Comment on above: Performed By: #### L [id number] #### [facility] ([facility]) [address] [place] [address] Hematocrit (Bld) [Volume fraction] 38.7 % Low 39.0-55.0 [facility] Comment on above: Performed By: #### L [id number] #### [facility] ([facility]) [address] [place] [address] Hemoglobin (Bld) [Mass/Vol] 12.7 g/dL Low 13.0-17.0 [facility] Comment on above: Performed By: #### L [id number] #### [facility] ([facility]) [address] [place] [address] MCH (RBC) [Entitic mass] 31.8 pg Normal 27.0-33.0 [facility] Comment on above: Performed By: #### L [id number] #### [facility] ([facility]) [address] [place] [address] MCV (RBC) [Entitic vol] 97.0 fL Normal 82.0-98.0 [facility] Comment on above: Performed By: #### L [id number] #### [facility] (BEAKER) [address] [place] [address] PLATELETS (10*3/UL) IN BLOOD AUTOMATED COUNT 148 10*3/uL Low 150-400 [facility] Comment on above: Performed By: #### L [id number] #### [facility] (BEAKER) [address] [place] [address] RBC (Bld) [#/Vol] 3.99 10*6/uL Low 4.20-5.[address] [facility] Comment on above: Performed By: #### L [id number] #### [facility] ([facility]) [address] [address] WBC (Bld) [#/Vol] 7.82 10*3/uL Normal 4.00-10.[address] [facility] Comment on above: Performed By: #### L [id number] #### [facility] ([facility]) [address] [place] [address] [facility] 11-17-2023 ANES -- Attestation signed by Sam [...] Date: 11/17/23 Procedure: Implant PPM Location: [facility] (Cath) Providers: Nora Rivera MD Clinical information reviewed: Allergies Meds Physical Exam Airway Mallampati: III Cardiovascular Rhythm: regular Rate: normal Dental Pulmonary Breath sounds clear to auscultation Abdominal Abdomen: soft Anesthesia Plan Additional Equipment Requests Normal [facility] BASIC METABOLIC PANELon 10-23 Anion gap [Moles/Vol] 11 mmol/L Normal 7-20 [facility] Comment on above: Performed By: #### L [id number] #### [facility] ([facility]AKER) [address] [place] [address] Calcium [Mass/Vol] 8.0 mg/dL Low 8.6-10.3 [facility] Comment on above: Performed By: #### L [id number] #### [facility] ([facility]AKER) [address] [place] [address] Chloride [Moles/Vol] 109 mmol/L High 98-107 [facility] Comment on above: Performed By: #### L [id number] #### [facility] (BEAKER) [address] [place] [address] CO2 [Moles/Vol] 25 mmol/L Normal 21-31 [facility] Comment on above: Performed By: #### L [id number] #### [facility] ([facility]AKER) [address] [place] [address] Creatinine [Mass/Vol] 1.42 mg/dL High 0.70-1.30 [facility] Comment on above: Performed By: #### L [id number] #### [facility] (BEAKER) [address] [place] [address] GLOMERULAR FILTRATION RATE ML/MIN/1.73 SQ M.PREDICTED 48.4 mL/min/1.73m*2 Low >60.0 [facility] Comment on above: Result Comment: The [facility]???s estimated glomerular filtration rate (eGFR) will [...] individuals. Performed By: #### L [id number] #### [facility] ([facility]) [address] [place] [address] Glucose [Mass/Vol] 169 mg/dL High 70-100 [facility] Comment on above: Performed By: #### L [id number] #### [facility] ([facility]) [address] [place] [address] Potassium [Moles/Vol] 4.3 mmol/L Normal 3.5-5.1 [facility] Comment on above: Performed By: #### L [id number] #### [facility] ([facility]) [address] [place] [address] Sodium [Moles/Vol] 141 mmol/L Normal 136-145 [facility] Comment on above: Performed By: #### L [id number] #### [facility] ([facility]) [address] [place] [address] Urea nitrogen [Mass/Vol] 33 mg/dL High 7-25 [facility] Comment on above: Performed By: #### L [id number] #### [facility] ([facility]) [address] [place] [address] UREA NITROGEN/CREATININ E (MASS RATIO) IN SER/PLAS 23.2 Normal [facility] Comment on above: Performed By: #### L [id number] #### [facility] ([facility]) [address] [place] [address] CBCon 11-17-2023 Erythrocyte distribution width (RBC) [Ratio] 14.9 % Normal 11.5-15.0 [facility] Comment on above: Performed By: #### L [id number] #### [facility] ([facility]) [address] [place] [address] ERYTHROCYTE MEAN CORPUSCULAR HEMOGLOBIN CONCENTRATION (G/DL) BY AUTOMATED 32.2 g/dL Normal 32.0-35.0 [facility] Comment on above: Performed By: #### L [id number] #### [facility] ([facility]) [address] [place] [address] Hematocrit (Bld) [Volume fraction] 39.5 % Normal 39.0-55.0 [facility] Comment on above: Performed By: #### L [id number] #### [facility] ([facility]) [address] [place] [address] Hemoglobin (Bld) [Mass/Vol] 12.7 g/dL Low 13.0-17.0 [facility] Comment on above: Performed By: #### L [id number] #### [facility] ([facility]) [address] [place] [address] MCH (RBC) [Entitic mass] 31.8 pg Normal 27.0-33.0 [facility] Comment on above: Performed By: #### L [id number] #### [facility] ([facility]) [address] [place] [address] MCV (RBC) [Entitic vol] 99.0 fL High 82.0-98.0 [facility] Comment on above: Performed By: #### L [id number] #### [facility] ([facility] [address] [place] [address] PLATELETS (10*3/UL) IN BLOOD AUTOMATED COUNT 157 10*3/uL Normal 150-400 [facility] Comment on above: Performed By: #### L [id number] #### [facility] ([facility] [address] [place] [address] RBC (Bld) [#/Vol] 3.99 10*6/uL Low 4.20-5.[address] [facility] Comment on above: Performed By: #### L [id number] #### [facility] ([facility]) [address] [place] [address] WBC (Bld) [#/Vol] 9.04 10*3/uL Normal 4.00-10.[address] [facility] Comment on above: Performed By: #### L [id number] #### [facility] ([facility]) [address] [place] [address] HEMOGLOBIN A1Con 11-17-2023 Glucose [Mass/Vol] 114 mg/dL Normal [facility] Comment on above: Order Comment: NO VA RIANT Performed By: #### L [id number] ####[facility] ([facility])[address] [place] [address] HbA1c (Bld) [Mass fraction] 5.6 % Normal 4.0-6.0 [facility] Comment on above: Order Comment: NO VA RIANT Performed By: #### L [id number] ####[facility] ([facility])[address] [place] [address] HPon 11-17-2023 HP -- Attestation signed by [...] placement of PPM in the AM. Normal [facility] LIPID PANELon 11-17-2023 CHOL/HDL 3.8 mg/dL Normal [facility] Comment on above: Performed By: #### L [id number] ####[facility] ([facility])[address] [place] [address] Cholesterol [Mass/Vol] 127 mg/dL Normal 120-200 [facility] Comment on above: Performed By: #### L [id number] ####[facility] ([facility])[address] [place] [address] Magnesium [Mass/Vol] 81 mg/dL Normal 40-149 [facility] Comment on above: Result Comment: TRIG LYCERIDE REFERENCE RANGE: 20 YEARS AND OLDER CARDIOVASCULAR RISK LESS THAN 150 mg/dL LOW RISK 150 TO 199 mg/dL BORDERLINE RISK 200 mg/dL AND GREATER HIGH RISK Performed By: #### L [id number] ####[facility] ([facility])[address] [place] [address] Magnesium [Mass/Vol] 78 mg/dL Normal 0-160 [facility] Comment on above: Performed By: #### L [id number] ####[facility] ([facility])[address] [place] [address] Magnesium [Mass/Vol] 33 mg/dL Normal 23-92 [facility] Comment on above: Performed By: #### L [id number] ####[facility] ([facility] [place] [address] NON HDL CHOL. (LDL+VLDL) 94 Normal [facility] Comment on above: Performed By: #### L [id number] ####[facility] ([facility])[address] [place] [address] TOTAL VLDL-C 16 mg/dL Normal 0-40 [facility] Comment on above: Performed By: #### L [id number] ####[facility] ([facility])[address] [place] [address] LIPOPROTEIN A (LPA)on 2023 Magnesium [Mass/Vol] 23 mg/dL Normal <=29 [facility] Comment on above: Result Comment: Perf ormed By: [employer] [address] [place] [address] Pastry Finisher: Rivas Castillo MD, PhD CLIA Number: [id number] Performed By: #### L [id number] #### [facility] ([facility]) [address] [place] [address] MAGNESIUMon 11-17-2023 Magnesium [Mass/Vol] 2.0 mg/dL Normal 1.9-2.7 [facility] Comment on above: Performed By: #### L [id number] ####[facility] ([facility])[address] [place] [address] PHOSPHORUSon 11-17-2023 Magnesium [Mass/Vol] 3.1 mg/dL Normal 2.5-5.0 [facility] Comment on above: Performed By: #### L [id number] #### [facility] ([facility]) [address] [place] [address] 30on 11-16-2023 30 The patient is Moderately [...] or at baseline Outcome: Not Progressing Normal [facility] ANESon 11-16-2023 ANES Patient: Nat Moore [...] Additional Equipment Requests Jovita Sanchez MD, MPH, [facility], [facility], [facility] Interventional Cardiology Pager Email: [email or web address] Normal [facility] B-TYPE NATRIURETIC PEPTIDEon 11-16-2023 Natriuretic peptide B (Bld) [Mass/Vol] 103 pg/mL High 0-100 [facility] Comment on above: Performed By: #### L [id number] #### [facility] ([facility]) [address] [place] [address] BASIC METABOLIC PANELon 10-23 Anion gap [Moles/Vol] 10 mmol/L Normal 7-20 [facility] Comment on above: Performed By: #### L [id number] #### [facility] ([facility] [address] [place] [address] Calcium [Mass/Vol] 8.2 mg/dL Low 8.6-10.3 [facility] Comment on above: Performed By: #### L [id number] #### [facility] (BEAKER) [address] [place] [address] Chloride [Moles/Vol] 108 mmol/L High 98-107 [facility] Comment on above: Performed By: #### L [id number] #### [facility] (BEAKER) [address] [place] [address] CO2 [Moles/Vol] 27 mmol/L Normal 21-31 [facility] Comment on above: Performed By: #### L [id number] #### [facility] (BEAKER) [address] [place] [address] Creatinine [Mass/Vol] 1.53 mg/dL High 0.70-1.30 [facility] Comment on above: Performed By: #### L [id number] #### [facility] ([facility]) [address] [place] [address] GLOMERULAR FILTRATION RATE ML/MIN/1.73 SQ M.PREDICTED 44.3 mL/min/1.73m*2 Low >60.0 [facility] Comment on above: Result Comment: [facility]???s estimated glomerular filtration rate (eGFR) will [...] individuals. Performed By: #### L [id number] #### [facility] ([facility]) [address] [place] [address] Glucose [Mass/Vol] 124 mg/dL High 70-100 [facility] Comment on above: Performed By: #### L [id number] #### [facility] ([facility]) [address] [place] [address] Potassium [Moles/Vol] 4.3 mmol/L Normal 3.5-5.1 [facility] Comment on above: Performed By: #### L [id number] #### [facility] ([facility]) [address] [place] [address] Sodium [Moles/Vol] 141 mmol/L Normal 136-145 [facility] Comment on above: Performed By: #### L [id number] #### [facility] ([facility]) [address] [facility] [address] Urea nitrogen [Mass/Vol] 31 mg/dL High 7-25 [facility] Comment on above: Performed By: #### L [id number] #### [facility] ([facility]) [address] [place] [address] UREA NITROGEN/CREATININ E (MASS RATIO) IN SER/PLAS 20.3 Normal [facility] Comment on above: Performed By: #### L [id number] #### [facility] ([facility]) [address] [place] [address] Anion gap [Moles/Vol] 10 mmol/L Normal 7-20 [facility] Comment on above: Performed By: #### L [id number] #### [facility] ([facility]) [address] [place] [address] Calcium [Mass/Vol] 8.1 mg/dL Low 8.6-10.3 [facility] Comment on above: Performed By: #### L [id number] #### [facility] ([facility]) [address] [place] [address] Chloride [Moles/Vol] 108 mmol/L High 98-107 [facility] Comment on above: Performed By: #### L [id number] #### [facility] ([facility]) [address] [place] [address] CO2 [Moles/Vol] 27 mmol/L Normal 21-31 [facility] Comment on above: Performed By: #### L [id number] #### [facility] ([facility]) [address] [place] [address] Creatinine [Mass/Vol] 1.40 mg/dL High 0.70-1.30 [facility] Comment on above: Performed By: #### L [id number] #### [facility] ([facility]) [address] [place] [address] GLOMERULAR FILTRATION RATE ML/MIN/1.73 SQ M.PREDICTED 49.3 mL/min/1.73m*2 Low >60.0 [facility] Comment on above: Result Comment: [facility]???s estimated glomerular filtration rate (eGFR) will [...] individuals. Performed By: #### L [id number] #### [facility] ([facility]) [address] [place] [address] Glucose [Mass/Vol] 136 mg/dL High 70-100 [facility] Comment on above: Performed By: #### L [id number] #### [facility] ([facility]) [address] [place] [address] Potassium [Moles/Vol] 4.3 mmol/L Normal 3.5-5.1 [facility] Comment on above: Performed By: #### L [id number] #### [facility] ([facility]) [address] [place] [address] Sodium [Moles/Vol] 141 mmol/L Normal 136-145 [facility] Comment on above: Performed By: #### L [id number] #### [facility] ([facility]) [address] [place] [address] Urea nitrogen [Mass/Vol] 27 mg/dL High 7-25 [facility] Comment on above: Performed By: #### L [id number] #### [facility] ([facility]) [address] [place] [address] UREA NITROGEN/CREATININ E (MASS RATIO) IN SER/PLAS 19.3 Normal [facility] Comment on above: Performed By: #### L [id number] #### [facility] ([facility]) [address] [place] [address] CBCon 11-16-2023 Erythrocyte distribution width (RBC) [Ratio] 15.1 % High 11.5-15.0 [facility] Comment on above: Performed By: #### L [id number] #### [facility] ([facility]) [address] [place] [address] ERYTHROCYTE MEAN CORPUSCULAR HEMOGLOBIN CONCENTRATION (G/DL) BY AUTOMATED 32.4 g/dL Normal 32.0-35.0 [facility] Comment on above: Performed By: #### L [id number] #### [facility] ([facility]) [address] [place] [address] Hematocrit (Bld) [Volume fraction] 36.7 % Low 39.0-55.0 [facility] Comment on above: Performed By: #### L [id number] #### [facility] ([facility]) [address] [place] [address] Hemoglobin (Bld) [Mass/Vol] 11.9 g/dL Low 13.0-17.0 [facility] Comment on above: Performed By: #### L [id number] #### [facility] ([facility]) [address] [place] [address] MCH (RBC) [Entitic mass] 32.0 pg Normal 27.0-33.0 [facility] Comment on above: Performed By: #### L [id number] #### [facility] ([facility]) [address] [place] [address] MCV (RBC) [Entitic vol] 98.7 fL High 82.0-98.0 [facility] Comment on above: Performed By: #### L [id number] #### [facility] ([facility]) [address] [place] [address] PLATELETS (10*3/UL) IN BLOOD AUTOMATED COUNT 157 10*3/uL Normal 150-400 [facility] Comment on above: Performed By: #### L [id number] #### [facility] ([facility]) [address] [place] [address] RBC (Bld) [#/Vol] 3.72 10*6/uL Low 4.20-5.[address] [facility] Comment on above: Performed By: #### L [id number] #### [facility] ([facility]) [address] [place] [address] WBC (Bld) [#/Vol] 8.83 10*3/uL Normal 4.00-10.[address] [facility] Comment on above: Performed By: #### L [id number] #### [facility] ([facility]) [address] [place] [address] on 11-16-2023 H&P reviewed. Apparently this morning, [...] wishes to proceed. Jovita Sanchez MD, MPH, [facility], [facility], [facility] Interventional Cardiology Pager Email: [email or web address] Normal [facility] HP -- Attestation signed by Art [...] which are billed separately. Art Mckoy MD [facility] Pulmonary and Critical Care Medicine Adult ICU History & Physical Patient - Nat Moore Age - 83 y.o. - 1940 [facility] # - [id number] Date of Admission - 11/15/2023 2:42 PM Chief Complaint Syncope History of Present Illness Nat Moore is a an 83-year-old gentleman with PMH significant for type 2 diabetes mellitus, essential hypertension, hyperlipidemia, CKD stage IIIa, bilateral lower extremity edema on diuretic therapy, osteoarthritis, depression and mild cognitive impairment was initially admitted to the hospitalist service from [place] due to recurrent episodes of syncope secondary [...] his presenting complaints. During his stay in [place] ED he suddenly developed bradycardia prolonged sinus [...] of the abdomen with contrast done at [place] ED showed nonobstructive bowel gas pattern with [...] planning on taking the patient to the Aviation [employer]dnance Officer tomorrow for possible transvenous pacemaker placement. PMH: [...] sodium (C (more content not included)... Normal [facility] LACTIC ACID WITH 4 HOUR REFL EXon 11-16-2023 LACTATE (MMOL/L) IN SER/PLAS 1.2 mmol/L Normal 0.5-2.2 [facility] Comment on above: Performed By: #### L [id number] #### [facility] ([facility]AKER) [address] [place] [address] MAGNESIUMon 11-16-2023 Magnesium [Mass/Vol] 2.1 mg/dL Normal 1.9-2.7 [facility] Comment on above: Performed By: #### L [id number] #### [facility] ([facility]) [address] [place] [address] Magnesium [Mass/Vol] 1.7 mg/dL Low 1.9-2.7 [facility] Comment on above: Performed By: #### L [id number] #### [facility] ([facility]) [address] [place] [address] PRO-BNPon 11-16-2023 Natriuretic peptide B (Bld) [Mass/Vol] 576 pg/mL High 0-300 [facility] Comment on above: Result Comment: An a ge-independent cutoff point of 300 pg/ml has a 98% negative predictive value excluding acute heart failure. Test Performed by [employer] [address] [place] [address] - Released 11/16/2023 20:27 Performed By: #### L [id number] ####[facility] [id number] [place] [address] TSH3 REFLEX TO FT4on 024 THYROTROPIN (MIU/L) IN SER/PLAS BY DETECTION LIMIT <= 0.05 MIU/L 1.67 mIU/L Normal 0.34-5.60 [facility] Comment on above: Performed By: #### L [id number] #### [facility] ([facility]) [address] [place] [address] 30on 11-15-2023 30 The patient is Moderately [...] and maintained or improved Outcome: Progressing Normal [facility] CBCon 11-15-2023 Erythrocyte distribution width (RBC) [Ratio] 15.2 % High 11.5-15.0 [facility] Comment on above: Performed By: #### L [id number] ####[facility] ([facility])[address] [place] [address] ERYTHROCYTE MEAN CORPUSCULAR HEMOGLOBIN CONCENTRATION (G/DL) BY AUTOMATED 32.8 g/dL Normal 32.0-35.0 [facility] Comment on above: Performed By: #### L [id number] ####[facility] ([facility])[address] [place] [address] Hematocrit (Bld) [Volume fraction] 37.8 % Low 39.0-55.0 [facility] Comment on above: Performed By: #### L [id number] ####[facility] ([facility])[address] [place] [address] Hemoglobin (Bld) [Mass/Vol] 12.4 g/dL Low 13.0-17.0 [facility] Comment on above: Performed By: #### L [id number] ####[facility] ([facility])[address] [place], [place] [address] MCH (RBC) [Entitic mass] 31.9 pg Normal 27.0-33.0 [facility] Comment on above: Performed By: #### L [id number] ####[facility] ([facility])[address] [place] [address] MCV (RBC) [Entitic vol] 97.2 fL Normal 82.0-98.0 [facility] Comment on above: Performed By: #### L [id number] ####[facility] ([facility])[address] [place] [address] PLATELETS (10*3/UL) IN BLOOD AUTOMATED COUNT 172 10*3/uL Normal 150-400 [facility] Comment on above: Performed By: #### L [id number] ####[facility] ([facility])[address] [place] [address] RBC (Bld) [#/Vol] 3.89 10*6/uL Low 4.20-5.[address] [facility] Comment on above: Performed By: #### L [id number] ####[facility] ([facility])[address] [place] [address] WBC (Bld) [#/Vol] 8.89 10*3/uL Normal 4.00-10.[address] [facility] Comment on above: Performed By: #### L [id number] ####[facility] ([facility])[address] [place] [address] COMPREHENSIVE METABOLIC PANE Dmitri 11-15-2023 Albumin [Mass/Vol] 3.7 g/dL Normal 3.5-5.7 [facility] Comment on above: Performed By: #### L [id number] #### [facility] ([facility]) [address] [place] [address] ALP [Catalytic activity/Vol] 70 U/L Normal 34-104 [facility] Comment on above: Performed By: #### L [id number] #### [facility] ([facility]) [address] [place] [address] ALT [Catalytic activity/Vol] 7 U/L Normal 7-52 [facility] Comment on above: Performed By: #### L [id number] #### [facility] ([facility]) [address] [place] [address] Anion gap [Moles/Vol] 9 mmol/L Normal 7-20 [facility] Comment on above: Performed By: #### L [id number] #### [facility] ([facility]) [address] [place] [address] AST [Catalytic activity/Vol] 11 U/L Low 13-39 [facility] Comment on above: Performed By: #### L [id number] #### [facility] ([facility]) [address] [place] [address] Bilirubin [Mass/Vol] 0.6 mg/dL Normal 0.3-1.0 [facility] Comment on above: Performed By: #### L [id number] #### [facility] ([facility]) [address] [place] [address] Calcium [Mass/Vol] 8.2 mg/dL Low 8.6-10.3 [facility] Comment on above: Performed By: #### L [id number] #### [facility] ([facility]) [address] [place] [address] Chloride [Moles/Vol] 107 mmol/L Normal 98-107 [facility] Comment on above: Performed By: #### L [id number] #### [facility] ([facility]) [address] [place] [address] CO2 [Moles/Vol] 29 mmol/L Normal 21-31 [facility] Comment on above: Performed By: #### L [id number] #### [facility] ([facility]) [address] [place] [address] Creatinine [Mass/Vol] 1.37 mg/dL High 0.70-1.30 [facility] Comment on above: Performed By: #### L [id number] #### [facility] ([facility]) [address] [place] [address] GLOMERULAR FILTRATION RATE ML/MIN/1.73 SQ M.PREDICTED 50.6 mL/min/1.73m*2 Low >60.0 [facility] Comment on above: Result Comment: The [facility]???s estimated glomerular filtration rate (eGFR) will [...] individuals. Performed By: #### L [id number] #### [facility] ([facility]) [address] [place] [address] Glucose [Mass/Vol] 120 mg/dL High 70-100 [facility] Comment on above: Performed By: #### L [id number] #### [facility] ([facility]) [address] [place] [address] Potassium [Moles/Vol] 4.1 mmol/L Normal 3.5-5.1 [facility] Comment on above: Performed By: #### L [id number] #### [facility] ([facility] [address] [place] [address] Protein [Mass/Vol] 6.0 g/dL Normal 6.0-8.3 [facility] Comment on above: Performed By: #### L [id number] #### [facility] ([facility]) [address] [place] [address] Sodium [Moles/Vol] 141 mmol/L Normal 136-145 [facility] Comment on above: Performed By: #### L [id number] #### [facility] ([facility]) [address] [facility] [place] [address] Urea nitrogen [Mass/Vol] 26 mg/dL High 7-25 [facility] Comment on above: Performed By: #### L [id number] #### [facility] ([facility]) [address] [place] [address] UREA NITROGEN/CREATININ E (MASS RATIO) IN SER/PLAS 19.0 Normal [facility] Comment on above: Performed By: #### L [id number] #### [facility] ([facility]) [address] [place] [address] CONSULTon 11-15-2023 CONSULT Division of Cardiovascular Medicine Interventional Cardiology Consult Chief Complaint: Transfer from [place] HPI: 83 yo with h/o HTN, CKD, dyslipidemia presented to [facility] with c/o chest and back pain. While being evaluated he had episodes of prolonged sinus pauses (12-18 sec?) with loss of consciousness and vomiting. He was Life flighted to [facility]. On arrival , I [...] infarctions or CHF. 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 Patient Active Problem List Diagnosis Syncope and [...] plan on (more content not included)... Normal [facility] CT HEAD WO IV CONTRASTon CT [...] GAGANDEEP CLAUDIO MD. 3 Invalid Interpretation Code [facility] HPon 11-15-2023 Division of Cardiovascular Medicine Interventional Cardiology Consult Chief Complaint: Transfer from [place] HPI: 83 yo with h/o HTN, CKD, dyslipidemia presented to [facility] with c/o chest and back pain. While being evaluated he had episodes of prolonged sinus pauses (12-18 sec?) with loss of consciousness and vomiting. He was Life flighted to [facility]. On arrival , I [...] infarctions or CHF. 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 Patient Active Problem List Diagnosis Syncope and [...] plan on (more content not included)... Normal [facility] MAGNESIUMon 11-15-2023 Magnesium [Mass/Vol] 1.7 mg/dL Low 1.9-2.7 [facility] Comment on above: Performed By: #### L [id number] #### [facility] ([facility]) [address] [place] [address] NURSNOTEon 11-15-2023 ELIEL Pitch Gatherer reach out to Cardiology (Dr. Figueroa) to notify her of the pt transferring to MICU due to change in condition and code blue being called. She asked if the patient was paced at bedside and nurse replied no but pt was transferred and will be paced in MICU. [facility] ELIEL Pitch Gatherer attempted to reach out to family via home number in chart and it wasn't in service. Charge nurse MIGUEL Lloyd was notified and MICU was notified as well by MIGUEL Lloyd. [facility] ELIEL Bedside report given to MIGUEL Ghosh prior to transfer to MICU due to change in condition and code blue being called for asystole lasting 10.19 seconds. Normal [facility] EILEL Spoke with Dr. Wendy dominguez via telephone [...] done and we'll go from there. Normal [facility] TROPONIN Ion 11-15-2023 Troponin I.cardiac [Mass/Vol] 0.01 ng/mL Normal 0.00-0.04 [facility] Comment on above: Performed By: #### L [id number] #### [facility] ([facility]) [address] [place] [address] Urology Office/Clinic Noteon 11-12-2023 Urology Office/Clinic Note [...] call if too cost prohibitive, sent to Lucid[employer]Jillian sanchez -f/up in 3 mos 2. BPH [...] 23-valent vac (more content not included)... Normal [facility] Comment on above: Result Comment: Elec [...] APRN, Marianela Rodriguez Where: [facility] [address] [place] [address] You Need to Schedule the Following Appointments [...] Leaking ur (more content not included)... Normal [facility] [place] [facility] [facility] [place] [facility] October 14, 2023 NAT MOORE [address] [place] [address] [address] [place] [address] : 1940 Dear Nat, You missed your [...] any future cancellations. Sincerely, [facility] [address], [place] [address] [facility] Patient Letter FTMCon 2023 Patient Letter FT May 13, 2023 JOHNSASHELY MOORE [address] [facility] [address] [place] [address] : 1940 Dear Nat, You missed your [...] any future cancellations. Sincerely, [facility] [address] [facility], [place] [address] [facility] BNPon 07-27-2022 Natriuretic peptide B (Bld) [Mass/Vol] 178.0 pg/mL Normal <=1,800.0 [facility] Comment on above: Performed By: #### C MP, BNP, CMADM #### [facility] [address] [place], [place] [address] Dr. Loyd Parks CARDIAC SPARKLE ADMITon 023 CK [Catalytic activity/Vol] 50 U/L Normal 39-308 [facility] Comment on above: Performed By: #### C MP, BNP, CMADM #### [facility] [address] [place] [address] [address] Loyd Parks CK.MB [Mass/Vol] 0.83 ng/mL Normal <=3.60 [facility] Comment on above: Performed By: #### C MP, BNP, CMADM #### [facility] [address] [place] [address] Dr. Loyd Parks HSTROP 6.3 pg/mL Normal 4.0-76.1 [facility] Comment on above: Result Comment: CUT- OFF POINTS HAVE BEEN ESTABLISHED BASED ON THE FOURTH UNIVERSAL DEFINITIONS OF MYOCARDIAL INFARCTION. THE UPPER REFERENCE LIMIT (URL) OF TROPONIN, DEFINED THE 99TH PERCENTILE OF cTnI DISTRIBUTION IN A REFERENCE POPULATION, HAS BEEN CONFIRMED THE DECISION THRESHOLD FOR [place] DIAGNOSIS. Performed By: #### C MP, BNP, CMADM #### [facility] [address] [place] [address] Dr. Loyd Parks WM 121 ng/mL Critically high 16-96 [facility] Comment on above: Performed By: #### C MP, BNP, CMADM #### [facility] [address] [place] [address] Dr. Loyd Parks CBC AUTO DIFFon 07-27-2022 BASO # 0.1 103/ul Normal 0.0-0.1 [facility] Comment on above: Performed By: #### C BC #### [facility] [address] [place] [address] Dr. Loyd Parks Basophils/100 WBC (Bld) 0.6 % Normal 0.2-2.0 [facility] Comment on above: Performed By: #### C BC #### [facility] [address] [place] [address] [address] Loyd Parks EO # 0.5 103/ul Normal 0.0-0.7 [facility] Comment on above: Performed By: #### C BC #### [facility] [address] [place] [address] Dr. Loyd Parks Eosinophils/100 WBC (Bld) 4.8 % Normal 0.9-7.0 [facility] Comment on above: Performed By: #### C BC #### [facility] [address] [place] [address] Dr. Loyd Parks Erythrocyte distribution width (RBC) [Ratio] 13.5 % Normal 11.0-15.0 [facility] Comment on above: Performed By: #### C BC #### [facility] [address] [place] [address] Dr. Loyd Parks Hematocrit (Bld) [Volume fraction] 39.7 % Critically low 42.0-54.0 [facility] Comment on above: Performed By: #### C BC #### [facility] [address] [place] [address] Dr. Loyd Parks Hemoglobin (Bld) [Mass/Vol] 13.1 g/dL Critically low 14.0-18.0 [facility] Comment on above: Performed By: #### C BC #### [facility] [address] [place] [address] Dr. Loyd Parks IG # 0.05 10e3/ul Critically high 0.00-0.[address] [facility] Comment on above: Performed By: #### C BC #### [facility] [address] [place] [address] Dr. Loyd Parks IG % 0.5 % Normal 0.0-0.5 [facility] Comment on above: Performed By: #### C BC #### [facility] [address] [place] [address] Dr. Loyd Parks LYMPH # 1.4 103/ul Normal 1.2-3.8 [facility] Comment on above: Performed By: #### C BC #### [facility] [address] [place] [address] Dr. Loyd Parks Lymphocytes/100 WBC (Bld) 14.1 % Critically low 20.5-60.0 [facility] Comment on above: Performed By: #### C BC #### [facility] [address] [place] [address] Dr. Loyd Parks MANUAL DIFF REQ NO Normal [facility] Comment on above: Performed By: #### C BC #### [facility] [address] [place] [address] [address] Loyd Parks MCH (RBC) [Entitic mass] 31.6 pg Normal 25.9-34.0 [facility] Comment on above: Performed By: #### C BC #### [facility] [address] [place] [address] Dr. Loyd Parks MCHC (RBC) [Mass/Vol] 33.0 g/dL Normal 29.9-35.2 [facility] Comment on above: Performed By: #### C BC #### [facility] [address] [place] [address] Dr. Loyd Parks MCV (RBC) [Entitic vol] 95.7 fL Critically high 80.0-94.0 [facility] Comment on above: Performed By: #### C BC #### [facility] [address] [place] [address] Dr. Loyd Parks MONO # 1.0 103/ul Critically high 0.3-0.8 [facility] Comment on above: Performed By: #### C BC #### [facility] [address] [place] [address] Dr. Loyd Parks Monocytes/100 WBC (Bld) 9.7 % Normal 1.7-12.0 [facility] Comment on above: Performed By: #### C BC #### [facility] [address] [place] [address] Dr. Loyd Parks NEUT # 7.2 103/ul Critically high 1.4-6.5 [facility] Comment on above: Performed By: #### C BC #### [facility] [address] [place] [address] Dr. Loyd Parks Neutrophils/100 WBC (Bld) 70.3 % Normal 43.0-75.0 [facility] Comment on above: Performed By: #### C BC #### [facility] [address] [place] [address] Dr. Loyd Parks Platelet mean volume (Bld) [Entitic vol] 10.8 fL Normal 9.5-13.5 [facility] Comment on above: Performed By: #### C BC #### [facility] [address] [place] [address] [address] Loyd Parks PLT 199 103/ul Normal 150-450 [facility] Comment on above: Performed By: #### C BC #### [facility] [address] [id number] Loyd Parks RBC 4.15 106/ul Critically low 4.70-6.10 [facility] Comment on above: Performed By: #### C BC #### [facility] [address] [place] [address] [address] Loyd Parks WBC 10.2 103/ul Normal 4.0-11.0 [facility] Comment on above: Performed By: #### C BC #### [facility] [address] [place] [address] Dr. Loyd Parks CULTURE BLOODon 07-27-2022 Microscopic examination of blood, culture Culture Observations: NO GROWTH AT 5 DAYS. Normal [facility] Comment on above: Performed By: #### E RUR #### [facility] [address] [place] [address] [address] Loyd Parks Covid-19 PCR (CVDTB)on SARS-CoV-2 (COVID-19) RNA SAUNDRA+probe Ql (Unsp spec) Not detected Normal NOT DETECTED [facility] Comment on above: Result Comment: This test is not yet approved or cleared by the [place] FDA. When there are no FDA-approved or cleared tests available, and other criteria are met, FDA can make tests available under an emergency access mechanism called an Emergency Use Authorization (EUA). The EUA for this test is supported by the Manufacturing Executive of Health and Human Service's (HHS's) declaration [...] SARS-CoV-2. Performed By: #### E RUR #### [facility] [address] [place] [address] Dr. Loyd Parks LACTATE/LACTIC ACIDon 2022 Lactate [Moles/Vol] 2.2 mmol/L Critically high 0.4-2.0 [facility] Comment on above: Performed By: #### C MP, BNP, CMADM #### [facility] [address] [place] [address] Dr. Loyd Parks PROF 14(COMP METB)on 023 Albumin [Mass/Vol] 3.3 g/dL Critically low 3.4-5.0 [facility] Comment on above: Performed By: #### C MP, BNP, CMADM #### [facility] [address] [place] [address] Dr. Loyd Parks Albumin/Globulin [Mass ratio] 0.9 {ratio} Normal [facility] Comment on above: Performed By: #### C MP, BNP, CMADM #### [facility] [address] [place] [address] Dr. Loyd Parks ALP [Catalytic activity/Vol] 91 U/L Normal 46-116 [facility] Comment on above: Performed By: #### C MP, BNP, CMADM #### [facility] [address] [place] [address] Dr. Loyd Parks ALT [Catalytic activity/Vol] 18 U/L Normal 16-63 [facility] Comment on above: Performed By: #### C MP, BNP, CMADM #### [facility] [address] [place] [address] Dr. Loyd Parks Anion gap [Moles/Vol] 12.2 mmol/L Normal [facility] Comment on above: Performed By: #### C MP, BNP, CMADM #### [facility] [address] [place] [address] Dr. Loyd Parks AST [Catalytic activity/Vol] 15 U/L Normal 15-37 [facility] Comment on above: Performed By: #### C MP, BNP, CMADM #### [facility] [address] [place] [address] [address] Loyd Parks Bilirubin [Mass/Vol] 0.4 mg/dL Normal 0.2-1.0 [facility] Comment on above: Performed By: #### C MP, BNP, CMADM #### [facility] [address] [place] [address] [address] Loyd Parks Calcium [Mass/Vol] 8.7 mg/dL Normal 8.5-10.1 [facility] Comment on above: Performed By: #### C MP, BNP, CMADM #### [facility] [address] [place] [address] Dr. Loyd Parks Chloride [Moles/Vol] 105 mmol/L Normal 98-107 [facility] Comment on above: Performed By: #### C MP, BNP, CMADM #### [facility] [address] [place] [address] Dr. Loyd Parks CO2 [Moles/Vol] 28.0 mmol/L Normal 21.0-32.0 [facility] Comment on above: Performed By: #### C MP, BNP, CMADM #### [facility] [address] [place] [address] Dr. Loyd Parks Creatinine [Mass/Vol] 2.25 mg/dL Critically high 0.70-1.30 [facility] Comment on above: Performed By: #### C MP, BNP, CMADM #### [facility] [address] [place] [address] Dr. Loyd Parks EGFR-AF BRAZILIAN 34 mL/min/1.73m2 Critically low >=60 [facility] Comment on above: Performed By: #### C MP, BNP, CMADM #### [facility] [address] [place] [address] Dr. Loyd Parks EGFR-NON AF BRAZILIAN 28 mL/min/1.73m2 Critically low >=60 [facility] Comment on above: Performed By: #### C MP, BNP, CMADM #### [facility] [address] [place] [address] [address] Loyd Parks Globulin (S) [Mass/Vol] 3.8 g/dL Normal [facility] Comment on above: Performed By: #### C MP, BNP, CMADM #### [facility] [address] [place] [address] [address] Loyd Parks Glucose [Mass/Vol] 88 mg/dL Normal 74-106 [facility] Comment on above: Performed By: #### C MP, BNP, CMADM #### [facility] [address] [place] [address] Dr. Loyd Parks Potassium [Moles/Vol] 4.2 mmol/L Normal 3.5-5.1 [facility] Comment on above: Performed By: #### C MP, BNP, CMADM #### [facility] [address] [place] [address] Dr. Loyd Parks Protein [Mass/Vol] 7.1 g/dL Normal 6.4-8.2 [facility] Comment on above: Performed By: #### C MP, BNP, CMADM #### [facility] [address] [place] [address] [address] Loyd Parks Sodium [Moles/Vol] 141 mmol/L Normal 136-145 [facility] Comment on above: Performed By: #### C MP, BNP, CMADM #### [facility] [address] [place] [address] Dr. Loyd Parks Urea nitrogen [Mass/Vol] 36.0 mg/dL Critically high 7.0-18.0 [facility] Comment on above: Performed By: #### C MP, BNP, CMADM #### [facility] [address] [place] [address] [address] Loyd Parks Urea nitrogen/Creatinin e [Mass ratio] 16.0 mg/mg Normal [facility] Comment on above: Performed By: #### C MP, BNP, CMADM #### [facility] [address] [place] [address] Dr. Loyd Parks PROTIMEon 07-27-2022 INR Coag (PPP) [Relative time] 0.95 {INR} Normal [facility] Comment on above: Performed By: #### P T, PTT #### [facility] [address] [place] [address] Dr. Loyd Parks INR GUIDELINES SEE BELOW Normal [facility] Comment on above: Result Comment: MARIE RED INR: 2.0 - 3.0 CONDITIONS NOT LISTED BELOW 2.5 - 3.5 FOR PROSTHETIC HEART VALVE REPLACEMENT 2.5 - 3.5 RECURRENT THROMBOSIS Performed By: #### P T, PTT #### [facility] [address] [place] [address] Dr. Loyd Parks PT Coag (PPP) [Time] 10.1 s Normal 9.0-11.6 [facility] Comment on above: Performed By: #### P T, PTT #### [facility] [address] [place] [address] Dr. Loyd Parks PTTon 07-27-2022 aPTT Coag (Bld) [Time] 27.3 s Normal 22.3-36.2 [facility] Comment on above: Performed By: #### P T, PTT #### [facility] [address] [place] [address] Dr. Loyd Parks SYMPTOMATIC COVID-19 ANTIGEN on 07-27-2022 EUA Statement SEE BELOW Normal [facility] Comment on above: Result Comment: This [...] sooner. Performed By: #### C VDAGS #### [facility] [address] [place] [address] Dr. Loyd Parks SARS-CoV-2 (COVID-19) RNA SAUNDRA+probe Ql (Unsp spec) Negative Normal NEGATIVE [facility] Comment on above: Performed By: #### C VDAGS #### [facility] [address] [place] [address] Dr. Loyd Parks XR CHEST 2 Von [...] ELIUD KAUR Date: 2022-07-26 22:19 Normal [facility] POINT OF CARE GLUCOSEon 03-25 Glucose [Mass/Vol] 102 mg/dL Normal 74-106 [facility] Comment on above: Performed By: #### C MP, BNP, CMADM #### [facility] [address] [place] [address] Dr. Loyd Parks ER URINE PROFILEon 2 Bilirubin Ql (U) Negative Normal NEGATIVE [facility] Comment on above: Performed By: #### E RUR #### [facility] [address] [place] [address] Dr. Loyd Parks Clarity (U) CLEAR Normal CLEAR [facility] Comment on above: Performed By: #### E RUR #### [facility] [address] [place] [address] Dr. Loyd Parks Color (U) LT. YELLOW Normal YELLOW [facility] Comment on above: Performed By: #### E RUR #### [facility] [address] [place] [address] Dr. Loyd CONWAY A micrscopic examination will be performed if indicated. Normal [facility] Comment on above: Performed By: #### E RUR #### [facility] [address] [place] [address] Dr. Loyd Parks Glucose Ql (U) 100 mg/dl Abnormal NEGATIVE [facility] Comment on above: Performed By: #### E RUR #### [facility] [address] [place] [address] Dr. Loyd Parks Hemoglobin Ql (U) Negative Normal NEGATIVE [facility] Comment on above: Performed By: #### E RUR #### [facility] [address] [place] [address] Dr. Loyd Parks Ketones Ql (U) Negative Normal NEGATIVE [facility] Comment on above: Performed By: #### E RUR #### [facility] [address] [place] [address] Dr. Loyd Parks LEUKOCYTES Negative Normal NEGATIVE [facility] Comment on above: Performed By: #### E RUR #### [facility] [address] [place] [address] Dr. Loyd Parks Nitrite Ql (U) Negative Normal NEGATIVE [facility] Comment on above: Performed By: #### E RUR #### [facility] [address] [place] [address] Dr. Loyd Parks pH (U) 5.5 [pH] Normal 5-9 [facility] Comment on above: Performed By: #### E RUR #### [facility] [address] [place] [address] Dr. Loyd Parks SPEC GRAVITY 1.015 Normal 1.005-<=1.025 [facility] Comment on above: Performed By: #### E RUR #### [facility] [address] [place] [address] Dr. Loyd Parks UA PROTEIN Negative Normal NEGATIVE/ TRACE [facility] Comment on above: Performed By: #### E RUR #### [facility] [address] [place] [address] Dr. Loyd Parks UR MICRO IND NOT INDICATED Normal [facility] Comment on above: Performed By: #### E RUR #### [facility] [address] [place] [address] Dr. Loyd Parks Urobilinogen Qn (U) 0.2 {Malcolm'U}/dL Normal 0.2 - 1.0 [facility] Comment on above: Performed By: #### E RUR #### [facility] [address] [place] [address] Dr. Loyd Parks GROUP A STREP CULTUREon 02-21 S. pyogenes Ag Ql (Unsp spec) Culture Observations: NEGATIVE FOR GROUP A STREPTOCOCCUS. Normal [facility] Comment on above: Performed By: #### S SCRN, GRASTCX #### [facility] [address] [place] [address] Dr. Loyd Parks STREPT SCREENon 03-03-2022 STREP SCREEN A Negative Normal NEGATIVE [facility] Comment on above: Performed By: #### S SCRN, GRASTCX #### [facility] [address] [place] [address] Dr. Loyd Parks Covid-19 PCR ([facility])on SARS-CoV-2 (COVID-19) RNA SAUNDRA+probe Ql (Unsp spec) Not detected Normal NOT DETECTED [facility] Comment on above: Result Comment: This test is not yet approved or cleared by the [place] FDA. When there are no FDA-approved or cleared tests available, and other criteria are met, FDA can make tests available under an emergency access mechanism called an Emergency Use Authorization (EUA). The EUA for this test is supported by the [place] of Health and Human Service's (HHS's) declaration [...] By: #### C MP, BNP, CMADM #### [facility] [address] [place] [address] Dr. Loyd Parks POINT OF CARE GLUCOSEon 10-1 Glucose [Mass/Vol] 133 mg/dL Critically high 74-106 [facility] Comment on above: Performed By: #### E RUR #### [facility] [address] [place], [place] [address] Dr. Loyd Parks POINT OF CARE GLUCOSEon 09-0 Glucose [Mass/Vol] 75 mg/dL Normal 74-106 [facility] Comment on above: Performed By: #### E RUR #### [facility] [address] [place] [address] ABD/PELVIS WO CONon [...] SAURABH SINGH Date: 2021-09-03 08:35 Normal [facility] ER URINE PROFILEon 2 Bilirubin Ql (U) Negative Normal NEGATIVE [facility] Comment on above: Performed By: #### E RUR #### [facility] [address] [place] [address] Dr. Loyd Parks Clarity (U) CLEAR Normal CLEAR [facility] Comment on above: Performed By: #### E RUR #### [facility] [address] [place] [address] Dr. Loyd Parks Color (U) LT. YELLOW Normal YELLOW [facility] Comment on above: Performed By: #### E RUR #### [facility] [address] [place] [address] Dr. Loyd CONWAY A micrscopic examination will be performed if indicated. Normal [facility] Comment on above: Performed By: #### E RUR #### [facility] [address] [address] [address] Loyd Parks Glucose Ql (U) >1000 Abnormal NEGATIVE [facility] Comment on above: Performed By: #### E RUR #### [facility] [address] [place] [address] Dr. Loyd Parks Hemoglobin Ql (U) Negative Normal NEGATIVE [facility] Comment on above: Performed By: #### E RUR #### [facility] [address] [place] [address] Dr. Loyd Parks Ketones Ql (U) Negative Normal NEGATIVE [facility] Comment on above: Performed By: #### E RUR #### [facility] [address] [place] [address] Dr. Loyd Parks LEUKOCYTES Negative Normal NEGATIVE [facility] Comment on above: Performed By: #### E RUR #### [facility] [address] [place] [address] Dr. Loyd Parks Nitrite Ql (U) Negative Normal NEGATIVE [facility] Comment on above: Performed By: #### E RUR #### [facility] [address] [place] [address] Dr. Loyd Parks pH (U) 6.0 [pH] Normal 5-9 [facility] Comment on above: Performed By: #### E RUR #### [facility] [address] [place] [address] Dr. Loyd Parks SPEC GRAVITY 1.010 Normal 1.005-<=1.025 [facility] Comment on above: Performed By: #### E RUR #### [facility] [address] [place] [address] Dr. Loyd Parks UA PROTEIN Negative Normal NEGATIVE/ TRACE [facility] Comment on above: Performed By: #### E RUR #### [facility] [address] [place] [address] Dr. Loyd Parks UR MICRO IND NOT INDICATED Normal [facility] Comment on above: Performed By: #### E RUR #### [facility] [address] [place] [address] Dr. Loyd Parks Urobilinogen Qn (U) 0.2 {Malcolm'U}/dL Normal 0.2 - 1.0 [facility] Comment on above: Performed By: #### E RUR #### [facility] [address] [place] [address] Dr. Loyd Parks ALCOHOLon 07-31-2020 Ethanol [Mass/Vol] mg/dL Normal [facility] Comment on above: Result Comment: FOR MEDICAL USE ONLY. . REF VALUES <10 Performed By: #### A LC ####[facility] [place] [address] CBC AND DIFFERENTIALon 07-31 % AUTOMATED IMMATURE GRAN 0.4 % Normal 0.0 - 0.9 [facility] Comment on above: Result Comment: Rylie ture Granulocyte Count (IG) includes promyelocytes, myelocytes and metamyelocytes but does not include bands. Percent differential counts (%) should be interpreted in the context of the absolute cell counts (cells/L). Performed By: #### C BCDF #### [facility] [address] [place] [address] Basophils (Bld) [#/Vol] 0.05 10*3/uL Normal 0.00 - 0.10 [facility] Comment on above: Performed By: #### C BCDF #### [facility] [address] [place] [address] Basophils/100 WBC (Bld) 0.6 % Normal 0.0 - 2.0 [facility] Comment on above: Performed By: #### C BCDF #### [facility] [address] [place] [address] Eosinophils (Bld) [#/Vol] 0.21 10*3/uL Normal 0.00 - 0.40 [facility] Comment on above: Performed By: #### C BCDF #### [facility] [address] [place] [address] Eosinophils/100 WBC (Bld) 2.4 % Normal 0.0 - 6.0 [facility] Comment on above: Performed By: #### C BCDF #### [facility] [address] [place] [address] Erythrocyte distribution width (RBC) [Ratio] 13.2 % Normal 11.5 - 14.5 [facility] Comment on above: Performed By: #### C BCDF #### [facility] [address] [place] [address] Hematocrit (Bld) [Volume fraction] 50.0 % Normal 41.0 - 52.0 [facility] Comment on above: Performed By: #### C BCDF #### [facility] [address] [place] [address] Hemoglobin (Bld) [Mass/Vol] 17.3 g/dL Normal 13.5 - 17.5 [facility] Comment on above: Performed By: #### C BCDF #### [facility] [address] [place] [address] Lymphocytes (Bld) [#/Vol] 1.59 10*3/uL Normal 0.80 - 3.00 [facility] Comment on above: Performed By: #### C BCDF #### [facility] [address] [place] [address] Lymphocytes/100 WBC (Bld) 17.9 % Normal 13.0 - 44.0 [facility] Comment on above: Performed By: #### C BCDF #### [facility] [address] [place] [address] MCHC (RBC) [Mass/Vol] 34.6 g/dL Normal 32.0 - 36.0 [facility] Comment on above: Performed By: #### C BCDF #### [facility] [address] [place] [address] MCV (RBC) [Entitic vol] 89 fL Normal 80 - 100 [facility] Comment on above: Performed By: #### C BCDF #### [facility] [address] [place] [address] Monocytes (Bld) [#/Vol] 0.82 10*3/uL High 0.05 - 0.80 [facility] Comment on above: Performed By: #### C BCDF #### [facility] [address] [place] [address] Monocytes/100 WBC (Bld) 9.2 % Normal 2.0 - 10.0 [facility] Comment on above: Performed By: #### C BCDF #### [facility] [address] [place] [address] Neutrophils (Bld) [#/Vol] 6.18 10*3/uL High 1.60 - 5.50 [facility] Comment on above: Performed By: #### C BCDF #### [facility] [address] [facility] [place] [address] Neutrophils/100 WBC (Bld) 69.5 % Normal 40.0 - 80.0 [facility] Comment on above: Performed By: #### C BCDF #### [facility] [address] [place] [address] Platelets (Bld) [#/Vol] 215 10*3/uL Normal 150 - 450 [facility] Comment on above: Performed By: #### C BCDF #### [facility] [address] [place] [address] RBC 5.59 x10E12/L Normal 4.50 - 5.90 [facility] Comment on above: Performed By: #### C BCDF #### [facility] [address] [place] [address] WBC (Bld) [#/Vol] 8.9 10*3/uL Normal 4.4 - 11.3 [facility] Comment on above: Performed By: #### C BCDF #### [facility] [address] [place] [address] CHEST 1 VIEWon 07-31-2020 CHEST 1 VIEW STUDY: Chest Radiograph; 07/30/2020 10:53 PM INDICATION: Shortness of breath. COMPARISON: None available. ACCESSION NUMBER(S): [id number] ORDERING CLINICIAN: ZAID CUELLAR DO TECHNIQUE: Frontal chest was obtained at 2355 hours. FINDINGS: CARDIOMEDIASTINAL SILHOUETTE: Cardiomediastinal silhouette is normal in size and configuration. LUNGS: Lungs are clear. ABDOMEN: No remarkable upper abdominal findings. BONES: No acute osseous changes. IMPRESSION: No acute pulmonary abnormality. Signed by Rodrick Anna MD Electronically signed by: RODRICK ANNA MD Normal [facility] COMPREHENSIVE PANELon 2020 Albumin [Mass/Vol] 3.7 g/dL Normal 3.4 - 5.0 [facility] Comment on above: Performed By: #### C MP ####[facility] [place] [address] ALP [Catalytic activity/Vol] 80 U/L Normal 33 - 136 [facility] Comment on above: Performed By: #### C MP ####[facility] [place] [address] ALT [Catalytic activity/Vol] 12 U/L Normal 10 - 52 [facility] Comment on above: Result Comment: Jade ents treated with Sulfasalazine may generate falsely decreased results for ALT. Performed By: #### C MP ####[facility] [place] [address] Anion gap [Moles/Vol] 13 mmol/L Normal 10 - 20 [facility] Comment on above: Performed By: #### C MP ####[facility] [place] [address] AST [Catalytic activity/Vol] 12 U/L Normal 9 - 39 [facility] Comment on above: Performed By: #### C MP ####[facility] [place] [address] Bilirubin [Mass/Vol] 0.7 mg/dL Normal 0.0 - 1.2 [facility] Comment on above: Performed By: #### C MP ####[facility] [place] [address] Calcium [Mass/Vol] 9.2 mg/dL Normal 8.6 - 10.3 [facility] Comment on above: Performed By: #### C MP ####[facility] [place] [address] Chloride [Moles/Vol] 101 mmol/L Normal 98 - 107 [facility] Comment on above: Performed By: #### C MP ####[facility] [place] [address] Creatinine [Mass/Vol] 1.36 mg/dL High 0.50 - 1.30 [facility] Comment on above: Performed By: #### C MP ####[facility] [place] [address] GFR- AM. 61 mL/min/1.73m2 Normal >60 [facility] Comment on above: Result Comment: CALC ULATIONS OF ESTIMATED GFR ARE PERFORMED USING THE MDRD STUDY EQUATION FOR THE IDMS-TRACEABLE CREATININE METHODS. CLIN CHEM 2007;53:766-72 Performed By: #### C MP ####[facility] [place] [address] GFR-NON AM. 50 mL/min/1.73m2 Abnormal >60 [facility] Comment on above: Performed By: #### C MP ####[facility] [place] [address] Glucose [Mass/Vol] 390 mg/dL High 74 - 99 [facility] Comment on above: Performed By: #### C MP ####[facility] [place] [address] HCO3 (Bld) [Moles/Vol] 27 mmol/L Normal 21 - 32 [facility] Comment on above: Performed By: #### C MP ####[facility] [place] [address] Potassium [Moles/Vol] 4.1 mmol/L Normal 3.5 - 5.3 [facility] Comment on above: Performed By: #### C MP ####[facility] [place] [address] Protein [Mass/Vol] 6.8 g/dL Normal 6.4 - 8.2 [facility] Comment on above: Performed By: #### C MP ####[facility] [place] [address] Sodium [Moles/Vol] 137 mmol/L Normal 136 - 145 [facility] Comment on above: Performed By: #### C MP ####[facility] [place] [address] Urea nitrogen [Mass/Vol] 27 mg/dL High 6 - 23 [facility] Comment on above: Performed By: #### C MP ####[facility] [place] [address] CT HEAD WO CONTRASTon 2020 CT HEAD WO CONTRAST STUDY: CT Head without IV Contrast; 07/30/2020, 11:52 PM. INDICATION: Confusion, disorientation. COMPARISON: None Available. ACCESSION NUMBER(S): [id number] ORDERING CLINICIAN: ZAID CUELLAR DO TECHNIQUE: Noncontrast [...] Electronically signed by: RODRICK ANNA MD Normal [facility] MAGNESIUMon 07-31-2020 Magnesium [Mass/Vol] 2.04 mg/dL Normal 1.60 - 2.40 [facility] Comment on above: Performed By: #### M G #### [facility] [address] [place] [address] PT/INRon 07-31-2020 PT Coag (PPP) [Time] 12.0 s Normal 10.1 - 13.3 [facility] Comment on above: Performed By: #### P TINR #### [facility] [address] [place] [address] PT, INR 1.0 Normal 0.9 - 1.1 [facility] Comment on above: Performed By: #### P TINR #### [facility] [address] [place] [address] Provider Note - ED v2on 07-22 Provider Note - ED v2 Provider Note - ED v2: Chart Review: ED NOTES ED NOTES: History: This is an 80-year-old male presenting from the [facility] by [facility] for chief complaint of a medical evaluation. Patient left his home in [place] 3 days ago because he got into an argument with his and he has not been back since. He was finally located at a [facility] down the street when family called. 911 [...] From Triage - ED 30-Jul-2020 23:[address] [facility] Risk Screen - Adult Emergenc yon [...] instruction; written material Cultural Considerationsnone Developmental Considerationsnone Voodoo Considerationsnone Learning Assessment (Other Learner): Learning Assessment (Other Learner): Other learner availableno Pressure Injury/TB/Substance: Pressure Injury: Do you have a coughno Substance Use Current or Former Historynever: Cigarette/Tobacco, e-Cigarette/Vaping, Alcohol, Street Drugs Admission Risk Screen: Significant IndicatorsComplete CAGE: CAGE: Is this an injured patient at a Tra[place] Center ([facility]/[place]/[facility]/[place]): no Electronic Signatures: Elizabeth Ivan (RN) (Signed 30-Jul-2020 23:24) Authored: Preferred Language, Advanced Directives, Family Violence Adult, Learning Assessment (Patient), Learning Assessment (Other Learner), Pressure Injury/TB/Substance, Pressure Injury, CAGE Last Updated: 30-Jul-2020 23:24 by Elizabeth Ivan (MIGUEL) Normal [facility] TROPONIN Ion 07-31-2020 Troponin I.cardiac [Mass/Vol] ng/mL Normal 0.00 - 0.03 [facility] Comment on above: Result Comment: LESS [...] is performed using different testing methodology at [facility] than at other [facility] hospitals. Direct result comparisons should only be made within the same method. Performed By: #### T ROP2 #### [facility] [address] [place] [address] Triage - EDon 07-31-2020 Triage - ED [...] Agency: City Agency Name: Monica Accompanied By: environmental tech Language: Spoken Language Preferred: Armenian Reading Language [...] obeys commands Best Verbal Response: (V5) oriented [place] Score: 15 Allergies: yes Patient has homicidal [...] 30-Jul-2020 23:23 by Elizabeth Ivan (RN) Normal [facility] UA MICROSCOPICon 07-31-2020 RBC 1 /HPF Normal 0-5 [facility] Comment on above: Performed By: #### U AMIC #### [facility] [address] [place] [address] SQUAMOUS EPITH. CELLS <[address] [facility] Comment on above: Performed By: #### U AMIC #### [facility] [address] [place] [address] WBC 22 /HPF Abnormal 0-5 [facility] Comment on above: Performed By: #### U AMIC #### [facility] [id number] [place] [address] URINALYSISon 07-31-2020 Appearance (U) CLEAR Normal CLEAR [facility] Comment on above: Performed By: #### U A #### [facility] [address] [place] [address] Bilirubin Ql (U) Negative Normal NEGATIVE [facility] Comment on above: Performed By: #### U A #### [facility] [address] [place] [address] Color (U) STRAW Normal STRAW,YELLOW [facility] Comment on above: Performed By: #### U A #### [facility] [address] [place] [address] Glucose Ql (U) >=500(3+) Abnormal NEGATIVE [facility] Comment on above: Performed By: #### U A #### [facility] [address] [place] [address] Hemoglobin Ql (U) SMALL(1+) Abnormal NEGATIVE [facility] Comment on above: Performed By: #### U A #### [facility] [address] [place] [address] Ketones Ql (U) Negative Normal NEGATIVE [facility] Comment on above: Performed By: #### U A #### [facility] [address] [facility] [place] [address] Leukocyte esterase Test strip Ql (U) TRACE Abnormal NEGATIVE [facility] Comment on above: Performed By: #### U A #### [facility] [address] [facility] [place] [address] Nitrite Ql (U) Negative Normal NEGATIVE [facility] Comment on above: Performed By: #### U A #### [facility] [address] [facility] [place] [address] pH (U) 6.0 [pH] Normal 5.0 - 8.0 [facility] Comment on above: Performed By: #### U A #### [facility] [address] [facility] [place] [address] Protein Ql (U) 100(2+) Abnormal NEGATIVE [facility] Comment on above: Performed By: #### U A #### [facility] [address] [place] [address] Specific gravity (U) [Rel density] 1.025 Normal 1.005 - 1.035 [facility] Comment on above: Performed By: #### U A #### [facility] [address] [facility] [place] [address] Urobilinogen (U) [Mass/Vol] mg/dL Normal 0.0 - 1.9 [facility] Comment on above: Performed By: #### U A #### [facility] [address] [place] [address] Vital Signs Date Time Vital Sign Value Performing Clinician Facility 01-29-2024 13:02-0500 Body height 172.7 cm Perla Aguila [employer] Work Phone: [facility] 01-29-2024 13:02-0500 Body mass index (BMI) [Ratio] 37.71 kg/m2 Perla Aguila [employer] Work Phone: [facility] 01-29-2024 13:02-0500 Body temperature 97.81 [degF] Perla Aguila [employer]ER Work Phone: [facility] 01-29-2024 13:02-0500 Body weight 112.49 kg Perla Aguila [employer] Work Phone: [facility] 01-29-2024 13:02-0500 Diastolic blood pressure 70 mm[Hg] Perla Aguila [employer] Work Phone: [facility] 01-29-2024 13:02-0500 Heart rate 74 /min Perla Aguila [employer] Work Phone: [facility] 01-29-2024 13:02-0500 SaO2% (BldA) [Mass fraction] 95 % Perla Aguila [employer] Work Phone: [facility] 01-29-2024 13:02-0500 Systolic blood pressure 128 mm[Hg] Perla Aguila [employer] Work Phone: [facility] 01-08-2024 14:17-0400 Body height 172.7 cm Darcy Sandoval [employer] Work Phone: [facility] 01-08-2024 14:17-0400 Body mass index (BMI) [Ratio] 37.56 kg/m2 Darcy Sandoval [employer] Work Phone: [facility] 01-08-2024 14:17-0400 Body weight 112.04 kg Darcy Sandoval [employer] Work Phone: [facility] 01-08-2024 14:17-0400 Diastolic blood pressure 84 mm[Hg] Darcy Sandoval [employer] Work Phone: [facility] 01-08-2024 14:17-0400 Heart rate 92 /min Darcy Sandoval [employer] Work Phone: [facility] 01-08-2024 14:17-0400 SaO2% (BldA) [Mass fraction] 98 % Darcy Sandoval CARBIDER Work Phone: [facility] 01-08-2024 14:17-0400 Systolic blood pressure 124 mm[Hg] Darcy Sandoval CARBIDER Work Phone: [facility] 12-25-2023 14:28-0400 Body height 172.7 cm Darcy Ekalaka CARBIDER Work Phone: [facility] 12-25-2023 14:28-0400 Body mass index (BMI) [Ratio] 38.32 kg/m2 Darcy Lori CARBIDER Work Phone: [facility] 12-25-2023 14:28-0400 Body weight 114.31 kg Darcy Ekalaka CARBIDER Work Phone: [facility] 12-25-2023 14:28-0400 Diastolic blood pressure 68 mm[Hg] Darcy Sandoval CARBIDER Work Phone: [facility] 12-25-2023 14:28-0400 Heart rate 88 /min Darcylenny Sandoval CARBIDER Work Phone: [facility] 12-25-2023 14:28-0400 SaO2% (BldA) [Mass fraction] 97 % Darcy Lori CARBIDER Work Phone: [facility] 12-25-2023 14:28-0400 Systolic blood pressure 128 mm[Hg] Darcy Sandoval CARBIDER Work Phone: [facility] 09-16-2022 14:48-0400 Blood Pressure Location Umer VALENCIA [facility] 09-16-2022 14:48-0400 Diastolic blood pressure 74 mm[Hg] Umer VALENCIA [facility] 09-16-2022 14:48-0400 Heart rate 70 /min Umer VALENCIA [facility] 09-16-2022 14:48-0400 Respiratory rate 16 /min Umer VALENCIA [facility] 09-16-2022 14:48-0400 Systolic blood pressure 130 mm[Hg] Umer VALENCIA [facility] 04-26-2022 11:04-0500 Blood Pressure Location Umer VALENCIA [facility] 04-26-2022 11:04-0500 Diastolic blood pressure 78 mm[Hg] Umer VALENCIA [facility] 04-26-2022 11:04-0500 Heart rate 62 /min Umer VALENCIA [facility] 04-26-2022 11:04-0500 Respiratory rate 16 /min Umer VALENCIA [facility] 04-26-2022 11:04-0500 Systolic blood pressure 134 mm[Hg] Umer VALENCIA [facility] 12-03-2021 13:08-0400 Blood Pressure Location Umer VALENCIA [facility] 12-03-2021 13:08-0400 Diastolic blood pressure 70 mm[Hg] Umer VALENCIA [facility] 12-03-2021 13:08-0400 Heart rate 65 /min Umer VALENCIA [facility] 12-03-2021 13:08-0400 Respiratory rate 16 /min Umer VALENCIA [facility] 12-03-2021 13:08-0400 Systolic blood pressure 109 mm[Hg] Umer VALENCIA [facility] 09-03-2021 13:39-0400 Blood Pressure Location Umer VALENCIA [facility] 09-03-2021 13:39-0400 Diastolic blood pressure 67 mm[Hg] Umer VALENCIA [facility] 09-03-2021 13:39-0400 Heart rate 68 /min Umer VALENCIA [facility] 09-03-2021 13:39-0400 Respiratory rate 16 /min Umer VALENCIA [facility] 09-03-2021 13:39-0400 Systolic blood pressure 102 mm[Hg] Umer VALENCIA [facility] Encounters Encounter Date Encounter Type Care Provider Facility Start: 02-10-2024 ambulatory Marianela X Orzech Facilit y:EU Jillian Start: 01-29-2024 End: 01-29-2024 Bamboo flowsheet Perla Aguila CARBIDER Work Phone: [facility] Start: 01-29-2024 End: 01-29-2024 Bamaudreyo flowsheet Perla Aguila CARBIDER Work Phone: [facility] Start: 01-29-2024 End: 01-29-2024 ambulatory PERLA AGUILA Not Available Start: 01-29-2024 End: 01-29-2024 Office outpatient visit 25 minutes Perla Aguila CARBIDER Work Phone: [facility] Comment on [...] 01-08-2024 End: 01-08-2024 Bamboo flowsheet Darcy Sandoval CARBIDER Work Phone: [facility] Start: 01-08-2024 End: 01-08-2024 Bamboo flowsheet Darcy Sandoval CARBIDER Work Phone: [facility] Start: 01-08-2024 End: 01-08-2024 Office outpatient visit 25 minutes Darcy Sandoval CARBIDER Work Phone: [facility] Comment on above: Edema, unspecified t ype (Primary Dx); Altered mental status, unspecified altered mental status type Start: 12-25-2023 End: 12-25-2023 Office outpatient visit 25 minutes Darcy Sandoval CARBIDER Work Phone: [facility] Comment on above: Localized edema (Leslee jazmine Dx); Acute cough Start: 12-25-2023 End: 12-25-2023 ambulatory DARCY SANDOVAL Not Available Start: 12-25-2023 End: 12-25-2023 Bamboo flowsheet Darcy Sandoval CARBIDER Work Phone: [facility] Start: 12-25-2023 End: 12-25-2023 Bamboo flowsheet Darcy Sandoval CARBIDER Work Phone: [facility] Start: 12-05-2023 End: 12-05-2023 ambulatory DARCY SANDOVAL [facility] Start: 11-30-2023 End: 11-30-2023 ambulatory RENE ANTHONY [facility] Start: 11-28-2023 End: 11-28-2023 [facility] department [facility] Start: 11-21-2023 Evaluation and manag ement of inpatient [facility] Start: 11-18-2023 Evaluation and manag ement of inpatient [facility] Start: 11-17-2023 Evaluation and manag ement of inpatient ART MCKOY [facility] Start: 11-15-2023 Evaluation and manag ement of inpatient GIL[facility] Start: 11-15-2023 Evaluation and manag ement of inpatient [facility] Start: 11-15-2023 Evaluation and manag ement of inpatient ANUEL LO [facility] Start: 11-15-2023 Evaluation and manag ement of inpatient [facility] Start: 11-15-2023 End: 11-15-2023 ambulatory UNKNOWN PROVIDER Facility:[facility] Start: 11-15-2023 End: 11-22-2023 Evaluation and management of inpatient CHAKA [facility] Start: 11-13-2023 End: 11-13-2023 ambulatory DARCY SANDOVAL Not Available Start: 11-11-2023 End: 11-11-2023 ambulatory Marianela X Orzech Facility:[facility] Start: 11-11-2023 End: 11-11-2023 Patient encounter procedure Marianela X Orzech [facility] Start: 10-23-2023 End: 10-23-2023 ambulatory DARCY SANDOVAL Not Available Start: 10-14-2023 End: 10-14-2023 ambulatory Marianela X Orzech [facility] Start: 10-14-2023 End: 10-14-2023 Patient encounter procedure Marianela X Orzech [facility] [place] Start: 10-09-2023 End: 10-09-2023 ambulatory TOMMY GABRIEL Not Available Start: 08-01-2023 End: 08-01-2023 ambulatory JUAN PABLO ALANIZ Not Available Start: 06-19-2023 End: 06-19-2023 ambulatory JUAN PABLO ALANIZ Not Available Start: 05-13-2023 End: 05-13-2023 ambulatory CAIT DUNHAM Facility:[facility] Start: 05-13-2023 End: 05-13-2023 Patient encounter procedure CAIT DUNHAM [facility] Start: 04-23-2023 End: 04-23-2023 ambulatory JUAN PABLO ALANIZ Not Available Start: 03-26-2023 End: 03-26-2023 ambulatory JUAN PABLO ALANIZ Not Available Start: 02-27-2023 End: 02-27-2023 ambulatory DARCY SANDOVAL Not Available Start: 12-18-2022 End: 12-18-2022 ambulatory CAIT DUNHAM Facility:[facility] Start: 09-16-2022 End: 09-16-2022 Patient encounter procedure Umer VALENCIA [facility] Start: 07-26-2022 End: 07-27-[address] JUAN PABLO ALANIZ Facility:[facility] Start: 06-26-2022 End: 06-27-[address] JUAN PABLO ALANIZ Facility:[facility] Start: 05-23-2022 End: 05-24-[address] JUAN PABLO ALANIZ Facility:[facility] Start: 04-26-2022 End: 04-26-2022 Patient encounter procedure Umer VALENCIA [facility] Start: 04-22-2022 End: 04-23-[address] JUAN PABLO ALANIZ Facility:[facility] Start: 04-16-2022 End: 04-16-[address] JUAN PABLO ALANIZ Facility:[facility] Start: 04-08-2022 End: 04-08-2022 Patient encounter procedure Umer VALENCIA [facility] Start: 04-04-2022 ambulatory SHELLIE Sousa Facility:[facility] Start: 03-08-2022 End: 03-08-[address] JUAN PABLO ALANIZ Facility:[facility] Start: 03-04-2022 Encounter for preprocedural cardiovascular examination DR VINH HOLCOMB . [facility] Start: 03-04-2022 Encounter for preprocedural laboratory examination DR VINH HOLCOMB . [facility] Start: 03-03-2022 End: 03-03-[address] JUAN PABLO ALANIZ Facility:[facility] Start: 03-02-2022 Encounter for preprocedural cardiovascular examination DR VINH HOLCOMB . [facility] Start: 02-26-[address] VINH HOLCOMB [...] encounter procedure Umer VALENCIA [facility] Start: 11-29-2021 End: 11-30-2021 ambulatory [...] procedure Umer Antoine VALENCIA [facility] Start: 09-03-2021 End: 09-03-[address] JUAN PABLO ALANIZ Facility:[facility] Procedures Date Procedure Procedure Detail Performing Clinician Start: 01-22-2024 BLOOD CULTURE 2 Generic External Data Provider Start: 01-22-2024 BLOOD CULTURE 1 Generic External Data Provider Esophagogastroduodenoscopy Goldie VALENCIA Plan of Treatment Date Care Activity Detail Author Start: 01-07-2025 Urine screening for protein Diabetes: Urine Protein Screening [facility] Start: 12-04-2024 Urine screening for protein Diabetes: Urine Protein Screening [facility] Start: 03-04-2024 End: 03-04-2024 Patient encounter procedure 03/04/2024 3:50 PM EST Procedure Visit [facility] [address] [place] [id number] Tommy Gabriel DPM [address] [facility] [address] [place] [address] [facility] Start: 02-17-2024 Hemoglobin A1c [...] Acute cough Expected: 01/29/2024 (Approximate), Expires: 01/28/2025 [facility] Comment on above: Expected: 01/29/2024 [...] status type Expected: 01/08/2024 (Approximate), Expires: 01/07/2025 [facility] Comment on above: Expected: 01/08/2024 (Approximate), Expires: 01/07/2025 Start: 01-08-2024 End: 01-08-2024 Patient encounter procedure 01/08/2024 1:00 PM EDT Office Visit [facility] [address] [place] [address] Darcy Sandoval NP [address] [place] [address] [facility] Start: 12-25-2023 End: 12-25-2023 Patient encounter procedure 12/25/2023 2:30 PM EDT Office Visit [facility] [address] [place] [address] Darcy Sandoval NP [address] [place] [address] Arrived [facility] Comment on above: Arrived Start: 11-23-2023 Influenza vaccination Influenza Vacc ine (#1) [facility] Start: 08-22-2022 ambulatory Ambulatory Facility:[facility] Start: 08-06-2019 Pneumococcal Vaccine : 65+ Years (2 of 2 - PCV) Pneumococcal Vaccine: 65+ Years (2 of 2 - PCV) [facility] Start: 1950 Glaucoma screening Diabetes: R etinopathy Screening [facility] BLOOD CULTURE 1 BLOOD CULTURE 1 Lab Routine 01/22/2024 3:15 PM EDT [facility] BLOOD CULTURE 2 BLOOD CULTURE 2 Lab Routine 01/22/2024 3:19 PM EDT [facility] Immunizations Immunization Date Immunization Notes Care Provider Walt peck 01-13-2023 influenza virus vacc ine, unspecified formulation Marianela Ingram [facility] 01-13-2023 Influenza, High-dose Seasonal, Quadrivalent, Preservative Free Darcy Sandoval CARBIDER Work Phone: [facility] 02-22-2022 influenza virus vacc ine, unspecified formulation Umer VALENCIA [facility] 02-22-2022 influenza, high dose seasonal, preservative-free Darcy Lori CARBIDER Work Phone: [facility] 12-21-2020 SARS-CoV-2 (COVID-19 ) mRNA BNT-162b2 vax Umer Shuame [facility] 11-30-2020 SARS-CoV-2 (COVID-19 ) mRNA BNT-162b2 vax Umer VALENCIA [facility] 01-24-2020 influenza virus vacc ine, unspecified formulation Umer VALENCIA [facility] 01-24-2020 influenza, high dose seasonal, preservative-free Darcy Ekalaka CARBIDER Work Phone: [facility] 03-04-2019 influenza virus vacc ine, unspecified formulation Umer VALENCIA [facility] 03-04-2019 influenza, high dose seasonal, preservative-free Darcy Lori CARBIDER Work Phone: [facility] 08-05-2018 pneumococcal polysaccharide vaccine, 23 valent Umer VALENCIA [facility] 12-18-2016 influenza virus vacc ine, unspecified formulation Umer VALENCIA [facility] 12-18-2016 influenza, high dose seasonal, preservative-free Darcy Lori CARBIDER Work Phone: [facility] 12-06-2015 influenza virus vacc ine, unspecified formulation Umer VALENCIA [facility] 12-06-2015 influenza, high dose seasonal, preservative-free Darcy Ekalaka CARBIDER Work Phone: [facility] 12-21-2014 influenza virus vacc ine, unspecified formulation Umer VALENCIA [facility] 12-21-2014 influenza, high dose seasonal, preservative-free Darcy Lori CARBIDER Work Phone: [facility] Payers Date Payer Category Payer Medicare [facility] MEDICARE ADVANTAGE [place] MEDICARE ADVANTAGE [id number] 2021-Present [address] [place] [id number] 2021 Medicare (Managed Care) [facility] [id number] 1959 Unknown [id number] 1959 Unknown [id number] 1938 Unknown [id number] 2.16.840.1.494439.3.579.2 .593 1938 Unknown [id number] 2.16.840.1.765072.3.579.2 .593 1938 Unknown [id number] 2.16.840.1.016240.3.579.2 .593 1938 Unknown [id number] 2.16.840.1.670555.3.579.2 .593 1938 Unknown [id number] 2.16.840.1.998431.3.579.2 .593 1938 Unknown [id number] 2.16.840.1.716058.3.579.2 .593 1938 Unknown [id number] 2.16.840.1.643654.3.579.2 .593 1938 Unknown [id number] 2.16.840.1.680583.3.579.2 .593 1938 Unknown [id number] 2.16.840.1.601805.3.579.2 .593 1938 Unknown [id number] 2.16.840.1.431062.3.579.2 .593 1938 Unknown [id number] 2.16.840.1.219852.3.579.2 .593 1938 Unknown [id number] 2.16.840.1.453520.3.579.2 .593 1938 Unknown [id number] 2.16.840.1.177605.3.579.2 .593 1938 Unknown [id number] 2.16.840.1.732070.3.579.2 .593 1938 Unknown [id number] 2.16.840.1.614272.3.579.2 .593 1938 Unknown [id number] 2.16.840.1.084562.3.579.2 .593 1938 Unknown [id number] 2.16.840.1.920929.3.579.2 .593 1938 Unknown [id number] 2.16.840.1.412722.3.579.2 .593 1938 Unknown [id number] 2.16.840.1.218150.3.579.2 .593 1938 Unknown [id number] 2.16.840.1.611716.3.579.2 .593 1938 Unknown [id number] 2.16.840.1.278773.3.579.2 .593 1938 Unknown [id number] 2.16.840.1.180138.3.579.2 .593 1938 Unknown [id number] 2.16.840.1.158786.3.579.2 .593 1938 Unknown [id number] 2.16.840.1.010098.3.579.2 .593 1938 Unknown [id number] 2.16.840.1.921824.3.579.2 .727 1938 Unknown [id number] 2.16.840.1.392469.3.579.2 .727 1938 Unknown [id number] 2.16.840.1.056885.3.579.2 .727 1938 Unknown [id number] 2.16.840.1.682278.3.579.2 .727 1938 Unknown [id number] 2.16.840.1.039612.3.579.2 .727 1938 Unknown [id number] 2.16.840.1.235313.3.579.2 .732 1938 Unknown [id number] 2.16.840.1.608209.3.579.2 .173 1938 Unknown [id number] 2.16.840.1.823429.3.579.2 .1259 1938 Unknown [id number] 2.16.840.1.403079.3.579.2 .1259 1938 Unknown [id number] 2.16.840.1.449908.3.579.2 .1259 1938 Unknown [id number] 2.16.840.1.590916.3.579.2 .125 1938 Unknown [id number] 2.16.840.1.530783.3.579.2 .1259 1938 Unknown [id number] 2.16.840.1.918355.3.579.2 .1259 1938 Unknown [id number] 2.16.840.1.972840.3.579.2 .1259 1938 Unknown [id number] 2.16.840.1.175274.3.579.2 .1259 1938 Unknown [id number] 2.16.840.1.994876.3.579.2 .1259 1938 Unknown [id number] 2.16.840.1.291236.3.579.2 .1259 1938 Unknown [id number] 2.16.840.1.185596.3.579.2 .1259 Social History Date Type Detail Facility Start: 09-03-2021 Tobacco smoking status Ex-smoker (fi nding) [facility] Start: 11-01-2022 End: 12-11-2023 Sex Assigned At Male [facility] Start: 04-26-2022 End: 11-14-2022 Tobacco smoking status Never smoked tobacco (finding) [facility] Tobacco smoking status Never [facility] Start: 11-14-2022 Tobacco use and [...] 11-11-2023 Functional Status N/A [facility] 09-16-2022 Functional Status N/A [facility] 04-26-2022 Functional Status N/A [facility] 12-03-2021 Functional Status N/A [facility] 09-03-2021 Functional Status N/A [facility] Clinical Notes 09-03-2021 to 01-29-2024 Fe Rojo LPN - 01/29/2024 1:00 PM ESTPatient Diane Sandoval NP - 01/08/2024 2:00 PM Mary Ellen Sandoval NP - 12/25/2023 2:30 PM EDT Note Date & Type Note Facility 01-29-2024 History of Present illness Narrative HPI Follow-up Additional comments: [facility] observation: admitted 01/22/24 dx: syncope,hypotension,dehydration discharged home 01/23/24 no med changes made Last edited by Fe Rojo LPN on 01/29/2024 1:07 PM. Subjective Patient ID: Nat Moore is a 83 y.o. male who presents for Follow-up ([facility] observation: admitted 01/22/24 dx: syncope,hypotension,dehydration discharged [...] Past Medical History: Diagnosis Date Diabetes mellitus (CMS/[facility]) Diverticulosis History of being hospitalized 10/07/2023 Acute [...] Melanie Boyle NP documented in this encounter [facility] 01-29-2024 Instructions Melanie Boyle NP - 01/29/2024 1:00 PM EST Start azithromycin 500 mg daily x 5 days for sinus infection. Okay to take Coricidin HBP over the counter for cough/congestion symptoms Follow up to be determined based on lab results. 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 documented in this encounter [facility] 12-25-2023 History of Present illness Narrative [...] follow-ups on file. documented in this encounter [facility] 11-22-2023 Note Hospital Medicine Discharge Summary [...] initially admitted to the hospitalist service from [place] due to recurrent episodes of syncope secondary [...] his presenting complaints. During his stay in [place] ED he suddenly developed bradycardia prolonged sinus pause up to 18 seconds and became unresponsive. Code was activated and at the beginning of CPR he had regained his consciousness. He had another episode of sinus pause of about 12 seconds prior to transfer, however did not lose his consciousness at this time. On arrival to [facility] blood pressure was 158/72 mmHg, pulse rate 78 bpm, regular, SpO2 100% on room air, respiratory rate 20/min, temperature 97.2. 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 CT of the abdomen with contrast done at [place] ED showed nonobstructive bowel gas pattern with [...] significantly. Daily evaluated the patient on 11/21/2023. [facility] slip was removed and they deemed patient [...] cardiology, ICU, psychiatry Dear Dr. Corbin MD, [place] is advised to follow up with you within 1-2 weeks. Follow-up with: primary care, electrophysiology Scheduled appointments: Future Appointments Date Time Provider Department Center 12/02/2023 2:20 PM Liu Henning MD [facility] Your medication list START taking these medications Instructions Last Dose Given Next Dose Due amLODIPine 10 mg tablet Commonly known as: Norvasc Start taking on: November 23, 2023 Take 1 tablet (10 mg) by mouth in the morning. Do not start bef (more content not included)... [facility] 11-22-2023 Note Physical Therapy Name: Nat Moore Date of : 1940 Today's Date: 11/22/23 Pt is unable to be seen for therapy at this time secondary to pt to discharge @ 2:00 PM today. Check No Charge Time attempted: 1405 [facility] 11-22-2023 Note Pt originally set fo r 9am BLS transport to [facility] but per MD we will push back to 2pm transport due to high blood pressures. UPDATE 1:15PM- Per MD pt can still discharge today. Transport set for 2pm via [facility]. Assembled transfer packet and placed by chart. Sent final AVS and discharge orders via [employer]. Notified RN and pt's is aware of transport time. [facility] 11-21-2023 Note Attestation signed by Juan [...] is for the patient to go to [place] at [facility]. Discussed with the family that our strong [...] with Dr. Liz. Melva Recinos MD PGY2 [facility] 11-21-2023 Note Hospital Medicine Daily Progress Note - 11/21/2023 2:13 PM; Room: [address] [place] [address] Admission: 11/15/2023 2:42 PM; Length of stay: 6 days THE HOSPITALIST TEAM PREFERS TO USE [employer] CHAT FOR COMMUNICATION 7AM-7PM. IF I DO NOT RESPOND WITHIN 15 MINUTES, PLEASE PAGE ME/CALL THROUGH THE CUFFER. 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 [facility] slip removed. No need for psych admission. [...] CALCIUM mg/dL 8. (more content not included)... [facility] 11-21-2023 Note Physical Therapy Physical Therapy [...] a.m. Upon entry, pt in bed. This MANAGER RETIREMENT introduces herself and intention for session. Per [...] state President. Did state he was at [facility] .) Following Commands: Follows one step commands [...] 2 is given. Gait belt is donned, NUTRITION MANAGER is given on the right side [...] to advance BLEs to EOB but uses MANAGER RETIREMENT's hand with his right hand to assist in raising upper body from bed. Bed Mobility 2 Bed Mobility From 2: Scooting Bed Mobility Type 2: To Bed Mobility to 2: (EOB in sitting) Level of Assistance 2: Minimum assistance Bed Mobility Comments 2: Pt uses MANAGER RETIREMENT's hand with his right hand to assist in scooting hips to EOB Transfers Transfer: Yes Transfer 1 Transfer From 1: Sit Transfer Type 1: To and from Transfer to 1: Stand Transfer Device 1: none (MANAGER RETIREMENT and aide on either side of pt) Transfer Level of Assistance 1: Minimum assistance, x2 Trials/Comments 1: Pt. instructed to (more content not included)... [facility] 11-21-2023 Note Attestation signed by Juan [...] Patient Name: Nat Moore MRN / CSN: [id number] Date of / Age: 2 1940 / [...] mild cognitive impairment originally presenting to the [facility] Emergency Room on 11/15/2023 for evaluation of recurrent episodes of syncope secondary to spontaneous prolonged sinus pause. The patient was transferred via air ambulance from the [facility]. 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 The patient reports being to his , Donna, and having 4 children. He reports he came from [place] where he lives, but was not able to describe why he came to hospital or where he is now. 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 Reported Behavior: Combative and agitated PRN [...] injection PRN 8/ (more content not included)... [facility] 11-20-2023 Note 11/20/23 1730 Referral Data [...] Support Systems Spouse/significant other Type of Residence assisted facility Will patient need Precert for Post Acute needs? Yes Patient's goal for discharge would like the facility in [place] for rehab 1. [facility] 2. [place] [facility] 3. (if not accepted in [place]) she is ok with [facility]. Does the patient need discharge transport arranged? Yes SW called patient to discuss consult for SNF placement for rehab. Patient is currently confused and not able to answer questions. SW discussed network provider list. would like provider in [place] with [facility] [place] as 1st choice. She would [facility] [facility] as 2nd and she is ok if neither can accept for [facility] as 3rd choice. Referrals made as requested. Precert will be needed. NATALYA following. [facility] 11-20-2023 Note Attestation signed by William [...] initially admitted to the hospitalist service from [place] due to recurrent episodes of syncope secondary [...] his presenting complaints. During his stay in [place] ED he suddenly developed bradycardia prolonged sinus [...] of the abdomen with contrast done at [place] ED showed nonobstructive bowel gas pattern with [...] no focal deficit (more content not included)... [facility] 11-19-2023 Note Speech Finisher Plate ology Speech/Language Pathology Clinical Swallow Assessment Rx: [...] calcifications who presented via air ambulance from [facility] due to recurrent episodes of syncope secondary to spontaneous prolonged sinus pause. He had initially presented for worsening midsternal chest pain lower back pain located in his mid chest aching in nature, 6 out of 10 on intensity scale, nonradiating associated with SOB. During his stay at [place] he developed bradycardia prolonged sinus pause up [...] (in puree) Recommendations Duration of Treatment: 15 [facility] 11-19-2023 Note Attestation signed by William [...] y.o. - 1940 [facility] - [id number] Date of Admission - 11/15/2023 2:42 PM HPI/Hospital Course Nat Moore is a an 83-year-old gentleman with PMH significant for type 2 diabetes mellitus, essential hypertension, hyperlipidemia, CKD stage IIIa, bilateral lower extremity edema on diuretic therapy, osteoarthritis, depression and mild cognitive impairment was initially admitted to the hospitalist service from [place] due to recurrent episodes of syncope secondary [...] his presenting complaints. During his stay in [place] ED he suddenly developed bradycardia prolonged sinus [...] of the abdomen with contrast done at [place] ED showed nonobstructive bowel gas pattern with [...] Results CBC: Result (more content not included)... [facility] 11-19-2023 Note Attestation signed by Nora [...] calcifications who presented via air ambulance from [facility] due to recurrent episodes of syncope secondary to spontaneous prolonged sinus pause. He had initially presented for worsening midsternal chest pain lower back pain located in his mid chest aching in nature, 6 out of 10 on intensity scale, nonradiating associated with SOB. During his stay at [place] he developed bradycardia prolonged sinus pause up [...] NAD. Resting comfortably. Still in restraints. S/p [employer] DC-PPM yesterday, tolerated well. OBJECTIVE Objective [...] , , Once (more content not included)... [facility] 11-19-2023 Note 11/19/23 1125 Admission Assessment [...] Interested Does the patient have a case reviewer assigned to them through their insurance? No Living Arrangement (Current/Prior to Hospitalization) Private residence (with ) Does the patient have history of HHC or SNF? No Assistive Device Cane Patient's goal for discharge likely snf Was patient reminded that goal for discharge is 11am? No Does the patient have transportation at discharge? No Type of Residence assisted facility Is PT/OT appropriate? Yes Is PT/OT ordered? Yes Is SW consult appropriate? Yes Is SW consult ordered? Yes Do you understand the benefits of MyChart? No Were you able to send link and activate MyChart? No [facility] 11-19-2023 Note Consult rec'd for SN F. PT/OT recommend SNF. No family at bedside at this time. SW to try again later. [facility] 11-19-2023 Note Physical Therapy Physical Therapy [...] Level of Function Prior Function Level of [place]: Independent with ADLs and functional transfers, Needs [...] patient with difficul (more content not included)... [facility] 11-19-2023 Note Occupational Therapy Occupational Therapy Evaluation Patient Name: Nat Moore : 1940 Today's Date: 11/19/2023 Time In: 941 Time Out: 1005 admitted to the hospitalist service from [place] due to recurrent episodes of syncope secondary [...] directions Memory: Decreased short term memory, Decreased mcfp memory, Decreased recall of precautions, Decreased recall of biographical information, Decreased recall of recent events Communication: (labored , dysarthic) General Assessment General Assessment Hearing: ([place], hearing aids not observed but has them per nsg) Hand Dominance: Right Home Living Home Living Type of Home: (patient unable to report consistantly) Prior Level of Function Prior Function Level of [place]: (reports indep and drives) Prior Functional Mobility: [...] until discharge & PRN OT Discharge Recommendations: assisted facility placement OT - Discharge Recommendations Placed: Yes OT Goals Multi-Disciplinary Problems (from Occupational Therapy) Active Problems Problem: Balance Start Date: 11/19/23 Goal Start Date Expected End Date End Date LTG - Patient will maintain stand balance to allow for safe mobility 11/19/23 12/17/23 -- Problem: Bathing Start Date: 11/19/23 Goal Start Date Expected End Date End Date LTG (more content not included)... [facility] 11-18-2023 Note Attestation signed by William [...] y.o. - 1940 [facility] # - [id number] Date of Admission - 11/15/2023 2:42 PM HPI/Hospital Course Nat Moore is a an 83-year-old gentleman with PMH significant for type 2 diabetes mellitus, essential hypertension, hyperlipidemia, CKD stage IIIa, bilateral lower extremity edema on diuretic therapy, osteoarthritis, depression and mild cognitive impairment was initially admitted to the hospitalist service from [place] due to recurrent episodes of syncope secondary [...] his presenting complaints. During his stay in [place] ED he suddenly developed bradycardia prolonged sinus [...] of the abdomen with contrast done at [place] ED showed nonobstructive bowel gas pattern with [...] 11.9* 12.4* HE (more content not included)... [facility] 11-18-2023 Note Attestation signed by Nora [...] calcifications who presented via air ambulance from [facility] due to recurrent episodes of syncope secondary to spontaneous prolonged sinus pause. He had initially presented for worsening midsternal chest pain lower back pain located in his mid chest aching in nature, 6 out of 10 on intensity scale, nonradiating associated with SOB. During his stay at [place] he developed bradycardia prolonged sinus pause up [...] NAD. Resting comfortably. Still in restraints. S/p [employer] DC-PPM this morning, tolerated well. OBJECTIVE [...] PRN, Nils Lam (more content not included)... [facility] 11-18-2023 Note DUAL CHAMBER PACEMAK ER IMPLANT PROCEDURE NOTE DATE OF PROCEDURE: 11/18/23 PERFORMING PHYSICIAN: Dr. Sam Oscar CONSENT: Patient LOCATION: EP Lab PROCEDURE PERFORMED: 1. Implantation of pacemaker ([employer]) 2. Ultrasound guided venous access INDICATIONS: [...] using modified seldinger technique using a 5 German micro-puncture needle on two occasions and 0.35 [...] for the device above the muscle. 6 German Safesheaths were placed over the wire. An active fixation [employer] pacing lead was then delivered through the 6Fsheath to the right ventricle. After confirmation of lead position on orthogonal views (WILKINSON and NEPALI) to confirm septal position, the screw was [...] was then removed. Then an active fixation [employer] lead was delivered through the 6Fsheath to the right atrial appendage. After confirmation of lead position on orthogonal views (WILKINSON and NEPALI), the screw was activated. Good sensing parameters, [...] any concerns. Sam Oscar MD Cardiac Electrophysiology [facility] 11-17-2023 Note Attestation signed by Nora [...] calcifications who presented via air ambulance from [facility] due to recurrent episodes of syncope secondary to spontaneous prolonged sinus pause. He had initially presented for worsening midsternal chest pain lower back pain located in his mid chest aching in nature, 6 out of 10 on intensity scale, nonradiating associated with SOB. During his stay at [place] he developed bradycardia prolonged sinus pause up [...] tablet 5 mg, 5 mg, oral, Nightly, Nlis Zimmer MD Oxygen Therapy, , inhalation, Continuous, [...] oral, Daily, [place] (more content not included)... [facility] 11-17-2023 Note Attestation signed by William [...] initially admitted to the hospitalist service from [place] due to recurrent episodes of syncope secondary [...] his presenting complaints. During his stay in [place] ED he suddenly developed bradycardia prolonged sinus [...] of the abdomen with contrast done at [place] ED showed nonobstructive bowel gas pattern with [...] planning on taking the patient to the Aviation Ordnance Officer tomorrow for possible transvenous pacemaker placement SUBJECTIVE [...] hours) at 11/17/2023 (more content not included)... [facility] 11-16-2023 Note Cardiovascular Labor atory Report [...] left radial artery was obtained. A 6 German glide sheath was inserted without difficulty. Difficulty [...] a mid v (more content not included)... [facility] 11-16-2023 Note Attestation signed by Salena [...] permanent pacemaker implantation tomorrow Salena Alcaraz MD, [facility] Cardiology Progress Note Subjective Subjective: Patient had [...] Value Ventricular Rate 85 Atrial Rate 85 UT Interval 266 QRS DURATION 104 QT Interval 390 QTC CALCULATION(BAZETT) 464 P [place] 71 R-[place] -60 T Wave [place] 49 Impression Sinus rhythm with 1st degree [...] [facility] Heart Station [address] [place] [address] [phone] (fax) Echocardiogram-[facility] Name: NAT MOORE Study Date: 11/15/2023 05:06 PM B/P: 158 mmHg/72 mmHg HR: Date of : 1940 Location: [facility] Height: 65 in. Age: [...] sizeNo significant v (more content not included)... [facility] 11-15-2023 Note CODE BLUE was called on this patient after he sustained a 10 the second sinus pause and then a 7-second sinus pause. Patient with brief LOC. Patient with multiple episodes of nausea and vomiting. MICU fellow at bedside who states he will transfer patient to MICU for transcutaneous pacing. [facility] 11-15-2023 Note Hospital Medicine History and Physical 11/15/2023 5:58 PM THE HOSPITALIST TEAM PREFERS TO USE [employer] CHAT FOR COMMUNICATION 7AM-7PM. IF I DO NOT RESPOND WITHIN 15 MINUTES, PLEASE PAGE ME/CALL THROUGH THE CUFFER. FROM 7PM-7AM, PLEASE PAGE [phone](COVR) Chief Complaint No chief complaint on file. History of Present Illness Nat Moore is an 83 y.o. severely obese male with a medical history significant for type 2 diabetes mellitus, essential hypertension, hyperlipidemia, CKD stage IIIa, bilateral lower extremity edema on diuretic therapy, osteoarthritis, coronary calcifications, depression, mild cognitive impairment, who was transferred via air ambulance from the [facility] due to recurrent episodes of syncope secondary to spontaneous prolonged sinus pause. Patient states that he presented to the [place] ED due to worsening midsternal chest pain [...] his presenting complaints. During his stay in [place] ED he suddenly developed bradycardia prolonged sinus [...] no oral abnorma (more content not included)... [facility] 11-11-2023 Hospital Discharge instructions Patient Education [...] your health care provider. General instructions Take wxkr-iok-ixqhgrb and prescription medicines only as told by [...] provider. Document Revised: 11/27/2020 Document Reviewed: 11/27/2020 [employer] Patient Education 2022 [place]. Follow Up Care 10/14/2023 13:29:56 With:RAUL Ingram APRN, Marianela Rodriguez, RIANNA, URL Address: When: Unknown Comments:f/up in 3 mos [facility] 11-11-2023 Note Patient Education Obstetrics [...] health care provider. General instructions ? Take modc-ppz-nbkkasa and prescription medicines only as told by [...] your health care (more content not included)... [facility] 09-16-2022 Hospital Discharge instructions Patient Education [...] your health care provider. General instructions Take dihx-qau-ikwvpmi and prescription medicines only as told by [...] provider. Document Revised: 11/27/2020 Document Reviewed: 11/27/2020 [employer] Patient Education 2022 [employer]. Follow Up Care 04/26/2022 11:39:09 With:ERIK MENG, Umer Schultz, URL Address: [facility] [address], [place] [address]- When: Unknown [facility] 05-23-2022 Note CONSULTATION CONSULTATION DATE: [...] indicated. Patient agrees with this plan. [facility] 04-26-2022 Hospital Discharge instructions Patient Education [...] urethra. Follow these instructions at home: Take dury-qim-ysalfqn and prescription medicines only as told by [...] 03/10/2006 Document Revised: 02/02/2019 Document Reviewed: 04/14/2017 [employer] Patient Education 2020 [employer]. Follow Up Care 04/08/2022 14:01:00 With:ERIK MENG, Umer Schultz, URL Address: [address] [place] [address]- When: Unknown [facility] [place] 04-08-2022 Hospital Discharge instructions Patient [...] urethra. Follow these instructions at home: Take mkhb-vkm-gpijgdo and prescription medicines only as told by [...] 03/10/2006 Document Revised: 02/02/2019 Document Reviewed: 04/14/2017 [employer] Patient Education 2019 [employer]. Follow Up Care 12/03/2021 14:11:02 With:ERIK MENG, Umer Schultz, URL Address: [facility] [address] , [place] [address]- When: Unknown [facility] 01-22-2022 Note CONSULTATION CONSULTATION DATE: [...] proceed. CC: Juan Pablo Alaniz M.D. 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 He does not use heat or ice to his back at this time. Current medications include gabapentin 200 mg t.i.d., nabumetone 750 mg b.i.d., [place] 5/325 t.i.d. Patient does use a walking [...] L3 and L4, L5. A refill for Bremond 5/325 t.i.d. will be sent today. He will receive an oral U-Tox in the office today. Supportive measures such as stretching, a menthol heat rub and heat application to his back were discussed. I did recommend a Boost supplement daily. Patient will be followed up in the office post procedure and agrees to move forward. [facility] 12-03-2021 Hospital Discharge instructions Patient Education [...] urethra. Follow these instructions at home: Take zwgj-ixw-bskmfao and prescription medicines only as told by [...] 03/10/2006 Document Revised: 02/02/2019 Document Reviewed: 04/14/2017 [employer] Patient Education 2020 [employer]. Follow Up Care 09/03/2021 14:17:23 With:ERIK MENG, Umer Schultz, URL Address: [facility] [address] [place] [address]- [phone] When:04/04/2022 Comments:PVR [facility] 10-02-2021 Note CONSULTATION PROCEDURE DATE: [...] he reports mitigation of his pain symptomatology. [facility] Signed and Approved by: DR VINH HOLCOMB . 10/09/2021 09:28:00 [facility] 10-02-2021 Note CONSULTATION CONSULTATION DATE: 10/02/2021 [...] three times a day. We will re-prescribe B[place]ond 5/325 t.i.d. which he had received from [...] to proceed. CC: Juan Pablo Alaniz M.D. [facility] Signed and Approved by: DR VINH HOLCOMB . 10/09/2021 09:28:00 [facility] 09-03-2021 Hospital Discharge instructions Patient Education [...] 03/10/2006 Document Revised: 11/27/2018 Document Reviewed: 02/07/2017 [employer] Patient Education 2020 [employer]. 09/03/2021 13:53:06 Benign Prostatic Hyperplasia Benign Prostatic [...] urethra. Follow these instructions at home: Take nckr-vlr-pyfsult and prescription medicines only as told by [...] 03/10/2006 Document Revised: 02/02/2019 Document Reviewed: 04/14/2017 [employer] Patient Education 2020 [employer]. Follow Up Care 07/03/2021 15:21:16 With:Umer VALENCIA MD, URL Address: [facility] [address], [place] [address]- [phone] When:Within 3 Month(s) Comments:f/u in 3 months with PVR scan [facility] Evaluation + Plan note Future Appointments Appointment Date:12/03/2021 01:15:00 PM Scheduled Provider:Umer VALENCIA MD Location:[facility] Appointment Type:URO Office Visit [facility] Evaluation + Plan note Future Appointments Appointment Date:04/08/2022 12:45:00 PM Scheduled Provider:Umer VALENCIA MD [facility] Appoint[facility] Type:URO Office Visit [facility] Evaluation + Plan note Future Appointments Appointment Date:04/26/2022 10:15:00 AM Scheduled Provider:Umer VALENCIA MD Location:[facility] Appointment Type:URO Office Visit [facility] Evaluation + Plan note Future Appointments Appointment Date:07/22/2022 08:45:00 AM Scheduled Provider:Umer VALENCIA MD [facility] App[facility] Type:URO Office Visit [facility] Evaluation + Plan note Future Appointments Appointment Date:12/20/2022 08:30:00 AM Scheduled Provider:Umre VALENCIA MD Location:[facility] Appointment Type:URO Office Visit [facility] Evaluation + Plan note Future Appointments Appointment Date:11/11/2023 01:00:00 PM Scheduled Provider:RAUL Ingram APRN, [place] X Location:[facility] Appointment Type:URO Office Visit [facility] Evaluation + Plan note Future Appointments Appointment Date:02/10/2024 12:30:00 PM Scheduled Provider:RAUL Ingram APRN, [place] X Location:[facility] Appointment Type:URO Office Visit [facility] Evaluation note Diagnosis Localized edema- [...] available for this section [facility] Discharge instructions No data available for this section [facility] progress note No data available for this section [facility] [employer] Summary Purpose Family History No Family History [...] AUTHOR 11/14/2020 [facility] DATE CREATED AUTHOR AUTHOR'S ORGANIZ ATION 08/02/2022 [facility] [place] [facility] DATE CREATED AUTHOR AUTHOR'S ORGANIZ ATION 11/13/2023 [facility] DATE CREATED AUTHOR AUTHOR'S ORGANIZ ATION 11/17/2023 [facility] DATE CREATED AUTHOR AUTHOR'S ORGANIZ ATION 11/24/2023 [facility] DATE CREATED AUTHOR AUTHOR'S ORGANIZ ATION 12/07/2023 [facility] DATE CREATED AUTHOR AUTHOR'S ORGANIZ ATION 01/31/2024 [facility] Care Team (unrecognized sect ion and content) Car Runner Relationship Specialty Start Date End Date Juan Pablo Alaniz MD [address] [address] [place] [address] PCP - Peg CHUR[place] 03/24/21 Juan Pablo Alaniz MD [address] [facility] [address] [place] [address] PCP - General Internal Medicine 07/30/22 Car Runner Relationship Specialty Start Date End Date Juan Pablo Alaniz MD [address] [facility] [address] [place] [address] PCP - Peg [place] 03/24/21 Juan Pablo Alaniz MD [address] [facility] [address] [place] [address] PCP - General Internal Medicine 07/30/22 Car Runner Relationship Specialty Start Date End Date Juan Pablo Alaniz MD [address] [facility] [address] [place] [address] PCP - Peg MA 03/24/21 Juan Pablo Alaniz MD [address] [facility] [address] [place] [address] PCP - General Internal Medicine 07/30/22 Car Runner Relationship Specialty Start Date End Date Juan Pablo Alaniz MD [address] [facility] [address] [place] [address] PCP - Peg [place] 03/24/21 Juan Pablo Alaniz MD [address] [place] [address] PCP - General Internal Medicine 07/30/22 Car Runner Relationship Specialty Start Date End Date Juan Pablo Alaniz MD [address] [place] [address] PCP - Peg [place] 03/24/21 Juan Pablo Alaniz MD [address] [place] [address] PCP - General Internal Medicine 07/30/22 Car Runner Relationship Specialty Start Date End Date Juan Pablo Alaniz MD [address] [place] [address] PCP - Peg MA 03/24/21 Juan Pablo Alaniz MD [address] [place] [address] PCP - General Internal Medicine 07/30/22 Reason [...] BE BASED ON THE PRIMARY CLINICAL RECORDS. [facility]. provides no warranty or guarantee of the accuracy or completeness of information in this document.
[2024-02-02 06:06] LABS: Basophils Percent Auto 0.2 % (0.2-2.0); Hematocrit 32.7 % (42.0-54.0); Hemoglobin 10.9 g/dL (14.0-18.0); Immature Granulocytes Abs Auto 0.09 10^3/uL (0.00-0.03); Immature Granulocytes Pct Auto 0.6 % (0.0-0.5); Lymphocytes Absolute Auto 0.8 10^3/uL (1.2-3.8); Lymphocytes Percent Auto 5.9 % (20.5-60.0); Mean Corpuscular HGB Conc 33.3 g/dL (29.9-35.2); Mean Corpuscular Hemoglobin 32.2 pg (25.9-34.0); Mean Corpuscular Volume 96.5 fL (80.0-94.0); Mean Platelet Volume 12.1 fL (9.5-13.5); Monocytes Absolute Auto 0.3 10^3/uL (0.3-0.8); Monocytes Percent Auto 2.4 % (1.7-12.0); Neutrophils Absolute Auto 12.7 10^3/uL (1.4-6.5); Neutrophils Percent Auto 90.9 % (43.0-75.0); Platelet Count 143 10^3/uL (150-450); Red Blood Count 3.39 10^6/uL (4.70-6.10)
[2024-02-02 06:25] LABS: Anion Gap 12.4; BUN Creatinine Ratio 16.9; Calcium 8.4 mg/dL (8.5-10.1); Carbon Dioxide 26.1 mmol/L (21.0-32.0); Chloride 107 mmol/L (98-107); Estimated GFR (African America 45 (>=60 mL/min/1.73m^2); Estimated GFR (Non-African Ame 37 (>=60 mL/min/1.73m^2); Glucose 177 mg/dL (74-106); Potassium 4.5 mmol/L (3.5-5.1); Sodium 141 mmol/L (136-145)
[2024-02-02 07:59] LABS: Glucometer 141 mg/dL (74-106)
--- NOTE | 2024-02-02 08:49 | XR_ITS ---
The [address] [address] Patient Name: NAT MOORE MRN: [id number] date: 1940 Sex: M Assigned Patient Location: [place] Current Patient Location: [place] Accession/Order Number: [id number] Exam Date: 02/02/2024 10:25 Report Date: 02/02/2024 11:05 At the request of: GUY KAPOOR Procedure: XR chest 2V EXAMINATION: XR chest 2V HISTORY: LLL pneumonia on exam COMPARISON: 02/01/2024 TECHNIQUE: PA and lateral FINDINGS: LUNGS: No significant pulmonary parenchymal abnormalities. Pulmonary nodules, size and density suggests granulomas VASCULATURE: No increased pulmonary vasculature. PLEURA: No pneumothorax, effusion, or pleural thickening. CARDIAC: No cardiomegaly or cardiac silhouette abnormality. MEDIASTINUM: No visible mass or adenopathy. Left bipolar pacemaker BONES: No fracture or visible bone lesion. Dextrocurvature OTHER: Negative. XR/XR chest 2V IMPRESSION: No acute cardiopulmonary process Electronically authenticated by: ELIUD PIERSON Date: 02/02/2024 11:05
--- NOTE | 2024-02-02 08:51 | P.DS_ITS ---
DS: Providers Provider Date of admission: 02/01/24 14:36 Primary care physician: JASON CRUZ Consults: 02/01/24 13:13 Occupational Therapy Eval and Treat Routine Reason for consultation: Only if needed for Rehab Has provider been notified: No Physical Therapy Eval and Treat Routine Reason for consultation: Eval and Treat Has provider been notified: No DS: Diagnosis Discharge Diagnosis (1) Cellulitis: (2) Pneumonia: (3) Generalized weakness: (4) Accidental fall: Plan Admission findings: Hyperglycemia, sinus tachycardia, mild respiratory distress, mild alteration in mental status, leukocytosis, iron deficiency anemia, elevated creatinine, secondary to left lower lobe pneumonia and left foot cellulitis. Altered mental status-likely secondary to the infections as outlined above- improving at the time of discharge Early left lower lobe pneumonia on exam,-repeat x-ray pending Early left foot cellulitis. Improving at the time of discharge Acute kidney injury-baseline creatinine 1.48, admission creatinine of 1.94 which is 131.0% above baseline-improving at the time of discharge Mild protein calorie malnutrition-diet management Leukocytosis secondary to above-monitor daily Iron deficiency anemia-monitor daily Diabetes mellitus-insulin sliding scale Gout-not active-continue with home medications Coronary artery disease with hypercholesterolemia-continue with home medications Thrombocytopenia at the time of discharge-can monitor as an outpatient Hypomagnesemia-managed as an outpatient Hypertension-continue with home medications, hold off on diuretics Mild dementia-continue with home medications Depression with anxiety and insomnia-continue with home medications Diabetic peripheral neuropathy-continue with home medications, hold off on meloxicam Bladder spasms-continue with home medications GERD-continue with home medications BPH-continue with home medications Admission status: Patient with mild alteration mental status increasing cough and weakness secondary to the left lower lobe pneumonia and also early left foot cellulitis. Starting patient on fluids for the acute kidney injury, better than 50% chance he will be discharged to home tomorrow's will start patient off in the observational time. If fails the observational time. By tomorrow, he will require inpatient status for medically necessary treatment DS: Summary Hospital Course Hospital Course: Patient was admitted with altered mental status and a fall. Found to have mild left foot cellulitis but more concerning was increasing cough and shortness of breath, exam consistent with left lower lobe pneumonia. Did not show on x-ray likely secondary to the dehydration. This morning patient is more awake and alert but he has not been up and ambulating yet will have physical therapy work with patient. Overall from a laboratory standpoint is mostly improved. Does have some mild thrombocytopenia and hypomagnesemia. Iron also down somewhat today likely secondary to hydration. If patient is eating well ambulating safely possible discharge to home later today. Medications to this. Follow-up with PCP within the next week. Time Spent with Patient Time attestation: Total time spent providing and/or coordinating discharge services: Exam Constitutional Vital Signs, click to edit/add: Last Vital Signs Temp 97.7 F 02/02/24 08:30 Pulse 60 02/02/24 08:30 Resp 18 02/02/24 08:30 BP 161/68 H 02/02/24 08:30 Pulse Ox 95 02/02/24 08:30 O2 Del Method Room Air 02/02/24 08:30 Documenting provider has reviewed patient's vital signs: yes Common normals: no apparent distress Chest Common normals: inspection of chest normal Respiratory Common normals: normal respiratory effort and no retractions Auscultation: rhonchi (Persisting but improved, still more predominant left lower lobe) Cardio Common normals: regular rhythm Rate: tachycardic GI Common normals: negative for Normal to inspection, nondistended, normoactive bowel sounds present (Morbid obesity) Extremity Common normals: abnormal to inspection (Minimal erythema left foot resolved) Neuro Common normals: CN's II-XII intact bilaterally and moves all extremities Other: Somewhat confused DS: Data Data Completed and Pending Labs on day of discharge: Labs from last 24 hours 02/02/24 02/02/24 02/01/24 07:57 05:20 20:24 WBC 14.0 H RBC 3.39 L Hgb 10.9 L Hct 32.7 L MCV 96.5 H MCH 32.2 MCHC 33.3 RDW 14.0 Plt Count 143 L MPV 12.1 Neut % (Auto) 90.9 H Lymph % (Auto) 5.9 L Concho % (Auto) 2.4 Eos % (Auto) 0.0 L Baso % (Auto) 0.2 Neut # (Auto) 12.7 H Lymph # (Auto) 0.8 L Con[place] # (Auto) 0.3 Eos # (Auto) 0.0 Baso # (Auto) 0.0 Abs Immat Gran (auto) 0.09 H Imm/Tot Granulo (auto) 0.6 H Sodium 141 Potassium 4.5 Chloride 107 Carbon Dioxide 26.1 Anion Gap 12.4 BUN 30.0 H Creatinine 1.77 H Est GFR ( Amer) 45 L Est GFR (Non-Af Amer) 37 L BUN/Creatinine Ratio 16.9 Glucose 177 H Lactate Calcium 8.4 L Magnesium NT-Pro-B Natriuret Pep TSH Thyroxine (T4) POC Glucose 141 H 191 H 02/01/24 02/01/24 02/01/24 16:00 13:30 08:44 WBC RBC Hgb Hct MCV MCH MCHC RDW Plt Count MPV Neut % (Auto) Lymph % (Auto) Concho % (Auto) Eos % (Auto) Baso % (Auto) Neut # (Auto) Lymph # (Auto) Concho # (Auto) Eos # (Auto) Baso # (Auto) Abs Immat Gran (auto) Imm/Tot Granulo (auto) Sodium Potassium Chloride Carbon Dioxide Anion Gap BUN Creatinine Est GFR ( Amer) Est GFR (Non-Af Amer) BUN/Creatinine Ratio Glucose Lactate 1.2 Calcium Magnesium 1.5 L NT-Pro-B Natriuret Pep 382.0 TSH 0.507 Thyroxine (T4) 6.00 POC Glucose 91 136 H Discharge Plan Discharge Condition: Good Discharge Medications: No Action allopurinol 300 mg tablet 300 mg PO DAILY docusate sodium 100 mg capsule 100 mg PO DAILY PRN (Reason: constipation) donepezil 10 mg tablet 10 mg PO BEDTIME fluoxetine 20 mg capsule 20 mg PO DAILY gabapentin 100 mg capsule 200 mg PO TID glipizide 10 mg tablet 10 mg PO BID meloxicam 15 mg tablet 15 mg PO BEDTIME methocarbamol 500 mg tablet 500 mg PO BEDTIME omeprazole 40 mg capsule,delayed release(DR/EC) 40 mg PO .ACB tamsulosin 0.4 mg capsule 0.4 mg PO DAILY furosemide 40 mg tablet 40 mg PO DAILY potassium chloride 20 mEq tablet,ER particles/crystals 20 meq PO DAILY trospium 60 mg capsule,extended release 24hr 60 mg PO DAILY candesartan [Atacand] 32 mg tablet 32 mg PO DAILY Qty: 30 11RF fluoxetine 10 mg capsule 10 mg PO DAILY oxybutynin chloride 5 mg tablet extended release 24hr 5 mg PO .QHS quetiapine 25 mg tablet 25 mg PO BID trazodone 100 mg tablet 100 mg PO .QHS amlodipine 5 mg tablet 5 mg PO .QD aspirin 81 mg tablet,chewable 1 tab PO .QD atorvastatin 40 mg tablet 40 mg PO .QHS azithromycin 500 mg tablet 500 mg PO DAILY Coricidin HBP Cold and Flu 2-325 mg tablet 2 tab PO Q6H lidocaine 5 % adhesive patch,medicated 1 patch topical QAM Patient Comments: 12 hrs on and 12 hrs off Print Language: Wolof
--- NOTE | 2024-02-02 09:11 | CM.NOTE ---
Rounds made with Dr. Anglin, discussed with pt discharge to home today. PT will evaluate pt for discharge planning. Dr. Anglin will reassess this afternoon.
--- NOTE | 2024-02-02 10:52 | SWNOTE1 ---
SW called and left a message for pt's , Donna. Waiting to hear back. SNF was recommended.
[2024-02-02] MEDS: ASPIRIN 81 MG TAB.CHEW PO (11:00)
[2024-02-02] MEDS: LOSARTAN POTASSIUM 50 MG TABLET 100 MG PO (11:00)
[2024-02-02] MEDS: MAGNESIUM OXIDE 400 MG TABLET PO ×2 (11:01→22:58)
[2024-02-02] MEDS: POTASSIUM CHLORIDE 10 MEQ ER TABLET 20 MEQ PO (11:01)
[2024-02-02] MEDS: AMLODIPINE BESYLATE 5 MG TABLET PO (11:02)
[2024-02-02] MEDS: TAMSULOSIN HCL 0.4 MG CAPSULE PO (11:02)
[2024-02-02] MEDS: ALLOPURINOL 300 MG TABLET PO (11:02)
[2024-02-02] MEDS: LIDOCAINE 5% PATCH 1 PATCH TOPICAL (11:02)
[2024-02-02] MEDS: FLUOXETINE HCL 20 MG CAPSULE PO (11:02)
[2024-02-02] MEDS: FLUOXETINE HCL 10 MG CAPSULE PO (11:10)
[2024-02-02] MEDS: QUETIAPINE FUMARATE 25 MG TABLET PO ×2 (11:13→22:58)
--- NOTE | 2024-02-02 11:24 | SWNOTE1 ---
SW attempted to call Donna's house phone again, but it does not even ring and said it is not able to take calls right now. SW called pt's son Otis, who is listed on emergency contacts. He was able to provide a cell phone number for Donna. SW called 2x but not able to leave a message since mail box is full. Pt's son Otis did express to SW while on phone that pt and Donna are both getting older and pt is a total care for her at home. He expressed that pt should go to a usp. SW did let him know that it was recommended last time as well, but Donna decided to take him home with home health. SW did explain that therapy did recommend short term rehab which would be covered under his insurance for a short time. 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 NATALYA explained that some facilities take Medicaid as a form of payment. NATALYA asked if any of the kids help in the home? He stated he works, his brother lives in [place], and his sister does help a little and she does not work. SW to go over all this information with pt's . Pt will be a precert if family agrees to SNF.
[2024-02-02] MEDS: AZITHROMYCIN 500 MG in 0.9 % SODIUM CHLORIDE 250 ML 250 MG IV (11:40)
[2024-02-02 11:53] LABS: Glucometer 207 mg/dL (74-106)
--- NOTE | 2024-02-02 12:00 | SWNOTE1 ---
NATALYA called and spoke with pt's , Donna. NATALYA explained to her that it is recommended again that pt go to SNF for a short term rehab stay to get stronger. Initially Donna was hesistant. NATALYA explained the difference between HH and SNF. She asked how long, NATALYA explained that pt is a precert and it will depend on insurance. Donna is agreeable, she voiced she is not feeling the greatest right now either. NATALYA explained it will be beneficial for pt to go SNF and get stronger and for her to get better at home and care for herself. NATALYA did speak with her about [facility] but[facility], but Donna voiced he will not live in a nursing facility and she is only agreeable to short term. Donna would like NATALYA to send referral to [facility]. Her second choice is [facility]. Referral sent to [facility]. Referral included face sheet, ED note, H&P, provider notes, case management report, nursing notes, diagnostic imaging, med list, and PT/OT notes.
[2024-02-02] MEDS: INSULIN ASPART 300 UNIT/3 ML PEN SUBQ (12:58)
--- NOTE | 2024-02-02 13:48 | SWNOTE1 ---
SW received a call from Carl at [facility] and they are not able to accept because they have had him in past and due to behaviors. Referral sent to [facility]. Referral included face sheet, ED note, H&P, provider notes, case management report, nursing notes, diagnostic imaging, med list, and PT/OT notes.
--- NOTE | 2024-02-02 14:12 | PC.NURSE ---
ate less than 25% lunch. wanting to go home, reoriented, but quicklyforgets pulled of telemetry, Assisted back to bed telemetry reapplied. bed alarm on. sr x4 up call light in reach
--- NOTE | 2024-02-02 15:21 | SWNOTE1 ---
SW received a message back from [facility] and they do not have beds available. SW to call pt's .
--- NOTE | 2024-02-02 15:36 | SWNOTE1 ---
NATALYA spoke to pt's . SW advised that [facility] can't accept and [facility] has no beds. She voiced frustration about the [facility] and that they are not accepting to previous behaviors and that was not right. Pt's asked about facility in [place]. She stated her grand-daughter works at the one in [place]. She then asked if there was only one in [place]. SW let her know there is one rehab facility and one Assisted Living. Pt's is going to call her grand-daughter. SW asked permission to send referral to [facility]. She voiced SW can send and she will reach out to her grand-daughter. Referral sent to [facility]. Referral included face sheet, ED note, H&P, provider notes, case management report, wound consult, nursing notes, diagnostic imaging, med list, and PT/OT notes. NATALYA called Lilly in admissions and left message, NATALYA sent e-mail as well.
--- NOTE | 2024-02-02 15:51 | SWNOTE1 ---
SW received message back from Lilly at [facility] and they will review and let SW know.
--- NOTE | 2024-02-02 16:18 | SWNOTE1 ---
SW received call back from pt's and she spoke to grand-daughter and she does work at [employer]. SW advised that [facility] is reviewing referral.
[2024-02-02 16:31] LABS: Glucometer 97 mg/dL (74-106)
[2024-02-02] MEDS: CEFTRIAXONE 1,000 MG in 0.9 % SODIUM CHLORIDE 50 ML 100 MG IV (16:51)
[2024-02-02 20:42] LABS: Glucometer 113 mg/dL (74-106)
[2024-02-02] MEDS: GLIPIZIDE 10 MG TABLET PO (22:57)
[2024-02-02] MEDS: DONEPEZIL HCL 10 MG TABLET PO (22:58)
[2024-02-02] MEDS: OXYBUTYNIN CHLORIDE 5 MG TAB XL PO (22:58)
[2024-02-02] MEDS: ATORVASTATIN CALCIUM 40 MG TABLET PO (22:58)
[2024-02-02] MEDS: TRAZODONE HCL 50 MG TABLET 100 MG PO (22:59)
[2024-02-02] MEDS: METHOCARBAMOL 500 MG TABLET PO (22:59)
[2024-02-03] VITALS (8 sets, daily range): BP systolic 134–141; BP diastolic 68–73; PULSE 60–76; TEMP 36.4–36.6; O2SAT 92–94
--- NOTE | 2024-02-03 05:35 | P.PN_ITS ---
Progress Note: Subjective Subjective Interval history: Patient with some improvement but has not been up and ambulating yet. Still with significant cough throughout the evaluation Exam Constitutional Vital Signs, click to edit/add: Last Vital Signs Temp 98.6 F 02/02/24 23:57 Pulse 61 02/03/24 03:58 Resp 18 02/02/24 23:57 BP 132/71 02/02/24 23:57 Pulse Ox 94 L 02/02/24 23:57 O2 Del Method Room Air 02/02/24 23:57 Documenting provider has reviewed patient's vital signs: yes Common normals: no apparent distress Chest Common normals: inspection of chest normal Respiratory Common normals: normal respiratory effort and no retractions Auscultation: rhonchi (Persisting but improved air exchange) Cardio Common normals: regular rhythm Rate: tachycardic GI Common normals: negative for Normal to inspection, nondistended, normoactive bowel sounds present (Morbid obesity) Extremity Common normals: abnormal to inspection (Minimal erythema improved) Neuro Common normals: CN's II-XII intact bilaterally and moves all extremities Other: Somewhat confused Progress Note: Objective Labs Labs: Short CBC 02/02/24 Range/Units 05:20 WBC 14.0 H (4.0-11.0) 10^3/uL Hgb 10.9 L (14.0-18.0) g/dL Hct 32.7 L (42.0-54.0) % Plt Count 143 L (150-450) 10^3/uL BMP 02/02/24 05:20 Sodium 141 Potassium 4.5 Chloride 107 Carbon Dioxide 26.1 BUN 30.0 H Creatinine 1.77 H Glucose 177 H Calcium 8.4 L Progress Note: A&P Assessment and Plan (1) Cellulitis: (2) Pneumonia: (3) Generalized weakness: (4) Accidental fall: Plan Admission findings: Hyperglycemia, sinus tachycardia, mild respiratory distress, mild alteration in mental status, leukocytosis, iron deficiency anemia, elevated creatinine, secondary to left lower lobe pneumonia and left foot cellulitis. Altered mental status-overall seems to be improved today but is still early Early left lower lobe pneumonia on exam, check on chest x-ray, continue with IV antibiotics overall somewhat improved Early left foot cellulitis. Much improved continue with antibiotics Acute kidney injury-baseline creatinine 1.48, admission creatinine of 1.94 which is 131.0% above baseline-continue to monitor daily Mild protein calorie malnutrition-diet management Leukocytosis secondary to above-Daily labs Iron deficiency anemia-monitor daily Diabetes mellitus-insulin sliding scale Gout-not active-continue with home medications Coronary artery disease with hypercholesterolemia-continue with home medications Thrombocytopenia-monitor daily Hypomagnesemia-managed as an outpatient Hypertension-continue with home medications, hold off on diuretics Mild dementia-continue with home medications Depression with anxiety and insomnia-continue with home medications Diabetic peripheral neuropathy-continue with home medications, hold off on meloxicam Bladder spasms-continue with home medications GERD-continue with home medications BPH-continue with home medications Admission status: Patient with mild alteration mental status increasing cough and weakness secondary to the left lower lobe pneumonia and also early left foot cellulitis. Starting patient on fluids for the acute kidney injury, patient will feel the observational time., Lung exam still consistent with pneumonia with only minimal improvement white blood cell count persistently elevated failed ambulation with physical therapy. Medically necessary treatment spanning 2 midnights. Inpatient status. Urinary Catheter Management Urinary Catheter Management Straight: Cath placed during this visit: yes Urethral indwelling: No Insertion time: 06:34
--- NOTE | 2024-02-03 05:40 | P.PN_ITS ---
Progress Note: Subjective Subjective Interval history: Patient with some improvement but has not been up and ambulating yet. Still with significant cough throughout the evaluation Exam Constitutional Vital Signs, click to edit/add: Last Vital Signs Temp 98.6 F 02/02/24 23:57 Pulse 61 02/03/24 03:58 Resp 18 02/02/24 23:57 BP 132/71 02/02/24 23:57 Pulse Ox 94 L 02/02/24 23:57 O2 Del Method Room Air 02/02/24 23:57 Progress Note: Objective Labs Labs: Short CBC 02/02/24 Range/Units 05:20 WBC 14.0 H (4.0-11.0) 10^3/uL Hgb 10.9 L (14.0-18.0) g/dL Hct 32.7 L (42.0-54.0) % Plt Count 143 L (150-450) 10^3/uL BMP 02/02/24 05:20 Sodium 141 Potassium 4.5 Chloride 107 Carbon Dioxide 26.1 BUN 30.0 H Creatinine 1.77 H Glucose 177 H Calcium 8.4 L Progress Note: A&P Assessment and Plan (1) Cellulitis: (2) Pneumonia: (3) Generalized weakness: (4) Accidental fall: Plan Admission findings: Hyperglycemia, sinus tachycardia, mild respiratory distress, mild alteration in mental status, leukocytosis, iron deficiency anemia, elevated creatinine, secondary to left lower lobe pneumonia and left foot cellulitis. Altered mental status-overall seems to be improved today but is still early Early left lower lobe pneumonia on exam, check on chest x-ray, continue with IV antibiotics overall somewhat improved Early left foot cellulitis. Much improved continue with antibiotics Acute kidney injury-baseline creatinine 1.48, admission creatinine of 1.94 which is 131.0% above baseline-continue to monitor daily Mild protein calorie malnutrition-diet management Leukocytosis secondary to above-Daily labs Iron deficiency anemia-monitor daily Diabetes mellitus-insulin sliding scale Gout-not active-continue with home medications Coronary artery disease with hypercholesterolemia-continue with home medications Thrombocytopenia-monitor daily Hypomagnesemia-managed as an outpatient Hypertension-continue with home medications, hold off on diuretics Mild dementia-continue with home medications Depression with anxiety and insomnia-continue with home medications Diabetic peripheral neuropathy-continue with home medications, hold off on meloxicam Bladder spasms-continue with home medications GERD-continue with home medications BPH-continue with home medications Admission status: Patient with mild alteration mental status increasing cough and weakness secondary to the left lower lobe pneumonia and also early left foot cellulitis. Starting patient on fluids for the acute kidney injury, patient will feel the observational time., Lung exam still consistent with pneumonia with only minimal improvement white blood cell count persistently elevated failed ambulation with physical therapy. Medically necessary treatment spanning 2 midnights. Inpatient status. Urinary Catheter Management Urinary Catheter Management Straight: Cath placed during this visit: yes Urethral indwelling: No Insertion time: 06:34
[2024-02-03] MEDS: BENZONATATE 100 MG CAPSULE 200 MG PO ×2 (06:04→12:35)
[2024-02-03] MEDS: OMEPRAZOLE 40 MG CAPSULE.DR PO (06:04)
[2024-02-03] MEDS: GABAPENTIN 100 MG CAPSULE 200 MG PO ×2 (06:04→12:35)
[2024-02-03 06:32] LABS: Basophils Percent Auto 0.1 % (0.2-2.0); Eosinophils Percent Auto 0.1 % (0.9-7.0); Hematocrit 31.6 % (42.0-54.0); Hemoglobin 10.5 g/dL (14.0-18.0); Immature Granulocytes Abs Auto 0.05 10^3/uL (0.00-0.03); Immature Granulocytes Pct Auto 0.4 % (0.0-0.5); Lymphocytes Absolute Auto 1.9 10^3/uL (1.2-3.8); Lymphocytes Percent Auto 14.2 % (20.5-60.0); Mean Corpuscular HGB Conc 33.2 g/dL (29.9-35.2); Mean Corpuscular Hemoglobin 32.4 pg (25.9-34.0); Mean Corpuscular Volume 97.5 fL (80.0-94.0); Mean Platelet Volume 11.4 fL (9.5-13.5); Monocytes Absolute Auto 0.8 10^3/uL (0.3-0.8); Monocytes Percent Auto 5.7 % (1.7-12.0); Neutrophils Absolute Auto 10.7 10^3/uL (1.4-6.5); Neutrophils Percent Auto 79.5 % (43.0-75.0); Platelet Count 142 10^3/uL (150-450); Red Blood Count 3.24 10^6/uL (4.70-6.10); Red Cell Distribution Width 14.2 % (11.0-15.0); White Blood Count 13.4 10^3/uL (4.0-11.0)
[2024-02-03 06:47] LABS: Anion Gap 14.5; Calcium 7.9 mg/dL (8.5-10.1); Carbon Dioxide 26.1 mmol/L (21.0-32.0); Chloride 110 mmol/L (98-107); Estimated GFR (African America 43 (>=60 mL/min/1.73m^2); Estimated GFR (Non-African Ame 36 (>=60 mL/min/1.73m^2); Glucose 96 mg/dL (74-106); Potassium 4.6 mmol/L (3.5-5.1); Sodium 146 mmol/L (136-145)
--- NOTE | 2024-02-03 07:41 | CM.NOTE ---
Rounds made with Dr. Anglin, discussed with pt need for skilled therapy at discharge. Pt continues with underlying confusion. Awaiting to see if [facility] is able to accept pt at discharge when medically stable for skilled therapy. No discharge today.
[2024-02-03] MEDS: FLUOXETINE HCL 10 MG CAPSULE PO (09:14)
[2024-02-03] MEDS: ALLOPURINOL 300 MG TABLET PO (09:14)
[2024-02-03] MEDS: ASPIRIN 81 MG TAB.CHEW PO (09:14)
[2024-02-03] MEDS: AMLODIPINE BESYLATE 5 MG TABLET PO (09:14)
[2024-02-03] MEDS: QUETIAPINE FUMARATE 25 MG TABLET PO (09:14)
[2024-02-03] MEDS: SOLIFENACIN SUCCINATE 10 MG TABLET PO (09:14)
[2024-02-03] MEDS: POTASSIUM CHLORIDE 10 MEQ ER TABLET 20 MEQ PO (09:14)
[2024-02-03] MEDS: LIDOCAINE 5% PATCH 1 PATCH TOPICAL (09:15)
[2024-02-03] MEDS: MAGNESIUM OXIDE 400 MG TABLET PO (09:15)
[2024-02-03] MEDS: FLUOXETINE HCL 20 MG CAPSULE PO (09:15)
[2024-02-03] MEDS: TAMSULOSIN HCL 0.4 MG CAPSULE PO (09:15)
[2024-02-03] MEDS: GLIPIZIDE 10 MG TABLET PO (09:15)
[2024-02-03] MEDS: LOSARTAN POTASSIUM 50 MG TABLET 100 MG PO (09:15)
--- NOTE | 2024-02-03 09:38 | REH.PTDLY ---
Physical Therapy Daily Note PT Daily Note/Assess Start: 02/03/24 09:32 Freq: Status: Active Protocol: Document 02/03/24 09:33 BEATRIZTEINAYE (Rec: 02/03/24 09:38 KSTEINAYE No Response) Physical Therapy Daily Note/Assessment Time In 09:00 Time Out 09:20 Subjective Pt in bed upon arrival, agreeable to therapy Therapeutic Exercise Minutes (minutes) 8 Therapeutic Exercise Units 1 Therapeutic Exercise Treatment Supine B LE exs 10x ea with verbal and tactile cues needed for QS. Pt performs AP, SLR, heel slides, and abd slides as well. Seated B LE exs 10x ea LAQ, marching and hip add squeeze. Pt complains of some stiffness in R thigh with seated exs. Therapeutic Activity Minutes (minutes) 7 Therapeutic Activity Units 0 Therapeutic Activity Comments Supine to sit transfers Min A. Sit to stand transfers Min A from side of bed. Gait training with RW CGA 55 feet with 1 instance on instability when turning to sit in chair. Cues for pt to reach back for arms of chair upon sitting. Total Therapy Minutes 15 Total Physical Therapy Units 1 Daily Note Summary Progressed gait distance with 1 instance of instability. Pt requires Min A with transfers due to weakness. Pt would benefit from SNF stay at [facility] for strengthening to reduce fall risk.
--- NOTE | 2024-02-03 09:54 | SWNOTE1 ---
NATALYA had email from Lilly at [facility]. 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 They are also concerned about pt not getting approved by his insurance. Once Lilly completes Medicaid questionnaire with pt's she will let NATALYA know. NATALYA spoke to pt's and let her know this information. NATALYA let her know that Lilly will be calling her soon.
[2024-02-03 11:22] LABS: Glucometer 57 mg/dL (74-106)
--- NOTE | 2024-02-03 11:40 | SWNOTE1 ---
NATALYA received a call from Lilly at [facility] and pt is approved to go skilled. NATALYA was not aware precert was started. Lilly spoke with pt's , Donna, on phone in regards to Medicaid. Donna voiced she has no interest in pt staying terminal manager at facility and that she will not be answering the questions. [facility] is ready for pt today. NATALYA messaged Dr. Anglin. NATALYA completed [facility] online. NATALYA spoke to nurse and due to pt's Dementia will be setting up stretcher transport.
[2024-02-03] MEDS: AZITHROMYCIN 500 MG in 0.9 % SODIUM CHLORIDE 250 ML 250 MG IV (12:35)
--- NOTE | 2024-02-03 12:35 | P.DS_ITS ---
DS: Providers Provider Date of admission: 02/02/24 15:00 Primary care physician: JASON CRUZ Consults: 02/01/24 13:13 Occupational Therapy Eval and Treat Routine Reason for consultation: Only if needed for Rehab Has provider been notified: No Physical Therapy Eval and Treat Routine Reason for consultation: Eval and Treat Has provider been notified: No DS: Diagnosis Discharge Diagnosis (1) Cellulitis: (2) Pneumonia: (3) Generalized weakness: (4) Accidental fall: Plan Admission findings: Hyperglycemia, sinus tachycardia, mild respiratory distress, mild alteration in mental status, leukocytosis, iron deficiency anemia, elevated creatinine, secondary to left lower lobe pneumonia and left foot cellulitis. Altered mental status-improving at the time of discharge Early left lower lobe pneumonia on exam,-proving the time of discharge Early left foot cellulitis. Resolving at the time of discharge Acute kidney injury-b elevated but stable at the time of discharge Mild protein calorie malnutrition-diet management Leukocytosis secondary to above-Daily labs Iron deficiency anemia-monitor daily Diabetes mellitus-insulin sliding scale Gout-not active-continue with home medications Coronary artery disease with hypercholesterolemia-continue with home medications Thrombocytopenia-monitor daily Hypomagnesemia-managed as an outpatient Hypertension-continue with home medications, hold off on diuretics Mild dementia-continue with home medications Depression with anxiety and insomnia-continue with home medications Diabetic peripheral neuropathy-continue with home medications, hold off on meloxicam Bladder spasms-continue with home medications GERD-continue with home medications BPH-continue with home medications Admission status: Patient with mild alteration mental status increasing cough and weakness secondary to the left lower lobe pneumonia and also early left foot cellulitis. Starting patient on fluids for the acute kidney injury, patient will feel the observational time., Lung exam still consistent with pneumonia with only minimal improvement white blood cell count persistently elevated failed ambulation with physical therapy. Medically necessary treatment spanning 2 midnights. Inpatient status. DS: Summary Hospital Course Hospital Course: Patient was admitted with altered mental status and a fall. Found to have mild left foot cellulitis but more concerning was increasing cough and shortness of breath, exam consistent with left lower lobe pneumonia. Did not show on x-ray likely secondary to the dehydration. This morning patient is more awake and alert but he has not been up and ambulating yet will have physical therapy work with patient. Overall from a laboratory standpoint is mostly improved. Does have some mild thrombocytopenia and hypomagnesemia. Iron also down somewhat today likely secondary to hydration. If patient is eating well ambulating safely possible discharge to home later today. Medications to this. Patient did fail the rehabilitation evaluation. He is improved today. He is medically stable for discharge to rehab. I think he will be an excellent rehabilitation candidate as he is highly motivated for returning to home Status at Discharge Overall status at discharge: patient is not back to baseline Time Spent with Patient Time attestation: Total time spent providing and/or coordinating discharge services: Time spent: greater than 30 minutes Exam Constitutional Vital Signs, click to edit/add: Last Vital Signs Temp 97.9 F 02/03/24 07:59 Pulse 60 02/03/24 08:00 Resp 16 02/03/24 07:59 BP 141/68 02/03/24 07:59 Pulse Ox 92 L 02/03/24 08:09 O2 Del Method Room Air 02/03/24 08:09 Documenting provider has reviewed patient's vital signs: yes Common normals: no apparent distress Chest Common normals: inspection of chest normal Respiratory Common normals: normal respiratory effort and no retractions Auscultation: rhonchi (Persisting but improved air exchange) Cardio Common normals: regular rhythm Rate: tachycardic GI Common normals: negative for Normal to inspection, nondistended, normoactive bowel sounds present (Morbid obesity) Extremity Common normals: abnormal to inspection (Minimal erythema improved) Neuro Common normals: CN's II-XII intact bilaterally and moves all extremities Other: Somewhat confused DS: Data Data Completed and Pending Labs on day of discharge: Labs from last 24 hours 02/03/24 02/03/24 02/02/24 11:21 06:25 20:36 WBC 13.4 H RBC 3.24 L Hgb 10.5 L Hct 31.6 L MCV 97.5 H MCH 32.4 MCHC 33.2 RDW 14.2 Plt Count 142 L MPV 11.4 Neut % (Auto) 79.5 H Lymph % (Auto) 14.2 L Jefferson % (Auto) 5.7 Eos % (Auto) 0.1 L Baso % (Auto) 0.1 L Neut # (Auto) 10.7 H Lymph # (Auto) 1.9 Jefferson # (Auto) 0.8 Eos # (Auto) 0.0 Baso # (Auto) 0.0 Abs Immat Gran (auto) 0.05 H Imm/Tot Granulo (auto) 0.4 Sodium 146 H Potassium 4.6 Chloride 110 H Carbon Dioxide 26.1 Anion Gap 14.5 BUN 38.0 H Creatinine 1.81 H Est GFR ( Amer) 43 L Est GFR (Non-Af Amer) 36 L BUN/Creatinine Ratio 21.0 Glucose 96 Calcium 7.9 L POC Glucose 57 L 113 H 02/02/24 16:29 WBC RBC Hgb Hct MCV MCH MCHC RDW Plt Count MPV Neut % (Auto) Lymph % (Auto) Jefferson % (Auto) Eos % (Auto) Baso % (Auto) Neut # (Auto) Lymph # (Auto) Jefferson # (Auto) Eos # (Auto) Baso # (Auto) Abs Immat Gran (auto) Imm/Tot Granulo (auto) Sodium Potassium Chloride Carbon Dioxide Anion Gap BUN Creatinine Est GFR ( Amer) Est GFR (Non-Af Amer) BUN/Creatinine Ratio Glucose Calcium POC Glucose 97 Discharge Plan Discharge Disposition: Xfer SNF Condition: Good Discharge Medications: New magnesium oxide 400 mg (241.3 mg magnesium) Tablet 400 mg PO BID Qty: 60 11RF cefdinir 300 mg capsule 600 mg PO DAILY Qty: 20 0RF Continued allopurinol 300 mg tablet 300 mg PO DAILY docusate sodium 100 mg capsule 100 mg PO DAILY PRN (Reason: constipation) donepezil 10 mg tablet 10 mg PO BEDTIME fluoxetine 20 mg capsule 20 mg PO DAILY gabapentin 100 mg capsule 200 mg PO TID glipizide 10 mg tablet 10 mg PO BID meloxicam 15 mg tablet 15 mg PO BEDTIME methocarbamol 500 mg tablet 500 mg PO BEDTIME omeprazole 40 mg capsule,delayed release(DR/EC) 40 mg PO .ACB tamsulosin 0.4 mg capsule 0.4 mg PO DAILY furosemide 40 mg tablet 40 mg PO DAILY potassium chloride 20 mEq tablet,ER particles/crystals 20 meq PO DAILY trospium 60 mg capsule,extended release 24hr 60 mg PO DAILY candesartan [Atacand] 32 mg tablet 32 mg PO DAILY Qty: 30 11RF fluoxetine 10 mg capsule 10 mg PO DAILY oxybutynin chloride 5 mg tablet extended release 24hr 5 mg PO .QHS quetiapine 25 mg tablet 25 mg PO BID trazodone 100 mg tablet 100 mg PO .QHS amlodipine 5 mg tablet 5 mg PO .QD aspirin 81 mg tablet,chewable 1 tab PO .QD atorvastatin 40 mg tablet 40 mg PO .QHS azithromycin 500 mg tablet 500 mg PO DAILY Coricidin HBP Cold and Flu 2-325 mg tablet 2 tab PO Q6H lidocaine 5 % adhesive patch,medicated 1 patch topical QAM Patient Comments: 12 hrs on and 12 hrs off Print Language: Japanese Tearer/Wrapper Leaf Inspector Instructions: Discharge to [facility] skilled Forms: Portal Instructions
--- NOTE | 2024-02-03 13:00 | SWNOTE1 ---
NATALYA called and set up [facility] for 3:15. NATALYA faxed over dc med rec and PT/OT notes from today. NATALYA completed HENS online. NATALYA took packet to the floor. NATALYA notified nurse and Lilly at [facility] of time. NATALYA attempted to call 2x, no answer. SW to keep trying. Pt is going to [facility].
--- NOTE | 2024-02-03 13:53 | SWNOTE1 ---
SW attempted to call Donna again, no answer.
--- NOTE | 2024-02-03 14:51 | SWNOTE1 ---
Pt's is here at hospital and aware of time.
== END 2024-02-03 16:25 | DRG 602 ==
LOC: ER 09:48 → MS 02-02 06:02
PROVIDERS: Admitting Provider Family Medicine; Emergency Provider Student in an Organized Health Care Education/Training Program; PCP Internal Medicine; Visit Provider Family Medicine
DX: L03.116 Cellulitis of left lower limb (principal); J18.9 Pneumonia, unspecified organism; E44.1 Mild protein-calorie malnutrition; N17.9 Acute kidney failure, unspecified; R06.03 Acute respiratory distress; D50.9 Iron deficiency anemia, unspecified; D69.6 Thrombocytopenia, unspecified; E11.42 Type 2 diabetes mellitus with diabetic polyneuropathy; E11.65 Type 2 diabetes mellitus with hyperglycemia; E78.00 Pure hypercholesterolemia, unspecified; E83.42 Hypomagnesemia; E86.0 Dehydration; F03.A0 Unspecified dementia, mild, without behavioral disturbance, psychotic disturbance, mood disturbance, and anxiety; F32.A Depression, unspecified; F41.9 Anxiety disorder, unspecified; I10 Essential (primary) hypertension; I25.10 Atherosclerotic heart disease of native coronary artery without angina pectoris; M10.9 Gout, unspecified; K21.9 Gastro-esophageal reflux disease without esophagitis; N32.89 Other specified disorders of bladder; N40.0 Benign prostatic hyperplasia without lower urinary tract symptoms; R29.6 Repeated falls; W06.XXXA Fall from bed, initial encounter; Z68.36 Body mass index [BMI] 36.0-36.9, adult; Z79.84 Long term (current) use of oral hypoglycemic drugs; Z79.82 Long term (current) use of aspirin; Z79.899 Other long term (current) drug therapy; Z88.0 Allergy status to penicillin; Z95.0 Presence of cardiac pacemaker
CPT/HCPCS: 36415; 70450; 71045; 71046; 72125; 72170; 80048; 80053; 81001; 82948; 83605; 83735; 83880; 84436; 84443; 84484; 85025; 87040; 87070; 93005; 94667; 94668; 94761; 96365; 96367; 96375; 97110; 97161; 97165; 97530; 97535; 99285; G0378; J0456; J0696; J1100; J2405

== ENCOUNTER 2024-02-15 20:09 | Observation (INO) | payer MEDICARE, SELFPAY ==
[2024-02-15 20:13] VITALS: BP 172/84; PULSE 86; TEMP 36.4; O2SAT 98; BMI 25.8
--- OUTSIDE RECORDS SUMMARY | 2024-02-15 20:22 | XMS_ITS | CCD ---
Author Organization [facility] Care Team Providers Care Nurse Special Name Role Phone JUAN PABLO ALANIZ Primary Care Physician [phone] DR JUAN PABLO ALANIZ Primary Care Unavailable [...] Unavailable MAILE ., DR BECKETT Attending Unavailable CORBIN, DR [...] Unavailable CORBIN, DR GOMEZ Primary Care Unavailable ZAHNG ., DR VINH Freeman Admitting Unavailable HOLCOMB ., DR VINH Freeman Consulting Unavailable ZHANG ., DR VINH Freeman Consulting Unavailable ZHANG ., DR VINH Freeman Admitting Unavailable HOLCOMB ., DR VINH Freeman Attending Unavailable CORBIN, DR GOMEZ Primary Care Unavailable HOLCOMB ., DR VINH Freeman Admitting Unavailable HOLCOMB ., DR VINH Freeman Attending Unavailable SHELLIE GIBSON Consulting Unavailable CORBIN, DR GOMEZ Primary Care [...] Primary Care Unavailable MANDIE NOBLE Admitting Unavailable AIDE, MANDIE Goodman Attending Unavailable CORBIN, DR GOMEZ Primary Care Unavailable SAMANTHA, DR [...] vailable LAKSHMIPATHY ., NARANAATH Attending Yasmeen vailable CORBIN, DR GOMEZ Primary Care Unavailable HIGHLANDER, PETER D Admitting Unavailable HIGHLANDER, PETER D Attending Unavailable PROVIDER, UNKNOWN Admitting Unavailable PROVIDER, UNKNOWN Attending Unavailable GERARDO, ART Referring Unavailable GARCIA, SAM Referring Unavailable DIAB, CHAKA Referring Unavailable HORANI, GILES Admitting Unavailable GILES, BANG Attending Unavailable HORANI, GILES Referring Unavailable HORANI, GILES Referring Unavailable KL, ANUEL Referring Unavailable HORANI, GILES Referring Unavailable HORANI, GILES Referring Unavailable GERARDO, ART Referring Unavailable GERARDO, ART Referring Unavailable RENE ANTHONY Referring Unavailable AHMED, IRFAN Primary Care Unavailable LORI, DARCY Referring Unavailable AHMED, IRFAN Primary Care Unavailable JUAN DAVID LUI Attending Unavailable [facility] Unavailable Juan Pablo Alaniz MD Unavailable [phone] Juan Pablo Alaniz MD Primary Care Provider JUAN PABLO ALANIZ Attending Unavailable JUAN PABLO ALANIZ Attending Unavailable JUAN PABLO ALNAIZ Attending Unavailable JUAN PABLO ALANIZ Attending Unavailable TOMMY GABRIEL Attending Unavailable LORIDARCY Attending Unavailable LORI, DARCY M Attending Unavailable LORI, DARCY M Attending Unavailable LORI, DARCY M Attending Unavailable LORIDARCY Attending Unavailable PERLA AGUILA Attending Unavailable OrMarianela lugo Attending Unavailable CAIT DUNHAM Attending Unavailable Orzefausto Marianela X Attending Unavailable OrMarianela lugo X Attending Unavailable Allergies Allergy Classification Reported Allergen(s) Allergy Type Date of Onset Reaction(s) Facility (11 sources) Penicillin; Translations: [penicillin] Drug Allergy 12-01-2021 [facility] (3 sources) Penicillins; Translations: [PENICILLINS] Drug allergy (disorder) 11-15-2023 [facility] (11 sources) Penicillin G Drug Allergy 11-01-2022 Unknown [facility] Work Phone: (10 sources) Codeine Drug Allergy 12-25-2023 [facility] Medications Current Medications Medication Drug Class(es) Dates Sig (Normalized) Sig (Original) acetaminophen 325 mg / chlorpheniramine maleate 2 mg oral tablet (3 sources) Histamine-1 Receptor Antagonist Start: 01-29-2024 End: 02-12-2024 take 2-325 mg by mouth every six hours Chlorpheniramine -Acetaminophen (CORICIDIN) 2-325 MG tablet Indications: Acute cough Take 2 tablets by mouth every 6 (six) hours for 14 days 112 tablet 01/29/2024 02/12/2024 Active allopurinol 300 mg oral tablet (20 sources) Xanthine Oxidase Inhibitor Start: 01-17-2021 take 1 tablet by mouth once daily allopurinol (Zyloprim) 300 MG tablet Indications: Essential hypertension (CMS/HCC) TAKE ONE TABLET BY MOUTH DAILY 100 tablet 3 03/13/2023 Active amLODIPine 5 mg oral tablet (10 sources) Dihydropyridine Calcium Channel Levi take 1 tablet by mouth once daily for hypertension amLODIPine (Norvasc) 5 MG tablet TAKE ONE TABLET BY MOUTH DAILY FOR HYPERTENSION Active aspirin 81 mg delayed release oral tablet (10 sources) Platelet Aggregation Inhibitor, Nonsteroidal Anti-inflammatory Drug take 1 tablet by mouth once daily aspirin 81 MG EC tablet Take 1 tablet by mouth Daily Active atorvastatin 40 mg oral tablet (10 sources) HMG-CoA Reductase Inhibitor take 1 capsule by mouth at bedtime for hyperlipidemia atorvastatin (Lipitor) 40 MG tablet TAKE ONE CAPSULE BY MOUTH AT BEDTIME FOR CHOLESTEROL CONTROL Active candesartan cilexetil 32 mg oral tablet (11 sources) Angiotensin 2 Receptor Levi Start: 10-07-2023 [...] Ordered docusate sodium 100 mg oral capsule (20 sources) Start: 01-16-2023 take 1 capsule by mouth once daily as needed docusate sodium (Colace) 100 MG capsule Indications: Constipation, unspecified constipation type TAKE ONE CAPSULE BY MOUTH DAILY NEEDED 28 capsule 11 01/16/2023 Active Start: 01-17-2021 docusate sodiu m Refills(s) 0 Start Date: 01/17/21 Status: Ordered donepezil hydrochloride 10 mg oral tablet (20 sources) Start: 10-23-2023 take 1 tablet by [...] mg / linagliptin 5 mg oral tablet (9 sources) Dipeptidyl Peptidase 4 Inhibitor, Sodium-Glucose Cotransporter 2 Inhibitor Start: 01-17-2021 take 1 tablet by mouth once daily in the morning Glyxambi 10 mg-5 mg oral tablet tab(s), Oral, qAM, Refill(s) 0 Start Date: 01/17/21 Status: Ordered FLUoxetine 10 mg oral capsule (20 sources) Serotonin Reuptake Inhibitor Start: 12-08-2023 take 1 capsule by mouth once daily for depression FLUoxetine (PROzac) 10 MG capsule TAKE ONE CAPSULE BY MOUTH DAILY FOR DEPRESSION WITH 20MG TO EQUAL 30MG TOTAL 12/08/2023 Active Start: 11-28-2022 take 1 capsule by mo uth once daily FLUoxetine (PROzac) 20 MG capsule Indications: Seasonal affective disorder (CMS/HCC) TAKE ONE CAPSULE BY MOUTH ONCE DAILY 28 capsule 11 11/28/2022 Active furosemide 40 mg oral tablet (11 sources) Loop Diuretic Start: 11-13-2023 End: 11-12-2024 take 1 tablet by mouth once daily furosemide (Lasix) 40 MG tablet Indications: Bilateral lower extremity edema Take 1 tablet (40 mg) by mouth Daily 30 tablet 11 11/13/2023 11/12/2024 Active gabapentin 100 mg oral capsule (20 sources) Anti-epileptic Agent Start: 10-01-2023 take 2 [...] Status: Ordered glipiZIDE 10 mg oral tablet (20 sources) Sulfonylurea Start: 03-13-2023 take 1 tablet by mouth twice daily glipiZIDE (Glucotrol) 10 MG tablet Indications: Type 2 diabetes mellitus with other specified complication, without long-term current use of insulin ([facility]) TAKE ONE TABLET BY MOUTH TWICE A DAY 200 tablet 3 03/13/2023 Active Start: 01-17-2021 take 1 mg by mouth once daily glipiZIDE 10 mg Tab mg tab(s), Oral, Daily, Refills(s) 0 Start Date: 01/17/21 Status: Ordered hydrOXYzine hydrochloride 25 mg oral tablet (10 sources) Antihistamine Start: 12-08-2023 take 1 tablet by mouth every eight hours as needed for anxiety hydrOXYzine HCl (Atarax) 25 MG tablet Take 25 mg by mouth every 8 (eight) hours if needed for anxiety 12/08/2023 Active lidocaine 0.05 mg/mg medicated patch (11 sources) Antiarrhythmic, Amide Local Anesthetic Start: 01-21-2024 [...] 01/13/2024 Active meloxicam 15 mg oral tablet (11 sources) Nonsteroidal Anti-inflammatory Drug Start: 10-23-2023 take 1 tablet by mouth at bedtime meloxicam (Mobic) 15 MG tablet Indications: Spinal stenosis of lumbar region, unspecified whether neurogenic claudication present TAKE ONE TABLET BY MOUTH AT BEDTIME 28 tablet 11 10/23/2023 Active methocarbamol 500 mg oral tablet (11 sources) Muscle Relaxant Start: 12-30-2023 take 1 [...] succinate 100 mg extended release oral tablet (9 sources) beta-Adrenergic Levi Start: 01-17-2021 take 1 mg by mouth once daily metoprolol 100 mg ER Tab mg tab(s), Oral, Daily, Refills(s) 0 Start Date: 01/17/21 Status: Ordered omeprazole 40 mg delayed release oral capsule (11 sources) Proton Pump Inhibitor Start: 12-30-2023 take [...] chloride 5 mg extended release oral tablet (10 sources) Cholinergic Muscarinic Antagonist take 1 tablet by mouth every twenty-four hours at bedtime oxybutynin XL (Ditropan-XL) 5 MG 24 hr tablet TAKE ONE TABLET BY MOUTH AT BEDTIME FOR OVERACTIVE BLADDER Active microencapsulated potassium chloride 20 meq extended release oral tablet (11 sources) Start: 2023 End: 2024 take 1 tablet by mouth once daily potassium chloride CR (Klor-Con M20) 20 MEQ ER tablet Indications: Hypokalemia Take 1 tablet (20 mEq) by mouth Daily Do not crush or chew. 30 tablet 11 11/13/2023 11/12/2024 Active QUEtiapine 25 mg oral tablet (10 sources) Atypical Antipsychotic take 1 tablet by mouth twice daily QUEtiapine (SEROquel) 25 MG tablet TAKE ONE TABLET BY MOUTH TWICE A DAY FOR DELUSIONS Active solifenacin succinate 10 mg oral tablet (15 sources) Cholinergic Muscarinic Antagonist Start: 2023 take 1 tablet by mouth once daily solifenacin 10 mg Tab 10 mg = 1 tab(s), Oral, Daily, # 30 tab(s), Refills(s) 11, Pharmacy: [facility], 167, cm, 09/16/22 15:10:00 EDT, Height/Length Dosing, 120, kg, 09/16/22 15:10:00 EDT, Weight Dosing Start Date: 10/01/23 Status: Ordered Start: 09-16-2022 End: 09-11-2023 take 1 tablet by mouth once daily Vesicare 10 mg Tab 10 mg = 1 tab(s), Oral, Daily, X 30 day(s), # 30 tab(s), Refills(s) 11, Pharmacy: [facility], 167, cm, 09/16/22 15:10:00 EDT, Height/Length Dosing, 120, kg, 09/16/22 15:10:00 EDT, Weight Dosing Start Date: 09/16/22 Stop Date: 09/11/23 Status: Ordered Start: 04-26-2022 take 1 tablet by shannon th once daily Vesicare 5 mg Tab 5 mg = 1 tab(s), Oral, Daily, # 30 tab(s), Refills(s) 11, Pharmacy: [facility], 174, cm, 12/03/21 13:40:00 EDT, Height/Length Dosing, 112, kg, 12/03/21 13:40:00 EDT, Weight Dosing Start Date: 04/26/22 Status: Ordered tamsulosin hydrochloride 0.4 mg oral capsule (20 sources) alpha-Adrenergic Levi Start: 10-01-2023 take 1 capsule by mouth once daily Flomax 0.4 mg Cap 0.4 mg = 1 cap(s), Oral, Daily, # 30 cap(s), Refills(s) 11, Pharmacy: [facility], 167, cm, 09/16/22 15:10:00 EDT, Height/Length Dosing, 120, kg, 09/16/22 15:10:00 EDT, Weight Dosing Start Date: 10/01/23 Status: Ordered Start: 10-31-2022 take 1 capsule by [facility] every twenty-four hours in the [...] Ordered traZODone hydrochloride 100 mg oral tablet (10 sources) Serotonin Reuptake Inhibitor take 1 capsule by mouth at bedtime for depression traZODone (Desyrel) 100 MG tablet TAKE ONE CAPSULE BY MOUTH AT BEDTIME FOR DEPRESSION Active 24 hr trospium chloride 60 mg extended release oral capsule (11 sources) Cholinergic Muscarinic Antagonist Start: 11-13-2023 trospium (Sanctura XR) 60 MG 24 hour capsule Take by mouth Daily 12/08/2023 Active vibegron 75 MG Oral Tablet [Gemtesa] (1 source) Start: 11-11-2023 take 1 tablet by mouth once daily Gemtesa 75 mg oral tablet 75 mg = 1 tab(s), Oral, Daily, # 30 tab(s), Refills(s) 3, Pharmacy: [facility], 167, cm, 11/11/23 13:29:00 EDT, Height/Length Dosing, 120, kg, 11/11/23 13:29:00 EDT, Weight Dosing Start Date: 11/11/23 Status: Ordered Completed/Discontinued Medications Medication Drug Class(es) Dates Sig (Normalized) Sig (Original) azithromycin 500 mg oral tablet (3 sources) Macrolide Antimicrobial Start: 01-29-2024 End: 02-03-2024 take 1 tablet by mouth once daily azithromycin (Zithromax) 500 MG tablet Indications: Localized edema , Acute cough Take 1 tablet (500 mg) by mouth Daily for 5 days 5 tablet 01/29/2024 02/03/2024 candesartan cilexetil 32 mg / hydroCHLOROthiazide 25 mg oral tablet (3 sources) Thiazide Diuretic, Angiotensin 2 Receptor Levi Start: 05-13-2023 End: 12-25-2023 take 1 tablet by mouth in the morning Candesartan Cilexetil-HCTZ 32-25 MG tablet Indications: Essential hypertension (CMS/HCC) Take 1 tablet by mouth in the morning. 100 tablet 2 05/13/2023 12/25/2023 Discontinued doxycycline hyclate 100 mg oral tablet (9 sources) Tetracycline-class Drug End: 01-29-2024 take 1 tablet by mouth in the morning doxycycline (Vibra-Tabs) 100 MG tablet Take 1 tablet by mouth in the morning and 1 tablet before bedtime. 01/29/2024 Discontinued Problems Active Problems Problem Classification Problem Date Documented Date Episodic/Chronic Acute and unspecified renal failure (1 source) Acute kidney failure, unspecified; Translations: [ACUTE KIDNEY FAILURE UNSPECIFIED] Onset: 07-31-2022 Episodic Chronic kidney disease (11 sources) Chronic kidney disease stage 3A ; Translations: [Stage 3a chronic kidney disease (HCC)] Onset: 11-21-2023 12-02-2023 Chronic Chronic obstructive pulmonary disease and bronchiectasis (1 source) Chronic obstructive pulmonary disease, unspecified; Translations: [COPD UNSPECIFIED] Onset: 03-06-2022 Chronic Conduction disorders (20 sources) Other specified heart block; Translations: [Presence of cardiac pacemaker] Onset: 11-15-2023 Chronic Coronary atherosclerosis and other heart disease (13 sources) Atherosclerotic heart disease of [place] coronary artery with unspecified angina pectoris; Translations: [Coronary arteriosclerosis] Onset: 11-15-2023 Chronic Diabetes mellitus with complications (20 sources) Type 2 diabetes mellitus with diabetic neuropathy, unspecified; Translations: [Type 2 diabetes mellitus with other circulatory complications] Onset: 09-04-2016 Resolved: 11-19-2022 11-19-2022 Chronic Diabetes mellitus without complication (20 sources) Diabetes mellitus; Translations: [Type 2 diabetes mellitus without complications] Onset: 07-31-2022 07-17-2020 Chronic Diverticulosis and diverticulitis (20 sources) Diverticulitis; Translations: [Diverticulosis of sigmoid colon] Onset: 10-07-2022 01-17-2021 Chronic Esophageal disorders (12 sources) Gastro-esophageal reflux disease without esophagitis; Translations: [Gastroesophageal reflux disease without esophagitis] Onset: 12-11-2021 10-07-2022 Chronic Essential hypertension (20 sources) Hypertensive disorder; Translations: [Essential (primary) hypertension] Onset: 03-06-2022 01-17-2021 Chronic Fluid and electrolyte disorders (20 sources) Hypernatremia; Translations: [Hyperosmolality and hypernatremia] Onset: 11-21-2023 12-02-2023 Episodic Gastritis and duodenitis (11 sources) Atrophic gastritis; 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] Onset: 10-07-2022 3 Chronic Genitourinary symptoms and ill-defined conditions (14 sources) Urge incontinence; Translations: [Urge incontinence of urine] Onset: 12-03-2021 Chronic Genitourinary symptoms and ill-defined conditions (20 sources) Increased frequency of urination; Translations: [Frequency of micturition] Onset: 09-03-2021 Episodic Hyperplasia of prostate (19 sources) Benign prostatic hypertrophy with outflow obstruction; Translations: [Benign prostatic hyperplasia with lower urinary tract symptoms] Onset: 09-03-2021 Chronic Mood disorders (11 sources) Seasonal affective disorder; Translations: [Other recurrent depressive disorders] Onset: 10-07-2022 10-07-2022 Chronic Mycoses (16 sources) Tinea unguium; Translations: [Onychomycosis due to dermatophyte ] Onset: 11-29-2021 Episodic Other aftercare (1 source) Other terminal operator (current) drug therapy; Translations: [OTH FDC CURRENT DRUG THERAPY] Onset: 07-31-2022 Episodic Other aftercare (1 source) FDC (current) use of oral hypoglycemic drugs; Translations: [FDC USE ORAL HYPOGLYCEMIC DX] Onset: 07-31-2022 Episodic Other connective tissue disease (4 sources) Other muscle spasm; Translations: [OTHER MUSCLE SPASM] Onset: 05-23-2022 Episodic Other connective tissue disease (11 sources) Pain in toe; Translations: [Pain in unspecified toe(s)] Onset: 12-02-2023 12-02-2023 Episodic Other connective tissue disease (11 sources) Swelling of bilateral feet; Translations: [Other specified soft tissue disorders] Onset: 12-02-2023 12-02-2023 Episodic Other diseases of bladder and urethra (2 sources) Other specified disorders of bladder; Translations: [Other specified disorders of bladder] Onset: 11-15-2023 Chronic Other diseases of bladder and urethra (11 sources) Overactive bladder; Translations: [Overactive bladder] Onset: 10-07-2022 10-07-2022 Chronic Other diseases of kidney and ureters (1 source) Urinary tract obstruction; Translations: [Other obstructive and reflux uropathy] Onset: 02-06-2024 Episodic Other diseases of veins and lymphatics [...] cough] 12-25-2023 Episodic Other male genital disorders (11 sources) Secondary erectile dysfunction; Translations: [Male erectile dysfunction, unspecified] Onset: 09-30-2017 11-19-2022 Chronic Other nervous system disorders (9 sources) Neuropathy 01-17-2021 Chronic Other nervous system disorders (1 source) Other chronic pain; Translations: [OTHER CHRONIC PAIN] Onset: 04-18-2022 Chronic Other nervous system disorders (11 sources) Metabolic encephalopathy; Translations: [Metabolic encephalopathy] Onset: 11-21-2023 12-02-2023 Chronic Other nutritional; endocrine; and metabolic disorders (11 sources) Obesity caused by energy imbalance; Translations: [Other obesity due to excess calories] Onset: 11-21-2023 12-02-2023 Chronic Other skin disorders (5 sources) Nail dystrophy; Translations: [NAIL DYSTROPHY] Onset: 04-30-2022 Episodic Other upper respiratory infections (7 sources) Acute laryngitis; Translations: [Acute upper respiratory infection, unspecified] Onset: 03-03-2022 Episodic Residual codes; unclassified (9 sources) Amnesia 01-17-2021 Episodic Residual codes; unclassified (9 sources) Swelling - edema - symptom 01-17-2021 [...] lumbar region] Onset: 12-13-2021 Chronic Substance-related disorders (9 sources) Smoker 01-19-2021 Chronic Comment on above: Added secondary to d ocumentation in Social History. Syncope (13 sources) Syncope and collapse; Translations: [Syncope and collapse] Onset: 11-15-2023 Episodic Unclassified (9 sources) Finding of sensation of bladder 01-19-2021 [...] OF COVID-19] Onset: 03-06-2022 Unclassified (1 source) SENIOR COMMISSIONS ANALYST INJECT NONINSULN ANTIDIAB; Translations: [SENIOR COMMISSIONS ANALYST INJECT NONINSULN ANTIDIAB] Onset: 03-02-2022 Unclassified (2 sources) Admission Requirement; Translations: [Admission Requirement] Onset: 11-30-2023 Past or Other Problems Problem Classification Problem Date Documented Da te Episodic/Chronic Biliary tract disease (11 sources) Cholelithiasis without obstruction; Translations: [Calculus of gallbladder without cholecystitis without obstruction] Onset: 10-07-2022 10-07-2022 Episodic Mood disorders (11 sources) Mood disorders Onset: 04-23-2023 04-23-2023 Other aftercare (11 sources) Long-term current use of insulin; Translations: [FDC (current) use of insulin] Onset: 07-23-2017 Resolved: 04-23-2023 04-23-2023 Episodic Other connective tissue disease (20 sources) Calcaneal spur; Translations: [Calcaneal spur, unspecified foot] Onset: 09-04-2016 01-17-2021 Episodic Other connective tissue disease (1 source) Muscle wasting and atrophy, not elsewhere classified, unspecified site; Translations: [MUSCLE WASTING ATROPHY NEC UNS SITE] Onset: 10-04-2021 Episodic Other diseases of veins and lymphatics (1 source) Venous insufficiency (chronic) (peripheral); Translations: [VENOUS INSUFF CHRONIC PERIPHERAL] Onset: 12-11-2021 Episodic Other gastrointestinal disorders (11 sources) Constipation; Translations: [Constipation, unspecified] Onset: 01-31-2020 11-19-2022 Episodic Other lower respiratory disease (20 sources) Nodule of lung; Translations: [Solitary pulmonary nodule] Onset: 10-07-2022 01-17-2021 Episodic Other nervous system disorders (11 sources) Impaired cognition; Translations: [Other symptoms and signs involving cognitive functions and awareness] Onset: 10-07-2022 10-07-2022 Episodic Other nervous system disorders (11 sources) Ataxic gait; Translations: [Ataxic gait] Onset: [...] EDEMA] Onset: 04-30-2022 Episodic Residual codes; unclassified (11 sources) Insomnia; Translations: [Insomnia, unspecified] Onset: 10-07-2022 10-07-2022 Episodic Residual codes; unclassified (15 sources) Localized edema; Translations: [Localized edema] Onset: [...] Test Name Value Interpretation Reference Range Facility BLOOD CULTURE 1on 02-06-2024 BLOOD CULTURE 1 Blood Culture 1 NG5D NO GROWTH AT 5 DAYS.^NO GROWTH AT 5 DAYS. [facility] LEFT AC [facility] BLOOD CULTURE 2on 02-06-2024 BLOOD CULTURE 2 Blood Culture 2 NG5D NO GROWTH AT 5 DAYS.^NO GROWTH AT 5 DAYS. [facility] 1002 CLIN[facility] No Panel Informationon 02-05 [facility] Basic Metabolic Profon 12-04 Anion gap [Moles/Vol] 9 mmol/L Normal 9-16 [facility] Comment on above: Performed By: #### B MP #### [facility] [address] [place] [address] Methods Time Analyst: Eliud Leonard MD BUN/CRE Ratio 20 Normal 9-20 [facility] Comment on above: Performed By: #### B MP #### [facility] [address] [place] [address] Methods Time Analyst: Eliud Leonard MD Calcium [Mass/Vol] 8.5 mg/dL Low 8.6-10.4 [facility] Comment on above: Performed By: #### B MP #### [facility] [address] [place] [address] Methods Time Analyst: Eliud Leonard MD Chloride [Moles/Vol] 108 mmol/L High 98-107 [facility] Comment on above: Performed By: #### B MP #### [facility] [address] [place] [address] Methods Time Analyst: Eliud Leonard MD CO2 [Moles/Vol] 26 mmol/L Normal 20-31 [facility] Comment on above: Performed By: #### B MP #### [facility] [address] [place] [address] Methods Time Analyst: Eliud Leonard MD Creatinine [Mass/Vol] 1.6 mg/dL High 0.70-1.20 [facility] Comment on above: Performed By: #### B MP #### [facility] [address] [place] [address] Methods Time Analyst: Eliud Leonard MD GFR/1.73 sq M.predicted among non-blacks MDRD (S/P/Bld) [Vol rate/Area] 41 mL/min/{1.73_m2} Low >60 [facility] Comment on above: Result Comment: These results [...] secretion. Performed By: #### B MP #### [facility] [address] [place] [address] Methods Time Analyst: Eliud Leonard MD Glucose [Mass/Vol] 66 mg/dL Low 74-99 [facility] Comment on above: Performed By: #### B MP #### [facility] [address] [place] [address] Methods Time Analyst: Eliud Leonard MD Potassium [Moles/Vol] 4.3 mmol/L Normal 3.7-5.3 [facility] Comment on above: Performed By: #### B MP #### [facility] [address] [place] [address] Methods Time Analyst: Eliud Leonard MD Sodium [Moles/Vol] 143 mmol/L Normal 136-145 [facility] Comment on above: Performed By: #### B MP #### [address] [place] [address] Methods Time Analyst: Eliud Leonard MD Urea nitrogen [Mass/Vol] 32 mg/dL High 8-23 [facility] Comment on above: Performed By: #### B MP #### [facility] [address] [place] [address] [place], [place] [id number] Methods Time Analyst: Eliud Leonard MD Cult,Urineon 12-01-2023 Cult,Urine Specimen Description .CLEAN CATCH URINE Culture NO SIGNIFICANT GROWTH Report Status FINAL 12/01/2023 Normal [facility] Comment on above: Performed By: #### U RC #### [address] [id number] Methods Time Analyst: Dari[place] MD [address] [place], [place] [id number] Methods Time Analyst: Eliud Leonard MD Urinalysis, Routineon 2023 Bilirubin, SemiQt,Ur Negative Normal NEG [facility] Comment on above: Performed By: #### U A #### [address] [place], [place] [id number] Methods Time Analyst: Eliud Leonard MD Blood, Urine Negative Normal NEG [facility] Comment on above: Performed By: #### U A #### [facility] [address] [place] [address] Dr. [place], [place] [id number] Methods Time Analyst: Eliud Leonard MD Clarity (U) Clear Normal CLEAR [facility] Comment on above: Performed By: #### U A #### [address] [place] [address] Methods Time Analyst: Eliud Leonard MD Color (U) Yellow Normal YEL [facility] Comment on above: Performed By: #### U A #### [facility] [address] [place] [address] [place] [address] Methods Time Analyst: Eliud Leonard MD Glucose Ql (U) Negative Normal NEG [facility] in Hospital Comment on above: Performed By: #### U A #### [facility] [address] [place] [address] [place] [address] Methods Time Analyst: Eliud Leonard MD Ketones Ql (U) Negative Normal NEG [facility] in Hospital Comment on above: Performed By: #### U A #### [facility] [address] [place] [address] [place] [address] Methods Time Analyst: Eliud Leonard MD Leukocyte esterase Test strip Ql (U) Negative Normal NEG [facility] Comment on above: Performed By: #### U A #### [address] [place] [address] Methods Time Analyst: Eliud Leonard MD Nitrite,Ur Negative Normal NEG [facility] Comment on above: Performed By: #### U A #### [facility] [address] [place] [address] [place] [address] Methods Time Analyst: Eliud Leonard MD PH,Ur 6.0 Normal 5.0-9.0 [facility] Comment on above: Performed By: #### U A #### [facility] [address] [place] [address] [place] [address] Methods Time Analyst: Eliud Leonard MD Protein Ql (U) Negative Normal NEG [facility] Hospital Comment on above: Performed By: #### U A #### [facility] [address] [place] [address] [place] [address] Methods Time Analyst: Eliud Leonard MD Spec. [place],Ur 1.020 Normal 1.010-1.020 [facility] Comment on above: Performed By: #### U A #### [facility] [address] [place] [address] [place] [address] Methods Time Analyst: Eluid Leonard MD Urobilinogen,Ur Normal Normal 0.0-1.0 [facility] Comment on above: Performed By: #### U A #### [facility] [address] [place] [address] Methods Time Analyst: Eliud Leonard MD CT CERVICAL SPINE WO [...] midline. The ventricles and peripheral sulci are zrhv-pu-ehnblfqhxw dilated. There is decreased attenuation in the [...] Deacon Justice MD 11/28/23 Final result Normal [facility] CT HEAD WO CONTRASTon 2023 CT HEAD [...] midline. The ventricles and peripheral sulci are fjla-zh-cfwfbhebce dilated. There is decreased attenuation in the [...] Deacon Justice MD 11/28/23 Final result Normal [facility] 30on 11-22-2023 30 The patient is Moderately [...] and maintained or improved Outcome: Progressing Normal [facility] BASIC METABOLIC PANELon 08-3 Anion gap [Moles/Vol] 10 mmol/L Normal 7-20 [facility] Comment on above: Performed By: #### L [id number] ####[facility] [place] [address] Calcium [Mass/Vol] 8.0 mg/dL Low 8.6-10.3 [facility] Comment on above: Performed By: #### L [id number] ####[facility] ([facility])[address] [place] [address] Chloride [Moles/Vol] 111 mmol/L High 98-107 [facility] Comment on above: Performed By: #### L [id number] ####[facility] ([facility])[address] [place] [address] CO2 [Moles/Vol] 29 mmol/L Normal 21-31 [facility] Comment on above: Performed By: #### L [id number] ####[facility] ([facility])[address] [place] [address] Creatinine [Mass/Vol] 1.36 mg/dL High 0.70-1.30 [facility] Comment on above: Performed By: #### L [id number] ####[facility] ([facility])[address] [place] [address] GLOMERULAR FILTRATION RATE ML/MIN/1.73 SQ M.PREDICTED 51.0 mL/min/1.73m*2 Low >60.0 [facility] Comment on above: Result Comment: [facility]???s estimated glomerular filtration rate (eGFR) will no [...] of individuals. Performed By: #### L [id number] ####[facility] ([facility])[address] [place] [address] Glucose [Mass/Vol] 150 mg/dL High 70-100 [facility] Comment on above: Performed By: #### L [id number] ####[facility] ([facility])[address] [place] [address] Potassium [Moles/Vol] 3.3 mmol/L Low 3.5-5.1 [facility] Comment on above: Performed By: #### L [id number] ####[facility] ([facility])[address] [place] [address] Sodium [Moles/Vol] 147 mmol/L High 136-145 [facility] Comment on above: Performed By: #### L [id number] ####[facility] ([facility])[address] [place] [address] Urea nitrogen [Mass/Vol] 25 mg/dL Normal 7-25 [facility] Comment on above: Performed By: #### L [id number] ####[facility] ([facility])[address] [place] [address] UREA NITROGEN/CREATININ E (MASS RATIO) IN SER/PLAS 18.4 Normal [facility] Comment on above: Performed By: #### L [id number] ####[facility] ([facility])[address] [place] [address] CBC WITH AUTO DIFFERENTIALon 11-22-2023 Basophils (Bld) [#/Vol] 0.06 10*3/uL Normal 0.00-0.20 [facility] Comment on above: Performed By: #### L [id number] ####[facility] ([facility])[address] [place] [address] Basophils/100 WBC (Bld) 0.7 % Normal 0.0-1.0 [facility] Comment on above: Performed By: #### L [id number] ####[facility] ([facility])[address] [place] [address] Eosinophils (Bld) [#/Vol] 0.37 10*3/uL Normal 0.00-0.50 [facility] Comment on above: Performed By: #### L [id number] ####[facility] [place] [address] Eosinophils/100 WBC (Bld) 4.2 % Normal 0.0-6.0 [facility] Comment on above: Performed By: #### L [id number] ####[facility] ([facility])[address] [place] [address] Erythrocyte distribution width (RBC) [Ratio] 15.2 % High 11.5-15.0 [facility] Comment on above: Performed By: #### L [id number] ####[facility] ([facility])[address] [place] [address] ERYTHROCYTE MEAN CORPUSCULAR HEMOGLOBIN CONCENTRATION (G/DL) BY AUTOMATED 32.6 g/dL Normal 32.0-35.0 [facility] Comment on above: Performed By: #### L [id number] ####[facility] ([facility])[address] [place] [address] Hematocrit (Bld) [Volume fraction] 38.3 % Low 39.0-55.0 [facility] Comment on above: Performed By: #### L [id number] ####[facility] [place] [address] Hemoglobin (Bld) [Mass/Vol] 12.5 g/dL Low 13.0-17.0 [facility] Comment on above: Performed By: #### L [id number] ####[facility] [place] [address] Immature granulocytes (Bld) [#/Vol] 0.15 10*3/uL Normal 0.00-0.20 [facility] Comment on above: Performed By: #### L [id number] ####[facility] ([facility])[address] [place] [address] Immature granulocytes/100 WBC (Bld) 1.7 % High 0.0-1.0 [facility] Comment on above: Performed By: #### L [id number] ####[facility] ([facility])[address] [place] [address] Lymphocytes (Bld) [#/Vol] 1.19 10*3/uL Low 1.20-4.00 [facility] Comment on above: Performed By: #### L [id number] ####[facility] ([facility])[address] [place] [address] Lymphocytes/100 WBC (Bld) 13.6 % Low 20.0-45.0 [facility] Comment on above: Performed By: #### L [id number] ####[facility] ([facility])[address] [place] [address] MCH (RBC) [Entitic mass] 32.4 pg Normal 27.0-33.0 [facility] Comment on above: Performed By: #### L [id number] ####[facility] ([facility])[address] [place] [address] MCV (RBC) [Entitic vol] 99.2 fL High 82.0-98.0 [facility] Comment on above: Performed By: #### L [id number] ####[facility] ([facility])[address] [place] [address] Monocytes (Bld) [#/Vol] 0.93 10*3/uL Normal 0.10-1.00 [facility] Comment on above: Performed By: #### L [id number] ####[facility] ([facility])[address] [place] [address] Monocytes/100 WBC (Bld) 10.6 % Normal 5.0-12.0 [facility] Comment on above: Performed By: #### L [id number] ####[facility] ([facility])[address] [place] [address] Neutrophils (Bld) [#/Vol] 6.06 10*3/uL Normal 1.60-7.60 [facility] Comment on above: Performed By: #### L [id number] ####[facility] ([facility])[address] [place] [address] Neutrophils/100 WBC (Bld) 69.2 % Normal 40.0-72.0 [facility] Comment on above: Performed By: #### L [id number] ####[facility] ([facility])[address] [place] [address] NRBC (PER 100 WBCS) BY AUTOMATED COUNT 0.0 % Normal 0 [facility] Comment on above: Performed By: #### L [id number] ####[facility] ([facility])[address] [place] [address] PLATELETS (10*3/UL) IN BLOOD AUTOMATED COUNT 167 10*3/uL Normal 150-400 [facility] Comment on above: Performed By: #### L [id number] ####[facility] ([facility])[address] [place] [address] RBC (Bld) [#/Vol] 3.86 10*6/uL Low 4.20-5.70 [facility] Comment on above: Performed By: #### L [id number] ####[facility] ([facility])[address] [place] [address] WBC (Bld) [#/Vol] 8.76 10*3/uL Normal 4.00-10.60 [facility] Comment on above: Performed By: #### L [id number] ####[facility] ([facility])[address] [place] [address] 30on 11-21-2023 30 The patient is Moderately Stable - Low risk of patient condition declining or worsening The patient's goals for the shift include rest/comfort The clinical goals for the shift include VSS Problem: Pain - Adult Goal: Verbalizes/displays adequate comfort level or baseline comfort level Outcome: Progressing Problem: Safety - Adult Goal: Free from fall injury Outcome: Progressing Normal [facility] 30 The patient is Moderately Stable - [...] and maintained or improved Outcome: Progressing Normal [facility] BASIC METABOLIC PANELon 08-3 -2023 Anion gap [Moles/Vol] 9 mmol/L Normal 7-20 [facility] Comment on above: Performed By: #### L [id number] ####[facility] ([facility])[address] [email or web address] [address] Calcium [Mass/Vol] 8.0 mg/dL Low 8.6-10.3 [facility] Comment on above: Performed By: #### L [id number] ####[facility] ([facility])[address] [facility] [place] [address] Chloride [Moles/Vol] 113 mmol/L High 98-107 [facility] Comment on above: Performed By: #### L [id number] ####[facility] ([facility])[address] [facility] [place] [address] CO2 [Moles/Vol] 27 mmol/L Normal 21- [facility] Comment on above: Performed By: #### L [id number] ####[facility] ([facility])[address] [email or web address] [address] Creatinine [Mass/Vol] 1.47 mg/dL High 0.70-1.30 [facility] Comment on above: Performed By: #### L [id number] ####[facility] ([facility])[address] [email or web address] [address] GLOMERULAR FILTRATION RATE ML/MIN/1.73 SQ M.PREDICTED 46.5 mL/min/1.73m*2 Low >60.0 [facility] Comment on above: Result Comment: [facility]???s estimated glomerular filtration rate (eGFR) will no [...] of individuals. Performed By: #### L [id number] ####[facility] ([facility])[address] [facility] [place] [address] Glucose [Mass/Vol] 135 mg/dL High 70-100 [facility] Comment on above: Performed By: #### L [id number] ####[facility] ([facility])[address] [facility] [place] [address] Potassium [Moles/Vol] 3.3 mmol/L Low 3.5-5.1 [facility] Comment on above: Performed By: #### L [id number] ####[facility] ([facility])[address] [place] [address] Sodium [Moles/Vol] 146 mmol/L High 136-145 [facility] Comment on above: Performed By: #### L [id number] ####[facility] ([facility])[address] [place] [address] Urea nitrogen [Mass/Vol] 35 mg/dL High 7-25 [facility] Comment on above: Performed By: #### L [id number] ####[facility] ([facility])[address] [place] [address] UREA NITROGEN/CREATININ E (MASS RATIO) IN SER/PLAS 23.8 Normal [facility] Comment on above: Performed By: #### L [id number] ####[facility] ([facility])[address] [place] [address] CBCon 11-21-2023 Erythrocyte distribution width (RBC) [Ratio] 15.3 % High 11.5-15.0 [facility] Comment on above: Performed By: #### L [id number] ####[facility] ([facility])[address] [place] [address] ERYTHROCYTE MEAN CORPUSCULAR HEMOGLOBIN CONCENTRATION (G/DL) BY AUTOMATED 32.7 g/dL Normal 32.0-35.0 [facility] Comment on above: Performed By: #### L [id number] ####[facility] ([facility])[address] [place], [place] [address] Hematocrit (Bld) [Volume fraction] 38.5 % Low 39.0-55.0 [facility] Comment on above: Performed By: #### L [id number] ####[facility] ([facility])[address] [place] [address] Hemoglobin (Bld) [Mass/Vol] 12.6 g/dL Low 13.0-17.0 [facility] Comment on above: Performed By: #### L [id number] ####[facility] ([facility])[address] [place] [address] MCH (RBC) [Entitic mass] 32.1 pg Normal 27.0-33.0 [facility] Comment on above: Performed By: #### L [id number] ####[facility] ([facility])[address] [place] [address] MCV (RBC) [Entitic vol] 98.2 fL High 82.0-98.0 [facility] Comment on above: Performed By: #### L [id number] ####[facility] ([facility])[address] [place] [address] PLATELETS (10*3/UL) IN BLOOD AUTOMATED COUNT 172 10*3/uL Normal 150-400 [facility] Comment on above: Performed By: #### L [id number] ####[facility] ([facility])[address] [place] [address] RBC (Bld) [#/Vol] 3.92 10*6/uL Low 4.20-5.70 [facility] Comment on above: Performed By: #### L [id number] ####[facility] ([facility])[address] [place] [address] WBC (Bld) [#/Vol] 9.67 10*3/uL Normal 4.00-10.60 [facility] Comment on above: Performed By: #### L [id number] ####[facility] ([facility])[address] [place] [address] 30on 11-20-2023 30 The patient is Moderately Stable - Low risk of patient condition declining or worsening The patient's goals for the shift include restraints off The clinical goals for the shift include stable hemodynamics Over the shift, the patient did not make progress toward the following goals. [facility] 30 Daily Case Managemen t Update Multidisciplinary [...] OT Six Click Score: 8 PT Recommendations: [facility] facility placement OT Recommendations: [facility] facility placement New Consults: Ancillary Consults (From [...] OT? Answer: eval and treat 11/19/23 0756 [facility] CONSULTon 11-20-2023 CONSULT -- Attestation signed by Juan Pablo Liz MD at 11/21/2023 12:08 PM As noted. Patient to be staffed in person on 11/20 Psychiatry Consultation Service - New Assessment Patient Name: Nat Moore MRN / CSN: [id number] Date of / Age: 2 1940 / [...] mild cognitive impairment originally presenting to the [facility] Emergency Room on 11/15/2023 for evaluation of recurrent episodes of syncope secondary to spontaneous prolonged sinus pause. The patient was transferred via air ambulance from the [facility]. Psychiatry was consulted for management of agitation secondary to dementia . Emergency Room Course: Imaging/Workup: On arrival to [facility] the patient's blood pressure was 158/72 mmHg, pulse rate 78 bpm, regular, SpO2 100% on room air, respiratory rate 20/min, temperature 97.2. 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 CT of the abdomen with contrast done at [facility] showed nonobstructive bowel gas pattern with [...] would con (more content not included)... Normal [facility] NURSNOTEon 11-20-2023 NURSNOTE Patient Name: Nat Moore [...] voiced no concerns at this time. The insurance underwriter urged the primary RN to call the rapid team if any concerns arise overnight. Chevy Hines, MIGUEL Rapid Response Team Nurse [phone] 11/20/2023 11:34 PM Normal [facility] 30on 11-19-2023 30 Daily Case Managemen t Update Multidisciplinary rounds have been completed. Barriers to Discharge: 11/18- patient here from [facility] for recurrent episodes of syncope secondary to spontaneous prolonged sinus pauses. During his stay in [facility] he suddenly developed bradycardia prolonged sinus [...] Answer: eval and treat 11/19/23 0756 Normal [facility] BASIC METABOLIC PANELon 10-23 Anion gap [Moles/Vol] 11 mmol/L Normal 7-20 [facility] Comment on above: Performed By: #### L [id number] ####[facility] ([facility])[address] [place] [address] Calcium [Mass/Vol] 8.0 mg/dL Low 8.6-10.3 [facility] Comment on above: Performed By: #### L [id number] ####[facility] ([facility])[address] [place] [address] Chloride [Moles/Vol] 112 mmol/L High 98-107 [facility] Comment on above: Performed By: #### L [id number] ####[facility] ([facility])[address] [place] [address] CO2 [Moles/Vol] 26 mmol/L Normal 21-31 [facility] Comment on above: Performed By: #### L [id number] ####[facility] ([facility])[address] [place] [address] Creatinine [Mass/Vol] 1.69 mg/dL High 0.70-1.30 [facility] Comment on above: Performed By: #### L [id number] ####[facility] ([facility])[address] [place] [address] GLOMERULAR FILTRATION RATE ML/MIN/1.73 SQ M.PREDICTED 39.3 mL/min/1.73m*2 Low >60.0 [facility] Comment on above: Result Comment: [facility]???s estimated glomerular filtration rate (eGFR) will no [...] of individuals. Performed By: #### L [id number] ####[facility] [place] [address] Glucose [Mass/Vol] 122 mg/dL High 70-100 [facility] Comment on above: Performed By: #### L [id number] ####[facility] [place] [address] Potassium [Moles/Vol] 3.5 mmol/L Normal 3.5-5.1 [facility] Comment on above: Performed By: #### L [id number] ####[facility] ([facility])[address] [place] [address] Sodium [Moles/Vol] 145 mmol/L Normal 136-145 [facility] Comment on above: Performed By: #### L [id number] ####[facility] ([facility])[address] [place] [address] Urea nitrogen [Mass/Vol] 49 mg/dL High 7-25 [facility] Comment on above: Performed By: #### L [id number] ####[facility] [place] [address] UREA NITROGEN/CREATININ E (MASS RATIO) IN SER/PLAS 29.0 Normal [facility] Comment on above: Performed By: #### L [id number] ####[facility] ([facility])[address] [place] [address] CBCon 11-19-2023 Erythrocyte distribution width (RBC) [Ratio] 15.0 % Normal 11.5-15.0 [facility] Comment on above: Performed By: #### L [id number] #### [facility] ([facility]) [address] [place] [address] ERYTHROCYTE MEAN CORPUSCULAR HEMOGLOBIN CONCENTRATION (G/DL) BY AUTOMATED 32.8 g/dL Normal 32.0-35.0 [facility] Comment on above: Performed By: #### L [id number] #### [facility] ([facility]) [address] [place] [address] Hematocrit (Bld) [Volume fraction] 38.7 % Low 39.0-55.0 [facility] Comment on above: Performed By: #### L [id number] #### [facility] [address] [place] [address] Hemoglobin (Bld) [Mass/Vol] 12.7 g/dL Low 13.0-17.0 [facility] Comment on above: Performed By: #### L [id number] #### [facility] ([facility]) [address] [place] [address] MCH (RBC) [Entitic mass] 31.8 pg Normal 27.0-33.0 [facility] Comment on above: Performed By: #### L [id number] #### [place] [facility] ([facility]) [address] [place] [address] MCV (RBC) [Entitic vol] 97.0 fL Normal 82.0-98.0 [facility] Comment on above: Performed By: #### L [id number] #### [facility] ([facility]) [address] [place] [address] PLATELETS (10*3/UL) IN BLOOD AUTOMATED COUNT 148 10*3/uL Low 150-400 [facility] Comment on above: Performed By: #### L [id number] #### [facility] ([facility]) [address] [place] [address] RBC (Bld) [#/Vol] 3.99 10*6/uL Low 4.20-5.70 [facility] Comment on above: Performed By: #### L [id number] #### [facility] ([facility]) [address] [place] [address] WBC (Bld) [#/Vol] 7.82 10*3/uL Normal 4.00-10.60 [facility] Comment on above: Performed By: #### L [id number] #### [facility] ([facility]) [address] [place] [address] [facility] 11-17-2023 NITINS -- Attestation signed by Sam Oscar MD [...] Information Date: 11/17/23 Procedure: Implant PPM Location: [facility]ASCULAR [facility] (Cath) Providers: Nora Rivera MD Clinical information reviewed: Allergies Meds Physical Exam Airway Mallampati: III Cardiovascular Rhythm: regular Rate: normal Dental Pulmonary Breath sounds clear to auscultation Abdominal Abdomen: soft Anesthesia Plan Additional Equipment Requests Normal [facility] BASIC METABOLIC PANELon - Anion gap [Moles/Vol] 11 mmol/L Normal 7-20 [facility] Comment on above: Performed By: #### L [id number] #### [facility] (AKER) [address] [place] [address] Calcium [Mass/Vol] 8.0 mg/dL Low 8.6-10.3 [facility] Comment on above: Performed By: #### L [id number] #### [facility] ([facility] [address] [place] [address] Chloride [Moles/Vol] 109 mmol/L High 98-107 [facility] Comment on above: Performed By: #### L [id number] #### [facility] (BEAKER) [address] [place] [address] CO2 [Moles/Vol] 25 mmol/L Normal 21-31 [facility] Comment on above: Performed By: #### L [id number] #### [facility] ([facility]) [address] [place] [address] Creatinine [Mass/Vol] 1.42 mg/dL High 0.70-1.30 [facility] Comment on above: Performed By: #### L [id number] #### [facility] ([facility]) [address] [place] [address] GLOMERULAR FILTRATION RATE ML/MIN/1.73 SQ M.PREDICTED 48.4 mL/min/1.73m*2 Low >60.0 [facility] Comment on above: Result Comment: [facility]???s estimated glomerular filtration rate (eGFR) will no [...] individuals. Performed By: #### L [id number] #### [facility] ([facility]) [address] [place] [address] Glucose [Mass/Vol] 169 mg/dL High 70-100 [facility] Comment on above: Performed By: #### L [id number] #### [facility] ([facility]) [address] [place] [address] Potassium [Moles/Vol] 4.3 mmol/L Normal 3.5-5.1 [facility] Comment on above: Performed By: #### L [id number] #### [facility] ([facility]) [address] [place] [address] Sodium [Moles/Vol] 141 mmol/L Normal 136-145 [facility] Comment on above: Performed By: #### L [id number] #### [facility] ([facility]) [address] [place] [address] Urea nitrogen [Mass/Vol] 33 mg/dL High 7-25 [facility] Comment on above: Performed By: #### L [id number] #### [facility] ([facility]) [address] [place] [address] UREA NITROGEN/CREATININ E (MASS RATIO) IN SER/PLAS 23.2 Normal [facility] Comment on above: Performed By: #### L [id number] #### [facility] ([facility]) [address] [place] [address] CBCon 11-17-2023 Erythrocyte distribution width (RBC) [Ratio] 14.9 % Normal 11.5-15.0 [facility] Comment on above: Performed By: #### L [id number] #### [facility] ([facility]) [address] [place] [address] ERYTHROCYTE MEAN CORPUSCULAR HEMOGLOBIN CONCENTRATION (G/DL) BY AUTOMATED 32.2 g/dL Normal 32.0-35.0 [facility] Comment on above: Performed By: #### L [id number] #### [facility] ([facility]) [address] [place] [address] Hematocrit (Bld) [Volume fraction] 39.5 % Normal 39.0-55.0 [facility] Comment on above: Performed By: #### L [id number] #### [facility] ([facility]) [address] [place] [address] Hemoglobin (Bld) [Mass/Vol] 12.7 g/dL Low 13.0-17.0 [facility] Comment on above: Performed By: #### L [id number] #### [facility] ([facility]) [address] [place] [address] MCH (RBC) [Entitic mass] 31.8 pg Normal 27.0-33.0 [facility] Comment on above: Performed By: #### L [id number] #### [facility] ([facility]) [address] [place] [address] MCV (RBC) [Entitic vol] 99.0 fL High 82.0-98.0 [facility] Comment on above: Performed By: #### L [id number] #### [facility] ([facility]) [address] [place] [address] PLATELETS (10*3/UL) IN BLOOD AUTOMATED COUNT 157 10*3/uL Normal 150-400 [facility] Comment on above: Performed By: #### L [id number] #### [facility] ([facility]) [address] [place] [address] RBC (Bld) [#/Vol] 3.99 10*6/uL Low 4.20-5.70 [facility] Comment on above: Performed By: #### L [id number] #### [facility] ([facility]) [address] [place] [address] WBC (Bld) [#/Vol] 9.04 10*3/uL Normal 4.00-10.60 [facility] Comment on above: Performed By: #### L [id number] #### [facility] ([facility]) [address] [place] [address] HEMOGLOBIN A1Con 11-17-2023 Glucose [Mass/Vol] 114 mg/dL Normal [facility] Comment on above: Order Comment: NO VA RIANT Performed By: #### L [id number] ####[facility] ([facility] [address] HbA1c (Bld) [Mass fraction] 5.6 % Normal 4.0-6.0 [facility] Comment on above: Order Comment: NO VA RIANT Performed By: #### L [id number] ####[facility] ([facility])[address] [place] [address] HPon 11-17-2023 HP -- Attestation signed by [...] placement of PPM in the AM. Normal [facility] LIPID PANELon 11-17-2023 CHOL/HDL 3.8 mg/dL Normal [facility] Comment on above: Performed By: #### L [id number] ####[facility] ([facility])[address] [place] [address] Cholesterol [Mass/Vol] 127 mg/dL Normal 120-200 [facility] Comment on above: Performed By: #### L [id number] ####[facility] ([facility])[address] [place] [address] Magnesium [Mass/Vol] 81 mg/dL Normal 40-149 [facility] Comment on above: Result Comment: TRIG LYCERIDE REFERENCE RANGE: 20 YEARS AND OLDER CARDIOVASCULAR RISK LESS THAN 150 mg/dL LOW RISK 150 TO 199 mg/dL BORDERLINE RISK 200 mg/dL AND GREATER HIGH RISK Performed By: #### L [id number] ####[facility] ([facility])[address] [place] [address] Magnesium [Mass/Vol] 78 mg/dL Normal 0-160 [facility] Comment on above: Performed By: #### L [id number] ####[facility] ([facility])[address] [place] [address] Magnesium [Mass/Vol] 33 mg/dL Normal 23-92 [facility] Comment on above: Performed By: #### L [id number] ####[facility] ([facility])[address] [place] [address] NON HDL CHOL. (LDL+VLDL) 94 Normal [facility] Comment on above: Performed By: #### L [id number] ####[facility] ([facility])[address] [place] [address] TOTAL VLDL-C 16 mg/dL Normal 0-40 [facility] Comment on above: Performed By: #### L [id number] ####[facility] ([facility])[address] [place] [address] LIPOPROTEIN A (LPA)on 2023 Magnesium [Mass/Vol] 23 mg/dL Normal <=29 [facility] Comment on above: Result Comment: Perf ormed By: [employer] [address] [place] [id number] [employer]: Rivas Castillo MD, PhD CLIA Number: [id number] Performed By: #### L [id number] #### [facility] ([facility]) [address] [place] [address] MAGNESIUMon 11-17-2023 Magnesium [Mass/Vol] 2.0 mg/dL Normal 1.9-2.7 [facility] Comment on above: Performed By: #### L [id number] ####[facility] ([facility])[address] [place] [address] PHOSPHORUSon 11-17-2023 Magnesium [Mass/Vol] 3.1 mg/dL Normal 2.5-5.0 [facility] Comment on above: Performed By: #### L [id number] #### [facility] ([facility]) [address] [facility] [place] [address] 30on 11-16-2023 30 The patient is Moderately [...] or at baseline Outcome: Not Progressing Normal [facility] ANESon 11-16-2023 ANES Patient: Nat Moore Choose [...] Equipment Requests Jovita Sanchez MD, MPH, [facility], [facility], [facility] Interventional Cardiology Pager Email: [email or web address] Normal [facility] B-TYPE NATRIURETIC PEPTIDEon 11-16-2023 Natriuretic peptide B (Bld) [Mass/Vol] 103 pg/mL High 0-100 [facility] Comment on above: Performed By: #### L [id number] #### [facility] ([facility]) [address] [place] [address] BASIC METABOLIC PANELon 10-23 Anion gap [Moles/Vol] 10 mmol/L Normal 7-20 [facility] Comment on above: Performed By: #### L [id number] #### [facility] ([facility]) [address] [place] [address] Calcium [Mass/Vol] 8.2 mg/dL Low 8.6-10.3 [facility] Comment on above: Performed By: #### L [id number] #### [facility] ([facility]) [address] [place] [address] Chloride [Moles/Vol] 108 mmol/L High 98-107 [facility] Comment on above: Performed By: #### L [id number] #### [facility] ([facility]) [address] [place] [address] CO2 [Moles/Vol] 27 mmol/L Normal 21-31 [facility] Comment on above: Performed By: #### L [id number] #### [facility] ([facility]) [address] [place] [address] Creatinine [Mass/Vol] 1.53 mg/dL High 0.70-1.30 [facility] Comment on above: Performed By: #### L [id number] #### [facility] ([facility]) [address] [place] [address] GLOMERULAR FILTRATION RATE ML/MIN/1.73 SQ M.PREDICTED 44.3 mL/min/1.73m*2 Low >60.0 [facility] Comment on above: Result Comment: [facility]???s estimated glomerular filtration rate (eGFR) will no [...] individuals. Performed By: #### L [id number] #### [facility] ([facility]) [address] [place] [address] Glucose [Mass/Vol] 124 mg/dL High 70-100 [facility] Comment on above: Performed By: #### L [id number] #### [facility] ([facility]) [address] [place] [address] Potassium [Moles/Vol] 4.3 mmol/L Normal 3.5-5.1 [facility] Comment on above: Performed By: #### L [id number] #### [facility] ([facility]) [address] [place] [address] Sodium [Moles/Vol] 141 mmol/L Normal 136-145 [facility] Comment on above: Performed By: #### L [id number] #### [facility] ([facility]) [address] [place] [address] Urea nitrogen [Mass/Vol] 31 mg/dL High 7-25 [facility] Comment on above: Performed By: #### L [id number] #### [facility] ([facility]) [address] [place] [address] UREA NITROGEN/CREATININ E (MASS RATIO) IN SER/PLAS 20.3 Normal [facility] Comment on above: Performed By: #### L [id number] #### [facility] (BE[facility]) [address] [place] [address] Anion gap [Moles/Vol] 10 mmol/L Normal 7-20 [facility] Comment on above: Performed By: #### L [id number] #### [facility] (BEAKER) [address] [place] [address] Calcium [Mass/Vol] 8.1 mg/dL Low 8.6-10.3 [facility] Comment on above: Performed By: #### L [id number] #### [facility] (BEAKER) [address] [place] [address] Chloride [Moles/Vol] 108 mmol/L High 98-107 [facility] Comment on above: Performed By: #### L [id number] #### [facility] ([facility]) [address] [place] [address] CO2 [Moles/Vol] 27 mmol/L Normal 21-31 [facility] Comment on above: Performed By: #### L [id number] #### [facility] ([facility]) [address] [place] [address] Creatinine [Mass/Vol] 1.40 mg/dL High 0.70-1.30 [facility] Comment on above: Performed By: #### L [id number] #### [facility] ([facility]) [address] [place] [address] GLOMERULAR FILTRATION RATE ML/MIN/1.73 SQ M.PREDICTED 49.3 mL/min/1.73m*2 Low >60.0 [facility] Comment on above: Result Comment: [facility]???s estimated glomerular filtration rate (eGFR) will no [...] individuals. Performed By: #### L [id number] #### [facility] ([facility]) [address] [place] [address] Glucose [Mass/Vol] 136 mg/dL High 70-100 [facility] Comment on above: Performed By: #### L [id number] #### [facility] ([facility]) [address] [place] [address] Potassium [Moles/Vol] 4.3 mmol/L Normal 3.5-5.1 [facility] Comment on above: Performed By: #### L [id number] #### [facility] ([facility]) [address] [place] [address] Sodium [Moles/Vol] 141 mmol/L Normal 136-145 [facility] Comment on above: Performed By: #### L [id number] #### [facility] ([facility]) [address] [place] [address] Urea nitrogen [Mass/Vol] 27 mg/dL High 7-25 [facility] Comment on above: Performed By: #### L [id number] #### [facility] ([facility]) [address] [place] [address] UREA NITROGEN/CREATININ E (MASS RATIO) IN SER/PLAS 19.3 Normal [facility] Comment on above: Performed By: #### L [id number] #### [facility] ([facility]) [address] [place] [address] CBCon 11-16-2023 Erythrocyte distribution width (RBC) [Ratio] 15.1 % High 11.5-15.0 [facility] Comment on above: Performed By: #### L [id number] #### [facility] [address] [place] [address] ERYTHROCYTE MEAN CORPUSCULAR HEMOGLOBIN CONCENTRATION (G/DL) BY AUTOMATED 32.4 g/dL Normal 32.0-35.0 [facility] Comment on above: Performed By: #### L [id number] #### [facility] [address] [place] [address] Hematocrit (Bld) [Volume fraction] 36.7 % Low 39.0-55.0 [facility] Comment on above: Performed By: #### L [id number] #### [facility] ([facility]) [address] [place] [address] Hemoglobin (Bld) [Mass/Vol] 11.9 g/dL Low 13.0-17.0 [facility] Comment on above: Performed By: #### L [id number] #### [facility] [address] [place] [address] MCH (RBC) [Entitic mass] 32.0 pg Normal 27.0-33.0 [facility] Comment on above: Performed By: #### L [id number] #### [facility] [address] [place] [address] MCV (RBC) [Entitic vol] 98.7 fL High 82.0-98.0 [facility] Comment on above: Performed By: #### L [id number] #### [facility] [address] [place] [address] PLATELETS (10*3/UL) IN BLOOD AUTOMATED COUNT 157 10*3/uL Normal 150-400 [facility] Comment on above: Performed By: #### L [id number] #### [facility] [address] [place] [address] RBC (Bld) [#/Vol] 3.72 10*6/uL Low 4.20-5.70 [facility] Comment on above: Performed By: #### L [id number] #### [facility] (BEAKER) [address] [place] [address] WBC (Bld) [#/Vol] 8.83 10*3/uL Normal 4.00-10.60 [facility] Comment on above: Performed By: #### L [id number] #### [facility] (BEJONY) [address] [place] [address] HPon 11-16-2023 HP H&P reviewed. Apparently this morning, the patient [...] MD, MPH, [facility], [facility], [facility] Interventional Cardiology Pager Email: [email or web address] -- Attestation signed by Art Mckoy MD [...] which are billed separately. Art Mckoy MD [facility] Pulmonary and Critical Care Medicine Adult ICU History & Physical Patient - Nat Moore Age - 83 [facility] 1940 [id number] Date of Admission - 11/15/2023 2:42 PM Chief Complaint Syncope History of Present Illness Nat Moore is a an 83-year-old gentleman with PMH significant for type 2 diabetes mellitus, essential hypertension, hyperlipidemia, CKD stage IIIa, bilateral lower extremity edema on diuretic therapy, osteoarthritis, depression and mild cognitive impairment was initially admitted to the hospitalist service from [place] due to recurrent episodes of syncope secondary [...] his presenting complaints. During his stay in [place] ED he suddenly developed bradycardia prolonged sinus [...] of the abdomen with contrast done at [place] ED showed nonobstructive bowel gas pattern with [...] planning on taking the patient to the [facility] tomorrow for possible transvenous pacemaker placement. PMH: [...] sodium (C (more content not included)... Normal [facility] LACTIC ACID WITH 4 HOUR REFL EXon 11-16-2023 LACTATE (MMOL/L) IN SER/PLAS 1.2 mmol/L Normal 0.5-2.2 [facility] Comment on above: Performed By: #### L [id number] #### [facility] ([facility]) [address] [place] [address] MAGNESIUMon 11-16-2023 Magnesium [Mass/Vol] 2.1 mg/dL Normal 1.9-2.7 [facility] Comment on above: Performed By: #### L [id number] #### [facility] ([facility]) [address] [place] [address] Magnesium [Mass/Vol] 1.7 mg/dL Low 1.9-2.7 [facility] Comment on above: Performed By: #### L [id number] #### [facility] ([facility]) [address] [place] [address] PRO-BNPon 11-16-2023 Natriuretic peptide B (Bld) [Mass/Vol] 576 pg/mL High 0-300 [facility] Comment on above: Result Comment: An a ge-independent cutoff point of 300 pg/ml has a 98% negative predictive value excluding acute heart failure. Test Performed by [employer] [address] [place] [address] - Released 11/16/2023 20:27 Performed By: #### L [id number] ####[employer] [facility] [id number] [place] [address] TSH3 REFLEX TO FT4on 024 THYROTROPIN (MIU/L) IN SER/PLAS BY DETECTION LIMIT <= 0.05 MIU/L 1.67 mIU/L Normal 0.34-5.60 [facility] Comment on above: Performed By: #### L [id number] #### [facility] ([facility]) [address] [place] [address] 30on 11-15-2023 30 The patient is Moderately [...] and maintained or improved Outcome: Progressing Normal [facility] CBCon 11-15-2023 Erythrocyte distribution width (RBC) [Ratio] 15.2 % High 11.5-15.0 [facility] Comment on above: Performed By: #### L [id number] ####[facility] [place] [address] ERYTHROCYTE MEAN CORPUSCULAR HEMOGLOBIN CONCENTRATION (G/DL) BY AUTOMATED 32.8 g/dL Normal 32.0-35.0 [facility] Comment on above: Performed By: #### L [id number] ####[facility] ([facility])[address] [place] [address] Hematocrit (Bld) [Volume fraction] 37.8 % Low 39.0-55.0 [facility] Comment on above: Performed By: #### L [id number] ####[facility] [place] [address] Hemoglobin (Bld) [Mass/Vol] 12.4 g/dL Low 13.0-17.0 [facility] Comment on above: Performed By: #### L [id number] ####[facility] ([facility])[address] [place] [address] MCH (RBC) [Entitic mass] 31.9 pg Normal 27.0-33.0 [facility] Comment on above: Performed By: #### L [id number] ####[facility] [facility] [place] [address] MCV (RBC) [Entitic vol] 97.2 fL Normal 82.0-98.0 [facility] Comment on above: Performed By: #### L [id number] ####[facility] [place] [address] PLATELETS (10*3/UL) IN BLOOD AUTOMATED COUNT 172 10*3/uL Normal 150-400 [facility] Comment on above: Performed By: #### L [id number] ####[facility] [place] [address] RBC (Bld) [#/Vol] 3.89 10*6/uL Low 4.20-5.70 [facility] Comment on above: Performed By: #### L [id number] ####[facility] ([facility])[address] [place] [address] WBC (Bld) [#/Vol] 8.89 10*3/uL Normal 4.00-10.60 [facility] Comment on above: Performed By: #### L [id number] ####[facility] ([facility])[address] [place] [address] COMPREHENSIVE METABOLIC PANE Dmitri 11-15-2023 Albumin [Mass/Vol] 3.7 g/dL Normal 3.5-5.7 [facility] Comment on above: Performed By: #### L [id number] #### [facility] ([facility]) [address] [place] [address] ALP [Catalytic activity/Vol] 70 U/L Normal 34-104 [facility] Comment on above: Performed By: #### L [id number] #### [facility] ([facility]) [address] [place] [address] ALT [Catalytic activity/Vol] 7 U/L Normal 7-52 [facility] Comment on above: Performed By: #### L [id number] #### [facility] ([facility]) [address] [place] [address] Anion gap [Moles/Vol] 9 mmol/L Normal 7-20 [facility] Comment on above: Performed By: #### L [id number] #### [facility] ([facility]) [address] [place] [address] AST [Catalytic activity/Vol] 11 U/L Low 13-39 [facility] Comment on above: Performed By: #### L [id number] #### [facility] ([facility]) [address] [place] [address] Bilirubin [Mass/Vol] 0.6 mg/dL Normal 0.3-1.0 [facility] Comment on above: Performed By: #### L [id number] #### [facility] [address] [place] [address] Calcium [Mass/Vol] 8.2 mg/dL Low 8.6-10.3 [facility] Comment on above: Performed By: #### L [id number] #### [facility] ([facility]) [address] [place] [address] Chloride [Moles/Vol] 107 mmol/L Normal 98-107 [facility] Comment on above: Performed By: #### L [id number] #### [facility] ([facility]) [address] [place] [address] CO2 [Moles/Vol] 29 mmol/L Normal 21-31 [facility] Comment on above: Performed By: #### L [id number] #### [facility] ([facility]) [address] [place] [address] Creatinine [Mass/Vol] 1.37 mg/dL High 0.70-1.30 [facility] Comment on above: Performed By: #### L [id number] #### [facility] ([facility]) [address] [place] [address] GLOMERULAR FILTRATION RATE ML/MIN/1.73 SQ M.PREDICTED 50.6 mL/min/1.73m*2 Low >60.0 [facility] Comment on above: Result Comment: [facility]???s estimated glomerular filtration rate (eGFR) will no [...] individuals. Performed By: #### L [id number] #### [facility] ([facility]) [address] [place] [address] Glucose [Mass/Vol] 120 mg/dL High 70-100 [facility] Comment on above: Performed By: #### L [id number] #### [facility] ([facility]) [address] [place] [address] Potassium [Moles/Vol] 4.1 mmol/L Normal 3.5-5.1 [facility] Comment on above: Performed By: #### L [id number] #### [facility] ([facility]) [address] [place] [address] Protein [Mass/Vol] 6.0 g/dL Normal 6.0-8.3 [facility] Comment on above: Performed By: #### L [id number] #### [facility] ([facility]) [address] [place] [address] Sodium [Moles/Vol] 141 mmol/L Normal 136-145 [facility] Comment on above: Performed By: #### L [id number] #### [facility] ([facility]) [address] [place] [address] Urea nitrogen [Mass/Vol] 26 mg/dL High 7-25 [facility] Comment on above: Performed By: #### L [id number] #### [facility] ([facility]) [address] [place] [address] UREA NITROGEN/CREATININ E (MASS RATIO) IN SER/PLAS 19.0 Normal [facility] Comment on above: Performed By: #### L [id number] #### [facility] ([facility]) [address] [place] [address] CONSULTon 11-15-2023 CONSULT Division of Cardiovascular Medicine Interventional Cardiology Consult Chief Complaint: Transfer from [facility]: 83 yo with h/o HTN, CKD, dyslipidemia presented to [facility] with c/o chest and back pain. While being evaluated he had episodes of prolonged sinus pauses (12-18 sec?) with loss of consciousness and vomiting. He was Life flighted to [facility]. On arrival , I evaluated him [...] infarctions or CHF. Does not see a solutions delivery consultant. Patient Active Problem List Diagnosis Syncope and [...] plan on (more content not included)... Normal [facility] CT HEAD WO IV CONTRASTon CT HEAD [...] GAGANDEEP CLAUDIO MD. 3 Invalid Interpretation Code [facility] HPon 11-15-2023 Division of Cardiovascular Medicine Interventional Cardiology Consult Chief Complaint: Transfer from [place] HPI: 83 yo with h/o HTN, CKD, dyslipidemia presented to [facility] with c/o chest and back pain. While being evaluated he had episodes of prolonged sinus pauses (12-18 sec?) with loss of consciousness and vomiting. He was Life flighted to [facility]. On arrival , I evaluated him [...] infarctions or CHF. Does not see a solutions delivery consultant. Patient Active Problem List Diagnosis Syncope and [...] mg, 4 mg, intravenous, q6h PRN, Nils Zimemr MD oxybutynin XL (Ditropan-XL) 24 hr tablet [...] plan on (more content not included)... Normal [facility] MAGNESIUMon 11-15-2023 Magnesium [Mass/Vol] 1.7 mg/dL Low 1.9-2.7 [facility] Comment on above: Performed By: #### L [id number] #### [facility] ([facility]) [address] [place] [address] Raven 11-15-2023 ELIEL [employer] Financial Analyst reach out to Cardiology (Dr. Figueroa) to notify her of the pt transferring to MICU due to change in condition and code blue being called. She asked if the patient was paced at bedside and nurse replied no but pt was transferred and will be paced in MICU. [facility] ELIEL [employer] Financial Analyst attempted to reach out to family via home number in chart and it wasn't in service. Charge nurse MIGUEL Lloyd was notified and MICU was notified as well by MIGUEL Lloyd. [facility] ELIEL Bedside report given to MIGUEL Ghosh prior to transfer to MICU due to change in condition and code blue being called for asystole lasting 10.19 seconds. [facility] ELIEL Spoke with Dr. Wendy dominguez via [...] done and we'll go from there. Normal [facility] TROPONIN Ion 11-15-2023 Troponin I.cardiac [Mass/Vol] 0.01 ng/mL Normal 0.00-0.04 [facility] Comment on above: Performed By: #### L [id number] #### [facility] (TRUDY) [address] [place] [address] Urology Office/Clinic Noteon 11-12-2023 Urology Office/Clinic Note [...] call if too cost prohibitive, sent to [employer] Stefan Hutchins -f/up in 3 mos 2. BPH [...] 11/11/2023 13:54:07. . Documentation recorded by the trsiton [place] accurately reflects the services(s) I performed [...] 23-valent vac (more content not included)... Normal [facility] Comment on above: Result Comment: Elec tronically [...] APRN, Marianela Rodriguez Where: [facility] [address] [place] [address]- You Need to Schedule the Following Appointments Follow Up with RAUL Inrgam APRN, Marianela Rodriguez, RIANNA, URL When: Comments: [...] Leaking ur (more content not included)... Normal [facility] [place] [facility] Patient [facility] October 14, 2023 NAT [address] [place] [address] : 1940 Dear Nat, You missed your [...] your consideration regarding any future cancellations. Sincerely, [address] [address] [facility] Patient Letter FTon 2023 Patient Letter [facility] May 13, [address] [place] [address] : 1940 Dear Nat, You missed your [...] your consideration regarding any future cancellations. Sincerely, [address], [place] [address] [facility] BNPon 07-27-2022 Natriuretic peptide B (Bld) [Mass/Vol] 178.0 pg/mL Normal <=1,800.0 [facility] Comment on above: Performed By: #### C MP, BNP, CMADM #### [facility] [address] [place] [address] Dr. Loyd Parks CARDIAC SPARKLE ADMITon 023 CK [Catalytic activity/Vol] 50 U/L Normal 39-308 [facility] Comment on above: Performed By: #### C MP, BNP, CMADM #### [facility] [address] [place] [address] Dr. Loyd Parks CK.MB [Mass/Vol] 0.83 ng/mL Normal <=3.60 [facility] Comment on above: Performed By: #### C MP, BNP, CMADM #### [facility] [address] [place] [address] Dr. Loyd Parks HSTROP 6.3 pg/mL Normal 4.0-76.1 [facility] Comment on above: Result Comment: CUT- OFF POINTS HAVE BEEN ESTABLISHED BASED ON THE FOURTH UNIVERSAL DEFINITIONS OF MYOCARDIAL INFARCTION. THE UPPER REFERENCE LIMIT (URL) OF TROPONIN, DEFINED THE 99TH PERCENTILE OF cTnI DISTRIBUTION IN A REFERENCE POPULATION, HAS BEEN CONFIRMED THE DECISION THRESHOLD FOR SC DIAGNOSIS. Performed By: #### C MP, BNP, CMADM #### [facility] [address] [place] [address] Dr. Loyd Parks WM 121 ng/mL Critically high 16-96 [facility] Comment on above: Performed By: #### C MP, BNP, CMADM #### [facility] [address] [place] [address] Dr. Loyd Parks CBC AUTO DIFFon 07-27-2022 BASO # 0.1 103/ul Normal 0.0-0.1 [facility] Comment on above: Performed By: #### C BC #### [facility] [address] [place] [address] Dr. Loyd Parks Basophils/100 WBC (Bld) 0.6 % Normal 0.2-2.0 [facility] Comment on above: Performed By: #### C BC #### [facility] [address] [place] [address] Dr. Loyd Parks EO # 0.5 103/ul Normal 0.0-0.7 [facility] Comment on above: Performed By: #### C BC #### [facility] [address] [place] [address] Dr. Loyd Parks Eosinophils/100 WBC (Bld) 4.8 % Normal 0.9-7.0 [facility] Comment on above: Performed By: #### C BC #### [facility] [address] [place] [address] Dr. Loyd Parks Erythrocyte distribution width (RBC) [Ratio] 13.5 % Normal 11.0-15.0 [facility] Comment on above: Performed By: #### C BC #### [facility] [address] [place] [address] Dr. Loyd Parks Hematocrit (Bld) [Volume fraction] 39.7 % Critically low 42.0-54.0 [facility] Comment on above: Performed By: #### C BC #### [facility] [address] [place] [address] Dr. Loyd Parks Hemoglobin (Bld) [Mass/Vol] 13.1 g/dL Critically low 14.0-18.0 [facility] Comment on above: Performed By: #### C BC #### [facility] [address] [place] [address] Dr. Loyd Parks IG # 0.05 10e3/ul Critically high 0.00-0.03 [facility] Comment on above: Performed By: #### C BC #### [facility] [address] [place] [address] Dr. Loyd Parks IG % 0.5 % Normal 0.0-0.5 [facility] Comment on above: Performed By: #### C BC #### [facility] [address] [place] [address] Dr. Loyd Parks LYMPH # 1.4 103/ul Normal 1.2-3.8 [facility] Comment on above: Performed By: #### C BC #### [facility] [address] [place] [address] Dr. Loyd Parks Lymphocytes/100 WBC (Bld) 14.1 % Critically low 20.5-60.0 [facility] Comment on above: Performed By: #### C BC #### [facility] [address] [place] [address] Dr. Loyd Parks MANUAL DIFF REQ NO Normal [facility] Comment on above: Performed By: #### C BC #### [facility] [address] [place] [address] Dr. Loyd Parks MCH (RBC) [Entitic mass] 31.6 pg Normal 25.9-34.0 [facility] Comment on above: Performed By: #### C BC #### [facility] [address] [place] [address] Dr. Loyd Parks MCHC (RBC) [Mass/Vol] 33.0 g/dL Normal 29.9-35.2 [facility] Comment on above: Performed By: #### C BC #### [facility] [address] [place] [address] Dr. Loyd Parks MCV (RBC) [Entitic vol] 95.7 fL Critically high 80.0-94.0 [facility] Comment on above: Performed By: #### C BC #### [facility] [address] [place] [address] Dr. Loyd Parks MONO # 1.0 103/ul Critically high 0.3-0.8 [facility] Comment on above: Performed By: #### C BC #### [facility] [address] [place] [address] Dr. Loyd Parks Monocytes/100 WBC (Bld) 9.7 % Normal 1.7-12.0 [facility] Comment on above: Performed By: #### C BC #### [facility] [address] [place] [address] Dr. Loyd Parks NEUT # 7.2 103/ul Critically high 1.4-6.5 [facility] Comment on above: Performed By: #### C BC #### [facility] [address] [place] [address] Dr. Loyd Parks Neutrophils/100 WBC (Bld) 70.3 % Normal 43.0-75.0 [facility] Comment on above: Performed By: #### C BC #### [facility] [address] [place] [address] Dr. Loyd Parks Platelet mean volume (Bld) [Entitic vol] 10.8 fL Normal 9.5-13.5 [facility] Comment on above: Performed By: #### C BC #### [facility] [address] [place] [address] Dr. Loyd Parks PLT 199 103/ul Normal 150-450 [facility] Comment on above: Performed By: #### C BC #### [facility] [address] [place] [address] Dr. Loyd Parks RBC 4.15 106/ul Critically low 4.70-6.10 [facility] Comment on above: Performed By: #### C BC #### [facility] [address] [place] [address] Dr. Loyd Parks WBC 10.2 103/ul Normal 4.0-11.0 [facility] Comment on above: Performed By: #### C BC #### [facility] [address] [place] [address] Dr. Loyd Parks CULTURE BLOODon 07-27-2022 Microscopic examination of blood, culture Culture Observations: NO GROWTH AT 5 DAYS. Normal [facility] Comment on above: Performed By: #### E RUR #### [facility] [address] [place] [address] Dr. Loyd Parks Covid-19 PCR (CVDTBH)on SARS-CoV-2 (COVID-19) RNA SAUNDRA+probe Ql (Unsp spec) Not detected Normal NOT DETECTED [facility] Comment on above: Result Comment: This test is not yet approved or cleared by the [place] FDA. When there are no FDA-approved or cleared tests available, and other criteria are met, FDA can make tests available under an emergency access mechanism called an Emergency Use Authorization (EUA). The EUA for this test is supported by the Boiler Testing Technician of Health and Human Service's (HHS's) declaration [...] SARS-CoV-2. Performed By: #### E RUR #### [facility] [address] [place] [address] Dr. Loyd Parks LACTATE/LACTIC ACIDon 2022 Lactate [Moles/Vol] 2.2 mmol/L Critically high 0.4-2.0 [facility] Comment on above: Performed By: #### C MP, BNP, CMADM #### [facility] [address] [place] [address] Dr. Loyd Parks PROF 14(COMP METB)on 023 Albumin [Mass/Vol] 3.3 g/dL Critically low 3.4-5.0 [facility] Comment on above: Performed By: #### C MP, BNP, CMADM #### [facility] [address] [place] [address] Dr. Loyd Parks Albumin/Globulin [Mass ratio] 0.9 {ratio} Normal [facility] Comment on above: Performed By: #### C MP, BNP, CMADM #### [facility] [address] [place] [address] Dr. Loyd Parks ALP [Catalytic activity/Vol] 91 U/L Normal 46-116 [facility] Comment on above: Performed By: #### C MP, BNP, CMADM #### [facility] [address] [place] [address] Dr. Loyd Parks ALT [Catalytic activity/Vol] 18 U/L Normal 16-63 [facility] Comment on above: Performed By: #### C MP, BNP, CMADM #### [facility] [address] [address] [address] Loyd Parks Anion gap [Moles/Vol] 12.2 mmol/L Normal [facility] Comment on above: Performed By: #### C MP, BNP, CMADM #### [facility] [address] [address] [address] Loyd Parks AST [Catalytic activity/Vol] 15 U/L Normal 15-37 [facility] Comment on above: Performed By: #### C MP, BNP, CMADM #### [facility] [address] [address] [address] Loyd Parks Bilirubin [Mass/Vol] 0.4 mg/dL Normal 0.2-1.0 [facility] Comment on above: Performed By: #### C MP, BNP, CMADM #### [facility] [address] [address] [address] Loyd Parks Calcium [Mass/Vol] 8.7 mg/dL Normal 8.5-10.1 [facility] Comment on above: Performed By: #### C MP, BNP, CMADM #### [facility] [address] [address] [address] Loyd Parks Chloride [Moles/Vol] 105 mmol/L Normal 98-107 [facility] Comment on above: Performed By: #### C MP, BNP, CMADM #### [facility] [address] [address] [address] Loyd Parks CO2 [Moles/Vol] 28.0 mmol/L Normal 21.0-32.0 [facility] Comment on above: Performed By: #### C MP, BNP, CMADM #### [facility] [address] [address] [address] Lody Parks Creatinine [Mass/Vol] 2.25 mg/dL Critically high 0.70-1.30 [facility] Comment on above: Performed By: #### C MP, BNP, CMADM #### [facility] [address] [address] [address] Loyd Parks EGFR-AF TANZANIAN 34 mL/min/1.73m2 Critically low >=60 [facility] Comment on above: Performed By: #### C MP, BNP, CMADM #### [facility] [address] [place] [address] Dr. Loyd Parks EGFR-NON AF TANZANIAN 28 mL/min/1.73m2 Critically low >=60 [facility] Comment on above: Performed By: #### C MP, BNP, CMADM #### [facility] [address] [place] [address] Dr. Loyd Parks Globulin (S) [Mass/Vol] 3.8 g/dL Normal [facility] Comment on above: Performed By: #### C MP, BNP, CMADM #### [facility] [address] [place] [address] Dr. Loyd Parks Glucose [Mass/Vol] 88 mg/dL Normal 74-106 [facility] Comment on above: Performed By: #### C MP, BNP, CMADM #### [facility] [address] [place] [address] Dr. Loyd Parks Potassium [Moles/Vol] 4.2 mmol/L Normal 3.5-5.1 [facility] Comment on above: Performed By: #### C MP, BNP, CMADM #### [facility] [address] [place] [address] Dr. Loyd Parks Protein [Mass/Vol] 7.1 g/dL Normal 6.4-8.2 [facility] Comment on above: Performed By: #### C MP, BNP, CMADM #### [facility] [address] [place] [address] Dr. Loyd Parks Sodium [Moles/Vol] 141 mmol/L Normal 136-145 [facility] Comment on above: Performed By: #### C MP, BNP, CMADM #### [facility] [address] [place] [address] Dr. Loyd Parks Urea nitrogen [Mass/Vol] 36.0 mg/dL Critically high 7.0-18.0 [facility] Comment on above: Performed By: #### C MP, BNP, CMADM #### [facility] [address] [place] [address] Dr. Loyd Parks Urea nitrogen/Creatinin e [Mass ratio] 16.0 mg/mg Normal [facility] Comment on above: Performed By: #### C MP, BNP, CMADM #### [facility] [address] [place] [address] Dr. Loyd Parks PROTIMEon 07-27-2022 INR Coag (PPP) [Relative time] 0.95 {INR} Normal [facility] Comment on above: Performed By: #### P T, PTT #### [facility] [address] [place] [address] Dr. Loyd Parks INR GUIDELINES SEE BELOW Normal [facility] Comment on above: Result Comment: MARIE RED INR: 2.0 - 3.0 CONDITIONS NOT LISTED BELOW 2.5 - 3.5 FOR PROSTHETIC HEART VALVE REPLACEMENT 2.5 - 3.5 RECURRENT THROMBOSIS Performed By: #### P T, PTT #### [facility] [address] [place] [address] Dr. Loyd Parks PT Coag (PPP) [Time] 10.1 s Normal 9.0-11.6 [facility] Comment on above: Performed By: #### P T, PTT #### [facility] [address] [place] [address] Dr. Loyd Parks PTTon 07-27-2022 aPTT Coag (Bld) [Time] 27.3 s Normal 22.3-36.2 [facility] Comment on above: Performed By: #### P T, PTT #### [facility] [address] [place] [address] Dr. Loyd Parks SYMPTOMATIC COVID-19 ANTIGEN on [...] sooner. Performed By: #### C VDAGS #### [facility] [address] [place] [address] Dr. Loyd Parks SARS-CoV-2 (COVID-19) RNA SAUNDRA+probe Ql (Unsp spec) Negative Normal NEGATIVE [facility] Comment on above: Performed By: #### C VDAGS #### [facility] [address] [place] [address] Dr. Loyd Parks XR CHEST 2 Von [...] ELIUD KAUR Date: 2022-07-26 22:19 Normal [facility] POINT OF CARE GLUCOSEon - Glucose [Mass/Vol] 102 mg/dL Normal 74-106 [facility] Comment on above: Performed By: #### C MP, BNP, CMADM #### [facility] [address] [place] [address] Dr. Loyd Parks ER URINE PROFILEon 2 Bilirubin Ql (U) Negative Normal NEGATIVE [facility] Comment on above: Performed By: #### E RUR #### [facility] [address] [place] [address] Dr. Loyd Parks Clarity (U) CLEAR Normal CLEAR [facility] Comment on above: Performed By: #### E RUR #### [facility] [address] [place] [address] Dr. Loyd Parks Color (U) LT. YELLOW Normal YELLOW [facility] Comment on above: Performed By: #### E RUR #### [facility] [address] [place] [address] Dr. Loyd CONWAY A micrscopic examination will be performed if indicated. Normal [facility] Comment on above: Performed By: #### E RUR #### [facility] [address] [place] [address] Dr. Loyd Parks Glucose Ql (U) 100 mg/dl Abnormal NEGATIVE [facility] [place] Comment on above: Performed By: #### E RUR #### [facility] [address] [place] [address] Dr. Loyd Parks Hemoglobin Ql (U) Negative Normal NEGATIVE [facility] Comment on above: Performed By: #### E RUR #### [facility] [address] [place] [address] Dr. Loyd Parks Ketones Ql (U) Negative Normal NEGATIVE [facility] [place] Comment on above: Performed By: #### E RUR #### [facility] [address] [place] [address] Dr. Loyd Parks LEUKOCYTES Negative Normal NEGATIVE [facility] Comment on above: Performed By: #### E RUR #### [facility] [address] [place] [address] Dr. Loyd Parks Nitrite Ql (U) Negative Normal NEGATIVE [facility] Comment on above: Performed By: #### E RUR #### [facility] [address] [place] [address] Dr. Loyd Parks pH (U) 5.5 [pH] Normal 5-9 [facility] Comment on above: Performed By: #### E RUR #### [facility] [address] [place] [address] Dr. Loyd Parks SPEC GRAVITY 1.015 Normal 1.005-<=1.025 [facility] Comment on above: Performed By: #### E RUR #### [facility] [address] [place] [address] Dr. Loyd Parks UA PROTEIN Negative Normal NEGATIVE/ TRACE [facility] Comment on above: Performed By: #### E RUR #### [facility] [address] [place] [address] Dr. Loyd Parks UR MICRO IND NOT INDICATED Normal [facility] Comment on above: Performed By: #### E RUR #### [facility] [address] [place] [address] Dr. Loyd Parks Urobilinogen Qn (U) 0.2 {Malcolm'U}/dL Normal 0.2 - 1.0 [facility] Comment on above: Performed By: #### E RUR #### [facility] [address] [place] [address] Dr. Loyd Parks GROUP A STREP CULTUREon 02-21 S. pyogenes Ag Ql (Unsp spec) Culture Observations: NEGATIVE FOR GROUP A STREPTOCOCCUS. Normal [facility] Comment on above: Performed By: #### S SCRN, GRASTCX #### [facility] [address] [place] [address] Dr. Loyd Parks STREPT SCREENon 03-03-2022 STREP SCREEN A Negative Normal NEGATIVE [facility] [place] Comment on above: Performed By: #### S SCRN, GRASTCX #### [facility] [address] [place] [address] Dr. Loyd Parks [facility]on SARS-CoV-2 (COVID-19) RNA SAUNDRA+probe Ql (Unsp spec) Not detected Normal NOT DETECTED [facility] Comment on above: Result Comment: This test is not yet approved or cleared by the [place] FDA. When there are no FDA-approved or cleared tests available, and other criteria are met, FDA can make tests available under an emergency access mechanism called an Emergency Use Authorization (EUA). The EUA for this test is supported by the [place] of Health and Human Service's (HHS's) declaration [...] By: #### C MP, BNP, CMADM #### [facility] [address] [place], [place] [address] Dr. Loyd Parks POINT OF CARE GLUCOSEon 12-22 Glucose [Mass/Vol] 133 mg/dL Critically high 74-106 [facility] Comment on above: Performed By: #### E RUR #### [facility] [address] [place] [id number] Loyd Parks POINT OF CARE GLUCOSEon Glucose [Mass/Vol] 75 mg/dL Normal 74-106 [facility] Comment on above: Performed By: #### E RUR #### [facility] [address] [place] [address] ABD/PELVIS WO CONon [...] SAURABH SINGH Date: 2021-09-03 08:35 Normal [facility] ER URINE PROFILEon 2 Bilirubin Ql (U) Negative Normal NEGATIVE [facility] Comment on above: Performed By: #### E RUR #### [facility] [address] [place] [address] [address] Loyd Parks Clarity (U) CLEAR Normal CLEAR [facility] Comment on above: Performed By: #### E RUR #### [facility] [address] [place] [address] [address] Loyd Parks Color (U) LT. YELLOW Normal YELLOW [facility] Comment on above: Performed By: #### E RUR #### [facility] [address] [place] [address] [address] Loyd Parks ERUAHD A micrscopic examination will be performed if indicated. Normal [facility] Comment on above: Performed By: #### E RUR #### [facility] [address] [place] [address] Dr. Loyd Parks Glucose Ql (U) >1000 Abnormal NEGATIVE [facility] Comment on above: Performed By: #### E RUR #### [facility] [address] [place] [address] Dr. Loyd Parks Hemoglobin Ql (U) Negative Normal NEGATIVE [facility] Comment on above: Performed By: #### E RUR #### [facility] [address] [place] [address] Dr. Loyd Parks Ketones Ql (U) Negative Normal NEGATIVE [facility] [place] Comment on above: Performed By: #### E RUR #### [facility] [address] [place] [address] Dr. Loyd Parks LEUKOCYTES Negative Normal NEGATIVE [facility] Comment on above: Performed By: #### E RUR #### [facility] [address] [place] [address] Dr. Loyd Parks Nitrite Ql (U) Negative Normal NEGATIVE [facility] [place] Comment on above: Performed By: #### E RUR #### [facility] [address] [place] [address] Dr. Loyd Parks pH (U) 6.0 [pH] Normal 5-9 [facility] Comment on above: Performed By: #### E RUR #### [facility] [address] [place] [address] Dr. Loyd Parks SPEC GRAVITY 1.010 Normal 1.005-<=1.025 [facility] Comment on above: Performed By: #### E RUR #### [facility] [address] [place] [address] Dr. Loyd Parks UA PROTEIN Negative Normal NEGATIVE/ TRACE [facility] Comment on above: Performed By: #### E RUR #### [facility] [address] [place] [address] Dr. Loyd Parks UR MICRO IND NOT INDICATED Normal [facility] Comment on above: Performed By: #### E RUR #### [facility] [address] [place] [address] Dr. Loyd Parks Urobilinogen Qn (U) 0.2 {Malcolm'U}/dL Normal 0.2 - 1.0 [facility] Comment on above: Performed By: #### E RUR #### [facility] [address] [place] [address] [address] Loyd Parks ALCOHOLon 07-31-2020 Ethanol [Mass/Vol] mg/dL Normal [facility] Comment on above: Result Comment: FOR MEDICAL USE ONLY. . REF VALUES <10 Performed By: #### A LC ####[facility] [place] [address] CBC AND DIFFERENTIALon 07-31 % AUTOMATED IMMATURE [...] (cells/L). Performed By: #### C BCDF #### [facility] [address] [place] [address] Basophils (Bld) [#/Vol] 0.05 10*3/uL Normal 0.00 - 0.10 [facility] Comment on above: Performed By: #### C BCDF #### [facility] [address] [place] [address] Basophils/100 WBC (Bld) 0.6 % Normal 0.0 - 2.0 [facility] Comment on above: Performed By: #### C BCDF #### [facility] [address] [place] [address] Eosinophils (Bld) [#/Vol] 0.21 10*3/uL Normal 0.00 - 0.40 [facility] Comment on above: Performed By: #### C BCDF #### [facility] [address] [place] [address] Eosinophils/100 WBC (Bld) 2.4 % Normal 0.0 - 6.0 [facility] Comment on above: Performed By: #### C BCDF #### [facility] [address] [place] [address] Erythrocyte distribution width (RBC) [Ratio] 13.2 % Normal 11.5 - 14.5 [facility] Comment on above: Performed By: #### C BCDF #### [facility] [address] [place] [address] Hematocrit (Bld) [Volume fraction] 50.0 % Normal 41.0 - 52.0 [facility] Comment on above: Performed By: #### C BCDF #### [facility] [address] [place] [address] Hemoglobin (Bld) [Mass/Vol] 17.3 g/dL Normal 13.5 - 17.5 [facility] Comment on above: Performed By: #### C BCDF #### [facility] [address] [place] [address] Lymphocytes (Bld) [#/Vol] 1.59 10*3/uL Normal 0.80 - 3.00 [facility] Comment on above: Performed By: #### C BCDF #### [facility] [address] [place] [address] Lymphocytes/100 WBC (Bld) 17.9 % Normal 13.0 - 44.0 [facility] Comment on above: Performed By: #### C BCDF #### [facility] [address] [place] [address] MCHC (RBC) [Mass/Vol] 34.6 g/dL Normal 32.0 - 36.0 [facility] Comment on above: Performed By: #### C BCDF #### [facility] [address] [place] [address] MCV (RBC) [Entitic vol] 89 fL Normal 80 - 100 [facility] Comment on above: Performed By: #### C BCDF #### [facility] [address] [place] [address] Monocytes (Bld) [#/Vol] 0.82 10*3/uL High 0.05 - 0.80 [facility] Comment on above: Performed By: #### C BCDF #### [facility] [address] [place] [address] Monocytes/100 WBC (Bld) 9.2 % Normal 2.0 - 10.0 [facility] Comment on above: Performed By: #### C BCDF #### [facility] [address] [place] [address] Neutrophils (Bld) [#/Vol] 6.18 10*3/uL High 1.60 - 5.50 [facility] Comment on above: Performed By: #### C BCDF #### [facility] [address] [place] [address] Neutrophils/100 WBC (Bld) 69.5 % Normal 40.0 - 80.0 [facility] Comment on above: Performed By: #### C BCDF #### [facility] [address] [place] [address] Platelets (Bld) [#/Vol] 215 10*3/uL Normal 150 - 450 [facility] Comment on above: Performed By: #### C BCDF #### [facility] [address] [place] [address] RBC 5.59 x10E12/L Normal 4.50 - 5.90 [facility] Comment on above: Performed By: #### C BCDF #### [facility] [address] [place] [address] WBC (Bld) [#/Vol] 8.9 10*3/uL Normal 4.4 - 11.3 [facility] Comment on above: Performed By: #### C BCDF #### [facility] [address] [place] [address] CHEST 1 VIEWon 07-31-2020 CHEST 1 VIEW STUDY: Chest Radiograph; 07/30/2020 10:53 PM INDICATION: Shortness of breath. COMPARISON: None available. ACCESSION NUMBER(S): [id number] ORDERING CLINICIAN: ZAID CUELLAR DO TECHNIQUE: Frontal [...] [Mass/Vol] 3.7 g/dL Normal 3.4 - 5.0 [facility] Comment on above: Performed By: #### C MP ####[facility] [place] [address] ALP [Catalytic activity/Vol] 80 U/L Normal 33 - 136 [facility] Comment on above: Performed By: #### C MP ####[facility] [place] [address] ALT [Catalytic activity/Vol] 12 U/L Normal 10 - 52 [facility] Comment on above: Result Comment: Jade ents treated with Sulfasalazine may generate falsely decreased results for ALT. Performed By: #### C MP ####[facility] [place] [address] Anion gap [Moles/Vol] 13 mmol/L Normal 10 - 20 [facility] Comment on above: Performed By: #### C MP ####[facility] [place] [address] AST [Catalytic activity/Vol] 12 U/L Normal 9 - 39 [facility] Comment on above: Performed By: #### C MP ####[facility] [place] [address] Bilirubin [Mass/Vol] 0.7 mg/dL Normal 0.0 - 1.2 [facility] Comment on above: Performed By: #### C MP ####[facility] [place] [address] Calcium [Mass/Vol] 9.2 mg/dL Normal 8.6 - 10.3 [facility] Comment on above: Performed By: #### C MP ####[facility] [place] [address] Chloride [Moles/Vol] 101 mmol/L Normal 98 - 107 [facility] Comment on above: Performed By: #### C MP ####[facility] [place] [address] Creatinine [Mass/Vol] 1.36 mg/dL High 0.50 - 1.30 [facility] Comment on above: Performed By: #### C MP ####[facility] [place] [address] GFR- AM. 61 mL/min/1.73m2 Normal >60 [facility] Comment on above: Result Comment: CALC ULATIONS OF ESTIMATED GFR ARE PERFORMED USING THE MDRD STUDY EQUATION FOR THE IDMS-TRACEABLE CREATININE METHODS. CLIN CHEM 2007;53:766-72 Performed By: #### C MP ####[facility] [place] [address] GFR-NON AM. 50 mL/min/1.73m2 Abnormal >60 [facility] Comment on above: Performed By: #### C MP ####[facility] [place] [address] Glucose [Mass/Vol] 390 mg/dL High 74 - 99 [facility] Comment on above: Performed By: #### C MP ####[facility] [place] [address] HCO3 (Bld) [Moles/Vol] 27 mmol/L Normal 21 - 32 [facility] Comment on above: Performed By: #### C MP ####[facility] [place] [address] Potassium [Moles/Vol] 4.1 mmol/L Normal 3.5 - 5.3 [facility] Comment on above: Performed By: #### C MP ####[facility] [place] [address] Protein [Mass/Vol] 6.8 g/dL Normal 6.4 - 8.2 [facility] Comment on above: Performed By: #### C MP ####[facility] [place] [address] Sodium [Moles/Vol] 137 mmol/L Normal 136 - 145 [facility] Comment on above: Performed By: #### C MP ####[facility] [place] [address] Urea nitrogen [Mass/Vol] 27 mg/dL High 6 - 23 [facility] Comment on above: Performed By: #### C MP ####[facility] [place] [address] CT HEAD WO CONTRASTon 2020 CT HEAD WO CONTRAST STUDY: CT Head without IV Contrast; 07/30/2020, 11:52 PM. INDICATION: Confusion, disorientation. COMPARISON: None Available. ACCESSION NUMBER(S): [id number] ORDERING CLINICIAN: ZAID CUELLAR DO TECHNIQUE: Noncontrast [...] [facility] MAGNESIUMon 07-31-2020 Magnesium [Mass/Vol] 2.04 mg/dL Normal 1.60 - 2.40 [facility] Comment on above: Performed By: #### M G #### [facility] [address] [place] [address] PT/INRon 07-31-2020 PT Coag (PPP) [Time] 12.0 s Normal 10.1 - 13.3 [facility] Comment on above: Performed By: #### P TINR #### [facility] [address] [place] [address] PT, INR 1.0 Normal 0.9 - 1.1 [facility] Comment on above: Performed By: #### P PHILR #### [facility] [address] [place] [address] Provider Note - ED v2on 07-22 Provider Note - ED v2 Provider Note - ED v2: Chart Review: ED NOTES ED NOTES: History: This is an 80-year-old male presenting from the [facility] for chief complaint of a medical evaluation. Patient left his home in [place] 3 days ago because he got into an argument with his and he has not been back since. He was finally located at a [facility] down the street when family called. 911 [...] Last Updated: 11-Aug-2020 11:59 by Zaid Cuellar (DO) References: 1. Data Referenced From Triage - [...] instruction; written material Cultural Considerationsnone Developmental Considerationsnone Hindu Considerationsnone Learning Assessment (Other Learner): Learning Assessment (Other Learner): Other learner availableno Pressure Injury/TB/Substance: Pressure Injury: Do you have a coughno Substance Use Current or Former Historynever: Cigarette/Tobacco, e-Cigarette/Vaping, Alcohol, Street Drugs Admission Risk Screen: Significant IndicatorsComplete CAGE: CAGE: Is this an injured patient at a Trauma Center ([facility]/[place]/[facility]/[place]): no Electronic Signatures: Elizabeth Ivan (RN) (Signed [...] is performed using different testing methodology at [facility] than at other [facility]. Direct result comparisons should only be made within the same method. Performed By: #### T ROP2 #### [facility] [address] [place] [address] Triage - EDon 07-31-2020 Triage - ED [...] Medical Center Agency Name: [facility] Accompanied By: barratte operator Language: Spoken Language Preferred: Iranian Reading Language Preferred: Iranian CHIEF COMPLAINT NAT MOORE is a Male patient with a chief complaint of altered mental status. Triage Date/Time: 30-Jul-2020 22:50 LAILA: 3 Pain Rating (0-10): 0 = None Vital Signs: Temperature: 96.8F ( 36.0C) taken temporal Blood Pressure: 166/103 Mean: Heart Rate: 94 Respiratory Rate: 18 Pulse Oximetry: 97% on room air, no respiratory support. Weight: 230.3 pounds. Calculated 104.5 kg. (stated) [employer] Coma Scale: Best Eye Response: (E4) spontaneous [...] 30-Jul-2020 23:23 by Elizabeth Ivan (RN) Normal [facility] UA MICROSCOPICon 07-31-2020 RBC 1 /HPF Normal 0-5 [facility] Comment on above: Performed By: #### U AMIC #### [facility] [address] [place] [address] SQUAMOUS EPITH. CELLS <1 Normal [facility] Comment on above: Performed By: #### U AMIC #### [facility] [address] [place] [address] WBC 22 /HPF Abnormal 0-5 [facility] Comment on above: Performed By: #### U AMIC #### [facility] [address] [place] [address] URINALYSISon 07-31-2020 Appearance (U) CLEAR Normal CLEAR [facility] Comment on above: Performed By: #### U A #### [facility] [address] [place] [address] Bilirubin Ql (U) Negative Normal NEGATIVE [facility] Comment on above: Performed By: #### U A #### [facility] [address] [place] [address] Color (U) STRAW Normal STRAW,YELLOW [facility] Comment on above: Performed By: #### U A #### [facility] [address] [facility] [place] [address] Glucose Ql (U) >=500(3+) Abnormal NEGATIVE [facility] Comment on above: Performed By: #### U A #### [facility] [address] [place] [address] Hemoglobin Ql (U) SMALL(1+) Abnormal NEGATIVE [facility] Comment on above: Performed By: #### U A #### [facility] [id number] [place] [address] Ketones Ql (U) Negative Normal NEGATIVE [facility] Comment on above: Performed By: #### U A #### [facility] [id number] [place] [address] Leukocyte esterase Test strip Ql (U) TRACE Abnormal NEGATIVE [facility] Comment on above: Performed By: #### U A #### [facility] [address] [place] [address] Nitrite Ql (U) Negative Normal NEGATIVE [facility] Comment on above: Performed By: #### U A #### [facility] [address] [place] [address] pH (U) 6.0 [pH] Normal 5.0 - 8.0 [facility] Comment on above: Performed By: #### U A #### [facility] [id number] [place] [address] Protein Ql (U) 100(2+) Abnormal NEGATIVE [facility] Comment on above: Performed By: #### U A #### [facility] [address] [place] [address] Specific gravity (U) [Rel density] 1.025 Normal 1.005 - 1.035 [facility] Comment on above: Performed By: #### U A #### [facility] [address] [place] [address] Urobilinogen (U) [Mass/Vol] mg/dL Normal 0.0 - 1.9 [facility] Comment on above: Performed By: #### U A #### [facility] [address] [place] [address] Vital Signs Date Time Vital Sign Value Performing Clinician Facility 01-29-2024 13:02-0500 Body height 172.7 cm Perla Aguila [employer] Work Phone: [facility] 01-29-2024 13:02-0500 Body mass index (BMI) [Ratio] 37.71 kg/m2 Perla Aguila [employer] Work Phone: [facility] 01-29-2024 13:02-0500 Body temperature 97.81 [degF] Perla Aguila [employer] Work Phone: [facility] 01-29-2024 13:02-0500 Body weight 112.49 kg Peral Aguila [employer] Work Phone: [facility] 01-29-2024 13:02-0500 Diastolic blood pressure 70 mm[Hg] Perla Aguila [employer] Work Phone: [facility] 01-29-2024 13:02-0500 Heart rate 74 /min Perla Aguila [employer] Work Phone: [facility] 01-29-2024 13:02-0500 SaO2% (BldA) [Mass fraction] 95 % Perla Aguila [employer] Work Phone: [facility] 01-29-2024 13:02-0500 Systolic blood pressure 128 mm[Hg] Perla Aguila [employer] Work Phone: [facility] 01-08-2024 14:17-0400 Body height 172.7 cm Darcy Sandoval [employer] Work Phone: [facility] 01-08-2024 14:17-0400 Body mass index (BMI) [Ratio] 37.56 kg/m2 Darcy Sandoval [employer] Work Phone: [facility] 01-08-2024 14:17-0400 Body weight 112.04 kg Darcy Sandoval [employer] Work Phone: [facility] 01-08-2024 14:17-0400 Diastolic blood pressure 84 mm[Hg] Darcy Sandoval [employer] Work Phone: [facility] 01-08-2024 14:17-0400 Heart rate 92 /min Darcy Sandoval [employer] Work Phone: [facility] 01-08-2024 14:17-0400 SaO2% (BldA) [Mass fraction] 98 % Darcylenny Sandoval [employer]OR Work Phone: [facility] 01-08-2024 14:17-0400 Systolic blood pressure 124 mm[Hg] Darcy Lori [employer] Work Phone: [facility] 12-25-2023 14:28-0400 Body height 172.7 cm Darcy Lori [employer] Work Phone: [facility] 12-25-2023 14:28-0400 Body mass index (BMI) [Ratio] 38.32 kg/m2 Darcy Lori [employer] Work Phone: [facility] 12-25-2023 14:28-0400 Body weight 114.31 kg Darcy Lori [employer] Work Phone: [facility] 12-25-2023 14:28-0400 Diastolic blood pressure 68 mm[Hg] Darcy Lori [employer] Work Phone: [facility] 12-25-2023 14:28-0400 Heart rate 88 /min Darcy Lori [employer] Work Phone: [facility] 12-25-2023 14:28-0400 SaO2% (BldA) [Mass fraction] 97 % Darcy Lori [employer] Work Phone: [facility] 12-25-2023 14:28-0400 Systolic blood pressure 128 mm[Hg] Darcy Lori [employer] Work Phone: [facility] 09-16-2022 14:48-0400 Blood Pressure Location Umer VALENCIA [facility] 09-16-2022 14:48-0400 Diastolic blood pressure 74 mm[Hg] Umer VALENCIA [facility] 09-16-2022 14:48-0400 Heart rate 70 /min Umer VALENCIA [facility] 09-16-2022 14:48-0400 Respiratory rate 16 /min Umer VALENCIA [facility] 09-16-2022 14:48-0400 Systolic blood pressure 130 mm[Hg] Umer VALENCIA [facility] 04-26-2022 11:04-0500 Blood Pressure Location Umer VALENCIA [facility] 04-26-2022 11:04-0500 Diastolic blood pressure 78 mm[Hg] Umer VALENCIA [facility] 04-26-2022 11:04-0500 Heart rate 62 /min Umer VALENCIA [facility] 04-26-2022 11:04-0500 Respiratory rate 16 /min Umer VALENCIA [facility] 04-26-2022 11:04-0500 Systolic blood pressure 134 mm[Hg] Umer VALENCIA [facility] 12-03-2021 13:08-0400 Blood Pressure Location Umer VALENCIA [facility] 12-03-2021 13:08-0400 Diastolic blood pressure 70 mm[Hg] Umer VALENCIA [facility] 12-03-2021 13:08-0400 Heart rate 65 /min Umer VALENCIA [facility] 12-03-2021 13:08-0400 Respiratory rate 16 /min Umer VALENCIA [facility] 12-03-2021 13:08-0400 Systolic blood pressure 109 mm[Hg] Umer VALENCIA [facility] 09-03-2021 13:39-0400 Blood Pressure Location Umer VALENCIA [facility] 09-03-2021 13:39-0400 Diastolic blood pressure 67 mm[Hg] Umer VALENCIA [facility] 09-03-2021 13:39-0400 Heart rate 68 /min Umertatum VALENCIA [facility] 09-03-2021 13:39-0400 Respiratory rate 16 /min Umer VALENCIA [facility] 09-03-2021 13:39-0400 Systolic blood pressure 102 mm[Hg] Umer VALENCIA [facility] [employer] Encounters Encounter Date Encounter Type Care Provider Facility Start: 02-10-2024 End: 02-10-2024 ambulatory Marianela X Orbrittney Facility:[facility] Start: 02-10-2024 End: 02-10-2024 Patient encounter procedure Marianela X Nataly [facility] Start: 02-01-2024 End: 02-03-2024 Clinisync Result Encounter Generic External Data Provider [facility] Unsolicited Start: 02-01-2024 End: 02-03-2024 Clinisync Result Encounter Generic External Data Provider [facility] Unsolicited Start: 01-29-2024 End: 01-29-2024 Bamboo flowsheet Perla Misty Ayla [employer] Work Phone: [facility] Start: 01-29-2024 End: 01-29-2024 Bamboo flowsheet Perla Misty Ayla [employer] Work Phone: [facility] Start: 01-29-2024 End: 01-29-2024 ambulatory PERLA Misty AYLA Not Available Start: 01-29-2024 End: 01-29-2024 Office outpatient visit 25 minutes Perla Misty Ayla [employer] Work Phone: [facility] Comment on [...] 01-08-2024 End: 01-08-2024 Bamboo flowsheet Darcy Sandoval [employer] Work Phone: [facility] Start: 01-08-2024 End: 01-08-2024 Bamboo flowsheet Darcy Sandoval [employer] Work Phone: [facility] Start: 01-08-2024 End: 01-08-2024 Office outpatient visit 25 minutes Darcy Sandoval [employer] Work Phone: [facility] Comment on above: Edema, unspecified t ype (Primary Dx); Altered mental status, unspecified altered mental status type Start: 12-25-2023 End: 12-25-2023 Office outpatient visit 25 minutes Darcy Sandoval [employer] Work Phone: [facility] Comment on above: Localized edema (Leslee jazmine Dx); Acute cough Start: 12-25-2023 End: 12-25-2023 ambulatory DARCY M LORI Not Available Start: 12-25-2023 End: 12-25-2023 Bamboo flowsheet Darcy Sandoval [employer] Work Phone: [facility] Start: 12-25-2023 End: 12-25-2023 Bamboo flowsheet Darcy Sandoval [employer] Work Phone: [facility] Start: 12-05-2023 End: 12-05-2023 ambulatory [facility] Start: 11-30-2023 End: 11-30-2023 ambulatory RENE ANTHONY [facility] Start: 11-28-2023 End: 11-28-2023 [facility] department [facility] Start: 11-21-2023 Evaluation and manag ement of inpatient [facility] Start: 11-18-2023 Evaluation and manag ement of inpatient [facility] Start: 11-17-2023 Evaluation and manag ement of inpatient [facility] Start: 11-15-2023 Evaluation and manag ement of inpatient [facility] Start: 11-15-2023 Evaluation and manag ement of inpatient [facility] Start: 11-15-2023 Evaluation and manag ement of inpatient [facility] Start: 11-15-2023 Evaluation and manag ement of inpatient [facility] Start: 11-15-2023 End: 11-15-2023 ambulatory UNKNOWN PROVIDER Facility:[facility] Start: 11-15-2023 End: 11-22-2023 Evaluation and management of inpatient [facility] Start: 11-13-2023 End: 11-13-2023 ambulatory DARCY SANDOVAL Not Available Start: 11-11-2023 End: 11-11-2023 ambulatory Marianela Ingram Facility:[facility] Start: 11-11-2023 End: 11-11-2023 Patient encounter procedure Marianela X Orbrittney [facility] Start: 10-23-2023 End: 10-23-2023 ambulatory DARCY SANDOVAL Not Available Start: 10-14-2023 End: 10-14-2023 ambulatory Marianela X Orzech Facility:[facility] Start: 10-14-2023 End: 10-14-2023 Patient encounter procedure Marianela X Orzech [facility] Start: 10-09-2023 End: 10-09-2023 ambulatory TOMMY GABRIEL Not Available Start: 08-01-2023 End: 08-01-2023 ambulatory JUAN PABLO ALANIZ Not Available Start: 06-19-2023 End: 06-19-2023 ambulatory JUAN PABLO ALANIZ Not Available Start: 05-13-2023 End: 05-13-2023 ambulatory CAIT DUNHAM Facility:[facility] Start: 05-13-2023 End: 05-13-2023 Patient encounter procedure CAIT DUNHAM [facility] Start: 04-23-2023 End: 04-23-2023 ambulatory JUAN PABLO ALANIZ Not Available Start: 03-26-2023 End: 03-26-2023 ambulatory JUAN PABLO ALANIZ Not Available Start: 02-27-2023 End: 02-27-2023 ambulatory DARCY SANDOVAL Not Available Start: 09-16-2022 End: 09-16-2022 Patient encounter procedure Umer VALENCIA [facility] Start: 07-26-2022 End: 07-27-[address] JUAN PABLO ALANIZ Facility:[facility] Start: 06-26-2022 End: 06-27-[address] JUAN PABOL ALANIZ Facility:[facility] Start: 05-23-2022 End: 05-24-[address] JUAN PABLO ALANIZ Facility:[facility] Start: 04-26-2022 End: 04-26-2022 Patient encounter procedure Umer VALENCIA [facility] Start: 04-22-2022 End: 04-23-[address] JUAN PABLO ALANIZ Facility:[facility] Start: 04-16-2022 End: 04-16-[address] JUAN PABLO ALANIZ Facility:[facility] Start: 04-08-2022 End: 04-08-2022 Patient encounter procedure Umer VALENCIA [facility] Start: 04-04-2022 ambulatory SHELLIE ROJAS . Facility:[facility] Start: 03-08-2022 End: 03-08-[address] JUAN PABLO ALANIZ Facility:[facility] Start: 03-04-2022 Encounter for preprocedural cardiovascular examination DR VINH HOLCOMB . [facility] Start: 03-04-2022 Encounter for preprocedural laboratory examination DR VINH HOLCOMB . [facility] Start: 03-03-2022 End: 03-03-[address] JUAN PABLO ALANIZ Facility:[facility] Start: 03-02-2022 Encounter for preprocedural cardiovascular examination DR VINH HOLCOMB . [facility] Start: 02-26-[address] VINH HOLCOMB [...] encounter procedure Umer VALENCIA [facility] Start: 11-29-2021 End: 11-30-2021 ambulatory MANDIE Goodman [facility] Facility:[facility] Start: 11-27-2021 End: 11-27-[address] VINH HOLCOMB . Facility:[facility] Start: 10-02-2021 End: 10-03-[address] VINH HOLCOMB . Facility:[facility] Start: 09-21-2021 End: 09-21-[address] SUJIT GR . Facility:[facility] Start: 09-19-2021 End: 09-20-2021 ambulatory [facility] Facility:[facility] Start: 09-15-2021 End: 09-16-[address] SPARKLE NELSON Facility:[facility] Start: 09-03-2021 End: 09-03-2021 Patient encounter procedure Umer VALENCIA [facility] Start: 09-03-2021 End: 09-03-[address] JUAN PABLO ALANIZ Facility:[facility] Procedures Date Procedure Procedure Detail Performing Clinician Start: 02-01-2024 BLOOD CULTURE 2 Generic External Data Provider Start: 02-01-2024 BLOOD CULTURE 1 Generic External Data Provider Start: 01-22-2024 BLOOD CULTURE 2 Generic External Data Provider Start: 01-22-2024 BLOOD CULTURE 1 Generic External Data Provider Esophagogastroduodenoscopy Goldie VALENCIA Plan of Treatment Date Care Activity Detail Author Start: 01-07-2025 Urine screening for protein Diabetes: Urine Protein Screening [facility] Start: 12-04-2024 Urine screening for protein Diabetes: Urine Protein Screening [facility] Start: 03-04-2024 End: 03-04-2024 Patient encounter procedure 03/04/2024 3:50 PM EST Procedure Visit [facility] [address] [place] [id number] Tommy Gabriel, DPAminah [address] [facility] [address] [place] [address] [facility] Start: 02-17-2024 Hemoglobin A1c measurement Diabetes: Hemoglobin A1C [facility] Start: 01-29-2024 End: 01-28-2025 Basic metabolic 1998 panel - Serum or Plasma Basic metabolic panel Lab Routine Localized edema Acute cough Expected: 01/29/2024 (Approximate), Expires: 01/28/2025 [facility] Work Phone: Comment on above: Expected: 01/29/2024 (Approximate), Expires: 01/28/2025 Start: 01-29-2024 End: 01-28-2025 Natriuretic peptide B [Mass/volume] in Blood B-type natriuretic peptide Lab Routine Localized edema Acute cough Expected: 01/29/2024 (Approximate), Expires: 01/28/2025 [facility] Comment on above: Expected: 01/29/2024 (Approximate), Expires: 01/28/2025 Start: 01-29-2024 End: 01-29-2024 Patient encounter procedure [facility] Start: 01-08-2024 End: 01-07-2025 Basic metabolic 1998 panel - Serum or Plasma Basic metabolic panel Lab Routine Edema, unspecified type Expected: 01/08/2024 (Approximate), Expires: 01/07/2025 [facility] Work Phone: Comment on above: Expected: 01/08/2024 (Approximate), Expires: 01/07/2025 Start: 01-08-2024 End: 01-07-2025 CBC panel - Blood by Automated count CBC Lab Routine Altered mental status, unspecified altered mental status type Expected: 01/08/2024 (Approximate), Expires: 01/07/2025 [facility] Comment on above: Expected: 01/08/2024 (Approximate), Expires: 01/07/2025 Start: 01-08-2024 End: 01-08-2024 Patient encounter procedure 01/08/2024 1:00 PM EDT Office Visit [facility] [address] [place] [address] Darcy Sandoval NP [address] [place] [address] [facility] Start: 12-25-2023 End: 12-25-2023 Patient encounter procedure 12/25/2023 2:30 PM EDT Office Visit [facility] [address] [place] [address] Darcy Sandoval NP [address] [place] [address] Arrived [facility] Comment on above: Arrived Start: 11-23-2023 Influenza vaccination Influenza Vacc ine (#1) [facility] Start: 08-22-2022 ambulatory Ambulatory Facility: 1 Start: 08-06-2019 Pneumococcal Vaccine : 65+ Years (2 of 2 - PCV) Pneumococcal Vaccine: 65+ Years (2 of 2 - PCV) [facility] Start: 1950 Glaucoma screening Diabetes: R etinopathy Screening [facility] BLOOD CULTURE 1 BLOOD CULTURE 1 Lab Routine 01/22/2024 3:15 PM EDT [facility] BLOOD CULTURE 2 BLOOD CULTURE 2 Lab Routine 01/22/2024 3:19 PM EDT [facility] Immunizations Immunization Date Immunization Notes Care Provider Fa [facility] 01-13-2023 influenza virus vacc ine, unspecified formulation Marianela Ingram [facility] 01-13-2023 Influenza, High-dose Seasonal, Quadrivalent, Preservative Free Darcy Sandoval NP Work Phone: [facility] 02-22-2022 influenza virus vacc ine, unspecified formulation Umer VALENCIA [facility] 02-22-2022 influenza, high dose seasonal, preservative-free Darcy Sandoval [employer] Work Phone: [facility] 12-21-2020 SARS-CoV-2 (COVID-19 ) mRNA BNT-162b2 rix Umer VALENCIA [facility] 11-30-2020 SARS-CoV-2 (COVID-19 ) mRNA BNT-162s5 vax Umer VALENCIA [facility] 01-24-2020 influenza virus vacc ine, unspecified formulation Umer VALENCIA [facility] 01-24-2020 influenza, high dose seasonal, preservative-free Darcy Avonia [employer] Work Phone: [facility] 03-04-2019 influenza virus vacc ine, unspecified formulation Umer VALENCIA [facility] 03-04-2019 influenza, high dose seasonal, preservative-free Darcy Avonia [employer] Work Phone: [facility] 08-05-2018 pneumococcal polysaccharide vaccine, 23 valent Umer VALENCIA [facility] 12-18-2016 influenza virus vacc ine, unspecified formulation Umer VALENCIA [facility] 12-18-2016 influenza, high dose seasonal, preservative-free Darcy Avonia [employer]OR Work Phone: [facility] 12-06-2015 influenza virus vacc ine, unspecified formulation Umer VALENCIA [facility] 12-06-2015 influenza, high dose seasonal, preservative-free Darcy Lori [employer]OR Work Phone: [facility] 12-21-2014 influenza virus vacc ine, unspecified formulation Umer VALENCIA [facility] 12-21-2014 influenza, high dose seasonal, preservative-free Darcy Lori [employer] Work Phone: [facility] Payers Date Payer Category Payer Medicare ANTH MEDICARE ADVANTAGE ANTH MEDICARE ADVANTAGE [id number] 2021-Present [address] [place] [address] [id number] 2021 Medicare (Managed Care) [facility] [id number] 1959 Unknown [id number] 1959 Unknown [id number] 1938 Unknown [id number] 2.840.1.504655.3.579.2 .593 1938 Unknown [id number] 2.840.1.573243.3.579.2 .593 1938 Unknown [id number] 2.16840.1.826295.3.579.2 .593 1938 Unknown [id number] 2.16.840.1.207206.3.579.2 .593 1938 Unknown [id number] 2.16.840.1.969925.3.579.2 .593 1938 Unknown [id number] 2.16.840.1.333126.3.579.2 .593 1938 Unknown [id number] 2.16840.1.462416.3.579.2 .593 1938 Unknown [id number] 2.16.840.1.343490.3.579.2 .593 1938 Unknown [id number] 2.16.840.1.571998.3.579.2 .593 1938 Unknown [id number] 2.16.840.1.940932.3.579.2 .593 1938 Unknown [id number] 2.16.840.1.458432.3.579.2 .593 1938 Unknown [id number] 2.16.840.1.301453.3.579.2 .593 1938 Unknown [id number] 2.16.840.1.490084.3.579.2 .593 1938 Unknown [id number] 2.16840.1.775332.3.579.2 .593 1938 Unknown [id number] 2.16840.1.096074.3.579.2 .593 1938 Unknown [id number] 2.16.840.1.876725.3.579.2 .593 1938 Unknown [id number] 2.16.840.1.272815.3.579.2 .593 1938 Unknown [id number] 2.16840.1.279311.3.579.2 .593 1938 Unknown [id number] 2.16.840.1.680559.3.579.2 .593 1938 Unknown [id number] 2.16.840.1.007631.3.579.2 .593 1938 Unknown [id number] 2.16.840.1.507136.3.579.2 .593 1938 Unknown [id number] 2.16.840.1.692488.3.579.2 .593 1938 Unknown [id number] 2.16.840.1.844914.3.579.2 .593 1938 Unknown [id number] 2.16.840.1.194778.3.579.2 .593 1938 Unknown [id number] 2.16.840.1.246351.3.579.2 .732 1938 Unknown [id number] 2.16.840.1.783609.3.579.2 .173 1938 Unknown [id number] 2.16.840.1.006492.3.579.2 .1259 1938 Unknown [id number] 2.16.840.1.691716.3.579.2 .1259 1938 Unknown [id number] 2.16.840.1.236203.3.579.2 .1259 1938 Unknown [id number] 2.16.840.1.920938.3.579.2 .1259 1938 Unknown [id number] 2.16.840.1.966993.3.579.2 .1259 1938 Unknown [id number] 2.16.840.1.356406.3.579.2 .1259 1938 Unknown [id number] 2.16.840.1.402483.3.579.2 .1259 1938 Unknown [id number] 2.16.840.1.138443.3.579.2 .1259 1938 Unknown [id number] 2.16.840.1.452112.3.579.2 .1259 1938 Unknown [id number] 2.16.840.1.299688.3.579.2 .1259 1938 Unknown [id number] 2.16.840.1.321177.3.579.2 .1259 1938 Unknown [id number] 2.16.840.1.905748.3.579.2 .727 1938 Unknown [id number] 2.16.840.1.276633.3.579.2 .727 1938 Unknown [id number] 2.16.840.1.455185.3.579.2 .727 1938 Unknown [id number] 2.16.840.1.546651.3.579.2 .727 Social History Date Type Detail Facility Start: 09-03-2021 Tobacco smoking status Ex-smoker (fi nding) [facility] Start: 11-01-2022 End: 12-11-2023 Sex Assigned At Male [facility] Start: 04-26-2022 End: 11-14-2022 Tobacco smoking status Never smoked tobacco (finding) [facility] Tobacco smoking status Never [facility] Start: 11-14-2022 Tobacco use and exposure [...] Sex assigned at Not on file [facility] Functional Status Date Assessment Result Facility 11-11-2023 Functional Status N/A [facility] 09-16-2022 Functional Status N/A [facility] 04-26-2022 Functional Status N/A [facility] 12-03-2021 Functional Status N/A [facility] 09-03-2021 Functional Status N/A [facility] Clinical Notes 09-03-2021 to 01-29-2024 Fe Rojo LPN - 01/29/2024 1:00 PM ESTPatient InstructionsDarcy Sandoval NP - 01/08/2024 2:00 PM EDTSjayda Sandoval NP - 12/25/2023 2:30 PM EDT Note Date & Type Note Facility 01-29-2024 History of Present illness Narrative HPI Follow-up Additional comments: [facility] observation: admitted 01/22/24 dx: syncope,hypotension,dehydration discharged home 01/23/24 no med changes made Last edited by Fe Rojo LPN on 01/29/2024 1:07 PM. Subjective Patient ID: Nat Moore is a 83 y.o. male who presents for Follow-up ([facility] observation: admitted 01/22/24 dx: syncope,hypotension,dehydration [...] 12 HOURS OFF) OR PER DIRECTED BY MD 30 patch 4 meloxicam (Mobic) 15 MG [...] Melanie Boyle NP documented in this encounter [facility] 01-29-2024 Instructions Melanie Boyle NP - 01/29/2024 1:00 PM EST Start azithromycin 500 mg daily x 5 days for sinus infection. Okay to take Coricidin HBP over the counter for cough/congestion symptoms Follow up to be determined based on lab results. documented in this encounter [facility] 01-08-2024 History of Present illness Narrative Images [...] Past Medical History: Diagnosis Date Diabetes mellitus ([facility]) Diverticulosis History of being hospitalized 10/07/2023 Acute Metabolic Encephalopathy Hypertension ([facility]) Lung nodule Memory loss Neuropathy Renal cyst 2021 rt cortical Ulcer of foot due to type 2 diabetes mellitus ([facility]) 09/04/2016 Past Surgical History: Procedure Laterality Date [...] follow-ups on file. documented in this encounter [facility] 12-25-2023 History of Present illness Narrative [...] Past Medical History: Diagnosis Date Diabetes mellitus ([facility]) Diverticulosis History of being hospitalized 10/07/2023 Acute Metabolic Encephalopathy Hypertension ([facility]) Lung nodule Memory loss Neuropathy Renal cyst 2021 rt cortical Ulcer of foot due to type 2 diabetes mellitus ([facility]) 09/04/2016 Past Surgical History: Procedure Laterality Date [...] follow-ups on file. 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 [...] initially admitted to the hospitalist service from [place] due to recurrent episodes of syncope secondary [...] his presenting complaints. During his stay in [place] ED he suddenly developed bradycardia prolonged sinus pause up to 18 seconds and became unresponsive. Code was activated and at the beginning of CPR he had regained his consciousness. He had another episode of sinus pause of about 12 seconds prior to transfer, however did not lose his consciousness at this time. On arrival to [facility] blood pressure was 158/72 mmHg, pulse rate 78 bpm, regular, SpO2 100% on room air, respiratory rate 20/min, temperature 97.2. 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 CT of the abdomen with contrast done at [place] ED showed nonobstructive bowel gas pattern with [...] significantly. Daily evaluated the patient on 11/21/2023. [place] slip was removed and they deemed patient [...] Center 12/02/2023 2:20 PM Liu Henning MD [facility] Your medication list START taking these medications Instructions Last Dose Given Next Dose Due amLODIPine 10 mg tablet Commonly known as: Norvasc Start taking on: November 23, 2023 Take 1 tablet (10 mg) by mouth in the morning. Do not start bef (more content not included)... [facility] 11-22-2023 Note Physical Therapy Name: Nat Moore Date of : 1940 Today's Date: 11/22/23 Pt is unable to be seen for therapy at this time secondary to pt to discharge @ 2:00 PM today. Check No Charge Time attempted: 1405 [facility] 11-22-2023 Note Pt originally set fo r 9am BLS transport to [facility] but per MD we will push back to 2pm transport due to high blood pressures. UPDATE 1:15PM- Per pt can still discharge today. Transport set for 2pm via [facility]. Assembled transfer packet and placed by chart. Sent final AVS and discharge orders via [facility]. Notified RN and pt's is aware of transport time. [facility] 11-21-2023 Note Attestation signed by Juan Pablo [...] is for the patient to go to [facility]. Discussed with the family that our [...] with Dr. Liz. Melva Recinos MD PGY2 [facility] 11-21-2023 Note Hospital Medicine Daily Progress Note - 11/21/2023 2:13 PM; Room: [address] [place] [address] Admission: 11/15/2023 2:42 PM; Length of stay: 6 days THE HOSPITALIST TEAM PREFERS TO USE EPIC CHAT FOR COMMUNICATION 7AM-7PM. IF I DO NOT RESPOND WITHIN 15 MINUTES, PLEASE PAGE ME/CALL THROUGH THE STAVE SAW OPERATOR. FROM 7PM-7AM, PLEASE PAGE [phone](COVR) Code Status: Full Code Barriers to Discharge: SNF placement Expected Discharge Date: Today Discharge Destination: [facility] facility Overview Patient is seen for evaluation [...] Acute metabolic encephalopathy Coronary artery disease involving [place] coronary artery of [place] heart with angina pectoris (CMS/HCC) Hypokalemia Hypernatremia Obesity due to excess calories without serious comorbidity Sinus pause Assessment and Plan Episodes of sinus pauses/asystole requiring external pacing maker s/p permanent dual-chamber pacemaker on 11/18/2023 Recurrent syncope Acute encephalopathy Coronary artery disease Chronic kidney disease stage III Essential hypertension Hyperlipidemia Chronic osteoarthritis Obesity Hyponatremia Hypokalemia normocytic anemia Plan Continue inpatient cares Psych following. [place] slip removed. No need for psych admission. [...] CALCIUM mg/dL 8. (more content not included)... [facility] 11-21-2023 Note Physical Therapy Physical Therapy Treatment [...] a.m. Upon entry, pt in bed. This LINE ASSEMBLY UTILITY WORKER introduces herself and intention for session. Per [...] state President. Did state he was at [facility] .) Following Commands: Follows one step commands [...] 2 is given. Gait belt is donned, CONCRETE STONE FINISHING SUPERVISOR is given on the right side and [...] to advance BLEs to EOB but uses LINE ASSEMBLY UTILITY WORKER's hand with his right hand to assist in raising upper body from bed. Bed Mobility 2 Bed Mobility From 2: Scooting Bed Mobility Type 2: To Bed Mobility to 2: (EOB in sitting) Level of Assistance 2: Minimum assistance Bed Mobility Comments 2: Pt uses LINE ASSEMBLY UTILITY WORKER's hand with his right hand to assist in scooting hips to EOB Transfers Transfer: Yes Transfer 1 Transfer From 1: Sit Transfer Type 1: To and from Transfer to 1: Stand Transfer Device 1: none (LINE ASSEMBLY UTILITY WORKER and aide on either side of pt) Transfer Level of Assistance 1: Minimum assistance, x2 Trials/Comments 1: Pt. instructed to (more content not included)... [facility] 11-21-2023 Note Attestation signed by Juan Pablo [...] Patient Name: Nat Moore MRN / CSN: [id number] Date of / Age: 2 1940 / [...] mild cognitive impairment originally presenting to the [facility] Emergency Room on 11/15/2023 for evaluation of recurrent episodes of syncope secondary to spontaneous prolonged sinus pause. The patient was transferred via air ambulance from the [facility]. 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 The patient reports being to his , Donna, and having 4 children. He reports he came from [place] where he lives, but was not able to describe why he came to hospital or where he is now. 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 Reported Behavior: Combative and agitated PRN [...] injection PRN 8/ (more content not included)... [facility] 11-20-2023 Note 11/20/23 1730 Referral Data Referral [...] Support Systems Spouse/significant other Type of Residence FDC facility Will patient need Precert for Post Acute needs? Yes Patient's goal for discharge would like the facility in [place] for rehab 1. [place] 2. [facility] 3. (if not accepted in [place]) she is ok with [facility]. Does the patient need discharge transport arranged? Yes SW called patient to discuss consult for SNF placement for rehab. Patient is currently confused and not able to answer questions. NATALYA discussed network provider list. would like provider in [place] with [facility] [place] [facility] 1st choice. She would [facility] [facility] as 2nd and she is ok if neither can accept for [facility] as 3rd choice. Referrals made as requested. Precert will be needed. NATALYA following. [facility] 11-20-2023 Note Attestation signed by William Feldman [...] initially admitted to the hospitalist service from [place] due to recurrent episodes of syncope secondary [...] his presenting complaints. During his stay in [place] ED he suddenly developed bradycardia prolonged sinus [...] of the abdomen with contrast done at [place] ED showed nonobstructive bowel gas pattern with [...] no focal deficit (more content not included)... [facility] 11-19-2023 Note Speech Developer Automatic ology Speech/Language Pathology Clinical Swallow Assessment Rx: [...] calcifications who presented via air ambulance from [facility] due to recurrent episodes of syncope secondary to spontaneous prolonged sinus pause. He had initially presented for worsening midsternal chest pain lower back pain located in his mid chest aching in nature, 6 out of 10 on intensity scale, nonradiating associated with SOB. During his stay at [place] he developed bradycardia prolonged sinus pause up [...] (in puree) Recommendations Duration of Treatment: 15 [facility] 11-19-2023 Note Attestation signed by William Feldman [...] initially admitted to the hospitalist service from [place] due to recurrent episodes of syncope secondary [...] his presenting complaints. During his stay in [place] ED he suddenly developed bradycardia prolonged sinus [...] of the abdomen with contrast done at [place] ED showed nonobstructive bowel gas pattern with [...] Results CBC: Result (more content not included)... [facility] 11-19-2023 Note Attestation signed by Nora Rivera [...] calcifications who presented via air ambulance from [facility] due to recurrent episodes of syncope secondary to spontaneous prolonged sinus pause. He had initially presented for worsening midsternal chest pain lower back pain located in his mid chest aching in nature, 6 out of 10 on intensity scale, nonradiating associated with SOB. During his stay at [place] he developed bradycardia prolonged sinus pause up [...] NAD. Resting comfortably. Still in restraints. S/p [employer] DC-PPM yesterday, tolerated well. OBJECTIVE Objective [...] Daily, Kulwinder Figueroa MD, 81 mg at 11/19/231006 atorvastatin (Lipitor) tablet 40 mg, 40 mg, oral, Nightly, Kulwinder Figueroa MD, 40 mg at 11/18/232100 dexmedeTOMIDine (Precedex) 4 mcg/mL in sodium chloride [...] , , Once (more content not included)... [facility] 11-19-2023 Note 11/19/23 1125 Admission Assessment Questions [...] Status Interested Does the patient have a casework supervisor assigned to them through their insurance? No Living Arrangement (Current/Prior to Hospitalization) Private residence (with ) Does the patient have history of HHC or SNF? No Assistive Device Cane Patient's goal for discharge likely snf Was patient reminded that goal for discharge is 11am? No Does the patient have transportation at discharge? No Type of Residence FDC facility Is PT/OT appropriate? Yes Is PT/OT ordered? Yes Is SW consult appropriate? Yes Is SW consult ordered? Yes Do you understand the benefits of MyChart? No Were you able to send link and activate MyChart? No [facility] 11-19-2023 Note Consult rec'd for SN F. PT/OT recommend SNF. No family at bedside at this time. SW to try again later. [facility] 11-19-2023 Note Physical Therapy Physical Therapy Evaluation [...] Level of Function Prior Function Level of [place]: Independent with ADLs and functional transfers, Needs [...] patient with difficul (more content not included)... [facility] 11-19-2023 Note Occupational Therapy Occupational Therapy Evaluation Patient Name: Nat Moore : 1940 Today's Date: 11/19/2023 Time In: 941 Time Out: 1005 admitted to the hospitalist service from [place] due to recurrent episodes of syncope secondary [...] directions Memory: Decreased short term memory, Decreased terminal operator memory, Decreased recall of precautions, Decreased recall of biographical information, Decreased recall of recent events Communication: (labored , dysarthic) General Assessment General Assessment Hearing: (torres martinez, hearing aids not observed but has them per nsg) Hand Dominance: Right Home Living Home Living Type of Home: (patient unable to report consistantly) Prior Level of Function Prior Function Level of [place]: (reports indep and drives) Prior Functional Mobility: [...] Little (Min Assist/Contact Guard/Supervision) Total Score OT [facility]: 8 Assessment/Plan OT Assessment OT Impairments: Decreased [...] until discharge & PRN OT Discharge Recommendations: FDC facility placement OT - Discharge Recommendations Placed: Yes OT Goals Multi-Disciplinary Problems (from Occupational Therapy) Active Problems Problem: Balance Start Date: 11/19/23 Goal Start Date Expected End Date End Date LTG - Patient will maintain stand balance to allow for safe mobility 11/19/23 12/17/23 -- Problem: Bathing Start Date: 11/19/23 Goal Start Date Expected End Date End Date LTG (more content not included)... [facility] 11-18-2023 Note Attestation signed by William Feldman [...] [facility] Age - 83 [facility] 1940 [id number] Date of Admission - 11/15/2023 2:42 PM HPI/Hospital Course Nat Moore is a an 83-year-old gentleman with PMH significant for type 2 diabetes mellitus, essential hypertension, hyperlipidemia, CKD stage IIIa, bilateral lower extremity edema on diuretic therapy, osteoarthritis, depression and mild cognitive impairment was initially admitted to the hospitalist service from [place] due to recurrent episodes of syncope secondary [...] his presenting complaints. During his stay in [place] ED he suddenly developed bradycardia prolonged sinus [...] of the abdomen with contrast done at [place] ED showed nonobstructive bowel gas pattern with [...] 11.9* 12.4* HE (more content not included)... [facility] 11-18-2023 Note Attestation signed by Nora Rivera [...] calcifications who presented via air ambulance from [facility] due to recurrent episodes of syncope secondary to spontaneous prolonged sinus pause. He had initially presented for worsening midsternal chest pain lower back pain located in his mid chest aching in nature, 6 out of 10 on intensity scale, nonradiating associated with SOB. During his stay at [place] he developed bradycardia prolonged sinus pause up [...] NAD. Resting comfortably. Still in restraints. S/p [employer] DC-PPM this morning, tolerated well. OBJECTIVE [...] Nightly, Nils Zimmer MD, 5 mg at 11/17/23 212 Oxygen Therapy, , inhalation, Continuous, Art Mckoy [...] PRN, Nils Lam (more content not included)... [facility] 11-18-2023 Note DUAL CHAMBER PACEMAK ER IMPLANT PROCEDURE NOTE DATE OF PROCEDURE: 11/18/23 PERFORMING PHYSICIAN: Dr. Sam Oscar CONSENT: Patient LOCATION: EP Lab PROCEDURE PERFORMED: 1. Implantation of pacemaker ([employer]) 2. Ultrasound guided venous access INDICATIONS: [...] using modified seldinger technique using a 5 [place] micro-puncture needle on two occasions and 0.35 [...] for the device above the muscle. 6 [place] Safesheaths were placed over the wire. An active fixation [employer] pacing lead was then delivered through the 6Fsheath to the right ventricle. After confirmation of lead position on orthogonal views (WILKINSON and TURKMEN) to confirm septal position, the screw was [...] was then removed. Then an active fixation [employer] lead was delivered through the 6Fsheath to the right atrial appendage. After confirmation of lead position on orthogonal views (WILKINSON and TURKMEN), the screw was activated. Good sensing parameters, [...] any concerns. Sam Oscar MD Cardiac Electrophysiology [facility] 11-17-2023 Note Attestation signed by Nora Rivera [...] Reason for Consult: Sinus Pauses SUBJECTIVE HPI: aNt Moore is a 83 y.o. male with PMHx significant for HTN/HLD, CKD 3A, dementia, obesity, coronary calcifications who presented via air ambulance from [facility] due to recurrent episodes of syncope secondary to spontaneous prolonged sinus pause. He had initially presented for worsening midsternal chest pain lower back pain located in his mid chest aching in nature, 6 out of 10 on intensity scale, nonradiating associated with SOB. During his stay at [place] he developed bradycardia prolonged sinus pause up [...] tablet 500 mg, 500 mg, oral, Nightly, iNls Zimmer MD nystatin (Mycostatin) 100,000 unit/gram powder, [...] oral, Daily, [place] (more content not included)... [facility] 11-17-2023 Note Attestation signed by William Feldman [...] initially admitted to the hospitalist service from [place] due to recurrent episodes of syncope secondary [...] his presenting complaints. During his stay in [place] ED he suddenly developed bradycardia prolonged sinus [...] of the abdomen with contrast done at [facility] showed nonobstructive bowel gas pattern with a [...] planning on taking the patient to the [facility] tomorrow for possible transvenous pacemaker placement SUBJECTIVE [...] hours) at 11/17/2023 (more content not included)... [facility] 11-16-2023 Note Cardiovascular Labor atory Report FINAL [...] left radial artery was obtained. A 6 [place] glide sheath was inserted without difficulty. Difficulty [...] a mid v (more content not included)... [facility] 11-16-2023 Note Attestation signed by Salena Alcaraz [...] -- 82 13 100 % -- -- 11/15/231934 157/77 36.9 ???C (98.4 ???F) Temporal 75 16 100 % -- -- 11/15/231929 -- -- -- 73 14 100 % -- -- 11/15/231914 -- -- -- 77 12 99 % -- -- 11/15/23 190 -- -- -- 72 17 100 % [...] Value Ventricular Rate 85 Atrial Rate 85 IL Interval 266 QRS DURATION 104 QT Interval 390 QTC CALCULATION(BAZETT) 464 P [place] 71 R-Bronx -60 T Wave [place] 49 Impression Sinus rhythm with 1st degree A-V block Left axis deviation Inferior infarct (cited on or before 21-JUL-2012) Cannot rule out Anterior infarct (cited on or before 15-NOV-2023) Abnormal ECG When compared with ECG of 15-NOV-2023 19:56, (unconfirmed) No significant change was found Lab Results Component Value Date TROPONINI 0.01 11/15/2023 Transthoracic echo (TTE) complete Result Date: 11/15/[address] [facility] Heart Station [address] [place] [address] [phone] (fax) Echocardiogram-[facility] Name: NAT MOORE Study Date: 11/15/2023 05:06 PM B/P: 158 mmHg/72 mmHg HR: Date of : 1940 Location: [facility] Height: 65 in. Age: 83 year(s) [...] sizeNo significant v (more content not included)... [facility] 11-15-2023 Note CODE BLUE was called on this patient after he sustained a 10 the second sinus pause and then a 7-second sinus pause. Patient with brief LOC. Patient with multiple episodes of nausea and vomiting. MICU fellow at bedside who states he will transfer patient to MICU for transcutaneous pacing. [facility] 11-15-2023 Note Hospital Medicine History and Physical 11/15/2023 5:58 PM THE HOSPITALIST TEAM PREFERS TO USE [employer] CHAT FOR COMMUNICATION 7AM-7PM. IF I DO NOT RESPOND WITHIN 15 MINUTES, PLEASE PAGE ME/CALL THROUGH THE STAVE SAW OPERATOR. FROM 7PM-7AM, PLEASE PAGE [phone](COVR) Chief Complaint No chief complaint on file. History of Present Illness Nat Moore is an 83 y.o. severely obese male with a medical history significant for type 2 diabetes mellitus, essential hypertension, hyperlipidemia, CKD stage IIIa, bilateral lower extremity edema on diuretic therapy, osteoarthritis, coronary calcifications, depression, mild cognitive impairment, who was transferred via air ambulance from the [facility] due to recurrent episodes of syncope secondary to spontaneous prolonged sinus pause. Patient states that he presented to the [place] ED due to worsening midsternal chest pain [...] his presenting complaints. During his stay in [place] ED he suddenly developed bradycardia prolonged sinus [...] of the abdomen with contrast done at [place] ED showed nonobstructive bowel gas pattern with [...] no oral abnorma (more content not included)... [facility] 11-11-2023 Hospital Discharge instructions Patient Education 11/11/2023 [...] your health care provider. General instructions Take nsgf-knh-sxjrery and prescription medicines only as told by [...] provider. Document Revised: 11/27/2020 Document Reviewed: 11/27/2020 [employer] Patient Education 2022 [employer]. Follow Up Care 10/14/2023 13:29:56 With:RAUL Ingram APRN, RIANNA Abad, URL Address: When: Unknown Comments:f/up in 3 mos [facility] 11-11-2023 Note Patient Education Obstetrics and Gynecology [...] health care provider. General instructions ? Take kbxv-hlo-amejcbi and prescription medicines only as told by [...] your health care (more content not included)... [facility] 09-16-2022 Hospital Discharge instructions Patient Education 09/16/2022 [...] your health care provider. General instructions Take pivn-jnv-ufrntcn and prescription medicines only as told by [...] provider. Document Revised: 11/27/2020 Document Reviewed: 11/27/2020 [employer] Patient Education 2022 [employer]. Follow Up Care 04/26/2022 11:39:09 With:ERIK MENG, Umer Schultz, URL Address: [facility] [address] [place] [address]- When: Unknown [facility] Note CONSULTATION CONSULTATION DATE: 05/23/2022 HISTORY: [...] indicated. Patient agrees with this plan. [facility] 04-26-2022 Hospital Discharge instructions Patient Education [...] urethra. Follow these instructions at home: Take tgmu-ako-zqzkmqs and prescription medicines only as told by [...] 03/10/2006 Document Revised: 02/02/2019 Document Reviewed: 04/14/2017 [employer] Patient Education 2020 [employer]. Follow Up Care 04/08/2022 14:01:00 With:ERIK MENG, Umer Schultz, URL Address: [address] [place] [address] When: Unknown [facility] 04-08-2022 Hospital Discharge instructions Patient Education [...] urethra. Follow these instructions at home: Take feoc-yaa-akidsub and prescription medicines only as told by [...] 03/10/2006 Document Revised: 02/02/2019 Document Reviewed: 04/14/2017 [employer] Patient Education 2020 [employer]. Follow Up Care 12/03/2021 14:11:02 With:ERIK MENG, Umer Schultz, URL Address: [facility] [address], [place] [address]- When: Unknown [facility] 01-22-2022 Note CONSULTATION CONSULTATION DATE: 01/22/2022 CHIEF [...] proceed. CC: Juan Pablo Alaniz M.D. 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 He does not use heat or ice to his back at this time. Current medications include gabapentin 200 mg t.i.d., nabumetone 750 mg b.i.d., Fyffe 5/325 t.i.d. Patient does use a walking [...] L3 and L4, L5. A refill for Fyffe 5/325 t.i.d. will be sent today. He will receive an oral U-Tox in the office today. Supportive measures such as stretching, a menthol heat rub and heat application to his back were discussed. I did recommend a Boost supplement daily. Patient will be followed up in the office post procedure and agrees to move forward. [facility] 12-03-2021 Hospital Discharge instructions Patient Education [...] urethra. Follow these instructions at home: Take zsit-sls-dtpxwry and prescription medicines only as told by [...] 03/10/2006 Document Revised: 02/02/2019 Document Reviewed: 04/14/2017 [employer] Patient Education 2020 [employer]. Follow Up Care 09/03/2021 14:17:23 With:ERIK MENG, Umer Schultz, URL Address: [facility] [address] [place] [address]- [phone] When:04/04/2022 Comments:PVR [facility] 10-02-2021 Note CONSULTATION PROCEDURE DATE: 10/02/2021 [...] he reports mitigation of his pain symptomatology. [facility] Signed and Approved by: DR VINH HOLCOMB . 10/09/2021 09:28:00 [facility] 10-02-2021 Note CONSULTATION CONSULTATION DATE: 10/02/2021 [...] three times a day. We will re-prescribe Fyffe 5/325 t.i.d. which he had received from [...] to proceed. CC: Juan Pablo Alaniz M.D. [facility] Signed and Approved by: DR VINH HOLCOMB . 10/09/2021 09:28:00 [facility] 09-03-2021 Hospital Discharge instructions Patient [...] 03/10/2006 Document Revised: 11/27/2018 Document Reviewed: 02/07/2017 [employer] Patient Education 2020 [employer]. 09/03/2021 13:53:06 Benign Prostatic Hyperplasia Benign Prostatic [...] urethra. Follow these instructions at home: Take hqxe-srl-xkurhai and prescription medicines only as told by [...] 03/10/2006 Document Revised: 02/02/2019 Document Reviewed: 04/14/2017 [employer] Patient Education 2020 [employer]. Follow Up Care 07/03/2021 15:21:16 With:ERIK MENG, Umer Schultz, URL Address: [facility] [address] [place] [address]- [phone] When:Within 3 Month(s) Comments:f/u in 3 months with PVR scan [facility] Evaluation + Plan note Future Appointments Appointment Date:12/03/2021 01:15:00 PM Scheduled Provider:Umer VALENCIA MD Location:[facility] Appointment Type:URO Office Visit [facility] Evaluation + Plan note Future Appointments Appointment Date:04/08/2022 12:45:00 PM Scheduled Provider:Umer VALENCIA MD Location:[facility] Appointment Type:URO Office Visit [facility] [employer] Evaluation + Plan note Future Appointments Appointment Date:04/26/2022 10:15:00 AM Scheduled Provider:Umer VALENCIA MD Location:[facility] Appointment Type:URO Office Visit [facility] [employer] Evaluation + Plan note Future Appointments Appointment Date:07/22/2022 08:45:00 AM Scheduled Provider:Umer VALENCIA MD Location:[facility] Appointment Type:URO Office Visit [facility] [employer] Evaluation + Plan note Future Appointments Appointment Date:12/20/2022 08:30:00 AM Scheduled Provider:Umer VALENCIA MD Location:[facility] Appointment Type:URO Office Visit [facility] [employer] Evaluation + Plan note Future Appointments Appointment Date:11/11/2023 01:00:00 PM Scheduled Provider:RAUL Ingram APRN Marianela X Location:[facility] Appointment Type:URO Office Visit [facility] [employer] Evaluation + Plan note Future Appointments Appointment Date:02/10/2024 12:30:00 PM Scheduled Provider:RAUL Ingram APRN Marianela X Location:[facility] Appointment Type:URO Office Visit [facility] [employer] Evaluation note Diagnosis Localized edema- Primary Edema Acute cough documented in this encounter [facility]* Diagnosis Edema, unspecified type- Primary Altered mental status, unspecified altered mental status type documented in this encounter [facility] HealthcareEvaluation note* Diagnosis Acute cough- Primary Upper respiratory tract infection, unspecified type Localized edema Edema documented in this encounter [facility] HealthcareHospital course Narrative No data available for this section [facility] Hospital Discharge instructions No data available for this section [facility] progress note No data available for this section [facility] Summary Purpose Family History No Family [...] section and content) DATE CREATED AUTHOR 11/14/2020 [facility] DATE CREATED AUTHOR AUTHOR'S ORGANIZ ATION 08/02/2022 [facility] DATE CREATED AUTHOR AUTHOR'S ORGANIZ ATION 11/17/2023 [facility] DATE CREATED AUTHOR AUTHOR'S ORGANIZ ATION 11/24/2023 [facility] DATE CREATED AUTHOR AUTHOR'S ORGANIZ ATION 12/07/2023 [facility] DATE CREATED AUTHOR AUTHOR'S ORGANIZ ATION 01/31/2024 [facility] EPIC DATE CREATED AUTHOR AUTHOR'S ORGANIZ ATION 02/13/2024 [facility] Care Team (unrecognized sect ion and content) Nurse Special Relationship Specialty Start Date End Date Juan Pablo Alaniz MD [address] [facility] [address] [place] [address] PCP - Peg CHURCHILL 03/24/21 Juan Pablo Alaniz MD [address] [place] [address] PCP - General Internal Medicine 07/30/22 Nurse Special Relationship Specialty Start Date End Date Juan Pablo Alaniz MD [address] [place] [address] PCP - Peg CHURCHILL 03/24/21 Juan Pablo Alaniz MD [address] [place] [address] PCP - General Internal Medicine 07/30/22 Nurse Special Relationship Specialty Start Date End Date Juan Pablo Alaniz MD [address] [place] [address] PCP - Peg CHURCHILL 03/24/21 Juan Pablo Alaniz MD [address] [place] [address] PCP - General Internal Medicine 07/30/22 Nurse Special Relationship Specialty Start Date End Date Juan Pablo Alaniz MD [address] [place] [address] PCP - Peg CHURCHILL 03/24/21 Juan Pablo Alaniz MD [address] [place] [address] PCP - General Internal Medicine 07/30/22 Nurse Special Relationship Specialty Start Date End Date Juan Pablo Alaniz MD [address] [place] [address] PCP - Peg CHURCHILL 03/24/21 Juan Pablo Alaniz MD [address] [place] [address] PCP - General Internal Medicine 07/30/22 Nurse Special Relationship Specialty Start Date End Date Juan Pablo Alaniz MD [address] [place] [address] PCP - Peg CHURCHILL 03/24/21 Juan Pablo Alaniz MD [address] [place] [address] PCP - General Internal Medicine 07/30/22 Nurse Special Relationship Specialty Start Date End Date Juan Pablo Alaniz MD [address] [place] [address] PCP - Peg CHURCHILL 03/24/21 Juan Pablo Alaniz MD [address] [place] [address] PCP - General Internal Medicine 07/30/22 Reason for Visit (unrecogniz ed section and content) Reason Comments Hospital Follow-up Reason Comments Edema Reason Comments Follow-up TB observation: adm itted 01/22/24 dx: syncope,hypotension,dehydration discharged [...] BE BASED ON THE PRIMARY CLINICAL RECORDS. [facility]. provides no warranty or guarantee of the accuracy or completeness of information in this document.
--- NOTE | 2024-02-15 20:30 | ED.GENADUL1 ---
HPI HPI - General Adult General Chief complaint: Altered Mental Status Stated complaint: Confused Time Seen by Provider: 02/15/24 20:20 Source: patient Mode of arrival: ambulance History of Present Illness HPI narrative: patient has dementia and lives with his who is the primary care information associate. His fell last PM and is in the hospital with a fractured hip. Family had him sent to the ER because he is not able to care for himself. Son states he is not able to take care of him. Son stop by the house tonight and his father was still in bed. Patient states he drove himself this to breakfast this AM and this is the last time he ate. Son states he has been in bed all day. He has limited ability to walk. He is completely dependent on his . Patient also states he has visiting nursing services coming to help him. Son denies this also. Son had him transferred here because the patient can not care for himself and the son is not able to care for him either Related Data Home Medications ?Medication ?Instructions ?Recorded ?Confirmed allopurinol 300 mg tablet 300 mg PO DAILY 07/26/23 02/01/24 docusate sodium 100 mg capsule 100 mg PO DAILY PRN constipation 07/26/23 02/01/24 donepezil 10 mg tablet 10 mg PO BEDTIME 07/26/23 02/01/24 fluoxetine 20 mg capsule 20 mg PO DAILY 07/26/23 02/01/24 gabapentin 100 mg capsule 200 mg PO TID 07/26/23 02/01/24 glipizide 10 mg tablet 10 mg PO BID 07/26/23 02/01/24 meloxicam 15 mg tablet 15 mg PO BEDTIME 07/26/23 02/01/24 methocarbamol 500 mg tablet 500 mg PO BEDTIME 07/26/23 02/01/24 omeprazole 40 mg capsule,delayed 40 mg PO .ACB 07/26/23 02/01/24 release tamsulosin 0.4 mg capsule 0.4 mg PO DAILY 07/26/23 02/01/24 furosemide 40 mg tablet 40 mg PO DAILY 11/15/23 02/01/24 potassium chloride 20 mEq 20 meq PO DAILY 11/15/23 02/01/24 tablet,extended release(part/cryst) trospium 60 mg capsule,extended 60 mg PO DAILY 11/15/23 02/01/24 release 24 hr amlodipine 5 mg tablet 5 mg PO .QD 01/22/24 02/01/24 aspirin 81 mg chewable tablet 1 tab PO .QD 01/22/24 02/01/24 atorvastatin 40 mg tablet 40 mg PO .QHS 01/22/24 02/01/24 fluoxetine 10 mg capsule 10 mg PO DAILY 01/22/24 02/01/24 oxybutynin chloride 5 mg 5 mg PO .QHS 01/22/24 02/01/24 tablet,extended release 24 hr quetiapine 25 mg tablet 25 mg PO BID 01/22/24 02/01/24 trazodone 100 mg tablet 100 mg PO .QHS 01/22/24 02/01/24 azithromycin 500 mg tablet 500 mg PO DAILY 02/01/24 02/01/24 chlorpheniramine-acetaminophen 2 2 tab PO Q6H 02/01/24 02/01/24 mg-325 mg tablet (Coricidin HBP Cold and Flu) lidocaine 5 % topical patch 1 patch topical QAM 02/01/24 02/01/24 Previous Rx's ?Medication ?Instructions ?Recorded candesartan 32 mg tablet (Atacand) 32 mg PO DAILY #30 tabs 10/07/23 cefdinir 300 mg capsule 600 mg (2 x 300 mg) PO DAILY #20 02/03/24 caps magnesium oxide 400 mg (241.3 mg 400 mg PO BID #60 tabs 02/03/24 magnesium) tablet Allergies Allergy/AdvReac Type Severity Reaction Status Date / Time Penicillins Allergy Intermediate Unknown Verified 02/15/24 20:18 Opioid HPI Opioid Management Most Recent Opioid Data: Last Pain Scale 10 02/02/24 11:00 02/02/24 Last ORT Total Score 0 01/22/24 18:49 01/22/24 Last ORT Risk Category Low Risk 01/22/24 18:49 01/22/24 Ur Phencyclidine Scrn Negative (NEGATIVE) 07/26/23 08:10 07/26/23 Review of Systems ROS Status of ROS 10 or more systems reviewed and unremarkable except as noted in history and below [facility] Medical History (Updated 02/15/24 @ 22:49 by Ryan Prasad MD) Cellulitis ?L03.90 - Cellulitis, unspecified (ICD-10) Pneumonia ?J18.9 - Pneumonia, unspecified organism (ICD-10) Generalized weakness ?R53.1 - Weakness (ICD-10) Accidental fall ?W19.XXXA - Unspecified fall, initial encounter (ICD-10) History of pacemaker ?Z95.0 - Presence of cardiac pacemaker (ICD-10) Vomiting ?R11.10 - Vomiting, unspecified (ICD-10) Acute metabolic encephalopathy ?G93.41 - Metabolic encephalopathy (ICD-10) 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 (ICD-10) Low back pain ?M54.50 - Low back pain, unspecified (ICD-10) Dementia ?F03.90 - Unspecified dementia, unspecified severity, without behavioral disturbance, psychotic disturbance, mood disturbance, and anxiety (ICD-10) Depression ?F32.A - Depression, unspecified (ICD-10) Hyperuricemia ?E79.0 - Hyperuricemia without signs of inflammatory arthritis and tophaceous disease (ICD-10) HLD (hyperlipidemia) ?E78.5 - Hyperlipidemia, unspecified (ICD-10) Type 2 diabetes mellitus ?E11.9 - Type 2 diabetes mellitus without complications (ICD-10) HTN (hypertension) ?I10 - Essential (primary) hypertension (ICD-10) Surgical History Pacemaker ?Z95.0 - Presence of cardiac pacemaker (ICD-10) Social History (Updated 01/22/24 @ 18:51 by Kalli Middleton) Within the past year, how often did you have a drink containing alcohol: never Within the past year, how many standard drinks containing alcohol did you have on a typical day: 1 or 2 Within the past year, how often did you have six or more drinks on one occasion: never Total score: 0 Score interpretation: A score less than 4 is consistent with normal alcohol consumption. Smoking status: Never smoker Non-prescribed substance use: denies use Highest level of school completed/degree received: high school graduate Are you now , , , , never or living with a partner: Little interest or pleasure in doing things: not at all Feeling down, depressed, or hopeless: not at all Feel stressed/tense/nervous/anxious/difficulty sleeping: not at all Do you think of yourself as: straight/heterosexual Gender Identity: male Exam Constitutional Vital Signs, click to edit/add: Last Vital Signs Temp 97.5 F L 02/15/24 20:13 Pulse 86 02/15/24 20:13 Resp 18 02/15/24 20:13 BP 172/84 H 02/15/24 20:13 Pulse Ox 98 02/15/24 20:13 O2 Del Method Room Air 02/15/24 20:13 Common normals: no apparent distress, average body habitus, healthy appearing, alert and well nourished [facility] Common normals: normocephalic and head/scalp atraumatic Eye Common normals: EOMs intact bilaterally and conjunctivae normal Respiratory Common normals: normal respiratory effort, no retractions, no use of accessory muscles and clear to auscultation bilaterally Cardio Common normals: regular rate, regular rhythm, S1 normal heart sound and S2 normal heart sound GI Common normals: Normal to inspection, nondistended, normoactive bowel sounds present, soft to palpation and non-tender Extremity Other: edema bilat lower ext Neuro Sensorium/orientation: awake, alert, oriented to person and orientation impaired Psych Appearance: grossly normal Course Vital Signs Vital signs: Vital Signs Temperature 97.5 F L 02/15/24 20:13 Pulse Rate 86 02/15/24 20:13 Respiratory Rate 18 02/15/24 20:13 Blood Pressure 172/84 H 02/15/24 20:13 Pulse Oximetry 98 02/15/24 20:13 Oxygen Delivery Method Room Air 02/15/24 20:13 Temperature 97.5 F L 02/15/24 20:13 Pulse Rate 86 02/15/24 20:13 Respiratory Rate 18 02/15/24 20:13 Blood Pressure 172/84 H 02/15/24 20:13 Pulse Oximetry 98 02/15/24 20:13 Oxygen Delivery Method Room Air 02/15/24 20:13 Medical Decision Making MDM Narrative Medical decision making narrative: demented patient who requires 24 hour care. His who is his computer meteorologist fell last PM and fractured her hip. He is now home alone and not able to take care of himself. Squad called by family because patient in need of 24 hour care. Son who lives locally states he can not take care of him and wants him admitted for assisted placement until his mother is again able to provide the care. Basic labs ordered and he is at his baseline. UA ordered but patient yet able to give a sample. Discussed with the hospitalist and patient admitted to observation bed and will need social science manager involvement Lab Data Labs: Lab Results 02/15/24 Range/Units 20:45 WBC 7.2 (4.0-11.0) 10^3/uL RBC 3.48 L (4.70-6.10) 10^6/uL Hgb 11.3 L (14.0-18.0) g/dL Hct 33.8 L (42.0-54.0) % MCV 97.1 H (80.0-94.0) fL MCH 32.5 (25.9-34.0) pg MCHC 33.4 (29.9-35.2) g/dL RDW 14.2 (11.0-15.0) % Plt Count 161 (150-450) 10^3/uL MPV 10.4 (9.5-13.5) fL Neut % (Auto) 62.1 (43.0-75.0) % Lymph % (Auto) 24.7 (20.5-60.0) % Charlton % (Auto) 6.2 (1.7-12.0) % Eos % (Auto) 6.1 (0.9-7.0) % Baso % (Auto) 0.6 (0.2-2.0) % Neut # (Auto) 4.5 (1.4-6.5) 10^3/uL Lymph # (Auto) 1.8 (1.2-3.8) 10^3/uL Charlton # (Auto) 0.5 (0.3-0.8) 10^3/uL Eos # (Auto) 0.4 (0.0-0.7) 10^3/uL Baso # (Auto) 0.0 (0.0-0.1) 10^3/uL Abs Immat Gran (auto) 0.02 (0.00-0.03) 10^3/uL Imm/Tot Granulo (auto) 0.3 (0.0-0.5) % Sodium 146 H (136-145) mmol/L Potassium 4.6 (3.5-5.1) mmol/L Chloride 109 H (98-107) mmol/L Carbon Dioxide 27.7 (21.0-32.0) mmol/L Anion Gap 13.9 BUN 25.0 H (7.0-18.0) mg/dL Creatinine 1.69 H (0.70-1.30) mg/dL Est GFR ( Amer) 47 L (>=60 mL/min/1.73m^2) Est GFR (Non-Af Amer) 39 L (>=60 mL/min/1.73m^2) BUN/Creatinine Ratio 14.8 Glucose 79 (74-106) mg/dL Calcium 8.7 (8.5-10.1) mg/dL Total Bilirubin 0.5 (0.2-1.0) mg/dL AST 22 (15-37) U/L ALT 26 (16-63) U/L Alkaline Phosphatase 88 (46-116) U/L Total Protein 6.5 (6.4-8.2) g/dL Albumin 2.9 L (3.4-5.0) g/dL Globulin 3.6 g/dL Albumin/Globulin Ratio 0.8 Discharge Plan Discharge Chief Complaint: Altered Mental Status Clinical Impression: Dementia Patient Disposition: Admitted as Observation
[2024-02-15 20:54] LABS: Basophils Percent Auto 0.6 % (0.2-2.0); Eosinophils Absolute Auto 0.4 10^3/uL (0.0-0.7); Eosinophils Percent Auto 6.1 % (0.9-7.0); Hematocrit 33.8 % (42.0-54.0); Hemoglobin 11.3 g/dL (14.0-18.0); Immature Granulocytes Abs Auto 0.02 10^3/uL (0.00-0.03); Immature Granulocytes Pct Auto 0.3 % (0.0-0.5); Lymphocytes Absolute Auto 1.8 10^3/uL (1.2-3.8); Lymphocytes Percent Auto 24.7 % (20.5-60.0); Mean Corpuscular HGB Conc 33.4 g/dL (29.9-35.2); Mean Corpuscular Hemoglobin 32.5 pg (25.9-34.0); Mean Corpuscular Volume 97.1 fL (80.0-94.0); Mean Platelet Volume 10.4 fL (9.5-13.5); Monocytes Absolute Auto 0.5 10^3/uL (0.3-0.8); Monocytes Percent Auto 6.2 % (1.7-12.0); Neutrophils Absolute Auto 4.5 10^3/uL (1.4-6.5); Neutrophils Percent Auto 62.1 % (43.0-75.0); Platelet Count 161 10^3/uL (150-450); Red Blood Count 3.48 10^6/uL (4.70-6.10); Red Cell Distribution Width 14.2 % (11.0-15.0); White Blood Count 7.2 10^3/uL (4.0-11.0)
[2024-02-15 21:15] LABS: Alanine Aminotransferase 26 U/L (16-63); Albumin Globulin Ratio 0.8; Albumin Level 2.9 g/dL (3.4-5.0); Alkaline Phosphatase 88 U/L (46-116); Anion Gap 13.9; Aspartate Amino Transferase 22 U/L (15-37); BUN Creatinine Ratio 14.8; Bilirubin Total 0.5 mg/dL (0.2-1.0); Calcium 8.7 mg/dL (8.5-10.1); Carbon Dioxide 27.7 mmol/L (21.0-32.0); Chloride 109 mmol/L (98-107); Estimated GFR (African America 47 (>=60 mL/min/1.73m^2); Estimated GFR (Non-African Ame 39 (>=60 mL/min/1.73m^2); Globulin 3.6 g/dL; Glucose 79 mg/dL (74-106); Potassium 4.6 mmol/L (3.5-5.1); Sodium 146 mmol/L (136-145); Total Protein 6.5 g/dL (6.4-8.2)
--- OUTSIDE RECORDS SUMMARY | 2024-02-15 22:57 | XMS_ITS | CCD ---
Author Organization [facility] Care Team Providers Care Safe Deposit Attendant Name Role Phone JUAN PABLO ALANIZ Primary [...] Unavailable JUAN DAVID LUI Attending Unavailable [facility] Unavailable Juan Pablo [...] sources) Penicillin; Translations: [penicillin] Drug Allergy 12-01-2021 [facility] (3 sources) Penicillins; Translations: [PENICILLINS] Drug allergy (disorder) 11-15-2023 [facility] (11 sources) Penicillin G Drug Allergy 11-01-[address] [facility] Healthcare Work Phone: (10 sources) Codeine Drug Allergy 12-25-2023 [facility] Healthcare Medications Current Medications Medication Drug [...] complication, without long-term current use of insulin ([facility]) TAKE ONE TABLET BY MOUTH TWICE A [...] Daily, # 30 tab(s), Refills(s) 11, Pharmacy: [facility], 167, cm, 09/16/22 15:10:00 EDT, Height/Length Dosing, 120, kg, 09/16/22 15:10:00 EDT, Weight Dosing Start Date: 10/01/23 Status: Ordered Start: 09-16-2022 End: 09-11-2023 take 1 tablet by mouth once daily Vesicare 10 mg Tab 10 mg = 1 tab(s), Oral, Daily, X 30 day(s), # 30 tab(s), Refills(s) 11, Pharmacy: [facility], 167, cm, 09/16/22 15:10:00 EDT, Height/Length Dosing, 120, kg, 09/16/22 15:10:00 EDT, Weight Dosing Start Date: 09/16/22 Stop Date: 09/11/23 Status: Ordered Start: 04-26-2022 take 1 tablet by shannon th once daily Vesicare 5 mg Tab 5 mg = 1 tab(s), Oral, Daily, # 30 tab(s), Refills(s) 11, Pharmacy: [facility], 174, cm, 12/03/21 13:40:00 EDT, Height/Length Dosing, 112, kg, 12/03/21 13:40:00 EDT, Weight Dosing Start Date: 04/26/22 Status: Ordered tamsulosin hydrochloride 0.4 mg oral capsule (20 sources) alpha-Adrenergic Levi Start: 10-01-2023 take 1 capsule by mouth once daily Flomax 0.4 mg Cap 0.4 mg = 1 cap(s), Oral, Daily, # 30 cap(s), Refills(s) 11, Pharmacy: [facility], 167, cm, 09/16/22 15:10:00 EDT, Height/Length Dosing, 120, kg, 09/16/22 15:10:00 EDT, Weight Dosing Start Date: 10/01/23 Status: Ordered Start: 10-31-[address] [facility] every twenty-four hours in the morning tamsulosin [...] Daily, # 30 tab(s), Refills(s) 3, Pharmacy: [facility], 167, cm, 11/11/23 13:29:00 EDT, Height/Length [...] disease (13 sources) Atherosclerotic heart disease of [place] coronary artery with unspecified angina pectoris; Translations: [...] 11-29-2021 Episodic Other aftercare (1 source) Other slipcover cutter (current) drug therapy; Translations: [OTH USP CURRENT DRUG THERAPY] Onset: 07-31-2022 Episodic Other aftercare (1 source) assisted (current) use of oral hypoglycemic drugs; Translations: [USP USE ORAL HYPOGLYCEMIC DX] Onset: 07-31-2022 Episodic [...] OF COVID-19] Onset: 03-06-2022 Unclassified (1 source) 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 [facility] LEFT AC [facility] BLOOD CULTURE 2on 02-06-2024 BLOOD CULTURE 2 Blood Culture 2 NG5D NO GROWTH AT 5 DAYS.^NO GROWTH AT 5 DAYS. [facility] 1002 [facility] No Panel Informationon 02-05 [facility] Basic Metabolic Profon 12-04 Anion gap [Moles/Vol] 9 mmol/L Normal 9-16 [facility] Comment on above: Performed By: #### B MP #### [facility] [address] [place] [address] Family Centered Specialist: Eliud Leonard MD BUN/CRE Ratio 20 Normal 9-20 [facility] Comment on above: Performed By: #### B MP #### [facility] [address] [place] [address] Family Centered Specialist: Eliud Leonard MD Calcium [Mass/Vol] 8.5 mg/dL Low 8.6-10.4 [facility] Comment on above: Performed By: #### B MP #### [facility] [address] [address] Family Centered Specialist: Eliud Leonard MD Chloride [Moles/Vol] 108 mmol/L High 98-107 [facility] Comment on above: Performed By: #### B MP #### [facility] [address] [place] [address] Family Centered Specialist: Eliud Leonard MD CO2 [Moles/Vol] 26 mmol/L Normal 20-31 [facility] Comment on above: Performed By: #### B MP #### [facility] [address] [place] [address] Family Centered Specialist: Eliud Leonard MD Creatinine [Mass/Vol] 1.6 mg/dL High 0.70-1.20 [facility] Comment on above: Performed By: #### B MP #### [facility] [address] [place] [address] Family Centered Specialist: Eliud Leonard MD GFR/1.73 sq M.predicted among non-blacks MDRD (S/P/Bld) [Vol rate/Area] 41 mL/min/{1.73_m2} Low >60 [facility] Comment on above: Result Comment: These results [...] secretion. Performed By: #### B MP #### [facility] [address] [place] [address] Family Centered Specialist: Eliud Leonard MD Glucose [Mass/Vol] 66 mg/dL Low 74-99 [facility] Comment on above: Performed By: #### B MP #### [facility] [address] [place] [address] Family Centered Specialist: Eliud Leonard MD Potassium [Moles/Vol] 4.3 mmol/L Normal 3.7-5.3 [facility] Comment on above: Performed By: #### B MP #### [facility] [address] [place] [address] Family Centered Specialist: Eliud Leonard MD Sodium [Moles/Vol] 143 mmol/L Normal 136-145 [facility] Comment on above: Performed By: #### B MP #### [address] [place] [address] Family Centered Specialist: Eliud Leonard MD Urea nitrogen [Mass/Vol] 32 mg/dL High 8-23 [facility] Comment on above: Performed By: #### B MP #### [facility] [address] [place] [address] [place] [place], [place] [id number] Family Centered Specialist: Eliud Leonard MD Cult,Urineon 12-01-2023 Cult,Urine Specimen Description .CLEAN CATCH URINE Culture NO SIGNIFICANT GROWTH Report Status FINAL 12/01/2023 Normal [facility] Comment on above: Performed By: #### U RC #### [address] [id number] Family Centered Specialist: [place] MD [address] [place], [place] [phone] Family Centered Specialist: Eliud Leonard MD Urinalysis, Routineon 2023 Bilirubin, SemiQt,Ur Negative Normal NEG [facility] Comment on above: Performed By: #### U A #### [address] [place], [place] [id number] Family Centered Specialist: Eliud Leonard MD Blood, Urine Negative Normal NEG [facility] Comment on above: Performed By: #### U A #### [facility] [address] [place] [address] Dr[address] [place], [place] [id number] Family Centered Specialist: Eliud Leonard MD Clarity (U) Clear Normal CLEAR [facility] Comment on above: Performed By: #### U A #### [address] [place] [address] Family Centered Specialist: Eliud Leonard MD Color (U) Yellow Normal YEL [facility] Comment on above: Performed By: #### U A #### [facility] [address] [place] [address] [place] [address] Family Centered Specialist: Eliud Leonard MD Glucose Ql (U) Negative Normal NEG [facility] in [facility] Comment on above: Performed By: #### U A #### [facility] [address] [place] [address] [place] [address] Family Centered Specialist: Eliud Leonard MD Ketones Ql (U) Negative Normal NEG [facility] Comment on above: Performed By: #### U A #### [facility] [address] [place] [address] [place] [address] Family Centered Specialist: Eliud Leonard MD Leukocyte esterase Test strip Ql (U) Negative Normal NEG [facility] Comment on above: Performed By: #### U A #### [address] [place] [address] Family Centered Specialist: Eliud Leonard MD Nitrite,Ur Negative Normal NEG [facility] Comment on above: Performed By: #### U A #### [facility] [address] [place] [address] [place] [address] Family Centered Specialist: Eliud Leonard MD PH,Ur 6.0 Normal 5.0-9.0 [facility] Comment on above: Performed By: #### U A #### [facility] [address] [place] [address] [place] [address] Family Centered Specialist: Eliud Leonard MD Protein Ql (U) Negative Normal NEG [facility] Comment on above: Performed By: #### U A #### [facility] [address] [place] [address] [place] [address] Family Centered Specialist: Eliud Leonard MD Spec. [place],Ur 1.020 Normal 1.010-1.020 [facility] Comment on above: Performed By: #### U A #### [facility] [address] [place] [address] [place] [address] Family Centered Specialist: Eliud Leonard MD Urobilinogen,Ur Normal Normal 0.0-1.0 [facility] Comment on above: Performed By: #### U A #### [facility] [address] [place] [address] Family Centered Specialist: Eliud Leonard MD CT CERVICAL SPINE [...] midline. The ventricles and peripheral sulci are [id number] dilated. There is decreased attenuation in the [...] Deacon Justice MD 11/28/23 Final result Normal [facility] CT HEAD WO CONTRASTon 2023 CT HEAD [...] midline. The ventricles and peripheral sulci are nqsd-[id number] dilated. There is decreased attenuation in the [...] Deacon Justice MD 11/28/23 Final result Normal [facility] 30on 11-22-2023 30 The patient is Moderately [...] and maintained or improved Outcome: Progressing Normal [facility] BASIC METABOLIC PANELon 08-3 Anion gap [Moles/Vol] 10 mmol/L Normal 7-20 [facility] Comment on above: Performed By: #### L [id number] ####[facility] [place] [address] Calcium [Mass/Vol] 8.0 mg/dL Low 8.6-10.3 [facility] Comment on above: Performed By: #### L [id number] ####[facility] ([facility])[address] [place] [address] Chloride [Moles/Vol] 111 mmol/L High 98-107 [facility] Comment on above: Performed By: #### L [id number] ####[facility] ([facility])[address] [place] [address] CO2 [Moles/Vol] 29 mmol/L Normal 21-31 [facility] Comment on above: Performed By: #### L [id number] ####[facility] ([facility])[address] [place] [address] Creatinine [Mass/Vol] 1.36 mg/dL High 0.70-1.30 [facility] Comment on above: Performed By: #### L [id number] ####[facility] ([facility])[address] [place] [address] GLOMERULAR FILTRATION RATE ML/MIN/1.73 SQ M.PREDICTED 51.0 mL/min/1.73m*2 Low >60.0 [facility] Comment on above: Result Comment: [facility]???s estimated glomerular filtration rate (eGFR) will no [...] of individuals. Performed By: #### L [id number] ####[facility] ([facility])[address] [place] [address] Glucose [Mass/Vol] 150 mg/dL High 70-100 [facility] Comment on above: Performed By: #### L [id number] ####[facility] ([facility])[address] [place] [address] Potassium [Moles/Vol] 3.3 mmol/L Low 3.5-5.1 [facility] Comment on above: Performed By: #### L [id number] ####[facility] ([facility])[address] [place] [address] Sodium [Moles/Vol] 147 mmol/L High 136-145 [facility] Comment on above: Performed By: #### L [id number] ####[facility] ([facility])[address] [place] [address] Urea nitrogen [Mass/Vol] 25 mg/dL Normal 7-25 [facility] Comment on above: Performed By: #### L [id number] ####[facility] ([facility])[address] [place] [address] UREA NITROGEN/CREATININ E (MASS RATIO) IN SER/PLAS 18.4 Normal [facility] Comment on above: Performed By: #### L [id number] ####[facility] ([facility])[address] [place] [address] CBC WITH AUTO DIFFERENTIALon 11-22-2023 Basophils (Bld) [#/Vol] 0.06 10*3/uL Normal 0.00-0.20 [facility] Comment on above: Performed By: #### L [id number] ####[facility] ([facility])[address] [place] [address] Basophils/100 WBC (Bld) 0.7 % Normal 0.0-1.0 [facility] Comment on above: Performed By: #### L [id number] ####[facility] ([facility])[address] [place] [address] Eosinophils (Bld) [#/Vol] 0.37 10*3/uL Normal 0.00-0.50 [facility] Comment on above: Performed By: #### L [id number] ####[facility] [place] [address] Eosinophils/100 WBC (Bld) 4.2 % Normal 0.0-6.0 [facility] Comment on above: Performed By: #### L [id number] ####[facility] ([facility])[address] [place] [address] Erythrocyte distribution width (RBC) [Ratio] 15.2 % High 11.5-15.0 [facility] Comment on above: Performed By: #### L [id number] ####[facility] ([facility])[address] [place] [address] ERYTHROCYTE MEAN CORPUSCULAR HEMOGLOBIN CONCENTRATION (G/DL) BY AUTOMATED 32.6 g/dL Normal 32.0-35.0 [facility] Comment on above: Performed By: #### L [id number] ####[facility] ([facility])[address] [place] [address] Hematocrit (Bld) [Volume fraction] 38.3 % Low 39.0-55.0 [facility] Comment on above: Performed By: #### L [id number] ####[facility] [place] [address] Hemoglobin (Bld) [Mass/Vol] 12.5 g/dL Low 13.0-17.0 [facility] Comment on above: Performed By: #### L [id number] ####[facility] ([facility] [place] [address] Immature granulocytes (Bld) [#/Vol] 0.15 10*3/uL Normal 0.00-0.20 [facility] Comment on above: Performed By: #### L [id number] ####[facility] (BEAKER)[address] [place] [address] Immature granulocytes/100 WBC (Bld) 1.7 % High 0.0-1.0 [facility] Comment on above: Performed By: #### L [id number] ####[facility] ([facility]ER)[address] [place] [address] Lymphocytes (Bld) [#/Vol] 1.19 10*3/uL Low 1.20-4.00 [facility] Comment on above: Performed By: #### L [id number] ####[facility] (BEAKER)[address] [place] [address] Lymphocytes/100 WBC (Bld) 13.6 % Low 20.0-45.0 [facility] Comment on above: Performed By: #### L [id number] ####[facility] (BEAKER)[address] [place] [address] MCH (RBC) [Entitic mass] 32.4 pg Normal 27.0-33.0 [facility] Comment on above: Performed By: #### L [id number] ####[facility] ([facility]AKER)[address] [place] [address] MCV (RBC) [Entitic vol] 99.2 fL High 82.0-98.0 [facility] Comment on above: Performed By: #### L [id number] ####[facility] ([facility]AKER)[address] [place] [address] Monocytes (Bld) [#/Vol] 0.93 10*3/uL Normal 0.10-1.00 [facility] Comment on above: Performed By: #### L [id number] ####[facility] (BEAKER)[address] [place] [address] Monocytes/100 WBC (Bld) 10.6 % Normal 5.0-12.0 [facility] Comment on above: Performed By: #### L [id number] ####[facility] (BEAKER)[address] [place] [address] Neutrophils (Bld) [#/Vol] 6.06 10*3/uL Normal 1.60-7.60 [facility] Comment on above: Performed By: #### L [id number] ####[facility] (BEAKER)[address] [place] [address] Neutrophils/100 WBC (Bld) 69.2 % Normal 40.0-72.0 [facility] Comment on above: Performed By: #### L [id number] ####[facility] ([facility])[address] [place] [address] NRBC (PER 100 WBCS) BY AUTOMATED COUNT 0.0 % Normal 0 [facility] Comment on above: Performed By: #### L [id number] ####[facility] ([facility])[address] [place] [address] PLATELETS (10*3/UL) IN BLOOD AUTOMATED COUNT 167 10*3/uL Normal 150-400 [facility] Comment on above: Performed By: #### L [id number] ####[facility] ([facility])[address] [place] [address] RBC (Bld) [#/Vol] 3.86 10*6/uL Low 4.20-5.70 [facility] Comment on above: Performed By: #### L [id number] ####[facility] ([facility])[address] [place] [address] WBC (Bld) [#/Vol] 8.76 10*3/uL Normal 4.00-10.60 [facility] Comment on above: Performed By: #### L [id number] ####[facility] ([facility])[address] [place] [address] 30on 11-21-2023 30 The patient is Moderately Stable - Low risk of patient condition declining or worsening The patient's goals for the shift include rest/comfort The clinical goals for the shift include VSS Problem: Pain - Adult Goal: Verbalizes/displays adequate comfort level or baseline comfort level Outcome: Progressing Problem: Safety - Adult Goal: Free from fall injury Outcome: Progressing Normal [facility] 30 The patient is Moderately Stable - [...] and maintained or improved Outcome: Progressing Normal [facility] BASIC METABOLIC PANELon 08-3 -2023 Anion gap [Moles/Vol] 9 mmol/L Normal 7-20 [facility] Comment on above: Performed By: #### L [id number] ####[facility] (BEAKER)[address] [facility] [place] [address] Calcium [Mass/Vol] 8.0 mg/dL Low 8.6-10.3 [facility] Comment on above: Performed By: #### L [id number] ####[facility] (BEAKER)[address] [employer] [facility] [place] [address] Chloride [Moles/Vol] 113 mmol/L High 98-107 [facility] Comment on above: Performed By: #### L [id number] ####[facility] (BEAKER)[address] [facility] [place] [address] CO2 [Moles/Vol] 27 mmol/L Normal 21- [facility] Comment on above: Performed By: #### L [id number] ####[facility] (BEAKER)[address] [facility] [place] [address] Creatinine [Mass/Vol] 1.47 mg/dL High 0.70-1.30 [facility] Comment on above: Performed By: #### L [id number] ####[facility] (BEAKER)[address] [place] [facility] [facility] [place] [address] GLOMERULAR FILTRATION RATE ML/MIN/1.73 SQ M.PREDICTED 46.5 mL/min/1.73m*2 Low >60.0 [facility] Comment on above: Result Comment: [facility]???s estimated glomerular filtration rate (eGFR) will no [...] of individuals. Performed By: #### L [id number] ####[facility] ([facility])[address] [facility] [place] [address] Glucose [Mass/Vol] 135 mg/dL High 70-100 [facility] Comment on above: Performed By: #### L [id number] ####[facility] ([facility])[address] [facility] [place] [address] Potassium [Moles/Vol] 3.3 mmol/L Low 3.5-5.1 [facility] Comment on above: Performed By: #### L [id number] ####[facility] ([facility])[address] [facility] [place] [facility] [place] [address] Sodium [Moles/Vol] 146 mmol/L High 136-145 [facility] Comment on above: Performed By: #### L [id number] ####[facility] ([facility])[address] [facility] [place] [facility] [place] [address] Urea nitrogen [Mass/Vol] 35 mg/dL High 7-25 [facility] Comment on above: Performed By: #### L [id number] ####[facility] ([facility])[address] [place] [address] UREA NITROGEN/CREATININ E (MASS RATIO) IN SER/PLAS 23.8 Normal [facility] Comment on above: Performed By: #### L [id number] ####[facility] ([facility])[address] [place] [address] CBCon 11-21-2023 Erythrocyte distribution width (RBC) [Ratio] 15.3 % High 11.5-15.0 [facility] Comment on above: Performed By: #### L [id number] ####[facility] (BEAKER)[address] [place] [address] ERYTHROCYTE MEAN CORPUSCULAR HEMOGLOBIN CONCENTRATION (G/DL) BY AUTOMATED 32.7 g/dL Normal 32.0-35.0 [facility] Comment on above: Performed By: #### L [id number] ####[facility] (BEAKER)[address] [place], [place] [address] Hematocrit (Bld) [Volume fraction] 38.5 % Low 39.0-55.0 [facility] Comment on above: Performed By: #### L [id number] ####[facility] (BEAKER)[address] [place] [address] Hemoglobin (Bld) [Mass/Vol] 12.6 g/dL Low 13.0-17.0 [facility] Comment on above: Performed By: #### L [id number] ####[facility] (BEAKER)[address] [place] [address] MCH (RBC) [Entitic mass] 32.1 pg Normal 27.0-33.0 [facility] Comment on above: Performed By: #### L [id number] ####[facility] (BEAKER)[address] [place] [address] MCV (RBC) [Entitic vol] 98.2 fL High 82.0-98.0 [facility] Comment on above: Performed By: #### L [id number] ####[facility] (BEAKER)[address] [place] [address] PLATELETS (10*3/UL) IN BLOOD AUTOMATED COUNT 172 10*3/uL Normal 150-400 [facility] Comment on above: Performed By: #### L [id number] ####[facility] (BEAKER)[address] [place] [address] RBC (Bld) [#/Vol] 3.92 10*6/uL Low 4.20-5.70 [facility] Comment on above: Performed By: #### L [id number] ####[facility] (BEAKER)[address] [place] [address] WBC (Bld) [#/Vol] 9.67 10*3/uL Normal 4.00-10.60 [facility] Comment on above: Performed By: #### L [id number] ####[facility] (BEAKER)[address] [place] [address] 30on 11-20-2023 30 The patient is Moderately Stable - Low risk of patient condition declining or worsening The patient's goals for the shift include restraints off The clinical goals for the shift include stable hemodynamics Over the shift, the patient did not make progress toward the following goals. [facility] 30 Daily Case Managemen t Update Multidisciplinary [...] OT Six Click Score: 8 PT Recommendations: [facility] facility placement OT Recommendations: [facility] facility placement New Consults: Ancillary Consults (From admission, onward) Start Ordered 11/19/23 0924 Inpatient consult to Social Work Once Provider: (Not yet assigned) Question Answer Comment Select all services needed for the patient [facility] (30 day convalescent stay) Please indicate [...] OT? Answer: eval and treat 11/19/23 0756 [facility] CONSULTon 11-20-2023 CONSULT -- Attestation signed by Juan Pablo Liz MD at 11/21/2023 12:08 PM As noted. Patient to be staffed in person on 11/20 Psychiatry Consultation Service - New Assessment Patient Name: Nat Moore MRN / CSN: [id number] Date of / Age: 2 1940 / [...] mild cognitive impairment originally presenting to the [facility] Emergency Room on 11/15/2023 for evaluation of recurrent episodes of syncope secondary to spontaneous prolonged sinus pause. The patient was transferred via air ambulance from the [facility]. Psychiatry was consulted for management of agitation secondary to dementia . Emergency Room Course: Imaging/Workup: On arrival to [facility] the patient's blood pressure was 158/72 mmHg, pulse rate 78 bpm, regular, SpO2 100% on room air, respiratory rate 20/min, temperature 97.2. 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 CT of the abdomen with contrast done at [place] [facility] showed nonobstructive bowel gas pattern with [...] would con (more content not included)... Normal [facility] NURSNOTEon 11-20-2023 NURSNOTE Patient Name: Nat Moore [...] voiced no concerns at this time. The typewriter operator automatic urged the primary RN to call the rapid team if any concerns arise overnight. Chevy Hines, MIGUEL Rapid Response Team Nurse [phone] 11/20/2023 11:34 PM Normal [facility] 30on 11-19-2023 30 Daily Case Managemen t Update Multidisciplinary rounds have been completed. Barriers to Discharge: 11/18- patient here from [facility] for recurrent episodes of syncope secondary to spontaneous prolonged sinus pauses. During his stay in [place] [facility] he suddenly developed bradycardia prolonged sinus [...] Select all services needed for the patient [facility] (30 day convalescent stay) Please indicate [...] Answer: eval and treat 11/19/23 0756 Normal [facility] BASIC METABOLIC PANELon 10-23 Anion gap [Moles/Vol] 11 mmol/L Normal 7-20 [facility] Comment on above: Performed By: #### L [id number] ####[facility] (BEAKER)[address] [place] [address] Calcium [Mass/Vol] 8.0 mg/dL Low 8.6-10.3 [facility] Comment on above: Performed By: #### L [id number] ####[facility] (BEAKER)[address] [place] [address] Chloride [Moles/Vol] 112 mmol/L High 98-107 [facility] Comment on above: Performed By: #### L [id number] ####[facility] ([facility])[address] [place] [address] CO2 [Moles/Vol] 26 mmol/L Normal 21-31 [facility] Comment on above: Performed By: #### L [id number] ####[facility] ([facility])[address] [place] [address] Creatinine [Mass/Vol] 1.69 mg/dL High 0.70-1.30 [facility] Comment on above: Performed By: #### L [id number] ####[facility] ([facility])[address] [place] [address] GLOMERULAR FILTRATION RATE ML/MIN/1.73 SQ M.PREDICTED 39.3 mL/min/1.73m*2 Low >60.0 [facility] Comment on above: Result Comment: The [facility]???s estimated glomerular filtration rate (eGFR) will no [...] of individuals. Performed By: #### L [id number] ####[facility] ([facility] [place] [address] Glucose [Mass/Vol] 122 mg/dL High 70-100 [facility] Comment on above: Performed By: #### L [id number] ####[facility] ([facility] [place] [address] Potassium [Moles/Vol] 3.5 mmol/L Normal 3.5-5.1 [facility] Comment on above: Performed By: #### L [id number] ####[facility] (BEAKER)[address] [place] [address] Sodium [Moles/Vol] 145 mmol/L Normal 136-145 [facility] Comment on above: Performed By: #### L [id number] ####[facility] (BEAKER)[address] [place] [address] Urea nitrogen [Mass/Vol] 49 mg/dL High 7-25 [facility] Comment on above: Performed By: #### L [id number] ####[facility] ([facility] [place] [address] UREA NITROGEN/CREATININ E (MASS RATIO) IN SER/PLAS 29.0 Normal [facility] Comment on above: Performed By: #### L [id number] ####[facility] ([facility])[address] [place] [address] CBCon 11-19-2023 Erythrocyte distribution width (RBC) [Ratio] 15.0 % Normal 11.5-15.0 [facility] Comment on above: Performed By: #### L [id number] #### [facility] ([facility]) [address] [place] [address] ERYTHROCYTE MEAN CORPUSCULAR HEMOGLOBIN CONCENTRATION (G/DL) BY AUTOMATED 32.8 g/dL Normal 32.0-35.0 [facility] Comment on above: Performed By: #### L [id number] #### [facility] ([facility]) [address] [place] [address] Hematocrit (Bld) [Volume fraction] 38.7 % Low 39.0-55.0 [facility] Comment on above: Performed By: #### L [id number] #### [facility] ([facility]) [address] [place] [address] Hemoglobin (Bld) [Mass/Vol] 12.7 g/dL Low 13.0-17.0 [facility] Comment on above: Performed By: #### L [id number] #### [facility] (BEAKER) [address] [place] [address] MCH (RBC) [Entitic mass] 31.8 pg Normal 27.0-33.0 [facility] Comment on above: Performed By: #### L [id number] #### [facility] ([facility]) [address] [place] [address] MCV (RBC) [Entitic vol] 97.0 fL Normal 82.0-98.0 [facility] Comment on above: Performed By: #### L [id number] #### [facility] ([facility]) [address] [place] [address] PLATELETS (10*3/UL) IN BLOOD AUTOMATED COUNT 148 10*3/uL Low 150-400 [facility] Comment on above: Performed By: #### L [id number] #### [facility] ([facility]) [address] [place] [address] RBC (Bld) [#/Vol] 3.99 10*6/uL Low 4.20-5.70 [facility] Comment on above: Performed By: #### L [id number] #### [facility] ([facility]) [address] [place] [address] WBC (Bld) [#/Vol] 7.82 10*3/uL Normal 4.00-10.60 [facility] Comment on above: Performed By: #### L [id number] #### [facility] ([facility]) [address] [place] [address] [facility] 11-17-2023 NITINS -- Attestation signed by Sam [...] Information Date: 11/17/23 Procedure: Implant PPM Location: [facility] (Cath) Providers: Nora Rivera MD Clinical information reviewed: Allergies Meds Physical Exam Airway Mallampati: III Cardiovascular Rhythm: regular Rate: normal Dental Pulmonary Breath sounds clear to auscultation Abdominal Abdomen: soft Anesthesia Plan Additional Equipment Requests Normal [facility] BASIC METABOLIC PANELon - Anion gap [Moles/Vol] 11 mmol/L Normal 7-20 [facility] Comment on above: Performed By: #### L [id number] #### [facility] (AKER) [address] [place] [address] Calcium [Mass/Vol] 8.0 mg/dL Low 8.6-10.3 [facility] Comment on above: Performed By: #### L [id number] #### [facility] ([facility] [address] [place] [address] Chloride [Moles/Vol] 109 mmol/L High 98-107 [facility] Comment on above: Performed By: #### L [id number] #### [facility] (BEAKER) [address] [place] [address] CO2 [Moles/Vol] 25 mmol/L Normal 21-31 [facility] Comment on above: Performed By: #### L [id number] #### [facility] (BEAKER) [address] [place] [address] Creatinine [Mass/Vol] 1.42 mg/dL High 0.70-1.30 [facility] Comment on above: Performed By: #### L [id number] #### [facility] ([facility]) [address] [place] [address] GLOMERULAR FILTRATION RATE ML/MIN/1.73 SQ M.PREDICTED 48.4 mL/min/1.73m*2 Low >60.0 [facility] Comment on above: Result Comment: The [facility]???s estimated glomerular filtration rate (eGFR) will no [...] individuals. Performed By: #### L [id number] #### [facility] ([facility]) [address] [place] [address] Glucose [Mass/Vol] 169 mg/dL High 70-100 [facility] Comment on above: Performed By: #### L [id number] #### [facility] ([facility]) [address] [place] [address] Potassium [Moles/Vol] 4.3 mmol/L Normal 3.5-5.1 [facility] Comment on above: Performed By: #### L [id number] #### [facility] ([facility]) [address] [place] [address] Sodium [Moles/Vol] 141 mmol/L Normal 136-145 [facility] Comment on above: Performed By: #### L [id number] #### [facility] ([facility]) [address] [place] [address] Urea nitrogen [Mass/Vol] 33 mg/dL High 7-25 [facility] Comment on above: Performed By: #### L [id number] #### [facility] ([facility]) [address] [place] [address] UREA NITROGEN/CREATININ E (MASS RATIO) IN SER/PLAS 23.2 Normal [facility] Comment on above: Performed By: #### L [id number] #### [facility] ([facility]) [address] [place] [address] CBCon 11-17-2023 Erythrocyte distribution width (RBC) [Ratio] 14.9 % Normal 11.5-15.0 [facility] Comment on above: Performed By: #### L [id number] #### [facility] ([facility]) [address] [place] [address] ERYTHROCYTE MEAN CORPUSCULAR HEMOGLOBIN CONCENTRATION (G/DL) BY AUTOMATED 32.2 g/dL Normal 32.0-35.0 [facility] Comment on above: Performed By: #### L [id number] #### [facility] ([facility]) [address] [place] [address] Hematocrit (Bld) [Volume fraction] 39.5 % Normal 39.0-55.0 [facility] Comment on above: Performed By: #### L [id number] #### [facility] ([facility]) [address] [place] [address] Hemoglobin (Bld) [Mass/Vol] 12.7 g/dL Low 13.0-17.0 [facility] Comment on above: Performed By: #### L [id number] #### [facility] ([facility]) [address] [place] [address] MCH (RBC) [Entitic mass] 31.8 pg Normal 27.0-33.0 [facility] Comment on above: Performed By: #### L [id number] #### [facility] ([facility]) [address] [place] [address] MCV (RBC) [Entitic vol] 99.0 fL High 82.0-98.0 [facility] Comment on above: Performed By: #### L [id number] #### [facility] ([facility]) [address] [place] [address] PLATELETS (10*3/UL) IN BLOOD AUTOMATED COUNT 157 10*3/uL Normal 150-400 [facility] Comment on above: Performed By: #### L [id number] #### [facility] ([facility]) [address] [place] [address] RBC (Bld) [#/Vol] 3.99 10*6/uL Low 4.20-5.70 [facility] Comment on above: Performed By: #### L [id number] #### [facility] ([facility]) [address] [place] [address] WBC (Bld) [#/Vol] 9.04 10*3/uL Normal 4.00-10.60 [facility] Comment on above: Performed By: #### L [id number] #### [facility] ([facility]) [address] [place] [address] HEMOGLOBIN A1Con 11-17-2023 Glucose [Mass/Vol] 114 mg/dL Normal [facility] Comment on above: Order Comment: NO VA RIANT Performed By: #### L [id number] ####[facility] ([facility] [address] HbA1c (Bld) [Mass fraction] 5.6 % Normal 4.0-6.0 [facility] Comment on above: Order Comment: NO VA RIANT Performed By: #### L [id number] ####[facility] ([facility])[address] [place] [address] HPon 11-17-2023 HP -- Attestation signed by [...] placement of PPM in the AM. Normal [facility] LIPID PANELon 11-17-2023 CHOL/HDL 3.8 mg/dL Normal [facility] Comment on above: Performed By: #### L [id number] ####[facility] ([facility])[address] [place] [address] Cholesterol [Mass/Vol] 127 mg/dL Normal 120-200 [facility] Comment on above: Performed By: #### L [id number] ####[facility] ([facility])[address] [place] [address] Magnesium [Mass/Vol] 81 mg/dL Normal 40-149 [facility] Comment on above: Result Comment: TRIG LYCERIDE REFERENCE RANGE: 20 YEARS AND OLDER CARDIOVASCULAR RISK LESS THAN 150 mg/dL LOW RISK 150 TO 199 mg/dL BORDERLINE RISK 200 mg/dL AND GREATER HIGH RISK Performed By: #### L [id number] ####[facility] ([facility])[address] [place] [address] Magnesium [Mass/Vol] 78 mg/dL Normal 0-160 [facility] Comment on above: Performed By: #### L [id number] ####[facility] ([facility])[address] [place] [address] Magnesium [Mass/Vol] 33 mg/dL Normal 23-92 [facility] Comment on above: Performed By: #### L [id number] ####[facility] ([facility])[address] [place] [address] NON HDL CHOL. (LDL+VLDL) 94 Normal [facility] Comment on above: Performed By: #### L [id number] ####[facility] ([facility])[address] [place] [address] TOTAL VLDL-C 16 mg/dL Normal 0-40 [facility] Comment on above: Performed By: #### L [id number] ####[facility] ([facility])[address] [place] [address] LIPOPROTEIN A (LPA)on 2023 Magnesium [Mass/Vol] 23 mg/dL Normal <=29 [facility] Comment on above: Result Comment: Perf ormed By: [employer] [address] [place] [address] Lease Buyer: Rivas Castillo MD, PhD CLIA Number: [id number] Performed By: #### L [id number] #### [facility] ([facility]) [address] [place] [address] MAGNESIUMon 11-17-2023 Magnesium [Mass/Vol] 2.0 mg/dL Normal 1.9-2.7 [facility] Comment on above: Performed By: #### L [id number] ####[facility] ([facility])[address] [place] [address] PHOSPHORUSon 11-17-2023 Magnesium [Mass/Vol] 3.1 mg/dL Normal 2.5-5.0 [facility] Comment on above: Performed By: #### L [id number] #### [facility] ([facility]) [address] [facility] [place] [address] 30on 11-16-2023 30 The patient is Moderately [...] or at baseline Outcome: Not Progressing Normal [facility] ANESon 11-16-2023 ANES Patient: Nat Moore Choose [...] Additional Equipment Requests Jovita Sanchez MD, MPH, [facility], [facility], [facility] Interventional Cardiology Pager Email: [email or web address] Normal [facility] B-TYPE NATRIURETIC PEPTIDEon 11-16-2023 Natriuretic peptide B (Bld) [Mass/Vol] 103 pg/mL High 0-100 [facility] Comment on above: Performed By: #### L [id number] #### [facility] ([facility]) [address] [place] [address] BASIC METABOLIC PANELon 10-23 Anion gap [Moles/Vol] 10 mmol/L Normal 7-20 [facility] Comment on above: Performed By: #### L [id number] #### [facility] ([facility]) [address] [place] [address] Calcium [Mass/Vol] 8.2 mg/dL Low 8.6-10.3 [facility] Comment on above: Performed By: #### L [id number] #### [facility] ([facility]) [address] [place] [address] Chloride [Moles/Vol] 108 mmol/L High 98-107 [facility] Comment on above: Performed By: #### L [id number] #### [facility] ([facility]) [address] [place] [address] CO2 [Moles/Vol] 27 mmol/L Normal 21-31 [facility] Comment on above: Performed By: #### L [id number] #### [facility] ([facility]) [address] [place] [address] Creatinine [Mass/Vol] 1.53 mg/dL High 0.70-1.30 [facility] Comment on above: Performed By: #### L [id number] #### [facility] ([facility]) [address] [place] [address] GLOMERULAR FILTRATION RATE ML/MIN/1.73 SQ M.PREDICTED 44.3 mL/min/1.73m*2 Low >60.0 [facility] Comment on above: Result Comment: [facility]???s estimated glomerular filtration rate (eGFR) will no [...] individuals. Performed By: #### L [id number] #### [facility] ([facility]) [address] [place] [address] Glucose [Mass/Vol] 124 mg/dL High 70-100 [facility] Comment on above: Performed By: #### L [id number] #### [facility] ([facility]) [address] [place] [address] Potassium [Moles/Vol] 4.3 mmol/L Normal 3.5-5.1 [facility] Comment on above: Performed By: #### L [id number] #### [facility] ([facility]) [address] [place] [address] Sodium [Moles/Vol] 141 mmol/L Normal 136-145 [facility] Comment on above: Performed By: #### L [id number] #### [facility] (BEAKER) [address] [place] [address] Urea nitrogen [Mass/Vol] 31 mg/dL High 7-25 [facility] Comment on above: Performed By: #### L [id number] #### [facility] (BEAKER) [address] [place] [address] UREA NITROGEN/CREATININ E (MASS RATIO) IN SER/PLAS 20.3 Normal [facility] Comment on above: Performed By: #### L [id number] #### [facility] (BEAKER) [address] [place] [address] Anion gap [Moles/Vol] 10 mmol/L Normal 7-20 [facility] Comment on above: Performed By: #### L [id number] #### [facility] (BEAKER) [address] [place] [address] Calcium [Mass/Vol] 8.1 mg/dL Low 8.6-10.3 [facility] Comment on above: Performed By: #### L [id number] #### [facility] (BEAKER) [address] [place] [address] Chloride [Moles/Vol] 108 mmol/L High 98-107 [facility] Comment on above: Performed By: #### L [id number] #### [facility] (BEAKER) [address] [place] [address] CO2 [Moles/Vol] 27 mmol/L Normal 21-31 [facility] Comment on above: Performed By: #### L [id number] #### [facility] (BEAKER) [address] [place] [address] Creatinine [Mass/Vol] 1.40 mg/dL High 0.70-1.30 [facility] Comment on above: Performed By: #### L [id number] #### [facility] (BEAKER) [address] [place] [address] GLOMERULAR FILTRATION RATE ML/MIN/1.73 SQ M.PREDICTED 49.3 mL/min/1.73m*2 Low >60.0 [facility] Comment on above: Result Comment: [facility]???s estimated glomerular filtration rate (eGFR) will no [...] individuals. Performed By: #### L [id number] #### [facility] ([facility]) [address] [place] [address] Glucose [Mass/Vol] 136 mg/dL High 70-100 [facility] Comment on above: Performed By: #### L [id number] #### [facility] ([facility]) [address] [place] [address] Potassium [Moles/Vol] 4.3 mmol/L Normal 3.5-5.1 [facility] Comment on above: Performed By: #### L [id number] #### [facility] ([facility]) [address] [place] [address] Sodium [Moles/Vol] 141 mmol/L Normal 136-145 [facility] Comment on above: Performed By: #### L [id number] #### [facility] ([facility]) [address] [place] [address] Urea nitrogen [Mass/Vol] 27 mg/dL High 7-25 [facility] Comment on above: Performed By: #### L [id number] #### [facility] ([facility]) [address] [place] [address] UREA NITROGEN/CREATININ E (MASS RATIO) IN SER/PLAS 19.3 Normal [facility] Comment on above: Performed By: #### L [id number] #### [facility] ([facility]) [address] [place] [address] CBCon 11-16-2023 Erythrocyte distribution width (RBC) [Ratio] 15.1 % High 11.5-15.0 [facility] Comment on above: Performed By: #### L [id number] #### [facility] ([facility] [address] [place] [address] ERYTHROCYTE MEAN CORPUSCULAR HEMOGLOBIN CONCENTRATION (G/DL) BY AUTOMATED 32.4 g/dL Normal 32.0-35.0 [facility] Comment on above: Performed By: #### L [id number] #### [facility] ([facility] [address] [place] [address] Hematocrit (Bld) [Volume fraction] 36.7 % Low 39.0-55.0 [facility] Comment on above: Performed By: #### L [id number] #### [facility] ([facility]) [address] [place] [address] Hemoglobin (Bld) [Mass/Vol] 11.9 g/dL Low 13.0-17.0 [facility] Comment on above: Performed By: #### L [id number] #### [facility] ([facility] [address] [place] [address] MCH (RBC) [Entitic mass] 32.0 pg Normal 27.0-33.0 [facility] Comment on above: Performed By: #### L [id number] #### [facility] ([facility]) [address] [place] [address] MCV (RBC) [Entitic vol] 98.7 fL High 82.0-98.0 [facility] Comment on above: Performed By: #### L [id number] #### [facility] ([facility] [address] [place] [address] PLATELETS (10*3/UL) IN BLOOD AUTOMATED COUNT 157 10*3/uL Normal 150-400 [facility] Comment on above: Performed By: #### L [id number] #### [facility] ([facility] [address] [place] [address] RBC (Bld) [#/Vol] 3.72 10*6/uL Low 4.20-5.70 [facility] Comment on above: Performed By: #### L [id number] #### [facility] (BEAKER) [address] [place] [address] WBC (Bld) [#/Vol] 8.83 10*3/uL Normal 4.00-10.60 [facility] Comment on above: Performed By: #### L [id number] #### [facility] (BEJONY) [address] [place] [address] HPon 11-16-2023 HP H&P reviewed. Apparently this [...] wishes to proceed. Jovita Sanchez MD, MPH, [facility], [facility], [facility] Interventional Cardiology Pager Email: [email or web address] .[facility] -- Attestation signed by Art Mckoy MD [...] which are billed separately. Art Mckoy MD [facility] Pulmonary and Critical Care Medicine Adult ICU History & Physical Patient - Nat Moore Age - 83 y.o. - 1940 [id number] Date of Admission - 11/15/2023 2:42 PM Chief Complaint Syncope History of Present Illness Nat Moore is a an 83-year-old gentleman with PMH significant for type 2 diabetes mellitus, essential hypertension, hyperlipidemia, CKD stage IIIa, bilateral lower extremity edema on diuretic therapy, osteoarthritis, depression and mild cognitive impairment was initially admitted to the hospitalist service from [place] due to recurrent episodes of syncope secondary [...] his presenting complaints. During his stay in [place] ED he suddenly developed bradycardia prolonged sinus [...] of the abdomen with contrast done at [place] ED showed nonobstructive bowel gas pattern with [...] planning on taking the patient to the [facility] tomorrow for possible transvenous pacemaker placement. [...] sodium (C (more content not included)... Normal [facility] LACTIC ACID WITH 4 HOUR REFL EXon 11-16-2023 LACTATE (MMOL/L) IN SER/PLAS 1.2 mmol/L Normal 0.5-2.2 [facility] Comment on above: Performed By: #### L [id number] #### [facility] ([facility]) [address] [place] [address] MAGNESIUMon 11-16-2023 Magnesium [Mass/Vol] 2.1 mg/dL Normal 1.9-2.7 [facility] Comment on above: Performed By: #### L [id number] #### [facility] ([facility]) [address] [place] [address] Magnesium [Mass/Vol] 1.7 mg/dL Low 1.9-2.7 [facility] Comment on above: Performed By: #### L [id number] #### [facility] ([facility]) [address] [place] [address] PRO-BNPon 11-16-2023 Natriuretic peptide B (Bld) [Mass/Vol] 576 pg/mL High 0-300 [facility] Comment on above: Result Comment: An a ge-independent cutoff point of 300 pg/ml has a 98% negative predictive value excluding acute heart failure. Test Performed by [facility] [address] [place] [address] - Released 11/16/2023 20:27 Performed By: #### L [id number] ####[employer] [facility] [id number] [place] [address] TSH3 REFLEX TO FT4on 024 THYROTROPIN (MIU/L) IN SER/PLAS BY DETECTION LIMIT <= 0.05 MIU/L 1.67 mIU/L Normal 0.34-5.60 [facility] Comment on above: Performed By: #### L [id number] #### [facility] ([facility]) [address] [place] [address] 30on 11-15-2023 30 The patient is Moderately [...] and maintained or improved Outcome: Progressing Normal [facility] CBCon 11-15-2023 Erythrocyte distribution width (RBC) [Ratio] 15.2 % High 11.5-15.0 [facility] Comment on above: Performed By: #### L [id number] ####[facility] ([facility] [place] [address] ERYTHROCYTE MEAN CORPUSCULAR HEMOGLOBIN CONCENTRATION (G/DL) BY AUTOMATED 32.8 g/dL Normal 32.0-35.0 [facility] Comment on above: Performed By: #### L [id number] ####[facility] ([facility])[address] [place] [address] Hematocrit (Bld) [Volume fraction] 37.8 % Low 39.0-55.0 [facility] Comment on above: Performed By: #### L [id number] ####[facility] ([facility] [place] [address] Hemoglobin (Bld) [Mass/Vol] 12.4 g/dL Low 13.0-17.0 [facility] Comment on above: Performed By: #### L [id number] ####[facility] ([facility])[address] [place] [address] MCH (RBC) [Entitic mass] 31.9 pg Normal 27.0-33.0 [facility] Comment on above: Performed By: #### L [id number] ####[facility] (BEAKER)[address] [place] [address] MCV (RBC) [Entitic vol] 97.2 fL Normal 82.0-98.0 [facility] Comment on above: Performed By: #### L [id number] ####[facility] ([facility] [place] [address] PLATELETS (10*3/UL) IN BLOOD AUTOMATED COUNT 172 10*3/uL Normal 150-400 [facility] Comment on above: Performed By: #### L [id number] ####[facility] ([facility])[address] [place] [address] RBC (Bld) [#/Vol] 3.89 10*6/uL Low 4.20-5.70 [facility] Comment on above: Performed By: #### L [id number] ####[facility] ([facility])[address] [place] [address] WBC (Bld) [#/Vol] 8.89 10*3/uL Normal 4.00-10.60 [facility] Comment on above: Performed By: #### L [id number] ####[facility] ([facility])[address] [place] [address] COMPREHENSIVE METABOLIC PANE Dmitri 11-15-2023 Albumin [Mass/Vol] 3.7 g/dL Normal 3.5-5.7 [facility] Comment on above: Performed By: #### L [id number] #### [facility] ([facility]) [address] [place] [address] ALP [Catalytic activity/Vol] 70 U/L Normal 34-104 [facility] Comment on above: Performed By: #### L [id number] #### [facility] ([facility]) [address] [place] [address] ALT [Catalytic activity/Vol] 7 U/L Normal 7-52 [facility] Comment on above: Performed By: #### L [id number] #### [facility] ([facility]) [address] [place] [address] Anion gap [Moles/Vol] 9 mmol/L Normal 7-20 [facility] Comment on above: Performed By: #### L [id number] #### [facility] ([facility]) [address] [place] [address] AST [Catalytic activity/Vol] 11 U/L Low 13-39 [facility] Comment on above: Performed By: #### L [id number] #### [facility] ([facility]) [address] [place] [address] Bilirubin [Mass/Vol] 0.6 mg/dL Normal 0.3-1.0 [facility] Comment on above: Performed By: #### L [id number] #### [facility] ([facility]) [address] [place] [address] Calcium [Mass/Vol] 8.2 mg/dL Low 8.6-10.3 [facility] Comment on above: Performed By: #### L [id number] #### [facility] ([facility]) [address] [place] [address] Chloride [Moles/Vol] 107 mmol/L Normal 98-107 [facility] Comment on above: Performed By: #### L [id number] #### [facility] ([facility]) [address] [place] [address] CO2 [Moles/Vol] 29 mmol/L Normal 21-31 [facility] Comment on above: Performed By: #### L [id number] #### [facility] ([facility]) [address] [place] [address] Creatinine [Mass/Vol] 1.37 mg/dL High 0.70-1.30 [facility] Comment on above: Performed By: #### L [id number] #### [facility] ([facility]) [address] [place] [address] GLOMERULAR FILTRATION RATE ML/MIN/1.73 SQ M.PREDICTED 50.6 mL/min/1.73m*2 Low >60.0 [facility] Comment on above: Result Comment: [facility]???s estimated glomerular filtration rate (eGFR) will no [...] individuals. Performed By: #### L [id number] #### [facility] ([facility]) [address] [place] [address] Glucose [Mass/Vol] 120 mg/dL High 70-100 [facility] Comment on above: Performed By: #### L [id number] #### [facility] ([facility]) [address] [place] [address] Potassium [Moles/Vol] 4.1 mmol/L Normal 3.5-5.1 [facility] Comment on above: Performed By: #### L [id number] #### [facility] ([facility]) [address] [place] [address] Protein [Mass/Vol] 6.0 g/dL Normal 6.0-8.3 [facility] Comment on above: Performed By: #### L [id number] #### [facility] ([facility]) [address] [place] [address] Sodium [Moles/Vol] 141 mmol/L Normal 136-145 [facility] Comment on above: Performed By: #### L [id number] #### [facility] ([facility]) [address] [place] [address] Urea nitrogen [Mass/Vol] 26 mg/dL High 7-25 [facility] Comment on above: Performed By: #### L [id number] #### [facility] ([facility]) [address] [place] [address] UREA NITROGEN/CREATININ E (MASS RATIO) IN SER/PLAS 19.0 Normal [facility] Comment on above: Performed By: #### L [id number] #### [facility] ([facility]) [address] [place] [address] CONSULTon 11-15-2023 CONSULT Division of Cardiovascular Medicine Interventional Cardiology Consult Chief Complaint: Transfer from [facility]: 83 yo with h/o HTN, CKD, dyslipidemia presented to [facility] with c/o chest and back pain. While being evaluated he had episodes of prolonged sinus pauses (12-18 sec?) with loss of consciousness and vomiting. He was Life flighted to [facility]. On arrival , I evaluated him at [...] infarctions or CHF. Does not see a him assistant. Patient Active Problem List Diagnosis Syncope and [...] plan on (more content not included)... Normal [facility] CT HEAD WO IV CONTRASTon CT HEAD [...] GAGANDEEP CLAUDIO MD. 3 Invalid Interpretation Code [facility] HPon 11-15-2023 Division of Cardiovascular Medicine Interventional Cardiology Consult Chief Complaint: Transfer from [place] HPI: 83 yo with h/o HTN, CKD, dyslipidemia presented to [facility] with c/o chest and back pain. While being evaluated he had episodes of prolonged sinus pauses (12-18 sec?) with loss of consciousness and vomiting. He was Life flighted to [facility]. On arrival , I evaluated him at [...] infarctions or CHF. Does not see a him assistant. Patient Active Problem List Diagnosis Syncope and [...] plan on (more content not included)... Normal [facility] MAGNESIUMon 11-15-2023 Magnesium [Mass/Vol] 1.7 mg/dL Low 1.9-2.7 [facility] Comment on above: Performed By: #### L [id number] #### [facility] (BE[facility]ER) [address] [place] [address] Raven 11-15-2023 ELIEL Patient Manager reach out to Cardiology (Dr. Figueroa) to notify her of the pt transferring to MICU due to change in condition and code blue being called. She asked if the patient was paced at bedside and nurse replied no but pt was transferred and will be paced in MICU. [facility] ELIEL Patient Manager attempted to reach out to family via home number in chart and it wasn't in service. Charge nurse MIGUEL Lloyd was notified and MICU was notified as well by MIGUEL Lloyd. [facility] ELIEL Bedside report given to MIGUEL Ghosh prior to transfer to MICU due to change in condition and code blue being called for asystole lasting 10.19 seconds. [facility] ELIEL Spoke with Dr. Wendy dominguez via [...] done and we'll go from there. Normal [facility] TROPONIN Ion 11-15-2023 Troponin I.cardiac [Mass/Vol] 0.01 ng/mL Normal 0.00-0.04 [facility] Comment on above: Performed By: #### L [id number] #### [facility] (TRUDY) [address] [place] [address] Urology Office/Clinic Noteon 11-12-2023 Urology Office/Clinic Note [...] call if too cost prohibitive, sent to [facility] Stefan Hutchins -f/up in 3 mos 2. [...] 23-valent vac (more content not included)... Normal [facility] Comment on above: Result Comment: Elec [...] Marianela Rodriguez Where: [facility] [address] [place] [address]- You Need to Schedule the Following Appointments [...] Leaking ur (more content not included)... Normal [facility] Patient Letter [facility] October 14, 2023 NAT [address] [place] [address] : 1940 Dear Nat, You missed your [...] your consideration regarding any future cancellations. Sincerely, [address] [address] [facility] Patient Letter FTon 2023 Patient Letter [facility] May 13, [address] [place] [address] : 1940 Dear Nat, You missed your [...] your consideration regarding any future cancellations. Sincerely, [address], [place] [address] [facility] BNPon 07-27-2022 Natriuretic peptide B (Bld) [Mass/Vol] 178.0 pg/mL Normal <=1,800.0 [facility] Comment on above: Performed By: #### C MP, BNP, CMADM #### [facility] [address] [place] [address] Dr. Loyd Parks CARDIAC SPARKLE ADMITon 023 CK [Catalytic activity/Vol] 50 U/L Normal 39-308 [facility] Comment on above: Performed By: #### C MP, BNP, CMADM #### [facility] [address] [place] [address] Dr. Loyd Parks CK.MB [Mass/Vol] 0.83 ng/mL Normal <=3.60 [facility] Comment on above: Performed By: #### C MP, BNP, CMADM #### [facility] [address] [place] [address] Dr. Loyd Parks HSTROP 6.3 pg/mL Normal 4.0-76.1 [facility] Comment on above: Result Comment: CUT- OFF POINTS HAVE BEEN ESTABLISHED BASED ON THE FOURTH UNIVERSAL DEFINITIONS OF MYOCARDIAL INFARCTION. THE UPPER REFERENCE LIMIT (URL) OF TROPONIN, DEFINED THE 99TH PERCENTILE OF cTnI DISTRIBUTION IN A REFERENCE POPULATION, HAS BEEN CONFIRMED THE DECISION THRESHOLD FOR MS DIAGNOSIS. Performed By: #### C MP, BNP, CMADM #### [facility] [address] [place] [address] Dr. Loyd Parks WM 121 ng/mL Critically high 16-96 [facility] Comment on above: Performed By: #### C MP, BNP, CMADM #### [facility] [address] [place] [address] Dr. Loyd Parks CBC AUTO DIFFon 07-27-2022 BASO # 0.1 103/ul Normal 0.0-0.1 [facility] Comment on above: Performed By: #### C BC #### [facility] [address] [place] [address] Dr. Loyd Parks Basophils/100 WBC (Bld) 0.6 % Normal 0.2-2.0 [facility] Comment on above: Performed By: #### C BC #### [facility] [address] [place] [address] Dr. Loyd Parks EO # 0.5 103/ul Normal 0.0-0.7 [facility] Comment on above: Performed By: #### C BC #### [facility] [address] [place] [address] Dr. Loyd Parks Eosinophils/100 WBC (Bld) 4.8 % Normal 0.9-7.0 [facility] Comment on above: Performed By: #### C BC #### [facility] [address] [place] [address] Dr. Loyd Parks Erythrocyte distribution width (RBC) [Ratio] 13.5 % Normal 11.0-15.0 [facility] Comment on above: Performed By: #### C BC #### [facility] [address] [place] [address] Dr. Loyd Parks Hematocrit (Bld) [Volume fraction] 39.7 % Critically low 42.0-54.0 [facility] Comment on above: Performed By: #### C BC #### [facility] [address] [place] [address] Dr. Loyd Parks Hemoglobin (Bld) [Mass/Vol] 13.1 g/dL Critically low 14.0-18.0 [facility] Comment on above: Performed By: #### C BC #### [facility] [address] [place] [address] Dr. Loyd Parks IG # 0.05 10e3/ul Critically high 0.00-0.03 [facility] Comment on above: Performed By: #### C BC #### [facility] [address] [place] [address] Dr. Loyd Parks IG % 0.5 % Normal 0.0-0.5 [facility] Comment on above: Performed By: #### C BC #### [facility] [address] [place] [address] Dr. Loyd Parks LYMPH # 1.4 103/ul Normal 1.2-3.8 [facility] Comment on above: Performed By: #### C BC #### [facility] [address] [place] [address] Dr. Loyd Parks Lymphocytes/100 WBC (Bld) 14.1 % Critically low 20.5-60.0 [facility] Comment on above: Performed By: #### C BC #### [facility] [address] [place] [address] Dr. Loyd Parks MANUAL DIFF REQ NO Normal [facility] Comment on above: Performed By: #### C BC #### [facility] [address] [place] [address] Dr. Loyd Parks MCH (RBC) [Entitic mass] 31.6 pg Normal 25.9-34.0 [facility] Comment on above: Performed By: #### C BC #### [facility] [address] [place] [address] Dr. Loyd Parks MCHC (RBC) [Mass/Vol] 33.0 g/dL Normal 29.9-35.2 [facility] Comment on above: Performed By: #### C BC #### [facility] [address] [place] [address] Dr. Loyd Parks MCV (RBC) [Entitic vol] 95.7 fL Critically high 80.0-94.0 [facility] Comment on above: Performed By: #### C BC #### [facility] [address] [place] [address] Dr. Loyd Parks MONO # 1.0 103/ul Critically high 0.3-0.8 [facility] Comment on above: Performed By: #### C BC #### [facility] [address] [place] [address] Dr. Loyd Parks Monocytes/100 WBC (Bld) 9.7 % Normal 1.7-12.0 [facility] Comment on above: Performed By: #### C BC #### [facility] [address] [place] [address] Dr. Loyd Parks NEUT # 7.2 103/ul Critically high 1.4-6.5 [facility] Comment on above: Performed By: #### C BC #### [facility] [address] [place] [address] Dr. Loyd Parks Neutrophils/100 WBC (Bld) 70.3 % Normal 43.0-75.0 [facility] Comment on above: Performed By: #### C BC #### [facility] [address] [place] [address] Dr. Loyd Parks Platelet mean volume (Bld) [Entitic vol] 10.8 fL Normal 9.5-13.5 [facility] Comment on above: Performed By: #### C BC #### [facility] [address] [place] [address] Dr. Loyd Parks PLT 199 103/ul Normal 150-450 [facility] Comment on above: Performed By: #### C BC #### [facility] [address] [place] [address] Dr. Loyd Parks RBC 4.15 106/ul Critically low 4.70-6.10 [facility] Comment on above: Performed By: #### C BC #### [facility] [address] [place] [address] Dr. Loyd Parks WBC 10.2 103/ul Normal 4.0-11.0 [facility] Comment on above: Performed By: #### C BC #### [facility] [address] [place] [address] Dr. Loyd Parks CULTURE BLOODon 07-27-2022 Microscopic examination of blood, culture Culture Observations: NO GROWTH AT 5 DAYS. Normal [facility] Comment on above: Performed By: #### E RUR #### [facility] [address] [place] [address] Dr. Loyd Parks Covid-19 PCR (CVDTBH)on SARS-CoV-2 (COVID-19) RNA SAUNDRA+probe Ql (Unsp spec) Not detected Normal NOT DETECTED [facility] Comment on above: Result Comment: This test is not yet approved or cleared by the [place] FDA. When there are no FDA-approved or cleared tests available, and other criteria are met, FDA can make tests available under an emergency access mechanism called an Emergency Use Authorization (EUA). The EUA for this test is supported by the Programmer Or Analyst of Health and Human Service's (HHS's) [...] SARS-CoV-2. Performed By: #### E RUR #### [facility] [address] [place] [address] Dr. Loyd Parks LACTATE/LACTIC ACIDon 2022 Lactate [Moles/Vol] 2.2 mmol/L Critically high 0.4-2.0 [facility] Comment on above: Performed By: #### C MP, BNP, CMADM #### [facility] [address] [place] [address] Dr. Loyd Parks PROF 14(COMP METB)on 023 Albumin [Mass/Vol] 3.3 g/dL Critically low 3.4-5.0 [facility] Comment on above: Performed By: #### C MP, BNP, CMADM #### [facility] [address] [place] [address] Dr. Loyd Parks Albumin/Globulin [Mass ratio] 0.9 {ratio} Normal [facility] Comment on above: Performed By: #### C MP, BNP, CMADM #### [facility] [address] [place] [address] Dr. Loyd Parks ALP [Catalytic activity/Vol] 91 U/L Normal 46-116 [facility] Comment on above: Performed By: #### C MP, BNP, CMADM #### [facility] [address] [place] [address] Dr. Loyd Parks ALT [Catalytic activity/Vol] 18 U/L Normal 16-63 [facility] Comment on above: Performed By: #### C MP, BNP, CMADM #### [facility] [address] [address] [address] Loyd Parks Anion gap [Moles/Vol] 12.2 mmol/L Normal [facility] Comment on above: Performed By: #### C MP, BNP, CMADM #### [facility] [address] [address] [address] Loyd Parks AST [Catalytic activity/Vol] 15 U/L Normal 15-37 [facility] Comment on above: Performed By: #### C MP, BNP, CMADM #### [facility] [address] [address] [address] Loyd Parks Bilirubin [Mass/Vol] 0.4 mg/dL Normal 0.2-1.0 [facility] Comment on above: Performed By: #### C MP, BNP, CMADM #### [facility] [address] [address] [address] Loyd Parks Calcium [Mass/Vol] 8.7 mg/dL Normal 8.5-10.1 [facility] Comment on above: Performed By: #### C MP, BNP, CMADM #### [facility] [address] [address] [address] Loyd Parks Chloride [Moles/Vol] 105 mmol/L Normal 98-107 [facility] Comment on above: Performed By: #### C MP, BNP, CMADM #### [facility] [address] [address] [address] Loyd Parks CO2 [Moles/Vol] 28.0 mmol/L Normal 21.0-32.0 [facility] Comment on above: Performed By: #### C MP, BNP, CMADM #### [facility] [address] [address] [address] Loyd Parks Creatinine [Mass/Vol] 2.25 mg/dL Critically high 0.70-1.30 [facility] Comment on above: Performed By: #### C MP, BNP, CMADM #### [facility] [address] [address] [address] Loyd Parks EGFR-AF TURKMEN 34 mL/min/1.73m2 Critically low >=60 [facility] Comment on above: Performed By: #### C MP, BNP, CMADM #### [facility] [address] [place] [address] Dr. Loyd Parks EGFR-NON AF TURKMEN 28 mL/min/1.73m2 Critically low >=60 [facility] Comment on above: Performed By: #### C MP, BNP, CMADM #### [facility] [address] [place] [address] Dr. Loyd Parks Globulin (S) [Mass/Vol] 3.8 g/dL Normal [facility] Comment on above: Performed By: #### C MP, BNP, CMADM #### [facility] [address] [place] [address] Dr. Loyd Parks Glucose [Mass/Vol] 88 mg/dL Normal 74-106 [facility] Comment on above: Performed By: #### C MP, BNP, CMADM #### [facility] [address] [place] [address] Dr. Loyd Parks Potassium [Moles/Vol] 4.2 mmol/L Normal 3.5-5.1 [facility] Comment on above: Performed By: #### C MP, BNP, CMADM #### [facility] [address] [place] [address] Dr. Loyd Parks Protein [Mass/Vol] 7.1 g/dL Normal 6.4-8.2 [facility] Comment on above: Performed By: #### C MP, BNP, CMADM #### [facility] [address] [place] [address] Dr. Loyd Parks Sodium [Moles/Vol] 141 mmol/L Normal 136-145 [facility] Comment on above: Performed By: #### C MP, BNP, CMADM #### [facility] [address] [place] [address] Dr. Loyd Parks Urea nitrogen [Mass/Vol] 36.0 mg/dL Critically high 7.0-18.0 [facility] Comment on above: Performed By: #### C MP, BNP, CMADM #### [facility] [address] [place] [address] Dr. Loyd Parks Urea nitrogen/Creatinin e [Mass ratio] 16.0 mg/mg Normal The [facility] Comment on above: Performed By: #### C MP, BNP, CMADM #### [facility] [address] [place] [address] Dr. Loyd Parks PROTIMEon 07-27-2022 INR Coag (PPP) [Relative time] 0.95 {INR} Normal [facility] Comment on above: Performed By: #### P T, PTT #### [facility] [address] [place] [address] Dr. Loyd Parks INR GUIDELINES SEE BELOW Normal [facility] Comment on above: Result Comment: MARIE RED INR: 2.0 - 3.0 CONDITIONS NOT LISTED BELOW 2.5 - 3.5 FOR PROSTHETIC HEART VALVE REPLACEMENT 2.5 - 3.5 RECURRENT THROMBOSIS Performed By: #### P T, PTT #### [facility] [address] [place] [address] Dr. Loyd Parks PT Coag (PPP) [Time] 10.1 s Normal 9.0-11.6 [facility] Comment on above: Performed By: #### P T, PTT #### [facility] [address] [place] [address] Dr. Loyd Parks PTTon 07-27-2022 aPTT Coag (Bld) [Time] 27.3 s Normal 22.3-36.2 [facility] Comment on above: Performed By: #### P T, PTT #### [facility] [address] [place] [address] Dr. Loyd Parks SYMPTOMATIC COVID-19 ANTIGEN on 07-27-2022 EUA Statement SEE BELOW Normal [facility] Comment on above: Result Comment: This test [...] sooner. Performed By: #### C VDAGS #### [facility] [address] [place] [address] Dr. Loyd Parks SARS-CoV-2 (COVID-19) RNA SAUNDRA+probe Ql (Unsp spec) Negative Normal NEGATIVE [facility] Comment on above: Performed By: #### C VDAGS #### [facility] [address] [place] [address] Dr. Loyd Parks XR CHEST 2 Von [...] ELIUD KAUR Date: 2022-07-26 22:19 Normal The [facility] POINT OF CARE GLUCOSEon - Glucose [Mass/Vol] 102 mg/dL Normal 74-106 [facility] Comment on above: Performed By: #### C MP, BNP, CMADM #### [facility] [address] [place] [address] Dr. Loyd Parks ER URINE PROFILEon 2 Bilirubin Ql (U) Negative Normal NEGATIVE [facility] Comment on above: Performed By: #### E RUR #### [facility] [address] [place] [address] Dr. Loyd Parks Clarity (U) CLEAR Normal CLEAR The [facility] Comment on above: Performed By: #### E RUR #### [facility] [address] [place] [address] Dr. Loyd Parks Color (U) LT. YELLOW Normal YELLOW [facility] Comment on above: Performed By: #### E RUR #### [facility] [address] [place] [address] Dr. Loyd CONWAY A micrscopic examination will be performed if indicated. Normal The [facility] Comment on above: Performed By: #### E RUR #### [facility] [address] [place] [address] Dr. Loyd Parks Glucose Ql (U) 100 mg/dl Abnormal NEGATIVE [facility] Comment on above: Performed By: #### E RUR #### [facility] [address] [place] [address] Dr. Loyd Parks Hemoglobin Ql (U) Negative Normal NEGATIVE [facility] Comment on above: Performed By: #### E RUR #### [facility] [address] [place] [address] Dr. Loyd Parks Ketones Ql (U) Negative Normal NEGATIVE [facility] Comment on above: Performed By: #### E RUR #### [facility] [address] [place] [address] Dr. Loyd Parks LEUKOCYTES Negative Normal NEGATIVE [facility] Comment on above: Performed By: #### E RUR #### [facility] [address] [place] [address] Dr. Loyd Parks Nitrite Ql (U) Negative Normal NEGATIVE [facility] Comment on above: Performed By: #### E RUR #### [facility] [address] [place] [address] Dr. Loyd Parks pH (U) 5.5 [pH] Normal 5-9 [facility] Comment on above: Performed By: #### E RUR #### [facility] [address] [place] [address] Dr. Loyd Parks SPEC GRAVITY 1.015 Normal 1.005-<=1.025 [facility] Comment on above: Performed By: #### E RUR #### [facility] [address] [place] [address] Dr. Loyd Parks UA PROTEIN Negative Normal NEGATIVE/ TRACE The [facility] Comment on above: Performed By: #### E RUR #### [facility] [address] [place] [address] Dr. Loyd Parks UR MICRO IND NOT INDICATED Normal [facility] Comment on above: Performed By: #### E RUR #### [facility] [address] [place] [address] Dr. Loyd Parks Urobilinogen Qn (U) 0.2 {Malcolm'U}/dL Normal 0.2 - 1.0 [facility] Comment on above: Performed By: #### E RUR #### [facility] [address] [place] [address] Dr. Loyd Parks GROUP A STREP CULTUREon 02-21 S. pyogenes Ag Ql (Unsp spec) Culture Observations: NEGATIVE FOR GROUP A STREPTOCOCCUS. Normal The [facility] Comment on above: Performed By: #### S SCRN, GRASTCX #### [facility] [address] [place] [address] Dr. Loyd Parks STREPT SCREENon 03-03-2022 STREP SCREEN A Negative Normal NEGATIVE [facility] Comment on above: Performed By: #### S SCRN, GRASTCX #### [facility] [address] [place] [address] Dr. Loyd Parks [facility]on SARS-CoV-2 (COVID-19) RNA SAUNDRA+probe Ql (Unsp spec) Not detected Normal NOT DETECTED The [facility] Comment on above: Result Comment: This test is not yet approved or cleared by the [place] FDA. When there are no FDA-approved or cleared tests available, and other criteria are met, FDA can make tests available under an emergency access mechanism called an Emergency Use Authorization (EUA). The EUA for this test is supported by the [place] of Health and Human Service's (HHS's) declaration [...] By: #### C MP, BNP, CMADM #### [facility] [address] [place], [place] [address] Dr. Loyd Parks POINT OF CARE GLUCOSEon 12-22 Glucose [Mass/Vol] 133 mg/dL Critically high 74-106 [facility] Comment on above: Performed By: #### E RUR #### [facility] [address] [id number] [address] Loyd Parks POINT OF CARE GLUCOSEon Glucose [Mass/Vol] 75 mg/dL Normal 74-106 [facility] Comment on above: Performed By: #### E RUR #### [facility] [address] [address] [address] ABD/PELVIS WO CONon [...] SAURABH SINGH Date: 2021-09-03 08:35 Normal The [facility] ER URINE PROFILEon 2 Bilirubin Ql (U) Negative Normal NEGATIVE [facility] Comment on above: Performed By: #### E RUR #### [facility] [address] [address] [address] Loyd Parks Clarity (U) CLEAR Normal CLEAR The [facility] Comment on above: Performed By: #### E RUR #### [facility] [address] [address] [address] Loyd Parks Color (U) LT. YELLOW Normal YELLOW The [facility] Comment on above: Performed By: #### E RUR #### [facility] [address] [address] [address] Loyd Parks ERUAHD A micrscopic examination will be performed if indicated. Normal The [facility] Comment on above: Performed By: #### E RUR #### [facility] [address] [place] [address] Dr. Loyd Parks Glucose Ql (U) >1000 Abnormal NEGATIVE [facility] Comment on above: Performed By: #### E RUR #### [facility] [address] [place] [address] Dr. Loyd Parks Hemoglobin Ql (U) Negative Normal NEGATIVE The [facility] Comment on above: Performed By: #### E RUR #### [facility] [address] [place] [address] Dr. Loyd Parks Ketones Ql (U) Negative Normal NEGATIVE [facility] Comment on above: Performed By: #### E RUR #### [facility] [address] [place] [address] Dr. Loyd Parks LEUKOCYTES Negative Normal NEGATIVE [facility] Comment on above: Performed By: #### E RUR #### [facility] [address] [place] [address] Dr. Loyd Parks Nitrite Ql (U) Negative Normal NEGATIVE [facility] Comment on above: Performed By: #### E RUR #### [facility] [address] [place] [address] Dr. Loyd Parks pH (U) 6.0 [pH] Normal 5-9 [facility] Comment on above: Performed By: #### E RUR #### [facility] [address] [place] [address] Dr. Loyd Parks SPEC GRAVITY 1.010 Normal 1.005-<=1.025 [facility] Comment on above: Performed By: #### E RUR #### [facility] [address] [place] [address] Dr. Loyd Parks UA PROTEIN Negative Normal NEGATIVE/ TRACE The [facility] Comment on above: Performed By: #### E RUR #### [facility] [address] [place] [address] Dr. Loyd Parks UR MICRO IND NOT INDICATED Normal [facility] Comment on above: Performed By: #### E RUR #### [facility] [address] [place] [address] Dr. Loyd Parks Urobilinogen Qn (U) 0.2 {Malcolm'U}/dL Normal 0.2 - 1.0 [facility] Comment on above: Performed By: #### E RUR #### [facility] [address] [address] [address] Lody Parks ALCOHOLon 07-31-2020 Ethanol [Mass/Vol] mg/dL Normal [facility] Comment on above: Result Comment: FOR MEDICAL USE ONLY. . REF VALUES <10 Performed By: #### A LC ####[facility] [place] [address] CBC AND DIFFERENTIALon 07-31 % AUTOMATED IMMATURE GRAN 0.4 % Normal 0.0 - 0.9 [facility] Comment on above: Result Comment: Rylie ture Granulocyte Count (IG) includes promyelocytes, myelocytes and metamyelocytes but does not include bands. Percent differential counts (%) should be interpreted in the context of the absolute cell counts (cells/L). Performed By: #### C BCDF #### [facility] [address] [place] [address] Basophils (Bld) [#/Vol] 0.05 10*3/uL Normal 0.00 - 0.10 [facility] Comment on above: Performed By: #### C BCDF #### [facility] [address] [place] [address] Basophils/100 WBC (Bld) 0.6 % Normal 0.0 - 2.0 [facility] Comment on above: Performed By: #### C BCDF #### [facility] [address] [place] [address] Eosinophils (Bld) [#/Vol] 0.21 10*3/uL Normal 0.00 - 0.40 [facility] Comment on above: Performed By: #### C BCDF #### [facility] [address] [place] [address] Eosinophils/100 WBC (Bld) 2.4 % Normal 0.0 - 6.0 [facility] Comment on above: Performed By: #### C BCDF #### [facility] [address] [facility] [place] [address] Erythrocyte distribution width (RBC) [Ratio] 13.2 % Normal 11.5 - 14.5 [facility] Comment on above: Performed By: #### C BCDF #### [facility] [address] [facility] [place] [address] Hematocrit (Bld) [Volume fraction] 50.0 % Normal 41.0 - 52.0 [facility] Comment on above: Performed By: #### C BCDF #### [facility] [address] [place] [address] Hemoglobin (Bld) [Mass/Vol] 17.3 g/dL Normal 13.5 - 17.5 [facility] Comment on above: Performed By: #### C BCDF #### [facility] [address] [place] [address] Lymphocytes (Bld) [#/Vol] 1.59 10*3/uL Normal 0.80 - 3.00 [facility] Comment on above: Performed By: #### C BCDF #### [facility] [address] [place] [address] Lymphocytes/100 WBC (Bld) 17.9 % Normal 13.0 - 44.0 [facility] Comment on above: Performed By: #### C BCDF #### [facility] [address] [place] [address] MCHC (RBC) [Mass/Vol] 34.6 g/dL Normal 32.0 - 36.0 [facility] Comment on above: Performed By: #### C BCDF #### [facility] [address] [place] [address] MCV (RBC) [Entitic vol] 89 fL Normal 80 - 100 [facility] Comment on above: Performed By: #### C BCDF #### [facility] [address] [place] [address] Monocytes (Bld) [#/Vol] 0.82 10*3/uL High 0.05 - 0.80 [facility] Comment on above: Performed By: #### C BCDF #### [facility] [address] [place] [address] Monocytes/100 WBC (Bld) 9.2 % Normal 2.0 - 10.0 [facility] Comment on above: Performed By: #### C BCDF #### [facility] [address] [place] [address] Neutrophils (Bld) [#/Vol] 6.18 10*3/uL High 1.60 - 5.50 [facility] Comment on above: Performed By: #### C BCDF #### [facility] [address] [place] [address] Neutrophils/100 WBC (Bld) 69.5 % Normal 40.0 - 80.0 [facility] Comment on above: Performed By: #### C BCDF #### [facility] [address] [place] [address] Platelets (Bld) [#/Vol] 215 10*3/uL Normal 150 - 450 [facility] Comment on above: Performed By: #### C BCDF #### [facility] [address] [place] [address] RBC 5.59 x10E12/L Normal 4.50 - 5.90 [facility] Comment on above: Performed By: #### C BCDF #### [facility] [address] [place] [address] WBC (Bld) [#/Vol] 8.9 10*3/uL Normal 4.4 - 11.3 [facility] Comment on above: Performed By: #### C BCDF #### [facility] [address] [place] [address] CHEST 1 VIEWon 07-31-2020 CHEST 1 VIEW STUDY: Chest Radiograph; 07/30/2020 10:53 PM INDICATION: Shortness of breath. COMPARISON: None available. ACCESSION NUMBER(S): [id number] ORDERING CLINICIAN: ZAID CUELLAR DO TECHNIQUE: Frontal chest was obtained at 2355 hours. FINDINGS: CARDIOMEDIASTINAL SILHOUETTE: Cardiomediastinal silhouette is normal in size and configuration. LUNGS: Lungs are clear. ABDOMEN: No remarkable upper abdominal findings. BONES: No acute osseous changes. IMPRESSION: No acute pulmonary abnormality. Signed by Rodrick Anna MD Electronically signed by: RODRICK ANNA MD Normal [facility] COMPREHENSIVE PANELon 2020 Albumin [Mass/Vol] 3.7 g/dL Normal 3.4 - 5.0 [facility] Comment on above: Performed By: #### C MP ####[facility] [place] [address] ALP [Catalytic activity/Vol] 80 U/L Normal 33 - 136 [facility] Comment on above: Performed By: #### C MP ####[facility] [place] [address] ALT [Catalytic activity/Vol] 12 U/L Normal 10 - 52 [facility] Comment on above: Result Comment: Jade ents treated with Sulfasalazine may generate falsely decreased results for ALT. Performed By: #### C MP ####[facility] [place] [address] Anion gap [Moles/Vol] 13 mmol/L Normal 10 - 20 [facility] Comment on above: Performed By: #### C MP ####[facility] [place] [address] AST [Catalytic activity/Vol] 12 U/L Normal 9 - 39 [facility] Comment on above: Performed By: #### C MP ####[facility] [place] [address] Bilirubin [Mass/Vol] 0.7 mg/dL Normal 0.0 - 1.2 [facility] Comment on above: Performed By: #### C MP ####[facility] [place] [address] Calcium [Mass/Vol] 9.2 mg/dL Normal 8.6 - 10.3 [facility] Comment on above: Performed By: #### C MP ####[facility] [place] [address] Chloride [Moles/Vol] 101 mmol/L Normal 98 - 107 [facility] Comment on above: Performed By: #### C MP ####[facility] [place] [address] Creatinine [Mass/Vol] 1.36 mg/dL High 0.50 - 1.30 [facility] Comment on above: Performed By: #### C MP ####[facility] [place] [address] GFR- AM. 61 mL/min/1.73m2 Normal >60 [facility] Comment on above: Result Comment: CALC ULATIONS OF ESTIMATED GFR ARE PERFORMED USING THE MDRD STUDY EQUATION FOR THE IDMS-TRACEABLE CREATININE METHODS. CLIN CHEM 2007;53:766-72 Performed By: #### C MP ####[facility] [place] [address] GFR-NON AM. 50 mL/min/1.73m2 Abnormal >60 [facility] Comment on above: Performed By: #### C MP ####[facility] [place] [address] Glucose [Mass/Vol] 390 mg/dL High 74 - 99 [facility] Comment on above: Performed By: #### C MP ####[facility] [place] [address] HCO3 (Bld) [Moles/Vol] 27 mmol/L Normal 21 - 32 [facility] Comment on above: Performed By: #### C MP ####[facility] [place] [address] Potassium [Moles/Vol] 4.1 mmol/L Normal 3.5 - 5.3 [facility] Comment on above: Performed By: #### C MP ####[facility] [place] [address] Protein [Mass/Vol] 6.8 g/dL Normal 6.4 - 8.2 [facility] Comment on above: Performed By: #### C MP ####[facility] [place] [address] Sodium [Moles/Vol] 137 mmol/L Normal 136 - 145 [facility] Comment on above: Performed By: #### C MP ####[facility] [place] [address] Urea nitrogen [Mass/Vol] 27 mg/dL High 6 - 23 [facility] Comment on above: Performed By: #### C MP ####[facility] [place] [address] CT HEAD WO CONTRASTon 2020 CT HEAD WO CONTRAST STUDY: CT Head without IV Contrast; 07/30/2020, 11:52 PM. INDICATION: Confusion, disorientation. COMPARISON: None Available. ACCESSION NUMBER(S): [id number] ORDERING CLINICIAN: ZAID CUELLAR DO TECHNIQUE: Noncontrast [...] signed by: RODRICK ANNA MD Normal [facility] MAGNESIUMon 07-31-2020 Magnesium [Mass/Vol] 2.04 mg/dL Normal 1.60 - 2.40 [facility] Comment on above: Performed By: #### M G #### [facility] [address] [place] [address] PT/INRon 07-31-2020 PT Coag (PPP) [Time] 12.0 s Normal 10.1 - 13.3 [facility] Comment on above: Performed By: #### P TINR #### [facility] [address] [place] [address] PT, INR 1.0 Normal 0.9 - 1.1 [facility] Comment on above: Performed By: #### P PHILR #### [facility] [address] [place] [address] Provider Note - ED v2on 07-22 Provider Note - ED v2 Provider Note - ED v2: Chart Review: ED NOTES ED NOTES: History: This is an 80-year-old male presenting from the [facility] by [facility] for chief complaint of a medical evaluation. Patient left his home in [place] 3 days ago because he got into an argument with his and he has not been back since. He was finally located at a [facility] down the street when family called. [...] Triage - ED 30-Jul-2020 23:17 Normal [facility] Risk Screen - Adult Emergenc yon [...] instruction; written material Cultural Considerationsnone Developmental Considerationsnone Lutheran Considerationsnone Learning Assessment (Other Learner): Learning Assessment (Other Learner): Other learner availableno Pressure Injury/TB/Substance: Pressure Injury: Do you have a coughno Substance Use Current or Former Historynever: Cigarette/Tobacco, e-Cigarette/Vaping, Alcohol, Street Drugs Admission Risk Screen: Significant IndicatorsComplete CAGE: CAGE: Is this an injured patient at a Trauma Center ([facility]/[place]/[facility]/[place]): no Electronic Signatures: Elizabeth Ivan (RN) (Signed 30-Jul-2020 23:24) Authored: Preferred Language, Advanced Directives, Family Violence Adult, Learning Assessment (Patient), Learning Assessment (Other Learner), Pressure Injury/TB/Substance, Pressure Injury, CAGE Last Updated: 30-Jul-2020 23:24 by Elizabeth Ivan (RN) Normal [facility] TROPONIN Ion 07-31-2020 Troponin I.cardiac [Mass/Vol] ng/mL Normal 0.00 - 0.03 [facility] Comment on above: Result Comment: LESS [...] is performed using different testing methodology at [facility] than at other [facility] hospitals. Direct result comparisons should only be made within the same method. Performed By: #### T ROP2 #### [facility] [address] [place] [address] Triage - EDon 07-31-2020 Triage - ED [...] Arrival: stretcher Mode of Arrival: ambulance Agency: [facility] Agency Name: Monica Accompanied By: ornament maker hand Language: Spoken Language Preferred: Nepalese Reading Language Preferred: Nepalese CHIEF COMPLAINT NAT MOORE is a Male patient with a chief complaint of altered mental status. Triage Date/Time: 30-Jul-2020 22:50 LAILA: 3 Pain Rating (0-10): 0 = None Vital Signs: Temperature: 96.8F ( 36.0C) taken temporal Blood Pressure: 166/103 Mean: Heart Rate: 94 Respiratory Rate: 18 Pulse Oximetry: 97% on room air, no respiratory support. Weight: 230.3 pounds. Calculated 104.5 kg. (stated) [place] Coma Scale: Best Eye Response: (E4) spontaneous [...] 30-Jul-2020 23:23 by Elizabeth Ivan (RN) Normal [facility] UA MICROSCOPICon 07-31-2020 RBC 1 /HPF Normal 0-5 [facility] Comment on above: Performed By: #### U AMIC #### [facility] [address] [place] [address] SQUAMOUS EPITH. CELLS <1 Normal [facility] Comment on above: Performed By: #### U AMIC #### [facility] [address] [place] [address] WBC 22 /HPF Abnormal 0-5 [facility] Comment on above: Performed By: #### U AMIC #### [facility] [address] [place] [address] URINALYSISon 07-31-2020 Appearance (U) CLEAR Normal CLEAR [facility] Comment on above: Performed By: #### U A #### [facility] [address] [place] [address] Bilirubin Ql (U) Negative Normal NEGATIVE [facility] Comment on above: Performed By: #### U A #### [facility] [address] [place] [address] Color (U) STRAW Normal STRAW,YELLOW [facility] Comment on above: Performed By: #### U A #### [facility] [address] [facility] [place] [address] Glucose Ql (U) >=500(3+) Abnormal NEGATIVE [facility] Comment on above: Performed By: #### U A #### [facility] [address] [place] [address] Hemoglobin Ql (U) SMALL(1+) Abnormal NEGATIVE [facility] Comment on above: Performed By: #### U A #### [facility] [id number] [place] [address] Ketones Ql (U) Negative Normal NEGATIVE [facility] Comment on above: Performed By: #### U A #### [facility] [id number] [place] [address] Leukocyte esterase Test strip Ql (U) TRACE Abnormal NEGATIVE [facility] Comment on above: Performed By: #### U A #### [facility] [id number] [place] [address] Nitrite Ql (U) Negative Normal NEGATIVE [facility] Comment on above: Performed By: #### U A #### [facility] [id number] [place] [address] pH (U) 6.0 [pH] Normal 5.0 - 8.0 [facility] Comment on above: Performed By: #### U A #### [facility] [id number] [place] [address] Protein Ql (U) 100(2+) Abnormal NEGATIVE [facility] Comment on above: Performed By: #### U A #### [facility] [address] [place] [address] Specific gravity (U) [Rel density] 1.025 Normal 1.005 - 1.035 [facility] Comment on above: Performed By: #### U A #### [facility] [address] [place] [address] Urobilinogen (U) [Mass/Vol] mg/dL Normal 0.0 - 1.9 [facility] Comment on above: Performed By: #### U A #### [facility] [address] [place] [address] Vital Signs Date Time Vital Sign Value Performing Clinician Facility 01-29-2024 13:02-0500 Body height 172.7 cm Perla Aguila [employer] Work Phone: [facility] 01-29-2024 13:02-0500 Body mass index (BMI) [Ratio] 37.71 kg/m2 Perla Aguila [employer] Work Phone: [facility] 01-29-2024 13:02-0500 Body temperature 97.81 [degF] Perla Aguila [employer] Work Phone: [facility] 01-29-2024 13:02-0500 Body weight 112.49 kg Perla Aguila [employer] Work Phone: [facility] 01-29-2024 13:02-0500 Diastolic blood pressure 70 mm[Hg] Perla Aguila [employer] Work Phone: [facility] 01-29-2024 13:02-0500 Heart rate 74 /min Perla Aguila [employer] Work Phone: [facility] 01-29-2024 13:02-0500 SaO2% (BldA) [Mass fraction] 95 % Perla Aguila [employer] Work Phone: [facility] 01-29-2024 13:02-0500 Systolic blood pressure 128 mm[Hg] Perla Aguila [employer] Work Phone: [facility] 01-08-2024 14:17-0400 Body height 172.7 cm Darcy Sandoval [employer] Work Phone: [facility] 01-08-2024 14:17-0400 Body mass index (BMI) [Ratio] 37.56 kg/m2 Darcy Sandoval [employer] Work Phone: [facility] 01-08-2024 14:17-0400 Body weight 112.04 kg aDrcy Sandoval [employer] Work Phone: [facility] 01-08-2024 14:17-0400 Diastolic blood pressure 84 mm[Hg] Darcy Sandoval [employer] Work Phone: [facility] 01-08-2024 14:17-0400 Heart rate 92 /min Darcy Sandoval [employer] Work Phone: [facility] 01-08-2024 14:17-0400 SaO2% (BldA) [Mass fraction] 98 % Darcylenny Sandoval [employer] Work Phone: [facility] 01-08-2024 14:17-0400 Systolic blood pressure 124 mm[Hg] Darcy Lori [employer] Work Phone: [facility] 12-25-2023 14:28-0400 Body height 172.7 cm Darcy Lori [employer] Work Phone: [facility] 12-25-2023 14:28-0400 Body mass index (BMI) [Ratio] 38.32 kg/m2 Darcy Lori [employer] Work Phone: [facility] 12-25-2023 14:28-0400 Body weight 114.31 kg Darcy Lori [employer] Work Phone: [facility] 12-25-2023 14:28-0400 Diastolic blood pressure 68 mm[Hg] Darcy Lori [employer] Work Phone: [facility] 12-25-2023 14:28-0400 Heart rate 88 /min Darcy Lori [employer] Work Phone: [facility] 12-25-2023 14:28-0400 SaO2% (BldA) [Mass fraction] 97 % Darcy Lori [employer] Work Phone: [facility] 12-25-2023 14:28-0400 Systolic blood pressure 128 mm[Hg] Darcy Lori [employer] Work Phone: [facility] 09-16-2022 14:48-0400 Blood Pressure Location Umer VALENCIA [facility] 09-16-2022 14:48-0400 Diastolic blood pressure 74 mm[Hg] Umer VALENCIA [facility] 09-16-2022 14:48-0400 Heart rate 70 /min Umer VALENCIA [facility] 09-16-2022 14:48-0400 Respiratory rate 16 /min Umer VALENCIA [facility] 09-16-2022 14:48-0400 Systolic blood pressure 130 mm[Hg] Umer VALENCIA [facility] 04-26-2022 11:04-0500 Blood Pressure Location Umer VALENCIA [facility] 04-26-2022 11:04-0500 Diastolic blood pressure 78 mm[Hg] Umer VALENCIA [facility] 04-26-2022 11:04-0500 Heart rate 62 /min Umer VALENCIA [facility] 04-26-2022 11:04-0500 Respiratory rate 16 /min Umer VALENCIA [facility] 04-26-2022 11:04-0500 Systolic blood pressure 134 mm[Hg] Umer VALENCIA [facility] 12-03-2021 13:08-0400 Blood Pressure Location Umer VALENCIA [facility] 12-03-2021 13:08-0400 Diastolic blood pressure 70 mm[Hg] Umer VALENCIA [facility] 12-03-2021 13:08-0400 Heart rate 65 /min Umer VALENCIA [facility] 12-03-2021 13:08-0400 Respiratory rate 16 /min Umer VALENCIA [facility] 12-03-2021 13:08-0400 Systolic blood pressure 109 mm[Hg] Umer VALENCIA [facility] 09-03-2021 13:39-0400 Blood Pressure Location Umer VALENCIA [facility] 09-03-2021 13:39-0400 Diastolic blood pressure 67 mm[Hg] Umer VALENCIA [facility] 09-03-2021 13:39-0400 Heart rate 68 /min Umertatum VALENCIA [facility] 09-03-2021 13:39-0400 Respiratory rate 16 /min Umer VALENCIA [facility] 09-03-2021 13:39-0400 Systolic blood pressure 102 mm[Hg] Umer VALENCIA [facility] eTobb Encounters Encounter Date Encounter Type Care Provider Facility Start: 02-10-2024 End: 02-10-2024 ambulatory Marianela X Orbrittney Facility:[facility] Start: 02-10-2024 End: 02-10-2024 Patient encounter procedure Marianela X Nataly [facility] Start: 02-01-2024 End: 02-03-2024 Clinisync Result Encounter Generic External Data Provider [facility] Unsolicited Start: 02-01-2024 End: 02-03-2024 Clinisync Result Encounter Generic External Data Provider [facility] External [facility] Unsolicited Start: 01-29-2024 End: 01-29-2024 Bamboo flowsheet Perla Misty Ayla [employer] Work Phone: [facility] Start: 01-29-2024 End: 01-29-2024 Bamboo flowsheet Perla Misty Ayla [employer] Work Phone: [facility] Start: 01-29-2024 End: 01-29-2024 ambulatory PERLA Misty AYLA Not Available Start: 01-29-2024 End: 01-29-2024 Office outpatient visit 25 minutes Perla Misty Ayla [employer] Work Phone: [facility] Comment on [...] 01-08-2024 End: 01-08-2024 Bamboo flowsheet Darcy Sandoval [employer] Work Phone: [facility] Start: 01-08-2024 End: 01-08-2024 Bamboo flowsheet Darcy Sandoval [employer] Work Phone: [facility] Start: 01-08-2024 End: 01-08-2024 Office outpatient visit 25 minutes Darcy Sandoval [employer] Work Phone: [facility] Comment on above: Edema, unspecified t ype (Primary Dx); Altered mental status, unspecified altered mental status type Start: 12-25-2023 End: 12-25-2023 Office outpatient visit 25 minutes Darcy Sandoval [employer] Work Phone: [facility] Comment on above: Localized edema (Leslee jazmine Dx); Acute cough Start: 12-25-2023 End: 12-25-2023 ambulatory DARCY M LORI Not Available Start: 12-25-2023 End: 12-25-2023 Bamboo flowsheet Darcy Sandoval [employer] Work Phone: [facility] Start: 12-25-2023 End: 12-25-2023 Bamboo flowsheet Darcy Sandoval [employer] Work Phone: [facility] Start: 12-05-2023 End: 12-05-2023 ambulatory DARCY SANDOVAL [facility] Start: 11-30-2023 End: 11-30-2023 ambulatory RENE ANTHONY [facility] Start: 11-28-2023 End: 11-28-2023 Emergency department [facility] Start: 11-21-2023 Evaluation and manag ement of inpatient [facility] Start: 11-18-2023 Evaluation and manag ement of inpatient [facility] Start: 11-17-2023 Evaluation and manag ement of inpatient [facility] Start: 11-15-2023 Evaluation and manag ement of inpatient [facility] Start: 11-15-2023 Evaluation and manag ement of inpatient [facility] Start: 11-15-2023 Evaluation and manag ement of inpatient [facility] Start: 11-15-2023 Evaluation and manag ement of inpatient [facility] Start: 11-15-2023 End: 11-15-2023 ambulatory UNKNOWN PROVIDER Facility:[facility] Start: 11-15-2023 End: 11-22-2023 Evaluation and management of inpatient [facility] Start: 11-13-2023 End: 11-13-2023 ambulatory DARCY SANDOVAL Not Available Start: 11-11-2023 End: 11-11-2023 ambulatory Marianela Ingram Facility:[facility] Start: 11-11-2023 End: 11-11-2023 Patient encounter procedure Marianela X Orbrittney [facility] Start: 10-23-2023 End: 10-23-2023 ambulatory DARCY SANDOVAL Not Available Start: 10-14-2023 End: 10-14-2023 ambulatory Marianela X Orzech Facility:[facility] Start: 10-14-2023 End: 10-14-2023 Patient encounter procedure Marianela X Orzech [facility] Start: 10-09-2023 End: 10-09-2023 ambulatory TOMMY GABRIEL Not Available Start: 08-01-2023 End: 08-01-2023 ambulatory JUAN PABLO ALANIZ Not Available Start: 06-19-2023 End: 06-19-2023 ambulatory JUAN PABLO ALANIZ Not Available Start: 05-13-2023 End: 05-13-2023 ambulatory CAIT DUNHAM Facility:[facility] Start: 05-13-2023 End: 05-13-2023 Patient encounter procedure CAIT DUNHAM [facility] Start: 04-23-2023 End: 04-23-2023 ambulatory JUAN PABLO ALANIZ Not Available Start: 03-26-2023 End: 03-26-2023 ambulatory JUAN PABLO ALANIZ Not Available Start: 02-27-2023 End: 02-27-2023 ambulatory DARCY SANDOVAL Not Available Start: 09-16-2022 End: 09-16-2022 Patient encounter procedure Umer VALENCIA [facility] Start: 07-26-2022 End: 07-27-[address] JUAN PABLO ALANIZ Facility:[facility] Start: 06-26-2022 End: 06-27-[address] JUAN PABLO ALANIZ Facility:[facility] Start: 05-23-2022 End: 05-24-[address] JUAN PABLO ALANIZ Facility:[facility] Start: 04-26-2022 End: 04-26-2022 Patient encounter procedure Umer VALENCIA [facility] Start: 04-22-2022 End: 04-23-[address] JUAN PABLO ALANIZ Facility:[facility] Start: 04-16-2022 End: 04-16-[address] JUAN PABLO ALANIZ Facility:[facility] Start: 04-08-2022 End: 04-08-2022 Patient encounter procedure Umer VALENCIA [facility] Start: 04-04-2022 ambulatory SHELLIE ROJAS . Facility:[facility] Start: 03-08-2022 End: 03-08-[address] JUAN PABLO ALANIZ Facility:[facility] Start: 03-04-2022 Encounter for preprocedural cardiovascular examination DR VINH HOLCOMB . [facility] Start: 03-04-2022 Encounter for preprocedural laboratory examination DR VINH HOLCOMB . [facility] Start: 03-03-2022 End: 03-03-[address] JUAN PABLO ALANIZ Facility:[facility] Start: 03-02-2022 Encounter for preprocedural cardiovascular examination DR VINH HOLCOMB . [facility] Start: 02-26-[address] VINH HOLCOMB . [...] procedure Umer VALENCIA [facility] Start: 11-29-2021 End: 11-30-2021 ambulatory MANDIE Goodman [facility] Facility:[facility] Start: 11-27-2021 End: 11-27-[address] [...] Patient encounter procedure Umer VALENCIA [facility] Start: 09-03-2021 End: 09-03-[address] [...] [facility] [address] [place] [id number] Tommy Gabriel, DPAminah [address] [facility] [address] [place] [address] [facility] Start: 02-17-2024 Hemoglobin A1c measurement Diabetes: Hemoglobin A1C [facility] Start: 01-29-2024 End: 01-28-2025 Basic metabolic 1998 panel - Serum or Plasma Basic metabolic panel Lab Routine Localized edema Acute cough Expected: 01/29/2024 (Approximate), Expires: 01/28/2025 [facility] Work Phone: Comment on above: Expected: 01/29/2024 (Approximate), Expires: 01/28/2025 Start: 01-29-2024 End: 01-28-2025 Natriuretic peptide B [Mass/volume] in Blood B-type natriuretic peptide Lab Routine Localized edema Acute cough Expected: 01/29/2024 (Approximate), Expires: 01/28/2025 [facility] Comment on above: Expected: 01/29/2024 (Approximate), Expires: 01/28/2025 Start: 01-29-2024 End: 01-29-2024 Patient encounter procedure [facility] Start: 01-08-2024 End: 01-07-2025 Basic metabolic 1998 panel - Serum or Plasma Basic metabolic panel Lab Routine Edema, unspecified type Expected: 01/08/2024 (Approximate), Expires: 01/07/2025 [facility] Work Phone: Comment on above: Expected: 01/08/2024 (Approximate), Expires: 01/07/2025 Start: 01-08-2024 End: 01-07-2025 CBC panel - Blood by Automated count CBC Lab Routine Altered mental status, unspecified altered mental status type Expected: 01/08/2024 (Approximate), Expires: 01/07/2025 [facility] Comment on above: Expected: 01/08/2024 (Approximate), Expires: 01/07/2025 Start: 01-08-2024 End: 01-08-2024 Patient encounter procedure 01/08/2024 1:00 PM EDT Office Visit [facility] [address] [place] [address] Darcy Sandoval NP [address] [place] [address] [facility] Start: 12-25-2023 End: 12-25-2023 Patient encounter procedure 12/25/2023 2:30 PM EDT Office Visit [facility] [address] [place] [address] Darcy Sandoval NP [address] [place] [address] Arrived [facility] Comment on above: Arrived Start: 11-23-2023 Influenza vaccination Influenza Vacc ine (#1) [facility] Start: 08-22-2022 ambulatory Ambulatory Facility: 1 Start: [...] Immunization Date Immunization Notes Care Provider Fa [facility] 01-13-2023 influenza virus vacc ine, unspecified formulation Marianela Ingram [facility] 01-13-2023 Influenza, High-dose Seasonal, Quadrivalent, Preservative Free Darcy Sandoval NP Work Phone: [facility] 02-22-2022 influenza virus vacc ine, unspecified formulation Umer VALENCIA [facility] 02-22-2022 influenza, high dose seasonal, preservative-free Darcy Sandoval [employer] Work Phone: [facility] 12-21-2020 SARS-CoV-2 (COVID-19 ) mRNA BNT-162b2 iax Umer VALENCIA [facility] 11-30-2020 SARS-CoV-2 (COVID-19 ) mRNA BNT-162l4 vax Umer VALENCIA [facility] 01-24-2020 influenza virus vacc ine, unspecified formulation Umer VALENCIA [facility] 01-24-2020 influenza, high dose seasonal, preservative-free Darcy Nemaha [employer] Work Phone: [facility] 03-04-2019 influenza virus vacc ine, unspecified formulation Umer VALENCIA [facility] 03-04-2019 influenza, high dose seasonal, preservative-free Darcy Nemaha [employer] Work Phone: [facility] 08-05-2018 pneumococcal polysaccharide vaccine, 23 valent Umer VALENCIA [facility] 12-18-2016 influenza virus vacc ine, unspecified formulation Umer VALENCIA [facility] 12-18-2016 influenza, high dose seasonal, preservative-free Darcy Nemaha [employer] Work Phone: [facility] 12-06-2015 influenza virus vacc ine, unspecified formulation Umer VALENCIA [facility] 12-06-2015 influenza, high dose seasonal, preservative-free Darcy Lori [employer] Work Phone: [facility] 12-21-2014 influenza virus vacc ine, unspecified formulation Umer VALENCIA [facility] 12-21-2014 influenza, high dose seasonal, preservative-free Darcy Lori [employer] Work Phone: [facility] Payers Date Payer Category Payer Medicare ANTH MEDICARE ADVANTAGE ANTH MEDICARE ADVANTAGE [id number] 2021-Present [address] [place] [address] [id number] 2021 Medicare (Managed Care) [facility] [id number] 1959 Unknown [id number] 1959 Unknown [id number] 1938 Unknown [id number] 2.840.1.926857.3.579.2 .593 1938 Unknown [id number] 2.840.1.696095.3.579.2 .593 1938 Unknown [id number] 2.16840.1.602317.3.579.2 .593 1938 Unknown [id number] 2.16.840.1.585751.3.579.2 .593 1938 Unknown [id number] 2.16.840.1.821209.3.579.2 .593 1938 Unknown [id number] 2.16.840.1.573039.3.579.2 .593 1938 Unknown [id number] 2.16840.1.104842.3.579.2 .593 1938 Unknown [id number] 2.16.840.1.226022.3.579.2 .593 1938 Unknown [id number] 2.16.840.1.814780.3.579.2 .593 1938 Unknown [id number] 2.16.840.1.901982.3.579.2 .593 1938 Unknown [id number] 2.16.840.1.527633.3.579.2 .593 1938 Unknown [id number] 2.16.840.1.136396.3.579.2 .593 1938 Unknown [id number] 2.16.840.1.123986.3.579.2 .593 1938 Unknown [id number] 2.16840.1.852391.3.579.2 .593 1938 Unknown [id number] 2.16840.1.044118.3.579.2 .593 1938 Unknown [id number] 2.16.840.1.827043.3.579.2 .593 1938 Unknown [id number] 2.16.840.1.980816.3.579.2 .593 1938 Unknown [id number] 2.16840.1.699670.3.579.2 .593 1938 Unknown [id number] 2.16.840.1.159754.3.579.2 .593 1938 Unknown [id number] 2.16.840.1.103916.3.579.2 .593 1938 Unknown [id number] 2.16.840.1.182364.3.579.2 .593 1938 Unknown [id number] 2.16.840.1.917633.3.579.2 .593 1938 Unknown [id number] 2.16.840.1.817065.3.579.2 .593 1938 Unknown [id number] 2.16.840.1.388344.3.579.2 .593 1938 Unknown [id number] 2.16.840.1.109686.3.579.2 .732 1938 Unknown [id number] 2.16.840.1.153542.3.579.2 .173 1938 Unknown [id number] 2.16.840.1.820074.3.579.2 .1259 1938 Unknown [id number] 2.16.840.1.409256.3.579.2 .1259 1938 Unknown [id number] 2.16.840.1.585771.3.579.2 .1259 1938 Unknown [id number] 2.16.840.1.367825.3.579.2 .1259 1938 Unknown [id number] 2.16.840.1.317601.3.579.2 .1259 1938 Unknown [id number] 2.16.840.1.735399.3.579.2 .1259 1938 Unknown [id number] 2.16.840.1.236748.3.579.2 .1259 1938 Unknown [id number] 2.16.840.1.907472.3.579.2 .1259 1938 Unknown [id number] 2.16.840.1.219825.3.579.2 .1259 1938 Unknown [id number] 2.16.840.1.134847.3.579.2 .1259 1938 Unknown [id number] 2.16.840.1.718203.3.579.2 .1259 1938 Unknown [id number] 2.16.840.1.726218.3.579.2 .727 1938 Unknown [id number] 2.16.840.1.775135.3.579.2 .727 1938 Unknown [id number] 2.16.840.1.616891.3.579.2 .727 1938 Unknown [id number] 2.16.840.1.573279.3.579.2 .727 Social History Date Type Detail Facility Start: 09-03-2021 Tobacco smoking status Ex-smoker (fi nding) [facility] Start: 11-01-2022 End: 12-11-2023 Sex Assigned At Male [facility] Start: 04-26-2022 End: 11-14-2022 Tobacco smoking status Never smoked tobacco (finding) [facility] Tobacco smoking status Never [facility] Start: 11-14-2022 Tobacco use and [...] Facility 11-11-2023 Functional Status N/A [facility] 09-16-2022 Functional Status N/A [facility] 04-26-2022 Functional Status N/A [facility] 12-03-2021 Functional Status N/A [facility] 09-03-2021 Functional Status N/A [facility] Clinical Notes 09-03-2021 to 01-29-2024 Fe Rojo LPN - 01/29/2024 1:00 PM ESTPatient InstructionsDarcy Sandoval NP - 01/08/2024 2:00 PM EDTSjayda Sandoval NP - 12/25/2023 2:30 PM EDT Note Date & Type Note Facility 01-29-2024 History of Present illness Narrative HPI Follow-up Additional comments: [facility] observation: admitted 01/22/24 dx: syncope,hypotension,dehydration discharged home 01/23/24 no med changes made Last edited by Fe Rojo LPN on 01/29/2024 1:07 PM. Subjective Patient ID: Nat Moore is a 83 y.o. male who presents for Follow-up ([facility] observation: admitted 01/22/24 dx: syncope,hypotension,dehydration discharged [...] Past Medical History: Diagnosis Date Diabetes mellitus ([facility] [facility] Diverticulosis History of being hospitalized 10/07/2023 Acute Metabolic Encephalopathy Hypertension ([facility]) Lung nodule Memory loss Neuropathy Renal cyst 2021 rt cortical Ulcer of foot due to type 2 diabetes mellitus ([facility]) 09/04/2016 Past Surgical History: Procedure Laterality Date [...] Past Medical History: Diagnosis Date Diabetes mellitus ([facility] Diverticulosis History of being hospitalized 10/07/2023 Acute Metabolic Encephalopathy Hypertension ([facility] Lung nodule Memory loss Neuropathy Renal cyst 2021 rt cortical Ulcer of foot due to type 2 diabetes mellitus ([facility]) 09/04/2016 Past Surgical History: Procedure Laterality Date [...] Acute encephalopathy Coronary artery disease, Coronary calcification, [facility] 11/15 LAD: prox 40%, mid 60-70%. [...] initially admitted to the hospitalist service from [place] due to recurrent episodes of syncope secondary [...] his presenting complaints. During his stay in [place] ED he suddenly developed bradycardia prolonged sinus pause up to 18 seconds and became unresponsive. Code was activated and at the beginning of CPR he had regained his consciousness. He had another episode of sinus pause of about 12 seconds prior to transfer, however did not lose his consciousness at this time. On arrival to [facility] blood pressure was 158/72 mmHg, pulse rate 78 bpm, regular, SpO2 100% on room air, respiratory rate 20/min, temperature 97.2. 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 CT of the abdomen with contrast done at [place] ED showed nonobstructive bowel gas pattern with [...] significantly. Daily evaluated the patient on 11/21/2023. [place] slip was removed and they deemed patient [...] Center 12/02/2023 2:20 PM Liu Henning MD [facility] Heart[facility]AS Your medication list START taking these medications Instructions Last Dose Given Next Dose Due amLODIPine 10 mg tablet Commonly known as: Norvasc Start taking on: November 23, 2023 Take 1 tablet (10 mg) by mouth in the morning. Do not start bef (more content not included)... [facility] 11-22-2023 Note Physical Therapy Name: Nat Moore Date of : 1940 Today's Date: 11/22/23 Pt is unable to be seen for therapy at this time secondary to pt to discharge @ 2:00 PM today. Check No Charge Time attempted: 1405 [facility] 11-22-2023 Note Pt originally set fo r 9am BLS transport to [facility] but per MD we will push back to 2pm transport due to high blood pressures. UPDATE 1:15PM- Per pt can still discharge today. Transport set for 2pm via [facility]. Assembled transfer packet and placed by chart. Sent final AVS and discharge orders via [employer]. Notified RN and pt's is aware of transport time. [facility] 11-21-2023 Note Attestation signed by Juan Pablo [...] is for the patient to go to [facility]. Discussed with the family that our strong [...] with Dr. Liz. Melva Recinos MD PGY2 [facility] 11-21-2023 Note Hospital Medicine Daily Progress Note - 11/21/2023 2:13 PM; Room: [address] [place] [address] Admission: 11/15/2023 2:42 PM; Length of stay: 6 days THE HOSPITALIST TEAM PREFERS TO USE EPIC CHAT FOR COMMUNICATION 7AM-7PM. IF I DO NOT RESPOND WITHIN 15 MINUTES, PLEASE PAGE ME/CALL THROUGH THE CO FOUNDER AND CTO. 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 [place] slip removed. No need for psych admission. [...] CALCIUM mg/dL 8. (more content not included)... [facility] 11-21-2023 Note Physical Therapy Physical Therapy Treatment [...] a.m. Upon entry, pt in bed. This HVAC MECHANIC introduces herself and intention for session. Per [...] state President. Did state he was at [facility] .) Following Commands: Follows one [...] 2 is given. Gait belt is donned, DIETITIAN TEACHER is given on the right side and [...] to advance BLEs to EOB but uses HVAC MECHANIC's hand with his right hand to assist in raising upper body from bed. Bed Mobility 2 Bed Mobility From 2: Scooting Bed Mobility Type 2: To Bed Mobility to 2: (EOB in sitting) Level of Assistance 2: Minimum assistance Bed Mobility Comments 2: Pt uses HVAC MECHANIC's hand with his right hand to assist in scooting hips to EOB Transfers Transfer: Yes Transfer 1 Transfer From 1: Sit Transfer Type 1: To and from Transfer to 1: Stand Transfer Device 1: none (HVAC MECHANIC and aide on either side of pt) Transfer Level of Assistance 1: Minimum assistance, x2 Trials/Comments 1: Pt. instructed to (more content not included)... [facility] 11-21-2023 Note Attestation signed by Juan Pablo [...] Patient Name: Nat Moore MRN / CSN: [id number] Date of / Age: 2 1940 / [...] mild cognitive impairment originally presenting to the [facility] Emergency Room on 11/15/2023 for evaluation of recurrent episodes of syncope secondary to spontaneous prolonged sinus pause. The patient was transferred via air ambulance from the [facility]. 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 The patient reports being to his , Donna, and having 4 children. He reports he came from [place] where he lives, but was not able to describe why he came to hospital or where he is now. 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 Reported Behavior: Combative and agitated PRN [...] injection PRN 8/ (more content not included)... [facility] 11-20-2023 Note 11/20/23 1730 Referral Data Referral [...] Support Systems Spouse/significant other Type of Residence [facility] facility Will patient need Precert for Post Acute needs? Yes Patient's goal for discharge would like the facility in [place] for rehab 1. [facility] 2. [facility] 3. (if not accepted in [place]) she is ok with [facility]. Does the patient need discharge transport arranged? Yes SW called patient to discuss consult for SNF placement for rehab. Patient is currently confused and not able to answer questions. NATALYA discussed network provider list. would like provider in [place] with [facility] [place] [facility] 1st choice. She would [facility] [place] [facility] as 2nd and she is ok if neither can accept for [facility] as 3rd choice. Referrals made as requested. Precert will be needed. NATALYA following. [facility] 11-20-2023 Note Attestation signed by William Feldman [...] initially admitted to the hospitalist service from [place] due to recurrent episodes of syncope secondary [...] his presenting complaints. During his stay in [place] ED he suddenly developed bradycardia prolonged sinus [...] of the abdomen with contrast done at [place] ED showed nonobstructive bowel gas pattern with [...] no focal deficit (more content not included)... [facility] 11-19-2023 Note Speech Casting Assistant ology Speech/Language Pathology Clinical Swallow Assessment Rx: [...] calcifications who presented via air ambulance from [facility] due to recurrent episodes of syncope secondary to spontaneous prolonged sinus pause. He had initially presented for worsening midsternal chest pain lower back pain located in his mid chest aching in nature, 6 out of 10 on intensity scale, nonradiating associated with SOB. During his stay at [place] he developed bradycardia prolonged sinus pause up [...] (in puree) Recommendations Duration of Treatment: 15 [facility] 11-19-2023 Note Attestation signed by William Feldman [...] initially admitted to the hospitalist service from [place] due to recurrent episodes of syncope secondary [...] his presenting complaints. During his stay in [place] ED he suddenly developed bradycardia prolonged sinus [...] of the abdomen with contrast done at [place] ED showed nonobstructive bowel gas pattern with [...] Results CBC: Result (more content not included)... [facility] 11-19-2023 Note Attestation signed by Nora Rivera [...] calcifications who presented via air ambulance from [facility] due to recurrent episodes of syncope secondary to spontaneous prolonged sinus pause. He had initially presented for worsening midsternal chest pain lower back pain located in his mid chest aching in nature, 6 out of 10 on intensity scale, nonradiating associated with SOB. During his stay at [place] he developed bradycardia prolonged sinus pause up [...] NAD. Resting comfortably. Still in restraints. S/p [employer] DC-PPM yesterday, tolerated well. OBJECTIVE Objective [...] , , Once (more content not included)... [facility] 11-19-2023 Note 11/19/23 1125 Admission Assessment Questions [...] Status Interested Does the patient have a egg caser assigned to them through their insurance? No Living Arrangement (Current/Prior to Hospitalization) Private residence (with ) Does the patient have history of HHC or SNF? No Assistive Device Cane Patient's goal for discharge likely snf Was patient reminded that goal for discharge is 11am? No Does the patient have transportation at discharge? No Type of Residence [facility] facility Is PT/OT appropriate? Yes Is PT/OT ordered? Yes Is SW consult appropriate? Yes Is SW consult ordered? Yes Do you understand the benefits of MyChart? No Were you able to send link and activate MyChart? No [facility] 11-19-2023 Note Consult rec'd for SN F. PT/OT recommend SNF. No family at bedside at this time. SW to try again later. [facility] 11-19-2023 Note Physical Therapy Physical Therapy Evaluation [...] Level of Function Prior Function Level of [place]: Independent with ADLs and functional transfers, Needs [...] patient with difficul (more content not included)... [facility] 11-19-2023 Note Occupational Therapy Occupational Therapy Evaluation Patient Name: Nat Moore : 1940 Today's Date: 11/19/2023 Time In: 941 Time Out: 1005 admitted to the hospitalist service from [place] due to recurrent episodes of syncope secondary [...] directions Memory: Decreased short term memory, Decreased slipcover cutter memory, Decreased recall of precautions, Decreased recall of biographical information, Decreased recall of recent events Communication: (labored , dysarthic) General Assessment General Assessment Hearing: (false pass, hearing aids not observed but has them per nsg) Hand Dominance: Right Home Living Home Living Type of Home: (patient unable to report consistantly) Prior Level of Function Prior Function Level of [place]: (reports indep and drives) Prior Functional Mobility: [...] Little (Min Assist/Contact Guard/Supervision) Total Score OT [facility]: 8 Assessment/Plan OT Assessment OT Impairments: [...] until discharge & PRN OT Discharge Recommendations: [facility] facility placement OT - Discharge Recommendations Placed: Yes OT Goals Multi-Disciplinary Problems (from Occupational Therapy) Active Problems Problem: Balance Start Date: 11/19/23 Goal Start Date Expected End Date End Date LTG - Patient will maintain stand balance to allow for safe mobility 11/19/23 12/17/23 -- Problem: Bathing Start Date: 11/19/23 Goal Start Date Expected End Date End Date LTG (more content not included)... [facility] 11-18-2023 Note Attestation signed by William Feldman [...] [facility] Age - 83 [facility]. - 1940 [id number] Date of Admission - 11/15/2023 2:42 PM HPI/Hospital Course Nat Moore is a an 83-year-old gentleman with PMH significant for type 2 diabetes mellitus, essential hypertension, hyperlipidemia, CKD stage IIIa, bilateral lower extremity edema on diuretic therapy, osteoarthritis, depression and mild cognitive impairment was initially admitted to the hospitalist service from [place] due to recurrent episodes of syncope secondary [...] his presenting complaints. During his stay in [place] ED he suddenly developed bradycardia prolonged sinus [...] of the abdomen with contrast done at [place] ED showed nonobstructive bowel gas pattern with [...] 11.9* 12.4* HE (more content not included)... [facility] 11-18-2023 Note Attestation signed by Nora Rivera [...] calcifications who presented via air ambulance from [facility] due to recurrent episodes of syncope secondary to spontaneous prolonged sinus pause. He had initially presented for worsening midsternal chest pain lower back pain located in his mid chest aching in nature, 6 out of 10 on intensity scale, nonradiating associated with SOB. During his stay at [place] he developed bradycardia prolonged sinus pause up [...] NAD. Resting comfortably. Still in restraints. S/p [employer] DC-PPM this morning, tolerated well. OBJECTIVE [...] PRN, Nils Lam (more content not included)... [facility] 11-18-2023 Note DUAL CHAMBER PACEMAK ER IMPLANT PROCEDURE NOTE DATE OF PROCEDURE: 11/18/23 PERFORMING PHYSICIAN: Dr. Sam Oscar CONSENT: Patient LOCATION: EP Lab PROCEDURE PERFORMED: 1. Implantation of pacemaker ([employer]) 2. Ultrasound guided venous access INDICATIONS: [...] using modified seldinger technique using a 5 Pakistani micro-puncture needle on two occasions and 0.35 [...] for the device above the muscle. 6 Pakistani Safesheaths were placed over the wire. An active fixation [employer] pacing lead was then delivered through the 6Fsheath to the right ventricle. After confirmation of lead position on orthogonal views (WILKINSON and MAORI) to confirm septal position, the screw was [...] was then removed. Then an active fixation [employer] lead was delivered through the 6Fsheath to the right atrial appendage. After confirmation of lead position on orthogonal views (WILKINSON and MAORI), the screw was activated. Good sensing parameters, [...] any concerns. Sam Oscar MD Cardiac Electrophysiology [facility] 11-17-2023 Note Attestation signed by [...] calcifications who presented via air ambulance from [facility] due to recurrent episodes of syncope secondary to spontaneous prolonged sinus pause. He had initially presented for worsening midsternal chest pain lower back pain located in his mid chest aching in nature, 6 out of 10 on intensity scale, nonradiating associated with SOB. During his stay at [place] he developed bradycardia prolonged sinus pause up [...] oral, Daily, [place] (more content not included)... [facility] 11-17-2023 Note Attestation signed by William Feldman [...] initially admitted to the hospitalist service from [place] due to recurrent episodes of syncope secondary [...] his presenting complaints. During his stay in [place] ED he suddenly developed bradycardia prolonged sinus [...] of the abdomen with contrast done at [facility] showed nonobstructive bowel gas pattern with a [...] planning on taking the patient to the Remelt Operator tomorrow for possible transvenous pacemaker placement [...] hours) at 11/17/2023 (more content not included)... [facility] 11-16-2023 Note Cardiovascular Labor atory Report FINAL [...] left radial artery was obtained. A 6 Pakistani glide sheath was inserted without difficulty. Difficulty [...] a mid v (more content not included)... [facility] 11-16-2023 Note Attestation signed by Salena Alcaraz [...] permanent pacemaker implantation tomorrow Salena Alcaraz MD, [facility] Cardiology Progress Note Subjective Subjective: Patient [...] Value Ventricular Rate 85 Atrial Rate 85 CO Interval 266 QRS DURATION 104 QT Interval 390 QTC CALCULATION(BAZETT) 464 P [place] 71 R-[place] -60 T Wave [place] 49 Impression Sinus rhythm with 1st degree A-V block Left axis deviation Inferior infarct (cited on or before 21-JUL-2012) Cannot rule out Anterior infarct (cited on or before 15-NOV-2023) Abnormal ECG When compared with ECG of 15-NOV-2023 19:56, (unconfirmed) No significant change was found Lab Results Component Value Date TROPONINI 0.01 11/15/2023 Transthoracic echo (TTE) complete Result Date: 11/15/2023 1 1 [facility] [address] [place] [address] [phone] (fax) Echocardiogram-[facility] Name: NAT MOORE Study Date: 11/15/2023 05:06 PM B/P: 158 mmHg/72 mmHg HR: Date of : 1940 Location: [facility] Height: 65 in. Age: 83 year(s) Patient [...] sizeNo significant v (more content not included)... [facility] 11-15-2023 Note CODE BLUE was called on this patient after he sustained a 10 the second sinus pause and then a 7-second sinus pause. Patient with brief LOC. Patient with multiple episodes of nausea and vomiting. MICU fellow at bedside who states he will transfer patient to MICU for transcutaneous pacing. [facility] 11-15-2023 Note Hospital Medicine History and Physical 11/15/2023 5:58 PM THE HOSPITALIST TEAM PREFERS TO USE [employer] CHAT FOR COMMUNICATION 7AM-7PM. IF I DO NOT RESPOND WITHIN 15 MINUTES, PLEASE PAGE ME/CALL THROUGH THE CO FOUNDER AND CTO. FROM 7PM-7AM, PLEASE PAGE [phone](COVR) Chief Complaint No chief complaint on file. History of Present Illness Nat Moore is an 83 y.o. severely obese male with a medical history significant for type 2 diabetes mellitus, essential hypertension, hyperlipidemia, CKD stage IIIa, bilateral lower extremity edema on diuretic therapy, osteoarthritis, coronary calcifications, depression, mild cognitive impairment, who was transferred via air ambulance from the [facility] due to recurrent episodes of syncope secondary to spontaneous prolonged sinus pause. Patient states that he presented to the [place] ED due to worsening midsternal chest pain [...] his presenting complaints. During his stay in [place] ED he suddenly developed bradycardia prolonged sinus [...] of the abdomen with contrast done at [place] ED showed nonobstructive bowel gas pattern with [...] no oral abnorma (more content not included)... [facility] 11-11-2023 Hospital Discharge instructions Patient Education 11/11/2023 [...] your health care provider. General instructions Take xthp-eea-agkuyfp and prescription medicines only as told by [...] provider. Document Revised: 11/27/2020 Document Reviewed: 11/27/2020 [employer] Patient Education 2022 [employer] Follow Up Care 10/14/2023 13:29:56 With:RAUL Ingram APRN, RIANNA Abad, URL Address: When: Unknown Comments:f/up in 3 mos [facility] 11-11-2023 Note Patient Education Obstetrics and [...] health care provider. General instructions ? Take tvnk-veb-pidvozf and prescription medicines only as told by [...] your health care (more content not included)... [facility] 09-16-2022 Hospital Discharge instructions Patient Education [...] your health care provider. General instructions Take lqqf-nas-mczhmnx and prescription medicines only as told by [...] provider. Document Revised: 11/27/2020 Document Reviewed: 11/27/2020 [employer] Patient Education 2022 [employer] Follow Up Care 04/26/2022 11:39:09 With:ERIK MENG, Umer Schultz, URL Address: [facility] [address] [place] [address]- When: Unknown [facility] Note CONSULTATION CONSULTATION DATE: 05/23/2022 HISTORY: [...] indicated. Patient agrees with this plan. [facility] 04-26-2022 Hospital Discharge instructions Patient Education 04/26/2022 [...] urethra. Follow these instructions at home: Take gqgm-rfk-vjwrtec and prescription medicines only as told by [...] 03/10/2006 Document Revised: 02/02/2019 Document Reviewed: 04/14/2017 [employer] Patient Education 2020 [employer] Follow Up Care 04/08/2022 14:01:00 With:ERIK MENG, Umer Schultz, URL Address: [address] [place] [address]- When: Unknown [facility] 04-08-2022 Hospital Discharge instructions Patient [...] urethra. Follow these instructions at home: Take vwmw-uur-ktssfxr and prescription medicines only as told by [...] 03/10/2006 Document Revised: 02/02/2019 Document Reviewed: 04/14/2017 [employer] Patient Education 2020 [employer] Follow Up Care 12/03/2021 14:11:02 With:ERIK MENG, Umer Schultz, URL Address: [facility] [address], [place] [address]- When: Unknown [facility] 01-22-2022 Note CONSULTATION CONSULTATION DATE: 01/22/2022 [...] proceed. CC: Juan Pablo Alaniz M.D. [facility] 12-13-2021 Note CONSULTATION CONSULTATION DATE: 12/13/2021 HISTORY [...] his pain are prolonged sitting, standing, walking, vp clinical hours, bending and ADLs. He does not use heat or ice to his back at this time. Current medications include gabapentin 200 mg t.i.d., nabumetone 750 mg b.i.d., Bon Aqua 5/325 t.i.d. Patient does use a walking [...] L3 and L4, L5. A refill for Bon Aqua 5/325 t.i.d. will be sent today. He will receive an oral U-Tox in the office today. Supportive measures such as stretching, a menthol heat rub and heat application to his back were discussed. I did recommend a Boost supplement daily. Patient will be followed up in the office post procedure and agrees to move forward. [facility] 12-03-2021 Hospital Discharge instructions Patient Education 12/03/2021 [...] urethra. Follow these instructions at home: Take wmki-eza-uaenxfu and prescription medicines only as told by [...] 03/10/2006 Document Revised: 02/02/2019 Document Reviewed: 04/14/2017 [employer] Patient Education 2020 [employer] Follow Up Care 09/03/2021 14:17:23 With:ERIK MENG, Umer Schultz, URL Address: [facility] [address] [place] [address]- [phone] When:04/04/2022 Comments:PVR [facility] 10-02-2021 Note CONSULTATION PROCEDURE DATE: [...] DR VINH HOLCOMB . 10/09/2021 09:28:00 [facility] 10-02-2021 Note CONSULTATION CONSULTATION DATE: 10/02/2021 CHIEF [...] three times a day. We will re-prescribe Bon Aqua 5/325 t.i.d. which he had received from [...] by: DR VINH HOLCOMB . 10/09/2021 09:28:00 [facility] 09-03-2021 Hospital Discharge instructions Patient Education [...] 03/10/2006 Document Revised: 11/27/2018 Document Reviewed: 02/07/2017 [employer] Patient Education 2020 [employer] 09/03/2021 13:53:06 Benign Prostatic Hyperplasia Benign Prostatic [...] urethra. Follow these instructions at home: Take [id number] and prescription medicines only as told by [...] 03/10/2006 Document Revised: 02/02/2019 Document Reviewed: 04/14/2017 [employer] Patient Education 2020 [employer] Follow Up Care 07/03/2021 15:21:16 With:ERIK MENG, Umer Schultz, URL Address: [facility] [address] [place] [address]- [phone] When:Within 3 Month(s) Comments:f/u in 3 months with PVR scan [facility] Evaluation + Plan note Future Appointments Appointment Date:12/03/2021 01:15:00 PM Scheduled Provider:Umer VALENCIA MD Location:[facility] Appointment Type:URO Office Visit [facility] Evaluation + Plan note Future Appointments Appointment Date:04/08/2022 12:45:00 PM Scheduled Provider:Umer VALENCIA MD Location:[facility] Appointment Type:URO Office Visit [facility] Evaluation + Plan note Future Appointments Appointment Date:04/26/2022 10:15:00 AM Scheduled Provider:Umer VALENCIA MD Location:[facility] Appointment Type:URO Office Visit [facility] Evaluation + Plan note Future Appointments Appointment Date:07/22/2022 08:45:00 AM Scheduled Provider:Umer VALENCIA MD Location:[facility] Appointment Type:URO Office Visit [facility] Evaluation + Plan note Future Appointments Appointment Date:12/20/2022 08:30:00 AM Scheduled Provider:Umer VALENCIA MD Location:[facility] Appointment Type:URO Office Visit [facility] Evaluation + Plan note Future Appointments Appointment Date:11/11/2023 01:00:00 PM Scheduled Provider:RAUL Ingram APRN Marianela X Location:[facility] Appointment Type:URO Office Visit [facility] Evaluation + Plan note Future Appointments Appointment Date:02/10/2024 12:30:00 PM Scheduled Provider:RAUL Ingram APRN Marianela X Location:[facility] Appointment Type:URO Office Visit [facility] Evaluation note Diagnosis Localized edema- Primary Edema Acute cough documented in this encounter [facility] HealthcareEvaluation note* Diagnosis Edema, unspecified type- Primary Altered mental status, unspecified altered mental status type documented in this encounter [facility] HealthcareEvaluation note* Diagnosis Acute cough- Primary Upper respiratory tract infection, unspecified type Localized edema Edema documented in this encounter [facility] HealthcareHospital course Narrative No data available for this section [facility] Hospital Discharge instructions No data available for this section [facility] progress note No data available for this section [facility] Summary Purpose Family History No [...] content) DATE CREATED AUTHOR 11/14/2020 [facility] DATE CREATED AUTHOR AUTHOR'S ORGANIZ ATION 08/02/2022 [facility] DATE CREATED AUTHOR AUTHOR'S ORGANIZ ATION 11/17/2023 [facility] DATE CREATED AUTHOR AUTHOR'S ORGANIZ ATION 11/24/2023 [facility] DATE CREATED AUTHOR AUTHOR'S ORGANIZ ATION 12/07/2023 [facility] DATE CREATED AUTHOR AUTHOR'S ORGANIZ ATION 01/31/2024 [facility] EPIC DATE CREATED AUTHOR AUTHOR'S ORGANIZ ATION 02/13/2024 [facility] Care Team (unrecognized sect ion and content) Safe Deposit Attendant Relationship Specialty Start Date End Date Juan Pablo Alaniz MD [address] [facility] [address] [place] [address] PCP - Peg CHURCHILL 03/24/21 Juan Pablo Alaniz MD [address] [place] [address] PCP - General Internal Medicine 07/30/22 Safe Deposit Attendant Relationship Specialty Start Date End Date Juan Pablo Alaniz MD [address] [place] [address] PCP - Peg CHURCHILL 03/24/21 Juan Pablo Alaniz MD [address] [place] [address] PCP - General Internal Medicine 07/30/22 Safe Deposit Attendant Relationship Specialty Start Date End Date Juan Pablo Alaniz MD [address] [place] [address] PCP - Peg CHURCHILL 03/24/21 Juan Pablo Alaniz MD [address] [place] [address] PCP - General Internal Medicine 07/30/22 Safe Deposit Attendant Relationship Specialty Start Date End Date Juan Pablo Alaniz MD [address] [place] [address] PCP - Peg CHURCHILL 03/24/21 Juan Pablo Alaniz MD [address] [place] [address] PCP - General Internal Medicine 07/30/22 Safe Deposit Attendant Relationship Specialty Start Date End Date Juan Pablo Alaniz MD [address] [place] [address] PCP - Peg CHURCHILL 03/24/21 Juan Pablo Alaniz MD [address] [place] [address] PCP - General Internal Medicine 07/30/22 Safe Deposit Attendant Relationship Specialty Start Date End Date Juan Pablo Alaniz MD [address] [place] [address] PCP - Peg CHURCHILL 03/24/21 Juan Pablo Alaniz MD [address] [place] [address] PCP - General Internal Medicine 07/30/22 Safe Deposit Attendant Relationship Specialty Start Date End Date Juan Pablo Alaniz MD [address] [place] [address] PCP - Peg CHURCHILL 03/24/21 Juan Pablo Alaniz MD [address] [place] [address] PCP - General Internal Medicine 07/30/22 Reason [...] BE BASED ON THE PRIMARY CLINICAL RECORDS. [employer] [facility]. provides no warranty or guarantee of the accuracy or completeness of information in this document.
[2024-02-15 22:59] VITALS: BP 189/79; PULSE 81; TEMP 36.4; O2SAT 91; BMI 35.0
[2024-02-15 23:06] VITALS: BMI 33.8
[2024-02-15] MEDS: TEMAZEPAM 15 MG CAPSULE PO (23:22)
[2024-02-15] MEDS: GABAPENTIN 100 MG CAPSULE 200 MG PO (23:22)
[2024-02-15] MEDS: DONEPEZIL HCL 10 MG TABLET PO (23:22)
[2024-02-15] MEDS: MELOXICAM 7.5 MG TABLET 15 MG PO (23:22)
[2024-02-15] MEDS: METHOCARBAMOL 500 MG TABLET PO (23:22)
[2024-02-15 23:24] LABS: Bilirubin Urine NEGATIVE (NEGATIVE); Blood Urine NEGATIVE (NEGATIVE); Clarity Urine CLEAR (CLEAR); Color Urine LT. YELLOW (YELLOW); Glucose Urine UA NEGATIVE (NEGATIVE); Ketones Urine NEGATIVE (NEGATIVE); Leukocyte Esterase Urine NEGATIVE (NEGATIVE); Nitrite Urine NEGATIVE (NEGATIVE); Protein Urine NEGATIVE (NEG/TRACE); Specific Gravity Urine 1.015 (1.005-1.025); Urobilinogen Urine 0.2 EU/dL (0.2-1.0)
[2024-02-15 23:27] LABS: Urine Microscopic Indicated NO
[2024-02-15 23:54] VITALS: BP 158/72
[2024-02-16] MEDS: GABAPENTIN 100 MG CAPSULE 200 MG PO ×3 (05:55→21:43)
[2024-02-16 05:57] VITALS: BP 160/82; PULSE 74; TEMP 36.6; O2SAT 94
[2024-02-16 06:07] LABS: Basophils Percent Auto 0.7 % (0.2-2.0); Eosinophils Absolute Auto 0.4 10^3/uL (0.0-0.7); Eosinophils Percent Auto 7.3 % (0.9-7.0); Hematocrit 32.5 % (42.0-54.0); Hemoglobin 10.5 g/dL (14.0-18.0); Immature Granulocytes Abs Auto 0.01 10^3/uL (0.00-0.03); Immature Granulocytes Pct Auto 0.2 % (0.0-0.5); Lymphocytes Absolute Auto 1.9 10^3/uL (1.2-3.8); Lymphocytes Percent Auto 31.4 % (20.5-60.0); Mean Corpuscular HGB Conc 32.3 g/dL (29.9-35.2); Mean Corpuscular Hemoglobin 31.3 pg (25.9-34.0); Mean Platelet Volume 11.4 fL (9.5-13.5); Monocytes Absolute Auto 0.5 10^3/uL (0.3-0.8); Monocytes Percent Auto 8.1 % (1.7-12.0); Neutrophils Absolute Auto 3.2 10^3/uL (1.4-6.5); Neutrophils Percent Auto 52.3 % (43.0-75.0); Platelet Count 168 10^3/uL (150-450); Red Blood Count 3.35 10^6/uL (4.70-6.10); Red Cell Distribution Width 14.2 % (11.0-15.0); White Blood Count 6.1 10^3/uL (4.0-11.0)
[2024-02-16 06:28] LABS: Alanine Aminotransferase 22 U/L (16-63); Albumin Globulin Ratio 0.8; Albumin Level 2.6 g/dL (3.4-5.0); Alkaline Phosphatase 82 U/L (46-116); Anion Gap 10.9; Aspartate Amino Transferase 17 U/L (15-37); BUN Creatinine Ratio 13.9; Bilirubin Total 0.5 mg/dL (0.2-1.0); Calcium 8.2 mg/dL (8.5-10.1); Carbon Dioxide 27.4 mmol/L (21.0-32.0); Chloride 111 mmol/L (98-107); Estimated GFR (African America 51 (>=60 mL/min/1.73m^2); Estimated GFR (Non-African Ame 42 (>=60 mL/min/1.73m^2); Globulin 3.2 g/dL; Glucose 67 mg/dL (74-106); Magnesium 1.9 mg/dL (1.8-2.4); Potassium 4.3 mmol/L (3.5-5.1); Sodium 145 mmol/L (136-145); Total Protein 5.8 g/dL (6.4-8.2)
--- NOTE | 2024-02-16 09:44 | SWNOTE1 ---
During pt's last stay at hospital he was discharged to [facility]. NATALYA reviewed ED note and pt's is now hospitalized due to hip fracture and pt's son can't care for him at home. NATALYA sent Lilly at [facility] an email to see how he did at and if they would be able to take him back. NATALYA received a call from Lilly at [facility]. She stated it it actually pt's ex- and they are . She stated they knew something would happen once he discharged home from facility as they had voiced to family he was not safe to return home, but family would not discuss any skilled nursing of financial status with NATALYA at [facility]. Lilly stated they did find out the ex- and daughter did not want to discuss Medicaid or finances because pt has a rather large pension and they did not want to lose that. She stated the son never made it to [facility] prior to discharge to discuss anything, but he wanted pt to stay skilled nursing and be cared for. Lilly also stated she is not sure he will qualify for Medicaid due to the pension being so large. Lilly stated they have no problems caring for pt, but he was starting to wonder in facility so they had to put him in the Dementia locked unit for safety. If pt was to return to facility, family would have to pay out of pocket. Semi-private room is $314 per day and $372 per day. NATALYA to reach out to pt's son. NATALYA called son, Otis, no answer and left voicemail.
[2024-02-16] MEDS: FLUOXETINE HCL 10 MG CAPSULE PO (09:56)
[2024-02-16] MEDS: FLUOXETINE HCL 20 MG CAPSULE PO (09:56)
[2024-02-16] MEDS: ENOXAPARIN SODIUM 40 MG/0.4 ML SYRINGE SUBQ (09:56)
[2024-02-16 10:28] VITALS: BP 152/79; PULSE 74; TEMP 36.4; O2SAT 93
--- NOTE | 2024-02-16 10:38 | CM.NOTE ---
Rounds made with Dr. Salas. Dr. Salas reviews plan of care.
[2024-02-16 10:39] VITALS: O2SAT 95
--- NOTE | 2024-02-16 10:48 | PM.HP ---
HPI H&P: HPI History of Present Illness Chief complaint: Confused DEMENTIA Narrative: 83 y o patient with hx of dementia, lives with his and is dependent on her for ADLs. She felt recently and fractured her hip and currently unable to take care of him. Patient was sent to ED by his son who stopped by the house at night and noticed that patient was still in his bed since the morning and had only eaten breakfast. Son is unable to take care of him so he called EMS and the patient was brought over to ED. Patient ambulates using a cane. No recent falls and was discharged from rehab 2 weeks ago. Work up in ED was unremarkable and there was no acute/active metabolic/infectious etiology on initial work up. Upon my evaluation, patient seems to be at his baseline and has no active complaints to offer except for forgetfulness which is chronic and due to hx of dementia. Opioid HPI Opioid Management Most Recent Pain and Opioid Data: Last Pain Scale 10 02/02/24 11:00 02/02/24 Last Pain Assessment 02/16/24 10:00 Last ORT Total Score 0 02/15/24 22:59 02/15/24 Last ORT Risk Category Low Risk 02/15/24 22:59 02/15/24 Ur Phencyclidine Scrn Negative (NEGATIVE) 07/26/23 08:10 07/26/23 Review of Systems ROS Status of ROS 10 or more systems reviewed and unremarkable except as noted in history and below [facility] Medical History (Updated 02/16/24 @ 10:55 by Shaikh Maritza MD) CKD stage 3a, GFR 45-59 ml/min ?N18.31 - Chronic kidney disease, stage 3a (ICD-10) Cellulitis ?L03.90 - Cellulitis, unspecified (ICD-10) Pneumonia ?J18.9 - Pneumonia, unspecified organism (ICD-10) Generalized weakness ?R53.1 - Weakness (ICD-10) Accidental fall ?W19.XXXA - Unspecified fall, initial encounter (ICD-10) History of pacemaker ?Z95.0 - Presence of cardiac pacemaker (ICD-10) Vomiting ?R11.10 - Vomiting, unspecified (ICD-10) Acute metabolic encephalopathy ?G93.41 - Metabolic encephalopathy (ICD-10) 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 (ICD-10) Low back pain ?M54.50 - Low back pain, unspecified (ICD-10) Dementia ?F03.90 - Unspecified dementia, unspecified severity, without behavioral disturbance, psychotic disturbance, mood disturbance, and anxiety (ICD-10) Depression ?F32.A - Depression, unspecified (ICD-10) Hyperuricemia ?E79.0 - Hyperuricemia without signs of inflammatory arthritis and tophaceous disease (ICD-10) HLD (hyperlipidemia) ?E78.5 - Hyperlipidemia, unspecified (ICD-10) Type 2 diabetes mellitus ?E11.9 - Type 2 diabetes mellitus without complications (ICD-10) HTN (hypertension) ?I10 - Essential (primary) hypertension (ICD-10) Surgical History Pacemaker ?Z95.0 - Presence of cardiac pacemaker (ICD-10) Social History (Updated 01/22/24 @ 18:51 by Kalli Middleton) Within the past year, how often did you have a drink containing alcohol: never Within the past year, how many standard drinks containing alcohol did you have on a typical day: 1 or 2 Within the past year, how often did you have six or more drinks on one occasion: never Total score: 0 Score interpretation: A score less than 4 is consistent with normal alcohol consumption. Smoking status: Never smoker Non-prescribed substance use: denies use Highest level of school completed/degree received: high school graduate Are you now , , , , never or living with a partner: Little interest or pleasure in doing things: not at all Feeling down, depressed, or hopeless: not at all Feel stressed/tense/nervous/anxious/difficulty sleeping: not at all Do you think of yourself as: straight/heterosexual Gender Identity: male Gender Identity Comment: Inability to assess at present time due to extent of pt's Dementia. Meds Home Medications and Allergies Home Medications ?Medication ?Instructions ?Recorded ?Confirmed ?Type allopurinol 300 mg tablet 300 mg PO DAILY 07/26/23 02/01/24 History docusate sodium 100 mg capsule 100 mg PO DAILY PRN constipation 07/26/23 02/01/24 History donepezil 10 mg tablet 10 mg PO BEDTIME 07/26/23 02/01/24 History fluoxetine 20 mg capsule 20 mg PO DAILY 07/26/23 02/01/24 History gabapentin 100 mg capsule 200 mg PO TID 07/26/23 02/01/24 History glipizide 10 mg tablet 10 mg PO BID 07/26/23 02/01/24 History meloxicam 15 mg tablet 15 mg PO BEDTIME 07/26/23 02/01/24 History methocarbamol 500 mg tablet 500 mg PO BEDTIME 07/26/23 02/01/24 History omeprazole 40 mg capsule,delayed 40 mg PO .ACB 07/26/23 02/01/24 History release tamsulosin 0.4 mg capsule 0.4 mg PO DAILY 07/26/23 02/01/24 History candesartan 32 mg tablet (Atacand) 32 mg PO DAILY #30 tabs 10/07/23 02/01/24 Rx furosemide 40 mg tablet 40 mg PO DAILY 11/15/23 02/01/24 History potassium chloride 20 mEq 20 meq PO DAILY 11/15/23 02/01/24 History tablet,extended release(part/cryst) trospium 60 mg capsule,extended 60 mg PO DAILY 11/15/23 02/01/24 History release 24 hr amlodipine 5 mg tablet 5 mg PO .QD 01/22/24 02/01/24 History aspirin 81 mg chewable tablet 1 tab PO .QD 01/22/24 02/01/24 History atorvastatin 40 mg tablet 40 mg PO .QHS 01/22/24 02/01/24 History fluoxetine 10 mg capsule 10 mg PO DAILY 01/22/24 02/01/24 History oxybutynin chloride 5 mg 5 mg PO .QHS 01/22/24 02/01/24 History tablet,extended release 24 hr quetiapine 25 mg tablet 25 mg PO BID 01/22/24 02/01/24 History trazodone 100 mg tablet 100 mg PO .QHS 01/22/24 02/01/24 History azithromycin 500 mg tablet 500 mg PO DAILY 02/01/24 02/01/24 History chlorpheniramine-acetaminophen 2 2 tab PO Q6H 02/01/24 02/01/24 History mg-325 mg tablet (Coricidin HBP Cold and Flu) lidocaine 5 % topical patch 1 patch topical QAM 02/01/24 02/01/24 History cefdinir 300 mg capsule 600 mg (2 x 300 mg) PO DAILY #20 02/03/24 Rx caps magnesium oxide 400 mg (241.3 mg 400 mg PO BID #60 tabs 02/03/24 Rx magnesium) tablet Allergies Allergy/AdvReac Type Severity Reaction Status Date / Time Penicillins Allergy Intermediate Unknown Verified 02/15/24 20:18 Exam Constitutional Vital Signs, click to edit/add: Last Vital Signs Temp 97.5 F L 02/16/24 10:28 Pulse 74 02/16/24 10:28 Resp 18 02/16/24 10:28 BP 152/79 H 02/16/24 10:28 Pulse Ox 95 02/16/24 10:39 O2 Del Method Room Air 02/16/24 10:39 Documenting provider has reviewed patient's vital signs: yes Common normals: no apparent distress and oriented x3 General appearance: cooperative Respiratory Common normals: normal respiratory effort and clear to auscultation bilaterally Effort & inspection: able to speak in complete sentences Auscultation: clear to auscultation bilaterally Cardio Common normals: regular rate, S1 normal heart sound and S2 normal heart sound Rate: regular rate Heart sounds: S1 normal and S2 normal GI Common normals: Normal to inspection, nondistended, normoactive bowel sounds present, soft to palpation, non-tender and no hepatosplenomegaly Palpation: soft and no hepatosplenomegaly Extremity Common normals: no clubbing, cyanosis or edema Neuro Common normals: oriented x3, moves all extremities and no focal motor deficits Psych Common normals: mental status grossly normal, denies hallucinations, denies homicidal ideation and denies suicidal ideation Results Labs Labs: Short CBC 02/15/24 02/16/24 Range/Units 20:45 05:30 WBC 7.2 6.1 (4.0-11.0) 10^3/uL Hgb 11.3 L 10.5 L (14.0-18.0) g/dL Hct 33.8 L 32.5 L (42.0-54.0) % Plt Count 161 168 (150-450) 10^3/uL BMP 02/15/24 02/16/24 20:45 05:30 Sodium 146 H 145 Potassium 4.6 4.3 Chloride 109 H 111 H Carbon Dioxide 27.7 27.4 BUN 25.0 H 22.0 H Creatinine 1.69 H 1.58 H Glucose 79 67 L Calcium 8.7 8.2 L Liver Function 02/15/24 02/16/24 Range/Units 20:45 05:30 Total Bilirubin 0.5 0.5 (0.2-1.0) mg/dL AST 22 17 (15-37) U/L ALT 26 22 (16-63) U/L Alkaline Phosphatase 88 82 (46-116) U/L Albumin 2.9 L 2.6 L (3.4-5.0) g/dL Urine 02/15/24 Range/Units 23:16 Urine Color Lt. yellow (YELLOW) Urine Clarity Clear (CLEAR) Urine pH 6.0 (5.0-9.0) Ur Specific [place] 1.015 (1.005-1.025) Urine Protein Negative (NEG/TRACE) mg/dL Urine Glucose (UA) Negative (NEGATIVE) mg/dL Assessment and Plan Assessment and Plan (1) Dementia: Assessment and Plan: Hx of dementia. More or less at his baseline. No acute change in mental status. No acute/sig abnormality noted on blood work. Cw home medications. Qualifiers: Dementia type: Alzheimer's Alzheimer's disease onset: late onset Dementia severity: moderate Dementia behavioral or psychological symptom: with mood disturbance Qualified Code(s): G30.1 - Alzheimer's disease with late onset; F02.B3 - Dementia in other diseases classified elsewhere, moderate, with mood disturbance (2) Depression: Assessment and Plan: Stable mood. No SI/HI. Qualifiers: Depression Type: major depressive disorder Major depression recurrence: recurrent Active/Remission status: currently active Major depression episode severity: mild Qualified Code(s): 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, recurrent, mild (3) HLD (hyperlipidemia): Assessment and Plan: c/w statin Qualifiers: Hyperlipidemia type: unspecified Qualified Code(s): E78.5 - Hyperlipidemia, unspecified (4) Type 2 diabetes mellitus: Assessment and Plan: Hold glipizide. SSI while inpatient. Qualifiers: Diabetes mellitus terminal worker insulin use: with mcc use Diabetes mellitus complication status: with kidney complications Diabetes mellitus complication detail: with chronic kidney disease Chronic kidney disease stage: stage 3 (moderate) Chronic kidney disease stage 3 subtype: stage 3a (GFR 45-59) Qualified Code(s): E11.22 - Type 2 diabetes mellitus with diabetic chronic kidney disease; N18.31 - Chronic kidney disease, stage 3a; Z79.4 - adjunct faculty for medical terminology (current) use of insulin (5) HTN (hypertension): Assessment and Plan: Slightly above goal. C/w home medications. IV hydralazine as needed Qualifiers: Hypertension type: primary hypertension Qualified Code(s): I10 - Essential (primary) hypertension (6) CKD stage 3a, GFR 45-59 ml/min: Assessment and Plan: Renal fx at baseline. Monitor. Plan PT/OT eval. Social service consulted. Will need to determine safe disposition for the patient.
--- NOTE | 2024-02-16 13:17 | SWNOTE1 ---
NATALYA spoke to Lilly who spoke to pt's son Wei. They had discussed finances, but nobody in the family knows anything about his savings or chcf/pension. Without knowing this [facility] can't take patient. They will need to know secondary payor and if pt will qualify for Medicaid. Wei had offered to Lilly to come up from [facility] and try to find out this information. It was recommended to call the stack to see. NATALYA did ask Lilly for pt's daughters number. NATALYA called daughter, Aye. Aye was at [facility] and pt's is in surgery now. NATALYA explained to Aye that [facility] will need to know the financial situation and that pt will need intermodal customer service placement. At this time insurance will not cover rehab and if they did it would be a short time and [facility] and any other facility will need to know monthly income and if pt will qualify for medicaid. Aye voiced she honestly had no idea, she thinks the pension is a couple thousand. She stated she can't bring him home with her as she has steps to get in to the home. She stated she is the one that does help care for him as needed. She is not sure on any finances and will be able to find out once her mother is co-herent and out of surgery. NATALYA expressed that her and all her siblings need to be contacting each other and come up with a plan for pt. Pt is medically stable for discharge and NATALYA expressed that he can't sit here at hospital for several days waiting. She stated she has spoke to them, but unsure of plan. NATALYA expressed that one of the children needs to call the bank to see if they can find out the financial situation. NATALYA advised Aye that NATALYA is going to be calling Wei back and telling him the same thing. NATALYA offered to meet with her and her siblings tomorrow. At this point SW is unsure of plan. NATALYA called Wei and left a voicemail and advised that at this point one of the children has to figure out finances or the alternative is one of the children taking patient home until finances are figured out. SW to call pt's son Otis as well.
--- NOTE | 2024-02-16 13:28 | SWNOTE1 ---
SW called pt's son Otis and left a voicemail expressing the urgency of figuring out financial situation.
--- NOTE | 2024-02-16 13:53 | SWNOTE1 ---
NATALYA reached out to [facility] [place] to see if they have openings since they have a memory unit as well. NATALYA sent email to Nena in admissions explaining the situation, waiting to hear back.
--- NOTE | 2024-02-16 14:10 | SWNOTE1 ---
NATALYA reached out to Nena at [facility] in [place]. They also have a secured unit. NATALYA explained situation to Jolene and she voiced they can review and let SW know. PT/OT did recommend SNF, but unsure if pt will get approved. NATALYA called Wei to let him know about [facility]. He then voiced he does have financial POA and he can call a bank and get financil situation within the hour. SW expressed that he needs to do this. Wei also stated that Lilly at [facility] told him they are going to try to figure things out and maybe get his insurance to pay. NATALYA explained that Lilly had told SW that they can't accept without having a secondary payer because even if he was approved for SNF, [facility]'s corporate would want to know the plan/payor for after SNF stay. Wei stated that is not what he understood. NATALYA recommended he call Lilly at [facility]. SW to work on [facility] and [facility] for placement. Referral sent to [facility]. Referral included face sheet, ED note, H&P, provider notes, case management report, wound consult, nursing notes, diagnostic imaging, med list, and PT/OT notes. Referral sent to [facility]. Referral included face sheet, ED note, H&P, provider notes, case management report, wound consult, nursing notes, diagnostic imaging, med list, and PT/OT notes.
--- NOTE | 2024-02-16 14:40 | SWNOTE1 ---
NATALYA spoke to Lilly again at [facility]. Lilly did just speak with Wei and he had told her that he is not POA and he can come there to start POA paperwork. NATALYA let Lilly know that he told SW he is financial POA and can find out bank/financial information within the hour. She also told Wei that they can review the referral, but not sure if he will get approved and even if they try to get him approved, her corporate team will want to know finances before they can accept. She stated Wei then told her that SW sent referral to [facility] but he was hoping for [facility]. Wei told Lilly that he was hoping to get pt in to [facility] and then figure out the rest, but she told Wei that it does not work that way. At this point Lilly at [facility] will send it off for review and let NATALYA know.
--- NOTE | 2024-02-16 14:44 | SWNOTE1 ---
NATAYLA called Wei, no answer.
[2024-02-16 15:08] VITALS: BP 158/72; PULSE 67; TEMP 36.4; O2SAT 96
--- NOTE | 2024-02-16 15:09 | SWNOTE1 ---
NATALYA called Wei again, no answer. NATALYA has sent referral to [facility] and [facility]. Waiting to hear back.
--- NOTE | 2024-02-16 15:13 | SWNOTE1 ---
SW called pt's son Otis, no answer, left message.
--- NOTE | 2024-02-16 15:26 | SWNOTE1 ---
NATALYA received a call from Wei. Wei stated that he spoke to the bank and he has submitted POA paperwork by email to the bank. He stated the bank told him it could be 2-3 days to verify/confirm the POA documentation. NATALYA expressed to pt he needs to call Lilly at [facility] to let her know this. NATALYA not sure if this information will change anything and if Shila can move forward. Wei asked if pt could stay until this is worked out. NATALYA expressed that we can't keep him here and that this may help with allowing [facility] to start precert. Wei will call Lilly. NATALYA then received a call from Lilly and she spoke to Wei. She expressed that Wei did tell her that he is not POA for medical only financial, which is what he told NATALYA as well. [facility] painter [facility] paperhanger apprentice start precert, but even if they get authorization to admit pt, they will likely not be able to accept until the financial part is figured out. This means 2 things; Wei, the son, will be able to use any funds in the bank to pay for mcc for pt after skilled OR pt will not have enough funds to pay and Wei will complete the medicaid questionnaire. NATALYA let Lilly know that NATALYA is going to call [facility] to see if they will do anything different. Lilly did state that she knows the business affairs manager at [facility] and that they will likely want the same thing since pt will need scale reclamation tender care. NATALYA called [facility] and business affairs manager is gone for the day. Nena in admissions is not available at this time.
--- NOTE | 2024-02-16 15:49 | SWNOTE1 ---
NATALYA was able to speak with Nena in admissions. She did state that they do not necessarily need to have a secondary payor, but they will need family to fill out medicaid information and will have to discuss finances with them. She stated they do take pending medicaid, but will need to discuss with family. This is basically the same information that [facility] is trying to acquire. She stated eventually the family will have to give in and complete the paperwork, NATALYA did let her know that the son has submitted POA paperwork to the bank. Nena stated the same things as Lilly at [facility] has communicated, they will need to get the financial part figured out before accepting. At this time NATALYA told Nena that NATALYA is going to have Lilly start precert. SW to reach out to Nena if anything changes. NATALYA called Lilly and let her know to submit precert. NATALYA let her know that [facility] will basically need the same verification.
--- NOTE | 2024-02-16 16:01 | SWNOTE1 ---
Lilly bang [facility] is submitting precert. Nurse is updated.
[2024-02-16 19:38] VITALS: O2SAT 96
[2024-02-16 20:08] VITALS: BP 157/67; PULSE 69; TEMP 36.5; O2SAT 94
[2024-02-16] MEDS: MELOXICAM 7.5 MG TABLET 15 MG PO (21:42)
[2024-02-16] MEDS: ATORVASTATIN CALCIUM 40 MG TABLET PO (21:42)
[2024-02-16] MEDS: QUETIAPINE FUMARATE 25 MG TABLET PO (21:42)
[2024-02-16] MEDS: DONEPEZIL HCL 10 MG TABLET PO (21:42)
[2024-02-16] MEDS: METHOCARBAMOL 500 MG TABLET PO (21:43)
[2024-02-16] MEDS: TRAZODONE HCL 50 MG TABLET 100 MG PO (21:43)
[2024-02-17 03:50] VITALS: BP 154/71; PULSE 69; TEMP 36.5; O2SAT 93
[2024-02-17] MEDS: OMEPRAZOLE 40 MG CAPSULE.DR PO (06:45)
[2024-02-17] MEDS: GABAPENTIN 100 MG CAPSULE 200 MG PO ×2 (06:45→13:25)
[2024-02-17 09:19] VITALS: BP 203/82
[2024-02-17] MEDS: LOSARTAN POTASSIUM 50 MG TABLET 100 MG PO (09:19)
[2024-02-17] MEDS: FLUOXETINE HCL 10 MG CAPSULE PO (09:19)
[2024-02-17] MEDS: FUROSEMIDE 40 MG TABLET PO (09:19)
[2024-02-17 09:20] VITALS: BP 203/82
[2024-02-17] MEDS: FLUOXETINE HCL 20 MG CAPSULE PO (09:20)
[2024-02-17] MEDS: AMLODIPINE BESYLATE 5 MG TABLET PO (09:20)
[2024-02-17] MEDS: QUETIAPINE FUMARATE 25 MG TABLET PO (09:20)
[2024-02-17] MEDS: POTASSIUM CITRATE 10 MEQ ER TABLET 20 MEQ PO (09:20)
[2024-02-17] MEDS: ALLOPURINOL 300 MG TABLET PO (09:20)
[2024-02-17] MEDS: MAGNESIUM OXIDE 400 MG TABLET PO (09:20)
[2024-02-17] MEDS: TAMSULOSIN HCL 0.4 MG CAPSULE PO (09:21)
[2024-02-17] MEDS: ASPIRIN 81 MG TAB.CHEW PO (09:21)
[2024-02-17] MEDS: ENOXAPARIN SODIUM 40 MG/0.4 ML SYRINGE SUBQ (09:21)
--- NOTE | 2024-02-17 09:30 | SWNOTE1 ---
NATALYA spoke with case management and doctor will be discharging patient today no matter what as he has no medical reason for this patient to stay. Pt is medically stable for discharge. NATALYA called pt's son, Wei, and left message. NATALYA called Aye, daughter, and left message and NATALYA called pt's other son, Otis, and left message. NATALYA then received message from Lilly at [facility] to call her KRISTIE. NATALYA spoke to Lilly and she is calling the insurance to try to get authorization and she is going to send an e-mail to her higher ups to plead the pt's case to accept pt if he gets approved without the financial piece for fpc. Lilly voiced that she wants to do what is best for this patient. NATALYA to keep trying to call the pt's children.
--- NOTE | 2024-02-17 09:53 | CM.NOTE ---
Rounds made with Dr. Salas. Potential discharge today.
--- NOTE | 2024-02-17 09:58 | SWNOTE1 ---
NATALYA received a message back from Lilly at [facility] and her higher ups (corporate) told her if she gets authorization from insurance, they can take him without knowing the financial end from the bank. Lilly is going to work on this and let NATALYA know.
--- NOTE | 2024-02-17 10:36 | REH.PTDLY ---
Physical Therapy Daily Note PT Daily Note/Assess Start: 02/17/24 10:30 Freq: Status: Active Protocol: Document 02/17/24 10:30 ARI (Rec[facility] 02[facility]17[facility]24 10[id number] Physical Therapy Daily Note/Assessment Time In 10:18 Time Out 10:30 Subjective Pt in chair upon arrival, done with breakfast. Agreeable to therapy. Denies any current complaints Therapeutic Exercise Minutes (minutes) 4 Therapeutic Exercise Units 0 Therapeutic Exercise Treatment Instructed in B LE seated LAQ, marching, hip add, and hip IR /ER 10x ea with cues and demo needed with exs for pt understanding and larger ROM Therapeutic Activity Minutes (minutes) 8 Therapeutic Activity Units 1 Therapeutic Activity Comments Min A with sit to stand transfer from chair. Gait training with RW CGA 70 feet with directional cues needed. Cues needed as well when returning to sit to chair so pt does not sit too soon. Cues for pt to reach back using both hands as well. Total Therapy Minutes 12 Total Physical Therapy Units 1 Daily Note Summary Pt has no complaints during rx . Pt would benefit from rehab stay upon DC as he needs assistance with sit to stand transfers, CGA with gait for safety, and verbal cues throughout rx due to dementia
--- NOTE | 2024-02-17 10:51 | SWNOTE1 ---
SW sent PT/OT from today and nursing notes from today to Lilly at [facility] for precert.
[2024-02-17 11:47] VITALS: O2SAT 96
--- NOTE | 2024-02-17 12:57 | SWNOTE1 ---
SW reached out to Lilly, no approval yet.
--- NOTE | 2024-02-17 13:08 | SWNOTE1 ---
NATALYA received email from Lilly at [facility] and pt is approved to go. NATALYA let nurse and doctor know. NATALYA called and set up trips for 2:45-3:15. NATALYA already completed PASRR. NATALYA let Lilly know PASRR is done. SW to send dc orders once they are in.
--- NOTE | 2024-02-17 13:16 | SWNOTE1 ---
SW called and left Aye and Wei a voicemail to let them know of their father's discharge today. NATALYA advised they will need to follow up with Lilly at [facility] to get the fpc finances figured out. NATALYA also called pt's son Otis, but he did not answer and NATALYA could not leave voicemail.
[2024-02-17 13:27] VITALS: BP 144/69; PULSE 61; TEMP 36.1; O2SAT 94
--- NOTE | 2024-02-17 13:27 | PM.DS1 ---
DS: Providers Provider Date of admission: 02/15/24 22:50 Primary care physician: JASON CRUZ Admitting clinician: Shaikh Maritza Attending physician on admission: Shaikh Maritza Consults: 02/16/24 Occupational Therapy Eval and Treat Routine Reason for consultation: Therapy Has provider been notified: Yes 02/16/24 08:57 Physical Therapy Eval and Treat Routine Reason for consultation: weakness Attending physician on discharge: Shaikh Maritza Discharging clinician: Shaikh Maritza Anticipated date of discharge: 02/17/24 DS: Diagnosis Discharge Diagnosis (1) Dementia: Qualifiers: Alzheimer's disease onset: late onset Dementia behavioral or psychological symptom: with mood disturbance Dementia severity: moderate Dementia type: Alzheimer's Qualified Code(s): G30.1 - Alzheimer's disease with late onset; F02.B3 - Dementia in other diseases classified elsewhere, moderate, with mood disturbance (2) Depression: Qualifiers: Depression Type: major depressive disorder Major depression recurrence: recurrent Active/Remission status: currently active Major depression episode severity: mild Qualified Code(s): 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, recurrent, mild (3) HLD (hyperlipidemia): Qualifiers: Hyperlipidemia type: unspecified Qualified Code(s): E78.5 - Hyperlipidemia, unspecified (4) Type 2 diabetes mellitus: Qualifiers: Diabetes mellitus manager long term care insulin use: with manager long term care use Diabetes mellitus complication status: with kidney complications Diabetes mellitus complication detail: with chronic kidney disease Chronic kidney disease stage: stage 3 (moderate) Chronic kidney disease stage 3 subtype: stage 3a (GFR 45-59) Qualified Code(s): E11.22 - Type 2 diabetes mellitus with diabetic chronic kidney disease; N18.31 - Chronic kidney disease, stage 3a; Z79.4 - FDC (current) use of insulin (5) HTN (hypertension): Qualifiers: Hypertension type: primary hypertension Qualified Code(s): I10 - Essential (primary) hypertension (6) CKD stage 3a, GFR 45-59 ml/min: DS: Summary Hospital Course Hospital Course: 83 y o patient with hx of dementia, lives with his and is dependent on her for ADLs. She felt recently and fractured her hip and currently unable to take care of him. Patient was sent to ED by his son who stopped by the house at night and noticed that patient was still in his bed since the morning and had only eaten breakfast. Son is unable to take care of him so he called EMS and the patient was brought over to ED. Patient ambulates using a cane. No recent falls and was discharged from rehab 2 weeks ago. Work up in ED was unremarkable and there was no acute/active metabolic/infectious etiology on initial work up. Upon my evaluation, patient seemed to be at his baseline and did not have any active complaints to offer except for forgetfulness which is chronic and due to hx of dementia. Patient was evaluated by PT/OT. Patient accepted for rehab. Stable for discharge Status at Discharge Functional status at discharge: uses cane/walker Overall status at discharge: patient is back to baseline Time Spent with Patient Time attestation: Total time spent providing and/or coordinating discharge services: Time spent: greater than 30 minutes Exam Constitutional Vital Signs, click to edit/add: Last Vital Signs Temp 97.7 F 02/17/24 03:50 Pulse 69 02/17/24 03:50 Resp 18 02/17/24 03:50 BP 203/82 H 02/17/24 09:20 Pulse Ox 96 02/17/24 11:47 O2 Del Method Room Air 02/17/24 11:47 Documenting provider has reviewed patient's vital signs: yes Common normals: no apparent distress and oriented x3 General appearance: cooperative Respiratory Common normals: normal respiratory effort and clear to auscultation bilaterally Effort & inspection: able to speak in complete sentences Auscultation: clear to auscultation bilaterally Cardio Common normals: regular rate, S1 normal heart sound and S2 normal heart sound Rate: regular rate Heart sounds: S1 normal and S2 normal Extremity Common normals: no clubbing, cyanosis or edema Neuro Common normals: oriented x3, moves all extremities and no focal motor deficits Psych Common normals: mental status grossly normal, denies hallucinations, denies homicidal ideation and denies suicidal ideation Discharge Plan Discharge Disposition: [facility] Discharge Medications: Continued allopurinol 300 mg tablet 300 mg PO DAILY docusate sodium 100 mg capsule 100 mg PO DAILY PRN (Reason: constipation) donepezil 10 mg tablet 10 mg PO BEDTIME fluoxetine 20 mg capsule 20 mg PO DAILY gabapentin 100 mg capsule 200 mg PO TID glipizide 10 mg tablet 10 mg PO BID methocarbamol 500 mg tablet 500 mg PO BEDTIME omeprazole 40 mg capsule,delayed release(DR/EC) 40 mg PO .ACB tamsulosin 0.4 mg capsule 0.4 mg PO DAILY furosemide 40 mg tablet 40 mg PO DAILY potassium chloride 20 mEq tablet,ER particles/crystals 20 meq PO DAILY trospium 60 mg capsule,extended release 24hr 60 mg PO DAILY candesartan [Atacand] 32 mg tablet 32 mg PO DAILY Qty: 30 11RF fluoxetine 10 mg capsule 10 mg PO DAILY quetiapine 25 mg tablet 25 mg PO BID trazodone 100 mg tablet 100 mg PO .QHS amlodipine 5 mg tablet 5 mg PO .QD aspirin 81 mg tablet,chewable 1 tab PO .QD atorvastatin 40 mg tablet 40 mg PO .QHS lidocaine 5 % adhesive patch,medicated 1 patch topical QAM Patient Comments: 12 hrs on and 12 hrs off magnesium oxide 400 mg (241.3 mg magnesium) Tablet 400 mg PO BID Qty: 60 11RF Discontinued meloxicam 15 mg tablet 15 mg PO BEDTIME oxybutynin chloride 5 mg tablet extended release 24hr 5 mg PO .QHS Coricidin HBP Cold and Flu 2-325 mg tablet 2 tab PO Q6H cefdinir 300 mg capsule 600 mg PO DAILY Qty: 20 0RF Print Language: [place]ian [employer]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
--- NOTE | 2024-02-17 13:38 | SWNOTE1 ---
NATALYA faxed over dc med rec and dc summary to Lilly at [facility]. NATALYA completed packet and took to med/surge floor. Patient is going skilled to [facility].
--- NOTE | 2024-02-17 14:35 | SWNOTE1 ---
Medicare Outpatient Observation Notice reviewed and discussed with patient's son, Wei over the phone on 02/16/24 at 15:20. Pt's son verbalized understanding and SW signed the form acknowledging that the form was reviewed. Original placed in pt's room and copy placed in patient?s chart.
--- NOTE | 2024-02-17 15:27 | PC.NURSE ---
6Th Grade Teacher spoke with patient's and updated her on plan and time for discharge. TRIPS transported. 6Th Grade Teacher called report to Neisha at [facility]
== END 2024-02-17 14:45 ==
LOC: ER 22:49 → MS 22:54
PROVIDERS: Registered Nurse; Admitting Provider Internal Medicine; Emergency Provider Internal Medicine; PCP Internal Medicine; Visit Provider Internal Medicine
DX: G30.1 Alzheimer's disease with late onset (principal); F02.B3 Dementia in other diseases classified elsewhere, moderate, with mood disturbance; F33.0 Major depressive disorder, recurrent, mild; E78.5 Hyperlipidemia, unspecified; Z79.899 Other long term (current) drug therapy; E11.22 Type 2 diabetes mellitus with diabetic chronic kidney disease; N18.31 Chronic kidney disease, stage 3a; Z79.4 Long term (current) use of insulin; I12.9 Hypertensive chronic kidney disease with stage 1 through stage 4 chronic kidney disease, or unspecified chronic kidney disease
CPT/HCPCS: 36415; 51798; 80053; 81003; 83735; 85025; 94761; 96372; 97161; 97165; 97530; 97535; 99285; G0378; J1650

== ENCOUNTER 2024-04-14 02:07 | Emergency (ER) | payer MEDICARE, SELFPAY ==
[2024-04-14 02:08] VITALS: BP 110/43; PULSE 60; O2SAT 98
--- OUTSIDE RECORDS SUMMARY | 2024-04-14 02:17 | XMS_ITS | CCD ---
Author Organization [facility]iniS[facility]n Care Team Providers Care Catalyst Operator Chief Name Role Phone JUAN PABLO ALANIZ Primary [...] CARMINE, DR YAKELIN Lucas Consulting Unavailabl e REINECK, DR YAKELIN Lucas Admitting Unavailabl e REINECK, DR YAKELIN Lucas Attending Unavailabl e MAYITO ., CAROLIN Consulting Unavailable SHELLIE GIBSON Consulting Unavailable ZHANG ., DR VINH Freeman Attending Unavailable CORBIN, DR GOMEZ Primary Care Unavailable ZHANG ., DR VINH Freeman Admitting Unavailable MANDIE NOBLE Attending Unavailable MANDIE NOBLE Admitting Unavailable OCRBIN, DR GOMEZ Primary Care Unavailable ZHANG ., [...] ., DR VINH Freeman Attending Unavailable CRYSTAL ., SHELLIE Consulting Unavailable CORBIN, DR GOMEZ Primary Care Unavailable CORBIN, DR GOMEZ Primary Care Unavailable HOLCOMB ., DR VINH Freeman Attending Unavailable HOLCOMB ., DR VINH Freeman Consulting Unavailable HOLCOMB ., DR VINH Freeman Admitting Unavailable CORBIN, DR GOMEZ Primary Care Unavailable ROJAS ., [...] CORBIN, DR GOMEZ Primary Care Unavailable AIDE, MANDIE D Admitting Unavailable MANDIE NOBLE Attending Unavailable CORBIN, [...] HOLCOMB ., DR VINH Freeman Consulting Unavailable HOLOCMB ., DR VINH Freeman Admitting Unavailable ALANIZ, DR GOMEZ Primary Care Unavailable LAKSHMIPATHY ., NARENDRANATH Admitting Yasmeen vailable LAKSHMIPATHY ., JUNAIDATH Attending Yasmeen vailable CORBIN, DR GOMEZ Primary [...] Referring Unavailable AHMED, IRFAN Primary Care Unavailable LORIRONALDRI Referring Unavailable AHMED, IRFAN Primary Care Unavailable JUAN DAVID LUI Attending Unavailable AHMED, IRFAN Primary Care Unavailable Juan Pablo Alaniz MD Unavailable Juan Pablo Alaniz MD Primary Care Provider [phone] JUAN PABLO ALANIZ Attending Unavailable JUAN PABLO ALANIZ Attending Unavailable JUAN PABLO ALANIZ Attending Unavailable JUAN PABLO ALANIZ Attending Unavailable TOMMY GABRIEL Attending Unavailable DARCY SANDOVAL Attending Unavailable LORI, DARCY M Attending Unavailable LORI, DARCY M Attending Unavailable LORI, DARCY M Attending Unavailable LORI, DARCY M Attending Unavailable PERLA AGUILA Attending Unavailable OrMarianela lugo Attending Unavailable CAIT DUNHAM Attending Unavailable Orzefausto Marianela X Attending Unavailable OrzeMarianela lambert X Attending Unavailable Unavailable Primary Care Provider Unavailabl e Allergies Allergy Classification Reported Allergen(s) Allergy Type Date of Onset Reaction(s) Facility (11 sources) Penicillin; Translations: [penicillin] Drug Allergy 2 [facility] (3 sources) Penicillins; Translations: [PENICILLINS] Drug allergy (disorder) 4 [facility] (17 sources) Penicillin G Drug Allergy 3 Unknown [facility] Healthcare Work Phone: (11 sources) Codeine Drug Allergy 4 [facility] (4 sources) Penicillins Propensity to adverse reactions to drug 4 [facility] Medications Current Medications Medication Drug Class(es) Dates Sig (Normalized) Sig (Original) acetaminophen 325 mg / chlorpheniramine maleate 2 mg oral tablet (3 sources) Histamine-1 Receptor Antagonist Start: 01-29-2024 End: 02-12-2024 take 2-325 mg by mouth every six hours Chlorpheniramine-A cetaminophen (CORICIDIN) 2-325 MG tablet Indications: Acute cough Take 2 tablets by mouth every 6 (six) hours for 14 days 112 tablet 01/29/2024 02/12/2024 Active albuterol 0.83 mg/ml inhalation solution (1 source) beta2-Adrenergic Agonist albuterol (2.5 MG/3ML) 0.083% nebulizer solution Take by nebulization every 6 (six) hours if needed for wheezing Active allopurinol 300 mg oral tablet (20 sources) Xanthine Oxidase Inhibitor Start: 03-02-2024 take 1 tablet by mouth once daily allopurinol (Zyloprim) 300 MG tablet Indications: Essential hypertension (CMS/HCC) TAKE ONE TABLET BY MOUTH DAILY 28 tablet 11 03/02/2024 Active Start: 01-17-2021 take 1 tablet by shannon th once daily allopurinol (Zyloprim) 300 MG tablet Indications: Essential hypertension (CMS/HCC) TAKE ONE TABLET BY MOUTH DAILY 100 tablet 3 03/13/2023 Active amLODIPine 5 mg oral tablet (11 sources) Dihydropyridine Calcium Channel Levi take 1 tablet by mouth once daily for hypertension amLODIPine (Norvasc) 5 MG tablet TAKE ONE TABLET BY MOUTH DAILY FOR HYPERTENSION Active aspirin 81 mg delayed release oral tablet (11 sources) Platelet Aggregation Inhibitor, Nonsteroidal Anti-inflammatory Drug take 1 tablet by mouth once daily aspirin 81 MG EC tablet Take 1 tablet by mouth Daily Active atorvastatin 40 mg oral tablet (11 sources) HMG-CoA Reductase Inhibitor take 1 capsule by mouth at bedtime for hyperlipidemia atorvastatin (Lipitor) 40 MG tablet TAKE ONE CAPSULE BY MOUTH AT BEDTIME FOR CHOLESTEROL CONTROL Active candesartan cilexetil 32 mg oral tablet (17 sources) Angiotensin 2 Receptor Levi Start: 2023 take 1 tablet by mouth once daily candesartan (Atacand) 32 MG tablet Take 32 mg by mouth Daily 10/07/2023 Active cefdinir 300 mg oral capsule (1 source) Cephalosporin Antibacterial cefdinir (Omnicef) 300 MG capsule Take 600 mg by mouth Daily Active dicyclomine hydrochloride 20 mg oral tablet (6 sources) Anticholinergic Start: 2020 take 1 mg by mouth four times daily dicyclomine 20 mg Tab mg tab(s), Oral, QID, Refills(s) 0 Start Date: 01/17/21 Status: Ordered docusate sodium 100 mg oral capsule (20 sources) Start: 2023 take 1 capsule by mouth twice daily for constipation docusate sodium (Colace) 100 MG capsule Indications: Constipation, unspecified constipation type TAKE ONE CAPSULE BY MOUTH TWICE A DAY FOR CONSTIPATION 56 capsule 11 02/18/2024 Active Start: 01-16-2023 take 1 capsule by mo [facility] once daily as needed docusate sodium (Colace) [...] Active Start: 11-28-2022 take 1 capsule by [facility] once daily FLUoxetine (PROzac) 20 MG capsule Indications: Seasonal affective disorder (CMS/HCC) TAKE ONE CAPSULE BY MOUTH ONCE DAILY 28 capsule 11 11/28/2022 Active furosemide 40 mg oral tablet (20 sources) Loop Diuretic Start: 11-13-2023 End: 11-12-2024 take 1 tablet by mouth once daily furosemide (Lasix) 40 MG tablet Indications: Bilateral lower extremity edema Take 1 tablet (40 mg) by mouth Daily 30 tablet 11 11/13/2023 11/12/2024 Active Start: 06-19-2023 End: 11-13-2023 take 1 tablet by mouth once daily furosemide (Lasix) 20 MG tablet Indications: Bilateral lower extremity edema Take 1 tablet (20 mg) by mouth Daily 30 tablet 11 11/13/2023 11/13/2023 Discontinued (Ineffective) gabapentin 100 mg oral capsule (20 sources) [...] mg oral tablet (20 sources) Sulfonylurea Start: 03-02-2024 take 1 tablet by mouth twice daily glipiZIDE (Glucotrol) 10 MG tablet Indications: Type 2 diabetes mellitus with other specified complication, without long-term current use of insulin (CMS/HCC) TAKE ONE TABLET BY MOUTH TWICE A DAY 56 tablet 11 03/02/2024 Active Start: 03-13-2023 take 1 tablet by shannon twice daily glipiZIDE (Glucotrol) 10 MG tablet [...] 12/08/2023 Active lidocaine 0.05 mg/mg medicated patch (17 sources) Antiarrhythmic, Amide Local Anesthetic Start: 01-21-2024 [...] .. 30 patch 11 01/13/2023 01/13/2024 Active Magnesium (1 source) Magnesium 400 MG capsule Take by mouth 2 (two) times a day Active meloxicam 15 mg oral tablet (17 sources) Nonsteroidal Anti-inflammatory Drug Start: 10-23-19 24 take 1 tablet by mouth at bedtime meloxicam (Mobic) 15 MG tablet Indications: Spinal stenosis of lumbar region, unspecified whether neurogenic claudication present TAKE ONE TABLET BY MOUTH AT BEDTIME 28 tablet 11 10/23/2023 Active methocarbamol 500 mg oral tablet (17 sources) Muscle Relaxant Start: 12-30-19 24 take 1 tablet by mouth once daily [...] omeprazole 40 mg delayed release oral capsule (17 sources) Proton Pump Inhibitor Start: 12-30-2023 take [...] chloride 5 mg extended release oral tablet (11 sources) Cholinergic Muscarinic Antagonist take 1 tablet by mouth once daily oxybutynin XL (Ditropan-XL) 5 MG 24 hr tablet Take 10 mg by mouth Daily Active take 1 tablet by shannon th every twenty-four hours at bedtime oxybutynin XL (Ditropan-XL) 5 MG 24 hr tablet TAKE ONE TABLET BY MOUTH AT BEDTIME FOR OVERACTIVE BLADDER Active microencapsulated potassium chloride 20 meq extended release oral tablet (16 sources) Start: 11-13-2023 End: 11-12-2024 take 1 tablet by mouth once daily potassium chloride CR (Klor-Con M20) 20 MEQ ER tablet Indications: Hypokalemia Take 1 tablet (20 mEq) by mouth Daily Do not crush or chew. 30 tablet 11/13/2023 11/12/2024 Active QUEtiapine 25 mg oral tablet (11 sources) Atypical Antipsychotic take 1 tablet by mouth twice daily QUEtiapine (SEROquel) 25 MG tablet TAKE ONE TABLET BY MOUTH TWICE A DAY FOR DELUSIONS Active solifenacin succinate 10 mg oral tablet (20 sources) Cholinergic Muscarinic Antagonist Start: 10-01-2023 take 1 tablet by mouth once daily solifenacin 10 mg Tab 10 mg = 1 tab(s), Oral, Daily, # 30 tab(s), Refills(s) 11, Pharmacy: [facility] 1155, 167, cm, 09/16/22 15:10:00 EDT, Height/Length Dosing, 120, kg, 09/16/22 15:10:00 EDT, Weight Dosing Start Date: 10/01/23 Status: Ordered Start: 09-16-2022 End: 09-11-2023 take 1 tablet by mouth once daily Vesicare 10 mg Tab 10 mg = 1 tab(s), Oral, Daily, X 30 day(s), # 30 tab(s), Refills(s) 11, Pharmacy: [facility] 1155, 167, cm, 09/16/22 15:10:00 EDT, Height/Length Dosing, 120, kg, 09/16/22 15:10:00 EDT, Weight Dosing Start Date: 09/16/22 Stop Date: 09/11/23 Status: Ordered Start: 04-26-2022 [facility] Vesicare 5 mg Tab 5 mg = 1 tab(s), Oral, Daily, # 30 tab(s), Refills(s) 11, Pharmacy: [facility] 1155, 174, cm, 12/03/21 13:40:00 EDT, Height/Length Dosing, 112, kg, 12/03/21 13:40:00 EDT, Weight Dosing Start Date: 04/26/22 Status: Ordered tamsulosin hydrochloride 0.4 mg oral capsule (20 sources) alpha-Adrenergic Levi Start: 10-01-2023 take 1 capsule by mouth once daily Flomax 0.4 mg Cap 0.4 mg = 1 cap(s), Oral, Daily, # 30 cap(s), Refills(s) 11, Pharmacy: [facility] 1155, 167, cm, 09/16/22 15:10:00 EDT, Height/Length Dosing, 120, kg, 09/16/22 15:10:00 EDT, Weight Dosing Start Date: 10/01/23 Status: Ordered Start: 10-31-2022 take 1 capsule by mo [facility] every twenty-four hours in the morning tamsulosin [...] # 30 cap(s), Refills(s) 3, [facility]acy: [facility], 174, cm, 07/17/20 5:39:00 EDT, Height/Length [...] Ordered traZODone hydrochloride 100 mg oral tablet (11 sources) Serotonin Reuptake Inhibitor take 1 capsule [...] Daily, # 30 tab(s), Refills(s) 3, Pharmacy: [facility] 1155, 167, cm, 11/11/23 13:29:00 EDT, Height/Length [...] mg / hydroCHLOROthiazide 25 mg oral tablet (8 sources) Thiazide Diuretic, Angiotensin 2 Receptor Levi [...] UNSPECIFIED] Onset: 07-31-2022 Episodic Chronic kidney disease (13 sources) Chronic kidney disease stage 3A ; Translations: [Stage 3a chronic kidney disease (HCC)] Onset: 11-21-2023 12-02-2023 Chronic Chronic obstructive pulmonary disease and bronchiectasis (1 source) Chronic obstructive pulmonary disease, unspecified; Translations: [COPD UNSPECIFIED] Onset: 03-06-2022 Chronic Conduction disorders (20 sources) Other specified heart block; Translations: [Presence of cardiac pacemaker] Onset: 11-15-2023 Chronic Coronary atherosclerosis and other heart disease (15 sources) Atherosclerotic heart disease of [place] coronary artery with unspecified angina pectoris; Translations: [Coronary arteriosclerosis] Onset: 11-15-2023 Chronic Delirium, dementia, and amnestic and other cognitive disorders (9 sources) Dementia; Translations: [Unspecified dementia without behavioral disturbance] Onset: 02-15-2024 02-15-2024 Chronic Diabetes mellitus with complications (20 sources) Type 2 diabetes mellitus with diabetic neuropathy, unspecified; Translations: [Type 2 diabetes mellitus with other circulatory complications] Onset: 09-04-2016 Resolved: 11-19-2022 11-19-2022 Chronic Diabetes mellitus without complication (20 sources) Diabetes mellitus; Translations: [Type 2 diabetes mellitus without complications] Onset: 07-31-2022 07-17-2020 Chronic Disorders of lipid metabolism (5 sources) Hyperlipidemia; Translations: [Other hyperlipidemia] Onset: 02-20-2024 02-20-2024 Chronic Diverticulosis and diverticulitis (20 sources) Diverticulitis; Translations: [Diverticulosis of sigmoid colon] Onset: 10-07-2022 01-17-2021 Chronic E Codes: Fall (8 sources) Fall; Translations: [Unspecified fall, subsequent encounter] Onset: 02-15-2024 02-15-2024 Episodic Esophageal disorders (18 sources) Gastro-esophageal reflux disease without esophagitis; Translations: [Gastroesophageal reflux disease without esophagitis] Onset: 12-11-2021 10-07-2022 Chronic Essential hypertension (20 sources) Hypertensive disorder; Translations: [Essential (primary) hypertension] Onset: 03-06-2022 01-17-2021 Chronic Fluid and electrolyte disorders (20 sources) Hypernatremia; Translations: [Hyperosmolality and hypernatremia] Onset: 11-21-2023 12-02-2023 Episodic Gastritis and duodenitis (17 sources) Atrophic gastritis; 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] Onset: 10-07-2022 10-07-2022 Chronic Genitourinary symptoms and ill-defined conditions (14 sources) Urge incontinence; Translations: [Urge incontinence of urine] Onset: 12-03-2021 Chronic Genitourinary symptoms and ill-defined conditions (20 sources) Increased frequency of urination; Translations: [Frequency of micturition] Onset: 09-03-2021 Episodic Hyperplasia of prostate (20 sources) Benign prostatic hypertrophy with outflow obstruction; Translations: [Benign prostatic hyperplasia with lower urinary tract symptoms] Onset: 09-03-2021 Chronic Mood disorders (20 sources) Seasonal affective disorder; Translations: [Other recurrent depressive disorders] Onset: 10-07-2022 10-07-2022 Chronic Other aftercare (1 source) Other watermelon inspector (current) drug therapy; Translations: [OTH SEASONAL PACKAGE HANDLER CURRENT DRUG THERAPY] Onset: 07-31-2022 Episodic Other aftercare (1 source) longterm (current) use of oral hypoglycemic drugs; Translations: [SEASONAL PACKAGE HANDLER USE ORAL HYPOGLYCEMIC DX] Onset: 07-31-2022 Episodic Other connective tissue disease (4 sources) Other muscle spasm; Translations: [OTHER MUSCLE SPASM] Onset: 05-23-2022 Episodic Other diseases of bladder and urethra (2 sources) Other specified disorders of bladder; Translations: [Other specified disorders of bladder] Onset: 11-15-2023 Chronic Other diseases of bladder and urethra (17 sources) Overactive bladder; Translations: [Overactive bladder] Onset: [...] cough] 12-25-2023 Episodic Other male genital disorders (17 sources) Secondary erectile dysfunction; Translations: [Male erectile dysfunction, unspecified] Onset: 09-30-2017 11-19-2022 Chronic Other nervous system disorders (9 sources) Neuropathy 01-17-2021 Chronic Other nervous system disorders (1 source) Other chronic pain; Translations: [OTHER CHRONIC PAIN] Onset: 04-18-2022 Chronic Other nervous system disorders (13 sources) Metabolic encephalopathy; Translations: [Metabolic encephalopathy] Onset: 11-21-2023 12-02-2023 Chronic Other nutritional; endocrine; and metabolic disorders (13 sources) Obesity caused by energy imbalance; Translations: [Other obesity due to excess calories] Onset: 11-21-2023 12-02-2023 Chronic Other skin disorders (5 sources) Nail dystrophy; Translations: [NAIL DYSTROPHY] Onset: 04-30-2022 Episodic Other upper respiratory infections (7 sources) Acute laryngitis; Translations: [Acute upper respiratory infection, unspecified] Onset: 03-03-2022 Episodic Pneumonia (except that caused by tuberculosis or sexually transmitted disease) (6 sources) Pneumonia; Translations: [Pneumonia, unspecified organism] Onset: 02-15-2024 02-15-2024 Episodic Residual codes; unclassified (9 sources) Amnesia [...] to d ocumentation in Social History. Unclassified (9 sources) Finding of sensation of [...] OF COVID-19] Onset: 03-06-2022 Unclassified (1 source) LONG-TERM INJECT NONINSULN ANTIDIAB; Translations: [SEASONAL PACKAGE HANDLER INJECT NONINSULN ANTIDIAB] Onset: 03-02-2022 Unclassified (2 sources) Admission Requirement; Translations: [Admission Requirement] Onset: 11-30-2023 Past or Other Problems Problem Classification Problem Date Documented Da te Episodic/Chronic Biliary tract disease (17 sources) Cholelithiasis without obstruction; Translations: [Calculus of gallbladder without cholecystitis without obstruction] Onset: 10-07-2022 10-07-2022 Episodic Mood disorders (17 sources) Mood disorders Onset: 04-23-2023 04-23-2023 Mycoses (18 sources) Tinea unguium; Translations: [Onychomycosis due to dermatophyte ] Onset: 11-29-2021 Episodic Other aftercare (17 sources) Long-term current use of insulin; Translations: [watermelon inspector (current) use of insulin] Onset: 07-23-2017 Resolved: 04-23-2023 04-23-2023 Episodic Other connective tissue disease (20 sources) Calcaneal spur; Translations: [Calcaneal spur, unspecified foot] Onset: 09-04-2016 01-17-2021 Episodic Other connective tissue disease (1 source) Muscle wasting and atrophy, not elsewhere classified, unspecified site; Translations: [MUSCLE WASTING ATROPHY NEC UNS SITE] Onset: 10-04-2021 Episodic Other connective tissue disease (13 sources) Pain in toe; Translations: [Pain in unspecified toe(s)] Onset: 12-02-2023 12-02-2023 Episodic Other connective tissue disease (13 sources) Swelling of bilateral feet; Translations: [Other specified soft tissue disorders] Onset: 12-02-2023 12-02-2023 Episodic Other diseases of veins and lymphatics (1 source) Venous insufficiency (chronic) (peripheral); Translations: [VENOUS INSUFF CHRONIC PERIPHERAL] Onset: 12-11-2021 Episodic Other gastrointestinal disorders (17 sources) Constipation; Translations: [Constipation, unspecified] Onset: 01-31-2020 11-19-2022 Episodic Other lower respiratory disease (20 sources) Nodule of lung; Translations: [Solitary pulmonary nodule] Onset: 10-07-2022 01-17-2021 Episodic Other nervous system disorders (17 sources) Impaired cognition; Translations: [Other symptoms and signs involving cognitive functions and awareness] Onset: 10-07-2022 10-07-2022 Episodic Other nervous system disorders (17 sources) Ataxic gait; Translations: [Ataxic gait] Onset: [...] EDEMA] Onset: 04-30-2022 Episodic Residual codes; unclassified (17 sources) Insomnia; Translations: [Insomnia, unspecified] Onset: 10-07-2022 10-07-2022 Episodic Residual codes; unclassified (20 sources) Localized edema; Translations: [Localized edema] Onset: 10-07-2022 10-07-2022 Episodic Residual codes; unclassified (2 sources) Bilateral lower limb edema; Translations: [Localized edema] 11-13-2023 Episodic Skin and subcutaneous tissue infections (6 sources) Cellulitis of left lower limb; Translations: [Cellulitis of left lower limb] Onset: 02-15-2024 Resolved: 02-29-2024 02-15-2024 Episodic Spondylosis; intervertebral disc disorders; other back problems (20 sources) Muscle spasm of back; Translations: [Intervertebral disc disorders with radiculopathy, lumbar region] Onset: 09-15-2021 Episodic Syncope (15 sources) Syncope and collapse; Translations: [Syncope and collapse] Onset: 11-15-2023 Episodic Unclassified (1 source) COUGH, UNSPECIFIED; Translations: [COUGH, UNSPECIFIED] Onset: 07-26-2022 Unclassified (1 source) LOW BACK PAIN, UNSPECIFIED; Translations: [LOW BACK PAIN, UNSPECIFIED] Onset: 01-22-2022 Results Test Name Value Interpretation Reference Range Facility BLOOD CULTURE 1on 02-06-2024 BLOOD CULTURE 1 Blood Culture 1 NG5D NO GROWTH AT 5 DAYS.^NO GROWTH AT 5 DAYS. [facility] LEFT AC [facility] BLOOD CULTURE 2on 02-06-2024 BLOOD CULTURE 2 Blood Culture 2 NG5D NO GROWTH AT 5 DAYS.^NO GROWTH AT 5 DAYS. [facility]2 [facility] No Panel Informationon 02-05 [facility] ALL BASIC METABOLIC PANELon 12-05-2023 Anion gap [Moles/Vol] 9 mmol/L 9 - 16 mmol/L [facility] Calcium [Mass/Vol] 8.5 mg/dL Low 8.6 - 10. 4 mg/dL [facility] Chloride [Moles/Vol] 108 mmol/L High 98 - 107 mmol/L [facility] CO2 [Moles/Vol] 26 mmol/L 20 - 31 mmol/L [facility] Creatinine [Mass/Vol] 1.6 mg/dL High 0.70 - 1.20 mg/dL [facility] Glucose [Mass/Vol] 66 mg/dL Low 74 - 99 mg/dL [facility] Interpretation and review of laboratory results [facility] 9 - 20 [facility] MHPT EGFR 41 Low - PINF [facility] Comment on above: These results are not intended for use [...] following therapy that affects renal tubular secretion. Potassium [Moles/Vol] 4.3 mmol/L 3.7 - 5.3 mmol/L [facility] Sodium [Moles/Vol] 143 mmol/L 136 - 145 mmol/L [facility] Urea nitrogen [Mass/Vol] 32 mg/dL High 8 - 23 mg/dL [facility] Original Ordering Provider: DARCY SANDOVAL [facility] Basic Metabolic Profon 12-04 Anion gap [Moles/Vol] 9 mmol/L Normal -16 [facility] Comment on above: Performed By: #### B MP #### [facility] [address] [place] [address] Mail Courier: Eliud Leonard MD BUN/CRE Ratio 20 Normal - [facility] Comment on above: Performed By: #### B MP #### [facility] [address] [place] [address] Mail Courier: Eliud Leonard MD Calcium [Mass/Vol] 8.5 mg/dL Low 8.6-10.4 [facility] Comment on above: Performed By: #### B MP #### [facility] [address] [place] [address] Mail Courier: Eliud Leonard MD Chloride [Moles/Vol] 108 mmol/L High 98-107 [facility] Comment on above: Performed By: #### B MP #### [facility] [address] [place] [address] Mail Courier: Eliud Leonard MD CO2 [Moles/Vol] 26 mmol/L Normal 20-31 [facility] Comment on above: Performed By: #### B MP #### [facility] [address] [place] [address] Mail Courier: Eliud Leonard MD Creatinine [Mass/Vol] 1.6 mg/dL High 0.70-1.20 [facility] Comment on above: Performed By: #### B MP #### [facility] [address] [place] [address] Mail Courier: Eliud Leonard MD GFR/1.73 sq M.predicted among non-blacks MDRD (S/P/Bld) [Vol rate/Area] 41 mL/min/{1.73_m2} Low >60 [facility] Comment on above: Result Comment: These [...] MP #### [facility] [address] [place] [address] [place] [address] Mail Courier: Eliud Leonard MD Glucose [Mass/Vol] 66 mg/dL Low 74-99 [facility] Comment on above: Performed By: #### B MP #### [facility] [address] [place] [address] Mail Courier: Eliud Leonard MD Potassium [Moles/Vol] 4.3 mmol/L Normal 3.7-5.3 [facility] Comment on above: Performed By: #### B MP #### [facility] [address] [place] [address] Mail Courier: Eliud Leonard MD Sodium [Moles/Vol] 143 mmol/L Normal 136-145 [facility] Comment on above: Performed By: #### B MP #### [facility] [address] [place] [address] Mail Courier: Eliud Leonard MD Urea nitrogen [Mass/Vol] 32 mg/dL High 8-23 [facility] Comment on above: Performed By: #### B MP #### [facility] [address] [place] [address] Mail Courier: Eliud Leonard MD Cult,Urineon 12-01-2023 Cult,Urine Specimen Description .CLEAN CATCH URINE Culture NO SIGNIFICANT GROWTH Report Status FINAL 12/01/2023 Normal [facility] Comment on above: Performed By: #### U RC #### [address] [id number] Mail Courier: Darien [place] MD [facility] [address] [place] [address] [place] [address] Mail Courier: Elidu Leonard MD ALL URINALYSISon 11-30-2023 MHPT BILIRUBIN, SEMIQT,UR Negative NEG [facility] BLOOD, URINE Negative NEG [facility] CLARITY, URINE Clear CLEAR [facility] COLOR Yellow YEL [facility] GLUCOSE,SEMI-QNT,U R Negative NEG mg/dL [facility] KETONES, URINE Negative NEG mg/dL [facility] LEUKOCYTE ESTERASE Negative NEG [facility] NITRITE,UR Negative NEG [facility] PH,UR 6.0 5.0 - 9.0 [facility] PROTEIN, SEMI-QNT,UR Negative NEG mg/dL [facility] SPEC. GRAVITY,UR 1.020 1.010 - 1.020 [facility] UROBILINOGEN,UR Normal 0.0 - 1.0 EU/dL [facility] Original Ordering Provider: RENE Burr MD [facility] Urinalysis, Routineon 2023 Bilirubin, SemiQt,Ur Negative Normal NEG [facility] Comment on above: Performed By: #### U A #### [facility] [address] [place], [place] [id number] Mail Courier: Eliud Leonard MD Blood, Urine Negative Normal NEG [facility] Comment on above: Performed By: #### U A #### [facility] [address] [place], [place] [phone] Mail Courier: Eliud Leonard MD Clarity (U) Clear Normal CLEAR [facility] Comment on above: Performed By: #### U A #### [facility] [address] [place] [address] Dr. [place], [place] [phone] Mail Courier: Eliud Leonard MD Color (U) Yellow Normal YEL [facility] Comment on above: Performed By: #### U A #### [facility] [address] [place] [address] Dr. [place], [place] [phone] Mail Courier: Eliud Leonard MD Glucose Ql (U) Negative Normal NEG [facility] Comment on above: Performed By: #### U A #### [facility] [address] [place] [address] [place], [place] [phone] Mail Courier: Eliud Leonard MD Ketones Ql (U) Negative Normal NEG [facility] Comment on above: Performed By: #### U A #### [facility] [address] [place] [address] Dr. [place], [facility] Mail Courier: Eliud Leonard MD Leukocyte esterase Test strip Ql (U) Negative Normal NEG [facility] Comment on above: Performed By: #### U A #### [facility] [address] [place] [address] Dr[place], [place] [phone] Mail Courier: Eliud Leonard MD Nitrite,Ur Negative Normal NEG [facility] Comment on above: Performed By: #### U A #### [facility] [address] [place] [address] [place] [address] Mail Courier: Eliud Leonard MD PH,Ur 6.0 Normal 5.0-9.0 [facility] Comment on above: Performed By: #### U A #### [facility] [address] [place] [address] [place] [address] Mail Courier: Eliud Leonard MD Protein Ql (U) Negative Normal NEG [facility] Comment on above: Performed By: #### U A #### [facility] [address] [place] [address] Dr[place], [place] [phone] Mail Courier: Eliud Leonard MD Spec. Thermal,Ur 1.020 Normal 1.010-1.020 [facility] Comment on above: Performed By: #### U A #### [address] [place] [address] Mail Courier: Eliud Leonard MD Urobilinogen,Ur Normal Normal 0.0-1.0 [facility] Comment on above: Performed By: #### U A #### [address] [place], [place] [phone] Mail Courier: Eliud Leonard MD CT CERVICAL SPINE WO [...] midline. The ventricles and peripheral sulci are xate-ps-[id number] dilated. There is decreased attenuation in the [...] Deacon Justice MD 11/28/23 Final result Normal [facility] CT HEAD WO CONTRASTon 2023 CT [...] midline. The ventricles and peripheral sulci are bpgg-ou-vosnqgyron dilated. There is decreased attenuation in the [...] Deacon Justice MD 11/28/23 Final result Normal [facility] 30on 11-22-2023 30 The patient is [...] and maintained or improved Outcome: Progressing Normal [facility] BASIC METABOLIC PANELon 08- Anion gap [Moles/Vol] 10 mmol/L Normal 7-20 [facility] Comment on above: Performed By: #### L [id number] ####[facility] ([facility])[address] [place] [address] Calcium [Mass/Vol] 8.0 mg/dL Low 8.6-10.3 [facility] Comment on above: Performed By: #### L [id number] ####[facility] [place] [address] Chloride [Moles/Vol] 111 mmol/L High 98-107 [facility] Comment on above: Performed By: #### L [id number] ####[facility] ([facility])[address] [place] [address] CO2 [Moles/Vol] 29 mmol/L Normal 21-31 [facility] Comment on above: Performed By: #### L [id number] ####[facility] [place] [address] Creatinine [Mass/Vol] 1.36 mg/dL High 0.70-1.30 [facility] Comment on above: Performed By: #### L [id number] ####[facility] ([facility])[address] [place] [address] GLOMERULAR FILTRATION RATE ML/MIN/1.73 SQ M.PREDICTED 51.0 mL/min/1.73m*2 Low >60.0 [facility] Comment on above: Result Comment: [facility]???s estimated glomerular filtration rate (eGFR) [...] of individuals. Performed By: #### L [id number] ####[facility] ([facility])[address] [place] [address] Glucose [Mass/Vol] 150 mg/dL High 70-100 [facility] Comment on above: Performed By: #### L [id number] ####[facility] ([facility])[address] [place] [address] Potassium [Moles/Vol] 3.3 mmol/L Low 3.5-5.1 [facility] Comment on above: Performed By: #### L [id number] ####[facility] ([facility])[address] [place] [address] Sodium [Moles/Vol] 147 mmol/L High 136-145 [facility] Comment on above: Performed By: #### L [id number] ####[facility] ([facility])[address] [place] [address] Urea nitrogen [Mass/Vol] 25 mg/dL Normal 7-25 [facility] Comment on above: Performed By: #### L [id number] ####[facility] ([facility])[address] [place] [address] UREA NITROGEN/CREATININ E (MASS RATIO) IN SER/PLAS 18.4 Normal [facility] Comment on above: Performed By: #### L [id number] ####[facility] ([facility])[address] [place] [address] CBC WITH AUTO DIFFERENTIALon 11-22-2023 Basophils (Bld) [#/Vol] 0.06 10*3/uL Normal 0.00-0.20 [facility] Comment on above: Performed By: #### L [id number] ####[facility] [place] [address] Basophils/100 WBC (Bld) 0.7 % Normal 0.0-1.0 [facility] Comment on above: Performed By: #### L [id number] ####[facility] [place] [address] Eosinophils (Bld) [#/Vol] 0.37 10*3/uL Normal 0.00-0.50 [facility] Comment on above: Performed By: #### L [id number] ####[facility] ([facility])[address] [place] [address] Eosinophils/100 WBC (Bld) 4.2 % Normal 0.0-6.0 [facility] Comment on above: Performed By: #### L [id number] ####[facility] ([facility])[address] [place] [address] Erythrocyte distribution width (RBC) [Ratio] 15.2 % High 11.5-15.0 [facility] Comment on above: Performed By: #### L [id number] ####[facility] [place] [address] ERYTHROCYTE MEAN CORPUSCULAR HEMOGLOBIN CONCENTRATION (G/DL) BY AUTOMATED 32.6 g/dL Normal 32.0-35.0 [facility] Comment on above: Performed By: #### L [id number] ####[facility] [place] [address] Hematocrit (Bld) [Volume fraction] 38.3 % Low 39.0-55.0 [facility] Comment on above: Performed By: #### L [id number] ####[facility] [place] [address] Hemoglobin (Bld) [Mass/Vol] 12.5 g/dL Low 13.0-17.0 [facility] Comment on above: Performed By: #### L [id number] ####[facility] ([facility])[address] [place] [address] Immature granulocytes (Bld) [#/Vol] 0.15 10*3/uL Normal 0.00-0.20 [facility] Comment on above: Performed By: #### L [id number] ####[facility] ([facility])[address] [place] [address] Immature granulocytes/100 WBC (Bld) 1.7 % High 0.0-1.0 [facility] Comment on above: Performed By: #### L [id number] ####[facility] ([facility])[address] [place] [address] Lymphocytes (Bld) [#/Vol] 1.19 10*3/uL Low 1.20-4.00 [facility] Comment on above: Performed By: #### L [id number] ####[facility] ([facility])[address] [place] [address] Lymphocytes/100 WBC (Bld) 13.6 % Low 20.0-45.0 [facility] Comment on above: Performed By: #### L [id number] ####[facility] ([facility])[address] [place] [address] MCH (RBC) [Entitic mass] 32.4 pg Normal 27.0-33.0 [facility] Comment on above: Performed By: #### L [id number] ####[facility] ([facility])[address] [place] [address] MCV (RBC) [Entitic vol] 99.2 fL High 82.0-98.0 [facility] Comment on above: Performed By: #### L [id number] ####[facility] ([facility])[address] [place] [address] Monocytes (Bld) [#/Vol] 0.93 10*3/uL Normal 0.10-1.00 [facility] Comment on above: Performed By: #### L [id number] ####[facility] [place] [address] Monocytes/100 WBC (Bld) 10.6 % Normal 5.0-12.0 [facility] Comment on above: Performed By: #### L [id number] ####[facility] [place] [address] Neutrophils (Bld) [#/Vol] 6.06 10*3/uL Normal 1.60-7.60 [facility] Comment on above: Performed By: #### L [id number] ####[facility] [place] [address] Neutrophils/100 WBC (Bld) 69.2 % Normal 40.0-72.0 [facility] Comment on above: Performed By: #### L [id number] ####[facility] ([facility])[address] [place] [address] NRBC (PER 100 WBCS) BY AUTOMATED COUNT 0.0 % Normal 0 [facility] Comment on above: Performed By: #### L [id number] ####[facility] ([facility])[address] [place] [address] PLATELETS (10*3/UL) IN BLOOD AUTOMATED COUNT 167 10*3/uL Normal 150-400 [facility] Comment on above: Performed By: #### L [id number] ####[facility] ([facility])[address] [place] [address] RBC (Bld) [#/Vol] 3.86 10*6/uL Low 4.20-5.70 [facility] Comment on above: Performed By: #### L [id number] ####[facility] ([facility])[address] [place] [address] WBC (Bld) [#/Vol] 8.76 10*3/uL Normal 4.00-10.60 [facility] Comment on above: Performed By: #### L [id number] ####[facility] [place] [address] 30on 11-20-2023 30 The patient is Moderately Stable - Low risk of patient condition declining or worsening The patient's goals for the shift include rest/comfort The clinical goals for the shift include VSS Problem: Pain - Adult Goal: Verbalizes/displays adequate comfort level or baseline comfort level Outcome: Progressing Problem: Safety - Adult Goal: Free from fall injury Outcome: Progressing Normal [facility] 30 The patient is Moderately [...] and maintained or improved Outcome: Progressing Normal [facility] BASIC METABOLIC PANELon 10-24 Anion gap [Moles/Vol] 9 mmol/L Normal 7-20 [facility] Comment on above: Performed By: #### L [id number] ####[facility] ([facility])[address] [place] [address] Calcium [Mass/Vol] 8.0 mg/dL Low 8.6-10.3 [facility] Comment on above: Performed By: #### L [id number] ####[facility] ([facility])[address] [place] [address] Chloride [Moles/Vol] 113 mmol/L High 98-107 [facility] Comment on above: Performed By: #### L [id number] ####[facility] ([facility])[address] [place] [address] CO2 [Moles/Vol] 27 mmol/L Normal 21-31 [facility] Comment on above: Performed By: #### L [id number] ####[facility] ([facility])[address] [place] [address] Creatinine [Mass/Vol] 1.47 mg/dL High 0.70-1.30 [facility] Comment on above: Performed By: #### L [id number] ####[facility] ([facility])[address] [place] [address] GLOMERULAR FILTRATION RATE ML/MIN/1.73 SQ M.PREDICTED 46.5 mL/min/1.73m*2 Low >60.0 [facility] Comment on above: Result Comment: [facility]???s estimated glomerular filtration rate (eGFR) [...] of individuals. Performed By: #### L [id number] ####[facility] ([facility])[address] [place] [address] Glucose [Mass/Vol] 135 mg/dL High 70-100 [facility] Comment on above: Performed By: #### L [id number] ####[facility] ([facility])[address] [place] [address] Potassium [Moles/Vol] 3.3 mmol/L Low 3.5-5.1 [facility] Comment on above: Performed By: #### L [id number] ####[facility] ([facility])[address] [place] [address] Sodium [Moles/Vol] 146 mmol/L High 136-145 [facility] Comment on above: Performed By: #### L [id number] ####[facility] ([facility])[address] [place] [address] Urea nitrogen [Mass/Vol] 35 mg/dL High 7-25 [facility] Comment on above: Performed By: #### L [id number] ####[facility] [place] [address] UREA NITROGEN/CREATININ E (MASS RATIO) IN SER/PLAS 23.8 Normal [facility] Comment on above: Performed By: #### L [id number] ####[facility] [place] [address] CBCon 11-21-2023 Erythrocyte distribution width (RBC) [Ratio] 15.3 % High 11.5-15.0 [facility] Comment on above: Performed By: #### L [id number] ####[facility] ([facility])[address] [place] [address] ERYTHROCYTE MEAN CORPUSCULAR HEMOGLOBIN CONCENTRATION (G/DL) BY AUTOMATED 32.7 g/dL Normal 32.0-35.0 [facility] Comment on above: Performed By: #### L [id number] ####[facility] [place] [address] Hematocrit (Bld) [Volume fraction] 38.5 % Low 39.0-55.0 [facility] Comment on above: Performed By: #### L [id number] ####[facility] [place] [address] Hemoglobin (Bld) [Mass/Vol] 12.6 g/dL Low 13.0-17.0 [facility] Comment on above: Performed By: #### L [id number] ####[facility] [place] [address] MCH (RBC) [Entitic mass] 32.1 pg Normal 27.0-33.0 [facility] Comment on above: Performed By: #### L [id number] ####[facility] ([facility])[address] [place] [address] MCV (RBC) [Entitic vol] 98.2 fL High 82.0-98.0 [facility] Comment on above: Performed By: #### L [id number] ####[facility] ([facility])[address] [place] [address] PLATELETS (10*3/UL) IN BLOOD AUTOMATED COUNT 172 10*3/uL Normal 150-400 [facility] Comment on above: Performed By: #### L [id number] ####[facility] ([facility])[address] [place] [address] RBC (Bld) [#/Vol] 3.92 10*6/uL Low 4.20-5.70 [facility] Comment on above: Performed By: #### L [id number] ####[facility] ([facility])[address] [place] [address] WBC (Bld) [#/Vol] 9.67 10*3/uL Normal 4.00-10.60 [facility] Comment on above: Performed By: #### L [id number] ####[facility] ([facility])[address] [place] [address] 30on 11-20-2023 30 The patient is Moderately Stable - Low risk of patient condition declining or worsening The patient's goals for the shift include restraints off The clinical goals for the shift include stable hemodynamics Over the shift, the patient did not make progress toward the following goals. Normal [facility] 30 Daily Case Managemen t [...] OT Six Click Score: 8 PT Recommendations: [facility] facility placement OT Recommendations: [facility] facility placement New Consults: Ancillary Consults (From admission, onward) Start Ordered 11/19/23923 Inpatient consult to Social Work Once Provider: (Not yet assigned) Question Answer Comment Select all services needed for the patient Senior Care Facility (30 day convalescent stay) Please indicate your approval for this care by adding your name here: GURDEEP OBRIEN 11/19/23923 Therapy Orders (From admission, onward) Start Ordered 11/19/23 075 PT eval and treat Until therapy completed Question: Reason for PT? Answer: eval and treat 11/19/23 0756 11/19/23 075 OT eval and treat Until therapy completed Question: Reason for OT? Answer: eval and treat 11/19/23755 [facility] CONSULTon 11-20-2023 CONSULT -- Attestation signed by Juan Pablo Liz MD at 11/21/2023 12:08 PM As noted. Patient to be staffed in person on 11/20 Psychiatry Consultation Service - New Assessment Patient Name: Nat Moore MRN / CSN: [id number] Date of / Age: 2 1940 / [...] mild cognitive impairment originally presenting to the [facility] on 11/15/2023 for evaluation of recurrent episodes of syncope secondary to spontaneous prolonged sinus pause. The patient was transferred via air ambulance from the [facility]. Psychiatry was consulted for management of agitation secondary to dementia . Emergency Room Course: Imaging/Workup: On arrival to [facility] the patient's blood pressure was 158/72 mmHg, pulse rate 78 bpm, regular, SpO2 100% on room air, respiratory rate 20/min, temperature 97.2. 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 CT of the abdomen with contrast done at [place] [facility] showed nonobstructive bowel gas pattern with [...] would con (more content not included)... Normal [facility] NURSNOTEon 11-20-2023 NURSNOTE Patient Name: Nat Moore : 1940 Primary Care Physician: Juan Pablo Alaniz MD Admission Date: 11/15/2023 RAPID RESPONSE TEAM ICU TRANSFER FOLLOW-UP NOTE SUBJECTIVE / OBJECTIVE: Follow-up for previous transfer out of the ICU notification for 11/19 at 1806. ASSESSMENT / INTERVENTIONS: Recent Vital Signs: Vitals: 11/20/23 1400 11/20/23 1500 11/20/23 1600 11/20/23 181 BP: 142/69 161/71 159/67 179/77 BP Location: Right arm Patient Position: Lying Pulse: 97 106 100 86 Resp: 14 Temp: 36.6 ???C (97.9 ???F) 37 ???C [...] voiced no concerns at this time. The service writer advisor urged the primary RN to call the rapid team if any concerns arise overnight. Chevy Hines RN Rapid Response Team Nurse [phone] 11/20/2023 11:34 PM Normal [facility] 30on 11-19-2023 30 Daily Case Managemen t Update Multidisciplinary rounds have been completed. Barriers to Discharge: 11/18- patient here from [facility] for recurrent episodes of syncope secondary to spontaneous prolonged sinus pauses. During his stay in [place] [facility] he suddenly developed bradycardia prolonged sinus [...] Answer: eval and treat 11/19/23 0756 Normal [facility] BASIC METABOLIC PANELon 10-23 Anion gap [Moles/Vol] 11 mmol/L Normal 7-20 [facility] Comment on above: Performed By: #### L [id number] ####[facility] [facility] [place] [address] Calcium [Mass/Vol] 8.0 mg/dL Low 8.6-10.3 [facility] Comment on above: Performed By: #### L [id number] ####[facility] ([facility])[address] [facility] [place] [address] Chloride [Moles/Vol] 112 mmol/L High 98-107 [facility] Comment on above: Performed By: #### L [id number] ####[facility] ([facility])[address] [facility] [place] [address] CO2 [Moles/Vol] 26 mmol/L Normal 21-31 [facility] Comment on above: Performed By: #### L [id number] ####[facility] [facility] [place] [address] Creatinine [Mass/Vol] 1.69 mg/dL High 0.70-1.30 [facility] Comment on above: Performed By: #### L [id number] ####[facility] [place] [address] GLOMERULAR FILTRATION RATE ML/MIN/1.73 SQ M.PREDICTED 39.3 mL/min/1.73m*2 Low >60.0 [facility] Comment on above: Result Comment: [facility]???s estimated glomerular filtration rate (eGFR) [...] of individuals. Performed By: #### L [id number] ####[facility] [place] [address] Glucose [Mass/Vol] 122 mg/dL High 70-100 [facility] Comment on above: Performed By: #### L [id number] ####[facility] ([facility])[address] [place] [address] Potassium [Moles/Vol] 3.5 mmol/L Normal 3.5-5.1 [facility] Comment on above: Performed By: #### L [id number] ####[facility] ([facility])[address] [place] [address] Sodium [Moles/Vol] 145 mmol/L Normal 136-145 [facility] Comment on above: Performed By: #### L [id number] ####[facility] ([facility])[address] [place] [address] Urea nitrogen [Mass/Vol] 49 mg/dL High 7-25 [facility] Comment on above: Performed By: #### L [id number] ####[facility] ([facility])[address] [place] [address] UREA NITROGEN/CREATININ E (MASS RATIO) IN SER/PLAS 29.0 Normal [facility] Comment on above: Performed By: #### L [id number] ####[facility] ([facility])[address] [place] [address] CBCon 11-19-2023 Erythrocyte distribution width (RBC) [Ratio] 15.0 % Normal 11.5-15.0 [facility] Comment on above: Performed By: #### L [id number] #### [facility] [address] [place] [address] ERYTHROCYTE MEAN CORPUSCULAR HEMOGLOBIN CONCENTRATION (G/DL) BY AUTOMATED 32.8 g/dL Normal 32.0-35.0 [facility] Comment on above: Performed By: #### L [id number] #### [facility] ([facility]) [address] [place] [address] Hematocrit (Bld) [Volume fraction] 38.7 % Low 39.0-55.0 [facility] Comment on above: Performed By: #### L [id number] #### [facility] ([facility]) [address] [place] [address] Hemoglobin (Bld) [Mass/Vol] 12.7 g/dL Low 13.0-17.0 [facility] Comment on above: Performed By: #### L [id number] #### [facility] ([facility]) [address] [place] [address] MCH (RBC) [Entitic mass] 31.8 pg Normal 27.0-33.0 [facility] Comment on above: Performed By: #### L [id number] #### [facility] [facility]) [address] [place] [address] MCV (RBC) [Entitic vol] 97.0 fL Normal 82.0-98.0 [facility] Comment on above: Performed By: #### L [id number] #### [facility] ([facility]) [address] [place] [address] PLATELETS (10*3/UL) IN BLOOD AUTOMATED COUNT 148 10*3/uL Low 150-400 [facility] Comment on above: Performed By: #### L [id number] #### [facility] ([facility]) [address] [place] [address] RBC (Bld) [#/Vol] 3.99 10*6/uL Low 4.20-5.70 [facility] Comment on above: Performed By: #### L [id number] #### [facility] ([facility]) [address] [place] [address] WBC (Bld) [#/Vol] 7.82 10*3/uL Normal 4.00-10.60 [facility] Comment on above: Performed By: #### L [id number] #### [facility] ([facility]) [address] [place] [address] ANESon 11-17-2023 ANES -- Attestation signed by Sam [...] Information Date: 11/17/23 Procedure: Implant PPM Location: [facility] [place] [facility] (Cath) Providers: Nora Rivera MD Clinical information reviewed: Allergies Meds Physical Exam Airway Mallampati: III Cardiovascular Rhythm: regular Rate: normal Dental Pulmonary Breath sounds clear to auscultation Abdominal Abdomen: soft Anesthesia Plan Additional Equipment Requests Normal [facility] BASIC METABOLIC PANELon 10-23 Anion gap [Moles/Vol] 11 mmol/L Normal 7-20 [facility] Comment on above: Performed By: #### L [id number] #### [facility] ([facility]) [address] [place] [address] Calcium [Mass/Vol] 8.0 mg/dL Low 8.6-10.3 [facility] Comment on above: Performed By: #### L [id number] #### [facility] ([facility]) [address] [place] [address] Chloride [Moles/Vol] 109 mmol/L High 98-107 [facility] Comment on above: Performed By: #### L [id number] #### [facility] ([facility]) [address] [address] CO2 [Moles/Vol] 25 mmol/L Normal 21-31 [facility] Comment on above: Performed By: #### L [id number] #### [facility] ([facility]) [address] [place] [address] Creatinine [Mass/Vol] 1.42 mg/dL High 0.70-1.30 [facility] Comment on above: Performed By: #### L [id number] #### [facility] ([facility]) [address] [place] [address] GLOMERULAR FILTRATION RATE ML/MIN/1.73 SQ M.PREDICTED 48.4 mL/min/1.73m*2 Low >60.0 [facility] Comment on above: Result Comment: [facility]???s estimated glomerular filtration rate (eGFR) [...] individuals. Performed By: #### L [id number] #### [facility] ([facility]) [address] [address] Glucose [Mass/Vol] 169 mg/dL High 70-100 [facility] Comment on above: Performed By: #### L [id number] #### [facility] ([facility]) [address] [place] [address] Potassium [Moles/Vol] 4.3 mmol/L Normal 3.5-5.1 [facility] Comment on above: Performed By: #### L [id number] #### [facility] [address] [place] [address] Sodium [Moles/Vol] 141 mmol/L Normal 136-145 [facility] Comment on above: Performed By: #### L [id number] #### [facility] [address] [place] [address] Urea nitrogen [Mass/Vol] 33 mg/dL High 7-25 [facility] Comment on above: Performed By: #### L [id number] #### [facility] ([facility]) [address] [place] [address] UREA NITROGEN/CREATININ E (MASS RATIO) IN SER/PLAS 23.2 Normal [facility] Comment on above: Performed By: #### L [id number] #### [facility] ([facility]) [address] [place] [address] CBCon 11-17-2023 Erythrocyte distribution width (RBC) [Ratio] 14.9 % Normal 11.5-15.0 [facility] Comment on above: Performed By: #### L [id number] #### [facility] ([facility]) [address] [place] [address] ERYTHROCYTE MEAN CORPUSCULAR HEMOGLOBIN CONCENTRATION (G/DL) BY AUTOMATED 32.2 g/dL Normal 32.0-35.0 [facility] Comment on above: Performed By: #### L [id number] #### [facility] ([facility]) [address] [place] [address] Hematocrit (Bld) [Volume fraction] 39.5 % Normal 39.0-55.0 [facility] Comment on above: Performed By: #### L [id number] #### [facility] [address] [place] [address] Hemoglobin (Bld) [Mass/Vol] 12.7 g/dL Low 13.0-17.0 [facility] Comment on above: Performed By: #### L [id number] #### [facility] ([facility]) [address] [place] [address] MCH (RBC) [Entitic mass] 31.8 pg Normal 27.0-33.0 [facility] Comment on above: Performed By: #### L [id number] #### [facility] ([facility]) [address] [place] [address] MCV (RBC) [Entitic vol] 99.0 fL High 82.0-98.0 [facility] Comment on above: Performed By: #### L [id number] #### [facility] ([facility]) [address] [place] [address] PLATELETS (10*3/UL) IN BLOOD AUTOMATED COUNT 157 10*3/uL Normal 150-400 [facility] Comment on above: Performed By: #### L [id number] #### [facility] ([facility]) [address] [place] [address] RBC (Bld) [#/Vol] 3.99 10*6/uL Low 4.20-5.70 [facility] Comment on above: Performed By: #### L [id number] #### [facility] ([facility]) [address] [place] [address] WBC (Bld) [#/Vol] 9.04 10*3/uL Normal 4.00-10.60 [facility] Comment on above: Performed By: #### L [id number] #### [facility] ([facility]) [address] [place] [address] HEMOGLOBIN A1Con 11-17-2023 Glucose [Mass/Vol] 114 mg/dL Normal [facility] Comment on above: Order Comment: NO VA RIANT Performed By: #### L [id number] ####[facility] ([facility])[address] [place] [address] HbA1c (Bld) [Mass fraction] 5.6 % Normal 4.0-6.0 [facility] Comment on above: Order Comment: NO VA RIANT Performed By: #### L [id number] ####[facility] ([facility])[address] [place] [address] HPon 11-17-2023 HP -- Attestation signed by [...] placement of PPM in the AM. Normal [facility] LIPID PANELon 11-17-2023 CHOL/HDL 3.8 mg/dL Normal [facility] Comment on above: Performed By: #### L [id number] ####[facility] ([facility])[address] [place] [address] Cholesterol [Mass/Vol] 127 mg/dL Normal 120-200 [facility] Comment on above: Performed By: #### L [id number] ####[facility] ([facility]AKER)[address] [place] [address] Magnesium [Mass/Vol] 81 mg/dL Normal 40-149 [facility] Comment on above: Result Comment: TRIG LYCERIDE REFERENCE RANGE: 20 YEARS AND OLDER CARDIOVASCULAR RISK LESS THAN 150 mg/dL LOW RISK 150 TO 199 mg/dL BORDERLINE RISK 200 mg/dL AND GREATER HIGH RISK Performed By: #### L [id number] ####[facility] ([facility]AKER)[address] [facility] [address] Magnesium [Mass/Vol] 78 mg/dL Normal 0-160 [facility] Comment on above: Performed By: #### L [id number] ####[facility] ([facility]ER)[address] [place] [address] Magnesium [Mass/Vol] 33 mg/dL Normal 23-92 [facility] Comment on above: Performed By: #### L [id number] ####[facility] [facility] [place] [address] NON HDL CHOL. (LDL+VLDL) 94 Normal [facility] Comment on above: Performed By: #### L [id number] ####[facility] ([facility]ER)[address] [facility] [place] [address] TOTAL VLDL-C 16 mg/dL Normal 0-40 [facility] Comment on above: Performed By: #### L [id number] ####[facility] ([facility]ER)[address] [facility] [place] [address] LIPOPROTEIN A (LPA)on 2023 Magnesium [Mass/Vol] 23 mg/dL Normal <=29 [facility] Comment on above: Result Comment: Perf ormed By: [employer] [address] [place] [id number] Senior Etl Developer: Rivas Castillo MD, PhD CLIA Number: [id number] Performed By: #### L [id number] #### [facility] ([facility]) [address] [place] [address] MAGNESIUMon 11-17-2023 Magnesium [Mass/Vol] 2.0 mg/dL Normal 1.9-2.7 [facility] Comment on above: Performed By: #### L [id number] ####[facility] ([facility])[address] [place] [address] PHOSPHORUSon 11-17-2023 Magnesium [Mass/Vol] 3.1 mg/dL Normal 2.5-5.0 [facility] Comment on above: Performed By: #### L [id number] #### [facility] ([facility]) [address] [place] [address] 30on 11-16-2023 30 The patient is Moderately [...] or at baseline Outcome: Not Progressing Normal [facility] ANESon 11-16-2023 ANES Patient: Nat [...] Additional Equipment Requests Jovita Sanchez MD, MPH, [facility], [facility], [facility] Interventional Cardiology Pager Email: [email or web address] Normal [facility] B-TYPE NATRIURETIC PEPTIDEon 11-16-2023 Natriuretic peptide B (Bld) [Mass/Vol] 103 pg/mL High 0-100 [facility] Comment on above: Performed By: #### L [id number] #### [facility] ([facility]) [address] [place] [address] BASIC METABOLIC PANELon 10-234 Anion gap [Moles/Vol] 10 mmol/L Normal 7-20 [facility] Comment on above: Performed By: #### L [id number] #### [facility] ([facility]) [address] [place] [address] Calcium [Mass/Vol] 8.2 mg/dL Low 8.6-10.3 [facility] Comment on above: Performed By: #### L [id number] #### [facility] ([facility]) [address] [place] [address] Chloride [Moles/Vol] 108 mmol/L High 98-107 [facility] Comment on above: Performed By: #### L [id number] #### [facility] ([facility]) [address] [place] [address] CO2 [Moles/Vol] 27 mmol/L Normal 21-31 [facility] Comment on above: Performed By: #### L [id number] #### [facility] ([facility]) [address] [place] [address] Creatinine [Mass/Vol] 1.53 mg/dL High 0.70-1.30 [facility] Comment on above: Performed By: #### L [id number] #### [facility] ([facility]) [address] [place] [address] GLOMERULAR FILTRATION RATE ML/MIN/1.73 SQ M.PREDICTED 44.3 mL/min/1.73m*2 Low >60.0 [facility] Comment on above: Result Comment: [facility]???s estimated glomerular filtration rate (eGFR) [...] individuals. Performed By: #### L [id number] #### [facility] [address] [place] [address] Glucose [Mass/Vol] 124 mg/dL High 70-100 [facility] Comment on above: Performed By: #### L [id number] #### [facility] [address] [place] [address] Potassium [Moles/Vol] 4.3 mmol/L Normal 3.5-5.1 [facility] Comment on above: Performed By: #### L [id number] #### [facility] ([facility]) [address] [place] [address] Sodium [Moles/Vol] 141 mmol/L Normal 136-145 [facility] Comment on above: Performed By: #### L [id number] #### [facility] ([facility]) [address] [place] [address] Urea nitrogen [Mass/Vol] 31 mg/dL High 7-25 [facility] Comment on above: Performed By: #### L [id number] #### [facility] ([facility]) [address] [place] [address] UREA NITROGEN/CREATININ E (MASS RATIO) IN SER/PLAS 20.3 Normal [facility] Comment on above: Performed By: #### L [id number] #### [facility] [address] [place] [address] Anion gap [Moles/Vol] 10 mmol/L Normal 7-20 [facility] Comment on above: Performed By: #### L [id number] #### [facility] [address] [place] [address] Calcium [Mass/Vol] 8.1 mg/dL Low 8.6-10.3 [facility] Comment on above: Performed By: #### L [id number] #### [facility] [address] [place] [address] Chloride [Moles/Vol] 108 mmol/L High 98-107 [facility] Comment on above: Performed By: #### L [id number] #### [facility] [address] [place] [address] CO2 [Moles/Vol] 27 mmol/L Normal 21-31 [facility] Comment on above: Performed By: #### L [id number] #### [facility] ([facility]) [address] [place] [address] Creatinine [Mass/Vol] 1.40 mg/dL High 0.70-1.30 [facility] Comment on above: Performed By: #### L [id number] #### [facility] ([facility]) [address] [place] [address] GLOMERULAR FILTRATION RATE ML/MIN/1.73 SQ M.PREDICTED 49.3 mL/min/1.73m*2 Low >60.0 [facility] Comment on above: Result Comment: [facility]???s estimated glomerular filtration rate (eGFR) [...] individuals. Performed By: #### L [id number] #### [facility] ([facility]) [address] [place] [address] Glucose [Mass/Vol] 136 mg/dL High 70-100 [facility] Comment on above: Performed By: #### L [id number] #### [facility] [address] [place] [address] Potassium [Moles/Vol] 4.3 mmol/L Normal 3.5-5.1 [facility] Comment on above: Performed By: #### L [id number] #### [facility] [address] [place] [address] Sodium [Moles/Vol] 141 mmol/L Normal 136-145 [facility] Comment on above: Performed By: #### L [id number] #### [facility] [address] [place] [address] Urea nitrogen [Mass/Vol] 27 mg/dL High 7-25 [facility] Comment on above: Performed By: #### L [id number] #### [facility] ([facility]) [address] [place] [address] UREA NITROGEN/CREATININ E (MASS RATIO) IN SER/PLAS 19.3 Normal [facility] Comment on above: Performed By: #### L [id number] #### [facility] ([facility]) [address] [place] [address] CBCon 11-16-2023 Erythrocyte distribution width (RBC) [Ratio] 15.1 % High 11.5-15.0 [facility] Comment on above: Performed By: #### L [id number] #### [facility] ([facility]) [address] [place] [address] ERYTHROCYTE MEAN CORPUSCULAR HEMOGLOBIN CONCENTRATION (G/DL) BY AUTOMATED 32.4 g/dL Normal 32.0-35.0 [facility] Comment on above: Performed By: #### L [id number] #### [facility] ([facility]) [address] [place] [address] Hematocrit (Bld) [Volume fraction] 36.7 % Low 39.0-55.0 [facility] Comment on above: Performed By: #### L [id number] #### [facility] [address] [place] [address] Hemoglobin (Bld) [Mass/Vol] 11.9 g/dL Low 13.0-17.0 [facility] Comment on above: Performed By: #### L [id number] #### [facility] [address] [place] [address] MCH (RBC) [Entitic mass] 32.0 pg Normal 27.0-33.0 [facility] Comment on above: Performed By: #### L [id number] #### [facility] ([facility]) [address] [place] [address] MCV (RBC) [Entitic vol] 98.7 fL High 82.0-98.0 [facility] Comment on above: Performed By: #### L [id number] #### [facility] ([facility]) [address] [place] [address] PLATELETS (10*3/UL) IN BLOOD AUTOMATED COUNT 157 10*3/uL Normal 150-400 [facility] Comment on above: Performed By: #### L [id number] #### [facility] ([facility]) [address] [place] [address] RBC (Bld) [#/Vol] 3.72 10*6/uL Low 4.20-5.70 [facility] Comment on above: Performed By: #### L [id number] #### [facility] ([facility]) [address] [place] [address] WBC (Bld) [#/Vol] 8.83 10*3/uL Normal 4.00-10.60 [facility] Comment on above: Performed By: #### L [id number] #### [facility] ([facility]) [address] [place] [address] HPon 11-16-2023 H&P reviewed. Apparently this morning, the [...] wishes to proceed. Jovita Sanchez MD, MPH, [facility], [facility], [facility] Interventional Cardiology Pager Email: [email or web address] Normal [facility] -- Attestation signed by Art Mckoy MD [...] which are billed separately. Art Mckoy MD [facility] Pulmonary and Critical Care Medicine Adult ICU History & Physical Patient - Nat Moore Age - 83 [facility] 1940 [id number] Date of Admission - 11/15/2023 2:42 PM Chief Complaint Syncope History of Present Illness Nat Moore is a an 83-year-old gentleman with PMH significant for type 2 diabetes mellitus, essential hypertension, hyperlipidemia, CKD stage IIIa, bilateral lower extremity edema on diuretic therapy, osteoarthritis, depression and mild cognitive impairment was initially admitted to the hospitalist service from [place] due to recurrent episodes of syncope secondary [...] his presenting complaints. During his stay in [place] ED he suddenly developed bradycardia prolonged sinus [...] of the abdomen with contrast done at [place] ED showed nonobstructive bowel gas pattern with [...] planning on taking the patient to the [facility] tomorrow for possible transvenous pacemaker placement. PMH: [...] sodium (C (more content not included)... Normal [facility] LACTIC ACID WITH 4 HOUR REFL EXon 11-16-2023 LACTATE (MMOL/L) IN SER/PLAS 1.2 mmol/L Normal 0.5-2.2 [facility] Comment on above: Performed By: #### L [id number] #### [facility] ([facility]) [address] [place] [address] MAGNESIUMon 11-16-2023 Magnesium [Mass/Vol] 2.1 mg/dL Normal 1.9-2.7 [facility] Comment on above: Performed By: #### L [id number] #### [facility] ([facility]) [address] [place] [address] Magnesium [Mass/Vol] 1.7 mg/dL Low 1.9-2.7 [facility] Comment on above: Performed By: #### L [id number] #### [facility] ([facility]) [address] [place] [address] PRO-BNPon 11-16-2023 Natriuretic peptide B (Bld) [Mass/Vol] 576 pg/mL High 0-300 [facility] Comment on above: Result Comment: An a ge-independent cutoff point of 300 pg/ml has a 98% negative predictive value excluding acute heart failure. Test Performed by [employer] [id number] [place] [address] - Released 11/16/2023 20:27 Performed By: #### L [id number] ####[employer] [id number] [place] [address] TSH3 REFLEX TO FT4on 024 THYROTROPIN (MIU/L) IN SER/PLAS BY DETECTION LIMIT <= 0.05 MIU/L 1.67 mIU/L Normal 0.34-5.60 [facility] Comment on above: Performed By: #### L [id number] #### [facility] [address] [place] [address] 30on 11-15-2023 30 The patient is Moderately [...] and maintained or improved Outcome: Progressing Normal [facility] CBCon 11-15-2023 Erythrocyte distribution width (RBC) [Ratio] 15.2 % High 11.5-15.0 [facility] Comment on above: Performed By: #### L [id number] ####[facility] [place] [address] ERYTHROCYTE MEAN CORPUSCULAR HEMOGLOBIN CONCENTRATION (G/DL) BY AUTOMATED 32.8 g/dL Normal 32.0-35.0 [facility] Comment on above: Performed By: #### L [id number] ####[facility] (BEAKER)[address] [place] [address] Hematocrit (Bld) [Volume fraction] 37.8 % Low 39.0-55.0 [facility] Comment on above: Performed By: #### L [id number] ####[facility] (BE[facility]ER)[address] [place] [address] Hemoglobin (Bld) [Mass/Vol] 12.4 g/dL Low 13.0-17.0 [facility] Comment on above: Performed By: #### L [id number] ####[facility] ([facility] [place] [address] MCH (RBC) [Entitic mass] 31.9 pg Normal 27.0-33.0 [facility] Comment on above: Performed By: #### L [id number] ####[facility] ([facility])[address] [place] [address] MCV (RBC) [Entitic vol] 97.2 fL Normal 82.0-98.0 [facility] Comment on above: Performed By: #### L [id number] ####[facility] ([facility])[address] [place] [address] PLATELETS (10*3/UL) IN BLOOD AUTOMATED COUNT 172 10*3/uL Normal 150-400 [facility] Comment on above: Performed By: #### L [id number] ####[facility] ([facility])[address] [place] [address] RBC (Bld) [#/Vol] 3.89 10*6/uL Low 4.20-5.70 [facility] Comment on above: Performed By: #### L [id number] ####[facility] ([facility])[address] [place] [address] WBC (Bld) [#/Vol] 8.89 10*3/uL Normal 4.00-10.60 [facility] Comment on above: Performed By: #### L [id number] ####[facility] ([facility])[address] [place] [address] COMPREHENSIVE METABOLIC PANE Dmitri 11-15-2023 Albumin [Mass/Vol] 3.7 g/dL Normal 3.5-5.7 [facility] Comment on above: Performed By: #### L [id number] #### [facility] ([facility]) [address] [place] [address] ALP [Catalytic activity/Vol] 70 U/L Normal 34-104 [facility] Comment on above: Performed By: #### L [id number] #### [facility] [address] [place] [address] ALT [Catalytic activity/Vol] 7 U/L Normal 7-52 [facility] Comment on above: Performed By: #### L [id number] #### [facility] (BEAKER) [address] [place] [address] Anion gap [Moles/Vol] 9 mmol/L Normal 7-20 [facility] Comment on above: Performed By: #### L [id number] #### [facility] (BE[facility]ER) [address] [place] [address] AST [Catalytic activity/Vol] 11 U/L Low 13-39 [facility] [facility] Comment on above: Performed By: #### L [id number] #### [facility] (BEAKER) [address] [place] [address] Bilirubin [Mass/Vol] 0.6 mg/dL Normal 0.3-1.0 [facility] Comment on above: Performed By: #### L [id number] #### [facility] (BEAKER) [address] [place] [address] Calcium [Mass/Vol] 8.2 mg/dL Low 8.6-10.3 [facility] Comment on above: Performed By: #### L [id number] #### [facility] ([facility]) [address] [place] [address] Chloride [Moles/Vol] 107 mmol/L Normal 98-107 [facility] Comment on above: Performed By: #### L [id number] #### [facility] ([facility]) [address] [place] [address] CO2 [Moles/Vol] 29 mmol/L Normal 21-31 [facility] Comment on above: Performed By: #### L [id number] #### [facility] ([facility]) [address] [place] [address] Creatinine [Mass/Vol] 1.37 mg/dL High 0.70-1.30 [facility] Comment on above: Performed By: #### L [id number] #### [facility] ([facility]) [address] [place] [address] GLOMERULAR FILTRATION RATE ML/MIN/1.73 SQ M.PREDICTED 50.6 mL/min/1.73m*2 Low >60.0 [facility] Comment on above: Result Comment: The [facility]???s estimated glomerular filtration rate (eGFR) [...] individuals. Performed By: #### L [id number] #### [facility] ([facility]) [address] [place] [address] Glucose [Mass/Vol] 120 mg/dL High 70-100 [facility] Comment on above: Performed By: #### L [id number] #### [facility] ([facility]) [address] [place] [address] Potassium [Moles/Vol] 4.1 mmol/L Normal 3.5-5.1 [facility] Comment on above: Performed By: #### L [id number] #### [facility] ([facility]) [address] [place] [address] Protein [Mass/Vol] 6.0 g/dL Normal 6.0-8.3 [facility] Comment on above: Performed By: #### L [id number] #### [facility] ([facility]) [address] [place] [address] Sodium [Moles/Vol] 141 mmol/L Normal 136-145 [facility] Comment on above: Performed By: #### L [id number] #### [facility] ([facility]) [address] [place] [address] Urea nitrogen [Mass/Vol] 26 mg/dL High 7-25 [facility] Comment on above: Performed By: #### L [id number] #### [facility] (BEJONY) [address] [place] [address] UREA NITROGEN/CREATININ E (MASS RATIO) IN SER/PLAS 19.0 Normal [facility] Comment on above: Performed By: #### L [id number] #### [facility] (TRUDY) [address] [place] [address] CONSULTon 11-15-2023 CONSULT Division of Cardiovascular Medicine Interventional Cardiology Consult Chief Complaint: Transfer from [place] HPI: 83 yo with h/o HTN, CKD, dyslipidemia presented to [facility] with c/o chest and back pain. While being evaluated he had episodes of prolonged sinus pauses (12-18 sec?) with loss of consciousness and vomiting. He was Life [facility]ed to [facility]. On arrival , I evaluated him at [...] infarctions or CHF. Does not see a operations business partner. Patient Active Problem List Diagnosis Syncope and [...] plan on (more content not included)... Normal [facility] CT HEAD WO IV CONTRASTon [...] GAGANDEEP CLAUDIO MD. 3 Invalid Interpretation Code [facility] HPon 11-15-2023 Division of Cardiovascular Medicine Interventional Cardiology Consult Chief Complaint: Transfer from [place] HPI: 83 yo with h/o HTN, CKD, dyslipidemia presented to [facility] with c/o chest and back pain. While being evaluated he had episodes of prolonged sinus pauses (12-18 sec?) with loss of consciousness and vomiting. He was Life flighted to [facility]. On arrival , I evaluated him at [...] infarctions or CHF. Does not see a operations business partner. Patient Active Problem List Diagnosis Syncope and [...] plan on (more content not included)... Normal [facility] MAGNESIUMon 11-15-2023 Magnesium [Mass/Vol] 1.7 mg/dL Low 1.9-2.7 [facility] Comment on above: Performed By: #### L [id number] #### [facility] (BEAKER) [address] [place] [address] NURSNOTEon 11-15-2023 NURSNOTE Facilities Mechanical Design Engineer reach out to Cardiology (Dr. Figueroa) to notify her of the pt transferring to MICU due to change in condition and code blue being called. She asked if the patient was paced at bedside and nurse replied no but pt was transferred and will be paced in MICU. Normal [facility] ELIEL Facilities Mechanical Design Engineer attempted to reach out to family via home number in chart and it wasn't in service. Charge nurse MIGUEL Lloyd was notified and MICU was notified as well by MIGUEL Lloyd. [facility] ELIEL Bedside report given to MIGUEL Ghosh prior to transfer to MICU due to change in condition and code blue being called for asystole lasting 10.19 seconds. [facility] ELIEL Spoke with Dr. Wendy [...] imaging done and we'll go from there. [facility] TROPONIN Ion 11-15-2023 Troponin I.cardiac [Mass/Vol] 0.01 ng/mL Normal 0.00-0.04 [facility] Comment on above: Performed By: #### L [id number] #### [facility] (BEAKER) [address] [place] [address] HbA1c (Bld) [Mass fraction]o n 11-13-2023 [facility] - Hematology and Cell countson 11-13-2023 HbA1c (Bld) [Mass fraction] 5.8 % [facility] Office/Clinic Noteon 11-12-2023 Urology Office/Clinic Note [...] call if too cost prohibitive, sent to [facility] Jillian Hutchins -f/up in 3 mos 2. BPH with obstruction/lower urinary tract symptoms (N40.1: Benign prostatic hyperplasia with lower urinary tract symptoms) PVR (cc): 11/10/24 - 110 (last voided approx 1 hr before appt) IPSS 17. Pt unable to provide urine sample today. Taking Flomax 0.4 mg qd. States he goes to the restroom every 2 hours or more, nocturia 2-3x per night & wears a depends. -See #1 -Cont flomax 0.4mg daily wo changes Follow-up With When Contact RAUL Palma APRN, Marianela Rodriguez, RIANNA, URL Additional Instructions: [...] pneumococcal 23-valent vac (more content not included)... [facility] Comment on above: Result Comment: [...] APRN, [place] X Where: [facility] [place] [address]- You Need to Schedule the Following Appointments Follow Up with [employer] ATTENDANT, SUPERVISOR [employer], Marianela X, FAM, URL When: Comments: f/up in [...] Leaking ur (more content not included)... Normal [facility] Patient Letter FTon 2023 Patient Letter [facility] [place] Letter [facility] October 14, 2023 NAT MOORE [address] [place] [address] [address] [place] [address] : 1940 Dear Nat, You missed your [...] [facility] [address], [place] [address] [facility] Patient Letter FTon 2023 Patient Letter [facility] May 13, 2023 JOHNSASHELY MOORE [address] [place] [address] : 1940 Dear Nat, You missed your [...] [facility] [address], [place] [address] [facility] BNPon 07-27-2022 Natriuretic peptide B (Bld) [Mass/Vol] 178.0 pg/mL Normal <=1,800.0 [facility] Comment on above: Performed By: #### C MP, BNP, CMADM #### [facility] [address] [address] [address] Loyd Parks CARDIAC SPARKLE ADMITon 023 CK [Catalytic activity/Vol] 50 U/L Normal 39-308 [facility] Comment on above: Performed By: #### C MP, BNP, CMADM #### [facility] [address] [address] [address] Loyd Parks CK.MB [Mass/Vol] 0.83 ng/mL Normal <=3.60 [facility] Comment on above: Performed By: #### C MP, BNP, CMADM #### [facility] [address] [address] [address] Loyd Parks HSTROP 6.3 pg/mL Normal 4.0-76.1 [facility] Comment on above: Result Comment: CUT- OFF POINTS HAVE BEEN ESTABLISHED BASED ON THE FOURTH UNIVERSAL DEFINITIONS OF MYOCARDIAL INFARCTION. THE UPPER REFERENCE LIMIT (URL) OF TROPONIN, DEFINED THE 99TH PERCENTILE OF cTnI DISTRIBUTION IN A REFERENCE POPULATION, HAS BEEN CONFIRMED THE DECISION THRESHOLD FOR [place] DIAGNOSIS. Performed By: #### C MP, BNP, CMADM #### [facility] [address] [place] [address] Dr. Loyd Parks WM 121 ng/mL Critically high 16-96 [facility] Comment on above: Performed By: #### C MP, BNP, CMADM #### [facility] [address] [place] [address] Dr. Loyd Parks CBC AUTO DIFFon 07-27-2022 BASO # 0.1 103/ul Normal 0.0-0.1 [facility] Comment on above: Performed By: #### C BC #### [facility] [address] [place] [address] Dr. Loyd Parks Basophils/100 WBC (Bld) 0.6 % Normal 0.2-2.0 [facility] Comment on above: Performed By: #### C BC #### [facility] [address] [place] [address] Dr. Loyd Parks EO # 0.5 103/ul Normal 0.0-0.7 [facility] Comment on above: Performed By: #### C BC #### [facility] [address] [place] [address] Dr. Loyd Parks Eosinophils/100 WBC (Bld) 4.8 % Normal 0.9-7.0 [facility] Comment on above: Performed By: #### C BC #### [facility] [address] [place] [address] Dr. Loyd Parks Erythrocyte distribution width (RBC) [Ratio] 13.5 % Normal 11.0-15.0 [facility] Comment on above: Performed By: #### C BC #### [facility] [address] [place] [address] Dr. Loyd Parks Hematocrit (Bld) [Volume fraction] 39.7 % Critically low 42.0-54.0 [facility] Comment on above: Performed By: #### C BC #### [facility] [address] [place], [place] [id number] Dr. Loyd Parks Hemoglobin (Bld) [Mass/Vol] 13.1 g/dL Critically low 14.0-18.0 [facility] Comment on above: Performed By: #### C BC #### [facility] [address] [place] [address] Dr. Loyd Parks IG # 0.05 10e3/ul Critically high 0.00-0.03 [facility] Comment on above: Performed By: #### C BC #### [facility] [address] [place] [address] Dr. Loyd Parks IG % 0.5 % Normal 0.0-0.5 [facility] Comment on above: Performed By: #### C BC #### [facility] [address] [place] [address] Dr. Loyd Parks LYMPH # 1.4 103/ul Normal 1.2-3.8 [facility] Comment on above: Performed By: #### C BC #### [facility] [address] [place] [address] Dr. Loyd Parks Lymphocytes/100 WBC (Bld) 14.1 % Critically low 20.5-60.0 [facility] Comment on above: Performed By: #### C BC #### [facility] [address] [place] [address] Dr. Loyd Parks MANUAL DIFF REQ NO Normal [facility] Comment on above: Performed By: #### C BC #### [facility] [address] [place] [address] Dr. Loyd Parks MCH (RBC) [Entitic mass] 31.6 pg Normal 25.9-34.0 [facility] Comment on above: Performed By: #### C BC #### [facility] [address] [place] [address] Dr. Loyd Parks MCHC (RBC) [Mass/Vol] 33.0 g/dL Normal 29.9-35.2 [facility] Comment on above: Performed By: #### C BC #### [facility] [address] [place] [address] Dr. Loyd Parks MCV (RBC) [Entitic vol] 95.7 fL Critically high 80.0-94.0 [facility] Comment on above: Performed By: #### C BC #### [facility] [address] [address] [address] Loyd Parks MONO # 1.0 103/ul Critically high 0.3-0.8 [facility] Comment on above: Performed By: #### C BC #### [facility] [address] [address] [address] Loyd Parks Monocytes/100 WBC (Bld) 9.7 % Normal 1.7-12.0 [facility] Comment on above: Performed By: #### C BC #### [facility] [address] [place] [address] Dr. Loyd Parks NEUT # 7.2 103/ul Critically high 1.4-6.5 [facility] Comment on above: Performed By: #### C BC #### [facility] [address] [place] [address] Dr. Loyd Parks Neutrophils/100 WBC (Bld) 70.3 % Normal 43.0-75.0 [facility] Comment on above: Performed By: #### C BC #### [facility] [address] [place] [address] Dr. Loyd Parks Platelet mean volume (Bld) [Entitic vol] 10.8 fL Normal 9.5-13.5 [facility] Comment on above: Performed By: #### C BC #### [facility] [address] [place] [address] Dr. Loyd Parks PLT 199 103/ul Normal 150-450 [facility] Comment on above: Performed By: #### C BC #### [facility] [address] [place] [address] Dr. Loyd Parks RBC 4.15 106/ul Critically low 4.70-6.10 [facility] Comment on above: Performed By: #### C BC #### [facility] [address] [place] [address] Dr. Loyd Parks WBC 10.2 103/ul Normal 4.0-11.0 [facility] Comment on above: Performed By: #### C BC #### [facility] [address] [place] [address] Dr. Loyd Parks CULTURE BLOODon 07-27-2022 Microscopic examination of blood, culture Culture Observations: NO GROWTH AT 5 DAYS. Normal [facility] Comment on above: Performed By: #### E RUR #### [facility] [address] [place] [address] Dr. Loyd Parks Covid-19 PCR ([facility])on SARS-CoV-2 (COVID-19) RNA SAUNDRA+probe Ql (Unsp spec) Not detected Normal NOT DETECTED [facility] Comment on above: Result Comment: This test is not yet approved or cleared by the [place] FDA. When there are no FDA-approved or cleared tests available, and other criteria are met, FDA can make tests available under an emergency access mechanism called an Emergency Use Authorization (EUA). The EUA for this test is supported by the [place] of Health and Human Service's (HHS's) declaration [...] SARS-CoV-2. Performed By: #### E RUR #### [facility] [address] [place] [address] Dr. Loyd Parks LACTATE/LACTIC ACIDon 2022 Lactate [Moles/Vol] 2.2 mmol/L Critically high 0.4-2.0 [facility] Comment on above: Performed By: #### C MP, BNP, CMADM #### [facility] [address] [place] [address] Dr. Loyd Parks PROF 14(COMP METB)on 023 Albumin [Mass/Vol] 3.3 g/dL Critically low 3.4-5.0 [facility] Comment on above: Performed By: #### C MP, BNP, CMADM #### [facility] [address] [address] [address] Loyd Parks Albumin/Globulin [Mass ratio] 0.9 {ratio} Normal [facility] Comment on above: Performed By: #### C MP, BNP, CMADM #### [facility] [address] [address] [address] Loyd Parks ALP [Catalytic activity/Vol] 91 U/L Normal 46-116 [facility] Comment on above: Performed By: #### C MP, BNP, CMADM #### [facility] [address] [place] [address] Dr. Loyd Parks ALT [Catalytic activity/Vol] 18 U/L Normal 16-63 [facility] Comment on above: Performed By: #### C MP, BNP, CMADM #### [facility] [address] [place] [address] Dr. Loyd Parks Anion gap [Moles/Vol] 12.2 mmol/L Normal [facility] Comment on above: Performed By: #### C MP, BNP, CMADM #### [facility] [address] [place] [address] Dr. Loyd Parks AST [Catalytic activity/Vol] 15 U/L Normal 15-37 [facility] Comment on above: Performed By: #### C MP, BNP, CMADM #### [facility] [address] [place] [address] Dr. Loyd Parks Bilirubin [Mass/Vol] 0.4 mg/dL Normal 0.2-1.0 [facility] Comment on above: Performed By: #### C MP, BNP, CMADM #### [facility] [address] [place] [address] Dr. Loyd Parks Calcium [Mass/Vol] 8.7 mg/dL Normal 8.5-10.1 [facility] Comment on above: Performed By: #### C MP, BNP, CMADM #### [facility] [address] [address] [address] Loyd Parks Chloride [Moles/Vol] 105 mmol/L Normal 98-107 [facility] Comment on above: Performed By: #### C MP, BNP, CMADM #### [facility] [address] [address] [address] Loyd Parks CO2 [Moles/Vol] 28.0 mmol/L Normal 21.0-32.0 [facility] Comment on above: Performed By: #### C MP, BNP, CMADM #### [facility] [address] [address] [address] Loyd Parks Creatinine [Mass/Vol] 2.25 mg/dL Critically high 0.70-1.30 [facility] Comment on above: Performed By: #### C MP, BNP, CMADM #### [facility] [address] [address] [address] Loyd Parks EGFR-AF BRUNEIAN 34 mL/min/1.73m2 Critically low >=60 [facility] Comment on above: Performed By: #### C MP, BNP, CMADM #### [facility] [address] [address] [address] Loyd Parks EGFR-NON AF BRUNEIAN 28 mL/min/1.73m2 Critically low >=60 [facility] Comment on above: Performed By: #### C MP, BNP, CMADM #### [facility] [address] [address] [address] Loyd Parks Globulin (S) [Mass/Vol] 3.8 g/dL Normal [facility] Comment on above: Performed By: #### C MP, BNP, CMADM #### [facility] [address] [address] [address] Loyd Parks Glucose [Mass/Vol] 88 mg/dL Normal 74-106 [facility] Comment on above: Performed By: #### C MP, BNP, CMADM #### [facility] [address] [address] [address] Loyd Parks Potassium [Moles/Vol] 4.2 mmol/L Normal 3.5-5.1 [facility] Comment on above: Performed By: #### C MP, BNP, CMADM #### [facility] [address] [place] [address] Dr. Loyd Parks Protein [Mass/Vol] 7.1 g/dL Normal 6.4-8.2 [facility] Comment on above: Performed By: #### C MP, BNP, CMADM #### [facility] [address] [address] [address] Loyd Parks Sodium [Moles/Vol] 141 mmol/L Normal 136-145 [facility] Comment on above: Performed By: #### C MP, BNP, CMADM #### [facility] [address] [place] [address] Dr. Loyd Parks Urea nitrogen [Mass/Vol] 36.0 mg/dL Critically high 7.0-18.0 [facility] Comment on above: Performed By: #### C MP, BNP, CMADM #### [facility] [address] [place] [address] Dr. Loyd Parks Urea nitrogen/Creatinin e [Mass ratio] 16.0 mg/mg Normal [facility] Comment on above: Performed By: #### C MP, BNP, CMADM #### [facility] [address] [place] [address] Dr. Loyd Parks PROTIMEon 07-27-2022 INR Coag (PPP) [Relative time] 0.95 {INR} Normal [facility] Comment on above: Performed By: #### P T, PTT #### [facility] [address] [place] [address] Dr. Loyd Parks INR GUIDELINES SEE BELOW Normal [facility] Comment on above: Result Comment: MARIE RED INR: 2.0 - 3.0 CONDITIONS NOT LISTED BELOW 2.5 - 3.5 FOR PROSTHETIC HEART VALVE REPLACEMENT 2.5 - 3.5 RECURRENT THROMBOSIS Performed By: #### P T, PTT #### [facility] [address] [place] [address] Dr. Loyd Parks PT Coag (PPP) [Time] 10.1 s Normal 9.0-11.6 [facility] Comment on above: Performed By: #### P T, PTT #### [facility] [address] [place] [address] Dr. Loyd Parks PTTon 07-27-2022 aPTT Coag (Bld) [Time] 27.3 s Normal 22.3-36.2 [facility] Comment on above: Performed By: #### P T, PTT #### [facility] [address] [place] [address] Dr. Loyd Parks SYMPTOMATIC COVID-19 ANTIGEN on 07-27-2022 EUA Statement SEE BELOW Normal [facility] Comment on above: Result Comment: [...] sooner. Performed By: #### C VDAGS #### [facility] [address] [place] [address] Dr. Loyd Parks SARS-CoV-2 (COVID-19) RNA SAUNDRA+probe Ql (Unsp spec) Negative Normal NEGATIVE [facility] Comment on above: Performed By: #### C VDAGS #### [facility] [address] [place], [place] [id number] Dr. Loyd Parks XR CHEST 2 Von [...] ELIUD KAUR Date: 2022-07-26 22:19 Normal [facility] POINT OF CARE GLUCOSEon 01-2 Glucose [Mass/Vol] 102 mg/dL Normal 74-106 [facility] Comment on above: Performed By: #### C MP, BNP, CMADM #### [facility] [address] [place] [address] Dr. Loyd Parks ER URINE PROFILEon Bilirubin Ql (U) Negative Normal NEGATIVE [facility] Comment on above: Performed By: #### E RUR #### [facility] [address] [place] [address] Dr. Loyd Parks Clarity (U) CLEAR Normal CLEAR [facility] Comment on above: Performed By: #### E RUR #### [facility] [address] [place] [address] Dr. Loyd Parks Color (U) LT. YELLOW Normal YELLOW [facility] Comment on above: Performed By: #### E RUR #### [facility] [address] [place] [address] Dr. Loyd CONWAY A micrscopic examination will be performed if indicated. Normal [facility] Comment on above: Performed By: #### E RUR #### [facility] [address] [place] [address] Dr. Loyd Parks Glucose Ql (U) 100 mg/dl Abnormal NEGATIVE [facility] Comment on above: Performed By: #### E RUR #### [facility] [address] [place] [address] Dr. Loyd Parks Hemoglobin Ql (U) Negative Normal NEGATIVE [facility] Comment on above: Performed By: #### E RUR #### [facility] [address] [place] [address] Dr. Loyd Parks Ketones Ql (U) Negative Normal NEGATIVE [facility] Comment on above: Performed By: #### E RUR #### [facility] [address] [place], [place] [id number] Dr. Loyd Parks LEUKOCYTES Negative Normal NEGATIVE [facility] Comment on above: Performed By: #### E RUR #### [facility] [address] [place] [address] Dr. Loyd Parks Nitrite Ql (U) Negative Normal NEGATIVE [facility] Comment on above: Performed By: #### E RUR #### [facility] [address] [place] [address] Dr. Loyd Parks pH (U) 5.5 [pH] Normal 5-9 [facility] Comment on above: Performed By: #### E RUR #### [facility] [address] [place] [address] Dr. Loyd Parks SPEC GRAVITY 1.015 Normal 1.005-<=1.025 [facility] Comment on above: Performed By: #### E RUR #### [facility] [address] [place] [address] Dr. Loyd Parks UA PROTEIN Negative Normal NEGATIVE/ TRACE [facility] Comment on above: Performed By: #### E RUR #### [facility] [address] [place] [address] Dr. Loyd Parks UR MICRO IND NOT INDICATED Normal [facility] Comment on above: Performed By: #### E RUR #### [facility] [address] [place] [address] Dr. Loyd Parks Urobilinogen Qn (U) 0.2 {Malcolm'U}/dL Normal 0.2 - 1.0 [facility] Comment on above: Performed By: #### E RUR #### [facility] [address] [place] [address] Dr. Loyd Parks GROUP A STREP CULTUREon 02-21 S. pyogenes Ag Ql (Unsp spec) Culture Observations: NEGATIVE FOR GROUP A STREPTOCOCCUS. Normal [facility] Comment on above: Performed By: #### S SCRN, GRASTCX #### [facility] [address] [place] [address] Dr. Loyd Parks STREPT SCREENon 03-03-2022 STREP SCREEN A Negative Normal NEGATIVE [facility] Comment on above: Performed By: #### S SCRN, GRASTCX #### [facility] [address] [place], [place] [address] Dr. Loyd Parks Covid-[address]on SARS-CoV-2 (COVID-19) RNA SAUNDRA+probe Ql (Unsp spec) Not detected Normal NOT DETECTED [facility] Comment on above: Result Comment: This test is not yet approved or cleared by the [place] FDA. When there are no FDA-approved or cleared tests available, and other criteria are met, FDA can make tests available under an emergency access mechanism called an Emergency Use Authorization (EUA). The EUA for this test is supported by the Pharmacy Order Entry Technician of Health and Human Service's (HHS's) [...] By: #### C MP, BNP, CMADM #### [facility] [address] [place], [place] [address] Dr. Loyd Parks POINT OF CARE GLUCOSEon 12-22 Glucose [Mass/Vol] 133 mg/dL Critically high 74-106 [facility] Comment on above: Performed By: #### E RUR #### [facility] [address] [place], [place] [address] Dr. Loyd Parks POINT OF CARE GLUCOSEon Glucose [Mass/Vol] 75 mg/dL Normal 74-106 [facility] Comment on above: Performed By: #### E RUR #### [facility] [address] [place], [place] [address] ABD/PELVIS WO CONon [...] 4. Colonic diverticulosis. Electronically authenticated by: SAURABH JORGE LUISDEMARCUS Date: 2021-09-03 08:35 Normal [facility] ER URINE PROFILEon 2 Bilirubin Ql (U) Negative Normal NEGATIVE The [facility] Comment on above: Performed By: #### E RUR #### [facility] [address] [place] [address] Dr. Loyd Parks Clarity (U) CLEAR Normal CLEAR [facility] Comment on above: Performed By: #### E RUR #### [facility] [address] [place] [address] Dr. Loyd Parks Color (U) LT. YELLOW Normal YELLOW [facility] Comment on above: Performed By: #### E RUR #### [facility] [address] [place] [address] Dr. Loyd CONWAY A micrscopic examination will be performed if indicated. Normal [facility] Comment on above: Performed By: #### E RUR #### [facility] [address] [place] [address] Dr. Loyd Parks Glucose Ql (U) >1000 Abnormal NEGATIVE [facility] Comment on above: Performed By: #### E RUR #### [facility] [address] [place] [address] Dr. Loyd Parks Hemoglobin Ql (U) Negative Normal NEGATIVE The [facility] Comment on above: Performed By: #### E RUR #### [facility] [address] [place] [address] Dr. Loyd Parks Ketones Ql (U) Negative Normal NEGATIVE [facility] Comment on above: Performed By: #### E RUR #### [facility] [address] [place] [address] Dr. Loyd Parks LEUKOCYTES Negative Normal NEGATIVE [facility] Comment on above: Performed By: #### E RUR #### [facility] [address] [place] [address] Dr. Loyd Parks Nitrite Ql (U) Negative Normal NEGATIVE [facility] Comment on above: Performed By: #### E RUR #### [facility] [address] [place] [address] [address] Loyd Parks pH (U) 6.0 [pH] Normal 5-9 [facility] Comment on above: Performed By: #### E RUR #### [facility] [address] [place] [address] Dr. Loyd Parks SPEC GRAVITY 1.010 Normal 1.005-<=1.025 [facility] Comment on above: Performed By: #### E RUR #### [facility] [address] [place] [address] Dr. Loyd Parks UA PROTEIN Negative Normal NEGATIVE/ TRACE [facility] Comment on above: Performed By: #### E RUR #### [facility] [address] [place] [address] Dr. Loyd Parks UR MICRO IND NOT INDICATED Normal [facility] Comment on above: Performed By: #### E RUR #### [facility] [address] [place] [address] Dr. Loyd Parks Urobilinogen Qn (U) 0.2 {Malcolm'U}/dL Normal 0.2 - 1.0 [facility] Comment on above: Performed By: #### E RUR #### [facility] [address] [place] [address] Dr. Loyd Parks ALCOHOLon 07-31-2020 Ethanol [Mass/Vol] mg/dL Normal [facility] Comment on above: Result Comment: FOR MEDICAL USE ONLY. . REF VALUES <10 Performed By: #### A LC ####[facility] [place] [address] CBC AND DIFFERENTIALon 07-31 % AUTOMATED IMMATURE GRAN 0.4 % Normal 0.0 - 0.9 [facility] Comment on above: Result Comment: Rylie ture Granulocyte Count (IG) includes promyelocytes, myelocytes and metamyelocytes but does not include bands. Percent differential counts (%) should be interpreted in the context of the absolute cell counts (cells/L). Performed By: #### C BCDF #### [facility] [address] [place] [address] Basophils (Bld) [#/Vol] 0.05 10*3/uL Normal 0.00 - 0.10 [facility] Comment on above: Performed By: #### C BCDF #### [facility] [address] [place] [address] Basophils/100 WBC (Bld) 0.6 % Normal 0.0 - 2.0 [facility] Comment on above: Performed By: #### C BCDF #### [facility] [address] [place] [address] Eosinophils (Bld) [#/Vol] 0.21 10*3/uL Normal 0.00 - 0.40 [facility] Comment on above: Performed By: #### C BCDF #### [facility] [id number] [place] [address] Eosinophils/100 WBC (Bld) 2.4 % Normal 0.0 - 6.0 [facility] Comment on above: Performed By: #### C BCDF #### [facility] [address] [place] [address] Erythrocyte distribution width (RBC) [Ratio] 13.2 % Normal 11.5 - 14.5 [facility] Comment on above: Performed By: #### C BCDF #### [facility] [id number] [place] [address] Hematocrit (Bld) [Volume fraction] 50.0 % Normal 41.0 - 52.0 [facility] Comment on above: Performed By: #### C BCDF #### [facility] [address] [place] [address] Hemoglobin (Bld) [Mass/Vol] 17.3 g/dL Normal 13.5 - 17.5 [facility] Comment on above: Performed By: #### C BCDF #### [facility] [address] [place] [address] Lymphocytes (Bld) [#/Vol] 1.59 10*3/uL Normal 0.80 - 3.00 [facility] Comment on above: Performed By: #### C BCDF #### [facility] [address] [place] [address] Lymphocytes/100 WBC (Bld) 17.9 % Normal 13.0 - 44.0 [facility] Comment on above: Performed By: #### C BCDF #### [facility] [address] [place] [address] MCHC (RBC) [Mass/Vol] 34.6 g/dL Normal 32.0 - 36.0 [facility] Comment on above: Performed By: #### C BCDF #### [facility] [address] [place] [address] MCV (RBC) [Entitic vol] 89 fL Normal 80 - 100 [facility] Comment on above: Performed By: #### C BCDF #### [facility] [id number] [place] [address] Monocytes (Bld) [#/Vol] 0.82 10*3/uL High 0.05 - 0.80 [facility] Comment on above: Performed By: #### C BCDF #### [facility] [address] [place] [address] Monocytes/100 WBC (Bld) 9.2 % Normal 2.0 - 10.0 [facility] Comment on above: Performed By: #### C BCDF #### [facility] [id number] [place] [address] Neutrophils (Bld) [#/Vol] 6.18 10*3/uL High 1.60 - 5.50 [facility] Comment on above: Performed By: #### C BCDF #### [facility] [id number] [place] [address] Neutrophils/100 WBC (Bld) 69.5 % Normal 40.0 - 80.0 [facility] Comment on above: Performed By: #### C BCDF #### [facility] [id number] [place] [address] Platelets (Bld) [#/Vol] 215 10*3/uL Normal 150 - 450 [facility] Comment on above: Performed By: #### C BCDF #### [facility] [address] [place] [address] RBC 5.59 x10E12/L Normal 4.50 - 5.90 [facility] Comment on above: Performed By: #### C BCDF #### [facility] [address] [place] [address] WBC (Bld) [#/Vol] 8.9 10*3/uL Normal 4.4 - 11.3 [facility] Comment on above: Performed By: #### C BCDF #### [facility] [address] [place] [address] CHEST 1 VIEWon 07-31-2020 CHEST 1 VIEW STUDY: Chest Radiograph; 07/30/2020 10:53 PM INDICATION: Shortness of breath. COMPARISON: None available. ACCESSION NUMBER(S): [id number] ORDERING CLINICIAN: ZAID CUELLAR DO TECHNIQUE: Frontal chest was obtained at 2355 hours. FINDINGS: CARDIOMEDIASTINAL SILHOUETTE: Cardiomediastinal silhouette is normal in size and configuration. LUNGS: Lungs are clear. ABDOMEN: No remarkable upper abdominal findings. BONES: No acute osseous changes. IMPRESSION: No acute pulmonary abnormality. Signed by Rodrick Anna MD Electronically signed by: RODRICK ANNA MD Normal [facility] COMPREHENSIVE PANELon 2020 Albumin [Mass/Vol] 3.7 g/dL Normal 3.4 - 5.0 [facility] Comment on above: Performed By: #### C MP ####[facility] [place] [address] ALP [Catalytic activity/Vol] 80 U/L Normal 33 - 136 [facility] Comment on above: Performed By: #### C MP ####[facility] [place] [address] ALT [Catalytic activity/Vol] 12 U/L Normal 10 - 52 [facility] Comment on above: Result Comment: Jade ents treated with Sulfasalazine may generate falsely decreased results for ALT. Performed By: #### C MP ####[facility] [place] [address] Anion gap [Moles/Vol] 13 mmol/L Normal 10 - 20 [facility] Comment on above: Performed By: #### C MP ####[facility] [place] [address] AST [Catalytic activity/Vol] 12 U/L Normal 9 - 39 [facility] Comment on above: Performed By: #### C MP ####[facility] [place] [address] Bilirubin [Mass/Vol] 0.7 mg/dL Normal 0.0 - 1.2 [facility] Comment on above: Performed By: #### C MP ####[facility] [place] [address] Calcium [Mass/Vol] 9.2 mg/dL Normal 8.6 - 10.3 [facility] Comment on above: Performed By: #### C MP ####[facility] [place] [address] Chloride [Moles/Vol] 101 mmol/L Normal 98 - 107 [facility] Comment on above: Performed By: #### C MP ####[facility] [place] [address] Creatinine [Mass/Vol] 1.36 mg/dL High 0.50 - 1.30 [facility] Comment on above: Performed By: #### C MP ####[facility] [facility] [place] [address] GFR- AM. 61 mL/min/1.73m2 Normal >60 [facility] Comment on above: Result Comment: CALC ULATIONS OF ESTIMATED GFR ARE PERFORMED USING THE MDRD STUDY EQUATION FOR THE IDMS-TRACEABLE CREATININE METHODS. CLIN CHEM 2007;53:766-72 Performed By: #### C MP ####[facility] [place] [address] GFR-NON AM. 50 mL/min/1.73m2 Abnormal >60 [facility] Comment on above: Performed By: #### C MP ####[facility] [place] [address] Glucose [Mass/Vol] 390 mg/dL High 74 - 99 [facility] Comment on above: Performed By: #### C MP ####[facility] [place] [address] HCO3 (Bld) [Moles/Vol] 27 mmol/L Normal 21 - 32 [facility] Comment on above: Performed By: #### C MP ####[facility] [place] [address] Potassium [Moles/Vol] 4.1 mmol/L Normal 3.5 - 5.3 [facility] Comment on above: Performed By: #### C MP ####[facility] [place] [address] Protein [Mass/Vol] 6.8 g/dL Normal 6.4 - 8.2 [facility] Comment on above: Performed By: #### C MP ####[facility] [place] [address] Sodium [Moles/Vol] 137 mmol/L Normal 136 - 145 [facility] Comment on above: Performed By: #### C MP ####[facility] [place] [address] Urea nitrogen [Mass/Vol] 27 mg/dL High 6 - 23 [facility] Comment on above: Performed By: #### C MP ####[facility] [place] [address] CT HEAD WO CONTRASTon 2020 CT HEAD WO CONTRAST STUDY: CT Head without IV Contrast; 07/30/2020, 11:52 PM. INDICATION: Confusion, disorientation. COMPARISON: None Available. ACCESSION NUMBER(S): [id number] ORDERING CLINICIAN: ZAID CUELLAR DO TECHNIQUE: Noncontrast [...] signed by: RODRICK ANNA MD Normal [facility] MAGNESIUMon 07-31-2020 Magnesium [Mass/Vol] 2.04 mg/dL Normal 1.60 - 2.40 [facility] Comment on above: Performed By: #### M G #### [facility] [address] [place] [address] PT/INRon 07-31-2020 PT Coag (PPP) [Time] 12.0 s Normal 10.1 - 13.3 [facility] Comment on above: Performed By: #### P TINR #### [facility] [address] [place] [address] PT, INR 1.0 Normal 0.9 - 1.1 [facility] Comment on above: Performed By: #### P TINR #### [facility] [address] [place] [address] Provider Note - ED v2on 07-22 Provider Note - ED v2 Provider Note - ED v2: Chart Review: ED NOTES ED NOTES: History: This is an 80-year-old male presenting from the [facility] by [facility] for chief complaint of a medical evaluation. Patient left his home in [place] 3 days ago because he got into [...] Triage - ED 30-Jul-2020 23:17 Normal [facility] Risk Screen - Adult Emergenc [...] instruction; written material Cultural Considerationsnone Developmental Considerationsnone Buddhism Considerationsnone Learning Assessment (Other Learner): Learning Assessment (Other Learner): Other learner availableno Pressure Injury/TB/Substance: Pressure Injury: Do you have a coughno Substance Use Current or Former Historynever: Cigarette/Tobacco, e-Cigarette/Vaping, Alcohol, Street Drugs Admission Risk Screen: Significant IndicatorsComplete CAGE: CAGE: Is this an injured patient at a Trauma Center ([facility]/[place]): no Electronic Signatures: Elizabeth Ivan (RN) (Signed 30-Jul-2020 23:24) Authored: Preferred Language, Advanced Directives, Family Violence Adult, Learning Assessment (Patient), Learning Assessment (Other Learner), Pressure Injury/TB/Substance, Pressure Injury, CAGE Last Updated: 30-Jul-2020 23:24 by Elizabeth Ivan (RN) Normal [facility] TROPONIN Ion 07-31-2020 Troponin I.cardiac [Mass/Vol] ng/mL Normal 0.00 - 0.03 [facility] Comment on above: Result Comment: [...] is performed using different testing methodology at [facility] than at other [facility]. Direct result comparisons should only be made within the same method. Performed By: #### T ROP2 #### [facility] [address] [place] [address] Triage - EDon 07-31-2020 Triage - ED [...] Agency: City Agency Name: Monica Accompanied By: make up man Language: Spoken Language Preferred: Belarusian Reading Language Preferred: Belarusian CHIEF COMPLAINT NAT MOORE is a Male [...] Updated: 30-Jul-2020 23:23 by Elizabeth Ivan (MIGUEL) [facility] 07-31-2020 RBC 1 /HPF Normal 0-5 [facility] Comment on above: Performed By: #### U AMIC #### [facility] [address] [place] [address] SQUAMOUS EPITH. CELLS <1 Normal [facility] Comment on above: Performed By: #### U AMIC #### [facility] [address] [place] [address] WBC 22 /HPF Abnormal 0-5 [facility] Comment on above: Performed By: #### U AMIC #### [facility] [address] [place] [address] URINALYSISon 07-31-2020 Appearance (U) CLEAR Normal CLEAR [facility] Comment on above: Performed By: #### U A #### [facility] [address] [place] [address] Bilirubin Ql (U) Negative Normal NEGATIVE [facility] Comment on above: Performed By: #### U A #### [facility] [address] [place] [address] Color (U) STRAW Normal STRAW,YELLOW [facility] Comment on above: Performed By: #### U A #### [facility] [address] [place] [address] Glucose Ql (U) >=500(3+) Abnormal NEGATIVE [facility] Comment on above: Performed By: #### U A #### [facility] [address] [place] [address] Hemoglobin Ql (U) SMALL(1+) Abnormal NEGATIVE [facility] Comment on above: Performed By: #### U A #### [facility] [address] [place] [address] Ketones Ql (U) Negative Normal NEGATIVE [facility] Comment on above: Performed By: #### U A #### [facility] [address] [place] [address] Leukocyte esterase Test strip Ql (U) TRACE Abnormal NEGATIVE [facility] Comment on above: Performed By: #### U A #### [facility] [address] [place] [address] Nitrite Ql (U) Negative Normal NEGATIVE [facility] Comment on above: Performed By: #### U A #### [facility] [address] [place] [id number] pH (U) 6.0 [pH] Normal 5.0 - 8.0 [facility] Comment on above: Performed By: #### U A #### [facility] [address] [place] [id number] Protein Ql (U) 100(2+) Abnormal NEGATIVE [facility] Comment on above: Performed By: #### U A #### [facility] [address] [place] [address] Specific gravity (U) [Rel density] 1.025 Normal 1.005 - 1.035 [facility] Comment on above: Performed By: #### U A #### [facility] [address] [place] [address] Urobilinogen (U) [Mass/Vol] mg/dL Normal 0.0 - 1.9 [facility] Comment on above: Performed By: #### U A #### [facility] [address] [place] [address] Vital Signs Date Time Vital Sign Value Performing Clinician Facility 04-02-2024 15:13-0500 Diastolic blood pressure 69 mm[Hg] Bong[employer] DO Work Phone: [facility] 04-02-2024 15:13-0500 Systolic blood pressure 137 mm[Hg] [employer] DO Work Phone: [facility] 03-26-2024 14:55-0500 Body temperature 97.39 [degF] Analyze Reng DO Work Phone: [facility] [employer] [facility] 03-26-2024 14:55-0500 Body weight 112.04 kg Bong [employer] DO Work Phone: [facility] 03-26-2024 14:55-0500 Diastolic blood pressure 85 mm[Hg] Bong [employer] DO Work Phone: [facility] 03-26-2024 14:55-0500 Heart rate 64 /min Bong Furlong DO Work Phone: [facility] [employer] [facility] 03-26-2024 14:55-0500 Respiratory rate 18 /min Bong Furlong DO Work Phone: [facility] [employer] [facility] 03-26-2024 14:55-0500 SaO2% (BldA) [Mass fraction] 96 % Bong Furlong DO Work Phone: [facility] 03-26-2024 14:55-0500 Systolic blood pressure 136 mm[Hg] Bong Furlong DO Work Phone: [facility] 02-24-2024 21:56-0500 Diastolic blood pressure 108 mm[Hg] Bong Furlong DO Work Phone: [facility] [employer] [facility] 02-24-2024 21:56-0500 Systolic blood pressure 171 mm[Hg] Bong Furlong DO Work Phone: [facility] 02-20-2024 11:41-0500 Body temperature 96.6 [degF] Bong Furlong DO Work Phone: [facility] 02-20-2024 11:41-0500 Body weight 111.22 kg Bong Furlong DO Work Phone: [facility] [employer] [facility] 02-20-2024 11:41-0500 Diastolic blood pressure 69 mm[Hg] Bong Furlong DO Work Phone: [facility] [employer] [facility] 02-20-2024 11:41-0500 Heart rate 60 /min Bong Furlong DO Work Phone: [facility] 02-20-2024 11:41-0500 Respiratory rate 18 /min Bong Furlong DO Work Phone: [facility] 02-20-2024 11:41-0500 SaO2% (BldA) [Mass fraction] 99 % Bong Furlong DO Work Phone: [facility] [employer] [facility] 02-20-2024 11:41-0500 Systolic blood pressure 131 mm[Hg] Bong Carterlong DO Work Phone: [facility] [employer] 02-06-2024 20:57-0500 Body temperature 97.39 [degF] Bong Carterlong DO Work Phone: [facility] [employer] 02-06-2024 20:57-0500 Body weight 111.13 kg Bong Raullong DO Work Phone: [facility] [employer] [facility] 02-06-2024 20:57-0500 Diastolic blood pressure 60 mm[Hg] Bong Raullong DO Work Phone: [facility] [employer] [facility] 02-06-2024 20:57-0500 Heart rate 65 /min Bong RaulTrusted [employer]ng DO Work Phone: [facility] [employer] [facility] 02-06-2024 20:57-0500 Respiratory rate 17 /min Bong CarterTrusted Opinionng DO Work Phone: [facility] [employer] 02-06-2024 20:57-0500 SaO2% (BldA) [Mass fraction] 97 % Bong CarterTrusted Opinionng DO Work Phone: [facility] [employer] 02-06-2024 20:57-0500 Systolic blood pressure 165 mm[Hg] Bong CarterTrusted Opinionng DO Work Phone: [facility] 01-29-2024 13:02-0500 Body height 172.7 cm Perla Aguila [employer] Work Phone: [facility] 01-29-2024 13:02-0500 Body mass index (BMI) [Ratio] 37.71 kg/m2 Perla Aguila [employer]PER[employer] Work Phone: [facility] 01-29-2024 13:02-0500 Body temperature 97.81 [degF] Perla Aguila SUPER[employer] Work Phone: [facility] 01-29-2024 13:02-0500 Body weight 112.49 kg Perla Aguila [employer]PER[employer] Work Phone: [facility] 01-29-2024 13:02-0500 Diastolic blood pressure 70 mm[Hg] Perla Aguila SUPER[employer] Work Phone: [facility] 01-29-2024 13:02-0500 Heart rate 74 /min Perla Aguila SUPER[employer] Work Phone: [facility] 01-29-2024 13:02-0500 SaO2% (BldA) [Mass fraction] 95 % Perla Aguila SUPER[employer] Work Phone: [facility] 01-29-2024 13:02-0500 Systolic blood pressure 128 mm[Hg] Perla Aguila SUPER[employer] Work Phone: [facility] 01-08-2024 14:17-0400 Body height 172.7 cm Darcy Sandoval [employer] Work Phone: [facility] 01-08-2024 14:17-0400 Body mass index (BMI) [Ratio] 37.56 kg/m2 Darcy Sandoval [employer] Work Phone: [facility] 01-08-2024 14:17-0400 Body weight 112.04 kg Darcy Sandoval [employer] Work Phone: [facility] 01-08-2024 14:17-0400 Diastolic blood pressure 84 mm[Hg] Darcy Sandoval [employer] Work Phone: [facility] 01-08-2024 14:17-0400 Heart rate 92 /min Darcy Sandoval [employer] Work Phone: [facility] 01-08-2024 14:17-0400 SaO2% (BldA) [Mass fraction] 98 % Darcy Sandoval [employer] Work Phone: [facility] 01-08-2024 14:17-0400 Systolic blood pressure 124 mm[Hg] Darcy Sandoval [employer] Work Phone: [facility] 12-25-2023 14:28-0400 Body height 172.7 cm Darcy Sandoval [employer] Work Phone: [facility] 12-25-2023 14:28-0400 Body mass index (BMI) [Ratio] 38.32 kg/m2 Darcy Sandoval [employer] Work Phone: [facility] 12-25-2023 14:28-0400 Body weight 114.31 kg Darcy Sandoval [employer] Work Phone: [facility] 12-25-2023 14:28-0400 Diastolic blood pressure 68 mm[Hg] Darcy Lori [employer] Work Phone: [facility] 12-25-2023 14:28-0400 Heart rate 88 /min Darcy Sandoval [employer] Work Phone: [facility] 12-25-2023 14:28-0400 SaO2% (BldA) [Mass fraction] 97 % Darcy Sandoval [employer] Work Phone: [facility] 12-25-2023 14:28-0400 Systolic blood pressure 128 mm[Hg] Darcy Lori [employer] Work Phone: [facility] 11-13-2023 14:18-0400 Body mass index (BMI) [Ratio] 41.17 kg/m2 Darcylenny Sandoval [employer] Work Phone: [facility] 11-13-2023 14:18-0400 Body weight 122.83 kg Darcy Lori [employer] Work Phone: [facility] 11-13-2023 14:18-0400 Diastolic blood pressure 75 mm[Hg] Darcy Lori [employer] Work Phone: [facility] 11-13-2023 14:18-0400 Heart rate 59 /min Darcy Sandoval [employer] Work Phone: [facility] 11-13-2023 14:18-0400 SaO2% (BldA) [Mass fraction] 98 % Darcy [place] [employer] Work Phone: [facility] 11-13-2023 14:18-0400 Systolic blood pressure 125 mm[Hg] Darcy Lori [employer] Work Phone: [facility] 09-16-2022 14:48-0400 Blood Pressure Location Umer ERIK [facility] 09-16-2022 14:48-0400 Diastolic blood pressure 74 mm[Hg] Umer VALENCIA [facility] 09-16-2022 14:48-0400 Heart rate 70 /min Umer VAELNCIA [facility] 09-16-2022 14:48-0400 Respiratory rate 16 /min Umer VALENCIA [facility] 09-16-2022 14:48-0400 Systolic blood pressure 130 mm[Hg] Umer VALENCIA [facility] 04-26-2022 11:04-0500 Blood Pressure Location Umer VALENCIA [facility] 04-26-2022 11:04-0500 Diastolic blood pressure 78 mm[Hg] Umer VALENCIA [facility] 04-26-2022 11:04-0500 Heart rate 62 /min Umer VALENCIA [facility] 04-26-2022 11:04-0500 Respiratory rate 16 /min Umer VALENCIA [facility] 04-26-2022 11:04-0500 Systolic blood pressure 134 mm[Hg] Umer VALENCIA [facility] 12-03-2021 13:08-0400 Blood Pressure Location Umer VALENCIA [facility] 12-03-2021 13:08-0400 Diastolic blood pressure 70 mm[Hg] Umer VALENCIA [facility] 12-03-2021 13:08-0400 Heart rate 65 /min Umer VALENCIA [facility] 12-03-2021 13:08-0400 Respiratory rate 16 /min Umer VALENCIA [facility] 12-03-2021 13:08-0400 Systolic blood pressure 109 mm[Hg] Umer VALENCIA [facility] 09-03-2021 13:39-0400 Blood Pressure Location Umer OpenWhere [facility] 09-03-2021 13:39-0400 Diastolic blood pressure 67 mm[Hg] Umer VALENCIA [facility] 09-03-2021 13:39-0400 Heart rate 68 /min Umer [facility] 09-03-2021 13:39-0400 Respiratory rate 16 /min Umer [facility] 09-03-2021 13:39-0400 Systolic blood pressure 102 mm[Hg] Umer [facility] Encounters Encounter Date Encounter Type Care Provider Facility Start: 04-02-2024 End: 04-02-2024 ambulatory Bong Cartermerlyntammy Work Phone: [facility] Comment on above: Hypertension associa dustin with 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 ([facility]) (Primary Dx); Dementia without behavioral disturbance, psychotic disturbance, mood disturbance, or anxiety, unspecified dementia severity, unspecified dementia type (CMS-HCC); Benign prostatic hyperplasia with lower urinary tract symptoms, symptom details unspecified; Hypernatremia Start: 03-26-2024 End: 03-26-2024 ambulatory Bong Acosta DO Work Phone: [facility] Comment on above: Hypertension associa dustin with 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 (CMS-HCC) (Primary Dx); Hypernatremia; Other hyperlipidemia; Hypokalemia Start: 03-04-2024 End: 03-11-2024 Telephone encounter Tommy Gabriel DPM Work Phone: [facility] Start: 02-24-2024 End: 02-29-2024 ambulatory Bong Acosta DO Work Phone: [facility] Comment on above: Dementia without beh avioral disturbance, psychotic disturbance, mood disturbance, or anxiety, unspecified dementia severity, unspecified dementia type (CMS-HCC) (Primary Dx); Hypertension associated with 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 (CMS-HCC); Falls, subsequent encounter Start: 02-20-2024 End: 02-20-2024 ambulatory Bong Acosta DO Work Phone: [facility] Comment on above: Dementia without beh avioral disturbance, psychotic disturbance, mood disturbance, or anxiety, unspecified dementia severity, unspecified dementia type (CMS-HCC) (Primary Dx); Falls, subsequent encounter; Hypertension associated with 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 (CMS-HCC); Back pain, unspecified back location, unspecified back pain laterality, unspecified chronicity Start: 02-10-2024 End: 02-10-2024 ambulatory Marianela X Orbrittney Facility:[facility] Start: 02-10-2024 End: 02-10-2024 Patient encounter procedure Marianela X Orbrittney [facility] Start: 02-06-2024 End: 02-15-2024 ambulatory Bong Acosta DO [facility] Comment on above: Pneumonia due to inf ectious organism, unspecified laterality, unspecified part of lung (Primary Dx); Cellulitis of left lower extremity; Falls, subsequent encounter; Dementia without behavioral disturbance, psychotic disturbance, mood disturbance, or anxiety, unspecified dementia severity, unspecified dementia type ([facility]); Depression, unspecified depression type; Essential hypertension; Type 2 diabetes mellitus without complication, without long-term current use of insulin ([facility]) Start: 02-01-2024 End: 02-03-2024 Clinisync Result Encounter Generic External Data Provider [facility] Unsolicited Start: 02-01-2024 End: 02-03-2024 Clinisync Result Encounter Generic External Data Provider [facility] External [facility] Unsolicited Start: 01-29-2024 End: 01-29-2024 Bamboo flowsheet Perla Aguila [employer] Work Phone: [facility] Start: 01-29-2024 End: 01-29-2024 Bamboo flowsheet Perla Aguila [employer] Work Phone: [facility] Start: 01-29-2024 End: 01-29-2024 ambulatory PERLA AGUILA Not Available Start: 01-29-2024 End: 01-29-2024 Office outpatient visit 25 minutes Perla Aguila [employer] Work Phone: [facility] Comment on [...] 01-08-2024 End: 01-08-2024 Bamboo flowsheet Darcy Sandoval [employer] Work Phone: [facility] Start: 01-08-2024 End: 01-08-2024 Bamboo flowsheet Darcy Sandoval [employer] Work Phone: [facility] Start: 01-08-2024 End: 01-08-2024 Office outpatient visit 25 minutes Darcy Sandoval [employer] Work Phone: [facility] Comment on above: Edema, unspecified t ype (Primary Dx); Altered mental status, unspecified altered mental status type Start: 12-25-2023 End: 12-25-2023 Office outpatient visit 25 minutes Darcy Sandoval [employer] Work Phone: [facility] Comment on above: Localized edema (Leslee jazmine Dx); Acute cough Start: 12-25-2023 End: 12-25-2023 ambulatory DARCY SANDOVAL Not Available Start: 12-25-2023 End: 12-25-2023 Bamboo flowsheet Darcy Sandoval [employer] Work Phone: [facility] Start: 12-25-2023 End: 12-25-2023 Bamboo flowsheet Darcy Sandoval [employer] Work Phone: [facility] Start: 12-05-2023 End: 12-05-2023 Clinisync Result Encounter Darcy Sandoval [employer] Work Phone: [facility] Unsolicited Start: 12-05-2023 End: 12-05-2023 Clinisync Result Encounter Darcy Sandoval [employer] Work Phone: [facility] Unsolicited Start: 12-05-2023 End: 12-05-2023 ambulatory DARCY SANDOVAL [facility] Start: 11-30-2023 End: 11-30-2023 Clinisync Result Encounter Rene Anthony MD Work Phone: [facility] Unsolicited Start: 11-30-2023 End: 11-30-2023 Clinisync Result Encounter Rene Anthony MD Work Phone: [facility] Unsolicited Start: 11-30-2023 End: 11-30-2023 ambulatory RENE ANTHONY [facility] Start: 11-28-2023 End: 11-28-2023 Emergency department patient visit JUAN DAVID LUI [facility] Start: 11-21-2023 Evaluation and manag ement of inpatient SAM ZELAYA [facility] Start: 11-18-2023 Evaluation and manag ement of inpatient ART [facility] Start: 11-17-2023 Evaluation and manag ement of inpatient ART [facility] Start: 11-15-2023 Evaluation and manag ement of inpatient [facility] Start: 11-15-2023 Evaluation and manag ement of inpatient [facility] Start: 11-15-2023 [facility]: 11-15-2023 Evaluation and manag ement of inpatient [facility] Start: 11-15-2023 End: 11-15-2023 ambulatory UNKNOWN PROVIDER Facility:[facility] Start: 11-15-2023 End: 11-22-2023 Evaluation and management of inpatient CHAKA [facility] Start: 11-13-2023 End: 11-13-2023 Office outpatient visit 25 minutes Darcy Sandoval [employer] Work Phone: [facility] Comment on above: Bilateral lower extr emity edema (Primary Dx); Type 2 diabetes mellitus with diabetic nephropathy, without long-term current use of insulin ([facility]); Hypokalemia Start: 11-13-2023 End: 11-13-2023 ambulatory DARCY SANDOVAL Not Available Start: 11-13-2023 End: 11-13-2023 Bamboo flowsheet Darcy Sandoval [employer] Work Phone: [facility] Start: 11-13-2023 End: 11-13-2023 Bamboo flowsheet Darcy Sandoval [employer] Work Phone: [facility] Start: 11-11-2023 End: 11-11-2023 ambulatory Marianela Ingram Facility:[facility] Start: 11-11-2023 End: 11-11-2023 Patient encounter procedure Marianela X Orzech [facility] Start: 10-23-2023 End: 10-23-2023 ambulatory DARCY SANDOVAL Not Available Start: 10-14-2023 End: 10-14-2023 ambulatory Marianela X Orzech Facility:[facility] Start: 10-14-2023 End: 10-14-2023 Patient encounter procedure Marianela X Orzech [facility] Start: 10-09-2023 End: 10-09-2023 ambulatory TOMMY GABRIEL Not Available Start: 08-01-2023 End: 08-01-2023 ambulatory JUAN PABLO ALANIZ Not Available Start: 06-19-2023 End: 06-19-2023 ambulatory JUAN PABLO ALANIZ Not Available Start: 05-13-2023 End: 05-13-2023 ambulatory CAIT DUNHAM Facility:[facility] Start: 05-13-2023 End: 05-13-2023 Patient encounter procedure CAIT DUNHAM [facility] Start: 04-23-2023 End: 04-23-2023 ambulatory JUAN PABLO ALANIZ Not Available Start: 03-26-2023 End: 03-26-2023 ambulatory JUAN PABLO ALANIZ Not Available Start: 02-27-2023 End: 02-27-2023 ambulatory DARCY SANDOVAL Not Available Start: 09-16-2022 End: 09-16-2022 Patient encounter procedure Umer VALENCIA [facility] Start: 07-26-2022 End: 07-27-[address] JUAN PABLO ALANIZ Facility:[facility] Start: 06-26-2022 End: 06-27-[address] JUAN PABLO ALANIZ Facility:[facility] Start: 05-23-2022 End: 05-24-[address] JUAN PABLO ALANIZ Facility:[facility] Start: 04-26-2022 End: 04-26-2022 Patient encounter procedure Umer VALENCIA [facility] Start: 04-22-2022 End: 04-23-[address] JUAN PABLO ALANIZ Facility:[facility] Start: 04-16-2022 End: 04-16-[address] JUAN PABLO ALANIZ Facility:[facility] Start: 04-08-2022 End: 04-08-2022 Patient encounter procedure Umer VALENCIA [facility] Start: 04-04-2022 ambulatory SHELLIE ROJAS . Facility:[facility] Start: 03-08-2022 End: 03-08-[address] JUAN PABLO ALANIZ Facility:[facility] Start: 03-04-2022 Encounter for preprocedural cardiovascular examination DR VINH HOLCOMB . [facility] Start: 03-04-2022 Encounter for preprocedural laboratory examination DR VINH HOLCOMB . [facility] Start: 03-03-2022 End: 03-03-[address] JUAN PABLO ALANIZ Facility:[facility] Start: 03-02-2022 Encounter for preprocedural cardiovascular examination DR VINH HOLCOMB . [facility] Start: 02-26-[address] VINH HOLCOMB [...] encounter procedure Umer VALENCIA [facility] Start: 11-29-2021 End: 11-30-2021 ambulatory MANDIE NOBLE [...] encounter procedure Umer VALENCIA [facility] Start: 09-03-2021 End: 09-03-[address] JUAN PABLO ALANIZ Facility:[facility] Procedures Date Procedure Procedure Detail Performing Clinician Start: 02-01-2024 BLOOD CULTURE 2 Generic External Data Provider Start: 02-01-2024 BLOOD CULTURE 1 Generic External Data Provider Start: 01-22-2024 BLOOD CULTURE 2 Generic External Data Provider Start: 01-22-2024 BLOOD CULTURE 1 Generic External Data Provider Start: 12-05-2023 ALL BASIC METABOLIC PANEL Darcy Sandoval NP Work Phone: Start: 11-30-2023 ALL URINALYSIS Rene Anthony MD Work Phone: Start: 11-13-2023 Hemoglobin glycosylated a1c Darcy Sandoval NP Work Phone: Esophagogastroduodenoscopy Goldie VALENCIA Plan of Treatment Date Care Activity Detail Author Start: 01-07-2025 Urine screening for protein Diabetes: Urine Protein Screening [facility] Start: 12-04-2024 Urine screening for protein Diabetes: Urine Protein Screening [facility] Start: 11-21-2024 Urine screening for protein Diabetes: Urine Protein Screening [facility] Start: 10-22-2024 Urine screening for protein Diabetes: Urine Protein Screening [facility] Start: 03-04-2024 End: 03-04-2024 Patient encounter procedure 03/04/2024 3:50 PM EST Procedure Visit [facility] [address] [facility] [address] [place] [address] Tommy Gabriel, DPAminah [address] [facility] [address] [place] [address] [facility] Start: 02-17-2024 Hemoglobin A1c measurement Diabetes: Hemoglobin A1C [facility] Start: 02-13-2024 Hemoglobin A1c measurement Diabetes: Hemoglobin A1C [facility] Start: 01-29-2024 End: 01-28-2025 Basic metabolic 1998 panel - Serum or Plasma Basic metabolic panel Lab Routine Localized edema Acute cough Expected: 01/29/2024 (Approximate), Expires: 01/28/2025 [facility] Work Phone: Comment on above: Expected: 01/29/2024 (Approximate), Expires: 01/28/2025 Start: 01-29-2024 End: 01-28-2025 Natriuretic peptide B [Mass/volume] in Blood B-type natriuretic peptide Lab Routine Localized edema Acute cough Expected: 01/29/2024 (Approximate), Expires: 01/28/2025 [facility] Comment on above: Expected: 01/29/2024 (Approximate), Expires: [...] status type Expected: 01/08/2024 (Approximate), Expires: 01/07/2025 [facility] Comment on above: Expected: 01/08/2024 (Approximate), Expires: 01/07/2025 Start: 01-08-2024 End: 01-08-2024 Patient encounter procedure 01/08/2024 1:00 PM EDT Office Visit [facility] [address] [place] [address] Darcy Sandoval [employer] [address] [place] [address] [facility] Start: 12-25-2023 End: 12-25-2023 Patient encounter procedure [facility] Comment on above: Arrived Start: 11-23-2023 Influenza vaccination [facility] Start: 11-13-2023 End: 11-13-2023 Patient encounter procedure 11/13/2023 2:30 PM EDT Office Visit [facility] [address] [place] [address] Darcy Sanodval [employer] [address] [place] [address] Arrived [facility] Comment on above: Arrived Start: 11-13-2023 End: 11-12-2024 Natriuretic peptide B [Mass/volume] in Blood B-type natriuretic peptide Lab Routine Bilateral lower extremity edema Expected: 11/13/2023 (Approximate), Expires: 11/12/2024 [facility] Work Phone: Comment on above: Expected: 11/13/2023 (Approximate), Expires: 11/12/2024 Start: 06-25-2023 Hemoglobin A1c measurement Diabetes: Hemoglobin A1C [facility] Start: 03-08-2023 Urine screening for protein Diabetes: Urine Protein Screening [facility] Start: 08-22-2022 ambulatory Ambulatory Facility:[facility] Start: 08-06-2019 Pneumococcal Vaccine : 65+ Years (2 of 2 - PCV) Pneumococcal Vaccine: 65+ Years (2 of 2 - PCV) [facility] Start: 2003 Fall Risk Screening Fall Risk Screen ing [facility] Start: 1988 Administration of varicella zoster vaccine Zoster (Shingles) Vaccine (1 of 2) [facility] Start: 1957 DTaP,Tdap and Td Vac cines (1 - Tdap) DTaP,Tdap and Td Vaccines (1 - Tdap) [facility] Start: 1950 Depression Screening Depression Scre ening [facility] Start: 1950 Tobacco Screening Tobacco Screening [facility] Start: 1948 Glaucoma screening Diabetes: R etinopathy Screening [facility] BLOOD CULTURE 1 BLOOD CULTURE 1 Lab Routine 01/22/2024 3:15 PM EDT [facility] BLOOD CULTURE 2 BLOOD CULTURE 2 Lab Routine 01/22/2024 3:19 PM EDT [facility] Immunizations Immunization Date Immunization Notes Care Provider Walt peck 01-13-2023 influenza virus vacc ine, unspecified formulation Marianela Ingram [facility] 01-13-2023 Influenza, High-dose Seasonal, Quadrivalent, Preservative Free Darcy Sandoval NP Work Phone: [facility] 02-22-2022 influenza virus vacc ine, unspecified formulation Umer VALENCIA [facility] 02-22-2022 influenza, high dose seasonal, preservative-free Darcy Sandoval NP Work Phone: [facility] 12-21-2020 SARS-CoV-2 (COVID-19 ) mRNA BNT-162b2 vax Umer VALENCIA [facility] 11-30-2020 SARS-CoV-2 (COVID-19 ) mRNA BNT-162b2 vax Umer VALENCIA [facility] 01-24-2020 influenza virus vacc ine, unspecified formulation Umer VALENCIA [facility] 01-24-2020 influenza, high dose seasonal, preservative-free Darcy [place] [employer] Work Phone: [facility] 03-04-2019 influenza virus vacc ine, unspecified formulation Umer VALENCIA [facility] 03-04-2019 influenza, high dose seasonal, preservative-free Darcy Lori [employer] Work Phone: [facility] 08-05-2018 pneumococcal polysaccharide vaccine, 23 valent Umer VALENCIA [facility] 12-18-2016 influenza virus vacc ine, unspecified formulation Umer VALENCIA [facility] 12-18-2016 influenza, high dose seasonal, preservative-free Darcy Lori [employer] Work Phone: [facility] 12-06-2015 influenza virus vacc ine, unspecified formulation Umer VALENCIA [facility] 12-06-2015 influenza, high dose seasonal, preservative-free Darcy [place] [employer] Work Phone: [facility] 12-21-2014 influenza virus vacc ine, unspecified formulation Umer VALENCIA [facility] 12-21-2014 influenza, high dose seasonal, preservative-free Darcy Lori [employer] Work Phone: [facility] Healthcare Payers Date Payer Category Payer Medicare ANTHEM MEDICARE ADVANTAGE ANTH MEDICARE ADVANTAGE [id number] 2021-Present [address] [place] [address] [id number] 2021 Medicare (Managed Care) PEG PULIDOLORNA ADVANTAGE Member Subscriber Plan / Payer (Effective 2021-Present) Name: Nat Moore Relation to Subscriber: Self Name: Nat Moore Payer ID: Not on file Group ID: [id number] Type: Not on file Address: [address] [id number] 1959 Unknown [id number] 1959 Unknown [id number] 1938 Unknown [id number] 2.16840.1.317954.3.579.2 .593 1938 Unknown [id number] 2.16840.1.391096.3.579.2 .59 1938 Unknown [id number] 2.16840.1.274028.3.579.2 .593 1938 Unknown [id number] 2.16840.1.239518.3.579.2 .593 1938 Unknown [id number] 2.16840.1.145883.3.579.2 .593 1938 Unknown [id number] 2.16840.1.324876.3.579.2 .593 1938 Unknown [id number] 2.16840.1.205749.3.579.2 .593 1938 Unknown [id number] 2.16840.1.406926.3.579.2 .59 1938 Unknown [id number] 2.16.840.1.457934.3.579.2 .593 1938 Unknown [id number] 2.16.840.1.933926.3.579.2 .593 1938 Unknown [id number] 2.16.840.1.437251.3.579.2 .593 1938 Unknown [id number] 2.16.840.1.138659.3.579.2 .593 1938 Unknown [id number] 2.16.840.1.087884.3.579.2 .593 1938 Unknown [id number] 2.16.840.1.942453.3.579.2 .593 1938 Unknown [id number] 2.16.840.1.758143.3.579.2 .593 1938 Unknown [id number] 2.16.840.1.186626.3.579.2 .593 1938 Unknown [id number] 2.16.840.1.367172.3.579.2 .593 1938 Unknown [id number] 2.16.840.1.829397.3.579.2 .593 1938 Unknown [id number] 2.16.840.1.812346.3.579.2 .593 1938 Unknown [id number] 2.16.840.1.221617.3.579.2 .593 1938 Unknown [id number] 2.16.840.1.711338.3.579.2 .593 1938 Unknown [id number] 2.16.840.1.640597.3.579.2 .593 1938 Unknown [id number] 2.16.840.1.782908.3.579.2 .593 1938 Unknown [id number] 2.16.840.1.339209.3.579.2 .593 1938 Unknown [id number] 2.16.840.1.874101.3.579.2 .732 1938 Unknown [id number] 2.16.840.1.703844.3.579.2 .173 1938 Unknown [id number] 2.16.840.1.451588.3.579.2 .1259 1938 Unknown [id number] 2.16.840.1.938463.3.579.2 .1259 1938 Unknown [id number] 2.16.840.1.986107.3.579.2 .1259 1938 Unknown [id number] 2.16.840.1.535273.3.579.2 .1259 1938 Unknown [id number] 2.16.840.1.016919.3.579.2 .1259 1938 Unknown [id number] 2.16.840.1.689825.3.579.2 .1259 1938 Unknown [id number] 2.16.840.1.063991.3.579.2 .1259 1938 Unknown [id number] 2.16.840.1.457678.3.579.2 .1259 1938 Unknown [id number] 2.16.840.1.824066.3.579.2 .1259 1938 Unknown [id number] 2.16.840.1.340899.3.579.2 .1259 1938 Unknown [id number] 2.16.840.1.127429.3.579.2 .1259 1938 Unknown [id number] 2.16.840.1.524323.3.579.2 .727 1938 Unknown [id number] 2.16.840.1.572729.3.579.2 .727 1938 Unknown [id number] 2.16.840.1.296760.3.579.2 .727 1938 Unknown [id number] 2.16.840.1.488305.3.579.2 .727 Social History Date Type Detail Facility Start: 09-03-2021 Tobacco smoking status Ex-smoker (fi nding) [facility] Start: 09-01-2018 End: 12-11-2023 Sex Assigned At Male [facility] Start: 04-26-2022 End: 11-14-2022 Tobacco smoking status Never smoked tobacco (finding) [facility] Tobacco smoking status Never [facility] Start: 11-14-2022 Tobacco use and exposure Smokeless tobacco non-user [facility] Start: 11-13-2023 End: 02-10-2024 Alcoholic beverage intake Ex-drinker (finding) [facility] Start: 09-01-2018 End: 12-11-2023 History of Social function [facility] [...] at Not on file [facility] Tobacco smoking stat NHIS Tobacco smoking consumption unknown [facility] Start: 10-25-2014 Sex Male (finding) [facility] Functional Status Date Assessment Result Facility 11-11-2023 Functional Status N/A [facility] 09-16-2022 Functional Status N/A [facility] 04-26-2022 Functional Status N/A [facility] 12-03-2021 Functional Status N/A [facility] 09-03-2021 Functional Status N/A [facility] Clinical Notes 09-03-2021 to 04-02-2024 Bong Acosta, DO - 04/02/2024 3:13 PM ESTAlexandrraz Acosta, DO - 03/26/2024 2:55 PM EST Note Date & Type Note Facility 04-02-2024 History of Present illness Narrative Patient Name: Nat Moore Date of : 1940 Date of Service: 04/02/2024 Facility: [facility] Type of Visit: Acute Visit Subjective Nat Moore is a 83 y.o. male seen today at custodial facility for abnormal labs and problem visit. Staff report abnormal labs for my review. He is incontinent of bladder and is a regular change. He usually sleeps most of the day but today he did try to elope but was easily redirected. He denies problems. He said he was getting ready to go to work. Allergies: Penicillins BP 137/69 Physical Exam Vitals reviewed. Constitutional: General: He is sleeping. He is not in acute distress. Appearance: He is not ill-appearing. Comments: In bed HENT: Head: Normocephalic. Cardiovascular: Rate and Rhythm: Normal rate and regular rhythm. Heart sounds: Normal heart sounds. No murmur heard. Pulmonary: Effort: Pulmonary effort is normal. No respiratory distress. Breath sounds: No wheezing, rhonchi or rales. Abdominal: General: Bowel sounds are normal. Palpations: Abdomen is soft. Tenderness: There is no abdominal tenderness. Musculoskeletal: Cervical back: Neck supple. Neurological: Mental Status: He is easily aroused. He is disoriented. Comments: A&O x 1-person only. Psychiatric: Attention and Perception: Attention normal. Mood and Affect: Mood normal. Speech: Speech is delayed. Behavior: Behavior is slowed. Thought Content: Thought content is delusional (thinks he has to go to work). Cognition and Memory: Cognition is impaired. Memory is impaired. He exhibits impaired recent memory and impaired remote memory. Labs: A1c 5.4% Na+ 150-was 152; Cl-112, was 113 GFR 58 Ca+ 8.2-L Summary / Assessment / Plan 1. 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) 2. Dementia without behavioral disturbance, psychotic disturbance, mood disturbance, or anxiety, unspecified dementia severity, unspecified dementia type ([facility]) 3. Benign prostatic hyperplasia with lower urinary tract symptoms, symptom details unspecified 4. Hypernatremia Going to discontinue his glipizide since his A1c was so good at 5.4%. Will monitor blood glucose 3 times a week to ensure it does not start to rise significantly. He should not be on an MILLER any ways a daily. Consider SGLT-2 medication with CKD. I am also going to discontinue oxybutynin since he is incontinent of urine his change regularly by the staff. That can also contribute to confusion. I'm going to do a gradual dose reduction of Seroquel. Discontinue the a.m. dose but continue p.m. dose. Check BMP and A1c in 3 months. ELECTRONICALLY SIGNED BY: Bong Aocsta DO documented in this encounter [facility] 03-26-2024 History of Present illness Narrative Patient Name: Nat Moore Date of : 1940 Date of Service: 03/26/2024 Facility: [facility] Type of Visit: Subsequent Visit Subjective Nat Moore is a 83 y.o. male seen today at custodial facility for monthly visit. No new problems reported by staff or patient. He had labs done that were ordered by child and adolescent psychologist. It looks like he is staying here long-term. He did not progress well with PT to go home. He also had an EKG which showed 1st degree AV block, poor R wave progression and LAFB. Allergies: Penicillins Code Status: FULL CODE BP 136/85 Pulse 64 Temp 36.3 C (97.4 F) Resp 18 Wt 112 kg (247 lb) SpO2 96% Physical Exam Vitals reviewed. Constitutional: General: He is sleeping. He is not in acute distress. Appearance: He is not ill-appearing. Comments: In bed HENT: Head: Normocephalic. Cardiovascular: Rate and Rhythm: Normal rate and regular rhythm. Heart sounds: Normal heart sounds. No murmur heard. Pulmonary: Effort: Pulmonary effort is normal. No respiratory distress. Breath sounds: No wheezing, rhonchi or rales. Abdominal: General: Bowel sounds are normal. Palpations: Abdomen is soft. Tenderness: There is no abdominal tenderness. Musculoskeletal: Cervical back: Neck supple. Neurological: Mental Status: He is easily aroused. He is disoriented. Comments: A&O x 1-person only. Psychiatric: Attention and Perception: Attention normal. Mood and Affect: Mood normal. Behavior: Behavior is slowed. Thought Content: Thought content normal. Cognition and Memory: Cognition is impaired. Memory is impaired. He exhibits impaired recent memory and impaired remote memory. Assessment/Plan Summary / Assessment / Plan 1. Hypertension associated with 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 ([facility]) 2. Hypernatremia 3. Other hyperlipidemia 4. Hypokalemia Check A1c and BMP. Psych managing psych meds. May need further evaluation for hypernatremia. He is currently on glipizide, a sulfonylurea, and should probably be on SGLT-2 med for CKD with Type 2 diabetes but will check A1c first. All medications reviewed and are medically necessary. ELECTRONICALLY SIGNED BY: Bong Acosta DO documented in this encounter [facility] 03-26-2024 Evaluation note Diagnosis Hypertension associated with 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 ([facility])- Primary Hypernatremia Hyperosmolality and/or hypernatremia Other hyperlipidemia Hypokalemia Hypopotassemia documented in this encounter [facility] Flipzu [id number] Telephone encounter Note* Telephone Encounter - Cait Espinal - 03/11/2024 1:33 PM EST PT WAS A NO SHOW, DAUGHTER CALLED BACK, HE IS IN LONGTERM [id number] Miscellaneous Notes* Telephone Encounter - Cait Espinal - 03/11/2024 1:33 PM EST PT WAS A NO SHOW, DAUGHTER CALLED BACK, HE IS IN LONGTERM * Telephone Encounter - Cait Espinal - 03/04/2024 4:05 PM EST Patient was a no show lvm to r/s documented in this encounter[id number] Telephone encounter Note* Telephone Encounter - Cait Espinal - 03/04/2024 4:05 PM EST Patient was a no show lvm to r/s [id number] History of Present illness Narrative* Bong Shayy Dave, DO - 02/24/2024 11:59 PM EST Patient Name: Nat Moore Date of : 1940 Date of Service: 02/24/2024 Facility: [facility] Type of Visit: Skilled Visit Subjective Nat Moore is a 83 y.o. male seen today at custodial facility for skilled visit. No new problems reported by staff or patient. He is participating in therapy but cannot tell me what he is doing. Allergies: Penicillins Code Status: FULL CODE BP (!) 171/108 Physical Exam Vitals reviewed. Exam conducted with a assembly detailer present (Dayo Delgado MS III). Constitutional: General: He is not in acute distress. Appearance: He is not ill-appearing. HENT: Head: Normocephalic. Cardiovascular: Rate and Rhythm: Normal rate and regular rhythm. Heart sounds: Normal heart sounds. No murmur heard. Pulmonary: Effort: Pulmonary effort is normal. No respiratory distress. Breath sounds: No wheezing, rhonchi or rales. Abdominal: General: Bowel sounds are normal. Palpations: Abdomen is soft. Tenderness: There is no abdominal tenderness. Musculoskeletal: Cervical back: Neck supple. Right lower le+ Pitting Edema present. Left lower le+ Pitting Edema present. Neurological: Mental Status: He is alert. He is disoriented. Comments: A&O x 1-person only. Psychiatric: Attention and Perception: Attention normal. Mood and Affect: Mood normal. Behavior: Behavior is slowed. Thought Content: Thought content normal. Cognition and Memory: Cognition is impaired. Memory is impaired. He exhibits impaired recent memoryand impaired remote memory. Summary / Assessment / Plan 1. Dementia without behavioral disturbance, psychotic disturbance, mood disturbance, or anxiety, unspecified dementia severity, unspecified dementia type ([facility]) 2. 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) 3. Falls, subsequent encounter His blood pressure is elevated today but it had been good previously so we will continue current regimen. Continue therapy to reach maximum improvement. All medications reviewed and are medically necessary. ELECTRONICALLY SIGNED BY: Bong Acosta DO [facility] History of Present illness Narrative* Bong Acosta DO - 02/20/2024 11:37 AM EST Patient Name: Nat Moore Date of : 1940 Date of Service: 02/20/2024 Facility: [facility] Type of Visit: Admission H&P Subjective Nat Moore is a 83 y.o. male seen today at custodial facility for admission. Hi presents back to [facility] from [facility] where he was admitted for dementia. He recently was treated for a pneumonia cellulitis and did spend a week here for therapy. He was discharged back to home after improving. Apparently his had a fall and had to go to the hospital. He was unable to take care of himself. His son found him in bed and had only breakfast. Called the squad and was taken to the hospital for he was admitted. He now presents here for therapy. He does complain of backpain but does not want any medication for it. Did not know that yesterday was Thanksgiving. He admits to a little cough . He denies shortness a breath or chest pain. His appetite is good. He is participating in therapy. Allergies: Patient has no allergy information on record. Code Status: FULL CODE The following portions of the patient's history were reviewed and updated as appropriate: allergies, current medications, past family history, past medical history, past social history, past surgicalhistory, problem list, and medication reconciliation was completed including current medication andpost discharge medication. BP 131/69 Pulse 60 Temp (!) 35.9 C (96.6 F) Resp 18 Wt 111.2 kg (245 lb 3.2 oz) SpO2 99% Physical Exam Vitals reviewed. Constitutional: General: He is not in acute distress. Appearance: He is not ill-appearing. HENT: Head: Normocephalic. Cardiovascular: Rate and Rhythm: Normal rate and regular rhythm. Heart sounds: Normal heart sounds. No murmur heard. Pulmonary: Effort: Pulmonary effort is normal. No respiratory distress. Breath sounds: Wheezing (end-expiratory) present. No rales. Abdominal: General: Bowel sounds are normal. Palpations: Abdomen is soft. Tenderness: There is no abdominal tenderness. Musculoskeletal: Cervical back: Neck supple. Right lower le+ Pitting Edema present. Left lower le+ Pitting Edema present. Skin: Findings: No erythema or rash. Neurological: Mental Status: He is alert. He is disoriented. Comments: A&O x 1-person only. Thought it was Friday but it is Friday. He thought he was in thehospital. Psychiatric: Attention and Perception: Attention normal. Mood and Affect: Mood normal. Behavior: Behavior is slowed. Thought Content: Thought content normal. Cognition and Memory: Cognition is impaired. Memory is impaired. He exhibits impaired recent memoryand impaired remote memory. Summary / Assessment / Plan 1. Dementia without behavioral disturbance, psychotic disturbance, mood disturbance, or anxiety, unspecified dementia severity, unspecified dementia type ([facility]) 2. Falls, subsequent encounter 3. Hypertension associated with 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 ([facility]) 4. Back pain, unspecified back location, unspecified back pain laterality, unspecified chronicity Admit to [facility]. Therapy evaluation and treat to try to regain independence. He has dementia and we will see if he is able to go back home. He needs to be able to do ADLs if not going to be home and right now I don't think he can. He needs supervision. Continue home medications. Full code. ELECTRONICALLY SIGNED BY: Bong Acosta DO documented [facility] History of Present illness Narrative* Bong Acosta DO - 02/06/2024 11:59 PM EST Patient Name: Nat Moore Date of : 1940 Date of Service: 02/06/2024 Facility: [facility] Type of Visit: Admission H&P Subjective Nat Moore is a 83 y.o. male seen today at custodial facility for No chief complaint onfile. . Patient presents to [facility] for therapies following hospitalization for pneumonia and cellulitis. He isplanning on going home when able. He is weak and needs therapy to do ADLs. He is on antibiotics Allergies: Patient has no allergy information on record. Code Status: FULL CODE BP 165/60 Pulse 65 Temp 36.3 C (97.4 F) Resp 17 Wt 111.1 kg (245 lb) SpO2 97% Physical Exam Vitals reviewed. Exam conducted with a assembly detailer present (, daughter and Dayo [facility] MS III). Cardiovascular: Rate and Rhythm: Normal rate and regular rhythm. Heart sounds: Normal heart sounds. Pulmonary: Effort: Pulmonary effort is normal. No respiratory distress. Breath sounds: Wheezing (end-expiratory) present. No rales. Musculoskeletal: Right lower le+ Pitting Edema present. Left lower le+ Pitting Edema present. Neurological: Mental Status: He is alert. He is disoriented. Comments: A&O x 1-person only. Thought it was 1919 Psychiatric: Attention and Perception: Attention normal. Mood and Affect: Mood normal. Behavior: Behavior is slowed. Thought Content: Thought content normal. Cognition and Memory: Cognition is impaired. Memory is impaired. He exhibits impaired recent memoryand impaired remote memory. Summary / Assessment / Plan 1. Pneumonia due to infectious organism, unspecified laterality, unspecified part of lung 2. Cellulitis of left lower extremity 3. Falls, subsequent encounter 4. Dementia without behavioral disturbance, psychotic disturbance, mood disturbance, or anxiety, unspecified dementia severity, unspecified dementia type ([facility]) 5. Depression, unspecified depression type 6. Essential hypertension 7. Type 2 diabetes mellitus without complication, without long-term current use of insulin ([facility]) Plan: Admit to [facility]. Therapy evaluation. Continue current regimen. Full code. Plan to go home when able to. ELECTRONICALLY SIGNED BY: Bong Acosta DO documented [facility] encounter[facility] History of Present illness Narrative* Fe Rojo LPN - 01/29/2024 1:00 PM EST HPI Follow-up Additional comments: [facility] observation: admitted 01/22/24 dx: syncope,hypotension,dehydration discharged home 01/23/24 no med changes made Last edited by Fe Rojo LPN on 01/29/2024 1:07 PM. Subjective Patient ID: Nat Moore is a 83 y.o. male who presents for Follow-up ([facility] observation: admitted 01/22/24 dx: syncope,hypotension,dehydration discharged home 01/23/24 no med changes made) and URI. Patient has been doing well since hospital discharge. No medications changed during inpatient stay.He does report URI symptoms-- dry cough, nasal [...] MOUTH DAILY FOR DEPRESSION WITH 20MG TO [id number] TOTAL FLUoxetine (PROzac) 20 MG capsule TAKE [...] improve. Melanie Boyle NP documented in this encounterCox [id number] Instructions* Patient Instructions* Melanie Boyle NP - 01/29/2024 1:00 PM EST Start azithromycin 500 mg daily x 5 days for sinus infection. Okay to take Coricidin HBP over the counter for cough/congestion symptoms Follow up to be determined based on lab results. documented in this encounterCox [id number] History of Present illness Narrative* Darcy Sandoval NP - 01/08/2024 2:00 PM EDT Images from the original note were not [...] MOUTH DAILY FOR DEPRESSION WITH 20MG TO [id number] TOTAL FLUoxetine (PROzac) 20 MG capsule TAKE [...] Past Medical History: Diagnosis Date Diabetes mellitus ([facility]) Diverticulosis History of being hospitalized 10/07/2023 Acute Metabolic Encephalopathy Hypertension ([facility]) Lung nodule Memory loss Neuropathy Renal cyst 2021 rt cortical Ulcer of foot due to type 2 diabetes mellitus ([facility]) 09/04/2016 Past Surgical History: Procedure Laterality Date [...] keeping urine in refrigerator until she can getit back to office. No follow-ups on file. documented in this encounterCox [id number] History of Present illness Narrative* Darcy Sandoval, SUPERVISOR MOTOR VEHICLE ASSEMBLY - 12/25/2023 2:30 PM EDT Images from the original note were not included. Subjective Patient ID: Nat Moore is a 83 y.o. male who presents for Hospital Follow-up. Pt was at [facility] from 11/27/23 to 12/08/23 pt was put on new meds Pt is doing better and he has been coughing sleeping a lot Pt is having a lot of swelling in his lowers legs Current Outpatient Medications on File Prior to Visit Medication Sig Dispense Refill FLUoxetine (PROzac) 10 MG capsule TAKE ONE CAPSULE BY MOUTH DAILY FOR DEPRESSION WITH 20MG TO [id number] TOTAL hydrOXYzine HCl (Atarax) 25 MG tablet [...] No follow-ups on file. documented in this encounterCox [id number] NoteHospital Medicine Discharge Summary Final Discharge Diagnosis: Episodes of sinus pauses/asystole requiring external pacing maker s/p permanent dual-chamber pacemaker on 11/18/2023 Recurrent syncope Acute encephalopathy Coronary artery disease, Coronary calcification, [facility] 11/15 LAD: prox 40%, mid 60-70%. 80% [...] initially admitted to the hospitalist service from [place] due to recurrent episodes of syncope secondary [...] his presenting complaints. During his stay in [place] ED he suddenly developed bradycardia prolonged sinus pause up to 18 seconds and became unresponsive. Code was activated and at the beginning of CPR he had regained his consciousness. He had another episode of sinus pause of about 12 seconds prior to transfer, however did not lose his consciousness at this time. On arrival to [facility] blood pressure was 158/72 mmHg, pulse rate 78 bpm, regular, SpO2 100% on room air, respiratory rate 20/min, temperature 97.2. 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 CT of the abdomen with contrast done at [place] ED showed nonobstructive bowel gas pattern with [...] significantly. Daily evaluated the patient on 11/21/2023. [place] slip was removed and they deemed patient [...] Center 12/02/2023 2:20 PM Liu Henning MD [facility] Your medication list START taking these medications Instructions Last Dose Given Next Dose Due amLODIPine 10 mg tablet Commonly known as: Norvasc Start taking on: November 23, 2023 Take 1 tablet (10 mg) by mouth in the morning. Do not start bef (more content not included)...[facility]08-31-2024 NotePhysical Therapy Name: Nat Moore Date of : 1940 Today's Date: 11/22/23 Pt is unable to be seen for therapy at this time secondary to pt to discharge @ 2:00 PM today. Check No Charge [facility]: [id number] NotePt originally set for 9am [facility] transport to [facility] but per MD we will push back to 2pm transport due to high blood pressures. UPDATE 1:15PM- Per pt can still discharge today. Transport set for 2pm via [facility]. Assembled transfer packet and placed by chart. Sent final AVS and discharge orders via [facility]. Notified RN and pt's is aware of transport time.[facility]08-30-2024 Note Attestation signed by Juan Pablo Liz [...] is for the patient to go to [facility]. Discussed with the family that our strong [...] Discussed with Dr. Liz. Melva Recinos MD [id number]08-[facility] Note Hospital Medicine Daily Progress Note - 11/21/2023 2:13 PM; Room: [facility] Admission: 11/15/2023 2:42 PM; Length of stay: 6 days THE HOSPITALIST TEAM PREFERS TO USE [employer] CHAT FOR COMMUNICATION 7AM-7PM. IF I DO NOT RESPOND WITHIN 15 MINUTES, PLEASE PAGE ME/CALL THROUGH THE SOURCER. 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 [place] slip removed. No need for psych admission. [...] 2.1 CALCIUM mg/dL 8. (more content not included)...[facility]08-30-2024 NotePhysical Therapy Physical Therapy Treatment Patient Name: Nat [...] a.m. Upon entry, pt in bed. This CRIB ATTENDANT introduces herself and intention for session. Per [...] state President. Did state he was at [facility] .) Following Commands: Follows one step [...] 2 is given. Gait belt is donned, PAYROLL ASSISTANT is given on the right side and [...] to advance BLEs to EOB but uses CRIB ATTENDANT's hand with his right hand to assist in raising upper body from bed. Bed Mobility 2 Bed Mobility From 2: Scooting Bed Mobility Type 2: To Bed Mobility to 2: (EOB in sitting) Level of Assistance 2: Minimum assistance Bed Mobility Comments 2: Pt uses CRIB ATTENDANT's hand with his right hand to assist in scooting hips to EOB Transfers Transfer: Yes Transfer 1 Transfer From 1: Sit Transfer Type 1: To and from Transfer to 1: Stand Transfer Device 1: none (CRIB ATTENDANT and aide on either side of pt) Transfer Level of Assistance 1: Minimum assistance, x2 Trials/Comments 1: Pt. instructed to (more content not included)...[facility]08-30-2024 Note Attestation signed by Juan Pablo Liz [...] Patient Name: Nat Moore MRN / CSN: [id number] Date of / Age: 2 1940 / [...] mild cognitive impairment originally presenting to the [facility] Room on 11/15/2023 for evaluation of recurrent episodes of syncope secondary to spontaneous prolonged sinus pause. The patient was transferred via air ambulance from the [facility]. 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 The patient reports being to his , Donna, and having 4 children. He reports he came from [place] where he lives, but was not able to describe why he came to hospital or where he is now. 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 Reported Behavior: Combative and agitated PRN [...] Midazolam injection PRN 8/ (more content not included)...[facility]08-29-2024 Note11/20/23 1730 Referral Data Referral Source Physician Referral [...] Support Systems Spouse/significant other Type of Residence [facility] facility Will patient need Precert for Post Acute needs? Yes Patient's goal for discharge would like the facility in [place] for rehab 1. [facility] 2. [facility] 3. (if not accepted in [place]) she is ok with [facility]. Does the patient need discharge transport arranged? Yes SW called patient to discuss consult for SNF placement for rehab. Patient is currently confused and not able to answer questions. SW discussed network provider list. would like provider in [place] with [facility] as 1st choice. She would [place] [facility] as 2nd and she is ok if neither can accept for [facility] as 3rd choice. Referrals made as requested. Precert will be needed. SW following.[facility]08-29-2024 Note Attestation signed by William Feldman MD [...] Moore Age - 83 y.[facility]. [facility] 1940 [id number] Date of Admission - 11/15/2023 2:42 PM HPI/Hospital Course Nat Moore is a an 83-year-old gentleman with PMH significant for type 2 diabetes mellitus, essential hypertension, hyperlipidemia, CKD stage IIIa, bilateral lower extremity edema on diuretic therapy, osteoarthritis, depression and mild cognitive impairment was initially admitted to the hospitalist service from [place] due to recurrent episodes of syncope secondary [...] his presenting complaints. During his stay in [place] ED he suddenly developed bradycardia prolonged sinus [...] of the abdomen with contrast done at [place] ED showed nonobstructive bowel gas pattern with [...] extremities, no focal deficit (more content not included)...[facility]08-28-2024 NoteSpeech Language Pathology Speech/Language Pathology Clinical Swallow Assessment Rx: Dysphagia [...] calcifications who presented via air ambulance from [facility] due to recurrent episodes of syncope secondary to spontaneous prolonged sinus pause. He had initially presented for worsening midsternal chest pain lower back pain located in his mid chest aching in nature, 6 out of 10 on intensity scale, nonradiating associated with SOB. During his stay at [place] he developed bradycardia prolonged sinus pause up [...] Crushed (in puree) Recommendations Duration of Treatment: 15[facility] [id number] Note Attestation signed by William Feldman MD [...] initially admitted to the hospitalist service from [place] due to recurrent episodes of syncope secondary [...] his presenting complaints. During his stay in [place] ED he suddenly developed bradycardia prolonged sinus [...] of the abdomen with contrast done at [place] ED showed nonobstructive bowel gas pattern with [...] Lab Results CBC: Result (more content not included)...[facility] 11-19-2023 Note Attestation signed by [...] calcifications who presented via air ambulance from [facility] due to recurrent episodes of syncope secondary to spontaneous prolonged sinus pause. He had initially presented for worsening midsternal chest pain lower back pain located in his mid chest aching in nature, 6 out of 10 on intensity scale, nonradiating associated with SOB. During his stay at [place] he developed bradycardia prolonged sinus pause up [...] NAD. Resting comfortably. Still in restraints. S/p [employer] DC-PPM yesterday, tolerated well. OBJECTIVE Objective [...] IV, , , Once (more content not included)...[facility]08-28-2024 Note11/19/23 1125 Admission Assessment Questions Verify insurance with [...] Interested Does the patient have a case management coordinator assigned to them through their insurance? No Living Arrangement (Current/Prior to Hospitalization) Private residence (with ) Does the patient have history of HHC or SNF? No Assistive Device Cane Patient's goal for discharge likely snf Was patient reminded that goal for discharge is 11am? No Does the patient have transportation at discharge? No Type of Residence [facility] facility Is PT/OT appropriate? Yes Is PT/OT ordered? Yes Is SW consult appropriate? Yes Is SW consult ordered? Yes Do you understand the benefits of MyChart? No Were you able to send link and activate MyChart? [facility] NoteConsult rec'd for SNF. PT/OT recommend SNF. No family at bedside at this time. SW to try again later.[facility]08-28-2024 NotePhysical Therapy Physical Therapy Evaluation Patient Name: Nat [...] Level of Function Prior Function Level of Gilchrist: Independent with ADLs and functional transfers, Needs [...] though patient with difficul (more content not included)...[facility]08-28-2024 Note Occupational Therapy Occupational Therapy Evaluation Patient Name: Nat Moore : 1940 Today's Date: 11/19/2023 Time In: 941 Time Out: 1005 admitted to the hospitalist service from [place] due to recurrent episodes of syncope secondary [...] directions Memory: Decreased short term memory, 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, Decreased recall of precautions, Decreased recall of biographical information, Decreased recall of recent events Communication: (labored , dysarthic) General Assessment General Assessment Hearing: (wilton, hearing aids not observed but has them per nsg) Hand Dominance: Right Home Living Home Living Type of Home: (patient unable to report consistantly) Prior Level of Function Prior Function Level of Gilchrist: (reports indep and drives) Prior Functional Mobility: [...] Little (Min Assist/Contact Guard/Supervision) Total Score OT [facility]: 8 Assessment/Plan OT Assessment OT Impairments: Decreased ADL status, Decreased cognition, Decreased endurance, Decreased functional mobility 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: (needs skilled OT due to weakness [...] until discharge & PRN OT Discharge Recommendations: [facility] facility placement OT - Discharge Recommendations Placed: Yes OT Goals Multi-Disciplinary Problems (from Occupational Therapy) Active Problems Problem: Balance Start Date: 11/19/23 Goal Start Date Expected End Date End Date LTG - Patient will maintain stand balance to allow for safe mobility 11/19/23 12/17/23 -- Problem: Bathing Start Date: 11/19/23 Goal Start Date Expected End Date End Date LTG (more content not included)...[facility]08-27-2024 Note Attestation signed by William Feldman MD [...] initially admitted to the hospitalist service from [place] due to recurrent episodes of syncope secondary [...] his presenting complaints. During his stay in [place] ED he suddenly developed bradycardia prolonged sinus [...] of the abdomen with contrast done at [place] ED showed nonobstructive bowel gas pattern with [...] 12.7* 11.9* 12.4* HE (more content not included)...[facility]08-27-2024 Note Attestation signed by Nora Rivera MD [...] calcifications who presented via air ambulance from [facility] due to recurrent episodes of syncope secondary to spontaneous prolonged sinus pause. He had initially presented for worsening midsternal chest pain lower back pain located in his mid chest aching in nature, 6 out of 10 on intensity scale, nonradiating associated with SOB. During his stay at [place] he developed bradycardia prolonged sinus pause up [...] NAD. Resting comfortably. Still in restraints. S/p [employer] DC-PPM this morning, tolerated well. OBJECTIVE [...] tablet 40 mg, 40 mg, oral, Nightly, uKlwinder Figueroa MD, 40 mg at 11/17/232123 dexmedeTOMIDine [...] q8h PRN, Nils Lam (more content not included)...[facility] 11-18-2023 NoteDUAL CHAMBER PACEMAKER IMPLANT PROCEDURE NOTE DATE OF PROCEDURE: 11/18/23 PERFORMING PHYSICIAN: Dr. Sam Zelaya CONSENT: Patient LOCATION: EP Lab PROCEDURE PERFORMED: 1. Implantation of pacemaker ([employer]) 2. Ultrasound guided venous access INDICATIONS: [...] using modified seldinger technique using a 5 Comoran micro-puncture needle on two occasions and 0.35 [...] for the device above the muscle. 6 [place] Safesheaths were placed over the wire. An active fixation [employer] pacing lead was then delivered through [...] was then removed. Then an active fixation [employer] lead was delivered through the 6Fsheath [...] for any concerns. Sam Zelaya MD Cardiac Elect[facility]iologyL[facility]08[facility] Note Attestation signed by Nora Rivera MD [...] calcifications who presented via air ambulance from [facility] due to recurrent episodes of syncope secondary to spontaneous prolonged sinus pause. He had initially presented for worsening midsternal chest pain lower back pain located in his mid chest aching in nature, 6 out of 10 on intensity scale, nonradiating associated with SOB. During his stay at [place] he developed bradycardia prolonged sinus pause up [...] Topical, BID, Giles Altman MD, Given at 11/16/232153 oxybutynin XL (Ditropan-XL) 24 hr tablet 5 [...] mg, oral, Daily, [place] (more content not included)...[facility]08-26-2024 Note Attestation signed by William Feldman MD [...] initially admitted to the hospitalist service from [place] due to recurrent episodes of syncope secondary [...] his presenting complaints. During his stay in [place] ED he suddenly developed bradycardia prolonged sinus [...] of the abdomen with contrast done at [place] ED showed nonobstructive bowel gas pattern with [...] planning on taking the patient to the [facility] tomorrow for possible transvenous pacemaker placement SUBJECTIVE [...] 24 hours) at 11/17/2023 (more content not included)...[facility]08-25-2024 NoteCardiovascular Laboratory Report FINAL IMPRESSIONS: Successful, percutaneous placement of [...] left radial artery was obtained. A 6 [place] glide sheath was inserted without difficulty. Difficulty [...] with a mid v (more content not included)...[facility]08-25-2024 Note Attestation signed by Salena Alcaraz MD [...] permanent pacemaker implantation tomorrow Salena Alcaraz MD, [facility] Cardiology Progress Note Subjective Subjective: Patient had [...] Value Ventricular Rate 85 Atrial Rate 85 AK Interval 266 QRS DURATION 104 QT Interval 390 QTC CALCULATION(BAZETT) 464 P Uvalda 71 R-Uvalda -60 T Wave Uvalda 49 Impression Sinus rhythm with 1st degree A-V block Left axis deviation Inferior infarct (cited on or before 21-JUL-2012) Cannot rule out Anterior infarct (cited on or before 15-NOV-2023) Abnormal ECG When compared with ECG of 15-NOV-2023 19:56, (unconfirmed) No significant change was found Lab Results Component Value Date TROPONINI 0.01 11/15/2023 Transthoracic echo (TTE) complete Result Date: 11/15/2023 1 1 [facility] [address] [place] [id number] [phone] (fax) Echocardiogram-[facility] Name: NAT MOORE Study Date: 11/15/2023 05:06 PM B/P: 158 mmHg/72 mmHg HR: Date of : 1940 Location: [facility] Height: 65 in. Age: 83 year(s) Patient [...] in sizeNo significant v (more content not included)...[facility]08-24-2024 NoteCODE BLUE was called on this patient after he sustained a 10 the second sinus pause and then a 7-second sinus pause. Patient with brief LOC. Patient with multiple episodes of nausea and vomiting. MICU fellow at bedside who states he will transfer patient to MICU for transcutaneous pacing.[facility]08-24-2024 NoteHospital Medicine History and Physical 11/15/2023 5:58 PM THE HOSPITALIST TEAM PREFERS TO USE [employer] CHAT FOR COMMUNICATION 7AM-7PM. IF I DO NOT RESPOND WITHIN 15 MINUTES, PLEASE PAGE ME/CALL THROUGH THE SOURCER. FROM 7PM-7AM, PLEASE PAGE [phone](COVR) Chief Complaint No chief complaint on file. History of Present Illness Nat Moore is an 83 y.o. severely obese male with a medical history significant for type 2 diabetes mellitus, essential hypertension, hyperlipidemia, CKD stage IIIa, bilateral lower extremity edema on diuretic therapy, osteoarthritis, coronary calcifications, depression, mild cognitive impairment, who was transferred via air ambulance from the [facility] due to recurrent episodes of syncope secondary to spontaneous prolonged sinus pause. Patient states that he presented to the [place] ED due to worsening midsternal chest pain [...] his presenting complaints. During his stay in [place] ED he suddenly developed bradycardia prolonged sinus [...] of the abdomen with contrast done at [place] ED showed nonobstructive bowel gas pattern with [...] ulcers, no oral abnorma (more content not included)...[facility]08-22-2024 History of Present illness Narrative* Darcy Sandoval NP - 11/13/2023 2:30 PM EDT Images from the original note were not included. Subjective Patient ID: Nat Moore is a 83 y.o. male who presents for swelling in his legs. Nat is in today for swelling in his legs, causing difficulty walking. States this has been goingon for awhile but just got worse the last couple months. Legs are swollen all the time, states it doesn't make a difference if he elevated his legs or not. Edema Presents with new edema. The current episode started more than 1 month ago. The onset of the episode was gradual. These episodes happen throughout the day. The problem has been gradually worsening. The edema is present on the both side(s). Risk factors for edema include no known risk factors. Associated agents include no associated agents. Associated symptoms include decreased urine volume. Past medical history is significant for chronic renal disease. Treatments tried include elevating limb(s). There has been none improvement on treatment(s). Current Outpatient Medications on File Prior to Visit Medication Sig Dispense Refill allopurinol (Zyloprim) 300 MG tablet TAKE ONE TABLET BY MOUTH DAILY 100 tablet 3 candesartan (Atacand) 32 MG tablet Take 32 mg by mouth Daily Candesartan Cilexetil-HCTZ 32-25 MG tablet Take 1 tablet by mouth in the morning. 100 tablet 2 docusate sodium (Colace) 100 MG capsule TAKE ONE CAPSULE BY MOUTH DAILY NEEDED 28 capsule 11 donepezil (Aricept) 10 MG tablet TAKE ONE TABLET BY MOUTH DAILY AT BEDTIME 28 tablet 11 FLUoxetine (PROzac) 20 MG capsule TAKE ONE CAPSULE BY MOUTH ONCE DAILY 28 capsule 11 furosemide (Lasix) 20 MG tablet Take 1 tablet (20 mg) by mouth Daily as needed (edema) 30 tablet 11 gabapentin (Neurontin) 100 MG [...] BEFORE MORNING MEAL 90 28 capsule 11 solifenacin (VESIcare) 10 MG tablet Take 10 mg by mouth in the morning. Swallow tablet whole; do not crush, chew, or split.. tamsulosin (Flomax) 0.4 MG 24 hr capsule Take 0.4 mg by mouth in the morning. No current facility-administered medications on file prior to visit. 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 HENT: Negative. Eyes: Negative. Respiratory: Negative. Cardiovascular: Positive for leg swelling. Genitourinary: Positive for decreased urine volume. Musculoskeletal: Negative. Neurological: Negative. Psychiatric/Behavioral: Negative. All other systems reviewed and are negative. Objective Physical Exam Vitals reviewed. Constitutional: Appearance: Normal appearance. HENT: Head: Normocephalic. Mouth/Throat: Mouth: Mucous membranes are moist. Pharynx: Oropharynx is clear. Eyes: Conjunctiva/sclera: Conjunctivae normal. Cardiovascular: Rate and Rhythm: Normal rate and regular rhythm. Pulmonary: Effort: Pulmonary effort is normal. Breath sounds: Normal breath sounds. Musculoskeletal: Right lower leg: Edema present. Left lower leg: Edema present. Skin: General: Skin is warm and dry. Neurological: General: No focal deficit present. Mental Status: He is alert and oriented to person, place, and time. Psychiatric: Mood and Affect: Mood normal. Behavior: Behavior normal. Assessment/Plan Diagnoses and all orders for this visit: Bilateral lower extremity edema - B-type natriuretic peptide; Future - furosemide (Lasix) 40 MG tablet; Take 1 tablet (40 mg) by mouth Daily Take medication as ordered. Keep your legs elevated throughout the day. Lasix increased from 20mg to 40mg Type 2 diabetes mellitus with diabetic nephropathy, without long-term current use of insulin ([facility]) - POCT glycosylated hemoglobin (Hb A1C) docked device We discussed today, the importance of proper diabetic control. We discussed possible complications of diabetes, including loss of vision, renal failure, increased risk of heart attacks and strokes, blood vessel and/or nerve damage. We discussed the recommended changes to reduce your blood sugars and minimize the risk of these complications. We discussed diabetic goals, including keeping A1C <7.0% and blood pressure < 130/70. The plan for achieving these goals is adherence to medications, diet, and regular activity as discussed during today's visit. We discussed current barriers to achieving these goals. We discussed dietary goals. We discussed calorie counting, as well as decreasing carbohydrate and simple sugar intake. Reviewed portion control with the patient. If the patient stillhas questions on this, a referral to a Dietitian can be arranged. I reviewed medications that aid in diabetic control. We discussed proper dosing and educated the patient on possible side effects andcomplications. The patient verbalized understanding of these instructions. Hypokalemia - potassium chloride CR (Klor-Con M20) 20 MEQ ER tablet; Take 1 tablet (20 mEq) by mouth Daily Do not crush or chew. Take the potassium with the Lasix to prevent any hypokalemia. If you develop muscle aches, constipation, fatigue, weakness, spasms, tingling and numbness or palpitations No follow-ups on file. documented in this encounterCox [id number] Hospital Discharge instructions Patient Education 11/11/2023 13:51:14 [...] You may also have very sensitive muscles thatmake your bladder squeeze too soon. This condition [...] your health care provider. General instructions Take dhjq-hik-suhffxu and prescription medicines only as told by your health care provider. If you were prescribed an antibiotic medicine, take it as told by your health care provider. Do notstop taking the antibiotic even if you start [...] provider. Document Revised: 11/27/2020 Document Reviewed: 11/27/2020 [employer] Patient Education 2022 [employer]bert. Follow Up Care 10/14/2023 13:29:56 With:Nataly GOMES, RAUL, Marianela X, FAM, URL Address: When: Unknown Comments:f/up in 3 mos [facility] NotePatient Education Obstetrics and Gynecology Overactive Bladder, Adult [...] You may also have very sensitive muscles thatmake your bladder squeeze too soon. This condition [...] as stroke, dementia, Parkinson's disease, or multiple sclerosis(MS). ? Eat or drink alcohol, spicy food, [...] health care provider. General instructions ? Take whdv-oeg-pzqukyq and prescription medicines only as told by [...] help your health care (more content not included)...[facility]06-26-2023 Hospital Discharge instructions Patient Education 09/16/2022 15:39:44 [...] You may also have very sensitive muscles thatmake your bladder squeeze too soon. This condition [...] your health care provider. General instructions Take iqkj-qjo-vpymetn and prescription medicines only as told by your health care provider. If you were prescribed an antibiotic medicine, take it as told by your health care provider. Do notstop taking the antibiotic even if you start [...] provider. Document Revised: 11/27/2020 Document Reviewed: 11/27/2020 [employer] Patient Education 2022 [employer]bert. Follow Up Care 04/26/2022 11:39:09 With:ERIK MENG, Umer Schultz, URL Address: [facility] [address] [place] [address]- When: Unknown [facility] 03-02-2023 NoteCONSULTATION CONSULTATION DATE: 05/23/2022 HISTORY: This is a [...] unless otherwise indicated. Patient agrees with this plan.[id number] Discharge instructions Patient Education 04/26/2022 11:21:01 Benign Prostatic Hyperplasia Benign Prostatic Hyperplasia Benign prostatic hyperplasia (BPH) is an enlarged prostate gland that is caused by the normal agingprocess and not by cancer. The prostate is [...] urethra. Follow these instructions at home: Take orcx-xnh-owhtoug and prescription medicines only as told by [...] 03/10/2006 Document Revised: 02/02/2019 Document Reviewed: 04/14/2017 [employer] Patient Education 2020 [employer]. Follow Up Care 04/08/2022 14:01:00 With:ERIK MENG, Umer Schultz, URL Address: [address] [place] [address] When: Unknown [facility] 01-16-2023 Hospital Discharge instructions Patient Education 04/08/2022 08:30:52 Benign Prostatic Hyperplasia Benign Prostatic Hyperplasia Benign prostatic hyperplasia (BPH) is an enlarged prostate gland that is caused by the normal agingprocess and not by cancer. The prostate is [...] urethra. Follow these instructions at home: Take nyil-ini-vjoqqdq and prescription medicines only as told by [...] 03/10/2006 Document Revised: 02/02/2019 Document Reviewed: 04/14/2017 [employer] Patient Education 2020 [employer]. Follow Up Care 12/03/2021 14:11:02 With:ERIK MENG, Umer Schultz, URL Address: [facility] [address], [place] [address]- When: Unknown [facility] Jillian 11-01-2022 NoteCONSULTATION CONSULTATION DATE: 01/22/2022 CHIEF COMPLAINT: Low back [...] like to proceed. CC: Juan Pablo Alaniz M.D.[facility] [id number] NoteCONSULTATION CONSULTATION DATE: 12/13/2021 HISTORY OF PRESENT ILLNESS: [...] 200 mg t.i.d., nabumetone 750 mg b.i.d., Moody 5/325 t.i.d. Patient does use a walking [...] L3 and L4, L5. A refill for Moody 5/325 t.i.d. will be sent today. He will receive an oral U-Tox in the office today. Supportive measures such as stretching, a menthol heat rub and heat application to his back were discussed. I did recommend a Boost supplement daily. Patient will be followed up in the office post procedure and agrees to move forward.[facility] [id number] Hospital Discharge instructions Patient Education 12/03/2021 13:45:30 Benign Prostatic Hyperplasia Benign Prostatic Hyperplasia Benign prostatic hyperplasia (BPH) is an enlarged prostate gland that is caused by the normal agingprocess and not by cancer. The prostate is [...] urethra. Follow these instructions at home: Take zoom-wig-tryuvyi and prescription medicines only as told by [...] 03/10/2006 Document Revised: 02/02/2019 Document Reviewed: 04/14/2017 [employer] Patient Education 2020 [employer]bert. Follow Up Care 09/03/2021 14:17:23 With:ERIK MENG, Umer Schultz, URL Address: [facility] [address], [place] [address]- [phone] When:04/04/2022 Comments:PVR [facility] 07-12-2022 NoteCONSULTATION PROCEDURE DATE: 10/02/2021 PREOPERATIVE DIAGNOSIS: Lumbar paravertebral [...] he reports mitigation of his pain symptomatology. [facility] Signed and Approved by: DR VINH HOLCOMB . 10/09/2021 09:28:00[id number] NoteCONSULTATION CONSULTATION DATE: 10/02/2021 CHIEF COMPLAINT: Low back [...] three times a day. We will re-prescribe Moody 5/325 t.i.d. which he had received from [...] to proceed. CC: Juan Pablo Alaniz M.D. [facility] Signed and Approved by: DR VINH HOLCOMB . 10/09/2021 09:28:00[facility]06-13-2022 Hospital Discharge instructions Patient Education 09/03/2021 13:53:17 [...] sure to eat fewer calories than your bodyneeds, you should lose weight. Ask your health care provider what a healthy weight is for you. For calorie counting to work, you will need to eat the right number of calories in a day in order to lose a healthy amount of weight per week. A dietitian can help you determine how many calories youneed in a day and will give you suggestions on how to reach your calorie goal. A healthy amount of weight to lose per week is usually 1 2 lb (0.5 0.9 kg). This usually means thatyour daily calorie intake should be reduced by [...] label. If a food does not have aNutrition Facts label, try to look up the calories online or ask your dietitian for help. Remember that calories are listed per serving. If you choose to have more than one serving of a food, you will have to multiply the calories per serving by the amount of servings you plan to eat. Forexample, the label on a package of bread [...] you how many calories you have left forthe day to meet your goal. What are [...] fat free foods. These foods sometimes have thesame amount of calories or more calories than the full fat versions. They also often have added sugar, starch, or salt, to make up for flavor that was removed with the fat. Find a way of tracking calories that works for you. Get creative. Try different apps or programs ifwriting down calories does not work for you. What are some portion control tips? Know how many calories are in a serving. This will help you know how many servings of a certain food you can have. Use a measuring cup to measure serving sizes. You could also try weighing out portions on a kitchenscale. With time, you will be able to [...] serving size may be smaller than what youare used to eating. Check the source of the calories. Make sure the food you are eating is high in vitamins and proteinand low in saturated and trans fats. Shopping [...] steamed. Stay away from items that are buttered,battered, fried, or served with cream sauce. Items [...] a serving of cooked rice is cup orabout the size of half a baseball. Knowing serving sizes will help you be aware of how much food you are eating at restaurants. The list below tells you how big or small some common portion sizes arebased on everyday objects: ?1 oz 4 stacked [...] label. If a food does not have aNutrition Facts label, try to look up the [...] 03/10/2006 Document Revised: 11/27/2018 Document Reviewed: 02/07/2017 [employer] Patient Education 2020 [employer]. 09/03/2021 13:53:06 Benign Prostatic Hyperplasia Benign Prostatic Hyperplasia Benign prostatic hyperplasia (BPH) is an enlarged prostate gland that is caused by the normal agingprocess and not by cancer. The prostate is [...] urethra. Follow these instructions at home: Take gvoa-orv-wnymlaw and prescription medicines only as told by [...] 03/10/2006 Document Revised: 02/02/2019 Document Reviewed: 04/14/2017 [employer] Patient Education 2020 [employer]. Follow Up Care 07/03/2021 15:21:16 With:Umer VALENCIA MD, URL Address: [facility] [address] [place] [address] [phone] When:Within 3 Month(s) Comments:f/u in 3 months with PVR scan [facility] evaluation + Plan note Future Appointments Appointment Date:12/03/2021 01:15:00 PM Scheduled Provider:Umer VALENCIA MD Location:[facility] Appointment Type:URO Office Visit [facility] evaluation + Plan note Future Appointments Appointment Date:04/08/2022 12:45:00 PM Scheduled Provider:Umer VALENCIA MD Location:[facility] Appointment Type:URO Office Visit [facility] evaluation + Plan note Future Appointments Appointment Date:04/26/2022 10:15:00 AM Scheduled Provider:Umer VALENCIA MD Location:[facility] Appointment Type:URO Office Visit [facility] evaluation + Plan note Future Appointments Appointment Date:07/22/2022 08:45:00 AM Scheduled Provider:Umer VALENCIA MD Location:[facility] Appointment Type:URO Office Visit [facility] evaluation + Plan note Future Appointments Appointment Date:12/20/2022 08:30:00 AM Scheduled Provider:Umer VALENCIA MD Location:[facility] Appointment Type:URO Office Visit [facility] evaluation + Plan note Future Appointments Appointment Date:11/11/2023 01:00:00 PM Scheduled Provider:RAUL Ingram APRN Marianela Jennifer Location:[facility] Appointment Type:URO Office Visit [facility] evaluation + Plan note Future Appointments Appointment Date:02/10/2024 12:30:00 PM Scheduled Provider:RAUL Ingram APRN Marianela Jennifer Location:[facility] Appointment Type:URO Office Visit [facility] evaluation note* Diagnosis Localized edema- Primary Edema Acute cough documented in this encounter [facility]* Diagnosis Edema, unspecified type- Primary Altered mental status, unspecified altered mental status type documented in this encounter [facility]* Diagnosis Acute cough- Primary Upper respiratory tract infection, unspecified type Localized edema Edema documented [facility]* Diagnosis Pneumonia due to infectious organism, unspecified laterality, unspecified part of lung- Primary Cellulitis of left lower extremity Falls, subsequent encounter Dementia without behavioral disturbance, psychotic disturbance, mood disturbance, or anxiety, unspecified dementia severity, unspecified dementia type ([facility]) Depression, unspecified depression type Essential hypertension Unspecified essential hypertension Type 2 diabetes mellitus without complication, without long-term current use of insulin ([facility]) [facility] Diagnosis Dementia without behavioral disturbance, psychotic disturbance, mood disturbance, or anxiety, unspecified dementia severity, unspecified dementia type ([facility] Primary Falls, subsequent encounter Hypertension associated with 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 ([facility]) Back pain, unspecified back location, unspecified back pain laterality, unspecified chronicity [facility] Diagnosis Dementia without behavioral disturbance, psychotic disturbance, mood disturbance, or anxiety, unspecified dementia severity, unspecified dementia type ([facility])- Primary Hypertension associated with 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 ([facility]) Falls, subsequent encounter [facility] Diagnosis Bilateral lower extremity edema- Primary Type 2 diabetes mellitus with diabetic nephropathy, without long-term current use of insulin ([facility]) Hypokalemia Hypopotassemia documented [facility]* Diagnosis Hypertension associated with 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 ([facility])- Primary Dementia without behavioral disturbance, psychotic disturbance, mood disturbance, or anxiety, unspecified dementia severity, unspecified dementia type ([facility]) Benign prostatic hyperplasia with lower urinary tract symptoms, symptom details unspecified Hypernatremia Hyperosmolality and/or hypernatremia [facility] Narrative No data available for this section [facility] Hospital Discharge instructions No data available for this section [facility] InstructionsNot on filedocumented in this encounter [facility] filedocumented in this [facility] filedocumented in this encounter [facility] filedocumented in this encounter [facility] No data available for this section [facility] Jillian Summary Purpose Family History No Family History [...] section and content) DATE CREATED AUTHOR [facility] DATE CREATED AUTHOR AUTHOR'S ORGANIZ ATION 08/02/2022 [facility] DATE CREATED AUTHOR AUTHOR'S ORGANIZ ATION [facility]/17[facility]2023 [facility] DATE CREATED AUTHOR AUTHOR'S ORGANIZ ATION 11/24/2023 [facility] DATE CREATED AUTHOR AUTHOR'S ORGANIZ ATION 12/07/2023 [facility] DATE CREATED AUTHOR AUTHOR'S ORGANIZ ATION 01/31/2024 [facility] EPIC DATE CREATED AUTHOR AUTHOR'S ORGANIZ ATION 02/13/2024 [facility] Care Team (unrecognized sect ion and content) Catalyst Operator Chief Relationship Specialty Start Date End Date Juan Pablo Alaniz MD [address] [facility] [address] [place] [address] PCP - Peg CHURCHILL 03/24/21 Juan Pablo Alaniz MD [address] [place] [address] PCP - General Internal Medicine 07/30/22 Catalyst Operator Chief Relationship Specialty Start Date End Date Juan Pablo Alaniz MD [address] [place] [address] PCP - Peg CHURCHILL 03/24/21 Juan Pablo Alaniz MD [address] [place] [address] PCP - General Internal Medicine 07/30/22 Catalyst Operator Chief Relationship Specialty Start Date End Date Juan Pablo Alaniz MD [address] [place] [address] PCP - Peg CHURCHILL 03/24/21 Juan Pablo Alaniz MD [address] [place] [address] PCP - General Internal Medicine 07/30/22 Catalyst Operator Chief Relationship Specialty Start Date End Date Juan Pablo Alaniz MD [address] [place] [address] PCP - Peg CHURCHILL 03/24/21 Juan Pablo Alaniz MD [address] [place] [address] PCP - General Internal Medicine 07/30/22 Catalyst Operator Chief Relationship Specialty Start Date End Date Juan Pablo Alaniz MD [address] [place] [address] PCP - Peg CHURCHILL 03/24/21 Juan Pablo Alaniz MD [address] [place] [address] PCP - General Internal Medicine 07/30/22 Catalyst Operator Chief Relationship Specialty Start Date End Date Juan Pablo Alaniz MD [address] [place] [address] PCP - Peg CHURCHILL 03/24/21 Juan Pablo Alaniz MD [address] [place] [address] PCP - General Internal Medicine 07/30/22 Catalyst Operator Chief Relationship Specialty Start Date End Date Juan Pablo Alaniz MD [address] [place] [address] PCP - Peg CHURCHILL 03/24/21 Juan Pablo Alaniz MD [address] [place] [address] PCP - General Internal Medicine 07/30/22 Catalyst Operator Chief Relationship Specialty Start Date End Date Juan Pablo Alaniz MD [address] [place] [address] PCP - Peg CHURCHILL 03/24/21 Juan Pablo Alaniz MD [address] [place] [address] PCP - General Internal Medicine 07/30/22 Catalyst Operator Chief Relationship Specialty Start Date End Date Juan Pablo Alaniz MD [address] [place] [address] PCP - Peg CHURCHILL 03/24/21 Juan Pablo Alaniz MD [address] [place] [address] PCP - General Internal Medicine 07/30/22 Catalyst Operator Chief Relationship Specialty Start Date End Date Juan Pablo Alaniz MD [address] [place] [address] PCP - Peg CHURCHILL 03/24/21 Juan Pablo Alaniz MD [address] [facility] [address] [place] [address] PCP - General Internal Medicine 07/30/22 Catalyst Operator Chief Relationship Specialty Start Date End Date Juan Pablo Alaniz MD [address] [facility] [place] [address] PCP - Peg CHURCHILL 03/24/21 Juan Pablo Alaniz MD [address] [facility] [address] [place] [address] PCP - General Internal Medicine 07/30/22 Reason [...] BE BASED ON THE PRIMARY CLINICAL RECORDS. [facility]. provides no warranty or guarantee of the accuracy or completeness of information in this document.
--- NOTE | 2024-04-14 02:25 | PC.NURSE ---
this patient arrives via ems from a senior living fall while standing position, nursing staff heard something and found patient on the floor, awake and alert. ems applied c-collar
--- NOTE | 2024-04-14 02:27 | CT_ITS ---
The [address] [address] Patient Name: NAT MOORE MRN: [id number] date: 1940 Sex: M Assigned Patient Location: ER Current Patient Location: Accession/Order Number: [id number] Exam Date: 04/14/2024 02:35 Report Date: 04/14/2024 04:07 At the request of: LALO CHANEY Procedure: CT cervical spine wo con EXAM: CT cervical spine wo con HISTORY: fall COMPARISON: None. TECHNIQUE: Axial images of the cervical spine were obtained without contrast enhancement. Sagittal and coronal reformations were provided. Dose reduction techniques were achieved by using automated exposure control and/or adjustment of mA and/or kV according to patient size and/or use of iterative reconstruction technique . COMMENT: The lack of intradural contrast and streak artifact from bone about the vertebral column limit evaluation for disc protrusion, bulge and the spinal canal in general. FINDINGS: ALIGNMENT/BONY STRUCTURES: No CT evidence of an acute fracture, subluxation or loss of vertebral body height. Loss of disc space and endplate osteophytes are seen at several levels. No malalignment at the craniocervical junction. CORD: The cord is poorly seen and not well evaluated. OTHER SPINAL FINDINGS: None. DISC SPACES: While assessment is again suboptimal on this noncontrast CT, there areas of canal narrowing due to disc bulging and associated endplate osteophyte. Uncovertebral spurring and facet degenerative change also results in areas of foraminal stenosis. NONSPINAL FINDINGS: There is a cardiac pacemaker. CT/CT cervical spine wo con IMPRESSION: 1. Cervical spondylosis without CT evidence of an acute fracture. 2. There is a cardiac pacemaker which is a potential contraindication to further evaluation with MRI. Electronically authenticated by: AIDAN LEIVA Date: 04/14/2024 04:07
--- NOTE | 2024-04-14 02:27 | CT_ITS ---
The [address] [address] Patient Name: NAT MOORE MRN: [id number] date: 1940 Sex: M Assigned Patient Location: ER Current Patient Location: ER Accession/Order Number: [id number] Exam Date: 04/14/2024 02:35 Report Date: 04/14/2024 04:02 At the request of: LALO CHANEY Procedure: CT head/brain wo con EXAM: CT head/brain wo con HISTORY: fall COMPARISON: CT head from 02/01/2024. TECHNIQUE: Axial images of the brain were obtained from the skull base to the vertex without contrast enhancement. Sagittal and coronal reformations were provided. FINDINGS: No acute intracranial hemorrhage, extra-axial fluid collection, midline shift shift or mass effect is seen. No space-occupying lesion is demonstrated. Sulcal and ventricular prominence is compatible with intracranial volume loss. Areas of relatively diminished attenuation are seen within the hemispheric white matter. While nonspecific, they likely reflect chronic microvascular ischemic change. No CT evidence of an acute ischemic event. There are scattered intracranial vascular calcifications. Mucosal thickening is present within the paranasal sinuses. The mastoids are well-aerated. Bone windows reveal no evidence of an acute calvarial fracture. CT/CT head/brain wo con IMPRESSION: 1. No CT evidence of an acute intracranial hemorrhage or acute calvarial fracture. 2. Intracranial volume loss and probable superimposed chronic microvascular ischemic change. Electronically authenticated by: AIDAN LEIVA Date: 04/14/2024 04:02
--- NOTE | 2024-04-14 02:30 | ED_ITS ---
HPI HPI - General Adult General Chief complaint: Fall Stated complaint: FALL Time Seen by Provider: 04/14/24 02:23 Source: other Source information: EMS Mode of arrival: ambulance Limitations: physical limitation History of Present Illness HPI narrative: 83-year-old male presents to the emergency department for evaluation following a fall. He does not remember what happened, he has dementia. According to skilled nursing staff he fell and apparently hit the back of his head. He comes in with a c-collar in place, placed by paramedics. Nursing staff seem to be co ncerned about his hip but did not indicate which 1. The patient does not seem to be complaining of hip pain. Related Data Home Medications ?Medication ?Instructions ?Recorded ?Confirmed allopurinol 300 mg tablet 300 mg PO DAILY 07/26/23 02/16/24 docusate sodium 100 mg capsule 100 mg PO DAILY PRN constipation 07/26/23 02/16/24 donepezil 10 mg tablet 10 mg PO BEDTIME 07/26/23 02/16/24 fluoxetine 20 mg capsule 20 mg PO DAILY 07/26/23 02/16/24 gabapentin 100 mg capsule 200 mg PO TID 07/26/23 02/16/24 glipizide 10 mg tablet 10 mg PO BID 07/26/23 02/16/24 methocarbamol 500 mg tablet 500 mg PO BEDTIME 07/26/23 02/16/24 omeprazole 40 mg capsule,delayed 40 mg PO .ACB 07/26/23 02/16/24 release tamsulosin 0.4 mg capsule 0.4 mg PO DAILY 07/26/23 02/16/24 furosemide 40 mg tablet 40 mg PO DAILY 11/15/23 02/16/24 potassium chloride 20 mEq 20 meq PO DAILY 11/15/23 02/16/24 tablet,extended release(part/cryst) trospium 60 mg capsule,extended 60 mg PO DAILY 11/15/23 02/16/24 release 24 hr amlodipine 5 mg tablet 5 mg PO .QD 01/22/24 02/16/24 aspirin 81 mg chewable tablet 1 tab PO .QD 01/22/24 02/16/24 atorvastatin 40 mg tablet 40 mg PO .QHS 01/22/24 02/16/24 fluoxetine 10 mg capsule 10 mg PO DAILY 01/22/24 02/16/24 quetiapine 25 mg tablet 25 mg PO BID 01/22/24 02/16/24 trazodone 100 mg tablet 100 mg PO .QHS 01/22/24 02/16/24 lidocaine 5 % topical patch 1 patch topical QAM 02/01/24 02/16/24 Previous Rx's ?Medication ?Instructions ?Recorded candesartan 32 mg tablet (Atacand) 32 mg PO DAILY #30 tabs 10/07/23 magnesium oxide 400 mg (241.3 mg 400 mg PO BID #60 tabs 02/03/24 magnesium) tablet Allergies Allergy/AdvReac Type Severity Reaction Status Date / Time Penicillins Allergy Intermediate Unknown Verified 04/14/24 02:12 Opioid HPI Opioid Management Most Recent Opioid Data: Last Pain Scale 0 02/16/24 15:08 02/16/24 Last ORT Total Score 0 02/15/24 22:59 02/15/24 Last ORT Risk Category Low Risk 02/15/24 22:59 02/15/24 Ur Phencyclidine Scrn Negative (NEGATIVE) 07/26/23 08:10 05/0 07/15 Review of Systems ROS Narrative Not obtainable, dementia [facility] Medical History (Updated 04/14/24 @ 05:52 by Micha Cheng MD) Dementia ?F03.90 - Unspecified dementia, unspecified severity, without behavioral disturbance, psychotic disturbance, mood disturbance, and anxiety (ICD-10) CKD stage 3a, GFR 45-59 ml/min ?N18.31 - Chronic kidney disease, stage 3a (ICD-10) Cellulitis ?L03.90 - Cellulitis, unspecified (ICD-10) Pneumonia ?J18.9 - Pneumonia, unspecified organism (ICD-10) Generalized weakness ?R53.1 - Weakness (ICD-10) Accidental fall ?W19.XXXA - Unspecified fall, initial encounter (ICD-10) History of pacemaker ?Z95.0 - Presence of cardiac pacemaker (ICD-10) Vomiting ?R11.10 - Vomiting, unspecified (ICD-10) Acute metabolic encephalopathy ?G93.41 - Metabolic encephalopathy (ICD-10) 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 (ICD-10) Low back pain ?M54.50 - Low back pain, unspecified (ICD-10) Dementia ?F03.90 - Unspecified dementia, unspecified severity, without behavioral disturbance, psychotic disturbance, mood disturbance, and anxiety (ICD-10) Depression ?F32.A - Depression, unspecified (ICD-10) Hyperuricemia ?E79.0 - Hyperuricemia without signs of inflammatory arthritis and tophaceous disease (ICD-10) HLD (hyperlipidemia) ?E78.5 - Hyperlipidemia, unspecified (ICD-10) Type 2 diabetes mellitus ?E11.9 - Type 2 diabetes mellitus without complications (ICD-10) HTN (hypertension) ?I10 - Essential (primary) hypertension (ICD-10) Surgical History Pacemaker ?Z95.0 - Presence of cardiac pacemaker (ICD-10) Social History (Updated 01/22/24 @ 18:51 by Kalli Middleton) Within the past year, how often did you have a drink containing alcohol: never Within the past year, how many standard drinks containing alcohol did you have on a typical day: 1 or 2 Within the past year, how often did you have six or more drinks on one occasion: never Total score: 0 Score interpretation: A score less than 4 is consistent with normal alcohol consumption. Smoking status: Never smoker Non-prescribed substance use: denies use Highest level of school completed/degree received: high school graduate Are you now , , , , never or living with a partner: Little interest or pleasure in doing things: not at all Feeling down, depressed, or hopeless: not at all Feel stressed/tense/nervous/anxious/difficulty sleeping: not at all Do you think of yourself as: straight/heterosexual Gender Identity: male Gender Identity Comment: Inability to assess at present time due to extent of pt's Dementia. Exam Narrative Exam Narrative: Nurses note and vital signs reviewed and patient is not hypoxic. General: The patient appears in no apparent distress. Patient has a c-collar in place Skin: Warm, dry, no pallor noted. There is no rash noted. Head: Normocephalic, atraumatic no laceration or hematoma or abrasion is noted to his scalp. Eye: Normal conjunctiva, no drainage Ears, Nose, Mouth, and Throat: oral mucosa is moist. Nares patent. Cardiovascular: Regular Rate and Rhythm Respiratory: Patient is in no distress, no accessory muscle use, lungs are clear to auscultation, no wheezing, rales or rhonchi Back: non-tender in the lumbar and thoracic area GI: Soft and nontender Musculoskeletal: No palpable tenderness to his arms or legs. Hips and knees are both flexed. Neurological: Awake and alert. He knows his name and that he is in the hospital. Psychiatric: Cooperative Constitutional Vital Signs, click to edit/add: Last Vital Signs Temp 98.1 F 04/14/24 04:28 Pulse 60 04/14/24 03:04 Resp 19 04/14/24 03:04 BP 123/56 04/14/24 03:04 Pulse Ox 98 04/14/24 03:04 O2 Del Method Room Air 04/14/24 02:08 Course Vital Signs Vital signs: Vital Signs Pulse Rate 60 04/14/24 02:08 Respiratory Rate 16 04/14/24 02:08 Blood Pressure 110/43 L 04/14/24 02:08 Pulse Oximetry 98 04/14/24 02:08 Oxygen Delivery Method Room Air 04/14/24 02:08 Temperature 98.1 F 04/14/24 04:28 Pulse Rate 60 04/14/24 03:04 Respiratory Rate 19 04/14/24 03:04 Blood Pressure 123/56 04/14/24 03:04 Pulse Oximetry 98 04/14/24 03:04 Oxygen Delivery Method Room Air 04/14/24 02:08 Medical Decision Making MDM Narrative Medical decision making narrative: Scans of head, C-spine, and both hips are all negative. He is released back to [facility]. Differential Diagnosis Differential Diagnosis: Intracranial hemorrhage, contusion, C-spine fracture, muscle strain Imaging Data CT scan - head: Radiologist's impression: ITS Impressions Cervical Spine CT 04/14/24 02:27 IMPRESSION: 1. Cervical spondylosis without CT evidence of an acute fracture. 2. There is a cardiac pacemaker which is a potential contraindication to further evaluation with MRI. Electronically authenticated by: AIDAN LEIVA Date: 04/14/2024 04:[address] 04/14/24 02:27 IMPRESSION: 1. No CT evidence of an acute intracranial hemorrhage or acute calvarial fracture. 2. Intracranial volume loss and probable superimposed chronic microvascular ischemic change. Electronically authenticated by: AIDAN LEIVA Date: 04/14/2024 04:[address] 04/14/24 02:30 IMPRESSION: No acute fracture of the hips Electronically authenticated by: ELIUD PIERSON Date: 04/14/2024 05:[address] 04/14/24 02:30 IMPRESSION: No acute fracture of the hips Electronically authenticated by: ELIUD PIERSON Date: 04/14/2024 05:36 Discharge Plan Discharge Chief Complaint: Fall Clinical Impression: Fall Patient Disposition: Home, Self-Care Time of Disposition Decision: 05:51 Condition: Good Mode of Transportation: EMS Prescriptions / Home Meds: No Action allopurinol 300 mg tablet 300 mg PO DAILY docusate sodium 100 mg capsule 100 mg PO DAILY PRN (Reason: constipation) donepezil 10 mg tablet 10 mg PO BEDTIME fluoxetine 20 mg capsule 20 mg PO DAILY gabapentin 100 mg capsule 200 mg PO TID glipizide 10 mg tablet 10 mg PO BID methocarbamol 500 mg tablet 500 mg PO BEDTIME omeprazole 40 mg capsule,delayed release(DR/EC) 40 mg PO .ACB tamsulosin 0.4 mg capsule 0.4 mg PO DAILY furosemide 40 mg tablet 40 mg PO DAILY potassium chloride 20 mEq tablet,ER particles/crystals 20 meq PO DAILY trospium 60 mg capsule,extended release 24hr 60 mg PO DAILY candesartan [Atacand] 32 mg tablet 32 mg PO DAILY Qty: 30 11RF fluoxetine 10 mg capsule 10 mg PO DAILY quetiapine 25 mg tablet 25 mg PO BID trazodone 100 mg tablet 100 mg PO .QHS amlodipine 5 mg tablet 5 mg PO .QD aspirin 81 mg tablet,chewable 1 tab PO .QD atorvastatin 40 mg tablet 40 mg PO .QHS lidocaine 5 % adhesive patch,medicated 1 patch topical QAM Patient Comments: 12 hrs on and 12 hrs off magnesium oxide 400 mg (241.3 mg magnesium) Tablet 400 mg PO BID Qty: 60 11RF Print Language: Turkmen Instructions: Fall Prevention for Older Adults (ED) Referrals: JASON CRUZ [Primary Care Provider] - 1 week
--- NOTE | 2024-04-14 02:30 | CT_ITS ---
[address] [address] Patient Name: NAT MOORE MRN: [id number] date: 1940 Sex: M Assigned Patient Location: ER Current Patient Location: ED.MAIN Accession/Order Number: [id number] Exam Date: 04/14/2024 02:35 Report Date: 04/14/2024 05:36 At the request of: LALO CHANEY Procedure: CT hip RT wo con EXAMINATION: CT hip RT wo con, CT hip LT wo con HISTORY: fall COMPARISON: No relevant comparison available. TECHNIQUE: Multi-planar CT images were created without IV contrast. Dose reduction techniques were achieved by using automated exposure control and/or adjustment of mA and/or kV according to patient size and/or use of iterative reconstruction technique. FINDINGS: Right hip: BONES: No acute fracture or dislocation. Mild osteoarthropathy with minimal marginal osteophyte formation of the acetabulum SOFT TISSUES: Negative. No visible soft tissue swelling. EFFUSION: None visible. OTHER: Vascular calcifications Left hip: BONES: No acute fracture or dislocation. Mild osteoarthropathy with minimal marginal osteophyte formation of the acetabulum SOFT TISSUES: Negative. No visible soft tissue swelling. EFFUSION: None visible. OTHER: Vascular calcifications CT/CT hip RT wo con IMPRESSION: No acute fracture of the hips Electronically authenticated by: ELIUD PIERSON Date: 04/14/2024 05:36
--- NOTE | 2024-04-14 02:30 | CT_ITS ---
[address] [address] Patient Name: NAT MOORE MRN: [id number] date: 1940 Sex: M Assigned Patient Location: ER Current Patient Location: ED.MAIN Accession/Order Number: [id number] Exam Date: 04/14/2024 02:35 Report Date: 04/14/2024 05:36 At the request of: LALO CHANEY Procedure: CT hip LT wo con EXAMINATION: CT hip RT wo con, CT hip LT wo con HISTORY: fall COMPARISON: No relevant comparison available. TECHNIQUE: Multi-planar CT images were created without IV contrast. Dose reduction techniques were achieved by using automated exposure control and/or adjustment of mA and/or kV according to patient size and/or use of iterative reconstruction technique. FINDINGS: Right hip: BONES: No acute fracture or dislocation. Mild osteoarthropathy with minimal marginal osteophyte formation of the acetabulum SOFT TISSUES: Negative. No visible soft tissue swelling. EFFUSION: None visible. OTHER: Vascular calcifications Left hip: BONES: No acute fracture or dislocation. Mild osteoarthropathy with minimal marginal osteophyte formation of the acetabulum SOFT TISSUES: Negative. No visible soft tissue swelling. EFFUSION: None visible. OTHER: Vascular calcifications CT/CT hip LT wo con IMPRESSION: No acute fracture of the hips Electronically authenticated by: ELIUD PIERSON Date: 04/14/2024 05:36
[2024-04-14 03:04] VITALS: BP 123/56; PULSE 60; O2SAT 98
[2024-04-14 04:28] VITALS: TEMP 36.7
--- NOTE | 2024-04-14 09:22 | PC.NURSE ---
[facility] arrives at this time.
[2024-04-14 09:29] VITALS: BP 115/81; PULSE 64; O2SAT 98
== END 2024-04-14 09:32 | disposition home or self-care (01) ==
PROVIDERS: Emergency Provider Emergency Medicine; PCP Internal Medicine
DX: Z04.3 Encounter for examination and observation following other accident (principal); W19.XXXA Unspecified fall, initial encounter; F03.90 Unspecified dementia, unspecified severity, without behavioral disturbance, psychotic disturbance, mood disturbance, and anxiety; M47.812 Spondylosis without myelopathy or radiculopathy, cervical region; Z95.0 Presence of cardiac pacemaker
CPT/HCPCS: 70450; 72125; 73700; 99284

== ENCOUNTER 2024-04-27 23:48 | Inpatient (IN) | payer MEDICARE, SELFPAY ==
[2024-04-27 23:49] VITALS: BP 63/30; PULSE 61; O2SAT 91; BMI 28.5
--- NOTE | 2024-04-27 23:49 | XR_ITS ---
The [address] [address] Patient Name: NAT MOORE MRN: [id number] date: 1940 Sex: M Assigned Patient Location: ED.MAIN Current Patient Location: ER Accession/Order Number: [id number] Exam Date: 04/27/2024 23:58 Report Date: 04/28/2024 00:51 At the request of: MILENA MARKER Procedure: XR chest 1V SINGLE VIEW CHEST: 04/27/2024 11:58 PM EST CLINICAL HISTORY:SOB/aspiration COMPARISONS: 02/01/2024 TECHNIQUE: Single frontal view of the chest, utilizing portable technique. Portable radiography should be considered a technically compromised study. Strongly consider dedicated PA and lateral chest radiographs, as clinically indicated. FINDINGS: LINES AND TUBES: Cardiac conduction device and pacemaker leads in good position. External cardiac monitoring leads. CARDIAC SILHOUETTE: Stable appearance of cardiac silhouette, upper limits normal. MEDIASTINAL AND HILAR CONTOUR: Within normal limits. PULMONARY PARENCHYMA AND PLEURA: Diminished lung volumes results in some crowding of lung markings and vessels. No consolidation, edema, effusion, or pneumothorax. OSSEOUS STRUCTURES:Nothing significant. OTHER COMMENTS:None. XR/XR chest 1V IMPRESSION: Diminished lung volumes limit assessment. Overall stable from prior without obvious acute process. This report was generated with voice recognition software. Effort has been made to ensure accuracy of this report, however, occasional wording errors may persist. Please contact our office with any questions. Electronically authenticated by: FRANSISCO SALAS Date: 04/28/2024 00:51
--- NOTE | 2024-04-27 23:50 | ECG_ITS ---
The [facility] Test Date: 2024-04-27 Pat Name: NAT MOORE Department: Room: - Gender: Male Expense Clerk: : 1940 Requested By: JASON CRUZ Order Number: [id number] Reading MD: COLTON HEADLEY Measurements Intervals [place] Rate: 73 P: -[id number] PA: -[id number] QRS: 156 QRSD: 148 T: 33 QT: 456 QTc: 482 Interpretive Statements [id number] Electronic ventricular pacemaker 9120 atypical ECG Electronically Signed On 04-28-2024 6:50:45 EST by COLTON HEADLEY
--- NOTE | 2024-04-27 23:54 | ED_ITS ---
HPI - Altered Mental Status General Chief Complaint: Altered Mental Status Stated Complaint: AMS Time Seen by Provider: 04/27/24 23:49 Mode of arrival: ambulance Limitations: altered mental status History of Present Illness HPI narrative: This 83-year-old male was transferred from the [facility] where he currently resides for evaluation of altered mental status. The history is unclear. According to the second cook and baker the patient aspirated several hours ago but then became unresponsive when sitting in a chair. There was no sign of any material in his airway according to them. He was poorly responsive upon their arrival with hypotension and minimal responsiveness to painful stimuli. Additional history is obtained from the patient's granddaughter who works at the halfway where he is a resident. She states that he recently had a fall and since that time he has been declining rapidly. He was typically able to ambulate without assistance but has not been able to get up out of bed for the past 1 to 2 weeks. He has been incontinent of urine and stool. He has barely been eating. Her urine was sent from the halfway recently and was negative for infection. Related Data Home Medications ?Medication ?Instructions ?Recorded ?Confirmed allopurinol 300 mg tablet 300 mg PO DAILY 07/26/23 02/16/24 docusate sodium 100 mg capsule 100 mg PO DAILY PRN constipation 07/26/23 02/16/24 donepezil 10 mg tablet 10 mg PO BEDTIME 07/26/23 02/16/24 fluoxetine 20 mg capsule 20 mg PO DAILY 07/26/23 02/16/24 gabapentin 100 mg capsule 200 mg PO TID 07/26/23 02/16/24 glipizide 10 mg tablet 10 mg PO BID 07/26/23 02/16/24 methocarbamol 500 mg tablet 500 mg PO BEDTIME 07/26/23 02/16/24 omeprazole 40 mg capsule,delayed 40 mg PO .ACB 07/26/23 02/16/24 release tamsulosin 0.4 mg capsule 0.4 mg PO DAILY 07/26/23 02/16/24 furosemide 40 mg tablet 40 mg PO DAILY 11/15/23 02/16/24 potassium chloride 20 mEq 20 meq PO DAILY 11/15/23 02/16/24 tablet,extended release(part/cryst) trospium 60 mg capsule,extended 60 mg PO DAILY 11/15/23 02/16/24 release 24 hr amlodipine 5 mg tablet 5 mg PO .QD 01/22/24 02/16/24 aspirin 81 mg chewable tablet 1 tab PO .QD 01/22/24 02/16/24 atorvastatin 40 mg tablet 40 mg PO .QHS 01/22/24 02/16/24 fluoxetine 10 mg capsule 10 mg PO DAILY 01/22/24 02/16/24 quetiapine 25 mg tablet 25 mg PO BID 01/22/24 02/16/24 trazodone 100 mg tablet 100 mg PO .QHS 01/22/24 02/16/24 lidocaine 5 % topical patch 1 patch topical QAM 02/01/24 02/16/24 Previous Rx's ?Medication ?Instructions ?Recorded candesartan 32 mg tablet (Atacand) 32 mg PO DAILY #30 tabs 10/07/23 magnesium oxide 400 mg (241.3 mg 400 mg PO BID #60 tabs 02/03/24 magnesium) tablet Allergies Allergy/AdvReac Type Severity Reaction Status Date / Time Penicillins Allergy Intermediate Unknown Verified 04/14/24 02:12 Review of Systems ROS Status of ROS 10 or more systems reviewed and unremark able except as noted in history and below [facility] Medical History (Updated 04/28/24 @ 02:59 by Jaqueline Dennis MD) Dementia ?F03.90 - Unspecified dementia, unspecified severity, without behavioral disturbance, psychotic disturbance, mood disturbance, and anxiety (ICD-10) CKD stage 3a, GFR 45-59 ml/min ?N18.31 - Chronic kidney disease, stage 3a (ICD-10) Cellulitis ?L03.90 - Cellulitis, unspecified (ICD-10) Pneumonia ?J18.9 - Pneumonia, unspecified organism (ICD-10) Generalized weakness ?R53.1 - Weakness (ICD-10) Accidental fall ?W19.XXXA - Unspecified fall, initial encounter (ICD-10) History of pacemaker ?Z95.0 - Presence of cardiac pacemaker (ICD-10) Vomiting ?R11.10 - Vomiting, unspecified (ICD-10) Acute metabolic encephalopathy ?G93.41 - Metabolic encephalopathy (ICD-10) 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 (ICD-10) Low back pain ?M54.50 - Low back pain, unspecified (ICD-10) Dementia ?F03.90 - Unspecified dementia, unspecified severity, without behavioral disturbance, psychotic disturbance, mood disturbance, and anxiety (ICD-10) Depression ?F32.A - Depression, unspecified (ICD-10) Hyperuricemia ?E79.0 - Hyperuricemia without signs of inflammatory arthritis and tophaceous disease (ICD-10) HLD (hyperlipidemia) ?E78.5 - Hyperlipidemia, unspecified (ICD-10) Type 2 diabetes mellitus ?E11.9 - Type 2 diabetes mellitus without complications (ICD-10) HTN (hypertension) ?I10 - Essential (primary) hypertension (ICD-10) Surgical History Pacemaker ?Z95.0 - Presence of cardiac pacemaker (ICD-10) Social History (Updated 01/22/24 @ 18:51 by Kalli Middleton) Within the past year, how often did you have a drink containing alcohol: never Within the past year, how many standard drinks containing alcohol did you have on a typical day: 1 or 2 Within the past year, how often did you have six or more drinks on one occasion: never Total score: 0 Score interpretation: A score less than 4 is consistent with normal alcohol consumption. Smoking status: Never smoker Non-prescribed substance use: denies use Highest level of school completed/degree received: high school graduate Are you now , , , , never or living with a partner: Little interest or pleasure in doing things: not at all Feeling down, depressed, or hopeless: not at all Feel stressed/tense/nervous/anxious/difficulty sleeping: not at all Do you think of yourself as: straight/heterosexual Gender Identity: male Gender Identity Comment: Inability to assess at present time due to extent of pt's Dementia. Exam Narrative Exam Narrative: Vital signs and Nursing Notes reviewed: General: Poorly responsive elderly male, he opens his eyes to verbal stimuli and sternal rubbing, he is able to squeeze both of my hands, HEENT: Normocephalic atraumatic, mucous membranes are moist and pink, eyes are clear, Neck: Supple, Chest: Coarse bilateral anterior rhonchi, no accessory muscle use CVS: Regular rate and rhythm S1-S2, no murmurs rubs or gallops, pulses are weak ABD: Soft, nondistended, nontender, no rebound guarding or rigidity, bowel sounds are normal, no pulsatile masses appreciated Extremities: Nonpitting edema to both lower extremities. Patient is able to squeeze my hands Skin: Normal in appearance without rash,pallor, petechiae or purpura Neuro: Patient opens his eyes to verbal stimuli and sternal rubbing, able to squeeze my hands, otherwise poorly responsive Constitutional Vital Signs, click to edit/add: Last Vital Signs Temp 92.1 F L 04/28/24 00:14 Pulse 78 04/28/24 02:50 Resp 30 H 04/28/24 02:50 BP 135/109 H 04/28/24 02:45 Pulse Ox 75 L 04/28/24 02:24 O2 Del Method Simple Mask 04/28/24 01:18 O2 Flow Rate 6 04/28/24 01:18 FiO2 6 04/28/24 00:09 Course Vital Signs Vital signs: Vital Signs Pulse Rate 61 04/27/24 23:49 Respiratory Rate 20 04/27/24 23:49 Blood Pressure 63/30 L 04/27/24 23:49 Pulse Oximetry 91 L 04/27/24 23:49 Oxygen Delivery Method Room Air 04/27/24 23:49 Temperature 92.1 F L 04/28/24 00:14 Pulse Rate 78 04/28/24 02:50 Respiratory Rate 30 H 04/28/24 02:50 Blood Pressure 135/109 H 04/28/24 02:45 Pulse Oximetry 75 L 04/28/24 02:24 Oxygen Delivery Method Simple Mask 04/28/24 01:18 Oxygen Delivery Flow Rate 04/28/24 01:18 Fraction of Inspired Oxygen 04/28/24 00:09 MDM - Altered Mental Status MDM Narrative Medical decision making narrative: This 83-year-old male is brought to the emergency department by EMS after he became unresponsive while sitting in a chair. The halfway staff stated that he choked on his dinner earlier in the evening but then cleared his airway and he was sitting outside the nurses station. They were called away to see another patient and when they came back he was unresponsive. EMS was called. The patient was poorly responsive for them with hypotension. According to the patient's granddaughter he has been severely declining over the course of the past several weeks after a recent fall. Upon arrival the patient was noted to be hypotensive and moderately hypoxic. Respiratory therapy was called and a blood gas was ordered. He has metabolic acidosis with a pH of 7.246 with a mildly decreased pCO2. He was given a DuoNeb treatment and placed on supplemental oxygen. EKG was a paced rhythm. He was given 2 L of normal saline and his blood pressure remained low and he was started on Levophed. Empiric antibiotics to cover aspiration pneumonia with were given to him including vancomycin and imipenem. His white count is elevated at 11.4 with a mildly decreased hemoglobin of 9.1. There is not any sign of active bleeding. Sodium is elevated at 148. BUN and creatinine are markedly elevated at 85 and 4.18. Potassium is elevated at 7.2. Troponin is normal at 11.8. BNP is normal at 223. Lactic acid is elevated at 2.6. He is negative for COVID-19 and influenza. Chest x-ray was reviewed by radiology with no acute findings. He was treated for the hyperkalemia with IV sodium bicarbonate, 10 units of IV insulin, dextrose and calcium gluconate. He did become more responsive after this treatment. Blood pressure improved both after the treatment for the hyperkalemia and the pressors. I had a lengthy discussion with the patient's daughter and life partner about his current situation and condition. They verbalized understanding of the critical nature of his current illness including low blood pressure, kidney failure. They also verbalized the fact that he has been decompensating over the course of the past several weeks. The patient's CODE STATUS upon arrival was still full code. I explained to the family that in light of that he would have to be transferred to higher level of care and could not be managed at this facility. The family is adamant that he stays at this facility and verbalized understanding of the change in his CODE STATUS to DNR comfort care. Both the daughter and the patient's significant other who is not legally his signed the DNR paperwork verbalizing understanding of the critical nature of the situation and that he would not receive CPR or intubation if admitted to this facility. His CODE STATUS was then changed to DNR comfort care. After his treatment for the hyperkalemia before he was transferred to the floor repeat labs were ordered and his potassium has worsened from 7.2-7.4 and then 7.6 and his creatinine has also worsened. Lactic acid has improved and on repeat testing is 1.8 This may be related to the vancomycin he received upon arrival before I knew that he had acute kidney failure. He was retreated with an additional IV bicarb, 10 units of IV insulin and dextrose, D50. He is much more alert, talkative and had a large bowel movement while in the ER. Will repeat this 1 more time before he is transferred to the floor. His vital signs have improved and he remains on NS IVF. Despite the second treatment for the rising potassium, his blood pressure is continuing to decline and his repeat K is again 7.6. Medical Records Attestation: I reviewed the patient's medical records. Lab Data Attestation: I reviewed the patient's lab results. Labs: Lab Results 04/27/24 04/27/24 04/28/24 Range/Units 23:40 23:54 00:15 WBC 11.4 H (4.0-11.0) 10^3/uL RBC 2.85 L (4.70-6.10) 10^6/uL Hgb 9.1 L (14.0-18.0) g/dL Hct 29.1 L (42.0-54.0) % MCV 102.1 H (80.0-94.0) fL MCH 31.9 (25.9-34.0) pg MCHC 31.3 (29.9-35.2) g/dL RDW 15.5 H (11.0-15.0) % Plt Count 71 L (150-450) 10^3/uL MPV 12.7 (9.5-13.5) fL Neut % (Auto) 89.2 H (43.0-75.0) % Lymph % (Auto) 6.0 L (20.5-60.0) % [place] % (Auto) 3.6 (1.7-12.0) % Eos % (Auto) 0.6 L (0.9-7.0) % Baso % (Auto) 0.3 (0.2-2.0) % Neut # (Auto) 10.2 H (1.4-6.5) 10^3/uL Lymph # (Auto) 0.7 L (1.2-3.8) 10^3/uL [place] # (Auto) 0.4 (0.3-0.8) 10^3/uL Eos # (Auto) 0.1 (0.0-0.7) 10^3/uL Baso # (Auto) 0.0 (0.0-0.1) 10^3/uL Abs Immat Gran (auto) 0.03 (0.00-0.03) 10^3/uL Imm/Tot Granulo (auto) 0.3 (0.0-0.5) % Puncture Site R radial ABG pH 7.246 L* (7.350-7.450) ABG pCO2 44.6 (35.0-45.0) mmHg ABG pO2 76.5 L (80.0-100.0) mmHg ABG HCO3 19.3 L (22.0-26.0) mmol/L ABG O2 Saturation 94.6 % ABG Base Excess -8.0 L (-2.0-2.0) mmol/L Bobby Test Positive (POSITIVE) Sodium 148 H (136-145) mmol/L Potassium 7.2 H* (3.5-5.1) mmol/L Chloride 117 H (98-107) mmol/L Carbon Dioxide 22.2 (21.0-32.0) mmol/L Anion Gap 16.0 BUN 85.0 H* (7.0-18.0) mg/dL Creatinine 4.18 H (0.70-1.30) mg/dL Est GFR ( Amer) 17 L (>=60 mL/min/1.73m^2) Est GFR (Non-Af Amer) 14 L (>=60 mL/min/1.73m^2) BUN/Creatinine Ratio 20.3 Glucose 119 H (74-106) mg/dL Lactate 2.6 H* (0.4-2.0) mmol/L Calcium 8.2 L (8.5-10.1) mg/dL Total Bilirubin 0.3 (0.2-1.0) mg/dL AST 27 (15-37) U/L ALT 60 (16-63) U/L Alkaline Phosphatase 84 (46-116) U/L Troponin I High Sens 11.8 (4.0-76.1) pg/mL NT-Pro-B Natriuret Pep 223.0 (<=1800.0) pg/mL Total Protein 5.4 L (6.4-8.2) g/dL Albumin 2.5 L (3.4-5.0) g/dL Globulin 2.9 g/dL Albumin/Globulin Ratio 0.9 Urine Color Dk. brown (YELLOW) Urine Clarity Clear (CLEAR) Urine pH 5.0 (5.0-9.0) Ur Specific [place] 1.020 (1.005-1.025) Urine Protein 30 A (NEG/TRACE) mg/dL Urine Glucose (UA) Negative (NEGATIVE) mg/dL Urine Ketones Trace A (NEGATIVE) mg/dL Urine Occult Blood Large A (NEGATIVE) Urine Nitrite Negative (NEGATIVE) Urine Bilirubin Negative (NEGATIVE) Urine Urobilinogen 0.2 (0.2-1.0) EU/dL Ur Leukocyte Esterase Trace A (NEGATIVE) Urine RBC >100 A (0-2) #/HPF Urine WBC 2-5 A (NONE SEEN) #/HPF Ur Squamous Epith Cells Rare (NONE/RARE) #/LPF Urine Crystals None seen (None Seen) #/HPF Urine Bacteria Moderate A (NONE SEEN) #/HPF Urine Casts Seen A (NONE SEEN) #/LPF Hyaline Casts Rare Urine Mucus None seen (NONE SEEN) Ur Culture Indicated? Yes Influenza Type A Ag Influenza Type B Ag SARS-CoV-2 Ag (CV2AG) (NEGATIVE) 04/28/24 04/28/24 04/28/24 Range/Units 00:20 02:40 04:00 WBC (4.0-11.0) 10^3/uL RBC (4.70-6.10) 10^6/uL Hgb (14.0-18.0) g/dL Hct (42.0-54.0) % MCV (80.0-94.0) fL MCH (25.9-34.0) pg MCHC (29.9-35.2) g/dL RDW (11.0-15.0) % Plt Count (150-450) 10^3/uL MPV (9.5-13.5) fL Neut % (Auto) (43.0-75.0) % Lymph % (Auto) (20.5-60.0) % [place] % (Auto) (1.7-12.0) % Eos % (Auto) (0.9-7.0) % Baso % (Auto) (0.2-2.0) % Neut # (Auto) (1.4-6.5) 10^3/uL Lymph # (Auto) (1.2-3.8) 10^3/uL [place] # (Auto) (0.3-0.8) 10^3/uL Eos # (Auto) (0.0-0.7) 10^3/uL Baso # (Auto) (0.0-0.1) 10^3/uL Abs Immat Gran (auto) (0.00-0.03) 10^3/uL Imm/Tot Granulo (auto) (0.0-0.5) % Puncture Site ABG pH (7.350-7.450) ABG pCO2 (35.0-45.0) mmHg ABG pO2 (80.0-100.0) mmHg ABG HCO3 (22.0-26.0) mmol/L ABG O2 Saturation % ABG Base Excess (-2.0-2.0) mmol/L Bobby Test (POSITIVE) Sodium 148 H 146 H (136-145) mmol/L Potassium 7.4 H* 7.8 H* (3.5-5.1) mmol/L Chloride 116 H 117 H (98-107) mmol/L Carbon Dioxide 23.9 19.3 L (21.0-32.0) mmol/L Anion Gap 15.5 17.5 BUN 88.0 H* 92.0 H* (7.0-18.0) mg/dL Creatinine 4.27 H 4.19 H (0.70-1.30) mg/dL Est GFR ( Amer) 16 L 17 L (>=60 mL/min/1.73m^2) Est GFR (Non-Af Amer) 13 L 14 L (>=60 mL/min/1.73m^2) BUN/Creatinine Ratio 20.6 22.0 Glucose 186 H 163 H (74-106) mg/dL Lactate 1.8 (0.4-2.0) mmol/L Calcium 8.4 L 8.3 L (8.5-10.1) mg/dL Total Bilirubin (0.2-1.0) mg/dL AST (15-37) U/L ALT (16-63) U/L Alkaline Phosphatase (46-116) U/L Troponin I High Sens (4.0-76.1) pg/mL NT-Pro-B Natriuret Pep (<=1800.0) pg/mL Total Protein (6.4-8.2) g/dL Albumin (3.4-5.0) g/dL Globulin g/dL Albumin/Globulin Ratio Urine Color (YELLOW) Urine Clarity (CLEAR) Urine pH (5.0-9.0) Ur Specific [place] (1.005-1.025) Urine Protein (NEG/TRACE) mg/dL Urine Glucose (UA) (NEGATIVE) mg/dL Urine Ketones (NEGATIVE) mg/dL Urine Occult Blood (NEGATIVE) Urine Nitrite (NEGATIVE) Urine Bilirubin (NEGATIVE) Urine Urobilinogen (0.2-1.0) EU/dL Ur Leukocyte Esterase (NEGATIVE) Urine RBC (0-2) #/HPF Urine WBC (NONE SEEN) #/HPF Ur Squamous Epith Cells (NONE/RARE) #/LPF Urine Crystals (None Seen) #/HPF Urine Bacteria (NONE SEEN) #/HPF Urine Casts (NONE SEEN) #/LPF Hyaline Casts Urine Mucus (NONE SEEN) Ur Culture Indicated? Influenza Type A Ag Negative Influenza Type B Ag Negative SARS-CoV-2 Ag (CV2AG) Negative (NEGATIVE) 04/28/24 Range/Units 05:30 WBC (4.0-11.0) 10^3/uL RBC (4.70-6.10) 10^6/uL Hgb (14.0-18.0) g/dL Hct (42.0-54.0) % MCV (80.0-94.0) fL MCH (25.9-34.0) pg MCHC (29.9-35.2) g/dL RDW (11.0-15.0) % Plt Count (150-450) 10^3/uL MPV (9.5-13.5) fL Neut % (Auto) (43.0-75.0) % Lymph % (Auto) (20.5-60.0) % [place] % (Auto) (1.7-12.0) % Eos % (Auto) (0.9-7.0) % Baso % (Auto) (0.2-2.0) % Neut # (Auto) (1.4-6.5) 10^3/uL Lymph # (Auto) (1.2-3.8) 10^3/uL [place] # (Auto) (0.3-0.8) 10^3/uL Eos # (Auto) (0.0-0.7) 10^3/uL Baso # (Auto) (0.0-0.1) 10^3/uL Abs Immat Gran (auto) (0.00-0.03) 10^3/uL Imm/Tot Granulo (auto) (0.0-0.5) % Puncture Site ABG pH (7.350-7.450) ABG pCO2 (35.0-45.0) mmHg ABG pO2 (80.0-100.0) mmHg ABG HCO3 (22.0-26.0) mmol/L ABG O2 Saturation % ABG Base Excess (-2.0-2.0) mmol/L Bobby Test (POSITIVE) Sodium 149 H (136-145) mmol/L Potassium 7.6 H* (3.5-5.1) mmol/L Chloride 117 H (98-107) mmol/L Carbon Dioxide 23.4 (21.0-32.0) mmol/L Anion Gap 16.2 BUN 90.0 H* (7.0-18.0) mg/dL Creatinine 4.25 H (0.70-1.30) mg/dL Est GFR ( Amer) 16 L (>=60 mL/min/1.73m^2) Est GFR (Non-Af Amer) 13 L (>=60 mL/min/1.73m^2) BUN/Creatinine Ratio 21.2 Glucose 186 H (74-106) mg/dL Lactate (0.4-2.0) mmol/L Calcium 8.3 L (8.5-10.1) mg/dL Total Bilirubin (0.2-1.0) mg/dL AST (15-37) U/L ALT (16-63) U/L Alkaline Phosphatase (46-116) U/L Troponin I High Sens (4.0-76.1) pg/mL NT-Pro-B Natriuret Pep (<=1800.0) pg/mL Total Protein (6.4-8.2) g/dL Albumin (3.4-5.0) g/dL Globulin g/dL Albumin/Globulin Ratio Urine Color (YELLOW) Urine Clarity (CLEAR) Urine pH (5.0-9.0) Ur Specific [place] (1.005-1.025) Urine Protein (NEG/TRACE) mg/dL Urine Glucose (UA) (NEGATIVE) mg/dL Urine Ketones (NEGATIVE) mg/dL Urine Occult Blood (NEGATIVE) Urine Nitrite (NEGATIVE) Urine Bilirubin (NEGATIVE) Urine Urobilinogen (0.2-1.0) EU/dL Ur Leukocyte Esterase (NEGATIVE) Urine RBC (0-2) #/HPF Urine WBC (NONE SEEN) #/HPF Ur Squamous Epith Cells (NONE/RARE) #/LPF Urine Crystals (None Seen) #/HPF Urine Bacteria (NONE SEEN) #/HPF Urine Casts (NONE SEEN) #/LPF Hyaline Casts Urine Mucus (NONE SEEN) Ur Culture Indicated? Influenza Type A Ag Influenza Type B Ag SARS-CoV-2 Ag (CV2AG) (NEGATIVE) ABG Data Interpretation: [place] [address] XRay Report Signed Patient: NAT MOORE MR#: [id number] : 1940 Acct:[id number] Age/Sex: 83 / M ADM Date: 04/27/24 Loc: ER Attending Dr: Ordering Physician: Jaqueline Dennis Date of Service: 04/27/24 Procedure(s): XR chest 1V Accession Number(s): [id number] cc: JASON CRUZ ; Jaqueline Dennis~ The [address] [id number] Patient Name: NAT MOORE MRN: [id number] date: 1940 Sex: M Assigned Patient Location: ED.MAIN Current Patient Location: ER Accession/Order Number: [id number] Exam Date: 04/27/2024 23:58 Report Date: 04/28/2024 00:51 At the request of: JAQUELINE DENNIS Procedure: XR chest 1V SINGLE VIEW CHEST: 04/27/2024 11:58 PM EST CLINICAL HISTORY:SOB/aspiration COMPARISONS: 02/01/2024 TECHNIQUE: Single frontal view of the chest, utilizing portable technique. Portable radiography should be considered a technically compromised study. Strongly consider dedicated PA and lateral chest radiographs, as clinically indicated. FINDINGS: LINES AND TUBES: Cardiac conduction device and pacemaker leads in good position. External cardiac monitoring leads. CARDIAC SILHOUETTE: Stable appearance of cardiac silhouette, upper limits normal. MEDIASTINAL AND HILAR CONTOUR: Within normal limits. PULMONARY PARENCHYMA AND PLEURA: Diminished lung volumes results in some crowding of lung markings and vessels. No consolidation, edema, effusion, or pneumothorax. OSSEOUS STRUCTURES:Nothing significant. OTHER COMMENTS:None. XR/XR chest 1V IMPRESSION: Diminished lung volumes limit assessment. Overall stable from prior without obvious acute process. This report was generated with voice recognition software. Effort has been made to ensure accuracy of this report, however, occasional wording errors may persist. Please contact our office with any question ECG Data Attestation: I personally reviewed and interpreted this ECG as follows: (Paced rhythm at 73 bpm, nonspecific ST changes) Critical Care Time Critical Care Time Critical Care Time: Yes Total Critical Care Time: 45 Attestation: Critical care time including initial assessment of a poorly responsive patient, resuscitation, ordering of labs, interpretation of labs, discussion of patient's labs and clinical condition with family, pressor support as well as empiric antibiotic coverage for treatment of aspiration pneumonia, consultation with hospitalist and admission totalling 45 minutes of critical care time of which I was dedicated soley to this patient and not spent treating other patients simult aneously Discharge Plan Discharge Chief Complaint: Altered Mental Status Clinical Impression: Altered mental status, Acute kidney failure, Hyperkalemia, Metabolic acidosis Patient Disposition: Admitted As Inpatient Time of Disposition Decision: 02:59 Condition: Critical
--- OUTSIDE RECORDS SUMMARY | 2024-04-27 23:56 | XMS_ITS | CCD ---
Author Organization [facility] Care Team Providers Care Head Charrer Name Role Phone JUAN PABLO ALANIZ Primary [...] Unavailable MAILE ., DR BECKETT Admitting Unavailable MALIE ., DR BECKETT Attending Unavailable CORBIN, DR [...] ART Referring Unavailable RENE ANTHONY Referring Unavailable MED[facility] Primary Care Unavailable LORIRONALDRI Referring Unavailable AHMED, [facility] Primary Care Unavailable JUAN DAVID LUI Attending Unavailable [facility] [place] Primary Care Unavailable Juan Pablo Alaniz MD Unavailable Juan Pablo Alaniz MD Primary Care Provider [phone] JUAN PABLO ALANIZ Attending Unavailable JUAN PABLO ALANIZ Attending Unavailable JUAN PABLO ALANIZ Attending Unavailable JUAN PABLO ALANIZ Attending Unavailable TOMMY GABRIEL Attending Unavailable DARCY SANDOVAL Attending Unavailable LORI, DARCY M Attending Unavailable LORI, DARCY M Attending Unavailable LORI, DARCY M Attending Unavailable LORI, DARCY M Attending Unavailable PERLA AGUILA Attending Unavailable Orzefausto, Marianela X Attending Unavailable CAIT DUNHAM Attending Unavailable Orzefausto Marianela X Attending Unavailable Orzefausto Marianela X Attending Unavailable Unavailable Primary Care Provider Unavailjose raul Deleon MD, [facility] Provider Allergies Allergy Classification Reported Allergen(s) Allergy Type Date of Onset Reaction(s) Facility (11 sources) Penicillin; Translations: [penicillin] Drug Allergy 2 [facility] (3 sources) Penicillins; Translations: [PENICILLINS] Drug allergy (disorder) [address] [facility] Repository (17 sources) Penicillin G Drug Allergy 3 Unknown [facility] Work Phone: (11 sources) Codeine Drug Allergy 4 [facility] (6 sources) Penicillins Propensity to adverse reactions to drug 4 [facility] Medications Current Medications Medication Drug Class(es) Dates [...] 03/13/2023 Active amLODIPine 5 mg oral tablet (13 sources) Dihydropyridine Calcium Channel Levi take 1 tablet by mouth once daily for hypertension amLODIPine (Norvasc) 5 MG tablet TAKE ONE TABLET BY MOUTH DAILY FOR HYPERTENSION Active take 1 tablet by mouth once lasha y amLODIPine (NORVASC) 10 MG tablet Take 1 tablet by mouth daily Active aspirin 81 mg delayed release oral tablet (13 sources) Platelet Aggregation Inhibitor, Nonsteroidal Anti-inflammatory Drug take 1 tablet by mouth once daily aspirin 81 MG EC tablet Take 1 tablet by mouth Daily Active atorvastatin 40 mg oral tablet (13 sources) HMG-CoA Reductase Inhibitor take 1 capsule by mouth at bedtime for hyperlipidemia atorvastatin (Lipitor) 40 MG tablet TAKE ONE CAPSULE BY MOUTH AT BEDTIME FOR CHOLESTEROL CONTROL Active candesartan cilexetil 32 mg oral tablet (19 sources) Angiotensin 2 Receptor Levi Start: 2023 [...] Start: 01-16-2023 take 1 capsule by mo ut once daily as needed docusate sodium (Colace) 100 MG capsule Indications: Constipation, unspecified constipation type TAKE ONE CAPSULE BY MOUTH DAILY NEEDED 28 capsule 11 01/16/2023 Active Start: 01-17-2021 docusate sodiu m Refills(s) 0 Start Date: 01/17/21 Status: Ordered take 1 capsule by mo [facility] twice daily docusate sodium (COLACE) 100 MG capsule Take 1 capsule by mouth 2 times daily Active donepezil hydrochloride 10 mg oral tablet (20 [...] Start: 11-28-2022 take 1 capsule by mo [facility] once daily FLUoxetine (PROzac) 20 MG [...] 30 tablet 11 11/13/2023 11/13/2023 Discontinued (Ineffective) take 2 tablets by mo uth once daily furosemide (LASIX) 20 MG tablet Take 2 tablets by mouth daily Active gabapentin 100 mg oral capsule (20 [...] Start: 03-13-2023 take 1 tablet by shannon th twice daily glipiZIDE (Glucotrol) 10 MG tablet [...] day Active meloxicam 15 mg oral tablet (19 sources) Nonsteroidal Anti-inflammatory Drug Start: take 1 tablet by mouth at bedtime meloxicam (Mobic) 15 MG tablet Indications: Spinal stenosis of lumbar region, unspecified whether neurogenic claudication present TAKE ONE TABLET BY MOUTH AT BEDTIME 28 tablet 11 10/23/2023 Active take 2 tablets by mouth once deepika ly meloxicam (MOBIC) 7.5 MG tablet Take 2 tablets by mouth nightly Active methocarbamol 500 mg oral tablet (19 sources) Muscle Relaxant Start: 12-30-2023 take 1 [...] omeprazole 40 mg delayed release oral capsule (19 sources) Proton Pump Inhibitor Start: 12-30-2023 take [...] MEAL 90 28 capsule 11 01/16/2023 Active take 1 capsule by mo uth once daily omeprazole (PRILOSEC) 20 MG delayed release capsule Take 1 capsule by mouth daily Active 24 hr oxybutynin chloride 5 mg extended release oral tablet (13 sources) Cholinergic Muscarinic Antagonist take 1 tablet by mouth once daily oxybutynin XL (Ditropan-XL) 5 MG 24 hr tablet Take 10 mg by mouth Daily Active take 1 tablet by shannon th every twenty-four hours at bedtime oxybutynin XL (Ditropan-XL) 5 MG 24 hr tablet TAKE ONE TABLET BY MOUTH AT BEDTIME FOR OVERACTIVE BLADDER Active take 1 tablet by mouth once lasha y oxyBUTYnin (DITROPAN-XL) 5 MG extended release tablet Take 1 tablet by mouth nightly Active microencapsulated potassium chloride 20 meq extended release oral tablet (18 sources) Start: 11-13-2023 End: 11-12-2024 take 1 tablet by mouth once daily potassium chloride CR (Klor-Con M20) 20 MEQ ER tablet Indications: Hypokalemia Take 1 tablet (20 mEq) by mouth Daily Do not crush or chew. 30 tablet 11 11/13/2023 11/12/2024 Active take 20 mEq by mouth once daily potassium chloride (KLOR-CON) 20 MEQ packet Take 20 mEq by mouth daily Active QUEtiapine 25 mg oral tablet (13 sources) Atypical Antipsychotic take 1 tablet by mouth twice daily QUEtiapine (SEROquel) 25 MG tablet TAKE ONE TABLET BY MOUTH TWICE A DAY FOR DELUSIONS Active solifenacin succinate 10 mg oral tablet (20 sources) Cholinergic Muscarinic Antagonist Start: take 1 tablet by mouth once daily solifenacin 10 mg Tab 10 mg = 1 tab(s), Oral, Daily, # 30 tab(s), Refills(s) 11, Pharmacy: [facility], 167, cm, 09/16/22 15:10:00 EDT, Height/Length Dosing, 120, kg, 09/16/22 15:10:00 EDT, Weight Dosing Start Date: 10/01/23 Status: Ordered Start: 09-16-2022 End: 09-11-2023 take 1 tablet by mouth once daily Vesicare 10 mg Tab 10 mg = 1 tab(s), Oral, Daily, X 30 day(s), # 30 tab(s), Refills(s) 11, Pharmacy: [facility], 167, cm, 09/16/22 15:10:00 EDT, Height/Length Dosing, 120, kg, 09/16/22 15:10:00 EDT, Weight Dosing Start Date: 09/16/22 Stop Date: 09/11/23 Status: Ordered Start: 04-26-2022 take 1 tablet by shannon th once daily Vesicare 5 mg Tab 5 mg = 1 tab(s), Oral, Daily, # 30 tab(s), Refills(s) 11, Pharmacy: [facility], 174, cm, 12/03/21 13:40:00 EDT, Height/Length Dosing, 112, kg, 12/03/21 13:40:00 EDT, Weight Dosing Start Date: 04/26/22 Status: Ordered tamsulosin hydrochloride 0.4 mg oral capsule (20 sources) alpha-Adrenergic Levi Start: 10-01-2023 take 1 capsule by mouth once daily Flomax 0.4 mg Cap 0.4 mg = 1 cap(s), Oral, Daily, # 30 cap(s), Refills(s) 11, Pharmacy: [facility], 167, cm, 09/16/22 15:10:00 EDT, Height/Length Dosing, 120, kg, 09/16/22 15:10:00 EDT, Weight Dosing Start Date: 10/01/23 Status: Ordered Start: 10-31-2022 take 1 capsule by [facility] every twenty-four hours in the morning tamsulosin (Flomax) 0.4 MG 24 hr capsule Take 0.4 mg by mouth in the morning. 10/31/2022 Active Start: 10-09-2022 take 1 capsule by mouth once d aily Flomax 0.4 mg Cap 0.4 mg = 1 cap(s), Oral, Daily, # 30 cap(s), Refills(s) 11, called to pharmacy (Rx) Start Date: 10/09/22 Status: Ordered Start: 07-03-2021 take 1 capsule by mouth once d aily Flomax 0.4 mg Cap 0.4 mg = 1 cap(s), Oral, Daily, # 90 cap(s), Refills(s) 3, Pharmacy: [facility], 174, cm, 09/03/21 13:40:00 EDT, Height/Length Dosing, 112.5, kg, 09/03/21 13:40:00 EDT, Weight Dosing Start Date: 10/25/21 Status: Ordered 24 hr tolterodine tartrate 4 mg extended release oral capsule (4 sources) Cholinergic Muscarinic Antagonist Start: 01-17-2021 take 1 capsule by mouth once daily tolterodine 4 mg Cap-ER 4 mg = 1 cap(s), Oral, Daily, # 30 cap(s), Refills(s) 11, Pharmacy: [facility], 174, cm, 09/03/21 13:40:00 EDT, Height/Length Dosing, 112.5, kg, 09/03/21 13:40:00 EDT, Weight Dosing Start Date: 09/03/21 Status: Ordered traZODone hydrochloride 100 mg oral tablet (13 sources) Serotonin Reuptake Inhibitor take 1 capsule by mouth at bedtime for depression traZODone (Desyrel) 100 MG tablet TAKE ONE CAPSULE BY MOUTH AT BEDTIME FOR DEPRESSION Active 24 hr trospium chloride 60 mg extended release oral capsule (13 sources) Cholinergic Muscarinic Antagonist Start: 11-13-2023 trospium (Sanctura XR) 60 MG 24 hour capsule Take by mouth Daily 12/08/2023 Active take 3 tablets by mouth once deepika ly trospium (SANCTURA) 20 MG tablet Take 3 tablets by mouth daily Active vibegron 75 MG Oral Tablet [Gemtesa] (1 source) Start: 11-11-2023 take 1 tablet by mouth once daily Gemtesa 75 mg oral tablet 75 mg = 1 tab(s), Oral, Daily, # 30 tab(s), Refills(s) 3, Pharmacy: [facility], 167, cm, 11/11/23 13:29:00 EDT, [...] Discontinued doxycycline hyclate 100 mg oral tablet (11 sources) Tetracycline-class Drug End: 01-29-2024 take 1 [...] disease (15 sources) Atherosclerotic heart disease of [place] coronary artery with unspecified angina pectoris; Translations: [...] 10-07-2022 Chronic Other aftercare (1 source) Other fci (current) drug therapy; Translations: [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 [facility] LEFT AC [facility] BLOOD CULTURE 2on 02-06-2024 BLOOD CULTURE 2 Blood Culture 2 NG5D NO GROWTH AT 5 DAYS.^NO GROWTH AT 5 DAYS. [facility] 1002 [facility] No Panel Informationon 02-05 [facility] ALL BASIC METABOLIC PANELon 12-05-2023 Anion gap [Moles/Vol] 9 mmol/L 9 - 16 mmol/L [facility] Calcium [Mass/Vol] 8.5 mg/dL Low 8.6 - 10. 4 mg/dL [facility] Chloride [Moles/Vol] 108 mmol/L High 98 - 107 mmol/L [facility] CO2 [Moles/Vol] 26 mmol/L 20 - 31 mmol/L [facility] Creatinine [Mass/Vol] 1.6 mg/dL High 0.70 - 1.20 mg/dL [facility] Glucose [Mass/Vol] 66 mg/dL Low 74 - 99 mg/dL [facility] Interpretation and review of laboratory results [facility] 9 - 20 [facility] EGFR 41 Low - PINF [facility] Comment on above: These results are not [...] [Moles/Vol] 4.3 mmol/L 3.7 - 5.3 mmol/L [facility] Sodium [Moles/Vol] 143 mmol/L 136 - 145 mmol/L [facility] Urea nitrogen [Mass/Vol] 32 mg/dL High 8 - 23 mg/dL [facility] Original Ordering Provider: DARYC SANDOVAL [facility] Basic Metabolic Panelon - Anion gap [Moles/Vol] 9 mmol/L 9 - 16 mmol/L [facility] Calcium [Mass/Vol] 8.5 mg/dL Low 8.6 - 10. 4 mg/dL [facility] Chloride [Moles/Vol] 108 mmol/L High 98 - 107 mmol/L [facility] CO2 [Moles/Vol] 26 mmol/L 20 - 31 mmol/L [facility] Creatinine [Mass/Vol] 1.6 mg/dL High 0.70 - 1.20 mg/dL [facility] Est, Glom Filt Rate 41 Low - PINF [facility] Comment on above: These results are not [...] following therapy that affects renal tubular secretion. Glucose [Mass/Vol] 66 mg/dL Low 74 - 99 mg/dL [facility] Interpretation and review of laboratory results Abnormal [facility] Potassium [Moles/Vol] 4.3 mmol/L 3.7 - 5.3 mmol/L [facility] Sodium [Moles/Vol] 143 mmol/L 136 - 145 mmol/L [facility] Urea nitrogen [Mass/Vol] 32 mg/dL High 8 - 23 mg/dL [facility] Urea nitrogen/Creatinin e [Mass ratio] 20 mg/mg 9 - 20 [facility] Basic Metabolic Profon 12-04 Anion gap [Moles/Vol] 9 mmol/L Normal -16 [facility] Comment on above: Performed By: #### B MP #### [facility] [address] [address] Leaflet Or Newspaper Deliverer: Eliud Leonard MD BUN/CRE Ratio 20 Normal - [facility] Comment on above: Performed By: #### B MP #### [facility] [address] [place] [address] Leaflet Or Newspaper Deliverer: Eliud Leonard MD Calcium [Mass/Vol] 8.5 mg/dL Low 8.6-10.4 [facility] Comment on above: Performed By: #### B MP #### [facility] [address] [place] [address] Leaflet Or Newspaper Deliverer: Eliud Leonard MD Chloride [Moles/Vol] 108 mmol/L High 98-107 [facility] Comment on above: Performed By: #### B MP #### [facility] [address] [place] [address] Leaflet Or Newspaper Deliverer: Eliud Leonard MD CO2 [Moles/Vol] 26 mmol/L Normal 20-31 [facility] Comment on above: Performed By: #### B MP #### [facility] [address] [place] [address] Leaflet Or Newspaper Deliverer: Eliud Leonard MD Creatinine [Mass/Vol] 1.6 mg/dL High 0.70-1.20 [facility] Comment on above: Performed By: #### B MP #### [facility] [address] [place] [address] Leaflet Or Newspaper Deliverer: Eliud Leonard MD GFR/1.73 sq M.predicted among non-blacks MDRD (S/P/Bld) [Vol rate/Area] 41 mL/min/{1.73_m2} Low >60 [facility] Comment on above: Result Comment: These [...] secretion. Performed By: #### B MP #### [facility] [address] [place] [address] Leaflet Or Newspaper Deliverer: Eliud Leonard MD Glucose [Mass/Vol] 66 mg/dL Low 74-99 [facility] Comment on above: Performed By: #### B MP #### [facility] [address] [place] [address] Leaf[employer] Newsp[employer] Deliverer: Eliud Leonard MD Potassium [Moles/Vol] 4.3 mmol/L Normal 3.7-5.3 [facility] Comment on above: Performed By: #### B MP #### [facility] [address] [place] [address] Leaflet Or Newspaper Deliverer: Eliud Leonard MD Sodium [Moles/Vol] 143 mmol/L Normal 136-145 [facility] Comment on above: Performed By: #### B MP #### [facility] [address] [place] [address] Leaflet Or Newspaper Deliverer: Eliud Leonard MD Urea nitrogen [Mass/Vol] 32 mg/dL High 8-23 [facility] Comment on above: Performed By: #### B MP #### [facility] [address] [place] [address] Leaflet Or Newspaper Deliverer: Eliud Leonard MD Cult,Urineon 12-01-2023 Cult,Urine Specimen Description .CLEAN CATCH URINE Culture NO SIGNIFICANT GROWTH Report Status FINAL 12/01/2023 Normal [facility] Comment on above: Performed By: #### U #### [facility] [address] [place], [place] [id number] Leaflet Or Newspaper Deliverer: D[place] MD [facility] [address] [place] [address] [place] [address] Leaflet Or Newspaper Deliverer: Eliud Leonard MD ALL URINALYSISon 11-30-2023 PT BILIRUBIN, SEMIQT,UR Negative NEG [facility] BLOOD, URINE Negative NEG [facility] CLARITY, URINE Clear CLEAR [facility] COLOR Yellow YEL [facility] GLUCOSE,SEMI-QNT,U R Negative NEG mg/dL [facility] KETONES, URINE Negative NEG mg/dL [facility] LEUKOCYTE ESTERASE Negative NEG [facility] NITRITE,UR Negative NEG [facility] PH,UR 6.0 5.0 - 9.0 [facility] PROTEIN, SEMI-QNT,UR Negative NEG mg/dL [facility] SPEC. GRAVITY,UR 1.020 1.010 - 1.020 [facility] UROBILINOGEN,UR Normal 0.0 - 1.0 EU/dL [facility] Original Ordering Provider: RENE Burr MD [facility] Urinalysison 11-30-2023 Bilirubin Ql (U) Negative NEGATIVE [facility] Clarity (U) Clear Clear [facility] Color (U) Yellow Yellow [facility] Glucose Test strip (U) [Mass/Vol] Negative NEGATIVE mg/dL [facility] Hemoglobin Auto test strip Ql (U) Negative NEGATIVE [facility] Ketones (U) [Mass/Vol] Negative NEGATIVE mg/dL [facility] Leukocyte esterase Test strip Ql (U) Negative NEGATIVE [facility] Nitrite Ql (U) Negative NEGATIVE [facility] pH (U) 6.0 [pH] 5.0 - 9.0 [facility] Protein (U) [Mass/Vol] Negative NEGATIVE mg/dL [facility] Specific gravity (U) [Rel density] 1.020 1.010 - 1.020 [facility] Urobilinogen Qn (U) Normal 0.0 - 1.0 EU/dL [facility] Urinalysis, Routineon 2023 Bilirubin, SemiQt,Ur Negative Normal NEG [facility] Comment on above: Performed By: #### U A #### [facility] [address] [place] [address] Leaflet Or Newspaper Deliverer: Eliud Leonard MD Blood, Urine Negative Normal NEG [facility] Comment on above: Performed By: #### U A #### [facility] [address] [place] [address] [place] [address] Leaflet Or Newspaper Deliverer: Eliud Leonard MD Clarity (U) Clear Normal CLEAR [facility] Comment on above: Performed By: #### U A #### [facility] [address] [place] [address] Leaflet Or Newspaper Deliverer: Eliud Leonard MD Color (U) Yellow Normal YEL [facility] Comment on above: Performed By: #### U A #### [facility] [address] [place] [address] [place] [address] Leaflet Or Newspaper Deliverer: Eliud Leonard MD Glucose Ql (U) Negative Normal NEG [facility] Comment on above: Performed By: #### U A #### [facility] [address] [place] [address] [place], [place] [id number] Leaflet Or Newspaper Deliverer: Eliud Leonard MD Ketones Ql (U) Negative Normal NEG [facility] Comment on above: Performed By: #### U A #### [facility] [address] [place] [address] Dr. [place], [facility] Leaflet Or Newspaper Deliverer: Eliud Leonard MD Leukocyte esterase Test strip Ql (U) Negative Normal NEG [facility] Comment on above: Performed By: #### U A #### [address] [place], [facility] Leaflet Or Newspaper Deliverer: Eliud Leonard MD Nitrite,Ur Negative Normal NEG [facility] Comment on above: Performed By: #### U A #### [facility] [address] [place] [address] Dr. [place], [facility] Leaflet Or Newspaper Deliverer: Eliud Leonard MD PH,Ur 6.0 Normal 5.0-9.0 [facility] Comment on above: Performed By: #### U A #### [address] [place], [facility] Leaflet Or Newspaper Deliverer: Eliud Leonard MD Protein Ql (U) Negative Normal NEG [facility] Comment on above: Performed By: #### U A #### [facility] [address] [place] [address] Dr. [place], [facility] Leaflet Or Newspaper Deliverer: Eliud Leonard MD Spec. [place],Ur 1.020 Normal 1.010-1.020 [facility] Comment on above: Performed By: #### U A #### [address] [place] [address] Leaflet Or Newspaper Deliverer: Eliud Leonard MD Urobilinogen,Ur Normal Normal 0.0-1.0 [facility] Comment on above: Performed By: #### U A #### [facility] [address] [place] [address] [place] [address] Leaflet Or Newspaper Deliverer: Eliud Leonard MD CT CERVICAL SPINE WO [...] midline. The ventricles and peripheral sulci are [id number] dilated. There is decreased attenuation in the [...] Deacon Justice MD 11/28/23 Final result Normal [facility] CT HEAD WO CONTRASTon 2023 CT [...] midline. The ventricles and peripheral sulci are [id number] dilated. There is decreased attenuation in the [...] Deacon Justice MD 11/28/23 Final result Normal [facility] 30on 11-22-2023 30 The patient is [...] and maintained or improved Outcome: Progressing Normal [facility] BASIC METABOLIC PANELon 08- Anion gap [Moles/Vol] 10 mmol/L Normal 7-20 [facility] Comment on above: Performed By: #### L [id number] ####[facility] ([facility]ER)[address] [place] [address] Calcium [Mass/Vol] 8.0 mg/dL Low 8.6-10.3 [facility] Comment on above: Performed By: #### L [id number] ####[facility] ([facility])[address] [place] [address] Chloride [Moles/Vol] 111 mmol/L High 98-107 [facility] Comment on above: Performed By: #### L [id number] ####[facility] ([facility])[address] [place] [address] CO2 [Moles/Vol] 29 mmol/L Normal 21-31 [facility] Comment on above: Performed By: #### L [id number] ####[facility] ([facility])[address] [place] [address] Creatinine [Mass/Vol] 1.36 mg/dL High 0.70-1.30 [facility] Comment on above: Performed By: #### L [id number] ####[facility] ([facility])[address] [place] [address] GLOMERULAR FILTRATION RATE ML/MIN/1.73 SQ M.PREDICTED 51.0 mL/min/1.73m*2 Low >60.0 [facility] Comment on above: Result Comment: The [facility]???s estimated glomerular filtration rate (eGFR) will no [...] #### L AB15 ####[facility] ([facility])[address] [place] [address] Glucose [Mass/Vol] 150 mg/dL High 70-100 [facility] Comment on above: Performed By: #### L [id number] ####[facility] ([facility])[address] [place] [address] Potassium [Moles/Vol] 3.3 mmol/L Low 3.5-5.1 [facility] Comment on above: Performed By: #### L [id number] ####[facility] ([facility])[address] [place] [address] Sodium [Moles/Vol] 147 mmol/L High 136-145 [facility] Comment on above: Performed By: #### L [id number] ####[facility] ([facility])[address] [place] [address] Urea nitrogen [Mass/Vol] 25 mg/dL Normal 7-25 [facility] Comment on above: Performed By: #### L [id number] ####[facility] ([facility])[address] [place] [address] UREA NITROGEN/CREATININ E (MASS RATIO) IN SER/PLAS 18.4 Normal [facility] Comment on above: Performed By: #### L [id number] ####[facility] ([facility])[address] [place] [address] CBC WITH AUTO DIFFERENTIALon 11-22-2023 Basophils (Bld) [#/Vol] 0.06 10*3/uL Normal 0.00-0.20 [facility] Comment on above: Performed By: #### L [id number] ####[facility] ([facility])[address] [place] [address] Basophils/100 WBC (Bld) 0.7 % Normal 0.0-1.0 [facility] Comment on above: Performed By: #### L [id number] ####[facility] ([facility])[address] [place] [address] Eosinophils (Bld) [#/Vol] 0.37 10*3/uL Normal 0.00-0.50 [facility] Comment on above: Performed By: #### L [id number] ####[facility] ([facility])[address] [place] [address] Eosinophils/100 WBC (Bld) 4.2 % Normal 0.0-6.0 [facility] Comment on above: Performed By: #### L [id number] ####[facility] ([facility])[address] [place] [address] Erythrocyte distribution width (RBC) [Ratio] 15.2 % High 11.5-15.0 [facility] Comment on above: Performed By: #### L [id number] ####[facility] ([facility])[address] [place] [address] ERYTHROCYTE MEAN CORPUSCULAR HEMOGLOBIN CONCENTRATION (G/DL) BY AUTOMATED 32.6 g/dL Normal 32.0-35.0 [facility] Comment on above: Performed By: #### L [id number] ####[facility] ([facility])[address] [place] [address] Hematocrit (Bld) [Volume fraction] 38.3 % Low 39.0-55.0 [facility] Comment on above: Performed By: #### L [id number] ####[facility] ([facility])[address] [place] [address] Hemoglobin (Bld) [Mass/Vol] 12.5 g/dL Low 13.0-17.0 [facility] Comment on above: Performed By: #### L [id number] ####[facility] ([facility])[address] [place] [address] Immature granulocytes (Bld) [#/Vol] 0.15 10*3/uL Normal 0.00-0.20 [facility] Comment on above: Performed By: #### L [id number] ####[facility] ([facility])[address] [place] [address] Immature granulocytes/100 WBC (Bld) 1.7 % High 0.0-1.0 [facility] Comment on above: Performed By: #### L [id number] ####[facility] ([facility])[address] [place] [address] Lymphocytes (Bld) [#/Vol] 1.19 10*3/uL Low 1.20-4.00 [facility] Comment on above: Performed By: #### L [id number] ####[facility] ([facility])[address] [place] [address] Lymphocytes/100 WBC (Bld) 13.6 % Low 20.0-45.0 [facility] Comment on above: Performed By: #### L [id number] ####[facility] ([facility])[address] [place] [address] MCH (RBC) [Entitic mass] 32.4 pg Normal 27.0-33.0 [facility] Comment on above: Performed By: #### L [id number] ####[facility] ([facility])[address] [place] [address] MCV (RBC) [Entitic vol] 99.2 fL High 82.0-98.0 [facility] Comment on above: Performed By: #### L [id number] ####[facility] ([facility])[address] [place] [address] Monocytes (Bld) [#/Vol] 0.93 10*3/uL Normal 0.10-1.00 [facility] Comment on above: Performed By: #### L [id number] ####[facility] ([facility])[address] [place] [address] Monocytes/100 WBC (Bld) 10.6 % Normal 5.0-12.0 [facility] Comment on above: Performed By: #### L [id number] ####[facility] ([facility])[address] [place] [address] Neutrophils (Bld) [#/Vol] 6.06 10*3/uL Normal 1.60-7.60 [facility] Comment on above: Performed By: #### L [id number] ####[facility] ([facility])[address] [place] [address] Neutrophils/100 WBC (Bld) 69.2 % Normal 40.0-72.0 [facility] Comment on above: Performed By: #### L [id number] ####[facility] ([facility])[address] [place] [address] NRBC (PER 100 WBCS) BY AUTOMATED COUNT 0.0 % Normal 0 [facility] Comment on above: Performed By: #### L [id number] ####[facility] ([facility])[address] [place] [address] PLATELETS (10*3/UL) IN BLOOD AUTOMATED COUNT 167 10*3/uL Normal 150-400 [facility] Comment on above: Performed By: #### L [id number] ####[facility] ([facility])[address] [place] [address] RBC (Bld) [#/Vol] 3.86 10*6/uL Low 4.20-5.70 [facility] Comment on above: Performed By: #### L [id number] ####[facility] ([facility])[address] [place] [address] WBC (Bld) [#/Vol] 8.76 10*3/uL Normal 4.00-10.60 [facility] Comment on above: Performed By: #### L [id number] ####[facility] ([facility])[address] [place] [address] 30on 11-21-2023 30 The patient is Moderately Stable - Low risk of patient condition declining or worsening The patient's goals for the shift include rest/comfort The clinical goals for the shift include VSS Problem: Pain - Adult Goal: Verbalizes/displays adequate comfort level or baseline comfort level Outcome: Progressing Problem: Safety - Adult Goal: Free from fall injury Outcome: Progressing Normal [facility] 30 The patient is Moderately Stable - [...] and maintained or improved Outcome: Progressing Normal [facility] BASIC METABOLIC PANELon 08-3 -2023 Anion gap [Moles/Vol] 9 mmol/L Normal 7-20 [facility] Comment on above: Performed By: #### L [id number] ####[facility] ([facility])[address] [facility] [address] Calcium [Mass/Vol] 8.0 mg/dL Low 8.6-10.3 [facility] Comment on above: Performed By: #### L [id number] ####[facility] ([facility])[address] [facility] [address] Chloride [Moles/Vol] 113 mmol/L High 98-107 [facility] Comment on above: Performed By: #### L [id number] ####[facility] ([facility])[address] [facility] [address] CO2 [Moles/Vol] 27 mmol/L Normal 21-31 [facility] Comment on above: Performed By: #### L [id number] ####[facility] ([facility])[address] [facility] [address] Creatinine [Mass/Vol] 1.47 mg/dL High 0.70-1.30 [facility] Comment on above: Performed By: #### L [id number] ####[facility] ([facility])[address] [facility] [address] GLOMERULAR FILTRATION RATE ML/MIN/1.73 SQ M.PREDICTED 46.5 mL/min/1.73m*2 Low >60.0 [facility] Comment on above: Result Comment: The [facility]???s estimated glomerular filtration rate (eGFR) will no [...] #### L [id number] ####[facility] ([facility])[address] [place] [address] Glucose [Mass/Vol] 135 mg/dL High 70-100 [facility] Comment on above: Performed By: #### L [id number] ####[facility] ([facility])[address] [place] [address] Potassium [Moles/Vol] 3.3 mmol/L Low 3.5-5.1 [facility] Comment on above: Performed By: #### L [id number] ####[facility] ([facility])[address] [place] [address] Sodium [Moles/Vol] 146 mmol/L High 136-145 [facility] Comment on above: Performed By: #### L [id number] ####[facility] ([facility])[address] [place] [address] Urea nitrogen [Mass/Vol] 35 mg/dL High 7-25 [facility] Comment on above: Performed By: #### L [id number] ####[facility] ([facility])[address] [place] [address] UREA NITROGEN/CREATININ E (MASS RATIO) IN SER/PLAS 23.8 Normal [facility] Comment on above: Performed By: #### L [id number] ####[facility] ([facility])[address] [place] [address] CBCon 11-21-2023 Erythrocyte distribution width (RBC) [Ratio] 15.3 % High 11.5-15.0 [facility] Comment on above: Performed By: #### L [id number] ####[facility] ([facility])[address] [place] [address] ERYTHROCYTE MEAN CORPUSCULAR HEMOGLOBIN CONCENTRATION (G/DL) BY AUTOMATED 32.7 g/dL Normal 32.0-35.0 [facility] Comment on above: Performed By: #### L [id number] ####[facility] ([facility])[address] [place] [address] Hematocrit (Bld) [Volume fraction] 38.5 % Low 39.0-55.0 [facility] Comment on above: Performed By: #### L [id number] ####[facility] ([facility])[address] [place] [address] Hemoglobin (Bld) [Mass/Vol] 12.6 g/dL Low 13.0-17.0 [facility] Comment on above: Performed By: #### L [id number] ####[facility] ([facility])[address] [place], [place] [address] MCH (RBC) [Entitic mass] 32.1 pg Normal 27.0-33.0 [facility] Comment on above: Performed By: #### L [id number] ####[facility] ([facility])[address] [place] [address] MCV (RBC) [Entitic vol] 98.2 fL High 82.0-98.0 [facility] Comment on above: Performed By: #### L [id number] ####[facility] ([facility])[address] [place] [address] PLATELETS (10*3/UL) IN BLOOD AUTOMATED COUNT 172 10*3/uL Normal 150-400 [facility] Comment on above: Performed By: #### L [id number] ####[facility] ([facility])[address] [place] [address] RBC (Bld) [#/Vol] 3.92 10*6/uL Low 4.20-5.70 [facility] Comment on above: Performed By: #### L [id number] ####[facility] ([facility])[address] [place] [address] WBC (Bld) [#/Vol] 9.67 10*3/uL Normal 4.00-10.60 [facility] Comment on above: Performed By: #### L [id number] ####[facility] ([facility])[address] [place] [address] 30on 11-20-2023 30 The patient is Moderately Stable - Low risk of patient condition declining or worsening The patient's goals for the shift include restraints off The clinical goals for the shift include stable hemodynamics Over the shift, the patient did not make progress toward the following goals. [facility] 30 Daily Case Managemen t [...] OT Six Click Score: 8 PT Recommendations: correction facility placement OT Recommendations: correction facility placement New Consults: Ancillary Consults (From admission, onward) Start Ordered 11/19/23 0924 Inpatient consult to Social Work Once Provider: (Not yet assigned) Question Answer Comment Select all services needed for the patient Shelter Facility (30 day convalescent stay) Please indicate [...] OT? Answer: eval and treat 11/19/23 0756 [facility] CONSULTon 11-20-2023 CONSULT -- Attestation signed by Juan Pablo Liz MD at 11/21/2023 12:08 PM As noted. Patient to be staffed in person on 11/20 Psychiatry Consultation Service - New Assessment Patient Name: Nat Moore MRN / CSN: [id number] Date of / Age: 2 1940 / [...] mild cognitive impairment originally presenting to the [facility] Emergency Room on 11/15/2023 for evaluation of recurrent episodes of syncope secondary to spontaneous prolonged sinus pause. The patient was transferred via air ambulance from the [facility]. Psychiatry was consulted for management of agitation secondary to dementia . Emergency Room Course: Imaging/Workup: On arrival to [facility] the patient's blood pressure was 158/72 mmHg, pulse rate 78 bpm, regular, SpO2 100% on room air, respiratory rate 20/min, temperature 97.2. 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 CT of the abdomen with contrast done at [place] [facility] showed nonobstructive bowel gas pattern with [...] would con (more content not included)... Normal [facility] NURSNOTEon 11-20-2023 NURSNOTE Patient Name: Nat Moore [...] voiced no concerns at this time. The bid writer urged the primary RN to call the rapid team if any concerns arise overnight. Chevy Hines RN Rapid Response Team Nurse [phone] 11/20/2023 11:34 PM Normal [facility] 30on 11-19-2023 30 Daily Case Managemen t Update Multidisciplinary rounds have been completed. Barriers to Discharge: 11/18- patient here from OSH for recurrent episodes of syncope secondary to spontaneous prolonged sinus pauses. During his stay in [place] ED he suddenly developed bradycardia prolonged sinus [...] Select all services needed for the patient Shelter Facility (30 day convalescent stay) Please indicate your approval for this care by adding your name here: NUSRATMILTONGURDEEP [place] 11/19/23 0924 Therapy Orders (From admission, onward) Start Ordered 11/19/23 0757 PT eval and treat Until therapy completed Question: Reason for PT? Answer: eval and treat 11/19/23 0756 11/19/23 0757 OT eval and treat Until therapy completed Question: Reason for OT? Answer: eval and treat 11/19/23 0756 Normal [facility] BASIC METABOLIC PANELon 08 Anion gap [Moles/Vol] 11 mmol/L Normal 7-20 [facility] Comment on above: Performed By: #### L [id number] ####[facility] ([facility])[address] [place] [address] Calcium [Mass/Vol] 8.0 mg/dL Low 8.6-10.3 [facility] Comment on above: Performed By: #### L [id number] ####[facility] ([facility])[address] [place] [address] Chloride [Moles/Vol] 112 mmol/L High 98-107 [facility] Comment on above: Performed By: #### L [id number] ####[facility] ([facility])[address] [place] [address] CO2 [Moles/Vol] 26 mmol/L Normal 21-31 [facility] Comment on above: Performed By: #### L [id number] ####[facility] ([facility])[address] [place] [address] Creatinine [Mass/Vol] 1.69 mg/dL High 0.70-1.30 [facility] Comment on above: Performed By: #### L [id number] ####[facility] ([facility])[address] [place] [address] GLOMERULAR FILTRATION RATE ML/MIN/1.73 SQ M.PREDICTED 39.3 mL/min/1.73m*2 Low >60.0 [facility] Comment on above: Result Comment: The [facility]???s estimated glomerular filtration rate (eGFR) will no [...] #### L [id number] ####[facility] ([facility])[address] [place] [address] Glucose [Mass/Vol] 122 mg/dL High 70-100 [facility] Comment on above: Performed By: #### L [id number] ####[facility] ([facility])[address] [place] [address] Potassium [Moles/Vol] 3.5 mmol/L Normal 3.5-5.1 [facility] Comment on above: Performed By: #### L [id number] ####[facility] ([facility])[address] [place] [address] Sodium [Moles/Vol] 145 mmol/L Normal 136-145 [facility] Comment on above: Performed By: #### L [id number] ####[facility] ([facility])[address] [place] [address] Urea nitrogen [Mass/Vol] 49 mg/dL High 7-25 [facility] Comment on above: Performed By: #### L [id number] ####[facility] ([facility])[address] [place] [address] UREA NITROGEN/CREATININ E (MASS RATIO) IN SER/PLAS 29.0 Normal [facility] Comment on above: Performed By: #### L [id number] ####[facility] ([facility])[address] [place] [address] CBCon 11-19-2023 Erythrocyte distribution width (RBC) [Ratio] 15.0 % Normal 11.5-15.0 [facility] Comment on above: Performed By: #### L [id number] #### [facility] ([facility]) [address] [place] [address] ERYTHROCYTE MEAN CORPUSCULAR HEMOGLOBIN CONCENTRATION (G/DL) BY AUTOMATED 32.8 g/dL Normal 32.0-35.0 [facility] Comment on above: Performed By: #### L [id number] #### [facility] ([facility]) [address] [place] [address] Hematocrit (Bld) [Volume fraction] 38.7 % Low 39.0-55.0 [facility] Comment on above: Performed By: #### L [id number] #### [facility] ([facility]) [address] [place] [address] Hemoglobin (Bld) [Mass/Vol] 12.7 g/dL Low 13.0-17.0 [facility] Comment on above: Performed By: #### L [id number] #### [facility] ([facility]) [address] [place] [address] MCH (RBC) [Entitic mass] 31.8 pg Normal 27.0-33.0 [facility] Comment on above: Performed By: #### L [id number] #### [facility] ([facility]) [address] [place] [address] MCV (RBC) [Entitic vol] 97.0 fL Normal 82.0-98.0 [facility] Comment on above: Performed By: #### L [id number] #### [facility] ([facility]) [address] [place] [address] PLATELETS (10*3/UL) IN BLOOD AUTOMATED COUNT 148 10*3/uL Low 150-400 [facility] Comment on above: Performed By: #### L [id number] #### [facility] ([facility]) [address] [place] [address] RBC (Bld) [#/Vol] 3.99 10*6/uL Low 4.20-5.70 [facility] Comment on above: Performed By: #### L [id number] #### [facility] ([facility]) [address] [place] [place] [address] WBC (Bld) [#/Vol] 7.82 10*3/uL Normal 4.00-10.60 [facility] Comment on above: Performed By: #### L [id number] #### [facility] ([facility]) [address] [place] [address] [place] 11-17-2023 ANES -- Attestation signed by [...] Information Date: 11/17/23 Procedure: Implant PPM Location: [facility] (Cath) Providers: Nora Rivera MD Clinical information reviewed: Allergies Meds Physical Exam Airway Mallampati: III Cardiovascular Rhythm: regular Rate: normal Dental Pulmonary Breath sounds clear to auscultation Abdominal Abdomen: soft Anesthesia Plan Additional Equipment Requests Normal [facility] BASIC METABOLIC PANELon 10-23 Anion gap [Moles/Vol] 11 mmol/L Normal 7-20 [facility] Comment on above: Performed By: #### L [id number] #### [facility] ([facility]) [address] [place] [address] Calcium [Mass/Vol] 8.0 mg/dL Low 8.6-10.3 [facility] Comment on above: Performed By: #### L [id number] #### [facility] ([facility]) [address] [place] [address] Chloride [Moles/Vol] 109 mmol/L High 98-107 [facility] Comment on above: Performed By: #### L [id number] #### [facility] ([facility]) [address] [place] [address] CO2 [Moles/Vol] 25 mmol/L Normal 21-31 [facility] Comment on above: Performed By: #### L [id number] #### [facility] ([facility]) [address] [place] [address] Creatinine [Mass/Vol] 1.42 mg/dL High 0.70-1.30 [facility] Comment on above: Performed By: #### L [id number] #### [facility] ([facility]) [address] [place] [address] GLOMERULAR FILTRATION RATE ML/MIN/1.73 SQ M.PREDICTED 48.4 mL/min/1.73m*2 Low >60.0 [facility] Comment on above: Result Comment: The [facility]???s estimated glomerular filtration rate (eGFR) will no [...] L AB15 #### [facility] ([facility]) [address] [place] [address] Glucose [Mass/Vol] 169 mg/dL High 70-100 [facility] Comment on above: Performed By: #### L [id number] #### [facility] ([facility]) [address] [place] [address] Potassium [Moles/Vol] 4.3 mmol/L Normal 3.5-5.1 [facility] Comment on above: Performed By: #### L [id number] #### [facility] ([facility]) [address] [place] [address] Sodium [Moles/Vol] 141 mmol/L Normal 136-145 [facility] Comment on above: Performed By: #### L [id number] #### [facility] ([facility]) [address] [place] [address] Urea nitrogen [Mass/Vol] 33 mg/dL High 7-25 [facility] Comment on above: Performed By: #### L [id number] #### [facility] ([facility]) [address] [place] [address] UREA NITROGEN/CREATININ E (MASS RATIO) IN SER/PLAS 23.2 Normal [facility] Comment on above: Performed By: #### L [id number] #### [facility] ([facility]) [address] [place] [address] CBCon 11-17-2023 Erythrocyte distribution width (RBC) [Ratio] 14.9 % Normal 11.5-15.0 [facility] Comment on above: Performed By: #### L [id number] #### [facility] ([facility]) [address] [place] [address] ERYTHROCYTE MEAN CORPUSCULAR HEMOGLOBIN CONCENTRATION (G/DL) BY AUTOMATED 32.2 g/dL Normal 32.0-35.0 [facility] Comment on above: Performed By: #### L [id number] #### [facility] ([facility]) [address] [place] [address] Hematocrit (Bld) [Volume fraction] 39.5 % Normal 39.0-55.0 [facility] Comment on above: Performed By: #### L [id number] #### [facility] ([facility]) [address] [place] [place] [address] Hemoglobin (Bld) [Mass/Vol] 12.7 g/dL Low 13.0-17.0 [facility] Comment on above: Performed By: #### L [id number] #### [facility] ([facility]) [address] [place] [address] MCH (RBC) [Entitic mass] 31.8 pg Normal 27.0-33.0 [facility] Comment on above: Performed By: #### L [id number] #### [facility] ([facility]) [address] [place] [place] [address] MCV (RBC) [Entitic vol] 99.0 fL High 82.0-98.0 [facility] Comment on above: Performed By: #### L [id number] #### [facility] ([facility]) [address] [place] [address] PLATELETS (10*3/UL) IN BLOOD AUTOMATED COUNT 157 10*3/uL Normal 150-400 [facility] Comment on above: Performed By: #### L [id number] #### [facility] ([facility]) [address] [place] [address] RBC (Bld) [#/Vol] 3.99 10*6/uL Low 4.20-5.70 [facility] Comment on above: Performed By: #### L [id number] #### [facility] ([facility]) [address] [place] [address] WBC (Bld) [#/Vol] 9.04 10*3/uL Normal 4.00-10.60 [facility] Comment on above: Performed By: #### L [id number] #### [facility] ([facility]) [address] [place] [address] HEMOGLOBIN A1Con 11-17-2023 Glucose [Mass/Vol] 114 mg/dL Normal [facility] Comment on above: Order Comment: NO VA RIANT Performed By: #### L [id number] ####[facility] ([facility])[address] [place] [address] HbA1c (Bld) [Mass fraction] 5.6 % Normal 4.0-6.0 [facility] Comment on above: Order Comment: NO VA RIANT Performed By: #### L [id number] ####[facility] ([facility])[address] [place] [address] HPon 11-17-2023 HP -- Attestation signed by [...] placement of PPM in the AM. Normal [facility] LIPID PANELon 11-17-2023 CHOL/HDL 3.8 mg/dL Normal [facility] Comment on above: Performed By: #### L [id number] ####[facility] ([facility])[address] [facility] [place] [address] Cholesterol [Mass/Vol] 127 mg/dL Normal 120-200 [facility] Comment on above: Performed By: #### L [id number] ####[facility] ([facility])[address] [facility] [place] [address] Magnesium [Mass/Vol] 81 mg/dL Normal 40-149 [facility] Comment on above: Result Comment: TRIG LYCERIDE REFERENCE RANGE: 20 YEARS AND OLDER CARDIOVASCULAR RISK LESS THAN 150 mg/dL LOW RISK 150 TO 199 mg/dL BORDERLINE RISK 200 mg/dL AND GREATER HIGH RISK Performed By: #### L [id number] ####[facility] ([facility])[address] [place] [address] Magnesium [Mass/Vol] 78 mg/dL Normal 0-160 [facility] Comment on above: Performed By: #### L [id number] ####[facility] ([employer])[address] [place] [address] Magnesium [Mass/Vol] 33 mg/dL Normal 23-92 [facility] Comment on above: Performed By: #### L [id number] ####[facility] ([facility])[address] [place] [address] NON HDL CHOL. (LDL+VLDL) 94 Normal [facility] Comment on above: Performed By: #### L [id number] ####[facility] ([facility])[address] [place] [address] TOTAL VLDL-C 16 mg/dL Normal 0-40 [facility] Comment on above: Performed By: #### L [id number] ####[facility] ([facility])[address] [place] [address] LIPOPROTEIN A (LPA)on 2023 Magnesium [Mass/Vol] 23 mg/dL Normal <=29 [facility] Comment on above: Result Comment: Perf ormed By: [email or web address] [address] [place] [id number] Professor Of Biblical Studies: Rivas Castillo MD, PhD CLIA Number: [id number] Performed By: #### L [id number] #### [facility] ([facility]) [address] [place] [address] MAGNESIUMon 11-17-2023 Magnesium [Mass/Vol] 2.0 mg/dL Normal 1.9-2.7 [facility] Comment on above: Performed By: #### L [id number] ####[facility] ([facility])[address] [place] [address] PHOSPHORUSon 11-17-2023 Magnesium [Mass/Vol] 3.1 mg/dL Normal 2.5-5.0 [facility] Comment on above: Performed By: #### L [id number] #### [facility] ([facility]) [address] [facility] [place] [place] [address] 30on 11-16-2023 30 The patient is Moderately [...] or at baseline Outcome: Not Progressing Normal [facility] ANESon 11-16-2023 ANES Patient: Nat Moore Choose [...] Equipment Requests Jovita Sanchez MD, MPH, FACC, [facility], [facility] Interventional Cardiology Pager Email: [email or web address] .[email or web address] Normal [facility] B-TYPE NATRIURETIC PEPTIDEon 11-16-2023 Natriuretic peptide B (Bld) [Mass/Vol] 103 pg/mL High 0-100 [facility] Comment on above: Performed By: #### L [id number] #### [facility] ([facility]) [address] [place] [address] BASIC METABOLIC PANELon 10-23 Anion gap [Moles/Vol] 10 mmol/L Normal 7-20 [facility] Comment on above: Performed By: #### L [id number] #### [facility] ([facility]) [address] [place] [address] Calcium [Mass/Vol] 8.2 mg/dL Low 8.6-10.3 [facility] Comment on above: Performed By: #### L [id number] #### [facility] ([facility]) [address] [place] [address] Chloride [Moles/Vol] 108 mmol/L High 98-107 [facility] Comment on above: Performed By: #### L [id number] #### [facility] [address] [place] [address] CO2 [Moles/Vol] 27 mmol/L Normal 21-31 [facility] Comment on above: Performed By: #### L [id number] #### [facility]) [address] [place] [address] Creatinine [Mass/Vol] 1.53 mg/dL High 0.70-1.30 [facility] Comment on above: Performed By: #### L [id number] #### [facility] ([facility]) [address] [place] [address] GLOMERULAR FILTRATION RATE ML/MIN/1.73 SQ M.PREDICTED 44.3 mL/min/1.73m*2 Low >60.0 [facility] Comment on above: Result Comment: The [facility]???s estimated glomerular filtration rate (eGFR) will no [...] L [id number] #### [facility] ([facility]) [address] [place] [address] Glucose [Mass/Vol] 124 mg/dL High 70-100 [facility] Comment on above: Performed By: #### L [id number] #### [facility] ([facility]) [address] [place] [address] Potassium [Moles/Vol] 4.3 mmol/L Normal 3.5-5.1 [facility] Comment on above: Performed By: #### L [id number] #### [facility] ([facility]) [address] [place] [address] Sodium [Moles/Vol] 141 mmol/L Normal 136-145 [facility] Comment on above: Performed By: #### L [id number] #### [facility] ([facility]) [address] [place] [address] Urea nitrogen [Mass/Vol] 31 mg/dL High 7-25 [facility] Comment on above: Performed By: #### L [id number] #### [facility] ([facility]) [address] [place] [address] UREA NITROGEN/CREATININ E (MASS RATIO) IN SER/PLAS 20.3 Normal [facility] Comment on above: Performed By: #### L [id number] #### [facility] ([facility]) [address] [place] [address] Anion gap [Moles/Vol] 10 mmol/L Normal 7-20 [facility] Comment on above: Performed By: #### L [id number] #### [facility] ([facility]) [address] [place] [address] Calcium [Mass/Vol] 8.1 mg/dL Low 8.6-10.3 [facility] Comment on above: Performed By: #### L [id number] #### [facility] ([facility]) [address] [place] [address] Chloride [Moles/Vol] 108 mmol/L High 98-107 [facility] Comment on above: Performed By: #### L [id number] #### [facility] ([facility]) [address] [place] [address] CO2 [Moles/Vol] 27 mmol/L Normal 21-31 [facility] Comment on above: Performed By: #### L [id number] #### [facility] ([facility]) [address] [place] [address] Creatinine [Mass/Vol] 1.40 mg/dL High 0.70-1.30 [facility] Comment on above: Performed By: #### L [id number] #### [facility] ([facility]) [address] [place] [address] GLOMERULAR FILTRATION RATE ML/MIN/1.73 SQ M.PREDICTED 49.3 mL/min/1.73m*2 Low >60.0 [facility] Comment on above: Result Comment: The [facility]???s estimated glomerular filtration rate (eGFR) will no [...] L [id number] #### [facility] ([facility]) [address] [place] [address] Glucose [Mass/Vol] 136 mg/dL High 70-100 [facility] Comment on above: Performed By: #### L [id number] #### [facility] ([facility]) [address] [facility] [place] [address] Potassium [Moles/Vol] 4.3 mmol/L Normal 3.5-5.1 [facility] Comment on above: Performed By: #### L [id number] #### [facility] ([facility]) [address] [place] [address] Sodium [Moles/Vol] 141 mmol/L Normal 136-145 [facility] Comment on above: Performed By: #### L [id number] #### [facility] ([facility]) [address] [place] [address] Urea nitrogen [Mass/Vol] 27 mg/dL High 7-25 [facility] Comment on above: Performed By: #### L [id number] #### [facility] ([facility]) [address] [place] [address] UREA NITROGEN/CREATININ E (MASS RATIO) IN SER/PLAS 19.3 Normal [facility] Comment on above: Performed By: #### L [id number] #### [facility] ([facility]) [address] [facility] [place] [address] CBCon 11-16-2023 Erythrocyte distribution width (RBC) [Ratio] 15.1 % High 11.5-15.0 [facility] Comment on above: Performed By: #### L [id number] #### [facility] ([facility]) [address] [place] [address] ERYTHROCYTE MEAN CORPUSCULAR HEMOGLOBIN CONCENTRATION (G/DL) BY AUTOMATED 32.4 g/dL Normal 32.0-35.0 [facility] Comment on above: Performed By: #### L [id number] #### [facility] ([facility]) [address] [place] [address] Hematocrit (Bld) [Volume fraction] 36.7 % Low 39.0-55.0 [facility] Comment on above: Performed By: #### L [id number] #### [facility] ([facility]) [address] [place] [address] Hemoglobin (Bld) [Mass/Vol] 11.9 g/dL Low 13.0-17.0 [facility] Comment on above: Performed By: #### L [id number] #### [facility] ([facility]) [address] [place] [address] MCH (RBC) [Entitic mass] 32.0 pg Normal 27.0-33.0 [facility] Comment on above: Performed By: #### L [id number] #### [facility] ([facility]) [address] [place] [address] MCV (RBC) [Entitic vol] 98.7 fL High 82.0-98.0 [facility] Comment on above: Performed By: #### L [id number] #### [facility] ([facility]) [address] [place] [address] PLATELETS (10*3/UL) IN BLOOD AUTOMATED COUNT 157 10*3/uL Normal 150-400 [facility] Comment on above: Performed By: #### L [id number] #### [facility] ([facility]) [address] [place] [address] RBC (Bld) [#/Vol] 3.72 10*6/uL Low 4.20-5.70 [facility] Comment on above: Performed By: #### L [id number] #### [facility] ([facility]) [address] [place] [address] WBC (Bld) [#/Vol] 8.83 10*3/uL Normal 4.00-10.60 [facility] Comment on above: Performed By: #### L [id number] #### [facility] ([facility]) [address] [address] HPon 11-16-2023 H&P reviewed. Apparently this morning, [...] wishes to proceed. Jovita Sanchez MD, MPH, [facility], [facility], [facility] Interventional Cardiology Pager Email: [email or web address] .[facility] HP -- Attestation signed by Art Mckoy [...] which are billed separately. Art Mckoy MD [facility] Pulmonary and Critical Care Medicine Adult ICU History & Physical Patient - Nat Moore Age - 83 y.o. [facility] 1940 [id number] Date of Admission - 11/15/2023 2:42 PM Chief Complaint Syncope History of Present Illness Nat Moore is a an 83-year-old gentleman with PMH significant for type 2 diabetes mellitus, essential hypertension, hyperlipidemia, CKD stage IIIa, bilateral lower extremity edema on diuretic therapy, osteoarthritis, depression and mild cognitive impairment was initially admitted to the hospitalist service from [place] due to recurrent episodes of syncope secondary [...] his presenting complaints. During his stay in [place] ED he suddenly developed bradycardia prolonged sinus [...] of the abdomen with contrast done at [place] ED showed nonobstructive bowel gas pattern with [...] planning on taking the patient to the Geospatial Information Technologist tomorrow for possible transvenous pacemaker placement. PMH: [...] sodium (C (more content not included)... Normal [facility] LACTIC ACID WITH 4 HOUR REFL EXon 11-16-2023 LACTATE (MMOL/L) IN SER/PLAS 1.2 mmol/L Normal 0.5-2.2 [facility] Comment on above: Performed By: #### L [id number] #### [facility] ([facility]) [address] [place] [address] MAGNESIUMon 11-16-2023 Magnesium [Mass/Vol] 2.1 mg/dL Normal 1.9-2.7 [facility] Comment on above: Performed By: #### L [id number] #### [facility] ([facility]) [address] [place] [address] Magnesium [Mass/Vol] 1.7 mg/dL Low 1.9-2.7 [facility] Comment on above: Performed By: #### L [id number] #### [facility] ([facility]) [address] [place] [address] PRO-BNPon 11-16-2023 Natriuretic peptide B (Bld) [Mass/Vol] 576 pg/mL High 0-300 [facility] Comment on above: Result Comment: An a ge-independent cutoff point of 300 pg/ml has a 98% negative predictive value excluding acute heart failure. Test Performed by [facility] [address] [place] [id number] - Released 11/16/2023 20:27 Performed By: #### L [id number] ####[employer] [id number] [place] [address] TSH3 REFLEX TO FT4on 024 THYROTROPIN (MIU/L) IN SER/PLAS BY DETECTION LIMIT <= 0.05 MIU/L 1.67 mIU/L Normal 0.34-5.60 [facility] Comment on above: Performed By: #### L [id number] #### [facility] ([facility]) [address] [place] [address] 30on 11-15-2023 30 The patient is Moderately [...] and maintained or improved Outcome: Progressing Normal [facility] CBCon 11-15-2023 Erythrocyte distribution width (RBC) [Ratio] 15.2 % High 11.5-15.0 [facility] Comment on above: Performed By: #### L [id number] ####[facility] ([facility])[address] [place] [address] ERYTHROCYTE MEAN CORPUSCULAR HEMOGLOBIN CONCENTRATION (G/DL) BY AUTOMATED 32.8 g/dL Normal 32.0-35.0 [facility] Comment on above: Performed By: #### L [id number] ####[facility] ([facility])[address] [place] [address] Hematocrit (Bld) [Volume fraction] 37.8 % Low 39.0-55.0 [facility] Comment on above: Performed By: #### L [id number] ####[facility] ([facility])[address] [place] [address] Hemoglobin (Bld) [Mass/Vol] 12.4 g/dL Low 13.0-17.0 [facility] Comment on above: Performed By: #### L [id number] ####[facility] ([facility])[address] [place] [address] MCH (RBC) [Entitic mass] 31.9 pg Normal 27.0-33.0 [facility] Comment on above: Performed By: #### L [id number] ####[facility] ([facility])[address] [place] [address] MCV (RBC) [Entitic vol] 97.2 fL Normal 82.0-98.0 [facility] Comment on above: Performed By: #### L [id number] ####[facility] ([facility])[address] [place] [address] PLATELETS (10*3/UL) IN BLOOD AUTOMATED COUNT 172 10*3/uL Normal 150-400 [facility] Comment on above: Performed By: #### L [id number] ####[facility] ([facility])[address] [place] [address] RBC (Bld) [#/Vol] 3.89 10*6/uL Low 4.20-5.70 [facility] Comment on above: Performed By: #### L [id number] ####[facility] ([facility])[address] [place] [address] WBC (Bld) [#/Vol] 8.89 10*3/uL Normal 4.00-10.60 [facility] Comment on above: Performed By: #### L [id number] ####[facility] ([facility])[address] [place] [address] COMPREHENSIVE METABOLIC PANE Dmitri 11-15-2023 Albumin [Mass/Vol] 3.7 g/dL Normal 3.5-5.7 [facility] Comment on above: Performed By: #### L [id number] #### [facility] ([facility]) [address] [place] [address] ALP [Catalytic activity/Vol] 70 U/L Normal 34-104 [facility] Comment on above: Performed By: #### L [id number] #### [facility] ([facility]) [address] [place] [address] ALT [Catalytic activity/Vol] 7 U/L Normal 7-52 [facility] Comment on above: Performed By: #### L [id number] #### [facility] ([facility]) [address] [place] [address] Anion gap [Moles/Vol] 9 mmol/L Normal 7-20 [facility] Comment on above: Performed By: #### L [id number] #### [facility] ([facility]) [address] [place] [address] AST [Catalytic activity/Vol] 11 U/L Low 13-39 [facility] Comment on above: Performed By: #### L [id number] #### [facility] ([facility]) [address] [place] [address] Bilirubin [Mass/Vol] 0.6 mg/dL Normal 0.3-1.0 [facility] Comment on above: Performed By: #### L [id number] #### [facility] ([facility]) [address] [place] [address] Calcium [Mass/Vol] 8.2 mg/dL Low 8.6-10.3 [facility] Comment on above: Performed By: #### L [id number] #### [facility] ([facility]) [address] [place] [address] Chloride [Moles/Vol] 107 mmol/L Normal 98-107 [facility] Comment on above: Performed By: #### L [id number] #### [facility] ([facility]) [address] [place] [address] CO2 [Moles/Vol] 29 mmol/L Normal 21-31 [facility] Comment on above: Performed By: #### L [id number] #### [facility] ([facility]) [address] [place] [address] Creatinine [Mass/Vol] 1.37 mg/dL High 0.70-1.30 [facility] Comment on above: Performed By: #### L [id number] #### [facility] ([facility]) [address] [place] [address] GLOMERULAR FILTRATION RATE ML/MIN/1.73 SQ M.PREDICTED 50.6 mL/min/1.73m*2 Low >60.0 [facility] Comment on above: Result Comment: The [facility]???s estimated glomerular filtration rate (eGFR) will no [...] L [id number] #### [facility] ([facility]) [address] [place] [address] Glucose [Mass/Vol] 120 mg/dL High 70-100 [facility] Comment on above: Performed By: #### L [id number] #### [facility] ([facility]) [address] [place] [address] Potassium [Moles/Vol] 4.1 mmol/L Normal 3.5-5.1 [facility] Comment on above: Performed By: #### L [id number] #### [facility] ([facility]) [address] [place] [address] Protein [Mass/Vol] 6.0 g/dL Normal 6.0-8.3 [facility] Comment on above: Performed By: #### L [id number] #### [facility] ([facility]) [address] [place] [address] Sodium [Moles/Vol] 141 mmol/L Normal 136-145 [facility] Comment on above: Performed By: #### L [id number] #### [facility] ([facility]) [address] [place] [address] Urea nitrogen [Mass/Vol] 26 mg/dL High 7-25 [facility] Comment on above: Performed By: #### L [id number] #### [facility] ([facility]) [address] [place] [address] UREA NITROGEN/CREATININ E (MASS RATIO) IN SER/PLAS 19.0 Normal [facility] Comment on above: Performed By: #### L [id number] #### [facility] ([facility]) [address] [place] [address] CONSULTon 11-15-2023 CONSULT Division of Cardiovascular Medicine Interventional Cardiology Consult Chief Complaint: Transfer from [place] HPI: 83 yo with h/o HTN, CKD, dyslipidemia presented to [facility] with c/o chest and back pain. While being evaluated he had episodes of prolonged sinus pauses (12-18 sec?) with loss of consciousness and vomiting. He was Life flighted to [facility]. On arrival , I evaluated him at [...] infarctions or CHF. 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 Patient Active Problem List Diagnosis Syncope [...] plan on (more content not included)... Normal [facility] CT HEAD WO IV CONTRASTon CT HEAD [...] GAGANDEEP CLAUDIO MD. 3 Invalid Interpretation Code [facility] HPon 11-15-2023 Division of Cardiovascular Medicine Interventional Cardiology Consult Chief Complaint: Transfer from [place] HPI: 83 yo with h/o HTN, CKD, dyslipidemia presented to [facility] with c/o chest and back pain. While being evaluated he had episodes of prolonged sinus pauses (12-18 sec?) with loss of consciousness and vomiting. He was Life flighted to [facility]. On arrival , I evaluated him at [...] infarctions or CHF. 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 Patient Active Problem List Diagnosis Syncope [...] plan on (more content not included)... Normal [facility] MAGNESIUMon 11-15-2023 Magnesium [Mass/Vol] 1.7 mg/dL Low 1.9-2.7 [facility] Comment on above: Performed By: #### L [id number] #### [facility] ([facility]) [address] [place] [address] LUKASNOTEon 11-15-2023 NURSNOTBernardo Field Support Specialist reach out to Cardiology (Dr. Figueroa) to notify her of the pt transferring to MICU due to change in condition and code blue being called. She asked if the patient was paced at bedside and nurse replied no but pt was transferred and will be paced in MICU. Normal [facility] NURSNOTE Field Support Specialist attempted to reach out to family via home number in chart and it wasn't in service. Charge nurse MIGUEL Lloyd was notified and MICU was notified as well by MIGUEL Lloyd. Normal [facility] ELIEL Bedside report given to MIGUEL Ghosh prior to transfer to MICU due to change in condition and code blue being called for asystole lasting 10.19 seconds. Normal [facility] ELIEL Spoke with Dr. Wendy dominguez via [...] done and we'll go from there. Normal [facility] TROPONIN Ion 11-15-2023 Troponin I.cardiac [Mass/Vol] 0.01 ng/mL Normal 0.00-0.04 [facility] Comment on above: Performed By: #### L [id number] #### [facility] ([facility]) [address] [place] [address] HbA1c (Bld) [Mass fraction]o n 11-13-2023 [facility] - Hematology and Cell countson 11-13-2023 HbA1c (Bld) [Mass fraction] 5.8 % [facility] Urology Office/Clinic Noteon 11-12-2023 Urology Office/Clinic Note [...] call if too cost prohibitive, sent to [employer] Stefan Hutchins -f/up in 3 mos 2. [...] 23-valent vac (more content not included)... Normal [facility] Comment on above: Result Comment: Elec [...] APRN, Marianela Rodriguez Where: [facility] [address] [address]- You Need to Schedule the Following Appointments Follow Up with RAUL Ingram APRN, Marianela Rodriguez, FAM, URL When: Comments: f/up in 3 [...] Leaking ur (more content not included)... Normal [facility] Patient Letter [facility] October 14, 2023 NAT Tran [facility] [address] [place] [address] : 1940 Dear Nat, You missed your [...] your consideration regarding any future cancellations. Sincerely, [facility] [employer] [facility], [facility] [place] [address] [facility] Patient Letter FTon 2023 Patient Letter [facility] May 13, [address] [place] [address] : 1940 Dear Nat, You missed your [...] your consideration regarding any future cancellations. Sincerely, [facility], [place] [address] [facility] BNPon 07-27-2022 Natriuretic peptide B (Bld) [Mass/Vol] 178.0 pg/mL Normal <=1,800.0 [facility] Comment on above: Performed By: #### C MP, BNP, CMADM #### [facility] [address] [place] [address] Dr. Loyd Parks CARDIAC SPARKLE ADMITon 023 CK [Catalytic activity/Vol] 50 U/L Normal 39-[address] [facility] Comment on above: Performed By: #### C MP, BNP, CMADM #### [facility] [address] [place] [address] Dr. Loyd Parks CK.MB [Mass/Vol] 0.83 ng/mL Normal <=3.60 [facility] Comment on above: Performed By: #### C MP, BNP, CMADM #### [facility] [address] [place] [address] Dr. Loyd Parks HSTROP 6.3 pg/mL Normal 4.0-76.[address] [facility] Comment on above: Result Comment: CUT- OFF POINTS HAVE BEEN ESTABLISHED BASED ON THE FOURTH UNIVERSAL DEFINITIONS OF MYOCARDIAL INFARCTION. THE UPPER REFERENCE LIMIT (URL) OF TROPONIN, DEFINED THE 99TH PERCENTILE OF cTnI DISTRIBUTION IN A REFERENCE POPULATION, HAS BEEN CONFIRMED THE DECISION THRESHOLD FOR PR DIAGNOSIS. Performed By: #### C MP, BNP, CMADM #### [facility] [address] [place] [address] Dr. Loyd Parks WM 121 ng/mL Critically high 16-96 [facility] Comment on above: Performed By: #### C MP, BNP, CMADM #### [facility] [address] [place] [address] Dr. Loyd Parks CBC AUTO DIFFon 07-27-2022 BASO # 0.1 103/ul Normal 0.0-0.1 [facility] Comment on above: Performed By: #### C BC #### [facility] [address] [place] [address] Dr. Loyd Parks Basophils/100 WBC (Bld) 0.6 % Normal 0.2-2.0 [facility] Comment on above: Performed By: #### C BC #### [facility] [address] [place] [address] Dr. Loyd Parks EO # 0.5 103/ul Normal 0.0-0.7 [facility] Comment on above: Performed By: #### C BC #### [facility] [address] [place] [address] Dr. Loyd Parks Eosinophils/100 WBC (Bld) 4.8 % Normal 0.9-7.0 [facility] Comment on above: Performed By: #### C BC #### [facility] [address] [place] [address] Dr. Loyd Parks Erythrocyte distribution width (RBC) [Ratio] 13.5 % Normal 11.0-15.0 [facility] Comment on above: Performed By: #### C BC #### [facility] [address] [place] [address] Dr. Loyd Parks Hematocrit (Bld) [Volume fraction] 39.7 % Critically low 42.0-54.0 [facility] Comment on above: Performed By: #### C BC #### [facility] [address] [place] [address] Dr. Loyd Parks Hemoglobin (Bld) [Mass/Vol] 13.1 g/dL Critically low 14.0-18.0 [facility] Comment on above: Performed By: #### C BC #### [facility] [address] [place] [address] Dr. Loyd Parks IG # 0.05 10e3/ul Critically high 0.00-0.03 [facility] Comment on above: Performed By: #### C BC #### [facility] [address] [place] [address] Dr. Loyd Parks IG % 0.5 % Normal 0.0-0.5 [facility] Comment on above: Performed By: #### C BC #### [facility] [address] [place] [address] Dr. Loyd Parks LYMPH # 1.4 103/ul Normal 1.2-3.8 [facility] Comment on above: Performed By: #### C BC #### [facility] [address] [place] [address] Dr. Loyd Parks Lymphocytes/100 WBC (Bld) 14.1 % Critically low 20.5-60.0 [facility] Comment on above: Performed By: #### C BC #### [facility] [address] [place] [address] Dr. Loyd Parks MANUAL DIFF REQ NO Normal [facility] Comment on above: Performed By: #### C BC #### [facility] [address] [place] [address] Dr. Loyd Parks MCH (RBC) [Entitic mass] 31.6 pg Normal 25.9-34.0 [facility] Comment on above: Performed By: #### C BC #### [facility] [address] [place] [address] Dr. Loyd Parks MCHC (RBC) [Mass/Vol] 33.0 g/dL Normal 29.9-35.2 [facility] Comment on above: Performed By: #### C BC #### [facility] [address] [place] [address] Dr. Loyd Parks MCV (RBC) [Entitic vol] 95.7 fL Critically high 80.0-94.0 [facility] Comment on above: Performed By: #### C BC #### [facility] [address] [place] [address] Dr. Loyd Parks MONO # 1.0 103/ul Critically high 0.3-0.8 [facility] Comment on above: Performed By: #### C BC #### [facility] [address] [place] [address] Dr. Loyd Parks Monocytes/100 WBC (Bld) 9.7 % Normal 1.7-12.[address] [facility] Comment on above: Performed By: #### C BC #### [facility] [address] [place] [address] Dr. Loyd Parks NEUT # 7.2 103/ul Critically high 1.4-6.5 [facility] Comment on above: Performed By: #### C BC #### [facility] [address] [place] [address] Dr. Loyd Parks Neutrophils/100 WBC (Bld) 70.3 % Normal 43.0-75.0 [facility] Comment on above: Performed By: #### C BC #### [facility] [address] [place] [address] Dr. Loyd Parks Platelet mean volume (Bld) [Entitic vol] 10.8 fL Normal 9.5-13.5 [facility] Comment on above: Performed By: #### C BC #### [facility] [address] [place] [address] Dr. Loyd Parks PLT 199 103/ul Normal 150-450 [facility] Comment on above: Performed By: #### C BC #### [facility] [address] [place] [address] Dr. Loyd Parks RBC 4.15 106/ul Critically low 4.70-6.10 [facility] Comment on above: Performed By: #### C BC #### [facility] [address] [place] [address] Dr. Loyd Parks WBC 10.2 103/ul Normal 4.0-11.0 [facility] Comment on above: Performed By: #### C BC #### [facility] [address] [place] [address] Dr. Loyd Parks CULTURE BLOODon 07-27-2022 Microscopic examination of blood, culture Culture Observations: NO GROWTH AT [address] [facility] Comment on above: Performed By: #### E RUR #### [facility] [address] [place] [address] Dr. Loyd Parks [facility]on SARS-CoV-2 (COVID-19) RNA SAUNDRA+probe Ql (Unsp spec) Not detected Normal NOT DETECTED [facility] Comment on above: Result Comment: This test is not yet approved or cleared by the [place] FDA. When there are no FDA-approved or cleared tests available, and other criteria are met, FDA can make tests available under an emergency access mechanism called an Emergency Use Authorization (EUA). The EUA for this test is supported by the [place] of Health and Human Service's (HHS's) declaration [...] SARS-CoV-2. Performed By: #### E RUR #### [facility] [address] [place] [address] Dr. Loyd Parks LACTATE/LACTIC ACIDon 2022 Lactate [Moles/Vol] 2.2 mmol/L Critically high 0.4-2.0 [facility] Comment on above: Performed By: #### C MP, BNP, CMADM #### [facility] [address] [place] [address] Dr. Loyd Parks PROF 14(COMP METB)on 023 Albumin [Mass/Vol] 3.3 g/dL Critically low 3.4-5.0 [facility] Comment on above: Performed By: #### C MP, BNP, CMADM #### [facility] [address] [place] [address] Dr. Loyd Parks Albumin/Globulin [Mass ratio] 0.9 {ratio} Normal [facility] Comment on above: Performed By: #### C MP, BNP, CMADM #### [facility] [address] [place] [address] Dr. Loyd Parks ALP [Catalytic activity/Vol] 91 U/L Normal 46-116 [facility] Comment on above: Performed By: #### C MP, BNP, CMADM #### [facility] [address] [place] [address] Dr. Loyd Parks ALT [Catalytic activity/Vol] 18 U/L Normal 16-63 [facility] Comment on above: Performed By: #### C MP, BNP, CMADM #### [facility] [address] [address] [address] Loyd Parks Anion gap [Moles/Vol] 12.2 mmol/L Normal [facility] Comment on above: Performed By: #### C MP, BNP, CMADM #### [facility] [address] [place] [address] Dr. Loyd Parks AST [Catalytic activity/Vol] 15 U/L Normal 15-37 [facility] Comment on above: Performed By: #### C MP, BNP, CMADM #### [facility] [address] [place] [address] Dr. Loyd Parks Bilirubin [Mass/Vol] 0.4 mg/dL Normal 0.2-1.0 [facility] Comment on above: Performed By: #### C MP, BNP, CMADM #### [facility] [address] [place] [address] Dr. Loyd Parks Calcium [Mass/Vol] 8.7 mg/dL Normal 8.5-10.1 [facility] Comment on above: Performed By: #### C MP, BNP, CMADM #### [facility] [address] [place] [address] Dr. Loyd Parks Chloride [Moles/Vol] 105 mmol/L Normal 98-107 [facility] Comment on above: Performed By: #### C MP, BNP, CMADM #### [facility] [address] [place] [address] Dr. Loyd Parks CO2 [Moles/Vol] 28.0 mmol/L Normal 21.0-32.0 [facility] Comment on above: Performed By: #### C MP, BNP, CMADM #### [facility] [address] [place] [address] Dr. Loyd Parks Creatinine [Mass/Vol] 2.25 mg/dL Critically high 0.70-1.30 [facility] Comment on above: Performed By: #### C MP, BNP, CMADM #### [facility] [address] [place] [address] Dr. Loyd Parks EGFR-AF TOGOLESE 34 mL/min/1.73m2 Critically low >=[address] [facility] Comment on above: Performed By: #### C MP, BNP, CMADM #### [facility] [address] [address] [address] Loyd Parks EGFR-NON AF TOGOLESE 28 mL/min/1.73m2 Critically low >=60 [facility] Comment on above: Performed By: #### C MP, BNP, CMADM #### [facility] [address] [address] [address] Loyd Parks Globulin (S) [Mass/Vol] 3.8 g/dL Normal [facility] Comment on above: Performed By: #### C MP, BNP, CMADM #### [facility] [address] [address] [address] Loyd Parks Glucose [Mass/Vol] 88 mg/dL Normal 74-106 [facility] Comment on above: Performed By: #### C MP, BNP, CMADM #### [facility] [address] [address] [address] Loyd Parks Potassium [Moles/Vol] 4.2 mmol/L Normal 3.5-5.[address] [facility] Comment on above: Performed By: #### C MP, BNP, CMADM #### [facility] [address] [place] [address] Dr. Loyd Parks Protein [Mass/Vol] 7.1 g/dL Normal 6.4-8.2 [facility] Comment on above: Performed By: #### C MP, BNP, CMADM #### [facility] [address] [address] [address] Loyd Parks Sodium [Moles/Vol] 141 mmol/L Normal 136-145 [facility] Comment on above: Performed By: #### C MP, BNP, CMADM #### [facility] [address] [place] [address] Dr. Loyd Parks Urea nitrogen [Mass/Vol] 36.0 mg/dL Critically high 7.0-18.0 [facility] Comment on above: Performed By: #### C MP, BNP, CMADM #### [facility] [address] [place] [address] Dr. Loyd Parks Urea nitrogen/Creatinin e [Mass ratio] 16.0 mg/mg Normal [facility] Comment on above: Performed By: #### C MP, BNP, CMADM #### [facility] [address] [place] [address] Dr. Loyd Parks PROTIMEon 07-27-2022 INR Coag (PPP) [Relative time] 0.95 {INR} Normal [facility] Comment on above: Performed By: #### P T, PTT #### [facility] [address] [place] [address] Dr. Loyd Parks INR GUIDELINES SEE BELOW Normal [facility] Comment on above: Result Comment: MARIE RED INR: 2.0 - 3.0 CONDITIONS NOT LISTED BELOW 2.5 - 3.5 FOR PROSTHETIC HEART VALVE REPLACEMENT 2.5 - 3.5 RECURRENT THROMBOSIS Performed By: #### P T, PTT #### [facility] [address] [place] [address] Dr. Loyd Parks PT Coag (PPP) [Time] 10.1 s Normal 9.0-11.6 [facility] Comment on above: Performed By: #### P T, PTT #### [facility] [address] [place] [address] Dr. Loyd Parks PTTon 07-27-2022 aPTT Coag (Bld) [Time] 27.3 s Normal 22.3-36.2 [facility] Comment on above: Performed By: #### P T, PTT #### [facility] [address] [place] [address] Dr. Loyd Parks SYMPTOMATIC COVID-19 ANTIGEN on 07-27-2022 EUA Statement SEE BELOW Normal [facility] Comment on above: Result Comment: [...] sooner. Performed By: #### C VDAGS #### [facility] [address] [place] [address] Dr. Loyd Parks SARS-CoV-2 (COVID-19) RNA SAUNDRA+probe Ql (Unsp spec) Negative Normal NEGATIVE [facility] Comment on above: Performed By: #### C VDAGS #### [facility] [address] [place] [address] Dr. Loyd Parks XR CHEST 2 Von [...] ELIUD KAUR Date: 2022-07-26 22:[address] [facility] POINT OF CARE GLUCOSEon 03-25 Glucose [Mass/Vol] 102 mg/dL Normal 74-106 [facility] Comment on above: Performed By: #### C MP, BNP, CMADM #### [facility] [address] [place] [address] Dr. Loyd Parks ER URINE PROFILEon 2 Bilirubin Ql (U) Negative Normal NEGATIVE [facility] Comment on above: Performed By: #### E RUR #### [facility] [address] [place] [address] Dr. Loyd Parks Clarity (U) CLEAR Normal CLEAR [facility] Comment on above: Performed By: #### E RUR #### [facility] [address] [place] [address] Dr. Loyd Parks Color (U) LT. YELLOW Normal YELLOW [facility] Comment on above: Performed By: #### E RUR #### [facility] [address] [address] [address] Loyd CONWAY A micrscopic examination will be performed if indicated. Normal [facility] Comment on above: Performed By: #### E RUR #### [facility] [address] [place] [address] Dr. Loyd Parks Glucose Ql (U) 100 mg/dl Abnormal NEGATIVE [facility] Comment on above: Performed By: #### E RUR #### [facility] [address] [address] [address] Loyd Parks Hemoglobin Ql (U) Negative Normal NEGATIVE [facility] Comment on above: Performed By: #### E RUR #### [facility] [address] [place] [address] Dr. Loyd Parks Ketones Ql (U) Negative Normal NEGATIVE [facility] Comment on above: Performed By: #### E RUR #### [facility] [address] [place] [address] Dr. Loyd Parks LEUKOCYTES Negative Normal NEGATIVE [facility] Comment on above: Performed By: #### E RUR #### [facility] [address] [place] [address] Dr. Loyd Parks Nitrite Ql (U) Negative Normal NEGATIVE [facility] Comment on above: Performed By: #### E RUR #### [facility] [address] [place] [address] Dr. Loyd Parks pH (U) 5.5 [pH] Normal 5-9 [facility] Comment on above: Performed By: #### E RUR #### [facility] [address] [place] [address] Dr. Loyd Parks SPEC GRAVITY 1.015 Normal 1.005-<=1.025 [facility] Comment on above: Performed By: #### E RUR #### [facility] [address] [place] [address] Dr. Loyd Parks UA PROTEIN Negative Normal NEGATIVE/ TRACE [facility] Comment on above: Performed By: #### E RUR #### [facility] [address] [place] [address] Dr. Loyd Parks UR MICRO IND NOT INDICATED Normal [facility] Comment on above: Performed By: #### E RUR #### [facility] [address] [place] [address] Dr. Loyd Parks Urobilinogen Qn (U) 0.2 {Malcolm'U}/dL Normal 0.2 - 1.0 [facility] Comment on above: Performed By: #### E RUR #### [facility] [address] [place] [address] Dr. Loyd Parks GROUP A STREP CULTUREon 02-21 S. pyogenes Ag Ql (Unsp spec) Culture Observations: NEGATIVE FOR GROUP A STREPTOCOCCUS. Normal [facility] Comment on above: Performed By: #### S SCRN, GRASTCX #### [facility] [address] [place] [address] Dr. Loyd Parks STREPT SCREENon 03-03-2022 STREP SCREEN A Negative Normal NEGATIVE [facility] Comment on above: Performed By: #### S SCRN, GRASTCX #### [facility] [address] [place] [address] Dr. Loyd Parks [facility]on SARS-CoV-2 (COVID-19) RNA SAUNDRA+probe Ql (Unsp spec) Not detected Normal NOT DETECTED [facility] Comment on above: Result Comment: This test is not yet approved or cleared by the [place] FDA. When there are no FDA-approved or cleared tests available, and other criteria are met, FDA can make tests available under an emergency access mechanism called an Emergency Use Authorization (EUA). The EUA for this test is supported by the [place] of Health and Human Service's (HHS's) declaration [...] By: #### C MP, BNP, CMADM #### [facility] [address] [place], [place] [address] Dr. Loyd Parks POINT OF CARE GLUCOSEon 12-22 Glucose [Mass/Vol] 133 mg/dL Critically high 74-106 [facility] Comment on above: Performed By: #### E RUR #### [facility] [address] [place], [place] [address] Dr. Loyd Parks POINT OF CARE GLUCOSEon Glucose [Mass/Vol] 75 mg/dL Normal 74-106 [facility] Comment on above: Performed By: #### E RUR #### [facility] [address] [address] [address] ABD/PELVIS WO CONon [...] SAURABH SINGH Date: 2021-09-03 08:[address] [facility] ER URINE PROFILEon 2 Bilirubin Ql (U) Negative Normal NEGATIVE [facility] Comment on above: Performed By: #### E RUR #### [facility] [address] [place] [address] Dr. Loyd Parks Clarity (U) CLEAR Normal CLEAR [facility] Comment on above: Performed By: #### E RUR #### [facility] [address] [address] [address] Loyd Parks Color (U) LT. YELLOW Normal YELLOW [facility] Comment on above: Performed By: #### E RUR #### [facility] [address] [address] [address] Loyd Parks ERUAHD A micrscopic examination will be performed if indicated. Normal [facility] Comment on above: Performed By: #### E RUR #### [facility] [address] [place] [address] Dr. Loyd Parks Glucose Ql (U) >1000 Abnormal NEGATIVE [facility] Comment on above: Performed By: #### E RUR #### [facility] [address] [place] [address] Dr. Loyd Parks Hemoglobin Ql (U) Negative Normal NEGATIVE [facility] Comment on above: Performed By: #### E RUR #### [facility] [address] [place] [address] Dr. Loyd Parks Ketones Ql (U) Negative Normal NEGATIVE [facility] Comment on above: Performed By: #### E RUR #### [facility] [address] [place] [address] Dr. Loyd Parks LEUKOCYTES Negative Normal NEGATIVE [facility] Comment on above: Performed By: #### E RUR #### [facility] [address] [place] [address] Dr. Loyd Parks Nitrite Ql (U) Negative Normal NEGATIVE [facility] Comment on above: Performed By: #### E RUR #### [facility] [address] [place] [address] Dr. Loyd Parks pH (U) 6.0 [pH] Normal 5-[address] [facility] Comment on above: Performed By: #### E RUR #### [facility] [address] [place] [address] Dr. Loyd Parks SPEC GRAVITY 1.010 Normal 1.005-<=1.025 [facility] Comment on above: Performed By: #### E RUR #### [facility] [address] [place] [address] Dr. Loyd Parks UA PROTEIN Negative Normal NEGATIVE/ TRACE [facility] Comment on above: Performed By: #### E RUR #### [facility] [address] [place] [address] Dr. Loyd Parks UR MICRO IND NOT INDICATED Normal [facility] Comment on above: Performed By: #### E RUR #### [facility] [address] [place] [address] Dr. Loyd Parks Urobilinogen Qn (U) 0.2 {Malcolm'U}/dL Normal 0.2 - 1.0 [facility] Comment on above: Performed By: #### E RUR #### [facility] [address] [place], [place] [address] Dr. Loyd Parks ALCOHOLon 07-31-2020 Ethanol [Mass/Vol] mg/dL Normal [facility] Comment on above: Result Comment: FOR MEDICAL USE ONLY. . REF VALUES <10 Performed By: #### A LC ####[facility] [place] [address] CBC AND DIFFERENTIALon 07-31 % AUTOMATED IMMATURE GRAN 0.4 % Normal 0.0 - 0.9 [facility] Comment on above: Result Comment: Rylie ture Granulocyte Count (IG) includes promyelocytes, myelocytes and metamyelocytes but does not include bands. Percent differential counts (%) should be interpreted in the context of the absolute cell counts (cells/L). Performed By: #### C BCDF #### [facility] [address] [place] [address] Basophils (Bld) [#/Vol] 0.05 10*3/uL Normal 0.00 - 0.10 [facility] Comment on above: Performed By: #### C BCDF #### [facility] [address] [place] [address] Basophils/100 WBC (Bld) 0.6 % Normal 0.0 - 2.0 [facility] Comment on above: Performed By: #### C BCDF #### [facility] [address] [place] [address] Eosinophils (Bld) [#/Vol] 0.21 10*3/uL Normal 0.00 - 0.40 [facility] Comment on above: Performed By: #### C BCDF #### [facility] [address] [place] [address] Eosinophils/100 WBC (Bld) 2.4 % Normal 0.0 - 6.0 [facility] Comment on above: Performed By: #### C BCDF #### [facility] [address] [place] [address] Erythrocyte distribution width (RBC) [Ratio] 13.2 % Normal 11.5 - 14.5 [facility] Comment on above: Performed By: #### C BCDF #### [facility] [address] [place] [address] Hematocrit (Bld) [Volume fraction] 50.0 % Normal 41.0 - 52.0 [facility] Comment on above: Performed By: #### C BCDF #### [facility] [address] [facility] [address] Hemoglobin (Bld) [Mass/Vol] 17.3 g/dL Normal 13.5 - 17.5 [facility] Comment on above: Performed By: #### C BCDF #### [facility] [id number] [place], [place] [address] [address] Lymphocytes (Bld) [#/Vol] 1.59 10*3/uL Normal 0.80 - 3.00 [facility] Comment on above: Performed By: #### C BCDF #### [facility] [id number] [place] [address] Lymphocytes/100 WBC (Bld) 17.9 % Normal 13.0 - 44.0 [facility] Comment on above: Performed By: #### C BCDF #### [facility] [id number] [place] [address] MCHC (RBC) [Mass/Vol] 34.6 g/dL Normal 32.0 - 36.0 [facility] Comment on above: Performed By: #### C BCDF #### [facility] [address] [place] [address] MCV (RBC) [Entitic vol] 89 fL Normal 80 - 100 [facility] Comment on above: Performed By: #### C BCDF #### [facility] [address] [facility] [address] Monocytes (Bld) [#/Vol] 0.82 10*3/uL High 0.05 - 0.80 [facility] Comment on above: Performed By: #### C BCDF #### [facility] [address] [place] [address] Monocytes/100 WBC (Bld) 9.2 % Normal 2.0 - 10.0 [facility] Comment on above: Performed By: #### C BCDF #### [facility] [address] [place] [address] Neutrophils (Bld) [#/Vol] 6.18 10*3/uL High 1.60 - 5.50 [facility] Comment on above: Performed By: #### C BCDF #### [facility] [address] [place] [address] Neutrophils/100 WBC (Bld) 69.5 % Normal 40.0 - 80.0 [facility] Comment on above: Performed By: #### C BCDF #### [facility] [address] [place] [address] Platelets (Bld) [#/Vol] 215 10*3/uL Normal 150 - 450 [facility] Comment on above: Performed By: #### C BCDF #### [facility] [address] [place] [address] RBC 5.59 x10E12/L Normal 4.50 - 5.90 [facility] Comment on above: Performed By: #### C BCDF #### [facility] [address] [place] [address] WBC (Bld) [#/Vol] 8.9 10*3/uL Normal 4.4 - 11.3 [facility] Comment on above: Performed By: #### C BCDF #### [facility] [address] [place] [address] CHEST 1 VIEWon 07-31-2020 CHEST 1 VIEW STUDY: Chest Radiograph; 07/30/2020 10:53 PM INDICATION: Shortness of breath. COMPARISON: None available. ACCESSION NUMBER(S): [id number] ORDERING CLINICIAN: ZAID CUELLAR DO TECHNIQUE: Frontal chest was obtained at 2355 hours. FINDINGS: CARDIOMEDIASTINAL SILHOUETTE: Cardiomediastinal silhouette is normal in size and configuration. LUNGS: Lungs are clear. ABDOMEN: No remarkable upper abdominal findings. BONES: No acute osseous changes. IMPRESSION: No acute pulmonary abnormality. Signed by Rodrick Dulai, MD Electronically signed by: RODRICK ANNA MD Normal [facility] COMPREHENSIVE PANELon 2020 Albumin [Mass/Vol] 3.7 g/dL Normal 3.4 - 5.0 [facility] Comment on above: Performed By: #### C MP ####[facility] [place] [address] ALP [Catalytic activity/Vol] 80 U/L Normal 33 - 136 [facility] Comment on above: Performed By: #### C MP ####[facility] [place] [address] ALT [Catalytic activity/Vol] 12 U/L Normal 10 - 52 [facility] Comment on above: Result Comment: Jade ents treated with Sulfasalazine may generate falsely decreased results for ALT. Performed By: #### C MP ####[facility] [place] [address] Anion gap [Moles/Vol] 13 mmol/L Normal 10 - 20 [facility] Comment on above: Performed By: #### C MP ####[facility] [place] [address] AST [Catalytic activity/Vol] 12 U/L Normal 9 - 39 [facility] Comment on above: Performed By: #### C MP ####[facility] [place] [address] Bilirubin [Mass/Vol] 0.7 mg/dL Normal 0.0 - 1.2 [facility] Comment on above: Performed By: #### C MP ####[facility] [place] [address] Calcium [Mass/Vol] 9.2 mg/dL Normal 8.6 - 10.3 [facility] Comment on above: Performed By: #### C MP ####[facility] [place] [address] Chloride [Moles/Vol] 101 mmol/L Normal 98 - 107 [facility] Comment on above: Performed By: #### C MP ####[facility] [place] [address] Creatinine [Mass/Vol] 1.36 mg/dL High 0.50 - 1.30 [facility] Comment on above: Performed By: #### C MP ####[facility] [address] GFR- AM. 61 mL/min/1.73m2 Normal >60 [facility] Comment on above: Result Comment: CALC ULATIONS OF ESTIMATED GFR ARE PERFORMED USING THE MDRD STUDY EQUATION FOR THE IDMS-TRACEABLE CREATININE METHODS. CLIN CHEM 2007;53:766-72 Performed By: #### C MP ####[facility] [place] [address] GFR-NON AM. 50 mL/min/1.73m2 Abnormal >60 [facility] Comment on above: Performed By: #### C MP ####[facility] [place] [address] Glucose [Mass/Vol] 390 mg/dL High 74 - 99 [facility] Comment on above: Performed By: #### C MP ####[facility] [place] [address] HCO3 (Bld) [Moles/Vol] 27 mmol/L Normal 21 - 32 [facility] Comment on above: Performed By: #### C MP ####[facility] [place] [address] Potassium [Moles/Vol] 4.1 mmol/L Normal 3.5 - 5.3 [facility] Comment on above: Performed By: #### C MP ####[facility] [place] [address] Protein [Mass/Vol] 6.8 g/dL Normal 6.4 - 8.2 [facility] Comment on above: Performed By: #### C MP ####[facility] [place] [address] Sodium [Moles/Vol] 137 mmol/L Normal 136 - 145 [facility] Comment on above: Performed By: #### C MP ####[facility] [place] [address] Urea nitrogen [Mass/Vol] 27 mg/dL High 6 - 23 [facility] Comment on above: Performed By: #### C MP ####[facility] [place] [address] CT HEAD WO CONTRASTon 2020 CT HEAD WO CONTRAST STUDY: CT Head without IV Contrast; 07/30/2020, 11:52 PM. INDICATION: Confusion, disorientation. COMPARISON: None Available. ACCESSION NUMBER(S): [id number] ORDERING CLINICIAN: ZAID CUELLAR DO TECHNIQUE: Noncontrast [...] Electronically signed by: RODRICK ANNA MD Normal [facility] MAGNESIUMon 07-31-2020 Magnesium [Mass/Vol] 2.04 mg/dL Normal 1.60 - 2.40 [facility] Comment on above: Performed By: #### M G #### [facility] [address] [place] [address] PT/INRon 07-31-2020 PT Coag (PPP) [Time] 12.0 s Normal 10.1 - 13.3 [facility] Comment on above: Performed By: #### P TINR #### [facility] [address] [place] [address] PT, INR 1.0 Normal 0.9 - 1.1 [facility] Comment on above: Performed By: #### P TINR #### [facility] [address] [place] [address] Provider Note - ED v2on 07-22 Provider Note - ED v2 Provider Note - ED v2: Chart Review: ED NOTES ED NOTES: History: This is an 80-year-old male presenting from the [facility] by [facility] for chief complaint of a medical evaluation. Patient left his home in [place] 3 days ago because he got into an argument with his and he has not been back since. He was finally located at a [facility] down the street when family called. [...] Review, Scores Last Updated: 11-Aug-2020 11:59 by Esdras-Wilhelm, Zaid (DO) References: 1. Data Referenced From Triage - ED 30-Jul-2020 23:17 Normal [facility] Risk Screen - Adult Emergenc [...] an injured patient at a Trauma Center ([facility]): no Electronic Signatures: Elizabeth Ivan (MIGUEL) (Signed 30-Jul-2020 23:24) Authored: Preferred Language, Advanced Directives, Family Violence Adult, Learning Assessment (Patient), Learning Assessment (Other Learner), Pressure Injury/TB/Substance, Pressure Injury, CAGE Last Updated: 30-Jul-2020 23:24 by Elizabeth Ivan (MIGUEL) Normal [facility] TROPONIN Ion 07-31-2020 Troponin I.cardiac [Mass/Vol] ng/mL Normal 0.00 - 0.03 [facility] Comment on above: Result Comment: [...] is performed using different testing methodology at [facility] than at other [facility]. Direct result comparisons should only be made within the same method. Performed By: #### T ROP2 #### [facility] [address] [place] [address] Triage - EDon 07-31-2020 Triage - ED [...] Arrival: stretcher Mode of Arrival: ambulance Agency: [facility] Agency Name: Monica Accompanied By: absorption operator Language: Spoken Language Preferred: Surinamese Reading Language Preferred: Surinamese CHIEF COMPLAINT NAT MOORE is a Male patient with a chief complaint of altered mental status. Triage Date/Time: 30-Jul-2020 22:50 LAILA: 3 Pain Rating (0-10): 0 = None Vital Signs: Temperature: 96.8F ( 36.0C) taken temporal Blood Pressure: 166/103 Mean: Heart Rate: 94 Respiratory Rate: 18 Pulse Oximetry: 97% on room air, no respiratory support. Weight: 230.3 pounds. Calculated 104.5 kg. (stated) [place] Coma Scale: Best Eye Response: (E4) spontaneous Best Motor Response: (M6) obeys commands Best Verbal Response: (V5) oriented [place] Score: 15 Allergies: yes Patient has homicidal [...] 30-Jul-2020 23:23 by Elizabeth Ivan (RN) Normal [facility] UA MICROSCOPICon 07-31-2020 RBC 1 /HPF Normal 0-5 [facility] Comment on above: Performed By: #### U AMIC #### [facility] [address] [place] [address] SQUAMOUS EPITH. CELLS <1 Normal [facility] Comment on above: Performed By: #### U AMIC #### [facility] [address] [place] [address] WBC 22 /HPF Abnormal 0-5 [facility] Comment on above: Performed By: #### U AMIC #### [facility] [address] [place] [address] URINALYSISon 07-31-2020 Appearance (U) CLEAR Normal CLEAR [facility] Comment on above: Performed By: #### U A #### [facility] [address] [place] [address] Bilirubin Ql (U) Negative Normal NEGATIVE [facility] Comment on above: Performed By: #### U A #### [facility] [address] [place] [address] Color (U) STRAW Normal STRAW,YELLOW [facility] Comment on above: Performed By: #### U A #### [facility] [address] [place] [address] Glucose Ql (U) >=500(3+) Abnormal NEGATIVE [facility] Comment on above: Performed By: #### U A #### [facility] [address] [place] [address] Hemoglobin Ql (U) SMALL(1+) Abnormal NEGATIVE [facility] Comment on above: Performed By: #### U A #### [facility] [id number] [place] [address] Ketones Ql (U) Negative Normal NEGATIVE [facility] Comment on above: Performed By: #### U A #### [facility] [id number] [place] [address] Leukocyte esterase Test strip Ql (U) TRACE Abnormal NEGATIVE [facility] Comment on above: Performed By: #### U A #### [facility] [id number] [place] [address] Nitrite Ql (U) Negative Normal NEGATIVE [facility] Comment on above: Performed By: #### U A #### [facility] [id number] [place] [address] pH (U) 6.0 [pH] Normal 5.0 - 8.0 [facility] Comment on above: Performed By: #### U A #### [facility] [id number] [place] [address] Protein Ql (U) 100(2+) Abnormal NEGATIVE [facility] Comment on above: Performed By: #### U A #### [facility] [address] [place] [address] Specific gravity (U) [Rel density] 1.025 Normal 1.005 - 1.035 [facility] Comment on above: Performed By: #### U A #### [facility] [address] [place] [address] Urobilinogen (U) [Mass/Vol] mg/dL Normal 0.0 - 1.9 [facility] Comment on above: Performed By: #### U A #### [facility] [address] [place] [address] Vital Signs Date Time Vital Sign Value Performing Clinician Facility 04-02-2024 15:13-0500 Diastolic blood pressure 69 mm[Hg] Bong Furlong DO Work Phone: [facility] 04-02-2024 15:13-0500 Systolic blood pressure 137 mm[Hg] Bong Furlong DO Work Phone: [facility] 03-26-2024 14:55-0500 Body temperature 97.39 [degF] Bong Furlong DO Work Phone: [facility] 03-26-2024 14:55-0500 Body weight 112.04 kg Bong Furlong DO Work Phone: [facility] 03-26-2024 14:55-0500 Diastolic blood pressure 85 mm[Hg] Bong Furlong DO Work Phone: [facility] 03-26-2024 14:55-0500 Heart rate 64 /min Bong Furlong DO Work Phone: [facility] 03-26-2024 14:55-0500 Respiratory rate 18 /min Bong Furlong DO Work Phone: [facility] 03-26-2024 14:55-0500 SaO2% (BldA) [Mass fraction] 96 % Bong Furlong DO Work Phone: [facility] 03-26-2024 14:55-0500 Systolic blood pressure 136 mm[Hg] Bong Furlong DO Work Phone: [facility] 02-24-2024 21:56-0500 Diastolic blood pressure 108 mm[Hg] Bong Furlong DO Work Phone: [facility] 02-24-2024 21:56-0500 Systolic blood pressure 171 mm[Hg] Bong Furlong DO Work Phone: [facility] [employer] [facility] 02-20-2024 11:41-0500 Body temperature 96.6 [degF] Bong Furlong DO Work Phone: [facility] 02-20-2024 11:41-0500 Body weight 111.22 kg Bong Furlong DO Work Phone: [facility] [employer] [facility] 02-20-2024 11:41-0500 Diastolic blood pressure 69 mm[Hg] Bong Furlong DO Work Phone: [facility] 02-20-2024 11:41-0500 Heart rate 60 /min Bong Furlong DO Work Phone: [facility] 02-20-2024 11:41-0500 Respiratory rate 18 /min Bong Furlong DO Work Phone: [facility] 02-20-2024 11:41-0500 SaO2% (BldA) [Mass fraction] 99 % Bong Furlong DO Work Phone: [facility] 02-20-2024 11:41-0500 Systolic blood pressure 131 mm[Hg] Bong Furlong DO Work Phone: [facility] 02-06-2024 20:57-0500 Body temperature 97.39 [degF] Bong Furlong DO Work Phone: [facility] 02-06-2024 20:57-0500 Body weight 111.13 kg Bong Furlong DO Work Phone: [facility] 02-06-2024 20:57-0500 Diastolic blood pressure 60 mm[Hg] Bong Furlong DO Work Phone: [facility] 02-06-2024 20:57-0500 Heart rate 65 /min Bong Furlong DO Work Phone: [facility] 02-06-2024 20:57-0500 Respiratory rate 17 /min Bong Furlong DO Work Phone: [facility] 02-06-2024 20:57-0500 SaO2% (BldA) [Mass fraction] 97 % Bong Acosta DO Work Phone: [facility] 02-06-2024 20:57-0500 Systolic blood pressure 165 mm[Hg] Bong Acosta DO Work Phone: [facility] 01-29-2024 13:02-0500 Body height 172.7 cm Perla Aguila [employer] Work Phone: [facility] 01-29-2024 13:02-0500 Body mass index (BMI) [Ratio] 37.71 kg/m2 Perla Aguila [employer] Work Phone: [facility] 01-29-2024 13:02-0500 Body temperature 97.81 [degF] Perla Aguila [employer] Work Phone: [facility] 01-29-2024 13:02-0500 Body weight 112.49 kg Perla Aguila [employer] Work Phone: [facility] 01-29-2024 13:02-0500 Diastolic blood pressure 70 mm[Hg] Perla Aguila [employer] Work Phone: [facility] 01-29-2024 13:02-0500 Heart rate 74 /min Perla Aguila [employer] Work Phone: [facility] 01-29-2024 13:02-0500 SaO2% (BldA) [Mass fraction] 95 % Perla Aguila [employer] Work Phone: [facility] 01-29-2024 13:02-0500 Systolic blood pressure 128 mm[Hg] Perla Aguila [employer] Work Phone: [facility] 01-08-2024 14:17-0400 Body height 172.7 cm Darcy Sandoval [employer] Work Phone: [facility] 01-08-2024 14:17-0400 Body mass index (BMI) [Ratio] 37.56 kg/m2 Darcy Sandoval [employer] Work Phone: [facility] 01-08-2024 14:17-0400 Body weight 112.04 kg Darcy Lori [employer] Work Phone: [facility] 01-08-2024 14:17-0400 Diastolic blood pressure 84 mm[Hg] Darcy Lori [employer] Work Phone: [facility] 01-08-2024 14:17-0400 Heart rate 92 /min Darcy Lori [employer] Work Phone: [facility] 01-08-2024 14:17-0400 SaO2% (BldA) [Mass fraction] 98 % Darcy Lori [employer] Work Phone: [facility] 01-08-2024 14:17-0400 Systolic blood pressure 124 mm[Hg] Darcy Vallejo [employer] Work Phone: [facility] 12-25-2023 14:28-0400 Body height 172.7 cm Darcy Lori [employer] Work Phone: [facility] 12-25-2023 14:28-0400 Body mass index (BMI) [Ratio] 38.32 kg/m2 Darcy Lori [employer] Work Phone: [facility] 12-25-2023 [id number] Body weight 114.31 kg Darcy Vallejo [employer] Work Phone: [facility] 12-25-2023 14:28-0400 Diastolic blood pressure 68 mm[Hg] Darcy Lori [employer] Work Phone: [facility] 12-25-2023 14:28-0400 Heart rate 88 /min Darcy Lori [employer] Work Phone: [facility] 12-25-2023 14:28-0400 SaO2% (BldA) [Mass fraction] 97 % Darcy Vallejo [employer] Work Phone: [facility] 12-25-2023 14:28-0400 Systolic blood pressure 128 mm[Hg] Darcy Vallejo [employer] Work Phone: [facility] 11-13-2023 14:18-0400 Body mass index (BMI) [Ratio] 41.17 kg/m2 Darcy Vallejo [employer] Work Phone: [facility] 11-13-2023 14:18-0400 Body weight 122.83 kg Darcy Sandoval [employer] Work Phone: [facility] 11-13-2023 14:18-0400 Diastolic blood pressure 75 mm[Hg] Darcy Sandoval [employer] Work Phone: [facility] 11-13-2023 14:18-0400 Heart rate 59 /min Darcy Sandoval [employer] Work Phone: [facility] 11-13-2023 14:18-0400 SaO2% (BldA) [Mass fraction] 98 % Darcy Sandoval [employer] Work Phone: [facility] 11-13-2023 14:18-0400 Systolic blood pressure 125 mm[Hg] Darcy Sandoval [employer] Work Phone: [facility] 09-16-2022 14:48-0400 Blood Pressure Location Umer VALENCIA [facility] 09-16-2022 14:48-0400 Diastolic blood pressure 74 mm[Hg] Umertatum VALENCIA [facility] [...] 16 /min [facility]ENC[facility] 09-03-2021 13:39-0400 Systolic blood pressure 102 mm[Hg] [facility]ENCIA [facility] En[facility] Date Encounter Type Care Provider Facility Start: 04-02-2024 End: 04-02-2024 ambulatory Bong Acosta DO Work Phone: [facility] Comment on above: Hypertension associa dustin with 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 (CMS-HCC) (Primary Dx); Dementia without behavioral disturbance, psychotic [...] Telephone encounter Tommy Gabriel DPM Work Phone: [facility] Start: 02-24-2024 End: 02-29-2024 ambulatory Bong [...] anxiety, unspecified dementia severity, unspecified dementia type ([facility]-H[facility]) (Primary Dx); Falls, subsequent encounter; Hypertension associated with 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 ([facility]-HCC); Back pain, unspecified back location, unspecified back pain laterality, unspecified chronicity Start: 02-10-2024 End: 02-10-2024 ambulatory Marianela X Orzech Facility:[facility] Start: 02-10-2024 End: 02-10-2024 Patient encounter procedure Marianela X Cutefundbrittney [facility] Start: 02-06-2024 End: 02-15-2024 ambulatory [facility]osta DO [facility] Comment on above: Pneumonia due to inf ectious organism, unspecified laterality, unspecified part of lung (Primary Dx); Cellulitis of left lower extremity; Falls, subsequent encounter; Dementia without behavioral disturbance, psychotic disturbance, mood disturbance, or anxiety, unspecified dementia severity, unspecified dementia type ([facility]); Depression, unspecified depression type; Essential hypertension; Type 2 diabetes mellitus without complication, without long-term current use of insulin ([facility]) Start: 02-01-2024 End: 02-03-2024 Clinisync Result Encounter Generic External Data Provider [facility] External Department Unsolicited Start: 02-01-2024 End: 02-03-2024 Clinisync Result Encounter Generic External Data Provider [facility] External Department Unsolicited Start: 01-29-2024 End: 01-29-2024 Italia Aguila [employer] Work Phone: [facility] Start: 01-29-2024 End: 01-29-2024 Italia Joseph C Aguila [employer] Work Phone: [facility] Start: 01-29-2024 End: 01-29-2024 ambulatory PERLA AGUILA Not Available Start: 01-29-2024 End: 01-29-2024 Office outpatient visit 25 minutes Perla Aguila [employer] Work Phone: [facility] Comment on [...] 01-08-2024 End: 01-08-2024 Bamboo flowsheet Darcy Sandoval [employer] Work Phone: [facility] Start: 01-08-2024 End: 01-08-2024 Bamboo flowsheet Darcy Sandoval [employer] Work Phone: [facility] Start: 01-08-2024 End: 01-08-2024 Office outpatient visit 25 minutes Darcy Sandoval [employer] Work Phone: [facility] Comment on above: Edema, unspecified t ype (Primary Dx); Altered mental status, unspecified altered mental status type Start: 12-25-2023 End: 12-25-2023 Office outpatient visit 25 minutes Darcy Sandoval [employer] Work Phone: [facility] Comment on above: Localized edema (Leslee jazmine Dx); Acute cough Start: 12-25-2023 End: 12-25-2023 ambulatory DARCY SANDOVAL Not Available Start: 12-25-2023 End: 12-25-2023 Bamboo flowsheet Darcy Sandoval [employer] Work Phone: [facility] Start: 12-25-2023 End: 12-25-2023 Bamboo flowsheet Darcy Sandoval [employer] Work Phone: [facility] Start: 12-05-2023 End: 12-05-2023 Clinisync Result Encounter Darcy Sandoval [employer] Work Phone: [facility] External Department Unsolicited Start: 12-05-2023 End: 12-05-2023 Clinisync Result Encounter Darcy Sandoval [employer] Work Phone: [facility] External [facility] Unsolicited Start: 12-05-2023 End: 12-05-2023 ambulatory [facility]ERVELY [facility] Start: 12-05-2023 End: 12-05-2023 Subsequent hospital visit by physician Michelle Deleon MD Work Phone: [facility] Start: 11-30-2023 End: 11-30-2023 Clinisync Result Encounter Rene Anthony MD Work Phone: [facility] External [facility] Unsolicited Start: 11-30-2023 End: 11-30-2023 Clinisync Result Encounter Rene Anthony MD Work Phone: [facility] External [facility] Unsolicited Start: 11-30-2023 End: 11-30-2023 ambulatory RENE ANTHONY [facility] Start: 11-30-2023 End: 11-30-2023 Subsequent hospital visit by physician Michelle Deleon MD Work Phone: [facility] Start: 11-28-2023 End: 11-28-2023 [facility] Start[facility] 11-21-2023 Evaluation and manag [facility]ment of inpatient [facility] Start: 11-18-2023 Evaluation and manag ement of inpatient [facility] Start: 11-17-2023 Evaluation and manag ement of inpatient [facility] Start: 11-15-2023 Evaluation and manag ement of inpatient [facility] Start: 11-15-2023 Evaluation and manag ement of inpatient [facility] Start: 11-15-2023 Evaluation and manag ement of inpatient ANUEL LO [facility] Start: 11-15-2023 Evaluation and manag ement of inpatient GILES ALTMAN [facility] Start: 11-15-2023 End: 11-15-2023 ambulatory UNKNOWN PROVIDER Facility:[facility] Start: 11-15-2023 End: 11-22-2023 Evaluation and management of inpatient CHAKA LAINEZ [facility] Start: 11-13-2023 End: 11-13-2023 Office outpatient visit 25 minutes Darcy Sandoval [employer] Work Phone: [facility] Comment on above: Bilateral lower extr emity edema (Primary Dx); Type 2 diabetes mellitus with diabetic nephropathy, without long-term current use of insulin ([facility] [facility] Hypokalemia Start: 11-13-2023 End: 11-13-2023 ambulatory DARCY SANDOVAL Not Available Start: 11-13-2023 End: 11-13-2023 Bamboo flowsheet Darcy Sandoval [employer] Work Phone: [facility] Start: 11-13-2023 End: 11-13-2023 Bamboo flowsheet Darcy Sandoval [employer] Work Phone: [facility] Start: 11-11-2023 End: 11-11-2023 ambulatory Marianela X Orzech [facility] Start: 11-11-2023 End: 11-11-2023 Patient encounter procedure Marianela X Orzech [facility] Start: 10-23-2023 End: 10-23-2023 ambulatory DARCY SANDOVAL Not Available Start: 10-14-2023 End: 10-14-2023 ambulatory Marianela X Orzech Facility:[facility] Start: 10-14-2023 End: 10-14-2023 Patient encounter procedure Marianela X Orzech [facility] Start: 10-09-2023 End: 10-09-2023 ambulatory TOMMY GABRIEL Not Available Start: 08-01-2023 End: 08-01-2023 ambulatory JUAN PABLO ALANIZ Not Available Start: 06-19-2023 End: 06-19-2023 ambulatory JUAN PABLO ALANIZ Not Available Start: 05-13-2023 End: 05-13-2023 ambulatory CAIT DUNHAM Facility:[facility] Start: 05-13-2023 End: 05-13-2023 Patient encounter procedure ACIT DUNHAM [facility] Start: 04-23-2023 End: 04-23-2023 ambulatory JUAN PABLO ALANIZ Not Available Start: 03-26-2023 End: 03-26-2023 ambulatory JUAN PABLO ALANIZ Not Available Start: 02-27-2023 End: 02-27-2023 ambulatory DARCY SANDOVAL Not Available Start: 09-16-2022 End: 09-16-2022 Patient encounter procedure Umer VALENCIA [facility] Start: 07-26-2022 End: 07-27-2022 ambulatory [...] Patient encounter procedure Umer VALENCIA [facility] Start: 04-04-2022 ambulatory SHELLIE ROJAS . Facility:[facility] Start: 03-08-2022 End: 03-08-[address] JUAN PABLO ALANIZ Facility:[facility] Start: 03-04-2022 Encounter for preprocedural cardiovascular examination DR VINH HOLCOMB . [facility] Start: 03-04-2022 Encounter for preprocedural laboratory examination DR VINH HOLCOMB . [facility] Start: 03-03-2022 End: 03-03-[address] JUAN PABLO ALANIZ Facility:[facility] Start: 03-02-2022 Encounter for preprocedural cardiovascular examination DR VINH HOLCOMB . [facility] Start: 02-26-[address] VINH HOLCOMB [...] Facility:[facility] Start: 09-19-2021 End: 09-20-2021 ambulatory MANDIE DIAZDURGA Facility:[facility] Start: 09-15-2021 End: 09-16-[address] SPARKLE NELSON Facility:[facility] Start: 09-03-2021 End: 09-03-2021 Patient encounter procedure Umer VALNECIA [facility] Start: [...] Start: 12-05-2023 ALL BASIC METABOLIC PANEL Darcy Duarte ly [employer] Work Phone: Start: 12-05-2023 Basic metabolic panel calcium total Ronald Sandoval MECHANIC CHIEF - TRANSACTION PROCESSOR Work Phone: Start: 11-30-2023 ALL URINALYSIS Rene Anthony MD Work Phone: Start: 11-30-2023 Urnls dip stick/tablet rgnt auto w/o microscopy Rene Anthony MD Work Phone: Start: 11-13-2023 Hemoglobin glycosylated a1c Darcy smiley [employer] Work Phone: Esophagogastroduodenoscopy Goldie VALENCIA Plan of Treatment Date Care Activity Detail Author Start: 01-07-2025 Urine screening for protein Diabetes: Urine Protein Screening [facility] Start: 12-04-2024 Urine screening for protein Diabetes: Urine Protein Screening [facility] Start: 11-21-2024 Urine screening for protein Diabetes: Urine Protein Screening [facility] Start: 10-22-2024 Urine screening for protein Diabetes: Urine Protein Screening [facility] Start: 03-04-2024 End: 03-04-2024 Patient encounter procedure 03/04/2024 3:50 PM EST Procedure Visit [facility] [address] [address] [place] [id number] Tommy Gabriel, DPM [address] [facility] [address] [place] [address] [facility] Start: 02-17-2024 Hemoglobin A1c measurement Diabetes: Hemoglobin A1C [facility] Start: 02-13-2024 Hemoglobin A1c measurement Diabetes: Hemoglobin A1C [facility] Start: 01-29-2024 End: 01-28-2025 Basic metabolic 1997 panel - Serum or Plasma Basic metabolic panel Lab Routine Localized edema Acute cough Expected: 01/29/2024 (Approximate), Expires: 01/28/2025 [facility] Work Phone: Comment on above: Expected: 01/29/2024 (Approximate), Expires: 01/28/2025 Start: 01-29-2024 End: 01-28-2025 Natriuretic peptide B [Mass/volume] in Blood B-type natriuretic peptide Lab Routine Localized edema Acute cough Expected: 01/29/2024 (Approximate), Expires: 01/28/2025 [facility] Comment on above: Expected: 01/29/2024 (Approximate), Expires: 01/28/2025 Start: 01-29-2024 End: 01-29-2024 Patient encounter procedure [facility] Start: 01-08-2024 End: 01-07-2025 Basic metabolic 1997 panel - Serum or Plasma Basic metabolic panel Lab Routine Edema, unspecified type Expected: 01/08/2024 (Approximate), Expires: 01/07/2025 [facility] Work Phone: Comment on above: Expected: 01/08/2024 [...] [address] [place] [address] Darcy Sandoval NP [address] [place] [address] [facility] Start: 12-25-2023 End: 12-25-2023 Patient encounter procedure [facility] Comment on above: Arrived Start: 11-23-2023 COVID-19 Vaccine () COVID-19 Vaccine () [facility] Start: 11-23-2023 Influenza vaccination [facility] Start: 11-13-2023 End: 11-13-2023 Patient encounter procedure 11/13/2023 2:30 PM EDT Office Visit [facility] [address] [place] [address] Darcy Sandoval NP [address] [place] [address] Arrived [facility] Comment on above: Arrived Start: 11-13-2023 End: 11-12-2024 Natriuretic peptide B [Mass/volume] in Blood B-type natriuretic peptide Lab Routine Bilateral lower extremity edema Expected: 11/13/2023 (Approximate), Expires: 11/12/2024 [facility] Work Phone: Comment on above: Expected: 11/13/2023 (Approximate), Expires: 11/12/2024 Start: 10-23-2023 Influenza vaccination Flu vaccine (# 1) [facility] Start: 06-25-2023 Hemoglobin A1c measurement Diabetes: Hemoglobin A1C [facility] Start: 03-24-2023 Annual Wellness Visi t (Medicare Advantage) Annual Wellness Visit (Medicare Advantage) [facility] Start: 03-08-2023 Urine screening for protein Diabetes: Urine Protein Screening [facility] Start: 08-22-2022 ambulatory Ambulatory Facility:[facility] 1 Start: 08-06-2019 Pneumococcal 65+ yea rs Vaccine (2 of 2 - PCV) Pneumococcal 65+ years Vaccine (2 of 2 - PCV) [facility] Start: 08-06-2019 Pneumococcal Vaccine : 65+ Years (2 of 2 - PCV) Pneumococcal Vaccine: 65+ Years (2 of 2 - PCV) [facility] Start: 2003 Fall Risk Screening Fall Risk Screen [facility] Start: 1998 Respiratory Syncytia l Virus (RSV) or age 60 yrs+ (1 - 1-dose 60+ series) Respiratory Syncytial Virus (RSV) or age 60 yrs+ (1 - 1-dose 60+ series) [facility] Start: 1988 Administration of varicella zoster vaccine Zoster (Shingles) Vaccine (1 of 2) [facility] Start: 1988 Shingles vaccine (1 of 2) [place] gles vaccine (1 of 2) [facility] Start: 1957 DTaP,Tdap and Td Vac cines (1 - Tdap) DTaP,Tdap and Td Vaccines (1 - Tdap) [facility] Start: 1957 DTaP/Tdap/Td vaccine (1 - Tdap) DTaP/Tdap/Td vaccine (1 - Tdap) [facility] Start: 1950 Depression Screen Depression Screen [facility] Start: 1950 Depression Screening Depression Scre ening [facility] Start: 1950 Tobacco Screening Tobacco Screening [facility] Start: 1948 Glaucoma screening Diabetes: R etinopathy Screening [facility] Start: 1948 Lipid panel Lipids [facility] BLOOD CULTURE 1 BLOOD CULTURE 1 Lab Routine 01/22/2024 3:15 PM EDT [facility] BLOOD CULTURE 2 BLOOD CULTURE 2 Lab Routine 01/22/2024 3:19 PM EDT [facility] End: 11-30-2023 Culture, Urine [facility] Work Phone: Comment on above: Once for 1 Occurrenc es starting 11/30/2023 until 11/30/2023 Immunizations Immunization Date Immunization Notes Care Provider Walt peck 01-13-2023 influenza virus vacc ine, unspecified formulation Marianela Ingram [facility] 01-13-2023 Influenza, High-dose Seasonal, Quadrivalent, Preservative Free Darcy Lori [employer] Work Phone: [facility] 02-22-2022 influenza virus vacc ine, unspecified formulation Umer VALENCIA [facility] 02-22-2022 influenza, high dose seasonal, preservative-free Darcy Lori [employer] Work Phone: [facility] 12-21-2020 SARS-CoV-2 (COVID-19 ) mRNA BNT-162b2 vax Umer VALENCIA [facility] 11-30-2020 SARS-CoV-2 (COVID-19 ) mRNA BNT-162l1 vax Umer VALENCIA [facility] 01-24-2020 influenza virus vacc ine, unspecified formulation Umer VALENCIA [facility] 01-24-2020 influenza, high dose seasonal, preservative-free Darcy Vallejo [employer] Work Phone: [facility] 03-04-2019 influenza virus vacc ine, unspecified formulation Umer VALENCIA [facility] 03-04-2019 influenza, high dose seasonal, preservative-free Darcy Vallejo [employer] Work Phone: [facility] 08-05-2018 pneumococcal polysaccharide vaccine, 23 valent Umer VALENCIA [facility] 12-18-2016 influenza virus vacc ine, unspecified formulation Umertatum VALENCIA [facility] 12-18-2016 influenza, high dose seasonal, preservative-free Darcy Vallejo INST[employer] Work Phone: [facility] 12-06-2015 influenza virus vacc ine, unspecified formulation Umer VALENCIA [facility] 12-06-2015 influenza, high dose seasonal, preservative-free Darcy Lori INST[employer] Work Phone: [facility] 12-21-2014 influenza virus vacc ine, unspecified formulation Umertatum VALENCIA [facility] 12-21-2014 influenza, high dose seasonal, preservative-free Darcy Lori INST[employer] Work Phone: [facility] Payers Date Payer Category Payer Medicare [facility] [id number] 2021-Present [id number] 2021 Medicare (Managed Care) [facility] Member Subscriber Plan / Payer (Effective 2021-Present) Name: Nat Moore Relation to Subscriber: Self Name: Nat Moore Payer ID: Not on file Group ID: [id number] Type: Not on file Address: [address] [place] [id number] 1959 Unknown [id number] 1959 Unknown [id number] 1938 Unknown [id number] 2.16.840.1.455244.3.579.2 .593 1938 Unknown [id number] 2.16.840.1.630800.3.579.2 .593 1938 Unknown [id number] 2.16.840.1.244504.3.579.2 .593 1938 Unknown [id number] 2.16.840.1.341228.3.579.2 .593 1938 Unknown [id number] 2.16.840.1.216230.3.579.2 .593 1938 Unknown [id number] 2.16.840.1.212449.3.579.2 .593 1938 Unknown [id number] 2.16.840.1.010721.3.579.2 .593 1938 Unknown [id number] 2.16.840.1.292085.3.579.2 .593 1938 Unknown [id number] 2.16.840.1.601122.3.579.2 .593 1938 Unknown [id number] 2.16.840.1.889079.3.579.2 .593 1938 Unknown [id number] 2.16.840.1.274899.3.579.2 .593 1938 Unknown [id number] 2.16.840.1.547116.3.579.2 .593 1938 Unknown [id number] 2.16.840.1.664066.3.579.2 .593 1938 Unknown [id number] 2.16.840.1.749639.3.579.2 .593 1938 Unknown [id number] 2.16.840.1.375381.3.579.2 .593 1938 Unknown [id number] 2.16.840.1.206229.3.579.2 .593 1938 Unknown [id number] 2.16.840.1.943656.3.579.2 .593 1938 Unknown [id number] 2.16.840.1.306752.3.579.2 .593 1938 Unknown [id number] 2.16.840.1.343508.3.579.2 .593 1938 Unknown [id number] 2.16.840.1.347727.3.579.2 .593 1938 Unknown [id number] 2.16.840.1.991601.3.579.2 .593 1938 Unknown [id number] 2.16.840.1.888489.3.579.2 .593 1938 Unknown [id number] 2.16.840.1.118294.3.579.2 .593 1938 Unknown [id number] 2.16.840.1.177347.3.579.2 .593 1938 Unknown [id number] 2.16.840.1.389338.3.579.2 .732 1938 Unknown [id number] 2.16.840.1.982148.3.579.2 .173 1938 Unknown [id number] 2.16.840.1.722907.3.579.2 .1259 1938 Unknown [id number] 2.16.840.1.909228.3.579.2 .1259 1938 Unknown [id number] 2.16.840.1.118476.3.579.2 .1259 1938 Unknown [id number] 2.16.840.1.031873.3.579.2 .1259 1938 Unknown [id number] 2.16.840.1.991378.3.579.2 .1259 1938 Unknown [id number] 2.16.840.1.366759.3.579.2 .1259 1938 Unknown [id number] 2.16.840.1.633921.3.579.2 .1259 1938 Unknown [id number] 2.16.840.1.562019.3.579.2 .1259 1938 Unknown [id number] 2.16.840.1.641341.3.579.2 .1259 1938 Unknown [id number] 2.16.840.1.734947.3.579.2 .125 1938 Unknown [id number] 2.16.840.1.435402.3.579.2 .1259 1938 Unknown [id number] 2.16.840.1.599379.3.579.2 .727 1938 Unknown [id number] 2.16.840.1.624508.3.579.2 .727 1938 Unknown [id number] 2.16.840.1.995702.3.579.2 .727 1938 Unknown [id number] 2.16.840.1.978488.3.579.2 .727 Social History Date Type Detail Facility Start: 09-03-2021 Tobacco smoking status Ex-smoker (fi nding) [facility] Start: 07-12-2012 End: 12-11-2023 Sex Assigned At Male [facility] Start: 04-26-2022 End: 11-14-2022 Tobacco smoking status Never smoked tobacco (finding) [facility] Tobacco smoking status Never [facility] Start: 11-14-2022 Tobacco use and exposure Smokeless tobacco non-user [facility] Start: 11-13-2023 End: 02-10-2024 Alcoholic beverage intake Ex-drinker (finding) [facility] Start: 07-12-2012 End: 12-11-2023 History of Social function [facility] [...] at Not on file [facility] Start: 11-28-2023 Tobacco smoking stat [facility] Tobacco smoking consumption unknown [facility] Start: 10-25-2014 Sex Male (finding) [facility] Functional Status Date Assessment Result Facility 11-11-2023 Functional Status N/A [facility] 09-16-2022 Functional Status N/A [facility] 04-26-2022 Functional Status N/A [facility] 12-03-2021 Functional Status N/A [facility] 09-03-2021 Functional Status N/A [facility] Clinical Notes 09-03-2021 to 04-02-2024 Bong Acosta, DO - 04/02/2024 3:13 PM Quique Acosta, DO - 03/26/2024 2:55 PM EST Note Date & Type Note Facility 04-02-2024 History of Present illness Narrative Patient Name: Nat Moore Date of : 1940 Date of Service: 04/02/2024 Facility: [facility] Type of Visit: Acute Visit Subjective Nat Moore is a 83 y.o. male seen today at assisted facility for abnormal labs and problem visit. 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 Dementia without behavioral disturbance, psychotic disturbance, mood disturbance, or anxiety, unspecified dementia severity, unspecified dementia type ([facility]) 3. Benign prostatic hyperplasia with lower urinary [...] in 3 months. ELECTRONICALLY SIGNED BY: Bong Acosta DO documented in this encounter [facility] 03-26-2024 History of Present illness Narrative Patient Name: Nat Moore Date of : 1940 Date of Service: 03/26/2024 Facility: [facility] Type of Visit: Subsequent Visit Subjective Nat Moore is a 83 y.o. male seen today at assisted facility for monthly visit. No new problems reported by staff or patient. He had labs done that were ordered by psychiatric aide instructor. 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 Hypernatremia 3. Other hyperlipidemia 4. Hypokalemia Check A1c and BMP. Psych managing psych meds. May need further evaluation for hypernatremia. He is currently on glipizide, a sulfonylurea, and should probably be on SGLT-2 med for CKD with Type 2 diabetes but will check A1c first. All medications reviewed and are medically necessary. 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 ([facility])- Primary Hypernatremia Hyperosmolality and/or hypernatremia Other hyperlipidemia Hypokalemia Hypopotassemia documented in this encounter [facility]12-19-2024 Telephone encounter Note* Telephone Encounter - Cait Espinal - 03/11/2024 1:33 PM EST PT WAS A NO SHOW, DAUGHTER CALLED BACK, HE IS IN INTERMEDIATE [id number] Miscellaneous Notes* Telephone Encounter - Cait Espinal - 03/11/2024 1:33 PM EST PT WAS A NO SHOW, DAUGHTER CALLED BACK, HE IS IN INTERMEDIATE * Telephone Encounter - Cait Espinal - 03/04/2024 4:05 PM EST Patient was a no show lvm to r/s documented in this encounterH[facility] [id number] Telephone encounter Note* Telephone Encounter - Cait Espinal - 03/04/2024 4:05 PM EST Patient was a no show lvm to r/s [facility] [id number] History of Present illness Narrative* Bong Acosta, DO - 02/24/2024 11:59 PM EST Patient Name: Nat Moore Date of : 1940 Date of Service: 02/24/2024 Facility: [facility] Type of Visit: Skilled Visit Subjective Nat Moore is a 83 y.o. male seen today at assisted facility for skilled visit. No new problems reported by staff or patient. He is participating in therapy but cannot tell me what he is doing. Allergies: Penicillins Code Status: FULL CODE BP (!) 171/108 Physical Exam Vitals reviewed. Exam conducted with a hob machine operator present (Dayo Abad MS III). Constitutional: General: He is not [...] anxiety, unspecified dementia severity, unspecified dementia type ([facility]) 2. 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 Falls, subsequent encounter His blood pressure is elevated today but it had been good previously so we will continue current regimen. Continue therapy to reach maximum improvement. All medications reviewed and are medically necessary. ELECTRONICALLY SIGNED BY: Bong Acosta DO [facility] History of Present illness Narrative* Bong Acosta DO - 02/20/2024 11:37 AM EST Patient Name: Nat Moore Date of : 1940 Date of Service: 02/20/2024 Facility: [facility] Type of Visit: Admission H&P Subjective Nat Moore is a 83 y.o. male seen today at assisted facility for admission. Hi presents back to [facility] from [facility] where he was admitted for dementia. [...] anxiety, unspecified dementia severity, unspecified dementia type ([facility]) 2. Falls, subsequent encounter 3. 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 Back pain, unspecified back location, unspecified back pain laterality, unspecified chronicity Admit to [facility]. Therapy evaluation and treat to try to regain independence. He has dementia and we will see if he is able to go back home. He needs to be able to do ADLs if not going to be home and right now I don't think he can. He needs supervision. Continue home medications. Full code. ELECTRONICALLY SIGNED BY: Bong Acosta DO [facility] TroyAdreima [id number] History of Present illness Narrative* Bong Acosta DO - 02/06/2024 11:59 PM EST Patient Name: Nat Moore Date of : 1940 Date of Service: 02/06/2024 Facility: [facility] Type of Visit: Admission H&P Subjective Nat Moore is a 83 y.o. male seen today at assisted facility for No chief complaint onfile. . Patient presents to [facility] for therapies following hospitalization for pneumonia and [...] Exam Vitals reviewed. Exam conducted with a hob machine operator present (, daughter and Dayo [facility] MS III). Cardiovascular: Rate and Rhythm: Normal rate and regular rhythm. Heart sounds: Normal heart sounds. Pulmonary: Effort: Pulmonary effort is normal. No respiratory distress. Breath sounds: Wheezing (end-expiratory) present. No rales. Musculoskeletal: Right lower le+ Pitting Edema present. Left lower le+ Pitting Edema present. Neurological: Mental Status: He is alert. He is disoriented. Comments: A&O x 1-person only. Thought it was 192 Psychiatric: Attention and Perception: Attention normal. Mood [...] anxiety, unspecified dementia severity, unspecified dementia type ([facility]) 5. Depression, unspecified depression type 6. Essential hypertension 7. Type 2 diabetes mellitus without complication, without long-term current use of insulin ([facility]) Plan: Admit to [facility]. Therapy evaluation. Continue current regimen. Full code. Plan to go home when able to. ELECTRONICALLY SIGNED BY: Bong Acosta DO documented in this [facility] History of Present illness Narrative* Fe Rojo LPN - 01/29/2024 1:00 PM EST HPI Follow-up Additional comments: [facility] observation: admitted 01/22/24 dx: syncope,hypotension,dehydration discharged home 01/23/24 no med changes made Last edited by Fe Rojo LPN on 01/29/2024 1:07 PM. Subjective Patient ID: Nat Moore is a 83 y.o. male who presents for Follow-up ([facility] observation: admitted 01/22/24 dx: syncope,hypotension,dehydration discharged [...] MOUTH DAILY FOR DEPRESSION WITH 20MG TO [id number] TOTAL FLUoxetine (PROzac) 20 MG capsule TAKE [...] foot due to type 2 diabetes mellitus ([facility]) 09/04/2016 Past [...] improve. Melanie Boyle NP documented in this [facility]11-07-2024 Instructions* Patient Instructions* Melanie Boyle NP - 01/29/2024 1:00 PM EST Start azithromycin 500 mg daily x 5 days for sinus infection. Okay to take Coricidin HBP over the counter for cough/congestion symptoms Follow up to be determined based on lab results. documented in this [facility]10-17-2024 History of Present illness Narrative* Darcy Sandoval [...] MOUTH DAILY FOR DEPRESSION WITH 20MG TO [id number] TOTAL FLUoxetine (PROzac) 20 MG capsule TAKE [...] Past Medical History: Diagnosis Date Diabetes mellitus ([facility]) Diverticulosis History of being hospitalized 10/07/2023 Acute Metabolic Encephalopathy Hypertension ([facility]) Lung nodule Memory loss Neuropathy Renal cyst [...] No follow-ups on file. documented in this encounterHermann Area District [id number] History of Present illness Narrative* Darcy Sandoval NP - 12/25/2023 2:30 PM EDT Images from the original note were not included. Subjective Patient ID: Nat Moore is a 83 y.o. male who presents for Hospital Follow-up. [facility] 12/08/23 pt was put on new meds Pt is doing better and he has been coughing sleeping a lot Pt is having a lot of swelling in his lowers legs Current Outpatient Medications on File Prior to Visit Medication Sig Dispense Refill FLUoxetine (PROzac) 10 MG capsule TAKE ONE CAPSULE BY MOUTH DAILY FOR DEPRESSION WITH 20MG TO [id number] TOTAL hydrOXYzine HCl (Atarax) 25 MG tablet [...] Past Medical History: Diagnosis Date Diabetes mellitus ([facility]) Diverticulosis History of being hospitalized 10/07/2023 Acute Metabolic Encephalopathy Hypertension ([facility]) Lung nodule Memory loss Neuropathy 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 80% [...] initially admitted to the hospitalist service from [place] due to recurrent episodes of syncope secondary [...] his presenting complaints. During his stay in [place] ED he suddenly developed bradycardia prolonged sinus pause up to 18 seconds and became unresponsive. Code was activated and at the beginning of CPR he had regained his consciousness. He had another episode of sinus pause of about 12 seconds prior to transfer, however did not lose his consciousness at this time. On arrival to [facility] blood pressure was 158/72 mmHg, pulse rate 78 bpm, regular, SpO2 100% on room air, respiratory rate 20/min, temperature 97.2. 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 CT of the abdomen with contrast done at [place] ED showed nonobstructive bowel gas pattern with [...] significantly. Daily evaluated the patient on 11/21/2023. Harrells slip was removed and they deemed patient [...] Center 12/02/2023 2:20 PM Liu Henning MD [facility] Heart[facility]AS Your medication list START taking these medications Instructions Last Dose Given Next Dose Due amLODIPine 10 mg tablet Commonly known as: Norvasc Start taking on: November 23, 2023 Take 1 tablet (10 mg) by mouth in the morning. Do not start bef (more content not included)...[facility]08-31-2024 NotePhysical Therapy Name: Nat Moore Date of : 1940 Today's Date: 11/22/23 Pt is unable to be seen for therapy at this time secondary to pt to discharge @ 2:00 PM today. Check No Charge Time attempted: 1405UnPrem[facility]08-31-2024 NotePt originally set for 9am BLS transport to [facility] but per MD we will push back to 2pm transport due to high blood pressures. UPDATE 1:15PM- Per MD pt can still discharge today. Transport set for 2pm via [facility]. Assembled transfer packet and placed by chart. Sent final AVS and discharge orders via Careport. Notified RN and pt's is aware of transport time.[facility]08-30-2024 Note Attestation signed by Juan Pablo Liz [...] is for the patient to go to [facility] Discussed with the family that our strong [...] Discussed with Dr. Liz. Melva Recinos MD PGX1IfnastqaebPremier Health [facility]08-30-2024 Note Hospital Medicine Daily Progress Note - 11/21/2023 2:13 PM; Room: [address] [place] [address] Admission: 11/15/2023 2:42 PM; Length of stay: 6 days THE HOSPITALIST TEAM PREFERS TO USE [employer] CHAT FOR COMMUNICATION 7AM-7PM. IF I DO NOT RESPOND WITHIN 15 MINUTES, PLEASE PAGE ME/CALL THROUGH THE HEALTH EDUCATION COORDINATOR. 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 Harrells slip removed. No need for psych admission. [...] 2.1 CALCIUM mg/dL 8. (more content not included)...[facility]08-30-2024 NotePhysical Therapy Physical Therapy Treatment Patient Name: [...] a.m. Upon entry, pt in bed. This RECORDS OFFICER introduces herself and intention for session. Per [...] state President. Did state he was at [facility] .) Following Commands: Follows one [...] 2 is given. Gait belt is donned, INTERNIST is given on the right side and [...] to advance BLEs to EOB but uses RECORDS OFFICER's hand with his right hand to assist in raising upper body from bed. Bed Mobility 2 Bed Mobility From 2: Scooting Bed Mobility Type 2: To Bed Mobility to 2: (EOB in sitting) Level of Assistance 2: Minimum assistance Bed Mobility Comments 2: Pt uses RECORDS OFFICER's hand with his right hand to assist in scooting hips to EOB Transfers Transfer: Yes Transfer 1 Transfer From 1: Sit Transfer Type 1: To and from Transfer to 1: Stand Transfer Device 1: none (RECORDS OFFICER and aide on either side of pt) Transfer Level of Assistance 1: Minimum assistance, x2 Trials/Comments 1: Pt. instructed to (more content not included)...[facility]08-30-2024 Note Attestation signed by Juan Pablo Liz [...] Patient Name: Nat Moore MRN / CSN: [id number] Date of / Age: 2 1940 / [...] mild cognitive impairment originally presenting to the [facility] Emergency Room on 11/15/2023 for evaluation of recurrent episodes of syncope secondary to spontaneous prolonged sinus pause. The patient was transferred via air ambulance from the [facility]. 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 The patient reports being to his , Donna, and having 4 children. He reports he came from [place] where he lives, but was not able to describe why he came to hospital or where he is now. 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 Reported Behavior: Combative and agitated PRN Medications [...] mg, IV, every day Midazolam injection PRN (more content not included)...[facility]08-29-2024 Note11/20/23 1730 Referral Data Referral Source Physician [...] Support Systems Spouse/significant other Type of Residence correction facility Will patient need Precert for Post Acute needs? Yes Patient's goal for discharge would like the facility in [place] for rehab 1. [facility] 2. [place] [facility] 3. (if not accepted in [place]) she is ok with [facility]. Does the patient need discharge transport arranged? Yes NATALYA called patient to discuss consult for SNF placement for rehab. Patient is currently confused and not able to answer questions. NATALYA discussed network provider list. would like provider in [place] with [facility] as 1st choice. She would [place] [facility] as 2nd and she is ok if neither can accept for [facility] as 3rd choice. Referrals made as requested. Precert will be needed. NATALYA following.[facility]08-29-2024 Note Attestation signed by William Feldman MD [...] Moore Age - 83 y.[facility]. [facility] 1940 [id number] Date of Admission - 11/15/2023 2:42 PM HPI/Hospital Course Nat Moore is a an 83-year-old gentleman with PMH significant for type 2 diabetes mellitus, essential hypertension, hyperlipidemia, CKD stage IIIa, bilateral lower extremity edema on diuretic therapy, osteoarthritis, depression and mild cognitive impairment was initially admitted to the hospitalist service from [place] due to recurrent episodes of syncope secondary [...] his presenting complaints. During his stay in [place] ED he suddenly developed bradycardia prolonged sinus [...] of the abdomen with contrast done at [place] ED showed nonobstructive bowel gas pattern with [...] extremities, no focal deficit (more content not included)...[facility]08-28-2024 NoteSpeech Language Pathology Speech/Language Pathology Clinical Swallow [...] calcifications who presented via air ambulance from [facility] due to recurrent episodes of syncope secondary to spontaneous prolonged sinus pause. He had initially presented for worsening midsternal chest pain lower back pain located in his mid chest aching in nature, 6 out of 10 on intensity scale, nonradiating associated with SOB. During his stay at [place] he developed bradycardia prolonged sinus pause up [...] Crushed (in puree) Recommendations Duration of Treatment: 15UnPrem[facility]08-28-2024 Note Attestation signed by William Feldman MD [...] Moore Age - 83 y.o. - 1940 [id number] Date of Admission - 11/15/2023 2:42 PM HPI/Hospital Course Nat Moore is a an 83-year-old gentleman with PMH significant for type 2 diabetes mellitus, essential hypertension, hyperlipidemia, CKD stage IIIa, bilateral lower extremity edema on diuretic therapy, osteoarthritis, depression and mild cognitive impairment was initially admitted to the hospitalist service from [place] due to recurrent episodes of syncope secondary [...] his presenting complaints. During his stay in [place] ED he suddenly developed bradycardia prolonged sinus [...] of the abdomen with contrast done at [place] ED showed nonobstructive bowel gas pattern with [...] Lab Results CBC: Result (more content not included)...[facility] 11-19-2023 Note Attestation signed by Nora Rivera [...] calcifications who presented via air ambulance from [facility] due to recurrent episodes of syncope secondary to spontaneous prolonged sinus pause. He had initially presented for worsening midsternal chest pain lower back pain located in his mid chest aching in nature, 6 out of 10 on intensity scale, nonradiating associated with SOB. During his stay at [place] he developed bradycardia prolonged sinus pause up [...] NAD. Resting comfortably. Still in restraints. S/p [employer] DC-PPM yesterday, tolerated well. OBJECTIVE Objective [...] IV, , , Once (more content not included)...[facility]08-28-2024 Note11/19/23 1125 Admission Assessment Questions Verify insurance [...] Status Interested Does the patient have a wrapper caser assigned to them through their insurance? No Living Arrangement (Current/Prior to Hospitalization) Private residence (with ) Does the patient have history of HHC or SNF? No Assistive Device Cane Patient's goal for discharge likely snf Was patient reminded that goal for discharge is 11am? No Does the patient have transportation at discharge? No Type of Residence correction facility Is PT/OT appropriate? Yes Is PT/OT ordered? Yes Is SW consult appropriate? Yes Is SW consult ordered? Yes Do you understand the benefits of MyChart? No Were you able to send link and activate MyChart? NoUnPremier Health [facility]08-28-2024 NoteConsult rec'd for SNF. PT/OT recommend SNF. No family at bedside at this time. SW to try again later.[facility]08-28-2024 NotePhysical Therapy Physical Therapy Evaluation Patient Name: [...] Level of Function Prior Function Level of Hand: Independent with ADLs and functional transfers, Needs [...] though patient with difficul (more content not included)...[facility]08-28-2024 Note Occupational Therapy Occupational Therapy Evaluation Patient Name: Nat Moore : 1940 Today's Date: 11/19/2023 Time In: 941 Time Out: 1005 admitted to the hospitalist service from [place] due to recurrent episodes of syncope secondary [...] directions Memory: Decreased short term memory, Decreased terminologist memory, Decreased recall of precautions, Decreased recall of biographical information, Decreased recall of recent events Communication: (labored , dysarthic) General Assessment General Assessment Hearing: ([place], hearing aids not observed but has them per nsg) Hand Dominance: Right Home Living Home Living Type of Home: (patient unable to report consistantly) Prior Level of Function Prior Function Level of Hand: (reports indep and drives) Prior Functional Mobility: [...] cognition, Decreased endurance, Decreased functional mobility OT Assessment/MAORI PHYSIOTHERAPIST Summary: (needs skilled OT due to weakness [...] until discharge & PRN OT Discharge Recommendations: correction facility placement OT - Discharge Recommendations Placed: Yes OT Goals Multi-Disciplinary Problems (from Occupational Therapy) Active Problems Problem: Balance Start Date: 11/19/23 Goal Start Date Expected End Date End Date LTG - Patient will maintain stand balance to allow for safe mobility 11/19/23 12/17/23 -- Problem: Bathing Start Date: 11/19/23 Goal Start Date Expected End Date End Date LTG (more content not included)...[facility]08-27-2024 Note Attestation signed by William Feldman MD [...] Moore Age - 83 y.o. - 1940 N - [id number] [facility] # - [id number] Date of Admission - 11/15/2023 2:42 PM HPI/Hospital Course Nat Moore is a an 83-year-old gentleman with PMH significant for type 2 diabetes mellitus, essential hypertension, hyperlipidemia, CKD stage IIIa, bilateral lower extremity edema on diuretic therapy, osteoarthritis, depression and mild cognitive impairment was initially admitted to the hospitalist service from [place] due to recurrent episodes of syncope secondary [...] his presenting complaints. During his stay in [place] ED he suddenly developed bradycardia prolonged sinus [...] of the abdomen with contrast done at [place] ED showed nonobstructive bowel gas pattern with [...] 12.7* 11.9* 12.4* HE (more content not included)...[facility]08-27-2024 Note Attestation signed by Nora Rivera MD [...] calcifications who presented via air ambulance from [facility] due to recurrent episodes of syncope secondary to spontaneous prolonged sinus pause. He had initially presented for worsening midsternal chest pain lower back pain located in his mid chest aching in nature, 6 out of 10 on intensity scale, nonradiating associated with SOB. During his stay at [place] he developed bradycardia prolonged sinus pause up [...] NAD. Resting comfortably. Still in restraints. S/p [employer] DC-PPM this morning, tolerated well. OBJECTIVE [...] mL, 10 mL, intravenous, q8h PRN, Nils Villalbahi (more content not included)...[facility] 11-18-2023 NoteDUAL CHAMBER PACEMAKER IMPLANT PROCEDURE NOTE DATE OF PROCEDURE: 11/18/23 PERFORMING PHYSICIAN: Dr. Sam Oscar CONSENT: Patient LOCATION: EP Lab PROCEDURE PERFORMED: 1. Implantation of pacemaker ([employer]) 2. Ultrasound guided venous access INDICATIONS: [...] using modified seldinger technique using a 5 Frisian micro-puncture needle on two occasions and 0.35 [...] for the device above the muscle. 6 Frisian Safesheaths were placed over the wire. An active fixation [employer] pacing lead was then delivered through the 6Fsheath to the right ventricle. After confirmation of lead position on orthogonal views (WILKINSON and TAIWANESE) to confirm septal position, the screw was [...] was then removed. Then an active fixation [employer] lead was delivered through the 6Fsheath to the right atrial appendage. After confirmation of lead position on orthogonal views (WILKINSON and TAIWANESE), the screw was activated. Good sensing parameters, [...] for any concerns. Sam Oscar MD Cardiac ElectrophysiologyUnPremier Health [facility]08-26-2024 Note Attestation signed by Nora Rivera [...] calcifications who presented via air ambulance from [facility] due to recurrent episodes of syncope secondary to spontaneous prolonged sinus pause. He had initially presented for worsening midsternal chest pain lower back pain located in his mid chest aching in nature, 6 out of 10 on intensity scale, nonradiating associated with SOB. During his stay at [place] he developed bradycardia prolonged sinus pause up [...] mg, oral, Daily, [place] (more content not included)...[facility]08-26-2024 Note Attestation signed by William Feldman MD [...] initially admitted to the hospitalist service from [place] due to recurrent episodes of syncope secondary [...] his presenting complaints. During his stay in [place] ED he suddenly developed bradycardia prolonged sinus [...] of the abdomen with contrast done at [place] ED showed nonobstructive bowel gas pattern with [...] planning on taking the patient to the Geospatial Information Technologist tomorrow for possible transvenous pacemaker placement SUBJECTIVE [...] 24 hours) at 11/17/2023 (more content not included)...[facility]08-25-2024 NoteCardiovascular Laboratory Report FINAL IMPRESSIONS: Successful, percutaneous [...] left radial artery was obtained. A 6 Frisian glide sheath was inserted without difficulty. Difficulty [...] with a mid v (more content not included)...[facility]08-25-2024 Note Attestation signed by Salena Alcaraz MD [...] permanent pacemaker implantation tomorrow Salena Alcaraz MD, [facility] Cardiology Progress Note Subjective Subjective: Patient [...] QT Interval 390 QTC CALCULATION(BAZETT) 464 P [place] 71 R-[place] -60 T Wave [place] 49 Impression Sinus rhythm with 1st degree A-V block Left axis deviation Inferior infarct (cited on or before 21-JUL-2012) Cannot rule out Anterior infarct (cited on or before 15-NOV-2023) Abnormal ECG When compared with ECG of 15-NOV-2023 19:56, (unconfirmed) No significant change was found Lab Results Component Value Date TROPONINI 0.01 11/15/2023 Transthoracic echo (TTE) complete Result Date: 11/15/2023 1 1 [facility] Heart Station [address] [place] [address] [phone] (fax) Echocardiogram-[facility] Name: NAT MOORE Study Date: 11/15/2023 05:06 PM B/P: 158 mmHg/72 mmHg HR: Date of : 1940 Location: [facility] Height: 65 in. Age: 83 year(s) Patient [...] in sizeNo significant v (more content not included)...[facility]08-24-2024 Vern CONNOLLY was called on this patient after he sustained a 10 the second sinus pause and then a 7-second sinus pause. Patient with brief LOC. Patient with multiple episodes of nausea and vomiting. MICU fellow at bedside who states he will transfer patient to MICU for transcutaneous pacing.[facility]08-24-2024 NoteHospital Medicine History and Physical 11/15/2023 5:58 PM THE HOSPITALIST TEAM PREFERS TO USE [employer] CHAT FOR COMMUNICATION 7AM-7PM. IF I DO NOT RESPOND WITHIN 15 MINUTES, PLEASE PAGE ME/CALL THROUGH THE HEALTH EDUCATION COORDINATOR. FROM 7PM-7AM, PLEASE PAGE [phone](COVR) Chief Complaint No chief complaint on file. History of Present Illness Nat Moore is an 83 y.o. severely obese male with a medical history significant for type 2 diabetes mellitus, essential hypertension, hyperlipidemia, CKD stage IIIa, bilateral lower extremity edema on diuretic therapy, osteoarthritis, coronary calcifications, depression, mild cognitive impairment, who was transferred via air ambulance from the [facility] due to recurrent episodes of syncope secondary to spontaneous prolonged sinus pause. Patient states that he presented to the [place] ED due to worsening midsternal chest pain [...] his presenting complaints. During his stay in [place] ED he suddenly developed bradycardia prolonged sinus [...] of the abdomen with contrast done at [place] ED showed nonobstructive bowel gas pattern with [...] ulcers, no oral abnorma (more content not included)...[facility]08-22-2024 History of Present illness Narrative* Darcy Sandoval, RADHA - 11/13/2023 2:30 PM EDT Images from [...] nephropathy, without long-term current use of insulin ([facility]) - POCT glycosylated hemoglobin (Hb A1C) docked [...] No follow-ups on file. documented in this encounterHermann Area District [id number] Hospital Discharge instructions Patient Education 11/11/2023 13:51:14 [...] your health care provider. General instructions Take lcsl-lpr-cechheq and prescription medicines only as told by [...] provider. Document Revised: 11/27/2020 Document Reviewed: 11/27/2020 [employer] Patient Education 2022 [employer]. Follow Up Care 10/14/2023 13:29:56 With:RAUL Ingram APRN, RIANNA Abad, URL Address: When: Unknown Comments:f/up in 3 mos [facility] 08-20-2024 NotePatient Education Obstetrics and Gynecology Overactive [...] health care provider. General instructions ? Take clpb-lvx-fesagus and prescription medicines only as told by [...] help your health care (more content not included)...[facility]06-26-2023 Hospital Discharge instructions Patient Education 09/16/2022 15:39:44 [...] your health care provider. General instructions Take fpsx-qiv-bvbctxa and prescription medicines only as told by [...] provider. Document Revised: 11/27/2020 Document Reviewed: 11/27/2020 [employer] Patient Education 2022 [employer]. Follow Up Care 04/26/2022 11:39:09 With:ERIK MENG, mUer Schultz, URL Address: [facility] [address], [place] [address]- When: Unknown [facility]2023 NoteCONSULTATION CONSULTATION DATE: 05/23/2022 HISTORY: This [...] otherwise indicated. Patient agrees with this plan.[id number] Hospital Discharge instructions Patient Education 04/26/2022 11:21:01 [...] urethra. Follow these instructions at home: Take kubd-lgd-ghdwqjb and prescription medicines only as told by [...] 03/10/2006 Document Revised: 02/02/2019 Document Reviewed: 04/14/2017 [employer] Patient Education 2019 [employer]. Follow Up Care 04/08/2022 14:01:00 With:ERIK MENG, Umer Schultz, URL Address: [address] [place] [address]- When: Unknown [facility] 01-16-2023 Hospital Discharge instructions Patient Education 04/08/2022 [...] urethra. Follow these instructions at home: Take nyml-lyr-jrdhcjm and prescription medicines only as told by [...] 03/10/2006 Document Revised: 02/02/2019 Document Reviewed: 04/14/2017 [employer] Patient Education 2020 [employer]. Follow Up Care 12/03/2021 14:11:02 With:ERIK MENG, Umer Schultz, URL Address: [facility] [address] [place] [address]- When: Unknown [facility] 11-01-2022 NoteCONSULTATION CONSULTATION DATE: 01/22/2022 CHIEF COMPLAINT: [...] to proceed. CC: Juan Pablo Alaniz M.D.[facility] [id number] NoteCONSULTATION CONSULTATION DATE: 12/13/2021 HISTORY OF PRESENT [...] his pain are prolonged sitting, standing, walking, sleeve bottom feller hours, bending and ADLs. He does not use heat or ice to his back at this time. Current medications include gabapentin 200 mg t.i.d., nabumetone 750 mg b.i.d., [place] 5/325 t.i.d. Patient does use a walking [...] L3 and L4, L5. A refill for Campo 5/325 t.i.d. will be sent today. He will receive an oral U-Tox in the office today. Supportive measures such as stretching, a menthol heat rub and heat application to his back were discussed. I did recommend a Boost supplement daily. Patient will be followed up in the office post procedure and agrees to move forward.[id number] Discharge instructions Patient Education 12/03/2021 13:45:30 [...] urethra. Follow these instructions at home: Take wgdp-vmn-zqmbrod and prescription medicines only as told by [...] 03/10/2006 Document Revised: 02/02/2019 Document Reviewed: 04/14/2017 [employer] Patient Education 2020 [employer]. Follow Up Care 09/03/2021 14:17:23 With:ERIK MENG, Umer Schultz, KAYLYN Address: [facility] [address] [place] [address]- [phone] When:04/04/2022 Comments:PVR [facility] 07-12-2022 NoteCONSULTATION PROCEDURE DATE: 10/02/2021 PREOPERATIVE DIAGNOSIS: [...] he reports mitigation of his pain symptomatology. [facility] Signed and Approved by: DR VINH HOLCOMB . 10/09/2021 09:28:00[facility]07-12-2022 NoteCONSULTATION CONSULTATION DATE: 10/02/2021 CHIEF COMPLAINT: Low [...] three times a day. We will re-prescribe Campo 5/325 t.i.d. which he had received from [...] to proceed. CC: Juan Pablo Alaniz M.D. [facility] Signed and Approved by: DR VINH HOLCOMB . 10/09/2021 09:28:00[facility]06-13-2022 Hospital Discharge instructions Patient Education [...] 03/10/2006 Document Revised: 11/27/2018 Document Reviewed: 02/07/2017 [employer] Patient Education 2020 [employer]. 09/03/2021 13:53:06 Benign Prostatic Hyperplasia Benign Prostatic [...] urethra. Follow these instructions at home: Take diqz-hxf-kqsaaun and prescription medicines only as told by [...] 03/10/2006 Document Revised: 02/02/2019 Document Reviewed: 04/14/2017 [employer] Patient Education 2020 [employer]. Follow Up Care 07/03/2021 15:21:16 With:Umer VALENCIA MD, URL Address: [facility] [address], [place] [address]- [phone] When:Within 3 Month(s) Comments:f/u in 3 months with PVR scan [facility] evaluation + Plan note Future Appointments Appointment Date:12/03/2021 01:15:00 PM Scheduled Provider:Umer VALENCIA MD Location:[facility] Appointment Type:URO Office Visit [facility] evaluation + Plan note Future Appointments Appointment Date:04/08/2022 12:45:00 PM Scheduled Provider:Umer VALENCIA MD [facility] Appointment Type:URO Office Visit [facility] evaluation + Plan note Future Appointments Appointment Date:04/26/2022 10:15:00 AM Scheduled Provider:[facility] evaluation + Plan note Future Appointments Appointment Date:07/22/2022 08:45:00 AM Scheduled Provider:Umer VALENCIA MD Location:[facility] Appointment Type:URO Office Visit [facility] evaluation + Plan note Future Appointments Appointment Date:12/20/2022 08:30:00 AM Scheduled Provider:Umer VALENCIA MD Location:[facility] Appointment Type:URO Office Visit [facility] evaluation + Plan note Future Appointments Appointment Date:11/11/2023 01:00:00 PM Scheduled Provider:RAUL Ingram APRN, Marianela X Location:[facility] Appointment Type:URO Office Visit [facility] evaluation + Plan note Future Appointments Appointment Date:02/10/2024 12:30:00 PM Scheduled Provider:RAUL Ingram APRN, Marianela X Location:[facility] Appointment Type:URO Office Visit [facility] evaluation note* Diagnosis Localized edema- Primary Edema [...] anxiety, unspecified dementia severity, unspecified dementia type ([facility]) Depression, unspecified depression type Essential hypertension Unspecified essential hypertension Type 2 diabetes mellitus without complication, without long-term current use of insulin ([facility]) [facility] Diagnosis Dementia without behavioral disturbance, psychotic disturbance, mood disturbance, or anxiety, unspecified dementia severity, unspecified dementia type ([facility])- Primary Falls, subsequent encounter Hypertension associated with 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 ([facility]) Back pain, unspecified back location, unspecified back pain laterality, unspecified chronicity [facility] Diagnosis Dementia without behavioral disturbance, psychotic disturbance, mood disturbance, or anxiety, unspecified dementia severity, unspecified dementia type ([facility])- Primary Hypertension associated with 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 ([facility]) Falls, subsequent encounter [facility] Diagnosis Bilateral lower extremity edema- Primary Type 2 diabetes mellitus with diabetic nephropathy, without long-term current use of insulin ([facility]) Hypokalemia Hypopotassemia [facility] Diagnosis Hypertension associated with 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 ([facility])- Primary Dementia without behavioral disturbance, psychotic disturbance, mood disturbance, or anxiety, unspecified dementia severity, unspecified dementia type ([facility]) Benign prostatic hyperplasia with lower urinary tract symptoms, symptom details unspecified Hypernatremia Hyperosmolality and/or hypernatremia [facility] Narrative No data available for this section [facility] Hospital Discharge instructions No data available for this section [facility] InstructionsNot on filedocumented in this encounter [facility] filedocumented in this encounter [facility] on filedocumented in this encounter [facility] filedocumented in this [facility] No data available for this section [facility] Summary Purpose Family History No Family History [...] section and content) DATE CREATED AUTHOR 11/14/2020 [facility] DATE CREATED AUTHOR AUTHOR'S ORGANIZ ATION 08/02/2022 [facility] DATE CREATED AUTHOR AUTHOR'S ORGANIZ ATION 11/17/2023 [facility] DATE CREATED AUTHOR AUTHOR'S ORGANIZ ATION 11/24/2023 [facility] DATE CREATED AUTHOR AUTHOR'S ORGANIZ ATION 12/07/2023 [facility] DATE CREATED AUTHOR AUTHOR'S ORGANIZ ATION 01/31/2024 [facility] EPIC DATE CREATED AUTHOR AUTHOR'S ORGANIZ ATION 02/13/2024 [facility] Care Team (unrecognized sect ion and content) Head Charrer Relationship Specialty Start Date End Date Juan Pablo Alaniz MD [address] [place] [address] PCP - Peg [place] 03/24/21 Juan Pablo Alaniz MD [address] [place] [address] PCP - General Internal Medicine 07/30/22 Head Charrer Relationship Specialty Start Date End Date Juan Pablo Alaniz MD [address] [place] [address] PCP - Peg [place] 03/24/21 Juan Pablo Alaniz MD [address] [place] [address] PCP - General Internal Medicine 07/30/22 Head Charrer Relationship Specialty Start Date End Date Juan Pablo Alaniz MD [address] [place] [address] PCP - Peg [place] 03/24/21 Juan Pablo Alaniz MD [address] [place] [address] PCP - General Internal Medicine 07/30/22 Head Charrer Relationship Specialty Start Date End Date Juan Pablo Alaniz MD [address] [place] [address] PCP - Peg [place] 03/24/21 Juan Pablo Alaniz MD [address] [place] [address] PCP - General Internal Medicine 07/30/22 Head Charrer Relationship Specialty Start Date End Date Juan Pablo Alaniz MD [address] [place] [address] PCP - Peg [place] 03/24/21 Juan Pablo Alaniz MD [address] [place] [address] PCP - General Internal Medicine 07/30/22 Head Charrer Relationship Specialty Start Date End Date Juan Pablo Alaniz MD [address] [place] [address] PCP - Peg [place] 03/24/21 Juan Pablo Alaniz MD [address] [place] [address] PCP - General Internal Medicine 07/30/22 Head Charrer Relationship Specialty Start Date End Date Juan Pablo Alaniz MD [address] [place] [address] PCP - Peg [place] 03/24/21 Juan Pablo Alaniz MD [address] [place] [address] PCP - General Internal Medicine 07/30/22 Head Charrer Relationship Specialty Start Date End Date Juan Pablo Alaniz MD [address] [place] [address] PCP - Peg [place] 03/24/21 Juan Pablo Alaniz MD [address] [place] [address] PCP - General Internal Medicine 07/30/22 Head Charrer Relationship Specialty Start Date End Date Juan Pablo Alaniz MD [address] [place] [address] PCP - Peg [place] 03/24/21 Juan Pablo Alaniz MD [address] [place] [address] PCP - General Internal Medicine 07/30/22 Head Charrer Relationship Specialty Start Date End Date Juan Pablo lAaniz MD [address] [place] [address] PCP - Peg [place] 03/24/21 Juan Pablo Alaniz MD [address] [place] [address] PCP - General Internal Medicine 07/30/22 Head Charrer Relationship Specialty Start Date End Date Juan Pablo Alaniz MD [address] [place] [address] PCP - Peg [place] 03/24/21 Juan Pablo Alaniz MD [address] [place] [address] PCP - General Internal Medicine 07/30/22 Head Charrer Relationship Specialty Start Date End Date Michelle Deleon MD [address] [place] [address] PCP - General Psychiatry 11/28/23 Head Charrer Relationship Specialty Start Date End Date Michelle Deleon MD [address] [place] [address] PCP - General Psychiatry 11/28/23 Reason for Visit (unrecogniz ed section and [...] BE BASED ON THE PRIMARY CLINICAL RECORDS. [employer] provides no warranty or guarantee of the accuracy or completeness of information in this document.
[2024-04-27 23:59] VITALS: PULSE 70; O2SAT 88
[2024-04-27] MEDS: IPRATROPIUM/ALBUTEROL SULFATE 3 ML AMPUL.NEB IH (23:59)
[2024-04-28] VITALS (36 sets, daily range): BP systolic 81–135; BP diastolic 41–109; PULSE 60–109; TEMP 33.4–36.6; O2SAT 75–99; BMI 30.2
[2024-04-28 00:02] LABS: ABG PCO2 44.6 mmHg (35.0-45.0); Allen Test POSITIVE (POSITIVE); HCO3 ABG 19.3 mmol/L (22.0-26.0); Oxygen Saturation ABG 94.6 %; PO2 ABG 76.5 mmHg (80.0-100.0)
[2024-04-28 00:03] LABS: O2 Mode ROOM AIR; Puncture Site R RADIAL
[2024-04-28 00:04] LABS: pH ABG 7.246 (7.350-7.450)
[2024-04-28 00:24] LABS: Basophils Percent Auto 0.3 % (0.2-2.0); Eosinophils Absolute Auto 0.1 10^3/uL (0.0-0.7); Eosinophils Percent Auto 0.6 % (0.9-7.0); Hematocrit 29.1 % (42.0-54.0); Hemoglobin 9.1 g/dL (14.0-18.0); Immature Granulocytes Abs Auto 0.03 10^3/uL (0.00-0.03); Immature Granulocytes Pct Auto 0.3 % (0.0-0.5); Lymphocytes Absolute Auto 0.7 10^3/uL (1.2-3.8); Mean Corpuscular HGB Conc 31.3 g/dL (29.9-35.2); Mean Corpuscular Hemoglobin 31.9 pg (25.9-34.0); Mean Corpuscular Volume 102.1 fL (80.0-94.0); Mean Platelet Volume 12.7 fL (9.5-13.5); Monocytes Absolute Auto 0.4 10^3/uL (0.3-0.8); Monocytes Percent Auto 3.6 % (1.7-12.0); Neutrophils Absolute Auto 10.2 10^3/uL (1.4-6.5); Neutrophils Percent Auto 89.2 % (43.0-75.0); Platelet Count 71 10^3/uL (150-450); Red Blood Count 2.85 10^6/uL (4.70-6.10); Red Cell Distribution Width 15.5 % (11.0-15.0); White Blood Count 11.4 10^3/uL (4.0-11.0)
[2024-04-28] MEDS: 0.9 % SODIUM CHLORIDE 1,000 ML 1000 ML IV (00:27)
[2024-04-28] MEDS: IMIPENEM/CILASTATIN SODIUM 1,000 MG in 0.9 % SODIUM CHLORIDE 100 ML 100 MG IV (00:28)
[2024-04-28] MEDS: NOREPINEPHRINE BITARTRATE 4 MG in DEXTROSE 5 % IN WATER 250 ML 30.48 MG IV (00:35)
[2024-04-28 00:36] LABS: Bilirubin Urine NEGATIVE (NEGATIVE); Blood Urine LARGE (NEGATIVE); Clarity Urine CLEAR (CLEAR); Color Urine DK. BROWN (YELLOW); Glucose Urine UA NEGATIVE (NEGATIVE); Ketones Urine TRACE mg/dL (NEGATIVE); Leukocyte Esterase Urine TRACE (NEGATIVE); Nitrite Urine NEGATIVE (NEGATIVE); Protein Urine 30 mg/dL (NEG/TRACE); Urobilinogen Urine 0.2 EU/dL (0.2-1.0)
[2024-04-28 00:43] LABS: Bacteria Urine MODERATE #/HPF (NONE SEEN); Cast Seen? SEEN #/LPF (NONE SEEN); Crystals Seen? None Seen #/HPF (None Seen); Hyaline Casts Urine RARE; Mucus Urine NONE SEEN (NONE SEEN); RBC Urine >100 #/HPF (0-2); Squamous Epithelial Cell Urine RARE #/LPF (NONE/RARE); Urine Culture Indicated YES
[2024-04-28 00:48] LABS: Influenza Virus A Antigen Negative; Influenza Virus B Antigen Negative; Internal Control Within Normal Limits
[2024-04-28] MEDS: NOREPINEPHRINE BITARTRATE 4 MG in DEXTROSE 5 % IN WATER 250 ML 38.1 MG IV (00:48)
[2024-04-28 00:49] LABS: Internal Control Within Normal Limits; SARS-CoV-2 Ag NEGATIVE (NEGATIVE)
[2024-04-28] MEDS: VANCOMYCIN HCL 1,500 MG in 0.9 % SODIUM CHLORIDE 500 ML 250 MG IV (00:49)
[2024-04-28 00:50] LABS: Alanine Aminotransferase 60 U/L (16-63); Albumin Globulin Ratio 0.9; Albumin Level 2.5 g/dL (3.4-5.0); Alkaline Phosphatase 84 U/L (46-116); Aspartate Amino Transferase 27 U/L (15-37); BUN Creatinine Ratio 20.3; Bilirubin Total 0.3 mg/dL (0.2-1.0); Calcium 8.2 mg/dL (8.5-10.1); Carbon Dioxide 22.2 mmol/L (21.0-32.0); Chloride 117 mmol/L (98-107); Estimated GFR (African America 17 (>=60 mL/min/1.73m^2); Estimated GFR (Non-African Ame 14 (>=60 mL/min/1.73m^2); Globulin 2.9 g/dL; Glucose 119 mg/dL (74-106); Sodium 148 mmol/L (136-145); Total Protein 5.4 g/dL (6.4-8.2)
[2024-04-28] MEDS: NOREPINEPHRINE BITARTRATE 4 MG in DEXTROSE 5 % IN WATER 250 ML 45.72 MG IV (01:05)
[2024-04-28 01:15] LABS: Potassium 7.2 mmol/L (3.5-5.1)
[2024-04-28 01:16] LABS: Lactate/Lactic Acid 2.6 mmol/L (0.4-2.0)
[2024-04-28] MEDS: DEXTROSE 50 %-WATER 25 GM/50 ML SYRINGE IV ×2 (01:25→04:33)
[2024-04-28] MEDS: SODIUM BICARBONATE 8.4 % 50 MEQ/50 ML SYRINGE IV ×2 (01:25→04:32)
[2024-04-28] MEDS: CALCIUM GLUCONATE 1,000 MG/10 ML VIAL 1000 MG IVP (01:25)
[2024-04-28] MEDS: INSULIN REGULAR, HUMAN (100 UNIT/ML) 10 ML MDV 10 UNIT IV ×2 (01:25→04:32)
[2024-04-28 01:38] LABS: Troponin I High Sensitivity 11.8 pg/mL (4.0-76.1)
[2024-04-28 03:11] LABS: Anion Gap 15.5; BUN Creatinine Ratio 20.6; Calcium 8.4 mg/dL (8.5-10.1); Carbon Dioxide 23.9 mmol/L (21.0-32.0); Chloride 116 mmol/L (98-107); Estimated GFR (African America 16 (>=60 mL/min/1.73m^2); Estimated GFR (Non-African Ame 13 (>=60 mL/min/1.73m^2); Glucose 186 mg/dL (74-106); Sodium 148 mmol/L (136-145)
[2024-04-28 03:14] LABS: Lactate/Lactic Acid 1.8 mmol/L (0.4-2.0)
[2024-04-28 03:17] LABS: Potassium 7.4 mmol/L (3.5-5.1)
--- NOTE | 2024-04-28 03:24 | PC.NURSE ---
Pt pending admission to [facility]. Levophed gtt off pt status DNRCC at this time. repeat labs continue to be abnormal. Repeat BMP to be drawn at 0400
[2024-04-28 04:15] LABS: Anion Gap 17.5; Calcium 8.3 mg/dL (8.5-10.1); Carbon Dioxide 19.3 mmol/L (21.0-32.0); Chloride 117 mmol/L (98-107); Estimated GFR (African America 17 (>=60 mL/min/1.73m^2); Estimated GFR (Non-African Ame 14 (>=60 mL/min/1.73m^2); Glucose 163 mg/dL (74-106); Sodium 146 mmol/L (136-145)
[2024-04-28 04:17] LABS: Potassium 7.8 mmol/L (3.5-5.1)
--- NOTE | 2024-04-28 04:17 | PC.NURSE ---
lab dept called with 2 critical lab results: potassium = 7.8, and BUN = 92, Dr Dennis and MIGUEL Ovalle in informed of these 2 critical results
--- NOTE | 2024-04-28 04:57 | PC.NURSE ---
Pt had loose stool. Cleaned up
[2024-04-28 06:14] LABS: Anion Gap 16.2; BUN Creatinine Ratio 21.2; Calcium 8.3 mg/dL (8.5-10.1); Carbon Dioxide 23.4 mmol/L (21.0-32.0); Chloride 117 mmol/L (98-107); Estimated GFR (African America 16 (>=60 mL/min/1.73m^2); Estimated GFR (Non-African Ame 13 (>=60 mL/min/1.73m^2); Glucose 186 mg/dL (74-106); Sodium 149 mmol/L (136-145)
[2024-04-28] MEDS: 0.9 % SODIUM CHLORIDE 1,000 ML 500 ML IV (06:15)
[2024-04-28 06:18] LABS: Potassium 7.6 mmol/L (3.5-5.1)
--- OUTSIDE RECORDS SUMMARY | 2024-04-28 06:24 | XMS_ITS | CCD ---
Author Organization [facility] Care Team Providers Care Filling Station Attendant Name Role Phone JUAN PABLO ALANIZ [...] Referring Unavailable RENE ANTHONY Referring Unavailable [facility] Primary Care Unavailable LORIRONALDRI Referring Unavailable [facility] Primary Care Unavailable JUAN DAVID LUI Attending Unavailable [facility] Primary Care Unavailable Juan Pablo Alaniz MD Unavailable [phone] Juan Pablo Alaniz MD Primary Care Provider [phone] JUAN PABLO ALANIZ Attending Unavailable JUAN PABLO [...] Primary Care Provider Unavailjose raul De[facility] Provider Allergies Allergy Classification Reported Allergen(s) Allergy Type Date of Onset Reaction(s) Facility (11 sources) Penicillin; Translations: [penicillin] Drug Allergy 2 [facility] (3 sources) Penicillins; Translations: [PENICILLINS] Drug allergy (disorder) 4 [facility] Repository (17 sources) Penicillin G Drug Allergy 3 Unknown [facility] Healthcare Work Phone: (11 sources) Codeine Drug Allergy 4 [facility] (6 sources) Penicillins Propensity to adverse reactions to drug 4 [facility] Medications Current Medications Medication Drug Class(es) Dates [...] Status: Ordered take 1 capsule by mo [facility] twice daily docusate sodium (COLACE) 100 MG [...] Start: 11-28-2022 take 1 capsule by mo [facility] once daily FLUoxetine (PROzac) 20 MG capsule [...] Daily, # 30 tab(s), Refills(s) 11, Pharmacy: [facility], 167, cm, 09/16/22 15:10:00 EDT, Height/Length Dosing, 120, kg, 09/16/22 15:10:00 EDT, Weight Dosing Start Date: 10/01/23 Status: Ordered Start: 09-16-2022 End: 09-11-2023 take 1 tablet by mouth once daily Vesicare 10 mg Tab 10 mg = 1 tab(s), Oral, Daily, X 30 day(s), # 30 tab(s), Refills(s) 11, Pharmacy: [facility], 167, cm, 09/16/22 15:10:00 EDT, Height/Length Dosing, 120, kg, 09/16/22 15:10:00 EDT, Weight Dosing Start Date: 09/16/22 Stop Date: 09/11/23 Status: Ordered Start: 04-26-2022 take 1 tablet by shannon th once daily Vesicare 5 mg Tab 5 mg = 1 tab(s), Oral, Daily, # 30 tab(s), Refills(s) 11, [facility]: [facility], 174, cm, 12/03/21 13:40:00 EDT, Height/Length Dosing, 112, kg, 12/03/21 13:40:00 EDT, Weight Dosing Start Date: 04/26/22 Status: Ordered tamsulosin hydrochloride 0.4 mg oral capsule (20 sources) alpha-Adrenergic Levi Start: 10-01-2023 take 1 capsule by mouth once daily Flomax 0.4 mg Cap 0.4 mg = 1 cap(s), Oral, Daily, # 30 cap(s), Refills(s) 11, Pharmacy: [facility], 167, cm, 09/16/22 15:10:00 EDT, Height/Length Dosing, 120, kg, 09/16/22 15:10:00 EDT, Weight Dosing Start Date: 10/01/23 Status: Ordered Start: 10-31-2022 take 1 capsule by [facility] every twenty-four hours in the morning [...] Daily, # 90 cap(s), Refills(s) 3, Pharmacy: [facility], 174, cm, 09/03/21 13:40:00 EDT, Height/Length Dosing, 112.5, kg, 09/03/21 13:40:00 EDT, Weight Dosing Start Date: 10/25/21 Status: Ordered 24 hr tolterodine tartrate 4 mg extended release oral capsule (4 sources) Cholinergic Muscarinic Antagonist Start: 01-17-2021 take 1 capsule by mouth once daily tolterodine 4 mg Cap-ER 4 mg = 1 cap(s), Oral, Daily, # 30 cap(s), Refills(s) 11, Pharmacy: [facility], 174, cm, 09/03/21 13:40:00 EDT, Height/Length [...] Daily, # 30 tab(s), Refills(s) 3, Pharmacy: [facility], 167, cm, 11/11/23 13:29:00 EDT, [...] disease (15 sources) Atherosclerotic heart disease of [place] coronary artery with unspecified angina pectoris; Translations: [...] 10-07-2022 Chronic Other aftercare (1 source) Other usp (current) drug therapy; Translations: [OTH TOMB MAKER HELPER CURRENT DRUG THERAPY] Onset: 07-31-2022 Episodic Other aftercare (1 source) USP (current) use of oral hypoglycemic drugs; Translations: [TOMB MAKER HELPER USE ORAL HYPOGLYCEMIC DX] Onset: 07-31-2022 Episodic [...] OF COVID-19] Onset: 03-06-2022 Unclassified (1 source) TOMB MAKER HELPER INJECT NONINSULN ANTIDIAB; Translations: [USP INJECT NONINSULN ANTIDIAB] Onset: 03-02-2022 Unclassified (2 [...] sources) Long-term current use of insulin; Translations: [USP (current) use of insulin] Onset: 07-23-2017 Resolved: [...] AT 5 DAYS.^NO GROWTH AT 5 DAYS. [facility] LEFT AC [facility] BLOOD CULTURE 2on 02-06-2024 BLOOD CULTURE 2 Blood Culture 2 NG5D NO GROWTH AT 5 DAYS.^NO GROWTH AT 5 DAYS. [facility] 1002 [facility] No Panel Informationon 02-05 [facility] ALL BASIC METABOLIC PANELon 12-05-2023 Anion gap [Moles/Vol] 9 mmol/L 9 - 16 mmol/L [facility] Calcium [Mass/Vol] 8.5 mg/dL Low 8.6 - 10. 4 mg/dL [facility] Chloride [Moles/Vol] 108 mmol/L High 98 - 107 mmol/L [facility] CO2 [Moles/Vol] 26 mmol/L 20 - 31 mmol/L [facility] Creatinine [Mass/Vol] 1.6 mg/dL High 0.70 - 1.20 mg/dL [facility] Glucose [Mass/Vol] 66 mg/dL Low 74 - 99 mg/dL [facility] Interpretation and review of laboratory results Abnormal [facility] 20 9 - 20 [facility] EGFR 41 Low - PINF [facility] Comment on above: These results are not [...] [Moles/Vol] 4.3 mmol/L 3.7 - 5.3 mmol/L [facility] Sodium [Moles/Vol] 143 mmol/L 136 - 145 mmol/L [facility] Urea nitrogen [Mass/Vol] 32 mg/dL High 8 - 23 mg/dL [facility] Original Ordering Provider: DARCY SANDOVAL [facility] Basic Metabolic Panelon - Anion gap [Moles/Vol] 9 mmol/L 9 - 16 mmol/L [facility] Calcium [Mass/Vol] 8.5 mg/dL Low 8.6 - 10. 4 mg/dL [facility] Chloride [Moles/Vol] 108 mmol/L High 98 - 107 mmol/L [facility] CO2 [Moles/Vol] 26 mmol/L 20 - 31 mmol/L [facility] Creatinine [Mass/Vol] 1.6 mg/dL High 0.70 - 1.20 mg/dL [facility] Est, Glom Filt Rate 41 Low - PINF [facility] Comment on above: These results are not [...] 66 mg/dL Low 74 - 99 mg/dL [facility] Interpretation and review of laboratory results Abnormal [facility] Potassium [Moles/Vol] 4.3 mmol/L 3.7 - 5.3 mmol/L [facility] Sodium [Moles/Vol] 143 mmol/L 136 - 145 mmol/L [facility] Urea nitrogen [Mass/Vol] 32 mg/dL High 8 - 23 mg/dL [facility] Urea nitrogen/Creatinin e [Mass ratio] 20 mg/mg 9 - 20 [facility] Basic Metabolic Profon 12-04 Anion gap [Moles/Vol] 9 mmol/L Normal -16 [facility] Comment on above: Performed By: #### B MP #### [facility] [address] [place] [address] Salt Cutter: Eliud Leonard MD BUN/CRE Ratio 20 Normal - [facility] Comment on above: Performed By: #### B MP #### [facility] [address] [place] [address] Salt Cutter: Eliud Leonard MD Calcium [Mass/Vol] 8.5 mg/dL Low 8.6-10.4 [facility] Comment on above: Performed By: #### B MP #### [facility] [address] [place] [address] Salt Cutter: Eliud Leonard MD Chloride [Moles/Vol] 108 mmol/L High 98-107 [facility] Comment on above: Performed By: #### B MP #### [facility] [address] [place] [address] Salt Cutter: Eliud Leonard MD CO2 [Moles/Vol] 26 mmol/L Normal 20-31 [facility] Comment on above: Performed By: #### B MP #### [facility] [address] [place] [address] Salt Cutter: Eliud Leonard MD Creatinine [Mass/Vol] 1.6 mg/dL High 0.70-1.20 [facility] Comment on above: Performed By: #### B MP #### [facility] [address] [place] [address] Salt Cutter: Eliud Leonard MD GFR/1.73 sq M.predicted among non-blacks MDRD (S/P/Bld) [Vol rate/Area] 41 mL/min/{1.73_m2} Low >60 [facility] Comment on above: Result Comment: These [...] secretion. Performed By: #### B MP #### [facility] [address] [place] [address] Salt Cutter: Eliud Leonard MD Glucose [Mass/Vol] 66 mg/dL Low 74-99 [facility] Comment on above: Performed By: #### B MP #### [facility] [address] [place] [address] Salt Cutter: Eliud Leonard MD Potassium [Moles/Vol] 4.3 mmol/L Normal 3.7-5.3 [facility] Comment on above: Performed By: #### B MP #### [facility] [address] [place] [address] Salt Cutter: Eliud Leonard MD Sodium [Moles/Vol] 143 mmol/L Normal 136-145 [facility] Comment on above: Performed By: #### B MP #### [facility] [address] [place] [address] Salt Cutter: Eliud Leonard MD Urea nitrogen [Mass/Vol] 32 mg/dL High 8-23 [facility] Comment on above: Performed By: #### B MP #### [facility] [address] [place] [address] Salt Cutter: Eliud Leonard MD Cult,Urineon 12-01-2023 Cult,Urine Specimen Description .CLEAN CATCH URINE Culture NO SIGNIFICANT GROWTH Report Status FINAL 12/01/2023 Normal [facility] Comment on above: Performed By: #### U #### [facility] [address] [place], [place] [id number] Salt Cutter: Darien [place] MD [facility] [address] [place] [address] [place] [address] Salt Cutter: Eliud Leonard MD ALL URINALYSISon 11-30-2023 PT BILIRUBIN, SEMIQT,UR Negative NEG [facility] BLOOD, URINE Negative NEG [facility] CLARITY, URINE Clear CLEAR [facility] COLOR Yellow YEL [facility] GLUCOSE,SEMI-QNT,U R Negative NEG mg/dL [facility] KETONES, URINE Negative NEG mg/dL [facility] LEUKOCYTE ESTERASE Negative NEG [facility] NITRITE,UR Negative NEG [facility] PH,UR 6.0 5.0 - 9.0 [facility] PROTEIN, SEMI-QNT,UR Negative NEG mg/dL [facility] SPEC. GRAVITY,UR 1.020 1.010 - 1.020 [facility] UROBILINOGEN,UR Normal 0.0 - 1.0 EU/dL [facility] Original Ordering Provider: RENE Burr MD [facility] Urinalysison 11-30-2023 Bilirubin Ql (U) Negative NEGATIVE [facility] Clarity (U) Clear Clear [facility] Color (U) Yellow Yellow [facility] Glucose Test strip (U) [Mass/Vol] Negative NEGATIVE mg/dL [facility] Hemoglobin Auto test strip Ql (U) Negative NEGATIVE [facility] Ketones (U) [Mass/Vol] Negative NEGATIVE mg/dL [facility] Leukocyte esterase Test strip Ql (U) Negative NEGATIVE [facility] Nitrite Ql (U) Negative NEGATIVE [facility] pH (U) 6.0 [pH] 5.0 - 9.0 [facility] Protein (U) [Mass/Vol] Negative NEGATIVE mg/dL [facility] Specific gravity (U) [Rel density] 1.020 1.010 - 1.020 [facility] Urobilinogen Qn (U) Normal 0.0 - 1.0 EU/dL [facility] Urinalysis, Routineon 2023 Bilirubin, SemiQt,Ur Negative Normal NEG [facility] Comment on above: Performed By: #### U A #### [facility] [address] [place] [address] Salt Cutter: Eliud Leonard MD Blood, Urine Negative Normal NEG [facility] Comment on above: Performed By: #### U A #### [facility] [address] [place] [address] [place] [address] Salt Cutter: Eliud Leonard MD Clarity (U) Clear Normal CLEAR [facility] Comment on above: Performed By: #### U A #### [facility] [address] [place] [address] Salt Cutter: Eliud Leonard MD Color (U) Yellow Normal YEL [facility] Comment on above: Performed By: #### U A #### [facility] [address] [place] [address] [place] [address] Salt Cutter: Eliud Leonard MD Glucose Ql (U) Negative Normal NEG [facility] Comment on above: Performed By: #### U A #### [facility] [address] [place] [address] Dr[place], [place] [id number] Salt Cutter: Eliud Leonard MD Ketones Ql (U) Negative Normal NEG [facility] Comment on above: Performed By: #### U A #### [facility] [address] [place] [address] Dr. [place], [facility] Salt Cutter: Eliud Leonard MD Leukocyte esterase Test strip Ql (U) Negative Normal NEG [facility] Comment on above: Performed By: #### U A #### [address] [place], [facility] Salt Cutter: Eliud Leonard MD Nitrite,Ur Negative Normal NEG [facility] Comment on above: Performed By: #### U A #### [facility] [address] [place] [address] Dr. [place], [facility] Salt Cutter: Eliud Leonard MD PH,Ur 6.0 Normal 5.0-9.0 [facility] Comment on above: Performed By: #### U A #### [address] [place], [facility] Salt Cutter: Eliud Leonard MD Protein Ql (U) Negative Normal NEG [facility] Comment on above: Performed By: #### U A #### [facility] [address] [place] [address] Dr. [place], [facility] Salt Cutter: Eliud Leonard MD Spec. Douglass,Ur 1.020 Normal 1.010-1.020 [facility] Comment on above: Performed By: #### U A #### [address] [place] [address] Salt Cutter: Eliud Leonard MD Urobilinogen,Ur Normal Normal 0.0-1.0 [facility] Comment on above: Performed By: #### U A #### [facility] [address] [place] [address] [place] [address] Salt Cutter: Eliud Leonard MD CT CERVICAL SPINE WO [...] midline. The ventricles and peripheral sulci are [id number] dilated. There is decreased attenuation in the [...] Deacon Justice MD 11/28/23 Final result Normal [facility] CT HEAD WO CONTRASTon 2023 CT [...] midline. The ventricles and peripheral sulci are [id number] dilated. There is decreased attenuation in the [...] Deacon Justice MD 11/28/23 Final result Normal [facility] 30on 11-22-2023 30 The patient is [...] and maintained or improved Outcome: Progressing Normal [facility] BASIC METABOLIC PANELon 08- Anion gap [Moles/Vol] 10 mmol/L Normal 7-20 [facility] Comment on above: Performed By: #### L [id number] ####[facility] ([facility])[address] [place] [address] Calcium [Mass/Vol] 8.0 mg/dL Low 8.6-10.[address] [facility] Comment on above: Performed By: #### L [id number] ####[facility] ([facility])[address] [place] [address] Chloride [Moles/Vol] 111 mmol/L High 98-107 [facility] Comment on above: Performed By: #### L [id number] ####[facility] ([facility])[address] [place] [address] CO2 [Moles/Vol] 29 mmol/L Normal 21-31 [facility] Comment on above: Performed By: #### L [id number] ####[facility] ([facility])[address] [place] [address] Creatinine [Mass/Vol] 1.36 mg/dL High 0.70-1.30 [facility] Comment on above: Performed By: #### L [id number] ####[facility] ([facility])[address] [place] [address] GLOMERULAR FILTRATION RATE ML/MIN/1.73 SQ M.PREDICTED 51.0 mL/min/1.73m*2 Low >[address]0 [facility] Comment on above: Result Comment: [facility]???s estimated glomerular filtration rate (eGFR) [...] of individuals. Performed By: #### L [id number] ####[facility] ([facility])[address] [place] [address] Glucose [Mass/Vol] 150 mg/dL High 70-[address] [facility] Comment on above: Performed By: #### L [id number] ####[facility] ([facility])[address] [place] [address] Potassium [Moles/Vol] 3.3 mmol/L Low 3.5-5.1 [facility] Comment on above: Performed By: #### L [id number] ####[facility] ([facility])[address] [place] [address] Sodium [Moles/Vol] 147 mmol/L High 136-[address] [facility] Comment on above: Performed By: #### L [id number] ####[facility] ([facility])[address] [place] [address] Urea nitrogen [Mass/Vol] 25 mg/dL Normal 7-25 [facility] Comment on above: Performed By: #### L [id number] ####[facility] ([facility])[address] [place] [address] UREA NITROGEN/CREATININ E (MASS RATIO) IN SER/PLAS 18.4 Normal [facility] Comment on above: Performed By: #### L [id number] ####[facility] ([facility])[address] [place] [address] CBC WITH AUTO DIFFERENTIALon 11-22-2023 Basophils (Bld) [#/Vol] 0.06 10*3/uL Normal 0.00-0.20 [facility] Comment on above: Performed By: #### L [id number] ####[facility] ([facility])[address] [place] [address] Basophils/100 WBC (Bld) 0.7 % Normal 0.0-1.0 [facility] Comment on above: Performed By: #### L [id number] ####[facility] ([facility])[address] [place] [address] Eosinophils (Bld) [#/Vol] 0.37 10*3/uL Normal 0.00-0.50 [facility] Comment on above: Performed By: #### L [id number] ####[facility] ([facility])[address] [place] [address] Eosinophils/100 WBC (Bld) 4.2 % Normal 0.0-6.0 [facility] Comment on above: Performed By: #### L [id number] ####[facility] ([facility])[address] [place] [address] Erythrocyte distribution width (RBC) [Ratio] 15.2 % High 11.5-15.0 [facility] Comment on above: Performed By: #### L [id number] ####[facility] ([facility])[address] [place] [address] ERYTHROCYTE MEAN CORPUSCULAR HEMOGLOBIN CONCENTRATION (G/DL) BY AUTOMATED 32.6 g/dL Normal 32.0-35.0 [facility] Comment on above: Performed By: #### L [id number] ####[facility] ([facility])[address] [place] [address] Hematocrit (Bld) [Volume fraction] 38.3 % Low 39.0-55.0 [facility] Comment on above: Performed By: #### L [id number] ####[facility] ([facility])[address] [place] [address] Hemoglobin (Bld) [Mass/Vol] 12.5 g/dL Low 13.0-17.0 [facility] Comment on above: Performed By: #### L [id number] ####[facility] ([facility])[address] [place] [address] Immature granulocytes (Bld) [#/Vol] 0.15 10*3/uL Normal 0.00-0.20 [facility] Comment on above: Performed By: #### L [id number] ####[facility] ([facility])[address] [place] [address] Immature granulocytes/100 WBC (Bld) 1.7 % High 0.0-1.0 [facility] Comment on above: Performed By: #### L [id number] ####[facility] ([facility])[address] [place] [address] Lymphocytes (Bld) [#/Vol] 1.19 10*3/uL Low 1.20-4.00 [facility] Comment on above: Performed By: #### L [id number] ####[facility] ([facility])[address] [place] [address] Lymphocytes/100 WBC (Bld) 13.6 % Low 20.0-45.0 [facility] Comment on above: Performed By: #### L [id number] ####[facility] ([facility])[address] [place] [address] MCH (RBC) [Entitic mass] 32.4 pg Normal 27.0-33.0 [facility] Comment on above: Performed By: #### L [id number] ####[facility] ([facility])[address] [place] [address] MCV (RBC) [Entitic vol] 99.2 fL High 82.0-98.0 [facility] Comment on above: Performed By: #### L [id number] ####[facility] ([facility])[address] [place] [address] Monocytes (Bld) [#/Vol] 0.93 10*3/uL Normal 0.10-1.00 [facility] Comment on above: Performed By: #### L [id number] ####[facility] ([facility])[address] [place] [address] Monocytes/100 WBC (Bld) 10.6 % Normal 5.0-12.0 [facility] Comment on above: Performed By: #### L [id number] ####[facility] ([facility])[address] [place] [address] Neutrophils (Bld) [#/Vol] 6.06 10*3/uL Normal 1.60-7.60 [facility] Comment on above: Performed By: #### L [id number] ####[facility] ([facility])[address] [place] [address] Neutrophils/100 WBC (Bld) 69.2 % Normal 40.0-72.0 [facility] Comment on above: Performed By: #### L [id number] ####[facility] ([facility])[address] [place] [address] NRBC (PER 100 WBCS) BY AUTOMATED COUNT 0.0 % Normal 0 [facility] Comment on above: Performed By: #### L [id number] ####[facility] ([facility])[address] [place] [address] PLATELETS (10*3/UL) IN BLOOD AUTOMATED COUNT 167 10*3/uL Normal 150-400 [facility] Comment on above: Performed By: #### L [id number] ####[facility] ([facility])[address] [place] [address] RBC (Bld) [#/Vol] 3.86 10*6/uL Low 4.20-5.70 [facility] Comment on above: Performed By: #### L [id number] ####[facility] ([facility])[address] [place] [address] WBC (Bld) [#/Vol] 8.76 10*3/uL Normal 4.00-10.60 [facility] Comment on above: Performed By: #### L [id number] ####[facility] ([facility])[address] [place] [address] 30on 11-21-2023 30 The patient is Moderately Stable - Low risk of patient condition declining or worsening The patient's goals for the shift include rest/comfort The clinical goals for the shift include VSS Problem: Pain - Adult Goal: Verbalizes/displays adequate comfort level or baseline comfort level Outcome: Progressing Problem: Safety - Adult Goal: Free from fall injury Outcome: Progressing Normal [facility] 30 The patient is Moderately [...] and maintained or improved Outcome: Progressing Normal [facility] BASIC METABOLIC PANELon 08-3 -2023 Anion gap [Moles/Vol] 9 mmol/L Normal 7-20 [facility] Comment on above: Performed By: #### L [id number] ####[facility] ([facility])[address] [facility] [address] Calcium [Mass/Vol] 8.0 mg/dL Low 8.6-10.[address] [facility] Comment on above: Performed By: #### L [id number] ####[facility] ([facility])[address] [place] [address] Chloride [Moles/Vol] 113 mmol/L High 98-107 [facility] Comment on above: Performed By: #### L [id number] ####[facility] ([facility])[address] [place] [address] CO2 [Moles/Vol] 27 mmol/L Normal 21-31 [facility] Comment on above: Performed By: #### L [id number] ####[facility] ([facility])[address] [place] [address] Creatinine [Mass/Vol] 1.47 mg/dL High 0.70-1.30 [facility] Comment on above: Performed By: #### L [id number] ####[facility] ([facility])[address] [place] [address] GLOMERULAR FILTRATION RATE ML/MIN/1.73 SQ M.PREDICTED 46.5 mL/min/1.73m*2 Low >60.0 [facility] Comment on above: Result Comment: [facility] [place] [facility]???s estimated glomerular filtration rate (eGFR) [...] of individuals. Performed By: #### L [id number] ####[facility] ([facility])[address] [place] [address] Glucose [Mass/Vol] 135 mg/dL High 70-[address] [facility] Comment on above: Performed By: #### L [id number] ####[facility] ([facility])[address] [place] [address] Potassium [Moles/Vol] 3.3 mmol/L Low 3.5-5.1 [facility] Comment on above: Performed By: #### L [id number] ####[facility] ([facility])[address] [place] [address] Sodium [Moles/Vol] 146 mmol/L High 136-[address] [facility] Comment on above: Performed By: #### L [id number] ####[facility] ([facility])[address] [place] [address] Urea nitrogen [Mass/Vol] 35 mg/dL High 7-25 [facility] Comment on above: Performed By: #### L [id number] ####[facility] ([facility])[address] [place] [address] UREA NITROGEN/CREATININ E (MASS RATIO) IN SER/PLAS 23.8 Normal [facility] Comment on above: Performed By: #### L [id number] ####[facility] ([facility])[address] [place] [address] CBCon 11-21-2023 Erythrocyte distribution width (RBC) [Ratio] 15.3 % High 11.5-15.0 [facility] Comment on above: Performed By: #### L [id number] ####[facility] ([facility])[address] [place] [address] ERYTHROCYTE MEAN CORPUSCULAR HEMOGLOBIN CONCENTRATION (G/DL) BY AUTOMATED 32.7 g/dL Normal 32.0-35.0 [facility] Comment on above: Performed By: #### L [id number] ####[facility] ([facility])[address] [place] [address] Hematocrit (Bld) [Volume fraction] 38.5 % Low 39.0-55.0 [facility] Comment on above: Performed By: #### L [id number] ####[facility] ([facility])[address] [place] [address] Hemoglobin (Bld) [Mass/Vol] 12.6 g/dL Low 13.0-17.0 [facility] Comment on above: Performed By: #### L [id number] ####[facility] ([facility])[address] [place], [place] [address] MCH (RBC) [Entitic mass] 32.1 pg Normal 27.0-33.0 [facility] Comment on above: Performed By: #### L [id number] ####[facility] ([facility])[address] [place] [address] MCV (RBC) [Entitic vol] 98.2 fL High 82.0-98.0 [facility] Comment on above: Performed By: #### L [id number] ####[facility] ([facility])[address] [place] [address] PLATELETS (10*3/UL) IN BLOOD AUTOMATED COUNT 172 10*3/uL Normal 150-400 [facility] Comment on above: Performed By: #### L [id number] ####[facility] ([facility])[address] [place] [address] RBC (Bld) [#/Vol] 3.92 10*6/uL Low 4.20-5.70 [facility] Comment on above: Performed By: #### L [id number] ####[facility] ([facility])[address] [place] [address] WBC (Bld) [#/Vol] 9.67 10*3/uL Normal 4.00-10.60 [facility] Comment on above: Performed By: #### L [id number] ####[facility] ([facility])[address] [place] [address] 30on 11-20-2023 30 The patient is Moderately Stable - Low risk of patient condition declining or worsening The patient's goals for the shift include restraints off The clinical goals for the shift include stable hemodynamics Over the shift, the patient did not make progress toward the following goals. [facility] 30 Daily Case Managemen t Update [...] OT Six Click Score: 8 PT Recommendations: [facility] facility placement OT Recommendations: [facility] facility placement New Consults: Ancillary Consults (From admission, onward) Start Ordered 11/19/23 0924 Inpatient consult to Social Work Once Provider: (Not yet assigned) Question Answer Comment Select all services needed for the patient Custodial Facility (30 day convalescent stay) Please indicate [...] OT? Answer: eval and treat 11/19/23 0756 [facility] CONSULTon 11-20-2023 CONSULT -- Attestation signed by Juan Pablo Liz MD at 11/21/2023 12:08 PM As noted. Patient to be staffed in person on 11/20 Psychiatry Consultation Service - New Assessment Patient Name: Nat Moore MRN / CSN: [id number] Date of / Age: 2 1940 / [...] mild cognitive impairment originally presenting to the [facility] Emergency Room on 11/15/2023 for evaluation of recurrent episodes of syncope secondary to spontaneous prolonged sinus pause. The patient was transferred via air ambulance from the [facility]. Psychiatry was consulted for management of agitation secondary to dementia . Emergency Room Course: Imaging/Workup: On arrival to [facility] the patient's blood pressure was 158/72 mmHg, pulse rate 78 bpm, regular, SpO2 100% on room air, respiratory rate 20/min, temperature 97.2. 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 CT of the abdomen with contrast done at [place] [facility] showed nonobstructive bowel gas pattern with [...] would con (more content not included)... Normal [facility] NURSNOTEon 11-20-2023 NURSNOTE Patient Name: [...] voiced no concerns at this time. The short story writer urged the primary RN to call the rapid team if any concerns arise overnight. Chevy Hines RN Rapid Response Team Nurse [phone] 11/20/2023 11:34 PM Normal [facility] 30on 11-19-2023 30 Daily Case Managemen t Update Multidisciplinary rounds have been completed. Barriers to Discharge: 11/18- patient here from [facility] for recurrent episodes of syncope secondary to spontaneous prolonged sinus pauses. During his stay in [place] [facility] he suddenly developed bradycardia prolonged sinus [...] Select all services needed for the patient Custodial Facility (30 day convalescent stay) Please indicate [...] Answer: eval and treat 11/19/23 0756 Normal [facility] BASIC METABOLIC PANELon 08 Anion gap [Moles/Vol] 11 mmol/L Normal 7-20 [facility] Comment on above: Performed By: #### L [id number] ####[facility] ([facility])[address] [place] [address] Calcium [Mass/Vol] 8.0 mg/dL Low 8.6-10.[address] [facility] Comment on above: Performed By: #### L [id number] ####[facility] ([facility])[address] [place] [address] Chloride [Moles/Vol] 112 mmol/L High 98-107 [facility] Comment on above: Performed By: #### L [id number] ####[facility] ([facility])[address] [place] [address] CO2 [Moles/Vol] 26 mmol/L Normal 21-31 [facility] Comment on above: Performed By: #### L [id number] ####[facility] ([facility])[address] [place] [address] Creatinine [Mass/Vol] 1.69 mg/dL High 0.70-1.30 [facility] Comment on above: Performed By: #### L [id number] ####[facility] ([facility])[address] [place] [address] GLOMERULAR FILTRATION RATE ML/MIN/1.73 SQ M.PREDICTED 39.3 mL/min/1.73m*2 Low >[address].0 [facility] Comment on above: Result Comment: The [facility]???s estimated glomerular filtration rate (eGFR) [...] of individuals. Performed By: #### L [id number] ####[facility] ([facility])[address] [place] [address] Glucose [Mass/Vol] 122 mg/dL High 70-[address] [facility] Comment on above: Performed By: #### L [id number] ####[facility] ([facility])[address] [place] [address] Potassium [Moles/Vol] 3.5 mmol/L Normal 3.5-5.1 [facility] Comment on above: Performed By: #### L [id number] ####[facility] ([facility])[address] [place] [address] Sodium [Moles/Vol] 145 mmol/L Normal 136-[address] [facility] Comment on above: Performed By: #### L [id number] ####[facility] ([facility])[address] [place] [address] Urea nitrogen [Mass/Vol] 49 mg/dL High 7-25 [facility] Comment on above: Performed By: #### L [id number] ####[facility] ([facility])[address] [place] [address] UREA NITROGEN/CREATININ E (MASS RATIO) IN SER/PLAS 29.0 Normal [facility] Comment on above: Performed By: #### L [id number] ####[facility] ([facility])[address] [place] [address] CBCon 11-19-2023 Erythrocyte distribution width (RBC) [Ratio] 15.0 % Normal 11.5-15.0 [facility] Comment on above: Performed By: #### L [id number] #### [facility] ([facility]) [address] [place] [address] ERYTHROCYTE MEAN CORPUSCULAR HEMOGLOBIN CONCENTRATION (G/DL) BY AUTOMATED 32.8 g/dL Normal 32.0-35.0 [facility] Comment on above: Performed By: #### L [id number] #### [facility] ([facility]) [address] [place] [address] Hematocrit (Bld) [Volume fraction] 38.7 % Low 39.0-55.0 [facility] Comment on above: Performed By: #### L [id number] #### [facility] ([facility]) [address] [place] [address] Hemoglobin (Bld) [Mass/Vol] 12.7 g/dL Low 13.0-17.0 [facility] Comment on above: Performed By: #### L [id number] #### [facility] ([facility]) [address] [place] [address] MCH (RBC) [Entitic mass] 31.8 pg Normal 27.0-33.0 [facility] Comment on above: Performed By: #### L [id number] #### [facility] ([facility]) [address] [place] [address] MCV (RBC) [Entitic vol] 97.0 fL Normal 82.0-98.0 [facility] Comment on above: Performed By: #### L [id number] #### [facility] ([facility]) [address] [place] [address] PLATELETS (10*3/UL) IN BLOOD AUTOMATED COUNT 148 10*3/uL Low 150-400 [facility] Comment on above: Performed By: #### L [id number] #### [facility] ([facility]) [address] [place] [address] RBC (Bld) [#/Vol] 3.99 10*6/uL Low 4.20-5.70 [facility] Comment on above: Performed By: #### L [id number] #### [facility] ([facility]) [address] [place] [place] [address] WBC (Bld) [#/Vol] 7.82 10*3/uL Normal 4.00-10.60 [facility] Comment on above: Performed By: #### L [id number] #### [facility] ([facility]) [address] [place] [address] Marian 11-17-2023 ANES -- Attestation signed by [...] soft Anesthesia Plan Additional Equipment Requests Normal [facility] BASIC METABOLIC PANELon 10-23 Anion gap [Moles/Vol] 11 mmol/L Normal 7-20 [facility] Comment on above: Performed By: #### L [id number] #### [facility] ([facility]) [address] [place] [address] Calcium [Mass/Vol] 8.0 mg/dL Low 8.6-10.[address] [facility] Comment on above: Performed By: #### L [id number] #### [facility] ([facility]) [address] [place] [address] Chloride [Moles/Vol] 109 mmol/L High 98-107 [facility] Comment on above: Performed By: #### L [id number] #### [facility] ([facility]) [address] [place] [address] CO2 [Moles/Vol] 25 mmol/L Normal 21-31 [facility] Comment on above: Performed By: #### L [id number] #### [facility] ([facility]) [address] [place] [address] Creatinine [Mass/Vol] 1.42 mg/dL High 0.70-1.30 [facility] Comment on above: Performed By: #### L [id number] #### [facility] ([facility]) [address] [place] [address] GLOMERULAR FILTRATION RATE ML/MIN/1.73 SQ M.PREDICTED 48.4 mL/min/1.73m*2 Low >60.0 [facility] Comment on above: Result Comment: The [facility]???s estimated glomerular filtration rate (eGFR) [...] individuals. Performed By: #### L [id number] #### [facility] ([facility]) [address] [place] [address] Glucose [Mass/Vol] 169 mg/dL High 70-[address] [facility] Comment on above: Performed By: #### L [id number] #### [facility] ([facility]) [address] [place] [address] Potassium [Moles/Vol] 4.3 mmol/L Normal 3.5-5.1 [facility] Comment on above: Performed By: #### L [id number] #### [facility] ([facility]) [address] [place] [address] Sodium [Moles/Vol] 141 mmol/L Normal 136-[address] [facility] Comment on above: Performed By: #### L [id number] #### [facility] ([facility]) [address] [place] [address] Urea nitrogen [Mass/Vol] 33 mg/dL High 7-25 [facility] Comment on above: Performed By: #### L [id number] #### [facility] ([facility]) [address] [place] [address] UREA NITROGEN/CREATININ E (MASS RATIO) IN SER/PLAS 23.2 Normal [facility] Comment on above: Performed By: #### L [id number] #### [facility] ([facility]) [address] [place] [address] CBCon 11-17-2023 Erythrocyte distribution width (RBC) [Ratio] 14.9 % Normal 11.5-15.0 [facility] Comment on above: Performed By: #### L [id number] #### [facility] ([facility]) [address] [place] [address] ERYTHROCYTE MEAN CORPUSCULAR HEMOGLOBIN CONCENTRATION (G/DL) BY AUTOMATED 32.2 g/dL Normal 32.0-35.0 [facility] Comment on above: Performed By: #### L [id number] #### [facility] ([facility]) [address] [place] [address] Hematocrit (Bld) [Volume fraction] 39.5 % Normal 39.0-55.0 [facility] Comment on above: Performed By: #### L [id number] #### [facility] ([facility]) [address] [place] [address] Hemoglobin (Bld) [Mass/Vol] 12.7 g/dL Low 13.0-17.0 [facility] Comment on above: Performed By: #### L [id number] #### [facility] ([facility]) [address] [place] [address] MCH (RBC) [Entitic mass] 31.8 pg Normal 27.0-33.0 [facility] Comment on above: Performed By: #### L [id number] #### [facility] ([facility]) [address] [place] [address] MCV (RBC) [Entitic vol] 99.0 fL High 82.0-98.0 [facility] Comment on above: Performed By: #### L [id number] #### [facility] ([facility]) [address] [place] [address] PLATELETS (10*3/UL) IN BLOOD AUTOMATED COUNT 157 10*3/uL Normal 150-400 [facility] Comment on above: Performed By: #### L [id number] #### [facility] ([facility]) [address] [place] [address] RBC (Bld) [#/Vol] 3.99 10*6/uL Low 4.20-5.70 [facility] Comment on above: Performed By: #### L [id number] #### [facility] ([facility]) [address] [place] [address] WBC (Bld) [#/Vol] 9.04 10*3/uL Normal 4.00-10.60 [facility] Comment on above: Performed By: #### L [id number] #### [facility] ([facility]) [address] [place] [address] HEMOGLOBIN A1Con 11-17-2023 Glucose [Mass/Vol] 114 mg/dL Normal [facility] Comment on above: Order Comment: NO VA RIANT Performed By: #### L [id number] ####[facility] ([facility])[address] [place] [address] HbA1c (Bld) [Mass fraction] 5.6 % Normal 4.0-6.0 [facility] Comment on above: Order Comment: NO VA RIANT Performed By: #### L [id number] ####[facility] ([facility])[address] [place] [address] HPon 11-17-2023 HP -- Attestation signed by [...] placement of PPM in the AM. Normal [facility] LIPID PANELon 11-17-2023 CHOL/HDL 3.8 mg/dL Normal [facility] Comment on above: Performed By: #### L [id number] ####[facility] ([facility])[address] [place] [address] Cholesterol [Mass/Vol] 127 mg/dL Normal 120-200 [facility] Comment on above: Performed By: #### L [id number] ####[facility] ([facility])[address] [place] [address] Magnesium [Mass/Vol] 81 mg/dL Normal 40-149 [facility] Comment on above: Result Comment: TRIG LYCERIDE REFERENCE RANGE: 20 YEARS AND OLDER CARDIOVASCULAR RISK LESS THAN 150 mg/dL LOW RISK 150 TO 199 mg/dL BORDERLINE RISK 200 mg/dL AND GREATER HIGH RISK Performed By: #### L [id number] ####[facility] ([facility])[address] [place] [address] Magnesium [Mass/Vol] 78 mg/dL Normal 0-160 [facility] Comment on above: Performed By: #### L [id number] ####[facility] ([facility])[address] [place] [address] Magnesium [Mass/Vol] 33 mg/dL Normal 23-92 [facility] Comment on above: Performed By: #### L [id number] ####[facility] ([facility])[address] [place] [address] NON HDL CHOL. (LDL+VLDL) 94 Normal [facility] Comment on above: Performed By: #### L [id number] ####[facility] ([facility])[address] [place] [address] TOTAL VLDL-C 16 mg/dL Normal 0-40 [facility] Comment on above: Performed By: #### L [id number] ####[facility] ([facility])[address] [place] [address] LIPOPROTEIN A (LPA)on 2023 Magnesium [Mass/Vol] 23 mg/dL Normal <=29 [facility] Comment on above: Result Comment: Perf ormed By: [employer] [address] [place] [id number] Junior [employer] Systems Administrator: Rivas Castillo MD, PhD CLIA Number: [id number] Performed By: #### L [id number] #### [facility] ([facility]) [address] [place] [address] MAGNESIUMon 11-17-2023 Magnesium [Mass/Vol] 2.0 mg/dL Normal 1.9-2.7 [facility] Comment on above: Performed By: #### L [id number] ####[facility] ([facility])[address] [place] [address] PHOSPHORUSon 11-17-2023 Magnesium [Mass/Vol] 3.1 mg/dL Normal 2.5-5.0 [facility] Comment on above: Performed By: #### L [id number] #### [facility] ([facility]) [address] [place] [address] 30on 11-16-2023 30 The patient is Moderately [...] or at baseline Outcome: Not Progressing Normal [facility] ANESon 11-16-2023 ANES Patient: Nat [...] Jovita Sanchez MD, MPH, FACC, [facility], [facility] Interventional Cardiology Pager Email: [email or web address] Normal [facility] B-TYPE NATRIURETIC PEPTIDEon 11-16-2023 Natriuretic peptide B (Bld) [Mass/Vol] 103 pg/mL High 0-100 [facility] Comment on above: Performed By: #### L [id number] #### [facility] ([facility]) [address] [place] [address] BASIC METABOLIC PANELon 10-23 Anion gap [Moles/Vol] 10 mmol/L Normal 7-20 [facility] Comment on above: Performed By: #### L [id number] #### [facility] ([facility]) [address] [place] [address] Calcium [Mass/Vol] 8.2 mg/dL Low 8.6-10.[address] [facility] Comment on above: Performed By: #### L [id number] #### [facility] ([facility]) [address] [place] [address] Chloride [Moles/Vol] 108 mmol/L High 98-107 [facility] Comment on above: Performed By: #### L [id number] #### [facility] ([facility]) [address] [facility] [place] [address] CO2 [Moles/Vol] 27 mmol/L Normal 21-31 [facility] Comment on above: Performed By: #### L [id number] #### [facility] ([facility]) [address] [facility] [address] Creatinine [Mass/Vol] 1.53 mg/dL High 0.70-1.30 [facility] Comment on above: Performed By: #### L [id number] #### [facility] ([facility]) [address] [place] [address] GLOMERULAR FILTRATION RATE ML/MIN/1.73 SQ M.PREDICTED 44.3 mL/min/1.73m*2 Low >60.0 [facility] Comment on above: Result Comment: [facility]???s estimated glomerular filtration rate (eGFR) [...] individuals. Performed By: #### L [id number] #### [facility] ([facility]) [address] [place] [address] Glucose [Mass/Vol] 124 mg/dL High 70-[address] [facility] Comment on above: Performed By: #### L [id number] #### [facility] ([facility]) [address] [place] [address] Potassium [Moles/Vol] 4.3 mmol/L Normal 3.5-5.1 [facility] Comment on above: Performed By: #### L [id number] #### [facility] ([facility]) [address] [place] [address] Sodium [Moles/Vol] 141 mmol/L Normal 136-[address] [facility] Comment on above: Performed By: #### L [id number] #### [facility] ([facility]) [address] [place] [address] Urea nitrogen [Mass/Vol] 31 mg/dL High 7-25 [facility] Comment on above: Performed By: #### L [id number] #### [facility] ([facility]) [address] [place] [address] UREA NITROGEN/CREATININ E (MASS RATIO) IN SER/PLAS 20.3 Normal [facility] Comment on above: Performed By: #### L [id number] #### [facility] ([facility]) [address] [place] [address] Anion gap [Moles/Vol] 10 mmol/L Normal 7-20 [facility] Comment on above: Performed By: #### L [id number] #### [facility] ([facility]) [address] [place] [address] Calcium [Mass/Vol] 8.1 mg/dL Low 8.6-10.[address] [facility] Comment on above: Performed By: #### L [id number] #### [facility] ([facility]) [address] [place] [address] Chloride [Moles/Vol] 108 mmol/L High 98-107 [facility] Comment on above: Performed By: #### L [id number] #### [facility] ([facility]) [address] [place] [address] CO2 [Moles/Vol] 27 mmol/L Normal 21-31 [facility] Comment on above: Performed By: #### L [id number] #### [facility] ([facility]) [address] [place] [address] Creatinine [Mass/Vol] 1.40 mg/dL High 0.70-1.30 [facility] Comment on above: Performed By: #### L [id number] #### [facility] ([facility]) [address] [place] [address] GLOMERULAR FILTRATION RATE ML/MIN/1.73 SQ M.PREDICTED 49.3 mL/min/1.73m*2 Low >60.0 [facility] Comment on above: Result Comment: [facility]???s estimated glomerular filtration rate (eGFR) [...] individuals. Performed By: #### L [id number] #### [facility] ([facility]) [address] [place] [address] Glucose [Mass/Vol] 136 mg/dL High 70-[address] [facility] Comment on above: Performed By: #### L [id number] #### [facility] ([facility]) [address] [place] [address] Potassium [Moles/Vol] 4.3 mmol/L Normal 3.5-5.1 [facility] Comment on above: Performed By: #### L [id number] #### [facility] ([facility]) [address] [facility] [address] Sodium [Moles/Vol] 141 mmol/L Normal 136-[address] [facility] Comment on above: Performed By: #### L [id number] #### [facility] ([facility]) [address] [place] [address] Urea nitrogen [Mass/Vol] 27 mg/dL High 7-25 [facility] Comment on above: Performed By: #### L [id number] #### [facility] ([facility]) [address] [facility] [place] [address] UREA NITROGEN/CREATININ E (MASS RATIO) IN SER/PLAS 19.3 Normal [facility] Comment on above: Performed By: #### L [id number] #### [facility] ([facility]) [address] [place] [address] CBCon 11-16-2023 Erythrocyte distribution width (RBC) [Ratio] 15.1 % High 11.5-15.0 [facility] Comment on above: Performed By: #### L [id number] #### [facility] ([facility]) [address] [place] [address] ERYTHROCYTE MEAN CORPUSCULAR HEMOGLOBIN CONCENTRATION (G/DL) BY AUTOMATED 32.4 g/dL Normal 32.0-35.0 [facility] Comment on above: Performed By: #### L [id number] #### [facility] ([facility]) [address] [place] [address] Hematocrit (Bld) [Volume fraction] 36.7 % Low 39.0-55.0 [facility] Comment on above: Performed By: #### L [id number] #### [facility] ([facility]) [address] [place] [address] Hemoglobin (Bld) [Mass/Vol] 11.9 g/dL Low 13.0-17.0 [facility] Comment on above: Performed By: #### L [id number] #### [facility] ([facility]) [address] [place] [address] MCH (RBC) [Entitic mass] 32.0 pg Normal 27.0-33.0 [facility] Comment on above: Performed By: #### L [id number] #### [facility] ([facility]) [address] [place] [address] MCV (RBC) [Entitic vol] 98.7 fL High 82.0-98.0 [facility] Comment on above: Performed By: #### L [id number] #### [facility] ([facility]) [address] [place] [address] PLATELETS (10*3/UL) IN BLOOD AUTOMATED COUNT 157 10*3/uL Normal 150-400 [facility] Comment on above: Performed By: #### L [id number] #### [facility] ([facility]) [address] [place] [address] RBC (Bld) [#/Vol] 3.72 10*6/uL Low 4.20-5.70 [facility] Comment on above: Performed By: #### L [id number] #### [facility] ([facility]) [address] [place] [address] WBC (Bld) [#/Vol] 8.83 10*3/uL Normal 4.00-10.60 [facility] Comment on above: Performed By: #### L [id number] #### [facility] ([facility]) [address] [address] HPon 11-16-2023 H&P reviewed. Apparently this morning, [...] wishes to proceed. Jovita Sanchez MD, MPH, [facility], [facility], [facility] Interventional Cardiology Pager Email: [email or web address] .[facility] HP -- Attestation signed by Art Mckoy [...] which are billed separately. Art Mckoy MD [facility] Pulmonary and Critical Care Medicine Adult ICU History & Physical Patient - Nat Moore Age - 83 y.[facility] 1940 [id number] Date of Admission - 11/15/2023 2:42 PM Chief Complaint Syncope History of Present Illness Nat Moore is a an 83-year-old gentleman with PMH significant for type 2 diabetes mellitus, essential hypertension, hyperlipidemia, CKD stage IIIa, bilateral lower extremity edema on diuretic therapy, osteoarthritis, depression and mild cognitive impairment was initially admitted to the hospitalist service from [place] due to recurrent episodes of syncope secondary [...] his presenting complaints. During his stay in [place] ED he suddenly developed bradycardia prolonged sinus [...] of the abdomen with contrast done at [place] ED showed nonobstructive bowel gas pattern with [...] planning on taking the patient to the Optometrist/Practice Owner tomorrow for possible transvenous pacemaker placement. PMH: [...] sodium (C (more content not included)... Normal [facility] LACTIC ACID WITH 4 HOUR REFL EXon 11-16-2023 LACTATE (MMOL/L) IN SER/PLAS 1.2 mmol/L Normal 0.5-2.2 [facility] Comment on above: Performed By: #### L [id number] #### [facility] ([facility]) [address] [place] [address] MAGNESIUMon 11-16-2023 Magnesium [Mass/Vol] 2.1 mg/dL Normal 1.9-2.7 [facility] Comment on above: Performed By: #### L [id number] #### [facility] ([facility]) [address] [place] [address] Magnesium [Mass/Vol] 1.7 mg/dL Low 1.9-2.7 [facility] Comment on above: Performed By: #### L [id number] #### [facility] ([facility]) [address] [place] [address] PRO-BNPon 11-16-2023 Natriuretic peptide B (Bld) [Mass/Vol] 576 pg/mL High 0-300 [facility] Comment on above: Result Comment: An a ge-independent cutoff point of 300 pg/ml has a 98% negative predictive value excluding acute heart failure. Test Performed by [employer] [address] [place] [id number] - Released 11/16/2023 20:27 Performed By: #### L [id number] ####[employer] [id number] [place] [address] TSH3 REFLEX TO FT4on 024 THYROTROPIN (MIU/L) IN SER/PLAS BY DETECTION LIMIT <= 0.05 MIU/L 1.67 mIU/L Normal 0.34-5.60 [facility] Comment on above: Performed By: #### L [id number] #### [facility] ([facility]) [address] [place] [address] 30on 11-15-2023 30 The patient is Moderately [...] and maintained or improved Outcome: Progressing Normal [facility] CBCon 11-15-2023 Erythrocyte distribution width (RBC) [Ratio] 15.2 % High 11.5-15.0 [facility] Comment on above: Performed By: #### L [id number] ####[facility] ([facility])[address] [address] ERYTHROCYTE MEAN CORPUSCULAR HEMOGLOBIN CONCENTRATION (G/DL) BY AUTOMATED 32.8 g/dL Normal 32.0-35.0 [facility] Comment on above: Performed By: #### L [id number] ####[facility] ([facility])[address] [address] Hematocrit (Bld) [Volume fraction] 37.8 % Low 39.0-55.0 [facility] Comment on above: Performed By: #### L [id number] ####[facility] ([facility])[address] [address] Hemoglobin (Bld) [Mass/Vol] 12.4 g/dL Low 13.0-17.0 [facility] Comment on above: Performed By: #### L [id number] ####[facility] ([facility])[address] [place] [address] MCH (RBC) [Entitic mass] 31.9 pg Normal 27.0-33.0 [facility] Comment on above: Performed By: #### L [id number] ####[facility] ([facility])[address] [address] MCV (RBC) [Entitic vol] 97.2 fL Normal 82.0-98.0 [facility] Comment on above: Performed By: #### L [id number] ####[facility] ([facility])[address] [place] [address] PLATELETS (10*3/UL) IN BLOOD AUTOMATED COUNT 172 10*3/uL Normal 150-400 [facility] Comment on above: Performed By: #### L [id number] ####[facility] ([facility])[address] [place] [address] RBC (Bld) [#/Vol] 3.89 10*6/uL Low 4.20-5.70 [facility] Comment on above: Performed By: #### L [id number] ####[facility] ([facility])[address] [place] [address] WBC (Bld) [#/Vol] 8.89 10*3/uL Normal 4.00-10.60 [facility] Comment on above: Performed By: #### L [id number] ####[facility] ([facility])[address] [place] [address] COMPREHENSIVE METABOLIC PANE Dmitri 11-15-2023 Albumin [Mass/Vol] 3.7 g/dL Normal 3.5-5.[address] [facility] Comment on above: Performed By: #### L [id number] #### [facility] ([facility]) [address] [place] [address] ALP [Catalytic activity/Vol] 70 U/L Normal 34-104 [facility] Comment on above: Performed By: #### L [id number] #### [facility] ([facility]) [address] [place] [address] ALT [Catalytic activity/Vol] 7 U/L Normal 7-52 [facility] Comment on above: Performed By: #### L [id number] #### [facility] ([facility]) [address] [place] [address] Anion gap [Moles/Vol] 9 mmol/L Normal 7-20 [facility] Comment on above: Performed By: #### L [id number] #### [facility] ([facility]) [address] [place] [address] AST [Catalytic activity/Vol] 11 U/L Low 13-39 [facility] Comment on above: Performed By: #### L [id number] #### [facility] ([facility]) [address] [place] [address] Bilirubin [Mass/Vol] 0.6 mg/dL Normal 0.3-1.0 [facility] Comment on above: Performed By: #### L [id number] #### [facility] ([facility]) [address] [place] [address] Calcium [Mass/Vol] 8.2 mg/dL Low 8.6-10.[address] [facility] Comment on above: Performed By: #### L [id number] #### [facility] ([facility]) [address] [place] [address] Chloride [Moles/Vol] 107 mmol/L Normal 98-107 [facility] Comment on above: Performed By: #### L [id number] #### [facility] ([facility]) [address] [place] [address] CO2 [Moles/Vol] 29 mmol/L Normal 21-31 [facility] Comment on above: Performed By: #### L [id number] #### [facility] ([facility]) [address] [place] [address] Creatinine [Mass/Vol] 1.37 mg/dL High 0.70-1.30 [facility] Comment on above: Performed By: #### L [id number] #### [facility] ([facility]) [address] [place] [address] GLOMERULAR FILTRATION RATE ML/MIN/1.73 SQ M.PREDICTED 50.6 mL/min/1.73m*2 Low >[address].0 [facility] Comment on above: Result Comment: The [facility]???s estimated glomerular filtration rate (eGFR) [...] individuals. Performed By: #### L [id number] #### [facility] ([facility]) [address] [place] [address] Glucose [Mass/Vol] 120 mg/dL High 70-[address] [facility] Comment on above: Performed By: #### L [id number] #### [facility] ([facility]) [address] [place] [address] Potassium [Moles/Vol] 4.1 mmol/L Normal 3.5-5.1 [facility] Comment on above: Performed By: #### L [id number] #### [facility] ([facility]) [address] [place] [address] Protein [Mass/Vol] 6.0 g/dL Normal 6.0-8.[address] [facility] Comment on above: Performed By: #### L [id number] #### [facility] ([facility]) [address] [place] [address] Sodium [Moles/Vol] 141 mmol/L Normal 136-[address] [facility] Comment on above: Performed By: #### L [id number] #### [facility] ([facility]) [address] [place] [address] Urea nitrogen [Mass/Vol] 26 mg/dL High 7-25 [facility] Comment on above: Performed By: #### L [id number] #### [facility] ([facility]) [address] [place] [address] UREA NITROGEN/CREATININ E (MASS RATIO) IN SER/PLAS 19.0 Normal [facility] Comment on above: Performed By: #### L [id number] #### [facility] ([facility]) [address] [place] [address] CONSULTon 11-15-2023 CONSULT Division of Cardiovascular Medicine Interventional Cardiology Consult Chief Complaint: Transfer from [place] HPI: 83 yo with h/o HTN, CKD, dyslipidemia presented to [facility] with c/o chest and back pain. While being evaluated he had episodes of prolonged sinus pauses (12-18 sec?) with loss of consciousness and vomiting. He was Life flighted to [facility]. On arrival , I evaluated him [...] infarctions or CHF. Does not see a vp production. Patient Active Problem List Diagnosis Syncope and [...] plan on (more content not included)... Normal [facility] CT HEAD WO IV CONTRASTon [...] GAGANDEEP CLAUDIO MD. 3 Invalid Interpretation Code [facility] HPon 11-15-2023 Division of Cardiovascular Medicine Interventional Cardiology Consult Chief Complaint: Transfer from [place] HPI: 83 yo with h/o HTN, CKD, dyslipidemia presented to [facility] with c/o chest and back pain. While being evaluated he had episodes of prolonged sinus pauses (12-18 sec?) with loss of consciousness and vomiting. He was Life flighted to [facility]. On arrival , I evaluated him [...] infarctions or CHF. Does not see a vp production. Patient Active Problem List Diagnosis Syncope and [...] plan on (more content not included)... Normal [facility] MAGNESIUMon 11-15-2023 Magnesium [Mass/Vol] 1.7 mg/dL Low 1.9-2.7 [facility] Comment on above: Performed By: #### L [id number] #### [facility] ([facility]) [address] [place] [address] LUKASNOTEon 11-15-2023 NURSNOTBernardo Gas [employer] M[employer] Installer reach out to Cardiology (Dr. Figueroa) to notify her of the pt transferring to MICU due to change in condition and code blue being called. She asked if the patient was paced at bedside and nurse replied no but pt was transferred and will be paced in MICU. Normal [facility] NURSNOTE [employer]er attempted to reach out to family via home number in chart and it wasn't in service. Charge nurse MIGUEL Lloyd was notified and MICU was notified as well by MIGUEL Lloyd. Normal [facility] ELEIL Bedside report given to MIGUEL Ghosh prior to transfer to MICU due to change in condition and code blue being called for asystole lasting 10.19 seconds. Normal [facility] ELIEL Spoke with Dr. Wendy [...] done and we'll go from there. Normal [facility] TROPONIN Ion 11-15-2023 Troponin I.cardiac [Mass/Vol] 0.01 ng/mL Normal 0.00-0.04 [facility] Comment on above: Performed By: #### L [id number] #### [facility] ([facility]) [address] [place] [address] HbA1c (Bld) [Mass fraction]o n 11-13-2023 [facility] - Hematology and Cell countson 11-13-2023 HbA1c (Bld) [Mass fraction] 5.8 % [facility] Urology Office/Clinic Noteon 11-12-2023 Urology Office/Clinic Note [...] call if too cost prohibitive, sent to [employer] Stefan Hutchins -f/up in 3 mos 2. [...] 23-valent vac (more content not included)... Normal [facility] Comment on above: Result Comment: Elec [...] APRN, Marianela Rodriguez Where: [facility] [address] [address]- You Need to Schedule the Following Appointments [...] Leaking ur (more content not included)... Normal [facility] [place] [facility] [place] [facility] October 14, 2023 NAT Tran [facility] [address] [place] [address] : 1940 Dear Nat, You missed your [...] your consideration regarding any future cancellations. Sincerely, [facility] [employer] [facility], [facility] [place] [address] [facility] Patient Letter FTon 2023 Patient Letter [facility] May 13, [address] [place] [address] : 1940 Dear Nat, You missed your [...] your consideration regarding any future cancellations. Sincerely, [facility] [employer] [facility], [place] [address] [facility] BNPon 07-27-2022 Natriuretic peptide B (Bld) [Mass/Vol] 178.0 pg/mL Normal <=1,800.0 [facility] Comment on above: Performed By: #### C MP, BNP, CMADM #### [facility] [address] [place] [address] Dr. Loyd Parks CARDIAC SPARKLE ADMITon 023 CK [Catalytic activity/Vol] 50 U/L Normal 39-308 [facility] Comment on above: Performed By: #### C MP, BNP, CMADM #### [facility] [address] [place] [address] Dr. Loyd Parks CK.MB [Mass/Vol] 0.83 ng/mL Normal <=3.60 [facility] Comment on above: Performed By: #### C MP, BNP, CMADM #### [facility] [address] [place] [address] Dr. Loyd Parks HSTROP 6.3 pg/mL Normal 4.0-76.1 [facility] Comment on above: Result Comment: CUT- OFF POINTS HAVE BEEN ESTABLISHED BASED ON THE FOURTH UNIVERSAL DEFINITIONS OF MYOCARDIAL INFARCTION. THE UPPER REFERENCE LIMIT (URL) OF TROPONIN, DEFINED THE 99TH PERCENTILE OF cTnI DISTRIBUTION IN A REFERENCE POPULATION, HAS BEEN CONFIRMED THE DECISION THRESHOLD FOR [place] DIAGNOSIS. Performed By: #### C MP, BNP, CMADM #### [facility] [address] [place] [address] Dr. Loyd Parks WM 121 ng/mL Critically high 16-96 [facility] Comment on above: Performed By: #### C MP, BNP, CMADM #### [facility] [address] [place] [address] Dr. Loyd Parks CBC AUTO DIFFon 07-27-2022 BASO # 0.1 103/ul Normal 0.0-0.1 [facility] Comment on above: Performed By: #### C BC #### [facility] [address] [place] [address] Dr. Loyd Parks Basophils/100 WBC (Bld) 0.6 % Normal 0.2-2.0 [facility] Comment on above: Performed By: #### C BC #### [facility] [address] [place] [address] Dr. Loyd Parks EO # 0.5 103/ul Normal 0.0-0.7 [facility] Comment on above: Performed By: #### C BC #### [facility] [address] [place] [address] Dr. Loyd Parks Eosinophils/100 WBC (Bld) 4.8 % Normal 0.9-7.0 [facility] Comment on above: Performed By: #### C BC #### [facility] [address] [place] [address] Dr. Loyd Parks Erythrocyte distribution width (RBC) [Ratio] 13.5 % Normal 11.0-15.0 [facility] Comment on above: Performed By: #### C BC #### [facility] [address] [place] [address] Dr. Loyd Parks Hematocrit (Bld) [Volume fraction] 39.7 % Critically low 42.0-54.0 [facility] Comment on above: Performed By: #### C BC #### [facility] [address] [place] [address] Dr. Loyd Parks Hemoglobin (Bld) [Mass/Vol] 13.1 g/dL Critically low 14.0-18.0 [facility] Comment on above: Performed By: #### C BC #### [facility] [address] [place] [address] Dr. Loyd Parks IG # 0.05 10e3/ul Critically high 0.00-0.03 [facility] Comment on above: Performed By: #### C BC #### [facility] [address] [place] [address] Dr. Loyd Parks IG % 0.5 % Normal 0.0-0.5 [facility] Comment on above: Performed By: #### C BC #### [facility] [address] [place] [address] Dr. Loyd Parks LYMPH # 1.4 103/ul Normal 1.2-3.8 [facility] Comment on above: Performed By: #### C BC #### [facility] [address] [place] [address] Dr. Loyd Parks Lymphocytes/100 WBC (Bld) 14.1 % Critically low 20.5-60.0 [facility] Comment on above: Performed By: #### C BC #### [facility] [address] [place] [address] Dr. Loyd Parks MANUAL DIFF REQ NO Normal [facility] Comment on above: Performed By: #### C BC #### [facility] [address] [place] [address] Dr. Loyd Parks MCH (RBC) [Entitic mass] 31.6 pg Normal 25.9-34.0 [facility] Comment on above: Performed By: #### C BC #### [facility] [address] [place] [address] Dr. Loyd Parks MCHC (RBC) [Mass/Vol] 33.0 g/dL Normal 29.9-35.2 [facility] Comment on above: Performed By: #### C BC #### [facility] [address] [place] [address] Dr. Loyd Parks MCV (RBC) [Entitic vol] 95.7 fL Critically high 80.0-94.0 [facility] Comment on above: Performed By: #### C BC #### [facility] [address] [place] [address] Dr. Loyd Parks MONO # 1.0 103/ul Critically high 0.3-0.8 [facility] Comment on above: Performed By: #### C BC #### [facility] [address] [place] [address] Dr. Loyd Parks Monocytes/100 WBC (Bld) 9.7 % Normal 1.7-12.0 [facility] Comment on above: Performed By: #### C BC #### [facility] [address] [place] [address] Dr. Loyd Parks NEUT # 7.2 103/ul Critically high 1.4-6.5 [facility] Comment on above: Performed By: #### C BC #### [facility] [address] [place] [address] Dr. Loyd Parks Neutrophils/100 WBC (Bld) 70.3 % Normal 43.0-75.0 [facility] Comment on above: Performed By: #### C BC #### [facility] [address] [place] [address] Dr. Loyd Parks Platelet mean volume (Bld) [Entitic vol] 10.8 fL Normal 9.5-13.5 [facility] Comment on above: Performed By: #### C BC #### [facility] [address] [place] [address] Dr. Loyd Parks PLT 199 103/ul Normal 150-450 [facility] Comment on above: Performed By: #### C BC #### [facility] [address] [place] [address] Dr. Loyd Parks RBC 4.15 106/ul Critically low 4.70-6.10 [facility] Comment on above: Performed By: #### C BC #### [facility] [address] [place] [address] Dr. Loyd Parks WBC 10.2 103/ul Normal 4.0-11.0 [facility] Comment on above: Performed By: #### C BC #### [facility] [address] [place] [address] Dr. Loyd Parks CULTURE BLOODon 07-27-2022 Microscopic examination of blood, culture Culture Observations: NO GROWTH AT 5 DAYS. Normal [facility] Comment on above: Performed By: #### E RUR #### [facility] [address] [place] [address] Dr. Loyd Parks Covid-19 PCR ([facility])on SARS-CoV-2 (COVID-19) RNA SAUNDRA+probe Ql (Unsp spec) Not detected Normal NOT DETECTED [facility] Comment on above: Result Comment: This test is not yet approved or cleared by the [place] FDA. When there are no FDA-approved or cleared tests available, and other criteria are met, FDA can make tests available under an emergency access mechanism called an Emergency Use Authorization (EUA). The EUA for this test is supported by the [place] of Health and Human Service's (HHS's) declaration [...] SARS-CoV-2. Performed By: #### E RUR #### [facility] [address] [place] [address] Dr. Loyd Parks LACTATE/LACTIC ACIDon 2022 Lactate [Moles/Vol] 2.2 mmol/L Critically high 0.4-2.0 [facility] Comment on above: Performed By: #### C MP, BNP, CMADM #### [facility] [address] [place] [address] Dr. Loyd Parks PROF 14(COMP METB)on 023 Albumin [Mass/Vol] 3.3 g/dL Critically low 3.4-5.0 [facility] Comment on above: Performed By: #### C MP, BNP, CMADM #### [facility] [address] [place] [address] Dr. Loyd Parks Albumin/Globulin [Mass ratio] 0.9 {ratio} Normal [facility] Comment on above: Performed By: #### C MP, BNP, CMADM #### [facility] [address] [place] [address] Dr. Loyd Parks ALP [Catalytic activity/Vol] 91 U/L Normal 46-116 [facility] Comment on above: Performed By: #### C MP, BNP, CMADM #### [facility] [address] [place] [address] Dr. Loyd Parks ALT [Catalytic activity/Vol] 18 U/L Normal 16-63 [facility] Comment on above: Performed By: #### C MP, BNP, CMADM #### [facility] [address] [address] [address] Loyd Parks Anion gap [Moles/Vol] 12.2 mmol/L Normal [facility] Comment on above: Performed By: #### C MP, BNP, CMADM #### [facility] [address] [place] [address] Dr. Loyd Parks AST [Catalytic activity/Vol] 15 U/L Normal 15-37 [facility] Comment on above: Performed By: #### C MP, BNP, CMADM #### [facility] [address] [place] [address] Dr. Loyd Parks Bilirubin [Mass/Vol] 0.4 mg/dL Normal 0.2-1.0 [facility] Comment on above: Performed By: #### C MP, BNP, CMADM #### [facility] [address] [place] [address] Dr. Loyd Parks Calcium [Mass/Vol] 8.7 mg/dL Normal 8.5-10.1 [facility] Comment on above: Performed By: #### C MP, BNP, CMADM #### [facility] [address] [place] [address] Dr. Loyd Parks Chloride [Moles/Vol] 105 mmol/L Normal 98-107 [facility] Comment on above: Performed By: #### C MP, BNP, CMADM #### [facility] [address] [place] [address] Dr. Loyd Parks CO2 [Moles/Vol] 28.0 mmol/L Normal 21.0-32.0 [facility] Comment on above: Performed By: #### C MP, BNP, CMADM #### [facility] [address] [place] [address] Dr. Loyd Parks Creatinine [Mass/Vol] 2.25 mg/dL Critically high 0.70-1.30 [facility] Comment on above: Performed By: #### C MP, BNP, CMADM #### [facility] [address] [place] [address] Dr. Loyd Parks EGFR-AF BRAZILIAN 34 mL/min/1.73m2 Critically low >=60 [facility] Comment on above: Performed By: #### C MP, BNP, CMADM #### [facility] [address] [address] [address] Loyd Parks EGFR-NON AF BRAZILIAN 28 mL/min/1.73m2 Critically low >=60 [facility] Comment on above: Performed By: #### C MP, BNP, CMADM #### [facility] [address] [address] [address] Loyd Parks Globulin (S) [Mass/Vol] 3.8 g/dL Normal [facility] Comment on above: Performed By: #### C MP, BNP, CMADM #### [facility] [address] [address] [address] Loyd Parks Glucose [Mass/Vol] 88 mg/dL Normal 74-106 [facility] Comment on above: Performed By: #### C MP, BNP, CMADM #### [facility] [address] [address] [address] Loyd Parks Potassium [Moles/Vol] 4.2 mmol/L Normal 3.5-5.1 [facility] Comment on above: Performed By: #### C MP, BNP, CMADM #### [facility] [address] [place] [address] Dr. Loyd Parks Protein [Mass/Vol] 7.1 g/dL Normal 6.4-8.2 [facility] Comment on above: Performed By: #### C MP, BNP, CMADM #### [facility] [address] [address] [address] Loyd Parks Sodium [Moles/Vol] 141 mmol/L Normal 136-145 [facility] Comment on above: Performed By: #### C MP, BNP, CMADM #### [facility] [address] [place] [address] Dr. Loyd Parks Urea nitrogen [Mass/Vol] 36.0 mg/dL Critically high 7.0-18.0 [facility] Comment on above: Performed By: #### C MP, BNP, CMADM #### [facility] [address] [place] [address] Dr. Loyd Parks Urea nitrogen/Creatinin e [Mass ratio] 16.0 mg/mg Normal [facility] Comment on above: Performed By: #### C MP, BNP, CMADM #### [facility] [address] [place] [address] Dr. Loyd Parks PROTIMEon 07-27-2022 INR Coag (PPP) [Relative time] 0.95 {INR} Normal [facility] Comment on above: Performed By: #### P T, PTT #### [facility] [address] [place] [address] Dr. Loyd Parks INR GUIDELINES SEE BELOW Normal [facility] Comment on above: Result Comment: MARIE RED INR: 2.0 - 3.0 CONDITIONS NOT LISTED BELOW 2.5 - 3.5 FOR PROSTHETIC HEART VALVE REPLACEMENT 2.5 - 3.5 RECURRENT THROMBOSIS Performed By: #### P T, PTT #### [facility] [address] [place] [address] Dr. Loyd Parks PT Coag (PPP) [Time] 10.1 s Normal 9.0-11.6 [facility] Comment on above: Performed By: #### P T, PTT #### [facility] [address] [place] [address] Dr. Loyd Parks PTTon 07-27-2022 aPTT Coag (Bld) [Time] 27.3 s Normal 22.3-36.2 [facility] Comment on above: Performed By: #### P T, PTT #### [facility] [address] [place] [address] Dr. Loyd Parks SYMPTOMATIC COVID-19 ANTIGEN on 07-27-2022 EUA Statement SEE BELOW Normal [facility] Comment on above: Result Comment: [...] sooner. Performed By: #### C VDAGS #### [facility] [address] [place] [address] Dr. Loyd Parks SARS-CoV-2 (COVID-19) RNA SAUNDRA+probe Ql (Unsp spec) Negative Normal NEGATIVE [facility] Comment on above: Performed By: #### C VDAGS #### [facility] [address] [place] [address] Dr. Loyd Parks XR CHEST 2 Von [...] ELIUD KAUR Date: 2022-07-26 22:19 Normal [facility] POINT OF CARE GLUCOSEon 03-25 Glucose [Mass/Vol] 102 mg/dL Normal 74-106 [facility] Comment on above: Performed By: #### C MP, BNP, CMADM #### [facility] [address] [place] [address] Dr. Loyd Parks ER URINE PROFILEon 2 Bilirubin Ql (U) Negative Normal NEGATIVE [facility] Comment on above: Performed By: #### E RUR #### [facility] [address] [place] [address] Dr. Loyd Parks Clarity (U) CLEAR Normal CLEAR [facility] Comment on above: Performed By: #### E RUR #### [facility] [address] [place] [address] Dr. Loyd Parks Color (U) LT. YELLOW Normal YELLOW [facility] Comment on above: Performed By: #### E RUR #### [facility] [address] [address] [address] Loyd CONWAY A micrscopic examination will be performed if indicated. Normal [facility] Comment on above: Performed By: #### E RUR #### [facility] [address] [place] [address] Dr. Loyd Parks Glucose Ql (U) 100 mg/dl Abnormal NEGATIVE [facility] Comment on above: Performed By: #### E RUR #### [facility] [address] [address] [address] Loyd Parks Hemoglobin Ql (U) Negative Normal NEGATIVE [facility] Comment on above: Performed By: #### E RUR #### [facility] [address] [place] [address] Dr. Loyd Parks Ketones Ql (U) Negative Normal NEGATIVE [facility] Comment on above: Performed By: #### E RUR #### [facility] [address] [place] [address] Dr. Loyd Parks LEUKOCYTES Negative Normal NEGATIVE [facility] Comment on above: Performed By: #### E RUR #### [facility] [address] [place] [address] Dr. Loyd Parks Nitrite Ql (U) Negative Normal NEGATIVE [facility] Comment on above: Performed By: #### E RUR #### [facility] [address] [place] [address] Dr. Loyd Parks pH (U) 5.5 [pH] Normal 5-9 [facility] Comment on above: Performed By: #### E RUR #### [facility] [address] [place] [address] Dr. Loyd Parks SPEC GRAVITY 1.015 Normal 1.005-<=1.025 [facility] Comment on above: Performed By: #### E RUR #### [facility] [address] [place] [address] Dr. Loyd Parks UA PROTEIN Negative Normal NEGATIVE/ TRACE [facility] Comment on above: Performed By: #### E RUR #### [facility] [address] [place] [address] Dr. Loyd Parks UR MICRO IND NOT INDICATED Normal [facility] Comment on above: Performed By: #### E RUR #### [facility] [address] [place] [address] Dr. Loyd Parks Urobilinogen Qn (U) 0.2 {Malcolm'U}/dL Normal 0.2 - 1.0 [facility] Comment on above: Performed By: #### E RUR #### [facility] [address] [place] [address] Dr. Loyd Parks GROUP A STREP CULTUREon 02-21 S. pyogenes Ag Ql (Unsp spec) Culture Observations: NEGATIVE FOR GROUP A STREPTOCOCCUS. Normal [facility] Comment on above: Performed By: #### S SCRN, GRASTCX #### [facility] [address] [place] [address] Dr. Loyd Parks STREPT SCREENon 03-03-2022 STREP SCREEN A Negative Normal NEGATIVE [facility] Comment on above: Performed By: #### S SCRN, GRASTCX #### [facility] [address] [place] [address] Dr. Loyd Parks Covid-19 PCR ([facility]on SARS-CoV-2 (COVID-19) RNA SAUNDRA+probe Ql (Unsp spec) Not detected Normal NOT DETECTED [facility] Comment on above: Result Comment: This test is not yet approved or cleared by the [place] FDA. When there are no FDA-approved or cleared tests available, and other criteria are met, FDA can make tests available under an emergency access mechanism called an Emergency Use Authorization (EUA). The EUA for this test is supported by the Offset Platemaker of Health and Human Service's (HHS's) declaration [...] By: #### C MP, BNP, CMADM #### [facility] [address] [place], [place] [address] Dr. Loyd Parks POINT OF CARE GLUCOSEon 12-22 Glucose [Mass/Vol] 133 mg/dL Critically high 74-106 [facility] Comment on above: Performed By: #### E RUR #### [facility] [address] [place], [place] [address] Dr. Loyd Parks POINT OF CARE GLUCOSEon Glucose [Mass/Vol] 75 mg/dL Normal 74-106 [facility] Comment on above: Performed By: #### E RUR #### [facility] [address] [address] [address] ABD/PELVIS WO CONon [...] SAURABH SINGH Date: 2021-09-03 08:35 Normal [facility] ER URINE PROFILEon 2 Bilirubin Ql (U) Negative Normal NEGATIVE [facility] Comment on above: Performed By: #### E RUR #### [facility] [address] [place] [address] Dr. Loyd Parks Clarity (U) CLEAR Normal CLEAR [facility] Comment on above: Performed By: #### E RUR #### [facility] [address] [address] [address] Loyd Parks Color (U) LT. YELLOW Normal YELLOW [facility] Comment on above: Performed By: #### E RUR #### [facility] [address] [address] [address] Loyd Parks ERUAHD A micrscopic examination will be performed if indicated. Normal [facility] Comment on above: Performed By: #### E RUR #### [facility] [address] [place] [address] Dr. Loyd Parks Glucose Ql (U) >1000 Abnormal NEGATIVE [facility] Comment on above: Performed By: #### E RUR #### [facility] [address] [place] [address] Dr. Loyd Parks Hemoglobin Ql (U) Negative Normal NEGATIVE [facility] Comment on above: Performed By: #### E RUR #### [facility] [address] [place] [address] Dr. Loyd Parks Ketones Ql (U) Negative Normal NEGATIVE [facility] Comment on above: Performed By: #### E RUR #### [facility] [address] [place] [address] Dr. Loyd Parks LEUKOCYTES Negative Normal NEGATIVE [facility] Comment on above: Performed By: #### E RUR #### [facility] [address] [place] [address] Dr. Loyd Parks Nitrite Ql (U) Negative Normal NEGATIVE [facility] Comment on above: Performed By: #### E RUR #### [facility] [address] [place] [address] Dr. Loyd Parks pH (U) 6.0 [pH] Normal 5-9 [facility] Comment on above: Performed By: #### E RUR #### [facility] [address] [place] [address] Dr. Loyd Parks SPEC GRAVITY 1.010 Normal 1.005-<=1.025 [facility] Comment on above: Performed By: #### E RUR #### [facility] [address] [place] [address] Dr. Loyd Parks UA PROTEIN Negative Normal NEGATIVE/ TRACE [facility] Comment on above: Performed By: #### E RUR #### [facility] [address] [place] [address] Dr. Loyd Parks UR MICRO IND NOT INDICATED Normal [facility] Comment on above: Performed By: #### E RUR #### [facility] [address] [place] [address] Dr. Loyd Parks Urobilinogen Qn (U) 0.2 {Malcolm'U}/dL Normal 0.2 - 1.0 [facility] Comment on above: Performed By: #### E RUR #### [facility] [address] [place], [place] [address] Dr. Loyd Parks ALCOHOLon 07-31-2020 Ethanol [Mass/Vol] mg/dL Normal [facility] Comment on above: Result Comment: FOR MEDICAL USE ONLY. . REF VALUES <10 Performed By: #### A LC ####[facility] [place] [address] CBC AND DIFFERENTIALon 07-31 % AUTOMATED IMMATURE GRAN 0.4 % Normal 0.0 - 0.9 [facility] Comment on above: Result Comment: Rylie ture Granulocyte Count (IG) includes promyelocytes, myelocytes and metamyelocytes but does not include bands. Percent differential counts (%) should be interpreted in the context of the absolute cell counts (cells/L). Performed By: #### C BCDF #### [facility] [address] [place] [address] Basophils (Bld) [#/Vol] 0.05 10*3/uL Normal 0.00 - 0.10 [facility] Comment on above: Performed By: #### C BCDF #### [facility] [address] [place] [address] Basophils/100 WBC (Bld) 0.6 % Normal 0.0 - 2.0 [facility] Comment on above: Performed By: #### C BCDF #### [facility] [address] [place] [address] Eosinophils (Bld) [#/Vol] 0.21 10*3/uL Normal 0.00 - 0.40 [facility] Comment on above: Performed By: #### C BCDF #### [facility] [address] [place] [address] Eosinophils/100 WBC (Bld) 2.4 % Normal 0.0 - 6.0 [facility] Comment on above: Performed By: #### C BCDF #### [facility] [address] [place] [address] Erythrocyte distribution width (RBC) [Ratio] 13.2 % Normal 11.5 - 14.5 [facility] Comment on above: Performed By: #### C BCDF #### [facility] [address] [place] [address] Hematocrit (Bld) [Volume fraction] 50.0 % Normal 41.0 - 52.0 [facility] Comment on above: Performed By: #### C BCDF #### [facility] [address] [facility] [place] [place] [address] Hemoglobin (Bld) [Mass/Vol] 17.3 g/dL Normal 13.5 - 17.5 [facility] Comment on above: Performed By: #### C BCDF #### [facility] [id number] [place], [place] [address] [address] Lymphocytes (Bld) [#/Vol] 1.59 10*3/uL Normal 0.80 - 3.00 [facility] Comment on above: Performed By: #### C BCDF #### [facility] [id number] [place] [address] Lymphocytes/100 WBC (Bld) 17.9 % Normal 13.0 - 44.0 [facility] Comment on above: Performed By: #### C BCDF #### [facility] [id number] [place] [address] MCHC (RBC) [Mass/Vol] 34.6 g/dL Normal 32.0 - 36.0 [facility] Comment on above: Performed By: #### C BCDF #### [facility] [address] [place] [address] MCV (RBC) [Entitic vol] 89 fL Normal 80 - 100 [facility] Comment on above: Performed By: #### C BCDF #### [facility] [address] [facility] [place] [place] [address] Monocytes (Bld) [#/Vol] 0.82 10*3/uL High 0.05 - 0.80 [facility] Comment on above: Performed By: #### C BCDF #### [facility] [address] [place] [address] Monocytes/100 WBC (Bld) 9.2 % Normal 2.0 - 10.0 [facility] Comment on above: Performed By: #### C BCDF #### [facility] [address] [place] [address] Neutrophils (Bld) [#/Vol] 6.18 10*3/uL High 1.60 - 5.50 [facility] Comment on above: Performed By: #### C BCDF #### [facility] [address] [place] [address] Neutrophils/100 WBC (Bld) 69.5 % Normal 40.0 - 80.0 [facility] Comment on above: Performed By: #### C BCDF #### [facility] [address] [place] [address] Platelets (Bld) [#/Vol] 215 10*3/uL Normal 150 - 450 [facility] Comment on above: Performed By: #### C BCDF #### [facility] [address] [place] [address] RBC 5.59 x10E12/L Normal 4.50 - 5.90 [facility] Comment on above: Performed By: #### C BCDF #### [facility] [address] [place] [address] WBC (Bld) [#/Vol] 8.9 10*3/uL Normal 4.4 - 11.3 [facility] Comment on above: Performed By: #### C BCDF #### [facility] [address] [place] [address] CHEST 1 VIEWon 07-31-2020 CHEST 1 VIEW STUDY: Chest Radiograph; 07/30/2020 10:53 PM INDICATION: Shortness of breath. COMPARISON: None available. ACCESSION NUMBER(S): [id number] ORDERING CLINICIAN: ZAID CUELLAR DO TECHNIQUE: Frontal chest was obtained at 2355 hours. FINDINGS: CARDIOMEDIASTINAL SILHOUETTE: Cardiomediastinal silhouette is normal in size and configuration. LUNGS: Lungs are clear. ABDOMEN: No remarkable upper abdominal findings. BONES: No acute osseous changes. IMPRESSION: No acute pulmonary abnormality. Signed by Rodrick Dulai, MD Electronically signed by: RODRICK ANNA MD Normal [facility] COMPREHENSIVE PANELon 2020 Albumin [Mass/Vol] 3.7 g/dL Normal 3.4 - 5.0 [facility] Comment on above: Performed By: #### C MP ####[facility] [place] [address] ALP [Catalytic activity/Vol] 80 U/L Normal 33 - 136 [facility] Comment on above: Performed By: #### C MP ####[facility] [place] [address] ALT [Catalytic activity/Vol] 12 U/L Normal 10 - 52 [facility] Comment on above: Result Comment: Jade ents treated with Sulfasalazine may generate falsely decreased results for ALT. Performed By: #### C MP ####[facility] [place] [address] Anion gap [Moles/Vol] 13 mmol/L Normal 10 - 20 [facility] Comment on above: Performed By: #### C MP ####[facility] [place] [address] AST [Catalytic activity/Vol] 12 U/L Normal 9 - 39 [facility] Comment on above: Performed By: #### C MP ####[facility] [place] [address] Bilirubin [Mass/Vol] 0.7 mg/dL Normal 0.0 - 1.2 [facility] Comment on above: Performed By: #### C MP ####[facility] [place] [address] Calcium [Mass/Vol] 9.2 mg/dL Normal 8.6 - 10.3 [facility] Comment on above: Performed By: #### C MP ####[facility] [place] [address] Chloride [Moles/Vol] 101 mmol/L Normal 98 - 107 [facility] Comment on above: Performed By: #### C MP ####[facility] [place] [address] Creatinine [Mass/Vol] 1.36 mg/dL High 0.50 - 1.30 [facility] Comment on above: Performed By: #### C MP ####[facility] [place] [address] GFR- AM. 61 mL/min/1.73m2 Normal >60 [facility] Comment on above: Result Comment: CALC ULATIONS OF ESTIMATED GFR ARE PERFORMED USING THE MDRD STUDY EQUATION FOR THE IDMS-TRACEABLE CREATININE METHODS. CLIN CHEM 2007;53:766-72 Performed By: #### C MP ####[facility] [place] [address] GFR-NON AM. 50 mL/min/1.73m2 Abnormal >60 [facility] Comment on above: Performed By: #### C MP ####[facility] [place] [address] Glucose [Mass/Vol] 390 mg/dL High 74 - 99 [facility] Comment on above: Performed By: #### C MP ####[facility] [place] [address] HCO3 (Bld) [Moles/Vol] 27 mmol/L Normal 21 - 32 [facility] Comment on above: Performed By: #### C MP ####[facility] [place] [address] Potassium [Moles/Vol] 4.1 mmol/L Normal 3.5 - 5.3 [facility] Comment on above: Performed By: #### C MP ####[facility] [place] [address] Protein [Mass/Vol] 6.8 g/dL Normal 6.4 - 8.2 [facility] Comment on above: Performed By: #### C MP ####[facility] [place] [address] Sodium [Moles/Vol] 137 mmol/L Normal 136 - 145 [facility] Comment on above: Performed By: #### C MP ####[facility] [facility] [place] [address] Urea nitrogen [Mass/Vol] 27 mg/dL High 6 - 23 [facility] Comment on above: Performed By: #### C MP ####[facility] [place] [address] CT HEAD WO CONTRASTon 2020 CT HEAD WO CONTRAST STUDY: CT Head without IV Contrast; 07/30/2020, 11:52 PM. INDICATION: Confusion, disorientation. COMPARISON: None Available. ACCESSION NUMBER(S): [id number] ORDERING CLINICIAN: ZAID CUELLAR DO TECHNIQUE: Noncontrast [...] Electronically signed by: RODRICK ANNA MD Normal [facility] MAGNESIUMon 07-31-2020 Magnesium [Mass/Vol] 2.04 mg/dL Normal 1.60 - 2.40 [facility] Comment on above: Performed By: #### M G #### [facility] [address] [place] [address] PT/INRon 07-31-2020 PT Coag (PPP) [Time] 12.0 s Normal 10.1 - 13.3 [facility] Comment on above: Performed By: #### P TINR #### [facility] [address] [place] [address] PT, INR 1.0 Normal 0.9 - 1.1 [facility] Comment on above: Performed By: #### P TINR #### [facility] [address] [place] [address] Provider Note - ED v2on 07-22 Provider Note - ED v2 Provider Note - ED v2: Chart Review: ED NOTES ED NOTES: History: This is an 80-year-old male presenting from the [facility] by [facility] for chief complaint of a medical evaluation. Patient left his home in [place] 3 days ago because he got into an argument with his and he has not been back since. He was finally located at a [facility] down the street when family called. [...] From Triage - ED 30-Jul-2020 23:17 Normal [facility] Risk Screen - Adult Emergenc yon [...] an injured patient at a Trauma Center ([facility]/[place]/yr ri/[facility]): no Electronic Signatures: Elizabeth Ivan (MIGUEL) (Signed 30-Jul-2020 23:24) Authored: Preferred Language, Advanced Directives, Family Violence Adult, Learning Assessment (Patient), Learning Assessment (Other Learner), Pressure Injury/TB/Substance, Pressure Injury, CAGE Last Updated: 30-Jul-2020 23:24 by Elizabeth Ivan (MIGUEL) Normal [facility] TROPONIN Ion 07-31-2020 Troponin I.cardiac [Mass/Vol] ng/mL Normal 0.00 - 0.03 [facility] Comment on above: Result Comment: LESS [...] testing methodology at [facility] than at other [facility]. Direct result comparisons should only be made within the same method. Performed By: #### T ROP2 #### [facility] [address] [place] [address] Triage - EDon 07-31-2020 Triage - ED [...] stretcher Mode of Arrival: ambulance Agency: [facility] Agency Name: Monica Accompanied By: internal control manager Language: Spoken Language Preferred: [place] Citizen Reading Language Preferred: [place] Citizen CHIEF COMPLAINT NAT MOORE is a Male patient with a chief complaint of altered mental status. Triage Date/Time: 30-Jul-2020 22:50 LAILA: 3 Pain Rating (0-10): 0 = None Vital Signs: Temperature: 96.8F ( 36.0C) taken temporal Blood Pressure: 166/103 Mean: Heart Rate: 94 Respiratory Rate: 18 Pulse Oximetry: 97% on room air, no respiratory support. Weight: 230.3 pounds. Calculated 104.5 kg. (stated) [place] Coma Scale: Best Eye Response: (E4) spontaneous Best Motor Response: (M6) obeys commands Best Verbal Response: (V5) oriented [place] Score: 15 Allergies: yes Patient has homicidal [...] 30-Jul-2020 23:23 by Elizabeth Ivan (RN) Normal [facility] UA MICROSCOPICon 07-31-2020 RBC 1 /HPF Normal 0-5 [facility] Comment on above: Performed By: #### U AMIC #### [facility] [address] [place] [address] SQUAMOUS EPITH. CELLS <1 Normal [facility] Comment on above: Performed By: #### U AMIC #### [facility] [address] [place] [address] WBC 22 /HPF Abnormal 0-5 [facility] Comment on above: Performed By: #### U AMIC #### [facility] [address] [place] [address] URINALYSISon 07-31-2020 Appearance (U) CLEAR Normal CLEAR [facility] Comment on above: Performed By: #### U A #### [facility] [address] [place] [address] Bilirubin Ql (U) Negative Normal NEGATIVE [facility] Comment on above: Performed By: #### U A #### [facility] [address] [place] [address] Color (U) STRAW Normal STRAW,YELLOW [facility] Comment on above: Performed By: #### U A #### [facility] [address] [place] [address] Glucose Ql (U) >=500(3+) Abnormal NEGATIVE [facility] Comment on above: Performed By: #### U A #### [facility] [address] [place] [address] Hemoglobin Ql (U) SMALL(1+) Abnormal NEGATIVE [facility] Comment on above: Performed By: #### U A #### [facility] [id number] [place] [address] Ketones Ql (U) Negative Normal NEGATIVE [facility] Comment on above: Performed By: #### U A #### [facility] [id number] [place] [address] Leukocyte esterase Test strip Ql (U) TRACE Abnormal NEGATIVE [facility] Comment on above: Performed By: #### U A #### [facility] [id number] [place] [address] Nitrite Ql (U) Negative Normal NEGATIVE [facility] Comment on above: Performed By: #### U A #### [facility] [id number] [place] [address] pH (U) 6.0 [pH] Normal 5.0 - 8.0 [facility] Comment on above: Performed By: #### U A #### [facility] [id number] [place] [address] Protein Ql (U) 100(2+) Abnormal NEGATIVE [facility] Comment on above: Performed By: #### U A #### [facility] [address] [place] [address] Specific gravity (U) [Rel density] 1.025 Normal 1.005 - 1.035 [facility] Comment on above: Performed By: #### U A #### [facility] [address] [place] [address] Urobilinogen (U) [Mass/Vol] mg/dL Normal 0.0 - 1.9 [facility] Comment on above: Performed By: #### U A #### [facility] [address] [place] [address] Vital Signs Date Time Vital Sign Value Performing Clinician Facility 04-02-2024 15:13-0500 Diastolic blood pressure 69 mm[Hg] Bong Furlong DO Work Phone: [facility] 04-02-2024 15:13-0500 Systolic blood pressure 137 mm[Hg] Bong Furlong DO Work Phone: [facility] 03-26-2024 14:55-0500 Body temperature 97.39 [degF] Bong Furlong DO Work Phone: [facility] 03-26-2024 14:55-0500 Body weight 112.04 kg Bong Furlong DO Work Phone: [facility] 03-26-2024 14:55-0500 Diastolic blood pressure 85 mm[Hg] Bong Furlong DO Work Phone: [facility] 03-26-2024 14:55-0500 Heart rate 64 /min Bong Furlong DO Work Phone: [facility] 03-26-2024 14:55-0500 Respiratory rate 18 /min Bong Furlong DO Work Phone: [facility] 03-26-2024 14:55-0500 SaO2% (BldA) [Mass fraction] 96 % Bong Furlong DO Work Phone: [facility] 03-26-2024 14:55-0500 Systolic blood pressure 136 mm[Hg] Bong Furlong DO Work Phone: [facility] 02-24-2024 21:56-0500 Diastolic blood pressure 108 mm[Hg] Bong Furlong DO Work Phone: [facility] 02-24-2024 21:56-0500 Systolic blood pressure 171 mm[Hg] Bong Furlong DO Work Phone: [facility] [employer] [facility] 02-20-2024 11:41-0500 Body temperature 96.6 [degF] Bong Furlong DO Work Phone: [facility] 02-20-2024 11:41-0500 Body weight 111.22 kg Bong Furlong DO Work Phone: [facility] [employer] [facility] 02-20-2024 11:41-0500 Diastolic blood pressure 69 mm[Hg] Bong Furlong DO Work Phone: [facility] 02-20-2024 11:41-0500 Heart rate 60 /min Bong Furlong DO Work Phone: [facility] 02-20-2024 11:41-0500 Respiratory rate 18 /min Bong Furlong DO Work Phone: [facility] 02-20-2024 11:41-0500 SaO2% (BldA) [Mass fraction] 99 % Bong Furlong DO Work Phone: [facility] 02-20-2024 11:41-0500 Systolic blood pressure 131 mm[Hg] Bong Furlong DO Work Phone: [facility] 02-06-2024 20:57-0500 Body temperature 97.39 [degF] Bong Furlong DO Work Phone: [facility] 02-06-2024 20:57-0500 Body weight 111.13 kg Bong Furlong DO Work Phone: [facility] 02-06-2024 20:57-0500 Diastolic blood pressure 60 mm[Hg] Bong Furlong DO Work Phone: [facility] 02-06-2024 20:57-0500 Heart rate 65 /min Bong Furlong DO Work Phone: [facility] 02-06-2024 20:57-0500 Respiratory rate 17 /min Bong Furlong DO Work Phone: [facility] 02-06-2024 20:57-0500 SaO2% (BldA) [Mass fraction] 97 % Bong Acosta DO Work Phone: [facility] 02-06-2024 20:57-0500 Systolic blood pressure 165 mm[Hg] Bong Acosta DO Work Phone: [facility] 01-29-2024 13:02-0500 Body height 172.7 cm Perla Aguila [employer] Work Phone: [facility] 01-29-2024 13:02-0500 Body mass index (BMI) [Ratio] 37.71 kg/m2 Perla Aguila [employer] Work Phone: [facility] 01-29-2024 13:02-0500 Body temperature 97.81 [degF] Perla Aguila [employer] Work Phone: [facility] 01-29-2024 13:02-0500 Body weight 112.49 kg Perla Aguila [employer] Work Phone: [facility] 01-29-2024 13:02-0500 Diastolic blood pressure 70 mm[Hg] Perla Augila [employer] Work Phone: [facility] 01-29-2024 13:02-0500 Heart rate 74 /min Perla Aguila [employer] Work Phone: [facility] 01-29-2024 13:02-0500 SaO2% (BldA) [Mass fraction] 95 % Perla Aguila [employer] Work Phone: [facility] 01-29-2024 13:02-0500 Systolic blood pressure 128 mm[Hg] Perla Aguila [employer] Work Phone: [facility] 01-08-2024 14:17-0400 Body height 172.7 cm Darcy Sandoval [employer] Work Phone: [facility] 01-08-2024 14:17-0400 Body mass index (BMI) [Ratio] 37.56 kg/m2 Darcy Sandoval [employer] Work Phone: [facility] 01-08-2024 14:17-0400 Body weight 112.04 kg Darcy Lori [employer] Work Phone: [facility] 01-08-2024 14:17-0400 Diastolic blood pressure 84 mm[Hg] Darcy Lori [employer] Work Phone: [facility] 01-08-2024 14:17-0400 Heart rate 92 /min Darcy Lori [employer] Work Phone: [facility] 01-08-2024 14:17-0400 SaO2% (BldA) [Mass fraction] 98 % Darcy Lori [employer] Work Phone: [facility] 01-08-2024 14:17-0400 Systolic blood pressure 124 mm[Hg] Darcy Dormont [employer] Work Phone: [facility] 12-25-2023 14:28-0400 Body height 172.7 cm Darcy Lori [employer] Work Phone: [facility] 12-25-2023 14:28-0400 Body mass index (BMI) [Ratio] 38.32 kg/m2 Darcy Lori [employer] Work Phone: [facility] 12-25-2023 14:280400 Body weight 114.31 kg Darcy Dormont [employer] Work Phone: [facility] 12-25-2023 14:28-0400 Diastolic blood pressure 68 mm[Hg] Darcy Lori [employer] Work Phone: [facility] 12-25-2023 14:28-0400 Heart rate 88 /min Darcy Lori [employer] Work Phone: [facility] 12-25-2023 14:28-0400 SaO2% (BldA) [Mass fraction] 97 % Darcy Dormont [employer] Work Phone: [facility] 12-25-2023 14:28-0400 Systolic blood pressure 128 mm[Hg] Darcy Dormont [employer] Work Phone: [facility] 11-13-2023 14:18-0400 Body mass index (BMI) [Ratio] 41.17 kg/m2 Darcy Dormont [employer] Work Phone: [facility] 11-13-2023 14:18-0400 Body weight 122.83 kg Darcy Sandoval [employer] Work Phone: [facility] 11-13-2023 14:18-0400 Diastolic blood pressure 75 mm[Hg] Darcy Sandoval [employer] Work Phone: [facility] 11-13-2023 14:18-0400 Heart rate 59 /min Darcy Sandoval [employer] Work Phone: [facility] 11-13-2023 14:18-0400 SaO2% (BldA) [Mass fraction] 98 % Darcy Sandoval [employer] Work Phone: [facility] 11-13-2023 14:18-0400 Systolic blood pressure 125 mm[Hg] Darcy Sandoval [employer] Work Phone: [facility] 09-16-2022 14:48-0400 Blood Pressure Location Umer VALENCIA [facility] 09-16-2022 14:48-0400 Diastolic blood pressure 74 mm[Hg] Umertatum VALENCIA [facility] 09-16-2022 14:48-0400 Heart rate 70 /min Umer VALENCIA [facility] 09-16-2022 14:48-0400 Respiratory rate 16 /min Umer VALENCIA [facility] 09-16-2022 14:48-0400 Systolic blood pressure 130 mm[Hg] Umer VALENCIA [facility] 04-26-2022 11:04-0500 Blood Pressure Location Umer VALENCIA [facility] 04-26-2022 11:04-0500 Diastolic blood pressure 78 mm[Hg] Umer VALENCIA [facility] 04-26-2022 11:04-0500 Heart rate 62 /min Umer VALENCIA [facility] 04-26-2022 11:04-0500 Respiratory rate 16 /min Umer VALENCIA [facility] 04-26-2022 11:04-0500 Systolic blood pressure 134 mm[Hg] Umer VALENCIA [facility] 12-03-2021 13:08-0400 Blood Pressure Location Umer VALENCIA [facility] 12-03-2021 13:08-0400 Diastolic blood pressure 70 mm[Hg] Umer VALENCIA [facility] 12-03-2021 13:08-0400 Heart rate 65 /min Umer VALENCIA [facility] 12-03-2021 13:08-0400 Respiratory rate 16 /min Umer VALENCIA [facility] 12-03-2021 13:08-0400 Systolic blood pressure 109 mm[Hg] Umer VALENCIA [facility] 09-03-2021 13:39-0400 Blood Pressure Location Umer VALENCIA [facility] 09-03-2021 13:39-0400 Diastolic blood pressure 67 mm[Hg] Umer VALENCIA [facility] 09-03-2021 13:39-0400 Heart rate 68 /min Umer VALENCIA [facility] 09-03-2021 13:39-0400 Respiratory rate 16 /min Umer VALENCIA [facility] 09-03-2021 13:39-0400 Systolic blood pressure 102 mm[Hg] 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 ([facility]); Back pain, unspecified back location, unspecified back pain laterality, unspecified chronicity Start: 02-10-2024 End: 02-10-2024 ambulatory Marianela X Orzech Facility:[facility] Start: 02-10-2024 End: 02-10-2024 Patient encounter procedure Marianela X MoboFreebrittney [facility] Start: 02-06-2024 End: 02-15-2024 ambulatory Bong Acosta DO [facility] Comment on above: Pneumonia due to inf ectious organism, unspecified laterality, unspecified part of lung (Primary Dx); Cellulitis of left lower extremity; Falls, subsequent encounter; Dementia without behavioral disturbance, psychotic disturbance, mood disturbance, or anxiety, unspecified dementia severity, unspecified dementia type ([facility]); Depression, unspecified depression type; Essential hypertension; Type 2 diabetes mellitus without complication, without long-term current use of insulin ([facility]) Start: 02-01-2024 End: 02-03-2024 Clinisync Result Encounter Generic External Data Provider [facility] Unsolicited Start: 02-01-2024 End: 02-03-2024 Clinisync Result Encounter Generic External Data Provider [facility] External [facility] Unsolicited Start: 01-29-2024 End: 01-29-2024 Italia Aguila [employer] Work Phone: [facility] Start: 01-29-2024 End: 01-29-2024 Italia Joseph C Aguila [employer] Work Phone: [facility] Start: 01-29-2024 End: 01-29-2024 ambulatory PERLA AGUILA Not Available Start: 01-29-2024 End: 01-29-2024 Office outpatient visit 25 minutes Perla Aguila [employer] Work Phone: [facility] Comment on [...] 01-08-2024 End: 01-08-2024 Bamboo flowsheet Darcy Sandoval [employer] Work Phone: [facility] Start: 01-08-2024 End: 01-08-2024 Bamboo flowsheet Darcy Sandoval [employer] Work Phone: [facility] Start: 01-08-2024 End: 01-08-2024 Office outpatient visit 25 minutes Darcy Sandoval [employer] Work Phone: [facility] Comment on above: Edema, unspecified t ype (Primary Dx); Altered mental status, unspecified altered mental status type Start: 12-25-2023 End: 12-25-2023 Office outpatient visit 25 minutes Darcy Sandoval [employer] Work Phone: [facility] Comment on above: Localized edema (Leslee jazmine Dx); Acute cough Start: 12-25-2023 End: 12-25-2023 ambulatory DARCY SANDOVAL Not Available Start: 12-25-2023 End: 12-25-2023 Bamboo flowsheet Darcy Sandoval [employer] Work Phone: [facility] Start: 12-25-2023 End: 12-25-2023 Bamboo flowsheet Darcy Sandoval [employer] Work Phone: [facility] Start: 12-05-2023 End: 12-05-2023 Clinisync Result Encounter Darcy Sandoval [employer] Work Phone: [facility] Unsolicited Start: 12-05-2023 End: 12-05-2023 Clinisync Result Encounter Darcy Sandoval [employer] Work Phone: [facility] Unsolicited Start: 12-05-2023 End: 12-05-2023 ambulatory [facility]ARCY [facility]UERVELY [facility] Start: 12-05-2023 End: 12-05-2023 Subsequent hospital visit by physician Michelle Deleon MD Work Phone: [facility] Start: 11-30-2023 End: 11-30-2023 Clinisync Result Encounter Rene Anthony MD Work Phone: [facility] Unsolicited Start: 11-30-2023 End: 11-30-2023 Clinisync Result Encounter Rene Anthony MD Work Phone: [facility] Unsolicited Start: 11-30-2023 End: 11-30-2023 ambulatory RENE ANTHONY [facility] Start: 11-30-2023 End: 11-30-2023 Subsequent hospital visit by physician Michelle Deleon MD Work Phone: [facility] Start: 11-28-2023 End: 11-28-2023 [facility] Start: 11-21-2023 Evaluation and manag ement of inpatient [facility] Start: 11-18-2023 Evaluation and manag ement of inpatient [facility] Start: 11-17-2023 Evaluation and manag ement of inpatient [facility] Start: 11-15-2023 Evaluation and manag [facility]ment of inpatient [facility] Start: 11-15-2023 Evaluation and manag ement of inpatient [facility] Start: 11-15-2023 Evaluation and manag ement of inpatient ANUEL LO [facility] Start: 11-15-2023 Evaluation and manag ement of inpatient GILES ALTMAN [facility] Start: 11-15-2023 End: 11-15-2023 ambulatory UNKNOWN PROVIDER Facility:[facility] Start: 11-15-2023 End: 11-22-2023 Evaluation and management of inpatient CHAKA LAINEZ [facility] Start: 11-13-2023 End: 11-13-2023 Office outpatient visit 25 minutes Darcy Sandoval [employer] Work Phone: [facility] Comment on above: Bilateral lower extr emity edema (Primary Dx); Type 2 diabetes mellitus with diabetic nephropathy, without long-term current use of insulin ([facility]); Hypokalemia Start: 11-13-2023 End: 11-13-2023 ambulatory DARCY SANDOVAL Not Available Start: 11-13-2023 End: 11-13-2023 Bamboo flowsheet Darcy Sandoval [employer] Work Phone: [facility] Start: 11-13-2023 End: 11-13-2023 Bamboo flowsheet Darcy Sandoval [employer] Work Phone: [facility] Start: 11-11-2023 End: 11-11-2023 ambulatory Marianela X Orzech [facility] Start: 11-11-2023 End: 11-11-2023 Patient encounter procedure Marianela X Orzech [facility] Start: 10-23-2023 End: 10-23-2023 ambulatory DARCY SANDOVAL Not Available Start: 10-14-2023 End: 10-14-2023 ambulatory Marianela X Orzech Facility:[facility] Start: 10-14-2023 End: 10-14-2023 Patient encounter procedure Marianela X Orzech [facility] Start: 10-09-2023 End: 10-09-2023 ambulatory TOMMY GABRIEL Not Available Start: 08-01-2023 End: 08-01-2023 ambulatory JUAN APBLO ALANIZ Not Available Start: 06-19-2023 End: 06-19-2023 ambulatory JUAN PABLO ALANIZ Not Available Start: 05-13-2023 End: 05-13-2023 ambulatory CAIT DUNHAM Facility:[facility] Start: 05-13-2023 End: 05-13-2023 Patient encounter procedure CAIT DUNHAM [facility] Start: 04-23-2023 End: 04-23-2023 ambulatory JUAN PABLO ALANIZ Not Available Start: 03-26-2023 End: 03-26-2023 ambulatory JUAN PABLO ALANIZ Not Available Start: 02-27-2023 End: 02-27-2023 ambulatory DARCY SANDOVAL Not Available Start: 09-16-2022 End: 09-16-2022 Patient encounter procedure Umer VALENCIA [facility] Start: 07-26-2022 End: 07-27-[address] JUAN PABLO ALANIZ Facility:[facility] Start: 06-26-2022 End: 06-27-[address] JUAN PABLO ALANIZ Facility:[facility] Start: 05-23-2022 End: 05-24-[address] JUAN PABLO ALANIZ Facility:[facility] Start: 04-26-2022 End: 04-26-2022 Patient encounter procedure Umer VALENCIA [facility] Start: 04-22-2022 End: 04-23-[address] JUAN PABLO ALANIZ Facility:[facility] Start: 04-16-2022 End: 04-16-[address] JUAN PABLO ALANIZ Facility:[facility] Start: 04-08-2022 End: 04-08-2022 Patient encounter procedure Umer VALENCIA [facility] Start: 04-04-2022 ambulatory SHELLIE ROJAS . Facility:[facility] Start: 03-08-2022 End: 03-08-[address] JUAN PABLO ALANIZ Facility:[facility] Start: 03-04-2022 Encounter for preprocedural cardiovascular examination DR VINH HOLCOMB . [facility] Start: 03-04-2022 Encounter for preprocedural laboratory examination DR VINH HOLCOMB . [facility] Start: 03-03-2022 End: 03-03-[address] JUAN PABLO ALANIZ Facility:[facility] Start: 03-02-2022 Encounter for preprocedural cardiovascular examination DR VINH HOLCOMB . [facility] Start: 02-26-[address] VINH [...] encounter procedure Umer VALENCIA [facility] Start: 11-29-2021 End: 11-30-2021 ambulatory MANDIE [...] encounter procedure Umer VALENCIA [facility] Start: 09-03-2021 End: 09-03-[address] JUAN PABLO ALANIZ Facility:[facility] Procedures Date Procedure Procedure Detail Performing Clinician Start: 02-01-2024 BLOOD CULTURE 2 Generic External Data Provider Start: 02-01-2024 BLOOD CULTURE 1 Generic External Data Provider Start: 01-22-2024 BLOOD CULTURE 2 Generic External Data Provider Start: 01-22-2024 BLOOD CULTURE 1 Generic External Data Provider Start: 12-05-2023 ALL BASIC METABOLIC PANEL Darcy Duarte ly [employer] Work Phone: Start: 12-05-2023 Basic metabolic panel calcium total Ronald Sandoval INVENTORY 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 Work Phone: Start: 11-30-2023 ALL URINALYSIS Rene Anthony MD Work Phone: Start: 11-30-2023 Urnls dip stick/tablet rgnt auto w/o microscopy Rene Anthony MD Work Phone: Start: 11-13-2023 Hemoglobin glycosylated a1c Darcy smiley [employer] Work Phone: Esophagogastroduodenoscopy Goldie VALENCIA Plan of Treatment Date Care Activity Detail Author Start: 01-07-2025 Urine screening for protein Diabetes: Urine Protein Screening [facility] Start: 12-04-2024 Urine screening for protein Diabetes: Urine Protein Screening [facility] Start: 11-21-2024 Urine screening for protein Diabetes: Urine Protein Screening [facility] Start: 10-22-2024 Urine screening for protein Diabetes: Urine Protein Screening [facility] Start: 03-04-2024 End: 03-04-2024 Patient encounter procedure 03/04/2024 3:50 PM EST Procedure Visit [facility] [address] [facility] [address] [place] [id number] Tommy Gabriel, DPM [address] [facility] [address] [place] [address] [facility] Start: 02-17-2024 Hemoglobin A1c measurement Diabetes: Hemoglobin A1C [facility] Start: 02-13-2024 Hemoglobin A1c measurement Diabetes: Hemoglobin A1C [facility] Start: 01-29-2024 End: 01-28-2025 Basic metabolic 1997 panel - Serum or Plasma Basic metabolic panel Lab Routine Localized edema Acute cough Expected: 01/29/2024 (Approximate), Expires: 01/28/2025 [facility] Work Phone: Comment on above: Expected: 01/29/2024 (Approximate), Expires: 01/28/2025 Start: 01-29-2024 End: 01-28-2025 Natriuretic peptide B [Mass/volume] in Blood B-type natriuretic peptide Lab Routine Localized edema Acute cough Expected: 01/29/2024 (Approximate), Expires: 01/28/2025 [facility] Comment on above: Expected: 01/29/2024 (Approximate), Expires: 01/28/2025 Start: 01-29-2024 End: 01-29-2024 Patient encounter procedure [facility] Start: 01-08-2024 End: 01-07-2025 Basic metabolic 1997 panel - Serum or Plasma Basic metabolic panel Lab Routine Edema, unspecified type Expected: 01/08/2024 (Approximate), Expires: 01/07/2025 [facility] Work Phone: Comment on above: Expected: 01/08/2024 [...] [address] [place] [address] Darcy Sandoval NP [address] [place] [address] [facility] Start: 12-25-2023 End: 12-25-2023 Patient encounter procedure [facility] Comment on above: Arrived Start: 11-23-2023 COVID-19 Vaccine () COVID-19 Vaccine () [facility] [employer] Start: 11-23-2023 Influenza vaccination [facility] Start: 11-13-2023 End: 11-13-2023 Patient encounter procedure 11/13/2023 2:30 PM EDT Office Visit [facility] [address] [place] [address] Darcy Sandoval NP [address] [place] [address] Arrived [facility] Comment on above: Arrived Start: 11-13-2023 End: 11-12-2024 Natriuretic peptide B [Mass/volume] in Blood B-type natriuretic peptide Lab Routine Bilateral lower extremity edema Expected: 11/13/2023 (Approximate), Expires: 11/12/2024 [facility] Work Phone: Comment on above: Expected: 11/13/2023 (Approximate), Expires: 11/12/2024 Start: 10-23-2023 Influenza vaccination Flu vaccine (# 1) [employer] Start: 06-25-2023 Hemoglobin A1c measurement Diabetes: Hemoglobin A1C [facility] Start: 03-24-2023 Annual Wellness Visi t (Medicare Advantage) Annual Wellness Visit (Medicare Advantage) Social Median Start: 03-08-2023 Urine screening for protein Diabetes: Urine Protein Screening [facility] Start: 08-22-2022 ambulatory Ambulatory Facility:[facility] Start: 08-06-2019 Pneumococcal 65+ yea rs Vaccine (2 of 2 - PCV) Pneumococcal 65+ years Vaccine (2 of 2 - PCV) [facility] Start: 08-06-2019 Pneumococcal Vaccine : 65+ Years (2 of 2 - PCV) Pneumococcal Vaccine: 65+ Years (2 of 2 - PCV) [facility] Start: 2003 Fall Risk Screening Fall Risk Screen [facility] Start: 1998 Respiratory Syncytia l Virus (RSV) or age 60 yrs+ (1 - 1-dose 60+ series) Respiratory Syncytial Virus (RSV) or age 60 yrs+ (1 - 1-dose 60+ series) [facility] Start: 1988 Administration of varicella zoster vaccine Zoster (Shingles) Vaccine (1 of 2) [facility] Start: 1988 Shingles vaccine (1 of 2) [place] gles vaccine (1 of 2) [facility] Start: 1957 DTaP,Tdap and Td Vac cines (1 - Tdap) DTaP,Tdap and Td Vaccines (1 - Tdap) [facility] Start: 1957 DTaP/Tdap/Td vaccine (1 - Tdap) DTaP/Tdap/Td vaccine (1 - Tdap) [facility] Start: 1950 Depression Screen Depression Screen [facility] Start: 1950 Depression Screening Depression Scre ening [facility] Start: 1950 Tobacco Screening Tobacco Screening [facility] Start: 1948 Glaucoma screening Diabetes: R etinopathy Screening [facility] Start: 1948 Lipid panel Lipids [facility] BLOOD CULTURE 1 BLOOD CULTURE 1 Lab Routine 01/22/2024 3:15 PM EDT [facility] BLOOD CULTURE 2 BLOOD CULTURE 2 Lab Routine 01/22/2024 3:19 PM EDT [facility] End: 11-30-2023 Culture, Urine [facility] Work Phone: Comment on above: Once for 1 Occurrenc es starting 11/30/2023 until 11/30/2023 Immunizations Immunization Date Immunization Notes Care Provider Walt peck 01-13-2023 influenza virus vacc ine, unspecified formulation Marianela Ingram [facility] 01-13-2023 Influenza, High-dose Seasonal, Quadrivalent, Preservative Free Darcy Lori [employer] Work Phone: [facility] 02-22-2022 influenza virus vacc ine, unspecified formulation Umer VALENCIA [facility] 02-22-2022 influenza, high dose seasonal, preservative-free Darcy Lori [employer] Work Phone: [facility] 12-21-2020 SARS-CoV-2 (COVID-19 ) mRNA BNT-162b2 vax Umer VALENCIA [facility] 11-30-2020 SARS-CoV-2 (COVID-19 ) mRNA BNT-162l3 vax Umer VALENCIA [facility] 01-24-2020 influenza virus vacc ine, unspecified formulation Umer VALENCIA [facility] 01-24-2020 influenza, high dose seasonal, preservative-free Darcy Dormont [employer] Work Phone: [facility] 03-04-2019 influenza virus vacc ine, unspecified formulation Umer VALENCIA [facility] 03-04-2019 influenza, high dose seasonal, preservative-free Darcy Dormont [employer] Work Phone: [facility] 08-05-2018 pneumococcal polysaccharide vaccine, 23 valent Umer VALENCIA [facility] 12-18-2016 influenza virus vacc ine, unspecified formulation Umertatum VALENCIA [facility] 12-18-2016 influenza, high dose seasonal, preservative-free Darcy Dormont [employer] Work Phone: [facility] 12-06-2015 influenza virus vacc ine, unspecified formulation Umer VALENCIA [facility] 12-06-2015 influenza, high dose seasonal, preservative-free Darcy Lori [employer] Work Phone: [facility] 12-21-2014 influenza virus vacc ine, unspecified formulation Umertatum VALENCIA [facility] 12-21-2014 influenza, high dose seasonal, preservative-free Darcy Lori [employer] Work Phone: [facility] Healthcare Payers Date Payer Category Payer Medicare [facility] MEDICARE ADVANTAGE [facility] MEDICARE ADVANTAGE [id number] 2021-Present [id number] 2021 Medicare (Managed Care) [facility] Member Subscriber Plan / Payer (Effective 2021-Present) Name: Nat Moore Relation to Subscriber: Self Name: Nat Moore Payer ID: Not on file Group ID: [id number] Type: Not on file Address: [address] [place] [id number] 1959 Unknown [id number] 1959 Unknown [id number] 1940 Unknown [id number] 2.16.840.1.198451.3.579.2 .593 1938 Unknown [id number] 2.16.840.1.302758.3.579.2 .593 1938 Unknown [id number] 2.16.840.1.622427.3.579.2 .593 1938 Unknown [id number] 2.16.840.1.217809.3.579.2 .593 1938 Unknown [id number] 2.16.840.1.530349.3.579.2 .593 1938 Unknown [id number] 2.16.840.1.613742.3.579.2 .593 1938 Unknown [id number] 2.16.840.1.523254.3.579.2 .593 1938 Unknown [id number] 2.16.840.1.647438.3.579.2 .593 1938 Unknown [id number] 2.16.840.1.578379.3.579.2 .593 1938 Unknown [id number] 2.16.840.1.498251.3.579.2 .593 1938 Unknown [id number] 2.16.840.1.255193.3.579.2 .593 1938 Unknown [id number] 2.16.840.1.849103.3.579.2 .593 1938 Unknown [id number] 2.16.840.1.841882.3.579.2 .593 1938 Unknown [id number] 2.16.840.1.638493.3.579.2 .593 1938 Unknown [id number] 2.16.840.1.084012.3.579.2 .593 1938 Unknown [id number] 2.16.840.1.840136.3.579.2 .593 1938 Unknown [id number] 2.16.840.1.088809.3.579.2 .593 1938 Unknown [id number] 2.16.840.1.988461.3.579.2 .593 1938 Unknown [id number] 2.16.840.1.688185.3.579.2 .593 1938 Unknown [id number] 2.16.840.1.033950.3.579.2 .593 1938 Unknown [id number] 2.16.840.1.241410.3.579.2 .593 1938 Unknown [id number] 2.16.840.1.423509.3.579.2 .593 1938 Unknown [id number] 2.16.840.1.375295.3.579.2 .593 1938 Unknown [id number] 2.16.840.1.290627.3.579.2 .593 1938 Unknown [id number] 2.16.840.1.275572.3.579.2 .732 1938 Unknown [id number] 2.16.840.1.200432.3.579.2 .173 1938 Unknown [id number] 2.16.840.1.894366.3.579.2 .1259 1938 Unknown [id number] 2.16.840.1.801992.3.579.2 .1259 1938 Unknown [id number] 2.16.840.1.518168.3.579.2 .1259 1938 Unknown [id number] 2.16.840.1.140753.3.579.2 .1259 1938 Unknown [id number] 2.16.840.1.152869.3.579.2 .1259 1938 Unknown [id number] 2.16.840.1.041668.3.579.2 .1259 1938 Unknown [id number] 2.16.840.1.706492.3.579.2 .1259 1938 Unknown [id number] 2.16.840.1.045351.3.579.2 .1259 1938 Unknown [id number] 2.16.840.1.248751.3.579.2 .1259 1938 Unknown [id number] 2.16.840.1.037381.3.579.2 .125 1938 Unknown [id number] 2.16.840.1.510218.3.579.2 .1259 1938 Unknown [id number] 2.16.840.1.854525.3.579.2 .727 1938 Unknown [id number] 2.16.840.1.811809.3.579.2 .727 1938 Unknown [id number] 2.16.840.1.345752.3.579.2 .727 1938 Unknown [id number] 2.16.840.1.445213.3.579.2 .727 Social History Date Type Detail Facility Start: 09-03-2021 Tobacco smoking status Ex-smoker (fi nding) [facility] Start: 07-12-2012 End: 12-11-2023 Sex Assigned At Male [facility] Start: 04-26-2022 End: 11-14-2022 Tobacco smoking status Never smoked tobacco (finding) [facility] Tobacco smoking status Never [facility] Start: 11-14-2022 Tobacco use and exposure [...] [facility] Start: 11-28-2023 Tobacco smoking stat [facility] Tobacco smoking consumption unknown [facility] Start: 10-25-2014 Sex Male (finding) [facility] Functional Status Date Assessment Result Facility 11-11-2023 Functional Status N/A [facility] 09-16-2022 Functional Status N/A [facility] 04-26-2022 Functional Status N/A [facility] 12-03-2021 Functional Status N/A [facility] 09-03-2021 Functional Status N/A [facility] Clinical Notes 09-03-2021 to 04-02-2024 Bong Acosta, DO - 04/02/2024 3:13 PM Quique Acosta, DO - 03/26/2024 2:55 PM EST Note Date & Type Note Facility 04-02-2024 History of Present illness Narrative Patient Name: Nat Moore Date of : 1940 Date of Service: 04/02/2024 Facility: [facility] Type of Visit: Acute Visit Subjective Nat Moore is a 83 y.o. male seen today at shelter facility for abnormal labs and problem visit. [...] disease due to type 2 diabetes mellitus ([facility]) 2. Dementia without behavioral disturbance, psychotic disturbance, mood disturbance, or anxiety, unspecified dementia severity, unspecified dementia type ([facility]) 3. Benign prostatic hyperplasia with lower [...] Bong Acosta DO documented in this encounter [facility] 03-26-2024 History of Present illness Narrative Patient Name: Nat Moore Date of : 1940 Date of Service: 03/26/2024 Facility: [facility] Type of Visit: Subsequent Visit Subjective Nat Moore is a 83 y.o. male seen today at shelter facility for monthly visit. No new problems reported by staff or patient. He had labs done that were ordered by applied psychology chair. It looks like he is staying here [...] disease due to type 2 diabetes mellitus ([facility]) 2. Hypernatremia 3. Other hyperlipidemia 4. Hypokalemia Check A1c and BMP. Psych managing psych meds. May need further evaluation for hypernatremia. He is currently on glipizide, a sulfonylurea, and should probably be on SGLT-2 med for CKD with Type 2 diabetes but will check A1c first. All medications reviewed and are medically necessary. ELECTRONICALLY SIGNED BY: Bong Acosta DO documented in this encounter [facility] 03-26-2024 Evaluation note Diagnosis Hypertension associated with 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 ([facility])- Primary Hypernatremia Hyperosmolality and/or hypernatremia Other hyperlipidemia Hypokalemia Hypopotassemia documented in this encounter [facility]12-19-2024 Telephone encounter Note* Telephone Encounter - Cait Espinal - 03/11/2024 1:33 PM EST PT WAS A NO SHOW, DAUGHTER CALLED BACK, HE IS IN JAIL [id number] Miscellaneous Notes* Telephone Encounter - Cait Espinal - 03/11/2024 1:33 PM EST PT WAS A NO SHOW, DAUGHTER CALLED BACK, HE IS IN JAIL * Telephone Encounter - Cait Espinal - 03/04/2024 4:05 PM EST Patient was a no show lvm to r/s documented in this encounterMiss[facility] [id number] Telephone encounter Note* Telephone Encounter - Cait Espinal - 03/04/2024 4:05 PM EST Patient was a no show lvm to r/s [facility] [id number] History of Present illness Narrative* Bong Acosta, DO - 02/24/2024 11:59 PM EST Patient Name: Nat Moore Date of : 1940 Date of Service: 02/24/2024 Facility: [facility] Type of Visit: Skilled Visit Subjective Nat Moore is a 83 y.o. male seen today at shelter facility for skilled visit. No new problems reported by staff or patient. He is participating in therapy but cannot tell me what he is doing. Allergies: Penicillins Code Status: FULL CODE BP (!) 171/108 Physical Exam Vitals reviewed. Exam conducted with a manager of loss prevention operations present (Dayo Abad MS III). Constitutional: General: [...] anxiety, unspecified dementia severity, unspecified dementia type ([facility]) 2. Hypertension associated with 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 ([facility]) 3. Falls, subsequent encounter His blood pressure is elevated today but it had been good previously so we will continue current regimen. Continue therapy to reach maximum improvement. All medications reviewed and are medically necessary. ELECTRONICALLY SIGNED BY: Bong Acosta DO [facility] History of Present illness Narrative* Bong Acosta DO - 02/20/2024 11:37 AM EST Patient Name: Nat Moore Date of : 1940 Date of Service: 02/20/2024 Facility: [facility] Type of Visit: Admission H&P Subjective Nat Moore is a 83 y.o. male seen today at shelter facility for admission. Hi presents back to [facility] from [facility] where he was admitted for dementia. [...] anxiety, unspecified dementia severity, unspecified dementia type ([facility]) 2. Falls, subsequent encounter 3. Hypertension associated with 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 ([facility]) 4. Back pain, unspecified back location, unspecified back pain laterality, unspecified chronicity Admit to [facility]. Therapy evaluation and treat to try to regain independence. He has dementia and we will see if he is able to go back home. He needs to be able to do ADLs if not going to be home and right now I don't think he can. He needs supervision. Continue home medications. Full code. ELECTRONICALLY SIGNED BY: Bong Acosta DO documented in this encounterUniversity Hospitals TriPoint Medical CenterMedicAnimal.com Brighton [id number] History of Present illness Narrative* Bong Acosta DO - 02/06/2024 11:59 PM EST Patient Name: Nat Moore Date of : 1940 Date of Service: 02/06/2024 Facility: [facility] Type of Visit: Admission H&P Subjective Nat Moore is a 83 y.o. male seen today at shelter facility for No chief complaint onfile. . Patient presents to [facility] for therapies following hospitalization for pneumonia and [...] Exam Vitals reviewed. Exam conducted with a manager of loss prevention operations present (, daughter and Dayo [facility] MS III). Cardiovascular: Rate and Rhythm: Normal [...] anxiety, unspecified dementia severity, unspecified dementia type ([facility]) 5. Depression, unspecified depression type 6. Essential hypertension 7. Type 2 diabetes mellitus without complication, without long-term current use of insulin ([facility]) Plan: Admit to [facility]. Therapy evaluation. Continue current regimen. Full code. Plan to go home when able to. ELECTRONICALLY SIGNED BY: Bong Acosta DO documented in [facility]11-[facility] History of Present illness Narrative* Fe Rojo LPN - 01/29/2024 1:00 PM EST HPI Follow-up Additional comments: [facility] observation: admitted 01/22/24 dx: syncope,hypotension,dehydration discharged home 01/23/24 no med changes made Last edited by Fe Rojo LPN on 01/29/2024 1:07 PM. Subjective Patient ID: Nat Moore is a 83 y.o. male who presents for Follow-up ([facility] observation: admitted 01/22/24 dx: syncope,hypotension,dehydration discharged [...] MOUTH DAILY FOR DEPRESSION WITH 20MG TO [id number] TOTAL FLUoxetine (PROzac) 20 MG capsule TAKE [...] foot due to type 2 diabetes mellitus ([facility]) 09/04/2016 Past Surgical History: Procedure Laterality [...] improve. Melanie Boyle NP documented in this [facility]11-07-2024 Instructions* Patient Instructions* Melanie Boyle NP - 01/29/2024 1:00 PM EST Start azithromycin 500 mg daily x 5 days for sinus infection. Okay to take Coricidin HBP over the counter for cough/congestion symptoms Follow up to be determined based on lab results. documented in this [facility]10-17-2024 History of Present illness [...] MOUTH DAILY FOR DEPRESSION WITH 20MG TO [id number] TOTAL FLUoxetine (PROzac) 20 MG capsule TAKE [...] Past Medical History: Diagnosis Date Diabetes mellitus ([facility]) Diverticulosis History of being hospitalized 10/07/2023 Acute Metabolic Encephalopathy Hypertension ([facility]) Lung nodule Memory loss Neuropathy Renal cyst [...] No follow-ups on file. documented in this encounterMissouri Baptist Medical [id number] History of Present illness Narrative* Darcy Sandoval NP - 12/25/2023 2:30 PM EDT Images from the original note were not included. Subjective Patient ID: Nat Moore is a 83 y.o. male who presents for Hospital Follow-up. Pt was at [facility] from 11/27/23 to 12/08/23 pt was put on new meds Pt is doing better and he has been coughing sleeping a lot Pt is having a lot of swelling in his lowers legs Current Outpatient Medications on File Prior to Visit Medication Sig Dispense Refill FLUoxetine (PROzac) 10 MG capsule TAKE ONE CAPSULE BY MOUTH DAILY FOR DEPRESSION WITH 20MG TO [id number] TOTAL hydrOXYzine HCl (Atarax) 25 MG tablet [...] Past Medical History: Diagnosis Date Diabetes mellitus ([facility]) Diverticulosis History of being hospitalized 10/07/2023 Acute Metabolic Encephalopathy Hypertension ([facility]) Lung nodule Memory loss Neuropathy 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 During his stay in [place] ED he suddenly developed bradycardia prolonged sinus pause up to 18 seconds and became unresponsive. Code was activated and at the beginning of CPR he had regained his consciousness. He had another episode of sinus pause of about 12 seconds prior to transfer, however did not lose his consciousness at this time. On arrival to [facility] blood pressure was 158/72 mmHg, pulse rate 78 bpm, regular, SpO2 100% on room air, respiratory rate 20/min, temperature 97.2. 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 CT of the abdomen with contrast done at [place] ED showed nonobstructive bowel gas pattern with [...] significantly. Daily evaluated the patient on 11/21/2023. Daniels slip was removed and they deemed patient [...] Do not start bef (more content not included)...[facility]08-31-2024 NotePhysical Therapy Name: Nat Moore Date of : 1940 Today's Date: 11/22/23 Pt is unable to be seen for therapy at this time secondary to pt to discharge @ 2:00 PM today. Check No Charge [facility]: [facility] NotePt originally set for 9am BLS transport to [facility] but per MD we will push back to 2pm transport due to high blood pressures. UPDATE 1:15PM- Per MD pt can still discharge today. Transport set for 2pm via [facility]. Assembled transfer packet and placed by chart. Sent final AVS and discharge orders via [facility]. Notified RN and pt's is aware of transport time.[facility]08-30-2024 Note Attestation signed by Juan [...] is for the patient to go to [facility]. Discussed with the family that [...] Discussed with Dr. Liz. Melva Recinos MD [facility] Note Hospital Medicine Daily Progress Note - 11/21/2023 2:13 PM; Room: [address] [place] [address] Admission: 11/15/2023 2:42 PM; Length of stay: 6 days THE HOSPITALIST TEAM PREFERS TO USE [employer] CHAT FOR COMMUNICATION 7AM-7PM. IF I DO NOT RESPOND WITHIN 15 MINUTES, PLEASE PAGE ME/CALL THROUGH THE MS SQL DEVELOPER. FROM 7PM-7AM, PLEASE PAGE [phone](COVR) Code Status: Full Code Barriers to Discharge: SNF placement Expected Discharge Date: Today Discharge Destination: shelter facility Overview Patient is seen for evaluation [...] Acute metabolic encephalopathy Coronary artery disease involving sk[place] coronary artery of skokomish heart with angina pectoris (CMS/HCC) Hypokalemia Hypernatremia Obesity due to excess calories without serious comorbidity Sinus pause Assessment and Plan Episodes of sinus pauses/asystole requiring external pacing maker s/p permanent dual-chamber pacemaker on 11/18/2023 Recurrent syncope Acute encephalopathy Coronary artery disease Chronic kidney disease stage III Essential hypertension Hyperlipidemia Chronic osteoarthritis Obesity Hyponatremia Hypokalemia normocytic anemia Plan Continue inpatient cares Psych following. Daniels slip removed. No need for psych admission. [...] 2.1 CALCIUM mg/dL 8. (more content not included)...[facility]08-30-2024 NotePhysical Therapy Physical Therapy Treatment [...] a.m. Upon entry, pt in bed. This DRY BOSS introduces herself and intention for session. Per [...] state President. Did state he was at [facility] .) Following Commands: Follows one step commands [...] 2 is given. Gait belt is donned, BATCH FREEZER is given on the right side and [...] to advance BLEs to EOB but uses DRY BOSS's hand with his right hand to assist in raising upper body from bed. Bed Mobility 2 Bed Mobility From 2: Scooting Bed Mobility Type 2: To Bed Mobility to 2: (EOB in sitting) Level of Assistance 2: Minimum assistance Bed Mobility Comments 2: Pt uses DRY BOSS's hand with his right hand to assist in scooting hips to EOB Transfers Transfer: Yes Transfer 1 Transfer From 1: Sit Transfer Type 1: To and from Transfer to 1: Stand Transfer Device 1: none (DRY BOSS and aide on either side of pt) Transfer Level of Assistance 1: Minimum assistance, x2 Trials/Comments 1: Pt. instructed to (more content not included)...[facility]08-30-2024 Note Attestation signed by Juan [...] Patient Name: Nat Moore MRN / CSN: [id number] Date of / Age: 2 1940 / [...] mild cognitive impairment originally presenting to the [facility] Emergency Room on 11/15/2023 for evaluation of recurrent episodes of syncope secondary to spontaneous prolonged sinus pause. The patient was transferred via air ambulance from the [facility]. 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 The patient reports being to his , Donna, and having 4 children. He reports he came from [place] where he lives, but was not able to describe why he came to hospital or where he is now. 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 Reported Behavior: Combative and agitated PRN Medications [...] day Midazolam injection PRN (more content not included)...[facility]08-29-2024 Note11/20/23 1730 Referral Data Referral [...] Support Systems Spouse/significant other Type of Residence [facility] facility Will patient need Precert for Post Acute needs? Yes Patient's goal for discharge would like the facility in [place] for rehab 1. [facility] 2. [place] [facility] 3. (if not accepted in [place]) she is ok with [facility]. Does the patient need discharge transport arranged? Yes NATALYA called patient to discuss consult for SNF placement for rehab. Patient is currently confused and not able to answer questions. NATALYA discussed network provider list. would like provider in [place] with [facility] as 1st choice. She would [place] [facility] as 2nd and she is ok if neither can accept for [facility] as 3rd choice. Referrals made as requested. Precert will be needed. NATALYA following.[facility]08-29-2024 Note Attestation signed by William [...] Moore Age - 83 y.[facility]. [facility] 1940 [id number] Date of Admission - 11/15/2023 2:42 PM HPI/Hospital Course Nat Moore is a an 83-year-old gentleman with PMH significant for type 2 diabetes mellitus, essential hypertension, hyperlipidemia, CKD stage IIIa, bilateral lower extremity edema on diuretic therapy, osteoarthritis, depression and mild cognitive impairment was initially admitted to the hospitalist service from [place] due to recurrent episodes of syncope secondary [...] his presenting complaints. During his stay in [place] ED he suddenly developed bradycardia prolonged sinus [...] of the abdomen with contrast done at [place] ED showed nonobstructive bowel gas pattern with [...] extremities, no focal deficit (more content not included)...[facility]08-28-2024 NoteSpeech Language Pathology Speech/Language Pathology [...] calcifications who presented via air ambulance from [facility] due to recurrent episodes of syncope secondary to spontaneous prolonged sinus pause. He had initially presented for worsening midsternal chest pain lower back pain located in his mid chest aching in nature, 6 out of 10 on intensity scale, nonradiating associated with SOB. During his stay at [place] he developed bradycardia prolonged sinus pause up [...] Crushed (in puree) Recommendations [facility] of [facility]: [facility] Note Attestation signed by William Feldman [...] Moore Age - 83 y.[facility]. - 1940 [id number] Date of Admission - 11/15/2023 2:42 PM HPI/Hospital Course Nat Moore is a an 83-year-old gentleman with PMH significant for type 2 diabetes mellitus, essential hypertension, hyperlipidemia, CKD stage IIIa, bilateral lower extremity edema on diuretic therapy, osteoarthritis, depression and mild cognitive impairment was initially admitted to the hospitalist service from [place] due to recurrent episodes of syncope secondary [...] his presenting complaints. During his stay in [place] ED he suddenly developed bradycardia prolonged sinus [...] of the abdomen with contrast done at [place] ED showed nonobstructive bowel gas pattern with [...] Lab Results CBC: Result (more content not included)...[facility] 11-19-2023 Note Attestation signed by [...] calcifications who presented via air ambulance from [facility] due to recurrent episodes of syncope secondary to spontaneous prolonged sinus pause. He had initially presented for worsening midsternal chest pain lower back pain located in his mid chest aching in nature, 6 out of 10 on intensity scale, nonradiating associated with SOB. During his stay at [place] he developed bradycardia prolonged sinus pause up [...] NAD. Resting comfortably. Still in restraints. S/p [employer] DC-PPM yesterday, tolerated well. OBJECTIVE Objective [...] IV, , , Once (more content not included)...[facility]08-28-2024 Note11/19/23 1125 Admission Assessment Questions [...] Status Interested Does the patient have a heel caser assigned to them through their insurance? No Living Arrangement (Current/Prior to Hospitalization) Private residence (with ) Does the patient have history of HHC or SNF? No Assistive Device Cane Patient's goal for discharge likely snf Was patient reminded that goal for discharge is 11am? No Does the patient have transportation at discharge? No Type of Residence [facility] facility Is PT/OT appropriate? Yes Is PT/OT ordered? Yes Is SW consult appropriate? Yes Is SW consult ordered? Yes Do you understand the benefits of MyChart? No Were you able to send link and activate [facility]Chart? [facility] NoteConsult rec'd for SNF. PT/OT recommend SNF. No family at bedside at this time. SW to try again later.[facility]08-28-2024 NotePhysical Therapy Physical Therapy Evaluation [...] Level of Function Prior Function Level of [place]: Independent with ADLs and functional transfers, Needs [...] though patient with difficul (more content not included)...[facility]08-28-2024 Note Occupational Therapy Occupational Therapy Evaluation Patient Name: Nat Moore : 1940 Today's Date: 11/19/2023 Time In: 941 Time Out: 1005 admitted to the hospitalist service from [place] due to recurrent episodes of syncope secondary [...] directions Memory: Decreased short term memory, 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, Decreased recall of precautions, Decreased recall of biographical information, Decreased recall of recent events Communication: (labored , dysarthic) General Assessment General Assessment Hearing: ([place], hearing aids not observed but has them per nsg) Hand Dominance: Right Home Living Home Living Type of Home: (patient unable to report consistantly) Prior Level of Function Prior Function Level of [place]: (reports indep and drives) Prior Functional Mobility: [...] cognition, Decreased endurance, Decreased functional mobility 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: (needs skilled OT due to weakness [...] until discharge & PRN OT Discharge Recommendations: [facility] facility placement OT - Discharge Recommendations Placed: Yes OT Goals Multi-Disciplinary Problems (from Occupational Therapy) Active Problems Problem: Balance Start Date: 11/19/23 Goal Start Date Expected End Date End Date LTG - Patient will maintain stand balance to allow for safe mobility 11/19/23 12/17/23 -- Problem: Bathing Start Date: 11/19/23 Goal Start Date Expected End Date End Date LTG (more content not included)...[facility]08-27-2024 Note Attestation signed by William Feldman MD at 11/18/2023 6:35 PM I reviewed the salient portions of the patient history. I have seen and examined the patient during rounds with the resident/fellow Robin. I repeated the ba components of the exam. Agree with the noted assessment and plan. iWlliam Feldman MD Pulmonary Progress Note Patient - Nat Moore Age - 83 y.o. - 1940 N - [id number] [facility] # - [id number] Date of Admission - 11/15/2023 2:42 PM HPI/Hospital Course Nat Moore is a an 83-year-old gentleman with PMH significant for type 2 diabetes mellitus, essential hypertension, hyperlipidemia, CKD stage IIIa, bilateral lower extremity edema on diuretic therapy, osteoarthritis, depression and mild cognitive impairment was initially admitted to the hospitalist service from [place] due to recurrent episodes of syncope secondary [...] his presenting complaints. During his stay in [place] ED he suddenly developed bradycardia prolonged sinus [...] of the abdomen with contrast done at [place] ED showed nonobstructive bowel gas pattern with [...] 12.7* 11.9* 12.4* HE (more content not included)...[facility]08-27-2024 Note Attestation signed by Nora [...] calcifications who presented via air ambulance from [facility] due to recurrent episodes of syncope secondary to spontaneous prolonged sinus pause. He had initially presented for worsening midsternal chest pain lower back pain located in his mid chest aching in nature, 6 out of 10 on intensity scale, nonradiating associated with SOB. During his stay at [place] he developed bradycardia prolonged sinus pause up [...] NAD. Resting comfortably. Still in restraints. S/p [employer] DC-PPM this morning, tolerated well. OBJECTIVE [...] q8h PRN, Nils Villalbahi (more content not included)...[facility] 11-18-2023 NoteDUAL CHAMBER PACEMAKER IMPLANT PROCEDURE NOTE DATE OF PROCEDURE: 11/18/23 PERFORMING PHYSICIAN: Dr. Sam Oscar CONSENT: Patient LOCATION: EP Lab PROCEDURE PERFORMED: 1. Implantation of pacemaker ([employer]) 2. Ultrasound guided venous access INDICATIONS: [...] using modified seldinger technique using a 5 Tamazight micro-puncture needle on two occasions and 0.35 [...] for the device above the muscle. 6 Tamazight Safesheaths were placed over the wire. An active fixation [employer] pacing lead was then delivered through the 6Fsheath to the right ventricle. After confirmation of lead position on orthogonal views (WILKINSON and SPANISH) to confirm septal position, the screw was [...] was then removed. Then an active fixation [employer] lead was delivered through the 6Fsheath to the right atrial appendage. After confirmation of lead position on orthogonal views (WILKINSON and SPANISH), the screw was activated. Good sensing parameters, [...] for any concerns. Sam Oscar MD [facility]08-26-2024 Note Attestation signed by Nora Rivera [...] calcifications who presented via air ambulance from [facility] due to recurrent episodes of syncope secondary to spontaneous prolonged sinus pause. He had initially presented for worsening midsternal chest pain lower back pain located in his mid chest aching in nature, 6 out of 10 on intensity scale, nonradiating associated with SOB. During his stay at [place] he developed bradycardia prolonged sinus pause up [...] mg, oral, Daily, [place] (more content not included)...[facility]08-26-2024 Note Attestation signed by William [...] initially admitted to the hospitalist service from [place] due to recurrent episodes of syncope secondary [...] his presenting complaints. During his stay in [place] ED he suddenly developed bradycardia prolonged sinus [...] of the abdomen with contrast done at [place] ED showed nonobstructive bowel gas pattern with [...] planning on taking the patient to the Optometrist/Practice Owner tomorrow for possible transvenous pacemaker placement SUBJECTIVE [...] 24 hours) at 11/17/2023 (more content not included)...[facility]08-25-2024 NoteCardiovascular Laboratory Report FINAL IMPRESSIONS: [...] left radial artery was obtained. A 6 Tamazight glide sheath was inserted without difficulty. Difficulty [...] with a mid v (more content not included)...[facility]08-25-2024 Note Attestation signed by Salena [...] permanent pacemaker implantation tomorrow Salena Alcaraz MD, [facility] Cardiology Progress Note Subjective Subjective: Patient [...] Value Ventricular Rate 85 Atrial Rate 85 WI Interval 266 QRS DURATION 104 QT Interval 390 QTC CALCULATION(BAZETT) 464 P Blue 71 R-Blue -60 T Wave Blue 49 Impression Sinus rhythm with 1st degree A-V block Left axis deviation Inferior infarct (cited on or before 21-JUL-2012) Cannot rule out Anterior infarct (cited on or before 15-NOV-2023) Abnormal ECG When compared with ECG of 15-NOV-2023 19:56, (unconfirmed) No significant change was found Lab Results Component Value Date TROPONINI 0.01 11/15/2023 Transthoracic echo (TTE) complete Result Date: 11/15/2023 1 [facility] Heart Station [address] [place] [address] [phone] (fax) Echocardiogram-[facility] Name: NAT MOORE Study Date: 11/15/2023 05:06 PM B/P: 158 mmHg/72 mmHg HR: Date of : 1940 Location: [facility] Height: 65 in. Age: 83 year(s) [...] in sizeNo significant v (more content not included)...[facility]08-24-2024 Vern CONNOLLY was called on this patient after he sustained a 10 the second sinus pause and then a 7-second sinus pause. Patient with brief LOC. Patient with multiple episodes of nausea and vomiting. MICU fellow at bedside who states he will transfer patient to MICU for transcutaneous pacing.[facility]08-24-2024 NoteHospital Medicine History and Physical 11/15/2023 5:58 PM THE HOSPITALIST TEAM PREFERS TO USE [employer] CHAT FOR COMMUNICATION 7AM-7PM. IF I DO NOT RESPOND WITHIN 15 MINUTES, PLEASE PAGE ME/CALL THROUGH THE MS SQL DEVELOPER. FROM 7PM-7AM, PLEASE PAGE [phone](COVR) Chief Complaint No chief complaint on file. History of Present Illness Nat Moore is an 83 y.o. severely obese male with a medical history significant for type 2 diabetes mellitus, essential hypertension, hyperlipidemia, CKD stage IIIa, bilateral lower extremity edema on diuretic therapy, osteoarthritis, coronary calcifications, depression, mild cognitive impairment, who was transferred via air ambulance from the [facility] due to recurrent episodes of syncope secondary to spontaneous prolonged sinus pause. Patient states that he presented to the [place] ED due to worsening midsternal chest pain [...] his presenting complaints. During his stay in [place] ED he suddenly developed bradycardia prolonged sinus [...] of the abdomen with contrast done at [place] ED showed nonobstructive bowel gas pattern with [...] ulcers, no oral abnorma (more content not included)...[facility]08-22-2024 History of Present illness Narrative* Darcy Sandoval, [...] nephropathy, without long-term current use of insulin ([facility]) - POCT glycosylated hemoglobin (Hb A1C) [...] No follow-ups on file. documented in this encounterMissouri Baptist Medical [id number] Hospital Discharge instructions Patient Education 11/11/2023 13:51:14 [...] your health care provider. General instructions Take lixp-vpk-trfdcfd and prescription medicines only as told by [...] provider. Document Revised: 11/27/2020 Document Reviewed: 11/27/2020 [employer] Patient Education 2022 [employer]. Follow Up Care 10/14/2023 13:29:56 With:RAUL Ingram APRN, RIANNA Abad, URL Address: When: Unknown Comments:f/up in 3 mos [facility] 08-20-2024 NotePatient Education Obstetrics and Gynecology Overactive [...] health care provider. General instructions ? Take msic-sjs-zmsjpjr and prescription medicines only as told by [...] help your health care (more content not included)...[facility]06-26-2023 Hospital Discharge instructions Patient Education 09/16/2022 [...] your health care provider. General instructions Take wemg-zma-haaesps and prescription medicines only as told by [...] provider. Document Revised: 11/27/2020 Document Reviewed: 11/27/2020 [employer] Patient Education 2022 [employer]. Follow Up Care 04/26/2022 11:39:09 With:ERIK MENG, Umer Schultz, URL Address: [facility] [address], [place] [address]- When: Unknown [facility] NoteCONSULTATION CONSULTATION DATE: 05/23/2022 HISTORY: [...] otherwise indicated. Patient agrees with this plan.[id number] Hospital Discharge instructions Patient Education 04/26/2022 11:21:01 [...] urethra. Follow these instructions at home: Take ovhu-tkh-zsypyzu and prescription medicines only as told by [...] 03/10/2006 Document Revised: 02/02/2019 Document Reviewed: 04/14/2017 [employer] Patient Education 2019 [employer]. Follow Up Care 04/08/2022 14:01:00 With:ERIK MENG, Umer Schultz, URL Address: [address] [place] [address]- When: Unknown [facility] 01-16-2023 Hospital Discharge instructions Patient Education 04/08/2022 [...] urethra. Follow these instructions at home: Take hmby-vru-fzzofyv and prescription medicines only as told by [...] 03/10/2006 Document Revised: 02/02/2019 Document Reviewed: 04/14/2017 [employer] Patient Education 2020 [employer]. Follow Up Care 12/03/2021 14:11:02 With:ERIK MENG, Umer Schultz, URL Address: [facility] [address] [place] [address]- When: Unknown [facility] 11-01-2022 NoteCONSULTATION CONSULTATION DATE: 01/22/2022 CHIEF COMPLAINT: [...] to proceed. 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 He does not use heat or ice to his back at this time. Current medications include gabapentin 200 mg t.i.d., nabumetone 750 mg b.i.d., Point 5/325 t.i.d. Patient does use a walking [...] L3 and L4, L5. A refill for Point 5/325 t.i.d. will be sent today. He will receive an oral U-Tox in the office today. Supportive measures such as stretching, a menthol heat rub and heat application to his back were discussed. I did recommend a Boost supplement daily. Patient will be followed up in the office post procedure and agrees to move forward.[facility] [id number] Hospital Discharge instructions Patient Education 12/03/2021 13:45:30 [...] urethra. Follow these instructions at home: Take ubbz-oyb-tlrzwvi and prescription medicines only as told by [...] 03/10/2006 Document Revised: 02/02/2019 Document Reviewed: 04/14/2017 [employer] Patient Education 2020 [employer]. Follow Up Care 09/03/2021 14:17:23 With:ERIK MENG, Umer Schultz, KAYLYN Address: [facility] [address] [place] [address]- [phone] When:04/04/2022 Comments:PVR [facility] 07-12-2022 NoteCONSULTATION PROCEDURE DATE: 10/02/2021 PREOPERATIVE [...] Approved by: DR VINH HOLCOMB . 10/09/2021 09:28:00[facility]07-12-2022 NoteCONSULTATION CONSULTATION DATE: 10/02/2021 CHIEF COMPLAINT: Low [...] three times a day. We will re-prescribe Point 5/325 t.i.d. which he had received from [...] Approved by: DR VINH HOLCOMB . 10/09/2021 09:28:00[facility]06-13-2022 Hospital Discharge instructions Patient Education 09/03/2021 13:53:17 [...] 03/10/2006 Document Revised: 11/27/2018 Document Reviewed: 02/07/2017 [employer] Patient Education 2020 [employer]. 09/03/2021 13:53:06 Benign Prostatic Hyperplasia Benign Prostatic [...] urethra. Follow these instructions at home: Take laxf-kbb-aojaguz and prescription medicines only as told by [...] 03/10/2006 Document Revised: 02/02/2019 Document Reviewed: 04/14/2017 [employer] Patient Education 2020 [employer]. Follow Up Care 07/03/2021 15:21:16 With:Umer VALENCIA MD, URL Address: [facility] [address], [place] [address]- [phone] When:Within 3 Month(s) Comments:f/u in 3 months with PVR scan [facility] evaluation + Plan note Future Appointments Appointment Date:12/03/2021 01:15:00 PM Scheduled Provider:Umer VALENCIA MD Location:[facility] Appointment Type:URO Office Visit [facility] evaluation + Plan note Future Appointments Appointment Date:04/08/2022 12:45:00 PM Scheduled Provider:Umer VALENCIA MD Location:[facility]3][place]ue Appointment Type:URO Office Visit [facility] evaluation + Plan note Future Appointments Appointment Date:04/26/2022 10:15:00 AM Scheduled Provider:[facility] Office Visit [facility] evaluation + Plan note Future Appointments Appointment Date:07/22/2022 08:45:00 AM Scheduled Provider:Umer VALENCIA MD Location:[facility]3]evue Appointment Type:URO Office Visit [facility] evaluation + Plan note Future Appointments Appointment Date:12/20/2022 08:30:00 AM Scheduled Provider:Umer VALENCIA MD Location:[facility] Appointment Type:URO Office Visit [facility] evaluation + Plan note Future Appointments Appointment Date:11/11/2023 01:00:00 PM Scheduled Provider:RAUL Ingram APRN, Marianela X Location:[facility] Appointment Type:URO Office Visit [facility] evaluation + Plan note Future Appointments Appointment Date:02/10/2024 12:30:00 PM Scheduled Provider:RAUL Ingram APRN, Marianela X Location:[facility] Appointment Type:URO Office Visit [facility] evaluation note* Diagnosis Localized edema- Primary [...] anxiety, unspecified dementia severity, unspecified dementia type [place] Depression, unspecified depression type Essential hypertension Unspecified essential hypertension Type 2 diabetes mellitus without complication, without long-term current use of insulin ([facility]) [facility] encounter [facility]* Diagnosis Dementia without behavioral disturbance, psychotic disturbance, mood disturbance, or anxiety, unspecified dementia severity, unspecified dementia type ([facility])- Primary Falls, subsequent encounter Hypertension associated with 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 ([facility]) Back pain, unspecified back location, unspecified back pain laterality, unspecified chronicity documented in this encounter [facility]* Diagnosis Dementia without behavioral disturbance, psychotic disturbance, mood disturbance, or anxiety, unspecified dementia severity, unspecified dementia type ([facility] Primary Hypertension associated with 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 ([facility]) Falls, subsequent encounter documented [facility] this encounter [facility]* Diagnosis Bilateral lower extremity edema- Primary Type 2 diabetes mellitus with diabetic nephropathy, without long-term current use of insulin ([facility]) Hypokalemia Hypopotassemia documented in this encounter [facility]* Diagnosis Hypertension associated with 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 ([facility])- Primary Dementia without behavioral disturbance, psychotic disturbance, mood disturbance, or anxiety, unspecified dementia severity, unspecified dementia type ([facility]) Benign prostatic hyperplasia with lower urinary tract symptoms, symptom details unspecified Hypernatremia Hyperosmolality and/or hypernatremia documented in this encounter [facility] Narrative No data available for this section [facility] Hospital Discharge instructions No data available for this section [facility] InstructionsNot on filedocumented in this encounter [facility]InstructionsNot on filedocumented in this encounter [facility]InstructionsNot on filedocumented in this encounter [facility] SystemInstructionsNot on filedocumented in this encounter [facility] No data available for this section [facility] Summary Purpose Family History No Family [...] section and content) DATE CREATED AUTHOR 11/14/2020 [facility] DATE CREATED AUTHOR AUTHOR'S ORGANIZ ATION 08/02/2022 [facility] DATE CREATED AUTHOR AUTHOR'S ORGANIZ ATION 11/17/2023 [facility] DATE CREATED AUTHOR AUTHOR'S ORGANIZ ATION 11/24/2023 [facility] DATE CREATED AUTHOR AUTHOR'S ORGANIZ ATION 12/07/2023 [facility] DATE CREATED AUTHOR AUTHOR'S ORGANIZ ATION 01/31/2024 [facility] EPIC DATE CREATED AUTHOR AUTHOR'S ORGANIZ ATION 02/13/2024 [facility] Care Team (unrecognized sect ion and content) Filling Station Attendant Relationship Specialty Start Date End Date Juan Pablo Alaniz MD [address] [place] [address] PCP - Peg CHURCHILL 03/24/21 Juan Pablo Alaniz MD [address] [place] [address] PCP - General Internal Medicine 07/30/22 Filling Station Attendant Relationship Specialty Start Date End Date Juan Pablo Alaniz MD [address] [place] [address] PCP - Peg CHURCHILL 03/24/21 Juan Pablo Alaniz MD [address] [place] [address] PCP - General Internal Medicine 07/30/22 Filling Station Attendant Relationship Specialty Start Date End Date Juan Pablo Alaniz MD [address] [place] [address] PCP - Peg CHURCHILL 03/24/21 Juan Pablo Alaniz MD [address] [place] [address] PCP - General Internal Medicine 07/30/22 Filling Station Attendant Relationship Specialty Start Date End Date Juan Pablo Alaniz MD [address] [place] [address] PCP - Peg CHURCHILL 03/24/21 Juan Pablo Alaniz MD [address] [place] [address] PCP - General Internal Medicine 07/30/22 Filling Station Attendant Relationship Specialty Start Date End Date Juan Pablo Alaniz MD [address] [place] [address] PCP - Peg CHURCHILL 03/24/21 Juan Pablo Alaniz MD [address] [place] [address] PCP - General Internal Medicine 07/30/22 Filling Station Attendant Relationship Specialty Start Date End Date Juan Pablo Alaniz MD [address] [place] [address] PCP - Peg CHURCHILL 03/24/21 Juan Pablo Alaniz MD [address] [place] [address] PCP - General Internal Medicine 07/30/22 Filling Station Attendant Relationship Specialty Start Date End Date Juan Pablo Alaniz MD [address] [place] [address] PCP - Peg CHURCHILL 03/24/21 Juan Pablo Alaniz MD [address] [place] [address] PCP - General Internal Medicine 07/30/22 Filling Station Attendant Relationship Specialty Start Date End Date Juan Pablo Alaniz MD [address] [place] [address] PCP - Peg CHURCHILL 03/24/21 Juan Pablo Alaniz MD [address] [place] [address] PCP - General Internal Medicine 07/30/22 Filling Station Attendant Relationship Specialty Start Date End Date Juan Pablo Alaniz MD [address] [place] [address] PCP - Peg CHURCHILL 03/24/21 Juan Pablo Alaniz MD [address] [place] [address] PCP - General Internal Medicine 07/30/22 Filling Station Attendant Relationship Specialty Start Date End Date Juan Pablo Alaniz MD [address] [place] [address] PCP - Peg CHURCHILL 03/24/21 Juan Pablo Alaniz MD [address] [place] [address] PCP - General Internal Medicine 07/30/22 Filling Station Attendant Relationship Specialty Start Date End Date Juan Pablo Alaniz MD [address] [place] [address] PCP - Peg CHURCHILL 03/24/21 Juan Pablo Alaniz MD [address] [place] [address] PCP - General Internal Medicine 07/30/22 Filling Station Attendant Relationship Specialty Start Date End Date Michelle Deleon MD [address] [place] [address] PCP - General Psychiatry 11/28/23 Filling Station Attendant Relationship Specialty Start Date End Date Michelle Deleon MD [address] [place] [address] PCP - General Psychiatry 11/28/23 Reason for [...] BE BASED ON THE PRIMARY CLINICAL RECORDS. [employer] provides no warranty or guarantee of the accuracy or completeness of information in this document.
--- NOTE | 2024-04-28 06:40 | PC.NURSE ---
Pt transferred to M/S room 215. Bedside report provided to nursing staff.
[2024-04-28] MEDS: 0.9 % SODIUM CHLORIDE 1,000 ML 125 ML IV (07:20)
--- NOTE | 2024-04-28 08:25 | PM.HP ---
HPI H&P: HPI History of Present Illness Chief complaint: AMS, ACUTE RENAL FAILURE Narrative: Patient is an 83 y.o. white male with past medical history of pacemaker, Dementia, Chronic neck pain, NIDM type 2, GERD, HLD, GOUT, hypertension who presented to the emergency department last night after choking on dinner and became unresponsive. Per ER Note: Patient presented by EMS after he became unresponsive while sitting in a chair. The correction staff stated that he choked on his dinner earlier in the evening but then cleared his airway and he was sitting outside the nurses station. They were called away to see another patient and when they came back he was unresponsive. EMS was called. The patient was poorly responsive for them with hypotension. According to the patient's granddaughter he has been severely declining over the course of the past several weeks after a recent fall. Upon arrival the patient was noted to be hypotensive and moderately hypoxic. Respiratory therapy was called and a blood gas was ordered. He has metabolic acidosis with a pH of 7.246 with a mildly decreased pCO2. He was given a DuoNeb treatment and placed on supplemental oxygen. EKG was a paced rhythm. He was given 2 L of normal saline and his blood pressure remained low and he was started on Levophed. Empiric antibiotics to cover aspiration pneumonia with were given to him including vancomycin and imipenem. His white count is elevated at 11.4 with a mildly decreased hemoglobin of 9.1. There is not any sign of active bleeding. Sodium is elevated at 148. BUN and creatinine are markedly elevated at 85 and 4.18. Potassium is elevated at 7.2. Troponin is normal at 11.8. BNP is normal at 223. Lactic acid is elevated at 2.6. He is negative for COVID-19 and influenza. Chest x-ray was reviewed by radiology with no acute findings. He was treated for the hyperkalemia with IV sodium bicarbonate, 10 units of IV insulin, dextrose and calcium gluconate. He did become more responsive after this treatment. Blood pressure improved both after the treatment for the hyperkalemia and the pressors Patient is currently alone in the room. He opens eyes to voice, he says yes to all questions. After discussion with the family in the ER, patient became a DNRCC in the ER. I have placed a Call out to his son Wei and His other son Otis and awaiting reply's back. Opioid HPI Opioid Management Most Recent Pain and Opioid Data: Last Pain Scale 0 02/16/24 15:08 02/16/24 Last Pain Assessment 04/28/24 13:54 Last ORT Total Score 0 04/28/24 06:22 04/28/24 Last ORT Risk Category Low Risk 04/28/24 06:22 04/28/24 Ur Phencyclidine Scrn Negative (NEGATIVE) 07/26/23 08:10 07/26/23 Review of Systems ROS Status of ROS unobtainable due to medical condition PFSH [facility] Medical History (Updated 04/28/24 @ 08:40 by Yadira Sommers DO) Dementia ?F03.90 - Unspecified dementia, unspecified severity, without behavioral disturbance, psychotic disturbance, mood disturbance, and anxiety (ICD-10) CKD stage 3a, GFR 45-59 ml/min ?N18.31 - Chronic kidney disease, stage 3a (ICD-10) Cellulitis ?L03.90 - Cellulitis, unspecified (ICD-10) Pneumonia ?J18.9 - Pneumonia, unspecified organism (ICD-10) Generalized weakness ?R53.1 - Weakness (ICD-10) Accidental fall ?W19.XXXA - Unspecified fall, initial encounter (ICD-10) History of pacemaker ?Z95.0 - Presence of cardiac pacemaker (ICD-10) Vomiting ?R11.10 - Vomiting, unspecified (ICD-10) 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 (ICD-10) Low back pain ?M54.50 - Low back pain, unspecified (ICD-10) Dementia ?F03.90 - Unspecified dementia, unspecified severity, without behavioral disturbance, psychotic disturbance, mood disturbance, and anxiety (ICD-10) Depression ?F32.A - Depression, unspecified (ICD-10) Hyperuricemia ?E79.0 - Hyperuricemia without signs of inflammatory arthritis and tophaceous disease (ICD-10) HLD (hyperlipidemia) ?E78.5 - Hyperlipidemia, unspecified (ICD-10) Type 2 diabetes mellitus ?E11.9 - Type 2 diabetes mellitus without complications (ICD-10) HTN (hypertension) ?I10 - Essential (primary) hypertension (ICD-10) Surgical History Pacemaker ?Z95.0 - Presence of cardiac pacemaker (ICD-10) Social History Within the past year, how often did you have a drink containing alcohol: never Within the past year, how many standard drinks containing alcohol did you have on a typical day: 1 or 2 Within the past year, how often did you have six or more drinks on one occasion: never Total score: 0 Score interpretation: A score less than 4 is consistent with normal alcohol consumption. Smoking status: Never smoker Non-prescribed substance use: denies use Highest level of school completed/degree received: high school graduate Are you now , , , , never or living with a partner: Little interest or pleasure in doing things: not at all Feeling down, depressed, or hopeless: not at all Feel stressed/tense/nervous/anxious/difficulty sleeping: not at all Do you think of yourself as: straight/heterosexual Gender Identity: male Gender Identity Comment: Inability to assess at present time due to extent of pt's Dementia. Meds Home Medications and Allergies Home Medications ?Medication ?Instructions ?Recorded ?Confirmed ?Type allopurinol 300 mg tablet 300 mg PO DAILY 07/26/23 04/28/24 History docusate sodium 100 mg capsule 100 mg PO DAILY PRN constipation 07/26/23 04/28/24 History donepezil 10 mg tablet 10 mg PO BEDTIME 07/26/23 04/28/24 History fluoxetine 20 mg capsule 20 mg PO DAILY 07/26/23 04/28/24 History gabapentin 100 mg capsule 200 mg PO TID 07/26/23 04/28/24 History methocarbamol 500 mg tablet 500 mg PO BEDTIME 07/26/23 04/28/24 History omeprazole 40 mg capsule,delayed 40 mg PO .ACB 07/26/23 04/28/24 History release tamsulosin 0.4 mg capsule 0.4 mg PO DAILY 07/26/23 04/28/24 History candesartan 32 mg tablet (Atacand) 32 mg PO DAILY #30 tabs 10/07/23 04/28/24 Rx furosemide 40 mg tablet 40 mg PO DAILY 11/15/23 04/28/24 History potassium chloride 20 mEq 20 meq PO DAILY 11/15/23 04/28/24 History tablet,extended release(part/cryst) amlodipine 5 mg tablet 5 mg PO .QD 01/22/24 04/28/24 History atorvastatin 40 mg tablet 40 mg PO .QHS 01/22/24 04/28/24 History fluoxetine 10 mg capsule 10 mg PO DAILY 01/22/24 04/28/24 History trazodone 100 mg tablet 100 mg PO .QHS 01/22/24 04/28/24 History lidocaine 5 % topical patch 1 patch topical QAM 02/01/24 04/28/24 History magnesium oxide 400 mg (241.3 mg 400 mg PO BID #60 tabs 02/03/24 04/28/24 Rx magnesium) tablet acetaminophen 500 mg tablet 500 mg PO Q8H PRN pain 04/28/24 04/28/24 History Allergies Allergy/AdvReac Type Severity Reaction Status Date / Time Penicillins Allergy Intermediate Unknown Verified 04/14/24 02:12 Exam Narrative Exam Narrative: General: Patient is alert, but not oriented to person, or place or time Skin: no visible rashes, or ulcers Head: atraumatic, acephalic Eyes: PERRLA, no nystagmus present, conjunctiva clear, no scleral icterus Mouth/Throat: dry mucus membranes Neck: no masses palpated, normal thyroid Heart: Normal rate and rhythm, no murmurs/rubs/gallops Lungs: no audible wheezes, crackles and normal breath sounds all lung german Abdomen: Normal audible bowel sounds, no distension, No palpable masses, no organomegaly, no rebound/guarding/ or rigidity Musculoskeletal: lymphedema swelling bilateral lower extremities Neuro: CN cannot be assessed due to patient's mental status Constitutional Vital Signs, click to edit/add: Last Vital Signs Temp 96.3 F L 04/28/24 06:22 Pulse 76 04/28/24 06:22 Resp 16 04/28/24 06:22 BP 81/44 L 04/28/24 06:22 Pulse Ox 95 04/28/24 06:22 O2 Del Method Room Air 04/28/24 06:22 O2 Flow Rate 6 04/28/24 01:18 FiO2 6 04/28/24 00:09 Results Labs Labs: Short CBC 04/27/24 Range/Units 23:40 WBC 11.4 H (4.0-11.0) 10^3/uL Hgb 9.1 L (14.0-18.0) g/dL Hct 29.1 L (42.0-54.0) % Plt Count 71 L (150-450) 10^3/uL BMP 04/27/24 04/28/24 04/28/24 23:40 02:40 04:00 Sodium 148 H 148 H 146 H Potassium 7.2 H* 7.4 H* 7.8 H* Chloride 117 H 116 H 117 H Carbon Dioxide 22.2 23.9 19.3 L BUN 85.0 H* 88.0 H* 92.0 H* Creatinine 4.18 H 4.27 H 4.19 H Glucose 119 H 186 H 163 H Calcium 8.2 L 8.4 L 8.3 L 04/28/24 05:30 Sodium 149 H Potassium 7.6 H* Chloride 117 H Carbon Dioxide 23.4 BUN 90.0 H* Creatinine 4.25 H Glucose 186 H Calcium 8.3 L Liver Function 04/27/24 Range/Units 23:40 Total Bilirubin 0.3 (0.2-1.0) mg/dL AST 27 (15-37) U/L ALT 60 (16-63) U/L Alkaline Phosphatase 84 (46-116) U/L Albumin 2.5 L (3.4-5.0) g/dL Urine 04/28/24 Range/Units 00:15 Urine Color Dk. brown (YELLOW) Urine Clarity Clear (CLEAR) Urine pH 5.0 (5.0-9.0) Ur Specific [place] 1.020 (1.005-1.025) Urine Protein 30 A (NEG/TRACE) mg/dL Urine Glucose (UA) Negative (NEGATIVE) mg/dL ABG ABG results: 04/27/24 23:54 ABG pH 7.246 L* ABG pCO2 44.6 ABG pO2 76.5 L ABG HCO3 19.3 L ABG O2 Saturation 94.6 ABG Base Excess -8.0 L Assessment and Plan Assessment and Plan (1) Severe sepsis with acute organ dysfunction: Assessment and Plan: lactate on presentation was 2.6, hypotensive 60's/30's, WBC's 13.2; patient received fluid bolus and IVF. Lactate down to 1.6 this morning. Vancomycin and Imipenem started, Blood and urine cultures pending. Patient received levophed for hypotension but has since been weaned off. (2) Aspiration pneumonia: Assessment and Plan: chest X-ray initially clear but history of aspiration. Continue treatment with Vanc and Imipenum. Qualifiers: Aspiration pneumonia type: due to gastric secretions Laterality: unspecified laterality Lung location: unspecified part of lung Qualified Code(s): J69.0 - Pneumonitis due to inhalation of food and vomit (3) Acute metabolic encephalopathy: Assessment and Plan: Patient resided in Memory unit at [facility]. This is most likely his baseline. But sepsis can be contributing. (4) Hyperkalemia: Assessment and Plan: continue with IVF, patient received gluconate and insulin without improvement. K was 7.6. Patient most likely would need urgent dialysis which we do not do here, i am waiting to discuss plan of care with family. He is currently not able to take anything by mouth so not able to do Kayexalate. Will monitor. (5) Acute hypernatremia: Assessment and Plan: treat with D5W, most likely chronic, slow correction. (6) Acute kidney failure: Assessment and Plan: patient with known CKD stage 3 but Cr up to 4.25 BUN 90, This puts him at stage 5 and given his electrolyte abnormalities would need dialysis. Awaiting family decision if they want to pursue and transfer or comfort care only. Qualifiers: Acute renal failure type: unspecified Qualified Code(s): N17.9 - Acute kidney failure, unspecified (7) Metabolic acidosis: Assessment and Plan: per ABG with ph 7.2. (8) Hypothermia: Assessment and Plan: resolved with Radha hugger. Qualifiers: Encounter type: initial encounter Qualified Code(s): T68.XXXA - Hypothermia, initial encounter (9) Dementia: Assessment and Plan: in memory unit, holding all meds for now. Qualifiers: Alzheimer's disease onset: late onset Dementia behavioral or psychological symptom: with mood disturbance Dementia severity: moderate Dementia type: Alzheimer's Qualified Code(s): G30.1 - Alzheimer's disease with late onset; F02.B3 - Dementia in other diseases classified elsewhere, moderate, with mood disturbance (10) History of pacemaker: Assessment and Plan: ekg shows paced rhythm (11) HLD (hyperlipidemia): Assessment and Plan: holding home meds for now. Qualifiers: Hyperlipidemia type: unspecified Qualified Code(s): E78.5 - Hyperlipidemia, unspecified (12) Type 2 diabetes mellitus: Assessment and Plan: SSI as needed. Qualifiers: Chronic kidney disease stage: stage 3 (moderate) Chronic kidney disease stage 3 subtype: stage 3a (GFR 45-59) Diabetes mellitus complication detail: with chronic kidney disease Diabetes mellitus complication status: with kidney complications Diabetes mellitus mcc insulin use: with terminal [employer] supervisor use Qualified Code(s): E11.22 - Type 2 diabetes mellitus with diabetic chronic kidney disease; N18.31 - Chronic kidney disease, stage 3a; Z79.4 - MCFP (current) use of insulin (13) HTN (hypertension): Assessment and Plan: currently hypotensive Qualifiers: Hypertension type: primary hypertension Qualified Code(s): I10 - Essential (primary) hypertension (14) Anemia: Assessment and Plan: H&H stable at 9.1 Qualifiers: Anemia type: due to chronic kidney disease Chronic kidney disease stage: stage 5 (GFR < 15), not on chronic dialysis Qualified Code(s): N18.5 - Chronic kidney disease, stage 5; D63.1 - Anemia in chronic kidney disease Plan [facility], awaiting discussions today with family on how to best proceed with hospital care, possible hospice consult. Heparin for DVT prophylaxis. Urinary Catheter Management Urinary Catheter Management Urethral: Cath placed during this visit: yes Urethral indwelling: Yes Reason for continuing: acute urinary retention Insertion date: 04/28/24 Insertion time: 00:00
[2024-04-28] MEDS: HEPARIN SODIUM (PORCINE) 5,000 UNIT/ML VIAL 5000 UNIT SUBQ (09:06)
--- NOTE | 2024-04-28 09:08 | SWNOTE1 ---
SW reached out to [facility] (which is now [facility]) and she is [facility], private pay.
[2024-04-28 09:09] LABS: Hematocrit 31.3 % (42.0-54.0); Hemoglobin 9.7 g/dL (14.0-18.0); Mean Corpuscular Hemoglobin 31.7 pg (25.9-34.0); Mean Corpuscular Volume 102.3 fL (80.0-94.0); Mean Platelet Volume 12.9 fL (9.5-13.5); Platelet Count 66 10^3/uL (150-450); Red Blood Count 3.06 10^6/uL (4.70-6.10); Red Cell Distribution Width 15.7 % (11.0-15.0); White Blood Count 13.2 10^3/uL (4.0-11.0)
[2024-04-28 09:27] LABS: Band Neutrophils Absolute 0.4 10^3/uL (0.0-0.3); Segmented Neut Absolute Manual 12.14 10^3/uL (1.4-6.5)
[2024-04-28 09:28] LABS: Lymphocytes Absolute Manual 0.26 10^3/uL (1.20-3.80); Monocytes Absolute Manual 0.39 10^3/uL (0.30-0.80)
[2024-04-28 09:29] LABS: Alanine Aminotransferase 62 U/L (16-63); Albumin Globulin Ratio 0.9; Albumin Level 2.6 g/dL (3.4-5.0); Alkaline Phosphatase 88 U/L (46-116); Anion Gap 15.1; Aspartate Amino Transferase 34 U/L (15-37); BUN Creatinine Ratio 20.7; Bilirubin Total 0.3 mg/dL (0.2-1.0); Calcium 8.4 mg/dL (8.5-10.1); Carbon Dioxide 23.8 mmol/L (21.0-32.0); Chloride 118 mmol/L (98-107); Estimated GFR (African America 16 (>=60 mL/min/1.73m^2); Estimated GFR (Non-African Ame 13 (>=60 mL/min/1.73m^2); Globulin 2.9 g/dL; Glucose 146 mg/dL (74-106); Sodium 149 mmol/L (136-145); Total Protein 5.5 g/dL (6.4-8.2)
[2024-04-28 09:42] LABS: Potassium 7.9 mmol/L (3.5-5.1)
[2024-04-28 11:37] LABS: Glucometer 140 mg/dL (74-106)
--- NOTE | 2024-04-28 11:38 | RESP.RT ---
Pt is unable to follow instructions, cannot do PEP
--- NOTE | 2024-04-28 12:28 | CM.NOTE ---
Rounds made with Dr. Sommers, pt confused this AM. Dr. Sommers will reach out to family regarding plan of care.
--- NOTE | 2024-04-28 15:02 | SWNOTE1 ---
SW called and left message for pt's family member, Wei. Waiting for call back.
--- NOTE | 2024-04-28 15:14 | SWNOTE1 ---
Hospice order was placed. SW to speak with family in regards to hospice companies and who they would like to speak with.
--- NOTE | 2024-04-28 15:38 | SWNOTE1 ---
Important Message from [employer] reviewed and discussed with patient's son, Wei, via telephone. Wei verbalized understanding and SW signed the form that it was reviewed. Original placed in pt's room and copy placed in patient?s chart.
--- NOTE | 2024-04-28 15:39 | SWNOTE1 ---
SW and doctor stopped in pt's room, pt's son, Otis, was in room as well. Doctor spoke to Wei on phone and he is in [place]. Conversation in regards to pt's current status and plan going forward. Pt's 2 sons are in agreement they would like to move forward with Hospice. Otis does not have a preference on hospice companies and would like SW to call his brother. NATALYA called Wei while in room with Otis, no answer. NATALYA attempted to call again and was able to speak with Wei. Wei also does not have a preference, but does feel [facility] would be fine and possibility of inpt unit in [place]. SW to send referral. Referral sent to [facility]. Referral included face sheet, ED note, H&P, provider notes, case management report, nursing notes, diagnostic imaging, med list, DNRCC code status, and hospice order.
--- NOTE | 2024-04-28 15:42 | SWNOTE1 ---
SW updated [facility] and sent updates.
[2024-04-28] MEDS: SCOPOLAMINE 1 MG/3 DAYS TRANSDERM PATCH 1 PATCH TD (16:00)
[2024-04-28 20:06] LABS: A. calcoaceticus-baumannii Cpx NOT DETECTED (NOT DETECTE); Bacteroides fragilis NOT DETECTED (NOT DETECTE); Candida albicans NOT DETECTED (NOT DETECTE); Candida auris NOT DETECTED (NOT DETECTE); Candida glabrata NOT DETECTED (NOT DETECTE); Candida krusei NOT DETECTED (NOT DETECTE); Candida parapsilosis NOT DETECTED (NOT DETECTE); Candida tropicalis NOT DETECTED (NOT DETECTE); Cryptococcus neoformans/gattii NOT DETECTED (NOT DETECTE); Enterobacter cloacae complex NOT DETECTED (NOT DETECTE); Enterobacterales NOT DETECTED (NOT DETECTE); Enterococcus faecalis NOT DETECTED (NOT DETECTE); Enterococcus faecium NOT DETECTED (NOT DETECTE); Haemophilus influenzae NOT DETECTED (NOT DETECTE); Klebsiella aerogenes NOT DETECTED (NOT DETECTE); Klebsiella pneumoniae group NOT DETECTED (NOT DETECTE); Listeria monocytogenes NOT DETECTED (NOT DETECTE); Neisseria meningitidis NOT DETECTED (NOT DETECTE); Proteus spp. NOT DETECTED (NOT DETECTE); Pseudomonas aeruginosa NOT DETECTED (NOT DETECTE); Salmonella spp. NOT DETECTED (NOT DETECTE); Serratia marcescens NOT DETECTED (NOT DETECTE); Staphylococcus lugdunensis NOT DETECTED (NOT DETECTE); Stenotrophomonas maltophilia NOT DETECTED (NOT DETECTE); Streptococcus agalactiae NOT DETECTED (NOT DETECTE); Streptococcus pneumoniae NOT DETECTED (NOT DETECTE); Streptococcus pyogenes NOT DETECTED (NOT DETECTE); Streptococcus spp. NOT DETECTED (NOT DETECTE)
[2024-04-28] MEDS: LORAZEPAM 2 MG/ML VIAL 0.5 MG IV (20:30)
[2024-04-28 21:47] LABS: Source BLOOD
[2024-04-28 21:49] LABS: Staphylococcus spp. DETECTED (NOT DETECTE); mecA/C DETECTED (NOT DETECTE)
[2024-04-28 21:50] LABS: Staphylococcus epidermidis DETECTED (NOT DETECTE)
[2024-04-29 04:00] VITALS: BP 75/45; PULSE 95; O2SAT 94
--- NOTE | 2024-04-29 08:04 | PC.NURSE ---
RN entered patients room to find he had passed. Lack of heartbeat with auscultation confirmed with Two RNs. No pulse palpated
--- NOTE | 2024-04-29 08:45 | PM.DS1 ---
DS: Providers Provider Date of admission: 04/28/24 06:00 Primary care physician: JASON CRUZ Admitting clinician: Yadira Sommers Consults: 04/28/24 02:49 Consult to Pharmacy Routine Consulting Provider: La Nena Epperson Reason for consultation: Primaxin dosing/monitoring 04/28/24 14:43 Speech Therapy Eval and Treat Routine Reason for consultation: dysphagia, possible aspiration Has provider been notified: No 04/28/24 15:01 Consult to Hospice Routine Reason for consultation: End stage renal disease, metabolic encephalopathy, dementia, sepsis Has provider been notified: No Discharging clinician: Yadira Sommers DS: Diagnosis Discharge Diagnosis (1) Severe sepsis with acute organ dysfunction: (2) Aspiration pneumonia: Qualifiers: Aspiration pneumonia type: due to gastric secretions Laterality: unspecified laterality Lung location: unspecified part of lung Qualified Code(s): J69.0 - Pneumonitis due to inhalation of food and vomit (3) Acute metabolic encephalopathy: (4) Hyperkalemia: (5) Acute hypernatremia: (6) Acute kidney failure: Qualifiers: Acute renal failure type: unspecified Qualified Code(s): N17.9 - Acute kidney failure, unspecified (7) Metabolic acidosis: (8) Hypothermia: Qualifiers: Encounter type: initial encounter Qualified Code(s): T68.XXXA - Hypothermia, initial encounter (9) Dementia: Qualifiers: Alzheimer's disease onset: late onset Dementia behavioral or psychological symptom: with mood disturbance Dementia severity: moderate Dementia type: Alzheimer's Qualified Code(s): G30.1 - Alzheimer's disease with late onset; F02.B3 - Dementia in other diseases classified elsewhere, moderate, with mood disturbance (10) History of pacemaker: (11) HLD (hyperlipidemia): Qualifiers: Hyperlipidemia type: unspecified Qualified Code(s): E78.5 - Hyperlipidemia, unspecified (12) Type 2 diabetes mellitus: Qualifiers: Chronic kidney disease stage: stage 3 (moderate) Chronic kidney disease stage 3 subtype: stage 3a (GFR 45-59) Diabetes mellitus complication detail: with chronic kidney disease Diabetes mellitus complication status: with kidney complications Diabetes mellitus residential insulin use: with residential use Qualified Code(s): E11.22 - Type 2 diabetes mellitus with diabetic chronic kidney disease; N18.31 - Chronic kidney disease, stage 3a; Z79.4 - pearl technician (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 white male with past medical history of pacemaker, Dementia, Chronic neck pain, NIDM type 2, GERD, HLD, GOUT, hypertension who presented to the emergency department last night after choking on dinner and became unresponsive. Per ER Note: Patient presented by EMS after he became unresponsive while sitting in a chair. The [facility] staff stated that he choked on his dinner earlier in the evening but then cleared his airway and he was sitting outside the nurses station. They were called away to see another patient and when they came back he was unresponsive. EMS was called. The patient was poorly responsive for them with hypotension. According to the patient's granddaughter he has been severely declining over the course of the past several weeks after a recent fall. Upon arrival the patient was noted to be hypotensive and moderately hypoxic. Respiratory therapy was called and a blood gas was ordered. He has metabolic acidosis with a pH of 7.246 with a mildly decreased pCO2. He was given a DuoNeb treatment and placed on supplemental oxygen. EKG was a paced rhythm. He was given 2 L of normal saline and his blood pressure remained low and he was started on Levophed. Empiric antibiotics to cover aspiration pneumonia with were given to him including vancomycin and imipenem. His white count is elevated at 11.4 with a mildly decreased hemoglobin of 9.1. There is not any sign of active bleeding. Sodium is elevated at 148. BUN and creatinine are markedly elevated at 85 and 4.18. Potassium is elevated at 7.2. Troponin is normal at 11.8. BNP is normal at 223. Lactic acid is elevated at 2.6. He is negative for COVID-19 and influenza. Chest x-ray was reviewed by radiology with no acute findings. He was treated for the hyperkalemia with IV sodium bicarbonate, 10 units of IV insulin, dextrose and calcium gluconate. He did become more responsive after this treatment. Blood pressure improved both after the treatment for the hyperkalemia and the pressors . I spoke with Sons Wei and Otis yesterday. I have given them all options including urgent transfer for dialysis to tertiary care center and Patient's imminent condition. Both are in agreement for Comfort Care only and for hospice consult. Social work and I both spoke with sons and consult to Hospice was made yesterday. I discontinued all medications and ordered comfort care medications only, stopped lab draws per family request. I spoke with Otis at 1453 and Otis 1315 on 04/28/24. Hospice was not able to make it, Patient this morning 04/29/24 at 0800. Home and family has been contacted per nursing staff and hospital protocol. Status at Discharge Overall status at discharge: other Time Spent with Patient Time attestation: Total time spent providing and/or coordinating discharge services: Exam Narrative Exam Narrative: Patient . Constitutional Vital Signs, click to edit/add: Last Vital Signs Temp 97.7 F 04/28/24 20:00 Pulse 95 H 04/29/24 04:00 Resp 12 04/29/24 04:00 BP 75/45 L 04/29/24 04:00 Pulse Ox 94 L 04/29/24 04:00 O2 Del Method Nasal Cannula 04/29/24 04:00 O2 Flow Rate 2 04/29/24 04:00 FiO2 6 04/28/24 00:09 DS: Data Data Completed and Pending Labs on day of discharge: Labs from last 24 hours 04/28/24 04/28/24 04/28/24 11:35 09:01 00:04 WBC 13.2 H RBC 3.06 L Hgb 9.7 L Hct 31.3 L MCV 102.3 H MCH 31.7 MCHC 31.0 RDW 15.7 H Plt Count 66 L MPV 12.9 Seg Neuts % (Manual) 92.0 H Band Neutrophils % 3.0 Lymphocytes % (Manual) 2.0 L Monocytes % (Manual) 3.0 Eosinophils % (Manual) 0.0 L Basophils % (Manual) 0.0 L Neutrophils # (Manual) 12.14 H Band Neutrophils # 0.4 H Lymphocytes # (Manual) 0.26 L Monocytes # (Manual) 0.39 Eosinophils # (Manual) 0.00 Basophils # (Manual) 0.00 Sodium 149 H Potassium 7.9 H* Chloride 118 H Carbon Dioxide 23.8 Anion Gap 15.1 BUN 89.0 H* Creatinine 4.30 H Est GFR ( Amer) 16 L Est GFR (Non-Af Amer) 13 L BUN/Creatinine Ratio 20.7 Glucose 146 H Calcium 8.4 L Total Bilirubin 0.3 AST 34 ALT 62 Alkaline Phosphatase 88 Total Protein 5.5 L Albumin 2.6 L Globulin 2.9 Albumin/Globulin Ratio 0.9 Specimen Source Blood A.calcoaceticus-baumannii cmplx PCR Not detected Bacteroides fragilis Not detected Martine albicans (PCR) Not detected Martine auris (PCR) Not detected C. glabrata (PCR) Not detected C. krusei (PCR) Not detected C. parapsilosis (PCR) Not detected C. tropicalis (PCR) Not detected C. neoform/gattii (PCR) Not detected Enterobacterales (PCR) Not detected E. cloacae complex PCR Not detected Enterococc faecalis PCR Not detected Enterococc faecium PCR Not detected E. coli (PCR) Not detected H. influenzae (PCR) Not detected Klebsiella aerogenes (PCR) Not detected Klebsiella oxytoca PCR Not detected K. pneumoniae group (PCR) Not detected List. monocytogenes PCR Not detected N. meningitidis (PCR) Not detected Proteus spp. (copies/mL) Not detected Salmonella spp. (PCR) Not detected Serratia marcescens PCR Not detected Staphylococcus sp PCR Detected A* Staph aureus (PCR) Not detected mecA/C & MREJ Resist Gene Not applicable mecA/C-Methicil Resis Gene Detected A* mcr-1 Colistin Res Gene PCR Not applicable Staph epidermidis (PCR) Detected A* Staph lugdunensis (TEM-PCR) Not detected S. maltophilia (PCR) Not detected Streptococcus sp PCR Not detected Strep agalactiae (PCR) Not detected Strep pneumoniae (PCR) Not detected S. pyogenes (PCR) Not detected P. aeruginosa (PCR) Not detected Penelope/B-Vanco Res Genes Not applicable blaIMP Car res Gene PCR Not applicable KPC (blaKPC) Detect PCR Not applicable NDM (blaNDM) Detect PCR Not applicable OXA-48 Carbapenem Resis Gene (PCR) Not applicable blaVIM Car Res Gene PCR Not applicable CTX-M ESBL (PCR) Not applicable POC Glucose 140 H Preliminary micro results at discharge 04/28/24 00:04 Blood Culture Result 2 - Preliminary Blood - Right Forearm Discharge Plan Discharge Disposition: Discharge Date/Time: 04/29/24 10:46 Date/Time: 04/29/24 08:00
--- NOTE | 2024-04-29 08:52 | PC.NURSE ---
[facility] contacted
--- NOTE | 2024-04-29 09:02 | SWNOTE1 ---
Pt , SW notified [facility] and left voicemail for [facility].
== END 2024-04-29 10:46 | disposition expired | DRG 871 ==
LOC: ER 04-28 02:59 → MS 04-28 06:21
PROVIDERS: Admitting Provider Family Medicine; Emergency Provider Emergency Medicine; PCP Internal Medicine; Visit Provider Family Medicine
DX: A41.9 Sepsis, unspecified organism (principal); G93.41 Metabolic encephalopathy; J69.0 Pneumonitis due to inhalation of food and vomit; N17.9 Acute kidney failure, unspecified; E87.20 Acidosis, unspecified; E87.0 Hyperosmolality and hypernatremia; F02.B3 Dementia in other diseases classified elsewhere, moderate, with mood disturbance; N18.5 Chronic kidney disease, stage 5; I12.0 Hypertensive chronic kidney disease with stage 5 chronic kidney disease or end stage renal disease; R65.20 Severe sepsis without septic shock; E87.5 Hyperkalemia; Z66 Do not resuscitate; Z95.0 Presence of cardiac pacemaker; K21.9 Gastro-esophageal reflux disease without esophagitis; E78.5 Hyperlipidemia, unspecified; M10.9 Gout, unspecified; Z91.81 History of falling; R09.02 Hypoxemia; Z87.01 Personal history of pneumonia (recurrent); E11.22 Type 2 diabetes mellitus with diabetic chronic kidney disease; R68.0 Hypothermia, not associated with low environmental temperature; G30.1 Alzheimer's disease with late onset; Z79.4 Long term (current) use of insulin; D63.1 Anemia in chronic kidney disease
CPT/HCPCS: 36415; 36600; 51702; 71045; 80048; 80053; 81001; 82805; 82948; 83605; 83880; 84484; 85007; 85025; 85027; 87040; 87086; 87150; 87186; 87804; 87811; 93005; 94640; 94761; 96365; 96366; 96368; 96375; 96376; 99285; J0612; J0743; J1644; J1817; J2060; J3370